=== PATIENT | female | born 1960 | race African-American/Black ===

== ENCOUNTER → 2016-06-09 | Outpatient (CLI) | payer OTHER ==
[~2016-06-09] MED LIST: ALBINS/ INH; ATOR-22 PO; ATR25 PO; CARV3.122 PO; DIGO0.122 PO; DIPH25TA24 PO; DSY/150 PO; FRS/40 PO; IBUP-1459 PO; LOSA1TAB PO; POTA20TA16 PO; RIVA1TAB4 PO
[2016-06-09 12:12] LABS: BASO % 0.1 %; BASO ABS # 0.02 K/uL (0-0.2); COMPLETE YES; EOS % 0.4 %; IG% 0.3 %; LYMPH % 12.1 %; LYMPH ABS # 2.43 K/uL (1.2-3.4); MEAN CELL VOLUME 87.2 fL (80-100); MEAN CORPUSCULAR HGB CONC 34.4 g/dl (32-36); MEAN PLATELET VOLUME 9.9 fL (7.4-10.4); MONO % 8.6 %; NEUT % 78.5 %; PLATELET COUNT 278 K/uL (130-400); WHITE BLOOD COUNT 20.11 K/uL (4.8-10.8)
[2016-06-09 12:20] LABS: INR 2.4 (0.9-1.1); PROTHROMBIN TIME (PATIENT) 27.1 SECONDS (9.0-12.0)
[2016-06-09 12:36] LABS: ALT/SGPT 16 U/L (12-78); AST/SGOT 8 U/L (15-37); BLOOD UREA NITROGEN 15 mg/dl (7-18); BUN/CREATININE RATIO 11.9 (10-20); CALCIUM 9.6 mg/dl (8.5-10.1); CARBON DIOXIDE 27 mmol/L (21-32); CHLORIDE 100 mmol/L (98-107); GLUCOSE 91 mg/dl (70-99); POTASSIUM 4.2 mmol/L (3.5-5.1); SODIUM 138 mmol/L (136-145)
[2016-06-09 12:39] LABS: ALB/GLOB RATIO 0.7 (0.9-2); ALKALINE PHOSPHATASE 95 U/L (45-117)
== END | disposition home or self-care (01) ==
LOC: C.LAB1850 11:13
PROVIDERS: ATTEND Internal Medicine
DX: M79.1 Myalgia (principal); I48.91 Unspecified atrial fibrillation; I50.22 Chronic systolic (congestive) heart failure; G47.00 Insomnia, unspecified; I25.5 Ischemic cardiomyopathy; I42.0 Dilated cardiomyopathy; M79.604 Pain in right leg

== ENCOUNTER → 2016-07-06 | Outpatient (CLI) | payer OTHER ==
--- NOTE | 2016-07-06 11:04 | DIAGNOSTIC IMAGING REPORT ---
CERVICAL SPINE 7 VIEWS HISTORY: Peripheral neuropathy R20.0 Left arm numbness COMPARISON: None. FINDINGS: The cervical spine is visualized from C1 through the superior endplate of T1. There is no fracture. No subluxation. Disc spaces are preserved. Prevertebral soft tissues and the atlantodens interval are intact. IMPRESSION: No fracture or subluxation within the cervical spine. Electronically signed by: Osmar Kapoor M.D. 07/06/2016 11:03 AM Dictated Date/Time: 07/06/2016 11:02 AM
== END | disposition home or self-care (01) ==
LOC: C.LAB1850 10:29
PROVIDERS: ATTEND Internal Medicine
DX: R20.0 Anesthesia of skin (principal)

== ENCOUNTER → 2016-08-16 | Outpatient (CLI) | payer OTHER ==
[2016-08-16 10:46] LABS: BASO % 0.3 %; BASO ABS # 0.03 K/uL (0-0.2); COMPLETE YES; EOS % 1.7 %; HEMATOCRIT 40.4 % (37-47); IG% 0.2 %; LYMPH % 25.5 %; LYMPH ABS # 2.49 K/uL (1.2-3.4); MEAN CELL VOLUME 84.5 fL (80-100); MEAN CORPUSCULAR HEMOGLOBIN 28.9 pg (25-34); MEAN CORPUSCULAR HGB CONC 34.2 g/dl (32-36); MEAN PLATELET VOLUME 9.8 fL (7.4-10.4); MONO % 8.7 %; NEUT % 63.6 %; PLATELET COUNT 270 K/uL (130-400); RED BLOOD COUNT 4.78 M/uL (4.2-5.4); WHITE BLOOD COUNT 9.76 K/uL (4.8-10.8)
[2016-08-16 11:13] LABS: ESTIMATED AVERAGE GLUCOSE 120 mg/dl; HA1C FLAG Normal (Normal)
[2016-08-16 11:41] LABS: ALKALINE PHOSPHATASE 76 U/L (45-117); ALT/SGPT 16 U/L (12-78); AST/SGOT 8 U/L (15-37); BLOOD UREA NITROGEN 14 mg/dl (7-18); BUN/CREATININE RATIO 16.6 (10-20); CALCIUM 8.9 mg/dl (8.5-10.1); CARBON DIOXIDE 34 mmol/L (21-32); CHLORIDE 101 mmol/L (98-107); CHOLESTEROL 212 mg/dl (0-200); CHOLESTEROL/HDL RATIO 3.4; CREATININE 0.87 mg/dl (0.60-1.20); GLUCOSE 90 mg/dl (70-99); HDL CHOLESTEROL 63 mg/dl; POTASSIUM 3.7 mmol/L (3.5-5.1); SODIUM 140 mmol/L (136-145)
[2016-08-16 11:47] LABS: ALB/GLOB RATIO 0.7 (0.9-2); LDL CHOLESTEROL CALCULATED 109 mg/dl; TRIGLYCERIDES 198 mg/dl (0-150); VERY LOW DENSITY LIPOPROT CALC 40 mg/dl
== END | disposition home or self-care (01) ==
LOC: C.LAB1850 09:42
PROVIDERS: ATTEND Urology
DX: Z51.81 Encounter for therapeutic drug level monitoring (principal); Z79.899 Other long term (current) drug therapy

== ENCOUNTER → 2016-10-08 | Outpatient (CLI) | payer OTHER ==
[2016-10-08 12:18] LABS: INR 1.6 (0.9-1.1); PROTHROMBIN TIME (PATIENT) 17.2 SECONDS (9.0-12.0)
== END | disposition home or self-care (01) ==
LOC: C.LAB1850 11:15
PROVIDERS: ATTEND Internal Medicine Cardiovascular Disease
DX: I48.91 Unspecified atrial fibrillation (principal)

== ENCOUNTER → 2017-02-16 | Outpatient (CLI) | payer OTHER ==
--- NOTE | 2017-02-16 11:50 | DIAGNOSTIC IMAGING REPORT ---
RIGHT HIP UNILATERAL 2 VIEWS CLINICAL HISTORY: Right hip pain COMPARISON: None. DISCUSSION: No acute fractures or dislocations are visualized. Mild periosteal irregularity just inferior to the lesser trochanter, likely relates to an insertion site. IMPRESSION: 1. No acute fractures or subluxations 2. Normal joint space for age Electronically signed by: Amrit Benitez M.D. 02/16/2017 11:49 AM Dictated Date/Time: 02/16/2017 11:48 AM
== END | disposition home or self-care (01) ==
LOC: C.RAD1850 11:36
PROVIDERS: ATTEND Physician Assistant
DX: M25.551 Pain in right hip (principal)

== ENCOUNTER → 2017-07-04 | Day surgery (SDC) | payer OTHER ==
[2017-06-21 10:48] VITALS: Ht 172.7 cm; Wt 117.3 kg
[~2017-07-04] VITALS: Ht 172.7 cm; Wt 117.3 kg
[~2017-07-04] MED LIST changes: -ALBINS/ INH; -ATOR-22 PO; +ATOR10TA82 PO; -ATR25 PO; +CLEANSE PO; -DIGO0.122 PO; +DIPH1TAB87 PO; -DIPH25TA24 PO; +DOCU-94 PO; -DSY/150 PO; +ETOMIDATE 2 MG/ML 20 ML VIAL IV ONE; +GABA1CAP5 PO; +GLC/500 PO; +HYDR50CA2 PO; -IBUP-1459 PO; +LIDOCAINE HCL 2% 2 ML VIAL (20MG/ML) ONE; +LNX125 PO; -LOSA1TAB PO; +MIDAZOLAM HCL 1 MG/ML 2ML VIAL ONE; +ONDANSETRON INJ 2 MG/ML 2 ML VIAL ONE; -POTA20TA16 PO; +PRLSR20 PO; +PROPOFOL IV EMULSION 10 MG/ML 20 ML VIAL IV ONE; +QUET1TAB32 PO; +QUET1TAB37 PO; +SPIR25TA PO; +TRAZ-122 PO; +[UNRECOGNIZED DRUG - OTHER] PO
--- NOTE | 2017-07-04 08:41 | Endo History and Physical ---
History & Physical Date of Service: Jul 04, 2017. Chief Complaint: Screening Referring Physician: Dr. Gayle History of Present Illness 56 yo female who presents for screening colonoscopy. Past Surgical History Hx Cardiac Surgery: Yes (DEFIB) Hx Internal Defibrillator: Yes ([employer] 2006) Hx Pacemaker: No Hx Abdominal Surgery: Yes (FALLOPIAN TUBE REMOVAL, HERNIA REPAIR X2) Hx of Implantable Prosthesis: No Hx Post-Op Nausea and Vomiting: No Hx Cancer Surgery: No Hx Thoracic Surgery: No Hx Orthopedic: Yes (LT ANKLE SURGERY) Hx Urinary Tract Surgery: No Family History None Social History Smoking Status: Former Smoker Hx Substance Use: No Hx Alcohol Use: Yes (OCCASIONAL) Allergies Coded Allergies: Fentanyl (Verified Allergy, Mild, RASH, 06/21/17) Current Medications Reported Home Medications Medications Dose Route/Sig Max Daily Dose Days Date Category Prilosec (Omeprazole) 20 Mg Capcr 20 Mg PO QAM 06/21/17 Reported [Cleanse] 2 Tab PO HS 06/21/17 Reported [Forskolin Extract] 2 Tab PO QAM 06/21/17 Reported Benadryl Allergy (Diphenhydramine Hcl) 25 Mg Tab 1 Tab PO QAM 06/21/17 Reported Aldactone (Spironolactone) 25 Mg Tab 0.5 Tab PO QAM 06/21/17 Reported Digoxin 0.125 Mg Tab 1 Tab PO QAM 06/21/17 Reported Vistaril (Hydroxyzine Pamoate) 50 Mg Cap 50 Mg PO HS 06/21/17 Reported Seroquel (Quetiapine Fumarate) 300 Mg Tab 300 Mg PO HS 06/21/17 Reported Seroquel (Quetiapine Fumarate) 50 Mg Tab 50 Mg PO QAM 06/21/17 Reported Colace (Docusate Sodium) 100 Mg Cap 1 Cap PO BID 06/21/17 Reported Glucophage (Metformin Hcl) 500 Mg Tab 500 Mg PO BID 06/21/17 Reported Neurontin (Gabapentin) 400 Mg Cap 400 Mg PO BID 06/21/17 Reported Lipitor (Atorvastatin Calcium) 10 Mg Tab 10 Mg PO QAM 06/21/17 Reported Desyrel (Trazodone Hcl) 100 Mg Tab 100 Mg PO HS 06/21/17 Reported Xarelto (Rivaroxaban) 20 Mg Tab 20 Mg PO QAM 01/12/16 Reported Coreg (Carvedilol) 3.125 Mg Tab 3.125 Mg PO QAM 08/12/09 Reported Lasix (Furosemide) 40 Mg Tab 40 Mg PO BID 08/06/09 Reported Vital Signs Weight (Kilograms): 117.27 Height (Feet): 5 Height (Inches): 8 Physical Exam General Appearance: WD/WN, no apparent distress Respiratory/Chest: Auscultation: breath sounds normal Cardiovascular: Heart Auscultation: RRR Abdomen: Bowel Sounds: normal Inspection & Palpation: soft, non-distended, no tenderness, guarding & rebound Assessment and Plan Assessment: 56 yo female who presents for screening colonoscopy. Plan: Proceed with colonoscopy.
--- NOTE | 2017-07-04 10:06 | Discharge Instructions ---
Endoscopy Patient Instructions Date / Procedure(s) Performed Jul 04, 2017. Colonoscopy Allergy Information Coded Allergies: Fentanyl (Verified Allergy, Mild, RASH, 06/21/17) Discharge Date / Findings Jul 04, 2017. Diverticulosis Fair bowel prep Medication Instructions Stopped Medication(s): Jeyralmoriah last 07/02 OK to resume all medications today as prescribed Reported Home Medications Medications Dose Route/Sig Max Daily Dose Days Date Category Prilosec (Omeprazole) 20 Mg Capcr 20 Mg PO QAM 06/21/17 Reported [Cleanse] 2 Tab PO HS 06/21/17 Reported [Forskolin Extract] 2 Tab PO QAM 06/21/17 Reported Benadryl Allergy (Diphenhydramine Hcl) 25 Mg Tab 1 Tab PO QAM 06/21/17 Reported Aldactone (Spironolactone) 25 Mg Tab 0.5 Tab PO QAM 06/21/17 Reported Digoxin 0.125 Mg Tab 1 Tab PO QAM 06/21/17 Reported Vistaril (Hydroxyzine Pamoate) 50 Mg Cap 50 Mg PO HS 06/21/17 Reported Seroquel (Quetiapine Fumarate) 300 Mg Tab 300 Mg PO HS 06/21/17 Reported Seroquel (Quetiapine Fumarate) 50 Mg Tab 50 Mg PO QAM 06/21/17 Reported Colace (Docusate Sodium) 100 Mg Cap 1 Cap PO BID 06/21/17 Reported Glucophage (Metformin Hcl) 500 Mg Tab 500 Mg PO BID 06/21/17 Reported Neurontin (Gabapentin) 400 Mg Cap 400 Mg PO BID 06/21/17 Reported Lipitor (Atorvastatin Calcium) 10 Mg Tab 10 Mg PO QAM 06/21/17 Reported Desyrel (Trazodone Hcl) 100 Mg Tab 100 Mg PO HS 06/21/17 Reported Xarelto (Rivaroxaban) 20 Mg Tab 20 Mg PO QAM 01/12/16 Reported Coreg (Carvedilol) 3.125 Mg Tab 3.125 Mg PO QAM 08/12/09 Reported Lasix (Furosemide) 40 Mg Tab 40 Mg PO BID 08/06/09 Reported Provider Instructions Activity Restrictions - No exercising or heavy lifting for 24 hours. - Do not drink alcohol the day of the procedure. - Do not drive a car or operate machinery until the day after the procedure. - Do not make any important decisions or sign important papers in 24 hours after the procedure. Following Day: - Return to full activity which may include returning to work/school. Diet Start your diet with liquids and light foods (jello, soup, juice, toast). Then eat your usual diet if not nauseated. Treatment For Common After Affects For mild abdominal pain, bloating, or excessive gas: - Rest - Eat lightly - Lie on right side Follow-Up Information Follow-up with Nalini as scheduled Anesthesia Information What You Should Know You have had a procedure that required some medicine to reduce anxiety and discomfort. This treatment is called moderate sedation. After receiving the treatment, you may be sleepy, but you will be able to breathe on your own. The effects of the treatment may last for several hours. Follow these instructions along with Activity/Diet recommendations noted above: * Do NOT do anything where dizziness or clumsiness would be dangerous. * Rest quietly at home today, then you can be up and about tomorrow. * Have a responsible person stay with you the rest of today. * You may have had an I.V. today. If so, you may take the dressing off later today. Recommendations Call your doctor if: * Trouble breathing * Continuous vomiting for more than 24 hours * Temperature above 101 degrees * Severe abdominal pain or bloating * Pain not relieved by pain medicine ordered * There is increased drainage or redness from any incision * A large amount of rectal bleeding greater than 2-3 tablespoons. (If you had a polyp/s removed or have hemorrhoids, a small amount of blood - from the rectum is to be expected.) * You have any unanswered questions or concerns. IN THE EVENT OF A SERIOUS EMERGENCY, GO TO THE NEAREST EMERGENCY ROOM Your discharge instructions were prepared by provider Harmeet Can. Patient Instructions Signature Page Grazyna Carson Patient (or Guardian) Signature/Date: I have read and understand the instructions given to me by my caregivers. Caregiver/RN/Doctor Signature/Date: The above-named patient and/or guardian has received patient instructions on this date. + Original Patient Signature Page (only) stays with chart. Please make copy for patient.
--- NOTE | 2017-07-04 10:16 | GI REPORT ---
Procedure Date: 07/04/2017 9:36 AM Procedure: Colonoscopy Indications: Screening for colorectal malignant neoplasm Medicines: Monitored Anesthesia Care Complications: No immediate complications. Estimated Blood Loss: Estimated blood loss: none. Procedure: Pre-Anesthesia Assessment: - Prior to the procedure, a History and Physical was performed, and patient medications and allergies were reviewed. The patient's tolerance of previous anesthesia was also reviewed. The risks and benefits of the procedure and the sedation options and risks were discussed with the patient. All questions were answered, and informed consent was obtained. Prior Anticoagulants: The patient has taken Xarelto (rivaroxaban), last dose was 2 days prior to procedure. ASA Grade Assessment: IV - A patient with severe systemic disease that is a constant threat to life. After reviewing the risks and benefits, the patient was deemed in satisfactory condition to undergo the procedure. After I obtained informed consent, the scope was passed under direct vision. Throughout the procedure, the patient's blood pressure, pulse, and oxygen saturations were monitored continuously. The scope was introduced through the anus and advanced to the cecum, identified by appendiceal orifice and ileocecal valve. The colonoscopy was performed without difficulty. The patient tolerated the procedure well. The quality of the bowel preparation was fair. The ileocecal valve, appendiceal orifice, and rectum were photographed. Findings: The perianal and digital rectal examinations were normal. A moderate amount of solid stool was found in the cecum, precluding visualization. Lavage of the area was performed using a large amount of normal saline, resulting in incomplete clearance with continued poor visualization. Multiple small-mouthed diverticula were found in the entire colon. Impression: - Preparation of the colon was fair. - Stool in the cecum. - Diverticulosis in the entire examined colon. - No specimens collected. Recommendation: - Resume previous diet. - Continue present medications. - Repeat colonoscopy in 3 years for surveillance. - Return to primary care physician as previously scheduled. Harmeet Can, DO 07/04/2017 10:15:38 AM This report has been signed electronically. Note Initiated On: 07/04/2017 9:36 AM I attest to the content of the Intraoperative Record and orders documented therein, exceptions below
[2017-07-04 10:39] VITALS: BP 106/71; PULSE 96; O2SAT 95
--- NOTE | 2017-07-04 10:50 | Anesthesiology Progress Note ---
Anesthesia Post Op Note Date & Time Jul 04, 2017 at 10:50 Vital Signs Pain Intensity: 0 Vital Signs Past 12 Hours Date Time Temp Pulse Resp B/P (MAP) Pulse Ox O2 Delivery O2 Flow Rate FiO2 07/04/17 10:39 96 20 106/71 (83) 95 Room Air 07/04/17 10:25 92 20 112/75 (87) 95 Room Air 07/04/17 10:09 92 16 108/69 (82) 98 Mask 4 07/04/17 08:39 36.6 101 20 122/94 (103) 94 Room Air Notes Mental Status: alert / awake / arousable, participated in evaluation Pt Amnestic to Procedure: Yes Nausea / Vomiting: adequately controlled Pain: adequately controlled Airway Patency, RR, SpO2: stable & adequate BP & HR: stable & adequate Hydration State: stable & adequate Anesthetic Complications: no major complications apparent
== END | disposition home or self-care (01) ==
LOC: C.GI 08:00
PROVIDERS: ATTEND Internal Medicine
DX: Z12.11 Encounter for screening for malignant neoplasm of colon (principal); K57.30 Diverticulosis of large intestine without perforation or abscess without bleeding; I42.9 Cardiomyopathy, unspecified; Z79.01 Long term (current) use of anticoagulants; Z87.891 Personal history of nicotine dependence

== ENCOUNTER 2017-07-06 12:04 | Emergency (ER) | payer OTHER ==
[~2017-07-06] VITALS: Ht 172.7 cm; Wt 117.6 kg
[~2017-07-06 12:04] MED LIST changes: -ETOMIDATE 2 MG/ML 20 ML VIAL IV ONE; -LIDOCAINE HCL 2% 2 ML VIAL (20MG/ML) ONE; -MIDAZOLAM HCL 1 MG/ML 2ML VIAL ONE; -ONDANSETRON INJ 2 MG/ML 2 ML VIAL ONE; -PROPOFOL IV EMULSION 10 MG/ML 20 ML VIAL IV ONE
[2017-07-06 12:12] VITALS: TEMP 36.4; Ht 172.7 cm; Wt 117.6 kg
[2017-07-06] MEDS ORDERED: LOSA1TAB PO (12:32)
--- NOTE | 2017-07-06 12:47 | EMERGENCY ROOM VISIT NOTE ---
History Report prepared by Pepe: Rober Burnette Under the Supervision of: Dr. Neno Chung M.D. First contact with patient: 12:40 Chief Complaint: ARM PAIN Stated Complaint: BLOOD CLOTS, ARM & TOE NAIL History of Present Illness The patient is a 56 year old female who presents to the Emergency Room with complaints of blood clots in her hands and feet that started 6 hours ago. The patient states she had a colonoscopy 2 days ago. The patient states she is regularly taking Xarelto for congestive heart failure and states she has an enlarged heart. She states she has not missed a dose of her medication. She denies, fevers, chills, cough, and congestion. She states her SOB is unchanged from baseline. Source of History: patient Onset: 6 hours ago Position: hand, foot Timing: constant Associated Symptoms: + SOB (unchanged from baseline), No fevers, No chills, No cough Note: Patient denies congestion. Review of Systems See HPI for pertinent positives and negatives. A total of ten systems were reviewed and were otherwise negative. 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 (12) Schizoaffective Disorder, Unspecified Surgical Problems: (1) Aortocoronary Bypass (2) Cardiac Pacemaker In Situ Social History Smoking Status: Former Smoker Occupation Status: employed Current/Historical Medications Scheduled Atorvastatin (Lipitor), 10 MG PO QAM Carvedilol (Coreg), 3.125 MG PO QAM Digoxin (Digoxin), 1 TAB PO QAM Diphenhydramine Hcl (Benadryl Allergy), 1 TAB PO QAM Docusate Sodium (Colace), 1 CAP PO BID Furosemide (Lasix), 40 MG PO BID Gabapentin (Neurontin), 400 MG PO BID Hydrocortisone Acetate (Rectal (Anusol-Hc), 1 SUPP PA BID Hydroxyzine Pamoate (Vistaril), 50 MG PO HS Losartan Potassium (Cozaar), 25 MG PO DAILY Metformin Hcl (Glucophage), 500 MG PO BID Omeprazole (Prilosec), 20 MG PO QAM Quetiapine Fumarate (Seroquel), 50 MG PO QAM Quetiapine Fumarate (Seroquel), 300 MG PO HS Rivaroxaban (Xarelto), 20 MG PO QAM Spironolactone (Aldactone), 0.5 TAB PO QAM Trazodone Hcl (Desyrel), 100 MG PO HS Allergies Coded Allergies: Fentanyl (Verified Allergy, Mild, RASH, 07/06/17) Physical Exam Vital Signs Date Time Temp Pulse Resp B/P (MAP) Pulse Ox O2 Delivery O2 Flow Rate FiO2 07/06/17 15:44 90 18 126/79 94 07/06/17 13:34 94 18 122/79 94 Room Air 07/06/17 12:12 36.4 95 18 107/64 94 Room Air Physical Exam GENERAL: Awake, alert, well-appearing, in no distress HENT: Normocephalic, atraumatic. Oropharynx unremarkable. EYES: Normal conjunctiva. Sclera non-icteric. NECK: Supple. No nuchal rigidity. FROM. No JVD. RESPIRATORY: Clear to auscultation. CARDIAC: Regular rate, normal rhythm. Extremities warm and well perfused. Pulses equal. ABDOMEN: Soft, non-distended. No tenderness to palpation. No rebound or guarding. No masses. RECTAL: Deferred. MUSCULOSKELETAL: Chest examination reveals no tenderness. The back is symmetrical on inspection without obvious abnormality. There is no CVA tenderness to palpation. No joint edema. 2 cm contusion with area fluctuance on area of lateral aspect of right forearm consistent with hematoma. Distal PNS in tact. No proximal swelling or pain. LOWER EXTREMITIES: Calves are equal size bilaterally and non-tender. No edema. No discoloration. NEURO: Normal sensorium. No sensory or motor deficits noted. SKIN: No rash or jaundice noted. Medical Decision & Procedures ER Provider Diagnostic Interpretation: Radiology results as stated below per my review and radiologist interpretation: ULTRASOUND RIGHT UPPER EXTREMITY VENOUS CLINICAL HISTORY: Right arm pain and swelling. COMPARISON STUDY: No priors. TECHNIQUE: Real-time, grayscale, and color Doppler sonography of the deep veins of the right upper extremity is performed. Compression and augmentation were utilized. FINDINGS: There is no sonographic evidence of deep venous thrombosis identified in the right upper extremity. The right internal jugular, axillary, and brachial veins are patent and normally compressible. Normal venous waveforms and augmentation are seen within the right subclavian vein. The cephalic and basilic veins are clear. The visualized radial and ulnar veins are patent. IMPRESSION: There is no sonographic evidence of deep venous thrombosis identified in the right upper extremity. Electronically signed by: Sunny Williamson M.D. 07/06/2017 2:30 PM Dictated Date/Time: 07/06/2017 2:30 PM ED Course 1240: The patient was evaluated in room B10. A complete history and physical exam was performed. 1441: I reevaluated the patient. Discussed results and discharge instructions: She verbalized understanding and agreement. The patient is ready for discharge. Medical Decision I reviewed the patient's past medical history, medications, and the nursing notes as described above. The patient's presentation and history were concerning for hematoma, contusion, superficial thrombosis, and deep vein thrombosis. The patient is a 56-year-old woman with a past medical history of CHF, A. fib on Xarelto who presents emergency Department with concern for pain and swelling in her right arm after having an IV placed for a colonoscopy 2 days prior to arrival per hpi. On arrival the patient is in no acute distress, afebrile stable vital signs. The patient has a 2 cm area of ecchymosis with underlying fluctuance consistent with a hematoma in her right AC from recent IV attempt. No proximal swelling or pain. Duplex negative for DVT. Plan for warm compress, NIKO bandage, and pcp f/u. As an aside, patient is requesting Rx for hydrocortisone suppository for itching related to her chronic hemorrhoids. Findings and plan for follow-up reviewed with patient. Patient agreeable and d/c 'd per discharge instructions. Medication Reconcilliation Current Medication List: was personally reviewed by me Blood Pressure Screening Patient's blood pressure: Normal blood pressure Blood pressure disposition: Did not require urgent referral Impression Primary Impression: Hematoma of arm Scribe Attestation The scribe's documentation has been prepared under my direction and personally reviewed by me in its entirety. I confirm that the note above accurately reflects all work, treatment, procedures, and medical decision making performed by me. Departure Information Dispostion Home / Self-Care Prescriptions Hydrocortisone Acetate (Rectal (ANUSOL-HC) 25 Mg Sup 1 SUPP PA BID for 14 Days, #28 SUPP Prov: Neno Chung M.D. 07/06/17 Referrals RV. Roper MD (PCP) Patient Instructions ED Hematoma, [facility] Additional Instructions Please follow up with your primary care physician in the next 1-3 days for re- evaluation. You have a small hematoma from your recent blood draw. Otherwise, your exam and ultrasound did not show signs of an emergent condition at this time. Acetaminophen for pain as needed. Warm compresses and niko bandage to help with resolution of hematoma. Return to the emergency department for worsening symptoms as described in the accompanying instructions.
--- NOTE | 2017-07-06 14:32 | DIAGNOSTIC IMAGING REPORT ---
ULTRASOUND RIGHT UPPER EXTREMITY VENOUS CLINICAL HISTORY: Right arm pain and swelling. COMPARISON STUDY: No priors. TECHNIQUE: Real-time, grayscale, and color Doppler sonography of the deep veins of the right upper extremity is performed. Compression and augmentation were utilized. FINDINGS: There is no sonographic evidence of deep venous thrombosis identified in the right upper extremity. The right internal jugular, axillary, and brachial veins are patent and normally compressible. Normal venous waveforms and augmentation are seen within the right subclavian vein. The cephalic and basilic veins are clear. The visualized radial and ulnar veins are patent. IMPRESSION: There is no sonographic evidence of deep venous thrombosis identified in the right upper extremity. Electronically signed by: Sunny Williamson M.D. 07/06/2017 2:30 PM Dictated Date/Time: 07/06/2017 2:30 PM
[2017-07-06] MEDS ORDERED: HYDR25SU20 PR (15:07)
[2017-07-06 15:44] VITALS: BP 126/79; PULSE 90; O2SAT 94
== END 2017-07-06 15:45 | disposition home or self-care (01) ==
LOC: C.EDB 12:07
DX: T14.8XXA Other injury of unspecified body region, initial encounter (principal); X58.XXXA Exposure to other specified factors, initial encounter; F41.9 Anxiety disorder, unspecified; J45.909 Unspecified asthma, uncomplicated; F31.9 Bipolar disorder, unspecified; I50.9 Heart failure, unspecified; I10 Essential (primary) hypertension; F43.10 Post-traumatic stress disorder, unspecified; E78.00 Pure hypercholesterolemia, unspecified; F32.9 Major depressive disorder, single episode, unspecified; F25.9 Schizoaffective disorder, unspecified; Z87.891 Personal history of nicotine dependence

== ENCOUNTER → 2017-09-16 | Day surgery (SDC) | payer OTHER ==
[2017-08-19 10:53] VITALS: BMI 39.0
--- NOTE | 2017-08-19 11:23 | PAT Medication Instructions ---
Service Date Aug 19, 2017. Current Home Medication List Atorvastatin (Lipitor), 10 MG PO QAM Carvedilol (Coreg), 3.125 MG PO BID Digoxin (Digoxin), 1 TAB PO QAM Diphenhydramine Hcl (Benadryl Allergy), 1 TAB PO QAM Docusate Sodium (Colace), 1 CAP PO BID Furosemide (Lasix), 40 MG PO BID Gabapentin (Neurontin), 400 MG PO BID Hydroxyzine Pamoate (Vistaril), 50 MG PO HS Losartan Potassium (Cozaar), 25 MG PO QAM Metformin Hcl (Glucophage), 500 MG PO BID Omeprazole (Prilosec), 20 MG PO QAM Quetiapine Fumarate (Seroquel), 50 MG PO QAM Quetiapine Fumarate (Seroquel), 300 MG PO HS Rivaroxaban (Xarelto), 20 MG PO QAM Spironolactone (Aldactone), 0.5 TAB PO QAM Trazodone Hcl (Desyrel), 200 MG PO HS Medication Instructions For Your Scheduled Surgery - Check with surgeon and prescribing physician for instructions: Rivaroxaban (Xarelto), 20 MG PO QAM - Hold the following medications the morning of surgery: Diphenhydramine Hcl (Benadryl Allergy), 1 TAB PO QAM Docusate Sodium (Colace), 1 CAP PO BID Furosemide (Lasix), 40 MG PO BID Losartan Potassium (Cozaar), 25 MG PO QAM Metformin Hcl (Glucophage), 500 MG PO BID Spironolactone (Aldactone), 0.5 TAB PO QAM - Take the following medications the morning of surgery with a sip of water: Quetiapine Fumarate (Seroquel), 50 MG PO QAM Omeprazole (Prilosec), 20 MG PO QAM Gabapentin (Neurontin), 400 MG PO BID Digoxin (Digoxin), 1 TAB PO QAM Carvedilol (Coreg), 3.125 MG PO BID Atorvastatin (Lipitor), 10 MG PO QAM - Take the following medications as scheduled the night before surgery: Trazodone Hcl (Desyrel), 200 MG PO HS Quetiapine Fumarate (Seroquel), 300 MG PO HS Hydroxyzine Pamoate (Vistaril), 50 MG PO HS Gabapentin (Neurontin), 400 MG PO BID Docusate Sodium (Colace), 1 CAP PO BID Carvedilol (Coreg), 3.125 MG PO BID If you have any questions please call us at [phone] or [phone] or [phone]
[2017-08-19 12:08] LABS: BASO % 0.2 %; BASO ABS # 0.02 K/uL (0-0.2); EOS % 2.6 %; EOS ABS # 0.23 K/uL (0-0.5); HEMATOCRIT 39.1 % (37-47); IG# 0.02 K/uL (0.00-0.02); MEAN CELL VOLUME 85.4 fL (80-100); MEAN CORPUSCULAR HEMOGLOBIN 28.4 pg (25-34); MEAN CORPUSCULAR HGB CONC 33.2 g/dl (32-36); MEAN PLATELET VOLUME 9.2 fL (7.4-10.4); MONO % 4.2 %; MONO ABS # 0.37 K/uL (0.11-0.59); NEUT % 66.8 %; NEUT ABS # 5.92 K/uL (1.4-6.5); PLATELET COUNT 320 K/uL (130-400); RED CELL DISTRIBUTION WIDTH CV 15.1 % (11.5-14.5); RED CELL DISTRIBUTION WIDTH SD 47.1 fL (36.4-46.3); WHITE BLOOD COUNT 8.86 K/uL (4.8-10.8)
[2017-08-19 12:19] LABS: INR 1.2 (0.9-1.1)
[2017-08-19 12:27] LABS: HEMOGLOBIN A1C 6.1 % (4.5-5.6)
[2017-08-19 13:07] LABS: CALCIUM 9.4 mg/dl (8.5-10.1); CREATININE 0.84 mg/dl (0.60-1.20); POTASSIUM 3.9 mmol/L (3.5-5.1)
--- NOTE | 2017-09-15 10:01 | HISTORY & PHYSICAL EXAMINATION ---
DATE OF ADMISSION: 09/16/2017 CHIEF COMPLAINT AND PREOPERATIVE DIAGNOSIS: Cubital tunnel syndrome of the left elbow. HISTORY OF PRESENT ILLNESS: Grazyna is a 56-year-old female who has been having numbness in the ulnar nerve distribution of her hand for about a year. Over the past 2 months, it has gotten to the point where it is constantly numb. It wakes her up on a nightly basis. EMG showed bilateral cubital tunnel syndrome. After failing conservative treatment, she elected to proceed with open cubital tunnel release in situ. PAST MEDICAL HISTORY: Significant for heart disease, rheumatoid arthritis, mental disorders, and blood clots. PAST SURGICAL HISTORY: Significant for surgery to her ankle and defibrillator placement. ALLERGIES: FENTANYL. MEDICATIONS: Include gabapentin, metformin, Colace, trazodone, Seroquel, Vistaril, Coreg, digoxin, atorvastatin, Lasix, spironolactone, Xarelto, Benadryl, losartan, omeprazole. FAMILY HISTORY: Significant for heart disease and blood clots. SOCIAL HISTORY: She is , rarely drinks. Does little activity and is currently disabled. REVIEW OF SYSTEMS: She complains mostly of numbness in her left hand. All other pertinent review of systems are negative. PHYSICAL EXAMINATION: CONSTITUTIONAL: Well-developed, well-nourished female, in no apparent distress. HEENT: Pupils equal, round, reactive to light. Extraocular movements intact. Oral mucosa is pink and moist. HEART: Regular rate per radial pulse. LUNGS: Carmen symmetrically bilaterally with no audible breath sounds. ABDOMEN: Soft, nontender, nondistended. MUSCULOSKELETAL: On physical examination of her elbow, she has full range of motion. She does have a positive Tinel sign at the cubital tunnel. She has numbness that extends up the ulnar nerve distribution into the left hand. Spurling and Lhermitte sign is negative. EMG study of the left upper extremity does show compressive neuropathy of the ulnar nerve at the cubital tunnel of the left elbow. IMPRESSION: Cubital tunnel syndrome of the left elbow. PLAN: Will proceed with an open cubital tunnel release in situ. Postoperatively, she will be placed in a soft dressing and discharged to home on oral pain medications.
[~2017-09-16] VITALS: Ht 172.7 cm; Wt 115.8 kg
[~2017-09-16] MED LIST changes: +ACETAMINOPHEN 500 MG TAB PO SCH; +ATROPINE SULFATE 0.1 MG/ML 5ML SYR IV PRN; +BUPIVACAINE 0.25% 30 ML VIAL ONE; +CEFAZOLIN 2000MG IV PUSH 15 ML IV SCH; -CLEANSE PO; +EpHEDrine SULFATE INJ 50 MG/ML AMP IV PRN; +EpINEphrine HCL INJ 1 MG/ML 1ML SYRINGE ONE; +EpINEphrine INJ 1MG/ML AMP 1 MG/ML AMP ONE; +FAMOTIDINE 20 MG TAB PO SCH; +FLUMAZENIL 0.1 MG/1 ML 10 ML VIAL IV PRN; +GABA-1220 PO; -GABA1CAP5 PO; +GABAPENTIN 600 MG PO SCH; +HYDROmorphone INJ 2 MG/ML SYR/VIAL IV PRN; +KETOROLAC TROMETHAMINE 30 MG/ML VIAL IV. PRN; +LABETALOL HCL IV 5 MG/ML 20ML IV PRN; +LACTATED RINGER'S 1000ML 1,000 ML IV SCH; +LACTATED RINGER'S 1000ML IV SCH; +LIDOCAINE HCL 2% 2 ML VIAL (20MG/ML) ONE; +LOSA1TAB PO; +MIDAZOLAM HCL 1 MG/ML 2ML VIAL ONE; +NALOXONE HCL 0.4 MG/1 ML VIAL/CARP IV PRN; +ONDANSETRON INJ 2 MG/ML 2 ML VIAL IV PRN; +OXYC-57 PO; +OXYCODONE/ACETAMINOPHEN 5-325 TAB PO PRN; +PROMETHAZINE HCL INJ 12.5 MG in SODIUM CHLORIDE 0.9% 50ML 50 ML IV PRN; +PROPOFOL IV EMULSION 10 MG/ML 20 ML VIAL IV ONE; +SODIUM CHLORIDE 0.9% 1000ML 1,000 ML IV SCH; -[UNRECOGNIZED DRUG - OTHER] PO; +[UNRECOGNIZED DRUG - REMARK] OPB
[2017-09-16 09:00] VITALS: BP 111/72; PULSE 91; TEMP 36.8; O2SAT 93; Ht 172.7 cm; Wt 115.8 kg
--- NOTE | 2017-09-16 11:03 | History & Physical Bridge Note ---
H&P Re-Evaluation Bridge Note: I have examined the patient, reviewed the History & Physical and in the interval since the performance of the History & Physical I have noted the following changes of clinical significance: No changes noted
--- NOTE | 2017-09-16 11:55 | [facility] Post Operative Brief Note ---
Immediate Operative Summary Operative Date Sep 16, 2017. Pre-Operative Diagnosis Left Cubital Tunnel Syndrome Post-Operative Diagnosis same as preop Procedure(s) Performed Left Cubital Tunnel Release Surgeon Dr Walls Reed Fixer Surgeon(s) Jose Luis Dwoling Pa-C Estimated Blood Loss 5 ml Findings Consistent with Post-Op Diagnosis Specimens None per surgeon Drains None Anesthesia Type General Complication(s) none Disposition Disposition: Recovery Room / PACU
--- NOTE | 2017-09-16 12:06 | Discharge Instructions ---
Discharge Instructions Date of Service Sep 16, 2017. Admission Reason for Admission: Left Wrist Cubital Tunnel Syndrome Discharge Discharge Diagnosis / Problem: SAME ABOVE Discharge Goals Goal(s): Decrease discomfort, Improve function Activity Recommendations Activity Limitations: as noted below Lifting Limitations: until after follow-up appointment Exercise/Sports Limitations: until after follow-up appointment Shower/Bathe: may shower/bathe in 3 days . Instructions / Follow-Up Instructions / Follow-Up MEDICATIONS: * Resume previous medications unless instructed otherwise by your surgeon. * Always take pain medication on a full stomach or with food to avoid upset stomach. * Do not drink alcohol or drive while taking narcotics. * Ibuprofen or Tylenol may be taken if narcotic not needed. SPECIAL CARE INSTRUCTIONS: __ None _X_ Keep extremity elevated and iced x 48 hours; apply ice 20-30 minutes 8-10 times/day. May remove at night. _X_ Sling (WEAR NEEDED FOR COMFORT) __24 hrs/day __ Remove at night __ Shoulder Immobilizer __ 24 hrs/day __ Remove at night _X_ Dressing __ Maintain until seen in office, may shower with plastic over site _X_ Remove dressings in 72 hours and then may shower _X_ Cover incisions with band-aids after showering __ Do not remove steri-strips Call physician if chills or temperature rises above 102 degrees or pain unrelieved by prescribed pain medications at . . Current Hospital Diet Patient's current hospital diet: Discharge Diet Recommended Diet: AHA Diet (Heart Healthy) Procedures Procedures Performed: Left Cubital Tunnel Release Pending Studies Studies pending at discharge: no Laboratory Results Hemoglobin A1c Test 08/19/17 11:31 Range/Units Estimated Average Glucose 128 mg/dl Hemoglobin A1c 6.1 H 4.5-5.6 % Work Instructions Return To Work: after follow-up Lifting Limitations: no more than 10 pounds Medical Emergencies . Who to Call and When: Medical Emergencies: If at any time you feel your situation is an emergency, please call 911 immediately. . Non-Emergent Contact Non-Emergency issues call your: Primary Care Provider Call Non-Emergent contact if: you have a fever, temperature is above 101.5 . "Provider Documentation" section prepared by Jose Luis Dowling. .
[2017-09-16 12:43] VITALS: BP 122/85; PULSE 96; TEMP 36.5; O2SAT 92
--- NOTE | 2017-09-16 13:00 | Anesthesiology Progress Note ---
Anesthesia Post Op Note Date & Time Sep 16, 2017 at 12:59 Vital Signs Pain Intensity: 7.0 Vital Signs Past 12 Hours Date Time Temp Pulse Resp B/P (MAP) Pulse Ox O2 Delivery O2 Flow Rate FiO2 09/16/17 12:43 36.5 96 18 122/85 92 Room Air 09/16/17 12:30 93 16 119/83 95 Room Air 09/16/17 12:20 93 16 121/82 99 Oxymask 7 09/16/17 12:10 95 16 120/87 95 Oxymask 7 09/16/17 12:00 36.7 98 16 121/89 97 Oxymask 7 09/16/17 09:00 36.8 91 20 111/72 (85) 93 Room Air Notes Mental Status: alert / awake / arousable, participated in evaluation Pt Amnestic to Procedure: Yes Nausea / Vomiting: adequately controlled Pain: adequately controlled Airway Patency, RR, SpO2: stable & adequate BP & HR: stable & adequate Hydration State: stable & adequate Anesthetic Complications: no major complications apparent
[2017-09-16 13:13] VITALS: BP 103/80; PULSE 90; TEMP 36.5; O2SAT 92
--- NOTE | 2017-09-16 13:14 | OPERATIVE REPORT ---
DATE OF OPERATION: 09/16/2017 PREOPERATIVE DIAGNOSIS: Cubital tunnel syndrome of the left elbow. POSTOPERATIVE DIAGNOSIS: Same. PROCEDURE: Open cubital tunnel release in situ. SURGEON: Giuseppe Walls DO SOFTWARE MANAGER: Brandan Dowling PA-C, whose assistance was necessary for positioning are palpable with retraction and closure. ANESTHESIA: General. COMPLICATIONS: None. CONDITION: Stable to PACU. INDICATIONS: Grazyna is a pleasant 56-year-old female who presented to my office with complaints of numbness and paresthesias in the ulnar nerve distribution of her left arm. EMG study showed cubital tunnel syndrome of the left elbow. After failing extensive conservative treatment, she elected to undergo an open cubital tunnel release. On 09/16/2017, she arrived at [facility] for the above procedure. She was seen in preoperative holding and the operative extremity was identified and signed. She was given a preoperative antibiotic, taken back to the operating room, laid on the table in supine position and put under general anesthesia. The left elbow was prepped and draped in sterile fashion. Time-out was done. The patient's operative extremity was properly identified. A curvilinear incision was made directly over the cubital tunnel of the left elbow. Dissection was taken down through the fat layer until the fascia was exposed. Hardy's fascia was then released with a knife and tenotomy scissors. Care was taken not to damage the ulnar nerve. Fascia was released both proximally and distally through the flexor pronator mass. Complete release was ensured both proximally and distally. After the ulnar nerve was completely freed up, I flexed the elbow to 140 degrees and there was no subluxation of the ulnar nerve. Once again, I checked both proximally and distally and the nerve was completely freed up. The wound was then irrigated. Surrounding soft tissues were injected with 30 mL of 0.25% Marcaine with epinephrine. The tourniquet was deflated. Hemostasis was controlled. Skin was closed with 3-0 Vicryl and a 4-0 nylon suture in a mattress fashion. She was placed in a soft compressive dressing, extubated, transferred to a [facility] and taken to the postanesthesia care unit in stable condition. She tolerated the procedure well. I attest to the content of the Intraoperative Record and any orders documented therein. Any exception s are noted below.
== END | disposition home or self-care (01) ==
LOC: C.ACU 08:32
PROVIDERS: ATTEND Orthopaedic Surgery
DX: G56.22 Lesion of ulnar nerve, left upper limb (principal); I10 Essential (primary) hypertension; M06.9 Rheumatoid arthritis, unspecified; Z79.01 Long term (current) use of anticoagulants; Z86.711 Personal history of pulmonary embolism; F41.9 Anxiety disorder, unspecified; K21.9 Gastro-esophageal reflux disease without esophagitis; Z98.51 Tubal ligation status; Z88.5 Allergy status to narcotic agent; I50.9 Heart failure, unspecified; I48.91 Unspecified atrial fibrillation; E78.5 Hyperlipidemia, unspecified; F31.9 Bipolar disorder, unspecified; Z87.891 Personal history of nicotine dependence

== ENCOUNTER → 2017-10-14 | Outpatient (CLI) | payer OTHER ==
[~2017-10-14] MED LIST changes: -ACETAMINOPHEN 500 MG TAB PO SCH; -ATROPINE SULFATE 0.1 MG/ML 5ML SYR IV PRN; -BUPIVACAINE 0.25% 30 ML VIAL ONE; -CEFAZOLIN 2000MG IV PUSH 15 ML IV SCH; -EpHEDrine SULFATE INJ 50 MG/ML AMP IV PRN; -EpINEphrine HCL INJ 1 MG/ML 1ML SYRINGE ONE; -EpINEphrine INJ 1MG/ML AMP 1 MG/ML AMP ONE; -FAMOTIDINE 20 MG TAB PO SCH; -FLUMAZENIL 0.1 MG/1 ML 10 ML VIAL IV PRN; +FORSKOLIN PO; -GABAPENTIN 600 MG PO SCH; -HYDROmorphone INJ 2 MG/ML SYR/VIAL IV PRN; -KETOROLAC TROMETHAMINE 30 MG/ML VIAL IV. PRN; -LABETALOL HCL IV 5 MG/ML 20ML IV PRN; -LACTATED RINGER'S 1000ML 1,000 ML IV SCH; -LACTATED RINGER'S 1000ML IV SCH; -LIDOCAINE HCL 2% 2 ML VIAL (20MG/ML) ONE; -MIDAZOLAM HCL 1 MG/ML 2ML VIAL ONE; -NALOXONE HCL 0.4 MG/1 ML VIAL/CARP IV PRN; -ONDANSETRON INJ 2 MG/ML 2 ML VIAL IV PRN; -OXYCODONE/ACETAMINOPHEN 5-325 TAB PO PRN; -PROMETHAZINE HCL INJ 12.5 MG in SODIUM CHLORIDE 0.9% 50ML 50 ML IV PRN; -PROPOFOL IV EMULSION 10 MG/ML 20 ML VIAL IV ONE; -SODIUM CHLORIDE 0.9% 1000ML 1,000 ML IV SCH
[2017-10-14 12:31] LABS: BASO % 0.2 %; BASO ABS # 0.02 K/uL (0-0.2); EOS % 1.4 %; EOS ABS # 0.12 K/uL (0-0.5); HEMATOCRIT 39.2 % (37-47); IG# 0.01 K/uL (0.00-0.02); LYMPH ABS # 2.37 K/uL (1.2-3.4); MEAN CORPUSCULAR HEMOGLOBIN 28.2 pg (25-34); MEAN CORPUSCULAR HGB CONC 33.2 g/dl (32-36); MEAN PLATELET VOLUME 9.6 fL (7.4-10.4); MONO ABS # 0.59 K/uL (0.11-0.59); NEUT % 63.3 %; NEUT ABS # 5.36 K/uL (1.4-6.5); PLATELET COUNT 281 K/uL (130-400); RED CELL DISTRIBUTION WIDTH CV 15.9 % (11.5-14.5); RED CELL DISTRIBUTION WIDTH SD 49.2 fL (36.4-46.3); WHITE BLOOD COUNT 8.47 K/uL (4.8-10.8)
[2017-10-14 13:33] LABS: ALBUMIN 3.3 gm/dl (3.4-5.0); ALT/SGPT 25 U/L (12-78); AST/SGOT 17 U/L (15-37); BLOOD UREA NITROGEN 10 mg/dl (7-18); CALCIUM 9.1 mg/dl (8.5-10.1); CARBON DIOXIDE 34 mmol/L (21-32); CHOLESTEROL 160 mg/dl (0-200); CREATININE 0.79 mg/dl (0.60-1.20); GLUCOSE 96 mg/dl (70-99); POTASSIUM 2.7 mmol/L (3.5-5.1); SODIUM 141 mmol/L (136-145)
[2017-10-14 13:45] LABS: ALKALINE PHOSPHATASE 85 U/L (45-117); LDL CHOLESTEROL CALCULATED 76 mg/dl; TOTAL PROTEIN 7.9 gm/dl (6.4-8.2)
== END | disposition home or self-care (01) ==
LOC: C.LAB1850 11:12
PROVIDERS: ATTEND Internal Medicine
DX: I25.5 Ischemic cardiomyopathy (principal)

== ENCOUNTER → 2017-10-20 | Outpatient (CLI) | payer OTHER ==
[2017-10-20 17:03] LABS: BLOOD UREA NITROGEN 8 mg/dl (7-18); CALCIUM 9.2 mg/dl (8.5-10.1); CARBON DIOXIDE 30 mmol/L (21-32); CREATININE 0.82 mg/dl (0.60-1.20); GLUCOSE 92 mg/dl (70-99); POTASSIUM 3.8 mmol/L (3.5-5.1); SODIUM 138 mmol/L (136-145)
== END | disposition home or self-care (01) ==
LOC: C.LAB1850 15:44
PROVIDERS: ATTEND Internal Medicine
DX: E87.6 Hypokalemia (principal)

== ENCOUNTER → 2017-10-28 | Day surgery (SDC) | payer OTHER ==
[2017-10-06 13:53] VITALS: BMI 39.0
--- NOTE | 2017-10-27 07:09 | HISTORY & PHYSICAL EXAMINATION ---
DATE OF ADMISSION: 10/28/2017 CHIEF COMPLAINT: Cubital tunnel syndrome of the right elbow. HISTORY OF PRESENT ILLNESS: Grazyna is a pleasant 56-year-old female who has been having numbness over the ulnar nerve distribution of her right elbow for about a year. I did a left cubital tunnel release about 6 weeks ago. She has done very well with that. EMG showed a right cubital tunnel syndrome. After failing conservative treatment, she elected to proceed with an open cubital tunnel release in situ. PAST MEDICAL HISTORY: Significant for heart disease, rheumatoid arthritis, mental disorders and blood clots. PAST SURGICAL HISTORY: Significant for a surgery to her ankle and defibrillator placement. ALLERGIES: TO FENTANYL. MEDICATIONS: Include gabapentin, metformin, Colace, trazodone, Seroquel, Vistaril, Coreg, digoxin, atorvastatin, Lasix, spironolactone, Xarelto, Benadryl, losartan and omeprazole. FAMILY HISTORY: Significant for heart disease and blood clots. SOCIAL HISTORY: She is , rarely drinks. Does little activity and is currently disabled. REVIEW OF SYSTEMS: She complains mostly of numbness in her right hand. All the pertinent review of systems are negative. PHYSICAL EXAMINATION: GENERAL: Well-developed, well-nourished female in no apparent distress. HEENT: Pupils are equal, round and reactive to light. Extraocular motion intact. Oral mucosa is pink and moist. HEART: Regular rate per radial pulse. LUNGS: Carmen symmetrically bilaterally with no audible breath sounds. ABDOMEN: Soft, nontender, nondistended. MUSCULOSKELETAL: On physical examination of her elbow, she has full range of motion. She does have positive Tinel sign at the cubital tunnel. She has numbness that extends in the ulnar nerve distribution of her right hand. Spurling and Lhermitte sign is negative. 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 IMPRESSION: Cubital tunnel syndrome of the right elbow. PLAN: Will proceed with an open cubital tunnel release in situ. Postoperatively, she will be placed in a soft dressing and discharged to home on oral pain medications.
[~2017-10-28] VITALS: Ht 172.7 cm; Wt 115.8 kg
[~2017-10-28] MED LIST changes: +ACETAMINOPHEN 500 MG TAB PO SCH; +ATROPINE SULFATE 0.1 MG/ML 5ML SYR IV PRN; +BUPIVACAINE 0.25% 30 ML VIAL ONE; +CEFAZOLIN 2000MG IV PUSH 15 ML IV SCH; +DEXAMETHASONE SOD INJ 4 MG/ML VIAL ONE; +EpHEDrine SULFATE INJ 50 MG/ML AMP IV PRN; +EpINEphrine HCL INJ 1 MG/ML 1ML SYRINGE ONE; +FAMOTIDINE 20 MG TAB PO SCH; +FLUMAZENIL 0.1 MG/1 ML 10 ML VIAL IV PRN; +GABAPENTIN 600 MG PO SCH; +HYDROmorphone INJ 0.5 MG/0.5 ML SYR IV PRN; +HYDROmorphone INJ 2 MG/ML SYR/VIAL ONE; +LABETALOL HCL IV 5 MG/ML 20ML IV PRN; +LACTATED RINGER'S 1000ML IV SCH; +LIDOCAINE HCL 2% 2 ML VIAL (20MG/ML) ONE; +MEPERIDINE HCL 25 MG/ML CARP IV PRN; +MIDAZOLAM HCL 1 MG/ML 2ML VIAL ONE; +NALOXONE HCL 0.4 MG/1 ML VIAL/CARP IV PRN; +ONDANSETRON INJ 2 MG/ML 2 ML VIAL IV PRN; +ONDANSETRON INJ 2 MG/ML 2 ML VIAL ONE; +OXYCODONE/ACETAMINOPHEN 5-325 TAB PO PRN; +PHENYLEPHRINE 100MCG/ML 5ML SYR IV PRN; +PHENYLEPHRINE HCL INJ 10 MG/ML VIAL ONE; +PROPOFOL IV EMULSION 10 MG/ML 20 ML VIAL ONE; +SODIUM CHLORIDE 0.9% 1000ML 1,000 ML IV SCH; +benadryl PO
[2017-10-28 12:28] VITALS: BP 117/83; PULSE 90; TEMP 36.4; O2SAT 95; Ht 172.7 cm; Wt 115.8 kg
--- NOTE | 2017-10-28 15:58 | Discharge Instructions ---
Discharge Instructions Date of Service October 28, 2017. Admission Reason for Admission: Right Cubital Tunnel Syndrome Discharge Discharge Diagnosis / Problem: SAME ABOVE Discharge Goals Goal(s): Decrease discomfort, Improve function Activity Recommendations Activity Limitations: as noted below Lifting Limitations: gradually increase as tolerated Exercise/Sports Limitations: gradually increase as tolerated . Instructions / Follow-Up Instructions / Follow-Up MEDICATIONS: * Resume previous medications unless instructed otherwise by your surgeon. * Always take pain medication on a full stomach or with food to avoid upset stomach. * Do not drink alcohol or drive while taking narcotics. * Ibuprofen or Tylenol may be taken if narcotic not needed. SPECIAL CARE INSTRUCTIONS: __ None _X_ Keep extremity elevated and iced x 48 hours; apply ice 20-30 minutes 8-10 times/day. May remove at night. _X_ Sling (WEAR FOR COMFORT ONLY) __24 hrs/day __ Remove at night __ Shoulder Immobilizer __ 24 hrs/day __ Remove at night _X_ Dressing __ Maintain until seen in office, may shower with plastic over site _X_ Remove dressings in 24-48 hours and then may shower _X_ Cover incisions with band-aids after showering __ Do not remove steri-strips Call physician if chills or temperature rises above 102 degrees or pain unrelieved by prescribed pain medications at . . Current Hospital Diet Patient's current hospital diet: Discharge Diet Recommended Diet: Regular Diet Fluid Restriction: None Pending Studies Studies pending at discharge: no Laboratory Results Hemoglobin A1c Test 08/19/17 11:31 Range/Units Estimated Average Glucose 128 mg/dl Hemoglobin A1c 6.1 H 4.5-5.6 % Lipid Panel Test 10/14/17 11:24 Range/Units Triglycerides Level 147 0-150 mg/dl Cholesterol Level 160 0-200 mg/dl HDL Cholesterol 55 mg/dl Cholesterol/HDL Ratio 2.9 LDL Cholesterol, Calculated 76 mg/dl Work Instructions Return To Work: 5 days (OR WHEN PAIN ALLOWS ) Medical Emergencies . Who to Call and When: Medical Emergencies: If at any time you feel your situation is an emergency, please call 911 immediately. . Non-Emergent Contact Non-Emergency issues call your: Primary Care Provider Call Non-Emergent contact if: you have a fever, temperature is above 101.5 . "Provider Documentation" section prepared by Jose Luis Dowling. .
--- NOTE | 2017-10-28 16:53 | [facility] Post Operative Brief Note ---
Immediate Operative Summary Operative Date October 28, 2017. Pre-Operative Diagnosis Cubital tunnel syndrome Post-Operative Diagnosis same Procedure(s) Performed Right cubital tunnel release Surgeon Dr Walls Meat Cutting Teacher Surgeon(s) rufino Dowling PA-C Estimated Blood Loss 5ml Findings Consistent with Post-Op Diagnosis Specimens none Anesthesia Type General Complication(s) none Disposition Disposition: Recovery Room / PACU
--- NOTE | 2017-10-28 17:23 | Anesthesiology Progress Note ---
Anesthesia Post Op Note Date & Time October 28, 2017 at 17:23 Vital Signs Pain Intensity: 0 Vital Signs Past 12 Hours Date Time Temp Pulse Resp B/P (MAP) Pulse Ox O2 Delivery O2 Flow Rate FiO2 10/28/17 17:15 84 16 122/79 96 Oxymask 10 10/28/17 17:06 36.4 88 16 118/78 93 Oxymask 10 10/28/17 12:28 36.4 90 20 117/83 (94) 95 Room Air Notes Mental Status: alert / awake / arousable, participated in evaluation Pt Amnestic to Procedure: Yes Nausea / Vomiting: adequately controlled Pain: adequately controlled Airway Patency, RR, SpO2: stable & adequate BP & HR: stable & adequate Hydration State: stable & adequate Anesthetic Complications: no major complications apparent
--- NOTE | 2017-10-28 17:30 | OPERATIVE REPORT ---
DATE OF OPERATION: 10/28/2017 PREOPERATIVE DIAGNOSIS: Cubital tunnel syndrome of the right elbow. POSTOPERATIVE DIAGNOSIS: Same. PROCEDURE: Open right cubital tunnel release in situ. SURGEON: Giuseppe Walls DO. CROSSCUTTER ROLLED GLASS: Jose Luis Dowling PA-C, whose assistance was necessary for positioning of the elbow, retraction, and closure. ANESTHESIA: General. COMPLICATIONS: None. CONDITION: Stable to PACU. INDICATIONS: Grazyna is a pleasant 56-year-old female who presented to my office with bilateral cubital tunnel syndrome. I did a left cubital tunnel release on her about 6 weeks ago, she did very well with that. She elected to proceed with the right cubital tunnel release. On 10/28/2017, she arrived at [facility] for the above procedure. She was seen in the preoperative holding area, and the operative extremity was identified and signed. She was taken back to the operating room, laid on the table in supine position, and put under general anesthesia. She was given 2 g of Ancef. The right elbow was prepped and draped in sterile fashion. Timeout was done, and the patient's operative extremity was properly identified. A curvilinear incision was made directly over the cubital tunnel. Dissection was taken down through the fascia, and Hardy's ligament was exposed. The ligament was released exposing the ulnar nerve. The ulnar nerve was released both proximally and distally. The biggest compression seemed to be through the flexor pronator mass distally. Care was taken to ensure complete release. I was able to flex her elbow without the nerve subluxating. Once I was happy with an adequate release, the wound was then irrigated, surrounding soft tissues were injected with Marcaine, and the skin was closed with 3-0 Vicryl and 4-0 nylon sutures. She was placed in a soft dressing, extubated, and taken to the postanesthesia care unit in stable condition. She tolerated the procedure well. I attest to the content of the Intraoperative Record and any orders documented therein. Any exception s are noted below.
[2017-10-28 17:50] VITALS: BP 111/67; PULSE 69; TEMP 36.6; O2SAT 94
[2017-10-28 18:20] VITALS: BP 102/69; PULSE 72; TEMP 36.6; O2SAT 94
== END | disposition home or self-care (01) ==
LOC: C.ACU 11:27
PROVIDERS: ATTEND Orthopaedic Surgery
DX: G56.21 Lesion of ulnar nerve, right upper limb (principal); I51.9 Heart disease, unspecified; I42.9 Cardiomyopathy, unspecified; E11.9 Type 2 diabetes mellitus without complications; K21.9 Gastro-esophageal reflux disease without esophagitis; E66.9 Obesity, unspecified; M06.9 Rheumatoid arthritis, unspecified; Z95.810 Presence of automatic (implantable) cardiac defibrillator; Z82.49 Family history of ischemic heart disease and other diseases of the circulatory system; Z83.2 Family history of diseases of the blood and blood-forming organs and certain disorders involving the immune mechanism; Z79.84 Long term (current) use of oral hypoglycemic drugs; Z79.01 Long term (current) use of anticoagulants; Z79.899 Other long term (current) drug therapy

== ENCOUNTER 2018-05-31 08:50 | Inpatient (IN) ==
[2018-05-31] MEDS ORDERED: ALBUT/IPRATROP 3MG/0.5MG NEB 3 ML VIAL NEB STA (09:38)
[2018-05-31 10:05] LABS: Basophils # (auto) 0.02 K/uL (0-0.2); Basophils % (auto) 0.1 %; Eosinophils # (auto) 0.03 K/uL (0-0.5); Eosinophils % (auto) 0.1 %; Hematocrit (blood only) 37.9 % (37-47); Hemoglobin 13.2 g/dL (12.0-16.0); Immature Granulocytes # (auto) 0.14 K/uL (0.00-0.02); Immature Granulocytes % (auto) 0.7 %; Lymphocytes # (auto) 1.41 K/uL (1.2-3.4); Lymphocytes % (auto) 6.7 %; Mean Corpuscular Hgb Conc 34.8 g/dL (32-36); Mean Corpuscular Volume 85.6 fL (80-100); Mean Platelet Volume 9.5 fL (7.4-10.4); Monocytes # (auto) 1.66 K/uL (0.11-0.59); Monocytes % (auto) 7.9 %; Neutrophils # (auto) 17.81 K/uL (1.4-6.5); Neutrophils % (auto) 84.5 %; Platelet Count 216 K/uL (130-400); RDW Coefficient of Variation 14.4 % (11.5-14.5); RDW Standard Deviation 45.3 fL (36.4-46.3); Red Blood Count 4.43 M/uL (4.2-5.4); White Blood Count 21.07 K/uL (4.8-10.8)
--- NOTE | 2018-05-31 10:13 | XRay Report ---
XR chest 1V portable CLINICAL HISTORY: cough, fever COMPARISON STUDY: 08/14/2010 FINDINGS: The heart is enlarged. There is a left subclavian pacer/defibrillator present. There are in creased markings at the left lung base. It is difficult to determine whether this represents true air space consolidation or artifact given the patient's body habitus. There are no significant pleural ef fusions.[ IMPRESSION: 1. Cardiomegaly. No evidence of failure 2. Left basilar airspace opacities versus artifact. A PA and lateral study might be of benefit in fol low-up Electronically signed by: Amrit Benitez M.D. 05/31/2018 10:11 AM
[2018-05-31 10:26] LABS: Appearance Urine Clear (Clear); Bacteria Urine Automated 1+ (Negative); Bilirubin Urine Negative (Negative); Cast Urine Automated 0 /lpf (0-5); Color Urine Yellow; Epithelial Cell Urine Auto >30 /lpf (0-5); Glucose Urine UA Negative (Negative); Ketones Urine Negative (Negative); Leukocyte Esterase Urine Negative (Negative); Nitrite Urine Negative (Negative); Protein Urine Trace (Negative); Specific Gravity Urine 1.012 (1.000-1.030); Urobilinogen Urine Negative (Negative); pH Urine 5.5 (4.5-7.5)
[2018-05-31 10:28] LABS: Alanine Aminotransferase 62 U/L (12-78); Albumin Level 2.9 gm/dl (3.4-5.0); Aspartate Aminotransferase 102 U/L (15-37); BUN Creatinine Ratio 10.3 (10-20); Blood Urea Nitrogen 10 mg/dl (7-18); Calcium 8.6 mg/dl (8.5-10.1); Carbon Dioxide 33 mmol/L (21-32); Chloride 98 mmol/L (98-107); Creatinine Clr Calc Pharmacy 87.3 ml/min; Est GFR (African American) 77.6; Glucose 114 mg/dl (70-99); Magnesium 1.7 mg/dl (1.8-2.4); Potassium 2.4 mmol/L (3.5-5.1); Sodium 138 mmol/L (136-145)
[2018-05-31] MEDS ORDERED: MAGNESIUM SULFATE / D5W 1 GM/100 ML BAG IV ONE (10:29)
[2018-05-31] MEDS ORDERED: POTASSIUM CHLORIDE 20 MEQ TABCR PO STA (10:29)
[2018-05-31 10:32] LABS: Albumin Globulin Ratio 0.5 (0.9-2); Alkaline Phosphatase 204 U/L (45-117); Bilirubin,Total 0.7 mg/dl (0.1-1); Globulin 5.4 gm/dl (2.5-4.0); NT Pro B Type Natriuretic Pept 1154 pg/ml (0-900); Total Protein 8.3 gm/dl (6.4-8.2); Troponin I < 0.015 ng/ml (0-0.045)
[2018-05-31] MEDS ORDERED: LEVOFLOXACIN/D5W 750 MG/150 ML BAG IV STA (11:22)
[2018-05-31] MEDS ORDERED: SODIUM CHLORIDE 0.9% 500 ML IV SCH (12:00)
[2018-05-31] MEDS ORDERED: PIPERACILL/TAZOBAC CONSULT ACTIVE PRN (14:49)
[2018-05-31] MEDS ORDERED: ONDANSETRON INJ 2 MG/ML 2 ML VIAL IV PRN (14:49)
[2018-05-31] MEDS ORDERED: POLYETHYLENE (MIRALAX) 17 GM PACK PO PRN (14:49)
[2018-05-31] MEDS ORDERED: ACETAMINOPHEN 325 MG TAB PO PRN ×2 (14:49→23:53)
[2018-05-31] MEDS ORDERED: PIPERACILLIN/TAZOBACTAM 3.375 GM in DEXTROSE 5% 100 ML IV SCH (14:49)
--- NOTE | 2018-05-31 15:15 | History & Physical Report ---
Date of Service May 31, 2018 Assessment & Plan (1) Pneumonia: given Levaquin in the ED, will give Zosyn IV on admission due to multiple meds that can cause QT prolongation WBC elevated at 21k, infiltrate in LLL seen on CXR no respiratory distress or hypoxia patient with tachycardia will give NS at 125cc/hr but should stop after 2 bags given her h/o heart failure (2) URI (upper respiratory infection): acute onset yesterday, said it hit her like "a brick wall" fevers, rigors, chills she has sore throat and earaches bilaterally should respond to Zosyn if there is any bacterial component (3) History of pulmonary embolism: continue Xarelto used to take Coumadin but too many issues [facility] (4) PTSD (post-traumatic stress disorder): treated with Gabapentin, Seroquel, Trazodone multiple medications needed for sleep she says it is stable (5) Cardiomyopathy: unsure if this is ischemic or non-ischemic will need to review records in more detail has a history of defibrillator placed in [place] (6) Chronic systolic heart failure: euvolemic to even a little dry on exam hold Lasix, Losartan, Spironolactone on admission likely resume tomorrow after hydration today History of Present Illness Chief Complaint: I feel so cold Primary Care Provider: Antonio Roper MD 57 yo female with history of chronic systolic heart failure, ICD implantation, PTSD with anxiety, difficulty sleeping, presents to the ED today c/o flu like symptoms. She said she felt fine on Tuesday 05/29, had a normal day, ate well, good energy. Yesterday she said that she developed a fever, chills, sweats, weakness, malaise and severe throat and ear pain. No known sick contacts. She was having a non-productive cough. She said her fever responded to Motrin but she felt so poorly this morning that she came to the ED. She admits to some mild dyspnea. She denies chest pain or palpitations. She has not had abdominal pain, diarrhea or UTI symptoms. In the ED she had a fever, was tachycardic, hypertensive. No hypoxia. WBC markedly elevated at 21k with left shift. Normal renal function and electrolytes. CXR showed possible left lower lobe infiltrate. PA and lateral film showed left pleural effusion with possible pneumonia as well. She was given Levaquin in the ED. Allergies Allergy/AdvReac Type Severity Reaction Status Date / Time fentanyl Allergy Mild RASH,ITCHIN Verified 05/31/18 09:30 G Home Medications Home Medications Medication Instructions Recorded Confirmed Type atorvastatin 10 mg PO DAILY 05/31/18 05/31/18 History carvedilol 3.125 mg PO BID 05/31/18 05/31/18 History digoxin 0.125 mg PO DAILY 05/31/18 05/31/18 History diphenhydramine HCl [Benadryl] 25 mg PO QAM 05/31/18 05/31/18 History docusate sodium [Colace] 100 mg PO BID 05/31/18 05/31/18 History furosemide [Lasix] 40 mg PO BID 05/31/18 05/31/18 History gabapentin 600 mg PO BID 05/31/18 05/31/18 History hydroxyzine pamoate [Vistaril] 50 mg PO QPM 05/31/18 05/31/18 History losartan 25 mg PO DAILY 05/31/18 05/31/18 History metformin 500 mg PO BID 05/31/18 05/31/18 History omeprazole 20 mg PO DAILY 05/31/18 05/31/18 History quetiapine [Seroquel] 50 mg PO DAILY 05/31/18 05/31/18 History quetiapine [Seroquel] 300 mg PO HS 05/31/18 05/31/18 History rivaroxaban [Xarelto] 20 mg PO DAILY 05/31/18 05/31/18 History spironolactone 12.5 mg PO DAILY 05/31/18 05/31/18 History trazodone 600 mg PO HS 05/31/18 05/31/18 History Past Med/Surg History Medical History Asthma (Chronic) CHF (congestive heart failure) (Chronic) HTN (hypertension) (Chronic) PTSD (post-traumatic stress disorder) (Chronic) Diabetes type 2, controlled patient denies having diabetes, does not want further testing even though she is prescribed Metformin Pulmonary embolism Surgical History Pacemaker (Chronic) Family History Other Hypertension No significant family history Social History Current Living Situation: Alone Other Information That Helps Us Care for You: No Feels Safe at Home: Yes Safety Concerns: Feels Safe At This Time Smoking Status: Former smoker Do You Dip or Chew Tobacco: No Smoking End Date: February 2016 Second Hand Exposure: No Tobacco Cessation Education Requested by Patient: No Hx Alcohol Use: Yes Alcohol Intake Frequency: other Hx Substance Use: No Beliefs That Will Affect Care: None Preferred Language: Ma[place] Communication Ability: Effective Clinic Physician Required: No Review of Systems All systems reviewed & are unremarkable except as noted in HPI & below Constitutional: + fever, + chills, + sweats, + body aches and + fatigue Ear, Nose, Mouth, Throat: + ear pain, + post nasal drip and + sore throat Respiratory: + cough; no dyspnea, no pain with cough and no sputum production Cardiovascular: no chest pain and no syncope Gastrointestinal: no abdominal pain, no nausea, no vomiting, no constipation and no diarrhea/loose stools Physical Exam 2 Vital Signs (Past 24 Hours): Last Vital Signs Temp 37.5 C 05/31/18 12:51 Pulse 115 H 05/31/18 12:00 Resp 37 H 05/31/18 12:00 BP 116/62 05/31/18 09:04 Pulse Ox 99 05/31/18 10:12 Constitutional: WD/WN, vitals as above + ill appearing (rigors, sweats, covered in blankets) and + obese Eyes: PERRL, conjunctivae normal, anicteric sclerae ENMT: external ear and nose normal, oropharynx normal Ears: no external ear abnormality and no TM abnormality (normal light reflex, no erythema, no fluid) Mouth: no oropharynx abnormality (difficult to see posterior throat due to large tongue) Neck: trachea midline, no thyromegaly Respiratory: normal respiratory effort, lungs clear to auscultation Cardiovascular: Rate/Rhythm: regular rhythm and + tachycardic Heart Sounds : normal S1 and normal S2; no murmur Gastrointestinal (Abdomen): normal bowel sounds, soft, nontender, no hepatosplenomegaly Musculoskeletal: no cyanosis or clubbing, extremities motor strength 5/5 Skin: no rashes, warm and dry Neurologic: patellar DTR's 2+ bilat, sensation intact and PERRL, EOMI, accommodation nl, no face palsy, no dysarthria Psychiatric: A+Ox3, euthymic affect Lymphatic: no cervical or axillary lymphadenopathy Results & Data Laboratory Results Laboratory Results - last 24 hr 05/31/18 05/31/18 05/31/18 09:50 09:50 09:50 WBC 21.07 H RBC 4.43 Hgb 13.2 Hct 37.9 MCV 85.6 MCH 29.8 MCHC 34.8 RDW Std Deviation 45.3 RDW Coeff of [place] 14.4 Plt Count 216 MPV 9.5 Immature Gran % (Auto) 0.7 Neut % (Auto) 84.5 Lymph % (Auto) 6.7 [place] % (Auto) 7.9 Eos % (Auto) 0.1 Baso % (Auto) 0.1 Immature Gran # (Auto) 0.14 H Neut # (Auto) 17.81 H Lymph # (Auto) 1.41 [place] # (Auto) 1.66 H Eos # (Auto) 0.03 Baso # (Auto) 0.02 Sodium 138 Potassium 2.4 L* Chloride 98 Carbon Dioxide 33 H Anion Gap 7.0 BUN 10 Creatinine 0.95 Est Cr Clr Drug Dosing 87.3 Est GFR ( Amer) 77.6 Est GFR (Non-Af Amer) 67.0 BUN/Creatinine Ratio 10.3 Glucose 114 H POC Lactic Acid Andrew Lactate Calcium 8.6 Magnesium 1.7 L Total Bilirubin 0.7 AST 102 H ALT 62 Alkaline Phosphatase 204 H Troponin I < 0.015 NT-Pro-B Natriuret Pep 1154 H Total Protein 8.3 H Albumin 2.9 L Globulin 5.4 H Albumin/Globulin Ratio 0.5 L Urine Color Urine Appearance Urine pH Ur Specific [place] Urine Protein Urine Glucose (UA) Urine Ketones Urine Blood Urine Nitrite Urine Bilirubin Urine Urobilinogen Ur Leukocyte Esterase Urine WBC (Auto) Urine RBC (Auto) U Hyaline Cast (Auto) U Epithel Cells (Auto) Urine Bacteria (Auto) Influenza Type A Ag Neg for Influ A Influenza Type B Ag Neg for Influ B 05/31/18 05/31/18 05/31/18 10:12 12:59 15:07 WBC RBC Hgb Hct MCV MCH MCHC RDW Std Deviation RDW Coeff of [place] Plt Count MPV Immature Gran % (Auto) Neut % (Auto) Lymph % (Auto) [place] % (Auto) Eos % (Auto) Baso % (Auto) Immature Gran # (Auto) Neut # (Auto) Lymph # (Auto) [place] # (Auto) Eos # (Auto) Baso # (Auto) Sodium Potassium Chloride Carbon Dioxide Anion Gap BUN Creatinine Est Cr Clr Drug Dosing Est GFR ( Amer) Est GFR (Non-Af Amer) BUN/Creatinine Ratio Glucose POC Lactic Acid Andrew 1.11 Lactate 1.1 Calcium Magnesium Total Bilirubin AST ALT Alkaline Phosphatase Troponin I NT-Pro-B Natriuret Pep Total Protein Albumin Globulin Albumin/Globulin Ratio Urine Color Yellow Urine Appearance Clear Urine pH 5.5 Ur Specific [place] 1.012 Urine Protein Trace H Urine Glucose (UA) Negative Urine Ketones Negative Urine Blood Trace H Urine Nitrite Negative Urine Bilirubin Negative Urine Urobilinogen Negative Ur Leukocyte Esterase Negative Urine WBC (Auto) 1-5 Urine RBC (Auto) 0-4 U Hyaline Cast (Auto) 0 U Epithel Cells (Auto) >30 H Urine Bacteria (Auto) 1+ H Influenza Type A Ag Influenza Type B Ag Diagnostic Findings CXR IMPRESSION: 1. Cardiomegaly. No evidence of failure 2. Left basilar airspace opacities versus artifact. A PA and lateral study might be of benefit in follow-up PA and lateral CXR IMPRESSION: 1. Cardiomegaly with pulmonary vascular congestion. 2. Blunting of the left costophrenic angle suggests trace pleural effusion. 3. Left greater than right bibasilar opacities redemonstrated favoring atelectasis with underlying pneumonitis also in the differential. Medications Administered Current Inpatient Medications Atorvastatin Calcium (Lipitor) 10 mg PO DAILY [facility] Stop: 07/01/18 08:59 Digoxin (Lanoxin) 0.125 mg PO DAILY [facility] Stop: 07/01/18 08:59 Gabapentin (Neurontin) 600 mg PO BID [facility] Stop: 06/30/18 20:59 Hydroxyzine HCl (Vistaril) 50 mg PO QPM [facility] Stop: 06/30/18 20:59 Potassium Chloride 40 meq/ (Sodium Chloride) 1,020 mls @ 125 mls/hr IV .Q8H10M [facility] Stop: 06/01/18 08:04 Piperacillin Sod/Tazobactam (Sod 4.5 gm/ Dextrose) 120 mls @ 200 mls/hr IV NOW ONE; Protocol Stop: 05/31/18 16:20 Piperacillin Sod/Tazobactam (Sod 4.5 gm/ Dextrose) 120 mls @ 30 mls/hr IV Q8H [facility]; Protocol Stop: 06/07/18 15:59 Ibuprofen (Motrin) 800 mg PO TID PRN PRN Reason: Fever or headache Stop: 06/30/18 15:10 Miscellaneous Information (Consult) 1 ea N/A UD PRN PRN Reason: Consult Stop: 06/30/18 14:48 Ondansetron HCl (Zofran) 4 mg IV Q6H PRN PRN Reason: Nausea Stop: 06/30/18 14:48 Pantoprazole Sodium (Protonix) 40 mg PO DAILY [facility] Stop: 07/01/18 08:59 Polyethylene Glycol (Miralax Powder Packet) 17 gm PO DAILY PRN PRN Reason: Constipation Stop: 06/30/18 14:48 Quetiapine Fumarate (Seroquel) 50 mg PO DAILY [facility] Stop: 07/01/18 08:59 Quetiapine Fumarate (Seroquel) 300 mg PO HS [facility] Stop: 06/30/18 20:59 Rivaroxaban (Xarelto) 20 mg PO DAILY [facility] Stop: 07/01/18 08:59 Trazodone HCl (Desyrel) 600 mg PO HS [facility] Stop: 06/30/18 20:59 Code Status & VTE Plan Code Status full code VTE Prophylaxis Plan VTE Prophylaxis will be ordered: Yes
[2018-05-31] MEDS ORDERED: PIPERACILLIN/TAZOBACTAM 4.5 GM in DEXTROSE 5% 100 ML IV ONE (15:45)
--- NOTE | 2018-05-31 15:47 | XRay Report ---
XR chest 2V routine HISTORY: 57 years-old Female abn portable, rad rec acute shortness of breath with atypical chest yoshi n COMPARISON: Chest radiograph 05/31/2018 TECHNIQUE: PA and lateral views of the chest FINDINGS: Cardiac silhouette is enlarged, unchanged. Left subclavian pacer/AICD appears unchanged. Pulmonary va scular congestion without overt pulmonary edema. No pneumothorax or large pleural effusion. Suspected trace left pleural effusion with bibasilar opacities. Degenerative changes of the shoulders and spin e. IMPRESSION: 1. Cardiomegaly with pulmonary vascular congestion. 2. Blunting of the left costophrenic angle suggests trace pleural effusion. 3. Left greater than right bibasilar opacities redemonstrated favoring atelectasis with underlying pn eumonitis also in the differential. The above report was generated using voice recognition software. It may contain grammatical, syntax o r spelling errors. Electronically signed by: Bryan Ortega M.D. 05/31/2018 3:46 PM
[2018-05-31 15:50] LABS: BUN Creatinine Ratio 9.2 (10-20); Creatinine Clr Calc Pharmacy 97.6 ml/min; Est GFR (African American) 88.8; Est GFR (Non-African American) 76.6; Potassium 2.8 mmol/L (3.5-5.1)
[2018-05-31] MEDS: POTASSIUM CHLORIDE 40 MEQ in SODIUM CHLORIDE 0.9% 1000ML 1,000 ML IV SCH (16:14)
[2018-05-31] MEDS: IBUPROFEN 800 MG TAB PO PRN (17:06)
[2018-05-31] MEDS ORDERED: QUETIAPINE FUMARATE 300 MG TABLET PO SCH (21:00)
[2018-05-31] MEDS ORDERED: TRAZODONE HCL 100 MG TAB PO SCH (21:00)
[2018-05-31] MEDS: GABAPENTIN 600 MG TAB PO SCH (21:18)
[2018-05-31] MEDS: PIPERACILLIN/TAZOBACTAM 4.5 GM in DEXTROSE 5% 100 ML IV SCH (23:37)
[2018-06-01] MEDS: IBUPROFEN 800 MG TAB PO PRN ×2 (01:09→10:01)
[2018-06-01] MEDS: FLUTICASONE PROPIONATE NA SPR 16 GM BTL SCH ×2 (01:09→09:58)
[2018-06-01] MEDS ORDERED: COUGH DROP (SUGAR FREE) LOZ 24 LOZ/1 BOX BUCCAL ONE (01:15)
[2018-06-01] MEDS: POTASSIUM CHLORIDE 40 MEQ in SODIUM CHLORIDE 0.9% 1000ML 1,000 ML IV SCH (01:27)
[2018-06-01] MEDS: PIPERACILLIN/TAZOBACTAM 4.5 GM in DEXTROSE 5% 100 ML IV SCH (06:17)
[2018-06-01 06:47] LABS: Basophils # (auto) 0.02 K/uL (0-0.2); Basophils % (auto) 0.1 %; Eosinophils # (auto) 0.07 K/uL (0-0.5); Eosinophils % (auto) 0.4 %; Hematocrit (blood only) 33.3 % (37-47); Hemoglobin 11.4 g/dL (12.0-16.0); Immature Granulocytes # (auto) 0.06 K/uL (0.00-0.02); Immature Granulocytes % (auto) 0.3 %; Lymphocytes # (auto) 1.93 K/uL (1.2-3.4); Lymphocytes % (auto) 10.6 %; Mean Corpuscular Hgb Conc 34.2 g/dL (32-36); Mean Corpuscular Volume 86.3 fL (80-100); Mean Platelet Volume 9.1 fL (7.4-10.4); Monocytes # (auto) 1.84 K/uL (0.11-0.59); Monocytes % (auto) 10.1 %; Neutrophils # (auto) 14.27 K/uL (1.4-6.5); Neutrophils % (auto) 78.5 %; Platelet Count 193 K/uL (130-400); RDW Coefficient of Variation 14.7 % (11.5-14.5); RDW Standard Deviation 45.7 fL (36.4-46.3); Red Blood Count 3.86 M/uL (4.2-5.4); White Blood Count 18.19 K/uL (4.8-10.8)
[2018-06-01 07:18] LABS: Albumin Level 2.4 gm/dl (3.4-5.0); BUN Creatinine Ratio 7.3 (10-20); Calcium 8.3 mg/dl (8.5-10.1); Creatinine Clr Calc Pharmacy 106.2 ml/min; Est GFR (African American) 98.5; Potassium 2.7 mmol/L (3.5-5.1)
[2018-06-01 07:20] LABS: Albumin Globulin Ratio 0.5 (0.9-2); Bilirubin,Total 0.5 mg/dl (0.1-1); Globulin 4.7 gm/dl (2.5-4.0); Total Protein 7.1 gm/dl (6.4-8.2)
[2018-06-01 08:06] VITALS: BP 126/82; TEMP 97.3; O2SAT 95
[2018-06-01] MEDS ORDERED: PANTOprazole 40 MG TAB PO SCH (09:00)
[2018-06-01] MEDS ORDERED: QUETIAPINE FUMARATE 25 MG TABLET PO SCH (09:00)
[2018-06-01] MEDS ORDERED: RIVAROXABAN 20 MG TAB PO SCH (09:00)
[2018-06-01] MEDS ORDERED: ATORVASTATIN 10 MG TAB PO SCH (09:00)
[2018-06-01] MEDS ORDERED: DIGOXIN 0.125 MG TAB PO SCH (09:00)
[2018-06-01] MEDS ORDERED: POTASSIUM CHLORIDE 20 MEQ TABCR PO SCH (09:00)
[2018-06-01] MEDS: GABAPENTIN 600 MG TAB PO SCH (10:00)
[2018-06-01 11:00] VITALS: PULSE 93
--- NOTE | 2018-06-03 12:17 | Emergency Department Note ---
Entered by Dagoberto Little acting as a scribe for Breonna Box DO History of Present Illness General Chief complaint: Illness Stated complaint: SORE THROAT,BODY ACHES,ABD PAIN Time Seen by Provider: 05/31/18 09:27 Source: patient History of Present Illness Onset (ago): day(s) 2 Location: abdomen (illness) Pain Consistency: + intermittent Maximum Pain Intensity: 10 Relieved By: + none Associated symptoms: + shortness of breath and + other (dirrhea, abdominal cramps) The patient is a 57 year old F who presents to the Emergency Room with complaints of constant illness starting 2 days ago. She states that she was preparing her [place] dinner when she felt achy, fever, soreness, sore throat , and pressure in her ears. She adds that her fever started at 103 but has gradually decreased. She notes that she took cold medicine for her symptoms. She adds that her doctor prescribed her Gabapentin 600 mg and Ibuprofen 800 mg. She states that she took her medication every 4-6 hours. She adds that she got her flu shot this year. She notes that she lives by herself but her friend visited her from [place] recently, however they didn't seem overtly ill. She adds that she is having shortness of breath, diarrhea, and abdominal cramps. She states that she has a history of CHF and a defibrillator. She denies a history of heart attacks and being a current smoker. 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 Home Medications Home Medications Medication Instructions Recorded Confirmed Type atorvastatin 10 mg PO DAILY 05/31/18 05/31/18 History carvedilol 3.125 mg PO BID 05/31/18 05/31/18 History digoxin 0.125 mg PO DAILY 05/31/18 05/31/18 History diphenhydramine HCl [Benadryl] 25 mg PO QAM 05/31/18 05/31/18 History docusate sodium [Colace] 100 mg PO BID 05/31/18 05/31/18 History furosemide [Lasix] 40 mg PO BID 05/31/18 05/31/18 History gabapentin 600 mg PO BID 05/31/18 05/31/18 History hydroxyzine pamoate [Vistaril] 50 mg PO QPM 05/31/18 05/31/18 History losartan 25 mg PO DAILY 05/31/18 05/31/18 History metformin 500 mg PO BID 05/31/18 05/31/18 History omeprazole 20 mg PO DAILY 05/31/18 05/31/18 History quetiapine [Seroquel] 50 mg PO DAILY 05/31/18 05/31/18 History quetiapine [Seroquel] 300 mg PO HS 05/31/18 05/31/18 History rivaroxaban [Xarelto] 20 mg PO DAILY 05/31/18 05/31/18 History spironolactone 12.5 mg PO DAILY 05/31/18 05/31/18 History trazodone 600 mg PO HS 05/31/18 05/31/18 History amoxicillin-pot clavulanate 1 tab PO BID #10 tab 06/01/18 Rx [Augmentin] fluticasone 1 sprays NA BID 7 Days #9.9 gm 06/01/18 Rx potassium chloride [Klor-Con M20] 20 meq PO BID 3 Days #6 tab 06/01/18 Rx Allergies Allergy/AdvReac Type Severity Reaction Status Date / Time fentanyl Allergy Mild RASH,ITCHIN Verified 05/31/18 09:30 G Past Med/Surg History Medical History Asthma (Chronic) CHF (congestive heart failure) (Chronic) HTN (hypertension) (Chronic) PTSD (post-traumatic stress disorder) (Chronic) Diabetes type 2, controlled patient denies having diabetes, does not want further testing even though she is prescribed Metformin Pulmonary embolism Surgical History Pacemaker (Chronic) Social History Current Living Situation: Alone Other Information That Helps Us Care for You: No Feels Safe at Home: Yes Safety Concerns: Feels Safe At This Time Smoking Status: Former smoker Do You Dip or Chew Tobacco: No Smoking End Date: February 2016 Second Hand Exposure: No Tobacco Cessation Education Requested by Patient: No Hx Alcohol Use: Yes Alcohol Intake Frequency: other Hx Substance Use: No Beliefs That Will Affect Care: None Preferred Language: B[place]udian Review of Systems See HPI for pertinent positives & negatives. and A total of 10 systems reviewed and were otherwise negative Physical Exam Vital Signs Vital Signs - 24 hr 05/31/18 09:04 05/31/18 10:12 05/31/18 11:00 Temperature 99.5 F Temperature Source Oral Sepsis Recent Fever Within 48 Hours No Sepsis New/Unexplained Change in Mental Status No Sepsis Action Taken by Nursing No Action Required Pulse Rate 105 H 105 H 112 H Pulse Rate [Left Brachial] Pulse Rhythm [Left Brachial] Pulse Strength [Left Brachial] Respiratory Rate 18 26 H 35 H Respiratory Effort / Characteristics Non-Labored Spontaneous Respiratory Depth Normal Respiratory Pattern Regular Blood Pressure 116/62 Blood Pressure [Left Arm] Blood Pressure Mean 80 Blood Pressure Mean [Left Arm] Blood Pressure Position [Left Arm] Pulse Oximetry 94 99 Oxygen Delivery Method Room Air 05/31/18 12:00 05/31/18 12:50 05/31/18 12:51 Temperature 99.5 F Temperature Source Oral Sepsis Recent Fever Within 48 Hours Sepsis New/Unexplained Change in Mental Status Sepsis Action Taken by Nursing Pulse Rate 115 H Pulse Rate [Left Brachial] Pulse Rhythm [Left Brachial] Pulse Strength [Left Brachial] Respiratory Rate 37 H Respiratory Effort / Characteristics Spontaneous Respiratory Depth Normal Respiratory Pattern Regular Blood Pressure Blood Pressure [Left Arm] Blood Pressure Mean Blood Pressure Mean [Left Arm] Blood Pressure Position [Left Arm] Pulse Oximetry Oxygen Delivery Method Room Air 05/31/18 14:23 05/31/18 15:17 Temperature 100.6 F H Temperature Source Oral Sepsis Recent Fever Within 48 Hours Sepsis New/Unexplained Change in Mental Status Sepsis Action Taken by Nursing Pulse Rate Pulse Rate [Left Brachial] 119 H Pulse Rhythm [Left Brachial] Regular Pulse Strength [Left Brachial] Normal Respiratory Rate 14 Respiratory Effort / Characteristics Non-Labored Spontaneous Respiratory Depth Normal Respiratory Pattern Regular Blood Pressure Blood Pressure [Left Arm] 122/83 Blood Pressure Mean Blood Pressure Mean [Left Arm] 96 Blood Pressure Position [Left Arm] Sitting Pulse Oximetry 93 Oxygen Delivery Method Room Air Room Air GENERAL: alert, well appearing, well nourished, no distress, non-toxic, obese EYE EXAM: normal conjunctiva, PERRL and EOM's grossly intact OROPHARYNX: no exudate, no erythema, lips, buccal mucosa, and tongue normal and mucous membranes are moist NECK: supple, no nuchal rigidity, no adenopathy, non-tender LUNGS: Diminished breath sounds. No W/R/R. Clear to auscultation. Normal chest wall mechanics HEART: no murmurs, S1 normal and S2 normal ABDOMEN: abdomen soft, non-tender, normo-active bowel sounds, no masses, no rebound or guarding. BACK: Back is symmetrical on inspection and there is no deformity, no midline tenderness, no CVA tenderness. SKIN: no rashes and no bruising UPPER EXTREMITIES: upper extremities are grossly normal. FROM, nml pulses b/l. LOWER EXTREMITIES: No pitting edema. FROM, nml pulses b/l. NEURO EXAM: Normal sensorium, cranial nerves II-XII grossly intact, normal speech, no gross weakness of arms, no gross weakness of legs. Course 09: Past medical records reviewed. The patient was evaluated in room C9, and a complete history and physical examination were performed. 1140: I re-evaluated the patient and discussed her initial evaluation. 1147: Discussed her use of blood thinner. Pt agreeable with plan for admission. Discussed antibiotics with pharmacist given hypokalemia and pt risks. 1153: I reviewed the patient's case with Dr. Monserrat Hein. She will evaluate the patient for further management. Consultations Consultation #1: I reviewed the patient's case with Dr. Monserrat Hein. She will evaluate the patient for further management. Time: 11:53 Administered Medications Discontinued Medications Albuterol (Duoneb) 3 ml NEB NOW STA Stop: 05/31/18 09:39 Last Admin: 05/31/18 10:17 Dose: 3 ml Atorvastatin Calcium (Lipitor) 10 mg PO DAILY VICTOR M Stop: 07/01/18 08:59 Last Admin: 06/01/18 09:59 Dose: 10 mg Digoxin (Lanoxin) 0.125 mg PO DAILY VICTOR M Stop: 07/01/18 08:59 Last Admin: 06/01/18 09:59 Dose: 0.125 mg Fluticasone Propionate (Flonase) 2 sprays NA BID VICTOR M Stop: 06/30/18 23:44 Last Admin: 06/01/18 09:58 Dose: 2 sprays Admin: 06/01/18 01:09 Dose: 2 sprays Gabapentin (Neurontin) 600 mg PO BID VICTOR M Stop: 06/30/18 20:59 Last Admin: 06/01/18 10:00 Dose: 600 mg Admin: 05/31/18 21:18 Dose: 600 mg Hydroxyzine HCl (Vistaril) 50 mg PO QPM VICTOR M Stop: 06/30/18 20:59 Last Admin: 05/31/18 21:18 Dose: 50 mg Magnesium Sulfate/Dextrose (Magnesium Sulfate / D5w) 1 gm in 100 mls @ 100 mls/ hr IV ONE ONE Stop: 05/31/18 11:28 Last Infusion: 05/31/18 11:45 Dose: 0 mls/hr Admin: 05/31/18 10:51 Dose: 100 mls/hr Levofloxacin/Dextrose (Levaquin/D5w) 750 mg in 150 mls @ 100 mls/hr IV NOW STA Stop: 05/31/18 12:51 Last Infusion: 05/31/18 15:22 Dose: Admin: 05/31/18 12:53 Dose: 100 mls/hr Sodium Chloride (Nss) 500 mls @ 125 mls/hr IV .Q4H VICTOR M Stop: 06/30/18 11:59 Last Infusion: 05/31/18 16:24 Dose: Admin: 05/31/18 12:53 Dose: 125 mls/hr Potassium Chloride 40 meq/ (Sodium Chloride) 1,020 mls @ 125 mls/hr IV .Q8H10M [facility] Stop: 06/01/18 08:04 Last Infusion: 06/01/18 10:48 Dose: Admin: 06/01/18 01:27 Dose: 125 mls/hr Infusion: 06/01/18 00:24 Dose: 125 mls/hr Admin: 05/31/18 16:14 Dose: 125 mls/hr Piperacillin Sod/Tazobactam (Sod 4.5 gm/ Dextrose) 120 mls @ 200 mls/hr IV NOW ONE; Protocol Stop: 05/31/18 16:20 Last Infusion: 05/31/18 17:14 Dose: Admin: 05/31/18 16:13 Dose: 200 mls/hr Piperacillin Sod/Tazobactam (Sod 4.5 gm/ Dextrose) 120 mls @ 30 mls/hr IV Q8H [facility]; Protocol Stop: 06/07/18 15:59 Last Infusion: 06/01/18 10:48 Dose: Admin: 06/01/18 06:17 Dose: 30 mls/hr Infusion: 06/01/18 03:40 Dose: Admin: 05/31/18 23:37 Dose: 30 mls/hr Ibuprofen (Motrin) 800 mg PO TID PRN PRN Reason: Fever or headache Stop: 06/30/18 15:10 Last Admin: 06/01/18 10:01 Dose: 800 mg Admin: 06/01/18 01:09 Dose: 800 mg Admin: 05/31/18 17:06 Dose: 800 mg Menthol (Nice) Confirm Administered Dose 24 davy BUCCAL .STK-MED ONE Stop: 06/01/18 01:16 Last Admin: 06/01/18 01:17 Dose: 24 davy Pantoprazole Sodium (Protonix) 40 mg PO DAILY VICTOR M Stop: 07/01/18 08:59 Last Admin: 06/01/18 09:59 Dose: 40 mg Potassium Chloride (Klor-Con M20) 40 meq PO NOW STA Stop: 05/31/18 10:30 Last Admin: 05/31/18 10:51 Dose: 40 meq Potassium Chloride (Klor-Con M20) 20 meq PO TID VICTOR M Stop: 07/01/18 08:59 Last Admin: 06/01/18 11:05 Dose: 20 meq Quetiapine Fumarate (Seroquel) 50 mg PO DAILY VICTOR M Stop: 07/01/18 08:59 Last Admin: 06/01/18 09:59 Dose: 50 mg Quetiapine Fumarate (Seroquel) 300 mg PO HS VICTOR M Stop: 06/30/18 20:59 Last Admin: 05/31/18 21:18 Dose: 300 mg Rivaroxaban (Xarelto) 20 mg PO DAILY VICTOR M Stop: 07/01/18 08:59 Last Admin: 06/01/18 10:00 Dose: 20 mg Trazodone HCl (Desyrel) 600 mg PO HS VICTOR M Stop: 06/30/18 20:59 Last Admin: 05/31/18 21:18 Dose: 600 mg Medical Decision Making Differential Diagnosis Differential diagnosis: Etiologies such as viral syndrome, otitis, pharyngitis, pneumonia, influenza, meningitis, urinary tract infection, sepsis, bacteremia, as well as others were entertained. Medical Records Attestation: I reviewed the patient's medical records. Home Medications Current Medication List: was personally reviewed by me Laboratory Data Attestation: I reviewed the patient's lab results. Result diagrams: 06/01/18 06:36 06/01/18 06:36 Lab Results 05/31/18 05/31/18 05/31/18 Range/Units 09:50 09:50 09:50 WBC 21.07 H (4.8-10.8) K/uL RBC 4.43 (4.2-5.4) M/uL Hgb 13.2 (12.0-16.0) g/dL Hct 37.9 (37-47) % MCV 85.6 (80-100) fL MCH 29.8 (25-34) pg MCHC 34.8 (32-36) g/dL RDW Std Deviation 45.3 (36.4-46.3) fL RDW Coeff of Logan 14.4 (11.5-14.5) % Plt Count 216 (130-400) K/uL MPV 9.5 (7.4-10.4) fL Immature Gran % (Auto) 0.7 % Neut % (Auto) 84.5 % Lymph % (Auto) 6.7 % [place] % (Auto) 7.9 % Eos % (Auto) 0.1 % Baso % (Auto) 0.1 % Immature Gran # (Auto) 0.14 H (0.00-0.02) K/uL Neut # (Auto) 17.81 H (1.4-6.5) K/uL Lymph # (Auto) 1.41 (1.2-3.4) K/uL [place] # (Auto) 1.66 H (0.11-0.59) K/uL Eos # (Auto) 0.03 (0-0.5) K/uL Baso # (Auto) 0.02 (0-0.2) K/uL Sodium 138 (136-145) mmol/L Potassium 2.4 L* (3.5-5.1) mmol/L Chloride 98 (98-107) mmol/L Carbon Dioxide 33 H (21-32) mmol/L Anion Gap 7.0 (3-11) BUN 10 (7-18) mg/dl Creatinine 0.95 (0.6-1.2) mg/dl Est Cr Clr Drug Dosing 87.3 ml/min Est GFR ( Amer) 77.6 Est GFR (Non-Af Amer) 67.0 BUN/Creatinine Ratio 10.3 (10-20) Glucose 114 H (70-99) mg/dl POC Lactic Acid Andrew (0.90-1.70) mmol/L Lactate (0.4-2.0) mmol/L Calcium 8.6 (8.5-10.1) mg/dl Magnesium 1.7 L (1.8-2.4) mg/dl Total Bilirubin 0.7 (0.1-1) mg/dl AST 102 H (15-37) U/L ALT 62 (12-78) U/L Alkaline Phosphatase 204 H (45-117) U/L Troponin I < 0.015 (0-0.045) ng/ml NT-Pro-B Natriuret Pep 1154 H (0-900) pg/ml Total Protein 8.3 H (6.4-8.2) gm/dl Albumin 2.9 L (3.4-5.0) gm/dl Globulin 5.4 H (2.5-4.0) gm/dl Albumin/Globulin Ratio 0.5 L (0.9-2) Urine Color Urine Appearance (Clear) Urine pH (4.5-7.5) Ur Specific Johnson (1.000-1.030) Urine Protein (Negative) Urine Glucose (UA) (Negative) Urine Ketones (Negative) Urine Blood (Negative) Urine Nitrite (Negative) Urine Bilirubin (Negative) Urine Urobilinogen (Negative) Ur Leukocyte Esterase (Negative) Urine WBC (Auto) (0-5) /hpf Urine RBC (Auto) (0-4) /hpf U Hyaline Cast (Auto) (0-5) /lpf U Epithel Cells (Auto) (0-5) /lpf Urine Bacteria (Auto) (Negative) Influenza Type A Ag Neg for Influ A (Neg) Influenza Type B Ag Neg for Influ B (Neg) 05/31/18 05/31/18 05/31/18 Range/Units 10:12 12:59 15:07 WBC (4.8-10.8) K/uL RBC (4.2-5.4) M/uL Hgb (12.0-16.0) g/dL Hct (37-47) % MCV (80-100) fL MCH (25-34) pg MCHC (32-36) g/dL RDW Std Deviation (36.4-46.3) fL RDW Coeff of Logan (11.5-14.5) % Plt Count (130-400) K/uL MPV (7.4-10.4) fL Immature Gran % (Auto) % Neut % (Auto) % Lymph % (Auto) % [place] % (Auto) % Eos % (Auto) % Baso % (Auto) % Immature Gran # (Auto) (0.00-0.02) K/uL Neut # (Auto) (1.4-6.5) K/uL Lymph # (Auto) (1.2-3.4) K/uL [place] # (Auto) (0.11-0.59) K/uL Eos # (Auto) (0-0.5) K/uL Baso # (Auto) (0-0.2) K/uL Sodium 140 (136-145) mmol/L Potassium 2.8 L D (3.5-5.1) mmol/L Chloride 99 (98-107) mmol/L Carbon Dioxide 31 (21-32) mmol/L Anion Gap 9.0 (3-11) BUN 8 (7-18) mg/dl Creatinine 0.85 (0.6-1.2) mg/dl Est Cr Clr Drug Dosing 97.6 ml/min Est GFR ( Amer) 88.8 Est GFR (Non-Af Amer) 76.6 BUN/Creatinine Ratio 9.2 L (10-20) Glucose 110 H (70-99) mg/dl POC Lactic Acid Andrew 1.11 (0.90-1.70) mmol/L Lactate (0.4-2.0) mmol/L Calcium 9.0 (8.5-10.1) mg/dl Magnesium (1.8-2.4) mg/dl Total Bilirubin (0.1-1) mg/dl AST (15-37) U/L ALT (12-78) U/L Alkaline Phosphatase (45-117) U/L Troponin I (0-0.045) ng/ml NT-Pro-B Natriuret Pep (0-900) pg/ml Total Protein (6.4-8.2) gm/dl Albumin (3.4-5.0) gm/dl Globulin (2.5-4.0) gm/dl Albumin/Globulin Ratio (0.9-2) Urine Color Yellow Urine Appearance Clear (Clear) Urine pH 5.5 (4.5-7.5) Ur Specific Johnson 1.012 (1.000-1.030) Urine Protein Trace H (Negative) Urine Glucose (UA) Negative (Negative) Urine Ketones Negative (Negative) Urine Blood Trace H (Negative) Urine Nitrite Negative (Negative) Urine Bilirubin Negative (Negative) Urine Urobilinogen Negative (Negative) Ur Leukocyte Esterase Negative (Negative) Urine WBC (Auto) 1-5 (0-5) /hpf Urine RBC (Auto) 0-4 (0-4) /hpf U Hyaline Cast (Auto) 0 (0-5) /lpf U Epithel Cells (Auto) >30 H (0-5) /lpf Urine Bacteria (Auto) 1+ H (Negative) Influenza Type A Ag (Neg) Influenza Type B Ag (Neg) 05/31/18 06/01/18 06/01/18 Range/Units 15:07 06:36 06:36 WBC 18.19 H (4.8-10.8) K/uL RBC 3.86 L (4.2-5.4) M/uL Hgb 11.4 L (12.0-16.0) g/dL Hct 33.3 L (37-47) % MCV 86.3 (80-100) fL MCH 29.5 (25-34) pg MCHC 34.2 (32-36) g/dL RDW Std Deviation 45.7 (36.4-46.3) fL RDW Coeff of Logan 14.7 H (11.5-14.5) % Plt Count 193 (130-400) K/uL MPV 9.1 (7.4-10.4) fL Immature Gran % (Auto) 0.3 % Neut % (Auto) 78.5 % Lymph % (Auto) 10.6 % [place] % (Auto) 10.1 % Eos % (Auto) 0.4 % Baso % (Auto) 0.1 % Immature Gran # (Auto) 0.06 H (0.00-0.02) K/uL Neut # (Auto) 14.27 H (1.4-6.5) K/uL Lymph # (Auto) 1.93 (1.2-3.4) K/uL [place] # (Auto) 1.84 H (0.11-0.59) K/uL Eos # (Auto) 0.07 (0-0.5) K/uL Baso # (Auto) 0.02 (0-0.2) K/uL Sodium 139 (136-145) mmol/L Potassium 2.7 L (3.5-5.1) mmol/L Chloride 102 (98-107) mmol/L Carbon Dioxide 32 (21-32) mmol/L Anion Gap 5.0 (3-11) BUN 6 L (7-18) mg/dl Creatinine 0.78 (0.6-1.2) mg/dl Est Cr Clr Drug Dosing 106.2 ml/min Est GFR ( Amer) 98.5 Est GFR (Non-Af Amer) 85.0 BUN/Creatinine Ratio 7.3 L (10-20) Glucose 141 H (70-99) mg/dl POC Lactic Acid Andrew (0.90-1.70) mmol/L Lactate 1.1 (0.4-2.0) mmol/L Calcium 8.3 L (8.5-10.1) mg/dl Magnesium (1.8-2.4) mg/dl Total Bilirubin 0.5 (0.1-1) mg/dl AST 39 H (15-37) U/L ALT 37 (12-78) U/L Alkaline Phosphatase 176 H (45-117) U/L Troponin I (0-0.045) ng/ml NT-Pro-B Natriuret Pep (0-900) pg/ml Total Protein 7.1 (6.4-8.2) gm/dl Albumin 2.4 L (3.4-5.0) gm/dl Globulin 4.7 H (2.5-4.0) gm/dl Albumin/Globulin Ratio 0.5 L (0.9-2) Urine Color Urine Appearance (Clear) Urine pH (4.5-7.5) Ur Specific Johnson (1.000-1.030) Urine Protein (Negative) Urine Glucose (UA) (Negative) Urine Ketones (Negative) Urine Blood (Negative) Urine Nitrite (Negative) Urine Bilirubin (Negative) Urine Urobilinogen (Negative) Ur Leukocyte Esterase (Negative) Urine WBC (Auto) (0-5) /hpf Urine RBC (Auto) (0-4) /hpf U Hyaline Cast (Auto) (0-5) /lpf U Epithel Cells (Auto) (0-5) /lpf Urine Bacteria (Auto) (Negative) Influenza Type A Ag (Neg) Influenza Type B Ag (Neg) Imaging Data Radiologist's Impression: Radiology results as stated below per my review and the radiologist's interpretation: XR chest 1V portable CLINICAL HISTORY: cough, fever COMPARISON STUDY: 08/14/2010 FINDINGS: The heart is enlarged. There is a left subclavian pacer/defibrillator present. There are increased markings at the left lung base. It is difficult to determine whether this represents true airspace consolidation or artifact given the patient's body habitus. There are no significant pleural effusions.[ IMPRESSION: 1. Cardiomegaly. No evidence of failure 2. Left basilar airspace opacities versus artifact. A PA and lateral study might be of benefit in follow-up Electronically signed by: Amrit Benitez M.D. 05/31/2018 10:11 AM ECG Data Attestation: I personally reviewed and interpreted this ECG as follows: Indication: SOB/dyspnea Rate (beats per minute): 106 Rhythm: sinus tachycardia Findings: + other (normal axis, normal interval) and + ST depression (slight ST depression in V5 and V6) Comparison ECG Date: from (08/19/17) Change: no significant change Blood Pressure Blood Pressure Findings: Normal blood pressure Blood Pressure Disposition: did not require urgent referral MDM Narrative Pt ill appearing here with risk factors for pulmonary infection and suspected pneumonia on cxr. Significant leukocytosis, cough, fevers, and negative flu here. Blood cultures obtained and antibiotics started after consultation with pharmacist due to hypokalemia. No recent admission. I suspect this is CAP. Pt states she has been compliant with her anticoagulation, I am less suspicious of PE. Pt with prior hx of CHF, mildly elevated BNP here, but likely due to infection. No overt s/sx of CHF. VS stable here and HR improved with neb tx and IVF. IVF given cautious due to hx of CHF and no hypotension Impression & Plan Pneumonia, Hypokalemia, COPD (chronic obstructive pulmonary disease) Discharge Plan Visit Data *Final* Discharge Date/Time: 05/31/18 15:17 Chief Complaint: Illness Stated Complaint: SORE THROAT,BODY ACHES,ABD PAIN ED Provider: Breonna Box Discharge Problem: Pneumonia, Hypokalemia, COPD (chronic obstructive pulmonary disease) Patient Disposition: Admitted As Inpatient Condition: Good Discharge Instructions Interventions: ED Discharge Assessment Last Done: 05/31/18 15:17 The scribe's documentation has been prepared under my direction and personally reviewed by me in its entirety. I confirm that the note above accurately reflects all work, treatment, procedures, and medical decision making performed by me.
--- NOTE | 2018-06-08 22:23 | Discharge Summary ---
Date of Service June 08, 2018 Admission HPI Per Admitting Provider 57 yo female with history of chronic systolic heart failure, ICD implantation, PTSD with anxiety, difficulty sleeping, presents to the ED today c/o flu like symptoms. She said she felt fine on Tuesday 05/29, had a normal day, ate well, good energy. Yesterday she said that she developed a fever, chills, sweats, weakness, malaise and severe throat and ear pain. No known sick contacts. She was having a non-productive cough. She said her fever responded to Motrin but she felt so poorly this morning that she came to the ED. She admits to some mild dyspnea. She denies chest pain or palpitations. She has not had abdominal pain, diarrhea or UTI symptoms. In the ED she had a fever, was tachycardic, hypertensive. No hypoxia. WBC markedly elevated at 21k with left shift. Normal renal function and electrolytes. CXR showed possible left lower lobe infiltrate. PA and lateral film showed left pleural effusion with possible pneumonia as well. She was given Levaquin in the ED. Admission Exam Per Admitting Provider Constitutional: WD/WN, vitals as above + ill appearing (rigors, sweats, covered in blankets) and + obese Eyes: PERRL, conjunctivae normal, anicteric sclerae ENMT: external ear and nose normal, oropharynx normal Ears: no external ear abnormality and no TM abnormality (normal light reflex, no erythema, no fluid) Mouth: no oropharynx abnormality (difficult to see posterior throat due to large tongue) Neck: trachea midline, no thyromegaly Respiratory: normal respiratory effort, lungs clear to auscultation Cardiovascular: Rate/Rhythm: regular rhythm and + tachycardic Heart Sounds : normal S1 and normal S2; no murmur Gastrointestinal (Abdomen): normal bowel sounds, soft, nontender, no hepatosplenomegaly Musculoskeletal: no cyanosis or clubbing, extremities motor strength 5/5 Skin: no rashes, warm and dry Neurologic: patellar DTR's 2+ bilat, sensation intact and PERRL, EOMI, accommodation nl, no face palsy, no dysarthria Psychiatric: A+Ox3, euthymic affect Lymphatic: no cervical or axillary lymphadenopathy Principal Diagnosis Pneumonia, community acquired Discharge Exam Constitutional WD/WN, vitals as above + obese; not ill appearing (appeared much more comfortable at time of discharge) Eyes PERRL, conjunctivae normal, anicteric sclerae ENMT external ear and nose normal, oropharynx normal Ears: no external ear abnormality and no TM abnormality (normal light reflex, no erythema, no fluid) Mouth: no oropharynx abnormality (difficult to see posterior throat due to large tongue) Neck trachea midline, no thyromegaly Respiratory normal respiratory effort, lungs clear to auscultation Cardiovascular Rate/Rhythm: regular rate (90's) and regular rhythm Heart Sounds: normal S1 and normal S2; no murmur Gastrointestinal (Abdomen) normal bowel sounds, soft, nontender, no hepatosplenomegaly Musculoskeletal no cyanosis or clubbing, extremities motor strength 5/5 Skin no rashes, warm and dry Neurologic patellar DTR's 2+ bilat, sensation intact and PERRL, EOMI, accommodation nl, no face palsy, no dysarthria Psychiatric A+Ox3, euthymic affect Lymphatic no cervical or axillary lymphadenopathy Discharge Data Allergies Allergy/AdvReac Type Severity Reaction Status Date / Time fentanyl Allergy Mild RASH,ITCHIN Verified 06/06/18 10:26 G Consultations 05/31/18 11:53 ED Decision to Admit Stat Hospital Course (1) Pneumonia: given Levaquin in the ED, treated with Zosyn IV on admission due to multiple meds that can cause QT prolongation WBC elevated at 21k, infiltrate in LLL seen on CXR WBC only down to 18k on 06/01 but patient feeling much better, requesting to go home no respiratory distress or hypoxia vitals were stable, tachycardia had resolved discharged to home on Augmentin to complete a 7 day course instructions given to get rest and stay well hydrated follow up with PCP (2) URI (upper respiratory infection): acute onset on 05/30, said it hit her like "a brick wall" fevers, rigors, chills she had sore throat and earaches bilaterally presentation fit more with acute onset of viral URI except for the findings on CXR suggesting pneumonia treated with Augmentin to cover bacterial etiology patient felt much, much better after 24 hours of fluids and rest, requesting to go home instructed to get rest at home (3) History of pulmonary embolism: continue Xarelto used to take Coumadin but too many issues [facility] ([facility]) PTSD (post-traumatic stress disorder): treated with Gabapentin, Seroquel, Trazodone multiple medications needed for sleep she says it is stable (5) Cardiomyopathy: unsure if this is ischemic or non-ischemic has a history of defibrillator placed in [place] (6) Chronic systolic heart failure: euvolemic to even a little dry on exam at time of admission euvolemic on discharge resume Lasix, Losartan, Spironolactone on discharge (7) Hypokalemia: 2.7 on the day of discharge provided with potassium supplementation follow up labs within one week Total Time Total Time Spent Total Time Spent (In Minutes): 35 minutes Total Time Includes: Examination of the Patient, Discharge Planning and Medication Reconciliation Discharge Plan Discharge Items Patient Disposition: Home - Self-Care Reason For Visit: PNEUMONIA, SEPSIS Discharge Diagnosis: Pneumonia, left lower lobe URI, likely viral infection Hypokalemia Condition: Good Discharge Goals: Decrease discomfort and Improve function Activity: Per 'Additional Instructions' section Activity Comment: get rest for several days Lifting: None Bathing: No limitations Exercise/Sports: None Driving/Machine Use: No limitations Non-emergency contact: Primary Care Provider Call non-emergency contact if: you have any medication questions, your symptoms worsen, your pain is concerning for you and you have a fever Diet: Heart Healthy Addtl Provider Instructions: Medications: - AUGMENTIN: take twice a day for 10 more doses to treat left lower lobe pneumonia - FLONASE: one spray to each nostril twice a day for the next week to treat nasal congestion - POTASSIUM: take one pill twice a day for 3 days to raise potassium levels Left lower lobe pneumonia, viral vs bacterial etiology Acute upper respiratory infection treated with IV fluids, rest, Motrin continue to use Motrin for pain and fevers at home finish course of Augmentin to cover bacterial sources use Flonase as prescribed for nasal congestion symptoms will likely take a few days to resolve, get rest and stay well nourished, well hydrated FOLLOW UP - call for appointment with Dr. Gyale in the next week, hospital follow up Prescriptions: New fluticasone 50 mcg/actuation [place],Suspension 1 sprays NA BID 7 Days Qty: 9.9 RF: 1 Continue furosemide [Lasix] 40 mg Tablet 40 mg PO BID RF: 0 metformin 500 mg Tablet 500 mg PO BID RF: 0 gabapentin 600 mg Tablet 600 mg PO BID RF: 0 quetiapine [Seroquel] 300 mg Tablet 300 mg PO HS RF: 0 atorvastatin 10 mg Tablet 10 mg PO DAILY RF: 0 hydroxyzine pamoate [Vistaril] 50 mg Capsule 50 mg PO QPM RF: 0 spironolactone 25 mg Tablet 12.5 mg PO DAILY RF: 0 carvedilol 3.125 mg Tablet 3.125 mg PO BID RF: 0 diphenhydramine HCl [Benadryl] 25 mg Capsule 25 mg PO QAM RF: 0 losartan 25 mg Tablet 25 mg PO DAILY RF: 0 trazodone 300 mg Tablet 600 mg PO HS RF: 0 docusate sodium [Colace] 100 mg Capsule 100 mg PO BID RF: 0 omeprazole 20 mg Capsule,Delayed Release(Dr/Ec) 20 mg PO DAILY RF: 0 digoxin 125 mcg Tablet 0.125 mg PO DAILY RF: 0 quetiapine [Seroquel] 50 mg Tablet 50 mg PO DAILY RF: 0 rivaroxaban [Xarelto] 20 mg Tablet 20 mg PO DAILY RF: 0 Visit Report Forms: My [facility] [employer] Portal Stand-Alone Forms: My [facility] [employer]/Other Patient Handouts: Fluticasone Propionate Nasal spray suspension, Potassium Oral tablet extended-release, Amoxicillin Trihydrate Clavulanate Potassium Oral tablet Discharge Orders: Discharge Order (Routine); Ordered 06/01/18 Ordered By: Jack Hayward Admission Data Admit Date/Time: 05/31/18 12:33 Attending Provider: Jack Hayward Admit Provider: Jack Hayward Primary Care Provider: Antonio Oliver V Service: Telemetry Other Interventions: Discharge Summary Assessment (RN) Last Done: 06/01/18 10:57 DC Date/Time DO NOT enter until pt leaves facility: 06/01/18 11:28
== END 2018-06-01 11:28 | disposition home or self-care (01) | DRG 194 ==
LOC: ED 08:50 → 2S 12:33
DX: F41.9 Anxiety disorder, unspecified; Z88.5 Allergy status to narcotic agent; Z79.899 Other long term (current) drug therapy; Z79.01 Long term (current) use of anticoagulants; J06.9 Acute upper respiratory infection, unspecified; Z79.84 Long term (current) use of oral hypoglycemic drugs; Z86.711 Personal history of pulmonary embolism; I50.22 Chronic systolic (congestive) heart failure; J18.9 Pneumonia, unspecified organism; Z87.891 Personal history of nicotine dependence; J44.0 Chronic obstructive pulmonary disease with (acute) lower respiratory infection; E87.6 Hypokalemia; F43.10 Post-traumatic stress disorder, unspecified; I42.9 Cardiomyopathy, unspecified; Z95.810 Presence of automatic (implantable) cardiac defibrillator

== ENCOUNTER 2018-06-28 11:21 | Inpatient (IN) ==
[2018-06-28] MEDS ORDERED: METOPROLOL TARTRATE 1 MG/ML VIAL IV, STA (11:39)
[2018-06-28] MEDS ORDERED: ASPIRIN CHEW 324 MG PO STA (11:39)
[2018-06-28 12:18] LABS: Basophils # (auto) 0.02 K/uL (0-0.2); Basophils % (auto) 0.2 %; Eosinophils # (auto) 0.26 K/uL (0-0.5); Eosinophils % (auto) 2.2 %; Hematocrit (blood only) 34.4 % (37-47); Hemoglobin 11.2 g/dL (12.0-16.0); Immature Granulocytes # (auto) 0.02 K/uL (0.00-0.02); Immature Granulocytes % (auto) 0.2 %; Lymphocytes # (auto) 2.81 K/uL (1.2-3.4); Lymphocytes % (auto) 23.8 %; Mean Corpuscular Hgb Conc 32.6 g/dL (32-36); Mean Corpuscular Volume 88.4 fL (80-100); Mean Platelet Volume 9.5 fL (7.4-10.4); Monocytes # (auto) 0.79 K/uL (0.11-0.59); Monocytes % (auto) 6.7 %; Neutrophils # (auto) 7.91 K/uL (1.4-6.5); Neutrophils % (auto) 66.9 %; Nucleated RBC # (auto) 0.03 K/uL (0-0); Nucleated RBC % (auto) 0.3 %; Platelet Count 249 K/uL (130-400); RDW Coefficient of Variation 15.7 % (11.5-14.5); RDW Standard Deviation 49.9 fL (36.4-46.3); Red Blood Count 3.89 M/uL (4.2-5.4); White Blood Count 11.81 K/uL (4.8-10.8)
[2018-06-28 12:29] LABS: Alanine Aminotransferase 21 U/L (12-78); Albumin Level 3.1 gm/dl (3.4-5.0); Aspartate Aminotransferase 8 U/L (15-37); BUN Creatinine Ratio 9.5 (10-20); Blood Urea Nitrogen 9 mg/dl (7-18); Carbon Dioxide 28 mmol/L (21-32); Chloride 100 mmol/L (98-107); Est GFR (African American) 82.8; Est GFR (Non-African American) 71.5; Glucose 128 mg/dl (70-99); Magnesium 2.1 mg/dl (1.8-2.4); Potassium 3.3 mmol/L (3.5-5.1); Sodium 138 mmol/L (136-145)
[2018-06-28 12:38] LABS: Albumin Globulin Ratio 0.7 (0.9-2); Alkaline Phosphatase 98 U/L (45-117); Bilirubin,Total 0.5 mg/dl (0.2-1); Globulin 4.5 gm/dl (2.5-4.0); Total Protein 7.6 gm/dl (6.4-8.2); Troponin I < 0.015 ng/ml (0-0.045)
--- NOTE | 2018-06-28 12:40 | XRay Report ---
XR chest 1V portable HISTORY: 57 years-old Female r/o chf, sepsis acute shortness of breath with sepsis and CHF COMPARISON: Chest radiographs 06/09/2018 TECHNIQUE: Portable AP view of the chest FINDINGS: Cardiac silhouette is enlarged, unchanged. Left subclavian pacer/AICD is noted. Pulmonary vascular co ngestion with interstitial coarsening has not significantly changed. Small bilateral pleural effusion s with bibasilar opacities. Degenerative changes of the shoulders and spine. IMPRESSION: 1. Cardiomegaly with persistent pulmonary edema. 2. Small bilateral pleural effusions with bibasilar consolidative opacities favoring atelectasis with underlying pneumonitis not excluded. The above report was generated using voice recognition software. It may contain grammatical, syntax o r spelling errors. Electronically signed by: Bryan Ortega M.D. 06/28/2018 12:39 PM
[2018-06-28] MEDS ORDERED: dilTIAZem HCl 5 MG/ML 5 ML VIAL IV STA (14:24)
[2018-06-28] MEDS ORDERED: POTASSIUM CHLORIDE 10 MEQ TABCR PO STA (15:13)
--- NOTE | 2018-06-28 15:14 | History & Physical Report ---
Date of Service June 28, 2018 Assessment & Plan (1) Acute on chronic systolic heart failure: Patient was diuresed during her prior hospital stay. She felt well for a few days post-discharge, then began to have CHF symptoms again with worsening dyspnea/orthopnea/etc. She reports 10 pounds of weight gain but the weights in the computer don't substantiate that. Never the less she was on a prednisone taper after hospital d/c and this could have caused fluid retention. Her chest x-ray certainly looks like pulm edema as well. Will give 40mg of IV lasix now, followed by 40mg IV BID thereafter. Follow UOP, weights, and BMP. She was cardioverted during the prior stay for uncontrolled a. fib and now is back in a. fib. Uncontrolled a. fib could easily be driving the decompensated CHF again as well. Cardiology consultation requested for assistance with a. fib control. Cont BB, aldactone, and ARB as previous. Titrate BB later this stay if possible. Needs sleep study to r/o TOMI as this could be contributing to her issues too. Present on Admission?: Yes (2) Atrial fibrillation with RVR: Was successfully cardioverted during her prior stay. Unfortunately she has returned to a. fib and had RVR upon presentation today. Her rates responded nicely to cardizem IV and lopressor IV. Cardizem long-term is contraindicated due to her depressed LV function. Resume her coreg NOW. Continue digoxin. Titrate the coreg if possible. Will ask cardiology for additional recommendations re: the a. fib. Antiarrhythmic? Other? Continue xarelto for anticoagulation. Replace low K. Mag normal. Present on Admission?: Yes (3) Presence of single chamber implantable cardioverter-defibrillator (ICD): Does she need ICD/pacer upgrade to help with LV function? defer management to cardiology. Could consider interrogation to see when she went back into a. fib. (4) COPD (chronic obstructive pulmonary disease): Does not appear to be in exacerbation at this time. Abx and steroids deferred at this time. (5) Schizoaffective disorder: On numerous psychotropic medications. Continue these. Certainly some of these can contribute to fluid retention. [id number] they all need to be continued. No bonnie and no suicidal ideation at this time. (6) GERD (gastroesophageal reflux disease): PPI (7) Hypokalemia: replace, repeat level in am. mag level wnl. (8) History of pulmonary embolism: continue xarelto. (9) Chronic respiratory failure with hypoxia: placed on continuous NC O2 after last week's admission (2 L rest, 4 L ambulation). due to COPD/pulmonary HTN? obesity-hypoventilation? combination of factors? continue NC O2. needs outpatient sleep study. (10) Chest pain: this was in the setting of having palpitations, likely from the a. fib. her troponin is negative. 2006 cath showed completely normal coronaries. doubt PE - she takes xarelto chronically. pain was likely rate-related/CHF-related. follow. (11) Morbid obesity: BMI 38, but has significant comorbidities including CHF, HTN, etc. (12) Pericardial effusion: mild-moderate on echo 06/06/18. suspect due to CHF. no signs on exam of tamponade. (13) DVT prophylaxis: xarelto admission time 70-75 minutes History of Present Illness Chief Complaint: shortness of breath Primary Care Provider: Antonio Roper MD 57yo female with history of severe chronic systolic CHF w/ EF of 20%, chronic hypoxic respiratory failure, a. fib s/p cardioversion during a previous admission earlier this month, and hyperlipidemia who presents with worsening dyspnea starting this past Tuesday. This has been associated with worsening LE edema, orthopnea, PND, and weight gain of about 10 pounds. She now has severe MONSALVE with walking less than 10 feet. It got to the point today that she could not perform activities of daily living and therefore came to the hospital for evaluation. On Tuesday pm/Tuesday she had chest pain associated with palpitations and heart racing. She had left arm pain as well. She took 2 aspirin and the chest pain/arm pain went away. She has had no other episodes like this over the last 1-2 weeks. Interestingly, despite her report of a 10-pound weight gain, her weight today is actually lower than her documented weight from the last admission. Lastly, records from previous stay suggest she failed her 2-step O2 test and 2 L NC was recommended at rest and 4 L with activity. She has been compliant with O2 at home. Allergies Allergy/AdvReac Type Severity Reaction Status Date / Time fentanyl Allergy Mild RASH,ITCHIN Verified 06/06/18 10:26 G Home Medications Home Medications Medication Instructions Recorded Confirmed Type atorvastatin 10 mg PO DAILY 05/31/18 06/28/18 History carvedilol 3.125 mg PO BID 05/31/18 06/28/18 History digoxin 0.125 mg PO DAILY 05/31/18 06/28/18 History diphenhydramine HCl [Benadryl] 25 mg PO QAM 05/31/18 06/28/18 History docusate sodium [Colace] 100 mg PO BID 05/31/18 06/28/18 History furosemide [Lasix] 40 mg PO BID 05/31/18 06/28/18 History gabapentin 600 mg PO BID 05/31/18 06/28/18 History hydroxyzine pamoate [Vistaril] 50 mg PO QPM 05/31/18 06/28/18 History losartan 25 mg PO DAILY 05/31/18 06/28/18 History metformin 500 mg PO BID 05/31/18 06/28/18 History omeprazole 20 mg PO DAILY 05/31/18 06/28/18 History quetiapine [Seroquel] 50 mg PO DAILY 05/31/18 06/28/18 History quetiapine [Seroquel] 300 mg PO HS 05/31/18 06/28/18 History rivaroxaban [Xarelto] 20 mg PO DAILY 05/31/18 06/28/18 History spironolactone 12.5 mg PO DAILY 05/31/18 06/28/18 History trazodone 600 mg PO HS 05/31/18 06/28/18 History albuterol sulfate 2 inha INH QID PRN #6.7 gm 06/12/18 06/28/18 Rx prednisone 10 mg PO DIRECTED #20 tab 06/12/18 06/28/18 Rx potassium chloride [Klor-Con M20] 20 meq PO DAILY 06/28/18 06/28/18 History Past Med/Surg History Medical History Morbid obesity Asthma (Chronic) CHF (congestive heart failure) (Chronic) 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% per echo 06/06/18; non-obstructive CAD per cath 2006 HTN (hypertension) (Chronic) PTSD (post-traumatic stress disorder) (Chronic) Atrial fibrillation Diabetes type 2, controlled patient denies having diabetes, does not want further testing even though she is prescribed Metformin GERD (gastroesophageal reflux disease) Pulmonary embolism 2013 while living in [place] Schizoaffective disorder Ventricular arrhythmia Surgical History Pacemaker (Chronic) AICD (automatic cardioverter/defibrillator) present S/P ORIF (open reduction internal fixation) fracture ankle, left S/P tubal ligation Social History marital status: marital status details: 5 kids Current Living Situation: Alone and Family Current Living Situation Comment: [place] [facility] Res[facility] 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: previously worked as [employer] Other Information That Helps Us Care for You: No other: lives in [place] Feels Safe at Home: Yes Safety Concerns: Feels Safe At This Time Smoking Status: Former smoker Years Smoked: 30 Cigarettes per Day: <1 ppd Smoking End Date: 2015 Hx Alcohol Use: No Hx Substance Use: No Beliefs That Will Affect Care: None Preferred Language: Khmer Communication Ability: Effective Service Or Work Dispatcher Required: No Review of Systems Constitutional: + weight gain; no fever and no anorexia Eyes: + worsening vision (floaters - chronic) Ear, Nose, Mouth, Throat: + post nasal drip; no sore throat and no dysphagia Respiratory: + cough, + dyspnea and + dyspnea on exertion; no wheezing Cardiovascular: + chest pain at rest, + dyspnea at rest, + dyspnea on exertion, + orthopnea, + paroxysmal nocturnal dyspnea, + palpitations and + edema; no dyspnea Gastrointestinal: + bloating ("years") and + diarrhea/loose stools (started after her last hospitalization); no abdominal pain, no nausea and no vomiting Genitourinary (Female): no dysuria Musculoskeletal: + joint pain (right shoulder x 1 week) Integumentary: + rash (dry skin - hands) Neurologic: + numbness (legs (from knees down)) Psychiatric: + depression; no abnormal sleep pattern and no suicidal ideation no diabetes Hematologic / Lymphatic: no easy bruising Physical Exam 2 Vital Signs (Past 24 Hours): Last Vital Signs Temp 36.5 C 06/28/18 11:26 Pulse 92 H 06/28/18 14:52 Resp 17 06/28/18 14:52 BP 102/75 06/28/18 14:52 Pulse Ox 99 06/28/18 14:52 Constitutional: well developed, well nourished and + obese; no acute distress Eyes: + anicteric sclerae and PERRL ENMT: external ear and nose normal, oropharynx normal Neck: trachea midline, no thyromegaly Respiratory: Auscultation: + diminished lung sounds (bases); no crackles, no rhonchi and no wheezes Cardiovascular: Rate/Rhythm: regular rate; + abnormal rhythm (irregular) Heart Sounds: normal S1 and normal S2; no gallop and no murmur Vessels: posterior tibial pulses present and dorsalis pedis pulses present; no JVD (but neck size is large and difficult to assess ) Extremities: + pedal edema ( minimal ) Gastrointestinal (Abdomen): normal bowel sounds, soft, nontender, no hepatosplenomegaly Musculoskeletal: no cyanosis or clubbing, extremities motor strength 5/5 Skin: no rashes, warm and dry Neurologic: deep tendon reflexes 2+ bilaterally and moves all extremities Psychiatric: A+Ox3, euthymic affect Mood: no depressed mood Lymphatic: no cervical lymphadenopathy Results & Data Laboratory Results Laboratory Results - last 24 hr 06/28/18 06/28/18 11:55 11:55 WBC 11.81 H RBC 3.89 L Hgb 11.2 L Hct 34.4 L MCV 88.4 MCH 28.8 MCHC 32.6 RDW Std Deviation 49.9 H RDW Coeff of [place] 15.7 H Plt Count 249 MPV 9.5 Immature Gran % (Auto) 0.2 Neut % (Auto) 66.9 Lymph % (Auto) 23.8 [place] % (Auto) 6.7 Eos % (Auto) 2.2 Baso % (Auto) 0.2 Immature Gran # (Auto) 0.02 Neut # (Auto) 7.91 H Lymph # (Auto) 2.81 [place] # (Auto) 0.79 H Eos # (Auto) 0.26 Baso # (Auto) 0.02 Absolute Nucleated RBC 0.03 H Nucleated RBC % (auto) 0.3 Sodium 138 Potassium 3.3 L Chloride 100 Carbon Dioxide 28 Anion Gap 10.0 BUN 9 Creatinine 0.90 Est Cr Clr Drug Dosing Not Reportable Est GFR ( Amer) 82.8 Est GFR (Non-Af Amer) 71.5 BUN/Creatinine Ratio 9.5 L Glucose 128 H Calcium 10.0 Magnesium 2.1 Total Bilirubin 0.5 AST 8 L ALT 21 Alkaline Phosphatase 98 Troponin I < 0.015 Total Protein 7.6 Albumin 3.1 L Globulin 4.5 H Albumin/Globulin Ratio 0.7 L TSH 0.743 Diagnostic Findings chest x-ray - IMPRESSION: 1. Cardiomegaly with persistent pulmonary edema. 2. Small bilateral pleural effusions with bibasilar consolidative opacities favoring atelectasis with underlying pneumonitis not excluded. EKG - my reading - a. fib with RVR; scant ST segment changes anterolateral leads Code Status & VTE Plan Code Status level 1 full code VTE Prophylaxis Plan VTE Prophylaxis will be ordered: Yes _ (1) COPD (chronic obstructive pulmonary disease) COPD type: unspecified COPD Chronic bronchitis type: Emphysema type: Qualified Code(s): J44.9 - Chronic obstructive pulmonary disease, unspecified (2) Schizoaffective disorder Schizoaffective disorder type: other Qualified Code(s): F25.8 - Other schizoaffective disorders (3) GERD (gastroesophageal reflux disease) Esophagitis presence: esophagitis presence not specified Qualified Code(s): K21.9 - Gastro-esophageal reflux disease without esophagitis (4) Chest pain Chest pain type: unspecified Qualified Code(s): R07.9 - Chest pain, unspecified
[2018-06-28] MEDS ORDERED: CARVEDILOL 3.125 MG TAB PO ONE (15:37)
[2018-06-28] MEDS ORDERED: FUROSEMIDE 40 MG/4 ML VIAL IV STA (15:37)
--- NOTE | 2018-06-28 15:47 | Emergency Department Note ---
Entered by Karlee Francisco acting as a scribe for Alyssa Shipman MD History of Present Illness General Chief complaint: Shortness of Breath/Dyspnea Stated complaint: SOB,WEIGHT GAIN Time Seen by Provider: 06/28/18 11:39 Source: patient Mode of arrival: ambulatory History of Present Illness Provider complaint: shortness of breath Onset (ago): day(s) 4 Location: chest Pain Consistency: + other (persistent) Maximum Pain Intensity: 3 Quality: + other (shortness of breath) Associated symptoms: + other (Denies: chest pain) The patient is a 57 year old female who presents to the Emergency Room with complaints of persistent shortness of breath beginning 4 days ago. She notes it feels hard to get air, but not necessarily SOB. The patient denies chest pain. She reports she was diagnosed with pneumonia last month and had shortness of breath at that time. Pt denies nausea. The patient notes she has been taking her Xaralto daily and has a significant cardiac history including heart failure , atrial fibrillation and an AICD. Home Medications Home Medications Medication Instructions Recorded Confirmed Type atorvastatin 10 mg PO DAILY 05/31/18 06/28/18 History carvedilol 3.125 mg PO BID 05/31/18 06/28/18 History digoxin 0.125 mg PO DAILY 05/31/18 06/28/18 History diphenhydramine HCl [Benadryl] 25 mg PO QAM 05/31/18 06/28/18 History docusate sodium [Colace] 100 mg PO BID 05/31/18 06/28/18 History furosemide [Lasix] 40 mg PO BID 05/31/18 06/28/18 History gabapentin 600 mg PO BID 05/31/18 06/28/18 History hydroxyzine pamoate [Vistaril] 50 mg PO QPM 05/31/18 06/28/18 History losartan 25 mg PO DAILY 05/31/18 06/28/18 History metformin 500 mg PO BID 05/31/18 06/28/18 History omeprazole 20 mg PO DAILY 05/31/18 06/28/18 History quetiapine [Seroquel] 50 mg PO DAILY 05/31/18 06/28/18 History quetiapine [Seroquel] 300 mg PO HS 05/31/18 06/28/18 History rivaroxaban [Xarelto] 20 mg PO DAILY 05/31/18 06/28/18 History spironolactone 12.5 mg PO DAILY 05/31/18 06/28/18 History trazodone 600 mg PO HS 05/31/18 06/28/18 History albuterol sulfate 2 inha INH QID PRN #6.7 gm 06/12/18 06/28/18 Rx prednisone 10 mg PO DIRECTED #20 tab 06/12/18 06/28/18 Rx potassium chloride [Klor-Con M20] 20 meq PO DAILY 06/28/18 06/28/18 History Allergies Allergy/AdvReac Type Severity Reaction Status Date / Time fentanyl Allergy Mild RASH,ITCHIN Verified 06/06/18 10:26 G Past Med/Surg History Medical History Morbid obesity Asthma (Chronic) CHF (congestive heart failure) (Chronic) 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% per echo 06/06/18; non-obstructive CAD per cath 2006 HTN (hypertension) (Chronic) PTSD (post-traumatic stress disorder) (Chronic) Atrial fibrillation Diabetes type 2, controlled patient denies having diabetes, does not want further testing even though she is prescribed Metformin GERD (gastroesophageal reflux disease) Pulmonary embolism 2013 while living in [place] Schizoaffective disorder Ventricular arrhythmia Surgical History Pacemaker (Chronic) AICD (automatic cardioverter/defibrillator) present S/P ORIF (open reduction internal fixation) fracture ankle, left S/P tubal ligation Family History Mother , in her 70s Lung cancer Breast cancer Congestive heart failure (CHF) Father No problems noted. Other Hypertension Social History marital status: marital status details: 5 kids Current Living Situation: Alone and Family Current Living Situation Comment: [facility] [place] Resident 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: previously worked as [employer] Other Information That Helps Us Care for You: No other: lives in [place] Feels Safe at Home: Yes Safety Concerns: Feels Safe At This Time Smoking Status: Former smoker Years Smoked: 30 Cigarettes per Day: <1 ppd Smoking End Date: 2015 Hx Alcohol Use: No Hx Substance Use: No Beliefs That Will Affect Care: None Communication Ability: Effective Review of Systems See HPI for pertinent positives & negatives. and A total of 10 systems reviewed and were otherwise negative Physical Exam Vital Signs Vital Signs - 24 hr 06/30/18 23:14 07/01/18 03:29 07/01/18 06:52 Temperature 36.5 C 36.5 C 36.6 C Temperature Source Oral Oral Oral Pulse Rate Pulse Rate [Left Apical] Pulse Rate [Left Finger] Pulse Rate [Right] 90 100 H 100 H Pulse Rhythm [Left Finger] Pulse Strength [Left Finger] Respiratory Rate 17 16 16 Respiratory Effort / Characteristics Respiratory Depth Respiratory Pattern Blood Pressure [Left Arm] 93/60 L Blood Pressure [Right Arm] 88/72 L 93/80 L Blood Pressure Mean [Left Arm] 71 Blood Pressure Mean [Right Arm] 77 84 Blood Pressure Position [Left Arm] Lying Blood Pressure Position [Right Arm] Sitting Lying Pulse Oximetry 97 98 99 Oxygen Delivery Method Nasal Cannula Nasal Cannula Nasal Cannula Oxygen Flow Rate 3 3 3 07/01/18 09:46 07/01/18 10:52 07/01/18 15:33 Temperature 36.5 C 36.6 C Temperature Source Oral Oral Pulse Rate Pulse Rate [Left Apical] 112 H 95 H Pulse Rate [Left Finger] Pulse Rate [Right] Pulse Rhythm [Left Finger] Pulse Strength [Left Finger] Respiratory Rate 16 16 Respiratory Effort / Characteristics Non-Labored Spontaneous Respiratory Depth Normal Respiratory Pattern Regular Blood Pressure [Left Arm] Blood Pressure [Right Arm] 109/71 96/63 L Blood Pressure Mean [Left Arm] Blood Pressure Mean [Right Arm] 83 74 Blood Pressure Position [Left Arm] Blood Pressure Position [Right Arm] Lying Sitting Pulse Oximetry 97 99 Oxygen Delivery Method Nasal Cannula Nasal Cannula Nasal Cannula Oxygen Flow Rate 3 3.0 3.0 07/01/18 16:08 07/01/18 19:29 Temperature 36.4 C L Temperature Source Oral Pulse Rate 98 H Pulse Rate [Left Apical] Pulse Rate [Left Finger] 115 H Pulse Rate [Right] Pulse Rhythm [Left Finger] Regular Pulse Strength [Left Finger] Normal Respiratory Rate 18 Respiratory Effort / Characteristics Non-Labored Respiratory Depth Normal Respiratory Pattern Blood Pressure [Left Arm] Blood Pressure [Right Arm] 112/68 Blood Pressure Mean [Left Arm] Blood Pressure Mean [Right Arm] 82 Blood Pressure Position [Left Arm] Blood Pressure Position [Right Arm] Sitting Pulse Oximetry 99 Oxygen Delivery Method Nasal Cannula Oxygen Flow Rate 3 Vital signs reviewed. General: Well-appearing obese middle-aged woman, in no significant distress. Ambulatory in the room. HEENT: No scleral icterus, PERRLA, neck supple. Atraumatic. Cardiovascular: Tachycardic rate and irregular rhythm, no extra sounds. Pulmonary: Clear to auscultation bilaterally, normal work of breathing. Abdomen: Soft, nontender, nondistended, positive bowel sounds. Musculoskeletal: Atraumatic, no peripheral edema. Neurologic: Patient awake alert and oriented x 3 Skin: Warm, dry, no rash. Course 1138: Past medical records reviewed. The patient was evaluated in room B10, and a complete history and physical examination were performed. 1426: Upon reevaluation, the patient is resting. I discussed test results. They verbalized agreement with the treatment plan. 1443: I reviewed the patient's case with Dr. Carballo, [facility] hospitalist. He will evaluate the patient for further management. Consultations Consultation #1: I reviewed the patient's case with Dr. Hardwick, [facility] hospitalist. He will evaluate the patient for further management. Time: 14:43 Administered Medications Acetaminophen (Tylenol) 650 mg PO Q4H PRN PRN Reason: Pain or Fever Stop: 07/28/18 17:26 Last Admin: 06/29/18 21:14 Dose: 650 mg Atorvastatin Calcium (Lipitor) 10 mg PO DAILY VICTOR M Stop: 07/29/18 08:59 Last Admin: 07/01/18 08:37 Dose: 10 mg Admin: 06/30/18 08:57 Dose: 10 mg Admin: 06/29/18 09:54 Dose: 10 mg Benzonatate (Tessalon Perle) 100 mg PO TID PRN PRN Reason: Cough Stop: 07/29/18 20:59 Last Admin: 07/01/18 08:37 Dose: 100 mg Admin: 06/30/18 19:51 Dose: 100 mg Admin: 06/30/18 14:51 Dose: 100 mg Admin: 06/30/18 04:38 Dose: 100 mg Admin: 06/29/18 17:40 Dose: 100 mg Digoxin (Lanoxin) 0.125 mg PO DAILY@1600 [facility] Stop: 07/28/18 17:26 Last Admin: 07/01/18 16:08 Dose: 0.125 mg Admin: 06/30/18 15:01 Dose: 0.125 mg Admin: 06/29/18 16:55 Dose: 0.125 mg Admin: 06/28/18 19:07 Dose: 0.125 mg Diphenhydramine HCl (Benadryl) 25 mg PO QAM [facility] Stop: 07/29/18 08:59 Last Admin: 07/01/18 08:37 Dose: 25 mg Admin: 06/30/18 09:05 Dose: 25 mg Admin: 06/29/18 09:56 Dose: 25 mg Docusate Sodium (Colace) 100 mg PO BID [facility] Stop: 07/28/18 20:59 Last Admin: 07/01/18 08:37 Dose: 100 mg Admin: 06/30/18 21:17 Dose: 100 mg Admin: 06/30/18 08:55 Dose: 100 mg Admin: 06/29/18 21:04 Dose: 100 mg Admin: 06/29/18 09:51 Dose: 100 mg Admin: 06/28/18 20:08 Dose: 100 mg Gabapentin (Neurontin) 600 mg PO BID [facility] Stop: 07/28/18 20:59 Last Admin: 07/01/18 08:37 Dose: 600 mg Admin: 06/30/18 21:17 Dose: 600 mg Admin: 06/30/18 08:54 Dose: 600 mg Admin: 06/29/18 21:11 Dose: 600 mg Admin: 06/29/18 09:52 Dose: 600 mg Admin: 06/28/18 20:09 Dose: 600 mg Guaifenesin/Codeine Phosphate (Robitussin-Ac Sugar Free) 5 ml PO Q6H PRN PRN Reason: Cough Stop: 07/29/18 16:57 Last Admin: 07/01/18 08:37 Dose: 5 ml Admin: 06/30/18 17:46 Dose: 5 ml Admin: 06/30/18 08:53 Dose: 5 ml Admin: 06/29/18 17:40 Dose: 5 ml Hydroxyzine HCl (Vistaril) 50 mg PO QPM [facility] Stop: 07/28/18 20:59 Last Admin: 06/30/18 21:17 Dose: 50 mg Admin: 06/29/18 21:12 Dose: 50 mg Admin: 06/28/18 20:11 Dose: 50 mg Furosemide 40 mg/ Syringe 4 mls @ 4 mls/min IV [id number] VICTOR M Stop: 07/29/18 08:59 Last Admin: 07/01/18 16:09 Dose: 4 mls/min Admin: 07/01/18 08:38 Dose: 4 mls/min Admin: 06/30/18 17:19 Dose: 4 mls/min Admin: 06/30/18 08:57 Dose: 4 mls/min Admin: 06/29/18 16:56 Dose: 4 mls/min Admin: 06/29/18 09:56 Dose: 4 mls/min Losartan Potassium (Cozaar) 25 mg PO DAILY VICTOR M Stop: 07/29/18 08:59 Last Admin: 06/30/18 08:56 Dose: 25 mg Admin: 06/29/18 09:55 Dose: 25 mg Metoprolol Tartrate (Lopressor) 25 mg PO TID VICTOR M Stop: 07/31/18 13:59 Last Admin: 07/01/18 13:23 Dose: 25 mg Morphine Sulfate (Morphine Sulfate) 2 mg IV Q30M PRN PRN Reason: Chest Pain Stop: 07/12/18 17:26 Last Admin: 07/01/18 14:35 Dose: 2 mg Admin: 06/30/18 21:13 Dose: 2 mg Pantoprazole Sodium (Protonix) 40 mg PO DAILY VICTOR M Stop: 07/29/18 08:59 Last Admin: 07/01/18 08:37 Dose: 40 mg Admin: 06/30/18 08:56 Dose: 40 mg Admin: 06/29/18 09:55 Dose: 40 mg Potassium Chloride (Klor-Con M20) 20 meq PO BID VICTOR M Stop: 07/28/18 20:59 Last Admin: 07/01/18 08:37 Dose: 20 meq Admin: 06/30/18 21:15 Dose: 20 meq Admin: 06/30/18 08:54 Dose: 20 meq Admin: 06/29/18 21:08 Dose: 20 meq Admin: 06/29/18 09:51 Dose: 20 meq Admin: 06/28/18 20:09 Dose: 20 meq Quetiapine Fumarate (Seroquel) 50 mg PO DAILY [facility] Stop: 07/29/18 08:59 Last Admin: 07/01/18 08:36 Dose: 50 mg Admin: 06/30/18 08:55 Dose: 50 mg Admin: 06/29/18 09:54 Dose: 50 mg Quetiapine Fumarate (Seroquel) 300 mg PO [facility] Stop: 07/28/18 20:59 Last Admin: 06/30/18 21:21 Dose: 300 mg Admin: 06/29/18 21:11 Dose: 300 mg Admin: 06/28/18 20:10 Dose: 300 mg Rivaroxaban (Xarelto) 20 mg PO DAILY@1800 VICTOR M Stop: 07/28/18 18:59 Last Admin: 07/01/18 16:09 Dose: 20 mg Admin: 06/30/18 17:19 Dose: 20 mg Admin: 06/29/18 17:40 Dose: 20 mg Admin: 06/28/18 19:07 Dose: 20 mg Spironolactone (Aldactone) 12.5 mg PO DAILY VICTOR M Stop: 07/29/18 08:59 Last Admin: 07/01/18 08:37 Dose: 12.5 mg Admin: 06/30/18 09:00 Dose: 12.5 mg Admin: 06/29/18 09:52 Dose: 12.5 mg Trazodone HCl (Desyrel) 600 mg PO [facility] Stop: 07/28/18 20:59 Last Admin: 06/30/18 21:16 Dose: 600 mg Admin: 06/29/18 21:07 Dose: 600 mg Admin: 06/28/18 20:09 Dose: 600 mg Discontinued Medications Aspirin (Aspirin) 324 mg PO NOW STA Stop: 06/28/18 11:40 Last Admin: 06/28/18 11:45 Dose: 324 mg Carvedilol (Coreg) 3.125 mg PO NOW ONE Stop: 06/28/18 15:38 Last Admin: 06/28/18 15:53 Dose: 3.125 mg Carvedilol (Coreg) 3.125 mg PO BID VICTOR M Stop: 07/28/18 20:59 Last Admin: 06/29/18 09:55 Dose: 3.125 mg Admin: 06/28/18 20:39 Dose: Not Given Diltiazem HCl (Cardizem) 20 mg IV NOW STA Stop: 06/28/18 14:25 Last Admin: 06/28/18 14:46 Dose: 20 mg Furosemide (Lasix) 40 mg IV NOW STA Stop: 06/28/18 15:38 Last Admin: 06/28/18 15:54 Dose: 40 mg Albumin Human (Albumin 25%) 50 mls @ 50 mls/hr IV ONE ONE Stop: 06/28/18 23:01 Last Infusion: 06/29/18 00:00 Dose: 0 mls/hr Admin: 06/28/18 22:24 Dose: 50 mls/hr Digoxin 250 mcg/ Syringe 10 mls @ 2 mls/min IV TODAY@2215 [facility] Stop: 06/28/18 22:19 Last Admin: 06/28/18 22:10 Dose: 2 mls/min Albumin Human (Albumin 25%) 50 mls @ 50 mls/hr IV ONE ONE Stop: 06/30/18 00:49 Last Infusion: 06/30/18 00:58 Dose: 0 mls/hr Admin: 06/29/18 23:57 Dose: 50 mls/hr Lorazepam (Ativan) Confirm Administered Dose 2 mg .ROUTE .STK-MED ONE Stop: 06/28/18 22:44 Last Admin: 06/28/18 22:30 Dose: 0.5 mg Menthol (Nice) Confirm Administered Dose 24 davy BUCCAL .STK-MED ONE Stop: 06/29/18 02:13 Last Admin: 06/29/18 03:10 Dose: 24 davy Metoprolol Tartrate (Lopressor) 5 mg IV, Q4 STA Stop: 06/28/18 11:40 Last Admin: 06/28/18 11:45 Dose: 5 mg Metoprolol Tartrate (Lopressor) 5 mg IV NOW STA Stop: 06/29/18 00:17 Last Admin: 06/29/18 00:39 Dose: 2.5 mg Metoprolol Tartrate (Lopressor) 12.5 mg PO TID [facility] Stop: 07/29/18 14:19 Last Admin: 07/01/18 08:37 Dose: 12.5 mg Admin: 06/30/18 21:08 Dose: Not Given Admin: 06/30/18 15:01 Dose: 12.5 mg Admin: 06/30/18 08:59 Dose: 12.5 mg Admin: 06/29/18 21:09 Dose: 12.5 mg Admin: 06/29/18 16:52 Dose: 12.5 mg Morphine Sulfate (Morphine Sulfate) Confirm Administered Dose 4 mg .ROUTE .STK- MED ONE Stop: 06/30/18 21:12 Last Admin: 06/30/18 21:58 Dose: Not Given Potassium Chloride (Klor-Con M10) 40 meq PO NOW STA Stop: 06/28/18 15:14 Last Admin: 06/28/18 15:53 Dose: 40 meq Medical Decision Making Differential Diagnosis Etiologies such as premature contractions, electrolyte abnormality, cardiac dysrhythmia, thyroid dysfunction, pulmonary embolism, infection, gastrointestinal, as well as others were entertained. Medical Records Attestation: I reviewed the patient's medical records. Home Medications Current Medication List: was personally reviewed by me Laboratory Data Attestation: I reviewed the patient's lab results. Result diagrams: 07/01/18 07:01 07/01/18 07:01 Lab Results 06/28/18 06/28/18 06/28/18 Range/Units 11:55 11:55 22:17 WBC 11.81 H (4.8-10.8) K/uL RBC 3.89 L (4.2-5.4) M/uL Hgb 11.2 L (12.0-16.0) g/dL Hct 34.4 L (37-47) % MCV 88.4 (80-100) fL MCH 28.8 (25-34) pg MCHC 32.6 (32-36) g/dL RDW Std Deviation 49.9 H (36.4-46.3) fL RDW Coeff of Logan 15.7 H (11.5-14.5) % Plt Count 249 (130-400) K/uL MPV 9.5 (7.4-10.4) fL Immature Gran % (Auto) 0.2 % Neut % (Auto) 66.9 % Lymph % (Auto) 23.8 % [place] % (Auto) 6.7 % Eos % (Auto) 2.2 % Baso % (Auto) 0.2 % Immature Gran # (Auto) 0.02 (0.00-0.02) K/uL Neut # (Auto) 7.91 H (1.4-6.5) K/uL Lymph # (Auto) 2.81 (1.2-3.4) K/uL [place] # (Auto) 0.79 H (0.11-0.59) K/uL Eos # (Auto) 0.26 (0-0.5) K/uL Baso # (Auto) 0.02 (0-0.2) K/uL Absolute Nucleated RBC 0.03 H (0-0) K/uL Nucleated RBC % (auto) 0.3 % Sodium 138 (136-145) mmol/L Potassium 3.3 L (3.5-5.1) mmol/L Chloride 100 (98-107) mmol/L Carbon Dioxide 28 (21-32) mmol/L Anion Gap 10.0 (3-11) BUN 9 (7-18) mg/dl Creatinine 0.90 (0.6-1.2) mg/dl Est Cr Clr Drug Dosing Not Reportable Est GFR ( Amer) 82.8 Est GFR (Non-Af Amer) 71.5 BUN/Creatinine Ratio 9.5 L (10-20) Glucose 128 H (70-99) mg/dl Calcium 10.0 (8.5-10.1) mg/dl Magnesium 2.1 (1.8-2.4) mg/dl Total Bilirubin 0.5 (0.2-1) mg/dl AST 8 L (15-37) U/L ALT 21 (12-78) U/L Alkaline Phosphatase 98 (45-117) U/L Troponin I < 0.015 (0-0.045) ng/ml Total Protein 7.6 (6.4-8.2) gm/dl Albumin 3.1 L (3.4-5.0) gm/dl Globulin 4.5 H (2.5-4.0) gm/dl Albumin/Globulin Ratio 0.7 L (0.9-2) TSH 0.743 (0.300-4.500) uIu/ml Digoxin 9.9 H* (0.8-2.0) ng/ml 06/29/18 06/29/18 06/30/18 Range/Units 06:38 15:19 08:20 WBC 9.49 (4.8-10.8) K/uL RBC 3.52 L (4.2-5.4) M/uL Hgb 10.1 L (12.0-16.0) g/dL Hct 31.3 L (37-47) % MCV 88.9 (80-100) fL MCH 28.7 (25-34) pg MCHC 32.3 (32-36) g/dL RDW Std Deviation 49.1 H (36.4-46.3) fL RDW Coeff of Logan 15.4 H (11.5-14.5) % Plt Count 215 (130-400) K/uL MPV 9.3 (7.4-10.4) fL Immature Gran % (Auto) % Neut % (Auto) % Lymph % (Auto) % [place] % (Auto) % Eos % (Auto) % Baso % (Auto) % Immature Gran # (Auto) (0.00-0.02) K/uL Neut # (Auto) (1.4-6.5) K/uL Lymph # (Auto) (1.2-3.4) K/uL [place] # (Auto) (0.11-0.59) K/uL Eos # (Auto) (0-0.5) K/uL Baso # (Auto) (0-0.2) K/uL Absolute Nucleated RBC (0-0) K/uL Nucleated RBC % (auto) % Sodium 138 (136-145) mmol/L Potassium 4.0 D (3.5-5.1) mmol/L Chloride 100 (98-107) mmol/L Carbon Dioxide 30 (21-32) mmol/L Anion Gap 8.0 (3-11) BUN 12 (7-18) mg/dl Creatinine 0.90 (0.6-1.2) mg/dl Est Cr Clr Drug Dosing 92.0 Est GFR ( Amer) 82.8 Est GFR (Non-Af Amer) 71.5 BUN/Creatinine Ratio 13.1 (10-20) Glucose 98 (70-99) mg/dl Calcium 9.1 (8.5-10.1) mg/dl Magnesium 2.3 (1.8-2.4) mg/dl Total Bilirubin (0.2-1) mg/dl AST (15-37) U/L ALT (12-78) U/L Alkaline Phosphatase (45-117) U/L Troponin I (0-0.045) ng/ml Total Protein (6.4-8.2) gm/dl Albumin (3.4-5.0) gm/dl Globulin (2.5-4.0) gm/dl Albumin/Globulin Ratio (0.9-2) TSH (0.300-4.500) uIu/ml Digoxin 1.1 (0.8-2.0) ng/ml 06/30/18 07/01/18 07/01/18 Range/Units 08:20 07:01 07:01 WBC 9.79 (4.8-10.8) K/uL RBC 3.57 L (4.2-5.4) M/uL Hgb 10.3 L (12.0-16.0) g/dL Hct 32.1 L (37-47) % MCV 89.9 (80-100) fL MCH 28.9 (25-34) pg MCHC 32.1 (32-36) g/dL RDW Std Deviation 49.5 H (36.4-46.3) fL RDW Coeff of Logan 15.2 H (11.5-14.5) % Plt Count 224 (130-400) K/uL MPV 9.2 (7.4-10.4) fL Immature Gran % (Auto) % Neut % (Auto) % Lymph % (Auto) % [place] % (Auto) % Eos % (Auto) % Baso % (Auto) % Immature Gran # (Auto) (0.00-0.02) K/uL Neut # (Auto) (1.4-6.5) K/uL Lymph # (Auto) (1.2-3.4) K/uL [place] # (Auto) (0.11-0.59) K/uL Eos # (Auto) (0-0.5) K/uL Baso # (Auto) (0-0.2) K/uL Absolute Nucleated RBC (0-0) K/uL Nucleated RBC % (auto) % Sodium 138 137 (136-145) mmol/L Potassium 4.0 4.0 (3.5-5.1) mmol/L Chloride 101 100 (98-107) mmol/L Carbon Dioxide 30 29 (21-32) mmol/L Anion Gap 7.0 8.0 (3-11) BUN 14 16 (7-18) mg/dl Creatinine 1.00 1.03 (0.6-1.2) mg/dl Est Cr Clr Drug Dosing 82.8 80.8 Est GFR ( Amer) 72.9 70.4 Est GFR (Non-Af Amer) 62.9 60.7 BUN/Creatinine Ratio 14.0 15.1 (10-20) Glucose 96 98 (70-99) mg/dl Calcium 8.7 8.6 (8.5-10.1) mg/dl Magnesium (1.8-2.4) mg/dl Total Bilirubin (0.2-1) mg/dl AST (15-37) U/L ALT (12-78) U/L Alkaline Phosphatase (45-117) U/L Troponin I (0-0.045) ng/ml Total Protein (6.4-8.2) gm/dl Albumin (3.4-5.0) gm/dl Globulin (2.5-4.0) gm/dl Albumin/Globulin Ratio (0.9-2) TSH (0.300-4.500) uIu/ml Digoxin (0.8-2.0) ng/ml Imaging Data Radiologist's Impression: Radiology results as stated below per my review and the radiologist's interpretation: XR chest 1V portable HISTORY: 57 years-old Female r/o chf, sepsis acute shortness of breath with sepsis and CHF COMPARISON: Chest radiographs 06/09/2018 TECHNIQUE: Portable AP view of the chest FINDINGS: Cardiac silhouette is enlarged, unchanged. Left subclavian pacer/AICD is noted. Pulmonary vascular congestion with interstitial coarsening has not significantly changed. Small bilateral pleural effusions with bibasilar opacities. Degenerative changes of the shoulders and spine. IMPRESSION: 1. Cardiomegaly with persistent pulmonary edema. 2. Small bilateral pleural effusions with bibasilar consolidative opacities favoring atelectasis with underlying pneumonitis not excluded. The above report was generated using voice recognition software. It may contain grammatical, syntax or spelling errors. Electronically signed by: Bryan Ortega M.D. 06/28/2018 12:39 PM ECG Data Attestation: I personally reviewed and interpreted this ECG as follows: Indication: tachycardia Rate (beats per minute): 129 Rhythm: atrial fibrillation (with RVR) Findings: + other (nonspecific ST and T-wave abnormalities. QTC 580.); no PAC and no PVC Blood Pressure Blood Pressure Findings: Normal blood pressure Blood Pressure Disposition: did not require urgent referral MDM Narrative THis pt was evaluated and appeared to be in no distress. IV access was obtained and lab work was drawn. PT was placed on the clinical research monitor. SHe was found to be in rapid atrial fibrillation on tele and confirmed by EKG. Pt was given IV metoprolol 5 mg x 3 doses without benefit. Lab work was fairly reassuring, mild anemia noted. IV cardizem was ordered. CXR is read as cardiomegaly with persistent pulmonary edema, small bilateral pleural effusions with bibasilar consolidative opacities favoring atelectasis with underlying pneumonitis not excluded. PNA is not suspected currently. Pt was ordered IV cardizem bolus and d/w the hospitalist service, Dr Hardwick. He will evaluate the pt for further management. Impression & Plan Atrial fibrillation with RVR Critical Care Time I have personally spent greater than 30 minutes of critical care time in the direct management of this patient. This includes bedside care, interpretation of diagnostic studies, and testing, discussion with consultants, patient, and family members, and other required patient management activities. This 30 minutes is in excess of all separately billable procedures. Critical Care Time: Yes Total Critical Care Time: 30 Discharge Plan Visit Data *Final* Discharge Date/Time: 06/28/18 17:06 Chief Complaint: Shortness of Breath/Dyspnea Stated Complaint: SOB,WEIGHT GAIN ED Provider: Alyssa Shipman Discharge Problem: Atrial fibrillation with RVR Patient Disposition: Admitted As Inpatient Discharge Instructions Interventions: ED Discharge Assessment Last Done: 06/28/18 17:06 The scribe's documentation has been prepared under my direction and personally reviewed by me in its entirety. I confirm that the note above accurately reflects all work, treatment, procedures, and medical decision making performed by me.
[2018-06-28] MEDS ORDERED: NITROGLYCERIN SL 0.4 MG/TAB TAB SL PRN (17:27)
[2018-06-28] MEDS ORDERED: ALBUTEROL HFA 8 GM INHALER INH PRN (17:27)
[2018-06-28] MEDS ORDERED: ACETAMINOPHEN 325 MG TAB PO PRN (17:27)
[2018-06-28] MEDS ORDERED: ONDANSETRON INJ 2 MG/ML 2 ML VIAL IV PRN (17:27)
[2018-06-28] MEDS: DIGOXIN 0.125 MG TAB PO SCH (19:07)
[2018-06-28] MEDS: RIVAROXABAN 20 MG TAB PO SCH (19:07)
[2018-06-28] MEDS: DOCUSATE SODIUM 100 MG CAP PO SCH (20:08)
[2018-06-28] MEDS: TRAZODONE HCL 100 MG TAB PO SCH (20:09)
[2018-06-28] MEDS: GABAPENTIN 600 MG TAB PO SCH (20:09)
[2018-06-28] MEDS: POTASSIUM CHLORIDE 20 MEQ TABCR PO SCH (20:09)
[2018-06-28] MEDS: QUETIAPINE FUMARATE 300 MG TABLET PO SCH (20:10)
[2018-06-28] MEDS: CARVEDILOL 3.125 MG TAB PO SCH (20:39)
[2018-06-28] MEDS ORDERED: ALBUMIN 25% 50 ML IV ONE (22:02)
[2018-06-28] MEDS ORDERED: DIGOXIN 250 MCG in SYRINGE 9 ML IV SCH (22:15)
[2018-06-28] MEDS: LORazepam 2 MG/4 ML VIAL ONE ×2 (22:30→22:46)
[2018-06-28] MEDS ORDERED: LORazepam 0.5 MG/1 ML VIAL IV STA (22:40)
[2018-06-29] MEDS ORDERED: METOPROLOL TARTRATE 1 MG/ML VIAL IV STA (00:16)
[2018-06-29] MEDS ORDERED: COUGH DROP (SUGAR FREE) LOZ 24 LOZ/1 BOX BUCCAL ONE (02:12)
[2018-06-29 07:44] LABS: BUN Creatinine Ratio 13.1 (10-20); Calcium 9.1 mg/dl (8.5-10.1); Est GFR (African American) 82.8; Est GFR (Non-African American) 71.5; Magnesium 2.3 mg/dl (1.8-2.4)
[2018-06-29] MEDS: DOCUSATE SODIUM 100 MG CAP PO SCH ×2 (09:51→21:04)
[2018-06-29] MEDS: POTASSIUM CHLORIDE 20 MEQ TABCR PO SCH ×2 (09:51→21:08)
[2018-06-29] MEDS: GABAPENTIN 600 MG TAB PO SCH ×2 (09:52→21:11)
[2018-06-29] MEDS: SPIRONOLACTONE 25 MG TAB PO SCH (09:52)
[2018-06-29] MEDS: ATORVASTATIN 10 MG TAB PO SCH (09:54)
[2018-06-29] MEDS: QUETIAPINE FUMARATE 25 MG TABLET PO SCH (09:54)
[2018-06-29] MEDS: CARVEDILOL 3.125 MG TAB PO SCH (09:55)
[2018-06-29] MEDS: PANTOprazole 40 MG TAB PO SCH (09:55)
[2018-06-29] MEDS: LOSARTAN POTASSIUM 25 MG TAB PO SCH (09:55)
[2018-06-29] MEDS: FUROSEMIDE 40 MG in SYRINGE 0 ML IV SCH ×2 (09:56→16:56)
[2018-06-29] MEDS ORDERED: METOPROLOL TARTRATE 1 MG/ML VIAL IV PRN (11:39)
--- NOTE | 2018-06-29 14:18 | Cardiology Consultation ---
Date of Consultation June 29, 2018 Assessment & Plan (1) Atrial fibrillation with RVR: Unfortunately, the patient appears to have returned to atrial fibrillation. Whether this is related to an underlying pulmonary process or an otherwise undefined etiology is unclear. In the past she was not felt to have frequent episodes of atrial fibrillation. This had been based on the absence of higher heart rates on device monitoring. During the last admission she continued to have high ventricular rates until she underwent cardioversion. Transition to a rhythm control strategy seems attractive, but the patient's current therapy with quiet the pain precludes use of the available antiarrhythmic agents. As such, I think it would be reasonable to try a more aggressive rate control strategy at this point. I think we can change her carvedilol to metoprolol and see if this can be titrated without promoting lower blood pressures. She will continue on her Xarelto indefinitely. In the absence of adequate rate control or frustration of other efforts to control the arrhythmia, a reasonable option would be AV node ablation and upgrade of her current device to a biventricular ICD. Present on Admission?: Yes (2) Shortness of breath: She has had some shortness of breath now for a couple of months. There is been some suspicion of an infectious process. However, she likely has an element of pulmonary edema. This is related to her chronic LV failure as well as her atrial fibrillation and associated high ventricular rates. I would agree with continued efforts at diuresis. Currently on Lasix twice daily. Present on Admission?: Yes (3) Pericardial effusion: Noted to be mild to moderate in size during her last admission. I think would be reasonable to perform a limited echocardiogram in order to evaluate any change. (4) Presence of single chamber implantable cardioverter-defibrillator (ICD): She has a [employer] device. I will perform an interrogation during her hospitalization. This may give us some insight into when she returned to atrial fibrillation. (5) Cardiomyopathy: [place] to be nonischemic based on coronary angiography performed in 2006. Patient's outpatient medical regimen consists of a beta-julee, ARB and Spironolactone. She would be a good candidate for Entresto. However, this may be difficult to initiate given her relative hypotension. History of Present Illness Reason for Consultation: Atrial fibrillation, congestive heart failure Requesting Physician: Ronen Attending Physician: Jack Hayward DO History of Present Illness The patient is a 57-year-old woman with a history of a nonischemic cardiomyopathy and recent admission for pneumonia and atrial fibrillation. Patient was discharged recently after cardioversion. She was placed on therapy for suspected pneumonia. She reported some improvement of her symptoms immediately after discharge, but eventually began to experience more significant shortness of breath. Her breathing difficulties progressed to the point where she needed to sit in a recliner to sleep. She did report some mild dizziness and lightheadedness generally associated with changes in position. She did not have symptoms of chest discomfort or chest pain. She was not aware of significant palpitations or tachycardia. She felt that her abdomen was somewhat distended. She also noticed some mild lower extremity edema. She continued to have a nonproductive cough. She was not aware of any subjective fevers or chills. Based on the nature of the symptoms she presented to [facility] emergency room where she was discovered to have evidence of pulmonary vascular congestion and atrial fibrillation with a rapid ventricular response. Patient was administered diuretic and bolus doses of both diltiazem and metoprolol. At the time of my interview the patient states that she is feeling slightly better. She continues to have an element of dyspnea with ambulation around her hospital room. She did not report any dizziness or lightheadedness. Is not currently aware of any palpitations. Primarily she is somewhat fatigued and tired. Allergies Allergy/AdvReac Type Severity Reaction Status Date / Time fentanyl Allergy Mild RASH,ITCHIN Verified 06/06/18 10:26 G Home Medications Home Medications Medication Instructions Recorded Confirmed Type atorvastatin 10 mg PO DAILY 05/31/18 06/28/18 History digoxin 0.125 mg PO DAILY 05/31/18 06/28/18 History diphenhydramine HCl [Benadryl] 25 mg PO QAM 05/31/18 06/28/18 History docusate sodium [Colace] 100 mg PO BID 05/31/18 06/28/18 History gabapentin 600 mg PO BID 05/31/18 06/28/18 History hydroxyzine pamoate [Vistaril] 50 mg PO QPM 05/31/18 06/28/18 History metformin 500 mg PO BID 05/31/18 06/28/18 History omeprazole 20 mg PO DAILY 05/31/18 06/28/18 History quetiapine [Seroquel] 50 mg PO DAILY 05/31/18 06/28/18 History quetiapine [Seroquel] 300 mg PO HS 05/31/18 06/28/18 History rivaroxaban [Xarelto] 20 mg PO DAILY 05/31/18 06/28/18 History trazodone 600 mg PO HS 05/31/18 06/28/18 History albuterol sulfate 2 inha INH QID PRN #6.7 gm 06/12/18 06/28/18 Rx potassium chloride 20 meq PO DAILY 06/28/18 06/28/18 History bumetanide 1 mg PO QAM #30 tab 07/06/18 Rx colchicine [Colcrys] 0.6 mg PO BID #60 tab 07/06/18 Rx metoprolol succinate [Toprol XL] 50 mg PO DAILY #30 tab 07/06/18 Rx Patient History Medical History Morbid obesity Asthma (Chronic) CHF (congestive heart failure) (Chronic) 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% per echo 06/06/18; non-obstructive CAD per cath 2006 HTN (hypertension) (Chronic) PTSD (post-traumatic stress disorder) (Chronic) Atrial fibrillation Diabetes type 2, controlled patient denies having diabetes, does not want further testing even though she is prescribed Metformin GERD (gastroesophageal reflux disease) Pulmonary embolism 2013 while living in [place] Schizoaffective disorder Ventricular arrhythmia Surgical History Pacemaker (Chronic) AICD (automatic cardioverter/defibrillator) present S/P ORIF (open reduction internal fixation) fracture ankle, left S/P tubal ligation Family History Mother , in her 70s Lung cancer Breast cancer Congestive heart failure (CHF) Father No problems noted. Other Hypertension Social History marital status: marital status details: 5 kids Current Living Situation: Alone and Family Current Living Situation Comment: [facility] Resident 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: previously worked as [id number] Other Information That Helps Us Care for You: No other: lives in [place] Feels Safe at Home: Yes Safety Concerns: Feels Safe At This Time Smoking Status: Former smoker Years Smoked: 30 Cigarettes per Day: <1 ppd Smoking End Date: 2015 Hx Alcohol Use: No Hx Substance Use: No Beliefs That Will Affect Care: None Preferred Language: Arabic Review of Systems Complete. Pertinent positives noted in the history of present illness. Physical Exam 2 Vital Signs (Past 24 Hours): Last Vital Signs Temp 36.6 C 06/29/18 11:41 Pulse 135 H 06/29/18 11:41 Resp 28 H 06/29/18 11:41 BP 106/70 06/29/18 11:41 Pulse Ox 92 06/29/18 11:41 Physical Exam: She is alert and oriented x3. Mood affect appear normal. She answered all questions appropriately. HEENT: Sclerae are anicteric. Pupils are equal and reactive to light and accommodation. Extraocular movements were intact. Neuro: Cranial nerves intact Neck: Examination of the submandibular region did not reveal any significant lymphadenopathy. Carotids are palpable bilaterally and free of bruits on auscultation. There was no evidence of jugular venous distention but her neck tissue was somewhat redundant. The thyroid was not enlarged. Lungs: Lungs are clear to auscultation bilaterally. There are no rales wheezes or rhonchi. She has normal respiratory effort without use of accessory muscles. There is normal pulmonary excursion. Cardiac: The rhythm was irregular. S1 and S2 were normal. There are no murmurs on examination. The PMI was not markedly displaced on palpation. Abdomen: The abdomen was soft and nontender. Extremities: Patient has bilateral radial pulses that are equal in intensity. There is no evidence cyanosis or clubbing. There was no evidence of significant peripheral edema bilaterally. Skin: There are no rashes noted on examination today. Results & Data Laboratory Results Abnormal Lab Results 06/28/18 06/29/18 22:17 06:38 Sodium 138 Potassium 4.0 D Chloride 100 Carbon Dioxide 30 Anion Gap 8.0 BUN 12 Creatinine 0.90 Est Cr Clr Drug Dosing 92.0 Est GFR ( Amer) 82.8 Est GFR (Non-Af Amer) 71.5 BUN/Creatinine Ratio 13.1 Glucose 98 Calcium 9.1 Magnesium 2.3 Digoxin 9.9 H* Diagnostic Findings Chest x-ray obtained at the time of admission suggested pulmonary edema Echocardiogram obtained during her last admission revealed an ejection fraction of 20-25%. There was severe left atrial dilation. There was evidence of a mild to moderate pericardial effusion. ECG Additional Comments: EKG reveals atrial fibrillation and a rapid ventricular response. Right bundle branch block. _ (1) Cardiomyopathy Cardiomyopathy type: dilated Qualified Code(s): I42.0 - Dilated cardiomyopathy
--- NOTE | 2018-06-29 16:17 | Hospitalist Progress Note ---
Date of Service June 29, 2018 Assessment & Plan (1) Acute on chronic systolic heart failure: - Currently about a negatie 500 mL diuresis so far and reports slightly improved SOB - Recently treated for suspected PNA/COPD exacerbation and with her A Fib RVR maybe contributing to exacerbation; likely a component of TOMI/OHS and was recommended to have formal sleep study as this could be contributing - Lasix 40 mg IV BID and monitor renal function; daily weights and I&Os - Spironolactone 12.5 mg daily; Losartan 25 mg daily (2) Atrial fibrillation with RVR: - Was successfully cardioverted on prior admission but now converted back - cardiology plans to interrogate ICD to assess when conversion occurred - Continues to have some uncontrolled heart rates - Planning to change Coreg to Metoprolol 12.5 mg TID to try to obtain a more aggressive rate control strategy - however may need consideration for AV node ablation and biventricular ICD per cardiology - Digoxin 0.125 mg daily - Xarelto 20 mg daily - Cardiology following - appreciate assistance (3) Presence of single chamber implantable cardioverter-defibrillator (ICD): - Consideration for biventricular ICD pending ability to get better rate control - Planning on interrogation (4) COPD (chronic obstructive pulmonary disease): - Some wheezing on examination today but may be pulmonary edema related - Defer on further Abx or steroids at this time; Albuterol inhaler PRN (5) Pericardial effusion: - mild to moderate on echo from 06/06/18 - No signs of tamponade at this time; repeat echocardiogram ordered Present on Admission?: Yes (6) Chronic respiratory failure with hypoxia: - Last 2-step she qualified for 2 L at rest and 4 L with ambulation - Likely multifactorial between COPD/pulmonary HTN/CHF/obesity hypoventilation - Needs outpatient sleep study Present on Admission?: Yes (7) Schizoaffective disorder: - Seroquel 50 mg AM and 300 mg HS; Trazodone 600 mg HS Present on Admission?: Yes (8) Morbid obesity: BMI 38, but has significant comorbidities including CHF, HTN, etc. Present on Admission?: Yes (9) DVT prophylaxis: - Xarelto Disposition: Await clinical improvement and better rate control; D/C uncertain at this time Subjective Reports feeling a little better since admission. Mostly c/o SOB and a nonproductive cough with wheezing. She reports frequently urinating with the diuretics. HR have remained relatively uncontrolled and attempts at better rate control are in process She is eating and drinking without issue States here legs feel swollen and he is about 10 lbs over her normal weight Constitutional: + weight gain (approx. 10 lbs); no fever, no chills and no anorexia Ear, Nose, Mouth, Throat: + post nasal drip; no sore throat Respiratory: + cough, + dyspnea, + dyspnea on exertion and + wheezing; no sputum production Cardiovascular: + dyspnea at rest, + dyspnea on exertion, + orthopnea, + palpitations and + edema; no chest pain and no calf pain Gastrointestinal: + bloating; no abdominal pain, no nausea and no vomiting Genitourinary (Female): no dysuria Integumentary: + dry skin Physical Exam 2 Vital Signs (Past 24 Hours): Last Vital Signs Temp 36.7 C 06/29/18 15:25 Pulse 110 H 06/29/18 15:25 Resp 20 06/29/18 15:25 BP 134/88 06/29/18 15:25 Pulse Ox 98 06/29/18 15:25 Constitutional: well developed and well nourished; no acute distress and not ill appearing Eyes: + anicteric sclerae Neck: trachea midline Respiratory: normal respiratory effort Auscultation: + diminished lung sounds and + wheezes (b/l mid-lung) Cardiovascular: Rate/Rhythm: + tachycardic; + abnormal rhythm Heart Sounds : no murmur Extremities: no edema Gastrointestinal (Abdomen): Inspection/Auscultation: + abdomen distended and normal bowel sounds Percussion/Palpation: abdomen soft; abdomen nontender Musculoskeletal: Head/Neck/Chest: normocephalic, head atraumatic and neck supple Skin: no rashes, warm and dry Neurologic: moves all extremities Psychiatric: A+Ox3, euthymic affect _ (1) COPD (chronic obstructive pulmonary disease) COPD type: unspecified COPD Chronic bronchitis type: Emphysema type: Qualified Code(s): J44.9 - Chronic obstructive pulmonary disease, unspecified (2) Schizoaffective disorder Schizoaffective disorder type: other Qualified Code(s): F25.8 - Other schizoaffective disorders
[2018-06-29] MEDS: METOPROLOL TARTRATE 25 MG TAB PO SCH ×2 (16:52→21:09)
[2018-06-29] MEDS: DIGOXIN 0.125 MG TAB PO SCH (16:55)
[2018-06-29] MEDS: BENZONATATE 100 MG CAPSULE PO PRN (17:40)
[2018-06-29] MEDS: RIVAROXABAN 20 MG TAB PO SCH (17:40)
[2018-06-29] MEDS: GUAIFENESIN/CODEINE 100MG/10MG 5ML UDC PO PRN (17:40)
[2018-06-29] MEDS: TRAZODONE HCL 100 MG TAB PO SCH (21:07)
[2018-06-29] MEDS: QUETIAPINE FUMARATE 300 MG TABLET PO SCH (21:11)
[2018-06-29] MEDS ORDERED: ALBUMIN 25% 50 ML IV ONE (23:50)
[2018-06-30] MEDS: BENZONATATE 100 MG CAPSULE PO PRN ×3 (04:38→19:51)
[2018-06-30 08:34] LABS: Hematocrit (blood only) 31.3 % (37-47); Hemoglobin 10.1 g/dL (12.0-16.0); Mean Corpuscular Hgb Conc 32.3 g/dL (32-36); Mean Corpuscular Volume 88.9 fL (80-100); Mean Platelet Volume 9.3 fL (7.4-10.4); Platelet Count 215 K/uL (130-400); RDW Coefficient of Variation 15.4 % (11.5-14.5); RDW Standard Deviation 49.1 fL (36.4-46.3); Red Blood Count 3.52 M/uL (4.2-5.4); White Blood Count 9.49 K/uL (4.8-10.8)
[2018-06-30] MEDS: GUAIFENESIN/CODEINE 100MG/10MG 5ML UDC PO PRN ×2 (08:53→17:46)
[2018-06-30] MEDS: POTASSIUM CHLORIDE 20 MEQ TABCR PO SCH ×2 (08:54→21:15)
[2018-06-30] MEDS: GABAPENTIN 600 MG TAB PO SCH ×2 (08:54→21:17)
[2018-06-30] MEDS: DOCUSATE SODIUM 100 MG CAP PO SCH ×2 (08:55→21:17)
[2018-06-30] MEDS: QUETIAPINE FUMARATE 25 MG TABLET PO SCH (08:55)
[2018-06-30] MEDS: PANTOprazole 40 MG TAB PO SCH (08:56)
[2018-06-30] MEDS: LOSARTAN POTASSIUM 25 MG TAB PO SCH (08:56)
[2018-06-30] MEDS: FUROSEMIDE 40 MG in SYRINGE 0 ML IV SCH ×2 (08:57→17:19)
[2018-06-30] MEDS: ATORVASTATIN 10 MG TAB PO SCH (08:57)
[2018-06-30] MEDS: METOPROLOL TARTRATE 25 MG TAB PO SCH ×3 (08:59→21:08)
[2018-06-30] MEDS: SPIRONOLACTONE 25 MG TAB PO SCH (09:00)
[2018-06-30 09:02] LABS: Calcium 8.7 mg/dl (8.5-10.1); Creatinine Clr Calc Pharmacy 82.8 ml/min; Est GFR (African American) 72.9; Est GFR (Non-African American) 62.9
--- NOTE | 2018-06-30 11:47 | Cardiology Progress Note ---
Date of Service June 30, 2018 Assessment & Plan (1) Atrial fibrillation with RVR: She continues in atrial fibrillation. Overall I think her ventricular rates are slightly improved. I will monitor her blood pressure throughout the course of the day and if adequate increase her dose of metoprolol this evening. She will continue on anticoagulation. (2) Shortness of breath: Subjectively improved. Her lung examination is relatively benign. She did affect a mild diuresis yesterday will continue on oral Lasix here in the hospital. (3) Pericardial effusion: Echocardiogram pending. (4) Presence of single chamber implantable cardioverter-defibrillator (ICD): She has a [employer] device. I will perform an interrogation during her hospitalization. This may give us some insight into when she returned to atrial fibrillation. (5) Cardiomyopathy: [place] to be nonischemic based on coronary angiography performed in 2006. Patient's outpatient medical regimen consists of a beta-julee, ARB and Spironolactone. She would be a good candidate for Entresto. However, this may be difficult to initiate given her relative hypotension. Subjective This morning the patient claims to be feeling better. She continues to have an element of dyspnea primarily while talking on the phone. She stated that when ambulating to the bathroom and back her breathing was much improved. She slept somewhat upright in the bed and had some discomfort while lying on her right side. She has not report dizziness or lightheadedness. She has not been aware of any palpitations. Physical Exam 2 Vital Signs (Past 24 Hours): Last Vital Signs Temp 36.6 C 06/30/18 07:57 Pulse 93 H 06/30/18 07:57 Resp 18 06/30/18 07:57 BP 152/72 H 06/30/18 07:57 Pulse Ox 96 06/30/18 07:57 Physical Exam: She is alert and oriented x3. Mood affect appear normal. She answered all questions appropriately. HEENT: Sclerae are anicteric. Pupils are equal and reactive to light and accommodation. Extraocular movements were intact. Neuro: Cranial nerves intact Neck: Examination of the submandibular region did not reveal any significant lymphadenopathy. Carotids are palpable bilaterally and free of bruits on auscultation. There was no evidence of jugular venous distention. The thyroid was not enlarged. Lungs: Lungs are clear to auscultation bilaterally. There are no rales wheezes or rhonchi. She has normal respiratory effort without use of accessory muscles. There is normal pulmonary excursion. Cardiac: The rhythm was irregular. S1 and S2 were normal. There are no murmurs on examination. The PMI was not markedly displaced on palpation. Abdomen: The abdomen was soft and nontender. Extremities: Patient has bilateral radial pulses that are equal in intensity. There is no evidence cyanosis or clubbing. There was no evidence of significant peripheral edema bilaterally. Skin: There are no rashes noted on examination today. Results & Data Laboratory Results Abnormal Lab Results 06/29/18 06/30/18 06/30/18 15:19 08:20 08:20 WBC 9.49 RBC 3.52 L Hgb 10.1 L Hct 31.3 L MCV 88.9 MCH 28.7 MCHC 32.3 RDW Std Deviation 49.1 H RDW Coeff of [place] 15.4 H Plt Count 215 MPV 9.3 Sodium 138 Potassium 4.0 Chloride 101 Carbon Dioxide 30 Anion Gap 7.0 BUN 14 Creatinine 1.00 Est Cr Clr Drug Dosing 82.8 Est GFR ( Amer) 72.9 Est GFR (Non-Af Amer) 62.9 BUN/Creatinine Ratio 14.0 Glucose 96 Calcium 8.7 Digoxin 1.1 ECG Additional Comments: Telemetry demonstrates atrial fibrillation with rapid ventricular response _ (1) Cardiomyopathy Cardiomyopathy type: dilated Qualified Code(s): I42.0 - Dilated cardiomyopathy
[2018-06-30] MEDS: DIGOXIN 0.125 MG TAB PO SCH (15:01)
--- NOTE | 2018-06-30 16:05 | Hospitalist Progress Note ---
Date of Service June 30, 2018 Assessment & Plan (1) Acute on chronic systolic heart failure: - diuresed slightly, breathing improved though - Recently treated for suspected PNA/COPD exacerbation and with her A Fib RVR maybe contributing to exacerbation; likely a component of TOMI/OHS and was recommended to have formal sleep study as this could be contributing - continue Lasix 40 mg IV BID and monitor renal function, Cr stable at 1.0, has not gone up - Spironolactone 12.5 mg daily; hold Losartan 25 mg daily due to low BP (2) Atrial fibrillation with RVR: - Was successfully cardioverted on prior admission but now converted back - cardiology plans to interrogate ICD to assess when conversion occurred - Continues to have some uncontrolled heart rates, 100-115 at rest - Planning to change Coreg to Metoprolol 12.5 mg TID to try to obtain a more aggressive rate control strategy - however may need consideration for AV node ablation and biventricular ICD per cardiology - Digoxin 0.125 mg daily - Xarelto 20 mg daily - Cardiology following - appreciate assistance will hold Losartan to try for more room to titrate up on Metoprolol (3) Presence of single chamber implantable cardioverter-defibrillator (ICD): - Consideration for biventricular ICD pending ability to get better rate control (4) COPD (chronic obstructive pulmonary disease): - Some wheezing on examination today but may be pulmonary edema related - Defer on further Abx or steroids at this time; Albuterol inhaler PRN (5) Pericardial effusion: - mild to moderate on echo from 06/06/18 - No signs of tamponade at this time (6) Chronic respiratory failure with hypoxia: - Last 2-step she qualified for 2 L at rest and 4 L with ambulation - Likely multifactorial between COPD/pulmonary HTN/CHF/obesity hypoventilation - Needs outpatient sleep study (7) Schizoaffective disorder: - Seroquel 50 mg AM and 300 mg HS; Trazodone 600 mg HS (8) Morbid obesity: BMI 38, but has significant comorbidities including CHF, HTN, etc. (9) DVT prophylaxis: - Xarelto Disposition: Await clinical improvement and better rate control; D/C uncertain at this time Subjective patient laying in bed, says her breathing is okay no palpitations, no chest pain or pressure reviewed tele, HR in the 100-115 range fail discussed with Dr. Pelayo, limited room to increase metoprolol due to low normal blood pressurs reviewed labs, stable Review of Systems All systems reviewed & are unremarkable except as noted in HPI & below Cardiovascular: + dyspnea on exertion and + orthopnea; no chest pain Physical Exam 2 Vital Signs (Past 24 Hours): Last Vital Signs Temp 36.8 C 06/30/18 15:26 Pulse 102 H 06/30/18 15:26 Resp 18 06/30/18 15:26 BP 102/65 06/30/18 15:26 Pulse Ox 99 06/30/18 15:26 Constitutional: WD/WN, vitals as above + obese Eyes: PERRL, conjunctivae normal, anicteric sclerae ENMT: external ear and nose normal, oropharynx normal Neck: trachea midline, no thyromegaly Respiratory: normal respiratory effort, lungs clear to auscultation Gastrointestinal (Abdomen): normal bowel sounds, soft, nontender, no hepatosplenomegaly Musculoskeletal: no cyanosis or clubbing, extremities motor strength 5/5 Skin: no rashes, warm and dry Neurologic: patellar DTR's 2+ bilat, sensation intact and PERRL, EOMI, accommodation nl, no face palsy, no dysarthria Psychiatric: A+Ox3, euthymic affect Results & Data Laboratory Results Laboratory Results - last 24 hr 06/29/18 06/30/18 06/30/18 15:19 08:20 08:20 WBC 9.49 RBC 3.52 L Hgb 10.1 L Hct 31.3 L MCV 88.9 MCH 28.7 MCHC 32.3 RDW Std Deviation 49.1 H RDW Coeff of [place] 15.4 H Plt Count 215 MPV 9.3 Sodium 138 Potassium 4.0 Chloride 101 Carbon Dioxide 30 Anion Gap 7.0 BUN 14 Creatinine 1.00 Est Cr Clr Drug Dosing 82.8 Est GFR ( Amer) 72.9 Est GFR (Non-Af Amer) 62.9 BUN/Creatinine Ratio 14.0 Glucose 96 Calcium 8.7 Digoxin 1.1 Medications Administered Current Inpatient Medications Acetaminophen (Tylenol) 650 mg PO Q4H PRN PRN Reason: Pain or Fever Stop: 07/28/18 17:26 Last Admin: 06/29/18 21:14 Dose: 650 mg Albuterol (Ventolin Hfa) 2 puffs INH QID PRN PRN Reason: shortness of breath or wheezin Stop: 07/28/18 17:26 Atorvastatin Calcium (Lipitor) 10 mg PO DAILY [facility] Stop: 07/29/18 08:59 Last Admin: 06/30/18 08:57 Dose: 10 mg Benzonatate (Tessalon Perle) 100 mg PO TID PRN PRN Reason: Cough Stop: 07/29/18 20:59 Last Admin: 06/30/18 14:51 Dose: 100 mg Digoxin (Lanoxin) 0.125 mg PO DAILY@1600 [facility] Stop: 07/28/18 17:26 Last Admin: 06/30/18 15:01 Dose: 0.125 mg Diphenhydramine HCl (Benadryl) 25 mg PO QAM [facility] Stop: 07/29/18 08:59 Last Admin: 06/30/18 09:05 Dose: 25 mg Docusate Sodium (Colace) 100 mg PO BID [facility] Stop: 07/28/18 20:59 Last Admin: 06/30/18 08:55 Dose: 100 mg Gabapentin (Neurontin) 600 mg PO BID [facility] Stop: 07/28/18 20:59 Last Admin: 06/30/18 08:54 Dose: 600 mg Guaifenesin/Codeine Phosphate (Robitussin-Ac Sugar Free) 5 ml PO Q6H PRN PRN Reason: Cough Stop: 07/29/18 16:57 Last Admin: 06/30/18 08:53 Dose: 5 ml Hydroxyzine HCl (Vistaril) 50 mg PO QPM [facility] Stop: 07/28/18 20:59 Last Admin: 06/29/18 21:12 Dose: 50 mg Furosemide 40 mg/ Syringe 4 mls @ 4 mls/min IV [id number] [facility] M Stop: 07/29/18 08:59 Last Admin: 06/30/18 08:57 Dose: 4 mls/min Losartan Potassium (Cozaar) 25 mg PO DAILY [facility] Stop: 07/29/18 08:59 Last Admin: 06/30/18 08:56 Dose: 25 mg Metoprolol Tartrate (Lopressor) 5 mg IV Q4H PRN PRN Reason: HR greater than 120 bpm Stop: 07/29/18 11:38 Metoprolol Tartrate (Lopressor) 12.5 mg PO TID [facility] Stop: 07/29/18 14:19 Last Admin: 06/30/18 15:01 Dose: 12.5 mg Morphine Sulfate (Morphine Sulfate) 2 mg IV Q30M PRN PRN Reason: Chest Pain Stop: 07/12/18 17:26 Nitroglycerin (Nitrostat) 0.4 mg SL UD PRN PRN Reason: Chest Pain Stop: 07/28/18 17:26 Ondansetron HCl (Zofran) 4 mg IV Q6H PRN PRN Reason: Nausea Stop: 07/28/18 17:26 Pantoprazole Sodium (Protonix) 40 mg PO DAILY [facility] Stop: 07/29/18 08:59 Last Admin: 06/30/18 08:56 Dose: 40 mg Potassium Chloride (Klor-Con M20) 20 meq PO BID [facility] Stop: 07/28/18 20:59 Last Admin: 06/30/18 08:54 Dose: 20 meq Quetiapine Fumarate (Seroquel) 50 mg PO DAILY [facility] Stop: 07/29/18 08:59 Last Admin: 06/30/18 08:55 Dose: 50 mg Quetiapine Fumarate (Seroquel) 300 mg PO [facility] Stop: 07/28/18 20:59 Last Admin: 06/29/18 21:11 Dose: 300 mg Rivaroxaban (Xarelto) 20 mg PO DAILY@1800 [facility] Stop: 07/28/18 18:59 Last Admin: 06/29/18 17:40 Dose: 20 mg Spironolactone (Aldactone) 12.5 mg PO DAILY [facility] Stop: 07/29/18 08:59 Last Admin: 06/30/18 09:00 Dose: 12.5 mg Trazodone HCl (Desyrel) 600 mg PO [facility] Stop: 07/28/18 20:59 Last Admin: 06/29/18 21:07 Dose: 600 mg _ (1) Schizoaffective disorder Schizoaffective disorder type: other Qualified Code(s): F25.8 - Other schizoaffective disorders (2) COPD (chronic obstructive pulmonary disease) COPD type: unspecified COPD Chronic bronchitis type: Emphysema type: Qualified Code(s): J44.9 - Chronic obstructive pulmonary disease, unspecified
[2018-06-30] MEDS: RIVAROXABAN 20 MG TAB PO SCH (17:19)
[2018-06-30] MEDS ORDERED: MoRPHine SULFATE 4 MG/ML 1 ML CARP\\VIAL ONE (21:11)
[2018-06-30] MEDS: MoRPHine SULFATE 2 MG/ML CARP IV PRN (21:13)
[2018-06-30] MEDS: TRAZODONE HCL 100 MG TAB PO SCH (21:16)
[2018-06-30] MEDS: QUETIAPINE FUMARATE 300 MG TABLET PO SCH (21:21)
[2018-07-01 07:25] LABS: Hematocrit (blood only) 32.1 % (37-47); Hemoglobin 10.3 g/dL (12.0-16.0); Mean Corpuscular Hgb Conc 32.1 g/dL (32-36); Mean Corpuscular Volume 89.9 fL (80-100); Mean Platelet Volume 9.2 fL (7.4-10.4); Platelet Count 224 K/uL (130-400); RDW Coefficient of Variation 15.2 % (11.5-14.5); RDW Standard Deviation 49.5 fL (36.4-46.3); Red Blood Count 3.57 M/uL (4.2-5.4); White Blood Count 9.79 K/uL (4.8-10.8)
[2018-07-01 07:58] LABS: BUN Creatinine Ratio 15.1 (10-20); Calcium 8.6 mg/dl (8.5-10.1); Creatinine Clr Calc Pharmacy 80.8 ml/min; Est GFR (African American) 70.4; Est GFR (Non-African American) 60.7
[2018-07-01] MEDS: QUETIAPINE FUMARATE 25 MG TABLET PO SCH (08:36)
[2018-07-01] MEDS: ATORVASTATIN 10 MG TAB PO SCH (08:37)
[2018-07-01] MEDS: DOCUSATE SODIUM 100 MG CAP PO SCH ×2 (08:37→20:56)
[2018-07-01] MEDS: PANTOprazole 40 MG TAB PO SCH (08:37)
[2018-07-01] MEDS: GUAIFENESIN/CODEINE 100MG/10MG 5ML UDC PO PRN (08:37)
[2018-07-01] MEDS: BENZONATATE 100 MG CAPSULE PO PRN (08:37)
[2018-07-01] MEDS: SPIRONOLACTONE 25 MG TAB PO SCH (08:37)
[2018-07-01] MEDS: GABAPENTIN 600 MG TAB PO SCH ×2 (08:37→20:56)
[2018-07-01] MEDS: POTASSIUM CHLORIDE 20 MEQ TABCR PO SCH ×2 (08:37→20:57)
[2018-07-01] MEDS: METOPROLOL TARTRATE 25 MG TAB PO SCH ×3 (08:37→20:59)
[2018-07-01] MEDS: FUROSEMIDE 40 MG in SYRINGE 0 ML IV SCH ×2 (08:38→16:09)
--- NOTE | 2018-07-01 12:40 | Hospitalist Progress Note ---
Date of Service July 01, 2018 Assessment & Plan (1) Acute on chronic systolic heart failure: - diuresing steadily but still requring oxygen - continue Lasix 40 mg IV BID, Cr stable, will give Zaroxolyn 5mg tomorrow AM to enhance diuresis - Spironolactone 12.5 mg daily; hold Losartan 25 mg daily due to low BP (2) Atrial fibrillation with RVR: - Was successfully cardioverted on prior admission but now converted back - cardiology plans to interrogate ICD to assess when conversion occurred - Continues to have some uncontrolled heart rates, 100-115 at rest - increase Metoprolol to 25mg TID as long as blood pressure allows - Digoxin 0.125 mg daily - Xarelto 20 mg daily - Cardiology following - appreciate assistance (3) Presence of single chamber implantable cardioverter-defibrillator (ICD): - Consideration for biventricular ICD pending ability to get better rate control may need ablation and pacer (4) COPD (chronic obstructive pulmonary disease): - no wheezing on exam - Defer on further Abx or steroids at this time; Albuterol inhaler PRN (5) Pericardial effusion: - getting a little larger on most recent follow up echo fluid is posterior, difficult to access to drain did have a viral illness in May no signs of tamponade (6) Chronic respiratory failure with hypoxia: - Last 2-step she qualified for 2 L at rest and 4 L with ambulation - Likely multifactorial between COPD/pulmonary HTN/CHF/obesity hypoventilation - Needs outpatient sleep study (7) Schizoaffective disorder: - Seroquel 50 mg AM and 300 mg HS; Trazodone 600 mg HS (8) Morbid obesity: BMI 38, but has significant comorbidities including CHF, HTN, etc. (9) DVT prophylaxis: - Xarelto Disposition: unsure of discharge, needs better HR control and resolution of acute heart failure Subjective patient feeling well, less shortness of breath asking to go home, discussed that HR too high she is still making adequate amount of urine discussed with Dr. Pelayo, agrees with holding ARB for now Cr is stable c/o a cough, white frothy sputum, no fever, no chills eating well Review of Systems All systems reviewed & are unremarkable except as noted in HPI & below Respiratory: + cough, + dyspnea on exertion and + sputum production (white frothy) Physical Exam 2 Vital Signs (Past 24 Hours): Last Vital Signs Temp 36.5 C 07/01/18 10:52 Pulse 112 H 07/01/18 10:52 Resp 16 07/01/18 10:52 BP 109/71 07/01/18 10:52 Pulse Ox 97 07/01/18 10:52 Constitutional: WD/WN, vitals as above + obese Eyes: PERRL, conjunctivae normal, anicteric sclerae ENMT: external ear and nose normal, oropharynx normal Neck: trachea midline, no thyromegaly Respiratory: normal respiratory effort, lungs clear to auscultation Cardiovascular: Rate/Rhythm: + tachycardic (100-120s); + abnormal rhythm ( irregular) Heart Sounds: normal S1 and normal S2; no murmur Vessels: no JVD Extremities: normal capillary refill Gastrointestinal (Abdomen): normal bowel sounds, soft, nontender, no hepatosplenomegaly Musculoskeletal: no cyanosis or clubbing, extremities motor strength 5/5 Skin: no rashes, warm and dry Neurologic: patellar DTR's 2+ bilat, sensation intact and PERRL, EOMI, accommodation nl, no face palsy, no dysarthria Psychiatric: A+Ox3, euthymic affect Lymphatic: no cervical or axillary lymphadenopathy Results & Data Laboratory Results Laboratory Results - last 24 hr 07/01/18 07/01/18 07:01 07:01 WBC 9.79 RBC 3.57 L Hgb 10.3 L Hct 32.1 L MCV 89.9 MCH 28.9 MCHC 32.1 RDW Std Deviation 49.5 H RDW Coeff of [place] 15.2 H Plt Count 224 MPV 9.2 Sodium 137 Potassium 4.0 Chloride 100 Carbon Dioxide 29 Anion Gap 8.0 BUN 16 Creatinine 1.03 Est Cr Clr Drug Dosing 80.8 Est GFR ( Amer) 70.4 Est GFR (Non-Af Amer) 60.7 BUN/Creatinine Ratio 15.1 Glucose 98 Calcium 8.6 Medications Administered Current Inpatient Medications Acetaminophen (Tylenol) 650 mg PO Q4H PRN PRN Reason: Pain or Fever Stop: 07/28/18 17:26 Last Admin: 06/29/18 21:14 Dose: 650 mg Albuterol (Ventolin Hfa) 2 puffs INH QID PRN PRN Reason: shortness of breath or wheezin Stop: 07/28/18 17:26 Atorvastatin Calcium (Lipitor) 10 mg PO DAILY [facility] Stop: 07/29/18 08:59 Last Admin: 07/01/18 08:37 Dose: 10 mg Benzonatate (Tessalon Perle) 100 mg PO TID PRN PRN Reason: Cough Stop: 07/29/18 20:59 Last Admin: 07/01/18 08:37 Dose: 100 mg Digoxin (Lanoxin) 0.125 mg PO DAILY@1600 [facility] Stop: 07/28/18 17:26 Last Admin: 06/30/18 15:01 Dose: 0.125 mg Diphenhydramine HCl (Benadryl) 25 mg PO QAM [facility] Stop: 07/29/18 08:59 Last Admin: 07/01/18 08:37 Dose: 25 mg Docusate Sodium (Colace) 100 mg PO BID [facility] Stop: 07/28/18 20:59 Last Admin: 07/01/18 08:37 Dose: 100 mg Gabapentin (Neurontin) 600 mg PO BID [facility] Stop: 07/28/18 20:59 Last Admin: 07/01/18 08:37 Dose: 600 mg Guaifenesin/Codeine Phosphate (Robitussin-Ac Sugar Free) 5 ml PO Q6H PRN PRN Reason: Cough Stop: 07/29/18 16:57 Last Admin: 07/01/18 08:37 Dose: 5 ml Hydroxyzine HCl (Vistaril) 50 mg PO QPM [facility] Stop: 07/28/18 20:59 Last Admin: 06/30/18 21:17 Dose: 50 mg Furosemide 40 mg/ Syringe 4 mls @ 4 mls/min IV [id number] [facility] Stop: 07/29/18 08:59 Last Admin: 07/01/18 08:38 Dose: 4 mls/min Losartan Potassium (Cozaar) 25 mg PO DAILY [facility] Stop: 07/29/18 08:59 Last Admin: 06/30/18 08:56 Dose: 25 mg Metolazone (Zaroxolyn) 5 mg PO DAILY@0830 [facility] Stop: 08/01/18 08:29 Metoprolol Tartrate (Lopressor) 5 mg IV Q4H PRN PRN Reason: HR greater than 120 bpm Stop: 07/29/18 11:38 Metoprolol Tartrate (Lopressor) 25 mg PO TID [facility] Stop: 07/31/18 13:59 Morphine Sulfate (Morphine Sulfate) 2 mg IV Q30M PRN PRN Reason: Chest Pain Stop: 07/12/18 17:26 Last Admin: 06/30/18 21:13 Dose: 2 mg Nitroglycerin (Nitrostat) 0.4 mg SL UD PRN PRN Reason: Chest Pain Stop: 07/28/18 17:26 Ondansetron HCl (Zofran) 4 mg IV Q6H PRN PRN Reason: Nausea Stop: 07/28/18 17:26 Pantoprazole Sodium (Protonix) 40 mg PO DAILY [facility] Stop: 07/29/18 08:59 Last Admin: 07/01/18 08:37 Dose: 40 mg Potassium Chloride (Klor-Con M20) 20 meq PO BID [facility] Stop: 07/28/18 20:59 Last Admin: 07/01/18 08:37 Dose: 20 meq Quetiapine Fumarate (Seroquel) 50 mg PO DAILY [facility] Stop: 07/29/18 08:59 Last Admin: 07/01/18 08:36 Dose: 50 mg Quetiapine Fumarate (Seroquel) 300 mg PO HS [facility] Stop: 07/28/18 20:59 Last Admin: 06/30/18 21:21 Dose: 300 mg Rivaroxaban (Xarelto) 20 mg PO DAILY@1800 [facility] Stop: 07/28/18 18:59 Last Admin: 06/30/18 17:19 Dose: 20 mg Spironolactone (Aldactone) 12.5 mg PO DAILY [facility] Stop: 07/29/18 08:59 Last Admin: 07/01/18 08:37 Dose: 12.5 mg Trazodone HCl (Desyrel) 600 mg PO HS [facility] Stop: 07/28/18 20:59 Last Admin: 06/30/18 21:16 Dose: 600 mg _ (1) COPD (chronic obstructive pulmonary disease) COPD type: unspecified COPD Chronic bronchitis type: Emphysema type: Qualified Code(s): J44.9 - Chronic obstructive pulmonary disease, unspecified (2) Schizoaffective disorder Schizoaffective disorder type: other Qualified Code(s): F25.8 - Other schizoaffective disorders
[2018-07-01] MEDS: MoRPHine SULFATE 2 MG/ML CARP IV PRN ×2 (14:35→21:06)
--- NOTE | 2018-07-01 14:39 | Cardiology Progress Note ---
Date of Service July 01, 2018 Assessment & Plan (1) Atrial fibrillation with RVR: She continues in atrial fibrillation. It seems as if her rates that improved yesterday to some degree. We are still troubled by relative hypotension. Her losartan was stopped today and her metoprolol dose was increased. Hopefully this will have the desired effect of slowing her ventricular rates. One additional option would be AV node ablation and upgrade of her current ICD to a biventricular device. Use of calcium channel blockers would be less desirable given her cardiomyopathy. Will continue Xarelto for the time being. (2) Shortness of breath: Subjectively improved. Her lung examination is relatively benign. She did affect a mild diuresis yesterday will continue on IV Lasix and metolazone (3) Pericardial effusion: She continues to have a pericardial effusion. This is possibly larger than it was 3 weeks ago. This is of unclear etiology. I would suspect that if this was related to an inflammatory process we would have seen some improvement given her use of prednisone recently. She is not describing chest pains. She is not appear to have any hemodynamic compromise and she had good collapse of the IVC on ECHO which suggest there are not elevated right atrial pressures. The location of the effusion is entirely posterior which makes percutaneous drainage more difficult. I will monitor her clinical progress and consider drainage for either diagnostic purposes with the absence of improvement in her clinical condition. (4) Presence of single chamber implantable cardioverter-defibrillator (ICD): She has a [employer] device. I will perform an interrogation during her hospitalization. This may give us some insight into when she returned to atrial fibrillation. (5) Cardiomyopathy: [place] to be nonischemic based on coronary angiography performed in 2006. Patient's outpatient medical regimen consists of a beta-julee, ARB and Spironolactone. She would be a good candidate for Entresto. However, this may be difficult to initiate given her relative hypotension. ARB stopped at least temporarily to facilitate better rate control with higher doses of metoprolol. Subjective In general the patient is feeling better. She is anxious to go home. She still reports some discomfort on her right side when she lays on that side. This is not present at other times. She is more ambulatory but still has an element of dyspnea with ambulation. This is improved overall. No dizziness or lightheadedness. Physical Exam 2 Vital Signs (Past 24 Hours): Last Vital Signs Temp 36.5 C 07/01/18 10:52 Pulse 112 H 07/01/18 10:52 Resp 16 07/01/18 10:52 BP 109/71 07/01/18 10:52 Pulse Ox 97 07/01/18 10:52 Physical Exam: The patient is alert and oriented. Mood and affect appeared normal. He answered all questions appropriately. HEENT: Pupils are equal and reactive to light and accommodation. Extraocular movements are intact. The sclerae are anicteric. Neuro: Cranial nerves intact Lungs: Clear to auscultation bilaterally. He has good air movement without use of accessory muscles. No rales wheezes or rhonchi. Cardiac: Heart demonstrates an irregular rate and rhythm. Normal S1 and S2. Holosystolic murmur of variable intensity. Pulses: The patient has palpable radial pulses bilaterally that are equal in intensity Extremities: There was no evidence of hypoperfusion. There is no cyanosis or clubbing. There is no edema. Skin: I did not appreciate any rashes on examination today. Results & Data Laboratory Results Abnormal Lab Results 07/01/18 07/01/18 07:01 07:01 WBC 9.79 RBC 3.57 L Hgb 10.3 L Hct 32.1 L MCV 89.9 MCH 28.9 MCHC 32.1 RDW Std Deviation 49.5 H RDW Coeff of [place] 15.2 H Plt Count 224 MPV 9.2 Sodium 137 Potassium 4.0 Chloride 100 Carbon Dioxide 29 Anion Gap 8.0 BUN 16 Creatinine 1.03 Est Cr Clr Drug Dosing 80.8 Est GFR ( Amer) 70.4 Est GFR (Non-Af Amer) 60.7 BUN/Creatinine Ratio 15.1 Glucose 98 Calcium 8.6 Diagnostic Findings Echocardiogram performed yesterday reveals severely reduced LV systolic function , severe mitral regurgitation and a moderate size pericardial effusion. ECG Additional Comments: Telemetry demonstrates persistent atrial fibrillation with high ventricular rates _ (1) Cardiomyopathy Cardiomyopathy type: dilated Qualified Code(s): I42.0 - Dilated cardiomyopathy
[2018-07-01] MEDS: DIGOXIN 0.125 MG TAB PO SCH (16:08)
[2018-07-01] MEDS: RIVAROXABAN 20 MG TAB PO SCH (16:09)
[2018-07-01] MEDS: TRAZODONE HCL 100 MG TAB PO SCH (20:57)
[2018-07-01] MEDS: QUETIAPINE FUMARATE 300 MG TABLET PO SCH (21:00)
[2018-07-01] MEDS ORDERED: MoRPHine SULFATE 4 MG/ML 1 ML CARP\\VIAL ONE (21:04)
[2018-07-02] MEDS: POTASSIUM CHLORIDE 20 MEQ TABCR PO SCH ×2 (08:02→20:26)
[2018-07-02] MEDS: FUROSEMIDE 40 MG in SYRINGE 0 ML IV SCH (08:02)
[2018-07-02] MEDS: DOCUSATE SODIUM 100 MG CAP PO SCH ×2 (08:03→20:26)
[2018-07-02] MEDS: PANTOprazole 40 MG TAB PO SCH (08:03)
[2018-07-02] MEDS: GABAPENTIN 600 MG TAB PO SCH ×2 (08:03→20:27)
[2018-07-02] MEDS: ATORVASTATIN 10 MG TAB PO SCH (08:03)
[2018-07-02] MEDS: SPIRONOLACTONE 25 MG TAB PO SCH (08:04)
[2018-07-02] MEDS: METOPROLOL TARTRATE 25 MG TAB PO SCH ×4 (08:06→20:25)
[2018-07-02] MEDS: QUETIAPINE FUMARATE 25 MG TABLET PO SCH (08:07)
[2018-07-02 08:08] LABS: BUN Creatinine Ratio 16.1 (10-20); Calcium 8.5 mg/dl (8.5-10.1); Est GFR (African American) 74.7; Est GFR (Non-African American) 64.5; Potassium 4.4 mmol/L (3.5-5.1)
[2018-07-02] MEDS ORDERED: metOLazone 5 MG TABLET PO SCH (08:30)
[2018-07-02] MEDS: GUAIFENESIN/CODEINE 100MG/10MG 5ML UDC PO PRN (09:00)
--- NOTE | 2018-07-02 13:15 | Hospitalist Progress Note ---
Date of Service July 02, 2018 Assessment & Plan (1) Acute on chronic systolic heart failure: - diuresed about 2000mL since admission - stop Lasix 40 mg IV BID, Cr stable, - start Bumex 1mg PO BID, would continue this on discharge - Spironolactone 12.5 mg daily; hold Losartan 25 mg daily due to low BP, likely continue to hold on discharge acute component resolved, lungs are clear, no edema in legs, breathing much better (2) Atrial fibrillation with RVR: - Was successfully cardioverted on prior admission but now converted back - - Continues to have some uncontrolled heart rates, 90s at rest but up to 110's when awake/walking - increase Metoprolol to 25mg QID as long as blood pressure allows - Digoxin 0.125 mg daily - Xarelto 20 mg daily - Cardiology following - appreciate assistance likely a good candidate for ablation and biventricular pacing Dr. Pelayo unsure if this is necessary this admission, would like to continue to titrate upward on metoprolol (3) Presence of single chamber implantable cardioverter-defibrillator (ICD): - Consideration for biventricular ICD pending ability to get better rate control may need ablation and pacer (4) COPD (chronic obstructive pulmonary disease): - no wheezing on exam - Defer on further Abx or steroids at this time; Albuterol inhaler PRN (5) Pericardial effusion: - getting a little larger on most recent follow up echo fluid is posterior, difficult to access to drain did have a viral illness in May no signs of tamponade (6) Chronic respiratory failure with hypoxia: - Last 2-step she qualified for 2 L at rest and 4 L with ambulation - Likely multifactorial between COPD/pulmonary HTN/CHF/obesity hypoventilation - Needs outpatient sleep study (7) Schizoaffective disorder: - Seroquel 50 mg AM and 300 mg HS; Trazodone 600 mg HS (8) Morbid obesity: BMI 38, but has significant comorbidities including CHF, HTN, etc. (9) DVT prophylaxis: - Xarelto Disposition: check labs in the AM Bumex 1mg BID now (new medication) follow HR on increased dose of metoprolol 25mg QID follow I/O and weight discuss with cardiology tomorrow about plans for ablation? Subjective patient breathing well, said she walked around the RN station last night, breathing better no edema in legs still has a dry cough reviewed labs, Cr and K stable HR still in 90-110's despite increasing Metoprolol to 25mg TID discussed with Dr. Pelayo, recommends stopping Lasix IV and increasing metoprolol to QID will start Bumex 1mg PO BID discussed ablation and biventricular pacer Dr. Pelayo feels like it would be reasonable, not sure she needs it this admission Review of Systems All systems reviewed & are unremarkable except as noted in HPI & below Respiratory: + cough and + dyspnea on exertion Physical Exam 2 Vital Signs (Past 24 Hours): Last Vital Signs Temp 36.6 C 07/02/18 11:30 Pulse 90 07/02/18 11:30 Resp 18 07/02/18 11:30 BP 99/64 L 07/02/18 11:30 Pulse Ox 98 07/02/18 11:30 Constitutional: WD/WN, vitals as above + obese Eyes: PERRL, conjunctivae normal, anicteric sclerae ENMT: external ear and nose normal, oropharynx normal Neck: trachea midline, no thyromegaly Respiratory: normal respiratory effort, lungs clear to auscultation Cardiovascular: Rate/Rhythm: + tachycardic (100's); + abnormal rhythm ( irregular) Heart Sounds: normal S1 and normal S2; no murmur Vessels: no JVD Extremities: normal capillary refill Gastrointestinal (Abdomen): normal bowel sounds, soft, nontender, no hepatosplenomegaly Musculoskeletal: no cyanosis or clubbing, extremities motor strength 5/5 Skin: no rashes, warm and dry Neurologic: patellar DTR's 2+ bilat, sensation intact and PERRL, EOMI, accommodation nl, no face palsy, no dysarthria Psychiatric: A+Ox3, euthymic affect Lymphatic: no cervical or axillary lymphadenopathy Results & Data Laboratory Results Laboratory Results - last 24 hr 07/02/18 07:11 Sodium 136 Potassium 4.4 Chloride 102 Carbon Dioxide 28 Anion Gap 6.0 BUN 16 Creatinine 0.98 Est Cr Clr Drug Dosing 85.0 Est GFR ( Amer) 74.7 Est GFR (Non-Af Amer) 64.5 BUN/Creatinine Ratio 16.1 Glucose 97 Calcium 8.5 Medications Administered Current Inpatient Medications Acetaminophen (Tylenol) 650 mg PO Q4H PRN PRN Reason: Pain or Fever Stop: 07/28/18 17:26 Last Admin: 06/29/18 21:14 Dose: 650 mg Albuterol (Ventolin Hfa) 2 puffs INH QID PRN PRN Reason: shortness of breath or wheezin Stop: 07/28/18 17:26 Atorvastatin Calcium (Lipitor) 10 mg PO DAILY [facility] Stop: 07/29/18 08:59 Last Admin: 07/02/18 08:03 Dose: 10 mg Benzonatate (Tessalon Perle) 100 mg PO TID PRN PRN Reason: Cough Stop: 07/29/18 20:59 Last Admin: 07/01/18 08:37 Dose: 100 mg Bumetanide (Bumex) 1 mg PO BID [facility] Stop: 08/01/18 20:59 Digoxin (Lanoxin) 0.125 mg PO DAILY@1600 [facility] Stop: 07/28/18 17:26 Last Admin: 07/01/18 16:08 Dose: 0.125 mg Diphenhydramine HCl (Benadryl) 25 mg PO QAM [facility] Stop: 07/29/18 08:59 Last Admin: 07/02/18 09:00 Dose: 25 mg Docusate Sodium (Colace) 100 mg PO BID [facility] Stop: 07/28/18 20:59 Last Admin: 07/02/18 08:03 Dose: 100 mg Gabapentin (Neurontin) 600 mg PO BID [facility] Stop: 07/28/18 20:59 Last Admin: 07/02/18 08:03 Dose: 600 mg Guaifenesin/Codeine Phosphate (Robitussin-Ac Sugar Free) 5 ml PO Q6H PRN PRN Reason: Cough Stop: 07/29/18 16:57 Last Admin: 07/01/18 08:37 Dose: 5 ml Hydroxyzine HCl (Vistaril) 50 mg PO QPM [facility] Stop: 07/28/18 20:59 Last Admin: 07/01/18 20:56 Dose: 50 mg Losartan Potassium (Cozaar) 25 mg PO DAILY [facility] Stop: 07/29/18 08:59 Last Admin: 06/30/18 08:56 Dose: 25 mg Metoprolol Tartrate (Lopressor) 5 mg IV Q4H PRN PRN Reason: HR greater than 120 bpm Stop: 07/29/18 11:38 Metoprolol Tartrate (Lopressor) 25 mg PO QID [facility] Stop: 08/01/18 16:59 Morphine Sulfate (Morphine Sulfate) 2 mg IV Q30M PRN PRN Reason: Chest Pain Stop: 07/12/18 17:26 Last Admin: 07/01/18 21:06 Dose: 2 mg Nitroglycerin (Nitrostat) 0.4 mg SL UD PRN PRN Reason: Chest Pain Stop: 07/28/18 17:26 Ondansetron HCl (Zofran) 4 mg IV Q6H PRN PRN Reason: Nausea Stop: 07/28/18 17:26 Pantoprazole Sodium (Protonix) 40 mg PO DAILY [facility] Stop: 07/29/18 08:59 Last Admin: 07/02/18 08:03 Dose: 40 mg Potassium Chloride (Klor-Con M20) 20 meq PO BID [facility] Stop: 07/28/18 20:59 Last Admin: 07/02/18 08:02 Dose: 20 meq Quetiapine Fumarate (Seroquel) 50 mg PO DAILY [facility] Stop: 07/29/18 08:59 Last Admin: 07/02/18 08:07 Dose: 50 mg Quetiapine Fumarate (Seroquel) 300 mg PO [facility] Stop: 07/28/18 20:59 Last Admin: 07/01/18 21:00 Dose: 300 mg Rivaroxaban (Xarelto) 20 mg PO DAILY@1800 [facility] Stop: 07/28/18 18:59 Last Admin: 07/01/18 16:09 Dose: 20 mg Spironolactone (Aldactone) 12.5 mg PO DAILY [facility] Stop: 07/29/18 08:59 Last Admin: 07/02/18 08:04 Dose: 12.5 mg Trazodone HCl (Desyrel) 600 mg PO HS [facility] Stop: 07/28/18 20:59 Last Admin: 07/01/18 20:57 Dose: 600 mg _ (1) COPD (chronic obstructive pulmonary disease) COPD type: unspecified COPD Chronic bronchitis type: Emphysema type: Qualified Code(s): J44.9 - Chronic obstructive pulmonary disease, unspecified (2) Schizoaffective disorder Schizoaffective disorder type: other Qualified Code(s): F25.8 - Other schizoaffective disorders
[2018-07-02] MEDS: DIGOXIN 0.125 MG TAB PO SCH (15:40)
[2018-07-02] MEDS ORDERED: MoRPHine SULFATE 4 MG/ML 1 ML CARP\\VIAL ONE (16:11)
[2018-07-02] MEDS: MoRPHine SULFATE 2 MG/ML CARP IV PRN (16:16)
[2018-07-02] MEDS ORDERED: MoRPHine SULFATE 4 MG/ML 1 ML CARP\\VIAL IV PRN (16:41)
[2018-07-02] MEDS: BUMETANIDE 1 MG TAB PO SCH (17:13)
[2018-07-02] MEDS: RIVAROXABAN 20 MG TAB PO SCH (17:14)
--- NOTE | 2018-07-02 17:48 | Cardiology Progress Note ---
Date of Service July 02, 2018 Assessment & Plan (1) Atrial fibrillation with RVR: She continues in atrial fibrillation. Overall rates are suboptimal but not quite as high as previous. We are intensifying her beta-julee therapy. She seems to be tolerating this well. Clinically she is much better. He certainly could explore the option of AV node ablation and upgrade of her device to a biventricular ICD. I think we continue to have difficulty with rate control despite escalating doses of metoprolol, this will be a good option. (2) Shortness of breath: Subjectively improved. Her lung examination is relatively benign. Switch to oral Bumex today. Will monitor her response. Continue monitoring electrolytes and renal function. (3) Pericardial effusion: Unclear etiology. Despite a trial of anti-inflammatory treatment with prednisone the effusion has not changed size or possibly even enlarged. She does not have hypo thyroidism. She is not uremic. She does not manifest symptoms consistent with a bacterial infection. Essentially, the etiology of the effusion is unclear. It is moderate in size but does not appear to cause hemodynamic compromise despite aggressive diuresis and use of beta-blockade. There was no evidence of plethora of the IVC on echocardiography. CT scan could be obtained in order to better characterize the fluid. Certainly in the setting of what appears to be hemorrhagic effusion we may need to obtain some fluid for analysis. (4) Presence of single chamber implantable cardioverter-defibrillator (ICD): She has a [employer] device. (5) Cardiomyopathy: [place] to be nonischemic based on coronary angiography performed in 2006. She continues on beta-blockade. ARB was discontinued in order to facilitate higher doses of beta blockade. May be a reinstitute her ARB at some point. Continue spironolactone. Subjective This morning the patient claims to be feeling much better. She reports being ambulatory yesterday around the [place]. She states she ambulated more yesterday than she typically would at her home. She has an element of mild dyspnea but this is much improved since admission. She has a nonproductive cough which is improving. She denies any sense of palpitation. She is not reporting dizziness or lightheadedness. She appears to be anxious to to go home. Physical Exam 2 Vital Signs (Past 24 Hours): Last Vital Signs Temp 37.0 C 07/02/18 15:04 Pulse 102 H 07/02/18 15:40 Resp 21 07/02/18 15:04 BP 107/69 07/02/18 15:04 Pulse Ox 99 07/02/18 15:04 Physical Exam: She is alert and oriented x3. Mood affect appear normal. She answered all questions appropriately. HEENT: Sclerae are anicteric. Pupils are equal and reactive to light and accommodation. Extraocular movements were intact. Neuro: Cranial nerves intact Lungs: Lungs are clear to auscultation bilaterally. There are no rales wheezes or rhonchi. She has normal respiratory effort without use of accessory muscles. There is normal pulmonary excursion. Cardiac: The rhythm was irregular. S1 and S2 were normal. There are no murmurs on examination. The PMI was not markedly displaced on palpation. Abdomen: The abdomen was soft and nontender. Extremities: Patient has bilateral radial pulses that are equal in intensity. There is no evidence cyanosis or clubbing. There was no evidence of significant peripheral edema bilaterally. Skin: There are no rashes noted on examination today. Results & Data Laboratory Results Abnormal Lab Results 07/02/18 07:11 Sodium 136 Potassium 4.4 Chloride 102 Carbon Dioxide 28 Anion Gap 6.0 BUN 16 Creatinine 0.98 Est Cr Clr Drug Dosing 85.0 Est GFR ( Amer) 74.7 Est GFR (Non-Af Amer) 64.5 BUN/Creatinine Ratio 16.1 Glucose 97 Calcium 8.5 ECG Additional Comments: Telemetry reveals continued atrial fibrillation with rapid ventricular rates _ (1) Cardiomyopathy Cardiomyopathy type: dilated Qualified Code(s): I42.0 - Dilated cardiomyopathy
[2018-07-02] MEDS: QUETIAPINE FUMARATE 300 MG TABLET PO SCH (20:26)
[2018-07-02] MEDS: TRAZODONE HCL 100 MG TAB PO SCH (20:27)
[2018-07-03 07:06] LABS: Calcium 9.4 mg/dl (8.5-10.1); Est GFR (African American) 72.1; Est GFR (Non-African American) 62.2; Potassium 3.7 mmol/L (3.5-5.1)
[2018-07-03] MEDS: ATORVASTATIN 10 MG TAB PO SCH (07:45)
[2018-07-03] MEDS: DOCUSATE SODIUM 100 MG CAP PO SCH ×2 (07:45→20:09)
[2018-07-03] MEDS: QUETIAPINE FUMARATE 25 MG TABLET PO SCH (07:45)
[2018-07-03] MEDS: PANTOprazole 40 MG TAB PO SCH (07:45)
[2018-07-03] MEDS: BUMETANIDE 1 MG TAB PO SCH ×2 (07:46→16:03)
[2018-07-03] MEDS: SPIRONOLACTONE 25 MG TAB PO SCH (07:46)
[2018-07-03] MEDS: METOPROLOL TARTRATE 25 MG TAB PO SCH ×4 (07:46→20:10)
[2018-07-03] MEDS: GABAPENTIN 600 MG TAB PO SCH ×2 (07:46→20:10)
[2018-07-03] MEDS: POTASSIUM CHLORIDE 20 MEQ TABCR PO SCH ×2 (07:47→20:09)
[2018-07-03] MEDS: GUAIFENESIN/CODEINE 100MG/10MG 5ML UDC PO PRN (12:04)
--- NOTE | 2018-07-03 14:29 | Hospitalist Progress Note ---
Date of Service July 03, 2018 Assessment & Plan (1) Acute on chronic systolic heart failure: ECHO this admission with LVEF 20-25%, enlarging pericardial effusion - diuresed about 4.6 L since admission, improved overall Initially given IV lasix bid -now on Bumex 1mg PO BID, would continue this on discharge - continue Spironolactone 12.5 mg daily; holding Losartan 25 mg daily due to low BP, likely continue to hold on discharge but hopeful to add back on at some point given severely reduced LVEF -I/Os, fluid restrict, daily weights, low Na+ diet (2) Atrial fibrillation with RVR: - Was successfully cardioverted on prior admission but now converted back - - Continues to have some uncontrolled heart rates, 90s at rest but up to 120's when awake/walking - continue increased dose of Metoprolol 25mg QID as long as blood pressure allows - continue Digoxin 0.125 mg daily -continue Xarelto 20 mg daily - Cardiology following - appreciate assistance likely a good candidate for ablation and biventricular pacing Dr. Pelayo unsure if this is necessary this admission, would like to continue to titrate upward on metoprolol (3) Presence of single chamber implantable cardioverter-defibrillator (ICD): - Consideration for biventricular ICD pending ability to get better rate control may need ablation and pacer (4) COPD (chronic obstructive pulmonary disease): - no wheezing on exam - Defer on further Abx or steroids at this time; Albuterol inhaler PRN (5) Pericardial effusion: - getting a little larger on most recent follow up echo this admission since last one on 06/06/2018 fluid is posterior, difficult to access to drain did have a viral illness in May no signs of tamponade ESR>90 here -discussed with Cardio and Rheum--> plan to check JOHNSON, RF, and start colchicine 0.6mg po bid -follow ECHO -will need outpt f/u with Rheum Dr. Mayers and Cardiology after discharge (6) Chronic respiratory failure with hypoxia: - Last admission, she qualified for 2 L at rest and 4 L with ambulation - Likely multifactorial between COPD/pulmonary HTN/CHF/obesity hypoventilation - Needs outpatient sleep study (7) Schizoaffective disorder: stable -continue Seroquel 50 mg AM and 300 mg HS; Trazodone 600 mg HS (8) Morbid obesity: BMI 38, but has significant comorbidities including CHF, HTN, etc. (9) Chest pain: now with right sided CP, ECGs without ischemia, pain constant for several days, troponi negative, not ACD -on Xarelto, not PE and is tender to the touch, worse with certain movements (10) PTSD (post-traumatic stress disorder): noted (11) History of pulmonary embolism: continue xarelto. (12) Shoulder pain, right: With tenderness over anterior shoulder -acetaminophen prn -advised to not use NSAIDs anymore (she thought NSAIDs were ok and had to avoid Tylenol while on Xarelto) xray neg for fracture and with calcific tendonitis. Xray notes possible dislocation but this is not confirmed on exam (13) GERD (gastroesophageal reflux disease): PPI (14) DVT prophylaxis: - Xarelto Disposition: continued stay Subjective Pt reports having right shoulder pain and right sided rib pain that are constant since she has been in the hospital. Says they are both worse with movement, improved with turning on left side. Pain in right ribs is worse with taking deep breaths. ECG performed and shows no ischemia, repeat troponin negative Tele with Afib, rates 90-120s, 4 beats VT Discussed case with Cardiology and Rheum today Review of Systems All systems reviewed & are unremarkable except as noted in HPI & below (denies other joint pains anywhere, no rashes, no h/o inflammation) Physical Exam 2 Vital Signs (Past 24 Hours): Last Vital Signs Temp 36.8 C 07/03/18 11:41 Pulse 95 H 07/03/18 12:08 Resp 16 07/03/18 11:41 BP 143/84 H 07/03/18 12:08 Pulse Ox 94 07/03/18 11:41 Constitutional: WD/WN, vitals as above + obese Eyes: PERRL, conjunctivae normal, anicteric sclerae ENMT: external ear and nose normal, oropharynx normal Neck: trachea midline, no thyromegaly Respiratory: normal respiratory effort Auscultation: + crackles (at bases) ; no rhonchi and no wheezes Cardiovascular: Rate/Rhythm: + tachycardic; + abnormal rhythm Heart Sounds : no murmur Extremities: no edema Gastrointestinal (Abdomen): normal bowel sounds, soft, nontender, no hepatosplenomegaly Musculoskeletal: Extremities: extremities normal to inspection (no joint effusions or tenderness except +TTP over right long head biceps tendon, +Hawkin' s on right); no cyanosis and no clubbing Skin: no rashes, warm and dry Neurologic: moves all extremities and awake; no focal motor deficits Psychiatric: A+Ox3, euthymic affect Results & Data Laboratory Results 07/03/18 07/03/18 07/03/18 Range/Units 16:31 14:35 05:53 ESR > 90 H (0-21) mm/hr Sodium (136-145) mmol/L Potassium (3.5-5.1) mmol/L Chloride (98-107) mmol/L Carbon Dioxide (21-32) mmol/L Anion Gap (3-11) BUN (7-18) mg/dl Creatinine (0.6-1.2) mg/dl Est Cr Clr Drug Dosing ml/min Est GFR ( Amer) Est GFR (Non-Af Amer) BUN/Creatinine Ratio (10-20) Glucose (70-99) mg/dl Calcium (8.5-10.1) mg/dl Troponin I < 0.015 (0-0.045) ng/ml Rheumatoid Factor Pending JOHNSON Screen Pending SS-A/Ro Antibody Pending SS-B/La Antibody Pending Sm (Walker) Antibody Pending PRESSER [place] Antibody Pending Scl-70 Scleroderma Ab Pending Anti-ds DNA (Crithidia) Pending Anti-Centromere Ab Pending Complement C3 Pending Complement C4 Pending Misc Test Perform Site Pending 07/03/18 Range/Units 05:53 ESR (0-21) mm/hr Sodium 135 L (136-145) mmol/L Potassium 3.7 D (3.5-5.1) mmol/L Chloride 95 L (98-107) mmol/L Carbon Dioxide 34 H (21-32) mmol/L Anion Gap 6.0 (3-11) BUN 14 (7-18) mg/dl Creatinine 1.01 (0.6-1.2) mg/dl Est Cr Clr Drug Dosing 82.0 ml/min Est GFR ( Amer) 72.1 Est GFR (Non-Af Amer) 62.2 BUN/Creatinine Ratio 14.0 (10-20) Glucose 99 (70-99) mg/dl Calcium 9.4 (8.5-10.1) mg/dl Troponin I (0-0.045) ng/ml Rheumatoid Factor JOHNSON Screen SS-A/Ro Antibody SS-B/La Antibody Sm (Walker) Antibody PRESSER [place] Antibody Scl-70 Scleroderma Ab Anti-ds DNA (Crithidia) Anti-Centromere Ab Complement C3 Complement C4 Misc Test Perform Site _ (1) Schizoaffective disorder Schizoaffective disorder type: other Qualified Code(s): F25.8 - Other schizoaffective disorders (2) COPD (chronic obstructive pulmonary disease) COPD type: unspecified COPD Chronic bronchitis type: Emphysema type: Qualified Code(s): J44.9 - Chronic obstructive pulmonary disease, unspecified (3) GERD (gastroesophageal reflux disease) Esophagitis presence: esophagitis presence not specified Qualified Code(s): K21.9 - Gastro-esophageal reflux disease without esophagitis (4) Chest pain Chest pain type: unspecified Ischemic chest pain type: Qualified Code(s): R07.9 - Chest pain, unspecified
--- NOTE | 2018-07-03 15:56 | XRay Report ---
XR chest 2V routine CLINICAL HISTORY: Right-sided chest pain. COMPARISON STUDY: Chest radiograph June 28, 2018. FINDINGS: There is no pneumothorax. A single lead left subclavian pacer/AICD is in place. There are s uspected small left and trace right pleural effusions. Apparent hazy left basilar opacity is unchange d. There is no evidence for overt pulmonary edema. Cardiomegaly is unchanged. There is pulmonary vasc ular congestion IMPRESSION: 1. Pulmonary vascular congestion without overt edema. Stable cardiomegaly. 2. Small left and trace right pleural effusions. 3. No change in hazy left basilar opacity which favors atelectasis although consolidation could appea r similar. Electronically signed by: Gurmeet Zamora M.D. 07/03/2018 3:55 PM
--- NOTE | 2018-07-03 15:59 | XRay Report ---
XR shoulder RT min 2V routine CLINICAL HISTORY: Right shoulder pain. COMPARISON: None FINDINGS: Alignment of the right shoulder is anatomic. Apparent inferior subluxation of the right hu meral head is likely technical. There is no acute fracture. There is no suspicious osseous lesion. A 4 mm calcific density along the superolateral aspect of the right humeral head suggests calcific tend initis. There is mild osteoarthritis of the right shoulder. IMPRESSION: 1. No acute fracture. 2. Apparent slight inferior subluxation of the right humeral head with respect to the glenoid which i s likely technical. No definite dislocation. 2. Findings suggestive of calcific tendinitis of the right rotator cuff. 3. Mild osteoarthritis of the right shoulder. Electronically signed by: Gurmeet Zamora M.D. 07/03/2018 3:57 PM
[2018-07-03] MEDS: DIGOXIN 0.125 MG TAB PO SCH (16:03)
[2018-07-03] MEDS: RIVAROXABAN 20 MG TAB PO SCH (17:04)
--- NOTE | 2018-07-03 18:31 | Cardiology Progress Note ---
Date of Service July 03, 2018 Assessment & Plan (1) Atrial fibrillation with RVR: She continues in atrial fibrillation. I think her rates are slowly improving. She has been hemodynamically stable I think we can intensify her beta-blockade further. She will continue on anticoagulation. (2) Shortness of breath: Subjectively improved. Lung examination is benign. She continues to diurese. Will need to monitor her renal function as she may be becoming slightly intravascularly depleted. (3) Pericardial effusion: Unclear etiology. She did have a high sedimentation rate suggesting the presence of an inflammatory process. Think this would be the most likely etiology for her effusion given the absence of other symptoms. She was on a brief course of steroids and 1 would think that this would address this problem , but she continues to have a high sedimentation rate. It is possible that she has another serositis given her pleuritic chest pain. We will are awaiting a rheumatologic evaluation. I think a CT scan may also be helpful in order to better characterize the nature of the pericardial effusion. (4) Presence of single chamber implantable cardioverter-defibrillator (ICD): She has a [id number] device. (5) Cardiomyopathy: [place] to be nonischemic based on coronary angiography performed in 2006. She continues on beta-blockade. ARB was discontinued in order to facilitate higher doses of beta blockade. May be a reinstitute her ARB at some point. Continue spironolactone. Subjective This afternoon she did have some recurrent right sided pain. This is plagued her on and off throughout her admission. She states that it is worse with lying on her right side or taking deep breaths. Sitting up in a chair makes her feel better. Overall her breathing has been stable. She did not report significant breathing difficulty today. No dizziness or lightheadedness. No sense of palpitation. Physical Exam 2 Vital Signs (Past 24 Hours): Last Vital Signs Temp 36.8 C 07/03/18 14:51 Pulse 101 H 07/03/18 16:03 Resp 18 07/03/18 14:51 BP 101/69 07/03/18 14:51 Pulse Ox 99 07/03/18 14:51 Physical Exam: She is alert and oriented x3. Mood affect appear normal. She answered all questions appropriately. HEENT: Sclerae are anicteric. Pupils are equal and reactive to light and accommodation. Extraocular movements were intact. Neuro: Cranial nerves intact Lungs: Lungs are clear to auscultation bilaterally. There are no rales wheezes or rhonchi. She has normal respiratory effort without use of accessory muscles. There is normal pulmonary excursion. Cardiac: The rhythm was irregular. S1 and S2 were normal. There are no murmurs on examination. The PMI was not markedly displaced on palpation. Abdomen: The abdomen was soft and nontender. Extremities: Patient has bilateral radial pulses that are equal in intensity. There is no evidence cyanosis or clubbing. There was no evidence of significant peripheral edema bilaterally. Skin: There are no rashes noted on examination today. Results & Data Laboratory Results Abnormal Lab Results 07/03/18 07/03/18 07/03/18 05:53 05:53 14:35 ESR > 90 H Sodium 135 L Potassium 3.7 D Chloride 95 L Carbon Dioxide 34 H Anion Gap 6.0 BUN 14 Creatinine 1.01 Est Cr Clr Drug Dosing 82.0 Est GFR ( Amer) 72.1 Est GFR (Non-Af Amer) 62.2 BUN/Creatinine Ratio 14.0 Glucose 99 Calcium 9.4 Troponin I < 0.015 _ (1) Cardiomyopathy Cardiomyopathy type: dilated Qualified Code(s): I42.0 - Dilated cardiomyopathy
[2018-07-03] MEDS: ACETAMINOPHEN 325 MG TAB PO PRN (18:35)
[2018-07-03] MEDS: COLCHICINE 0.6 MG TAB PO SCH (20:08)
[2018-07-03] MEDS: QUETIAPINE FUMARATE 300 MG TABLET PO SCH (20:09)
[2018-07-03] MEDS: TRAZODONE HCL 100 MG TAB PO SCH (20:10)
[2018-07-04] MEDS: PANTOprazole 40 MG TAB PO SCH (07:44)
[2018-07-04] MEDS: QUETIAPINE FUMARATE 25 MG TABLET PO SCH (07:44)
[2018-07-04] MEDS: BUMETANIDE 1 MG TAB PO SCH ×2 (07:44→16:02)
[2018-07-04] MEDS: DOCUSATE SODIUM 100 MG CAP PO SCH ×2 (07:45→19:47)
[2018-07-04] MEDS: POTASSIUM CHLORIDE 20 MEQ TABCR PO SCH ×2 (07:45→19:48)
[2018-07-04] MEDS: ATORVASTATIN 10 MG TAB PO SCH (07:45)
[2018-07-04] MEDS: GABAPENTIN 600 MG TAB PO SCH ×2 (07:45→19:49)
[2018-07-04] MEDS: SPIRONOLACTONE 25 MG TAB PO SCH (07:45)
[2018-07-04] MEDS: COLCHICINE 0.6 MG TAB PO SCH ×2 (07:45→19:46)
[2018-07-04] MEDS: GUAIFENESIN/CODEINE 100MG/10MG 5ML UDC PO PRN (07:49)
[2018-07-04] MEDS: METOPROLOL TARTRATE 25 MG TAB PO SCH ×4 (08:33→19:49)
[2018-07-04 09:09] LABS: Calcium 8.9 mg/dl (8.5-10.1); Creatinine Clr Calc Pharmacy 63.9 ml/min; Est GFR (African American) 53.6; Est GFR (Non-African American) 46.3; Magnesium 2.3 mg/dl (1.8-2.4)
[2018-07-04] MEDS ORDERED: POTASSIUM CHLORIDE 20 MEQ TABCR PO STA (10:20)
[2018-07-04] MEDS ORDERED: KETOROLAC 30 MG/ML VIAL IV STA ×2 (12:17→13:25)
[2018-07-04] MEDS ORDERED: Nursing to Pharmacy Communication ONE (13:01)
[2018-07-04] MEDS: DIGOXIN 0.125 MG TAB PO SCH (16:02)
--- NOTE | 2018-07-04 18:15 | Cardiology Progress Note ---
Date of Service July 04, 2018 Assessment & Plan (1) Atrial fibrillation with RVR: She continues in atrial fibrillation. I think her rates are much improved since admission. She appears to be tolerating the metoprolol well. She has relative hypotension but this is actually fairly normal for her. As we approach discharge we can convert her metoprolol tartrate to succinate. Continue on anticoagulation. (2) Shortness of breath: Subjectively improved. Lung examination is benign. She continues to diurese. Will need to monitor her renal function as she may be becoming slightly intravascularly depleted. (3) Pericardial effusion: Unclear etiology. Possibly inflammatory. WIll continue colchicine and NSAID. PLan CT of the chest for evaluation of effusion and chest pain. (4) Presence of single chamber implantable cardioverter-defibrillator (ICD): She has a [email or web address] device. (5) Cardiomyopathy: [place] to be nonischemic based on coronary angiography performed in 2006. She continues on beta-blockade. ARB was discontinued in order to facilitate higher doses of beta blockade. May be a reinstitute her ARB at some point. Continue spironolactone. Subjective This afternoon the patient claims to be feeling better. The severe right-sided discomfort she had yesterday is much improved. She was laying on her right side and appeared relatively comfortable. She did ambulate around her room with some mild dyspnea. She is not reporting any sense of palpitations. no dizziness. Physical Exam 2 Vital Signs (Past 24 Hours): Last Vital Signs Temp 36.8 C 07/04/18 15:40 Pulse 83 07/04/18 15:40 Resp 18 07/04/18 15:40 BP 93/64 L 07/04/18 15:40 Pulse Ox 98 07/04/18 15:47 Physical Exam: She is alert and oriented x3. Mood affect appear normal. She answered all questions appropriately. HEENT: Sclerae are anicteric. Pupils are equal and reactive to light and accommodation. Extraocular movements were intact. Neuro: Cranial nerves intact Neck: Examination of the submandibular region did not reveal any significant lymphadenopathy. Carotids are palpable bilaterally and free of bruits on auscultation. There was no evidence of jugular venous distention. The thyroid was not enlarged. Lungs: Lungs are clear to auscultation bilaterally. There are no rales wheezes or rhonchi. She has normal respiratory effort without use of accessory muscles. There is normal pulmonary excursion. Cardiac: The rhythm was regular. S1 and S2 were normal. There are no murmurs on examination. The PMI was not markedly displaced on palpation. Abdomen: The abdomen was soft and nontender. Extremities: Patient has bilateral radial pulses that are equal in intensity. There is no evidence cyanosis or clubbing. There was no evidence of significant peripheral edema bilaterally. Skin: There are no rashes noted on examination today. Results & Data Laboratory Results Abnormal Lab Results 07/04/18 08:11 Sodium 133 L Potassium 3.0 L D Chloride 90 L Carbon Dioxide 32 Anion Gap 11.0 BUN 16 Creatinine 1.29 H Est Cr Clr Drug Dosing 63.9 Est GFR ( Amer) 53.6 Est GFR (Non-Af Amer) 46.3 BUN/Creatinine Ratio 12.0 Glucose 183 H Calcium 8.9 Magnesium 2.3 _ (1) Cardiomyopathy Cardiomyopathy type: dilated Qualified Code(s): I42.0 - Dilated cardiomyopathy
[2018-07-04] MEDS: RIVAROXABAN 20 MG TAB PO SCH (18:44)
[2018-07-04] MEDS: TRAZODONE HCL 100 MG TAB PO SCH (19:47)
[2018-07-04] MEDS: QUETIAPINE FUMARATE 300 MG TABLET PO SCH (19:50)
[2018-07-04] MEDS: ACETAMINOPHEN 325 MG TAB PO PRN (19:52)
[2018-07-04] MEDS ORDERED: IOVERSOL 100ml IV PRN (20:30)
--- NOTE | 2018-07-04 20:32 | Hospitalist Progress Note ---
Date of Service July 04, 2018 Assessment & Plan (1) Acute on chronic systolic heart failure: Exam appears relatively compensated. Appreciate cardiology consultation. Cont BB, ARB, bumex, aldactone. Decompensation likely from recently uncontrolled a. fib. Prednisone during prior hospital stay may have caused fluid retention as well. Cont daily weights, etc. (2) Chronic respiratory failure with hypoxia: Patient placed on [place] O2 after last hospital admission. Reassess need for ambulatory oxygen at conclusion of this stay. (3) Chest pain: pleuritic, likely due to pericardial effusion - see below. (4) Pericardial effusion: moderate in size, and getting larger in comparision to prior echo. Sed rate >90. Concerning for inflammatory process/autoimmune process - RA, SLE, sarcoid etc. Awaiting autoimmune panel. Dr. Hein had spoken with rheum who advised colchicine 0.6 BID. She cont with mild pain - thus, add low-dose motrin 400mg BID. Care d/w Dr. Pelayo from cardiology today. Repeat sed rate in a few days. (5) Shoulder pain, right: tendonitis - motrin should help. could always consider subacromial steroid injection. (6) Morbid obesity: BMI 37.5 with various comorbidities (7) Atrial fibrillation with RVR: improved. cont digoxin and beta julee. cont xarelto for anticoagulation. (8) Schizoaffective disorder: stable on home meds. (9) Hypokalemia: replace with additional K today; repeat BMP am. (10) COPD (chronic obstructive pulmonary disease): stable, controlled, no exacerbation. (11) DVT prophylaxis: xarelto Subjective Patient continues to have intermittent chest discomfort, pleuritic in nature, with radiation into the back. The pain is over the right chest near the sternum. Denies any significant dyspnea. Tele stable with rate-controlled a. fib. Patient with numerous questions about the pericardial effusion. She states that years ago she saw a integration architect and there was some discussion about whether she has rheumatoid arthritis. There is a family history of SLE. Denies recent hair loss, joint swelling, weight loss. Constitutional: no fever Respiratory: no cough Cardiovascular: as per Subjective / HPI, + chest pain and + chest pain at rest; no orthopnea and no paroxysmal nocturnal dyspnea Gastrointestinal: no abdominal pain, no nausea and no vomiting Physical Exam 2 Vital Signs (Past 24 Hours): Last Vital Signs Temp 36.9 C 01/29/19 19:36 Pulse 88 07/04/18 19:36 Resp 18 07/04/18 19:36 BP 106/73 07/04/18 19:36 Pulse Ox 97 07/04/18 19:36 Constitutional: well developed, well nourished and + obese; no acute distress and not ill appearing ENMT: external ear and nose normal, oropharynx normal Respiratory: normal respiratory effort, lungs clear to auscultation Cardiovascular: Rate/Rhythm: regular rate; + abnormal rhythm (irregular) Heart Sounds: normal S1 and normal S2; no gallop, no murmur and no cardiac rub Vessels: posterior tibial pulses present and dorsalis pedis pulses present; no JVD Extremities: no edema Gastrointestinal (Abdomen): normal bowel sounds, soft, nontender, no hepatosplenomegaly Musculoskeletal: Extremities: no joint enlargement (no joint synovitis ) Skin: no rashes, warm and dry Psychiatric: A+Ox3, euthymic affect Results & Data Laboratory Results Laboratory Results - last 24 hr 07/04/18 08:11 Sodium 133 L Potassium 3.0 L D Chloride 90 L Carbon Dioxide 32 Anion Gap 11.0 BUN 16 Creatinine 1.29 H Est Cr Clr Drug Dosing 63.9 Est GFR ( Amer) 53.6 Est GFR (Non-Af Amer) 46.3 BUN/Creatinine Ratio 12.0 Glucose 183 H Calcium 8.9 Magnesium 2.3 _ (1) Chest pain Chest pain type: unspecified Ischemic chest pain type: Qualified Code(s): R07.9 - Chest pain, unspecified (2) Shoulder pain, right Chronicity: unspecified Qualified Code(s): M25.511 - Pain in right shoulder (3) Schizoaffective disorder Schizoaffective disorder type: other Qualified Code(s): F25.8 - Other schizoaffective disorders (4) COPD (chronic obstructive pulmonary disease) COPD type: unspecified COPD Chronic bronchitis type: Emphysema type: Qualified Code(s): J44.9 - Chronic obstructive pulmonary disease, unspecified
[2018-07-04] MEDS ORDERED: IBUPROFEN 200 MG TAB PO SCH (21:00)
--- NOTE | 2018-07-04 21:00 | CT Scan Report ---
CHEST CT WITH CONTRAST CT DOSE: 800.65 mGy.cm HISTORY: Acute right-sided chest pain with pericardial effusion evaluate pericardial effusion , righ t chest pain TECHNIQUE: Multiaxial CT images of the chest were performed following the intravenous administration of contrast. A dose lowering technique was utilized adhering to the principles of ALARA. COMPARISON: Chest radiographs 07/03/2018, chest CT 12/11/2006. FINDINGS: Marked multichamber cardiac enlargement. Single lead left subclavian pacer/AICD is noted with lead ov erlying the right ventricle. Moderate sized pericardial effusion measures up to 2.2 cm posteriorly. P ericardial fluid appears simple. No associated pericardial enhancement. Thoracic aorta is normal in c ourse and caliber without aneurysm or dissection. Bovine aortic arch. Patency of the imaged great ves sels. The opacified pulmonary arterial tree is unremarkable and demonstrates no focal filling defects to suggest pulmonary thromboembolic disease. Trace left pleural effusion. No pneumothorax. Bibasilar subsegmental linear consolidative and groundg lass opacities are suggestive of atelectasis. No overt pulmonary edema. Subpleural reticulation about the anterior segment right upper lobe suggest scarring. Soft tissue nodule adjacent stranding measur ing 8 x 3 mm abuts a segmental pulmonary artery about the right upper lobe suggestive of a lymph node on image 101 series 4. Mild bilateral bronchial wall thickening. Ill-defined groundglass opacities o f the perihilar right upper lobe. 2 mm solid nodule of the right upper lobe also noted. Liver appears enlarged with suggested hepatic steatosis. No acute process of the imaged upper abdomen . Soft tissues appear unremarkable. Bones appear to be intact. IMPRESSION: 1. Marked multichamber cardiac enlargement with moderate sized simple pericardial effusion. 2. Trace left pleural effusion with linear consolidative bibasilar opacities suggestive of atelectasi s. 3. Subsegmental ill-defined groundglass opacities of the perihilar right upper lobe suggests scarring /atelectasis versus mild pneumonitis. 4. Indeterminate 8 x 3 mm nodular density of the right upper lobe suggests a lymph node or pulmonary nodule. 6 month follow-up chest CT recommended to further evaluate. Please refer to below summary of Fleischner criteria recommendations for follow-up of incidental CT n brittanie Dooley, Guidelines for management of small pulmonary nodules detected on CT scans: A sta tement from the Fleischner Society, Radiology 237: [phone].) SOLID NODULES Multiple nodules size: <6 mm * Low risk patients: no routine follow-up * high risk patients: optional CT at 12 months Multiple nodules size: 6-8 mm * Low risk patients: follow-up at 3-6 months, then consider further follow-up at 18-24 months * high risk patients: follow-up at 3-6 months, then at 18-24 months if no change Multiple nodules size: >8 mm * Low risk patients: follow-up at 3-6 months, then consider further follow-up at 18-24 months * high risk patients: follow-up at 3-6 months, then at 18-24 months if no change Note: newly detected indeterminate nodule in persons 35 years of age or older. * Low risk patients: minimal or absent history of smoking and/or other known risk factors * high risk patients: history of smoking or of other known risk factors (e.g. first degree relative with lung cancer, or exposure to asbestos, radon, uranium) * if a nodule up to 8 mm is partly solid or is ground glass further follow-up is required after 24 m onths to exclude possible slow growing adenocarcinoma (ANGEL) The above report was generated using voice recognition software. It may contain grammatical, syntax o r spelling errors. Electronically signed by: Bryan Ortega M.D. 07/04/2018 8:58 PM
[2018-07-05 07:14] LABS: Calcium 9.2 mg/dl (8.5-10.1); Creatinine Clr Calc Pharmacy 58.4 ml/min; Est GFR (African American) 48.1; Est GFR (Non-African American) 41.5; Potassium 3.7 mmol/L (3.5-5.1)
[2018-07-05] MEDS: PANTOprazole 40 MG TAB PO SCH (08:24)
[2018-07-05] MEDS: QUETIAPINE FUMARATE 25 MG TABLET PO SCH (08:24)
[2018-07-05] MEDS: DOCUSATE SODIUM 100 MG CAP PO SCH ×2 (08:25→20:45)
[2018-07-05] MEDS: ATORVASTATIN 10 MG TAB PO SCH (08:25)
[2018-07-05] MEDS: POTASSIUM CHLORIDE 20 MEQ TABCR PO SCH ×2 (08:25→20:44)
[2018-07-05] MEDS: SPIRONOLACTONE 25 MG TAB PO SCH (08:25)
[2018-07-05] MEDS: GABAPENTIN 600 MG TAB PO SCH ×2 (08:25→20:45)
[2018-07-05] MEDS: COLCHICINE 0.6 MG TAB PO SCH ×2 (08:26→20:45)
[2018-07-05] MEDS ORDERED: BUMETANIDE 1 MG TAB PO SCH (09:00)
[2018-07-05] MEDS: DIGOXIN 0.125 MG TAB PO SCH (17:12)
[2018-07-05] MEDS: RIVAROXABAN 20 MG TAB PO SCH (17:12)
--- NOTE | 2018-07-05 17:31 | Cardiology Progress Note ---
Date of Service July 05, 2018 Assessment & Plan (1) Atrial fibrillation with RVR: She continues in atrial fibrillation. Her rates seem to be well controlled when she gets all of her doses of metoprolol. Unfortunately, she does have some hypotension primarily in the morning. She often has her metoprolol held at that time and rates seem to be slightly higher throughout the remainder of the day. I think when it is time for discharge we can convert her total dose to metoprolol succinate which she would likely tolerate better on an outpatient basis. Continue on Xarelto. (2) Shortness of breath: Subjectively improved. Lung examination is benign. She was diuresed very aggressively over the past few days. Currently she seems slightly hypovolemic in her renal function is compromised. We will need to adjust her diuretic regimen at the time of discharge. Perhaps a half a milligram of Bumex daily will be adequate. (3) Pericardial effusion: Unclear etiology. Possibly inflammatory. Her symptoms are much improved with institution of colchicine. Nonsteroidal should be avoided given her renal dysfunction and anticoagulant use. Looking at her CT scan the fusion is very well localized to the posterior aspect of the pericardium. It is not circumferential. Do not think it is readily amenable to percutaneous drainage. I do not think is causing any hemodynamic compromise. Hopefully with treatment of suspected pericarditis will see this resolved. (4) Presence of single chamber implantable cardioverter-defibrillator (ICD): She has a [employer] device. (5) Cardiomyopathy: [place] to be nonischemic based on coronary angiography performed in 2006. She continues on beta-blockade. ARB was discontinued in order to facilitate higher doses of beta blockade. May be a reinstitute her ARB at some point. Continue spironolactone. Subjective This afternoon the patient claims to be feeling well. She is ambulatory around her room with minimal dyspnea. She did not report any dizziness. Her chest and thoracic pain appears to have resolved. She is able lie on her right side without discomfort. No sense of palpitation. Physical Exam 2 Vital Signs (Past 24 Hours): Last Vital Signs Temp 37.1 C 07/05/18 15:48 Pulse 85 07/05/18 17:12 Resp 20 07/05/18 15:48 BP 94/65 L 07/05/18 15:48 Pulse Ox 90 07/05/18 15:48 Physical Exam: She is alert and oriented x3. Mood affect appear normal. She answered all questions appropriately. HEENT: Sclerae are anicteric. Pupils are equal and reactive to light and accommodation. Extraocular movements were intact. Neuro: Cranial nerves intact Lungs: Clear. Good air movement. No expiratory wheezing. Cardiac: The rhythm was irregular. S1 and S2 were normal. There are no murmurs on examination. The PMI was not markedly displaced on palpation. Abdomen: The abdomen was soft and nontender. Extremities: Patient has bilateral radial pulses that are equal in intensity. There is no evidence cyanosis or clubbing. There was no evidence of significant peripheral edema bilaterally. Skin: There are no rashes noted on examination today. Results & Data Laboratory Results Abnormal Lab Results 07/05/18 06:19 Sodium 134 L Potassium 3.7 D Chloride 92 L Carbon Dioxide 36 H Anion Gap 7.0 BUN 23 H Creatinine 1.41 H Est Cr Clr Drug Dosing 58.4 Est GFR ( Amer) 48.1 Est GFR (Non-Af Amer) 41.5 BUN/Creatinine Ratio 16.0 Glucose [address] 9[address] scan revealed evidence of a moderate-size pericardial effusion. Some pulmonary nodules but no other significant findings. _ (1) Cardiomyopathy Cardiomyopathy type: dilated Qualified Code(s): I42.0 - Dilated cardiomyopathy
--- NOTE | 2018-07-05 20:25 | Hospitalist Progress Note ---
Date of Service July 05, 2018 Assessment & Plan (1) Acute on chronic systolic heart failure: Compensated or even slightly dry. HOLD diuretics today. Appreciate cardiology consultation. Holding other cardiac meds due to low BP. Decompensation was likely from recently uncontrolled a. fib. Prednisone during prior hospital stay may have caused fluid retention as well. Cont daily weights, etc. BMP in am. Change coreg to toprol xl - give later tonight. (2) Acute kidney injury: Likely due to over-diuresis. holding all BP meds due to hypotension. repeat BMP in am. No further diuretics until creatinine improving. (3) Chronic respiratory failure with hypoxia: Patient placed on [place] O2 after last hospital admission. Reassess need for ambulatory oxygen at conclusion of this stay. At least as of today she does not need the O2 at rest; check o2 sats w/ walking tomorrow. (4) Chest pain: pleuritic, likely due to pericardial effusion - see below. resolved. (5) Pericardial effusion: moderate in size, and getting larger in comparision to prior echo. Sed rate >90. Concerning for inflammatory process/autoimmune process - RA, SLE, sarcoid etc. Awaiting autoimmune panel. Dr. Hein had spoken with rheum who advised colchicine 0.6 BID. Pain finally resolved. recheck sed rate tomorrow. cont colchcine BID (6) Shoulder pain, right: tendonitis no complaints of such today (7) Morbid obesity: BMI 37.5 with various comorbidities (8) Atrial fibrillation with RVR: cont digoxin and beta jluee. change the coreg, however, to toprol xl. cont xarelto for anticoagulation. (9) Schizoaffective disorder: stable on home meds. (10) Hypokalemia: resolved bmp in am (11) COPD (chronic obstructive pulmonary disease): stable, controlled, no exacerbation. (12) DVT prophylaxis: xarelto hopefully home tomorrow Subjective patient reports feeling better pleuritic chest pain is resolved back pain is resolved ambulating tele with uncontrolled a. fib rates at times she denies [place] o2 sats at rest are 90s in room air Constitutional: no fever and no chills Respiratory: no cough Cardiovascular: no chest pain, no orthopnea and no paroxysmal nocturnal dyspnea Gastrointestinal: no abdominal pain Physical Exam 2 Vital Signs (Past 24 Hours): Last Vital Signs Temp 37.1 C 07/05/18 19:22 Pulse 109 H 07/05/18 19:22 Resp 22 07/05/18 19:22 BP 112/88 07/05/18 19:22 Pulse Ox 98 07/05/18 19:22 Constitutional: well developed, well nourished and + obese; no acute distress and not ill appearing Eyes: PERRL ENMT: external ear and nose normal, oropharynx normal Respiratory: normal respiratory effort, lungs clear to auscultation Auscultation: no crackles, no rhonchi and no wheezes Cardiovascular: Rate/Rhythm: regular rate; + abnormal rhythm (irregular) Heart Sounds: normal S1 and normal S2; no gallop, no murmur and no cardiac rub Vessels: posterior tibial pulses present and dorsalis pedis pulses present; no JVD Extremities: no edema Gastrointestinal (Abdomen): normal bowel sounds, soft, nontender, no hepatosplenomegaly Musculoskeletal: no cyanosis or clubbing, extremities motor strength 5/5 Extremities: no joint enlargement (no joint synovitis ) Skin: no rashes, warm and dry Neurologic: moves all extremities Psychiatric: A+Ox3, euthymic affect Mood: no depressed mood Results & Data Laboratory Results Laboratory Results - last 24 hr 07/05/18 06:19 Sodium 134 L Potassium 3.7 D Chloride 92 L Carbon Dioxide 36 H Anion Gap 7.0 BUN 23 H Creatinine 1.41 H Est Cr Clr Drug Dosing 58.4 Est GFR ( Amer) 48.1 Est GFR (Non-Af Amer) 41.5 BUN/Creatinine Ratio 16.0 Glucose 97 Calcium 9.2 _ (1) Schizoaffective disorder Schizoaffective disorder type: other Qualified Code(s): F25.8 - Other schizoaffective disorders (2) Shoulder pain, right Chronicity: unspecified Qualified Code(s): M25.511 - Pain in right shoulder (3) COPD (chronic obstructive pulmonary disease) COPD type: unspecified COPD Chronic bronchitis type: Emphysema type: Qualified Code(s): J44.9 - Chronic obstructive pulmonary disease, unspecified (4) Chest pain Chest pain type: unspecified Ischemic chest pain type: Qualified Code(s): R07.9 - Chest pain, unspecified
[2018-07-05] MEDS: TRAZODONE HCL 100 MG TAB PO SCH (20:44)
[2018-07-05] MEDS: QUETIAPINE FUMARATE 300 MG TABLET PO SCH (20:45)
[2018-07-05] MEDS ORDERED: METOPROLOL SUCC 25MG EXT REL TAB PO SCH (21:00)
[2018-07-06 06:00] LABS: Hematocrit (blood only) 37.6 % (37-47); Hemoglobin 12.2 g/dL (12.0-16.0); Mean Corpuscular Hgb Conc 32.4 g/dL (32-36); Mean Corpuscular Volume 88.1 fL (80-100); Mean Platelet Volume 9.5 fL (7.4-10.4); Platelet Count 309 K/uL (130-400); RDW Coefficient of Variation 14.9 % (11.5-14.5); RDW Standard Deviation 47.4 fL (36.4-46.3); Red Blood Count 4.27 M/uL (4.2-5.4); White Blood Count 8.29 K/uL (4.8-10.8)
[2018-07-06 06:10] LABS: BUN Creatinine Ratio 16.4 (10-20); C Reactive Protein 1.26 mg/dl (0-0.29); Calcium 9.8 mg/dl (8.5-10.1); Creatinine Clr Calc Pharmacy 78.4 ml/min; Est GFR (African American) 68.8; Est GFR (Non-African American) 59.3; Potassium 4.2 mmol/L (3.5-5.1)
[2018-07-06] MEDS: ATORVASTATIN 10 MG TAB PO SCH (08:32)
[2018-07-06] MEDS: QUETIAPINE FUMARATE 25 MG TABLET PO SCH (08:32)
[2018-07-06] MEDS: COLCHICINE 0.6 MG TAB PO SCH (08:32)
[2018-07-06] MEDS: DOCUSATE SODIUM 100 MG CAP PO SCH (08:32)
[2018-07-06] MEDS: PANTOprazole 40 MG TAB PO SCH (08:32)
[2018-07-06] MEDS: GABAPENTIN 600 MG TAB PO SCH (08:32)
[2018-07-06] MEDS: POTASSIUM CHLORIDE 20 MEQ TABCR PO SCH (08:33)
--- NOTE | 2018-07-06 11:13 | Discharge Summary ---
Date of Service date of admission - June 28, 2018 date of discharge - July 06, 2018 Admission HPI Per Admitting Provider 57yo female with history of severe chronic systolic CHF w/ EF of 20%, chronic hypoxic respiratory failure, a. fib s/p cardioversion during a previous admission earlier this month, and hyperlipidemia who presents with worsening dyspnea starting this past Tuesday. This has been associated with worsening LE edema, orthopnea, PND, and weight gain of about 10 pounds. She now has severe MONSALVE with walking less than 10 feet. It got to the point today that she could not perform activities of daily living and therefore came to the hospital for evaluation. On Tuesday pm/Tuesday am she had chest pain associated with palpitations and heart racing. She had left arm pain as well. She took 2 aspirin and the chest pain/arm pain went away. She has had no other episodes like this over the last 1-2 weeks. Interestingly, despite her report of a 10-pound weight gain, her weight today is actually lower than her documented weight from the last admission. Lastly, records from previous stay suggest she failed her 2-step O2 test and 2 L NC was recommended at rest and 4 L with activity. She has been compliant with O2 at home. Principal Diagnosis pericardial effusion with likely pericarditis, possibly autoimmune in nature Discharge Exam Constitutional well developed, well nourished and + obese; no acute distress and not ill appearing Eyes + anicteric sclerae ENMT external ear and nose normal, oropharynx normal Neck trachea midline, no thyromegaly Respiratory normal respiratory effort, lungs clear to auscultation Auscultation: no crackles, no rhonchi and no wheezes Cardiovascular Rate/Rhythm: regular rate; + abnormal rhythm (irregular) Heart Sounds: normal S1 and normal S2; no gallop, no murmur and no cardiac rub Vessels: posterior tibial pulses present and dorsalis pedis pulses present; no JVD Extremities: no edema Gastrointestinal (Abdomen) normal bowel sounds, soft, nontender, no hepatosplenomegaly Musculoskeletal no cyanosis or clubbing, extremities motor strength 5/5 Extremities: no joint enlargement (no joint synovitis ) Skin no rashes, warm and dry Neurologic moves all extremities Psychiatric A+Ox3, euthymic affect Discharge Data Allergies Allergy/AdvReac Type Severity Reaction Status Date / Time fentanyl Allergy Mild RASH,ITCHIN Verified 06/06/18 10:26 G Consultations cardiology - Guilherme Pelayo MD Ordered Studies 1. CT chest - IMPRESSION: 1. Marked multichamber cardiac enlargement with moderate sized simple pericardial effusion. 2. Trace left pleural effusion with linear consolidative bibasilar opacities suggestive of atelectasis. 3. Subsegmental ill-defined groundglass opacities of the perihilar right upper lobe suggests scarring/atelectasis versus mild pneumonitis. 4. Indeterminate 8 x 3 mm nodular density of the right upper lobe suggests a lymph node or pulmonary nodule. 6 month follow-up chest CT recommended to further evaluate. 2. limited 2d echo - * EF 25-30% * severe MR * moderate sized pericardial effusion, mostly posterior in location, slightly larger than previous echo earlier this month Hospital Course (1) Pericardial effusion: The patient's pericardial effusion was seen during her prior admission and at that time it was moderate in size. A repeat limited echo this admission showed it was slightly larger. The effusion was primarily posterior in location. It was believed that the patient's chest pain was likely due to pericarditis from this effusion. Sed rate was >90. Overall her clinical picture was most suggestive of an inflammatory process/ autoimmune process such RA, SLE, sarcoid, etc. Autoimmune panel was dispatched and was pending at time of discharge. A phone consult was obtained with rheumatology who adivsed colchicine 0.6 BID. Within 36 hours her pericardial/chest pain finally resolved. Repeat sed Pain finally resolved. Repeat sed rate was 79. The patient was discharged to home with colchicine twice daily and she will need close cardiology AND rheumatology follow-up. (2) Pericarditis: Likely the cause of the patient's presenting chest pain. See discussion above in "pericardial effusion." (3) Chest pain: Pain was pleuritic and worse with laying supine consistent with pericarditis. Troponins were negative. Pain resolved before discharge. (4) Acute on chronic systolic heart failure: The patient had mild acute/chronic CHF at time of presentation. She was diuresed during her stay and at time of admission appeared euvolemic. Decompensation was likely from recently uncontrolled a. fib. Prednisone during her prior hospital stay may have caused fluid retention as well. Coreg was changed to toprol xl for a. fib rate control and her CHF. Discharge weight was 110.4kg. She will remain on bumex 1mg daily for her diuretic. CHF instructions were given at discharge. Due to low BP she is not an NIKO or ARB candidate at this time but perhaps could be added later on if BP allows. (5) Acute kidney injury: Likely due to over-diuresis. Peak Cr was 1.4, improving to 1 prior to discharge. (6) Chronic respiratory failure with hypoxia: Patient placed on NC O2 after last hospital admission. The need for ambulatory O2 was reassessed during this stay and it was found that she ONLY needed NC O2 for sleep (NC O2 would not be needed for ambulation, at times of rest, etc). Formal sleep study to rule out TOMI was advised. (7) Shoulder pain, right: Likely tendonitis. This improved while hospitalized. (8) Morbid obesity: BMI 37 with various comorbidities (9) Atrial fibrillation with RVR: She will remain on digoxin and beta julee. Coreg, however, was changed to toprol xl. She will also continue xarelto for anticoagulation. (10) Schizoaffective disorder: This condition was stable on her home meds. (11) Hypokalemia: Resolved with supplementation. (12) COPD (chronic obstructive pulmonary disease): Stable, controlled, no exacerbation. Total Time Total Time Spent Total Time Spent (In Minutes): 40 Total Time Includes: Examination of the Patient, Discharge Planning, Medication Reconciliation and Communication With Other Providers Discharge Plan Discharge Items Patient Disposition: Home - Home Health Services Reason For Visit: congestive heart failure, rapid a. fib, chest pain Discharge Diagnosis: congestive heart failure exacerbation - improved. Rapid a. fib - improved. Chest pain due to pericardial effusion - pain improved. Discharge Goals: Decrease discomfort, Diagnostic testing, Improve disease control, Learn about illness and Therapeutic intervention Activity: Resume your previous activity Activity Comment: as tolerated Non-emergency contact: Primary Care Provider and Patrol Inspector Call non-emergency contact if: you have any medication questions, your symptoms worsen, your pain is not controlled, your pain is worsening and your temperature is above 100.5 Follow-up/Referrals: Antonio Oliver MD [Primary Care Provider] - 07/13/18 11:40 am (Please, follow up with Dr. Roper on July 13 at 11 :40 am. *If you need to change this appointment, call the office at [phone].) Catalina Almanza PA-C [Physician] - 07/10/18 9:30 am (Please, follow up at [facility]iology Office ([facility]F Clinic) with Re Almanza PA-C on TuesdayJuly 10 at 9:30 am. *This office is located in [address] of [facility] - big building next to this hospital. If you need to change this appointment, call the office at [phone].) Giuseppe Bell MD [Physician] - 10/19/18 8:20 am (Please, follow up at [facility] Office with Dr. Giuseppe Mayers on october 19 at 8:20 am. *This office is located at [address], [address], in [place]. If you need to change this appointment, call the office at [phone]. THEY ARE GOING TO CONTACT YOU, IF AN EARLIER APPOINTMENT BECOMES AVAILABLE) Diet: Heart Healthy Fluids: 1800ml (7 cups) Addtl Provider Instructions: From Torin Hardwick - Hospitalist - You were treated for multiple issues including congestive heart failure, atrial fibrillation, and chest pain. The chest pain was thought to be due to inflammation in the sac of your heart ( the sac is known as the pericardium). The sac has fluid in it which was causing your chest pain. The exact cause of the fluid in the pericardium is uncertain but there is concern it is being caused by a rheumatological condition. There are various types of rheumatological conditions including rheumatoid arthritis, lupus, sarcoid, etc. We do not know yet if you have one of these conditions. At this time we recommend - 1. colchicine 0.6mg twice daily every day. This is to treat the pain, inflammation, and fluid in the sac of the heart. 2. STOP your lasix (furosemide). 3. STOP your carvedilol (coreg). 4. STOP your losartan. 5. STOP your spironolactone. 6. START bumetanide 1mg daily. This is your fluid/diuretic pill. Start this tomorrow morning, 07/07/2018. New prescription provided. 7. START metoprolol succinate (toprol xl) 50mg once daily. Start this TODAY upon return home. 8. Continue your oxygen when sleeping (night-time and with day-time naps). You do not need to use it outside of your home. You do not need to use it while resting at home, watching TV, etc. Follow-up - * see Dr. Giuseppe Mayers - rheumatology with adriano at [facility] - as scheduled * see [facility]iology wtihin 1 week Congestive heart failure instructions - Call 911 and go to the Emergency Room if: * You have tightness or pain in your chest that does not go away with rest or Nitroglycerin * You are very short of breath even with rest Call your doctor if any of the following symptoms or problems start or get worse: * Shortness of breath or difficulty breathing * Wake up at night short of breath * Chest pain * Cough * Swelling of your hands, fee, or legs * More fatigued or tired with your normal activity * Palpitations - sudden fast heart beats WEIGHT * Weigh yourself every morning after using the bathroom. * Use the same scale. * Wear the same amount of clothing. * Write your weight down on your chart. * Call your doctor if you gain more than 2-3 pounds in 1-2 days. This is usually a sign of fluid retention from your heart failure. Do not wait to call - please call right away. MEDICATIONS * Use this discharge instruction sheet for instructions. * Take your medications at the time your doctor ordered. * Do not skip a dose of your medicines. * If you miss a dose of medicine, take as soon as possible, but DO NOT DOUBLE A DOSE. * Read your medicine information when you get home. * Know all of the side effects of your medicine. * Call your doctor's office if you have any side effects. * Be sure all of your doctors know what medicine and herbs you take (including cold, flu, and herbal medicine). * Pain Medicine: If you do not get relief from your pain, please call your doctor for help. Take the following with you to your follow-up doctor appointments: * Weight Chart * Medication List * List of questions Do not drink excessive alcohol, beer or wine. Return to [facility] if - * you have fevers over 100.5 degrees * you have worsening chest pain or shortness of breath * you have excessive weight gain * any other concerns Prescriptions: New bumetanide 1 mg Tablet 1 mg PO QAM Qty: 30 RF: 2 colchicine [Colcrys] 0.6 mg Tablet 0.6 mg PO BID Qty: 60 RF: 2 metoprolol succinate [Toprol XL] 50 mg tablet extended release 24 hr 50 mg PO DAILY Qty: 30 RF: 2 Continue potassium chloride 20 mEq tablet,ER particles/crystals 20 meq PO DAILY RF: 0 metformin 500 mg Tablet 500 mg PO BID RF: 0 gabapentin 600 mg Tablet 600 mg PO BID RF: 0 quetiapine [Seroquel] 300 mg Tablet 300 mg PO HS RF: 0 atorvastatin 10 mg Tablet 10 mg PO DAILY RF: 0 hydroxyzine pamoate [Vistaril] 50 mg Capsule 50 mg PO QPM RF: 0 diphenhydramine HCl [Benadryl] 25 mg Capsule 25 mg PO QAM RF: 0 trazodone 300 mg Tablet 600 mg PO HS RF: 0 docusate sodium [Colace] 100 mg Capsule 100 mg PO BID RF: 0 omeprazole 20 mg Capsule,Delayed Release(Dr/Ec) 20 mg PO DAILY RF: 0 digoxin 125 mcg Tablet 0.125 mg PO DAILY RF: 0 quetiapine [Seroquel] 50 mg Tablet 50 mg PO DAILY RF: 0 rivaroxaban [Xarelto] 20 mg Tablet 20 mg PO DAILY RF: 0 albuterol sulfate 90 mcg/actuation HFA aerosol inhaler 2 inha INH QID PRN (Reason: shortness of breath or wheezing) Qty: 6.7 RF: 1 Discontinued furosemide [Lasix] 40 mg Tablet 40 mg PO BID RF: 0 spironolactone 25 mg Tablet 12.5 mg PO DAILY RF: 0 carvedilol 3.125 mg Tablet 3.125 mg PO BID RF: 0 losartan 25 mg Tablet 25 mg PO DAILY RF: 0 prednisone 10 mg tablet 10 mg PO DIRECTED Qty: 20 RF: 0 Stand-Alone Forms: [facility] Discharge Orders: Discharge Order (Routine); Ordered 07/06/18 Ordered By: Torin Hardwick Admission Data Admit Date/Time: 07/03/18 09:46 Attending Provider: Torin Hardwick Admit Provider: Torin Hardwick Primary Care Provider: Antonio Oliver V. Other Providers: Naeem Pelayo Service: Telemetry Other Interventions: Discharge Summary Assessment (RN) Last Done: 07/06/18 11:12 Pending Studies at Discharge: Yes Studies:: blood work to rule out conditions like rheumatoid arthritis, lupus, etc. DC Date/Time DO NOT enter until pt leaves facility: 07/06/18 13:00
[2018-07-07 02:23] LABS: Anti Nuclear Antibody Screen POSITIVE (NEGATIVE); Anti-Centromere Ab <1.0 NEG AI (<1.0 NEG); Anti-SS-A <1.0 NEG AI (<1.0 NEG); Anti-SS-B <1.0 NEG AI (<1.0 NEG); Complement C3 211 MG/DL (83-193); DNA ds Crithidia NEGATIVE (NEGATIVE); Rheumatoid Factor < 14 IU/ML (<14); Sm Antibody <1.0 NEG AI (<1.0 NEG)
[2018-07-07 14:43] LABS: ANA Pattern NUCLEOLAR
== END 2018-07-06 13:00 | disposition home health service (06) | DRG 545 ==
LOC: 2S 11:21 → ED 11:21 → SUATTDRO 15:45 → 2S 17:06 → SUATTDRO 07-03 09:46
DX: T50.2X5A Adverse effect of carbonic-anhydrase inhibitors, benzothiadiazides and other diuretics, initial encounter; E87.6 Hypokalemia; M75.31 Calcific tendinitis of right shoulder; Z79.84 Long term (current) use of oral hypoglycemic drugs; Z87.01 Personal history of pneumonia (recurrent); I50.23 Acute on chronic systolic (congestive) heart failure; E11.9 Type 2 diabetes mellitus without complications; Z79.899 Other long term (current) drug therapy; I25.10 Atherosclerotic heart disease of native coronary artery without angina pectoris; Z79.01 Long term (current) use of anticoagulants; Z82.49 Family history of ischemic heart disease and other diseases of the circulatory system; I48.91 Unspecified atrial fibrillation; N17.9 Acute kidney failure, unspecified; I27.20 Pulmonary hypertension, unspecified; J96.11 Chronic respiratory failure with hypoxia; Z86.711 Personal history of pulmonary embolism; E78.5 Hyperlipidemia, unspecified; M05.30 Rheumatoid heart disease with rheumatoid arthritis of unspecified site; I42.9 Cardiomyopathy, unspecified; Z80.3 Family history of malignant neoplasm of breast; J44.9 Chronic obstructive pulmonary disease, unspecified; K21.9 Gastro-esophageal reflux disease without esophagitis; Z68.38 Body mass index [BMI] 38.0-38.9, adult; I31.8 Other specified diseases of pericardium; Z51.81 Encounter for therapeutic drug level monitoring; I11.0 Hypertensive heart disease with heart failure; E66.2 Morbid (severe) obesity with alveolar hypoventilation; Z88.4 Allergy status to anesthetic agent; Z80.1 Family history of malignant neoplasm of trachea, bronchus and lung; Z95.810 Presence of automatic (implantable) cardiac defibrillator; F25.9 Schizoaffective disorder, unspecified; F43.12 Post-traumatic stress disorder, chronic; I95.9 Hypotension, unspecified; M32.12 Pericarditis in systemic lupus erythematosus; D86.89 Sarcoidosis of other sites; Z87.891 Personal history of nicotine dependence; T38.0X5A Adverse effect of glucocorticoids and synthetic analogues, initial encounter

== ENCOUNTER 2018-07-31 08:31 | Inpatient (IN) ==
[2018-07-31 09:10] LABS: Basophils # (auto) 0.05 K/uL (0-0.2); Basophils % (auto) 0.5 %; Eosinophils % (auto) 0.9 %; Hematocrit (blood only) 39.4 % (37-47); Immature Granulocytes # (auto) 0.03 K/uL (0.00-0.02); Immature Granulocytes % (auto) 0.3 %; Lymphocytes # (auto) 2.65 K/uL (1.2-3.4); Lymphocytes % (auto) 24.2 %; Mean Corpuscular Volume 85.3 fL (80-100); Mean Platelet Volume 9.8 fL (7.4-10.4); Monocytes # (auto) 0.77 K/uL (0.11-0.59); Neutrophils # (auto) 7.36 K/uL (1.4-6.5); Neutrophils % (auto) 67.1 %; Platelet Count 299 K/uL (130-400); RDW Coefficient of Variation 15.5 % (11.5-14.5); RDW Standard Deviation 47.9 fL (36.4-46.3); Red Blood Count 4.62 M/uL (4.2-5.4); White Blood Count 10.96 K/uL (4.8-10.8)
[2018-07-31 09:23] LABS: INR 1.3 (0.9-1.1); Partial Thromboplastin Ratio 0.9; Partial Thromboplastin Time 25.3 Seconds (21.0-31.0); Prothrombin Time 13.3 Seconds (9.0-12.0)
[2018-07-31 09:36] LABS: Alanine Aminotransferase 15 U/L (12-78); Albumin Level 3.7 gm/dl (3.4-5.0); Aspartate Aminotransferase 15 U/L (15-37); BUN Creatinine Ratio 16.5 (10-20); Blood Urea Nitrogen 16 mg/dl (7-18); Carbon Dioxide 28 mmol/L (21-32); Chloride 99 mmol/L (98-107); Est GFR (African American) 72.9; Est GFR (Non-African American) 62.9; Glucose 121 mg/dl (70-99); Potassium 3.5 mmol/L (3.5-5.1); Sodium 139 mmol/L (136-145)
[2018-07-31] MEDS ORDERED: METOPROLOL TARTRATE 1 MG/ML VIAL IV STA ×2 (09:40→10:22)
[2018-07-31 09:41] LABS: Albumin Globulin Ratio 0.8 (0.9-2); Alkaline Phosphatase 98 U/L (45-117); Bilirubin,Total 1.4 mg/dl (0.2-1); Globulin 4.4 gm/dl (2.5-4.0); NT Pro B Type Natriuretic Pept 3020 pg/ml (0-900); Total Protein 8.1 gm/dl (6.4-8.2)
--- NOTE | 2018-07-31 10:15 | XRay Report ---
XR chest 1V portable CLINICAL HISTORY: Chest Pain dyspnea COMPARISON STUDY: 07/03/2018 FINDINGS: Moderate stable cardiomegaly. Stable small left effusion. Mild prominence of pulmonary vasc ulature. Unipolar cardiac pacemaker/fibrillator. IMPRESSION: Cardiomegaly. Pulmonary vascular congestion. The above report was generated using voice recognition software. It may contain grammatical, syntax or spelling errors. Electronically signed by: Osmar Kapoor M.D. 07/31/2018 10:13 AM
--- NOTE | 2018-07-31 11:26 | History & Physical Report ---
Date of Service July 31, 2018 Assessment & Plan (1) Atrial fibrillation with RVR: Patient with history of the same. She was cardioverted in June. Presents today in AF with RVR. Most likely contributing to her SOB, possibly some CHF in setting of poor rate control. She reports compliance with her medications. HR improved slightly with Metoprolol given in ER. Digoxin level= 0.4 -Admit to PCU for cardiac monitoring -Will give increased dose of digoxin 0.25mg today then resume home dose of 0.125 mg daily tomorrow -Continue Toprol XL 50mg po qAM and 25mg po qPM -Continue Rivaroxaban for anticoagulation -Will trend troponin q 8 hours x 3 sets -Check 2D echocardiogram to assess EF and possible progression of effusion -Cardiology consultation - appreciate assistance with this case Present on Admission?: Yes (2) Shortness of breath: Patient with adequate oxygenation on NC. No respiratory distress noted. Progressive SOB over the last month. BNP is elevated but near prior levels. CXR with possible PVC. -Rate control as above -Continue Lasix 40mg po BID (she was changed to Bumex 1mg po daily on discharge 07/06/18 but changed back to Lasix by [facility] on 17 Jul 2018) -May need additional diuretic -Supplemental O2 as needed (3) Acute on chronic systolic heart failure: Patient with history of NICM with poor EF. Possibly in mild failure now - SOB, PVC on CXR -Supplemental O2 as needed -Continue Metoprolol XL 50mg po daily, 25mg po PM -Continue Lasix 40mg po BID -Electrolyte repletion based on labs - Will add additional diuretic pending blood pressure -Echo as above (4) Pericardial effusion: History of the same. Suspected pericarditis during last hospital stay. Does not appear to have tamponade at this time - no JVD, heart sounds pronounced , BP maintained. Autoimmune workup during last hospital stay with Positive JOHNSON , 1:80 in nucleolar pattern (most commonly associated with scleroderma, CREST, systemic sclerosis and Sjogren's). -Repeat echo to assess effusion -Check ESR -Continue Colchicine 0.6mg po BID -Patient is to followup with Rheumatology in October 2018 as scheduled (5) Diabetes: Blood sugar well controlled at present. Patient is on Metformin at home. A1C=6 in 04/2018 -Hold Metformin -Lantus 8u BID -ISS based on weight -Continue to monitor (6) Chronic respiratory failure with hypoxia: No respiratory distress at present. Subjective SOB. Adequate oxygenation -Supplemental O2 as needed (7) Morbid obesity: Noted. Encourage lifestyle modification, diet and exercise (8) Schizoaffective disorder: Stable. -Continue Seroquel -Continue Trazodone (9) GERD (gastroesophageal reflux disease): Stable. -Continue Omeprazole (10) Hypokalemia: Daily labs -Replete K as needed (11) COPD (chronic obstructive pulmonary disease): Stable. No wheeze. Adequate oxygenation on NC -Albuterol PRN F/E/N - Heplock. Diuresis as above. Monitor daily labs and replete electrolytes as needed. CC/Heart healthy diet as tolerated Ppx - Anticoagulated with Rivaroxaban, continue home omeprazole Code - Full per discussion with patient Dispo -Admit to PCU History of Present Illness Chief Complaint: SOB, palpitations Primary Care Provider: Antonio Oliver MD Patient is a 57yo AA female with multiple medical problems to include atrial fibrillation, Type II DM, HTN, CHF with EF of 25-30% per echo 06/30/18, ventricular arrhythmia s/p AICD placement, and known pericardial effusion. She was recently admitted to [facility] from 06/28/18 to 07/06/18 for severe dyspnea/CHF and chest pain. During that hospital stay her pericardial effusion was found to be slightly larger. She was also thought to have pericarditis from the effusion causing her chest pain. An autoimmune workup was pursued and she was started on Colchicine 0.6mg po BID with resolution of her chest discomfort. Patient states that she has not felt right since her recent discharge. She has had persistent and progressive SOB as well as more frequent palpitations and racing heart. Decreased exercise tolerance and inability to perform ADLs due to SOB. She has been coughing for the last 24 hours - productive for white frothy sputum. She states that she has chest discomfort only when she coughs as well as orthopnea. She denies weight gain, edema, fevers, chills, abdominal pain or distention, nausea/vomiting/diarrhea or constipation. She states that she sweats frequently and feels overheated - no changes in these complaints. Patient has AICD in place, no discharges since 2013. ER Course: Metoprolol tartrate 3mg IV, 5mg IV Allergies Allergy/AdvReac Type Severity Reaction Status Date / Time fentanyl Allergy Mild RASH,ITCHIN Verified 07/31/18 09:49 G Home Medications Home Medications Medication Instructions Recorded Confirmed Type atorvastatin 10 mg PO DAILY 05/31/18 07/31/18 History digoxin 0.125 mg PO DAILY 05/31/18 07/31/18 History diphenhydramine HCl [Benadryl] 25 mg PO QAM 05/31/18 07/31/18 History docusate sodium [Colace] 100 mg PO BID 05/31/18 07/31/18 History gabapentin 600 mg PO BID 05/31/18 07/31/18 History hydroxyzine pamoate [Vistaril] 50 mg PO QPM 05/31/18 07/31/18 History metformin 500 mg PO BID 05/31/18 07/31/18 History omeprazole 20 mg PO DAILY 05/31/18 07/31/18 History quetiapine [Seroquel] 50 mg PO DAILY 05/31/18 07/31/18 History quetiapine [Seroquel] 300 mg PO HS 05/31/18 07/31/18 History rivaroxaban [Xarelto] 20 mg PO DAILY 05/31/18 07/31/18 History trazodone 600 mg PO HS 05/31/18 07/31/18 History albuterol sulfate 2 inha INH QID PRN #6.7 gm 06/12/18 07/31/18 Rx potassium chloride 20 meq PO DAILY 06/28/18 07/31/18 History colchicine [Colcrys] 0.6 mg PO BID #60 tab 07/06/18 07/31/18 Rx metoprolol succinate [Toprol XL] 50 mg PO DAILY #30 tab 07/06/18 07/31/18 Rx Lasix 40 mg PO BID 07/31/18 07/31/18 History metoprolol succinate 25 mg PO DAILY 07/31/18 07/31/18 History Past Med/Surg History Social History marital status: marital status details: 5 kids Current Living Situation: Alone and Family Current Living Situation Comment: [facility] Resident 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 other: lives in [employer] Feels Safe at Home: Yes Smoking Status: Former smoker Cigarettes per Day: <1 ppd Hx Alcohol Use: No Hx Substance Use: No Beliefs That Will Affect Care: None Preferred Language: Czech Visual Impairment: No Limitations Review of Systems All systems reviewed & are unremarkable except as noted in HPI & below Physical Exam 2 Vital Signs (Past 24 Hours): Last Vital Signs Temp 36.6 C 07/31/18 08:34 Pulse 135 H 07/31/18 10:52 Resp 18 07/31/18 10:47 BP 110/81 07/31/18 10:52 Pulse Ox 99 07/31/18 10:47 Physical Exam: General: patient appears uncomfortable, mildly anxious, NAD, non-toxic in appearance, AA&O x 4 Skin: warm, diaphoretic, no rashes/lesions HEENT: NC/AT, PERRL, EOMI, anicteric sclera, conjunctiva without injection, external ear normal to inspection and nontender, nares patent, moist mucus membranes, dentition intact, no oropharyngeal lesions, neck supple, trachea midline, no LAD, no thyromegaly, no JVD Heart: +S1/S2, irregularly irregular, tachycardic, no m/r/g Lungs: equal air entry bilaterally, diminished in bilateral baes, no rales/ rhonchi/wheezes Abd: obese, +BS, soft, NT/ND, no masses/organomegaly/ascites Ext: cool, good capillary refill, 2+ pulses in UE/LE bilaterally, no clubbing/ cyanosis or edema Neuro: nonfocal, patient AA&O x 4, speech intact, no facial droop, moving all extremities on command with equal strength 5/5 Results & Data Laboratory Results Lab Results 07/31/18 07/31/18 07/31/18 Range/Units 08:46 08:46 08:46 WBC 10.96 H (4.8-10.8) K/uL RBC 4.62 (4.2-5.4) M/uL Hgb 13.0 (12.0-16.0) g/dL Hct 39.4 (37-47) % MCV 85.3 (80-100) fL MCH 28.1 (25-34) pg MCHC 33.0 (32-36) g/dL RDW Std Deviation 47.9 H (36.4-46.3) fL RDW Coeff of Logan 15.5 H (11.5-14.5) % Plt Count 299 (130-400) K/uL MPV 9.8 (7.4-10.4) fL Immature Gran % (Auto) 0.3 % Neut % (Auto) 67.1 % Lymph % (Auto) 24.2 % [place] % (Auto) 7.0 % Eos % (Auto) 0.9 % Baso % (Auto) 0.5 % Immature Gran # (Auto) 0.03 H (0.00-0.02) K/uL Neut # (Auto) 7.36 H (1.4-6.5) K/uL Lymph # (Auto) 2.65 (1.2-3.4) K/uL [place] # (Auto) 0.77 H (0.11-0.59) K/uL Eos # (Auto) 0.10 (0-0.5) K/uL Baso # (Auto) 0.05 (0-0.2) K/uL PT 13.3 H (9.0-12.0) Seconds INR 1.3 H (0.9-1.1) APTT 25.3 (21.0-31.0) Seconds PTT Ratio 0.9 Sodium 139 (136-145) mmol/L Potassium 3.5 (3.5-5.1) mmol/L Chloride 99 (98-107) mmol/L Carbon Dioxide 28 (21-32) mmol/L Anion Gap 12.0 H (3-11) BUN 16 (7-18) mg/dl Creatinine 1.00 (0.6-1.2) mg/dl Est Cr Clr Drug Dosing Not Reportable Est GFR ( Amer) 72.9 Est GFR (Non-Af Amer) 62.9 BUN/Creatinine Ratio 16.5 (10-20) Glucose 121 H (70-99) mg/dl Calcium 9.0 (8.5-10.1) mg/dl Total Bilirubin 1.4 H (0.2-1) mg/dl AST 15 (15-37) U/L ALT 15 (12-78) U/L Alkaline Phosphatase 98 (45-117) U/L POC Troponin I (0-0.045) ng/ml NT-Pro-B Natriuret Pep 3020 H (0-900) pg/ml Total Protein 8.1 (6.4-8.2) gm/dl Albumin 3.7 (3.4-5.0) gm/dl Globulin 4.4 H (2.5-4.0) gm/dl Albumin/Globulin Ratio 0.8 L (0.9-2) Lipase 49 L (73-393) U/L Digoxin (0.8-2.0) ng/ml 07/31/18 07/31/18 Range/Units 08:46 09:09 WBC (4.8-10.8) K/uL RBC (4.2-5.4) M/uL Hgb (12.0-16.0) g/dL Hct (37-47) % MCV (80-100) fL MCH (25-34) pg MCHC (32-36) g/dL RDW Std Deviation (36.4-46.3) fL RDW Coeff of Logan (11.5-14.5) % Plt Count (130-400) K/uL MPV (7.4-10.4) fL Immature Gran % (Auto) % Neut % (Auto) % Lymph % (Auto) % [place] % (Auto) % Eos % (Auto) % Baso % (Auto) % Immature Gran # (Auto) (0.00-0.02) K/uL Neut # (Auto) (1.4-6.5) K/uL Lymph # (Auto) (1.2-3.4) K/uL [place] # (Auto) (0.11-0.59) K/uL Eos # (Auto) (0-0.5) K/uL Baso # (Auto) (0-0.2) K/uL PT (9.0-12.0) Seconds INR (0.9-1.1) APTT (21.0-31.0) Seconds PTT Ratio Sodium (136-145) mmol/L Potassium (3.5-5.1) mmol/L Chloride (98-107) mmol/L Carbon Dioxide (21-32) mmol/L Anion Gap (3-11) BUN (7-18) mg/dl Creatinine (0.6-1.2) mg/dl Est Cr Clr Drug Dosing Est GFR ( Amer) Est GFR (Non-Af Amer) BUN/Creatinine Ratio (10-20) Glucose (70-99) mg/dl Calcium (8.5-10.1) mg/dl Total Bilirubin (0.2-1) mg/dl AST (15-37) U/L ALT (12-78) U/L Alkaline Phosphatase (45-117) U/L POC Troponin I < 0.03 (0-0.045) ng/ml NT-Pro-B Natriuret Pep (0-900) pg/ml Total Protein (6.4-8.2) gm/dl Albumin (3.4-5.0) gm/dl Globulin (2.5-4.0) gm/dl Albumin/Globulin Ratio (0.9-2) Lipase (73-393) U/L Digoxin 0.4 L (0.8-2.0) ng/ml Diagnostic Findings XR chest 1V portable CLINICAL HISTORY: Chest Pain dyspnea COMPARISON STUDY: 07/03/2018 FINDINGS: Moderate stable cardiomegaly. Stable small left effusion. Mild prominence of pulmonary vasculature. Unipolar cardiac pacemaker/fibrillator. IMPRESSION: Cardiomegaly. Pulmonary vascular congestion. The above report was generated using voice recognition software. It may contain grammatical, syntax or spelling errors. Electronically signed by: Osmar Kapoor M.D. 07/31/2018 10:13 AM Dictated: 07/31/18 1012 Transcribed: 07/31/18 1012 ECG Additional Comments: The study shows atrial fibrillation with RVR, rate of 165, right axis deviation, QRS=92, MFe=091, mild ST-T flattening Code Status & VTE Plan Code Status FULL CODE Critical Care Time Critical Care Time: No _ (1) Schizoaffective disorder Schizoaffective disorder type: other Qualified Code(s): F25.8 - Other schizoaffective disorders (2) GERD (gastroesophageal reflux disease) Esophagitis presence: esophagitis presence not specified Qualified Code(s): K21.9 - Gastro-esophageal reflux disease without esophagitis (3) COPD (chronic obstructive pulmonary disease) COPD type: unspecified COPD Chronic bronchitis type: Emphysema type: Qualified Code(s): J44.9 - Chronic obstructive pulmonary disease, unspecified (4) Diabetes Diabetes mellitus type: type 2 Diabetes mellitus 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
[2018-07-31] MEDS ORDERED: CARBOHYDRATES FOR HYPOGLYCEMIA PO PRN (11:40)
[2018-07-31] MEDS ORDERED: DEXTROSE 50% 50 ML SYRINGE IV PRN (11:40)
[2018-07-31] MEDS ORDERED: ONDANSETRON INJ 2 MG/ML 2 ML VIAL IV PRN (11:40)
[2018-07-31] MEDS ORDERED: GLUCOSE 40% GEL 15 GM TUBE PO PRN (11:40)
[2018-07-31] MEDS ORDERED: DIGOXIN 0.25 MG TAB PO ONE (11:40)
[2018-07-31] MEDS ORDERED: GLUCOSE 10 TABS/TUBE PO PRN (11:40)
[2018-07-31] MEDS ORDERED: GLUCAGON FOR INJ 1 MG VIAL SQ PRN (11:40)
[2018-07-31] MEDS ORDERED: METOPROLOL SUCC 25MG EXT REL TAB PO SCH (12:00)
[2018-07-31 12:37] LABS: Magnesium 2.2 mg/dl (1.8-2.4); Phosphorus 5.2 mg/dl (2.5-4.9); Troponin I 0.026 ng/ml (0-0.045)
[2018-07-31] MEDS: METOPROLOL SUCC 50MG EXT REL TAB PO SCH (12:51)
[2018-07-31] MEDS: INSULIN ASPART 100 UNITS/ML 3 ML PEN SC SCH ×3 (12:52→19:39)
[2018-07-31] MEDS: INSULIN GLARGINE SOLOSTAR 100 UNITS/ML 3 ML PEN SC SCH ×2 (12:52→19:38)
[2018-07-31] MEDS: DIGOXIN 0.125 MG TAB PO SCH (15:50)
[2018-07-31] MEDS ORDERED: FUROSEMIDE 40 MG in SYRINGE 0 ML IV ONE (16:00)
[2018-07-31] MEDS ORDERED: RIVAROXABAN 20 MG TAB PO SCH (16:30)
--- NOTE | 2018-07-31 16:33 | Cardiology Consultation ---
Date of Consultation July 31, 2018 Assessment & Plan (1) Atrial fibrillation: She continues to have elevated ventricular rates. We have struggled in the past with controlling her heart rate. The time of her discharge she was felt to have reasonable control. An outpatient setting she had borderline control. I am not confident that she has had good control over the past few weeks. Efforts to achieve more rate control have been frustrated by hypotension. It is very possible that her higher rates are contributing both to decompensation is possibly worsening of her ventricular function. At this point I think we need to be more aggressive. In the past I hesitated to suggest an AV jennifer ablation given her relatively young age. However, in the setting with severe cardiomyopathy in poorly controlled rates I think an AV node ablation with an upgrade to a biventricular ICD may be the best option. I did discuss this option with the patient today and I think we will plan on proceeding during this admission. This would guarantee good rate control and likely improve overall LV function. May even improve some for mitral regurgitation. Present on Admission?: Yes (2) Pericardial effusion: She has had a persistent pericardial effusion for a few months. The echocardiogram today is suggestive of a mild reduction in the pericardial effusion. Certainly no worse. Do not believe she has hemodynamic compromise. In the past she was treated with colchicine without any significant resolution. There has been some suspicion that she harbors an occult connective tissue disorder and she is scheduled to be evaluated on an outpatient basis. Unfortunately, the location of the effusion is posterior and would be difficult to access via percutaneous approach. I do not believe he requires drainage at this time. Present on Admission?: Yes (3) Chest pain: This is not related to an acute coronary syndrome. Possibly related to an element of pericarditis or even musculoskeletal. Present on Admission?: Yes (4) Congestive heart failure with cardiomyopathy: I believe the etiology of her breathing difficulties decompensated heart failure. While she does not have significant peripheral edema and claims to have lost weight, I am sure her severely reduced LV function plays a role in her symptoms. Her lung exam is relatively benign, the BNP is elevated. I think we will attempt diuresis monitoring her symptoms and hemodynamics closely. Present on Admission?: Yes (5) Nonischemic cardiomyopathy: She underwent coronary angiography in 2006. The etiology of her LV dysfunction is unknown. She has been maintained on a beta-julee and currently on digoxin. Her diuretic regimen has been adjusted in the past and may no longer be efficacious. She had been on losartan previously but this was discontinued in order to facilitate more aggressive rate control. Ideally she would be back on an ARB or preferably Entresto. Perhaps with AV node ablation we will see an improvement in her hemodynamics and be able to add medical therapy. [facility] for more advanced heart failure therapy may be of value. Present on Admission?: Yes (6) Severe mitral regurgitation: I believe this is most likely functional given her dilated cardiomyopathy. However, there did not appear to be good options for addressing this issue at this time. He likely does play a role in her overall poor condition. Present on Admission?: Yes History of Present Illness Reason for Consultation: Atrial fibrillation, congestive heart failure Requesting Physician: Daniel Attending Physician: Luisa Sanchez, DO History of Present Illness The patient is a 57-year-old woman well known to our service with a history of a severe nonischemic cardiomyopathy, mitral regurgitation and persistent atrial fibrillation who was discharged at the end of June after an admission for heart failure and atrial fibrillation. The patient returned home but never felt very well. She had persistent fatigue and an element of dyspnea with activity. This appears to have been progressive over a couple of weeks. She reported dyspnea not only with activity but at nighttime as well. In fact, she stated that she needed to sleep in an upright position often times leaning forward on a pillow in order to breathe properly at night. She does use supplemental oxygen all of the time. She did not notice significant edema. While she is not generally aware of palpitations she feels that her heart rate has been elevated over that period of time. She did not feel that she was urinating very much and did switch from Bumex vector old prescription for furosemide recently. She has been following a fluid restriction of 7 cups of water daily. She does weigh herself at home and feels that she has actually lost weight over the past few weeks. She has some mild dizziness at times but no presyncope or syncope. No therapies from her device. Allergies Allergy/AdvReac Type Severity Reaction Status Date / Time fentanyl Allergy Mild RASH,ITCHIN Verified 07/31/18 09:49 G Home Medications Home Medications Medication Instructions Recorded Confirmed Type atorvastatin 10 mg PO DAILY 05/31/18 07/31/18 History digoxin 0.125 mg PO DAILY 05/31/18 07/31/18 History diphenhydramine HCl [Benadryl] 25 mg PO QAM 05/31/18 07/31/18 History docusate sodium [Colace] 100 mg PO BID 05/31/18 07/31/18 History gabapentin 600 mg PO BID 05/31/18 07/31/18 History hydroxyzine pamoate [Vistaril] 50 mg PO QPM 05/31/18 07/31/18 History metformin 500 mg PO BID 05/31/18 07/31/18 History omeprazole 20 mg PO DAILY 05/31/18 07/31/18 History quetiapine [Seroquel] 50 mg PO DAILY 05/31/18 07/31/18 History quetiapine [Seroquel] 300 mg PO HS 05/31/18 07/31/18 History rivaroxaban [Xarelto] 20 mg PO DAILY 05/31/18 07/31/18 History albuterol sulfate 2 inha INH QID PRN #6.7 gm 06/12/18 07/31/18 Rx potassium chloride 20 meq PO DAILY 06/28/18 07/31/18 History colchicine [Colcrys] 0.6 mg PO BID #60 tab 07/06/18 07/31/18 Rx metoprolol succinate [Toprol XL] 50 mg PO DAILY #30 tab 07/06/18 07/31/18 Rx Lasix 40 mg PO BID 07/31/18 07/31/18 History metoprolol succinate 25 mg PO DAILY 07/31/18 07/31/18 History trazodone 200 mg PO HS 07/31/18 07/31/18 History Patient History Medical History Asthma (Chronic) CHF (congestive heart failure) (Chronic) 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% per echo 06/06/18; non-obstructive CAD per cath 2006 HTN (hypertension) (Chronic) PTSD (post-traumatic stress disorder) (Chronic) Atrial fibrillation Diabetes type 2, controlled patient denies having diabetes, does not want further testing even though she is prescribed Metformin GERD (gastroesophageal reflux disease) Morbid obesity Pulmonary embolism 2013 while living in [place] Schizoaffective disorder Ventricular arrhythmia Surgical History Pacemaker (Chronic) AICD (automatic cardioverter/defibrillator) present S/P ORIF (open reduction internal fixation) fracture ankle, left S/P tubal ligation Family History Mother , in her 70s Lung cancer Breast cancer Congestive heart failure (CHF) Father No problems noted. Other Hypertension Social History marital status: marital status details: 5 kids Current Living Situation: Alone Current Living Situation Comment: [place] Res[employer] 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: previously worked as [employer] Other Information That Helps Us Care for You: No other: lives [place] Feels Safe at Home: No Is there a partner from a previous relationship who is making you feel unsafe now?: No Any Concerns about Your Family Situation: Yes Would You Like to Speak to Someone About Your Situation: Yes (pt feel unable to care for self) Safety Concerns: Afraid for Self Smoking Status: Former smoker Cigarettes per Day: <1 ppd Hx Alcohol Use: No Hx Substance Use: No Beliefs That Will Affect Care: None Preferred Language: Serbian Communication Ability: Effective Associate Media Planner Required: No Review of Systems Complete. Pertinent positives known history present illness. In addition to the aforementioned symptoms patient has a persistent cough that has not improved. She has some discomfort in the right lateral chest area. This occurs with lying on the right side but is not there with deep inspiration. No consti tutional symptoms such as fevers or chills. Physical Exam Vital Signs (Past 24 Hours): Last Vital Signs Temp 36.5 C 07/31/18 16:00 Pulse 120 H 07/31/18 16:00 Resp 18 07/31/18 16:00 BP 101/72 07/31/18 16:00 Pulse Ox 100 07/31/18 16:00 Physical Exam: She is alert and oriented x3. Mood affect appear normal. She answered all questions appropriately. Obese. HEENT: Sclerae are anicteric. Pupils are equal and reactive to light and accommodation. Extraocular movements were intact. Neuro: Cranial nerves intact Neck: Examination of the submandibular region did not reveal any significant lymphadenopathy. Carotids are palpable bilaterally and free of bruits on auscultation. The thyroid was not enlarged. Lungs: Lungs are clear to auscultation bilaterally. There are no rales wheezes or rhonchi. She has normal respiratory effort without use of accessory muscles. There is normal pulmonary excursion. Cardiac: The rhythm was irregular. S1 and S2 were normal. Holosystolic murmur variable intensity. The PMI was not markedly displaced on palpation. Abdomen: The abdomen was soft and nontender. Extremities: Patient has bilateral radial pulses that are equal in intensity. There is no evidence cyanosis or clubbing. There was no evidence of significant peripheral edema bilaterally. Skin: There are no rashes noted on examination today. Results & Data Laboratory Results Abnormal Lab Results 07/31/18 07/31/18 07/31/18 08:46 08:46 08:46 WBC 10.96 H RBC 4.62 Hgb 13.0 Hct 39.4 MCV 85.3 MCH 28.1 MCHC 33.0 RDW Std Deviation 47.9 H RDW Coeff of [place] 15.5 H Plt Count 299 MPV 9.8 Immature Gran % (Auto) 0.3 Neut % (Auto) 67.1 Lymph % (Auto) 24.2 [place] % (Auto) 7.0 Eos % (Auto) 0.9 Baso % (Auto) 0.5 Immature Gran # (Auto) 0.03 H Neut # (Auto) 7.36 H Lymph # (Auto) 2.65 [place] # (Auto) 0.77 H Eos # (Auto) 0.10 Baso # (Auto) 0.05 ESR PT 13.3 H INR 1.3 H APTT 25.3 PTT Ratio 0.9 Sodium 139 Potassium 3.5 Chloride 99 Carbon Dioxide 28 Anion Gap 12.0 H BUN 16 Creatinine 1.00 Est Cr Clr Drug Dosing Not Reportable Est GFR ( Amer) 72.9 Est GFR (Non-Af Amer) 62.9 BUN/Creatinine Ratio 16.5 Glucose 121 H Calcium 9.0 Phosphorus Magnesium Total Bilirubin 1.4 H AST 15 ALT 15 Alkaline Phosphatase 98 POC Troponin I Troponin I NT-Pro-B Natriuret Pep 3020 H Total Protein 8.1 Albumin 3.7 Globulin 4.4 H Albumin/Globulin Ratio 0.8 L Lipase 49 L Digoxin 07/31/18 07/31/18 07/31/18 08:46 08:46 09:09 WBC RBC Hgb Hct MCV MCH MCHC RDW Std Deviation RDW Coeff of [place] Plt Count MPV Immature Gran % (Auto) Neut % (Auto) Lymph % (Auto) [place] % (Auto) Eos % (Auto) Baso % (Auto) Immature Gran # (Auto) Neut # (Auto) Lymph # (Auto) [place] # (Auto) Eos # (Auto) Baso # (Auto) ESR 75 H PT INR APTT PTT Ratio Sodium Potassium Chloride Carbon Dioxide Anion Gap BUN Creatinine Est Cr Clr Drug Dosing Est GFR ( Amer) Est GFR (Non-Af Amer) BUN/Creatinine Ratio Glucose Calcium Phosphorus Magnesium Total Bilirubin AST ALT Alkaline Phosphatase POC Troponin I < 0.03 Troponin I NT-Pro-B Natriuret Pep Total Protein Albumin Globulin Albumin/Globulin Ratio Lipase Digoxin 0.4 L 07/31/18 11:52 WBC RBC Hgb Hct MCV MCH MCHC RDW Std Deviation RDW Coeff of [place] Plt Count MPV Immature Gran % (Auto) Neut % (Auto) Lymph % (Auto) [place] % (Auto) Eos % (Auto) Baso % (Auto) Immature Gran # (Auto) Neut # (Auto) Lymph # (Auto) [place] # (Auto) Eos # (Auto) Baso # (Auto) ESR PT INR APTT PTT Ratio Sodium Potassium Chloride Carbon Dioxide Anion Gap BUN Creatinine Est Cr Clr Drug Dosing Est GFR ( Amer) Est GFR (Non-Af Amer) BUN/Creatinine Ratio Glucose Calcium Phosphorus 5.2 H Magnesium 2.2 Total Bilirubin AST ALT Alkaline Phosphatase POC Troponin I Troponin I 0.026 NT-Pro-B Natriuret Pep Total Protein Albumin Globulin Albumin/Globulin Ratio Lipase Digoxin Diagnostic Findings Chest x-ray present admission revealed evidence of pulmonary vascular congestion and cardiomegaly. Echocardiogram performed today reveals severely reduced LV systolic function. Severe mitral regurgitation. Small to moderate pericardial effusion. ECG Additional Comments: Atrial fibrillation with rapid ventricular response. (1) Atrial fibrillation Atrial fibrillation type: unspecified Qualified Code(s): I48.91 - Unspecified atrial fibrillation (2) Chest pain Chest pain type: unspecified Ischemic chest pain type: Qualified Code(s): R07.9 - Chest pain, unspecified
[2018-07-31] MEDS: ALBUTEROL HFA 8 GM INHALER INH PRN (16:38)
[2018-07-31] MEDS ORDERED: FUROSEMIDE 40 MG TAB PO SCH (17:00)
[2018-07-31] MEDS ORDERED: COUGH DROP (SUGAR FREE) LOZ 24 LOZ/1 BOX BUCCAL STA (18:26)
[2018-07-31] MEDS: ACETAMINOPHEN 325 MG TAB PO PRN (19:42)
[2018-07-31] MEDS ORDERED: LASIX 40 MG PO SCH (21:00)
[2018-07-31] MEDS ORDERED: FUROSEMIDE 60 MG in SYRINGE 0 ML IV ONE (21:30)
[2018-07-31] MEDS: GABAPENTIN 600 MG TAB PO SCH (22:21)
[2018-07-31] MEDS: TRAZODONE HCL 100 MG TAB PO SCH (22:21)
[2018-07-31] MEDS: DOCUSATE SODIUM 100 MG CAP PO SCH (22:21)
[2018-07-31] MEDS: QUETIAPINE FUMARATE 300 MG TABLET PO SCH (22:22)
[2018-07-31] MEDS: COLCHICINE 0.6 MG TAB PO SCH (22:22)
[2018-07-31] MEDS: ENOXAPARIN INJ 120 MG/0.8 ML SYR SC SCH (22:23)
[2018-08-01 03:46] LABS: Basophils # (auto) 0.04 K/uL (0-0.2); Basophils % (auto) 0.4 %; Eosinophils # (auto) 0.14 K/uL (0-0.5); Eosinophils % (auto) 1.4 %; Hematocrit (blood only) 35.5 % (37-47); Hemoglobin 11.7 g/dL (12.0-16.0); Immature Granulocytes # (auto) 0.01 K/uL (0.00-0.02); Immature Granulocytes % (auto) 0.1 %; Lymphocytes # (auto) 3.44 K/uL (1.2-3.4); Lymphocytes % (auto) 33.8 %; Mean Corpuscular Volume 84.9 fL (80-100); Mean Platelet Volume 9.5 fL (7.4-10.4); Monocytes # (auto) 0.64 K/uL (0.11-0.59); Monocytes % (auto) 6.3 %; Nucleated RBC # (auto) 0.05 K/uL (0-0); Nucleated RBC % (auto) 0.5 %; Platelet Count 253 K/uL (130-400); RDW Coefficient of Variation 15.5 % (11.5-14.5); RDW Standard Deviation 47.5 fL (36.4-46.3); Red Blood Count 4.18 M/uL (4.2-5.4); White Blood Count 10.17 K/uL (4.8-10.8)
[2018-08-01 04:05] LABS: BUN Creatinine Ratio 17.8 (10-20); Calcium 8.6 mg/dl (8.5-10.1); Creatinine Clr Calc Pharmacy 69.6 ml/min; Est GFR (Non-African American) 52.6; Potassium 2.9 mmol/L (3.5-5.1)
[2018-08-01 04:23] LABS: Troponin I 0.031 ng/ml (0-0.045)
[2018-08-01] MEDS ORDERED: POTASSIUM CHLORIDE 20 MEQ TABCR PO ONE ×3 (04:37→18:00)
[2018-08-01] MEDS: INSULIN ASPART 100 UNITS/ML 3 ML PEN SC SCH ×4 (07:48→20:11)
[2018-08-01] MEDS: INSULIN GLARGINE SOLOSTAR 100 UNITS/ML 3 ML PEN SC SCH ×2 (07:48→20:11)
[2018-08-01] MEDS: GABAPENTIN 600 MG TAB PO SCH ×2 (08:11→20:25)
[2018-08-01] MEDS: ENOXAPARIN INJ 120 MG/0.8 ML SYR SC SCH ×2 (08:11→20:25)
[2018-08-01] MEDS: QUETIAPINE FUMARATE 25 MG TABLET PO SCH (08:11)
[2018-08-01] MEDS: ATORVASTATIN 10 MG TAB PO SCH (08:11)
[2018-08-01] MEDS: DOCUSATE SODIUM 100 MG CAP PO SCH ×2 (08:11→20:18)
[2018-08-01] MEDS: COLCHICINE 0.6 MG TAB PO SCH ×2 (08:12→20:25)
[2018-08-01] MEDS: PANTOprazole 40 MG TAB PO SCH (08:12)
[2018-08-01] MEDS: METOPROLOL SUCC 50MG EXT REL TAB PO SCH ×2 (08:12→11:41)
[2018-08-01] MEDS ORDERED: METOPROLOL SUCC 25MG EXT REL TAB PO SCH (09:00)
[2018-08-01 09:33] LABS: BUN Creatinine Ratio 20.3 (10-20); Calcium 9.1 mg/dl (8.5-10.1); Creatinine Clr Calc Pharmacy 70.3 ml/min; Est GFR (African American) 61.6; Est GFR (Non-African American) 53.1
[2018-08-01] MEDS: ALBUTEROL HFA 8 GM INHALER INH PRN (09:59)
[2018-08-01] MEDS ORDERED: POTASSIUM CHLORIDE 20 MEQ TABCR PO STA (10:59)
--- NOTE | 2018-08-01 12:57 | Cardiology Progress Note ---
Date of Service August 01, 2018 Assessment & Plan (1) Atrial fibrillation: I increased her metoprolol dose today. I think the ultimate solution will be an AV node ablation and upgrade of her current device to a biventricular system. I would like to perform this when she is better compensated. Hopefully we can make some progress with respect to presumed pulmonary edema today and possibly perform the procedure on . I stopped her oral anticoagulants yesterday in anticipation of the procedure. She will be continued on the therapeutic dose of Lovenox until that time. (2) Pericardial effusion: This looks slightly smaller on her echocardiogram performed yesterday. I do not believe this is causing any hemodynamic compromise. The etiology is unclear but there is a suspicion for connective tissue disorder. (3) Chest pain: This is not related to an acute coronary syndrome. Possibly related to an element of pericarditis or even musculoskeletal. (4) Congestive heart failure with cardiomyopathy: Clinically she is not much improved. There is a lot of difficulty determining her response to diuretic therapy. She was administered 2 doses of diuretic yesterday but no urine output was recorded. She is markedly hypokalemic and I ordered her replacement today. I asked him to place a Uribe catheter so that we can better web developer her response to diuresis and provide more effective therapy. She does not appear to have peripheral edema. Her lung examination is remarkably normal. I think the possibility of an alternate etiology does exist. Perhaps she has some form of atypical pneumonia. I think if we can effect adequate diuresis and she continues to have symptoms a primary pulmonary etiology may need to be explored. (5) Nonischemic cardiomyopathy: Will continue on beta-blockade. Once her hemodynamics appear to be stable we will consider addition of ARB or possibly Entresto (6) Severe mitral regurgitation: I believe this is most likely functional given her dilated cardiomyopathy. However, there did not appear to be good options for addressing this issue at this time. He likely does play a role in her overall poor condition. Subjective This morning the patient continues to endorse significant dyspnea. She was able sleep poorly due to breathing difficulty. She does not have chest pain currently lying on her left side. She has not been aware of palpitations. Minimal ambulation. She does complain of continued cough as well. Physical Exam 2 Vital Signs (Past 24 Hours): Last Vital Signs Temp 36.4 C L 08/01/18 11:46 Pulse 130 H 08/01/18 11:46 Resp 18 08/01/18 11:46 BP 102/65 08/01/18 11:46 Pulse Ox 98 08/01/18 11:46 Physical Exam: She is alert and oriented x3. Mood affect appear normal. She answered all questions appropriately. She was tachypneic. HEENT: Sclerae are anicteric. Pupils are equal and reactive to light and accommodation. Extraocular movements were intact. Neuro: Cranial nerves intact Neck: Examination of the submandibular region did not reveal any significant lymphadenopathy. Carotids are palpable bilaterally and free of bruits on auscultation. There was no evidence of jugular venous distention. The thyroid was not enlarged. Lungs: Lungs are clear to auscultation bilaterally. There are no rales wheezes or rhonchi. She has normal respiratory effort without use of accessory muscles. There is normal pulmonary excursion. Cardiac: The rhythm was irregular. S1 and S2 were normal. There are no murmurs on examination. The PMI was not markedly displaced on palpation. Abdomen: The abdomen was soft and nontender. Extremities: Patient has bilateral radial pulses that are equal in intensity. There is no evidence cyanosis or clubbing. There was no evidence of significant peripheral edema bilaterally. Skin: There are no rashes noted on examination today. Results & Data Laboratory Results Abnormal Lab Results 07/31/18 08/01/18 08/01/18 19:40 03:30 03:30 WBC 10.17 RBC 4.18 L Hgb 11.7 L Hct 35.5 L MCV 84.9 MCH 28.0 MCHC 33.0 RDW Std Deviation 47.5 H RDW Coeff of [place] 15.5 H Plt Count 253 MPV 9.5 Immature Gran % (Auto) 0.1 Neut % (Auto) 58.0 Lymph % (Auto) 33.8 [place] % (Auto) 6.3 Eos % (Auto) 1.4 Baso % (Auto) 0.4 Immature Gran # (Auto) 0.01 Neut # (Auto) 5.90 Lymph # (Auto) 3.44 H [place] # (Auto) 0.64 H Eos # (Auto) 0.14 Baso # (Auto) 0.04 Absolute Nucleated RBC 0.05 H Nucleated RBC % (auto) 0.5 Sodium 139 Potassium 2.9 L D Chloride 99 Carbon Dioxide 31 Anion Gap 9.0 BUN 21 H Creatinine 1.16 Est Cr Clr Drug Dosing 69.6 Est GFR ( Amer) 61.0 Est GFR (Non-Af Amer) 52.6 BUN/Creatinine Ratio 17.8 Glucose 106 H Calcium 8.6 Troponin I 0.030 0.031 08/01/18 08:57 WBC RBC Hgb Hct MCV MCH MCHC RDW Std Deviation RDW Coeff of [place] Plt Count MPV Immature Gran % (Auto) Neut % (Auto) Lymph % (Auto) [place] % (Auto) Eos % (Auto) Baso % (Auto) Immature Gran # (Auto) Neut # (Auto) Lymph # (Auto) [place] # (Auto) Eos # (Auto) Baso # (Auto) Absolute Nucleated RBC Nucleated RBC % (auto) Sodium 136 Potassium 3.0 L Chloride 99 Carbon Dioxide 30 Anion Gap 7.0 BUN 23 H Creatinine 1.15 Est Cr Clr Drug Dosing 70.3 Est GFR ( Amer) 61.6 Est GFR (Non-Af Amer) 53.1 BUN/Creatinine Ratio 20.3 H Glucose 146 H Calcium 9.1 Troponin I ECG Additional Comments: Telemetry demonstrated persistent atrial fibrillation and high ventricular rates _ (1) Atrial fibrillation Atrial fibrillation type: unspecified Qualified Code(s): I48.91 - Unspecified atrial fibrillation (2) Chest pain Chest pain type: unspecified Ischemic chest pain type: Qualified Code(s): R07.9 - Chest pain, unspecified
[2018-08-01] MEDS: DIGOXIN 0.125 MG TAB PO SCH (15:49)
[2018-08-01 16:02] LABS: HCO3 ABG 20 mmol/L (19-24); Oxygen Saturation ABG 98.3 % (90-95); PCO2 ABG 29 mmHg (35-46); PO2 ABG 109 mm/Hg (80-95); pH ABG 7.45 (7.35-7.45)
[2018-08-01 16:03] LABS: Allen Test Pos (Pos)
--- NOTE | 2018-08-01 16:06 | Hospitalist Progress Note ---
Date of Service August 01, 2018 Assessment & Plan (1) Shortness of breath: Patient is listed as having acute on chronic respiratory failure * ABG with pH of 7.45. There is no hypercapnia. PaO2 is 109 on 3 L of supplemental O2. * Lungs are completely clear to auscultation * No bronchospasm so would hold on nebulizer treatment secondary to atrial fibrillation with RVR * Supplemental O2 with SaO2 less than 88% * No evidence of infiltrate; no cough or sputum production; afebrile Suspect etiology is primarily cardiac Continue to monitor on telemetry (2) Atrial fibrillation with RVR: Anticoagulated on Rivaaroxaban Cardiology following -appreciate Dr. Pelayo's input No chest pain or tightness No neurological changes Previous cardioversion in June 2018 Digoxin level 0.4 Continues on metoprolol succinate Dual-chamber pacemaker as well as jennifer ablation being considered Further management per cardiology Continue on telemetry (3) Acute on chronic systolic heart failure: Diuretics held by cardiology today And ICM with left ventricular ejection fraction of 25-30% ABG shows adequate oxygenation Further management per cardiology (4) Pericardial effusion: Previous treated with colchicine No chest pain or tightness No evidence of tamponade on echocardiogram Persistent (5) Diabetes: Hemoglobin A1c 04/2018 was 6 Metformin held while inpatient Continue with Lantus twice daily Continue with NovoLog sliding scale insulin (6) Schizoaffective disorder: Patient on Seroquel and trazodone Patient appears stable No paranoia or other affective changes. (7) Electrolyte imbalance: Magnesium is now repleted at 2.0 Continues to struggle with hypokalemia Continue to follow daily labs and replete as needed (8) DVT prophylaxis: Patient anticoagulated with Xarelto Ambulate as tolerated No asymmetrical edema Continue to monitor Please refer to Dr. Mccall's addendum for further recommendations to the plan. Subjective Attending: Dr. Mccall This is a 57-year-old female who was admitted yesterday with shortness of breath and found to have pericardial effusion and very small left pleural effusion. Cardiology was consulted and she is following with Dr. Pelayo. It is anticipated that the patient will get a dual-chamber pacemaker with jennifer ablation. Patient's chief complaint is shortness of breath. She is actually well in the mid 90s on 3 L of supplemental oxygen via nasal cannula. She denies any chest pain or tightness. She does feel warm but has a temperature of 36 �C. She is in atrial fibrillation with RVR. Diuretics have been held by cardiology. She continues on her other home cardiac medications. Echocardiogram on 06/30/2018 revealed an ejection fraction of 25-30% with ventricular arrhythmia status post AICD placement. She has a chronic pericardial effusion. She has no discomfort from this. Physical Exam Vital Signs (Past 24 Hours): Last Vital Signs Temp 36.4 C L 08/01/18 15:29 Pulse 128 H 08/01/18 15:49 Resp 22 08/01/18 15:29 BP 103/47 L 08/01/18 15:29 Pulse Ox 100 08/01/18 15:29 Physical Exam: GENERAL : Moderate distress. EYES: No icterus, gaze conjugate NOSE: No evidence of epistaxis MOUTH: No lesions or candidiasis. No facial droop. Tongue is midline NECK: Supple. No carotid bruits LUNGS: CTA B/L, no wheezes, rales or rhonchi. No adventitious breath sounds at all. HEART: Irregular, irregular, tachycardic ABDOMEN: Soft, NT, ND, BS Present EXTREMITIES: No LE edema, pedal pulses intact. All extremities are cool to touch NEURO: A&OX3 Results & Data Laboratory Results Abnormal lab results 08/01/18 08/01/18 08/01/18 Range/Units 03:30 03:30 08:57 RBC 4.18 L (4.2-5.4) M/uL Hgb 11.7 L (12.0-16.0) g/dL Hct 35.5 L (37-47) % RDW Std Deviation 47.5 H (36.4-46.3) fL RDW Coeff of Logan 15.5 H (11.5-14.5) % Lymph # (Auto) 3.44 H (1.2-3.4) K/uL [place] # (Auto) 0.64 H (0.11-0.59) K/uL Absolute Nucleated RBC 0.05 H (0-0) K/uL ABG pCO2 (35-46) mmHg ABG pO2 (80-95) mm/Hg ABG O2 Saturation (90-95) % Potassium 2.9 L D 3.0 L (3.5-5.1) mmol/L BUN 21 H 23 H (7-18) mg/dl BUN/Creatinine Ratio 20.3 H (10-20) Glucose 106 H 146 H (70-99) mg/dl 08/01/18 Range/Units 15:46 RBC (4.2-5.4) M/uL Hgb (12.0-16.0) g/dL Hct (37-47) % RDW Std Deviation (36.4-46.3) fL RDW Coeff of Logan (11.5-14.5) % Lymph # (Auto) (1.2-3.4) K/uL [place] # (Auto) (0.11-0.59) K/uL Absolute Nucleated RBC (0-0) K/uL ABG pCO2 29 L (35-46) mmHg ABG pO2 109 H (80-95) mm/Hg ABG O2 Saturation 98.3 H (90-95) % Potassium (3.5-5.1) mmol/L BUN (7-18) mg/dl BUN/Creatinine Ratio (10-20) Glucose (70-99) mg/dl Diagnostic Findings CHEST CT WITH CONTRAST CT DOSE: 800.65 mGy.cm HISTORY: Acute right-sided chest pain with pericardial effusion evaluate pericardial effusion , right chest pain TECHNIQUE: Multiaxial CT images of the chest were performed following the intravenous administration of contrast. A dose lowering technique was utilized adhering to the principles of ALARA. COMPARISON: Chest radiographs 07/03/2018, chest CT 12/11/2006. FINDINGS: Marked multichamber cardiac enlargement. Single lead left subclavian pacer/AICD is noted with lead overlying the right ventricle. Moderate sized pericardial effusion measures up to 2.2 cm posteriorly. Pericardial fluid appears simple. No associated pericardial enhancement. Thoracic aorta is normal in course and caliber without aneurysm or dissection. Bovine aortic arch. Patency of the imaged great vessels. The opacified pulmonary arterial tree is unremarkable and demonstrates no focal filling defects to suggest pulmonary thromboembolic disease. Trace left pleural effusion. No pneumothorax. Bibasilar subsegmental linear consolidative and groundglass opacities are suggestive of atelectasis. No overt pulmonary edema. Subpleural reticulation about the anterior segment right upper lobe suggest scarring. Soft tissue nodule adjacent stranding measuring 8 x 3 mm abuts a segmental pulmonary artery about the right upper lobe suggestive of a lymph node on image 101 series 4. Mild bilateral bronchial wall thickening. Ill- defined groundglass opacities of the perihilar right upper lobe. 2 mm solid nodule of the right upper lobe also noted. Liver appears enlarged with suggested hepatic steatosis. No acute process of the imaged upper abdomen. Soft tissues appear unremarkable. Bones appear to be intact. IMPRESSION: 1. Marked multichamber cardiac enlargement with moderate sized simple perica rdial effusion. 2. Trace left pleural effusion with linear consolidative bibasilar opacities suggestive of atelectasis. 3. Subsegmental ill-defined groundglass opacities of the perihilar right upper l obe suggests scarring/atelectasis versus mild pneumonitis. 4. Indeterminate 8 x 3 mm nodular density of the right upper lobe suggests a lymph node or pulmonary nodule. 6 month follow-up chest CT recommended to further evaluate. Please refer to below summary of Fleischner criteria recommendations for follow- up of incidental CT nodules (Neil Dooley, Guidelines for management of small pulmonary nodules detected on CT scans: A statement from the Fleischner Society, Radiology 237: [id number].) SOLID NODULES Multiple nodules size: <6 mm * Low risk patients: no routine follow-up * high risk patients: optional CT at 12 months Multiple nodules size: 6-8 mm * Low risk patients: follow-up at 3-6 months, then consider further follow-up at 18-24 months * high risk patients: follow-up at 3-6 months, then at 18-24 months if no change Multiple nodules size: >8 mm * Low risk patients: follow-up at 3-6 months, then consider further follow-up at 18-24 months * high risk patients: follow-up at 3-6 months, then at 18-24 months if no change Note: newly detected indeterminate nodule in persons 35 years of age or older. * Low risk patients: minimal or absent history of smoking and/or other known risk factors * high risk patients: history of smoking or of other known risk factors (e.g. first degree relative with lung cancer, or exposure to asbestos, radon, uranium) * if a nodule up to 8 mm is partly solid or is ground glass further follow-up is required after 24 months to exclude possible slow growing adenocarcinoma (ANGLE) The above report was generated using voice recognition software. It may contain grammatical, syntax or spelling errors. Electronically signed by: Bryan Ortega M.D. 07/04/2018 8:58 PM XR chest 1V portable CLINICAL HISTORY: Chest Pain dyspnea COMPARISON STUDY: 07/03/2018 FINDINGS: Moderate stable cardiomegaly. Stable small left effusion. Mild prominence of pulmonary vasculature. Unipolar cardiac pacemaker/fibrillator. IMPRESSION: Cardiomegaly. Pulmonary vascular congestion. Electronically signed by: Osmar Kapoor M.D. 07/31/2018 10:13 AM (1) Diabetes Diabetes mellitus complication status: without complication Diabetes mellitus medical terminologist insulin use: without medical terminologist use Diabetes mellitus type: type 2 Qualified Code(s): E11.9 - Type 2 diabetes mellitus without complications (2) Schizoaffective disorder Schizoaffective disorder type: other Qualified Code(s): F25.8 - Other schizoaffective disorders
[2018-08-01] MEDS: ACETAMINOPHEN 325 MG TAB PO PRN (16:13)
[2018-08-01] MEDS ORDERED: FUROSEMIDE 80 MG in SYRINGE 0 ML IV ONE (16:30)
[2018-08-01] MEDS: TRAZODONE HCL 100 MG TAB PO SCH (20:25)
[2018-08-01] MEDS: QUETIAPINE FUMARATE 300 MG TABLET PO SCH (20:25)
[2018-08-02 06:50] LABS: Albumin Globulin Ratio 0.8 (0.9-2); Albumin Level 3.5 gm/dl (3.4-5.0); BUN Creatinine Ratio 14.1 (10-20); Bilirubin,Total 3.3 mg/dl (0.2-1); C Reactive Protein 4.25 mg/dl (0-0.29); Calcium 9.1 mg/dl (8.5-10.1); Creatinine Clr Calc Pharmacy 29.4 ml/min; Est GFR (African American) 21.5; Est GFR (Non-African American) 18.5; Globulin 4.6 gm/dl (2.5-4.0); Potassium 6.1 mmol/L (3.5-5.1); Total Protein 8.1 gm/dl (6.4-8.2)
[2018-08-02] MEDS: ATORVASTATIN 10 MG TAB PO SCH (08:58)
[2018-08-02] MEDS: DOCUSATE SODIUM 100 MG CAP PO SCH ×2 (08:58→20:29)
[2018-08-02] MEDS: PANTOprazole 40 MG TAB PO SCH (08:58)
[2018-08-02] MEDS: COLCHICINE 0.6 MG TAB PO SCH (08:58)
[2018-08-02] MEDS: GABAPENTIN 600 MG TAB PO SCH (08:58)
[2018-08-02] MEDS: ENOXAPARIN INJ 120 MG/0.8 ML SYR SC SCH (08:59)
[2018-08-02] MEDS: INSULIN GLARGINE SOLOSTAR 100 UNITS/ML 3 ML PEN SC SCH (09:06)
[2018-08-02] MEDS: INSULIN ASPART 100 UNITS/ML 3 ML PEN SC SCH ×4 (09:06→20:27)
[2018-08-02] MEDS ORDERED: CALCIUM GLUCONATE 10% 1,000 MG in SODIUM CHLORIDE 0.9% 50 ML IV STA (09:21)
[2018-08-02] MEDS ORDERED: NovoLIN-R INSULIN PER UNIT CHARGE ONE (09:40)
[2018-08-02] MEDS ORDERED: INSULIN HUMAN REGULAR PER UNIT 10 UNITS in SYRINGE 9.9 ML IV STA (09:41)
[2018-08-02] MEDS ORDERED: ALBUTEROL 0.083% NEBU SOLN 3 ML VIAL NEB STA (09:45)
[2018-08-02] MEDS ORDERED: DEXTROSE 50% 50 ML SYRINGE IV STA ×2 (09:52→10:17)
[2018-08-02] MEDS ORDERED: LACTULOSE SYRUP 30 GM/45 ML UDP PO STA (09:54)
[2018-08-02] MEDS ORDERED: SODIUM POLYSTYRENE SULFONATE 15G/60ML SUSP PO STA (09:59)
[2018-08-02] MEDS ORDERED: BUMETANIDE 4 MG in SYRINGE 0 ML IV ONE (10:00)
[2018-08-02] MEDS: QUETIAPINE FUMARATE 25 MG TABLET PO SCH (10:09)
[2018-08-02] MEDS: METOPROLOL SUCC 50MG EXT REL TAB PO SCH ×2 (10:10→12:49)
[2018-08-02 10:15] LABS: BUN Creatinine Ratio 16.9 (10-20); Calcium 9.3 mg/dl (8.5-10.1); Creatinine Clr Calc Pharmacy 32.5 ml/min; Est GFR (African American) 24.2; Est GFR (Non-African American) 20.9
--- NOTE | 2018-08-02 10:50 | Critical Care Consultation ---
Date of Consultation August 02, 2018 Assessment & Plan (1) Shortness of breath: (2) Atrial fibrillation with RVR: (3) Acute on chronic systolic heart failure: Diuretics held by cardiology today And ICM with left ventricular ejection fraction of 25-30% (4) Pericardial effusion: Previous treated with colchicine No chest pain or tightness No evidence of tamponade on echocardiogram Persistent (5) Diabetes: Hemoglobin A1c 04/2018 was 6 Metformin held while inpatient Continue with Lantus twice daily Continue with NovoLog sliding scale insulin (6) Schizoaffective disorder: Patient on Seroquel and trazodone Patient appears stable Holding meds secondary to prolonged QTC (7) Electrolyte imbalance: Hyperkalemia (8) DVT prophylaxis: Heparin 5000 3 times daily Supervising Physician Co-Signing Physician Notes I had an extensive discussion with the patient regarding consent for hemodialysis catheter placement, central venous access, arterial line placement, elective endotracheal intubation mechanical ventilation, bronchoscopy, blood transfusion and pulmonary artery catheter placement. Patient desires to be full code and agrees to the following procedures if it means improving her health and saving her life. Reason Critically Ill: 57-year-old female with nonischemic cardiomyopathy with new onset acute renal failure and hyperkalemia PLAN: Neuro: Schizoaffective disorder -Seroquel, Benadryl, Vistaril -This is a difficult situation as the patient has a prolonged QTC acute renal failure and was somnolent this morning -Currently holding her medications Resp: Dyspnea -Likely secondary to volume overload related to acute renal failure CV: Nonischemic cardiomyopathy -Possible PA catheter placement later today to better elucidate true hemodynamic status Atrial fibrillation -Previously anticoagulated with Xarelto -On digoxin -Checking level, holding any additional doses Fluids/Renal: Hyperkalemia Acute renal failure -Patient received calcium gluconate, IV insulin, albuterol, dextrose, Kayexalate -Repeat K pending -Patient received 4 mg of Bumex -Producing 100 mL's of urine per hour ID: Monitor for infectious sources -UA unremarkable for infection GI/Nutrition: N.p.o. pending possible procedure Heme: Anemia -Patient consented for blood products should she need them DVT prophylaxis: Heparin 5000 3 times daily -Off Xarelto at this time Endocrine: ICU hyperglycemia protocol -Currently hyperglycemic secondary to treatment of hyperkalemia Vascular access: Peripheral IVs -Patient is consented for PA catheter, temporary hemodialysis catheter, arterial line, central venous access Code Status: Full -Patient desires her sister to be healthcare surrogate and not her adult children I have personally spent 85 minutes of critical care time in the direct management of this patient. This is a life/limb threatening event. This includes time spent evaluating patient, direct bedside care, chart review, placing orders, interpretation of diagnostic studies, discussion with consultants, patient, and/or family members regarding treatment decisions, as well as other required patient management activities. This time is exclusive of all separately billable procedures, and teaching time and separate from and in addition to any other critical care service time. History of Present Illness Attending Physician: Dashawn Mccall Patient is a 57-year-old female with a history of nonischemic cardiomyopathy who was admitted yesterday for worsening exertional dyspnea was felt to be in volume overload who had a Uribe catheter placed approximately 2 PM who has not produced urine and was found to be in severe acute renal failure with hyperkalemia. Allergies Allergy/AdvReac Type Severity Reaction Status Date / Time fentanyl Allergy Mild RASH,ITCHIN Verified 07/31/18 09:49 G Home Medications Home Medications Medication Instructions Recorded Confirmed Type atorvastatin 10 mg PO DAILY 05/31/18 07/31/18 History digoxin 0.125 mg PO DAILY 05/31/18 07/31/18 History diphenhydramine HCl [Benadryl] 25 mg PO QAM 05/31/18 07/31/18 History docusate sodium [Colace] 100 mg PO BID 05/31/18 07/31/18 History gabapentin 600 mg PO BID 05/31/18 07/31/18 History hydroxyzine pamoate [Vistaril] 50 mg PO QPM 05/31/18 07/31/18 History metformin 500 mg PO BID 05/31/18 07/31/18 History omeprazole 20 mg PO DAILY 05/31/18 07/31/18 History quetiapine [Seroquel] 50 mg PO DAILY 05/31/18 07/31/18 History quetiapine [Seroquel] 300 mg PO HS 05/31/18 07/31/18 History rivaroxaban [Xarelto] 20 mg PO DAILY 05/31/18 07/31/18 History albuterol sulfate 2 inha INH QID PRN #6.7 gm 06/12/18 07/31/18 Rx potassium chloride 20 meq PO DAILY 06/28/18 07/31/18 History colchicine [Colcrys] 0.6 mg PO BID #60 tab 07/06/18 07/31/18 Rx metoprolol succinate [Toprol XL] 50 mg PO DAILY #30 tab 07/06/18 07/31/18 Rx Lasix 40 mg PO BID 07/31/18 07/31/18 History metoprolol succinate 25 mg PO DAILY 07/31/18 07/31/18 History trazodone 200 mg PO HS 07/31/18 07/31/18 History Patient History Medical History Asthma (Chronic) CHF (congestive heart failure) (Chronic) 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% per echo 06/06/18; non-obstructive CAD per cath 2006 HTN (hypertension) (Chronic) PTSD (post-traumatic stress disorder) (Chronic) Atrial fibrillation Diabetes type 2, controlled patient denies having diabetes, does not want further testing even though she is prescribed Metformin GERD (gastroesophageal reflux disease) Morbid obesity Pulmonary embolism 2013 while living in [place] Schizoaffective disorder Ventricular arrhythmia Surgical History Pacemaker (Chronic) AICD (automatic cardioverter/defibrillator) present S/P ORIF (open reduction internal fixation) fracture ankle, left S/P tubal ligation Family History Mother , in her 70s Lung cancer Breast cancer Congestive heart failure (CHF) Father No problems noted. Other Hypertension Social History Communication Ability: Effective Beliefs That Will Affect Care: None marital status: marital status details: 5 kids Current Living Situation: Alone Current Living Situation Comment: [facility] Res[facility] 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: previously worked as [employer] Other Information That Helps Us Care for You: No other: lives in [place] Feels Safe at Home: No Safety Concerns: Afraid for Self Smoking Status: Former smoker Hx Alcohol Use: No Hx Substance Use: No Physical Exam Vital Signs (Past 24 Hours): Last Vital Signs Temp 37.0 C 08/02/18 07:53 Pulse 66 08/02/18 08:48 Resp 18 08/02/18 07:53 BP 72/50 L 08/02/18 08:48 Pulse Ox 96 08/02/18 07:53 General: Alert. nontoxic. 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
--- NOTE | 2018-08-02 10:54 | Nephrology Consultation ---
Date of Consultation August 02, 2018 Assessment & Plan (1) Acute kidney injury: 57-year-old female with severe cardiomyopathy, admitted to the hospital with shortness of breath. No known history of chronic kidney disease, overnight renal function rapidly worsened, developed acute kidney injury and hyperkalemia. She is mostly anuric over last 12 hours. Her blood pressure has been low since yesterday. Acute kidney injury most likely secondary to hemodynamically mediated ATN with severe hypertension in the setting cardiomyopathy and low ejection fraction. Can't exclude possibility for postrenal obstruction. Clinically she does not look to be volume overloaded. Unclear etiology for persistent shortness of breath, although she has low EF however wonder whether she has any pulmonary etiology including pneumonitis, chronic pulmonary embolism ( seems unlikely as she has been on anticoagulation), interstitial lung disease or others, --urinalysis stat, renal ultrasound --Kayexalate 15 grams p.o. x1 dose now, insulin and dextrose 50 --Bumex 4 milligram IV x1 dose --monitor urine output closely, repeat renal function and electrolyte in 2 hours after Bumex and Kayexalate --if no improvement in urine output and hyperkalemia worsen, may need emergency dialysis --agree with right heart catheterization for better assessment of volume status, if there is no sign of volume overload as also suggested from physical exam, will consider starting her on IV fluid with close monitoring and strongly recommend pulmonary consultation for further evaluation Will follow Thank you for allowing me to participate in your patient's care. It was a pleasure to see Grazyna (2) Hyperkalemia: (3) Severe mitral regurgitation: (4) Morbid obesity: (5) Diabetes: (6) Acute on chronic systolic heart failure: (7) Atrial fibrillation with RVR: History of Present Illness Reason for Consultation: Acute kidney injury, hyperkalemia. Attending Physician: Dashawn Mccall History of Present Illness Grazyna Carson is a 57-year-old female with past medical history significant for severe cardiomyopathy, hypertension, AFib admitted to the hospital with progressive SOB and AFib with RVR. Nephrology consult was requested as patient developed acute kidney injury and hyperkalemia. Electronic medical records including labs and imaging are reviewed in detail during patient's visit. Grazyna is a 57-year-old female with history of severe cardiomyopathy, EF 20-25 percent, atrial fibrillation, presented to the hospital with exertional shortness of breath. On admission she was found to be in AFib with RVR. At home she was on Lasix 40 milligram twice a day. She was short of breath diuretics was changed to IV. Diuretics dose was increased yesterday and she received Lasix 80 last night as she continued to have progressive shortness of breath. Chest x-ray showed some pulmonary vascular congestion. Denies recent NSAID use. Has not been on any antibiotic. Her blood pressure has been significantly low since this morning, currently her blood pressure 72/50. She has no known history of chronic kidney disease, baseline creatinine has been around 1.0. On admission renal function was normal, creatinine was 1.1 on 08/01/2018. She was found to have acute kidney injury and hyperkalemia on labs this morning creatinine rapidly increased to 2.6, potassium 6.1. She has been anuric over last 12 hours, despite getting Lasix 80 IV last night. No recent urinalysis or renal ultrasound available at this time. She has history of pulmonary embolism in 2013. Remote history of smoking. No known history any pulmonary issue before. She had CT chest on 07/04/18 showing marked multichamber cardiac enlargement with moderate sized simple pericardial effusion. Also had Trace left pleural effusion and atelectasis. There was subsegmental ill-defined groundglass opacities of the perihilar right upper lobe suggests scarring/atelectasis versus mild pneumonitis. Also found to have Indeterminate 8 x 3 mm nodular density of the right upper lobe suggests a lymph node or pulmonary nodule. She continues to have shortness of breath, denies any chest pain.c Allergies Allergy/AdvReac Type Severity Reaction Status Date / Time fentanyl Allergy Mild RASH,ITCHIN Verified 07/31/18 09:49 G Home Medications Home Medications Medication Instructions Recorded Confirmed Type atorvastatin 10 mg PO DAILY 05/31/18 07/31/18 History digoxin 0.125 mg PO DAILY 05/31/18 07/31/18 History diphenhydramine HCl [Benadryl] 25 mg PO QAM 05/31/18 07/31/18 History docusate sodium [Colace] 100 mg PO BID 05/31/18 07/31/18 History gabapentin 600 mg PO BID 05/31/18 07/31/18 History hydroxyzine pamoate [Vistaril] 50 mg PO QPM 05/31/18 07/31/18 History metformin 500 mg PO BID 05/31/18 07/31/18 History omeprazole 20 mg PO DAILY 05/31/18 07/31/18 History quetiapine [Seroquel] 50 mg PO DAILY 05/31/18 07/31/18 History quetiapine [Seroquel] 300 mg PO HS 05/31/18 07/31/18 History rivaroxaban [Xarelto] 20 mg PO DAILY 05/31/18 07/31/18 History albuterol sulfate 2 inha INH QID PRN #6.7 gm 06/12/18 07/31/18 Rx potassium chloride 20 meq PO DAILY 06/28/18 07/31/18 History colchicine [Colcrys] 0.6 mg PO BID #60 tab 07/06/18 07/31/18 Rx metoprolol succinate [Toprol XL] 50 mg PO DAILY #30 tab 07/06/18 07/31/18 Rx Lasix 40 mg PO BID 07/31/18 07/31/18 History metoprolol succinate 25 mg PO DAILY 07/31/18 07/31/18 History trazodone 200 mg PO HS 07/31/18 07/31/18 History Patient History Medical History Asthma (Chronic) CHF (congestive heart failure) (Chronic) 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% per echo 06/06/18; non-obstructive CAD per cath 2006 HTN (hypertension) (Chronic) PTSD (post-traumatic stress disorder) (Chronic) Atrial fibrillation Diabetes type 2, controlled patient denies having diabetes, does not want further testing even though she is prescribed Metformin GERD (gastroesophageal reflux disease) Morbid obesity Pulmonary embolism 2013 while living in [place] Schizoaffective disorder Ventricular arrhythmia Surgical History Pacemaker (Chronic) AICD (automatic cardioverter/defibrillator) present S/P ORIF (open reduction internal fixation) fracture ankle, left S/P tubal ligation Family History Mother , in her 70s Lung cancer Breast cancer Congestive heart failure (CHF) Father No problems noted. 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 Physical Exam Vital Signs (Past 24 Hours): Last Vital Signs Temp 37.0 C 08/02/18 07:53 Pulse 66 08/02/18 08:48 Resp 18 08/02/18 07:53 BP 72/50 L 08/02/18 08:48 Pulse Ox 96 08/02/18 07:53 Physical Exam: GENERAL: Middle-aged female, AAA x 3, pleasant, healthy-appearing, not in any distress. HEENT: Atraumatic, normocephalic. NECK: Supple, no JVD, no carotid bruit appreciated. ENT: No sinus tenderness MOUTH and THROAT: Moist oral mucosa, RESPIRATORY: Rales bilaterally bases. CARDIOVASCULAR: S1, S2 normal, rate currently control, rhythm irregular. ABDOMEN: Soft, nontender, positive bowel sound. MUSCULOSKELETAL: No CVA tenderness. No joint swelling, erythema or tenderness. Normal range of motion. SKIN: No skin rash EXTREMITY: No lower extremity edema NEURO: No gross focal neurological deficit, speech fluent. PSYCHIATRY: Normal mood and judgment (1) Diabetes Diabetes mellitus complication status: without complication Diabetes mellitus long term care administrator insulin use: without long term care administrator use Diabetes mellitus type: type 2 Qualified Code(s): E11.9 - Type 2 diabetes mellitus without complications
[2018-08-02 11:06] LABS: Appearance Urine Turbid (Clear); Bilirubin Urine Negative (Negative); Blood Urine 3+ (Negative); Color Urine Yellow; Epithelial Cell Urine Auto >30 /lpf (0-5); Glucose Urine UA 2+ (Negative); Ketones Urine Negative (Negative); Leukocyte Esterase Urine 3+ (Negative); Nitrite Urine Negative (Negative); Protein Urine Negative (Negative); Specific Gravity Urine 1.013 (1.000-1.030); Urobilinogen Urine Negative (Negative)
--- NOTE | 2018-08-02 11:38 | Emergency Department Note ---
Entered by Flor Mas acting as a scribe for Giuseppe De Leon MD History of Present Illness General Chief complaint: Cardiac Assessment Stated complaint: RACING HEART, TROUBLE BREATHING Time Seen by Provider: 07/31/18 08:51 Source: patient Limitations: no limitations History of Present Illness Provider complaint: difficulty breathing Onset (ago): week(s) 1 Location: chest Maximum Pain Intensity: 0 Associated symptoms: + denies other symptoms (flu-like symptoms, black stool, swelling/pain in legs, black stools) and + shortness of breath; no chest pain and no fever/chills The patient is a 57 year old female who presents to the Emergency Room with complaints of difficulties breathing that worsened 1 week prior to arrival. The patient states that she has shortness of breath but denies any flu-like symptoms, cough, fevers, chest pain, swelling or pain in legs, or black stools. The patient states that she has felt more stressed lately. The patient states that she has a history of heart failure and states that it is controlled with medication that she takes regurarly. Home Medications Home Medications Medication Instructions Recorded Confirmed Type atorvastatin 10 mg PO DAILY 05/31/18 07/31/18 History digoxin 0.125 mg PO DAILY 05/31/18 07/31/18 History diphenhydramine HCl [Benadryl] 25 mg PO QAM 05/31/18 07/31/18 History docusate sodium [Colace] 100 mg PO BID 05/31/18 07/31/18 History gabapentin 600 mg PO BID 05/31/18 07/31/18 History hydroxyzine pamoate [Vistaril] 50 mg PO QPM 05/31/18 07/31/18 History metformin 500 mg PO BID 05/31/18 07/31/18 History omeprazole 20 mg PO DAILY 05/31/18 07/31/18 History quetiapine [Seroquel] 50 mg PO DAILY 05/31/18 07/31/18 History quetiapine [Seroquel] 300 mg PO HS 05/31/18 07/31/18 History rivaroxaban [Xarelto] 20 mg PO DAILY 05/31/18 07/31/18 History albuterol sulfate 2 inha INH QID PRN #6.7 gm 06/12/18 07/31/18 Rx potassium chloride 20 meq PO DAILY 06/28/18 07/31/18 History colchicine [Colcrys] 0.6 mg PO BID #60 tab 07/06/18 07/31/18 Rx metoprolol succinate [Toprol XL] 50 mg PO DAILY #30 tab 07/06/18 07/31/18 Rx Lasix 40 mg PO BID 07/31/18 07/31/18 History metoprolol succinate 25 mg PO DAILY 07/31/18 07/31/18 History trazodone 200 mg PO HS 07/31/18 07/31/18 History Allergies Allergy/AdvReac Type Severity Reaction Status Date / Time fentanyl Allergy Mild RASH,ITCHIN Verified 07/31/18 09:49 G Past Med/Surg History Medical History Asthma (Chronic) CHF (congestive heart failure) (Chronic) 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% per echo 06/06/18; non-obstructive CAD per cath 2006 HTN (hypertension) (Chronic) PTSD (post-traumatic stress disorder) (Chronic) Atrial fibrillation Diabetes type 2, controlled patient denies having diabetes, does not want further testing even though she is prescribed Metformin GERD (gastroesophageal reflux disease) Morbid obesity Pulmonary embolism 2013 while living in [place] Schizoaffective disorder Ventricular arrhythmia Surgical History Pacemaker (Chronic) AICD (automatic cardioverter/defibrillator) present S/P ORIF (open reduction internal fixation) fracture ankle, left S/P tubal ligation Family History Mother , in her 70s Lung cancer Breast cancer Congestive heart failure (CHF) Father No problems noted. Other Hypertension Social History Communication Ability: Effective Beliefs That Will Affect Care: None marital status: marital status details: 5 kids Current Living Situation: Alone Current Living Situation Comment: [facility] [place] Resident 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: previously worked as [employer] Other Information That Helps Us Care for You: No other: lives in [place] Feels Safe at Home: No Safety Concerns: Afraid for Self Smoking Status: Former smoker Hx Alcohol Use: No Hx Substance Use: No Review of Systems See HPI for pertinent positives & negatives. and A total of 10 systems reviewed and were otherwise negative Physical Exam Vital Signs Vital Signs - 24 hr 08/01/18 11:46 08/01/18 15:29 08/01/18 15:49 Temperature 36.4 C L 36.4 C L Temperature Source Oral Oral Pulse Rate 128 H Pulse Rate [Left Finger] 130 H 128 H Pulse Rate from SpO2 Sensor Pulse Rhythm [Left Finger] Regular Regular Pulse Strength [Left Finger] Normal Normal Respiratory Rate 18 22 Respiratory Effort / Characteristics Non-Labored Spontaneous Non-Labored Spontaneous Respiratory Depth Normal Normal Respiratory Pattern Blood Pressure Blood Pressure [Left Arm] 103/47 L Blood Pressure [Right Arm] 102/65 Blood Pressure Mean Blood Pressure Mean [Left Arm] 65 Blood Pressure Mean [Right Arm] 77 Blood Pressure Position [Left Arm] Lying Blood Pressure Position [Right Arm] Lying Pulse Oximetry 98 100 Oxygen Delivery Method Nasal Cannula Nasal Cannula Oxygen Flow Rate 3 3 08/01/18 19:16 08/01/18 20:00 08/01/18 23:10 Temperature 36.3 C L 37.1 C Temperature Source Oral Oral Pulse Rate Pulse Rate [Left Finger] 95 H 117 H Pulse Rate from SpO2 Sensor Pulse Rhythm [Left Finger] Pulse Strength [Left Finger] Respiratory Rate 22 20 Respiratory Effort / Characteristics Non-Labored Spontaneous SOB on Exertion Respiratory Depth Normal Normal Respiratory Pattern Regular Blood Pressure Blood Pressure [Left Arm] Blood Pressure [Right Arm] 101/69 100/60 Blood Pressure Mean Blood Pressure Mean [Left Arm] Blood Pressure Mean [Right Arm] 79 73 Blood Pressure Position [Left Arm] Blood Pressure Position [Right Arm] Sitting Lying Pulse Oximetry 96 94 Oxygen Delivery Method Room Air Room Air Nasal Cannula Oxygen Flow Rate 3.0 08/02/18 04:00 08/02/18 07:53 08/02/18 08:00 Temperature 37.1 C 37.0 C Temperature Source Oral Oral Pulse Rate Pulse Rate [Left Finger] 127 H 100 H Pulse Rate from SpO2 Sensor Pulse Rhythm [Left Finger] Pulse Strength [Left Finger] Respiratory Rate 22 18 Respiratory Effort / Characteristics Non-Labored Spontaneous Respiratory Depth Normal Normal Normal Respiratory Pattern Regular Blood Pressure Blood Pressure [Left Arm] 96/55 L Blood Pressure [Right Arm] Blood Pressure Mean Blood Pressure Mean [Left Arm] 68 Blood Pressure Mean [Right Arm] Blood Pressure Position [Left Arm] Sitting Blood Pressure Position [Right Arm] Pulse Oximetry 94 96 Oxygen Delivery Method Room Air Room Air Room Air Oxygen Flow Rate 08/02/18 08:48 08/02/18 09:45 08/02/18 10:00 Temperature Temperature Source Pulse Rate 109 H Pulse Rate [Left Finger] 66 114 H Pulse Rate from SpO2 Sensor 106 H Pulse Rhythm [Left Finger] Pulse Strength [Left Finger] Respiratory Rate 20 18 Respiratory Effort / Characteristics Non-Labored Spontaneous Respiratory Depth Respiratory Pattern Blood Pressure Blood Pressure [Left Arm] Blood Pressure [Right Arm] 72/50 L Blood Pressure Mean Blood Pressure Mean [Left Arm] Blood Pressure Mean [Right Arm] 57 Blood Pressure Position [Left Arm] Blood Pressure Position [Right Arm] Sitting Pulse Oximetry 93 95 Oxygen Delivery Method Room Air Oxygen Flow Rate 08/02/18 10:09 08/02/18 10:32 08/02/18 11:01 Temperature Temperature Source Pulse Rate 115 H 111 H 120 H Pulse Rate [Left Finger] Pulse Rate from SpO2 Sensor 107 H 88 Pulse Rhythm [Left Finger] Pulse Strength [Left Finger] Respiratory Rate 22 22 23 Respiratory Effort / Characteristics Respiratory Depth Respiratory Pattern Blood Pressure 91/58 L 128/78 116/106 H Blood Pressure [Left Arm] Blood Pressure [Right Arm] Blood Pressure Mean 69 94 109 Blood Pressure Mean [Left Arm] Blood Pressure Mean [Right Arm] Blood Pressure Position [Left Arm] Blood Pressure Position [Right Arm] Pulse Oximetry 99 99 99 Oxygen Delivery Method Oxygen Flow Rate General: Non-ill appearing middle-aged female in no acute distress. The patient is wearing supplemental oxygen. HEENT: Normal cephalic atraumatic. Pupils are equal round and reactive to light. Extraocular movements are intact. Oropharynx is pink with moist mucous membranes. No swelling of the mouth lips or tongue. Neck: Supple with a midline trachea. No meningeal signs or stiffness, no JVD or bruits. No Stridor. Chest: Clear to auscultation bilaterally. No wheezes or rhonchi. No increased work of breathing. Heart: Tachycardic rate andrhythm. Abdomen: Soft nontender, nondistended without rebound guarding or rigidity. Extremities: No cyanosis clubbing or edema. No calf tenderness or assymetry Spine/Back. Non tender to palpation. No CVA tenderness Skin: Good turgor without rashes. Neurologic exam: Cranial nerves two through 12 are intact. Motor and sensation are intact and symmetrical throughout. Course 0852: Past medical records reviewed. The patient was evaluated in room B7, and a complete history and physical examination were performed. 0943: I discussed the patient's case with Dr. [facility] who states that he will come and evaluate the patient. 1050: [facility] will [facility] the patient for further hospitalization. Consultations Consultation #1: Dr. Gong [facility] Time: 09:43 [facility]ation #2[facility] Time: 10:50 Administered Medications Acetaminophen (Tylenol) 650 mg PO Q4H PRN PRN Reason: Pain or Fever Stop: 08/30/18 11:39 Last Admin: 08/01/18 16:13 Dose: 650 mg Documented by: [id number] Admin: 07/31/18 19:42 Dose: 650 mg Documented by: [id number] Albuterol (Ventolin Hfa) 1 - 2 puffs INH QID PRN PRN Reason: shortness of breath or wheezing Stop: 08/30/18 11:39 Last Admin: 08/01/18 09:59 Dose: 2 puffs Documented by: [id number] Admin: 07/31/18 16:38 Dose: 2 puffs Documented by: [id number] Atorvastatin Calcium (Lipitor) 10 mg PO DAILY [facility] Stop: 08/31/18 08:59 Last Admin: 08/02/18 08:58 Dose: 10 mg Documented by: [id number] Admin: 08/01/18 08:11 Dose: 10 mg Documented by: [id number] Dextrose (Dextrose 50%) 25 - 50 ml IV UD PRN; Protocol PRN Reason: Hypoglycemia Protocol Stop: 08/30/18 11:39 Last Admin: 08/02/18 07:23 Dose: 50 ml Documented by: [id number] Docusate Sodium (Colace) 100 mg PO BID VICTOR M Stop: 08/30/18 20:59 Last Admin: 08/02/18 08:58 Dose: 100 mg Documented by: [id number] Admin: 08/01/18 20:18 Dose: Not Given Documented by: [id number] Admin: 08/01/18 08:11 Dose: 100 mg Documented by: [id number] Admin: 07/31/18 22:21 Dose: 100 mg Documented by: [id number] Enoxaparin Sodium (Lovenox) 111 mg 1 mg/kg (110 mg) SC Q12H VICTOR M Stop: 08/30/18 21:29 Last Admin: 08/02/18 08:59 Dose: 111 mg Documented by: [id number] Admin: 08/01/18 20:25 Dose: 111 mg Documented by: [id number] Admin: 08/01/18 08:11 Dose: 111 mg Documented by: [id number] Admin: 07/31/18 22:23 Dose: Not Given Documented by: [id number] Gabapentin (Neurontin) 600 mg PO BID VICTOR M Stop: 08/30/18 20:59 Last Admin: 08/02/18 08:58 Dose: 600 mg Documented by: [id number] Admin: 08/01/18 20:25 Dose: 600 mg Documented by: [id number] Admin: 08/01/18 08:11 Dose: 600 mg Documented by: [id number] Admin: 07/31/18 22:21 Dose: 600 mg Documented by: [id number] Hydroxyzine HCl (Vistaril) 50 mg PO QPM VICTOR M Stop: 08/30/18 20:59 Last Admin: 08/01/18 20:25 Dose: 50 mg Documented by: [id number] Admin: 07/31/18 22:22 Dose: 50 mg Documented by: [id number] Insulin Aspart (Novolog Flexpen) 0 units SC ACHS VICTOR M Stop: 08/30/18 11:39 Last Admin: 08/02/18 09:06 Dose: Not Given Documented by: [id number] Cosigned by: [id number] Admin: 08/01/18 20:11 Dose: Not Given Documented by: [id number] Admin: 08/01/18 16:00 Dose: Not Given Documented by: [id number] Admin: 08/01/18 10:49 Dose: Not Given Documented by: [id number] Admin: 08/01/18 07:48 Dose: Not Given Documented by: [id number] Admin: 07/31/18 19:39 Dose: Not Given Documented by: [id number] Admin: 07/31/18 16:16 Dose: Not Given Documented by: [id number] Admin: 07/31/18 12:52 Dose: Not Given Documented by: [id number] Insulin Glargine (Lantus Solostar Pen) 8 units SC Q12 VICTOR M Stop: 08/30/18 11:39 Last Admin: 08/02/18 09:06 Dose: Not Given Documented by: [id number] Cosigned by: [id number] Admin: 08/01/18 20:11 Dose: Not Given Documented by: [id number] Admin: 08/01/18 07:48 Dose: Not Given Documented by: [id number] Admin: 07/31/18 19:38 Dose: Not Given Documented by: [id number] Admin: 07/31/18 12:52 Dose: Not Given Documented by: [id number] Metoprolol Succinate (Toprol Xl) 50 mg PO DAILY [facility] Stop: 08/30/18 11:39 Last Admin: 08/02/18 10:10 Dose: Not Given Documented by: [id number] Admin: 08/01/18 08:12 Dose: 50 mg Documented by: [id number] Admin: 07/31/18 12:51 Dose: 50 mg Documented by: [id number] Metoprolol Succinate (Toprol Xl) 50 mg PO DAILY@1200 VICTOR M; Protocol Stop: 08/31/18 11:59 Last Admin: 08/01/18 11:41 Dose: 50 mg Documented by: [id number] Pantoprazole Sodium (Protonix) 40 mg PO DAILY [facility] Stop: 08/31/18 08:59 Last Admin: 08/02/18 08:58 Dose: 40 mg Documented by: [id number] Admin: 08/01/18 08:12 Dose: 40 mg Documented by: [id number] Quetiapine Fumarate (Seroquel) 50 mg PO DAILY [facility] Stop: 08/31/18 08:59 Last Admin: 08/02/18 10:09 Dose: Not Given Documented by: [id number] Admin: 08/01/18 08:11 Dose: 50 mg Documented by: [id number] Quetiapine Fumarate (Seroquel) 300 mg PO [facility] Stop: 08/30/18 20:59 Last Admin: 08/01/18 20:25 Dose: 300 mg Documented by: [id number] Admin: 07/31/18 22:22 Dose: 300 mg Documented by: [id number] Trazodone HCl (Desyrel) 200 mg PO [facility] Stop: 08/30/18 20:59 Last Admin: 08/01/18 20:25 Dose: 200 mg Documented by: [id number] Admin: 07/31/18 22:21 Dose: 200 mg Documented by: [id number] Discontinued Medications Albuterol (Ventolin 0.083% 2.5mg/3ml) 20 mg NEB NOW STA Stop: 08/02/18 09:46 Last Admin: 08/02/18 11:25 Dose: 20 mg Documented by: [id number] Colchicine (Colcrys) 0.6 mg PO BID [facility] Stop: 08/30/18 20:59 Last Admin: 08/02/18 08:58 Dose: 0.6 mg Documented by: [id number] Admin: 08/01/18 20:25 Dose: 0.6 mg Documented by: [id number] Admin: 08/01/18 08:12 Dose: 0.6 mg Documented by: [id number] Admin: 07/31/18 22:22 Dose: 0.6 mg Documented by: [id number] Dextrose (Dextrose 50%) 50 ml IV NOW [facility] [place] Stop: 08/02/18 09:53 Last Admin: 08/02/18 10:11 Dose: 50 ml Documented by: [id number] Dextrose (Dextrose 50%) 50 ml IV NOW [facility] Stop: 08/02/18 10:18 Last Admin: 08/02/18 10:21 Dose: 50 ml Documented by: [id number] Digoxin (Lanoxin) 0.25 mg PO NOW ONE Stop: 07/31/18 11:41 Last Admin: 07/31/18 12:51 Dose: 0.25 mg Documented by: [id number] Digoxin (Lanoxin) 0.125 mg PO DAILY@1600 [facility] Stop: 08/30/18 15:59 Last Admin: 08/01/18 15:49 Dose: 0.125 mg Documented by: [id number] Admin: 07/31/18 15:50 Dose: Not Given Documented by: [id number] Diphenhydramine HCl (Benadryl Capsule) 25 mg PO QAM [facility] Stop: 08/31/18 08:59 Last Admin: 08/02/18 11:06 Dose: Not Given Documented by: [id number] Admin: 08/01/18 08:12 Dose: 25 mg Documented by: [id number] Furosemide 40 mg/ Syringe 4 mls @ 4 mls/min IV ONE ONE Stop: 07/31/18 16:01 Last Admin: 07/31/18 16:16 Dose: 4 mls/min Documented by: [id number] Furosemide 60 mg/ Syringe 6 mls @ 4 mls/min IV ONE ONE Stop: 07/31/18 21:31 Last Admin: 07/31/18 22:20 Dose: 4 mls/min Documented by: [id number] Furosemide 80 mg/ Syringe 8 mls @ 4 mls/min IV ONE ONE Stop: 08/01/18 16:31 Last Admin: 08/01/18 16:54 Dose: 4 mls/min Documented by: [id number] Calcium Gluconate 1,000 mg/ (Sodium Chloride) 60 mls @ 240 mls/hr IV NOW STA Stop: 08/02/18 09:35 Last Infusion: 08/02/18 11:07 Dose: 0 mls/hr Documented by: [id number] Admin: 08/02/18 10:06 Dose: 240 mls/hr Documented by: [id number] Insulin Human Regular 10 units (/ Syringe) 10 mls @ 30 mls/min IV NOW STA Stop: 08/02/18 09:42 Last Admin: 08/02/18 10:14 Dose: 30 mls/min Documented by: [id number] Cosigned by: [id number] Bumetanide 4 mg/ Syringe 16 mls @ 4 mls/min IV NOW ONE Stop: 08/02/18 10:03 Last Admin: 08/02/18 10:17 Dose: 4 mls/min Documented by: [id number] Lactulose (Chronulac) 30 gm PO NOW STA Stop: 08/02/18 09:55 Last Admin: 08/02/18 11:06 Dose: Not Given Documented by: [id number] Menthol (Nice) 1 davy BUCCAL NOW STA Stop: 07/31/18 18:27 Last Admin: 07/31/18 18:37 Dose: 1 davy Documented by: [id number] Metoprolol Succinate (Toprol Xl) 25 mg PO DAILY@1200 VICTOR [facility] Stop: 08/30/18 11:59 Last Admin: 07/31/18 12:51 Dose: 25 mg Documented by: [id number] Metoprolol Tartrate (Lopressor) 3 mg IV NOW STA Stop: 07/31/18 09:41 Last Admin: 07/31/18 09:50 Dose: 3 mg Documented by: [id number] Metoprolol Tartrate (Lopressor) 5 mg IV NOW STA Stop: 07/31/18 10:23 Last Admin: 07/31/18 10:52 Dose: 5 mg Documented by: [id number] Ondansetron HCl (Zofran) 4 mg IV Q6H PRN PRN Reason: Nausea Stop: 03/27/19 11:39 Last Admin: 08/01/18 20:36 Dose: 4 mg Documented by: [id number] Potassium Chloride (Klor-Con M20) 40 meq PO NOW ONE Stop: 08/01/18 04:38 Last Admin: 08/01/18 05:02 Dose: 40 meq Documented by: [id number] Potassium Chloride (Klor-Con M20) 40 meq PO NOW STA Stop: 08/01/18 11:00 Last Admin: 08/01/18 11:26 Dose: 40 meq Documented by: [id number] Potassium Chloride (Klor-Con M20) 40 meq PO ONE ONE Stop: 08/01/18 13:01 Last Admin: 08/01/18 13:10 Dose: 40 meq Documented by: [id number] Potassium Chloride (Klor-Con M20) 40 meq PO ONE ONE Stop: 08/01/18 18:01 Last Admin: 08/01/18 17:58 Dose: 40 meq Documented by: [id number] Sodium Polystyrene Sulfonate (Kayexalate) 15 gm PO NOW STA Stop: 08/02/18 10:00 Last Admin: 08/02/18 10:17 Dose: 15 gm Documented by: [id number] Medical Decision Making Differential Diagnosis The patient is a 57 year old female who presents to the ED with respiratory difficulties. Differential diagnosis includes rapid atrial fibrillation, infection, CHF, electrolyte or metabolism abnormality. Medical Records Attestation: I reviewed the patient's medical records. Home Medications Current Medication List: was personally reviewed by me Laboratory Data Attestation: I reviewed the patient's lab results. Result diagrams: 08/01/18 03:30 08/02/18 09:50 Lab Results 07/31/18 07/31/18 07/31/18 Range/Units 08:46 08:46 08:46 WBC 10.96 H (4.8-10.8) K/uL RBC 4.62 (4.2-5.4) M/uL Hgb 13.0 (12.0-16.0) g/dL Hct 39.4 (37-47) % MCV 85.3 (80-100) fL MCH 28.1 (25-34) pg MCHC 33.0 (32-36) g/dL RDW Std Deviation 47.9 H (36.4-46.3) fL RDW Coeff of Logan 15.5 H (11.5-14.5) % Plt Count 299 (130-400) K/uL MPV 9.8 (7.4-10.4) fL Immature Gran % (Auto) 0.3 % Neut % (Auto) 67.1 % Lymph % (Auto) 24.2 % [place] % (Auto) 7.0 % Eos % (Auto) 0.9 % Baso % (Auto) 0.5 % Immature Gran # (Auto) 0.03 H (0.00-0.02) K/uL Neut # (Auto) 7.36 H (1.4-6.5) K/uL Lymph # (Auto) 2.65 (1.2-3.4) K/uL [place] # (Auto) 0.77 H (0.11-0.59) K/uL Eos # (Auto) 0.10 (0-0.5) K/uL Baso # (Auto) 0.05 (0-0.2) K/uL Absolute Nucleated RBC (0-0) K/uL Nucleated RBC % (auto) % ESR (0-21) mm/hr PT 13.3 H (9.0-12.0) Seconds INR 1.3 H (0.9-1.1) APTT 25.3 (21.0-31.0) Seconds PTT Ratio 0.9 ABG pH (7.35-7.45) ABG pCO2 (35-46) mmHg ABG pO2 (80-95) mm/Hg ABG HCO3 (19-24) mmol/L ABG O2 Saturation (90-95) % ABG Base Excess (-9-1.8) mEq/L John Test (Pos) Barometric Pressure mm/Hg Oxygen Given Sodium 139 (136-145) mmol/L Potassium 3.5 (3.5-5.1) mmol/L Chloride 99 (98-107) mmol/L Carbon Dioxide 28 (21-32) mmol/L Anion Gap 12.0 H (3-11) BUN 16 (7-18) mg/dl Creatinine 1.00 (0.6-1.2) mg/dl Est Cr Clr Drug Dosing Not Reportable Est GFR ( Amer) 72.9 Est GFR (Non-Af Amer) 62.9 BUN/Creatinine Ratio 16.5 (10-20) Glucose 121 H (70-99) mg/dl POC Glucose (70-99) Calcium 9.0 (8.5-10.1) mg/dl Phosphorus (2.5-4.9) mg/dl Magnesium (1.8-2.4) mg/dl Total Bilirubin 1.4 H (0.2-1) mg/dl Direct Bilirubin (0-0.2) mg/dl AST 15 (15-37) U/L ALT 15 (12-78) U/L Alkaline Phosphatase 98 (45-117) U/L POC Troponin I (0-0.045) ng/ml Troponin I (0-0.045) ng/ml C-Reactive Protein (0-0.29) mg/dl NT-Pro-B Natriuret Pep 3020 H (0-900) pg/ml Total Protein 8.1 (6.4-8.2) gm/dl Albumin 3.7 (3.4-5.0) gm/dl Globulin 4.4 H (2.5-4.0) gm/dl Albumin/Globulin Ratio 0.8 L (0.9-2) Lipase 49 L (73-393) U/L Urine Color Urine Appearance (Clear) Urine pH (4.5-7.5) Ur Specific [place] (1.000-1.030) Urine Protein (Negative) Urine Glucose (UA) (Negative) Urine Ketones (Negative) Urine Blood (Negative) Urine Nitrite (Negative) Urine Bilirubin (Negative) Urine Urobilinogen (Negative) Ur Leukocyte Esterase (Negative) Urine WBC (Auto) (0-5) /hpf U Epithel Cells (Auto) (0-5) /lpf Urine Bacteria (Auto) (Negative) Digoxin (0.8-2.0) ng/ml 07/31/18 07/31/18 07/31/18 Range/Units 08:46 08:46 09:09 WBC (4.8-10.8) K/uL RBC (4.2-5.4) M/uL Hgb (12.0-16.0) g/dL Hct (37-47) % MCV (80-100) fL MCH (25-34) pg MCHC (32-36) g/dL RDW Std Deviation (36.4-46.3) fL RDW Coeff of Logan (11.5-14.5) % Plt Count (130-400) K/uL MPV (7.4-10.4) fL Immature Gran % (Auto) % Neut % (Auto) % Lymph % (Auto) % [place] % (Auto) % Eos % (Auto) % Baso % (Auto) % Immature Gran # (Auto) (0.00-0.02) K/uL Neut # (Auto) (1.4-6.5) K/uL Lymph # (Auto) (1.2-3.4) K/uL [place] # (Auto) (0.11-0.59) K/uL Eos # (Auto) (0-0.5) K/uL Baso # (Auto) (0-0.2) K/uL Absolute Nucleated RBC (0-0) K/uL Nucleated RBC % (auto) % ESR 75 H (0-21) mm/hr PT (9.0-12.0) Seconds INR (0.9-1.1) APTT (21.0-31.0) Seconds PTT Ratio ABG pH (7.35-7.45) ABG pCO2 (35-46) mmHg ABG pO2 (80-95) mm/Hg ABG HCO3 (19-24) mmol/L ABG O2 Saturation (90-95) % ABG Base Excess (-9-1.8) mEq/L John Test (Pos) Barometric Pressure mm/Hg Oxygen Given Sodium (136-145) mmol/L Potassium (3.5-5.1) mmol/L Chloride (98-107) mmol/L Carbon Dioxide (21-32) mmol/L Anion Gap (3-11) BUN (7-18) mg/dl Creatinine (0.6-1.2) mg/dl Est Cr Clr Drug Dosing Est GFR ( Amer) Est GFR (Non-Af Amer) BUN/Creatinine Ratio (10-20) Glucose (70-99) mg/dl POC Glucose (70-99) Calcium (8.5-10.1) mg/dl Phosphorus (2.5-4.9) mg/dl Magnesium (1.8-2.4) mg/dl Total Bilirubin (0.2-1) mg/dl Direct Bilirubin (0-0.2) mg/dl AST (15-37) U/L ALT (12-78) U/L Alkaline Phosphatase (45-117) U/L POC Troponin I < 0.03 (0-0.045) ng/ml Troponin I (0-0.045) ng/ml C-Reactive Protein (0-0.29) mg/dl NT-Pro-B Natriuret Pep (0-900) pg/ml Total Protein (6.4-8.2) gm/dl Albumin (3.4-5.0) gm/dl Globulin (2.5-4.0) gm/dl Albumin/Globulin Ratio (0.9-2) Lipase (73-393) U/L Urine Color Urine Appearance (Clear) Urine pH (4.5-7.5) Ur Specific [place] (1.000-1.030) Urine Protein (Negative) Urine Glucose (UA) (Negative) Urine Ketones (Negative) Urine Blood (Negative) Urine Nitrite (Negative) Urine Bilirubin (Negative) Urine Urobilinogen (Negative) Ur Leukocyte Esterase (Negative) Urine WBC (Auto) (0-5) /hpf U Epithel Cells (Auto) (0-5) /lpf Urine Bacteria (Auto) (Negative) Digoxin 0.4 L (0.8-2.0) ng/ml 07/31/18 07/31/18 08/01/18 Range/Units 11:52 19:40 03:30 WBC (4.8-10.8) K/uL RBC (4.2-5.4) M/uL Hgb (12.0-16.0) g/dL Hct (37-47) % MCV (80-100) fL MCH (25-34) pg MCHC (32-36) g/dL RDW Std Deviation (36.4-46.3) fL RDW Coeff of Logan (11.5-14.5) % Plt Count (130-400) K/uL MPV (7.4-10.4) fL Immature Gran % (Auto) % Neut % (Auto) % Lymph % (Auto) % [place] % (Auto) % Eos % (Auto) % Baso % (Auto) % Immature Gran # (Auto) (0.00-0.02) K/uL Neut # (Auto) (1.4-6.5) K/uL Lymph # (Auto) (1.2-3.4) K/uL [place] # (Auto) (0.11-0.59) K/uL Eos # (Auto) (0-0.5) K/uL Baso # (Auto) (0-0.2) K/uL Absolute Nucleated RBC (0-0) K/uL Nucleated RBC % (auto) % ESR (0-21) mm/hr PT (9.0-12.0) Seconds INR (0.9-1.1) APTT (21.0-31.0) Seconds PTT Ratio ABG pH (7.35-7.45) ABG pCO2 (35-46) mmHg ABG pO2 (80-95) mm/Hg ABG HCO3 (19-24) mmol/L ABG O2 Saturation (90-95) % ABG Base Excess (-9-1.8) mEq/L John Test (Pos) Barometric Pressure mm/Hg Oxygen Given Sodium 139 (136-145) mmol/L Potassium 2.9 L D (3.5-5.1) mmol/L Chloride 99 (98-107) mmol/L Carbon Dioxide 31 (21-32) mmol/L Anion Gap 9.0 (3-11) BUN 21 H (7-18) mg/dl Creatinine 1.16 (0.6-1.2) mg/dl Est Cr Clr Drug Dosing 69.6 Est GFR ( Amer) 61.0 Est GFR (Non-Af Amer) 52.6 BUN/Creatinine Ratio 17.8 (10-20) Glucose 106 H (70-99) mg/dl POC Glucose (70-99) Calcium 8.6 (8.5-10.1) mg/dl Phosphorus 5.2 H (2.5-4.9) mg/dl Magnesium 2.2 (1.8-2.4) mg/dl Total Bilirubin (0.2-1) mg/dl Direct Bilirubin (0-0.2) mg/dl AST (15-37) U/L ALT (12-78) U/L Alkaline Phosphatase (45-117) U/L POC Troponin I (0-0.045) ng/ml Troponin I 0.026 0.030 0.031 (0-0.045) ng/ml C-Reactive Protein (0-0.29) mg/dl NT-Pro-B Natriuret Pep (0-900) pg/ml Total Protein (6.4-8.2) gm/dl Albumin (3.4-5.0) gm/dl Globulin (2.5-4.0) gm/dl Albumin/Globulin Ratio (0.9-2) Lipase (73-393) U/L Urine Color Urine Appearance (Clear) Urine pH (4.5-7.5) Ur Specific [place] (1.000-1.030) Urine Protein (Negative) Urine Glucose (UA) (Negative) Urine Ketones (Negative) Urine Blood (Negative) Urine Nitrite (Negative) Urine Bilirubin (Negative) Urine Urobilinogen (Negative) Ur Leukocyte Esterase (Negative) Urine WBC (Auto) (0-5) /hpf U Epithel Cells (Auto) (0-5) /lpf Urine Bacteria (Auto) (Negative) Digoxin (0.8-2.0) ng/ml 08/01/18 08/01/18 08/01/18 Range/Units 03:30 08:57 15:46 WBC 10.17 (4.8-10.8) K/uL RBC 4.18 L (4.2-5.4) M/uL Hgb 11.7 L (12.0-16.0) g/dL Hct 35.5 L (37-47) % MCV 84.9 (80-100) fL MCH 28.0 (25-34) pg MCHC 33.0 (32-36) g/dL RDW Std Deviation 47.5 H (36.4-46.3) fL RDW Coeff of Logan 15.5 H (11.5-14.5) % Plt Count 253 (130-400) K/uL MPV 9.5 (7.4-10.4) fL Immature Gran % (Auto) 0.1 % Neut % (Auto) 58.0 % Lymph % (Auto) 33.8 % [place] % (Auto) 6.3 % Eos % (Auto) 1.4 % Baso % (Auto) 0.4 % Immature Gran # (Auto) 0.01 (0.00-0.02) K/uL Neut # (Auto) 5.90 (1.4-6.5) K/uL Lymph # (Auto) 3.44 H (1.2-3.4) K/uL [place] # (Auto) 0.64 H (0.11-0.59) K/uL Eos # (Auto) 0.14 (0-0.5) K/uL Baso # (Auto) 0.04 (0-0.2) K/uL Absolute Nucleated RBC 0.05 H (0-0) K/uL Nucleated RBC % (auto) 0.5 % ESR (0-21) mm/hr PT (9.0-12.0) Seconds INR (0.9-1.1) APTT (21.0-31.0) Seconds PTT Ratio ABG pH 7.45 (7.35-7.45) ABG pCO2 29 L (35-46) mmHg ABG pO2 109 H (80-95) mm/Hg ABG HCO3 20 (19-24) mmol/L ABG O2 Saturation 98.3 H (90-95) % ABG Base Excess -3.2 (-9-1.8) mEq/L John Test Pos (Pos) Barometric Pressure 739.7 mm/Hg Oxygen Given 3 L Sodium 136 (136-145) mmol/L Potassium 3.0 L (3.5-5.1) mmol/L Chloride 99 (98-107) mmol/L Carbon Dioxide 30 (21-32) mmol/L Anion Gap 7.0 (3-11) BUN 23 H (7-18) mg/dl Creatinine 1.15 (0.6-1.2) mg/dl Est Cr Clr Drug Dosing 70.3 Est GFR ( Amer) 61.6 Est GFR (Non-Af Amer) 53.1 BUN/Creatinine Ratio 20.3 H (10-20) Glucose 146 H (70-99) mg/dl POC Glucose (70-99) Calcium 9.1 (8.5-10.1) mg/dl Phosphorus (2.5-4.9) mg/dl Magnesium (1.8-2.4) mg/dl Total Bilirubin (0.2-1) mg/dl Direct Bilirubin (0-0.2) mg/dl AST (15-37) U/L ALT (12-78) U/L Alkaline Phosphatase (45-117) U/L POC Troponin I (0-0.045) ng/ml Troponin I (0-0.045) ng/ml C-Reactive Protein (0-0.29) mg/dl NT-Pro-B Natriuret Pep (0-900) pg/ml Total Protein (6.4-8.2) gm/dl Albumin (3.4-5.0) gm/dl Globulin (2.5-4.0) gm/dl Albumin/Globulin Ratio (0.9-2) Lipase (73-393) U/L Urine Color Urine Appearance (Clear) Urine pH (4.5-7.5) Ur Specific [place] (1.000-1.030) Urine Protein (Negative) Urine Glucose (UA) (Negative) Urine Ketones (Negative) Urine Blood (Negative) Urine Nitrite (Negative) Urine Bilirubin (Negative) Urine Urobilinogen (Negative) Ur Leukocyte Esterase (Negative) Urine WBC (Auto) (0-5) /hpf U Epithel Cells (Auto) (0-5) /lpf Urine Bacteria (Auto) (Negative) Digoxin (0.8-2.0) ng/ml 08/02/18 08/02/18 08/02/18 Range/Units 05:33 06:53 07:12 WBC (4.8-10.8) K/uL RBC (4.2-5.4) M/uL Hgb (12.0-16.0) g/dL Hct (37-47) % MCV (80-100) fL MCH (25-34) pg MCHC (32-36) g/dL RDW Std Deviation (36.4-46.3) fL RDW Coeff of Logan (11.5-14.5) % Plt Count (130-400) K/uL MPV (7.4-10.4) fL Immature Gran % (Auto) % Neut % (Auto) % Lymph % (Auto) % [place] % (Auto) % Eos % (Auto) % Baso % (Auto) % Immature Gran # (Auto) (0.00-0.02) K/uL Neut # (Auto) (1.4-6.5) K/uL Lymph # (Auto) (1.2-3.4) K/uL [place] # (Auto) (0.11-0.59) K/uL Eos # (Auto) (0-0.5) K/uL Baso # (Auto) (0-0.2) K/uL Absolute Nucleated RBC (0-0) K/uL Nucleated RBC % (auto) % ESR (0-21) mm/hr PT (9.0-12.0) Seconds INR (0.9-1.1) APTT (21.0-31.0) Seconds PTT Ratio ABG pH (7.35-7.45) ABG pCO2 (35-46) mmHg ABG pO2 (80-95) mm/Hg ABG HCO3 (19-24) mmol/L ABG O2 Saturation (90-95) % ABG Base Excess (-9-1.8) mEq/L John Test (Pos) Barometric Pressure mm/Hg Oxygen Given Sodium 135 L (136-145) mmol/L Potassium 6.1 H* D (3.5-5.1) mmol/L Chloride 99 (98-107) mmol/L Carbon Dioxide 18 L (21-32) mmol/L Anion Gap 19.0 H (3-11) BUN 39 H D (7-18) mg/dl Creatinine 2.75 H D (0.6-1.2) mg/dl Est Cr Clr Drug Dosing 29.4 Est GFR ( Amer) 21.5 Est GFR (Non-Af Amer) 18.5 BUN/Creatinine Ratio 14.1 (10-20) Glucose 50 L* (70-99) mg/dl POC Glucose 50 L* 48 L* (70-99) Calcium 9.1 (8.5-10.1) mg/dl Phosphorus (2.5-4.9) mg/dl Magnesium (1.8-2.4) mg/dl Total Bilirubin 3.3 H D (0.2-1) mg/dl Direct Bilirubin 2.0 H (0-0.2) mg/dl AST 296 H (15-37) U/L ALT 109 H (12-78) U/L Alkaline Phosphatase 157 H (45-117) U/L POC Troponin I (0-0.045) ng/ml Troponin I (0-0.045) ng/ml C-Reactive Protein 4.25 H (0-0.29) mg/dl NT-Pro-B Natriuret Pep (0-900) pg/ml Total Protein 8.1 (6.4-8.2) gm/dl Albumin 3.5 (3.4-5.0) gm/dl Globulin 4.6 H (2.5-4.0) gm/dl Albumin/Globulin Ratio 0.8 L (0.9-2) Lipase (73-393) U/L Urine Color Urine Appearance (Clear) Urine pH (4.5-7.5) Ur Specific [place] (1.000-1.030) Urine Protein (Negative) Urine Glucose (UA) (Negative) Urine Ketones (Negative) Urine Blood (Negative) Urine Nitrite (Negative) Urine Bilirubin (Negative) Urine Urobilinogen (Negative) Ur Leukocyte Esterase (Negative) Urine WBC (Auto) (0-5) /hpf U Epithel Cells (Auto) (0-5) /lpf Urine Bacteria (Auto) (Negative) Digoxin (0.8-2.0) ng/ml 08/02/18 08/02/18 08/02/18 Range/Units 07:14 07:41 09:50 WBC (4.8-10.8) K/uL RBC (4.2-5.4) M/uL Hgb (12.0-16.0) g/dL Hct (37-47) % MCV (80-100) fL MCH (25-34) pg MCHC (32-36) g/dL RDW Std Deviation (36.4-46.3) fL RDW Coeff of Logan (11.5-14.5) % Plt Count (130-400) K/uL MPV (7.4-10.4) fL Immature Gran % (Auto) % Neut % (Auto) % Lymph % (Auto) % [place] % (Auto) % Eos % (Auto) % Baso % (Auto) % Immature Gran # (Auto) (0.00-0.02) K/uL Neut # (Auto) (1.4-6.5) K/uL Lymph # (Auto) (1.2-3.4) K/uL [place] # (Auto) (0.11-0.59) K/uL Eos # (Auto) (0-0.5) K/uL Baso # (Auto) (0-0.2) K/uL Absolute Nucleated RBC (0-0) K/uL Nucleated RBC % (auto) % ESR (0-21) mm/hr PT (9.0-12.0) Seconds INR (0.9-1.1) APTT (21.0-31.0) Seconds PTT Ratio ABG pH (7.35-7.45) ABG pCO2 (35-46) mmHg ABG pO2 (80-95) mm/Hg ABG HCO3 (19-24) mmol/L ABG O2 Saturation (90-95) % ABG Base Excess (-9-1.8) mEq/L John Test (Pos) Barometric Pressure mm/Hg Oxygen Given Sodium 134 L (136-145) mmol/L Potassium 6.0 H (3.5-5.1) mmol/L Chloride 99 (98-107) mmol/L Carbon Dioxide 20 L (21-32) mmol/L Anion Gap 16.0 H (3-11) BUN 42 H (7-18) mg/dl Creatinine 2.49 H (0.6-1.2) mg/dl Est Cr Clr Drug Dosing 32.5 Est GFR ( Amer) 24.2 Est GFR (Non-Af Amer) 20.9 BUN/Creatinine Ratio 16.9 (10-20) Glucose 139 H (70-99) mg/dl POC Glucose 49 L* 119 H (70-99) Calcium 9.3 (8.5-10.1) mg/dl Phosphorus (2.5-4.9) mg/dl Magnesium (1.8-2.4) mg/dl Total Bilirubin (0.2-1) mg/dl Direct Bilirubin (0-0.2) mg/dl AST (15-37) U/L ALT (12-78) U/L Alkaline Phosphatase (45-117) U/L POC Troponin I (0-0.045) ng/ml Troponin I (0-0.045) ng/ml C-Reactive Protein (0-0.29) mg/dl NT-Pro-B Natriuret Pep (0-900) pg/ml Total Protein (6.4-8.2) gm/dl Albumin (3.4-5.0) gm/dl Globulin (2.5-4.0) gm/dl Albumin/Globulin Ratio (0.9-2) Lipase (73-393) U/L Urine Color Urine Appearance (Clear) Urine pH (4.5-7.5) Ur Specific [place] (1.000-1.030) Urine Protein (Negative) Urine Glucose (UA) (Negative) Urine Ketones (Negative) Urine Blood (Negative) Urine Nitrite (Negative) Urine Bilirubin (Negative) Urine Urobilinogen (Negative) Ur Leukocyte Esterase (Negative) Urine WBC (Auto) (0-5) /hpf U Epithel Cells (Auto) (0-5) /lpf Urine Bacteria (Auto) (Negative) Digoxin (0.8-2.0) ng/ml 08/02/18 08/02/18 Range/Units 10:30 11:22 WBC (4.8-10.8) K/uL RBC (4.2-5.4) M/uL Hgb (12.0-16.0) g/dL Hct (37-47) % MCV (80-100) fL MCH (25-34) pg MCHC (32-36) g/dL RDW Std Deviation (36.4-46.3) fL RDW Coeff of [place] (11.5-14.5) % Plt Count (130-400) K/uL MPV (7.4-10.4) fL Immature Gran % (Auto) % Neut % (Auto) % Lymph % (Auto) % [place] % (Auto) % Eos % (Auto) % Baso % (Auto) % Immature Gran # (Auto) (0.00-0.02) K/uL Neut # (Auto) (1.4-6.5) K/uL Lymph # (Auto) (1.2-3.4) K/uL [place] # (Auto) (0.11-0.59) K/uL Eos # (Auto) (0-0.5) K/uL Baso # (Auto) (0-0.2) K/uL Absolute Nucleated RBC (0-0) K/uL Nucleated RBC % (auto) % ESR (0-21) mm/hr PT (9.0-12.0) Seconds INR (0.9-1.1) APTT (21.0-31.0) Seconds PTT Ratio ABG pH (7.35-7.45) ABG pCO2 (35-46) mmHg ABG pO2 (80-95) mm/Hg ABG HCO3 (19-24) mmol/L ABG O2 Saturation (90-95) % ABG Base Excess (-9-1.8) mEq/L John Test (Pos) Barometric Pressure mm/Hg Oxygen Given Sodium (136-145) mmol/L Potassium (3.5-5.1) mmol/L Chloride (98-107) mmol/L Carbon Dioxide (21-32) mmol/L Anion Gap (3-11) BUN (7-18) mg/dl Creatinine (0.6-1.2) mg/dl Est Cr Clr Drug Dosing Est GFR ( Amer) Est GFR (Non-Af Amer) BUN/Creatinine Ratio (10-20) Glucose (70-99) mg/dl POC Glucose 263 H (70-99) Calcium (8.5-10.1) mg/dl Phosphorus (2.5-4.9) mg/dl Magnesium (1.8-2.4) mg/dl Total Bilirubin (0.2-1) mg/dl Direct Bilirubin (0-0.2) mg/dl AST (15-37) U/L ALT (12-78) U/L Alkaline Phosphatase (45-117) U/L POC Troponin I (0-0.045) ng/ml Troponin I (0-0.045) ng/ml C-Reactive Protein (0-0.29) mg/dl NT-Pro-B Natriuret Pep (0-900) pg/ml Total Protein (6.4-8.2) gm/dl Albumin (3.4-5.0) gm/dl Globulin (2.5-4.0) gm/dl Albumin/Globulin Ratio (0.9-2) Lipase (73-393) U/L Urine Color Yellow Urine Appearance Turbid H (Clear) Urine pH 5.0 (4.5-7.5) Ur Specific [place] 1.013 (1.000-1.030) Urine Protein Negative (Negative) Urine Glucose (UA) 2+ H (Negative) Urine Ketones Negative (Negative) Urine Blood 3+ H (Negative) Urine Nitrite Negative (Negative) Urine Bilirubin Negative (Negative) Urine Urobilinogen Negative (Negative) Ur Leukocyte Esterase 3+ H (Negative) Urine WBC (Auto) 5-10 H (0-5) /hpf U Epithel Cells (Auto) >30 H (0-5) /lpf Urine Bacteria (Auto) Negative (Negative) Digoxin (0.8-2.0) ng/ml Imaging Data Radiologist's Impression: Radiology results as stated below per my review and the radiologist's interpretation: XR chest 1V portable CLINICAL HISTORY: Chest Pain dyspnea COMPARISON STUDY: 07/03/2018 FINDINGS: Moderate stable cardiomegaly. Stable small left effusion. Mild prominence of pulmonary vasculature. Unipolar cardiac pacemaker/fibrillator. IMPRESSION: Cardiomegaly. Pulmonary vascular congestion. The above report was generated using voice recognition software. It may contain grammatical, syntax or spelling errors. Electronically signed by: Osmar Kapoor M.D. 07/31/2018 10:13 AM ECG Data Attestation: I personally reviewed and interpreted this ECG as follows: Indication: SOB/dyspnea Rate (beats per minute): 165 Rhythm: atrial fibrillation (rapid) Findings: + nonspecific-ST abn Comparison ECG Date: from (07/03/17) Change: the following changes noted (the rate has increased) Blood Pressure Blood Pressure Findings: Elevated blood pressure Blood Pressure Disposition: Referred to patients primary care provider MDM Narrative This patient comes in as described above. She has had chest pain rapid heart rate and shortness of breath. She is frustrated that she has been having continued problems with A. fib. On exam she is complaining of feeling sweaty and is mildly diaphoretic however is afebrile and normotensive. She is tachycardic initially in the 150s. IV access established and blood work was obtained. Chest x-ray shows cardiomegaly but no overt CHF. EKG shows a rapid A. fib without any definite ischemic changes. She was given Lopressor 3 mg IV. This brought her heart rate down into the 120s. I gave her an additional Lopressor 5 mg IV. Her initial cardiac biomarkers are not elevated. she has nothing to suggest infection. I reviewed her chart and she does have a pericardial effusion and does have some cardiomegaly on chest x-ray. At this point clinically I do not feel she is in tamponade but I am concerned that this could be increasing and causing some of her symptoms potentially. I did call and talk to Dr. Pelayo, the on-call rate inserter on the phone, and he is going to see her in consultation. I often so have consulted Dr. Sanchez, the [facility] hospitalist and she is also going to admit the patient for further treatment rate control and cardiac evaluation. Impression & Plan Atrial fibrillation with RVR, Shortness of breath, Pericardial effusion, Diaphoresis Critical Care Time I have personally spent greater than 30 minutes of critical care time in the direct management of this patient. This includes bedside care, interpretation of diagnostic studies, and testing, discussion with consultants, patient, and family members, and other required patient management activities. This 30 minutes is in excess of all separately billable procedures. Critical Care Time: Yes Total Critical Care Time: 30 Discharge Plan Visit Data *Final* Discharge Date/Time: 07/31/18 11:15 Chief Complaint: Cardiac Assessment Stated Complaint: RACING HEART, TROUBLE BREATHING ED Provider: Giuseppe De Leon Discharge Problem: Atrial fibrillation with RVR, Shortness of breath, Pericardial effusion, Diaphoresis Patient Disposition: Admitted As Inpatient Discharge Instructions Interventions: ED Discharge Assessment Last Done: 07/31/18 11:15 The scribe's documentation has been prepared under my direction and personally reviewed by me in its entirety. I confirm that the note above accurately reflects all work, treatment, procedures, and medical decision making performed by me.
--- NOTE | 2018-08-02 11:57 | Ultrasound Report ---
US renal/blad retro comp HISTORY: Renal insufficiency ARF COMPARISON: None. FINDINGS: Right kidney: Maximum linear dimension 11.6 cm. No evidence for hydronephrosis. Normal corticomedulla ry differentiation and cortical thickness. Left kidney: Maximum linear dimension 11.3 cm. No hydronephrosis. Normal corticomedullary differenti ation and cortical thickness. Bladder: Uribe catheter is in position. The bladder is collapsed. IMPRESSION: Normal renal ultrasound. The above report was generated using voice recognition software. It may contain grammatical, syntax or spelling errors. Electronically signed by: Osmar Kapoor M.D. 08/02/2018 11:56 AM
[2018-08-02 12:07] LABS: Calcium Oxalate Crystals Urine Present (None Prsent)
[2018-08-02 12:08] LABS: Cast Urine Automated 0 /lpf (0-5); RBC Urine Automated >30 /hpf (0-4)
[2018-08-02 12:10] LABS: Bacteria Urine Automated 1+ (Negative)
[2018-08-02 12:16] LABS: Hematocrit (blood only) 36.3 % (37-47); Hemoglobin 12.1 g/dL (12.0-16.0); Immature Granulocytes # (auto) 0.07 K/uL (0.00-0.02); Immature Granulocytes % (auto) 0.5 %; Lymphocytes # (auto) 2.01 K/uL (1.2-3.4); Lymphocytes % (auto) 15.1 %; Mean Corpuscular Hgb Conc 33.3 g/dL (32-36); Mean Corpuscular Volume 87.5 fL (80-100); Monocytes # (auto) 0.67 K/uL (0.11-0.59); Neutrophils # (auto) 10.56 K/uL (1.4-6.5); Neutrophils % (auto) 79.4 %; Nucleated RBC # (auto) 0.17 K/uL (0-0); Nucleated RBC % (auto) 1.3 %; Platelet Count 242 K/uL (130-400); RDW Coefficient of Variation 15.6 % (11.5-14.5); RDW Standard Deviation 49.4 fL (36.4-46.3); Red Blood Count 4.15 M/uL (4.2-5.4); White Blood Count 13.31 K/uL (4.8-10.8)
[2018-08-02 12:17] LABS: Base Excess VBG -4.5 mEq/L; HCO3 VBG 23 mmol/L; Oxygen Saturation VBG < 60.0 %; PCO2 VBG 50 mmHg (38-50); PO2 VBG 32 mmHg; pH VBG 7.28 (7.36-7.41)
[2018-08-02 12:49] LABS: Alanine Aminotransferase 251 U/L (12-78); Albumin Level 3.3 gm/dl (3.4-5.0); Alkaline Phosphatase 155 U/L (45-117); Aspartate Aminotransferase 730 U/L (15-37); BUN Creatinine Ratio 17.4 (10-20); Bilirubin Direct 1.5 mg/dl (0-0.2); Bilirubin,Total 2.4 mg/dl (0.2-1); Blood Urea Nitrogen 43 mg/dl (7-18); Carbon Dioxide 21 mmol/L (21-32); Chloride 99 mmol/L (98-107); Creatinine Clr Calc Pharmacy 32.6 ml/min; Est GFR (African American) 24.3; Glucose 269 mg/dl (70-99); Sodium 134 mmol/L (136-145); Troponin I < 0.015 ng/ml (0-0.045)
--- NOTE | 2018-08-02 13:27 | Pre Anesthesia Assessment ---
Date of Service August 02, 2018 Pre Sedation Assessment Vital Signs Temp Pulse Pulse Resp BP BP BP 08/02/18 12:18 122 H 45 H 111/91 08/02/18 11:30 112 H 33 H 126/86 08/02/18 11:01 120 H 23 116/106 H 08/02/18 10:32 111 H 22 128/78 08/02/18 10:09 115 H 22 91/58 L 08/02/18 10:00 109 H 18 08/02/18 09:45 114 H 20 08/02/18 08:48 66 72/50 L 08/02/18 07:53 37.0 C 100 H 18 08/02/18 04:00 37.1 C 127 H 22 96/55 L 08/01/18 23:10 37.1 C 117 H 20 100/60 08/01/18 19:16 36.3 C L 95 H 22 101/69 08/01/18 15:49 128 H 08/01/18 15:29 36.4 C L 128 H 22 103/47 L Pulse Ox 08/02/18 12:18 91 08/02/18 11:30 97 08/02/18 11:01 99 08/02/18 10:32 99 08/02/18 10:09 99 08/02/18 10:00 95 08/02/18 09:45 93 08/02/18 08:48 08/02/18 07:53 96 08/02/18 04:00 94 08/01/18 23:10 94 08/01/18 19:16 96 08/01/18 15:49 08/01/18 15:29 100 Cardiovascular + tachycardic Respiratory + respiratory effort normal Pre-Sedation Airway Assessment Smoking Status: Former smoker Hx Sleep Apnea: No Hx Difficult Intubation: No Short, Thick Neck: Yes Thyromental Distance: > or= 3.5 Finger Breadths Mallampati Class: III ASA: ASA3 Procedure Planning Contraindications for Sedation: none Current Medications Reviewed: Yes Notes The planned sedation has been discussed with the patient. Informed Consent was obtained. I have identified the patient, determined the appropriateness of sedation and have assessed the patient immediately prior to the procedure. All medicine(s) and interventions are by my order.
[2018-08-02] MEDS ORDERED: MIDAZOLAM HCL 1 MG/ML 2ML VIAL ONE (13:34)
--- NOTE | 2018-08-02 14:18 | Cardiac Catheterization ---
Cardiac Cath Procedure: Brief Procedure Date August 02, 2018 Pre-Procedure Diagnosis Pre-Procedure Diagnosis: CHF AUC Score AUC Score: 7 Post-Procedure Diagnosis Post-Procedure Diagnosis: Decreased LV Systolic Function Procedure(s) Performed Procedure(s) Performed: Right Heart Cath Carpet Mechanic Guilherme Pelayo MD Business Management Associate(s) none Estimated Blood Loss Estimated Blood Loss: 10cc Medication(s) Medication(s): Lidocaine 1% and Versed Preliminary Findings Severe pulmonary hypertension, mildly elevated PCWP 6F sheath exchanged for dialysis catheter Recommendations Recommendations: None Specimens Specimens: None Disposition ICU
[2018-08-02] MEDS ORDERED: HEPARIN SOD (PORCINE) 5,000 UNITS/ML VIAL ONE (14:30)
[2018-08-02] MEDS: HEPARIN SOD 5,000 UNIT/0.5 ML VIAL SQ SCH ×2 (14:52→20:29)
--- NOTE | 2018-08-02 17:04 | Cardiology Progress Note ---
Date of Service August 02, 2018 Assessment & Plan (1) Atrial fibrillation: She continues to have elevated ventricular rates although not markedly so. I think our ability to control her ventricular rates would be compromised by her acute illness and decompensation. Continue on metoprolol. Digoxin discontinued due to her renal dysfunction and hyperkalemia. Her oral anticoagulation has been held in anticipation of possible procedures. She can continue on heparin although this will likely need to be switched to unfractionated given her renal dysfunction. (2) Pericardial effusion: This looks slightly smaller on her echocardiogram performed on admission. I do not believe this is causing any hemodynamic compromise. The etiology is unclear but there is a suspicion for connective tissue disorder. Right heart catheterization today did not reveal evidence tamponade. (3) Chest pain: This is not related to an acute coronary syndrome. Possibly related to an element of pericarditis or even musculoskeletal. (4) Congestive heart failure with cardiomyopathy: Her pulmonary capillary wedge pressure is mildly elevated. This would suggest an element of continued heart failure. We could not affect a good diuresis even with escalating doses. She did seem to respond earlier today to a very high dose of bumetanide. I think we can continue attempts at diuresis monitoring her renal function closely. (5) Nonischemic cardiomyopathy: Will continue on beta-blockade. Once her hemodynamics appear to be stable we will consider addition of ARB or possibly Entresto (6) Severe mitral regurgitation: I believe this is most likely functional given her dilated cardiomyopathy. However, there did not appear to be good options for addressing this issue at this time. He likely does play a role in her overall poor condition. (7) Acute kidney injury: Appreciate the purchasing expeditor's input. Possibly due to ATN. No obstruction on renal ultrasound. Hopefully with improved hemodynamics we will see some return of renal function. There is not appear to be eating acute indication for dialysis. (8) Pulmonary hypertension: Some this is certainly related to left heart failure. However, her degree of dyspnea and elevation in her pulmonary pressures seem somewhat unusual for simple left-sided failure. Especially given the filling pressures noted on right heart catheterization today. If we do not see significant improvement in short order, may due to explore other causes for her dyspnea. Subjective This morning the patient was feeling more lethargic. She stated that she �no something is wrong inside�. She continues to have some discomfort in the left lateral chest wall. This is present primarily with lying on that side. She has not been very ambulatory. She has little appetite. Physical Exam Vital Signs (Past 24 Hours): Last Vital Signs Temp 36.7 C 08/02/18 16:00 Pulse 110 H 08/02/18 16:00 Resp 22 08/02/18 16:00 BP 102/76 08/02/18 16:00 Pulse Ox 99 08/02/18 16:00 Physical Exam: She is alert and oriented x3. Mood affect appear normal. She answered all questions appropriately. HEENT: Sclerae are anicteric. Pupils are equal and reactive to light and accommodation. Extraocular movements were intact. Neuro: Cranial nerves intact Lungs: Lungs are clear to auscultation bilaterally. There are no rales wheezes or rhonchi. She has normal respiratory effort without use of accessory muscles. There is normal pulmonary excursion. Cardiac: The rhythm was irregular. S1 and S2 were normal. Holosystolic murmur of variable intensity. The PMI was not markedly displaced on palpation. Abdomen: The abdomen was soft and nontender. Extremities: Patient has bilateral radial pulses that are equal in intensity. There is no evidence cyanosis or clubbing. There was no evidence of significant peripheral edema bilaterally. Skin: There are no rashes noted on examination today. Results & Data Laboratory Results Abnormal Lab Results 08/02/18 08/02/18 08/02/18 05:33 06:53 07:12 WBC RBC Hgb Hct MCV MCH MCHC RDW Std Deviation RDW Coeff of [place] Plt Count MPV Immature Gran % (Auto) Neut % (Auto) Lymph % (Auto) [place] % (Auto) Eos % (Auto) Baso % (Auto) Immature Gran # (Auto) Neut # (Auto) Lymph # (Auto) [place] # (Auto) Eos # (Auto) Baso # (Auto) Absolute Nucleated RBC Nucleated RBC % (auto) VBG pH VBG pCO2 VBG pO2 VBG HCO3 VBG O2 Saturation VBG Base Excess Barometric Pressure Sodium 135 L Potassium 6.1 H* D Chloride 99 Carbon Dioxide 18 L Anion Gap 19.0 H BUN 39 H D Creatinine 2.75 H D Est Cr Clr Drug Dosing 29.4 Est GFR ( Amer) 21.5 Est GFR (Non-Af Amer) 18.5 BUN/Creatinine Ratio 14.1 Glucose 50 L* POC Glucose 50 L* 48 L* Lactate Calcium 9.1 Total Bilirubin 3.3 H D Direct Bilirubin 2.0 H AST 296 H ALT 109 H Alkaline Phosphatase 157 H Troponin I C-Reactive Protein 4.25 H Total Protein 8.1 Albumin 3.5 Globulin 4.6 H Albumin/Globulin Ratio 0.8 L Urine Color Urine Appearance Urine pH Ur Specific [place] Urine Protein Urine Glucose (UA) Urine Ketones Urine Blood Urine Nitrite Urine Bilirubin Urine Urobilinogen Ur Leukocyte Esterase Urine WBC (Auto) Urine RBC (Auto) U Hyaline Cast (Auto) U Epithel Cells (Auto) Urine Bacteria (Auto) Calcium Oxalate Crystal Granular Casts Digoxin 08/02/18 08/02/18 08/02/18 07:14 07:41 09:50 WBC RBC Hgb Hct MCV MCH MCHC RDW Std Deviation RDW Coeff of [place] Plt Count MPV Immature Gran % (Auto) Neut % (Auto) Lymph % (Auto) [place] % (Auto) Eos % (Auto) Baso % (Auto) Immature Gran # (Auto) Neut # (Auto) Lymph # (Auto) [place] # (Auto) Eos # (Auto) Baso # (Auto) Absolute Nucleated RBC Nucleated RBC % (auto) VBG pH VBG pCO2 VBG pO2 VBG HCO3 VBG O2 Saturation VBG Base Excess Barometric Pressure Sodium 134 L Potassium 6.0 H Chloride 99 Carbon Dioxide 20 L Anion Gap 16.0 H BUN 42 H Creatinine 2.49 H Est Cr Clr Drug Dosing 32.5 Est GFR ( Amer) 24.2 Est GFR (Non-Af Amer) 20.9 BUN/Creatinine Ratio 16.9 Glucose 139 H POC Glucose 49 L* 119 H Lactate Calcium 9.3 Total Bilirubin Direct Bilirubin AST ALT Alkaline Phosphatase Troponin I C-Reactive Protein Total Protein Albumin Globulin Albumin/Globulin Ratio Urine Color Urine Appearance Urine pH Ur Specific [place] Urine Protein Urine Glucose (UA) Urine Ketones Urine Blood Urine Nitrite Urine Bilirubin Urine Urobilinogen Ur Leukocyte Esterase Urine WBC (Auto) Urine RBC (Auto) U Hyaline Cast (Auto) U Epithel Cells (Auto) Urine Bacteria (Auto) Calcium Oxalate Crystal Granular Casts Digoxin 08/02/18 08/02/18 08/02/18 10:30 11:22 12:05 WBC 13.31 H RBC 4.15 L Hgb 12.1 Hct 36.3 L MCV 87.5 MCH 29.2 MCHC 33.3 RDW Std Deviation 49.4 H RDW Coeff of [place] 15.6 H Plt Count 242 MPV 10.0 Immature Gran % (Auto) 0.5 Neut % (Auto) 79.4 Lymph % (Auto) 15.1 [place] % (Auto) 5.0 Eos % (Auto) 0.0 Baso % (Auto) 0.0 Immature Gran # (Auto) 0.07 H Neut # (Auto) 10.56 H Lymph # (Auto) 2.01 [place] # (Auto) 0.67 H Eos # (Auto) 0.00 Baso # (Auto) 0.00 Absolute Nucleated RBC 0.17 H Nucleated RBC % (auto) 1.3 VBG pH VBG pCO2 VBG pO2 VBG HCO3 VBG O2 Saturation VBG Base Excess Barometric Pressure Sodium Potassium Chloride Carbon Dioxide Anion Gap BUN Creatinine Est Cr Clr Drug Dosing Est GFR ( Amer) Est GFR (Non-Af Amer) BUN/Creatinine Ratio Glucose POC Glucose 263 H Lactate Calcium Total Bilirubin Direct Bilirubin AST ALT Alkaline Phosphatase Troponin I C-Reactive Protein Total Protein Albumin Globulin Albumin/Globulin Ratio Urine Color Yellow Urine Appearance Turbid H Urine pH 5.0 Ur Specific [place] 1.013 Urine Protein Negative Urine Glucose (UA) 2+ H Urine Ketones Negative Urine Blood 3+ H Urine Nitrite Negative Urine Bilirubin Negative Urine Urobilinogen Negative Ur Leukocyte Esterase 3+ H Urine WBC (Auto) 5-10 H Urine RBC (Auto) >30 H U Hyaline Cast (Auto) 0 U Epithel Cells (Auto) >30 H Urine Bacteria (Auto) 1+ H Calcium Oxalate Crystal Present H Granular Casts 1-5 H Digoxin 08/02/18 08/02/18 08/02/18 12:05 12:05 12:05 WBC RBC Hgb Hct MCV MCH MCHC RDW Std Deviation RDW Coeff of [place] Plt Count MPV Immature Gran % (Auto) Neut % (Auto) Lymph % (Auto) [place] % (Auto) Eos % (Auto) Baso % (Auto) Immature Gran # (Auto) Neut # (Auto) Lymph # (Auto) [place] # (Auto) Eos # (Auto) Baso # (Auto) Absolute Nucleated RBC Nucleated RBC % (auto) VBG pH 7.28 L VBG pCO2 50 VBG pO2 32 VBG HCO3 23 VBG O2 Saturation < 60.0 VBG Base Excess -4.5 Barometric Pressure 735.0 Sodium 134 L Potassium 4.0 D Chloride 99 Carbon Dioxide 21 Anion Gap 14.0 H BUN 43 H Creatinine 2.48 H Est Cr Clr Drug Dosing 32.6 Est GFR ( Amer) 24.3 Est GFR (Non-Af Amer) 21.0 BUN/Creatinine Ratio 17.4 Glucose 269 H POC Glucose Lactate 6.8 H* Calcium 9.0 Total Bilirubin 2.4 H Direct Bilirubin 1.5 H AST 730 H ALT 251 H Alkaline Phosphatase 155 H Troponin I < 0.015 C-Reactive Protein Total Protein 8.0 Albumin 3.3 L Globulin Albumin/Globulin Ratio Urine Color Urine Appearance Urine pH Ur Specific [place] Urine Protein Urine Glucose (UA) Urine Ketones Urine Blood Urine Nitrite Urine Bilirubin Urine Urobilinogen Ur Leukocyte Esterase Urine WBC (Auto) Urine RBC (Auto) U Hyaline Cast (Auto) U Epithel Cells (Auto) Urine Bacteria (Auto) Calcium Oxalate Crystal Granular Casts Digoxin 08/02/18 08/02/18 12:05 16:48 WBC RBC Hgb Hct MCV MCH MCHC RDW Std Deviation RDW Coeff of [place] Plt Count MPV Immature Gran % (Auto) Neut % (Auto) Lymph % (Auto) [place] % (Auto) Eos % (Auto) Baso % (Auto) Immature Gran # (Auto) Neut # (Auto) Lymph # (Auto) [place] # (Auto) Eos # (Auto) Baso # (Auto) Absolute Nucleated RBC Nucleated RBC % (auto) VBG pH VBG pCO2 VBG pO2 VBG HCO3 VBG O2 Saturation VBG Base Excess Barometric Pressure Sodium Potassium Chloride Carbon Dioxide Anion Gap BUN Creatinine Est Cr Clr Drug Dosing Est GFR ( Amer) Est GFR (Non-Af Amer) BUN/Creatinine Ratio Glucose POC Glucose 77 Lactate Calcium Total Bilirubin Direct Bilirubin AST ALT Alkaline Phosphatase Troponin I C-Reactive Protein Total Protein Albumin Globulin Albumin/Globulin Ratio Urine Color Urine Appearance Urine pH Ur Specific [place] Urine Protein Urine Glucose (UA) Urine Ketones Urine Blood Urine Nitrite Urine Bilirubin Urine Urobilinogen Ur Leukocyte Esterase Urine WBC (Auto) Urine RBC (Auto) U Hyaline Cast (Auto) U Epithel Cells (Auto) Urine Bacteria (Auto) Calcium Oxalate Crystal Granular Casts Digoxin 1.0 Diagnostic Findings Right heart catheterization revealed mildly elevated cardiac filling pressures with markedly elevated pulmonary pressures. ECG Additional Comments: Telemetry reveals continued atrial fibrillation with rapid ventricular rates. (1) Atrial fibrillation Atrial fibrillation type: unspecified Qualified Code(s): I48.91 - Unspecified atrial fibrillation (2) Chest pain Chest pain type: unspecified Qualified Code(s): R07.9 - Chest pain, unspecified
--- NOTE | 2018-08-02 17:09 | Procedure Note ---
Procedure Note Date of Service August 02, 2018 Note Procedure performed: Right heart catheterization, placement of right internal jugular dialysis catheter. Ultrasound-guided vascular access. Staff polygraph examiner: Guilherme Pelayo MD Indication: Patient is a 57-year-old woman with a history of nonischemic cardiomyopathy who continues to have significant dyspnea on exertion. This morning she developed acute renal failure and has had little urine output. There has been some question regarding her overall volume status. Additionally, she may require urgent dialysis for acute kidney injury and history of hyperkalemia. Procedure in detail: Patient was informed of the risks benefits and alternatives to the intended procedure. She understood and wished to proceed. She was taken to the cardiac catheterization suite in a fasting state. Patient was monitored electrocard iographically throughout today's procedure and sedation was administered per protocol. The right internal jugular area was prepped and draped in usual sterile fashion. This area was anesthetized using subcutaneous administration of lidocaine solution. Right internal jugular vein was subsequently access using modified Selinger technique under ultrasound guidance and a 6 Malagasy venous sheath was placed at the site over guidewire. This sheath was used to facilitate passage of a balloon tip catheter for pressure measurements. Cardiac outputs were also obtained. Upon completion of these measurements the catheter was removed. The sheath was subsequently exchanged for a 12 Malagasy dialysis catheter. This catheter was subsequently sutured into place and sterile dressing was applied. Patient tolerated the procedure well. There were no immediate complications. Findings: Right atrial pressure average 20 millimeters of mercury Right ventricular pressure was 50/7 millimeters of mercury Pulmonary artery pressure was 60/40 millimeters of mercury Pulmonary capillary wedge pressure averaged 16 millimeters of mercury Cardiac output was 3.9 liters/minute with a cardiac index of 1.8 Impression: Mildly decompensated left ventricular failure Severe pulmonary hypertension
[2018-08-02] MEDS: ACETAMINOPHEN 325 MG TAB PO PRN (20:28)
[2018-08-02 20:43] LABS: BUN Creatinine Ratio 20.7 (10-20); Calcium 8.6 mg/dl (8.5-10.1); Creatinine Clr Calc Pharmacy 41.3 ml/min; Est GFR (African American) 32.3; Est GFR (Non-African American) 27.9; Potassium 3.8 mmol/L (3.5-5.1)
[2018-08-02 20:56] LABS: Troponin I 0.198 ng/ml (0-0.045)
--- NOTE | 2018-08-02 22:42 | Hospitalist Progress Note ---
Date of Service August 02, 2018 Assessment & Plan (1) Acute kidney injury: Patient has an elevated creatinine with an elevated potassium Ordered calcium. Patient will likely require emergent dialysis. There is a question that this may be a complication of her non ischemic cardiomyopathy, vs iatrogenic KIRSTIN from diuretics. Patient will be transferred to the ICU. (2) Hyperkalemia: Patient may need emergent dialysis. (3) Atrial fibrillation with RVR: Patient with history of the same. She was cardioverted in June. Presents today in AF with RVR. Most likely contributing to her SOB, possibly some CHF in setting of poor rate control. She reports compliance with her medications. HR improved slightly with Metoprolol given in ER. Digoxin level=0.4 -Admit to PCU for cardiac monitoring -May need to stop dig due to her kidney disease and hiperkalemia will continue betablocker. -Continue Rivaroxaban for anticoagulation Appreciate cardiac input. (4) Shortness of breath: Patient with adequate oxygenation on NC. No respiratory distress noted. Progressive SOB over the last month. BNP is elevated but near prior levels. CXR with possible PVC. -Rate control as above Diuretics will be held as patient is not responding. (5) Acute on chronic systolic heart failure: Patient with history of NICM with poor EF. Possibly in mild failure now - SOB, PVC on CXR -Supplemental O2 as needed -Echo as above (6) Pericardial effusion: History of the same. Suspected pericarditis during last hospital stay. Does not appear to have tamponade at this time - no JVD, heart sounds pronounced, BP maintained. Autoimmune workup during last hospital stay with Positive JOHNSON, 1:80 in nucleolar pattern (most commonly associated with scleroderma, CREST, systemic sclerosis and Sjogren's). -Repeat echo to assess effusion -Continue Colchicine 0.6mg po BID -Patient is to followup with Rheumatology in October 2018 as scheduled (7) Diabetes: Blood sugar well controlled at present. Patient is on Metformin at home. A1C=6 in 04/2018 -Hold Metformin -Lantus 8u BID -ISS based on weight -Continue to monitor (8) Chronic respiratory failure with hypoxia: No respiratory distress at present. Subjective SOB. Adequate oxygenation -Supplemental O2 as needed (9) Morbid obesity: Noted. Encourage lifestyle modification, diet and exercise (10) Schizoaffective disorder: Stable. -Continue Seroquel -Continue Trazodone (11) GERD (gastroesophageal reflux disease): Stable. -Continue Omeprazole (12) Hypokalemia: Now hyperkalemic (13) COPD (chronic obstructive pulmonary disease): Stable. No wheeze. Adequate oxygenation on NC -Albuterol PRN F/E/N - Heplock. Diuresis as above. Monitor daily labs and replete electrolytes as needed. CC/Heart healthy diet as tolerated Ppx - Anticoagulated with Rivaroxaban, continue home omeprazole Code - Full per discussion with patient Dispo -Admit to PCU (14) Electrolyte imbalance: As noted above. (15) DVT prophylaxis: Patient anticoagulated with Xarelto Ambulate as tolerated No asymmetrical edema Continue to monitor Spent 35 minutes in the management of patient. Subjective Patient appears to be dyspneic. I was called by nurse as her electrolytes have continues to worsened and she has not made urine despite diuretics. D/W cardiology. Will transfer patient to ICU. Patient was informed of this decision. Currently she is denying any chest pain at this time. Review of Systems All systems reviewed & are unremarkable except as noted in HPI & below Physical Exam Vital Signs (Past 24 Hours): Last Vital Signs Temp 36.7 C 08/02/18 16:00 Pulse 102 H 08/02/18 18:13 Resp 17 08/02/18 18:13 BP 118/61 08/02/18 18:13 Pulse Ox 97 08/02/18 18:13 Physical Exam: GENERAL : Moderate distress. EYES: No icterus, gaze conjugate NOSE: No evidence of epistaxis MOUTH: No lesions or candidiasis. No facial droop. Tongue is midline NECK: Supple. No carotid bruits LUNGS: CTA B/L, no wheezes, rales or rhonchi. using accesory muscles to breath. HEART: Irregular, irregular, tachycardic ABDOMEN: Soft, NT, ND, BS Present EXTREMITIES: No LE edema, pedal pulses intact. All extremities are cool to touch NEURO: A&OX3 (1) Diabetes Diabetes mellitus complication status: without complication Diabetes mellitus correction insulin use: without correction use Diabetes mellitus type: type 2 Qualified Code(s): E11.9 - Type 2 diabetes mellitus without complications (2) Schizoaffective disorder Schizoaffective disorder type: other Qualified Code(s): F25.8 - Other schizoaffective disorders (3) COPD (chronic obstructive pulmonary disease) COPD type: unspecified COPD Qualified Code(s): J44.9 - Chronic obstructive pulmonary disease, unspecified (4) GERD (gastroesophageal reflux disease) Esophagitis presence: esophagitis presence not specified Qualified Code(s): K21.9 - Gastro-esophageal reflux disease without esophagitis
[2018-08-03] MEDS: INSULIN GLARGINE SOLOSTAR 100 UNITS/ML 3 ML PEN SC SCH ×2 (00:27→08:27)
[2018-08-03] MEDS: ACETAMINOPHEN 325 MG TAB PO PRN ×3 (02:14→20:19)
[2018-08-03 04:58] LABS: Basophils # (auto) 0.04 K/uL (0-0.2); Basophils % (auto) 0.3 %; Eosinophils # (auto) 0.07 K/uL (0-0.5); Eosinophils % (auto) 0.5 %; Hematocrit (blood only) 36.6 % (37-47); Hemoglobin 11.9 g/dL (12.0-16.0); Immature Granulocytes # (auto) 0.05 K/uL (0.00-0.02); Immature Granulocytes % (auto) 0.4 %; Lymphocytes # (auto) 3.38 K/uL (1.2-3.4); Lymphocytes % (auto) 24.4 %; Mean Corpuscular Hgb Conc 32.5 g/dL (32-36); Mean Corpuscular Volume 86.9 fL (80-100); Mean Platelet Volume 9.5 fL (7.4-10.4); Monocytes % (auto) 7.9 %; Neutrophils % (auto) 66.5 %; Nucleated RBC # (auto) 0.15 K/uL (0-0); Nucleated RBC % (auto) 1.1 %; Platelet Count 254 K/uL (130-400); RDW Coefficient of Variation 15.7 % (11.5-14.5); RDW Standard Deviation 49.1 fL (36.4-46.3); Red Blood Count 4.21 M/uL (4.2-5.4); White Blood Count 13.84 K/uL (4.8-10.8)
[2018-08-03 05:40] LABS: BUN Creatinine Ratio 22.7 (10-20); Bilirubin Direct 0.8 mg/dl (0-0.2); Bilirubin,Total 1.4 mg/dl (0.2-1); Calcium 7.9 mg/dl (8.5-10.1); Creatinine Clr Calc Pharmacy 45.2 ml/min; Est GFR (African American) 36.1; Est GFR (Non-African American) 31.1; Magnesium 2.1 mg/dl (1.8-2.4); Phosphorus 4.4 mg/dl (2.5-4.9); Potassium 4.3 mmol/L (3.5-5.1); Troponin I 0.126 ng/ml (0-0.045)
--- NOTE | 2018-08-03 07:08 | Critical Care Progress Note ---
Date of Service August 03, 2018 Assessment & Plan (1) Shortness of breath: (2) Atrial fibrillation with RVR: (3) Acute on chronic systolic heart failure: (4) Pericardial effusion: (5) Diabetes: (6) Schizoaffective disorder: (7) Electrolyte imbalance: Hyperkalemia (8) DVT prophylaxis: Supervising Physician Co-Signing Physician Notes PLAN: Neuro: Schizoaffective disorder -Seroquel, Benadryl, Vistaril -This is a difficult situation as the patient has a prolonged QTC acute renal failure and was somnolent this morning -Currently holding her medications -Check EKG to eval today Resp: Dyspnea: Improved CV: Nonischemic cardiomyopathy -Mildly decreased EF Atrial fibrillation -Previously anticoagulated with Xarelto -Restarting Xarelto -On digoxin: Level 1 yesterday - holding any additional doses Fluids/Renal: Hyperkalemia resolved Acute renal failure: Improved -Discontinue temporary HD catheter today ID: Monitor for infectious sources -Mild leukocytosis no culture proven infections GI/Nutrition: Regular AHA renal diet Heme: Anemia -Patient consented for blood products should she need them DVT prophylaxis: -Restarting Xarelto as the patient needs systemic anticoagulation and Lovenox contraindicated at this time Endocrine: ICU hyperglycemia protocol -Patient refusing Lantus however blood sugars within acceptable range Vascular access: Peripheral IVs -Discontinue temporary HD catheter today Code Status: Full -Patient desires her sister to be healthcare surrogate and not her adult children Patient was discussed in multidisciplinary rounds I discussed the patient with Dr. Mccall with the hospitalist services Dr. Pelayo of the cardiology service Patient stable for downgrade to telemetry status Subjective Patient feels significantly improved. Tolerated breakfast this morning Physical Exam Vital Signs (Past 24 Hours): Last Vital Signs Temp 36.5 C 08/03/18 04:01 Pulse 120 H 08/03/18 06:06 Resp 20 08/03/18 06:06 BP 105/79 08/03/18 06:06 Pulse Ox 99 08/03/18 06:06 General: Alert. nontoxic. Skin: Warm, dry, Head: Atraumatic Ears, nose, mouth and throat: airway patent: Temporary HD catheter present in right side of neck Cardiovascular: Normal peripheral perfusion, irregularly irregular Respiratory: no respiratory distress Gastrointestinal: Non distended Musculoskeletal: No deformity Results & Data Laboratory Results 08/03/18 08/03/18 08/03/18 Range/Units 10:06 07:28 04:43 WBC (4.8-10.8) K/uL RBC (4.2-5.4) M/uL Hgb (12.0-16.0) g/dL Hct (37-47) % MCV (80-100) fL MCH (25-34) pg MCHC (32-36) g/dL RDW Std Deviation (36.4-46.3) fL RDW Coeff of Logan (11.5-14.5) % Plt Count (130-400) K/uL MPV (7.4-10.4) fL Immature Gran % (Auto) % Neut % (Auto) % Lymph % (Auto) % [place] % (Auto) % Eos % (Auto) % Baso % (Auto) % Immature Gran # (Auto) (0.00-0.02) K/uL Neut # (Auto) (1.4-6.5) K/uL Lymph # (Auto) (1.2-3.4) K/uL [place] # (Auto) (0.11-0.59) K/uL Eos # (Auto) (0-0.5) K/uL Baso # (Auto) (0-0.2) K/uL Absolute Nucleated RBC (0-0) K/uL Nucleated RBC % (auto) % ESR (0-21) mm/hr VBG pH (7.36-7.41) VBG pCO2 (38-50) mmHg VBG pO2 mmHg VBG HCO3 mmol/L VBG O2 Saturation % VBG Base Excess mEq/L Barometric Pressure mm/Hg Sodium (136-145) mmol/L Potassium (3.5-5.1) mmol/L Chloride (98-107) mmol/L Carbon Dioxide (21-32) mmol/L Anion Gap (3-11) BUN (7-18) mg/dl Creatinine (0.6-1.2) mg/dl Est Cr Clr Drug Dosing ml/min Est GFR ( Amer) Est GFR (Non-Af Amer) BUN/Creatinine Ratio (10-20) Glucose (70-99) mg/dl POC Glucose 108 H 95 (70-99) Lactate 2.4 H* (0.4-2.0) mmol/L Calcium (8.5-10.1) mg/dl Phosphorus (2.5-4.9) mg/dl Magnesium (1.8-2.4) mg/dl Total Bilirubin (0.2-1) mg/dl Direct Bilirubin (0-0.2) mg/dl AST (15-37) U/L ALT (12-78) U/L Alkaline Phosphatase (45-117) U/L Troponin I (0-0.045) ng/ml Total Protein (6.4-8.2) gm/dl Albumin (3.4-5.0) gm/dl Urine Color Urine Appearance (Clear) Urine pH (4.5-7.5) Ur Specific [place] (1.000-1.030) Urine Protein (Negative) Urine Glucose (UA) (Negative) Urine Ketones (Negative) Urine Blood (Negative) Urine Nitrite (Negative) Urine Bilirubin (Negative) Urine Urobilinogen (Negative) Ur Leukocyte Esterase (Negative) Urine WBC (Auto) (0-5) /hpf Urine RBC (Auto) (0-4) /hpf U Hyaline Cast (Auto) (0-5) /lpf U Epithel Cells (Auto) (0-5) /lpf Urine Bacteria (Auto) (Negative) Calcium Oxalate Crystal (None Prsent) Granular Casts (0) /lpf Digoxin (0.8-2.0) ng/ml 08/03/18 08/03/18 08/03/18 Range/Units 04:43 04:43 04:43 WBC 13.84 H (4.8-10.8) K/uL RBC 4.21 (4.2-5.4) M/uL Hgb 11.9 L (12.0-16.0) g/dL Hct 36.6 L (37-47) % MCV 86.9 (80-100) fL MCH 28.3 (25-34) pg MCHC 32.5 (32-36) g/dL RDW Std Deviation 49.1 H (36.4-46.3) fL RDW Coeff of Logan 15.7 H (11.5-14.5) % Plt Count 254 (130-400) K/uL MPV 9.5 (7.4-10.4) fL Immature Gran % (Auto) 0.4 % Neut % (Auto) 66.5 % Lymph % (Auto) 24.4 % [place] % (Auto) 7.9 % Eos % (Auto) 0.5 % Baso % (Auto) 0.3 % Immature Gran # (Auto) 0.05 H (0.00-0.02) K/uL Neut # (Auto) 9.20 H (1.4-6.5) K/uL Lymph # (Auto) 3.38 (1.2-3.4) K/uL [place] # (Auto) 1.10 H (0.11-0.59) K/uL Eos # (Auto) 0.07 (0-0.5) K/uL Baso # (Auto) 0.04 (0-0.2) K/uL Absolute Nucleated RBC 0.15 H (0-0) K/uL Nucleated RBC % (auto) 1.1 % ESR 40 H (0-21) mm/hr VBG pH (7.36-7.41) VBG pCO2 (38-50) mmHg VBG pO2 mmHg VBG HCO3 mmol/L VBG O2 Saturation % VBG Base Excess mEq/L Barometric Pressure mm/Hg Sodium 134 L (136-145) mmol/L Potassium 4.3 (3.5-5.1) mmol/L Chloride 98 (98-107) mmol/L Carbon Dioxide 27 (21-32) mmol/L Anion Gap 9.0 (3-11) BUN 41 H (7-18) mg/dl Creatinine 1.79 H (0.6-1.2) mg/dl Est Cr Clr Drug Dosing 45.2 ml/min Est GFR ( Amer) 36.1 Est GFR (Non-Af Amer) 31.1 BUN/Creatinine Ratio 22.7 H (10-20) Glucose 84 (70-99) mg/dl POC Glucose (70-99) Lactate (0.4-2.0) mmol/L Calcium 7.9 L (8.5-10.1) mg/dl Phosphorus 4.4 (2.5-4.9) mg/dl Magnesium 2.1 (1.8-2.4) mg/dl Total Bilirubin 1.4 H (0.2-1) mg/dl Direct Bilirubin 0.8 H (0-0.2) mg/dl AST 1234 H (15-37) U/L ALT 503 H (12-78) U/L Alkaline Phosphatase 132 H (45-117) U/L Troponin I 0.126 H* (0-0.045) ng/ml Total Protein 7.0 (6.4-8.2) gm/dl Albumin 3.0 L (3.4-5.0) gm/dl Urine Color Urine Appearance (Clear) Urine pH (4.5-7.5) Ur Specific [place] (1.000-1.030) Urine Protein (Negative) Urine Glucose (UA) (Negative) Urine Ketones (Negative) Urine Blood (Negative) Urine Nitrite (Negative) Urine Bilirubin (Negative) Urine Urobilinogen (Negative) Ur Leukocyte Esterase (Negative) Urine WBC (Auto) (0-5) /hpf Urine RBC (Auto) (0-4) /hpf U Hyaline Cast (Auto) (0-5) /lpf U Epithel Cells (Auto) (0-5) /lpf Urine Bacteria (Auto) (Negative) Calcium Oxalate Crystal (None Prsent) Granular Casts (0) /lpf Digoxin (0.8-2.0) ng/ml 08/02/18 08/02/18 08/02/18 Range/Units 23:42 20:26 20:18 WBC (4.8-10.8) K/uL RBC (4.2-5.4) M/uL Hgb (12.0-16.0) g/dL Hct (37-47) % MCV (80-100) fL MCH (25-34) pg MCHC (32-36) g/dL RDW Std Deviation (36.4-46.3) fL RDW Coeff of Logan (11.5-14.5) % Plt Count (130-400) K/uL MPV (7.4-10.4) fL Immature Gran % (Auto) % Neut % (Auto) % Lymph % (Auto) % [place] % (Auto) % Eos % (Auto) % Baso % (Auto) % Immature Gran # (Auto) (0.00-0.02) K/uL Neut # (Auto) (1.4-6.5) K/uL Lymph # (Auto) (1.2-3.4) K/uL [place] # (Auto) (0.11-0.59) K/uL Eos # (Auto) (0-0.5) K/uL Baso # (Auto) (0-0.2) K/uL Absolute Nucleated RBC (0-0) K/uL Nucleated RBC % (auto) % ESR (0-21) mm/hr VBG pH (7.36-7.41) VBG pCO2 (38-50) mmHg VBG pO2 mmHg VBG HCO3 mmol/L VBG O2 Saturation % VBG Base Excess mEq/L Barometric Pressure mm/Hg Sodium 136 (136-145) mmol/L Potassium 3.8 (3.5-5.1) mmol/L Chloride 99 (98-107) mmol/L Carbon Dioxide 27 (21-32) mmol/L Anion Gap 10.0 (3-11) BUN 41 H (7-18) mg/dl Creatinine 1.96 H D (0.6-1.2) mg/dl Est Cr Clr Drug Dosing 41.3 ml/min Est GFR ( Amer) 32.3 Est GFR (Non-Af Amer) 27.9 BUN/Creatinine Ratio 20.7 H (10-20) Glucose 103 H (70-99) mg/dl POC Glucose 91 95 (70-99) Lactate (0.4-2.0) mmol/L Calcium 8.6 (8.5-10.1) mg/dl Phosphorus (2.5-4.9) mg/dl Magnesium (1.8-2.4) mg/dl Total Bilirubin (0.2-1) mg/dl Direct Bilirubin (0-0.2) mg/dl AST (15-37) U/L ALT (12-78) U/L Alkaline Phosphatase (45-117) U/L Troponin I 0.198 H* (0-0.045) ng/ml Total Protein (6.4-8.2) gm/dl Albumin (3.4-5.0) gm/dl Urine Color Urine Appearance (Clear) Urine pH (4.5-7.5) Ur Specific [place] (1.000-1.030) Urine Protein (Negative) Urine Glucose (UA) (Negative) Urine Ketones (Negative) Urine Blood (Negative) Urine Nitrite (Negative) Urine Bilirubin (Negative) Urine Urobilinogen (Negative) Ur Leukocyte Esterase (Negative) Urine WBC (Auto) (0-5) /hpf Urine RBC (Auto) (0-4) /hpf U Hyaline Cast (Auto) (0-5) /lpf U Epithel Cells (Auto) (0-5) /lpf Urine Bacteria (Auto) (Negative) Calcium Oxalate Crystal (None Prsent) Granular Casts (0) /lpf Digoxin (0.8-2.0) ng/ml 08/02/18 08/02/18 08/02/18 Range/Units 18:24 16:48 12:05 WBC (4.8-10.8) K/uL RBC (4.2-5.4) M/uL Hgb (12.0-16.0) g/dL Hct (37-47) % MCV (80-100) fL MCH (25-34) pg MCHC (32-36) g/dL RDW Std Deviation (36.4-46.3) fL RDW Coeff of Logan (11.5-14.5) % Plt Count (130-400) K/uL MPV (7.4-10.4) fL Immature Gran % (Auto) % Neut % (Auto) % Lymph % (Auto) % [place] % (Auto) % Eos % (Auto) % Baso % (Auto) % Immature Gran # (Auto) (0.00-0.02) K/uL Neut # (Auto) (1.4-6.5) K/uL Lymph # (Auto) (1.2-3.4) K/uL [place] # (Auto) (0.11-0.59) K/uL Eos # (Auto) (0-0.5) K/uL Baso # (Auto) (0-0.2) K/uL Absolute Nucleated RBC (0-0) K/uL Nucleated RBC % (auto) % ESR (0-21) mm/hr VBG pH (7.36-7.41) VBG pCO2 (38-50) mmHg VBG pO2 mmHg VBG HCO3 mmol/L VBG O2 Saturation % VBG Base Excess mEq/L Barometric Pressure mm/Hg Sodium (136-145) mmol/L Potassium (3.5-5.1) mmol/L Chloride (98-107) mmol/L Carbon Dioxide (21-32) mmol/L Anion Gap (3-11) BUN (7-18) mg/dl Creatinine (0.6-1.2) mg/dl Est Cr Clr Drug Dosing ml/min Est GFR ( Amer) Est GFR (Non-Af Amer) BUN/Creatinine Ratio (10-20) Glucose (70-99) mg/dl POC Glucose 77 (70-99) Lactate 3.9 H* (0.4-2.0) mmol/L Calcium (8.5-10.1) mg/dl Phosphorus (2.5-4.9) mg/dl Magnesium (1.8-2.4) mg/dl Total Bilirubin (0.2-1) mg/dl Direct Bilirubin (0-0.2) mg/dl AST (15-37) U/L ALT (12-78) U/L Alkaline Phosphatase (45-117) U/L Troponin I (0-0.045) ng/ml Total Protein (6.4-8.2) gm/dl Albumin (3.4-5.0) gm/dl Urine Color Urine Appearance (Clear) Urine pH (4.5-7.5) Ur Specific [place] (1.000-1.030) Urine Protein (Negative) Urine Glucose (UA) (Negative) Urine Ketones (Negative) Urine Blood (Negative) Urine Nitrite (Negative) Urine Bilirubin (Negative) Urine Urobilinogen (Negative) Ur Leukocyte Esterase (Negative) Urine WBC (Auto) (0-5) /hpf Urine RBC (Auto) (0-4) /hpf U Hyaline Cast (Auto) (0-5) /lpf U Epithel Cells (Auto) (0-5) /lpf Urine Bacteria (Auto) (Negative) Calcium Oxalate Crystal (None Prsent) Granular Casts (0) /lpf Digoxin 1.0 (0.8-2.0) ng/ml 08/02/18 08/02/18 08/02/18 Range/Units 12:05 12:05 12:05 WBC (4.8-10.8) K/uL RBC (4.2-5.4) M/uL Hgb (12.0-16.0) g/dL Hct (37-47) % MCV (80-100) fL MCH (25-34) pg MCHC (32-36) g/dL RDW Std Deviation (36.4-46.3) fL RDW Coeff of Logan (11.5-14.5) % Plt Count (130-400) K/uL MPV (7.4-10.4) fL Immature Gran % (Auto) % Neut % (Auto) % Lymph % (Auto) % [place] % (Auto) % Eos % (Auto) % Baso % (Auto) % Immature Gran # (Auto) (0.00-0.02) K/uL Neut # (Auto) (1.4-6.5) K/uL Lymph # (Auto) (1.2-3.4) K/uL [place] # (Auto) (0.11-0.59) K/uL Eos # (Auto) (0-0.5) K/uL Baso # (Auto) (0-0.2) K/uL Absolute Nucleated RBC (0-0) K/uL Nucleated RBC % (auto) % ESR (0-21) mm/hr VBG pH 7.28 L (7.36-7.41) VBG pCO2 50 (38-50) mmHg VBG pO2 32 mmHg VBG HCO3 23 mmol/L VBG O2 Saturation < 60.0 % VBG Base Excess -4.5 mEq/L Barometric Pressure 735.0 mm/Hg Sodium 134 L (136-145) mmol/L Potassium 4.0 D (3.5-5.1) mmol/L Chloride 99 (98-107) mmol/L Carbon Dioxide 21 (21-32) mmol/L Anion Gap 14.0 H (3-11) BUN 43 H (7-18) mg/dl Creatinine 2.48 H (0.6-1.2) mg/dl Est Cr Clr Drug Dosing 32.6 ml/min Est GFR ( Amer) 24.3 Est GFR (Non-Af Amer) 21.0 BUN/Creatinine Ratio 17.4 (10-20) Glucose 269 H (70-99) mg/dl POC Glucose (70-99) Lactate 6.8 H* (0.4-2.0) mmol/L Calcium 9.0 (8.5-10.1) mg/dl Phosphorus (2.5-4.9) mg/dl Magnesium (1.8-2.4) mg/dl Total Bilirubin 2.4 H (0.2-1) mg/dl Direct Bilirubin 1.5 H (0-0.2) mg/dl AST 730 H (15-37) U/L ALT 251 H (12-78) U/L Alkaline Phosphatase 155 H (45-117) U/L Troponin I < 0.015 (0-0.045) ng/ml Total Protein 8.0 (6.4-8.2) gm/dl Albumin 3.3 L (3.4-5.0) gm/dl Urine Color Urine Appearance (Clear) Urine pH (4.5-7.5) Ur Specific [place] (1.000-1.030) Urine Protein (Negative) Urine Glucose (UA) (Negative) Urine Ketones (Negative) Urine Blood (Negative) Urine Nitrite (Negative) Urine Bilirubin (Negative) Urine Urobilinogen (Negative) Ur Leukocyte Esterase (Negative) Urine WBC (Auto) (0-5) /hpf Urine RBC (Auto) (0-4) /hpf U Hyaline Cast (Auto) (0-5) /lpf U Epithel Cells (Auto) (0-5) /lpf Urine Bacteria (Auto) (Negative) Calcium Oxalate Crystal (None Prsent) Granular Casts (0) /lpf Digoxin (0.8-2.0) ng/ml 08/02/18 08/02/18 08/02/18 Range/Units 12:05 11:22 10:30 WBC 13.31 H (4.8-10.8) K/uL RBC 4.15 L (4.2-5.4) M/uL Hgb 12.1 (12.0-16.0) g/dL Hct 36.3 L (37-47) % MCV 87.5 (80-100) fL MCH 29.2 (25-34) pg MCHC 33.3 (32-36) g/dL RDW Std Deviation 49.4 H (36.4-46.3) fL RDW Coeff of [place] 15.6 H (11.5-14.5) % Plt Count 242 (130-400) K/uL MPV 10.0 (7.4-10.4) fL Immature Gran % (Auto) 0.5 % Neut % (Auto) 79.4 % Lymph % (Auto) 15.1 % [place] % (Auto) 5.0 % Eos % (Auto) 0.0 % Baso % (Auto) 0.0 % Immature Gran # (Auto) 0.07 H (0.00-0.02) K/uL Neut # (Auto) 10.56 H (1.4-6.5) K/uL Lymph # (Auto) 2.01 (1.2-3.4) K/uL [place] # (Auto) 0.67 H (0.11-0.59) K/uL Eos # (Auto) 0.00 (0-0.5) K/uL Baso # (Auto) 0.00 (0-0.2) K/uL Absolute Nucleated RBC 0.17 H (0-0) K/uL Nucleated RBC % (auto) 1.3 % ESR (0-21) mm/hr VBG pH (7.36-7.41) VBG pCO2 (38-50) mmHg VBG pO2 mmHg VBG HCO3 mmol/L VBG O2 Saturation % VBG Base Excess mEq/L Barometric Pressure mm/Hg Sodium (136-145) mmol/L Potassium (3.5-5.1) mmol/L Chloride (98-107) mmol/L Carbon Dioxide (21-32) mmol/L Anion Gap (3-11) BUN (7-18) mg/dl Creatinine (0.6-1.2) mg/dl Est Cr Clr Drug Dosing ml/min Est GFR ( Amer) Est GFR (Non-Af Amer) BUN/Creatinine Ratio (10-20) Glucose (70-99) mg/dl POC Glucose 263 H (70-99) Lactate (0.4-2.0) mmol/L Calcium (8.5-10.1) mg/dl Phosphorus (2.5-4.9) mg/dl Magnesium (1.8-2.4) mg/dl Total Bilirubin (0.2-1) mg/dl Direct Bilirubin (0-0.2) mg/dl AST (15-37) U/L ALT (12-78) U/L Alkaline Phosphatase (45-117) U/L Troponin I (0-0.045) ng/ml Total Protein (6.4-8.2) gm/dl Albumin (3.4-5.0) gm/dl Urine Color Yellow Urine Appearance Turbid H (Clear) Urine pH 5.0 (4.5-7.5) Ur Specific [place] 1.013 (1.000-1.030) Urine Protein Negative (Negative) Urine Glucose (UA) 2+ H (Negative) Urine Ketones Negative (Negative) Urine Blood 3+ H (Negative) Urine Nitrite Negative (Negative) Urine Bilirubin Negative (Negative) Urine Urobilinogen Negative (Negative) Ur Leukocyte Esterase 3+ H (Negative) Urine WBC (Auto) 5-10 H (0-5) /hpf Urine RBC (Auto) >30 H (0-4) /hpf U Hyaline Cast (Auto) 0 (0-5) /lpf U Epithel Cells (Auto) >30 H (0-5) /lpf Urine Bacteria (Auto) 1+ H (Negative) Calcium Oxalate Crystal Present H (None Prsent) Granular Casts 1-5 H (0) /lpf Digoxin (0.8-2.0) ng/ml Diagnostic Findings I reviewed the echo report (1) Diabetes Diabetes mellitus type: type 2 Diabetes mellitus 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
[2018-08-03] MEDS: INSULIN ASPART 100 UNITS/ML 3 ML PEN SC SCH ×4 (07:42→20:20)
[2018-08-03] MEDS: DOCUSATE SODIUM 100 MG CAP PO SCH ×2 (08:26→20:24)
[2018-08-03] MEDS: HEPARIN SOD 5,000 UNIT/0.5 ML VIAL SQ SCH (08:27)
[2018-08-03] MEDS: PANTOprazole 40 MG TAB PO SCH (08:27)
[2018-08-03] MEDS: ATORVASTATIN 10 MG TAB PO SCH (08:28)
[2018-08-03] MEDS: METOPROLOL SUCC 25MG EXT REL TAB PO SCH (08:30)
--- NOTE | 2018-08-03 09:47 | Nephrology Progress Note ---
Date of Service August 03, 2018 Assessment & Plan (1) Acute kidney injury: 57-year-old female with severe cardiomyopathy, admitted to the hospital with shortness of breath. No known history of chronic kidney disease, overnight renal function rapidly worsened, developed acute kidney injury and hyperkalemia. Was anuric over last 12 hours. Her blood pressure has been low since yesterday. Acute kidney injury most likely secondary to hemodynamically mediated ATN with severe hypertension in the setting cardiomyopathy and low ejection fraction. Can't exclude possibility for postrenal obstruction. Clinically she does not look to be volume overloaded. Unclear etiology for persistent shortness of breath, although she has low EF however wonder whether she has any pulmonary etiology including pneumonitis, chronic pulmonary embolism ( seems unlikely as she has been on anticoagulation), interstitial lung disease or others, Renal ultrasound and urinalysis unremarkable. Renal function improve significantly, creatinine down to 1.7, hyperkalemia resolved. Has been having decent urine output after 1 dose of Bumex 4 milligram yesterday morning. Right heart catheterization showed severe pulmonary hypertension and left renal failure. --remove right IJ dialysis catheter, no indication for dialysis at this time. --the continue to hold diuretics for now as she is having decent urine output, no clear sign of volume overload however eventually diuretics can be resumed at her home dose. Will follow Thank you for allowing me to participate in your patient's care. It was a pleasure to see Grazyna (2) Hyperkalemia: (3) Severe mitral regurgitation: (4) Morbid obesity: (5) Diabetes: (6) Acute on chronic systolic heart failure: (7) Atrial fibrillation with RVR: Subjective Grazyna was seen and examined in ICU this am. Overall feeling better but she has been discomfort at right neck area catheter site. Shortness of Breath improve significantly, denies chest pain. Blood pressure stable. Renal function improving. Has decent urine output. Hyperkalemia resolved. 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
--- NOTE | 2018-08-03 11:28 | Cardiology Progress Note ---
Date of Service August 03, 2018 Assessment & Plan (1) Atrial fibrillation: She continues to have elevated rates. Despite escalating doses of beta- blockade if had difficulty controlling her heart rate. Not a good candidate for diltiazem as she has a significant cardiomyopathy. Additionally, a digoxin was discontinued in the setting of renal dysfunction. Think the best solution for her would be AV node ablation with upgrade of her current device to a biventricular ICD. I did discuss the risks benefits and alternatives with the patient. Appear clinical condition is improving and we may have an opportunity to get this accomplished tomorrow. Subsequently we can transition her off of heparin in back to oral anticoagulation. (2) Pericardial effusion: This looks slightly smaller on her echocardiogram performed on admission. I do not believe this is causing any hemodynamic compromise. The etiology is unclear but there is a suspicion for connective tissue disorder. Right heart catheterization this admission did not reveal evidence tamponade. (3) Chest pain: This is not related to an acute coronary syndrome. Possibly related to an element of pericarditis or even musculoskeletal. Improved. She has not had much of this discomfort over the past couple of days. (4) Congestive heart failure with cardiomyopathy: Her pulmonary capillary wedge pressure is mildly elevated. She did affect some diuresis yesterday on high doses of bumetanide. Think we will watch her urine output over the course of today and administer another dose this afternoon if required. We may have an opportunity measure her wedge pressure again tomorrow during her procedure. (5) Nonischemic cardiomyopathy: Will continue on beta-blockade. Once her hemodynamics appear to be stable we will consider addition of ARB or possibly Entresto (6) Severe mitral regurgitation: I believe this is most likely functional given her dilated cardiomyopathy. However, there did not appear to be good options for addressing this issue at this time. He likely does play a role in her overall poor condition. (7) Acute kidney injury: Improved. Electrolytes improved. It does not appear like she will require dialysis. Consider removing her IJ dialysis catheter. (8) Pulmonary hypertension: Some this is certainly related to left heart failure. However, her degree of dyspnea and elevation in her pulmonary pressures seem somewhat unusual for simple left-sided failure. Especially given the filling pressures noted on right heart catheterization today. If we do not see significant improvement in short order, may due to explore other causes for her dyspnea. Subjective This morning the patient claims to be feeling better. She seems to imply that her breathing is somewhat better. She is able lie more flat. She has some discomfort at the catheter site in her neck, but has not had her left sided chest pain and a few days. Physical Exam Vital Signs (Past 24 Hours): Last Vital Signs Temp 36.7 C 08/03/18 08:00 Pulse 126 H 08/03/18 09:00 Resp 20 08/03/18 09:00 BP 117/48 L 08/03/18 09:00 Pulse Ox 100 08/03/18 09:00 Physical Exam: She is alert and oriented x3. Mood affect appear normal. She answered all questions appropriately. HEENT: Sclerae are anicteric. Pupils are equal and reactive to light and accommodation. Extraocular movements were intact. Neuro: Cranial nerves intact Neck: Right IJ dialysis catheter in place Lungs: Lungs are clear to auscultation bilaterally. There are no rales wheezes or rhonchi. She has normal respiratory effort without use of accessory muscles. There is normal pulmonary excursion. Cardiac: The rhythm was irregular. S1 and S2 were normal. Holosystolic murmur variable intensity. The PMI was not markedly displaced on palpation. Extremities: Patient has bilateral radial pulses that are equal in intensity. There is no evidence cyanosis or clubbing. There was no evidence of significant peripheral edema bilaterally. Skin: There are no rashes noted on examination today. Results & Data Laboratory Results Abnormal Lab Results 08/02/18 08/02/18 08/02/18 10:30 11:22 12:05 WBC 13.31 H RBC 4.15 L Hgb 12.1 Hct 36.3 L MCV 87.5 MCH 29.2 MCHC 33.3 RDW Std Deviation 49.4 H RDW Coeff of Logan 15.6 H Plt Count 242 MPV 10.0 Immature Gran % (Auto) 0.5 Neut % (Auto) 79.4 Lymph % (Auto) 15.1 Grainger % (Auto) 5.0 Eos % (Auto) 0.0 Baso % (Auto) 0.0 Immature Gran # (Auto) 0.07 H Neut # (Auto) 10.56 H Lymph # (Auto) 2.01 Grainger # (Auto) 0.67 H Eos # (Auto) 0.00 Baso # (Auto) 0.00 Absolute Nucleated RBC 0.17 H Nucleated RBC % (auto) 1.3 ESR VBG pH VBG pCO2 VBG pO2 VBG HCO3 VBG O2 Saturation VBG Base Excess Barometric Pressure Sodium Potassium Chloride Carbon Dioxide Anion Gap BUN Creatinine Est Cr Clr Drug Dosing Est GFR ( Amer) Est GFR (Non-Af Amer) BUN/Creatinine Ratio Glucose POC Glucose 263 H Lactate Calcium Phosphorus Magnesium Total Bilirubin Direct Bilirubin AST ALT Alkaline Phosphatase Troponin I Total Protein Albumin Urine Color Yellow Urine Appearance Turbid H Urine pH 5.0 Ur Specific [place] 1.013 Urine Protein Negative Urine Glucose (UA) 2+ H Urine Ketones Negative Urine Blood 3+ H Urine Nitrite Negative Urine Bilirubin Negative Urine Urobilinogen Negative Ur Leukocyte Esterase 3+ H Urine WBC (Auto) 5-10 H Urine RBC (Auto) >30 H U Hyaline Cast (Auto) 0 U Epithel Cells (Auto) >30 H Urine Bacteria (Auto) 1+ H Calcium Oxalate Crystal Present H Granular Casts 1-5 H Digoxin 08/02/18 08/02/18 08/02/18 12:05 12:05 12:05 WBC RBC Hgb Hct MCV MCH MCHC RDW Std Deviation RDW Coeff of Logan Plt Count MPV Immature Gran % (Auto) Neut % (Auto) Lymph % (Auto) Grainger % (Auto) Eos % (Auto) Baso % (Auto) Immature Gran # (Auto) Neut # (Auto) Lymph # (Auto) Grainger # (Auto) Eos # (Auto) Baso # (Auto) Absolute Nucleated RBC Nucleated RBC % (auto) ESR VBG pH 7.28 L VBG pCO2 50 VBG pO2 32 VBG HCO3 23 VBG O2 Saturation < 60.0 VBG Base Excess -4.5 Barometric Pressure 735.0 Sodium 134 L Potassium 4.0 D Chloride 99 Carbon Dioxide 21 Anion Gap 14.0 H BUN 43 H Creatinine 2.48 H Est Cr Clr Drug Dosing 32.6 Est GFR ( Amer) 24.3 Est GFR (Non-Af Amer) 21.0 BUN/Creatinine Ratio 17.4 Glucose 269 H POC Glucose Lactate 6.8 H* Calcium 9.0 Phosphorus Magnesium Total Bilirubin 2.4 H Direct Bilirubin 1.5 H AST 730 H ALT 251 H Alkaline Phosphatase 155 H Troponin I < 0.015 Total Protein 8.0 Albumin 3.3 L Urine Color Urine Appearance Urine pH Ur Specific [place] Urine Protein Urine Glucose (UA) Urine Ketones Urine Blood Urine Nitrite Urine Bilirubin Urine Urobilinogen Ur Leukocyte Esterase Urine WBC (Auto) Urine RBC (Auto) U Hyaline Cast (Auto) U Epithel Cells (Auto) Urine Bacteria (Auto) Calcium Oxalate Crystal Granular Casts Digoxin 08/02/18 08/02/18 08/02/18 12:05 16:48 18:24 WBC RBC Hgb Hct MCV MCH MCHC RDW Std Deviation RDW Coeff of Logan Plt Count MPV Immature Gran % (Auto) Neut % (Auto) Lymph % (Auto) Grainger % (Auto) Eos % (Auto) Baso % (Auto) Immature Gran # (Auto) Neut # (Auto) Lymph # (Auto) Grainger # (Auto) Eos # (Auto) Baso # (Auto) Absolute Nucleated RBC Nucleated RBC % (auto) ESR VBG pH VBG pCO2 VBG pO2 VBG HCO3 VBG O2 Saturation VBG Base Excess Barometric Pressure Sodium Potassium Chloride Carbon Dioxide Anion Gap BUN Creatinine Est Cr Clr Drug Dosing Est GFR ( Amer) Est GFR (Non-Af Amer) BUN/Creatinine Ratio Glucose POC Glucose 77 Lactate 3.9 H* Calcium Phosphorus Magnesium Total Bilirubin Direct Bilirubin AST ALT Alkaline Phosphatase Troponin I Total Protein Albumin Urine Color Urine Appearance Urine pH Ur Specific [place] Urine Protein Urine Glucose (UA) Urine Ketones Urine Blood Urine Nitrite Urine Bilirubin Urine Urobilinogen Ur Leukocyte Esterase Urine WBC (Auto) Urine RBC (Auto) U Hyaline Cast (Auto) U Epithel Cells (Auto) Urine Bacteria (Auto) Calcium Oxalate Crystal Granular Casts Digoxin 1.0 08/02/18 08/02/18 08/02/18 20:18 20:26 23:42 WBC RBC Hgb Hct MCV MCH MCHC RDW Std Deviation RDW Coeff of Logan Plt Count MPV Immature Gran % (Auto) Neut % (Auto) Lymph % (Auto) Grainger % (Auto) Eos % (Auto) Baso % (Auto) Immature Gran # (Auto) Neut # (Auto) Lymph # (Auto) Grainger # (Auto) Eos # (Auto) Baso # (Auto) Absolute Nucleated RBC Nucleated RBC % (auto) ESR VBG pH VBG pCO2 VBG pO2 VBG HCO3 VBG O2 Saturation VBG Base Excess Barometric Pressure Sodium 136 Potassium 3.8 Chloride 99 Carbon Dioxide 27 Anion Gap 10.0 BUN 41 H Creatinine 1.96 H D Est Cr Clr Drug Dosing 41.3 Est GFR ( Amer) 32.3 Est GFR (Non-Af Amer) 27.9 BUN/Creatinine Ratio 20.7 H Glucose 103 H POC Glucose 95 91 Lactate Calcium 8.6 Phosphorus Magnesium Total Bilirubin Direct Bilirubin AST ALT Alkaline Phosphatase Troponin I 0.198 H* Total Protein Albumin Urine Color Urine Appearance Urine pH Ur Specific [place] Urine Protein Urine Glucose (UA) Urine Ketones Urine Blood Urine Nitrite Urine Bilirubin Urine Urobilinogen Ur Leukocyte Esterase Urine WBC (Auto) Urine RBC (Auto) U Hyaline Cast (Auto) U Epithel Cells (Auto) Urine Bacteria (Auto) Calcium Oxalate Crystal Granular Casts Digoxin 08/03/18 08/03/18 08/03/18 04:43 04:43 04:43 WBC 13.84 H RBC 4.21 Hgb 11.9 L Hct 36.6 L MCV 86.9 MCH 28.3 MCHC 32.5 RDW Std Deviation 49.1 H RDW Coeff of Logan 15.7 H Plt Count 254 MPV 9.5 Immature Gran % (Auto) 0.4 Neut % (Auto) 66.5 Lymph % (Auto) 24.4 Grainger % (Auto) 7.9 Eos % (Auto) 0.5 Baso % (Auto) 0.3 Immature Gran # (Auto) 0.05 H Neut # (Auto) 9.20 H Lymph # (Auto) 3.38 Grainger # (Auto) 1.10 H Eos # (Auto) 0.07 Baso # (Auto) 0.04 Absolute Nucleated RBC 0.15 H Nucleated RBC % (auto) 1.1 ESR 40 H VBG pH VBG pCO2 VBG pO2 VBG HCO3 VBG O2 Saturation VBG Base Excess Barometric Pressure Sodium 134 L Potassium 4.3 Chloride 98 Carbon Dioxide 27 Anion Gap 9.0 BUN 41 H Creatinine 1.79 H Est Cr Clr Drug Dosing 45.2 Est GFR ( Amer) 36.1 Est GFR (Non-Af Amer) 31.1 BUN/Creatinine Ratio 22.7 H Glucose 84 POC Glucose Lactate Calcium 7.9 L Phosphorus 4.4 Magnesium 2.1 Total Bilirubin 1.4 H Direct Bilirubin 0.8 H AST 1234 H ALT 503 H Alkaline Phosphatase 132 H Troponin I 0.126 H* Total Protein 7.0 Albumin 3.0 L Urine Color Urine Appearance Urine pH Ur Specific [place] Urine Protein Urine Glucose (UA) Urine Ketones Urine Blood Urine Nitrite Urine Bilirubin Urine Urobilinogen Ur Leukocyte Esterase Urine WBC (Auto) Urine RBC (Auto) U Hyaline Cast (Auto) U Epithel Cells (Auto) Urine Bacteria (Auto) Calcium Oxalate Crystal Granular Casts Digoxin 08/03/18 08/03/18 08/03/18 04:43 07:28 10:06 WBC RBC Hgb Hct MCV MCH MCHC RDW Std Deviation RDW Coeff of Logan Plt Count MPV Immature Gran % (Auto) Neut % (Auto) Lymph % (Auto) Grainger % (Auto) Eos % (Auto) Baso % (Auto) Immature Gran # (Auto) Neut # (Auto) Lymph # (Auto) Grainger # (Auto) Eos # (Auto) Baso # (Auto) Absolute Nucleated RBC Nucleated RBC % (auto) ESR VBG pH VBG pCO2 VBG pO2 VBG HCO3 VBG O2 Saturation VBG Base Excess Barometric Pressure Sodium Potassium Chloride Carbon Dioxide Anion Gap BUN Creatinine Est Cr Clr Drug Dosing Est GFR ( Amer) Est GFR (Non-Af Amer) BUN/Creatinine Ratio Glucose POC Glucose 95 108 H Lactate 2.4 H* Calcium Phosphorus Magnesium Total Bilirubin Direct Bilirubin AST ALT Alkaline Phosphatase Troponin I Total Protein Albumin Urine Color Urine Appearance Urine pH Ur Specific [place] Urine Protein Urine Glucose (UA) Urine Ketones Urine Blood Urine Nitrite Urine Bilirubin Urine Urobilinogen Ur Leukocyte Esterase Urine WBC (Auto) Urine RBC (Auto) U Hyaline Cast (Auto) U Epithel Cells (Auto) Urine Bacteria (Auto) Calcium Oxalate Crystal Granular Casts Digoxin ECG Additional Comments: Telemetry demonstrates atrial fibrillation with persistently high rates (1) Atrial fibrillation Atrial fibrillation type: unspecified Qualified Code(s): I48.91 - Unspecified atrial fibrillation (2) Chest pain Chest pain type: unspecified Qualified Code(s): R07.9 - Chest pain, uns pecified
[2018-08-03] MEDS ORDERED: RIVAROXABAN 15 MG TAB PO SCH (16:30)
[2018-08-03] MEDS ORDERED: SODIUM CHLORIDE 0.65% NA SOLN 45 ML (OCEAN) PRN (18:48)
[2018-08-03] MEDS: QUETIAPINE FUMARATE 300 MG TABLET PO SCH (20:19)
--- NOTE | 2018-08-03 22:17 | Hospitalist Progress Note ---
Date of Service August 03, 2018 Assessment & Plan (1) Acute kidney injury: Patient required emergent dialysis yesterday. Since then she has been making urine. It appears patient was likely having cardiorenal failure. Doubt that this was iatrogenic. Riky transfer patient out of the ICU. Patient will likely be ablated tomorrow. Will continue to monitor Is and Os. (2) Hyperkalemia: Requried dialysis on 08/02 (3) Atrial fibrillation with RVR: Patient with history of the same. She was cardioverted in June. Presents today in AF with RVR. Most likely contributing to her SOB, possibly some CHF in setting of poor rate control. She reports compliance with her medications. HR improved slightly with Metoprolol given in ER. Digoxin level=0.4 will continue betablocker. -Continue Rivaroxaban for anticoagulation Appreciate cardiac input. will need ablation in AM. (4) Shortness of breath: Patient appears to be improving due to dialysis and improved urine output. Will continue to monitor. (5) Acute on chronic systolic heart failure: Patient with history of NICM with poor EF. Possibly in mild failure now - SOB, PVC on CXR -Supplemental O2 as needed -Echo as above (6) Pericardial effusion: History of the same. Suspected pericarditis during last hospital stay. Does not appear to have tamponade at this time - no JVD, heart sounds pronounced, BP maintained. Autoimmune workup during last hospital stay with Positive JOHNSON, 1:80 in nucleolar pattern (most commonly associated with scleroderma, CREST, systemic sclerosis and Sjogren's). -Repeat echo to assess effusion -Continue Colchicine 0.6mg po BID -Patient is to followup with Rheumatology in October 2018 as scheduled (7) Diabetes: Blood sugar well controlled at present. Patient is on Metformin at home. A1C=6 in 04/2018 -Hold Metformin -Lantus 8u BID -ISS based on weight -Continue to monitor (8) Chronic respiratory failure with hypoxia: No respiratory distress at present. Subjective SOB. Adequate oxygenation -Supplemental O2 as needed (9) Morbid obesity: Noted. Encourage lifestyle modification, diet and exercise (10) Schizoaffective disorder: Stable. -Continue Seroquel -Continue Trazodone (11) GERD (gastroesophageal reflux disease): Stable. -Continue Omeprazole (12) Hypokalemia: Now hyperkalemic (13) COPD (chronic obstructive pulmonary disease): Stable. No wheeze. Adequate oxygenation on NC -Albuterol PRN F/E/N - Heplock. Diuresis as above. Monitor daily labs and replete electrolytes as needed. CC/Heart healthy diet as tolerated Ppx - Anticoagulated with Rivaroxaban, continue home omeprazole Code - Full per discussion with patient Dispo -Admit to PCU (14) Electrolyte imbalance: As noted above. (15) DVT prophylaxis: Patient anticoagulated with Xarelto Ambulate as tolerated No asymmetrical edema Continue to monitor Spent 35 minutes in the management of patient. Subjective Patient reports feeling better today. Patient reports breathing better. She states she improved after dialysis. She reports being able to make urine. Patient is ok to be transferred out of the ICU. Physical Exam Vital Signs (Past 24 Hours): Last Vital Signs Temp 35.9 C L 08/03/18 19:58 Pulse 114 H 08/03/18 19:58 Resp 20 08/03/18 19:58 BP 121/86 08/03/18 19:58 Pulse Ox 100 08/03/18 19:58 Physical Exam: GENERAL : No distress. EYES: No icterus, gaze conjugate NOSE: No evidence of epistaxis MOUTH: No lesions or candidiasis. No facial droop. Tongue is midline NECK: Supple. No carotid bruits LUNGS: CTA B/L, no wheezes, rales or rhonchi. using accesory muscles to breath. HEART: Irregular, irregular, tachycardic ABDOMEN: Soft, NT, ND, BS Present EXTREMITIES: No LE edema, pedal pulses intact. All extremities are cool to touch NEURO: A&OX3 (1) Diabetes Diabetes mellitus complication status: without complication Diabetes mellitus baseball glove shaper insulin use: without baseball glove shaper use Diabetes mellitus type: type 2 Qualified Code(s): E11.9 - Type 2 diabetes mellitus without complications (2) Schizoaffective disorder Schizoaffective disorder type: other Qualified Code(s): F25.8 - Other schizoaffective disorders (3) COPD (chronic obstructive pulmonary disease) COPD type: unspecified COPD Qualified Code(s): J44.9 - Chronic obstructive pulmonary disease, unspecified (4) GERD (gastroesophageal reflux disease) Esophagitis presence: esophagitis presence not specified Qualified Code(s): K21.9 - Gastro-esophageal reflux disease without esophagitis
[2018-08-04] MEDS: INSULIN ASPART 100 UNITS/ML 3 ML PEN SC SCH ×4 (06:05→21:21)
[2018-08-04 07:04] LABS: BUN Creatinine Ratio 34.6 (10-20); Calcium 8.3 mg/dl (8.5-10.1); Creatinine Clr Calc Pharmacy 72.9 ml/min; Est GFR (African American) 63.6; Est GFR (Non-African American) 54.9; Potassium 3.8 mmol/L (3.5-5.1)
[2018-08-04 07:13] LABS: Phosphorus 2.9 mg/dl (2.5-4.9)
--- NOTE | 2018-08-04 08:36 | Nephrology Progress Note ---
Date of Service August 04, 2018 Assessment & Plan (1) Acute kidney injury: 57-year-old female with severe cardiomyopathy, admitted to the hospital with shortness of breath. No known history of chronic kidney disease, overnight renal function rapidly worsened, developed acute kidney injury and hyperkalemia. Was anuric over last 12 hours. Her blood pressure has been low since yesterday. Acute kidney injury most likely secondary to hemodynamically mediated ATN with severe hypertension in the setting cardiomyopathy and low ejection fraction. Can't exclude possibility for postrenal obstruction. Clinically she does not look to be volume overloaded. Unclear etiology for persistent shortness of breath, although she has low EF however wonder whether she has any pulmonary etiology including pneumonitis, chronic pulmonary embolism ( seems unlikely as she has been on anticoagulation), interstitial lung disease or others, Renal ultrasound and urinalysis unremarkable. Renal function improve significantly, creatinine down to 1.7, hyperkalemia resolved. Has been having decent urine output after 1 dose of Bumex 4 milligram yesterday morning. Right heart catheterization showed severe pulmonary hypertension and left renal failure. KIRSTIN and hyperkalemia resolved. Volume status and BP acceptable. --remove right IJ dialysis catheter, no indication for dialysis at this time. --the continue to hold diuretics for now as she is having decent urine output, no clear sign of volume overload however eventually diuretics can be resumed at her home dose. Will sign off. (2) Hyperkalemia: (3) Severe mitral regurgitation: (4) Morbid obesity: (5) Diabetes: (6) Acute on chronic systolic heart failure: (7) Atrial fibrillation with RVR: Subjective Grazyna was seen and examined in ICU this am. Overall feeling better. Shortness of Breath improve significantly, denies chest pain. Blood pressure stable. Renal function improved, KIRSTIN resolved. Has decent urine output. Hyperkalemia resolved. Physical Exam Vital Signs (Past 24 Hours): Last Vital Signs Temp 36.5 C 08/04/18 07:18 Pulse 77 08/04/18 07:18 Resp 17 08/04/18 07:18 BP 102/71 08/04/18 07:18 Pulse Ox 96 08/04/18 07:18 Constitutional: WD/WN, vitals as above Respiratory: normal respiratory effort, lungs clear to auscultation Cardiovascular: RRR, no murmur, no edema Gastrointestinal (Abdomen): normal bowel sounds, soft, nontender, no hepatosplenomegaly Neurologic: moves all extremities and awake Psychiatric: A+Ox3, euthymic affect (1) Diabetes Diabetes mellitus type: type 2 Diabetes mellitus custodial insulin use: without intermediate project manager use Diabetes mellitus complication status: without complication Qualified Code(s): E11.9 - Type 2 diabetes mellitus without complications
[2018-08-04] MEDS ORDERED: LIDOCAINE HCL 1% 20 ML VIAL ONE (10:43)
[2018-08-04] MEDS ORDERED: BUPIVACAINE 0.25% 30 ML VIAL ONE (10:43)
[2018-08-04] MEDS ORDERED: BACITRACIN INJ 50,000 UNIT VIAL ONE (10:44)
--- NOTE | 2018-08-04 10:53 | Anesthesiology Consultation ---
Date of Service August 04, 2018 Assessment & Plan Chart Review Chart Review: Acceptable Risk for Surgery Consults Requested none History Surgery Operation Date: 08/02/18 11:05 Proposed Procedures p Right Heart Cath Only - Naeem Pelayo MD Operation Date: 08/04/18 09:50 Proposed Procedures p AV Node Ablation, and Upgrade ICD to BiVentricular ICD with Anesthesia - Naeem Pelayo MD Height/Weight Height: 5 ft 8 in Weight: 110 kg Allergies Allergy/AdvReac Type Severity Reaction Status Date / Time fentanyl Allergy Mild RASH,ITCHIN Verified 07/31/18 09:49 G Medications Home Medications Medication Instructions Recorded Confirmed Last Taken atorvastatin 10 mg PO DAILY 05/31/18 07/31/18 06/27/18 digoxin 0.125 mg PO DAILY 05/31/18 07/31/18 06/27/18 diphenhydramine HCl [Benadryl] 25 mg PO QAM 05/31/18 07/31/18 06/27/18 docusate sodium [Colace] 100 mg PO BID 05/31/18 07/31/18 06/27/18 gabapentin 600 mg PO BID 05/31/18 07/31/18 06/27/18 hydroxyzine pamoate [Vistaril] 50 mg PO QPM 05/31/18 07/31/18 06/27/18 metformin 500 mg PO BID 05/31/18 07/31/18 06/27/18 omeprazole 20 mg PO DAILY 05/31/18 07/31/18 06/27/18 quetiapine [Seroquel] 50 mg PO DAILY 05/31/18 07/31/18 06/27/18 quetiapine [Seroquel] 300 mg PO HS 05/31/18 07/31/18 06/27/18 rivaroxaban [Xarelto] 20 mg PO DAILY 05/31/18 07/31/18 06/27/18 albuterol sulfate 2 inha INH QID PRN #6.7 gm 06/12/18 07/31/18 06/27/18 potassium chloride 20 meq PO DAILY 06/28/18 07/31/18 06/27/18 colchicine [Colcrys] 0.6 mg PO BID #60 tab 07/06/18 07/31/18 Unknown metoprolol succinate [Toprol XL] 50 mg PO DAILY #30 tab 07/06/18 07/31/18 Unknown Lasix 40 mg PO BID 07/31/18 07/31/18 Unknown metoprolol succinate 25 mg PO DAILY 07/31/18 07/31/18 Unknown trazodone 200 mg PO HS 07/31/18 07/31/18 Unknown Active Medications Generic Name Dose Route Start Last Admin Trade Name Freq PRN Reason Stop Dose Admin Acetaminophen 650 mg 07/31/18 11:40 08/03/18 20:19 Tylenol PO 08/30/18 11:39 650 mg Q4H PRN Administration Pain or Fever Albuterol 1 - 2 puffs 07/31/18 11:40 08/01/18 09:59 Ventolin Hfa INH 08/30/18 11:39 2 puffs QID PRN Administration shortness of breath or wheezing Atorvastatin Calcium 10 mg 08/01/18 09:00 08/03/18 08:28 Lipitor PO 08/31/18 08:59 10 mg DAILY VICTOR M Administration Dextrose 25 - 50 ml 07/31/18 11:40 08/02/18 07:23 Dextrose 50% IV 08/30/18 11:39 50 ml UD PRN Administration Hypoglycemia Protocol Protocol Docusate Sodium 100 mg 07/31/18 21:00 08/03/18 20:24 Colace PO 08/30/18 20:59 100 mg BID VICTOR M Administration Gabapentin 600 mg 07/31/18 21:00 08/02/18 08:58 Neurontin PO 08/30/18 20:59 600 mg BID VICTOR M Administration Hydroxyzine HCl 50 mg 07/31/18 21:00 08/01/18 20:25 Vistaril PO 08/30/18 20:59 50 mg QPM VICTOR M Administration Insulin Aspart 0 units 07/31/18 11:40 08/04/18 06:05 Novolog Flexpen SC 08/30/18 11:39 Not Given ACHS VICTOR M Metoprolol Succinate 75 mg 08/03/18 09:00 08/03/18 08:30 Toprol Xl PO 09/02/18 08:59 75 mg DAILY VICTOR M Administration Pantoprazole Sodium 40 mg 08/01/18 09:00 08/03/18 08:27 Protonix PO 08/31/18 08:59 40 mg DAILY VICTOR M Administration Quetiapine Fumarate 50 mg 08/01/18 09:00 08/02/18 10:09 Seroquel PO 08/31/18 08:59 Not Given DAILY VICTOR M Quetiapine Fumarate 300 mg 07/31/18 21:00 08/03/18 20:19 Seroquel PO 08/30/18 20:59 300 mg HS VICTOR M Administration Trazodone HCl 200 mg 07/31/18 21:00 08/01/18 20:25 Desyrel PO 08/30/18 20:59 200 mg HS VICTOR M Administration Past Medical History Medical History Asthma (Chronic) CHF (congestive heart failure) (Chronic) 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 Other Hypertension Past Surgical History Surgical History Pacemaker (Chronic) AICD (automatic cardioverter/defibrillator) present S/P ORIF (open reduction internal fixation) fracture ankle, left S/P tubal ligation Social History Smoking Status: Former smoker Smoking cigarettes per day: <1 ppd Hx Alcohol Use: No Alcohol type: hard liquor alcohol intake frequency: a few times a month Hx Substance Use: No Physical Exam Vital Signs Last Vital Signs Temp 36.6 C 08/04/18 10:45 Pulse 109 H 08/04/18 10:45 Resp 18 08/04/18 10:45 BP 114/81 08/04/18 10:45 Pulse Ox 99 08/04/18 10:45 Testing Laboratory Results 08/03/18 04:43 08/04/18 05:52 PT 13.3 Seconds (9.0-12.0) H 07/31/18 08:46 INR 1.3 (0.9-1.1) H 07/31/18 08:46 APTT 25.3 Seconds (21.0-31.0) 07/31/18 08:46 Urine Color Yellow 08/02/18 10:30 Urine Appearance Turbid (Clear) H 08/02/18 10:30 Urine pH 5.0 (4.5-7.5) 08/02/18 10:30 Ur Specific [place] 1.013 (1.000-1.030) 08/02/18 10:30 Urine Protein Negative (Negative) 08/02/18 10:30 Urine Glucose (UA) 2+ (Negative) H 08/02/18 10:30 Urine Ketones Negative (Negative) 08/02/18 10:30 Urine Nitrite Negative (Negative) 08/02/18 10:30 Ur Leukocyte Esterase 3+ (Negative) H 08/02/18 10:30 Urine WBC (Auto) 5-10 /hpf (0-5) H 08/02/18 10:30 Urine RBC (Auto) >30 /hpf (0-4) H 08/02/18 10:30 U Hyaline Cast (Auto) 0 /lpf (0-5) 08/02/18 10:30 U Epithel Cells (Auto) >30 /lpf (0-5) H 08/02/18 10:30 Urine Bacteria (Auto) 1+ (Negative) H 08/02/18 10:30 08/02/18 10:30 Urine Culture - Preliminary Urine,Straight Cath No growth - Less than 1,000 colonies/mL, Final report to follow. 08/04/18 08/03/18 07:45 23:41 POC Glucose 81 120 H
[2018-08-04] MEDS ORDERED: MIDAZOLAM HCL 1 MG/ML 2ML VIAL ONE (11:05)
[2018-08-04] MEDS ORDERED: CEFAZOLIN 250 MG/ML 1 GM VIAL ONE (11:13)
[2018-08-04] MEDS ORDERED: HEPARIN SOD (PORCINE) 1000 UNIT/ML 10 ML VIAL ONE (11:43)
[2018-08-04] MEDS ORDERED: LIDOCAINE HCL 2% 2 ML VIAL/AMP(20MG/ML) INFIL ONE (12:02)
[2018-08-04] MEDS ORDERED: PROPOFOL IV EMULSION 10 MG/ML 20 ML VIAL IV ONE ×2 (12:02→14:20)
[2018-08-04] MEDS ORDERED: BUMETANIDE SOLN 1 MG/4 ML VIAL IV ONE (14:33)
[2018-08-04] MEDS ORDERED: ACETAMINOPHEN 325 MG TAB PO PRN (15:26)
--- NOTE | 2018-08-04 15:26 | Post Operative Brief Note ---
Cardiology Brief Post Op Date of Surgery August 04, 2018 Pre & Post Diagnosis Operation Date: 08/02/18 11:05 <No data on this case meets the specified criteria> Operation Date: 08/04/18 09:50 <No data on this case meets the specified criteria> Procedure Attempted but unsuccessful ablation of AV node via right femoral vein access. Upgrade to biventricular ICD from single-chamber ICD. Infection Control Manager Guilherme Pelayo MD Environmental Health And Safety Intern None Estimated Blood Loss 30 Findings Consistent with Post-Op Diagnosis Continued AV jennifer conduction despite extensive ablation of the AV jennifer area. Successfu upgrade of single-chamber ICD to biventricular ICD. Disposition Accompanied Patient To Recovery: No Disposition: PCU Overlapping Procedure I was immediately available: during the entire case.
--- NOTE | 2018-08-04 16:22 | Anesthesiology Progress Note ---
Date of Service August 04, 2018 Anesthesia Post Procedure Vital Signs Vital Signs: Temp Pulse Pulse Pulse Resp BP BP 08/04/18 10:45 36.6 C 109 H 18 114/81 08/04/18 07:18 36.5 C 77 17 08/04/18 03:20 36.4 C L 08/04/18 02:30 111 H 18 98/56 L 08/03/18 23:45 36.2 C L 102 H 16 08/03/18 19:58 35.9 C L 114 H 20 08/03/18 18:36 117 H 25 H 96/67 L 08/03/18 17:01 118 H 20 83/65 L BP Pulse Ox 08/04/18 10:45 99 08/04/18 07:18 102/71 96 08/04/18 03:20 08/04/18 02:30 98 08/03/18 23:45 109/78 97 08/03/18 19:58 121/86 100 08/03/18 18:36 97 08/03/18 17:01 Notes Mental Status: alert / awake / arousable and participated in evaluation Patient Amnestic to Procedure: Yes Nausea / Vomiting: adequately controlled Pain: adequately controlled Airway Patency, RR, SpO2: stable & adequate BP & HR: stable & adequate Hydration State: stable & adequate Anesthetic Complications: no major complications apparent
[2018-08-04] MEDS: DOCUSATE SODIUM 100 MG CAP PO SCH ×2 (16:44→21:17)
[2018-08-04] MEDS: ATORVASTATIN 10 MG TAB PO SCH (16:44)
[2018-08-04] MEDS: DOCUSATE SODIUM/SENNA 50/8.6MG TAB PO SCH (16:45)
[2018-08-04] MEDS: PANTOprazole 40 MG TAB PO SCH (16:45)
[2018-08-04] MEDS: QUETIAPINE FUMARATE 25 MG TABLET PO SCH (16:47)
[2018-08-04] MEDS: METOPROLOL SUCC 25MG EXT REL TAB PO SCH (16:48)
[2018-08-04] MEDS ORDERED: LACTULOSE SYRUP 30 GM/45 ML UDP PO STA (18:39)
--- NOTE | 2018-08-04 19:08 | Procedure Note ---
Procedure Note Date of Service August 04, 2018 Note Procedure performed: Attempted ablation of AV node, upgrade of single-chamber ICD to biventricular ICD Staff matrix plater: Guilherme Pelayo MD Indication: Patient is a 57-year-old woman with a history of a nonischemic cardiomyopathy. She has been admitted on multiple occasions with decompensated heart failure and atrial fibrillation and rapid ventricular rates. Despite attempts at optimal rate control, she continues to be symptomatic with high rates. She was felt to be a good candidate for AV node ablation and upgrade to a biventricular device. Procedure detail: Patient was informed of the risks benefits and alternatives to the intended procedure. She understood and wished to proceed. She was taken to the electrophysiology suite in a fasting state. Sedation was administered by the anesthesiology service. The patient was monitored electrocardiographically throughout today's procedure. The right femoral area was prepped and draped in usual sterile fashion. This area was anesthetized using subcutaneous admin istration of lidocaine solution. The right femoral vein was subsequently access using modified Seldinger technique and a venous sheath was placed over guidewire at this site. The sheath was used to facilitate passage of an ablation catheter to the area of the AV node under fluoroscopic guidance. Radiofrequency lesions were then placed in both a temperature and power limited mode. Initial attempts were made with an 8 mm catheter, but adequate temperatures could not be achieved despite maximum power output. This catheter was subsequently exchanged for an irrigated radiofrequency ablation catheter. Radiofrequency lesions were then placed in a power limited mode but elimination of the AV jennifer conduction could not be achieved. At this point the catheter and sheath were removed and hemos tasis was achieved at the access site using manual pressure. The left upper pectoral area was subsequently prepped and draped in the usual sterile fashion an area over the previously implanted pulse generator was subsequently anesthetized using subcutaneous administration of lidocaine solution. An incision was made the same carried out of the previously implanted pulse generator using sharp dissection. Electrocardiograms also played for dissection as well as for hemostasis. The previously implanted pulse generator and lead were then freed from the surrounding scar tissue. A partial capsul otomy was performed. Limited left axillary venography was performed in order to identify patency in the target vessel. Once confirmed the left axillary vein was accessed using modified center technique. Sheath was placed over guidewire at this site. She believes facilitate passage of the guiding catheter for engagement of the coronary sinus. Once engaged, balloon tip catheter was used for limited coronary sinus venography. This was employed in order to identify suitable target vessel. Once identified standard guidewire techniques were employed to deliver the lead to the target vessel. Adequate sensing and threshold parameters were obtained in the absence of diaphragmatic stimulation confirmed prior to removal of the guiding sheath. The proximal portion of lead was then sutured to the prepectoralis fascia using nonabsorbable suture. Device pocket was irrigated with antibiotic solution. The leads were detached from the previous device and attached to a new device. This device was placed in an antibiotic pouch and back into the previously fashioned sub cutaneous pocket. This pocket was subsequently closed in 3 layers of absorbable suture. Steri- Strips and sterile dressing were applied. The device was tested not have a sleep prior to conclusion the procedure. Patient tolerated well. There were no immediate complications. Equipment used: New pulse generator. Product Safety Head [employer]. Model number [id number] serial number [id number] H Explanted pulse generator: Product Safety Head [employer]. Model number D 141 serial number [id number] Retained right ventricular lead: Product Safety Head Guidant model #0185 serial 1. [id number] New left ventricular lead: Product Safety Head [employer]. Model 4298 serial number [id number] Measure data: Right ventricular lead: R-waves measure 6.6 mV. Pacing threshold was 0.75 volts at 0.4 milliseconds with a pacing impedance of 361 Ohms Left ventricular lead: R-waves measured 3.4 mV. Pacing threshold was 2 volts at 0.4 milliseconds with a pacing impedance of 589 Ohms Impression: Unsuccessful ablation of the AV node Successful upgrade of single-chamber ICD to biventricular ICD
[2018-08-04] MEDS: ACETAMINOPHEN 325 MG TAB PO PRN (21:16)
[2018-08-04] MEDS: QUETIAPINE FUMARATE 300 MG TABLET PO SCH (21:16)
[2018-08-04] MEDS: CEFAZOLIN 2000MG 2,000 MG/15 ML SYR IV SCH (23:04)
[2018-08-05] MEDS: CEFAZOLIN 2000MG 2,000 MG/15 ML SYR IV SCH ×2 (06:02→14:18)
[2018-08-05 07:02] LABS: Albumin Level 2.8 gm/dl (3.4-5.0); BUN Creatinine Ratio 27.2 (10-20); Calcium 8.1 mg/dl (8.5-10.1); Creatinine Clr Calc Pharmacy 67.2 ml/min; Est GFR (African American) 58.5; Est GFR (Non-African American) 50.5; Potassium 3.8 mmol/L (3.5-5.1)
[2018-08-05 07:03] LABS: Phosphorus 2.5 mg/dl (2.5-4.9)
--- NOTE | 2018-08-05 07:05 | XRay Report ---
XR chest 2V routine CLINICAL HISTORY: EXACT TIME ORDERED Evaluate for pneumothorax and l COMPARISON STUDY: 07/31/2018 FINDINGS: Stable cardiomegaly. Placement of a cardiac pacemaker/defibrillator. Leads in good position . No evidence pneumothorax. IMPRESSION: Cardiac pacemaker placement with leads in good position. No evidence for pneumothorax. The above report was generated using voice recognition software. It may contain grammatical, syntax or spelling errors. Electronically signed by: Osmar Kapoor M.D. 08/05/2018 7:03 AM
[2018-08-05] MEDS: INSULIN ASPART 100 UNITS/ML 3 ML PEN SC SCH ×4 (08:25→21:07)
[2018-08-05] MEDS: DOCUSATE SODIUM 100 MG CAP PO SCH ×2 (08:27→21:20)
[2018-08-05] MEDS: PANTOprazole 40 MG TAB PO SCH (08:27)
[2018-08-05] MEDS: ATORVASTATIN 10 MG TAB PO SCH (08:27)
[2018-08-05] MEDS: QUETIAPINE FUMARATE 25 MG TABLET PO SCH (08:28)
[2018-08-05] MEDS: METOPROLOL SUCC 25MG EXT REL TAB PO SCH (08:28)
[2018-08-05] MEDS: DOCUSATE SODIUM/SENNA 50/8.6MG TAB PO SCH (08:28)
[2018-08-05] MEDS: ACETAMINOPHEN 325 MG TAB PO PRN ×2 (08:34→21:19)
--- NOTE | 2018-08-05 09:16 | Cardiology Progress Note ---
Date of Service August 05, 2018 Assessment & Plan (1) Atrial fibrillation: Yesterday she underwent attempted ablation of AV node which was not successful. She did undergo successful upgrade of her ICD to a biventricular device. Rate control is much better this morning likely due to better volume status. I think we can increase her metoprolol again tomorrow. I think the ultimate plan is still for an AV node ablation. I did discuss timing of a repeat procedure with the patient today. She is more interested in staying in the hospital in getting this done as she is quite concerned about returning home. I think we will monitor her heart rates and determine if repeat procedures required during this hospitalization or the can be performed as an outpatient. Will restart her anticoagulation this evening. (2) Pericardial effusion: This looks slightly smaller on her echocardiogram performed on admission. I do not believe this is causing any hemodynamic compromise. The etiology is unclear but there is a suspicion for connective tissue disorder. Right heart catheterization this admission did not reveal evidence tamponade. (3) Chest pain: No recurrent symptoms of chest pain. (4) Congestive heart failure with cardiomyopathy: She did receive some fluid yesterday during her procedure but diuresed quite aggressively afterwards. This improved her heart rates dramatically. Her lung exam is always been fairly benign. I think she should be maintained on a daily dose of oral diuretic. Renal function appears stable. (5) Nonischemic cardiomyopathy: Will continue on beta-blockade. Once her hemodynamics appear to be stable we will consider addition of ARB or possibly Entresto (6) Severe mitral regurgitation: I believe this is most likely functional given her dilated cardiomyopathy. However, there did not appear to be good options for addressing this issue at this time. He likely does play a role in her overall poor condition. (7) Acute kidney injury: Resolved. (8) Pulmonary hypertension: Some this is certainly related to left heart failure. However, her degree of dyspnea and elevation in her pulmonary pressures seem somewhat unusual for simple left-sided failure. Especially given the filling pressures noted on right heart catheterization today. If we do not see significant improvement in short order, may due to explore other causes for her dyspnea. Subjective This morning the patient was somewhat disappointed by yesterday's events. She is scared regarding her health condition. She has some mild discomfort at her device implant site. She has not been ambulatory since yesterday. She is hungry for breakfast. No symptoms of chest pain. Breathing difficulty improved from admission. Physical Exam Vital Signs (Past 24 Hours): Last Vital Signs Temp 36.4 C L 08/05/18 04:00 Pulse 84 08/05/18 04:00 Resp 18 08/05/18 04:00 BP 90/62 L 08/05/18 04:00 Pulse Ox 95 08/05/18 04:00 Physical Exam: She is alert and oriented x3. Mood affect appear normal although she was tearful at times. She answered all questions appropriately. HEENT: Sclerae are anicteric. Pupils are equal and reactive to light and accommodation. Extraocular movements were intact. Neuro: Cranial nerves intact Neck: Examination of the submandibular region did not reveal any significant lymphadenopathy. Carotids are palpable bilaterally and free of bruits on auscultation. There was no evidence of jugular venous distention. The thyroid was not enlarged. Lungs: Lungs are clear to auscultation bilaterally. There are no rales wheezes or rhonchi. She has normal respiratory effort without use of accessory muscles. There is normal pulmonary excursion. Cardiac: The rhythm was irregular. S1 and S2 were normal. There are no murmurs on examination. The PMI was not markedly displaced on palpation. Chest: Device implant site without bleeding, erythema or hematoma. Mild ecchymosis. Abdomen: The abdomen was soft and nontender. Extremities: Patient has bilateral radial pulses that are equal in intensity. There is no evidence cyanosis or clubbing. There was no evidence of significant peripheral edema bilaterally. Evaluation of the right groin access site did not reveal any evidence of hematoma or bleeding Skin: There are no rashes noted on examination today. Results & Data Laboratory Results Abnormal Lab Results 08/04/18 08/04/18 08/04/18 06:03 12:54 12:56 Sodium Potassium Chloride Carbon Dioxide Anion Gap BUN Creatinine Est Cr Clr Drug Dosing Est GFR ( Amer) Est GFR (Non-Af Amer) BUN/Creatinine Ratio Glucose POC Glucose 85 98 97 Calcium Phosphorus Albumin 08/04/18 08/04/18 08/04/18 15:18 16:42 20:33 Sodium Potassium Chloride Carbon Dioxide Anion Gap BUN Creatinine Est Cr Clr Drug Dosing Est GFR ( Amer) Est GFR (Non-Af Amer) BUN/Creatinine Ratio Glucose POC Glucose 81 83 103 H Calcium Phosphorus Albumin 08/04/18 08/05/18 08/05/18 21:20 06:11 07:06 Sodium 136 Potassium 3.8 Chloride 99 Carbon Dioxide 27 Anion Gap 10.0 BUN 33 H Creatinine 1.20 Est Cr Clr Drug Dosing 67.2 Est GFR ( Amer) 58.5 Est GFR (Non-Af Amer) 50.5 BUN/Creatinine Ratio 27.2 H Glucose 113 H POC Glucose 92 125 H Calcium 8.1 L Phosphorus 2.5 Albumin 2.8 L Diagnostic Findings Chest x-ray obtained this morning reveals good lead position. No pneumothorax. Only mild vascular congestion. Device interrogation performed today revealed adequate sensing on both leads. Good threshold on the RV lead with slightly elevated thresholds on certain configurations on the LV lead. (1) Atrial fibrillation Atrial fibrillation type: unspecified Qualified Code(s): I48.91 - Unspecified atrial fibrillation (2) Chest pain Chest pain type: unspecified Qualified Code(s): R07.9 - Chest pain, unspecified
[2018-08-05] MEDS: BUMETANIDE 1 MG TAB PO SCH (10:26)
[2018-08-05] MEDS: RIVAROXABAN 20 MG TAB PO SCH (21:06)
[2018-08-05] MEDS: QUETIAPINE FUMARATE 300 MG TABLET PO SCH (21:06)
[2018-08-05] MEDS: TRAZODONE HCL 100 MG TAB PO SCH (21:18)
--- NOTE | 2018-08-05 22:59 | Hospitalist Progress Note ---
Date of Service August 04, 2018 Assessment & Plan (1) Acute kidney injury: Patient required emergent dialysis earlier in the hospital stay Since then she has been making urine. It appears patient was likely having cardiorenal failure. Doubt that this was iatrogenic. Patient is doing well in tele. Patient failed ablation but had ICD upgraded. Will continue to monitor Is and Os. (2) Hyperkalemia: Requried dialysis on 08/02 Resolved (3) Atrial fibrillation with RVR: Patient with history of the same. She was cardioverted in June. Presents today in AF with RVR. Most likely contributing to her SOB, possibly some CHF in setting of poor rate control. She reports compliance with her medications. HR improved slightly with Metoprolol given in ER. Digoxin level=0.4 will continue betablocker. -Continue Rivaroxaban for anticoagulation Held for procedure. will resume in AM. Appreciate cardiac input. (4) Shortness of breath: Patient appears to be improving due to dialysis and improved urine output. Will continue to monitor. (5) Acute on chronic systolic heart failure: Patient with history of NICM with poor EF. Possibly in mild failure now - SOB, PVC on CXR -Supplemental O2 as needed -Echo as above (6) Pericardial effusion: History of the same. Suspected pericarditis during last hospital stay. Does not appear to have tamponade at this time - no JVD, heart sounds pronounced, BP maintained. Autoimmune workup during last hospital stay with Positive JOHNSON, 1:80 in nucleolar pattern (most commonly associated with scleroderma, CREST, systemic sclerosis and Sjogren's). -Repeat echo to assess effusion -Continue Colchicine 0.6mg po BID -Patient is to followup with Rheumatology in October 2018 as scheduled (7) Diabetes: Blood sugar well controlled at present. Patient is on Metformin at home. A1C=6 in 04/2018 -Hold Metformin -Lantus 8u BID -ISS based on weight -Continue to monitor (8) Chronic respiratory failure with hypoxia: No respiratory distress at present. Subjective SOB. Adequate oxygenation -Supplemental O2 as needed (9) Morbid obesity: Noted. Encourage lifestyle modification, diet and exercise (10) Schizoaffective disorder: Stable. -Continue Seroquel -Continue Trazodone (11) GERD (gastroesophageal reflux disease): Stable. -Continue Omeprazole (12) Hypokalemia: resolved. (13) COPD (chronic obstructive pulmonary disease): Stable. No wheeze. Adequate oxygenation on NC -Albuterol PRN F/E/N - Heplock. Diuresis as above. Monitor daily labs and replete electrolytes as needed. CC/Heart healthy diet as tolerated Ppx - Anticoagulated with Rivaroxaban, continue home omeprazole Code - Full per discussion with patient Dispo -Admit to PCU (14) Electrolyte imbalance: As noted above. (15) DVT prophylaxis: Patient anticoagulated with Xarelto (Held 08/04) Ambulate as tolerated No asymmetrical edema Continue to monitor Spent 25 minutes in the management of patient. Subjective Patient reports denies SOB at rest, nausea, vomiting, diarrhea. Patient denies chest pain. Patient is ok to be transferred out of the ICU. Physical Exam Vital Signs (Past 24 Hours): Last Vital Signs Temp 36.8 C L 08/04/18 19:00 Pulse 100 H 08/04/18 19:00 Resp 22 08/04/18 19:00 BP 97/73 08/04/18 19:00 Pulse Ox 91 08/04/18 19:00 Physical Exam: GENERAL : No distress. EYES: No icterus, gaze conjugate NOSE: No evidence of epistaxis MOUTH: No lesions or candidiasis. No facial droop. Tongue is midline NECK: Supple. No carotid bruits LUNGS: CTA B/L, no wheezes, rales or rhonchi. not accesory muscles to breath. HEART: Irregular, irregular, tachycardic ABDOMEN: Soft, NT, ND, BS Present EXTREMITIES: No LE edema, pedal pulses intact. All extremities are cool to touch NEURO: A&OX3 (1) Diabetes Diabetes mellitus complication status: without complication Diabetes mellitus termite helper insulin use: without fpc use Diabetes mellitus type: type 2 Qualified Code(s): E11.9 - Type 2 diabetes mellitus without complications (2) Schizoaffective disorder Schizoaffective disorder type: other Qualified Code(s): F25.8 - Other schizoaffective disorders (3) COPD (chronic obstructive pulmonary disease) COPD type: unspecified COPD Qualified Code(s): J44.9 - Chronic obstructive pulmonary disease, unspecified (4) GERD (gastroesophageal reflux disease) Esophagitis presence: esophagitis presence not specified Qualified Code(s): K21.9 - Gastro-esophageal reflux disease without esophagitis
--- NOTE | 2018-08-05 23:00 | Hospitalist Progress Note ---
Date of Service August 05, 2018 Assessment & Plan (1) Acute kidney injury: Patient required emergent dialysis earlier in the hospital stay Since then she has been making urine. It appears patient was likely having cardiorenal failure. Doubt that this was iatrogenic. Patient is doing well in tele. Patient failed ablation but had ICD upgraded. Will continue to monitor Is and Os. Plan is for repeat ablation on tuesday (2) Hyperkalemia: Requried dialysis on 08/02 Resolved (3) Atrial fibrillation with RVR: Patient with history of the same. She was cardioverted in June. Presents today in AF with RVR. Most likely contributing to her SOB, possibly some CHF in setting of poor rate control. She reports compliance with her medications. HR improved slightly with Metoprolol given in ER. Digoxin level=0.4 will continue betablocker. -Continue Rivaroxaban for anticoagulation. Appreciate cardiac input. (4) Shortness of breath: Patient appears to be improving due to dialysis and improved urine output. Will continue to monitor. (5) Acute on chronic systolic heart failure: Patient with history of NICM with poor EF. Possibly in mild failure now - SOB, PVC on CXR -Supplemental O2 as needed -Echo as above No longer in exacerbation. (6) Pericardial effusion: History of the same. Suspected pericarditis during last hospital stay. Does not appear to have tamponade at this time - no JVD, heart sounds pronounced, BP maintained. Autoimmune workup during last hospital stay with Positive JOHNSON, 1:80 in nucleolar pattern (most commonly associated with scleroderma, CREST, systemic sclerosis and Sjogren's). -Repeat echo to assess effusion -Continue Colchicine 0.6mg po BID -Patient is to followup with Rheumatology in October 2018 as scheduled (7) Diabetes: Blood sugar well controlled at present. Patient is on Metformin at home. A1C=6 in 04/2018 -Hold Metformin -Lantus 8u BID -ISS based on weight -Continue to monitor (8) Chronic respiratory failure with hypoxia: No respiratory distress at present. Subjective SOB. Adequate oxygenation -Supplemental O2 as needed (9) Morbid obesity: Noted. Encourage lifestyle modification, diet and exercise (10) Schizoaffective disorder: Stable. -Continue Seroquel -Continue Trazodone (11) GERD (gastroesophageal reflux disease): Stable. -Continue Omeprazole (12) Hypokalemia: resolved. (13) COPD (chronic obstructive pulmonary disease): Stable. No wheeze. Adequate oxygenation on NC -Albuterol PRN (14) Electrolyte imbalance: As noted above. (15) DVT prophylaxis: Patient anticoagulated with Xarelto resumed in the evening of 3/2 Ambulate as tolerated No asymmetrical edema Continue to monitor Spent 25 minutes in the management of patient. Subjective Patient reports her main complaint is that she is not hungry. She is also having a strong cough. The cough is non productive. Patient denies fever, chills. Physical Exam Vital Signs (Past 24 Hours): Last Vital Signs Temp 36.3 C L 08/05/18 19:25 Pulse 105 H 08/05/18 19:25 Resp 18 08/05/18 19:25 BP 107/71 08/05/18 19:25 Pulse Ox 95 08/05/18 19:25 Physical Exam: GENERAL : No distress. EYES: No icterus, gaze conjugate NOSE: No evidence of epistaxis MOUTH: No lesions or candidiasis. No facial droop. Tongue is midline NECK: Supple. No carotid bruits LUNGS: CTA B/L, no wheezes, rales or rhonchi. using accesory muscles to breath. HEART: Irregular, irregular, tachycardic ABDOMEN: Soft, NT, ND, BS Present EXTREMITIES: No LE edema, pedal pulses intact. All extremities are cool to touch NEURO: A&OX3 (1) Diabetes Diabetes mellitus type: type 2 Diabetes mellitus diagram clerk insulin use: without penitentiary use Diabetes mellitus complication status: without complication Qualified Code(s): E11.9 - Type 2 diabetes mellitus without complications (2) Schizoaffective disorder Schizoaffective disorder type: other Qualified Code(s): F25.8 - Other schizoaffective disorders (3) GERD (gastroesophageal reflux disease) Esophagitis presence: esophagitis presence not specified Qualified Code(s): K21.9 - Gastro-esophageal reflux disease without esophagitis (4) COPD (chronic obstructive pulmonary disease) COPD type: unspecified COPD Qualified Code(s): J44.9 - Chronic obstructive pulmonary disease, unspecified
[2018-08-06] MEDS: BENZONATATE 100 MG CAPSULE PO PRN ×4 (02:52→21:11)
[2018-08-06] MEDS: OXYCODONE HCL IR 5 MG TAB (IMMEDIATE RELEASE) PO PRN ×3 (02:54→15:56)
[2018-08-06 07:32] LABS: Albumin Level 2.9 gm/dl (3.4-5.0); BUN Creatinine Ratio 35.3 (10-20); Calcium 8.3 mg/dl (8.5-10.1); Creatinine Clr Calc Pharmacy 86.6 ml/min; Est GFR (African American) 79.6; Est GFR (Non-African American) 68.7; Phosphorus 2.6 mg/dl (2.5-4.9); Potassium 3.1 mmol/L (3.5-5.1)
[2018-08-06] MEDS: DOCUSATE SODIUM/SENNA 50/8.6MG TAB PO SCH (07:41)
[2018-08-06] MEDS: BUMETANIDE 1 MG TAB PO SCH (07:41)
[2018-08-06] MEDS: ATORVASTATIN 10 MG TAB PO SCH (07:41)
[2018-08-06] MEDS: QUETIAPINE FUMARATE 25 MG TABLET PO SCH (07:42)
[2018-08-06] MEDS: PANTOprazole 40 MG TAB PO SCH (07:42)
[2018-08-06] MEDS: DOCUSATE SODIUM 100 MG CAP PO SCH ×2 (09:03→21:11)
[2018-08-06] MEDS: METOPROLOL SUCC 50MG EXT REL TAB PO SCH (09:03)
[2018-08-06] MEDS: INSULIN ASPART 100 UNITS/ML 3 ML PEN SC SCH ×4 (09:05→21:19)
--- NOTE | 2018-08-06 17:28 | XRay Report ---
XR chest 2V routine HISTORY: 57 years-old Female cough acute cough COMPARISON: Chest radiographs 08/05/2018 TECHNIQUE: AP and lateral views of the chest FINDINGS: Cardiac silhouette is enlarged, unchanged. Stable left subclavian pacer/AICD. Mild pulmonary vascular congestion without pneumothorax, large pleural effusion or lobar airspace consolidation. Subsegmenta l bibasilar opacities are suggestive of atelectasis. Mild interstitial coarsening. Degenerative braun es of the shoulders and spine. IMPRESSION: Cardiomegaly with pulmonary vascular congestion and mild interstitial coarsening suggesti ve of mild pulmonary edema. The above report was generated using voice recognition software. It may contain grammatical, syntax o r spelling errors. Electronically signed by: Bryan Ortega M.D. 08/06/2018 5:27 PM
[2018-08-06] MEDS: guaiFENesin 600 MG TABCR PO SCH (21:11)
[2018-08-06] MEDS: RIVAROXABAN 20 MG TAB PO SCH (21:11)
[2018-08-06] MEDS: QUETIAPINE FUMARATE 300 MG TABLET PO SCH (21:11)
[2018-08-06] MEDS: TRAZODONE HCL 100 MG TAB PO SCH (21:11)
[2018-08-06] MEDS: ACETAMINOPHEN 325 MG TAB PO PRN (21:17)
--- NOTE | 2018-08-06 22:20 | Hospitalist Progress Note ---
Date of Service August 06, 2018 Assessment & Plan (1) Acute kidney injury: Patient required emergent dialysis earlier in the hospital stay Since then she has been making urine. It appears patient was likely having cardiorenal failure. Doubt that this was iatrogenic. Patient is doing well in tele. Patient failed ablation but had ICD upgraded. Will continue to monitor Is and Os. Plan is for repeat ablation tomorrow. (2) Hyperkalemia: Requried dialysis on 08/02 Resolved (3) Atrial fibrillation with RVR: Patient with history of the same. She was cardioverted in June. Presents today in AF with RVR. Most likely contributing to her SOB, possibly some CHF in setting of poor rate control. She reports compliance with her medications. HR improved slightly with Metoprolol given in ER. Digoxin level=0.4 will continue betablocker. -Continue Rivaroxaban for anticoagulation. Appreciate cardiac input. (4) Shortness of breath: Patient appears to be improving due to dialysis and improved urine output. Will continue to monitor. (5) Acute on chronic systolic heart failure: Patient with history of NICM with poor EF. Possibly in mild failure now - SOB, PVC on CXR -Supplemental O2 as needed -Echo as above No longer in exacerbation. (6) Pericardial effusion: History of the same. Suspected pericarditis during last hospital stay. Does not appear to have tamponade at this time - no JVD, heart sounds pronounced, BP maintained. Autoimmune workup during last hospital stay with Positive JOHNSON, 1:80 in nucleolar pattern (most commonly associated with scleroderma, CREST, systemic sclerosis and Sjogren's). -Repeat echo to assess effusion -Continue Colchicine 0.6mg po BID -Patient is to followup with Rheumatology in October 2018 as scheduled (7) Diabetes: Blood sugar well controlled at present. Patient is on Metformin at home. A1C=6 in 04/2018 -Hold Metformin -Lantus 8u BID -ISS based on weight -Continue to monitor (8) Chronic respiratory failure with hypoxia: No respiratory distress at present. Subjective SOB. Adequate oxygenation -Supplemental O2 as needed (9) Morbid obesity: Noted. Encourage lifestyle modification, diet and exercise (10) Schizoaffective disorder: Stable. -Continue Seroquel -Continue Trazodone Possible symptoms of depression: will consult psych. This may be reason why patient is not eating well. (11) GERD (gastroesophageal reflux disease): Stable. -Continue Omeprazole (12) Hypokalemia: resolved. (13) COPD (chronic obstructive pulmonary disease): Stable. No wheeze. Adequate oxygenation on NC -Albuterol PRN (14) Electrolyte imbalance: As noted above. (15) DVT prophylaxis: Patient anticoagulated with Xarelto resumed in the evening of 3/2 Ambulate as tolerated No asymmetrical edema Continue to monitor Spent 25 minutes in the management of patient. Subjective Patient reports that she has not had a good meal even prior to the hospital stay. She reports that she may be depressed. Physical Exam Vital Signs (Past 24 Hours): Last Vital Signs Temp 36.5 C 08/06/18 19:19 Pulse 119 H 08/06/18 19:19 Resp 20 08/06/18 19:19 BP 100/74 08/06/18 19:19 Pulse Ox 93 08/06/18 19:19 Physical Exam: GENERAL : No distress. EYES: No icterus, gaze conjugate NOSE: No evidence of epistaxis MOUTH: No lesions or candidiasis. No facial droop. Tongue is midline NECK: Supple. No carotid bruits LUNGS: CTA B/L, no wheezes, rales or rhonchi. using accesory muscles to breath. HEART: Irregular, irregular, tachycardic ABDOMEN: Soft, NT, ND, BS Present EXTREMITIES: No LE edema, pedal pulses intact. All extremities are cool to touch NEURO: A&OX3 (1) Diabetes Diabetes mellitus type: type 2 Diabetes mellitus retirement insulin use: without retirement use Diabetes mellitus complication status: without complication Qualified Code(s): E11.9 - Type 2 diabetes mellitus without complications (2) Schizoaffective disorder Schizoaffective disorder type: other Qualified Code(s): F25.8 - Other schizoaffective disorders (3) GERD (gastroesophageal reflux disease) Esophagitis presence: esophagitis presence not specified Qualified Code(s): K21.9 - Gastro-esophageal reflux disease without esophagitis (4) COPD (chronic obstructive pulmonary disease) COPD type: unspecified COPD Qualified Code(s): J44.9 - Chronic obstructive pulmonary disease, unspecified
[2018-08-07] MEDS: BENZONATATE 100 MG CAPSULE PO PRN (02:33)
[2018-08-07] MEDS: OXYCODONE HCL IR 5 MG TAB (IMMEDIATE RELEASE) PO PRN ×3 (02:33→19:54)
--- NOTE | 2018-08-07 07:42 | Anesthesiology Progress Note ---
Date of Service August 07, 2018 Anesthesia Post Procedure Vital Signs Vital Signs: Temp Pulse Pulse Pulse Resp BP BP 08/07/18 07:03 36.7 C 100 H 20 102/84 08/07/18 05:00 35 C L 98 H 16 93/70 L 08/07/18 00:00 109 H 08/06/18 23:16 36.9 C 111 H 18 96/66 L 08/06/18 19:19 36.5 C 119 H 20 100/74 08/06/18 15:19 36.6 C 106 H 22 106/50 L 08/06/18 11:59 36.7 C 110 H 20 105/77 Pulse Ox 08/07/18 07:03 100 08/07/18 05:00 08/07/18 00:00 08/06/18 23:16 99 08/06/18 19:19 93 08/06/18 15:19 94 08/06/18 11:59 96 Pain Intensity Right Neck: Pain Intensity: 8 Medial Chest: Pain Intensity: 5 Notes Mental Status: alert / awake / arousable Patient Amnestic to Procedure: Yes Nausea / Vomiting: adequately controlled Pain: adequately controlled Airway Patency, RR, SpO2: stable & adequate BP & HR: stable & adequate Hydration State: stable & adequate Anesthetic Complications: no major complications apparent
[2018-08-07 08:14] LABS: Potassium 4.6 mmol/L (3.5-5.1)
[2018-08-07 08:15] LABS: Albumin Level 2.9 gm/dl (3.4-5.0); BUN Creatinine Ratio 31.6 (10-20); Calcium 8.5 mg/dl (8.5-10.1); Creatinine Clr Calc Pharmacy 87.8 ml/min; Est GFR (African American) 80.7; Est GFR (Non-African American) 69.6; Phosphorus 3.5 mg/dl (2.5-4.9)
[2018-08-07] MEDS: METOPROLOL SUCC 50MG EXT REL TAB PO SCH (08:49)
[2018-08-07] MEDS: PANTOprazole 40 MG TAB PO SCH (08:50)
[2018-08-07] MEDS: guaiFENesin 600 MG TABCR PO SCH ×2 (08:50→21:52)
[2018-08-07] MEDS: DOCUSATE SODIUM 100 MG CAP PO SCH ×2 (08:50→21:52)
[2018-08-07] MEDS: ATORVASTATIN 10 MG TAB PO SCH (08:50)
[2018-08-07] MEDS: INSULIN ASPART 100 UNITS/ML 3 ML PEN SC SCH ×4 (08:50→21:53)
[2018-08-07] MEDS: BUMETANIDE 1 MG TAB PO SCH (08:50)
[2018-08-07] MEDS: QUETIAPINE FUMARATE 25 MG TABLET PO SCH (08:50)
[2018-08-07] MEDS: DOCUSATE SODIUM/SENNA 50/8.6MG TAB PO SCH (08:51)
--- NOTE | 2018-08-07 13:05 | Psychiatric Consultation ---
Date of Consultation August 07, 2018 Impression / Recommendations Impression Consult requested by the patient to discuss depression but she is unable to participate fully in conversation at this time. She indicates her biggest concern is she is not sleeping however cannot stay awake during the interview. In review of her medications I see that she is on Seroquel 50 mg a.m. and 300 mg at bedtime I suggest that in the name of good sleep hygiene we discontinue the a.m. Seroquel so that she is less sleepy during the day in hopes that we can promote good nighttime sleep. Beyond this the only things I can tell you are that she is not suicidal and therefore does not be criteria for inpatient mental health treatment. I have told her that I would review her medications and that if she wanted me to return at a later time in order to more fully explore her mood that she could ask for us to return. A discharge summary should be sent to her outpatient provider Danyelle GARRISON for continuity of care given that I am going to discontinue her morning Seroquel. (1) Depression: 08/07 - Will have the liaison nurse obtain an RENETTA for [place] to retrieve OP records to confirm diagnosis and meds - Recommend DC AM seroquel to reduce daytime sedation and promote better sleep hygiene - Nursing should encourage her to be OOB and walking as able Risk Factors Assessment Male: No : No Health Problems: Yes Mental Health Diagnoses: Yes Protective Factors Assessment Employed: No CPT Code 89498 Psych History Identifying Data 57 yo woman admitted with multiple medical problems including acute on chronic heart failure, A-fib, COPD with chronic failure. This consult is requested by the patient to discuss depression. Information is gather from the patient and not considered to be completely reliable and she repeatedly falls asleep during the interview. Chief Complaint "I can't sleep.". History of Present Illness Per H&P: Patient is a 57yo AA female with multiple medical problems to include atrial fibrillation, Type II DM, HTN, CHF with EF of 25-30% per echo 06/30/18, ventricular arrhythmia s/p AICD placement, and known pericardial effusion. She was recently admitted to [facility] from 06/28/18 to 07/06/18 for severe dyspnea/CHF and chest pain. During that hospital stay her pericardial effusion was found to be slightly larger. She was also thought to have pericarditis from the effusion causing her chest pain. An autoimmune workup was pursued and she was started on Colchicine 0.6mg po BID with resolution of her chest discomfort. Patient states that she has not felt right since her recent discharge. She has had persistent and progressive SOB as well as more frequent palpitations and racing heart. Decreased exercise tolerance and inability to perform ADLs due to SOB. She has been coughing for the last 24 hours - productive for white frothy sputum. She states that she has chest discomfort only when she coughs as well as orthopnea. She denies weight gain, edema, fevers, chills, abdominal pain or distention, nausea/vomiting/diarrhea or constipation. She states that she sweats frequently and feels overheated - no changes in these complaints. Patient has AICD in place, no discharges since 2013. At the time I see the patient she is sitting upright in her bed attempting to eat her lunch. She appears tired but easily arouses to voice. It is difficult to get consistent information as about every minute and a half she falls asleep and must be awakened. She loses track of the question which then has to be repeated and I do not always get an appropriate answer. She indicates that she is seen by Danyelle GARRISON at [place] for what she believes to be bipolar disorder. She is unclear about the dosages of her medications going back and forth. She is unable to characterize her mood for me just repeating that she cannot sleep. When asked if she is sleeping at night she says that she is but "I go in and out of consciousness". She denies that she is suicidal. She reports poor appetite and indeed is struggling to eat her lunch today having spit out the only bite of hamburger that she took. She reports poor concentration and focus and reported decreased interest in previously satisfying activities. She denies anxiety. She is unable to answer questions about hallucinations. Given that she says she is treated for bipolar disorder I asked her if she has ever had a manic episode and she denies. Past Psychiatric History Current Psychiatric Diagnosis: ?Bipolar disorder per patient Outpatient Services: Danyelle GARRISON at [place] Allergies Allergy/AdvReac Type Severity Reaction Status Date / Time fentanyl Allergy Mild RASH,ITCHIN Verified 07/31/18 09:49 G Home Medications Home Medications Medication Instructions Recorded Confirmed Type atorvastatin 10 mg PO DAILY 05/31/18 07/31/18 History digoxin 0.125 mg PO DAILY 05/31/18 07/31/18 History diphenhydramine HCl [Benadryl] 25 mg PO QAM 05/31/18 07/31/18 History docusate sodium [Colace] 100 mg PO BID 05/31/18 07/31/18 History gabapentin 600 mg PO BID 05/31/18 07/31/18 History hydroxyzine pamoate [Vistaril] 50 mg PO QPM 05/31/18 07/31/18 History metformin 500 mg PO BID 05/31/18 07/31/18 History omeprazole 20 mg PO DAILY 05/31/18 07/31/18 History quetiapine [Seroquel] 50 mg PO DAILY 05/31/18 07/31/18 History quetiapine [Seroquel] 300 mg PO HS 05/31/18 07/31/18 History rivaroxaban [Xarelto] 20 mg PO DAILY 05/31/18 07/31/18 History albuterol sulfate 2 inha INH QID PRN #6.7 gm 06/12/18 07/31/18 Rx potassium chloride 20 meq PO DAILY 06/28/18 07/31/18 History colchicine [Colcrys] 0.6 mg PO BID #60 tab 07/06/18 07/31/18 Rx metoprolol succinate [Toprol XL] 50 mg PO DAILY #30 tab 07/06/18 07/31/18 Rx Lasix 40 mg PO BID 07/31/18 07/31/18 History metoprolol succinate 25 mg PO DAILY 07/31/18 07/31/18 History trazodone 200 mg PO HS 07/31/18 07/31/18 History Personal History Employment Status: Unemployed Beliefs That Will Affect Care: None Patient History Medical History Asthma (Chronic) CHF (congestive heart failure) (Chronic) 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% per echo 06/06/18; non-obstructive CAD per cath 2006 HTN (hypertension) (Chronic) PTSD (post-traumatic stress disorder) (Chronic) Atrial fibrillation Diabetes type 2, controlled patient denies having diabetes, does not want further testing even though she is prescribed Metformin GERD (gastroesophageal reflux disease) Morbid obesity Pulmonary embolism 2013 while living in [place] Schizoaffective disorder Ventricular arrhythmia Surgical History Pacemaker (Chronic) AICD (automatic cardioverter/defibrillator) present S/P ORIF (open reduction internal fixation) fracture ankle, left S/P tubal ligation Family History Mother , in her 70s Lung cancer Breast cancer Congestive heart failure (CHF) Father No problems noted. Other Hypertension Social History Communication Ability: Effective Beliefs That Will Affect Care: None marital status: marital status details: 5 kids Current Living Situation: Alone Current Living Situation Comment: [facility] Res[employer] 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: previously worked as [employer] Other Information That Helps Us Care for You: No other: lives in [place] Feels Safe at Home: No Safety Concerns: Afraid for Self Smoking Status: Former smoker Hx Alcohol Use: No Hx Substance Use: No Physical Exam Psychiatric Orientation: + not alert Apperance: appropriately dressed Eye Contact: + poor eye contact (eyes closed through much of the interview the) falling asleep while sitting up tired Unable to characterize Thought Process: + thought process not clear or coherent Thought Content: + preoccupation (with not being able to sleep) Suicidal Thoughts: denies suicidal thoughts Homicidal Thoughts: denies homicidal thoughts Hallucinations: no auditory hallucinations and no visual hallucinations Cognition: language grossly intact; + recent memory not intact, + remote memory not intact and + attention not intact Insight: + limited insight Judgement: + limited judgement Vital Signs (Past 24 Hours) Last Vital Signs Temp 36.7 C 08/07/18 10:51 Pulse 118 H 08/07/18 10:51 Resp 20 08/07/18 10:51 BP 91/55 L 08/07/18 10:51 Pulse Ox 99 08/07/18 10:51 Results & Data Medications Administered Acetaminophen (Tylenol) 650 mg PO Q4H PRN PRN Reason: Pain or Fever Stop: 08/30/18 11:39 Last Admin: 08/06/18 21:17 Dose: 650 mg Documented by: [id number] Admin: 08/05/18 21:19 Dose: 650 mg Documented by: [id number] Admin: 08/05/18 08:34 Dose: 650 mg Documented by: [id number] Admin: 08/04/18 21:16 Dose: 650 mg Documented by: [id number] Admin: 08/03/18 20:19 Dose: 650 mg Documented by: [id number] Admin: 08/03/18 08:31 Dose: 650 mg Documented by: [id number] Admin: 08/03/18 02:14 Dose: 650 mg Documented by: [id number] Admin: 08/02/18 20:28 Dose: 650 mg Documented by: [id number] Admin: 08/01/18 16:13 Dose: 650 mg Documented by: [id number] Admin: 07/31/18 19:42 Dose: 650 mg Documented by: [id number] Albuterol (Ventolin Hfa) 1 - 2 puffs INH QID PRN PRN Reason: shortness of breath or wheezing Stop: 08/30/18 11:39 Last Admin: 08/01/18 09:59 Dose: 2 puffs Documented by: [id number] Admin: 07/31/18 16:38 Dose: 2 puffs Documented by: [id number] Atorvastatin Calcium (Lipitor) 10 mg PO DAILY VICTOR M Stop: 08/31/18 08:59 Last Admin: 08/07/18 08:50 Dose: 10 mg Documented by: [id number] Admin: 08/06/18 07:41 Dose: 10 mg Documented by: [id number] Admin: 08/05/18 08:27 Dose: 10 mg Documented by: [id number] Admin: 08/04/18 16:44 Dose: Not Given Documented by: [id number] Admin: 08/03/18 08:28 Dose: 10 mg Documented by: [id number] Admin: 08/02/18 08:58 Dose: 10 mg Documented by: [id number] Admin: 08/01/18 08:11 Dose: 10 mg Documented by: [id number] Benzonatate (Tessalon Perle) 100 mg PO TID PRN PRN Reason: Cough Stop: 09/05/18 02:29 Last Admin: 08/07/18 02:33 Dose: 100 mg Documented by: [id number] Admin: 08/06/18 21:11 Dose: 100 mg Documented by: [id number] Admin: 08/06/18 15:57 Dose: 100 mg Documented by: [id number] Admin: 08/06/18 09:38 Dose: 100 mg Documented by: [id number] Admin: 08/06/18 02:52 Dose: 100 mg Documented by: [id number] Bumetanide (Bumex) 2 mg PO QAM VICTOR M Stop: 09/04/18 09:29 Last Admin: 08/07/18 08:50 Dose: 2 mg Documented by: [id number] Admin: 08/06/18 07:41 Dose: 2 mg Documented by: [id number] Admin: 08/05/18 10:26 Dose: 2 mg Documented by: [id number] Dextrose (Dextrose 50%) 25 - 50 ml IV UD PRN; Protocol PRN Reason: Hypoglycemia Protocol Stop: 08/30/18 11:39 Last Admin: 08/02/18 07:23 Dose: 50 ml Documented by: [id number] Docusate Sodium (Colace) 100 mg PO BID VICTOR M Stop: 08/30/18 20:59 Last Admin: 08/07/18 08:50 Dose: 100 mg Documented by: [id number] Admin: 08/06/18 21:11 Dose: 100 mg Documented by: [id number] Admin: 08/06/18 09:03 Dose: 100 mg Documented by: [id number] Admin: 08/05/18 21:20 Dose: 100 mg Documented by: [id number] Admin: 08/05/18 08:27 Dose: 100 mg Documented by: [id number] Admin: 08/04/18 21:17 Dose: 100 mg Documented by: [id number] Admin: 08/04/18 16:44 Dose: Not Given Documented by: [id number] Admin: 08/03/18 20:24 Dose: 100 mg Documented by: [id number] Admin: 08/03/18 08:26 Dose: 100 mg Documented by: [id number] Admin: 08/02/18 20:29 Dose: 100 mg Documented by: [id number] Admin: 08/02/18 08:58 Dose: 100 mg Documented by: [id number] Admin: 08/01/18 20:18 Dose: Not Given Documented by: [id number] Admin: 08/01/18 08:11 Dose: 100 mg Documented by: [id number] Admin: 07/31/18 22:21 Dose: 100 mg Documented by: [id number] Gabapentin (Neurontin) 600 mg PO BID VICTOR M Stop: 08/30/18 20:59 Last Admin: 08/02/18 08:58 Dose: 600 mg Documented by: [id number] Admin: 08/01/18 20:25 Dose: 600 mg Documented by: [id number] Admin: 08/01/18 08:11 Dose: 600 mg Documented by: [id number] Admin: 07/31/18 22:21 Dose: 600 mg Documented by: [id number] Guaifenesin (Mucinex) 1,200 mg PO Q12 VICTOR M Stop: 09/05/18 20:59 Last Admin: 08/07/18 08:50 Dose: 1,200 mg Documented by: [id number] Admin: 08/06/18 21:11 Dose: 1,200 mg Documented by: [id number] Hydroxyzine HCl (Vistaril) 50 mg PO QPM VICTOR M Stop: 08/30/18 20:59 Last Admin: 08/01/18 20:25 Dose: 50 mg Documented by: [id number] Admin: 07/31/18 22:22 Dose: 50 mg Documented by: [id number] Insulin Aspart (Novolog Flexpen) 0 units SC ACHS VICTOR M Stop: 08/30/18 11:39 Last Admin: 08/07/18 12:40 Dose: 3 units Documented by: [id number] Cosigned by: [id number] Admin: 08/07/18 08:50 Dose: 5 units Documented by: [id number] Cosigned by: [id number] Admin: 08/06/18 21:19 Dose: Not Given Documented by: [id number] Cosigned by: [id number] Admin: 08/06/18 17:54 Dose: Not Given Documented by: [id number] Cosigned by: [id number] Admin: 08/06/18 13:25 Dose: 1 units Documented by: [id number] Cosigned by: [id number] Admin: 08/06/18 09:05 Dose: 1 units Documented by: [id number] Cosigned by: [id number] Admin: 08/05/18 21:07 Dose: Not Given Documented by: [id number] Admin: 08/05/18 17:27 Dose: 3 units Documented by: [id number] Cosigned by: [id number] Admin: 08/05/18 12:55 Dose: Not Given Documented by: [id number] Cosigned by: [id number] Admin: 08/05/18 08:25 Dose: 2 units Documented by: [id number] Cosigned by: [id number] Admin: 08/04/18 21:21 Dose: Not Given Documented by: [id number] Admin: 08/04/18 17:08 Dose: 4 units Documented by: [id number] Cosigned by: [id number] Admin: 08/04/18 11:55 Dose: Not Given Documented by: [id number] Cosigned by: [id number] Admin: 08/04/18 06:05 Dose: Not Given Documented by: [id number] Cosigned by: [id number] Admin: 08/03/18 20:20 Dose: Not Given Documented by: [id number] Cosigned by: [id number] Admin: 08/03/18 16:43 Dose: Not Given Documented by: [id number] Cosigned by: [id number] Admin: 08/03/18 11:49 Dose: Not Given Documented by: [id number] Cosigned by: [id number] Admin: 08/03/18 07:42 Dose: Not Given Documented by: [id number] Cosigned by: [id number] Admin: 08/02/18 20:27 Dose: Not Given Documented by: [id number] Cosigned by: [id number] Admin: 08/02/18 17:02 Dose: Not Given Documented by: [id number] Cosigned by: [id number] Admin: 08/02/18 12:21 Dose: 4 units Documented by: [id number] Cosigned by: [id number] Admin: 08/02/18 09:06 Dose: Not Given Documented by: [id number] Cosigned by: [id number] Admin: 08/01/18 20:11 Dose: Not Given Documented by: [id number] Admin: 08/01/18 16:00 Dose: Not Given Documented by: [id number] Admin: 08/01/18 10:49 Dose: Not Given Documented by: [id number] Admin: 08/01/18 07:48 Dose: Not Given Documented by: [id number] Admin: 07/31/18 19:39 Dose: Not Given Documented by: [id number] Admin: 07/31/18 16:16 Dose: Not Given Documented by: [id number] Admin: 07/31/18 12:52 Dose: Not Given Documented by: [id number] Metoprolol Succinate (Toprol Xl) 100 mg PO DAILY VICTOR M Stop: 09/05/18 08:59 Last Admin: 08/07/18 08:49 Dose: 100 mg Documented by: [id number] Admin: 08/06/18 09:03 Dose: 100 mg Documented by: [id number] Oxycodone HCl (Roxicodone Immediate Rel) 5 mg PO Q4 PRN PRN Reason: Pain Stop: 08/19/18 09:17 Last Admin: 08/07/18 08:49 Dose: 5 mg Documented by: [id number] Admin: 08/07/18 02:33 Dose: 5 mg Documented by: [id number] Admin: 08/06/18 15:56 Dose: 5 mg Documented by: [id number] Admin: 08/06/18 09:40 Dose: 5 mg Documented by: [id number] Admin: 08/06/18 02:54 Dose: 5 mg Documented by: [id number] Pantoprazole Sodium (Protonix) 40 mg PO DAILY VICTOR M Stop: 08/31/18 08:59 Last Admin: 08/07/18 08:50 Dose: 40 mg Documented by: [id number] Admin: 08/06/18 07:42 Dose: 40 mg Documented by: [id number] Admin: 08/05/18 08:27 Dose: 40 mg Documented by: [id number] Admin: 08/04/18 16:45 Dose: Not Given Documented by: [id number] Admin: 08/03/18 08:27 Dose: 40 mg Documented by: [id number] Admin: 08/02/18 08:58 Dose: 40 mg Documented by: [id number] Admin: 08/01/18 08:12 Dose: 40 mg Documented by: [id number] Quetiapine Fumarate (Seroquel) 50 mg PO DAILY VICTOR M Stop: 08/31/18 08:59 Last Admin: 08/07/18 08:50 Dose: 50 mg Documented by: [id number] Admin: 08/06/18 07:42 Dose: 50 mg Documented by: [id number] Admin: 08/05/18 08:28 Dose: 50 mg Documented by: [id number] Admin: 08/04/18 16:47 Dose: 50 mg Documented by: [id number] Admin: 08/02/18 10:09 Dose: Not Given Documented by: [id number] Admin: 08/01/18 08:11 Dose: 50 mg Documented by: [id number] Quetiapine Fumarate (Seroquel) 300 mg PO HS VICTOR M Stop: 08/30/18 20:59 Last Admin: 08/06/18 21:11 Dose: 300 mg Documented by: [id number] Admin: 08/05/18 21:06 Dose: 300 mg Documented by: [id number] Admin: 08/04/18 21:16 Dose: 300 mg Documented by: [id number] Admin: 08/03/18 20:19 Dose: 300 mg Documented by: [id number] Admin: 08/01/18 20:25 Dose: 300 mg Documented by: [id number] Admin: 07/31/18 22:22 Dose: 300 mg Documented by: [id number] Rivaroxaban (Xarelto) 20 mg PO PM VICTOR M Stop: 09/04/18 20:59 Last Admin: 08/06/18 21:11 Dose: 20 mg Documented by: [id number] Admin: 08/05/18 21:06 Dose: 20 mg Documented by: [id number] Senna/Docusate Sodium (Senokot S) 1 tab PO QAM VICTOR M Stop: 09/03/18 08:59 Last Admin: 08/07/18 08:51 Dose: 1 tab Documented by: [id number] Admin: 08/06/18 07:41 Dose: 1 tab Documented by: [id number] Admin: 08/05/18 08:28 Dose: 1 tab Documented by: [id number] Admin: 08/04/18 16:45 Dose: Not Given Documented by: [id number] Trazodone HCl (Desyrel) 200 mg PO HS [facility] Stop: 08/30/18 20:59 Last Admin: 08/06/18 21:11 Dose: 200 mg Documented by: [id number] Admin: 08/05/18 21:18 Dose: 200 mg Documented by: [id number] Admin: 08/01/18 20:25 Dose: 200 mg Documented by: [id number] Admin: 07/31/18 22:21 Dose: 200 mg Documented by: [id number]
--- NOTE | 2018-08-07 17:54 | Cardiology Progress Note ---
Date of Service August 07, 2018 Assessment & Plan (1) Atrial fibrillation: She remains in atrial fibrillation with a heart rate averaging around 100 bpm, this is not changed much this admission. She is not on a lot of rate control medications, not tolerating them in the past I believe. Blood pressure is a little bit low. I am going to try digoxin to see if that can help with rate control. Ultimately our plan is to perform AV jennifer block by catheter ablation, but I am not been able to schedule that as yet. (2) Nonischemic cardiomyopathy: She is on reasonable doses of carvedilol, here for blood pressure will stand it. I am going to try digoxin first and if that does not work for rate control we will try to increase the carvedilol, over the long run for cardiomyopathy we should try to increase the carvedilol and add an NIKO/ARB. Subjective I saw her earlier this morning and then again today. She was somewhat tearful this afternoon, her heart rate is still rapid and she still does not feel well. I offered her the option of going home and coming back when we can schedule her ablation, but she preferred to stay. I am not sure I can do it tomorrow although it is possible but not likely. She would still prefer to stay. Physical Exam Vital Signs (Past 24 Hours): Last Vital Signs Temp 36.5 C 08/07/18 15:01 Pulse 120 H 08/07/18 15:01 Resp 19 08/07/18 15:01 BP 93/73 L 08/07/18 15:01 Pulse Ox 98 08/07/18 15:01 Physical Exam: Constitutional: Alert, cooperative and in no distress. Pulmonary: Clear to auscultation bilaterally. Cardiac: Irregular rhythm with no murmur, gallop or rub. Abdomen: Soft, nontender with normal bowel sounds. Extremities: No edema. Skin: No rash, ecchymoses or petechiae. Results & Data Diagnostic Findings Telemetry: Atrial fibrillation with an overall rapid heart rate, averaging around 100 bpm (1) Atrial fibrillation Atrial fibrillation type: unspecified Qualified Code(s): I48.91 - Unspecified atrial fibrillation
[2018-08-07] MEDS: DIGOXIN 0.25 MG TAB PO SCH ×2 (21:49→22:53)
[2018-08-07] MEDS: TRAZODONE HCL 100 MG TAB PO SCH (21:51)
[2018-08-07] MEDS: RIVAROXABAN 20 MG TAB PO SCH (21:52)
[2018-08-07] MEDS: QUETIAPINE FUMARATE 300 MG TABLET PO SCH (21:53)
--- NOTE | 2018-08-07 22:59 | Hospitalist Progress Note ---
Date of Service August 07, 2018 Assessment & Plan (1) Acute kidney injury: Patient required emergent dialysis earlier in the hospital stay Since then she has been making urine. And creatinine is improving. It appears patient was likely having cardiorenal failure. Doubt that this was iatrogenic from diuretics. Patient is doing well in tele. Patient failed ablation but had ICD upgraded last week.. Will continue to monitor Is and Os. Plan was for repeat ablation on tuesday but was posponed due to scheduling issues. May have it on 08/09 (2) Hyperkalemia: Requried dialysis on 08/02 Resolved (3) Atrial fibrillation with RVR: Patient with history of the same. She was cardioverted in June. Presents today in AF with RVR. Most likely contributing to her SOB, possibly some CHF in setting of poor rate control. She reports compliance with her medications. HR improved slightly with Metoprolol given in ER. Digoxin level=0.4 will continue betablocker. -Continue Rivaroxaban for anticoagulation. Appreciate cardiac input. (4) Shortness of breath: Patient appears to be improving due to dialysis and improved urine output. Will continue to monitor. (5) Acute on chronic systolic heart failure: Patient with history of NICM with poor EF. Possibly in mild failure now - SOB, PVC on CXR -Supplemental O2 as needed -Echo as above No longer in exacerbation. (6) Pericardial effusion: History of the same. Suspected pericarditis during last hospital stay. Does not appear to have tamponade at this time - no JVD, heart sounds pronounced, BP maintained. Autoimmune workup during last hospital stay with Positive JOHNSON, 1:80 in nucleolar pattern (most commonly associated with scleroderma, CREST, systemic sclerosis and Sjogren's). -Repeat echo to assess effusion -Continue Colchicine 0.6mg po BID -Patient is to followup with Rheumatology in October 2018 as scheduled (7) Diabetes: Blood sugar well controlled at present. Patient is on Metformin at home. A1C=6 in 04/2018 -Hold Metformin -Lantus 8u BID -ISS based on weight -Continue to monitor (8) Chronic respiratory failure with hypoxia: No respiratory distress at present. Subjective SOB. Adequate oxygenation -Supplemental O2 as needed (9) Morbid obesity: Noted. Encourage lifestyle modification, diet and exercise (10) Schizoaffective disorder: Stable. -Continue Seroquel but on PM dose to decrease daytime sleepiness. -Continue Trazodone (11) GERD (gastroesophageal reflux disease): Stable. -Continue Omeprazole (12) Hypokalemia: resolved. (13) COPD (chronic obstructive pulmonary disease): Stable. No wheeze. Adequate oxygenation on NC -Albuterol PRN (14) Electrolyte imbalance: As noted above. (15) DVT prophylaxis: Patient anticoagulated with Xarelto resumed in the evening of 3/2 Ambulate as tolerated No asymmetrical edema Continue to monitor Spent 25 minutes in the management of patient. Subjective Patient reports no new symptoms today. Patient denies fever, chills. Physical Exam Vital Signs (Past 24 Hours): Last Vital Signs Temp 36.3 C L 08/07/18 19:14 Pulse 101 H 08/07/18 22:53 Resp 20 08/07/18 19:14 BP 96/73 L 08/07/18 19:14 Pulse Ox 95 08/07/18 19:14 Physical Exam: GENERAL : No distress. EYES: No icterus, gaze conjugate NOSE: No evidence of epistaxis MOUTH: No lesions or candidiasis. No facial droop. Tongue is midline NECK: Supple. No carotid bruits LUNGS: CTA B/L, no wheezes, rales or rhonchi. using accesory muscles to breath. HEART: Irregular, irregular, tachycardic ABDOMEN: Soft, NT, ND, BS Present EXTREMITIES: No LE edema, pedal pulses intact. 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
[2018-08-08] MEDS: DIGOXIN 0.25 MG TAB PO SCH ×2 (02:16→06:21)
[2018-08-08] MEDS: BENZONATATE 100 MG CAPSULE PO PRN ×3 (03:53→20:29)
[2018-08-08] MEDS: OXYCODONE HCL IR 5 MG TAB (IMMEDIATE RELEASE) PO PRN ×3 (03:53→14:40)
[2018-08-08] MEDS: ATORVASTATIN 10 MG TAB PO SCH (07:54)
[2018-08-08] MEDS: BUMETANIDE 1 MG TAB PO SCH (07:54)
[2018-08-08] MEDS: METOPROLOL SUCC 50MG EXT REL TAB PO SCH (07:55)
[2018-08-08] MEDS: DOCUSATE SODIUM/SENNA 50/8.6MG TAB PO SCH (07:55)
[2018-08-08] MEDS: guaiFENesin 600 MG TABCR PO SCH ×2 (07:55→20:07)
[2018-08-08] MEDS: PANTOprazole 40 MG TAB PO SCH (07:55)
[2018-08-08] MEDS: DOCUSATE SODIUM 100 MG CAP PO SCH ×2 (07:56→20:07)
[2018-08-08] MEDS: INSULIN ASPART 100 UNITS/ML 3 ML PEN SC SCH ×4 (07:57→21:20)
[2018-08-08] MEDS ORDERED: METOPROLOL SUCC 50MG EXT REL TAB PO ONE (12:30)
--- NOTE | 2018-08-08 15:28 | Cardiology Progress Note ---
Date of Service August 08, 2018 Assessment & Plan (1) Atrial fibrillation: She remains in atrial fibrillation with a heart rate which is much better controlled now and is consistently less than 100, this is on a loading dose of digoxin and her metoprolol 100 mg daily which I increased to 150 mg this morning. Blood pressure is adequate. Her digoxin level is elevated, however it was drawn around the time of the dose so I do not think it means much. I am not going to give her digoxin today and repeat the level tomorrow. (2) Nonischemic cardiomyopathy: She is on reasonable doses of metoprolol, I am going to gradually try to increase that to see if her blood pressure holds. Over the long run for cardiomyopathy we should try to convert to carvedilol and add an NIKO/ARB if we can maintain heart rate control. Subjective She seems better today, she is no longer tearful, she has no cardiovascular complaints although she seems confused. Physical Exam Vital Signs (Past 24 Hours): Last Vital Signs Temp 36.6 C 08/08/18 10:51 Pulse 114 H 08/08/18 12:00 Resp 19 08/08/18 10:51 BP 112/74 08/08/18 10:51 Pulse Ox 95 08/08/18 10:51 Physical Exam: Constitutional: Alert, cooperative and in no distress. Pulmonary: Clear to auscultation bilaterally. Cardiac: Irregular rhythm with no murmur, gallop or rub. Abdomen: Soft, nontender with normal bowel sounds. Extremities: No edema. Skin: No rash, ecchymoses or petechiae. Results & Data Diagnostic Findings Telemetry: Heart rate is much better controlled today than it was yesterday afternoon or evening. Remains in atrial fibrillation. (1) Atrial fibrillation Atrial fibrillation type: unspecified Qualified Code(s): I48.91 - Unspecified atrial fibrillation
[2018-08-08] MEDS: TRAZODONE HCL 100 MG TAB PO SCH (20:07)
[2018-08-08] MEDS: RIVAROXABAN 20 MG TAB PO SCH (20:08)
[2018-08-08] MEDS: QUETIAPINE FUMARATE 300 MG TABLET PO SCH (20:08)
--- NOTE | 2018-08-08 23:52 | Hospitalist Progress Note ---
Date of Service August 08, 2018 Assessment & Plan (1) Acute kidney injury: Patient required emergent dialysis earlier in the hospital stay Since then she has been making urine. It appears patient was likely having cardiorenal failure. Doubt that this was iatrogenic from diuretics. Patient is doing well in tele. Creatinine is back to baseline. (2) Hyperkalemia: Requried dialysis on 08/02 Resolved (3) Atrial fibrillation with RVR: Patient with history of the same. She was cardioverted in June. Presents today in AF with RVR. Most likely contributing to her SOB, possibly some CHF in setting of poor rate control. She reports compliance with her medications. HR improved slightly with Metoprolol given in ER. Digoxin level=0.4 will continue betablocker. and dig. Betablocker increased to 150 mg bid. will recheck dig level in AM -Continue Rivaroxaban for anticoagulation. Appreciate cardiac input. May hod off repeat ablation if HR improves (4) Shortness of breath: Patient appears to be improving due to dialysis and improved urine output. Will continue to monitor. (5) Acute on chronic systolic heart failure: Patient with history of NICM with poor EF. Possibly in mild failure now - SOB, PVC on CXR -Supplemental O2 as needed -Echo as above No longer in exacerbation. (6) Pericardial effusion: History of the same. Suspected pericarditis during last hospital stay. Does not appear to have tamponade at this time - no JVD, heart sounds pronounced, BP maintained. Autoimmune workup during last hospital stay with Positive JOHNSON, 1:80 in nucleolar pattern (most commonly associated with scleroderma, CREST, systemic sclerosis and Sjogren's). -Repeat echo to assess effusion -Continue Colchicine 0.6mg po BID -Patient is to followup with Rheumatology in October 2018 as scheduled (7) Diabetes: Blood sugar well controlled at present. Patient is on Metformin at home. A1C=6 in 04/2018 -Hold Metformin -Lantus 8u BID -ISS based on weight -Continue to monitor (8) Chronic respiratory failure with hypoxia: No respiratory distress at present. Subjective SOB. Adequate oxygenation -Supplemental O2 as needed (9) Morbid obesity: Noted. Encourage lifestyle modification, diet and exercise (10) Schizoaffective disorder: Stable. -Continue Seroquel but at evening dose. To decrease daytime sleepiness. -Continue Trazodone (11) GERD (gastroesophageal reflux disease): Stable. -Continue Omeprazole (12) Hypokalemia: resolved. (13) COPD (chronic obstructive pulmonary disease): Stable. No wheeze. Adequate oxygenation on NC -Albuterol PRN (14) Electrolyte imbalance: As noted above. (15) DVT prophylaxis: Patient anticoagulated with Xarelto resumed in the evening of 3/2 Ambulate as tolerated No asymmetrical edema Continue to monitor Spent 25 minutes in the management of patient. Subjective Patient reports doing well. She reports feeling better today. She denies any new symptoms Physical Exam Vital Signs (Past 24 Hours): Last Vital Signs Temp 36.4 C L 08/08/18 23:11 Pulse 75 08/08/18 23:23 Resp 19 08/08/18 23:11 BP 106/62 08/08/18 23:11 Pulse Ox 97 08/08/18 23:11 Physical Exam: GENERAL : No distress. EYES: No icterus, gaze conjugate NOSE: No evidence of epistaxis MOUTH: No lesions or candidiasis. No facial droop. Tongue is midline NECK: Supple. No carotid bruits LUNGS: CTA B/L, no wheezes, rales or rhonchi. using accesory muscles to breath. HEART: Irregular, irregular, tachycardic ABDOMEN: Soft, NT, ND, BS Present EXTREMITIES: No LE edema, pedal pulses intact. All extremities are cool to touch NEURO: A&OX3 (1) Diabetes Diabetes mellitus complication status: without complication Diabetes mellitus terminal superintendent insulin use: without fdc use Diabetes mellitus type: type 2 Qualified Code(s): E11.9 - Type 2 diabetes mellitus without complications (2) Schizoaffective disorder Schizoaffective disorder type: other Qualified Code(s): F25.8 - Other schizoaffective disorders (3) COPD (chronic obstructive pulmonary disease) COPD type: unspecified COPD Qualified Code(s): J44.9 - Chronic obstructive pulmonary disease, unspecified (4) GERD (gastroesophageal reflux disease) Esophagitis presence: esophagitis presence not specified Qualified Code(s): K 21.9 - Gastro-esophageal reflux disease without esophagitis
[2018-08-09] MEDS: BENZONATATE 100 MG CAPSULE PO PRN ×2 (03:19→20:39)
[2018-08-09] MEDS: OXYCODONE HCL IR 5 MG TAB (IMMEDIATE RELEASE) PO PRN ×4 (03:20→17:17)
[2018-08-09] MEDS: INSULIN ASPART 100 UNITS/ML 3 ML PEN SC SCH ×4 (08:03→20:42)
[2018-08-09] MEDS: DOCUSATE SODIUM/SENNA 50/8.6MG TAB PO SCH (08:04)
[2018-08-09] MEDS: BUMETANIDE 1 MG TAB PO SCH (08:04)
[2018-08-09] MEDS: PANTOprazole 40 MG TAB PO SCH (08:05)
[2018-08-09] MEDS: guaiFENesin 600 MG TABCR PO SCH ×2 (08:05→20:42)
[2018-08-09] MEDS: ATORVASTATIN 10 MG TAB PO SCH (08:05)
[2018-08-09] MEDS: DOCUSATE SODIUM 100 MG CAP PO SCH ×2 (08:05→20:42)
--- NOTE | 2018-08-09 08:21 | Hospitalist Progress Note ---
Date of Service August 09, 2018 Assessment & Plan (1) Atrial fibrillation with RVR: Patient with history of the same. She was cardioverted in June. Presents in AF with RVR. Most likely contributing to her SOB, possibly some acute diaslolic HF in setting of poor rate control. HR improved slightly with Metoprolol given in ER. Digoxin continues continue betablocker. Betablocker increased to 200 mg daily of extended release following dig level -Continue Rivaroxaban for anticoagulation. Cardiology changed to BiV pacer discussion of ablation to be performed as an outpatient (2) Acute kidney injury: Patient required emergent dialysis earlier in the hospital stay Since then she has been making urine. It appears patient was likely having cardiorenal failure.. Creatinine is back to baseline. (3) Hyperkalemia: Requried dialysis on 08/02 Resolved (4) Shortness of breath: Patient appears to be improving after dialysis and improved urine output. (5) Acute on chronic systolic heart failure: Patient with history of NICM with poor EF. now resolved with volume management and rate control (6) Pericardial effusion: History of the same. Suspected pericarditis during last hospital stay. Does not appear to have tamponade at this time Autoimmune workup during last hospital stay with Positive JOHNSON, 1:80 in nucleolar pattern (most commonly associated with scleroderma, CREST, systemic sclerosis and Sjogren's). -Continue Colchicine 0.6mg po BID -Patient is to followup with Rheumatology in October 2018 as scheduled (7) Diabetes: Blood sugar well controlled at present. Patient is on Metformin at home. A1C=6 in 04/2018 Resume metformin and cover with sliding scale only for glucoses are elevated continue sulfonylurea and have sheet metal technician (8) Chronic respiratory failure with hypoxia: No respiratory distress at present. Subjective SOB. Adequate oxygenation -Supplemental O2 as needed (9) Morbid obesity: Noted. counselled regarding lifestyle modification, diet and exercise (10) Schizoaffective disorder: Stable on Seroquel evening dose. -Continue Trazodone (11) GERD (gastroesophageal reflux disease): Stable.Omeprazole (12) Hypokalemia: resolved. (13) COPD (chronic obstructive pulmonary disease): Stable. No wheeze. Adequate oxygenation on NC -Albuterol PRN (14) DVT prophylaxis: Patient anticoagulated with Xarelto resumed in the evening of 3/2 Ambulate as tolerated No asymmetrical edema Continue to monitor Subjective Patient has no complaints or problems but is marked concern about her diabetes. This is also slightly worsened by the fact we held her metformin. Her glucoses have not been drilled not been elevated but we have been carb covering her. Patient had a successful biV pacer adjustment on 08 August. We will take the opportunity to restart her metformin at diabetic education and consider sulfonylurea before discharging her home likely on the , will have outpatient follow-up with Dr. solano considering outpatient ablation Review of Systems ROS: well nourished well developed. No double vision blurry vision No problems with speech or swallowing No palpitations, chest pain or pressure No Wheezing or breathing issues No abdominal pain nausea vomiting diarrhea changes in appetite or weight No burning urine urine frequency or changes in color No focal joint pain or muscle pain No skin rashes or oral lesions No unusual bruising or bleeding No focused back pain or numbness or loss of strength No changes in memory or confusion Physical Exam Vital Signs (Past 24 Hours): Last Vital Signs Temp 36.7 C 08/09/18 07:15 Pulse 83 08/09/18 07:15 Resp 18 08/09/18 07:15 BP 108/70 08/09/18 07:15 Pulse Ox 92 08/09/18 07:15 The patient appeared well nourished and normally developed. Vital signs as documented. Head exam is unremarkable. normocephalic, atraumatic Neck is without jugular venous distension, thyromegaly, or lymphademopathy Lungs are clear to auscultation and percussion. Cardiac exam reveals Rhythm is regular. First and second heart sounds normal. Abdominal exam reveals normal bowel sounds, no masses, no organomegaly Extremities are nonedematous and both pedal pulses are present Neurologic exam is A&Ox3, no focal deficits, strength is equal bilateral Psychologically seems neither anxious or depressed Skin is warm Dry without bruises or lesions (1) Diabetes Diabetes mellitus complication status: without complication Diabetes mellitus intermediate teacher insulin use: without intermediate teacher use Diabetes mellitus type: type 2 Qualified Code(s): E11.9 - Type 2 diabetes mellitus without complications (2) Schizoaffective disorder Schizoaffective disorder type: other Qualified Code(s): F25.8 - Other schizoaffective disorders (3) COPD (chronic obstructive pulmonary disease) COPD type: unspecified COPD Qualified Code(s): J44.9 - Chronic obstructive pulmonary disease, unspecified (4) GERD (gastroesophageal reflux disease) Esophagitis presence: esophagitis presence not specified Qualified Code(s): K21.9 - Gastro-esophageal reflux disease without esophagitis
[2018-08-09] MEDS ORDERED: METOPROLOL SUCC 50MG EXT REL TAB PO SCH (09:00)
[2018-08-09 09:04] LABS: BUN Creatinine Ratio 25.9 (10-20); Calcium 8.8 mg/dl (8.5-10.1); Est GFR (African American) 88.8; Est GFR (Non-African American) 76.6
[2018-08-09 10:01] LABS: Potassium 3.6 mmol/L (3.5-5.1)
[2018-08-09] MEDS ORDERED: METOPROLOL SUCC 50MG EXT REL TAB PO ONE (10:15)
[2018-08-09] MEDS: DIGOXIN 0.125 MG TAB PO SCH (17:14)
[2018-08-09] MEDS: METFORMIN HCL 500 MG TAB PO SCH (17:15)
[2018-08-09] MEDS: TRAZODONE HCL 100 MG TAB PO SCH (20:42)
[2018-08-09] MEDS: RIVAROXABAN 20 MG TAB PO SCH (20:42)
[2018-08-09] MEDS: QUETIAPINE FUMARATE 300 MG TABLET PO SCH (20:42)
[2018-08-10] MEDS: OXYCODONE HCL IR 5 MG TAB (IMMEDIATE RELEASE) PO PRN (05:08)
[2018-08-10 07:36] LABS: Estimated Average Glucose 126 mg/dl
[2018-08-10] MEDS: BENZONATATE 100 MG CAPSULE PO PRN (07:40)
[2018-08-10] MEDS: DOCUSATE SODIUM/SENNA 50/8.6MG TAB PO SCH (07:40)
[2018-08-10] MEDS: BUMETANIDE 1 MG TAB PO SCH (07:40)
[2018-08-10] MEDS: guaiFENesin 600 MG TABCR PO SCH (07:41)
[2018-08-10] MEDS: PANTOprazole 40 MG TAB PO SCH (07:41)
[2018-08-10] MEDS: METFORMIN HCL 500 MG TAB PO SCH (07:41)
[2018-08-10] MEDS: DOCUSATE SODIUM 100 MG CAP PO SCH (07:41)
[2018-08-10] MEDS: ATORVASTATIN 10 MG TAB PO SCH (07:41)
[2018-08-10] MEDS: ACETAMINOPHEN 325 MG TAB PO PRN (07:49)
[2018-08-10] MEDS: INSULIN ASPART 100 UNITS/ML 3 ML PEN SC SCH ×2 (07:52→12:30)
[2018-08-10] MEDS ORDERED: METOPROLOL SUCC 50MG EXT REL TAB PO SCH (09:00)
[2018-08-10] MEDS: DIGOXIN 0.125 MG TAB PO SCH (15:55)
--- NOTE | 2018-08-10 18:31 | Discharge Summary ---
Date of Service August 10, 2018 Admission HPI Per Admitting Provider Per H&P: Patient is a 57yo AA female with multiple medical problems to include atrial fibrillation, Type II DM, HTN, CHF with EF of 25-30% per echo 06/30/18, ventricular arrhythmia s/p AICD placement, and known pericardial effusion. She was recently admitted to [facility] from 06/28/18 to 07/06/18 for severe dyspnea/CHF and chest pain. During that hospital stay her pericardial effusion was found to be slightly larger. She was also thought to have pericarditis from the effusion causing her chest pain. An autoimmune workup was pursued and she was started on Colchicine 0.6mg po BID with resolution of her chest discomfort. Patient states that she has not felt right since her recent discharge. She has had persistent and progressive SOB as well as more frequent palpitations and racing heart. Decreased exercise tolerance and inability to perform ADLs due to SOB. She has been coughing for the last 24 hours - productive for white frothy sputum. She states that she has chest discomfort only when she coughs as well as orthopnea. She denies weight gain, edema, fevers, chills, abdominal pain or distention, nausea/vomiting/diarrhea or constipation. She states that she sweats frequently and feels overheated - no changes in these complaints. Patient has AICD in place, no discharges since 2013. At the time I see the patient she is sitting upright in her bed attempting to eat her lunch. She appears tired but easily arouses to voice. It is difficult to get consistent information as about every minute and a half she falls asleep and must be awakened. She loses track of the question which then has to be repeated and I do not always get an appropriate answer. She indicates that she is seen by Danyelle GARRISON at [facility] for what she believes to be bipolar disorder. She is unclear about the dosages of her medications going back and forth. She is unable to characterize her mood for me just repeating that she cannot sleep. When asked if she is sleeping at night she says that she is but "I go in and out of consciousness". She denies that she is suicidal. She reports poor appetite and indeed is struggling to eat her lunch today having spit out the only bite of hamburger that she took. She reports poor concentration and focus and reported decreased interest in previously satisfying activities. She denies anxiety. She is unable to answer questions about hallucinations. Given that she says she is treated for bipolar disorder I asked her if she has ever had a manic episode and she denies. Principal Diagnosis Atrial fibrillation ventricular rate adjustment of pacemaker and medications Discharge Exam Vitals are stable with increased medications Constitutional well developed and average body habitus Eyes no conjunctival abnormality and no scleral abnormality Neck normal visual inspection and trachea midline Respiratory normal respiratory effort; no respiratory distress Auscultation: lungs clear to auscultation bilaterally Cardiovascular Rate/Rhythm: + abnormal rhythm and not tachycardic Gastrointestinal (Abdomen) normal bowel sounds, soft, nontender, no hepatosplenomegaly Musculoskeletal no cyanosis or clubbing, extremities motor strength 5 Discharge Data Allergies Allergy/AdvReac Type Severity Reaction Status Date / Time fentanyl Allergy Mild RASH,ITCHIN Verified 07/31/18 09:49 G Consultations 07/31/18 11:40 Consult Cardiology Routine 07/31/18 13:01 Consult Case Management - Discharge Planning Routine 08/02/18 09:51 Consult Nephrology Stat Consult Patient Services Stat 08/06/18 15:30 Consult Psychiatry Routine Procedures Performed Operation Date: 08/02/18 11:05 Actual Procedures p Right Heart Cath Only - Naeem Pelayo MD s Ultrasound Vascular Access - Naeem Pelayo MD Operation Date: 08/04/18 09:50 Actual Procedures s AV Node Ablation - Naeem Pelayo MD p Upgrade of any system to BIV(Not Applicable) - Naeem Pelayo MD s Venogram, Unilateral(Not Applicable) - Naeem Pelayo MD Operation Date: 08/08/18 15:00 <No data on this case meets the specified criteria> Ordered Studies 08/02/18 09:54 US renal/blad retro comp Urgent 08/02/18 09:57 US point of care ultrasound Routine 08/04/18 10:15 EP Lab Images for PACS ONCE Hospital Course (1) Atrial fibrillation with RVR: Patient with history of the same. She was cardioverted in June. Presents in AF with RVR. Most likely contributing to her SOB, possibly some acute diaslolic HF in setting of poor rate control. HR improved slightly with Metoprolol given in ER. Digoxin continues continue betablocker. Betablocker increased to 200 mg daily of extended release following dig level -Continue Rivaroxaban for anticoagulation. Cardiology changed to BiV pacer discussion of ablation to be performed as an outpatient (2) Acute kidney injury: Patient required emergent dialysis earlier in the hospital stay Since then she has been making urine. It appears patient was likely having cardiorenal failure.. Creatinine is back to baseline. (3) Hyperkalemia: Requried dialysis on 08/02 Resolved (4) Shortness of breath: Patient appears to be improving after dialysis and improved urine output. (5) Acute on chronic systolic heart failure: Patient with history of NICM with poor EF. now resolved with volume management and rate control (6) Pericardial effusion: History of the same. Suspected pericarditis during last hospital stay. Does not appear to have tamponade at this time Autoimmune workup during last hospital stay with Positive JOHNSON, 1:80 in nucleolar pattern (most commonly associated with scleroderma, CREST, systemic sclerosis and Sjogren's). -Continue Colchicine 0.6mg po BID -Patient is to followup with Rheumatology in October 2018 as scheduled (7) Diabetes: Blood sugar well controlled at present. Patient is on Metformin at home. A1C=6 in 04/2018 repeat was also 6 his hospital stay Resume metformin and if glucoses are elevated continue sulfonylurea and have paraeducator (8) Chronic respiratory failure with hypoxia: No respiratory distress at present. Subjective SOB. Adequate oxygenation -Supplemental O2 as needed (9) Morbid obesity: Noted. counselled regarding lifestyle modification, diet and exercise (10) Schizoaffective disorder: Stable on Seroquel evening dose. -Continue Trazodone (11) GERD (gastroesophageal reflux disease): Stable.Omeprazole (12) Hypokalemia: resolved. (13) COPD (chronic obstructive pulmonary disease): Stable. No wheeze. Adequate oxygenation on NC -Albuterol PRN (14) DVT prophylaxis: Patient anticoagulated with Xarelto resumed in the evening of 3/2 Ambulate as tolerated No asymmetrical edema Continue to monitor Total Time Total Time Spent Total Time Spent (In Minutes): greater than 30 minutes were required to prepare discharge Discharge Plan Discharge Items Patient Disposition: Home - Home Health Services Reason For Visit: AF WITH RVR Discharge Diagnosis: rapid heart rate, pacemaker adjustment Discharge Goals: Decrease discomfort, Diagnostic testing and Improve disease control Activity: Resume your previous activity Lifting: Wait until after follow-up appointment Bathing: Keep incision dry Non-emergency contact: Primary Care Provider and Intellectual Property Counsel Call non-emergency contact if: you have any medication questions Follow-up/Referrals: Ron Christensen MD [Physician] - 08/23/18 11:00 am (Please, follow up at [facility] Cardiology Office with Dr. Christensen's loan assistant, Floyd Gan PA-C, on TuesdayAugust 23 at 11:00 am. *If you need to change this appointment, call their office at [phone].) Antonio Oliver MD [Primary Care Provider] - 08/22/18 11:40 am (Please, follow up with Dr. Roper on TuesdayAugust 22 at 11:40 am. *If you need to change this appointment, call the office at [phone].) Catalina Almanza PA-C [Family Provider] - 08/14/18 10:00 am (Please, follow up at [facility] Cardiology Office with Catalina Almanza PA-C on TuesdayAugust 14 at 10:00 am. *If you need to change this appointment, call the office at [phone].) Diet: Regular Addtl Provider Instructions: Dr Christensen has changed some medicatioins, metoprolol is 200mg twice a day and changed furosemide to budesonide Call your Primary Care doctor if any of the following symptoms or problems start or get worse: * Shortness of breath or difficulty breathing * Wake up at night short of breath * Chest pain * Cough * Swelling of your hands, feet, or legs * More fatigued or tired with your normal activity * Palpitations - sudden fast heart beats WEIGHT * Weigh yourself every morning after using the bathroom. * Use the same scale. * Wear the same amount of clothing. * Write your weight down on a chart. * Call your Primary Care doctor if you gain more than 2-3 pounds in 1-2 days. MEDICATIONS * Use this discharge instruction sheet for medication instructions. * Take your medications at the time your doctor ordered. * Do not skip a dose of your medicines. * If you miss a dose of medicine, take it as soon as possible, but DO NOT DOUBLE A DOSE. * Read your medicine information when you get home. * Know all of the side effects of your medicine. If in doubt, ask your pharmacist * Call your Primary Care doctor's office if you have any side effects. * Be sure all of your doctors know what medicine and herbs you take (including cold, flu, and herbal medicine). Take the following with you to your follow-up doctor appointments: * Weight Chart * Medication List * List of questions Do not drink excessive alcohol, beer or wine. Prescriptions: New metoprolol succinate 50 mg Tablet Extended Release 24 Hr 100 mg PO QAM Qty: 60 RF: 6 bumetanide 1 mg Tablet 2 mg PO QAM Qty: 30 RF: 3 Continued potassium chloride 20 mEq tablet,ER particles/crystals 20 meq PO DAILY RF: 0 colchicine [Colcrys] 0.6 mg Tablet 0.6 mg PO BID Qty: 60 RF: 2 trazodone 100 mg Tablet 200 mg PO HS RF: 0 metformin 500 mg Tablet 500 mg PO BID RF: 0 gabapentin 600 mg Tablet 600 mg PO BID RF: 0 quetiapine [Seroquel] 300 mg Tablet 300 mg PO HS RF: 0 atorvastatin 10 mg Tablet 10 mg PO DAILY RF: 0 hydroxyzine pamoate [Vistaril] 50 mg Capsule 50 mg PO QPM RF: 0 diphenhydramine HCl [Benadryl] 25 mg Capsule 25 mg PO QAM RF: 0 docusate sodium [Colace] 100 mg Capsule 100 mg PO BID RF: 0 omeprazole 20 mg Capsule,Delayed Release(Dr/Ec) 20 mg PO DAILY RF: 0 digoxin 125 mcg Tablet 0.125 mg PO DAILY RF: 0 quetiapine [Seroquel] 50 mg Tablet 50 mg PO DAILY RF: 0 rivaroxaban [Xarelto] 20 mg Tablet 20 mg PO DAILY RF: 0 albuterol sulfate 90 mcg/actuation HFA aerosol inhaler 2 inha INH QID PRN (Reason: shortness of breath or wheezing) Qty: 6.7 RF: 1 Discontinued metoprolol succinate [Toprol XL] 50 mg tablet extended release 24 hr 50 mg PO DAILY Qty: 30 RF: 2 metoprolol succinate 25 mg Tablet Extended Release 24 Hr 25 mg PO DAILY RF: 0 Lasix 40 mg PO BID RF: 0 Stand-Alone Forms: Pending Sale To [facility] Discharge Orders: Discharge Order (Routine); Ordered 08/10/18 Ordered By: Mainor Cramer Admission Data Admit Date/Time: 07/31/18 10:56 Attending Provider: Mainor Cramer Admit Provider: Luisa Sanchez Primary Care Provider: Antonio Oliver V. Other Providers: Floyd Gan ; Samm Mejia ; Nolan Douglas ; Ron Christensen ; Jn Grewal Jr ; Noah Starks ; Kaylah Landrum ; Roberta Garcia ; Naeem Ross ; Naeem Pelayo ; Catarino Pandya ; Bennie Hicks ; Aron Schwarz ; Catalina Almanza ; Ilene Gamble ; Chikis Archibald ; Jo Strong ; Dashawn Mccall Service: Telemetry Other Interventions: Discharge Summary Assessment (RN) Last Done: 08/10/18 10:12 DC Date/Time DO NOT enter until pt leaves facility: 08/10/18 17:11
== END 2018-08-10 17:11 | disposition home health service (06) ==
LOC: ED 08:31 → SUATTDRO 10:56 → 2S 10:56 → 1E 08-02 09:54 → 2S 08-03 19:46
PROC: CLB.CRH (2018-08-02 11:05)

== ENCOUNTER 2018-08-18 10:15 | Inpatient (IN) ==
[2018-08-18 10:54] LABS: Basophils # (auto) 0.06 K/uL (0-0.2); Basophils % (auto) 0.6 %; Eosinophils # (auto) 0.08 K/uL (0-0.5); Eosinophils % (auto) 0.9 %; Hematocrit (blood only) 38.4 % (37-47); Hemoglobin 12.1 g/dL (12.0-16.0); Immature Granulocytes # (auto) 0.02 K/uL (0.00-0.02); Immature Granulocytes % (auto) 0.2 %; Lymphocytes % (auto) 21.5 %; Mean Corpuscular Hgb Conc 31.5 g/dL (32-36); Mean Corpuscular Volume 86.1 fL (80-100); Mean Platelet Volume 9.1 fL (7.4-10.4); Monocytes # (auto) 0.63 K/uL (0.11-0.59); Monocytes % (auto) 6.8 %; Neutrophils # (auto) 6.53 K/uL (1.4-6.5); Platelet Count 293 K/uL (130-400); RDW Coefficient of Variation 16.2 % (11.5-14.5); Red Blood Count 4.46 M/uL (4.2-5.4); White Blood Count 9.32 K/uL (4.8-10.8)
[2018-08-18 11:04] LABS: INR 1.2 (0.9-1.1); Partial Thromboplastin Time 27.8 Seconds (21.0-31.0); Prothrombin Time 12.2 Seconds (9.0-12.0)
[2018-08-18 11:11] LABS: Alanine Aminotransferase 30 U/L (12-78); Albumin Level 3.1 gm/dl (3.4-5.0); Aspartate Aminotransferase 14 U/L (15-37); BUN Creatinine Ratio 16.4 (10-20); Blood Urea Nitrogen 16 mg/dl (7-18); Calcium 9.5 mg/dl (8.5-10.1); Carbon Dioxide 32 mmol/L (21-32); Chloride 102 mmol/L (98-107); Est GFR (African American) 77.6; Glucose 92 mg/dl (70-99); Potassium 3.7 mmol/L (3.5-5.1); Sodium 139 mmol/L (136-145)
[2018-08-18 11:16] LABS: Albumin Globulin Ratio 0.7 (0.9-2); Alkaline Phosphatase 146 U/L (45-117); Globulin 4.6 gm/dl (2.5-4.0); Total Protein 7.7 gm/dl (6.4-8.2); Troponin I 0.016 ng/ml (0-0.045)
--- NOTE | 2018-08-18 11:23 | Emergency Department Note ---
History of Present Illness General Chief complaint: Shortness of Breath/Dyspnea Stated complaint: SHORTNESS OF BREATH Time Seen by Provider: 08/18/18 11:03 History of Present Illness Maximum Pain Intensity: 0 This is a 57-year-old female presenting to the emergency department for evaluati on of shortness of breath worsening over the past 1 day. The patient has a well-established history of heart failure, atrial fibrillation, cardioverter defibrillator in situ, and pulmonary hypertension. The patient was admitted to this facility roughly 2 weeks ago for similar symptoms after being in A. fib with RVR. The patient states that she has been sick off and on for the past 3 months, and had been doing well after her discharge earlier in the month. The patient reports that she does have a dog at home, that has been staying with friends as the patient has been ill for some time. The dog returned home to the patient 2 days ago, and now the patient is concerned that she may be allergic to the dog. The patient has shortness of breath at rest and with activity. She does describe some chest discomfort with coughing, but not distinct chest pain. She has had some upset stomach symptoms today as well. She does not report lightheadedness or dizziness. No new changes in medication from the time of discharge. No report of fever or chills. She does not believe that she has gained a significant amount of weight since discharge and has not noticed increased swelling of her legs or pain in her calves. She rates her overall discomfort a 5/10. Home Medications Home Medications Medication Instructions Recorded Confirmed Type Xarelto 20 mg PO DAILY 05/31/18 08/18/18 History atorvastatin 10 mg PO DAILY 05/31/18 08/18/18 History digoxin 0.125 mg PO DAILY 05/31/18 08/18/18 History diphenhydramine HCl [Benadryl] 25 mg PO QAM 05/31/18 08/18/18 History docusate sodium [Colace] 100 mg PO BID 05/31/18 08/18/18 History gabapentin 600 mg PO BID 05/31/18 08/18/18 History hydroxyzine pamoate [Vistaril] 50 mg PO QPM 05/31/18 08/18/18 History metformin 500 mg PO BID 05/31/18 08/18/18 History omeprazole 20 mg PO DAILY 05/31/18 08/18/18 History quetiapine [Seroquel] 50 mg PO DAILY 05/31/18 08/18/18 History quetiapine [Seroquel] 300 mg PO HS 05/31/18 08/18/18 History albuterol sulfate 2 inha INH QID PRN #6.7 gm 06/12/18 08/18/18 Rx colchicine [Colcrys] 0.6 mg PO BID #60 tab 07/06/18 08/18/18 Rx trazodone 0 mg PO HS 07/31/18 08/18/18 History bumetanide 2 mg PO QAM #30 tab 08/09/18 08/18/18 Rx metoprolol succinate 100 mg PO QAM #60 tab 08/09/18 08/18/18 Rx carvedilol 6.25 mg PO BID 08/18/18 08/18/18 History furosemide 40 mg PO BID 08/18/18 08/18/18 History spironolactone 12.5 mg PO DAILY 08/18/18 08/18/18 History Allergies Allergy/AdvReac Type Severity Reaction Status Date / Time fentanyl Allergy Mild RASH,ITCHIN Verified 07/31/18 09:49 G Past Med/Surg History Medical History Glaucoma Asthma (Chronic) CHF (congestive heart failure) (Chronic) 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% per echo 06/06/18; non-obstructive CAD per cath 2006 HTN (hypertension) (Chronic) PTSD (post-traumatic stress disorder) (Chronic) Atrial fibrillation Diabetes type 2, controlled patient denies having diabetes, does not want further testing even though she is prescribed Metformin GERD (gastroesophageal reflux disease) Morbid obesity Pulmonary embolism 2013 while living in [place] Schizoaffective disorder Ventricular arrhythmia Surgical History Pacemaker (Chronic) AICD (automatic cardioverter/defibrillator) present S/P ORIF (open reduction internal fixation) fracture ankle, left S/P tubal ligation Social History Preferred Language: Cameroonian Communication Ability: Effective Beliefs That Will Affect Care: None marital status: marital status details: 5 kids Current Living Situation: Alone Current Living Situation Comment: [facility] Resident 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: 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; 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; 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 other: lives in [place] Feels Safe at Home: No Safety Concerns: Afraid for Self Smoking Status: Former smoker Hx Alcohol Use: No Hx Substance Use: No Review of Systems A total of 10 systems reviewed and were otherwise negative Physical Exam Vital Signs Vital Signs - 24 hr 08/18/18 10:27 08/18/18 11:41 08/18/18 12:24 Temperature 36.8 C Temperature Source Oral Sepsis Recent Fever Within 48 Hours No Sepsis Action Taken by Nursing No Action Required Pulse Rate 78 76 Pulse Rate [Finger] 82 76 Pulse Rhythm [Finger] Pulse Strength [Finger] Respiratory Rate 20 18 16 Respiratory Effort / Characteristics Respiratory Depth Normal Respiratory Pattern Blood Pressure 105/74 Blood Pressure [Left Arm] 108/68 111/69 Blood Pressure Mean 84 Blood Pressure Mean [Left Arm] 81 83 Blood Pressure Position [Left Arm] Pulse Oximetry 100 99 100 Pulse Oximetry [Left Index Finger] Oxygen Delivery Method Nasal Cannula Room Air Nasal Cannula Oxygen Delivery Method [Left Index Finger] Oxygen Flow Rate 3 3 Oxygen Flow Rate [Left Index Finger] 08/18/18 13:29 08/18/18 14:05 08/18/18 15:55 Temperature Temperature Source Sepsis Recent Fever Within 48 Hours Sepsis Action Taken by Nursing Pulse Rate Pulse Rate [Finger] 73 78 Pulse Rhythm [Finger] Pulse Strength [Finger] Respiratory Rate 18 20 Respiratory Effort / Characteristics Respiratory Depth Respiratory Pattern Blood Pressure Blood Pressure [Left Arm] 108/82 90/67 L Blood Pressure Mean Blood Pressure Mean [Left Arm] 90 74 Blood Pressure Position [Left Arm] Pulse Oximetry 100 98 100 Pulse Oximetry [Left Index Finger] Oxygen Delivery Method Nasal Cannula Nasal Cannula Nasal Cannula Oxygen Delivery Method [Left Index Finger] Oxygen Flow Rate 3 3 Oxygen Flow Rate [Left Index Finger] 08/18/18 16:04 08/18/18 16:38 08/18/18 17:11 Temperature 36.7 C Temperature Source Oral Sepsis Recent Fever Within 48 Hours Sepsis Action Taken by Nursing Pulse Rate 78 80 Pulse Rate [Finger] 89 Pulse Rhythm [Finger] Regular Pulse Strength [Finger] Respiratory Rate 20 20 Respiratory Effort / Characteristics Non-Labored Spontaneous Respiratory Depth Normal Respiratory Pattern Regular Blood Pressure 90/67 L Blood Pressure [Left Arm] 113/73 Blood Pressure Mean Blood Pressure Mean [Left Arm] 86 Blood Pressure Position [Left Arm] Pulse Oximetry 3 L 100 Pulse Oximetry [Left Index Finger] Oxygen Delivery Method Nasal Cannula Nasal Cannula Oxygen Delivery Method [Left Index Finger] Oxygen Flow Rate 3 Oxygen Flow Rate [Left Index Finger] 08/18/18 17:22 08/18/18 17:37 08/18/18 19:22 Temperature Temperature Source Sepsis Recent Fever Within 48 Hours Sepsis Action Taken by Nursing Pulse Rate 92 H Pulse Rate [Finger] Pulse Rhythm [Finger] Pulse Strength [Finger] Respiratory Rate 18 Respiratory Effort / Characteristics Non-Labored Spontaneous Non-Labored Spontaneous Respiratory Depth Normal Normal Respiratory Pattern Regular Blood Pressure Blood Pressure [Left Arm] 113/77 Blood Pressure Mean Blood Pressure Mean [Left Arm] 89 Blood Pressure Position [Left Arm] Semi-fowlers Pulse Oximetry 99 Pulse Oximetry [Left Index Finger] 99 Oxygen Delivery Method Nasal Cannula Nasal Cannula Oxygen Delivery Method [Left Index Finger] Nasal Cannula Oxygen Flow Rate 3 3 Oxygen Flow Rate [Left Index Finger] 3 08/18/18 19:39 Temperature 36.4 C L Temperature Source Oral Sepsis Recent Fever Within 48 Hours Sepsis Action Taken by Nursing Pulse Rate Pulse Rate [Finger] 93 H Pulse Rhythm [Finger] Regular Pulse Strength [Finger] Normal Respiratory Rate 19 Respiratory Effort / Characteristics Non-Labored Respiratory Depth Normal Respiratory Pattern Blood Pressure Blood Pressure [Left Arm] 115/80 Blood Pressure Mean Blood Pressure Mean [Left Arm] 91 Blood Pressure Position [Left Arm] Lying Pulse Oximetry 99 Pulse Oximetry [Left Index Finger] Oxygen Delivery Method Nasal Cannula Oxygen Delivery Method [Left Index Finger] Oxygen Flow Rate 3 Oxygen Flow Rate [Left Index Finger] VITALS: Vitals are noted on the nurse's note and reviewed by myself. Vital signs stable. GENERAL: Well-developed, well-nourished, black female, who is fairly comfortable and nontoxic. She is able to speak in short sentences. She is on supplemental oxygen. HEAD: Normocephalic atraumatic. EYES: Pupils equal round and reactive to light and accommodation. Conjunctivae without injection, sclerae without icterus. Extraocular movements intact. . MOUTH: Mucous membranes moist. Tonsils are not enlarged. Pharynx without eryt tigist, blood, or exudate. Uvula midline. Airway patent. NECK: Supple without nuchal rigidity. No lymphadenopathy. No thyromegaly. Cervical spine is nontender. HEART: Irregularly irregular. LUNGS: High-pitched wheezing heard in all lung hammond but overall fairly clear. Minimal bibasilar crackles noted. ABDOMEN: Positive normal bowel sounds x 4. Soft, nontender, without masses or organomegaly. MUSCULOSKELETAL: No muscle atrophy, erythema, or edema noted. Full range of motion in all extremities. No significant pretibial edema. No posterior calf tenderness. NEURO: Patient was alert and oriented to person place and time. CN II through XII grossly intact. SKIN: The skin was without rashes, erythema, edema, or bruising. Capillary refill less than 2 seconds. Course Administered Medications Colchicine (Colcrys) 0.6 mg PO BID VICTOR M Stop: 09/17/18 20:59 Last Admin: 08/18/18 21:40 Dose: 0.6 mg Documented by: [id number] Digoxin (Lanoxin) 0.125 mg PO DAILY@1600 VICTOR M Stop: 09/17/18 15:59 Last Admin: 08/18/18 19:22 Dose: 0.125 mg Documented by: [id number] Docusate Sodium (Colace) 100 mg PO BID VICTOR M Stop: 09/17/18 20:59 Last Admin: 08/18/18 21:41 Dose: 100 mg Documented by: [id number] Gabapentin (Neurontin) 600 mg PO BID VICTOR M Stop: 09/17/18 20:59 Last Admin: 08/18/18 21:40 Dose: 600 mg Documented by: [id number] Hydroxyzine HCl (Vistaril) 50 mg PO QPM VICTOR M Stop: 09/17/18 20:59 Last Admin: 08/18/18 21:41 Dose: 50 mg Documented by: [id number] Furosemide 40 mg/ Syringe 4 mls @ 4 mls/min IV ONE VICTOR M Stop: 09/17/18 18:59 Last Admin: 08/18/18 18:08 Dose: 4 mls/min Documented by: [id number] Quetiapine Fumarate (Seroquel) 300 mg PO HS VICTOR M Stop: 09/17/18 20:59 Last Admin: 08/18/18 21:41 Dose: 300 mg Documented by: [id number] Trazodone HCl (Desyrel) 100 mg PO HS VICTOR M Stop: 09/17/18 20:59 Last Admin: 08/18/18 21:41 Dose: 100 mg Documented by: [id number] Discontinued Medications Furosemide (Lasix) Confirm Administered Dose 40 mg IV .STK-MED ONE Stop: 08/18/18 13:28 Last Admin: 08/18/18 13:31 Dose: 40 mg Documented by: [id number] Furosemide 40 mg/ Syringe 4 mls @ 4 mls/min IV ONE ONE Stop: 08/18/18 13:22 Last Admin: 08/18/18 13:31 Dose: Not Given Documented by: [id number] Ioversol (Optiray 320 125ml) 92 ml IV ONCE PRN PRN Reason: Interaction Checking Stop: 08/22/18 12:38 Last Admin: 08/18/18 12:40 Dose: 92 ml Documented by: [id number] Medical Decision Making Differential Diagnosis Differential diagnosis includes, but is not limited to: Congestive heart failure, myocardial infarction, dysrhythmia, pericarditis, pneumothorax, aortic aneurysm/dissection, DVT/PE, anxiety, GERD, PUD, electrolyte imbalance, thyroid disorder, pneumonia, bronchitis, pancreatitis, and others Laboratory Data Result diagrams: 08/18/18 10:40 08/18/18 10:40 Lab Results 08/18/18 08/18/18 08/18/18 Range/Units 10:40 10:40 10:40 WBC 9.32 (4.8-10.8) K/uL RBC 4.46 (4.2-5.4) M/uL Hgb 12.1 (12.0-16.0) g/dL Hct 38.4 (37-47) % MCV 86.1 (80-100) fL MCH 27.1 (25-34) pg MCHC 31.5 L (32-36) g/dL RDW Std Deviation 51.0 H (36.4-46.3) fL RDW Coeff of [place] 16.2 H (11.5-14.5) % Plt Count 293 (130-400) K/uL MPV 9.1 (7.4-10.4) fL Immature Gran % (Auto) 0.2 % Neut % (Auto) 70.0 % Lymph % (Auto) 21.5 % [place] % (Auto) 6.8 % Eos % (Auto) 0.9 % Baso % (Auto) 0.6 % Immature Gran # (Auto) 0.02 (0.00-0.02) K/uL Neut # (Auto) 6.53 H (1.4-6.5) K/uL Lymph # (Auto) 2.00 (1.2-3.4) K/uL [place] # (Auto) 0.63 H (0.11-0.59) K/uL Eos # (Auto) 0.08 (0-0.5) K/uL Baso # (Auto) 0.06 (0-0.2) K/uL PT 12.2 H (9.0-12.0) Seconds INR 1.2 H (0.9-1.1) APTT 27.8 (21.0-31.0) Seconds PTT Ratio 1.0 D-Dimer (0-500) ug/L FEU VBG pH (7.36-7.41) VBG pCO2 (38-50) mmHg VBG pO2 mmHg VBG HCO3 mmol/L VBG O2 Saturation % VBG Base Excess mEq/L Barometric Pressure mm/Hg Sodium 139 (136-145) mmol/L Potassium 3.7 (3.5-5.1) mmol/L Chloride 102 (98-107) mmol/L Carbon Dioxide 32 (21-32) mmol/L Anion Gap 6.0 (3-11) BUN 16 (7-18) mg/dl Creatinine 0.95 (0.6-1.2) mg/dl Est Cr Clr Drug Dosing Not Reportable Est GFR ( Amer) 77.6 Est GFR (Non-Af Amer) 67.0 BUN/Creatinine Ratio 16.4 (10-20) Glucose 92 (70-99) mg/dl Calcium 9.5 (8.5-10.1) mg/dl Magnesium (1.8-2.4) mg/dl Total Bilirubin 1.0 (0.2-1) mg/dl AST 14 L (15-37) U/L ALT 30 (12-78) U/L Alkaline Phosphatase 146 H (45-117) U/L Total Creatine Kinase (26-192) U/L CK-MB (CK-2) (0.5-3.6) ng/ml CK/CKMB % Calc Troponin I 0.016 (0-0.045) ng/ml NT-Pro-B Natriuret Pep (0-900) pg/ml Total Protein 7.7 (6.4-8.2) gm/dl Albumin 3.1 L (3.4-5.0) gm/dl Globulin 4.6 H (2.5-4.0) gm/dl Albumin/Globulin Ratio 0.7 L (0.9-2) Lipase (73-393) U/L Angiotensin Convert Enz Urine Color Urine Appearance (Clear) Urine pH (4.5-7.5) Ur Specific [place] (1.000-1.030) Urine Protein (Negative) Urine Glucose (UA) (Negative) Urine Ketones (Negative) Urine Blood (Negative) Urine Nitrite (Negative) Urine Bilirubin (Negative) Urine Urobilinogen (Negative) Ur Leukocyte Esterase (Negative) Urine WBC (Auto) (0-5) /hpf Urine RBC (Auto) (0-4) /hpf U Hyaline Cast (Auto) (0-5) /lpf U Epithel Cells (Auto) (0-5) /lpf Urine Bacteria (Auto) (Negative) 08/18/18 08/18/18 08/18/18 Range/Units 10:40 10:40 11:33 WBC (4.8-10.8) K/uL RBC (4.2-5.4) M/uL Hgb (12.0-16.0) g/dL Hct (37-47) % MCV (80-100) fL MCH (25-34) pg MCHC (32-36) g/dL RDW Std Deviation (36.4-46.3) fL RDW Coeff of Logan (11.5-14.5) % Plt Count (130-400) K/uL MPV (7.4-10.4) fL Immature Gran % (Auto) % Neut % (Auto) % Lymph % (Auto) % [place] % (Auto) % Eos % (Auto) % Baso % (Auto) % Immature Gran # (Auto) (0.00-0.02) K/uL Neut # (Auto) (1.4-6.5) K/uL Lymph # (Auto) (1.2-3.4) K/uL [place] # (Auto) (0.11-0.59) K/uL Eos # (Auto) (0-0.5) K/uL Baso # (Auto) (0-0.2) K/uL PT (9.0-12.0) Seconds INR (0.9-1.1) APTT (21.0-31.0) Seconds PTT Ratio D-Dimer 580 H* (0-500) ug/L FEU VBG pH 7.41 (7.36-7.41) VBG pCO2 51 H (38-50) mmHg VBG pO2 25 mmHg VBG HCO3 32 mmol/L VBG O2 Saturation < 60.0 % VBG Base Excess 5.7 mEq/L Barometric Pressure 726.6 mm/Hg Sodium (136-145) mmol/L Potassium (3.5-5.1) mmol/L Chloride (98-107) mmol/L Carbon Dioxide (21-32) mmol/L Anion Gap (3-11) BUN (7-18) mg/dl Creatinine (0.6-1.2) mg/dl Est Cr Clr Drug Dosing Est GFR ( Amer) Est GFR (Non-Af Amer) BUN/Creatinine Ratio (10-20) Glucose (70-99) mg/dl Calcium (8.5-10.1) mg/dl Magnesium 2.0 (1.8-2.4) mg/dl Total Bilirubin (0.2-1) mg/dl AST (15-37) U/L ALT (12-78) U/L Alkaline Phosphatase (45-117) U/L Total Creatine Kinase 27 (26-192) U/L CK-MB (CK-2) < 1.0 (0.5-3.6) ng/ml CK/CKMB % Calc TNP Troponin I (0-0.045) ng/ml NT-Pro-B Natriuret Pep 5416 H (0-900) pg/ml Total Protein (6.4-8.2) gm/dl Albumin (3.4-5.0) gm/dl Globulin (2.5-4.0) gm/dl Albumin/Globulin Ratio (0.9-2) Lipase 55 L (73-393) U/L Angiotensin Convert Enz Urine Color Urine Appearance (Clear) Urine pH (4.5-7.5) Ur Specific [place] (1.000-1.030) Urine Protein (Negative) Urine Glucose (UA) (Negative) Urine Ketones (Negative) Urine Blood (Negative) Urine Nitrite (Negative) Urine Bilirubin (Negative) Urine Urobilinogen (Negative) Ur Leukocyte Esterase (Negative) Urine WBC (Auto) (0-5) /hpf Urine RBC (Auto) (0-4) /hpf U Hyaline Cast (Auto) (0-5) /lpf U Epithel Cells (Auto) (0-5) /lpf Urine Bacteria (Auto) (Negative) 08/18/18 08/18/18 08/18/18 Range/Units 12:45 18:57 18:57 WBC (4.8-10.8) K/uL RBC (4.2-5.4) M/uL Hgb (12.0-16.0) g/dL Hct (37-47) % MCV (80-100) fL MCH (25-34) pg MCHC (32-36) g/dL RDW Std Deviation (36.4-46.3) fL RDW Coeff of Logan (11.5-14.5) % Plt Count (130-400) K/uL MPV (7.4-10.4) fL Immature Gran % (Auto) % Neut % (Auto) % Lymph % (Auto) % [place] % (Auto) % Eos % (Auto) % Baso % (Auto) % Immature Gran # (Auto) (0.00-0.02) K/uL Neut # (Auto) (1.4-6.5) K/uL Lymph # (Auto) (1.2-3.4) K/uL [place] # (Auto) (0.11-0.59) K/uL Eos # (Auto) (0-0.5) K/uL Baso # (Auto) (0-0.2) K/uL PT (9.0-12.0) Seconds INR (0.9-1.1) APTT (21.0-31.0) Seconds PTT Ratio D-Dimer (0-500) ug/L FEU VBG pH (7.36-7.41) VBG pCO2 (38-50) mmHg VBG pO2 mmHg VBG HCO3 mmol/L VBG O2 Saturation % VBG Base Excess mEq/L Barometric Pressure mm/Hg Sodium (136-145) mmol/L Potassium (3.5-5.1) mmol/L Chloride (98-107) mmol/L Carbon Dioxide (21-32) mmol/L Anion Gap (3-11) BUN (7-18) mg/dl Creatinine (0.6-1.2) mg/dl Est Cr Clr Drug Dosing Est GFR ( Amer) Est GFR (Non-Af Amer) BUN/Creatinine Ratio (10-20) Glucose (70-99) mg/dl Calcium (8.5-10.1) mg/dl Magnesium (1.8-2.4) mg/dl Total Bilirubin (0.2-1) mg/dl AST (15-37) U/L ALT (12-78) U/L Alkaline Phosphatase (45-117) U/L Total Creatine Kinase (26-192) U/L CK-MB (CK-2) (0.5-3.6) ng/ml CK/CKMB % Calc Troponin I < 0.015 (0-0.045) ng/ml NT-Pro-B Natriuret Pep (0-900) pg/ml Total Protein (6.4-8.2) gm/dl Albumin (3.4-5.0) gm/dl Globulin (2.5-4.0) gm/dl Albumin/Globulin Ratio (0.9-2) Lipase (73-393) U/L Angiotensin Convert Enz Cancelled Urine Color [place] Urine Appearance Cloudy H (Clear) Urine pH 5.0 (4.5-7.5) Ur Specific [place] 1.032 H (1.000-1.030) Urine Protein 1+ H (Negative) Urine Glucose (UA) Negative (Negative) Urine Ketones Trace H (Negative) Urine Blood Negative (Negative) Urine Nitrite Positive H (Negative) Urine Bilirubin Negative (Negative) Urine Urobilinogen Negative (Negative) Ur Leukocyte Esterase 1+ H (Negative) Urine WBC (Auto) 10-30 H (0-5) /hpf Urine RBC (Auto) 5-10 H (0-4) /hpf U Hyaline Cast (Auto) 0 (0-5) /lpf U Epithel Cells (Auto) >30 H (0-5) /lpf Urine Bacteria (Auto) Negative (Negative) Imaging Data Radiologist's Impression: XR chest 2V routine HISTORY: Cough. Shortness of breath. COMPARISON: Chest 08/06/2018. FINDINGS: The heart remains enlarged. Left-sided pacemaker/defibrillator is again noted. No pneumothorax. Mild interstitial pulmonary edema, unchanged. Hazy appearance to the left lung base persists. This could be due to overlapping soft tissue. No new focal lung consolidations. IMPRESSION: No change in the cardiomegaly and mild pulmonary edema. CT angio chest PE protocol CLINICAL HISTORY: 57 years-old Female presenting with shortness of breath, elevated d-dimer, clinical concern for pulmonary embolus. TECHNIQUE: Multidetector CT angiography of the chest was performed after administration of intravenous contrast. 3-D volumetric and/or maximum intensity projection (MIP) images were subsequently reconstructed for review. IV contrast: 92 mL of Optiray 320. One or more dose lowering techniques were used consistent with the principles of ALARA (as low as reasonably achievable), including automatic exposure control, mA or kV adjustment to individual patient size, and/or use of iterative reconstruction. COMPARISON: Contrast-enhanced chest CT from 07/04/2018. CT DOSE (mGy.cm): The estimated cumulative dose is 683.76 mGy.cm. FINDINGS: [employer] topogram: Left subclavian implanted cardiac defibrillator with leads to the right atrium and coronary sinus. Cardiomegaly. Pulmonary vasculature: The study is suboptimal for the assessment of the pulmonary vascular tree secondary to timing of the contrast bolus and respiratory motion artifact. No f illing defect within the pulmonary arteries to suggest embolus. Main pulmonary artery is top normal in size. No flattening of the interventricular septum. No intracardiac filling defect. Reflux of contrast into the IVC and hepatic veins. This likely indicates elevated right heart pressure. Remaining chest: Soft tissues: Normal thyroid. Fluid collection associated with the implanted cardiac defibrillator noted along the inferior margin (series 4 image 222). Enlarged superior mediastinal low density nodules, which have increased in size since the prior exam. These were previously more easily characterizable as lymph nodes. Difficulty in measuring there attenuation may part be due to extensive streak artifact in the superior mediastinum. Additionally, significant interval increase in size of pathologically enlarged lymph nodes elsewhere the mediastinum. Enlarged right hilar lymph node. Normal aorta. Marked multichamber enlargement of the heart. Moderate pericardial effusion as on prior exam. No pleural effusion. Upper abdomen normal. Lungs and airways: No pneumothorax. Central airways patent. Pulmonary arteries enlarged relative to adjacent bronchi. Interlobular septal thickening evident at the upper and lower lobes and bandlike opacities along the paramediastinal lower lobes likely atelectasis. The previously noted peribronchovascular nodule in the right apex has resolved. Prior groundglass infiltrates in the right apex are also not as apparent. Limited nodular solid consolidation in the posterior segment of the right upper lobe (series 4 image 184). Musculoskeletal: Degenerative changes of the spine. IMPRESSION: 1. No evidence of pulmonary embolus. 2. Fluid collection associated with the implanted cardiac defibrillator. Sterility cannot be confirmed. 3. Marked cardiomegaly with persistent pericardial effusion. 4. Volume overload and congestive change. No xena pulmonary edema. 5. Limited nodular consolidation in the posterior segment of the right upper lobe new from prior, possibly aspiration or infection. 6. Resolution of prior right apical groundglass opacities and peribronchovascular nodule consistent with an inflammatory or infectious etiology. 7. Significant interval worsening of mediastinal lymphadenopathy. Persistent right hilar lymphadenopathy. Attention on follow-up as underlying lymphoproliferative disease or metastases cannot be excluded though this may be reactive or relate to congestive change. ECG Data Additional Comments: Atrial fibrillation @75bpm Cannot rule out Anterior infarct , age undetermined When compared with ECG of 03-AUG-2018 10:44, Vent. rate has decreased BY 45 BPM MDM Narrative Physical exam and history were performed. Nursing notes, EMR, and Medication List were personally reviewed. Patient appears to have worsening shortness of breath symptoms over the past few days. She does have a recent admission for the same and has multiple cardiac risk factors. EKG was performed and revealed atrial fibrillation at [address] elevation. IV access was established and labs were obtained. The patient was placed on the air sampling and monitoring. X-ray was performed. The patient's blood work is as above and was reviewed. She does not have a significantly elevated white blood cell count, gross anemia, bandemia, or significant electrolyte imbalance. Lipase and transaminases are not diagnostic. INR is 1.2. Troponin x1 is negative, however her d-dimer is positive. Chest x-ray was reviewed by myself and radiology as showing no acute process. Because of her symptoms a CT angiogram was performed. Angiogram does not reveal an acute pulmonary emboli, but does show volume overload and congestive changes. There is also a nodular consolidation in the right upper lobe which could be aspiration or infection related. Additionally the patient has an elevated BNP of greater than 5000, which is much higher than her baseline. The patient was given IV Lasix for this. The case was discussed with my attending physician who remained involved in care and decision-making. We do have concern as the patient has worsening shortness of breath with an extensive cardiopulmonary history. The patient case was discussed with the on-call hospitalist who agreed to evaluate the patient here in the department. Please see their dictation for further patient course, plan, and disposition. The chart was completed utilizing [employer] Speech Voice Recognition Software. Grammatical errors, random word insertions, pronoun errors, and incomplete sentences are an occasional consequence of this system due to software limitations, ambient noise, and hardware issues. Any formal questions or concerns about the content, text, or information contained within the body of this dictation should be directly addressed to the provider for clarification. . Impression & Plan Acute CHF, SOB (shortness of breath) Discharge Plan Visit Data *Final* Discharge Date/Time: 08/18/18 16:04 Chief Complaint: Shortness of Breath/Dyspnea Stated Complaint: SHORTNESS OF BREATH ED Provider: Ivan Bergeron ED Midlevel Provider: Lane Garcia Discharge Problem: Acute CHF, SOB (shortness of breath) Patient Disposition: Admitted As Inpatient Discharge Instructions Interventions: ED Discharge Assessment Last Done: 08/18/18 16:04 Discharge Problem: Acute CHF Qualifiers: Heart failure type: unspecified Qualified Code(s): I50.9 - Heart failure, unspecified
[2018-08-18 11:55] LABS: Base Excess VBG 5.7 mEq/L; HCO3 VBG 32 mmol/L; PCO2 VBG 51 mmHg (38-50); PO2 VBG 25 mmHg; pH VBG 7.41 (7.36-7.41)
[2018-08-18 11:56] LABS: Oxygen Saturation VBG < 60.0 %
[2018-08-18 12:08] LABS: Creatine Kinase 27 U/L (26-192); Creatine Kinase MB < 1.0 ng/ml (0.5-3.6); NT Pro B Type Natriuretic Pept 5416 pg/ml (0-900)
[2018-08-18 12:20] LABS: D Dimer 580 ug/L FEU (0-500)
[2018-08-18] MEDS ORDERED: OPTIRAY 320 125ml IV PRN (12:39)
--- NOTE | 2018-08-18 13:04 | CT Scan Report ---
CT angio chest PE protocol CLINICAL HISTORY: 57 years-old Female presenting with shortness of breath, elevated d-dimer, clinical concern for pulmonary embolus. TECHNIQUE: Multidetector CT angiography of the chest was performed after administration of intravenou s contrast. 3-D volumetric and/or maximum intensity projection (MIP) images were subsequently reconst ructed for review. IV contrast: 92 mL of Optiray 320. One or more dose lowering techniques were used consistent with the principles of ALARA (as low as reasonably achievable), including automatic exposu re control, mA or kV adjustment to individual patient size, and/or use of iterative reconstruction. COMPARISON: Contrast-enhanced chest CT from 07/04/2018. CT DOSE (mGy.cm): The estimated cumulative dose is 683.76 mGy.cm. FINDINGS: Web Weaver topogram: Left subclavian implanted cardiac defibrillator with leads to the right atrium and co ronary sinus. Cardiomegaly. Pulmonary vasculature: The study is suboptimal for the assessment of the pulmonary vascular tree secondary to timing of the contrast bolus and respiratory motion artifact. No filling defect within the pulmonary arteries to march ggest embolus. Main pulmonary artery is top normal in size. No flattening of the interventricular sep [place]. No intracardiac filling defect. Reflux of contrast into the IVC and hepatic veins. This likely i ndicates elevated right heart pressure. Remaining chest: Soft tissues: Normal thyroid. Fluid collection associated with the implanted cardiac defibrillator no matt along the inferior margin (series 4 image 222). Enlarged superior mediastinal low density nodules , which have increased in size since the prior exam. These were previously more easily characterizabl e as lymph nodes. Difficulty in measuring there attenuation may part be due to extensive streak artif act in the superior mediastinum. Additionally, significant interval increase in size of pathologicall y enlarged lymph nodes elsewhere the mediastinum. Enlarged right hilar lymph node. Normal aorta. Osmar ed multichamber enlargement of the heart. Moderate pericardial effusion as on prior exam. No pleural effusion. Upper abdomen normal. Lungs and airways: No pneumothorax. Central airways patent. Pulmonary arteries enlarged relative to a djacent bronchi. Interlobular septal thickening evident at the upper and lower lobes and bandlike opa cities along the paramediastinal lower lobes likely atelectasis. The previously noted peribronchovasc ular nodule in the right apex has resolved. Prior groundglass infiltrates in the right apex are also not as apparent. Limited nodular solid consolidation in the posterior segment of the right upper lobe (series 4 image 184). Musculoskeletal: Degenerative changes of the spine. IMPRESSION: 1. No evidence of pulmonary embolus. 2. Fluid collection associated with the implanted cardiac defibrillator. Sterility cannot be confirm ed. 3. Marked cardiomegaly with persistent pericardial effusion. 4. Volume overload and congestive change. No xena pulmonary edema. 5. Limited nodular consolidation in the posterior segment of the right upper lobe new from prior, po ssibly aspiration or infection. 6. Resolution of prior right apical groundglass opacities and peribronchovascular nodule consistent with an inflammatory or infectious etiology. 7. Significant interval worsening of mediastinal lymphadenopathy. Persistent right hilar lymphadenop athy. Attention on follow-up as underlying lymphoproliferative disease or metastases cannot be exclud ed though this may be reactive or relate to congestive change. Electronically signed by: Kyle Hernandez M.D. 08/18/2018 1:02 PM
[2018-08-18] MEDS ORDERED: FUROSEMIDE 40 MG in SYRINGE 0 ML IV ONE (13:21)
[2018-08-18] MEDS ORDERED: FUROSEMIDE 40 MG/4 ML VIAL IV ONE (13:27)
--- NOTE | 2018-08-18 13:39 | XRay Report ---
XR chest 2V routine HISTORY: Cough. Shortness of breath. COMPARISON: Chest 08/06/2018. FINDINGS: The heart remains enlarged. Left-sided pacemaker/defibrillator is again noted. No pneumotho rax. Mild interstitial pulmonary edema, unchanged. Hazy appearance to the left lung base persists. Th is could be due to overlapping soft tissue. No new focal lung consolidations. IMPRESSION: No change in the cardiomegaly and mild pulmonary edema. Electronically signed by: Tyler Davis M.D. 08/18/2018 1:37 PM
[2018-08-18 13:40] LABS: Appearance Urine Cloudy (Clear); Bacteria Urine Automated Negative (Negative); Blood Urine Negative (Negative); Epithelial Cell Urine Auto >30 /lpf (0-5); Glucose Urine UA Negative (Negative); Ketones Urine Trace (Negative); Leukocyte Esterase Urine 1+ (Negative); Nitrite Urine Positive (Negative); Protein Urine 1+ (Negative); Specific Gravity Urine 1.032 (1.000-1.030); Urobilinogen Urine Negative (Negative)
[2018-08-18 13:42] LABS: Bilirubin Urine Negative (Negative); Color Urine Amber; Ictotest Urine Negative (Negative)
[2018-08-18 14:05] LABS: Cast Urine Automated 0 /lpf (0-5)
--- NOTE | 2018-08-18 14:18 | History & Physical Report ---
Date of Service August 18, 2018 Assessment & Plan (1) SOB (shortness of breath): The patient's symptoms would suggest that her CHF is decompensated however her physical exam findings are not entirely consistent with volume overload. Nevertheless she has had severe orthopnea and PND along with dyspnea on exertion over the last few days. Interestingly her weight is largely the same as it was when she was recently in the hospital a week ago. Her dyspnea may be multifactorial in origin including her CHF, a primary pulmonary process, pulmonary hypertension, deconditioning, uncontrolled A. fib although we have seen no evidence of that, versus some other cause. Prior heart catheterization has not revealed any coronary artery disease. We will attempt to provide some diuresis tonight and reevaluate her tomorrow. The hilar and mediastinal lymphadenopathy is concerning. There has been concern about autoimmune disease given her positive JOHNSON. Consider checking an NIKO level for sarcoid. Consider formal pulmonary consultation. Continue nasal cannula oxygen. (2) Acute on chronic systolic heart failure: Again her symptoms would argue for volume overload however her physical exam does not appear to show significant fluid retention. Nevertheless will provide some diuresis tonight and reevaluate her in the morning. Continue beta- julee. Continue Aldactone. Of note, the patient is taking metoprolol not carvedilol. She is also taking Bumex not Lasix. Formal cardiology consultation was requested with Dr. Christensen. Most recent echo showed severely reduced ejection fraction at 15-20%. This is nonischemic in origin.. (3) Permanent atrial fibrillation: A. fib rates are well controlled in the emergency department. AV jennifer ablation was attempted during the prior stay without success. She has a by Bi-V pacemaker in place. She takes chronic Xarelto for anticoagulation. Continue metoprolol. Could consider a pacer interrogation to ensure that home heart rates are controlled. I will defer that to Dr. Christensen. (4) Pulmonary hypertension: Right heart catheterization within the last month revealed severely high pulmonary pressures. I believe that her pulmonary hypertension is likely contributing heavily to her symptoms. Defer management to cardiology. Continue nasal cannula oxygen. (5) Pericardial effusion: There has been concern that this is autoimmune in nature. She has had an elevated JOHNSON titer as well as sed rate. She takes colchicine twice daily per recommendations from rheumatology. He has yet to have formal rheumatologic evaluation in the clinic. In light of lymphadenopathy I have sent an NIKO level for sarcoid. 2 hospital stays ago she appeared to have pericarditis which resolved with colchicine. (6) Diabetes: This is well controlled. Hold metformin. NovoLog sliding scale for glycemic control. (7) Pericarditis: Resolved. she has had no pleuritic chest pain. Continue colchicine (8) Morbid obesity: BMI 36 (9) Chronic respiratory failure with hypoxia: The patient has gone on [id number] oxygen within the last month. Suspect pulmonary hypertension is playing a large role in this. Compensated CHF could be playing a role as well. (10) Schizoaffective disorder: Continue all home medications. This is relatively stable. (11) COPD (chronic obstructive pulmonary disease): There does not appear to be an acute exacerbation. (12) History of pulmonary embolism: Continue Xarelto for prophylaxis. (13) DVT prophylaxis: Xarelto. Total time spent approximately 70 minutes on admission activities. This inclu olivia discussing care with cardiology. History of Present Illness Chief Complaint: shortness of breath Primary Care Provider: Antonio Oliver MD 57yo AA female with chronic systolic CHF, a.fib, recent biV pacer placement, pulmonary HTN, COPD, pericardial effusion, and schizoaffective disorder who presents with worsening shortness of breath, PND, orthopnea (using 4 pillows to sleep), cough, and chest discomforts when she coughs. She was d/c from [facility] on 08/10/18 and felt "good" until about 3 days ago when the above symptoms started. She admits to eating a hoagie on Tuesday but otherwise is trying to eat healthily. She is following her fluid restriction. All of her pulmonary symptoms worsened yesterday, and then last night she slept very poorly because of severe dyspnea. With walking just a few steps she gets out of breath. She mentions she was previously treated with lasix BID but was changed to bumex daily following her last stay but she feels she did better on the lasix. She doesn't feel that she has gained any significant weight. She is on home O2 - 3 liters NC continously. Allergies Allergy/AdvReac Type Severity Reaction Status Date / Time fentanyl Allergy Mild RASH,ITCHIN Verified 07/31/18 09:49 G Home Medications Home Medications Medication Instructions Recorded Confirmed Type Xarelto 20 mg PO DAILY 05/31/18 08/18/18 History atorvastatin 10 mg PO DAILY 05/31/18 08/18/18 History digoxin 0.125 mg PO DAILY 05/31/18 08/18/18 History diphenhydramine HCl [Benadryl] 25 mg PO QAM 05/31/18 08/18/18 History docusate sodium [Colace] 100 mg PO BID 05/31/18 08/18/18 History gabapentin 600 mg PO BID 05/31/18 08/18/18 History hydroxyzine pamoate [Vistaril] 50 mg PO QPM 05/31/18 08/18/18 History metformin 500 mg PO BID 05/31/18 08/18/18 History omeprazole 20 mg PO DAILY 05/31/18 08/18/18 History quetiapine [Seroquel] 50 mg PO DAILY 05/31/18 08/18/18 History quetiapine [Seroquel] 300 mg PO HS 05/31/18 08/18/18 History albuterol sulfate 2 inha INH QID PRN #6.7 gm 06/12/18 08/18/18 Rx colchicine [Colcrys] 0.6 mg PO BID #60 tab 07/06/18 08/18/18 Rx trazodone 0 mg PO HS 07/31/18 08/18/18 History bumetanide 2 mg PO QAM #30 tab 08/09/18 08/18/18 Rx metoprolol succinate 100 mg PO QAM #60 tab 08/09/18 08/18/18 Rx carvedilol 6.25 mg PO BID 08/18/18 08/18/18 History furosemide 40 mg PO BID 08/18/18 08/18/18 History spironolactone 12.5 mg PO DAILY 08/18/18 08/18/18 History Past Med/Surg History Medical History Glaucoma Asthma (Chronic) CHF (congestive heart failure) (Chronic) 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% per echo 06/06/18; non-obstructive CAD per cath 2006 HTN (hypertension) (Chronic) PTSD (post-traumatic stress disorder) (Chronic) Atrial fibrillation Diabetes type 2, controlled patient denies having diabetes, does not want further testing even though she is prescribed Metformin GERD (gastroesophageal reflux disease) Morbid obesity Pulmonary embolism 2013 while living in [place] Schizoaffective disorder Ventricular arrhythmia Surgical History Pacemaker (Chronic) AICD (automatic cardioverter/defibrillator) present S/P ORIF (open reduction internal fixation) fracture ankle, left S/P tubal ligation Social History Preferred Language: Khmer Communication Ability: Effective Beliefs That Will Affect Care: None marital status: marital status details: 5 kids Current Living Situation: Alone Current Living Situation Comment: [facility] Resident 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: 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; 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; 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 other: lives in [place] Feels Safe at Home: No Safety Concerns: Afraid for Self Smoking Status: Former smoker Hx Alcohol Use: No Hx Substance Use: No Review of Systems Constitutional: no fever, no chills, no anorexia, no weight loss and no weight gain Eyes: no worsening vision Ear, Nose, Mouth, Throat: no nasal congestion, no sore throat and no dysphagia Respiratory: + cough, + dyspnea, + dyspnea on exertion, + hemoptysis (first th ing in am only) and + sputum production Cardiovascular: + dyspnea at rest, + dyspnea on exertion, + orthopnea and + paroxysmal nocturnal dyspnea; no chest pain, no chest pain with activity and no edema Gastrointestinal: + nausea; no abdominal pain, no vomiting, no constipation and no diarrhea/loose stools Genitourinary (Female): no dysuria Musculoskeletal: no back pain and no joint pain Integumentary: + rash (dry skin) Neurologic: no numbness Psychiatric: + depression (has appt with psych this coming Tuesday) doesn't check sugars Physical Exam Vital Signs (Past 24 Hours): Last Vital Signs Temp 36.8 C 08/18/18 10:27 Pulse 73 08/18/18 13:29 Resp 18 08/18/18 13:29 BP 108/82 08/18/18 13:29 Pulse Ox 98 08/18/18 14:05 Constitutional: well developed, well nourished and + obese; no acute distress and not ill appearing Eyes: PERRL ENMT: external ear and nose normal, oropharynx normal Neck: trachea midline, no thyromegaly Respiratory: Auscultation: + diminished lung sounds (bases ); no rales and no wheezes Cardiovascular: Rate/Rhythm: regular rate; + abnormal rhythm (irregular) Heart Sounds: normal S1 and normal S2; no murmur and no cardiac rub Vessels: + JVD, posterior tibial pulses present and dorsalis pedis pulses present Ex tremities: no edema Gastrointestinal (Abdomen): normal bowel sounds, soft, nontender, no hepatosplenomegaly Musculoskeletal: Extremities: strength 5/5 throughout Skin: pacer site - left upper chest - swelling noted, no erythema, steri strips in place Neurologic: deep tendon reflexes 2+ bilaterally and moves all extremities Psychiatric: A+Ox3, euthymic affect Lymphatic: no cervical lymphadenopathy Results & Data Laboratory Results Laboratory Results - last 24 hr 08/18/18 08/18/18 08/18/18 10:40 10:40 10:40 WBC 9.32 RBC 4.46 Hgb 12.1 Hct 38.4 MCV 86.1 MCH 27.1 MCHC 31.5 L RDW Std Deviation 51.0 H RDW Coeff of Logan 16.2 H Plt Count 293 MPV 9.1 Immature Gran % (Auto) 0.2 Neut % (Auto) 70.0 Lymph % (Auto) 21.5 [place] % (Auto) 6.8 Eos % (Auto) 0.9 Baso % (Auto) 0.6 Immature Gran # (Auto) 0.02 Neut # (Auto) 6.53 H Lymph # (Auto) 2.00 [place] # (Auto) 0.63 H Eos # (Auto) 0.08 Baso # (Auto) 0.06 PT 12.2 H INR 1.2 H APTT 27.8 PTT Ratio 1.0 D-Dimer VBG pH VBG pCO2 VBG pO2 VBG HCO3 VBG O2 Saturation VBG Base Excess Barometric Pressure Sodium 139 Potassium 3.7 Chloride 102 Carbon Dioxide 32 Anion Gap 6.0 BUN 16 Creatinine 0.95 Est Cr Clr Drug Dosing Not Reportable Est GFR ( Amer) 77.6 Est GFR (Non-Af Amer) 67.0 BUN/Creatinine Ratio 16.4 Glucose 92 Calcium 9.5 Magnesium Total Bilirubin 1.0 AST 14 L ALT 30 Alkaline Phosphatase 146 H Total Creatine Kinase CK-MB (CK-2) CK/CKMB % Calc Troponin I 0.016 NT-Pro-B Natriuret Pep Total Protein 7.7 Albumin 3.1 L Globulin 4.6 H Albumin/Globulin Ratio 0.7 L Lipase Angiotensin Convert Enz Urine Color Urine Appearance Urine pH Ur Specific [place] Urine Protein Urine Glucose (UA) Urine Ketones Urine Blood Urine Nitrite Urine Bilirubin Urine Urobilinogen Ur Leukocyte Esterase Urine WBC (Auto) Urine RBC (Auto) U Hyaline Cast (Auto) U Epithel Cells (Auto) Urine Bacteria (Auto) 08/18/18 08/18/18 08/18/18 10:40 10:40 11:33 WBC RBC Hgb Hct MCV MCH MCHC RDW Std Deviation RDW Coeff of [place] Plt Count MPV Immature Gran % (Auto) Neut % (Auto) Lymph % (Auto) [place] % (Auto) Eos % (Auto) Baso % (Auto) Immature Gran # (Auto) Neut # (Auto) Lymph # (Auto) [place] # (Auto) Eos # (Auto) Baso # (Auto) PT INR APTT PTT Ratio D-Dimer 580 H* VBG pH 7.41 VBG pCO2 51 H VBG pO2 25 VBG HCO3 32 VBG O2 Saturation < 60.0 VBG Base Excess 5.7 Barometric Pressure 726.6 Sodium Potassium Chloride Carbon Dioxide Anion Gap BUN Creatinine Est Cr Clr Drug Dosing Est GFR ( Amer) Est GFR (Non-Af Amer) BUN/Creatinine Ratio Glucose Calcium Magnesium 2.0 Total Bilirubin AST ALT Alkaline Phosphatase Total Creatine Kinase 27 CK-MB (CK-2) < 1.0 CK/CKMB % Calc TNP Troponin I NT-Pro-B Natriuret Pep 5416 H Total Protein Albumin Globulin Albumin/Globulin Ratio Lipase 55 L Angiotensin Convert Enz Urine Color Urine Appearance Urine pH Ur Specific [place] Urine Protein Urine Glucose (UA) Urine Ketones Urine Blood Urine Nitrite Urine Bilirubin Urine Urobilinogen Ur Leukocyte Esterase Urine WBC (Auto) Urine RBC (Auto) U Hyaline Cast (Auto) U Epithel Cells (Auto) Urine Bacteria (Auto) 08/18/18 08/18/18 08/18/18 12:45 18:57 18:57 WBC RBC Hgb Hct MCV MCH MCHC RDW Std Deviation RDW Coeff of [place] Plt Count MPV Immature Gran % (Auto) Neut % (Auto) Lymph % (Auto) [place] % (Auto) Eos % (Auto) Baso % (Auto) Immature Gran # (Auto) Neut # (Auto) Lymph # (Auto) [place] # (Auto) Eos # (Auto) Baso # (Auto) PT INR APTT PTT Ratio D-Dimer VBG pH VBG pCO2 VBG pO2 VBG HCO3 VBG O2 Saturation VBG Base Excess Barometric Pressure Sodium Potassium Chloride Carbon Dioxide Anion Gap BUN Creatinine Est Cr Clr Drug Dosing Est GFR ( Amer) Est GFR (Non-Af Amer) BUN/Creatinine Ratio Glucose Calcium Magnesium Total Bilirubin AST ALT Alkaline Phosphatase Total Creatine Kinase CK-MB (CK-2) CK/CKMB % Calc Troponin I < 0.015 NT-Pro-B Natriuret Pep Total Protein Albumin Globulin Albumin/Globulin Ratio Lipase Angiotensin Convert Enz Cancelled Urine Color [place] Urine Appearance Cloudy H Urine pH 5.0 Ur Specific [place] 1.032 H Urine Protein 1+ H Urine Glucose (UA) Negative Urine Ketones Trace H Urine Blood Negative Urine Nitrite Positive H Urine Bilirubin Negative Urine Urobilinogen Negative Ur Leukocyte Esterase 1+ H Urine WBC (Auto) 10-30 H Urine RBC (Auto) 5-10 H U Hyaline Cast (Auto) 0 U Epithel Cells (Auto) >30 H Urine Bacteria (Auto) Negative Diagnostic Findings CTA chest - IMPRESSION: 1. No evidence of pulmonary embolus. 2. Fluid collection associated with the implanted cardiac defibrillator. Sterility cannot be confirmed. 3. Marked cardiomegaly with persistent pericardial effusion. 4. Volume overload and congestive change. No xena pulmonary edema. 5. Limited nodular consolidation in the posterior segment of the right upper lobe new from prior, possibly aspiration or infection. 6. Resolution of prior right apical groundglass opacities and peribroncho vascular nodule consistent with an inflammatory or infectious etiology. 7. Significant interval worsening of mediastinal lymphadenopathy. Persistent right hilar lymphadenopathy. Attention on follow-up as underlying lymphoproliferative disease or metastases cannot be excluded though this may be reactive or relate to congestive change. EKG - a.fib, RSR' pattern lead III, no acute ST changes Code Status & VTE Plan Code Status level 1 full code VTE Prophylaxis Plan VTE Prophylaxis will be ordered: Yes (1) Diabetes Diabetes mellitus type: type 2 Diabetes mellitus thiokol operator insulin use: without thiokol operator use Diabetes mellitus complication status: without complication Qualified Code(s): E11.9 - Type 2 diabetes mellitus without complications (2) Pericarditis Pericarditis type: unspecified type Chronicity: acute Qualified Code(s): I30.9 - Acute pericarditis, unspecified (3) Schizoaffective disorder Schizoaffective disorder type: other Qualified Code(s): F25.8 - Other schizoaffective disorders (4) COPD (chronic obstructive pulmonary disease) COPD type: unspecified COPD Qualified Code(s): J44.9 - Chronic obstructive pulmonary disease, unspecified
--- NOTE | 2018-08-18 17:11 | Cardiology Progress Note ---
Date of Service August 18, 2018 Assessment & Plan (1) SOB (shortness of breath): She presents with recurrent shortness of breath. She clearly has cardiac abnormalities which could lead to shortness of breath however she does not appear to be fluid overloaded today to any great extent, her weight is only slightly up compared to her last admission, she is not in pulmonary edema although she may have some pulmonary vascular congestion and she does not have peripheral edema. Although she has chronic congestive heart failure her current exacerbation of shortness of breath may be pulmonary in etiology. She does have prolonged expiration consistent with bronchospasm and a cough, that may explain the presentation and can certainly be exacerbated by her underlying cardiac conditions. It may be worthwhile to diuresis and see if that helps with her shortness of breath, but I agree we should look for a pulmonary cause. (2) Congestive heart failure with cardiomyopathy: She has long-standing congestive heart failure with a severe cardiomyopathy. Although that may well contribute to her difficulty with exertion, she is not in pulmonary edema and her current exacerbation of shortness of breath may not be entirely heart failure. I would however recommend diuresing until her creatinine starts to go up, I see no harm in that and even if it makes her little bit dehydrated that may be beneficial except that it may affect her blood pressure. Often however the blood pressure is low because of systolic cardiac function and it may not dramatically affect blood pressure, I think it is worth the experiment. (3) Pericardial effusion: She has a pericardial effusion, it may be worthwhile to look at it again although it does not seem likely that it is changed much as she has no evidence of tamponade. (4) Permanent atrial fibrillation: She is in atrial fibrillation, her heart rate is now well controlled on her current dose of beta-julee. I would continue the metoprolol at 100 mg daily, this will be beneficial for her left ventricular function as well. She does complain of some lightheadedness when standing up so I do not know that we can go up on the dose, although hopefully over time we can. We do not have to worry about her heart rate getting too slow and I would continue her digoxin. Subjective She presents now with an exacerbation of shortness of breath. She evidently had been doing relatively well (she has chronic shortness of breath and chronic oxygen at home), was seen in our office several days ago and was doing well. Today she developed acute shortness of breath and came into the emergency room. She also has been having some cough. She does describe orthopnea and PND althou gh is not consistent about that. She has not had peripheral edema. She has not had palpitations, she has been taking her medications and her heart rate has been well controlled. She is tolerating Xarelto well. Physical Exam Vital Signs (Past 24 Hours): Last Vital Signs Temp 36.8 C 08/18/18 10:27 Pulse 78 08/18/18 16:04 Resp 20 08/18/18 16:04 BP 90/67 L 08/18/18 16:04 Pulse Ox 3 L 08/18/18 16:04 Physical Exam: Constitutional: Alert, cooperative and in no distress. HEENT: Unremarkable Neck: No jugular venous distention, carotid pulses are irregular but otherwise normal and equal bilaterally without bruits. Pulmonary: She has prolonged expiration and some expiratory wheezing, cough on deep inspiration. No rales. Cardiac: Irregular well-controlled rhythm with no murmur, gallop or rub. Abdomen: Soft, nontender with normal bowel sounds. Extremities: No edema. Distal pulses intact. Neurologic: No focal findings. Gait is steady. Skin: No rash, ecchymoses or petechiae. Results & Data Diagnostic Findings Chest x-ray: Cardiomegaly, mild pulmonary congestion, no clear congestive heart failure. Prominent lymphadenopathy. CT chest: Evidence of pericardial effusion and an effusion around the ICD site in the left prepectoral region. Hilar adenopathy. Electrocardiogram: Atrial fibrillation with a very well controlled heart rate Telemetry: Atrial fibrillation, excellent heart rate control
[2018-08-18] MEDS ORDERED: ACETAMINOPHEN 325 MG TAB PO PRN (17:22)
[2018-08-18] MEDS ORDERED: ONDANSETRON INJ 2 MG/ML 2 ML VIAL IV PRN (17:22)
[2018-08-18] MEDS ORDERED: ALBUTEROL HFA 8 GM INHALER INH PRN (17:22)
[2018-08-18] MEDS: FUROSEMIDE 40 MG in SYRINGE 0 ML IV SCH (18:08)
[2018-08-18] MEDS: DIGOXIN 0.125 MG TAB PO SCH (19:22)
[2018-08-18] MEDS: COLCHICINE 0.6 MG TAB PO SCH (21:40)
[2018-08-18] MEDS: GABAPENTIN 600 MG TAB PO SCH (21:40)
[2018-08-18] MEDS: QUETIAPINE FUMARATE 300 MG TABLET PO SCH (21:41)
[2018-08-18] MEDS: TRAZODONE HCL 100 MG TAB PO SCH (21:41)
[2018-08-18] MEDS: DOCUSATE SODIUM 100 MG CAP PO SCH (21:41)
[2018-08-19 06:02] LABS: BUN Creatinine Ratio 20.6 (10-20); Calcium 8.8 mg/dl (8.5-10.1); Creatinine Clr Calc Pharmacy 90.2 ml/min; Est GFR (African American) 82.8; Est GFR (Non-African American) 71.5; Potassium 3.2 mmol/L (3.5-5.1)
[2018-08-19] MEDS: BENZONATATE 100 MG CAPSULE PO PRN ×2 (07:35→15:42)
[2018-08-19] MEDS: QUETIAPINE FUMARATE 25 MG TABLET PO SCH (07:44)
[2018-08-19] MEDS: DOCUSATE SODIUM 100 MG CAP PO SCH ×2 (07:44→20:19)
[2018-08-19] MEDS: GABAPENTIN 600 MG TAB PO SCH ×2 (07:44→20:19)
[2018-08-19] MEDS: ATORVASTATIN 10 MG TAB PO SCH (07:45)
[2018-08-19] MEDS: COLCHICINE 0.6 MG TAB PO SCH ×2 (07:45→20:20)
[2018-08-19] MEDS: PANTOprazole 40 MG TAB PO SCH (07:45)
[2018-08-19] MEDS: RIVAROXABAN 20 MG TAB PO SCH (07:45)
[2018-08-19] MEDS: SPIRONOLACTONE 25 MG TAB PO SCH (08:57)
[2018-08-19] MEDS ORDERED: METOPROLOL SUCC 50MG EXT REL TAB PO SCH (09:00)
[2018-08-19] MEDS: DIGOXIN 0.125 MG TAB PO SCH (15:42)
[2018-08-19] MEDS ORDERED: METOPROLOL SUCC 50MG EXT REL TAB PO STA (15:45)
[2018-08-19] MEDS: FUROSEMIDE 40 MG in SYRINGE 0 ML IV SCH (19:18)
[2018-08-19] MEDS ORDERED: POTASSIUM CHLORIDE 20 MEQ TABCR PO STA (19:25)
[2018-08-19] MEDS: TRAZODONE HCL 100 MG TAB PO SCH (20:20)
[2018-08-19] MEDS: QUETIAPINE FUMARATE 300 MG TABLET PO SCH (20:22)
--- NOTE | 2018-08-19 21:29 | Consultation Report ---
DATE OF CONSULTATION: 08/19/2018 PULMONARY MEDICINE CONSULTATION REASON FOR CONSULTATION: COPD, hilar adenopathy, shortness of breath. HISTORY OF PRESENT ILLNESS: A 57-year-old black female was readmitted to [facility] earlier today by Dr. Torin Hardwick because of progressive symptoms of dyspnea. Over the past week to week and a half, she has been extremely dyspneic and orthopneic with bouts of PND and dyspnea with even minimal exertion. She states it coincided with the return of her dog by a neighbor to her house. She has had this dog for over a year, but wonders whether "she is allergic to the dog dander." Her dyspnea has been felt to be multifactorial in origin from chronic CHF, primary pulmonary disease and pulmonary hypertension, deconditioning and the presentation of atrial fibrillation with poorly controlled ventricular response. Previous cardiac catheterization has not revealed evidence for coronary disease. She has been diuresed. There is also a concern about the CT scan of the chest that was performed on admission and in comparison to 07/04/2018 during a previous hospitalization. There was no evidence of pulmonary thromboembolic disease. A small fluid collection was associated with the implanted cardiac defibrillator. She has marked cardiomegaly with persistent pericardial effusion and there is a suggestion of volume overload and congestive change without xena pulmonary edema. There is an area previously of a ground-glass infiltrate in the right apex, which is not as apparent and there is an area of nodular solid consolidation in the posterior segment of the right upper lobe. This has also been interval increase in size of the pathologically enlarged lymph nodes elsewhere in the mediastinum and right hilar region with very prominent pulmonary arteries. There is reflux of contrast into the IVC and hepatic veins suggesting elevated right heart pressures. A lymphoproliferative disease versus other etiology has not been ruled out. She has a chronic cough. She does have a smoking history, stating she started smoking in her teens, but it would take a week to smoke a pack of cigarettes, she quit 3 years ago. She has family members in [place] and a daughter in [place]. Blood cultures have been negative from 05/31/2018. She states this is her fifth admission since [facility]. Dr. Christensen saw the patient yesterday. He felt that she has longstanding congestive heart failure with severe cardiomyopathy. There is no evidence for cardiac tamponade clinically and he felt that her atrial fibrillation was well controlled with a ventricular response that was controlled on the current beta julee dosage of 100 mg of metoprolol. She has had no hemoptysis, but she has been producing purulent phlegm on occasion. No pleuritic pain currently. She has also seen a blankmaker, Dr. Archibald, on 08/04/2018. She has chronic renal disease and during that hospitalization, her renal function overnight worsened, it was felt to be secondary to hemodynamically mediated ATN with severe hypertension. Right heart catheterization reportedly has shown severe pulmonary hypertension. She is being considered for AV node ablation. Her pulmonary hypertension was felt to be related to left heart failure. For details of past medical history, medications, family and social history, I refer you to current and past record. PHYSICAL EXAMINATION: GENERAL: Reveals a well-developed, obese black female, appearing mildly dyspneic at rest. CURRENT VITAL SIGNS: Blood pressure 117/82, pulse 79 and reg respiratory rate 22, temperature 36.8, O2 sat 93% on room air. SKIN: Warm and dry. HEENT: Atraumatic, normocephalic, PERRLA, EOMI. Conjunctivae pale. Sclerae nonicteric. Fundi poorly visualized. NECK: Neck veins are not distended at 45 degrees. No obvious adenopathy in the supra or infraclavicular areas. LUNGS: Scattered rhonchi, otherwise distant P and A. CARDIAC: Irregularly irregular rhythm. I do not appreciate a gallop, loud P2. ABDOMEN: Soft, protuberant. EXTREMITIES: Trace pedal edema. No clubbing. Peripheral cyanosis. NEUROLOGIC: Intact. No lateralizing signs. LABORATORY DATA: CTA as noted (see HPI). H and H 12 and 38, normal white count, no significant peripheral eosinophilia. ABGs on 08/01/2018; pH 7.45, pCO2 of 29, pO2 of 109 on 3 liters. JOHNSON is positive 1:80. Influenza titer negative for A and B. Creatinine 0.9, BUN 18. OVERALL ASSESSMENT: A 57-year-old black female with hypertensive cardiomyopathy and severe pulmonary hypertension, chronic diastolic heart failure with progressive mediastinal and right hilar lymphadenopathy. I think at this point in time, the patient should undergo bronchoscopic evaluation with EBUS and have discussed this with Dr. Guillermo and the hospitalist service. The patient's pulmonary hypertension may very well be secondary to left ventricular decompensation and chronic diastolic heart failure with atrial fibrillation, poorly controlled ventricular response, and this would represent WHO class 2, stage III/IV, but I am not convinced that the PHT is totally the result from cardiac reasons, perhaps obstructive sleep apnea or even sarcoidosis may be contributing along w any form of intrinsic lung disease. The asymmetric hilar adenopathy in the chest would speak against sarcoid, but certainly not rule it out. I think we need to concentrate on securing a diagnosis here and given the frequency of her hospitalizations (5 since [facility]), I think it is imperative that we proceed with a diagnostic evaluation. We will discuss further with the hospitalist, patient's Private Duty Aide and Dr. Guillermo. NAVYA
--- NOTE | 2018-08-20 01:27 | Consultation Report ---
DATE OF CONSULTATION: 08/19/2018 REASON FOR CONSULTATION: Evaluate for mediastinal adenopathy. HISTORY OF PRESENT ILLNESS: Grazyna Gonzales is a 57-year-old female who has been nagged for the last 3 months by shortness of breath and a cough. Her dyspnea on exertion is significant. She cannot walk from her bed to the bathroom without getting out of breath. She also has mediastinal adenopathy, which has worsened. She has a very poor heart function and has a cardiomyopathy, which does not appear to be ischemic. She also probably has probable pulmonary hypertension. She had been evaluated by cardiology and Dr. Christensen does not feel she is in congestive heart failure currently. Her lymphadenopathy is concerning and she also has a pericardial effusion, which has been present for at least the last several weeks. She is in atrial fibrillation with a controlled rate. I was asked to evaluate her to possibly biopsy her mediastinal lymph nodes. A couple of weeks ago, she did have her pacemaker catheter exchange. She was discharged after being at home only for about a week and I have been asked to evaluate her for these lymph nodes. PAST MEDICAL HISTORY: 1. Obesity. 2. Diabetes mellitus. 3. Apparent pericarditis. 4. Schizoaffective disorder. 5. Chronic obstructive pulmonary disease. 6. History of pulmonary embolism. 7. Probable pulmonary hypertension. 8. Marked cardiomyopathy with ejection fraction between 15%-20%. 9. Atrial fibrillation. 10. Apparent episodes of congestive heart failure. 11. History of cigarette smoking. 12. Pericardial effusion. 13. Hyperlipidemia 14. Diabetes mellitus. 15. Probable gastroesophageal reflux disease. 16. Glaucoma. 17. Posttraumatic stress disorder. PAST SURGICAL HISTORY: 1. Insertion of a pacemaker with replacement of battery for ICD. 2. Status post open reduction internal fixation, left ankle. 3. 7, para 5, abortus 2. 4. Tubal ligation. MEDICATIONS: (AT HOME): 1. Xarelto. 2. Spironolactone. 3. Atorvastatin. 4. Digoxin. 5. Gabapentin. 6. Colace. 7. Benadryl. 8. Omeprazole. 9. Vistaril. 10. Seroquel. 11. Metformin. 12. Colchicine. 13. Bumex. 14. Trazodone. 15. Coreg. 16. Metoprolol. 17. Lasix. ALLERGIES: FENTANYL CAUSES RASH AND ITCHING. SOCIAL HISTORY: The patient is from [facility]. 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 She currently lives alone. She smokes cigarettes on and off until about 3 years ago when she stopped. FAMILY MEDICAL HISTORY: The patient has 5 living children, are all healthy to her knowledge, although she really keeps contact with only 2 of them. Her younger brother in his 40s from myocardial infarction and stated that he was smoking crack cocaine. Her father is still alive in his 70s. She is unsure of any medical problems and her mother of lung cancer in her early 70s. She has a sister that had cerebral aneurysm, which was operated on and is living. REVIEW OF SYSTEMS: She denies fevers or chills but does have a cough, although she produces a scant amount of sputum, although she does produce some. She also has some hemoptysis on occasion. She has marked dyspnea on exertion which is simply not improved, in fact she thinks it is worse now than it was a month ago. She denies sinus congestion. She has had no problems with swallowing. She denies palpitations, does have marked dyspnea on exertion and even dyspnea at rest and is unable to sleep in a flat surface. She is awakened with paroxysmal nocturnal dyspnea. She has some nausea in the last few weeks, but no vomiting, no diarrhea, no constipation. She denies any urinary symptoms. She has had no neurologic symptoms such as amaurosis fugax and transient ischemic attack. She does have dry skin, but has no open wounds. She wears glasses but denies any visual or auditory symptoms. PHYSICAL EXAMINATION: GENERAL: This is a 5 feet 8 inches, 240 pounds female who is awake, alert and oriented. HEENT: Her extraocular movements are intact. Teeth are in pretty good repair. Tongue is midline. She has no oral candidiasis. NECK: Supple. I detect no supraclavicular or cervical lymphadenopathy or neck vein distention. HEART: She currently has an irregular rhythm of her heart had about 90 beats per minute. She has a pacer site in her left infraclavicular area and has some fluctuance, but has no erythema and very little in the way of tenderness. She has mild expiratory wheezing with decreased breath sounds in both bases. She has no obvious rales. She has an irregular rhythm of her heart, but it is only about 90 beats per minute. She has no significant rub. ABDOMEN: Obese, soft, nontender. She does not have any edema and has no joint effusions and has good pulses. NEUROLOGIC: She is completely intact. DATA: I reviewed her CT scan and she does indeed have 2 cm pericardial effusion, which has not really changed much in the last several weeks. She also has biatrial enlargement. She has lymphadenopathy with a very large right level IV node. I do not see pulmonary nodules per se. She has waxing and waning of ground-glass opacities. Her mediastinal adenopathy has worsened. ASSESSMENT AND PLAN: Worsening mediastinal adenopathy. I had a long talk with the patient today. We discussed thoracoscopy with biopsy, mediastinoscopy or endobronchial ultrasound. It is also important to note this patient states that she has lost 50 pounds in the last 6 months. She denies night sweats but I am concerned about a possible lymphoma. I had a long talk about this and I explained to the differences between the fine needle aspirations we do and endobronchial ultrasound and actually removing a node with a mediastinoscopy. I am going to go ahead and proceed with a mediastinoscopy on 08/21/2018. NAVYA
[2018-08-20] MEDS: BENZONATATE 100 MG CAPSULE PO PRN ×2 (09:10→21:06)
[2018-08-20] MEDS: SPIRONOLACTONE 25 MG TAB PO SCH (09:10)
[2018-08-20] MEDS: ATORVASTATIN 10 MG TAB PO SCH (09:13)
[2018-08-20] MEDS: PANTOprazole 40 MG TAB PO SCH (09:13)
[2018-08-20] MEDS: METOPROLOL SUCC 50MG EXT REL TAB PO SCH (09:13)
[2018-08-20] MEDS: QUETIAPINE FUMARATE 25 MG TABLET PO SCH (09:13)
[2018-08-20] MEDS: COLCHICINE 0.6 MG TAB PO SCH ×2 (09:13→21:06)
[2018-08-20] MEDS: DOCUSATE SODIUM 100 MG CAP PO SCH ×2 (09:13→21:06)
[2018-08-20] MEDS: RIVAROXABAN 20 MG TAB PO SCH (09:16)
[2018-08-20] MEDS: GABAPENTIN 600 MG TAB PO SCH ×2 (09:16→21:06)
--- NOTE | 2018-08-20 09:25 | Hospitalist Progress Note ---
Date of Service August 19, 2018 Assessment & Plan (1) SOB (shortness of breath): I agree with admitting provider as I am not entirely convinced that her symptoms are in line with her being fluid overloaded. There is concern that patient may have a primary lung process as patient has had multiple readmissions in the past few months. She continues to be orthopnic and has dyspnea on exertion over past few days. Interestingly her weight is largely the same as it was when she was recently in the hospital a week ago. Her dyspnea may be multifactorial in origin: CHF, a primary pulmonary process, pulmonary hypertension, deconditioninG. Prior heart catheterization has not revealed any coronary artery disease. Will continue with furosemide for now, may consider transitioning to bumex as this has good oral bioavailablity. The hilar and mediastinal lymphadenopathy is concerning. There has been concern about autoimmune disease given her positive JOHNSON. Will consult pulmonary for further assistance. (2) Acute on chronic systolic heart failure: Continue beta-julee. Continue Aldactone. Of note, the patient is taking metoprolol not carvedilol. She is also taking Bumex not Lasix. Formal cardiology consultation was requested with Dr. Christensen. Increased toprol to 200 mg in AM starting on 08/20. Gave an additonal dose of toprol on 08/19. Most recent echo showed severely reduced ejection fraction at 15-20%. This is nonischemic in origin. (3) Permanent atrial fibrillation: A. fib rates are well controlled in the emergency department. AV jennifer ablation was attempted during the prior stay without success. She has a by Bi-V pacemaker in place. She takes chronic Xarelto for anticoagulation. Continue metoprolol. Could consider a pacer interrogation to ensure that home heart rates are controlled. I will defer that to Dr. Christensen. (4) Pulmonary hypertension: Right heart catheterization within the last month revealed severely high pulmonary pressures. I believe that her pulmonary hypertension is likely contributing heavily to her symptoms. Defer management to cardiology. Continue nasal cannula oxygen. (5) Pericardial effusion: There has been concern that this is autoimmune in nature. She has had an elevated JOHNSON titer as well as sed rate. She takes colchicine twice daily per recommendations from rheumatology. He has yet to have formal rheumatologic evaluation in the clinic. In light of lymphadenopathy I have sent an NIKO level for sarcoid. 2 hospital stays ago she appeared to have pericarditis which resolved with colchicine. (6) Diabetes: This is well controlled. Hold metformin. NovoLog sliding scale for glycemic control. (7) Pericarditis: Resolved. she has had no pleuritic chest pain. Continue colchicine (8) Morbid obesity: BMI 36 (9) Chronic respiratory failure with hypoxia: The patient has gone on [id number] oxygen within the last month. Suspect pulmonary hypertension is playing a large role in this. Compensated CHF could be playing a role as well. (10) Schizoaffective disorder: Continue all home medications. This is relatively stable. (11) COPD (chronic obstructive pulmonary disease): There does not appear to be an acute exacerbation. (12) History of pulmonary embolism: Continue Xarelto for prophylaxis. (13) DVT prophylaxis: Xarelto. total time spent 38 minutes. Subjective Patient reports no signficant change from admission. She continues to feel SOB and is having these coughs. She states though that she did not feel Bumex was working at home as her amount of urine was much decreased as compared to when she was on lasix. (I explained to patient that this may be due to multiple reasons and not only that medicine is not working. For example: she may have been more fluid overloaded when she was on lasix, hence more fluid coming out.) Constitutional: no fever, no sweats and no malaise Eyes: no blind spots and no discharge Ear, Nose, Mouth, Throat: no ear pain Respiratory: + cough, + dyspnea, + dyspnea on exertion, + hemoptysis (first thing in am only) and + sputum production Cardiovascular: + dyspnea at rest, + dyspnea on exertion, + orthopnea and + paroxysmal nocturnal dyspnea; no chest pain, no chest pain with activity and no edema Gastrointestinal: + nausea; no abdominal pain, no vomiting, no constipation and no diarrhea/loose stools Genitourinary (Female): no dysuria and no hematuria Musculoskeletal: no back pain Integumentary: + rash (dry skin) Psychiatric: + depression (has appt with psych this coming Tuesday) Physical Exam Vital Signs (Past 24 Hours): Last Vital Signs Temp 36.4 C 08/19/18 15:59 Pulse 96 08/19/18 15:59 Resp 20 08/19/18 15:59 BP 133/87 08/19/18 15:59 Pulse Ox 97 08/19/18 15:59 Physical Exam: Constitutional: well developed, well nourished and + obese; no acute distress and not ill appearing Eyes: PERRL ENMT: external ear and nose normal, oropharynx normal Neck: trachea midline, no thyromegaly Respiratory: Auscultation: + diminished lung sounds (bases ); no rales and no wheezes Cardiovascular: Rate/Rhythm: regular rate; + abnormal rhythm (irregular) Heart Sounds: normal S1 and normal S2; no murmur and no cardiac rub Vessels: + JVD; Extremities: no edema Gastrointestinal (Abdomen): normal bowel sounds, soft, nontender, no hepatosplenomegaly Musculoskeletal: Extremities: strength 5/5 throughout Skin: pacer site - left upper chest - swelling noted, no erythema, steri strips in place Neurologic: deep tendon reflexes 2+ bilaterally and moves all extremities Psychiatric: A+Ox3, euthymic affect Lymphatic: no cervical lymphadenopathy (1) Diabetes Diabetes mellitus type: type 2 Diabetes mellitus nursing home insulin use: without termite technician use Diabetes mellitus complication status: without complication Qualified Code(s): E11.9 - Type 2 diabetes mellitus without complications (2) Pericarditis Pericarditis type: unspecified type Chronicity: acute Qualified Code(s): I30.9 - Acute pericarditis, unspecified (3) Schizoaffective disorder Schizoaffective disorder type: other Qualified Code(s): F25.8 - Other schi zoaffective disorders (4) COPD (chronic obstructive pulmonary disease) COPD type: unspecified COPD Qualified Code(s): J44.9 - Chronic obstructive pulmonary disease, unspecified
--- NOTE | 2018-08-20 10:12 | Hospitalist Progress Note ---
Date of Service August 20, 2018 Assessment & Plan (1) SOB (shortness of breath): I agree with admitting provider as I am not entirely convinced that her symptoms are in line with her being fluid overloaded. There is concern that patient may have a primary lung process as patient has had multiple readmissions in the past few months. She continues to be orthopnic and has dyspnea on exertion over past few days. Interestingly her weight is largely the same as it was when she was recently in the hospital a week ago. Her dyspnea may be multifactorial in origin: CHF, a primary pulmonary process, pulmonary hypertension, deconditioning. Prior heart catheterization has not revealed any coronary artery disease. Will continue with furosemide for now, may consider transitioning to bumex as this has good oral bioavailablity. The hilar and mediastinal lymphadenopathy is concerning. There has been concern about autoimmune disease given her positive JOHNSON. Consulted Pulmonary, who then consulted Thoracic surgery. Concern that pulmonary hypertension may be playing a role. However given these multiple readmissions, we need to diagnose her possible pulmonary illness. patient will have video mediastinoscopy with biopsy tomorrow ON 08/21. (2) Acute on chronic systolic heart failure: Continue beta-julee. Continue Aldactone. Of note, the patient is taking metoprolol not carvedilol. She is also taking Bumex not Lasix. Formal cardiology consultation was requested with Dr. Christensen. Increased toprol to 200 mg in AM starting on 08/20. Gave an additonal dose of toprol on 08/19. Most recent echo showed severely reduced ejection fraction at 15-20%. This is nonischemic in origin. (3) Permanent atrial fibrillation: A. fib rates are well controlled in the emergency department. AV jennifer ablation was attempted during the prior stay without success. She has a by Bi-V pacemaker in place. She takes chronic Xarelto for anticoagulation. Continue metoprolol. Could consider a pacer interrogation to ensure that home heart rates are controlled. I will defer that to Dr. Christensen. (4) Pulmonary hypertension: Right heart catheterization within the last month revealed severely high pulmonary pressures. I believe that her pulmonary hypertension is likely contributing heavily to her symptoms. Defer management to cardiology. Continue nasal cannula oxygen. (5) Pericardial effusion: There has been concern that this is autoimmune in nature. She has had an elevated JOHNSON titer as well as sed rate. She takes colchicine twice daily per recommendations from rheumatology. He has yet to have formal rheumatologic evaluation in the clinic. In light of lymphadenopathy I have sent an NIOK level for sarcoid. 2 hospital stays ago she appeared to have pericarditis which resolved with colchicine. (6) Diabetes: This is well controlled. Hold metformin. NovoLog sliding scale for glycemic control. (7) Pericarditis: Resolved. she has had no pleuritic chest pain. Continue colchicine (8) Morbid obesity: BMI 36 (9) Chronic respiratory failure with hypoxia: The patient has gone on [id number] oxygen within the last month. Suspect pulmonary hypertension is playing a large role in this. Compensated CHF could be playing a role as well. (10) Schizoaffective disorder: Continue all home medications. This is relatively stable. (11) COPD (chronic obstructive pulmonary disease): There does not appear to be an acute exacerbation. (12) History of pulmonary embolism: Continue Xarelto for prophylaxis. (13) DVT prophylaxis: Xarelto. total time spent 36 minutes. Included time with patient, reviewing chart and discussion with consultants. Subjective Patient reports no significant change from admission. Patient continues have SOB at rest. She states that she feels worse at home. I did discuss with patient regarding her dog and possible allergies. Respiratory: + cough, + dyspnea, + dyspnea on exertion, + hemoptysis (first thing in am only) and + sputum production Cardiovascular: + dyspnea at rest, + dyspnea on exertion, + orthopnea and + paroxysmal nocturnal dyspnea; no chest pain, no chest pain with activity and no edema Gastrointestinal: + nausea; no abdominal pain, no vomiting, no constipation and no diarrhea/loose stools Integumentary: + rash (dry skin) Psychiatric: + depression (has appt with psych this coming Tuesday) Physical Exam Vital Signs (Past 24 Hours): Last Vital Signs Temp 36.7 C 08/20/18 07:48 Pulse 99 H 08/20/18 07:48 Resp 16 08/20/18 07:48 BP 112/84 08/20/18 07:48 Pulse Ox 99 08/20/18 07:48 Physical Exam: Constitutional: well developed, well nourished and + obese; no acute distress and not ill appearing Eyes: PERRL ENMT: external ear and nose normal, oropharynx normal Neck: trachea midline, no thyromegaly Respiratory: Auscultation: + diminished lung sounds (bases); no rales and no wheezes Cardiovascular: Rate/Rhythm: regular rate; + abnormal rhythm (irregular) Heart Sounds: normal S1 and normal S2; no murmur and no cardiac rub Vessels: + JVD; Extremities: no edema Gastrointestinal (Abdomen): normal bowel sounds, soft, nontender, no hepatosplenomegaly Musculoskeletal: Extremities: strength 5/5 throughout Skin: pacer site - left upper chest - swelling noted, no erythema, steri strips in place Neurologic: deep tendon reflexes 2+ bilaterally and moves all extremities Psychiatric: A+Ox3, euthymic affect Lymphatic: no cervical lymphadenopathy (1) Diabetes Diabetes mellitus complication status: without complication 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
[2018-08-20 10:40] LABS: Hematocrit (blood only) 38.1 % (37-47); Hemoglobin 11.7 g/dL (12.0-16.0); Mean Corpuscular Hgb Conc 30.7 g/dL (32-36); Mean Corpuscular Volume 88.8 fL (80-100); Mean Platelet Volume 9.7 fL (7.4-10.4); Platelet Count 230 K/uL (130-400); RDW Coefficient of Variation 16.6 % (11.5-14.5); RDW Standard Deviation 53.4 fL (36.4-46.3); Red Blood Count 4.29 M/uL (4.2-5.4); White Blood Count 8.31 K/uL (4.8-10.8)
[2018-08-20 10:54] LABS: BUN Creatinine Ratio 23.6 (10-20); Calcium 8.8 mg/dl (8.5-10.1); Creatinine Clr Calc Pharmacy 91.2 ml/min; Est GFR (Non-African American) 72.5; Potassium 3.9 mmol/L (3.5-5.1)
--- NOTE | 2018-08-20 10:59 | Progress Note ---
DATE: 08/20/2018 PULMONARY MEDICINE PROGRESS NOTE Chart reviewed, the patient examined. SUBJECTIVE: The patient is very anxious about tomorrow's procedure. I have to taken the liberty of consulting Dr. Joe Guillermo. Due to the increase in lymph node enlargement in the mediastinum and right hilar area, I believe at a minimum, the patient should undergo fiberoptic bronchoscopy with EBUS, and if not diagnostic, I have discussed the potential need for mediastinoscopy. What has precipitated this drive to ascertain a diagnosis has been the multiple admissions since . Now, the patient unfortunately represents a significant high risk for Gen Anesthesia given the reduced LVEF of 15-20%, moderate mitral regurgitation and pulmonary hypertension with a right heart catheterization that is suggestive PA systolic pressures in the high 60 range. Well, it is certainly possible that her heart disease has contributed solely to her pulmonary hypertension, one would have to be concerned about other etiologies or contributing factors. The patient was to be scheduled by Mara Garcia/a nurse practitioner in our office for a nocturnal polysomnogram split study/nocturnal polysomnogram after she was seen in clinic on 08/18 as certainly obstructive sleep apnea especially associated with significant hypoxemia can contribute to pulmonary hypertension. The mediastinal and hilar adenopathy, although was somewhat atypical for sarcoidosis, can also explain pulmonary hypertension if sarcoid is dx and certainly an underlying neoplastic process is also in the differential. Reactive mediastinal and hilar adenopathy from frequent intercurrent lung infections also is operative here. This has been explained to the patient, but given the presence of a reduced ejection fraction and pulmonary hypertension, she remains high risk for general anesthesia and surgical intervention.Pt has required O2 at 2l via nc at rest and 4 liters w exertion as outpt. PLAN: We will discuss further with Dr. Guillermo, certainly the weight loss could be from severe inanition from chronic cardiac disease, but a neoplasm cannot be ruled out and I share his concern for possible lymphoma. It may be that mediastinoscopy will be indicated if endobronchial ultrasound biopsy is nondiagnostic. MICHAELD
--- NOTE | 2018-08-20 11:11 | Progress Note ---
DATE: 08/20/2018 I had a long talk with Ms. Gonzales today. She feels about the same. I also discussed this case with Dr. Justice. We are going to proceed with a video mediastinoscopy with biopsy tomorrow. Particularly interested in her right level 4 node which is large. We again discussed our concerns about possible connective tissue disorder versus a neoplasm. Her weight loss is concerning to me. We again talked about endobronchial ultrasounds. I explained quite frankly and I concerned about this not obtaining a diagnosis with endobronchial ultrasound. The patient is in concurrence. We did discuss bleeding which was a low probability and more importantly recurrent laryngeal nerve injury. Be as it may, I think this is a low risk.
[2018-08-20] MEDS: DIGOXIN 0.125 MG TAB PO SCH (17:13)
[2018-08-20] MEDS: FUROSEMIDE 40 MG in SYRINGE 0 ML IV SCH (18:26)
[2018-08-20] MEDS: TRAZODONE HCL 100 MG TAB PO SCH (21:06)
[2018-08-20] MEDS: QUETIAPINE FUMARATE 300 MG TABLET PO SCH (21:06)
--- NOTE | 2018-08-21 08:49 | History & Physical Bridge Note ---
Date of Service August 21, 2018 History & Physical Bridge Note I have examined the patient, reviewed the History & Physical and in the interval since the performance of the History & Physical I have noted the following changes of clinical significance: no changes noted
[2018-08-21] MEDS: RIVAROXABAN 20 MG TAB PO SCH (08:51)
[2018-08-21] MEDS: ATORVASTATIN 10 MG TAB PO SCH (08:53)
[2018-08-21] MEDS: GABAPENTIN 600 MG TAB PO SCH ×2 (08:53→19:46)
[2018-08-21] MEDS: BENZONATATE 100 MG CAPSULE PO PRN ×2 (08:53→13:57)
[2018-08-21] MEDS: COLCHICINE 0.6 MG TAB PO SCH ×2 (08:53→19:47)
[2018-08-21] MEDS: SPIRONOLACTONE 25 MG TAB PO SCH (08:54)
[2018-08-21] MEDS: DOCUSATE SODIUM 100 MG CAP PO SCH (08:54)
[2018-08-21] MEDS: METOPROLOL SUCC 50MG EXT REL TAB PO SCH (08:54)
[2018-08-21] MEDS: PANTOprazole 40 MG TAB PO SCH (08:54)
[2018-08-21] MEDS: QUETIAPINE FUMARATE 25 MG TABLET PO SCH (08:54)
[2018-08-21 10:05] LABS: Hematocrit (blood only) 36.5 % (37-47); Hemoglobin 11.6 g/dL (12.0-16.0); Mean Corpuscular Hgb Conc 31.8 g/dL (32-36); Mean Corpuscular Volume 85.3 fL (80-100); Mean Platelet Volume 10.2 fL (7.4-10.4); Platelet Count 248 K/uL (130-400); RDW Coefficient of Variation 16.4 % (11.5-14.5); RDW Standard Deviation 50.1 fL (36.4-46.3); Red Blood Count 4.28 M/uL (4.2-5.4)
[2018-08-21 10:09] LABS: BUN Creatinine Ratio 24.4 (10-20); Calcium 8.7 mg/dl (8.5-10.1); Creatinine Clr Calc Pharmacy 90.7 ml/min; Est GFR (African American) 82.8; Est GFR (Non-African American) 71.5; Potassium 3.8 mmol/L (3.5-5.1)
[2018-08-21] MEDS: DIGOXIN 0.125 MG TAB PO SCH (15:07)
--- NOTE | 2018-08-21 16:48 | Hospitalist Progress Note ---
Date of Service August 21, 2018 Assessment & Plan (1) SOB (shortness of breath): Her dyspnea may be multifactorial in origin: CHF, a primary pulmonary process, pulmonary hypertension, deconditioning. Prior heart catheterization has not revealed any coronary artery disease. Will continue with furosemide for now, may consider transitioning to bumex as this has good oral bioavailablity. The hilar and mediastinal lymphadenopathy is concerning. There has been concern about autoimmune disease given her positive JOHNSON. Consulted Pulmonary, who then consulted Thoracic surgery. Concern that pulmonary hypertension may be playing a role. However given these multiple readmissions, we need to diagnose her possible pulmonary illness. patient will have video mediastinoscopy with biopsy on 08/22, placed on hold today due to Xarelto on 08/20 (2) Acute on chronic systolic heart failure: Continue beta-julee. Continue Aldactone. Of note, the patient is taking metoprolol not carvedilol. She is also taking Bumex not Lasix. Formal cardiology consultation was requested with Dr. Christensen. Increased toprol to 200 mg in AM starting on 08/20. Gave an additonal dose of toprol on 08/19. Most recent echo showed severely reduced ejection fraction at 15-20%. This is nonischemic in origin. had dual chamber pacemaker two weeks ago with hopes to improve function examines euvolemic, she has been staying on top of her weights, compliant with medications suggests that this could be non-cardiac issue (3) Permanent atrial fibrillation: A. fib rates are well controlled AV jennifer ablation was attempted during the prior stay without success. She has a by Bi-V pacemaker in place. She takes chronic Xarelto for anticoagulation, on hold for biopsy Continue metoprolol (4) Pulmonary hypertension: Right heart catheterization within the last month revealed severely high pulmonary pressures. likely that pulmonary hypertension is contributing to symptoms Continue nasal cannula oxygen. (5) Pericardial effusion: There has been concern that this is autoimmune in nature. She has had an elevated JOHNSON titer as well as sed rate. She takes colchicine twice daily per recommendations from rheumatology. He has yet to have formal rheumatologic evaluation in the clinic. In light of lymphadenopathy I have sent an NIKO level for sarcoid. 2 hospital stays ago she appeared to have pericarditis which resolved with colchicine. (6) Diabetes: This is well controlled. Hold metformin. NovoLog sliding scale for glycemic control. patient says she does not have DM, uses Metformin for weight control (7) Pericarditis: Resolved. she has had no pleuritic chest pain. Continue colchicine (8) Morbid obesity: BMI 36 (9) Chronic respiratory failure with hypoxia: The patient has gone on [id number] oxygen within the last month. Suspect pulmonary hypertension is playing a large role in this. Compensated CHF could be playing a role as well. on 3 L currently, no distress (10) Schizoaffective disorder: Continue all home medications. This is relatively stable. (11) COPD (chronic obstructive pulmonary disease): There does not appear to be an acute exacerbation. (12) History of pulmonary embolism: Continue Xarelto for prophylaxis. (13) DVT prophylaxis: hold Xarelto Subjective patient upset about not having surgery today, explained we need one more day for Xarelto to wash out her breathing continues to be labored, especially on exertion she had an episode of urinary incontinence today, recommended treating UTI she also had stool incontinence, discussed holding Colace which she agreed with Review of Systems All systems reviewed & are unremarkable except as noted in HPI & below Physical Exam Vital Signs (Past 24 Hours): Last Vital Signs Temp 36.6 C 08/21/18 14:56 Pulse 84 08/21/18 14:56 Resp 16 08/21/18 14:56 BP 113/81 08/21/18 14:56 Pulse Ox 98 08/21/18 14:56 Constitutional: WD/WN, vitals as above Eyes: PERRL, conjunctivae normal, anicteric sclerae ENMT: external ear and nose normal, oropharynx normal Neck: trachea midline, no thyromegaly Respiratory: normal respiratory effort, lungs clear to auscultation Cardiovascular: Rate/Rhythm: regular rate; + abnormal rhythm (irregular irregular) Heart Sounds: normal S1 and normal S2 Vessels: no JVD Extremities: no edema Gastrointestinal (Abdomen): normal bowel sounds, soft, nontender, no hepatosplenomegaly Musculoskeletal: no cyanosis or clubbing, extremities motor strength 5/5 Skin: no rashes, warm and dry Neurologic: patellar DTR's 2+ bilat, sensation intact and PERRL, EOMI, accommodation nl, no face palsy, no dysarthria Psychiatric: A+Ox3, euthymic affect Lymphatic: no cervical or axillary lymphadenopathy Results & Data Laboratory Results Laboratory Results - last 24 hr 08/21/18 08/21/18 08/21/18 09:17 09:17 11:14 WBC 7.10 RBC 4.28 Hgb 11.6 L Hct 36.5 L MCV 85.3 MCH 27.1 MCHC 31.8 L RDW Std Deviation 50.1 H RDW Coeff of Logan 16.4 H Plt Count 248 MPV 10.2 Sodium 139 Potassium 3.8 Chloride 103 Carbon Dioxide 31 Anion Gap 6.0 BUN 22 H Creatinine 0.90 Est Cr Clr Drug Dosing 90.7 Est GFR ( Amer) 82.8 Est GFR (Non-Af Amer) 71.5 BUN/Creatinine Ratio 24.4 H Glucose 84 POC Glucose 97 Calcium 8.7 Medications Administered Current Inpatient Medications Acetaminophen (Tylenol) 650 mg PO Q4H PRN PRN Reason: Pain or Fever Stop: 09/17/18 17:21 Last Admin: 08/20/18 17:14 Dose: 650 mg Documented by: Albuterol (Ventolin Hfa) 2 puffs INH QID PRN PRN Reason: shortness of breath or wheezin Stop: 09/17/18 17:21 Atorvastatin Calcium (Lipitor) 10 mg PO DAILY [facility] Stop: 09/18/18 08:59 Last Admin: 08/21/18 08:53 Dose: 10 mg Documented by: Benzonatate (Tessalon Perle) 100 mg PO TID PRN PRN Reason: Cough Stop: 09/18/18 08:59 Last Admin: 08/21/18 13:57 Dose: 100 mg Documented by: Colchicine (Colcrys) 0.6 mg PO BID [facility] Stop: 09/17/18 20:59 Last Admin: 08/21/18 08:53 Dose: 0.6 mg Documented by: Digoxin (Lanoxin) 0.125 mg PO DAILY@1600 [facility] Stop: 09/17/18 15:59 Last Admin: 08/21/18 15:07 Dose: 0.125 mg Documented by: Diphenhydramine HCl (Benadryl Capsule) 25 mg PO QAM [facility] Stop: 09/18/18 08:59 Last Admin: 08/21/18 08:54 Dose: 25 mg Documented by: Docusate Sodium (Colace) 100 mg PO BID [facility] Stop: 09/17/18 20:59 Last Admin: 08/21/18 08:54 Dose: 100 mg Documented by: Gabapentin (Neurontin) 600 mg PO BID [facility] Stop: 09/17/18 20:59 Last Admin: 08/21/18 08:53 Dose: 600 mg Documented by: Hydroxyzine HCl (Vistaril) 50 mg PO QPM [facility] Stop: 09/17/18 20:59 Last Admin: 08/20/18 21:06 Dose: 50 mg Documented by: Furosemide 40 mg/ Syringe 4 mls @ 4 mls/min IV ONE [facility] Stop: 09/17/18 18:59 Last Admin: 08/20/18 18:26 Dose: 4 mls/min Documented by: Metoprolol Succinate (Toprol Xl) 200 mg PO QAM [facility] Stop: 09/19/18 08:59 Last Admin: 08/21/18 08:54 Dose: 200 mg Documented by: Nitrofurantoin Macrocrystals (Macrobid) 100 mg PO BID [facility] Stop: 08/24/18 09:01 Ondansetron HCl (Zofran) 4 mg IV Q6H PRN PRN Reason: Nausea Stop: 09/17/18 17:21 Pantoprazole Sodium (Protonix) 40 mg PO DAILY [facility] Stop: 09/18/18 08:59 Last Admin: 08/21/18 08:54 Dose: 40 mg Documented by: Quetiapine Fumarate (Seroquel) 300 mg PO HS [facility] Stop: 09/17/18 20:59 Last Admin: 08/20/18 21:06 Dose: 300 mg Documented by: Quetiapine Fumarate (Seroquel) 50 mg PO DAILY [facility] Stop: 09/18/18 08:59 Last Admin: 08/21/18 08:54 Dose: 50 mg Documented by: Rivaroxaban (Xarelto) 20 mg PO DAILY [facility] Stop: 09/18/18 12:28 Last Admin: 08/21/18 08:51 Dose: Not Given Documented by: Spironolactone (Aldactone) 12.5 mg PO DAILY [facility] Stop: 09/18/18 08:59 Last Admin: 08/21/18 08:54 Dose: 12.5 mg Documented by: Trazodone HCl (Desyrel) 100 mg PO HS [facility] Stop: 09/17/18 20:59 Last Admin: 08/20/18 21:06 Dose: 100 mg Documented by: (1) Diabetes Diabetes mellitus complication status: without complication 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
--- NOTE | 2018-08-21 17:01 | Medical Student Progress Note ---
Date of Service August 21, 2018 Assessment & Plan (1) SOB (shortness of breath): Ms. Gonzales believes her current episode feels different than her previous CHF exacerbations and I'm inclined to agree that other factors may be at play here, especially considering her chest CTA which shows mediastinal LAD and right hilar LAD. She has also had five hospitalizations in the past three months which is concerning. She is JOHNSON positive and there is concern for another process, likely either autoimmune or neoplasm in nature. She may have sarcoidosis given her several risk factors. Video mediastinoscopy with biopsy and possible endobronchial U/S hopefully will elucidate the cause of her SOB. C ontinue to appreciate recommendations from pulmonology and CT surgery. (2) Acute on chronic systolic heart failure: Continue her metoprolol, spironolactone, furosemide as this is likely playing a role in her Sx. Appreciate cardiology recs. Most recent echo shows reduced EF at 15-20%. (3) Permanent atrial fibrillation: Atrial fibrillation continues on telemetry and exam, though rates well controlled. She has biventricular pacemaker and may benefit from pacer interrogation; awaiting cardiology recs to see. She takes rivoroxaban, though it is being held today due to her upcoming procedure. Continue metroprolol for rate control. (4) Pulmonary hypertension: She has been on 2L O2 NC since July and should continue. Right heart cath last month showed severely high pulmonary pressures which may be playing a role in her current respiratory Sx. (5) Pericardial effusion: 2 hospital stays ago she appeared to have pericarditis which resolved with colchicine. Has recent history of pericarditis, continue colchicine. Currently not experiencing any chest discomfort. She has not had rheumatology evaluation but would likely benefit from one, especially given her +JOHNSON and elevated ESR. (6) Diabetes: This is well controlled. Hold metformin. NovoLog sliding scale for glycemic control. Diabetes mellitus type: type 2 Diabetes mellitus [facility] insulin use: without [facility] use Diabetes mellitus complication status: without complication Qualified Code(s): E11.9 - Type 2 diabetes mellitus without complications (7) Pericarditis: Resolved. she has had no pleuritic chest pain. Continue colchicine Pericarditis type: unspecified type Chronicity: acute Qualified Code(s): I30.9 - Acute pericarditis, unspecified (8) Morbid obesity: BMI 36 (9) Chronic respiratory failure with hypoxia: The patient has gone on [id number] oxygen within the last month. Suspect pulmonary hypertension is playing a large role in this. Compensated CHF could be playing a role as well. (10) Schizoaffective disorder: Continue all home medications. This is relatively stable. Schizoaffective disorder type: other Qualified Code(s): F25.8 - Other schizoaffective disorders (11) COPD (chronic obstructive pulmonary disease): There does not appear to be an acute exacerbation. Continue her medications and O2. COPD type: unspecified COPD Qualified Code(s): J44.9 - Chronic obstructive pulmonary disease, unspecified (12) History of pulmonary embolism: Continue Xarelto for prophylaxis, although hold today due to upcoming procedure. (13) DVT prophylaxis: Xarelto, though hold today due to upcoming procedures. Subjective Ms. Gonzales was NPO all morning and has been quite frustrated about not being able to eat. Then when it was discovered she took rivoroxaban yesterday her video mediastinoscopy was cancelled and rescheduled for tomorrow morning, which further frustrated her. Symptomatically, she is feeling a step better today overall, with the MONSALVE, othopnea, and PND still present but somewhat better than before. She has had CHF exacerbations in the past and feels that while these are similar Sx to those episodes, she does not feel quite the same and says she does not "have that fluid overload feeling." She says she tries hard to stay on top of her diet restrictions and activity to stave off CHF exacerbations, and thinks this is at least in part something different. She says that at baseline she does not urinate much, often only once per day, and that has continued her despite being on diuretics. She has had an episode of urinary incontinence, which she says occurred due to sudden urgency this morning. This morning she also had one episode of bowel incontinence due to sudden urgency, which she says happens to her occasionally. Understandably, she finds these Sx quite frustrating. She also wants more tessalon perls, saying she has only gotten once per day here but gets tid at home. Review of Systems All systems reviewed & are unremarkable except as noted in HPI & below Endorses MONSALVE, PND, orthopnea, malaise. Denies urinary frequency and dysuria, syncope, lightheadedness, palpitations, cough, headache, fever, nausea/vomiting, constipation, or diarrhea. Physical Exam Vital Signs (Past 24 Hours): Last Vital Signs Temp 36.6 C 08/21/18 14:56 Pulse 84 08/21/18 14:56 Resp 16 08/21/18 14:56 BP 113/81 08/21/18 14:56 Pulse Ox 98 08/21/18 14:56 Constitutional: well developed, well nourished and + obese; no acute distress and not ill appearing Eyes: PERRL, conjunctivae normal, anicteric sclerae ENMT: external ear and nose normal, oropharynx normal Respiratory: Auscultation: + diminished lung sounds (bases ); no crackles, no rales, no rhonchi and no wheezes Cardiovascular: Rate/Rhythm: regular rate; + abnormal rhythm (irregular) Heart Sounds: normal S1 and normal, physiologic split S2; no murmur and no cardiac rub Extremities: no edema Irregularly irregular rhythm consistent with telemetry Gastrointestinal (Abdomen): normal bowel sounds, soft, nontender, no hepatosplenomegaly Musculoskeletal: Extremities: strength 5/5 throughout No erythema nodosum observed. Neurologic: moves all extremities Psychiatric: A+Ox3, euthymic affect
[2018-08-21] MEDS: FUROSEMIDE 40 MG in SYRINGE 0 ML IV SCH (19:44)
[2018-08-21] MEDS: NITROFURANTOIN MONOHYDRATE 100 MG CAP PO SCH (19:46)
[2018-08-21] MEDS: QUETIAPINE FUMARATE 300 MG TABLET PO SCH (19:48)
[2018-08-21] MEDS: TRAZODONE HCL 100 MG TAB PO SCH (19:49)
[2018-08-22] MEDS ORDERED: ONDANSETRON INJ 2 MG/ML 2 ML VIAL ONE (06:44)
[2018-08-22] MEDS ORDERED: ROCURONIUM BROMIDE 10 MG/ML 5 ML VIAL ONE (06:44)
[2018-08-22] MEDS ORDERED: LIDOCAINE HCL 2% 2 ML VIAL/AMP(20MG/ML) INFIL ONE (06:44)
[2018-08-22] MEDS ORDERED: MIDAZOLAM HCL 1 MG/ML 2ML VIAL ONE (06:44)
[2018-08-22] MEDS ORDERED: PROPOFOL IV EMULSION 10 MG/ML 20 ML VIAL IV ONE (06:44)
[2018-08-22] MEDS: COLCHICINE 0.6 MG TAB PO SCH ×2 (08:12→20:56)
[2018-08-22] MEDS: SPIRONOLACTONE 25 MG TAB PO SCH (08:12)
[2018-08-22] MEDS: ATORVASTATIN 10 MG TAB PO SCH (08:12)
[2018-08-22] MEDS: NITROFURANTOIN MONOHYDRATE 100 MG CAP PO SCH ×2 (08:12→20:56)
[2018-08-22] MEDS: GABAPENTIN 600 MG TAB PO SCH ×2 (08:13→20:57)
[2018-08-22] MEDS: QUETIAPINE FUMARATE 25 MG TABLET PO SCH (08:13)
[2018-08-22] MEDS: METOPROLOL SUCC 50MG EXT REL TAB PO SCH (08:13)
[2018-08-22] MEDS: PANTOprazole 40 MG TAB PO SCH (08:13)
--- NOTE | 2018-08-22 08:23 | History & Physical Bridge Note ---
Date of Service August 22, 2018 History & Physical Bridge Note I have examined the patient, reviewed the History & Physical and in the interval since the performance of the History & Physical I have noted the following changes of clinical significance: no changes noted
[2018-08-22] MEDS ORDERED: BUPIVACAINE 0.5 % 5 MG/1 ML MPF 30ML VIAL ONE (08:45)
[2018-08-22] MEDS ORDERED: MoRPHine SULFATE 2 MG/ML CARP ONE (08:52)
--- NOTE | 2018-08-22 09:20 | Cardiology Progress Note ---
Date of Service August 22, 2018 Assessment & Plan (1) SOB (shortness of breath): Her breathing is slightly improved since admission. She has had several admissions for similar complaints. There has always been some debate about whether all of her symptoms are related to decompensated heart failure. She is currently undergoing an evaluation for primary pulmonary process. (2) Congestive heart failure with cardiomyopathy: She has long-standing congestive heart failure with a severe cardiomyopathy. Several times over the past few months she seems to be euvolemic with relatively low filling pressures measured at right heart catheterization. She continued to have dyspnea during these times suggesting that not all of her symptoms were related to pulmonary vascular congestion. Her lung examination is very benign today. She does not have evidence of peripheral edema. On an outpatient basis she was maintained on bumetanide 2 milligrams daily. I think would be reasonable to give her at least 1 milligram of Bumex orally on a daily basis while she is an inpatient. We will monitor her renal function and outputs closely. She is currently on a beta-julee and spironolactone. Ideally she would be on James inhibition as well. However, her blood pressures have been relatively low and this may not be an opportune time to initiate additional antihypertensive therapy. (3) Pericardial effusion: She is a very small and well localized pericardial effusion. This has been demonstrated repeatedly multiple imaging studies. There is no evidence of hemodynamic compromise. Does not appear to be amenable to percutaneous intervention given its posterior an isolated location. I do not believe she has continued pericarditis. She has been maintained on colchicine presumably at the recommendation of Hematology. No current cardiac indication for continued colchicine use. (4) Permanent atrial fibrillation: Permanent atrial fibrillation. Very large left atrium. In the past her rates have been very difficult to control adequately. In fact, she underwent attempted AV node ablation during her last admission with upgrade of her single- chamber ICD to a biventricular device. In the interim, perhaps with better control of her underlying disease process, her heart rates have improved. On her current dose of metoprolol she seems to be doing well. She will continue on Xarelto indefinitely. Currently being held for procedure today. Subjective This morning she complains of a continued cough and some mild breathing difficulty. Overall her breathing peers to be slightly improved. She has minimal difficulty at rest but with exertion she is dyspneic. Physical Exam Vital Signs (Past 24 Hours): Last Vital Signs Temp 36.4 C L 08/22/18 06:49 Pulse 69 08/22/18 06:49 Resp 18 08/22/18 06:49 BP 96/61 L 08/22/18 06:49 Pulse Ox 100 08/22/18 06:49 Physical Exam: She is alert and oriented x3. Mood affect appear normal. She answered all questions appropriately. HEENT: Sclerae are anicteric. Pupils are equal and reactive to light and accommodation. Extraocular movements were intact. Neuro: Cranial nerves intact Neck: Examination of the submandibular region did not reveal any significant lymphadenopathy. Carotids are palpable bilaterally and free of bruits on auscultation. There was no evidence of jugular venous distention. The thyroid was not enlarged. Lungs: Lungs are clear to auscultation bilaterally with slightly reduced breath sounds in the right base. There are no rales wheezes or rhonchi. She has normal respiratory effort without use of accessory muscles. There is normal pulmonary excursion. Cardiac: The rhythm was irregular. S1 and S2 were normal. There are no murmurs on examination. The PMI was not markedly displaced on palpation. Abdomen: The abdomen was soft and nontender. Extremities: Patient has bilateral radial pulses that are equal in intensity. There is no evidence cyanosis or clubbing. There was no evidence of significant peripheral edema bilaterally. Skin: There are no rashes noted on examination today. Results & Data Laboratory Results Abnormal Lab Results 08/19/18 08/21/18 08/21/18 05:03 09:17 09:17 WBC 7.10 RBC 4.28 Hgb 11.6 L Hct 36.5 L MCV 85.3 MCH 27.1 MCHC 31.8 L RDW Std Deviation 50.1 H RDW Coeff of Logan 16.4 H Plt Count 248 MPV 10.2 Sodium 139 Potassium 3.8 Chloride 103 Carbon Dioxide 31 Anion Gap 6.0 BUN 22 H Creatinine 0.90 Est Cr Clr Drug Dosing 90.7 Est GFR ( Amer) 82.8 Est GFR (Non-Af Amer) 71.5 BUN/Creatinine Ratio 24.4 H Glucose 84 POC Glucose Calcium 8.7 Angiotensin Convert Enz 28 08/21/18 08/22/18 11:14 07:17 WBC RBC Hgb Hct MCV MCH MCHC RDW Std Deviation RDW Coeff of Logan Plt Count MPV Sodium Potassium Chloride Carbon Dioxide Anion Gap BUN Creatinine Est Cr Clr Drug Dosing Est GFR ( Amer) Est GFR (Non-Af Amer) BUN/Creatinine Ratio Glucose POC Glucose 97 82 Calcium Angiotensin Convert Enz ECG Additional Comments: Review of her telemetry reveals atrial fibrillation with normal ventricular response
--- NOTE | 2018-08-22 09:30 | Anesthesiology Consultation ---
Date of Service August 22, 2018 Assessment & Plan Chart Review Chart Review: Acceptable Risk for Surgery Consults Requested none ASA ASA3 Proposed Anesthesia Anesthesia Type: General Risk / Benefits Reviewed With: PT / POA / Parent / Guardian NPO Date Last Intake of Fluids: 08/22/18 Time Last Intake of Fluids: 08:30 Date Last Intake of Solids: 08/21/18 Time Last Intake of Solids: 18:00 History Surgery Operation Date: 08/22/18 09:20 Proposed Procedures p Video Mediastinoscopy - Joe Guillermo MD, FACS Height/Weight Height: 5 ft 8 in Weight: 108.3 kg Allergies Allergy/AdvReac Type Severity Reaction Status Date / Time fentanyl Allergy Mild RASH,ITCHIN Verified 08/22/18 09:15 G Medications Home Medications Medication Instructions Recorded Confirmed Last Taken Xarelto 20 mg PO DAILY 05/31/18 08/18/18 06/27/18 atorvastatin 10 mg PO DAILY 05/31/18 08/18/18 06/27/18 digoxin 0.125 mg PO DAILY 05/31/18 08/18/18 06/27/18 diphenhydramine HCl [Benadryl] 25 mg PO QAM 05/31/18 08/18/18 06/27/18 docusate sodium [Colace] 100 mg PO BID 05/31/18 08/18/18 06/27/18 gabapentin 600 mg PO BID 05/31/18 08/18/18 06/27/18 hydroxyzine pamoate [Vistaril] 50 mg PO QPM 05/31/18 08/18/18 06/27/18 metformin 500 mg PO BID 05/31/18 08/18/18 06/27/18 omeprazole 20 mg PO DAILY 05/31/18 08/18/18 06/27/18 quetiapine [Seroquel] 50 mg PO DAILY 05/31/18 08/18/18 06/27/18 quetiapine [Seroquel] 300 mg PO HS 05/31/18 08/18/18 06/27/18 albuterol sulfate 2 inha INH QID PRN #6.7 gm 06/12/18 08/18/18 06/27/18 colchicine [Colcrys] 0.6 mg PO BID #60 tab 07/06/18 08/18/18 Unknown trazodone 0 mg PO HS 07/31/18 08/18/18 Unknown bumetanide 2 mg PO QAM #30 tab 08/09/18 08/18/18 Unknown metoprolol succinate 100 mg PO QAM #60 tab 08/09/18 08/18/18 Unknown carvedilol 6.25 mg PO BID 08/18/18 08/18/18 Unknown furosemide 40 mg PO BID 08/18/18 08/18/18 Unknown spironolactone 12.5 mg PO DAILY 08/18/18 08/18/18 Unknown Active Medications Generic Name Dose Route Start Last Admin Trade Name Freq PRN Reason Stop Dose Admin Acetaminophen 650 mg 08/18/18 17:22 08/20/18 17:14 Tylenol PO 09/17/18 17:21 650 mg Q4H PRN Administration Pain or Fever Atorvastatin Calcium 10 mg 08/19/18 09:00 08/22/18 08:12 Lipitor PO 09/18/18 08:59 10 mg DAILY VICTOR M Administration Benzonatate 100 mg 08/18/18 21:15 08/21/18 13:57 Tessalon Perle PO 09/18/18 08:59 100 mg TID PRN Administration Cough Colchicine 0.6 mg 08/18/18 21:00 08/22/18 08:12 Colcrys PO 09/17/18 20:59 0.6 mg BID VICTOR M Administration Digoxin 0.125 mg 08/18/18 16:00 08/21/18 15:07 Lanoxin PO 09/17/18 15:59 0.125 mg DAILY@1600 VICTOR M Administration Diphenhydramine HCl 25 mg 08/19/18 09:00 08/22/18 08:12 Benadryl Capsule PO 09/18/18 08:59 25 mg QAM VICTOR M Administration Docusate Sodium 100 mg 08/18/18 21:00 08/21/18 08:54 Colace PO 09/17/18 20:59 100 mg BID VICTOR M Administration Gabapentin 600 mg 08/18/18 21:00 08/22/18 08:13 Neurontin PO 09/17/18 20:59 600 mg BID VICTOR M Administration Hydroxyzine HCl 50 mg 08/18/18 21:00 08/21/18 19:47 Vistaril PO 09/17/18 20:59 50 mg QPM VICTOR M Administration Furosemide 40 mg/ Syringe 4 mls @ 4 mls/min 08/18/18 19:00 08/21/18 19:44 IV 09/17/18 18:59 4 mls/min ONE VICTOR M Administration Metoprolol Succinate 200 mg 08/20/18 09:00 08/22/18 08:13 Toprol Xl PO 09/19/18 08:59 200 mg QAM VICTOR M Administration Nitrofurantoin Macrocrystals 100 mg 08/21/18 21:00 08/22/18 08:12 Macrobid PO 08/24/18 09:01 100 mg BID VICTOR M Administration Pantoprazole Sodium 40 mg 08/19/18 09:00 08/22/18 08:13 Protonix PO 09/18/18 08:59 40 mg DAILY VICTOR M Administration Quetiapine Fumarate 300 mg 08/18/18 21:00 08/21/18 19:48 Seroquel PO 09/17/18 20:59 300 mg HS VICTOR M Administration Quetiapine Fumarate 50 mg 08/19/18 09:00 08/22/18 08:13 Seroquel PO 09/18/18 08:59 50 mg DAILY VICTOR M Administration Rivaroxaban 20 mg 08/19/18 09:00 08/21/18 08:51 Xarelto PO 09/18/18 12:28 Not Given DAILY VICTOR M Spironolactone 12.5 mg 08/19/18 09:00 08/22/18 08:12 Aldactone PO 09/18/18 08:59 12.5 mg DAILY VICTOR M Administration Trazodone HCl 100 mg 08/18/18 21:00 08/21/18 19:49 Desyrel PO 09/17/18 20:59 100 mg HS VICTOR M Administration Past Medical History Medical History Glaucoma Asthma (Chronic) CHF (congestive heart failure) (Chronic) 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% per echo 06/06/18; non-obstructive CAD per cath 2006 HTN (hypertension) (Chronic) PTSD (post-traumatic stress disorder) (Chronic) Atrial fibrillation Diabetes type 2, controlled patient denies having diabetes, does not want further testing even though she is prescribed Metformin GERD (gastroesophageal reflux disease) Morbid obesity Pulmonary embolism 2013 while living in [place] Schizoaffective disorder Ventricular arrhythmia Past Family History Family History Mother , in her 70s Lung cancer from this Congestive heart failure (CHF) Breast cancer Father No problems noted. Other Hypertension Past Surgical History Surgical History Pacemaker (Chronic) AICD (automatic cardioverter/defibrillator) present S/P ORIF (open reduction internal fixation) fracture ankle, left S/P tubal ligation Social History Smoking Status: Former smoker Smoking cigarettes per day: <1 ppd Smoking End Date: quit 02/2016; smoked since teenage years; <1/2 ppd Hx Alcohol Use: No Alcohol type: hard liquor alcohol intake frequency: a few times a month Hx Substance Use: No Physical Exam Vital Signs Last Vital Signs Temp 36.5 C 08/22/18 09:16 Pulse 69 08/22/18 09:16 Resp 18 08/22/18 09:16 BP 118/78 08/22/18 09:16 Pulse Ox 100 08/22/18 09:16 Testing Laboratory Results 08/21/18 09:17 08/21/18 09:17 PT 12.2 Seconds (9.0-12.0) H 08/18/18 10:40 INR 1.2 (0.9-1.1) H 08/18/18 10:40 APTT 27.8 Seconds (21.0-31.0) 08/18/18 10:40 Urine Color [place] 08/18/18 12:45 Urine Appearance Cloudy (Clear) H 08/18/18 12:45 Urine pH 5.0 (4.5-7.5) 08/18/18 12:45 Ur Specific [place] 1.032 (1.000-1.030) H 08/18/18 12:45 Urine Protein 1+ (Negative) H 08/18/18 12:45 Urine Glucose (UA) Negative (Negative) 08/18/18 12:45 Urine Ketones Trace (Negative) H 08/18/18 12:45 Urine Nitrite Positive (Negative) H 08/18/18 12:45 Ur Leukocyte Esterase 1+ (Negative) H 08/18/18 12:45 Urine WBC (Auto) 10-30 /hpf (0-5) H 08/18/18 12:45 Urine RBC (Auto) 5-10 /hpf (0-4) H 08/18/18 12:45 U Hyaline Cast (Auto) 0 /lpf (0-5) 08/18/18 12:45 U Epithel Cells (Auto) >30 /lpf (0-5) H 08/18/18 12:45 Urine Bacteria (Auto) Negative (Negative) 08/18/18 12:45 08/18/18 12:45 Urine Culture - Final Urine,Clean Catch More than three types of organisms present, all moderate counts mixed probable skin ivett. No further identifications or sensitivities to follow. 08/22/18 07:17 POC Glucose 82
[2018-08-22] MEDS ORDERED: ATROPINE SULFATE 0.1 MG/ML 10ML SYR IV PRN (09:34)
[2018-08-22] MEDS ORDERED: ePHEDrine sulfate 50 MG/ML AMP IV PRN (09:34)
[2018-08-22] MEDS ORDERED: HYDROmorphone INJ 2 MG/ML SYR/VIAL IV PRN (09:34)
[2018-08-22] MEDS ORDERED: CEFAZOLIN 250 MG/ML 1 GM VIAL ONE (09:36)
[2018-08-22] MEDS ORDERED: CEFAZOLIN 2000MG 2,000 MG/15 ML SYR IV SCH (10:15)
[2018-08-22] MEDS ORDERED: SURGICEL ABSORB HEMOSTAT 2IN X 14IN TOP ONE (10:31)
--- NOTE | 2018-08-22 10:39 | Post Operative Brief Note ---
Immediate Post Op Note v1 Date of Surgery August 22, 2018 Pre & Post Diagnosis Operation Date: 08/22/18 09:20 Pre-Op Diagnosis: Mediastinal adenopathy Post-Op Diagnosis: Mediastinal adenopathy Procedure Operation Date: 08/22/18 09:20 Actual Procedures p Video Mediastinoscopy - Joe Guillermo MD, FACS Surgeon Joe Guillermo MD, FACS Recycling Coordinator Jojo GARRISON Estimated Blood Loss 10 Findings Consistent with Post-Op Diagnosis
[2018-08-22] MEDS ORDERED: NEOSTIGMINE METHYLSULFATE 5 MG/5 ML SYR ONE (10:40)
[2018-08-22] MEDS ORDERED: GLYCOPYRROLATE 0.2 MG/ML VIAL ONE ×2 (10:40)
--- NOTE | 2018-08-22 11:18 | XRay Report ---
XR chest 1V portable CLINICAL HISTORY: mediastinoscopy postoperative evaluation COMPARISON STUDY: 08/18/2018 FINDINGS: Stable cardia megaly. Progressive components of congestive heart failure. Bipolar cardiac p acemaker/defibrillator in good position. No evidence pneumothorax. IMPRESSION: 1. No evidence for postprocedural pneumothorax. 2. Cardiomegaly with findings of progressive congestive heart failure. The above report was generated using voice recognition software. It may contain grammatical, syntax or spelling errors. Electronically signed by: Osmar Kapoor M.D. 08/22/2018 11:16 AM
--- NOTE | 2018-08-22 11:53 | Anesthesiology Progress Note ---
Date of Service August 22, 2018 Anesthesia Post Procedure Vital Signs Vital Signs: Temp Pulse Pulse Pulse Pulse Resp BP 08/22/18 11:50 79 19 08/22/18 11:40 36.2 C L 91 H 26 H 08/22/18 11:30 93 H 25 H 08/22/18 11:20 96 H 20 08/22/18 11:10 90 24 08/22/18 11:00 36.0 C L 101 H 23 08/22/18 09:16 36.5 C 69 18 118/78 08/22/18 06:49 36.4 C L 69 18 08/22/18 06:21 73 08/22/18 03:50 36.7 C 65 22 08/21/18 23:31 78 22 08/21/18 19:22 36.7 C 88 20 08/21/18 14:56 36.6 C 84 16 08/21/18 14:55 84 BP Pulse Ox 08/22/18 11:50 107/89 99 08/22/18 11:40 117/83 98 08/22/18 11:30 113/88 99 08/22/18 11:20 121/93 97 08/22/18 11:10 122/93 100 08/22/18 11:00 102/78 99 08/22/18 09:16 100 08/22/18 06:49 96/61 L 100 08/22/18 06:21 08/22/18 03:50 101/73 99 08/21/18 23:31 158/63 H 99 08/21/18 19:22 96/80 L 100 08/21/18 14:56 113/81 98 08/21/18 14:55 Pain Intensity Chest: Pain Intensity: 0 Lower Anterior Neck: Pain Intensity: 9 Notes Mental Status: alert / awake / arousable and participated in evaluation Patient Amnestic to Procedure: Yes Nausea / Vomiting: adequately controlled Pain: adequately controlled Airway Patency, RR, SpO2: stable & adequate BP & HR: stable & adequate Hydration State: stable & adequate Anesthetic Complications: no major complications apparent
[2018-08-22] MEDS: ACETAMINOPHEN 1,000 MG/100 ML VIAL IV SCH ×2 (13:01→20:54)
[2018-08-22] MEDS: TRAMADOL HCL 50 MG TABLET PO PRN ×2 (14:27→21:01)
--- NOTE | 2018-08-22 15:31 | Medical Student Progress Note ---
Date of Service August 22, 2018 Assessment & Plan (1) SOB (shortness of breath): Video mediastinoscopy with biopsy today with cultures pending which will hopefully provide evidence regarding the cause of her SOB, though this likely won't come until . Ms. Gonzales believes her current episode feels different than her previous CHF exacerbations and I'm inclined to agree that other factors may be at play here, especially considering her chest CTA which shows mediastinal LAD and right hilar LAD. She has also had five hospitalizations in the past three months which is concerning. She is JOHNSON positive and there is concern for another process, likely either autoimmune or neoplasm in nature. She may have sarcoidosis given her several risk factors. Continue to appreciate recommendations from pulmonology and CT surgery. (2) Acute on chronic systolic heart failure: Continue her metoprolol, spironolactone, furosemide as this is likely playing a role in her Sx. Appreciate cardiology recs. Most recent echo shows reduced EF at 15-20%. She has biventricular pacemaker since early August. (3) Permanent atrial fibrillation: Atrial fibrillation continues on telemetry and exam, though rates well controlled, most recently 66. She has biventricular pacemaker and may benefit from pacer interrogation; awaiting cardiology recs to see. Now that procedure has taken place she can continue on rivoroxaban. Continue metroprolol for rate control. (4) Pulmonary hypertension: She has been on 2L O2 NC since July. Was on 2.5L and 3L at points over the past 24 hours, now back down to 2L NC. She has had good sats during this time, most recently 99%. Use NC to keep above 90%. Right heart cath last month showed severely high pulmonary pressures which may be playing a role in her current respiratory Sx. (5) Pericardial effusion: Two hospital stays ago she appeared to have pericarditis which resolved with colchicine. Continue colchicine. Currently not experiencing any chest discomfort aside from with coughing. She has not had rheumatology evaluation but would likely benefit from one, especially given her +JOHNSON and elevated ESR. Possible sarcoidosis, pending Bx cultures. (6) Diabetes: Pt says she is on metformin from her psychiatrist to prevent metabolic syndrome associated with her quetiapine; she says she does not have DMII. Diabetes mellitus type: type 2 Diabetes mellitus intermediate accountant insulin use: without nursing home use Diabetes mellitus complication status: without complication Qualified Code(s): E11.9 - Type 2 diabetes mellitus without complications (7) Pericarditis: Resolved. She has had no pleuritic chest pain, only pain with dry cough. Continue colchicine due to pericarditis episode a few months ago. Pericarditis type: unspecified type Chronicity: acute Qualified Code(s): I30.9 - Acute pericarditis, unspecified (8) Morbid obesity: BMI 36 (9) Chronic respiratory failure with hypoxia: The patient has gone on [id number]-[id number] oxygen within the last month, mostly 2L NC. Suspect pulmonary hypertension is playing a large role in this. Compensated CHF could be playing a role as well. (10) Schizoaffective disorder: Continue all home medications. This is relatively stable. Schizoaffective disorder type: other Qualified Code(s): F25.8 - Other schizoaffective disorders (11) COPD (chronic obstructive pulmonary disease): There does not appear to be an acute exacerbation. Continue her medications and O2. COPD type: unspecified COPD Qualified Code(s): J44.9 - Chronic obstructive pulmonary disease, unspecified (12) History of pulmonary embolism: Continue rivoroxaban for prophylaxis. (13) DVT prophylaxis: Continue rivoroxaban. Subjective Mrs. Gonzales had her video mediastinoscopy this morning with Dr. Guillermo and is now back in bed post-op. She is feeling very tired and dozed off twice as we talked. She says the surgical site on her anterior neck hurts with pain radiating down to her sternum. She has been using the commode today instead of the toilet in an effort to make it in time re: her urinary urgency, and this strategy has been working as there have been no accidents since yesterday morning. She says she is breathing okay today, but still having pain in her chest with breathing. Review of Systems Endorses pain in her neck and sternum, chest pain present only with cough, and MONSALVE. She denied urinary urgency and dysuria, arthralgia, nausea, vomiting, and diarrhea. Physical Exam Vital Signs (Past 24 Hours): Last Vital Signs Temp 36.6 C 08/22/18 15:07 Pulse 66 08/22/18 15:07 Resp 16 08/22/18 15:07 BP 106/70 08/22/18 15:07 Pulse Ox 99 08/22/18 15:07 Constitutional: WD/WN, vitals as above + obese; no acute distress Eyes: PERRL, conjunctivae normal, anicteric sclerae ENMT: external ear and nose normal, oropharynx normal Respiratory: Auscultation: + diminished lung sounds (bases ); no crackles, no rales, no rhonchi and no wheezes Cardiovascular: Rate/Rhythm: regular rate; + abnormal rhythm (irregular) Heart Sounds: normal S1 and normal, physiologic split S2; no murmur and no cardiac rub Extremities: no edema Gastrointestinal (Abdomen): normal bowel sounds, soft, nontender, no hepatosplenomegaly Skin: no rashes, warm and dry Neurologic: moves all extremities Psychiatric: A+Ox3, euthymic affect
--- NOTE | 2018-08-22 15:37 | Hospitalist Progress Note ---
Date of Service August 22, 2018 Assessment & Plan (1) SOB (shortness of breath): Her dyspnea may be multifactorial in origin: CHF, a primary pulmonary process, pulmonary hypertension, deconditioning. Prior heart catheterization has not revealed any coronary artery disease. Will continue with furosemide for now, may consider transitioning to bumex as this has good oral bioavailablity. The hilar and mediastinal lymphadenopathy is concerning. There has been concern about autoimmune disease given her positive JOHNSON. Consulted Pulmonary, who then consulted Thoracic surgery. Concern that pulmonary hypertension may be playing a role. mediastinoscopy on 08/22, biopsies of lymph nodes, results will be pending, hoping it will give a diagnosis (2) Acute on chronic systolic heart failure: Continue beta-julee. Continue Aldactone. Of note, the patient is taking metoprolol not carvedilol. She is also taking Bumex not Lasix. Formal cardiology consultation was requested with Dr. Christensen. Increased toprol to 200 mg in AM starting on 08/20. Gave an additonal dose of toprol on 08/19. Most recent echo showed severely reduced ejection fraction at 15-20%. This is nonischemic in origin. had dual chamber pacemaker two weeks ago with hopes to improve function examines euvolemic, she has been staying on top of her weights, compliant with medications suggests that this could be non-cardiac issue continues to be euvolemic today, breathing well, no rales on exam, no edema cardiology following (3) Permanent atrial fibrillation: A. fib rates are well controlled AV jennifer ablation was attempted during the prior stay without success. She has a by Bi-V pacemaker in place. She takes chronic Xarelto for anticoagulation, on hold for biopsy Continue metoprolol can resume Xarelto tomorrow per thoracic (4) Pulmonary hypertension: Right heart catheterization within the last month revealed severely high pulmonary pressures. likely that pulmonary hypertension is contributing to symptoms Continue nasal cannula oxygen. (5) Pericardial effusion: There has been concern that this is autoimmune in nature. She has had an elevated JOHNSON titer as well as sed rate. She takes colchicine twice daily per recommendations from rheumatology. He has yet to have formal rheumatologic evaluation in the clinic. In light of lymphadenopathy I have sent an NIKO level for sarcoid. 2 hospital stays ago she appeared to have pericarditis which resolved with colchicine. (6) Diabetes: This is well controlled. Hold metformin. NovoLog sliding scale for glycemic control. patient says she does not have DM, uses Metformin for weight control (7) Pericarditis: Resolved. she has had no pleuritic chest pain. Continue colchicine (8) Morbid obesity: BMI 36 (9) Chronic respiratory failure with hypoxia: The patient has gone on tqvjrl-nco-wincu oxygen within the last month. Suspect pulmonary hypertension is playing a large role in this. Compensated CHF could be playing a role as well. on 3 L currently, no distress (10) Schizoaffective disorder: Continue all home medications. This is relatively stable. (11) COPD (chronic obstructive pulmonary disease): There does not appear to be an acute exacerbation. (12) History of pulmonary embolism: Continue Xarelto for prophylaxis. (13) DVT prophylaxis: hold Xarelto Subjective patient seen after her endoscopic bronchial US and biopsy having some pain with inspiration and coughing but otherwise doing well still having some increased urinary frequency and urgency but no incontinence today she feels weak overall reviewed labs, stable discussed with Dr. Guillermo discussed with Dr. Pelayo Review of Systems All systems reviewed & are unremarkable except as noted in HPI & below Respiratory: + cough and + pain with cough Cardiovascular: + chest pain (from the procedure) Physical Exam Vital Signs (Past 24 Hours): Last Vital Signs Temp 36.6 C 08/22/18 15:07 Pulse 66 08/22/18 15:07 Resp 16 08/22/18 15:07 BP 106/70 08/22/18 15:07 Pulse Ox 99 08/22/18 15:07 Constitutional: WD/WN, vitals as above Eyes: PERRL, conjunctivae normal, anicteric sclerae ENMT: external ear and nose normal, oropharynx normal Neck: trachea midline, no thyromegaly Respiratory: normal respiratory effort, lungs clear to auscultation Cardiovascular: Rate/Rhythm: regular rate; + abnormal rhythm (irregular irregular) Heart Sounds: normal S1 and normal S2 Vessels: no JVD Extremities: no edema Gastrointestinal (Abdomen): normal bowel sounds, soft, nontender, no hepatosplenomegaly Musculoskeletal: no cyanosis or clubbing, extremities motor strength 5/5 Skin: no rashes, warm and dry Neurologic: patellar DTR's 2+ bilat, sensation intact and PERRL, EOMI, accommodation nl, no face palsy, no dysarthria Psychiatric: A+Ox3, euthymic affect Lymphatic: no cervical or axillary lymphadenopathy Results & Data Laboratory Results Laboratory Results - last 24 hr 08/19/18 08/22/18 08/22/18 05:03 07:17 09:29 POC Glucose 82 94 Angiotensin Convert Enz 28 08/22/18 12:09 POC Glucose 94 Angiotensin Convert Enz Medications Administered Current Inpatient Medications Albuterol (Ventolin Hfa) 2 puffs INH QID PRN PRN Reason: shortness of breath or wheezin Stop: 09/17/18 17:21 Atorvastatin Calcium (Lipitor) 10 mg PO DAILY VICTOR M Stop: 09/18/18 08:59 Last Admin: 08/22/18 08:12 Dose: 10 mg Documented by: Benzonatate (Tessalon Perle) 100 mg PO TID PRN PRN Reason: Cough Stop: 09/18/18 08:59 Last Admin: 08/21/18 13:57 Dose: 100 mg Documented by: Colchicine (Colcrys) 0.6 mg PO BID VICTOR M Stop: 09/17/18 20:59 Last Admin: 08/22/18 08:12 Dose: 0.6 mg Documented by: Digoxin (Lanoxin) 0.125 mg PO DAILY@1600 VICTOR M Stop: 09/17/18 15:59 Last Admin: 08/21/18 15:07 Dose: 0.125 mg Documented by: Diphenhydramine HCl (Benadryl Capsule) 25 mg PO QAM VICTOR M Stop: 09/18/18 08:59 Last Admin: 08/22/18 08:12 Dose: 25 mg Documented by: Docusate Sodium (Colace) 100 mg PO BID VICTOR M Stop: 09/17/18 20:59 Last Admin: 08/21/18 08:54 Dose: 100 mg Documented by: Gabapentin (Neurontin) 600 mg PO BID VICTOR M Stop: 09/17/18 20:59 Last Admin: 08/22/18 08:13 Dose: 600 mg Documented by: Hydroxyzine HCl (Vistaril) 50 mg PO QPM VICTOR M Stop: 09/17/18 20:59 Last Admin: 08/21/18 19:47 Dose: 50 mg Documented by: Furosemide 40 mg/ Syringe 4 mls @ 4 mls/min IV ONE VICTOR M Stop: 09/17/18 18:59 Last Admin: 08/21/18 19:44 Dose: 4 mls/min Documented by: Acetaminophen (Ofirmev) 1,000 mg in 100 mls @ 400 mls/hr IV Q8H VICTOR M Stop: 09/21/18 12:02 Last Infusion: 08/22/18 13:20 Dose: Infused Documented by: Metoprolol Succinate (Toprol Xl) 200 mg PO QAM VICTOR M Stop: 09/19/18 08:59 Last Admin: 08/22/18 08:13 Dose: 200 mg Documented by: Morphine Sulfate (Morphine Sulfate) 2 mg IV Q4H PRN PRN Reason: Pain Stop: 09/05/18 14:58 Morphine Sulfate (Morphine Sulfate) 4 mg IV Q4H PRN PRN Reason: Severe Pain Stop: 09/05/18 14:58 Nitrofurantoin Macrocrystals (Macrobid) 100 mg PO BID [facility] Stop: 08/24/18 09:01 Last Admin: 08/22/18 08:12 Dose: 100 mg Documented by: Ondansetron HCl (Zofran) 4 mg IV Q6H PRN PRN Reason: Nausea Stop: 09/17/18 17:21 Pantoprazole Sodium (Protonix) 40 mg PO DAILY VICTOR M Stop: 09/18/18 08:59 Last Admin: 08/22/18 08:13 Dose: 40 mg Documented by: Quetiapine Fumarate (Seroquel) 300 mg PO HS [facility] Stop: 09/17/18 20:59 Last Admin: 08/21/18 19:48 Dose: 300 mg Documented by: Quetiapine Fumarate (Seroquel) 50 mg PO DAILY VICTOR M Stop: 09/18/18 08:59 Last Admin: 08/22/18 08:13 Dose: 50 mg Documented by: Rivaroxaban (Xarelto) 20 mg PO DAILY [facility] Stop: 09/18/18 12:28 Last Admin: 08/21/18 08:51 Dose: Not Given Documented by: Spironolactone (Aldactone) 12.5 mg PO DAILY [facility] Stop: 09/18/18 08:59 Last Admin: 08/22/18 08:12 Dose: 12.5 mg Documented by: Tramadol HCl (Ultram) 50 mg PO Q4H PRN PRN Reason: Pain Stop: 09/21/18 12:02 Last Admin: 08/22/18 14:27 Dose: 50 mg Documented by: Trazodone HCl (Desyrel) 100 mg PO HS VICTOR M Stop: 09/17/18 20:59 Last Admin: 08/21/18 19:49 Dose: 100 mg Documented by: (1) Diabetes Diabetes mellitus complication status: without complication Diabetes mellitus last cleaner insulin use: without usp use Diabetes mellitus type: type 2 Qualified Code(s): E11.9 - Type 2 diabetes mellitus without complications (2) Pericarditis Chronicity: acute Pericarditis type: unspecified type Qualified Code(s): I30.9 - Acute pericarditis, unspecified (3) Schizoaffective disorder Schizoaffective disorder type: other Qualified Code(s): F25.8 - Other schizoaffective disorders (4) COPD (chronic obstructive pulmonary disease) COPD type: unspecified COPD Qualified Code(s): J44.9 - Chronic obstructive pulmonary disease, unspecified
[2018-08-22] MEDS: DIGOXIN 0.125 MG TAB PO SCH (16:19)
[2018-08-22] MEDS: MoRPHine SULFATE 4 MG/ML 1 ML CARP\\VIAL IV PRN (18:46)
[2018-08-22] MEDS: FUROSEMIDE 40 MG in SYRINGE 0 ML IV SCH (18:49)
[2018-08-22] MEDS: QUETIAPINE FUMARATE 300 MG TABLET PO SCH (20:55)
[2018-08-22] MEDS: TRAZODONE HCL 100 MG TAB PO SCH (20:56)
[2018-08-22] MEDS: DOCUSATE SODIUM 100 MG CAP PO SCH (20:56)
--- NOTE | 2018-08-22 22:02 | Operative Report ---
DATE OF OPERATION: 08/22/2018 PREOPERATIVE DIAGNOSES: 1. Mediastinal adenopathy. 2. Cardiomyopathy. POSTOPERATIVE DIAGNOSES: 1. Mediastinal adenopathy. 2. Cardiomyopathy. PROCEDURE: Video mediastinoscopy. SURGEON: Joe Guillermo MD MAINTENANCE TEAM MEMBER: BLADIMIR Huggins (Mr. Haile was present for the entire case and was instrumental in assisting in this case and closed the incisions at the end). ANESTHESIA: General anesthesia, endotracheal intubation. INDICATION FOR PROCEDURE: Grazyna Gonzales is a 57-year-old female who has chronic atrial fibrillation with pulmonary hypertension, who has a progressive mediastinal adenopathy. I was asked to evaluate her for a biopsy. We discussed endobronchial ultrasound, but I did not think this would give us any answer. She has lost weight and I am concerned she may have a lymphoma. She had her level IV node, in particular was rather large. On 08/21/2018, the patient underwent uncomplicated video mediastinoscopy. I biopsied right level II, right level IV and level VII lymph node. These did not appear to be grossly abnormal and the frozen section showed reactive nodes. We have to wait for the final results to call this. DESCRIPTION OF PROCEDURE: The patient WAS brought to operating room, laid in supine position. General anesthesia induced. Endotracheal intubation was performed without difficulty. After appropriate timeout had been called, the patient was prepped and draped in usual sterile fashion. Prophylactic antibiotics given. Incision made one fingerbreadth above the sternal notch. The patient has longstanding left-sided ICD and has significant collateral veins. These were rather enlarged around, but we really did not get into this. Going down his we carefully dissected the midline down to the pretracheal plane, which was developed bluntly. A video mediastinoscope was placed without difficulty. We were right on top of the trachea. We then dissected this out bluntly and a larger level IV node was noted. We removed this almost in its entirety. It was a soft acanthotic node. I identified the azygos vein. Level VII node was harder and a bit more wide and we biopsied this multiple times also. We really did not get much in the way of bleeding here. Upon pulling out, I biopsied level II node also. I did place a small piece of Surgicel along the subcarinal area. I then slowly withdrew the video mediastinoscope, saw no further bleeding. Frozen section showed reactive node. No evidence of malignancy; however, we sent off a good deal of specimen here from 3 different lymph node stations. A 0 Vicryl was used to close the strap muscles in the direction in the midline and then 4-0 Monocryl was used in running subcuticular fashion to approximate the wound edges. We did use the bupivacaine to inject around the incision at the end. A 4-0 Monocryl was used in running subcuticular fashion to approximate the wound edges. Antimicrobial dressings were placed. She tolerated it well without difficulty in the OR. I attest to the content of the Intraoperative Record and any orders documented therein. Any exception s are noted below.
[2018-08-23 05:43] LABS: Basophils # (auto) 0.04 K/uL (0-0.2); Basophils % (auto) 0.4 %; Eosinophils # (auto) 0.14 K/uL (0-0.5); Eosinophils % (auto) 1.5 %; Hematocrit (blood only) 37.1 % (37-47); Hemoglobin 11.8 g/dL (12.0-16.0); Immature Granulocytes # (auto) 0.02 K/uL (0.00-0.02); Immature Granulocytes % (auto) 0.2 %; Lymphocytes # (auto) 2.57 K/uL (1.2-3.4); Lymphocytes % (auto) 28.4 %; Mean Corpuscular Hgb Conc 31.8 g/dL (32-36); Mean Corpuscular Volume 86.5 fL (80-100); Neutrophils # (auto) 5.29 K/uL (1.4-6.5); Neutrophils % (auto) 58.5 %; Platelet Count 245 K/uL (130-400); RDW Coefficient of Variation 16.3 % (11.5-14.5); RDW Standard Deviation 51.1 fL (36.4-46.3); Red Blood Count 4.29 M/uL (4.2-5.4); White Blood Count 9.06 K/uL (4.8-10.8)
[2018-08-23] MEDS: ACETAMINOPHEN 1,000 MG/100 ML VIAL IV SCH ×3 (06:01→21:05)
[2018-08-23 06:15] LABS: BUN Creatinine Ratio 23.6 (10-20); Calcium 8.7 mg/dl (8.5-10.1); Creatinine Clr Calc Pharmacy 69.8 ml/min; Est GFR (Non-African American) 52.6
[2018-08-23] MEDS: METOPROLOL SUCC 50MG EXT REL TAB PO SCH (08:33)
[2018-08-23] MEDS: GABAPENTIN 600 MG TAB PO SCH ×2 (08:33→21:13)
[2018-08-23] MEDS: DOCUSATE SODIUM 100 MG CAP PO SCH ×2 (08:33→21:07)
[2018-08-23] MEDS: PANTOprazole 40 MG TAB PO SCH (08:33)
[2018-08-23] MEDS: COLCHICINE 0.6 MG TAB PO SCH ×2 (08:33→21:11)
[2018-08-23] MEDS: ATORVASTATIN 10 MG TAB PO SCH (08:34)
[2018-08-23] MEDS: SPIRONOLACTONE 25 MG TAB PO SCH (08:34)
[2018-08-23] MEDS: NITROFURANTOIN MONOHYDRATE 100 MG CAP PO SCH ×2 (08:34→21:13)
[2018-08-23] MEDS: QUETIAPINE FUMARATE 25 MG TABLET PO SCH (08:42)
[2018-08-23] MEDS: TRAMADOL HCL 50 MG TABLET PO PRN (09:57)
[2018-08-23] MEDS: BENZONATATE 100 MG CAPSULE PO PRN (11:20)
--- NOTE | 2018-08-23 16:30 | Hospitalist Progress Note ---
Date of Service August 23, 2018 Assessment & Plan (1) SOB (shortness of breath): Her dyspnea may be multifactorial in origin: CHF, a primary pulmonary process, pulmonary hypertension, deconditioning. Prior heart catheterization has not revealed any coronary artery disease. will start Bumex 1mg PO daily tomorrow The hilar and mediastinal lymphadenopathy is concerning. There has been concern about autoimmune disease given her positive JOHNSON. Consulted Pulmonary, who then consulted Thoracic surgery. Concern that pulmonary hypertension may be playing a role. mediastinoscopy on 08/22, biopsies of lymph nodes no evidence of malignancy shows follicular hyperplasia, anthrocosis will discuss with pulmonology and thoracic surgery tomorrow (2) Acute on chronic systolic heart failure: Continue beta-julee. Continue Aldactone. Of note, the patient is taking metoprolol not carvedilol Formal cardiology consultation was requested with Dr. Christensen. Increased toprol to 200 mg in AM starting on 08/20. Gave an additonal dose of toprol on 08/19. Most recent echo showed severely reduced ejection fraction at 15-20%. This is nonischemic in origin. had dual chamber pacemaker two weeks ago with hopes to improve function examines euvolemic, she has been staying on top of her weights, compliant with medications suggests that this could be non-cardiac issue continues to be euvolemic today, breathing well, no rales on exam, no edema cardiology following Bumex 1mg PO daily, was previously on 2mg daily (3) Permanent atrial fibrillation: A. fib rates are well controlled AV jennifer ablation was attempted during the prior stay without success. She has a by Bi-V pacemaker in place. She takes chronic Xarelto for anticoagulation, on hold for biopsy Continue metoprolol resume Xarelto (4) Pulmonary hypertension: Right heart catheterization within the last month revealed severely high pulmonary pressures. likely that pulmonary hypertension is contributing to symptoms Continue nasal cannula oxygen. (5) Pericardial effusion: There has been concern that this is autoimmune in nature. She has had an elevated JOHNSON titer as well as sed rate. She takes colchicine twice daily per recommendations from rheumatology. He has yet to have formal rheumatologic evaluation in the clinic. In light of lymphadenopathy I have sent an NIKO level for sarcoid. 2 hospital stays ago she appeared to have pericarditis which resolved with colchicine. (6) Diabetes: This is well controlled. Hold metformin. NovoLog sliding scale for glycemic control. patient says she does not have DM, uses Metformin for weight control (7) Pericarditis: Resolved. she has had no pleuritic chest pain. Continue colchicine (8) Morbid obesity: BMI 36 (9) Chronic respiratory failure with hypoxia: The patient has gone on [id number] oxygen within the last month. Suspect pulmonary hypertension is playing a large role in this. Compensated CHF could be playing a role as well. on 3 L currently, no distress (10) Schizoaffective disorder: Continue all home medications. This is relatively stable. (11) COPD (chronic obstructive pulmonary disease): There does not appear to be an acute exacerbation. (12) History of pulmonary embolism: Continue Xarelto for prophylaxis. (13) DVT prophylaxis: Xarelto Subjective patient feeling fine today, minimal pain in her chest breathing is stable reviewed labs, stable will resume Xarelto on monitor she is in afib, rates stable no fungae or AFB seen on initial smear pathology shows anthrocosis, follicular hyperplasia no tumor seen in all three biopsies Review of Systems All systems reviewed & are unremarkable except as noted in HPI & below Physical Exam Vital Signs (Past 24 Hours): Last Vital Signs Temp 36.6 C 08/23/18 15:04 Pulse 92 H 08/23/18 15:04 Resp 18 08/23/18 15:04 BP 118/88 08/23/18 15:04 Pulse Ox 96 08/23/18 15:04 Constitutional: WD/WN, vitals as above Eyes: PERRL, conjunctivae normal, anicteric sclerae ENMT: external ear and nose normal, oropharynx normal Neck: trachea midline, no thyromegaly Respiratory: normal respiratory effort, lungs clear to auscultation Cardiovascular: Rate/Rhythm: regular rate; + abnormal rhythm (irregular irregular) Heart Sounds: normal S1 and normal S2 Vessels: no JVD Extremities: no edema Gastrointestinal (Abdomen): normal bowel sounds, soft, nontender, no hepatosplenomegaly Musculoskeletal: no cyanosis or clubbing, extremities motor strength 5/5 Skin: no rashes, warm and dry Neurologic: patellar DTR's 2+ bilat, sensation intact and PERRL, EOMI, accommodation nl, no face palsy, no dysarthria Psychiatric: A+Ox3, euthymic affect Lymphatic: no cervical or axillary lymphadenopathy Results & Data Laboratory Results Laboratory Results - last 24 hr Microbiology 08/22/18 10:37 Mediastinal Gram Stain - Final 08/22/18 10:37 Mediastinal Aerobic and Anaerobic Culture - Preliminary No growth to date. 08/22/18 10:37 Mediastinal Acid Fast Bacilli Smear - Final 08/22/18 10:37 Mediastinal Fungal Smear - Final 08/18/18 12:45 Urine,Clean Catch Urine Culture - Final More than three types of organisms present, all moderate counts mixed probable skin ivett. No further identifications or sensitivities to follow. 08/22/18 08/22/18 08/23/18 16:42 20:16 05:12 WBC 9.06 RBC 4.29 Hgb 11.8 L Hct 37.1 MCV 86.5 MCH 27.5 MCHC 31.8 L RDW Std Deviation 51.1 H RDW Coeff of Logan 16.3 H Plt Count 245 MPV 10.0 Immature Gran % (Auto) 0.2 Neut % (Auto) 58.5 Lymph % (Auto) 28.4 [place] % (Auto) 11.0 Eos % (Auto) 1.5 Baso % (Auto) 0.4 Immature Gran # (Auto) 0.02 Neut # (Auto) 5.29 Lymph # (Auto) 2.57 [place] # (Auto) 1.00 H Eos # (Auto) 0.14 Baso # (Auto) 0.04 Sodium Potassium Chloride Carbon Dioxide Anion Gap BUN Creatinine Est Cr Clr Drug Dosing Est GFR ( Amer) Est GFR (Non-Af Amer) BUN/Creatinine Ratio Glucose POC Glucose 108 H 108 H Calcium 08/23/18 05:12 WBC RBC Hgb Hct MCV MCH MCHC RDW Std Deviation RDW Coeff of [place] Plt Count MPV Immature Gran % (Auto) Neut % (Auto) Lymph % (Auto) [place] % (Auto) Eos % (Auto) Baso % (Auto) Immature Gran # (Auto) Neut # (Auto) Lymph # (Auto) [place] # (Auto) Eos # (Auto) Baso # (Auto) Sodium 138 Potassium 4.0 Chloride 100 Carbon Dioxide 32 Anion Gap 6.0 BUN 27 H Creatinine 1.16 Est Cr Clr Drug Dosing 69.8 Est GFR ( Amer) 61.0 Est GFR (Non-Af Amer) 52.6 BUN/Creatinine Ratio 23.6 H Glucose 85 POC Glucose Calcium 8.7 Medications Administered Current Inpatient Medications Albuterol (Ventolin Hfa) 2 puffs INH QID PRN PRN Reason: shortness of breath or wheezin Stop: 09/17/18 17:21 Atorvastatin Calcium (Lipitor) 10 mg PO DAILY VICTOR M Stop: 09/18/18 08:59 Last Admin: 08/23/18 08:34 Dose: 10 mg Documented by: Benzonatate (Tessalon Perle) 100 mg PO TID PRN PRN Reason: Cough Stop: 09/18/18 08:59 Last Admin: 08/23/18 11:20 Dose: 100 mg Documented by: Colchicine (Colcrys) 0.6 mg PO BID VICTOR M Stop: 09/17/18 20:59 Last Admin: 08/23/18 08:33 Dose: 0.6 mg Documented by: Digoxin (Lanoxin) 0.125 mg PO DAILY@1600 [facility] Stop: 09/17/18 15:59 Last Admin: 08/22/18 16:19 Dose: 0.125 mg Documented by: Diphenhydramine HCl (Benadryl Capsule) 25 mg PO QAM [facility] M Stop: 09/18/18 08:59 Last Admin: 08/23/18 08:34 Dose: Not Given Documented by: Docusate Sodium (Colace) 100 mg PO BID [facility] M Stop: 09/17/18 20:59 Last Admin: 08/23/18 08:33 Dose: 100 mg Documented by: Gabapentin (Neurontin) 600 mg PO BID [facility] M Stop: 09/17/18 20:59 Last Admin: 08/23/18 08:33 Dose: 600 mg Documented by: Hydroxyzine HCl (Vistaril) 50 mg PO QPM [facility] M Stop: 09/17/18 20:59 Last Admin: 08/22/18 20:56 Dose: 50 mg Documented by: Furosemide 40 mg/ Syringe 4 mls @ 4 mls/min IV ONE [facility]CTOR M Stop: 09/17/18 18:59 Last Admin: 08/22/18 18:49 Dose: 4 mls/min Documented by: Acetaminophen (Ofirmev) 1,000 mg in 100 mls @ 400 mls/hr IV Q8H [facility] M Stop: 09/21/18 12:02 Last Infusion: 08/23/18 12:36 Dose: Infused Documented by: Metoprolol Succinate (Toprol Xl) 200 mg PO QAM VICTOR M Stop: 09/19/18 08:59 Last Admin: 08/23/18 08:33 Dose: 200 mg Documented by: Morphine Sulfate (Morphine Sulfate) 2 mg IV Q4H PRN PRN Reason: Pain Stop: 09/05/18 14:58 Morphine Sulfate (Morphine Sulfate) 4 mg IV Q4H PRN PRN Reason: Severe Pain Stop: 09/05/18 14:58 Last Admin: 08/22/18 18:46 Dose: 4 mg Documented by: Nitrofurantoin Macrocrystals (Macrobid) 100 mg PO BID [facility] Stop: 08/24/18 09:01 Last Admin: 08/23/18 08:34 Dose: 100 mg Documented by: Ondansetron HCl (Zofran) 4 mg IV Q6H PRN PRN Reason: Nausea Stop: 09/17/18 17:21 Pantoprazole Sodium (Protonix) 40 mg PO DAILY [facility] Stop: 09/18/18 08:59 Last Admin: 08/23/18 08:33 Dose: 40 mg Documented by: Quetiapine Fumarate (Seroquel) 300 mg PO [facility] Stop: 09/17/18 20:59 Last Admin: 08/22/18 20:55 Dose: 300 mg Documented by: Quetiapine Fumarate (Seroquel) 50 mg PO DAILY [facility] Stop: 09/18/18 08:59 Last Admin: 08/23/18 08:42 Dose: Not Given Documented by: Rivaroxaban (Xarelto) 20 mg PO DAILY [facility] Stop: 09/18/18 12:28 Last Admin: 08/21/18 08:51 Dose: Not Given Documented by: Spironolactone (Aldactone) 12.5 mg PO DAILY [facility] Stop: 09/18/18 08:59 Last Admin: 08/23/18 08:34 Dose: 12.5 mg Documented by: Tramadol HCl (Ultram) 50 mg PO Q4H PRN PRN Reason: Pain Stop: 09/21/18 12:02 Last Admin: 08/23/18 09:57 Dose: 50 mg Documented by: Trazodone HCl (Desyrel) 100 mg PO HS [facility] Stop: 09/17/18 20:59 Last Admin: 08/22/18 20:56 Dose: 100 mg Documented by: (1) Diabetes Diabetes mellitus complication status: without complication Diabetes mellitus penitentiary insulin use: without penitentiary use Diabetes mellitus type: type 2 Qualified Code(s): E11.9 - Type 2 diabetes mellitus without complications (2) Pericarditis Chronicity: acute Pericarditis type: unspecified type Qualified Code(s): I30.9 - Acute pericarditis, unspecified (3) Schizoaffective disorder Schizoaffective disorder type: other Qualified Code(s): F25.8 - Other schizoaffective disorders (4) COPD (chronic obstructive pulmonary disease) COPD type: unspecified COPD Qualified Code(s): J44.9 - Chronic obstructive pulmonary disease, unspecified
--- NOTE | 2018-08-23 16:37 | Progress Note ---
DATE: 08/23/2018 Ms. Gonzales was tolerated her mediastinoscopy quite well yesterday. The frozen section showed no evidence of malignancy. All of her smears and cultures are negative to date. She has no hoarseness. Her incision is clean. I am curious to see what our final pathology is.
[2018-08-23] MEDS: DIGOXIN 0.125 MG TAB PO SCH (17:09)
[2018-08-23] MEDS: MoRPHine SULFATE 2 MG/ML CARP IV PRN (17:11)
--- NOTE | 2018-08-23 17:53 | Cardiology Progress Note ---
Date of Service August 23, 2018 Assessment & Plan (1) SOB (shortness of breath): Her breathing is slightly improved since admission. She has had several admissions for similar complaints. There has always been some debate about whether all of her symptoms are related to decompensated heart failure. She is currently undergoing an evaluation for primary pulmonary process. No abnormal results from her mediastinoscopy so far. (2) Congestive heart failure with cardiomyopathy: She has long-standing congestive heart failure with a severe cardiomyopathy. Several times over the past few months she seems to be euvolemic with relatively low filling pressures measured at right heart catheterization. She continued to have dyspnea during these times suggesting that not all of her symptoms were related to pulmonary vascular congestion. Her lung examination is very benign today. She does not have evidence of peripheral edema. On an outpatient basis she was maintained on bumetanide 2 milligrams daily. I think would be reasonable to give her at least 1 milligram of Bumex orally on a daily basis while she is an inpatient. We will monitor her renal function and outputs closely. She is currently on a beta-julee and spironolactone. Ideally she would be on James inhibition as well. However, her blood pressures have been relatively low and this may not be an opportune time to initiate additional antihypertensive therapy. (3) Pericardial effusion: She is a very small and well localized pericardial effusion. This has been demonstrated repeatedly multiple imaging studies. There is no evidence of hemodynamic compromise. Does not appear to be amenable to percutaneous intervention given its posterior an isolated location. I do not believe she has continued pericarditis. She has been maintained on colchicine presumably at the recommendation of Hematology. No current cardiac indication for continued colchicine use. (4) Permanent atrial fibrillation: Permanent atrial fibrillation. Very large left atrium. In the past her rates have been very difficult to control adequately. In fact, she underwent attempted AV node ablation during her last admission with upgrade of her single- chamber ICD to a biventricular device. In the interim, perhaps with better control of her underlying disease process, her heart rates have improved. On her current dose of metoprolol she seems to be doing well. Xarelto has been restarted Subjective This morning she c/o of some pain with coughing. Some pain with deep inspiration. No breathing difficulty at rest. Physical Exam Vital Signs (Past 24 Hours): Last Vital Signs Temp 36.6 C 08/23/18 15:04 Pulse 85 03/20/19 17:09 Resp 18 08/23/18 15:04 BP 118/88 08/23/18 15:04 Pulse Ox 96 08/23/18 15:04 Physical Exam: Alert. Oriented. Lungs: Clear. Normal respiratory effort. Normal excursion Cardiac: regular rhythm without murmur Ext: No edema Results & Data Laboratory Results Abnormal Lab Results 08/22/18 08/23/18 08/23/18 20:16 05:12 05:12 WBC 9.06 RBC 4.29 Hgb 11.8 L Hct 37.1 MCV 86.5 MCH 27.5 MCHC 31.8 L RDW Std Deviation 51.1 H RDW Coeff of [place] 16.3 H Plt Count 245 MPV 10.0 Immature Gran % (Auto) 0.2 Neut % (Auto) 58.5 Lymph % (Auto) 28.4 [place] % (Auto) 11.0 Eos % (Auto) 1.5 Baso % (Auto) 0.4 Immature Gran # (Auto) 0.02 Neut # (Auto) 5.29 Lymph # (Auto) 2.57 [place] # (Auto) 1.00 H Eos # (Auto) 0.14 Baso # (Auto) 0.04 Sodium 138 Potassium 4.0 Chloride 100 Carbon Dioxide 32 Anion Gap 6.0 BUN 27 H Creatinine 1.16 Est Cr Clr Drug Dosing 69.8 Est GFR ( Amer) 61.0 Est GFR (Non-Af Amer) 52.6 BUN/Creatinine Ratio 23.6 H Glucose 85 POC Glucose 108 H Calcium 8.7
[2018-08-23] MEDS: TRAZODONE HCL 100 MG TAB PO SCH (21:12)
[2018-08-23] MEDS: QUETIAPINE FUMARATE 300 MG TABLET PO SCH (21:13)
[2018-08-24] MEDS: ACETAMINOPHEN 1,000 MG/100 ML VIAL IV SCH ×3 (05:34→20:49)
[2018-08-24] MEDS: NITROFURANTOIN MONOHYDRATE 100 MG CAP PO SCH (09:11)
[2018-08-24] MEDS: BUMETANIDE 1 MG TAB PO SCH (09:11)
[2018-08-24] MEDS: SPIRONOLACTONE 25 MG TAB PO SCH (09:12)
[2018-08-24] MEDS: ATORVASTATIN 10 MG TAB PO SCH (09:12)
[2018-08-24] MEDS: COLCHICINE 0.6 MG TAB PO SCH ×2 (09:13→20:52)
[2018-08-24] MEDS: GABAPENTIN 600 MG TAB PO SCH ×2 (09:14→20:50)
[2018-08-24] MEDS: PANTOprazole 40 MG TAB PO SCH (09:14)
[2018-08-24] MEDS: RIVAROXABAN 20 MG TAB PO SCH (09:14)
[2018-08-24] MEDS: METOPROLOL SUCC 50MG EXT REL TAB PO SCH (09:14)
[2018-08-24] MEDS: DOCUSATE SODIUM 100 MG CAP PO SCH ×2 (09:14→20:50)
[2018-08-24] MEDS: QUETIAPINE FUMARATE 25 MG TABLET PO SCH (09:15)
--- NOTE | 2018-08-24 11:08 | Progress Note ---
DATE: 08/24/2018 The patient was seen today. I removed her dressing and her incision is clean. I reviewed the pathology and it appears that her mediastinal lymph nodes are simply reactive nodes. There was no evidence of malignancy or active infection. At this point, I will sign off. Please call if there are questions. One issue with this patient that should be mentioned, however, is her pericardial effusion. We did discuss this before. Her heart function is terrible; however, if we are concerned that this is compromising her in anyway, we could offer her a pericardial window, although I do not think we are at that point now. I would defer that decision to Dr. Pelayo. NAVYA
--- NOTE | 2018-08-24 15:41 | Hospitalist Progress Note ---
Date of Service August 24, 2018 Assessment & Plan (1) SOB (shortness of breath): Her dyspnea may be multifactorial in origin: CHF, a primary pulmonary process, pulmonary hypertension, deconditioning. Prior heart catheterization has not revealed any coronary artery disease. continue on Bumex 1mg PO daily for heart failure The hilar and mediastinal lymphadenopathy is concerning. There has been concern about autoimmune disease given her positive JOHNSON. Consulted Pulmonary, who then consulted Thoracic surgery. Concern that pulmonary hypertension may be playing a role. 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 Continue Aldactone. Of note, the patient is taking metoprolol not carvedilol Formal cardiology consultation was requested with Dr. Christensen. Increased toprol to 200 mg in AM starting on 08/20. Gave an additonal dose of toprol on 08/19. Most recent echo showed severely reduced ejection fraction at 15-20%. This is nonischemic in origin. had dual chamber pacemaker two weeks ago with hopes to improve function examines euvolemic, she has been staying on top of her weights, compliant with medications suggests that this could be non-cardiac issue continues to be euvolemic today, breathing well, no rales on exam, no edema cardiology following Bumex 1mg PO daily, was previously on 2mg daily (3) Permanent atrial fibrillation: A. fib rates are well controlled AV jennifer ablation was attempted during the prior stay without success. She has a by Bi-V pacemaker in place. She takes chronic Xarelto for anticoagulation, on hold for biopsy Continue metoprolol resume Xarelto (4) Pulmonary hypertension: Right heart catheterization within the last month revealed severely high pulmonary pressures. likely that pulmonary hypertension is contributing to symptoms Continue nasal cannula oxygen. (5) Pericardial effusion: There has been concern that this is autoimmune in nature. She has had an elevated JOHNSON titer as well as sed rate. She takes colchicine twice daily per recommendations from rheumatology. He has yet to have formal rheumatologic evaluation in the clinic. In light of lymphadenopathy I have sent an NIKO level for sarcoid. 2 hospital stays ago she appeared to have pericarditis which resolved with colchicine. (6) Diabetes: This is well controlled. Hold metformin. NovoLog sliding scale for glycemic control. patient says she does not have DM, uses Metformin for weight control (7) Pericarditis: Resolved. she has had no pleuritic chest pain. Continue colchicine (8) Morbid obesity: BMI 36 (9) Chronic respiratory failure with hypoxia: The patient has gone on rscrrc-nka-[id number] oxygen within the last month. Suspect pulmonary hypertension is playing a large role in this. Compensated CHF could be playing a role as well. on 3 L currently, no distress likely short of breath due to pulm HTN since HF is compensated at this time (10) Schizoaffective disorder: Continue all home medications. This is relatively stable. (11) COPD (chronic obstructive pulmonary disease): There does not appear to be an acute exacerbation. (12) History of pulmonary embolism: Continue Xarelto for prophylaxis. (13) DVT prophylaxis: Xarelto Plan: will transfer to medical floor, PT/OT, plan for rehab Subjective patient feeling well, c/o some constipation but otherwise doing well less pain in her chest today, breathing easier she is on 3L NC which is her baseline discussed pathology with Dr. Guillermo, no malignancy, just reactive changes in lymph nodes discussed going to rehab, she agrees, could be ready as early as tomorrow Review of Systems All systems reviewed & are unremarkable except as noted in HPI & below Physical Exam Vital Signs (Past 24 Hours): Last Vital Signs Temp 36.5 C 08/24/18 15:11 Pulse 81 08/24/18 15:11 Resp 20 08/24/18 15:11 BP 108/79 08/24/18 15:11 Pulse Ox 98 08/24/18 15:11 Constitutional: WD/WN, vitals as above Eyes: PERRL, conjunctivae normal, anicteric sclerae ENMT: external ear and nose normal, oropharynx normal Neck: trachea midline, no thyromegaly Respiratory: normal respiratory effort, lungs clear to auscultation Cardiovascular: Rate/Rhythm: regular rate; + abnormal rhythm (irregular irregular) Heart Sounds: normal S1 and normal S2 Vessels: no JVD Extremities: no edema Gastrointestinal (Abdomen): normal bowel sounds, soft, nontender, no hepatosplenomegaly Musculoskeletal: no cyanosis or clubbing, extremities motor strength 5/5 Skin: no rashes, warm and dry Neurologic: patellar DTR's 2+ bilat, sensation intact and PERRL, EOMI, accommodation nl, no face palsy, no dysarthria Psychiatric: A+Ox3, euthymic affect Lymphatic: no cervical or axillary lymphadenopathy Results & Data Medications Administered Current Inpatient Medications Albuterol (Ventolin Hfa) 2 puffs INH QID PRN PRN Reason: shortness of breath or wheezin Stop: 09/17/18 17:21 Atorvastatin Calcium (Lipitor) 10 mg PO DAILY [facility] M Stop: 09/18/18 08:59 Last Admin: 08/24/18 09:12 Dose: 10 mg Documented by: Benzonatate (Tessalon Perle) 100 mg PO TID PRN PRN Reason: Cough Stop: 09/18/18 08:59 Last Admin: 08/23/18 11:20 Dose: 100 mg Documented by: Bumetanide (Bumex) 1 mg PO QAM VICTOR M Stop: 09/23/18 08:59 Last Admin: 08/24/18 09:11 Dose: 1 mg Documented by: Colchicine (Colcrys) 0.6 mg PO BID VICTOR M Stop: 09/17/18 20:59 Last Admin: 08/24/18 09:13 Dose: 0.6 mg Documented by: Digoxin (Lanoxin) 0.125 mg PO DAILY@1600 [facility] Stop: 09/17/18 15:59 Last Admin: 08/23/18 17:09 Dose: 0.125 mg Documented by: Diphenhydramine HCl (Benadryl Capsule) 25 mg PO QAM VICTOR M Stop: 09/18/18 08:59 Last Admin: 08/24/18 09:12 Dose: Not Given Documented by: Docusate Sodium (Colace) 100 mg PO BID VICTOR M Stop: 09/17/18 20:59 Last Admin: 08/24/18 09:14 Dose: 100 mg Documented by: Gabapentin (Neurontin) 600 mg PO BID [facility]CTOR M Stop: 09/17/18 20:59 Last Admin: 08/24/18 09:14 Dose: 600 mg Documented by: Hydroxyzine HCl (Vistaril) 50 mg PO QPM VICTOR M Stop: 09/17/18 20:59 Last Admin: 08/23/18 21:14 Dose: 50 mg Documented by: Acetaminophen (Ofirmev) 1,000 mg in 100 mls @ 400 mls/hr IV Q8H VICTOR M Stop: 09/21/18 12:02 Last Infusion: 08/24/18 14:25 Dose: Infused Documented by: Metoprolol Succinate (Toprol Xl) 200 mg PO QAM VICTOR M Stop: 09/19/18 08:59 Last Admin: 08/24/18 09:14 Dose: 200 mg Documented by: Morphine Sulfate (Morphine Sulfate) 2 mg IV Q4H PRN PRN Reason: Pain Stop: 09/05/18 14:58 Last Admin: 08/23/18 17:11 Dose: 2 mg Documented by: Morphine Sulfate (Morphine Sulfate) 4 mg IV Q4H PRN PRN Reason: Severe Pain Stop: 09/05/18 14:58 Last Admin: 08/22/18 18:46 Dose: 4 mg Documented by: Ondansetron HCl (Zofran) 4 mg IV Q6H PRN PRN Reason: Nausea Stop: 09/17/18 17:21 Pantoprazole Sodium (Protonix) 40 mg PO DAILY [facility]CTOR M Stop: 09/18/18 08:59 Last Admin: 08/24/18 09:14 Dose: 40 mg Documented by: Quetiapine Fumarate (Seroquel) 300 mg PO HS [facility] Stop: 09/17/18 20:59 Last Admin: 08/23/18 21:13 Dose: 300 mg Documented by: Quetiapine Fumarate (Seroquel) 50 mg PO DAILY [facility] Stop: 09/18/18 08:59 Last Admin: 08/24/18 09:15 Dose: Not Given Documented by: Rivaroxaban (Xarelto) 20 mg PO DAILY [facility] Stop: 09/18/18 12:28 Last Admin: 08/24/18 09:14 Dose: 20 mg Documented by: Spironolactone (Aldactone) 12.5 mg PO DAILY [facility] Stop: 09/18/18 08:59 Last Admin: 08/24/18 09:12 Dose: 12.5 mg Documented by: Tramadol HCl (Ultram) 50 mg PO Q4H PRN PRN Reason: Pain Stop: 09/21/18 12:02 Last Admin: 08/23/18 09:57 Dose: 50 mg Documented by: Trazodone HCl (Desyrel) 100 mg PO HS [facility] Stop: 09/17/18 20:59 Last Admin: 03/20/19 21:12 Dose: 100 mg Documented by: (1) Diabetes Diabetes mellitus complication status: without complication Diabetes mellitus roasterman insulin use: without retirement use Diabetes mellitus type: type 2 Qualified Code(s): E11.9 - Type 2 diabetes mellitus without complications (2) Pericarditis Chronicity: acute Pericarditis type: unspecified type Qualified Code(s): I 30.9 - Acute pericarditis, unspecified (3) Schizoaffective disorder Schizoaffective disorder type: other Qualified Code(s): F25.8 - Other schizoaffective disorders (4) COPD (chronic obstructive pulmonary disease) COPD type: unspecified COPD Qualified Code(s): J44.9 - Chronic obstructive pulmonary disease, unspecified
[2018-08-24] MEDS: TRAMADOL HCL 50 MG TABLET PO PRN (16:56)
[2018-08-24] MEDS: DIGOXIN 0.125 MG TAB PO SCH (16:57)
[2018-08-24] MEDS: BENZONATATE 100 MG CAPSULE PO PRN (16:58)
[2018-08-24] MEDS: MoRPHine SULFATE 2 MG/ML CARP IV PRN (20:49)
[2018-08-24] MEDS: TRAZODONE HCL 100 MG TAB PO SCH (20:52)
[2018-08-24] MEDS: QUETIAPINE FUMARATE 300 MG TABLET PO SCH (20:52)
[2018-08-24] MEDS ORDERED: POLYETHYLENE (MIRALAX) 17 GM PACK PO PRN (21:13)
[2018-08-25] MEDS: ACETAMINOPHEN 1,000 MG/100 ML VIAL IV SCH ×3 (04:13→20:40)
[2018-08-25] MEDS: MoRPHine SULFATE 4 MG/ML 1 ML CARP\\VIAL IV PRN ×2 (04:51→20:41)
[2018-08-25 07:00] LABS: Hematocrit (blood only) 33.9 % (37-47); Hemoglobin 10.7 g/dL (12.0-16.0); Mean Corpuscular Hgb Conc 31.6 g/dL (32-36); Mean Corpuscular Volume 85.6 fL (80-100); Mean Platelet Volume 9.9 fL (7.4-10.4); Platelet Count 214 K/uL (130-400); RDW Standard Deviation 49.1 fL (36.4-46.3); Red Blood Count 3.96 M/uL (4.2-5.4); White Blood Count 8.35 K/uL (4.8-10.8)
[2018-08-25 07:38] LABS: BUN Creatinine Ratio 31.3 (10-20); Calcium 8.9 mg/dl (8.5-10.1); Creatinine Clr Calc Pharmacy 93.4 ml/min; Est GFR (African American) 86.3; Est GFR (Non-African American) 74.5; Potassium 3.7 mmol/L (3.5-5.1)
[2018-08-25] MEDS: METOPROLOL SUCC 50MG EXT REL TAB PO SCH (09:54)
[2018-08-25] MEDS: RIVAROXABAN 20 MG TAB PO SCH (09:55)
[2018-08-25] MEDS: PANTOprazole 40 MG TAB PO SCH (09:55)
[2018-08-25] MEDS: COLCHICINE 0.6 MG TAB PO SCH ×2 (09:55→20:49)
[2018-08-25] MEDS: QUETIAPINE FUMARATE 25 MG TABLET PO SCH (09:55)
[2018-08-25] MEDS: GABAPENTIN 600 MG TAB PO SCH ×2 (09:55→20:49)
[2018-08-25] MEDS: ATORVASTATIN 10 MG TAB PO SCH (09:55)
[2018-08-25] MEDS: SPIRONOLACTONE 25 MG TAB PO SCH (09:55)
[2018-08-25] MEDS: BUMETANIDE 1 MG TAB PO SCH (09:57)
[2018-08-25] MEDS: DOCUSATE SODIUM 100 MG CAP PO SCH ×2 (09:57→20:48)
--- NOTE | 2018-08-25 14:43 | Hospitalist Progress Note ---
Date of Service August 25, 2018 Assessment & Plan (1) SOB (shortness of breath): Her dyspnea is multifactorial in origin: chronic systolic HF, pulmonary hypertension, deconditioning. Prior heart catheterization has not revealed any coronary artery disease. continue on Bumex 1mg PO daily for heart failure The hilar and mediastinal lymphadenopathy is concerning. There has been concern about autoimmune disease given her positive JOHNSON. Consulted Pulmonary, who then consulted Thoracic surgery. Concern that pulmonary hypertension may be playing a role. mediastinoscopy on 08/22, biopsies of lymph nodes no evidence of malignancy shows follicular hyperplasia, anthrocosis no further treatment for lungs indicated at this point would continue to treat heart failure and pulmonary HTN continue to supply supplemental oxygen (2) Acute on chronic systolic heart failure: acute component resolved, she is euvolemic, no rales, no edema, maintained on Bumex 1mg PO daily continue Toprol at 200mg daily, continue Aldactone Most recent echo showed severely reduced ejection fraction at 15-20%. This is nonischemic in origin. had dual chamber pacemaker two weeks ago with hopes to improve function awaiting repeat echo that will be done as outpatient (3) Permanent atrial fibrillation: A. fib rates are well controlled AV jennifer ablation was attempted during the prior stay without success. She has a by Bi-V pacemaker in place continue Toprol 200mg daily for rate control continue Xarelto (4) Pulmonary hypertension: Right heart catheterization within the last month revealed severely high pulmonary pressures. likely that pulmonary hypertension is contributing to symptoms of dyspnea Continue nasal cannula oxygen. (5) Pericardial effusion: There has been concern that this is autoimmune in nature. She has had an elevated JOHNSON titer as well as sed rate. She takes colchicine twice daily per recommendations from rheumatology. He has yet to have formal rheumatologic evaluation in the clinic effusion does not appear to cause any cardiac compromise, will continue to be watched (6) Diabetes: This is well controlled. Hold metformin. NovoLog sliding scale for glycemic control. patient says she does not have DM, uses Metformin for weight control (7) Pericarditis: Resolved. she has had no pleuritic chest pain. Continue colchicine (8) Morbid obesity: BMI 36 (9) Chronic respiratory failure with hypoxia: The patient has gone on [id number] oxygen within the last month. Suspect pulmonary hypertension is playing a large role in this. Compensated CHF could be playing a role as well. titrated down to 2L, no distress likely short of breath due to pulm HTN since HF is compensated at this time (10) Schizoaffective disorder: Continue all home medications. This is relatively stable. (11) COPD (chronic obstructive pulmonary disease): There does not appear to be an acute exacerbation. (12) History of pulmonary embolism: Continue Xarelto for prophylaxis. (13) DVT prophylaxis: Xarelto Plan: will transfer to medical floor, PT/OT, plan to go home with therapy Subjective patient feeling fine, just really tired and fatigued we discussed that therapy determined she was strong enough to go home with home therapy she has some concerns, says she feels a little "wobbly" on her feet breathing is at baseline RN removed oxygen for saturations in the high 90's on 3L on room air she was desaturating to the low 80's, placed back on 2L reviewed labs, CBC and BMP stable continues to be euvolemic on 1mg Bumex Review of Systems All systems reviewed & are unremarkable except as noted in HPI & below Constitutional: + fatigue and + weakness Respiratory: + cough and + pain with cough Cardiovascular: + chest pain (from the procedure) Neurologic: + gait abnormality and + unsteadiness Physical Exam Vital Signs (Past 24 Hours): Last Vital Signs Temp 36.2 C L 08/25/18 07:53 Pulse 57 L 08/25/18 07:53 Resp 20 08/25/18 07:53 BP 106/77 08/25/18 07:53 Pulse Ox 100 08/25/18 12:26 Constitutional: WD/WN, vitals as above Eyes: PERRL, conjunctivae normal, anicteric sclerae ENMT: external ear and nose normal, oropharynx normal Neck: trachea midline, no thyromegaly Respiratory: normal respiratory effort, lungs clear to auscultation Cardiovascular: Rate/Rhythm: regular rate; + abnormal rhythm (irregular irregular) Heart Sounds: normal S1 and normal S2 Vessels: no JVD Extremities: no edema Gastrointestinal (Abdomen): normal bowel sounds, soft, nontender, no hepatosplenomegaly Musculoskeletal: no cyanosis or clubbing, extremities motor strength 5/5 Skin: no rashes, warm and dry Neurologic: patellar DTR's 2+ bilat, sensation intact and PERRL, EOMI, accommodation nl, no face palsy, no dysarthria Psychiatric: A+Ox3, euthymic affect Lymphatic: no cervical or axillary lymphadenopathy Results & Data Laboratory Results Laboratory Results - last 24 hr 08/25/18 08/25/18 06:35 06:35 WBC 8.35 RBC 3.96 L Hgb 10.7 L Hct 33.9 L MCV 85.6 MCH 27.0 MCHC 31.6 L RDW Std Deviation 49.1 H RDW Coeff of Logan 16.0 H Plt Count 214 MPV 9.9 Sodium 135 L Potassium 3.7 Chloride 98 Carbon Dioxide 30 Anion Gap 7.0 BUN 27 H Creatinine 0.87 Est Cr Clr Drug Dosing 93.4 Est GFR ( Amer) 86.3 Est GFR (Non-Af Amer) 74.5 BUN/Creatinine Ratio 31.3 H Glucose 74 Calcium 8.9 Medications Administered Current Inpatient Medications Albuterol (Ventolin Hfa) 2 puffs INH QID PRN PRN Reason: shortness of breath or wheezin Stop: 09/17/18 17:21 Atorvastatin Calcium (Lipitor) 10 mg PO DAILY [facility] Stop: 09/18/18 08:59 Last Admin: 08/25/18 09:55 Dose: 10 mg Documented by: Benzonatate (Tessalon Perle) 100 mg PO TID PRN PRN Reason: Cough Stop: 09/18/18 08:59 Last Admin: 08/24/18 16:58 Dose: 100 mg Documented by: Bumetanide (Bumex) 1 mg PO QAM [facility] Stop: 09/23/18 08:59 Last Admin: 08/25/18 09:57 Dose: 1 mg Documented by: Colchicine (Colcrys) 0.6 mg PO BID [facility] Stop: 09/17/18 20:59 Last Admin: 08/25/18 09:55 Dose: 0.6 mg Documented by: Digoxin (Lanoxin) 0.125 mg PO DAILY@1600 [facility] Stop: 09/17/18 15:59 Last Admin: 08/24/18 16:57 Dose: 0.125 mg Documented by: Diphenhydramine HCl (Benadryl Capsule) 25 mg PO QAM [facility] Stop: 09/18/18 08:59 Last Admin: 08/25/18 09:57 Dose: 25 mg Documented by: Docusate Sodium (Colace) 100 mg PO BID [facility] Stop: 09/17/18 20:59 Last Admin: 08/25/18 09:57 Dose: 100 mg Documented by: Gabapentin (Neurontin) 600 mg PO BID [facility] Stop: 09/17/18 20:59 Last Admin: 08/25/18 09:55 Dose: 600 mg Documented by: Hydroxyzine HCl (Vistaril) 50 mg PO QPM [facility] Stop: 09/17/18 20:59 Last Admin: 08/24/18 20:51 Dose: 50 mg Documented by: Acetaminophen (Ofirmev) 1,000 mg in 100 mls @ 400 mls/hr IV Q8H [facility] Stop: 09/21/18 12:02 Last Infusion: 08/25/18 14:00 Dose: Infused Documented by: Metoprolol Succinate (Toprol Xl) 200 mg PO QAM [facility] Stop: 09/19/18 08:59 Last Admin: 08/25/18 09:54 Dose: 200 mg Documented by: Morphine Sulfate (Morphine Sulfate) 2 mg IV Q4H PRN PRN Reason: Pain Stop: 09/05/18 14:58 Last Admin: 08/24/18 20:49 Dose: 2 mg Documented by: Morphine Sulfate (Morphine Sulfate) 4 mg IV Q4H PRN PRN Reason: Severe Pain Stop: 09/05/18 14:58 Last Admin: 08/25/18 04:51 Dose: 4 mg Documented by: Ondansetron HCl (Zofran) 4 mg IV Q6H PRN PRN Reason: Nausea Stop: 09/17/18 17:21 Pantoprazole Sodium (Protonix) 40 mg PO DAILY [facility] Stop: 09/18/18 08:59 Last Admin: 08/25/18 09:55 Dose: 40 mg Documented by: Polyethylene Glycol (Miralax Powder Packet) 17 gm PO DAILY PRN PRN Reason: Constipation Stop: 09/23/18 21:12 Quetiapine Fumarate (Seroquel) 300 mg PO HS [facility] Stop: 09/17/18 20:59 Last Admin: 08/24/18 20:52 Dose: 300 mg Documented by: Quetiapine Fumarate (Seroquel) 50 mg PO DAILY [facility] Stop: 09/18/18 08:59 Last Admin: 08/25/18 09:55 Dose: 50 mg Documented by: Rivaroxaban (Xarelto) 20 mg PO DAILY [facility] Stop: 09/18/18 12:28 Last Admin: 08/25/18 09:55 Dose: 20 mg Documented by: Spironolactone (Aldactone) 12.5 mg PO DAILY [facility] Stop: 09/18/18 08:59 Last Admin: 08/25/18 09:55 Dose: 12.5 mg Documented by: Tramadol HCl (Ultram) 50 mg PO Q4H PRN PRN Reason: Pain Stop: 09/21/18 12:02 Last Admin: 08/24/18 16:56 Dose: 50 mg Documented by: Trazodone HCl (Desyrel) 100 mg PO HS [facility] Stop: 09/17/18 20:59 Last Admin: 08/24/18 20:52 Dose: 100 mg Documented by: (1) Diabetes Diabetes mellitus complication status: without complication Diabetes mellitus penitentiary insulin use: without intermediate frame tender use Diabetes mellitus type: type 2 Qualified Code(s): E11.9 - Type 2 diabetes mellitus without complications (2) Pericarditis Chronicity: acute Pericarditis type: unspecified type Qualified Code(s): I30.9 - Acute pericarditis, unspecified (3) Schizoaffective disorder Schizoaffective disorder type: other Qualified Code(s): F25.8 - Other schizoaffective disorders (4) COPD (chronic obstructive pulmonary disease) COPD type: unspecified COPD Qualified Code(s): J44.9 - Chronic obstructive pulmonary disease, unspecified
[2018-08-25] MEDS: DIGOXIN 0.125 MG TAB PO SCH (15:51)
[2018-08-25] MEDS: TRAZODONE HCL 100 MG TAB PO SCH (20:49)
[2018-08-25] MEDS: QUETIAPINE FUMARATE 300 MG TABLET PO SCH (20:50)
[2018-08-26] MEDS: ACETAMINOPHEN 1,000 MG/100 ML VIAL IV SCH ×3 (03:47→20:13)
[2018-08-26] MEDS: METOPROLOL SUCC 50MG EXT REL TAB PO SCH (08:40)
[2018-08-26] MEDS: SPIRONOLACTONE 25 MG TAB PO SCH (08:40)
[2018-08-26] MEDS: RIVAROXABAN 20 MG TAB PO SCH (08:40)
[2018-08-26] MEDS: BUMETANIDE 1 MG TAB PO SCH (08:40)
[2018-08-26] MEDS: ATORVASTATIN 10 MG TAB PO SCH (08:40)
[2018-08-26] MEDS: QUETIAPINE FUMARATE 25 MG TABLET PO SCH (08:41)
[2018-08-26] MEDS: PANTOprazole 40 MG TAB PO SCH (08:41)
[2018-08-26] MEDS: COLCHICINE 0.6 MG TAB PO SCH ×2 (08:41→20:21)
[2018-08-26] MEDS: GABAPENTIN 600 MG TAB PO SCH ×2 (08:41→20:22)
[2018-08-26] MEDS: DOCUSATE SODIUM 100 MG CAP PO SCH ×2 (08:43→20:23)
[2018-08-26] MEDS: MoRPHine SULFATE 2 MG/ML CARP IV PRN ×2 (08:44→23:37)
--- NOTE | 2018-08-26 12:37 | Hospitalist Progress Note ---
Date of Service August 26, 2018 Assessment & Plan (1) SOB (shortness of breath): Her dyspnea is multifactorial in origin: chronic systolic HF, pulmonary hypertension, deconditioning. Prior heart catheterization has not revealed any coronary artery disease. continue on Bumex 1mg PO daily for heart failure The hilar and mediastinal lymphadenopathy is concerning. There has been concern about autoimmune disease given her positive JOHNSON. Consulted Pulmonary, who then consulted Thoracic surgery. Concern that pulmonary hypertension may be playing a role. mediastinoscopy on 08/22, biopsies of lymph nodes no evidence of malignancy shows follicular hyperplasia, anthrocosis no further treatment for lungs indicated at this point would continue to treat heart failure and pulmonary HTN will check nocturnal desaturation this evening, check morning ABG see if she qualifies for BIPAP if not, then could get sleep study as outpatient (2) Acute on chronic systolic heart failure: acute component resolved, she is euvolemic, no rales, no edema, maintained on Bumex 1mg PO daily continue Toprol at 200mg daily, continue Aldactone Most recent echo showed severely reduced ejection fraction at 15-20%. This is nonischemic in origin. had dual chamber pacemaker two weeks ago with hopes to improve function awaiting repeat echo that will be done as outpatient (3) Permanent atrial fibrillation: A. fib rates are well controlled AV jennifer ablation was attempted during the prior stay without success. She has a by Bi-V pacemaker in place continue Toprol 200mg daily for rate control continue Xarelto (4) Pulmonary hypertension: Right heart catheterization within the last month revealed severely high pulmonary pressures. likely that pulmonary hypertension is contributing to symptoms of dyspnea Continue nasal cannula oxygen. again, check for sleep apnea as another component to treat (5) Pericardial effusion: There has been concern that this is autoimmune in nature. She has had an elevated JOHNSON titer as well as sed rate. She takes colchicine twice daily per recommendations from rheumatology. He has yet to have formal rheumatologic evaluation in the clinic effusion does not appear to cause any cardiac compromise, will continue to be watched (6) Diabetes: This is well controlled. Hold metformin. NovoLog sliding scale for glycemic control. patient says she does not have DM, uses Metformin for weight control (7) Pericarditis: Resolved. she has had no pleuritic chest pain. Continue colchicine (8) Morbid obesity: BMI 36 (9) Chronic respiratory failure with hypoxia: The patient has gone on [id number] oxygen within the last month. Suspect pulmonary hypertension is playing a large role in this. Compensated CHF could be playing a role as well. titrated down to 2L, no distress likely short of breath due to pulm HTN since HF is compensated at this time (10) Schizoaffective disorder: Continue all home medications. This is relatively stable. (11) COPD (chronic obstructive pulmonary disease): There does not appear to be an acute exacerbation. (12) History of pulmonary embolism: Continue Xarelto for prophylaxis. (13) DVT prophylaxis: Xarelto Plan: eventually to home with home nursing, will check for sleep apnea tonight Subjective patient very fatigued and very upset, laying in bed visibly concerned about going home, getting tearful concerned she is not strong enough, she is worried about her breathing asked about BIPAP at night, says she has difficulty sleeping and has had snoring for a long time discussed that we could check nocturnal desaturation and morning ABG, try to get BIPAP approved no labs today patient says she is eating she is very tired, sleeps most of the day Review of Systems All systems reviewed & are unremarkable except as noted in HPI & below Physical Exam Vital Signs (Past 24 Hours): Last Vital Signs Temp 36.5 C 08/26/18 07:43 Pulse 115 H 08/26/18 07:43 Resp 20 08/26/18 07:43 BP 115/77 08/26/18 07:43 Pulse Ox 97 08/26/18 07:43 Constitutional: WD/WN, vitals as above Eyes: PERRL, conjunctivae normal, anicteric sclerae ENMT: external ear and nose normal, oropharynx normal Neck: trachea midline, no thyromegaly Respiratory: normal respiratory effort, lungs clear to auscultation Cardiovascular: Rate/Rhythm: regular rate; + abnormal rhythm (irregular irregular) Heart Sounds: normal S1 and normal S2 Vessels: no JVD Extremities: no edema Gastrointestinal (Abdomen): normal bowel sounds, soft, nontender, no hepatosplenomegaly Musculoskeletal: no cyanosis or clubbing, extremities motor strength 5/5 Skin: no rashes, warm and dry Neurologic: patellar DTR's 2+ bilat, sensation intact and PERRL, EOMI, accommodation nl, no face palsy, no dysarthria Psychiatric: Orientation: alert and oriented x 3 Affect: + depressed affect Mood: + depressed mood Lymphatic: no cervical or axillary lymphadenopathy Results & Data Medications Administered Current Inpatient Medications Albuterol (Ventolin Hfa) 2 puffs INH QID PRN PRN Reason: shortness of breath or wheezin Stop: 09/17/18 17:21 Atorvastatin Calcium (Lipitor) 10 mg PO DAILY [facility] Stop: 09/18/18 08:59 Last Admin: 08/26/18 08:40 Dose: 10 mg Documented by: Benzonatate (Tessalon Perle) 100 mg PO TID PRN PRN Reason: Cough Stop: 09/18/18 08:59 Last Admin: 08/24/18 16:58 Dose: 100 mg Documented by: Bumetanide (Bumex) 1 mg PO QAM [facility] Stop: 09/23/18 08:59 Last Admin: 08/26/18 08:40 Dose: 1 mg Documented by: Colchicine (Colcrys) 0.6 mg PO BID [facility] Stop: 09/17/18 20:59 Last Admin: 08/26/18 08:41 Dose: 0.6 mg Documented by: Digoxin (Lanoxin) 0.125 mg PO DAILY@1600 [facility] Stop: 09/17/18 15:59 Last Admin: 08/25/18 15:51 Dose: 0.125 mg Documented by: Diphenhydramine HCl (Benadryl Capsule) 25 mg PO QAM [facility] Stop: 09/18/18 08:59 Last Admin: 08/26/18 08:40 Dose: 25 mg Documented by: Docusate Sodium (Colace) 100 mg PO BID [facility] Stop: 09/17/18 20:59 Last Admin: 08/26/18 08:43 Dose: 100 mg Documented by: Gabapentin (Neurontin) 600 mg PO BID [facility] Stop: 09/17/18 20:59 Last Admin: 08/26/18 08:41 Dose: 600 mg Documented by: Hydroxyzine HCl (Vistaril) 50 mg PO QPM [facility] Stop: 09/17/18 20:59 Last Admin: 08/25/18 20:51 Dose: 50 mg Documented by: Acetaminophen (Ofirmev) 1,000 mg in 100 mls @ 400 mls/hr IV Q8H [facility] Stop: 09/21/18 12:02 Last Infusion: 08/26/18 12:25 Dose: Infused Documented by: Metoprolol Succinate (Toprol Xl) 200 mg PO QAM [facility] Stop: 09/19/18 08:59 Last Admin: 08/26/18 08:40 Dose: 200 mg Documented by: Morphine Sulfate (Morphine Sulfate) 2 mg IV Q4H PRN PRN Reason: Pain Stop: 09/05/18 14:58 Last Admin: 08/26/18 08:44 Dose: 2 mg Documented by: Morphine Sulfate (Morphine Sulfate) 4 mg IV Q4H PRN PRN Reason: Severe Pain Stop: 09/05/18 14:58 Last Admin: 08/25/18 20:41 Dose: 4 mg Documented by: Ondansetron HCl (Zofran) 4 mg IV Q6H PRN PRN Reason: Nausea Stop: 09/17/18 17:21 Pantoprazole Sodium (Protonix) 40 mg PO DAILY [facility] Stop: 09/18/18 08:59 Last Admin: 08/26/18 08:41 Dose: 40 mg Documented by: Polyethylene Glycol (Miralax Powder Packet) 17 gm PO DAILY PRN PRN Reason: Constipation Stop: 09/23/18 21:12 Quetiapine Fumarate (Seroquel) 300 mg PO HS [facility] Stop: 09/17/18 20:59 Last Admin: 08/25/18 20:50 Dose: 300 mg Documented by: Quetiapine Fumarate (Seroquel) 50 mg PO DAILY [facility] Stop: 09/18/18 08:59 Last Admin: 08/26/18 08:41 Dose: 50 mg Documented by: Rivaroxaban (Xarelto) 20 mg PO DAILY [facility] Stop: 09/18/18 12:28 Last Admin: 08/26/18 08:40 Dose: 20 mg Documented by: Spironolactone (Aldactone) 12.5 mg PO DAILY [facility] Stop: 09/18/18 08:59 Last Admin: 08/26/18 08:40 Dose: 12.5 mg Documented by: Tramadol HCl (Ultram) 50 mg PO Q4H PRN PRN Reason: Pain Stop: 09/21/18 12:02 Last Admin: 08/24/18 16:56 Dose: 50 mg Documented by: Trazodone HCl (Desyrel) 100 mg PO HS [facility] Stop: 09/17/18 20:59 Last Admin: 08/25/18 20:49 Dose: 100 mg Documented by: (1) Diabetes Diabetes mellitus type: type 2 Diabetes mellitus c developer insulin use: without fdc use Diabetes mellitus complication status: without complication Qualified Code(s): E11.9 - Type 2 diabetes mellitus without complications (2) Pericarditis Pericarditis type: unspecified type Chronicity: acute Qualified Code(s): I30.9 - Acute pericarditis, unspecified (3) Schizoaffective disorder Schizoaffective disorder type: other Qualified Code(s): F25.8 - Other schizoaffective disorders (4) COPD (chronic obstructive pulmonary disease) COPD type: unspecified COPD Qualified Code(s): J44.9 - Chronic obstructive pulmonary disease, unspecified
[2018-08-26] MEDS: DIGOXIN 0.125 MG TAB PO SCH (15:57)
[2018-08-26] MEDS: MoRPHine SULFATE 4 MG/ML 1 ML CARP\\VIAL IV PRN (20:13)
[2018-08-26] MEDS: QUETIAPINE FUMARATE 300 MG TABLET PO SCH (20:21)
[2018-08-26] MEDS: TRAZODONE HCL 100 MG TAB PO SCH (20:23)
[2018-08-27] MEDS: ACETAMINOPHEN 1,000 MG/100 ML VIAL IV SCH ×3 (03:20→21:17)
[2018-08-27 08:15] LABS: HCO3 ABG 32 mmol/L (19-24); Oxygen Saturation ABG 97.6 % (90-95); PCO2 ABG 48 mmHg (35-46); PO2 ABG 99 mm/Hg (80-95); pH ABG 7.44 (7.35-7.45)
[2018-08-27 08:18] LABS: Basophils # (auto) 0.03 K/uL (0-0.2); Basophils % (auto) 0.4 %; Eosinophils # (auto) 0.22 K/uL (0-0.5); Eosinophils % (auto) 2.9 %; Hematocrit (blood only) 34.4 % (37-47); Lymphocytes # (auto) 2.49 K/uL (1.2-3.4); Lymphocytes % (auto) 33.3 %; Mean Corpuscular Volume 85.6 fL (80-100); Mean Platelet Volume 9.9 fL (7.4-10.4); Monocytes # (auto) 0.85 K/uL (0.11-0.59); Monocytes % (auto) 11.4 %; Neutrophils # (auto) 3.88 K/uL (1.4-6.5); Platelet Count 281 K/uL (130-400); RDW Standard Deviation 50.1 fL (36.4-46.3); Red Blood Count 4.02 M/uL (4.2-5.4); White Blood Count 7.47 K/uL (4.8-10.8)
[2018-08-27 08:19] LABS: Allen Test Pos (Pos)
[2018-08-27] MEDS: RIVAROXABAN 20 MG TAB PO SCH (08:26)
[2018-08-27] MEDS: SPIRONOLACTONE 25 MG TAB PO SCH (08:26)
[2018-08-27] MEDS: QUETIAPINE FUMARATE 25 MG TABLET PO SCH (08:26)
[2018-08-27] MEDS: GABAPENTIN 600 MG TAB PO SCH ×2 (08:26→21:20)
[2018-08-27] MEDS: BUMETANIDE 1 MG TAB PO SCH (08:27)
[2018-08-27] MEDS: PANTOprazole 40 MG TAB PO SCH (08:27)
[2018-08-27] MEDS: METOPROLOL SUCC 50MG EXT REL TAB PO SCH (08:27)
[2018-08-27] MEDS: ATORVASTATIN 10 MG TAB PO SCH (08:27)
[2018-08-27 08:49] LABS: BUN Creatinine Ratio 25.8 (10-20); Creatinine Clr Calc Pharmacy 98.8 ml/min; Est GFR (African American) 92.7; Potassium 3.8 mmol/L (3.5-5.1)
[2018-08-27] MEDS: COLCHICINE 0.6 MG TAB PO SCH ×2 (08:56→21:21)
[2018-08-27] MEDS: DOCUSATE SODIUM 100 MG CAP PO SCH ×2 (08:56→21:21)
[2018-08-27] MEDS: BENZONATATE 100 MG CAPSULE PO PRN (13:14)
--- NOTE | 2018-08-27 15:09 | Hospitalist Progress Note ---
Date of Service August 27, 2018 Assessment & Plan (1) SOB (shortness of breath): Her dyspnea is multifactorial in origin: chronic systolic HF, pulmonary hypertension, deconditioning. Prior heart catheterization has not revealed any coronary artery disease. continue on Bumex 1mg PO daily for heart failure, has maintained euvolemia The hilar and mediastinal lymphadenopathy is concerning. There has been concern about autoimmune disease given her positive JOHNSON. Consulted Pulmonary, who then consulted Thoracic surgery. Concern that pulmonary hypertension may be playing a role. mediastinoscopy on 08/22, biopsies of lymph nodes no evidence of malignancy shows follicular hyperplasia, anthrocosis no further treatment for lungs indicated at this point would continue to treat heart failure and pulmonary HTN would recommend outpatient referral to pulmonology if not done, would need PFT nocturnal desaturation on 08/26, on 2L her saturations were 90-95% the majority of time CO2 only 48, would not qualify for BIPAP would recommend sleep study (2) Acute on chronic systolic heart failure: acute component resolved, she is euvolemic, no rales, no edema, maintained on Bumex 1mg PO daily continue Toprol at 200mg daily, continue Aldactone Most recent echo showed severely reduced ejection fraction at 15-20%. This is nonischemic in origin. had dual chamber pacemaker two weeks ago with hopes to improve function awaiting repeat echo that will be done as outpatient (3) Permanent atrial fibrillation: A. fib rates are well controlled AV jennifer ablation was attempted during the prior stay without success. She has a by Bi-V pacemaker in place continue Toprol 200mg daily for rate control continue Xarelto (4) Pulmonary hypertension: Right heart catheterization within the last month revealed severely high pulmonary pressures. likely that pulmonary hypertension is contributing to symptoms of dyspnea Continue nasal cannula oxygen. again, check for sleep apnea as another component to treat (5) Pericardial effusion: There has been concern that this is autoimmune in nature. She has had an elevated JOHNSON titer as well as sed rate. She takes colchicine twice daily per recommendations from rheumatology. He has yet to have formal rheumatologic evaluation in the clinic effusion does not appear to cause any cardiac compromise, will continue to be watched (6) Diabetes: This is well controlled. Hold metformin. NovoLog sliding scale for glycemic control. patient says she does not have DM, uses Metformin for weight control (7) Pericarditis: Resolved. she has had no pleuritic chest pain. Continue colchicine (8) Morbid obesity: BMI 36 (9) Chronic respiratory failure with hypoxia: The patient has gone on [id number] oxygen within the last month. Suspect pulmonary hypertension is playing a large role in this. Compensated CHF could be playing a role as well. titrated down to 2L, no distress likely short of breath due to pulm HTN since HF is compensated at this time (10) Schizoaffective disorder: Continue all home medications. This is relatively stable. (11) COPD (chronic obstructive pulmonary disease): There does not appear to be an acute exacerbation. (12) History of pulmonary embolism: Continue Xarelto for prophylaxis. (13) DVT prophylaxis: Xarelto Plan: likely home tomorrow with home services, home PT/OT would recommend pulmonology follow up, PFT, sleep study if not done prior would ask PT/OT to re-evaluate tomorrow prior to going home she would like portable canisters for oxygen to make it easier for her to walk Subjective patient still with dyspnea at rest and dyspnea on exertion reviewed the nocturnal desaturation study, no need for BIPAP ABG this morning showed a CO2 of only 48 and pH was actually alkalotic patient could get dedicated sleep study as outpatient patient nervous about going home, wants to make sure she can get small portable canisters for oxygen wants home services discussed that she is too strong for rehab, she remains nervous about going home, feels too weak labs normal today Review of Systems All systems reviewed & are unremarkable except as noted in HPI & below Constitutional: + fatigue and + weakness Respiratory: + cough, + dyspnea, + dyspnea on exertion and + pain with cough Physical Exam Vital Signs (Past 24 Hours): Last Vital Signs Temp 36.3 C L 08/27/18 11:47 Pulse 78 08/27/18 11:47 Resp 20 08/27/18 11:47 BP 117/82 08/27/18 11:47 Pulse Ox 99 08/27/18 11:47 Constitutional: WD/WN, vitals as above Eyes: PERRL, conjunctivae normal, anicteric sclerae ENMT: external ear and nose normal, oropharynx normal Neck: trachea midline, no thyromegaly Respiratory: normal respiratory effort, lungs clear to auscultation Cardiovascular: Rate/Rhythm: regular rate; + abnormal rhythm (irregular irregular) Heart Sounds: normal S1 and normal S2 Vessels: no JVD Extremities: no edema Gastrointestinal (Abdomen): normal bowel sounds, soft, nontender, no hepatosplenomegaly Musculoskeletal: no cyanosis or clubbing, extremities motor strength 5/5 Skin: no rashes, warm and dry Neurologic: patellar DTR's 2+ bilat, sensation intact and PERRL, EOMI, accommodation nl, no face palsy, no dysarthria Psychiatric: A+Ox3, euthymic affect Orientation: alert and oriented x 3 Affect: + depressed affect Mood: + depressed mood Lymphatic: no cervical or axillary lymphadenopathy Results & Data Laboratory Results Laboratory Results - last 24 hr 08/27/18 08/27/18 08/27/18 07:59 08:04 08:05 WBC 7.47 RBC 4.02 L Hgb 11.0 L Hct 34.4 L MCV 85.6 MCH 27.4 MCHC 32.0 RDW Std Deviation 50.1 H RDW Coeff of Logan 16.0 H Plt Count 281 MPV 9.9 Immature Gran % (Auto) 0.0 Neut % (Auto) 52.0 Lymph % (Auto) 33.3 Culberson % (Auto) 11.4 Eos % (Auto) 2.9 Baso % (Auto) 0.4 Immature Gran # (Auto) 0.00 Neut # (Auto) 3.88 Lymph # (Auto) 2.49 [place]on # (Auto) 0.85 H Eos # (Auto) 0.22 Baso # (Auto) 0.03 ABG pH 7.44 ABG pCO2 48 H ABG pO2 99 H ABG HCO3 32 H ABG O2 Saturation 97.6 H ABG Base Excess 6.4 H John Test Pos Barometric Pressure 737.0 Oxygen Given FLOW RATE 2 Sodium 138 Potassium 3.8 Chloride 101 Carbon Dioxide 34 H Anion Gap 4.0 BUN 21 H Creatinine 0.82 Est Cr Clr Drug Dosing 98.8 Est GFR ( Amer) 92.7 Est GFR (Non-Af Amer) 80.0 BUN/Creatinine Ratio 25.8 H Glucose 83 Calcium 9.0 Medications Administered Current Inpatient Medications Albuterol (Ventolin Hfa) 2 puffs INH QID PRN PRN Reason: shortness of breath or wheezin Stop: 09/17/18 17:21 Atorvastatin Calcium (Lipitor) 10 mg PO DAILY [facility] Stop: 09/18/18 08:59 Last Admin: 08/27/18 08:27 Dose: 10 mg Documented by: Benzonatate (Tessalon Perle) 100 mg PO TID PRN PRN Reason: Cough Stop: 09/18/18 08:59 Last Admin: 08/27/18 13:14 Dose: 100 mg Documented by: Bumetanide (Bumex) 1 mg PO QAM [facility] Stop: 09/23/18 08:59 Last Admin: 08/27/18 08:27 Dose: 1 mg Documented by: Colchicine (Colcrys) 0.6 mg PO BID [facility] Stop: 09/17/18 20:59 Last Admin: 08/27/18 21:21 Dose: 0.6 mg Documented by: Digoxin (Lanoxin) 0.125 mg PO DAILY@1600 [facility] Stop: 09/17/18 15:59 Last Admin: 08/27/18 15:30 Dose: 0.125 mg Documented by: Diphenhydramine HCl (Benadryl Capsule) 25 mg PO [facility] Stop: 09/18/18 08:59 Last Admin: 08/27/18 08:56 Dose: 25 mg Documented by: Docusate Sodium (Colace) 100 mg PO BID [facility] Stop: 09/17/18 20:59 Last Admin: 08/27/18 21:21 Dose: 100 mg Documented by: Gabapentin (Neurontin) 600 mg PO BID [facility] Stop: 09/17/18 20:59 Last Admin: 08/27/18 21:20 Dose: 600 mg Documented by: Hydroxyzine HCl (Vistaril) 50 mg PO QPM [facility] Stop: 09/17/18 20:59 Last Admin: 08/27/18 21:19 Dose: 50 mg Documented by: Acetaminophen (Ofirmev) 1,000 mg in 100 mls @ 400 mls/hr IV Q8H [facility] Stop: 09/21/18 12:02 Last Admin: 08/27/18 21:17 Dose: 400 mls/hr Documented by: Metoprolol Succinate (Toprol Xl) 200 mg PO QAM [facility] Stop: 09/19/18 08:59 Last Admin: 08/27/18 08:27 Dose: 200 mg Documented by: Morphine Sulfate (Morphine Sulfate) 2 mg IV Q4H PRN PRN Reason: Pain Stop: 09/05/18 14:58 Last Admin: 08/26/18 23:37 Dose: 2 mg Documented by: Morphine Sulfate (Morphine Sulfate) 4 mg IV Q4H PRN PRN Reason: Severe Pain Stop: 09/05/18 14:58 Last Admin: 08/26/18 20:13 Dose: 4 mg Documented by: Ondansetron HCl (Zofran) 4 mg IV Q6H PRN PRN Reason: Nausea Stop: 09/17/18 17:21 Last Admin: 08/27/18 17:00 Dose: 4 mg Documented by: Pantoprazole Sodium (Protonix) 40 mg PO DAILY [facility] Stop: 09/18/18 08:59 Last Admin: 08/27/18 08:27 Dose: 40 mg Documented by: Polyethylene Glycol (Miralax Powder Packet) 17 gm PO DAILY PRN PRN Reason: Constipation Stop: 09/23/18 21:12 Quetiapine Fumarate (Seroquel) 300 mg PO [facility] Stop: 09/17/18 20:59 Last Admin: 08/27/18 21:21 Dose: 300 mg Documented by: Quetiapine Fumarate (Seroquel) 50 mg PO DAILY [facility] Stop: 09/18/18 08:59 Last Admin: 08/27/18 08:26 Dose: 50 mg Documented by: Rivaroxaban (Xarelto) 20 mg PO DAILY [facility] Stop: 09/18/18 12:28 Last Admin: 08/27/18 08:26 Dose: 20 mg Documented by: Spironolactone (Aldactone) 12.5 mg PO DAILY [facility] Stop: 09/18/18 08:59 Last Admin: 08/27/18 08:26 Dose: 12.5 mg Documented by: Tramadol HCl (Ultram) 50 mg PO Q4H PRN PRN Reason: Pain Stop: 09/21/18 12:02 Last Admin: 08/27/18 15:28 Dose: 50 mg Documented by: Trazodone HCl (Desyrel) 100 mg PO HS [facility] Stop: 09/17/18 20:59 Last Admin: 08/27/18 21:20 Dose: 100 mg Documented by: (1) Diabetes Diabetes mellitus complication status: without complication Diabetes mellitus prison insulin use: without continuous churn buttermaker use Diabetes mellitus type: type 2 Qualified Code(s): E11.9 - Type 2 diabetes mellitus without complications (2) Pericarditis Chronicity: acute Pericarditis type: unspecified type Qualified Code(s): I30.9 - Acute pericarditis, unspecified (3) Schizoaffective disorder Schizoaffective disorder type: other Qualified Code(s): F25.8 - Other schizoaffective disorders (4) COPD (chronic obstructive pulmonary disease) COPD type: unspecified COPD Qualified Code(s): J44.9 - Chronic obstructive pulmonary disease, unspecified
[2018-08-27] MEDS: TRAMADOL HCL 50 MG TABLET PO PRN (15:28)
[2018-08-27] MEDS: DIGOXIN 0.125 MG TAB PO SCH (15:30)
[2018-08-27] MEDS: TRAZODONE HCL 100 MG TAB PO SCH (21:20)
[2018-08-27] MEDS: QUETIAPINE FUMARATE 300 MG TABLET PO SCH (21:21)
[2018-08-28] MEDS: ACETAMINOPHEN 1,000 MG/100 ML VIAL IV SCH ×2 (03:37→13:02)
[2018-08-28] MEDS: PANTOprazole 40 MG TAB PO SCH (08:42)
[2018-08-28] MEDS: METOPROLOL SUCC 50MG EXT REL TAB PO SCH (08:42)
[2018-08-28] MEDS: ATORVASTATIN 10 MG TAB PO SCH (08:42)
[2018-08-28] MEDS: BUMETANIDE 1 MG TAB PO SCH (08:42)
[2018-08-28] MEDS: GABAPENTIN 600 MG TAB PO SCH (08:42)
[2018-08-28] MEDS: QUETIAPINE FUMARATE 25 MG TABLET PO SCH (08:42)
[2018-08-28] MEDS: SPIRONOLACTONE 25 MG TAB PO SCH (08:43)
[2018-08-28] MEDS: RIVAROXABAN 20 MG TAB PO SCH (08:43)
[2018-08-28] MEDS: COLCHICINE 0.6 MG TAB PO SCH (08:44)
[2018-08-28] MEDS: TRAMADOL HCL 50 MG TABLET PO PRN ×2 (08:50→16:09)
[2018-08-28] MEDS: DOCUSATE SODIUM 100 MG CAP PO SCH (08:50)
[2018-08-28] MEDS ORDERED: BENZONATATE 100 MG CAPSULE PO PRN (09:46)
[2018-08-28] MEDS: BENZONATATE 100 MG CAPSULE PO PRN (10:36)
[2018-08-28] MEDS: DIGOXIN 0.125 MG TAB PO SCH (16:07)
--- NOTE | 2018-08-28 17:03 | Discharge Summary ---
Date of Service August 28, 2018 Admission HPI Per Admitting Provider 57yo AA female with chronic systolic CHF, a.fib, recent biV pacer placement, pulmonary HTN, COPD, pericardial effusion, and schizoaffective disorder who presents with worsening shortness of breath, PND, orthopnea (using 4 pillows to sleep), cough, and chest discomforts when she coughs. She was d/c from [facility] on 08/10/18 and felt "good" until about 3 days ago when the above symptoms started. She admits to eating a hoagie on Tuesday but otherwise is trying to eat healthily. She is following her fluid restriction. All of her pulmonary symptoms worsened yesterday, and then last night she slept very poorly because of severe dyspnea. With walking just a few steps she gets out of breath. She mentions she was previously treated with lasix BID but was changed to bumex daily following her last stay but she feels she did better on the lasix. She doesn't feel that she has gained any significant weight. She is on home O2 - 3 liters NC continously. Principal Diagnosis Acute on chronic systolic CHF, Dyspnea Discharge Exam Constitutional WD/WN, vitals as above well developed, well nourished and + obese; no acute distress and not ill appearing ENMT external ear and nose normal, oropharynx normal Neck trachea midline, no thyromegaly Respiratory normal respiratory effort, lungs clear to auscultation Cardiovascular Rate/Rhythm: regular rate; + abnormal rhythm (irregular irregular) Heart Sounds: normal S1 and normal S2; no murmur and no cardiac rub Extremities: no edema Gastrointestinal (Abdomen) normal bowel sounds, soft, nontender, no hepatosplenomegaly Musculoskeletal no cyanosis or clubbing, extremities motor strength 5/5 Extremities: strength 5/5 throughout Skin no rashes, warm and dry Neurologic moves all extremities Psychiatric Orientation: alert and oriented x 3 Affect: + depressed affect Mood: + depressed mood Discharge Data Allergies Allergy/AdvReac Type Severity Reaction Status Date / Time fentanyl Allergy Mild RASH,ITCHIN Verified 08/22/18 09:15 G Consultations 08/18/18 13:58 ED Decision to Admit Stat 08/18/18 17:22 Consult Cardiology Routine 08/19/18 07:34 Consult Pulmonology Routine 08/19/18 12:26 Consult Thoracic Surgery Routine Procedures Performed Operation Date: 08/22/18 09:20 Actual Procedures p Video Mediastinoscopy - Joe Guillermo MD, FACS Ordered Studies 08/18/18 12:21 CT angio chest PE protocol Stat CXR Hospital Course (1) SOB (shortness of breath): Her dyspnea is multifactorial in origin: chronic systolic HF, pulmonary hypertension, deconditioning. Prior heart catheterization has not revealed any coronary artery disease. continue on Bumex 1mg PO daily for heart failure, has maintained euvolemia The hilar and mediastinal lymphadenopathy is concerning. There has been concern about autoimmune disease given her positive JOHNSON. Consulted Pulmonary, who then consulted Thoracic surgery. Concern that pulmonary hypertension may be playing a role. mediastinoscopy on 08/22, biopsies of lymph nodes no evidence of malignancy shows follicular hyperplasia, anthrocosis no further treatment for lungs indicated at this point would continue to treat heart failure and pulmonary HTN would recommend outpatient referral to pulmonology-would need PFT-appointment arranged for her prior to discharge nocturnal desaturation on 08/26, on 2L her saturations were 90-95% the majority of time CO2 only 48, would not qualify for BIPAP would recommend sleep study as outpat when sees Pulm (2) Acute on chronic systolic heart failure: acute component resolved, she is euvolemic, no rales, no edema, maintained on Bumex 1mg PO daily continue Toprol at 200mg daily, continue Aldactone Most recent echo showed severely reduced ejection fraction at 15-20%. This is nonischemic in origin. had dual chamber pacemaker two weeks ago with hopes to improve function awaiting repeat echo that will be done as outpatient -has f/u scheduled with Cardiology (3) Permanent atrial fibrillation: A. fib rates are well controlled AV jennifer ablation was attempted during the prior stay without success. She has a by Bi-V pacemaker in place continue Toprol 200mg daily for rate control continue Xarelto (4) Pulmonary hypertension: Right heart catheterization within the last month revealed severely high pulmonary pressures. likely that pulmonary hypertension is contributing to symptoms of dyspnea Continue nasal cannula oxygen. again, check for sleep apnea as another component to treat (5) Pericardial effusion: There has been concern that this is autoimmune in nature. She has had an elevated JOHNSON titer as well as sed rate. She takes colchicine twice daily per recommendations from rheumatology. He has yet to have formal rheumatologic evaluation in the clinic effusion does not appear to cause any cardiac compromise, will continue to be watched (6) Diabetes: This is well controlled. Hold metformin while inpatient, can restart on dc. patient says she does not have DM, uses Metformin for weight control (7) Pericarditis: Resolved. she has had no pleuritic chest pain. Continue colchicine (8) Morbid obesity: BMI 36 (9) Chronic respiratory failure with hypoxia: The patient has gone on [id number] oxygen within the last month. Suspect pulmonary hypertension is playing a large role in this. Compensated CHF could be playing a role as well. titrated down to 2L, no distress likely short of breath due to pulm HTN since HF is compensated at this time (10) Schizoaffective disorder: Continue all home medications. This is relatively stable. (11) COPD (chronic obstructive pulmonary disease): There does not appear to be an acute exacerbation. (12) History of pulmonary embolism: Continue Xarelto for prophylaxis. (13) DVT prophylaxis: Xarelto Plan: dc to home today with home services, home PT/OT would recommend pulmonology follow up, PFT, sleep study if not done prior PT/OT re-evaluated her and she does not qualify for rehab Total Time Total Time Spent Total Time Spent (In Minutes): >30 min Total Time Includes: Examination of the Patient, Discharge Planning and Medication Reconciliation Discharge Plan Discharge Items Patient Disposition: Home - Home Health Services Reason For Visit: ACUTE/CHRONIC CHF Discharge Diagnosis: Acute on chronic diastolic CHF, Pulmonary hypertension Condition: Fair Discharge Goals: Diagnostic testing, Improve disease control and Learn about i llness Activity: As commented below Bathing: No limitations Exercise/Sports: As tolerated Non-emergency contact: Primary Care Provider and Personal Care Service Provider Call non-emergency contact if: you have any medication questions and your symptoms worsen Follow-up/Referrals: Floyd Gan PA-C [Physician Optical Engineering Manager] - 09/14/18 2:00 pm (Please, follow up at [facility] Cardiology Office with Floyd Gan PA-C on September 14 at 2:00 pm. *The office is located in [address] of [facility] [employer] [facility]. This is the big building [facility] to [facility]. If you need to change this appointment, call the office [phone].) BalAntonio Braxton MD [Primary Care Provider] - 09/06/18 11:40 am (Please, follow up with Dr. Roper on TuesdaySeptember 06 at 11:40 am. *If you need to change this appointment, call the office at [phone].) Joe Sullivan DO [Physician] - 09/14/18 1:00 pm (Please, follow up at [facility] Pulmonology Office with Dr. Sullivan regarding a sleep study on September 14 at 1:00 pm. *The office is located in [address] of The [facility]. This is the big building [facility] to [facility]. If you need to change this appointment, call the office at [phone].) Diet: Low Sodium (2gm) Addtl Provider Instructions: You were treated for shortness of breath. Your Bumex dose was lowered to 1mg daily. Please keep all follow up appointments with the Personal Care Service Provider, the Platemaker (you will need to have a sleep study ordered), and your PCP. Prescriptions: New metoprolol succinate 100 mg capsule,sprinkle,ER 24hr 200 mg PO DAILY Qty: 60 RF: 0 benzonatate [Tessalon Perles] 100 mg Capsule 100 mg PO TID PRN (Reason: cough) Qty: 30 RF: 0 Continued colchicine [Colcrys] 0.6 mg Tablet 0.6 mg PO BID Qty: 60 RF: 2 trazodone 100 mg Tablet PO HS RF: 0 spironolactone 25 mg Tablet 12.5 mg PO DAILY RF: 0 metformin 500 mg Tablet 500 mg PO BID RF: 0 gabapentin 600 mg Tablet 600 mg PO BID RF: 0 quetiapine [Seroquel] 300 mg Tablet 300 mg PO HS RF: 0 atorvastatin 10 mg Tablet 10 mg PO DAILY RF: 0 hydroxyzine pamoate [Vistaril] 50 mg Capsule 50 mg PO QPM RF: 0 diphenhydramine HCl [Benadryl] 25 mg Capsule 25 mg PO QAM RF: 0 docusate sodium [Colace] 100 mg Capsule 100 mg PO BID RF: 0 omeprazole 20 mg Capsule,Delayed Release(Dr/Ec) 20 mg PO DAILY RF: 0 digoxin 125 mcg Tablet 0.125 mg PO DAILY RF: 0 quetiapine [Seroquel] 50 mg Tablet 50 mg PO DAILY RF: 0 Xarelto 20 mg Tablet 20 mg PO DAILY RF: 0 albuterol sulfate 90 mcg/actuation HFA aerosol inhaler 2 inha INH QID PRN (Reason: shortness of breath or wheezing) Qty: 6.7 RF: 1 Changed bumetanide 1 mg Tablet 1 mg PO QAM Qty: 30 RF: 0 Discontinued metoprolol succinate 50 mg Tablet Extended Release 24 Hr 100 mg PO QAM Qty: 60 RF: 6 furosemide 40 mg Tablet 40 mg PO BID RF: 0 carvedilol 6.25 mg Tablet 6.25 mg PO BID RF: 0 Stand-Alone Forms: [facility] Discharge Orders: Discharge Order (Routine); Ordered 08/28/18 Ordered By: Monserrat Hein Admission Data Admit Date/Time: 08/18/18 15:06 Attending Provider: Monserrat Hein Admit Provider: Torin Hardwick Primary Care Provider: Antonio Oliver V. Other Providers: Home,Nursing Agency ; Torin Hardwick ; Ron Christensen ; Nolan Justice ; Joe Guillermo Service: Medical Other Pending Studies at Discharge: No
[2018-08-28 17:08] VITALS: BP 137/78; PULSE 69; TEMP 97.5; O2SAT 97
== END 2018-08-28 19:15 | disposition home health service (06) | DRG 264 ==
LOC: ED 10:15 → 2S 15:06 → SUATTDRO 15:06 → 2S 16:04 → 4E 08-24 13:18

== ENCOUNTER 2018-09-04 10:00 | Observation (INO) ==
[2018-09-04 10:37] LABS: Basophils # (auto) 0.03 K/uL (0-0.2); Basophils % (auto) 0.3 %; Eosinophils # (auto) 0.17 K/uL (0-0.5); Eosinophils % (auto) 1.6 %; Hematocrit (blood only) 40.1 % (37-47); Hemoglobin 12.7 g/dL (12.0-16.0); Immature Granulocytes # (auto) 0.02 K/uL (0.00-0.02); Immature Granulocytes % (auto) 0.2 %; Lymphocytes # (auto) 2.17 K/uL (1.2-3.4); Lymphocytes % (auto) 20.1 %; Mean Corpuscular Hgb Conc 31.7 g/dL (32-36); Mean Corpuscular Volume 82.5 fL (80-100); Mean Platelet Volume 9.5 fL (7.4-10.4); Monocytes # (auto) 0.82 K/uL (0.11-0.59); Monocytes % (auto) 7.6 %; Neutrophils # (auto) 7.59 K/uL (1.4-6.5); Neutrophils % (auto) 70.2 %; Platelet Count 351 K/uL (130-400); RDW Coefficient of Variation 16.6 % (11.5-14.5); RDW Standard Deviation 49.8 fL (36.4-46.3); Red Blood Count 4.86 M/uL (4.2-5.4)
[2018-09-04 10:47] LABS: INR 1.3 (0.9-1.1); Partial Thromboplastin Ratio 1.1; Partial Thromboplastin Time 28.5 Seconds (21.0-31.0); Prothrombin Time 13.4 Seconds (9.0-12.0)
[2018-09-04 10:55] LABS: Albumin Level 3.3 gm/dl (3.4-5.0); BUN Creatinine Ratio 17.3 (10-20); Calcium 9.8 mg/dl (8.5-10.1); Creatinine Clr Calc Pharmacy 89.7 ml/min; Est GFR (African American) 81.7; Est GFR (Non-African American) 70.5; Potassium 3.7 mmol/L (3.5-5.1)
[2018-09-04 11:00] LABS: Albumin Globulin Ratio 0.7 (0.9-2); Bilirubin,Total 0.8 mg/dl (0.2-1); Globulin 4.8 gm/dl (2.5-4.0); Total Protein 8.1 gm/dl (6.4-8.2); Troponin I 0.024 ng/ml (0-0.045)
--- NOTE | 2018-09-04 11:08 | XRay Report ---
XR chest 1V portable HISTORY: 57 years-old Female Dyspnea acute shortness of breath COMPARISON: Chest radiograph 08/22/2018, CTA chest 08/18/2018 TECHNIQUE: Portable AP view of the chest. FINDINGS: Cardiac silhouette is enlarged, unchanged. Stable positioning of left subclavian pacer/AICD. Mild pul monary edema without pneumothorax. Trace left and small right pleural effusions with right greater th an left bibasilar opacities. Degenerative changes of the shoulders and spine. IMPRESSION: 1. Cardiomegaly with pulmonary edema. 2. Trace left and small right pleural effusions. 3. Right greater than left bibasilar opacities are suggestive of atelectasis. Superimposed pneumoniti s considered less likely. The above report was generated using voice recognition software. It may contain grammatical, syntax o r spelling errors. Electronically signed by: Bryan Ortega M.D. 09/04/2018 11:06 AM
--- NOTE | 2018-09-04 11:15 | Emergency Department Note ---
Entered by Jennifer Landrum acting as a scribe for History of Present Illness General Chief complaint: Shortness of Breath/Dyspnea Stated complaint: short of breath Time Seen by Provider: 09/04/18 10:16 Source: patient History of Present Illness Onset (ago): day(s) (yesterday) Location: chest Pain Consistency: + other (worsening) Quality: + other (shortness of breath) Relieved By: + other (sitting up) Exacerbated By: + other (lying flat) Associated symptoms: + denies other symptoms (leg swelling) and + cough; no fever/chills and no nausea/vomiting The patient is a 57 year old female who presents to the Emergency Room with complaints of worsening shortness of breath starting yesterday. The patient states that she has intermittently been in and out of the hospital since May for similar symptoms. She states that her shortness of breath is better sitting up and worse lying flat. She states that she ended up not making it the bathroom because of it. She notes that she was supposed to see Cardiology today, but because it got worse she came to the ED. The patient complains of a cough. The patient denies fever, chills, nausea, vomiting, and leg swelling. Home Medications Home Medications Medication Instructions Recorded Confirmed Type atorvastatin 10 mg PO DAILY 05/31/18 09/04/18 History digoxin 0.125 mg PO DAILY 05/31/18 09/04/18 History docusate sodium [Colace] 100 mg PO BID 05/31/18 09/04/18 History omeprazole 20 mg PO DAILY 05/31/18 09/04/18 History albuterol sulfate 2 inha INH QID PRN #6.7 gm 06/12/18 09/04/18 Rx colchicine [Colcrys] 0.6 mg PO BID #60 tab 07/06/18 09/04/18 Rx spironolactone 12.5 mg PO DAILY 08/18/18 09/04/18 History benzonatate [Tessalon Perles] 100 mg PO TID PRN #30 cap 08/28/18 09/04/18 Rx bumetanide 1 mg PO QAM #30 tab 08/28/18 09/04/18 Rx carvedilol 6.25 mg PO BID 09/04/18 09/04/18 History furosemide 40 mg PO BID 09/04/18 09/04/18 History metoprolol succinate 100 mg PO BID 09/04/18 09/04/18 History Allergies Allergy/AdvReac Type Severity Reaction Status Date / Time fentanyl Allergy Mild RASH,ITCHIN Verified 09/04/18 10:57 G Past Med/Surg History Medical History Permanent atrial fibrillation SOB (shortness of breath) (Acute) Depression Pulmonary hypertension Pericardial effusion (Acute) Severe mitral regurgitation Nonischemic cardiomyopathy Congestive heart failure with cardiomyopathy Diabetes Morbid obesity (Chronic) Chronic respiratory failure with hypoxia (Chronic) Schizoaffective disorder (Chronic) GERD (gastroesophageal reflux disease) COPD (chronic obstructive pulmonary disease) (Acute) Chronic systolic heart failure PTSD (post-traumatic stress disorder) History of pulmonary embolism Asthma (Chronic) CHF (congestive heart failure) (Chronic) 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% per echo 06/06/18; non-obstructive CAD per cath 2006 HTN (hypertension) (Chronic) PTSD (post-traumatic stress disorder) (Chronic) Atrial fibrillation Diabetes type 2, controlled patient denies having diabetes, does not want further testing even though she is prescribed Metformin GERD (gastroesophageal reflux disease) Glaucoma Morbid obesity Pulmonary embolism 2013 while living in [place] Schizoaffective disorder Ventricular arrhythmia Surgical History Presence of single chamber implantable cardioverter-defibrillator (ICD) Pacemaker (Chronic) AICD (automatic cardioverter/defibrillator) present S/P ORIF (open reduction internal fixation) fracture ankle, left S/P tubal ligation Family History Mother , in her 70s Lung cancer from this Congestive heart failure (CHF) Breast cancer Father No problems noted. 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 and A total of 10 systems reviewed and were otherwise negative Physical Exam Vital Signs Vital Signs - 24 hr 09/04/18 10:03 09/04/18 10:17 09/04/18 10:29 Temperature 36.4 C L Temperature Source Oral Sepsis Recent Fever Within 48 Hours No Sepsis Action Taken by Nursing No Action Required Pulse Rate 94 H 86 Pulse Rate from SpO2 Sensor 92 H Pulse Rhythm Regular Pulse Strength Normal Respiratory Rate 24 23 Respiratory Effort / Characteristics Short of Breath Respiratory Depth Normal Blood Pressure 111/83 115/86 Blood Pressure Mean 92 95 Blood Pressure Position Sitting Pulse Oximetry 100 99 100 Oxygen Delivery Method Nasal Cannula Nasal Cannula Nasal Cannula Oxygen Flow Rate 4 4 09/04/18 10:31 09/04/18 10:32 09/04/18 10:40 Temperature Temperature Source Sepsis Recent Fever Within 48 Hours Sepsis Action Taken by Nursing Pulse Rate 95 H 105 H Pulse Rate from SpO2 Sensor 102 H 95 H Pulse Rhythm Pulse Strength Respiratory Rate 24 Respiratory Effort / Characteristics Respiratory Depth Blood Pressure 95/80 L Blood Pressure Mean 85 Blood Pressure Position Pulse Oximetry 100 99 100 Oxygen Delivery Method Nasal Cannula Oxygen Flow Rate 4 09/04/18 10:50 09/04/18 11:00 09/04/18 11:02 Temperature Temperature Source Sepsis Recent Fever Within 48 Hours Sepsis Action Taken by Nursing Pulse Rate Pulse Rate from SpO2 Sensor 91 H 92 H 90 Pulse Rhythm Pulse Strength Respiratory Rate Respiratory Effort / Characteristics Respiratory Depth Blood Pressure 114/90 Blood Pressure Mean 98 Blood Pressure Position Pulse Oximetry 97 99 98 Oxygen Delivery Method Oxygen Flow Rate 09/04/18 11:10 09/04/18 11:20 09/04/18 11:30 Temperature Temperature Source Sepsis Recent Fever Within 48 Hours Sepsis Action Taken by Nursing Pulse Rate 87 85 93 H Pulse Rate from SpO2 Sensor 97 H 87 95 H Pulse Rhythm Pulse Strength Respiratory Rate 28 H 19 39 H Respiratory Effort / Characteristics Respiratory Depth Blood Pressure Blood Pressure Mean Blood Pressure Position Pulse Oximetry 99 100 100 Oxygen Delivery Method Oxygen Flow Rate 09/04/18 11:40 09/04/18 11:50 09/04/18 12:00 Temperature Temperature Source Sepsis Recent Fever Within 48 Hours Sepsis Action Taken by Nursing Pulse Rate 90 90 85 Pulse Rate from SpO2 Sensor 89 96 H 88 Pulse Rhythm Pulse Strength Respiratory Rate 35 H 25 H 40 H Respiratory Effort / Characteristics Respiratory Depth Blood Pressure Blood Pressure Mean Blood Pressure Position Pulse Oximetry 100 98 98 Oxygen Delivery Method Oxygen Flow Rate 09/04/18 12:10 09/04/18 12:20 09/04/18 12:30 Temperature Temperature Source Sepsis Recent Fever Within 48 Hours Sepsis Action Taken by Nursing Pulse Rate 84 84 84 Pulse Rate from SpO2 Sensor 90 89 88 Pulse Rhythm Pulse Strength Respiratory Rate 36 H 36 H 29 H Respiratory Effort / Characteristics Respiratory Depth Blood Pressure Blood Pressure Mean Blood Pressure Position Pulse Oximetry 99 99 99 Oxygen Delivery Method Oxygen Flow Rate 09/04/18 12:40 09/04/18 12:50 09/04/18 13:00 Temperature Temperature Source Sepsis Recent Fever Within 48 Hours Sepsis Action Taken by Nursing Pulse Rate 89 100 H 90 Pulse Rate from SpO2 Sensor 94 H 94 H 90 Pulse Rhythm Pulse Strength Respiratory Rate 21 36 H Respiratory Effort / Characteristics Respiratory Depth Blood Pressure Blood Pressure Mean Blood Pressure Position Pulse Oximetry 99 99 Oxygen Delivery Method Oxygen Flow Rate 09/04/18 13:10 09/04/18 13:20 09/04/18 13:30 Temperature Temperature Source Sepsis Recent Fever Within 48 Hours Sepsis Action Taken by Nursing Pulse Rate 87 93 H Pulse Rate from SpO2 Sensor 88 97 H 92 H Pulse Rhythm Pulse Strength Respiratory Rate 17 17 Respiratory Effort / Characteristics Respiratory Depth Blood Pressure Blood Pressure Mean Blood Pressure Position Pulse Oximetry 100 99 100 Oxygen Delivery Method Oxygen Flow Rate 09/04/18 13:40 09/04/18 13:50 09/04/18 14:00 Temperature Temperature Source Sepsis Recent Fever Within 48 Hours Sepsis Action Taken by Nursing Pulse Rate 89 85 Pulse Rate from SpO2 Sensor 95 H 90 87 Pulse Rhythm Pulse Strength Respiratory Rate 25 H 34 H Respiratory Effort / Characteristics Respiratory Depth Blood Pressure Blood Pressure Mean Blood Pressure Position Pulse Oximetry 98 98 98 Oxygen Delivery Method Oxygen Flow Rate 09/04/18 14:10 09/04/18 14:20 09/04/18 14:23 Temperature Temperature Source Sepsis Recent Fever Within 48 Hours Sepsis Action Taken by Nursing Pulse Rate 97 H Pulse Rate from SpO2 Sensor 92 H 88 89 Pulse Rhythm Pulse Strength Respiratory Rate Respiratory Effort / Characteristics Respiratory Depth Blood Pressure 128/88 Blood Pressure Mean 101 Blood Pressure Position Pulse Oximetry 96 98 100 Oxygen Delivery Method Oxygen Flow Rate 09/04/18 14:30 09/04/18 14:40 Temperature Temperature Source Sepsis Recent Fever Within 48 Hours Sepsis Action Taken by Nursing Pulse Rate Pulse Rate from SpO2 Sensor 92 H 91 H Pulse Rhythm Pulse Strength Respiratory Rate Respiratory Effort / Characteristics Respiratory Depth Blood Pressure 121/95 Blood Pressure Mean 103 Blood Pressure Position Pulse Oximetry 100 99 Oxygen Delivery Method Oxygen Flow Rate GENERAL: Patient is awake, alert, and in no acute distress. Patient is resting comfortably and showing no signs of anxiety. EYES: The conjunctivae are clear. The pupils are round and reactive. EARS, NOSE, MOUTH AND THROAT: The nose is without any evidence of deformity. Mucous membranes are moist. Tongue is midline. NECK: The neck is nontender and supple. RESPIRATORY: Normal respiratory effort is noted. Diminished at both bases. There was no tachypnea or conversational dyspnea appreciated. CARDIOVASCULAR: Regular rate and rhythm noted. There are no murmurs rubs or gallops. Normal S1, normal S2. GASTROINTESTINAL: The abdomen is soft. Bowel sounds are present in all quadr ants. Abdomen is nontender. MUSCULOSKELETAL/EXTREMITIES: There is no evidence of gross deformity. Full range of motion is noted in the hips and shoulders. SKIN: There is no obvious evidence of any rash. No edema was noted. There is no petechiae, pallor or cyanosis noted. NEUROLOGIC: Patient is awake alert and oriented x3. Course 1023: The patient was evaluated in room A9A, and a complete history and physical examination were performed. 1232: I reevaluated the patient and she is still short of breath. I updated her on her test results and the treatment plan. She verbally agrees and understands. 1308: I reviewed the patient's case with Dr. Matias MATA Hospitalist. He will evaluate the patient for further management. Consultations Consultation #1: I reviewed the patient's case with Dr. Matias MATA Hospitalist. He will evaluate the patient for further management. Time: 13:08 Administered Medications Discontinued Medications Furosemide (Lasix) 40 mg IV NOW STA Stop: 09/04/18 11:17 Last Admin: 09/04/18 11:20 Dose: 40 mg Documented by: [id number] Medical Decision Making Differential Diagnosis Etiologies such as pneumonia, COPD, reactive airway disease, CHF, cardiac ischemia, pulmonary embolism, pneumothorax, musculoskeletal, infections, gastrointestinal, as well as others were entertained. Medical Records Attestation: I reviewed the patient's medical records. Home Medications Current Medication List: was personally reviewed by me Laboratory Data Attestation: I reviewed the patient's lab results. Result diagrams: 09/04/18 10:25 09/04/18 10:25 Lab Results 09/04/18 09/04/18 09/04/18 Range/Units 10:25 10:25 10:25 WBC 10.80 (4.8-10.8) K/uL RBC 4.86 (4.2-5.4) M/uL Hgb 12.7 (12.0-16.0) g/dL Hct 40.1 (37-47) % MCV 82.5 (80-100) fL MCH 26.1 (25-34) pg MCHC 31.7 L (32-36) g/dL RDW Std Deviation 49.8 H (36.4-46.3) fL RDW Coeff of [place] 16.6 H (11.5-14.5) % Plt Count 351 (130-400) K/uL MPV 9.5 (7.4-10.4) fL Immature Gran % (Auto) 0.2 % Neut % (Auto) 70.2 % Lymph % (Auto) 20.1 % [place] % (Auto) 7.6 % Eos % (Auto) 1.6 % Baso % (Auto) 0.3 % Immature Gran # (Auto) 0.02 (0.00-0.02) K/uL Neut # (Auto) 7.59 H (1.4-6.5) K/uL Lymph # (Auto) 2.17 (1.2-3.4) K/uL [place] # (Auto) 0.82 H (0.11-0.59) K/uL Eos # (Auto) 0.17 (0-0.5) K/uL Baso # (Auto) 0.03 (0-0.2) K/uL PT 13.4 H (9.0-12.0) Seconds INR 1.3 H (0.9-1.1) APTT 28.5 (21.0-31.0) Seconds PTT Ratio 1.1 Sodium 141 (136-145) mmol/L Potassium 3.7 (3.5-5.1) mmol/L Chloride 102 (98-107) mmol/L Carbon Dioxide 32 (21-32) mmol/L Anion Gap 7.0 (3-11) BUN 16 (7-18) mg/dl Creatinine 0.91 (0.6-1.2) mg/dl Est Cr Clr Drug Dosing 89.7 ml/min Est GFR ( Amer) 81.7 Est GFR (Non-Af Amer) 70.5 BUN/Creatinine Ratio 17.3 (10-20) Glucose 98 (70-99) mg/dl Calcium 9.8 (8.5-10.1) mg/dl Magnesium 2.0 (1.8-2.4) mg/dl Total Bilirubin 0.8 (0.2-1) mg/dl AST 18 (15-37) U/L ALT 19 (12-78) U/L Alkaline Phosphatase 112 (45-117) U/L Troponin I 0.024 (0-0.045) ng/ml Total Protein 8.1 (6.4-8.2) gm/dl Albumin 3.3 L (3.4-5.0) gm/dl Globulin 4.8 H (2.5-4.0) gm/dl Albumin/Globulin Ratio 0.7 L (0.9-2) Digoxin (0.8-2.0) ng/ml 09/04/18 Range/Units 10:25 WBC (4.8-10.8) K/uL RBC (4.2-5.4) M/uL Hgb (12.0-16.0) g/dL Hct (37-47) % MCV (80-100) fL MCH (25-34) pg MCHC (32-36) g/dL RDW Std Deviation (36.4-46.3) fL RDW Coeff of [place] (11.5-14.5) % Plt Count (130-400) K/uL MPV (7.4-10.4) fL Immature Gran % (Auto) % Neut % (Auto) % Lymph % (Auto) % [place] % (Auto) % Eos % (Auto) % Baso % (Auto) % Immature Gran # (Auto) (0.00-0.02) K/uL Neut # (Auto) (1.4-6.5) K/uL Lymph # (Auto) (1.2-3.4) K/uL [place] # (Auto) (0.11-0.59) K/uL Eos # (Auto) (0-0.5) K/uL Baso # (Auto) (0-0.2) K/uL PT (9.0-12.0) Seconds INR (0.9-1.1) APTT (21.0-31.0) Seconds PTT Ratio Sodium (136-145) mmol/L Potassium (3.5-5.1) mmol/L Chloride (98-107) mmol/L Carbon Dioxide (21-32) mmol/L Anion Gap (3-11) BUN (7-18) mg/dl Creatinine (0.6-1.2) mg/dl Est Cr Clr Drug Dosing ml/min Est GFR ( Amer) Est GFR (Non-Af Amer) BUN/Creatinine Ratio (10-20) Glucose (70-99) mg/dl Calcium (8.5-10.1) mg/dl Magnesium (1.8-2.4) mg/dl Total Bilirubin (0.2-1) mg/dl AST (15-37) U/L ALT (12-78) U/L Alkaline Phosphatase (45-117) U/L Troponin I (0-0.045) ng/ml Total Protein (6.4-8.2) gm/dl Albumin (3.4-5.0) gm/dl Globulin (2.5-4.0) gm/dl Albumin/Globulin Ratio (0.9-2) Digoxin 0.6 L (0.8-2.0) ng/ml Imaging Data Radiologist's Impression: Radiology results as stated below per my review and the radiologist's interpretation: XR chest 1V portable HISTORY: 57 years-old Female Dyspnea acute shortness of breath COMPARISON: Chest radiograph 08/22/2018, CTA chest 08/18/2018 TECHNIQUE: Portable AP view of the chest. FINDINGS: Cardiac silhouette is enlarged, unchanged. Stable positioning of left subclavian pacer/AICD. Mild pulmonary edema without pneumothorax. Trace left and small right pleural effusions with right greater than left bibasilar opacities. Degenerative changes of the shoulders and spine. IMPRESSION: 1. Cardiomegaly with pulmonary edema. 2. Trace left and small right pleural effusions. 3. Right greater than left bibasilar opacities are suggestive of atelectasis. Superimposed pneumonitis considered less likely. The above report was generated using voice recognition software. It may contain grammatical, syntax or spelling errors. Electronically signed by: Bryan Ortega M.D. 09/04/2018 11:06 AM ECG Data Attestation: I personally reviewed and interpreted this ECG as follows: Indication: SOB/dyspnea Rate (beats per minute): 87 Rhythm: atrial fibrillation Findings: + other (low voltage noted throughout) and + ST depression (diffuse); no PAC, no PVC and no ectopy Comparison ECG Date: from (08/18/2018) Change: no significant change Blood Pressure Blood Pressure Findings: Normal blood pressure Blood Pressure Disposition: did not require urgent referral MDM Narrative The patient is a 57-year-old female who presented to the emergency department for evaluation of shortness of breath. The patient had very significant shortness of breath and has a history of pulmonary edema. She was recently discharged from our facility for similar complaints. The patient is a history of CHF. The patient was treated with Lasix in the emergency department. She continued to have significant tachypnea. I discussed the patient's laboratory and radiographic studies with her. I also discussed her case with the on-call [facility] hospitalist. They have agreed to evaluate the patient in the emergency department for further management and disposition. Impression & Plan CHF (congestive heart failure), Respiratory distress Discharge Plan Visit Data Chief Complaint: Shortness of Breath/Dyspnea Stated Complaint: short of breath ED Provider: Nolan Guillamue Discharge Problem: CHF (congestive heart failure), Respiratory distress Patient Disposition: Being Evaluated by Hospitalist Discharge Instructions Interventions: ED Discharge Assessment Last Done: 09/04/18 14:44 Forms Stand Alone Forms: My [facility] Prescriptions Prescriptions: No Action colchicine [Colcrys] 0.6 mg Tablet 0.6 mg PO BID Qty: 60 RF: 2 spironolactone 25 mg Tablet 12.5 mg PO DAILY RF: 0 benzonatate [Tessalon Perles] 100 mg Capsule 100 mg PO TID PRN (Reason: cough) Qty: 30 RF: 0 bumetanide 1 mg Tablet 1 mg PO QAM Qty: 30 RF: 0 furosemide 40 mg tablet 40 mg PO BID RF: 0 carvedilol 6.25 mg tablet 6.25 mg PO BID RF: 0 metoprolol succinate 100 mg capsule,sprinkle,ER 24hr 100 mg PO BID RF: 0 atorvastatin 10 mg Tablet 10 mg PO DAILY RF: 0 docusate sodium [Colace] 100 mg Capsule 100 mg PO BID RF: 0 omeprazole 20 mg Capsule,Delayed Release(Dr/Ec) 20 mg PO DAILY RF: 0 digoxin 125 mcg Tablet 0.125 mg PO DAILY RF: 0 albuterol sulfate 90 mcg/actuation HFA aerosol inhaler 2 inha INH QID PRN (Reason: shortness of breath or wheezing) Qty: 6.7 RF: 1 Referrals Referrals: Antonio Oliver MD [Primary Care Provider] - Discharge Problem: CHF (congestive heart failure) Qualifiers: Heart failure type: unspecified Heart failure chronicity: unspecified Qualified Code(s): I50.9 - Heart failure, unspecified The scribe's documentation has been prepared under my direction and personally reviewed by me in its entirety. I confirm that the note above accurately reflects all work, treatment, procedures, and medical decision making performed by me.
[2018-09-04] MEDS ORDERED: FUROSEMIDE 40 MG/4 ML VIAL IV STA (11:16)
--- NOTE | 2018-09-04 14:26 | History & Physical Report ---
Date of Service September 04, 2018 Assessment & Plan (1) SOB (shortness of breath): Ms. Gonzales is a 57 year old female with a past medical history of chronic systolic CHF, a.fib, recent biV pacer placement, pulmonary HTN, COPD, pericardial effusion, and schizoaffective disorder who presents to the emergency department due to shortness of breath ED Course: Received 40mg of IV Lasix. -admit to med/surg with telemetry monitoring -her symptoms are likely multifactorial, with an element of CHF, pulmonary hypertension, and possibly COPD as well, although she has never been well long enough to have outpatient PFTs -PFTs ordered inpatient -continue oxygen as needed to maintain O2 saturations >94%. Patient chronically on 3L of oxygen at home -patient had nocturnal oximetry done at last hospital admission - did not meet criteria for BiPAP - meant to f/u w/pulm for outpatient sleep study CHF -ECHO w/EF of 15-20% -switched home bumex to 40mg PO Lasix BID as patient reports better results with this regimen -addition of Entresto to home regimen given severity of CHF -continue spironolactone -daily weights, monitor I/Os Atrial Fibrillation -continue digoxin, metoprolol and xarelto Depression/Schizoaffective Disorder -continue seroquel and trazodone Diabetes Mellitus -HbA1c 6% in 08/2018 -hold home metformin and place on ISS GERD -change home omeprazole to pantoprazole Hypercholesterolemia -continue daily atorvastatin Pericardial effusion -stable, thought to be autoimmune in nature -continue colchicine Peripheral Neuropathy -continue gabapentin Code status: FULL DVT Prophylaxis: on xarelto Disposition: admit to med/surg with telemetry monitoring (2) Permanent atrial fibrillation: (3) Depression: (4) Pulmonary hypertension: (5) Nonischemic cardiomyopathy: (6) Diabetes: (7) Chronic respiratory failure with hypoxia: (8) Presence of single chamber implantable cardioverter-defibrillator (ICD): (9) Schizoaffective disorder: (10) GERD (gastroesophageal reflux disease): (11) COPD (chronic obstructive pulmonary disease): History of Present Illness Primary Care Provider: Antonio Oliver MD Ms. Gonzales is a 57 year old female with a past medical history of chronic systolic CHF, a.fib, recent biV pacer placement, pulmonary HTN, COPD, pericardial effusion, and schizoaffective disorder who presents to the emergency department due to shortness of breath. She was recently discharged from [facility] on 08/28, and states that she felt well until yesterday. She notes that her dog came home yesterday, and states that whenever she sees her dog, her breathing troubles worsen. She states that yesterday, she began to "lose wind" and felt very fatigued. She notes shortness of breath, worst at night, when she lies down. She states that this causes her to become very anxious. She notes that she was taking her medications as prescribed, and watching her fluid intake, however she developed worsening shortness of breath. She denies any weight gain or leg swelling. She is chronically on 2L of oxygen at home, around the clock. She states she has been on Lasix in the past, and that this works better for her than the Bumex she was discharged home on. She also notes a cough, which she states has been present over the last few months. She states that she has chest discomfort with the cough, however denies chest pain otherwise. She also reports feeling like she is wheezing, since her dog came back home. She does endorse occasional palpitations. She states that she has inhalers at home, which she carries with her in case she needs to use them. She has not used them more frequently recently. She denies changes in bowel habits, difficulty with urinating, fever, chills. She does state that she has had poor appetite recently, and has mainly been having Boosts instead of meals. Of note, she is a prior smoker. She quit 3 years ago, had smoked off and on since her teenage years. She states that she would smoke anywhere from 1 pack/day to 1 pack/week. She states that she has not had any alcohol for the last month and denies use of recreational drugs. Allergies Allergy/AdvReac Type Severity Reaction Status Date / Time fentanyl Allergy Mild RASH,ITCHIN Verified 09/04/18 10:57 G Home Medications Home Medications Medication Instructions Recorded Confirmed Type atorvastatin 10 mg PO DAILY 05/31/18 09/04/18 History digoxin 0.125 mg PO DAILY 05/31/18 09/04/18 History docusate sodium [Colace] 100 mg PO BID 05/31/18 09/04/18 History omeprazole 20 mg PO DAILY 05/31/18 09/04/18 History albuterol sulfate 2 inha INH QID PRN #6.7 gm 06/12/18 09/04/18 Rx colchicine [Colcrys] 0.6 mg PO BID #60 tab 07/06/18 09/04/18 Rx spironolactone 12.5 mg PO DAILY 08/18/18 09/04/18 History benzonatate [Tessalon Perles] 100 mg PO TID PRN #30 cap 08/28/18 09/04/18 Rx bumetanide 1 mg PO QAM #30 tab 08/28/18 09/04/18 Rx carvedilol 6.25 mg PO BID 09/04/18 09/04/18 History furosemide 40 mg PO BID 09/04/18 09/04/18 History metoprolol succinate 100 mg PO BID 09/04/18 09/04/18 History Past Med/Surg History Medical History Permanent atrial fibrillation SOB (shortness of breath) (Acute) Depression Pulmonary hypertension Pericardial effusion (Acute) Severe mitral regurgitation Nonischemic cardiomyopathy Congestive heart failure with cardiomyopathy Diabetes Morbid obesity (Chronic) Chronic respiratory failure with hypoxia (Chronic) Schizoaffective disorder (Chronic) GERD (gastroesophageal reflux disease) COPD (chronic obstructive pulmonary disease) (Acute) Chronic systolic heart failure PTSD (post-traumatic stress disorder) History of pulmonary embolism Asthma (Chronic) CHF (congestive heart failure) (Chronic) 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% per echo 06/06/18; non-obstructive CAD per cath 2006 HTN (hypertension) (Chronic) PTSD (post-traumatic stress disorder) (Chronic) Atrial fibrillation Diabetes type 2, controlled patient denies having diabetes, does not want further testing even though she is prescribed Metformin GERD (gastroesophageal reflux disease) Glaucoma Morbid obesity Pulmonary embolism 2013 while living in [place] Schizoaffective disorder Ventricular arrhythmia Surgical History Presence of single chamber implantable cardioverter-defibrillator (ICD) Pacemaker (Chronic) AICD (automatic cardioverter/defibrillator) present S/P ORIF (open reduction internal fixation) fracture ankle, left S/P tubal ligation Family History Mother , in her 70s Lung cancer from this Congestive heart failure (CHF) Breast cancer Father No problems noted. 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; was in [employer] x 7 yr Other Information That Helps Us Care for You: No other: lives in [place] Feels Safe at Home: Yes Smoking Status: Former smoker Hx Alcohol Use: No Hx Substance Use: No Review of Systems Constitutional: + fatigue; no fever and no chills Respiratory: + cough, + dyspnea and + wheezing; no hemoptysis Cardiovascular: + chest pain; no edema and no calf pain Gastrointestinal: no abdominal pain, no nausea, no vomiting and no change in bowel habits Genitourinary (Female): no dysuria and no urinary frequency Integumentary: no rash and no new lesions Physical Exam Vital Signs (Past 24 Hours): Last Vital Signs Temp 36.4 C L 09/04/18 10:03 Pulse 97 H 09/04/18 14:10 Resp 34 H 09/04/18 13:50 BP 114/90 09/04/18 11:02 Pulse Ox 98 09/04/18 14:20 Constitutional: well developed, well nourished, + well hydrated, + obese, cooperative and comfortable; no acute distress ENMT: external ear and nose normal, oropharynx normal Respiratory: able to speak in complete sentences; no respiratory distress Auscultation: + diminished lung sounds (at b/l lung bases) Cardiovascular: Rate/Rhythm: regular rate; + abnormal rhythm Vessels: radial pulses present Extremities: no calf tenderness and no pedal edema site over ICD insertion healing well Gastrointestinal (Abdomen): Percussion/Palpation: abdomen soft; abdomen nontender, no guarding and abdomen not rigid Skin: no rashes, warm and dry Psychiatric: Orientation: alert and oriented x 3 Affect: + tearful affect Results & Data Laboratory Results Laboratory Results - last 24 hr 09/04/18 09/04/18 09/04/18 10:25 10:25 10:25 WBC 10.80 RBC 4.86 Hgb 12.7 Hct 40.1 MCV 82.5 MCH 26.1 MCHC 31.7 L RDW Std Deviation 49.8 H RDW Coeff of [place] 16.6 H Plt Count 351 MPV 9.5 Immature Gran % (Auto) 0.2 Neut % (Auto) 70.2 Lymph % (Auto) 20.1 [place] % (Auto) 7.6 Eos % (Auto) 1.6 Baso % (Auto) 0.3 Immature Gran # (Auto) 0.02 Neut # (Auto) 7.59 H Lymph # (Auto) 2.17 [place] # (Auto) 0.82 H Eos # (Auto) 0.17 Baso # (Auto) 0.03 PT 13.4 H INR 1.3 H APTT 28.5 PTT Ratio 1.1 Sodium 141 Potassium 3.7 Chloride 102 Carbon Dioxide 32 Anion Gap 7.0 BUN 16 Creatinine 0.91 Est Cr Clr Drug Dosing 89.7 Est GFR ( Amer) 81.7 Est GFR (Non-Af Amer) 70.5 BUN/Creatinine Ratio 17.3 Glucose 98 Calcium 9.8 Magnesium 2.0 Total Bilirubin 0.8 AST 18 ALT 19 Alkaline Phosphatase 112 Troponin I 0.024 Total Protein 8.1 Albumin 3.3 L Globulin 4.8 H Albumin/Globulin Ratio 0.7 L Digoxin 09/04/18 10:25 WBC RBC Hgb Hct MCV MCH MCHC RDW Std Deviation RDW Coeff of [place] Plt Count MPV Immature Gran % (Auto) Neut % (Auto) Lymph % (Auto) [place] % (Auto) Eos % (Auto) Baso % (Auto) Immature Gran # (Auto) Neut # (Auto) Lymph # (Auto) [place] # (Auto) Eos # (Auto) Baso # (Auto) PT INR APTT PTT Ratio Sodium Potassium Chloride Carbon Dioxide Anion Gap BUN Creatinine Est Cr Clr Drug Dosing Est GFR ( Amer) Est GFR (Non-Af Amer) BUN/Creatinine Ratio Glucose Calcium Magnesium Total Bilirubin AST ALT Alkaline Phosphatase Troponin I Total Protein Albumin Globulin Albumin/Globulin Ratio Digoxin 0.6 L Supervising Physician Co-Signing Physician Notes I personally examined the patient and verified all eugene points of history and exam, discussed case, and agree with decision making with Dr Garcia. short of breath starting around yesterday. no noted weight gain. she thinks that change from lasix to bumex has made a negative impact. Otherwise as above Vitals noted, in general she is fatigued appearing although not overtly in respiratory distress. Breathing shows diminished air entry bibasilar but surprisingly no rales rhonchi or wheezes with good effort. Dyspneadifferential being related to her CHF, versus COPD (possibly), versus pulmonary hypertension. --Chronic systolic CHFher chest x-ray actually looks better than before and her lungs sound surprisingly clear, but she does have a very significant cardiomyopathy. Initiate better afterload reduction and disease management with Entresto (even though she does not seem to have significant pulmonary edema right now, hopefully better forward flow will help her dyspnea) --Possible COPDit is been attempted to get PFTs for quite a while, but she has not been well enough to stay out of the hospital long enough to get them done. Given that she is not wheezing right now, it is reasonable to proceed with basic spirometry to see if she would benefit from inhalers. --Pulmonary hypertensionprobably relates to both of above as well as TOMI (manage both of above). Overnight pulse ox/a.m. blood gas were checked recently with not enough striking findings to qualify for BiPAP out of the hospital, therefore sleep study will need to be done. Continue oxygen and supportive care, review the literature on if any of the other modalities for pulmonary hypertension have started to show true change in outcomes. Resident Activity Tracking Resident Involvement: Resident Care Provided Care Provided: Adult Hospital Medicine (1) Diabetes Diabetes mellitus complication status: without complication Diabetes mellitus jail insulin use: without jail use Diabetes mellitus type: type 2 Qualified Code(s): E11.9 - Type 2 diabetes mellitus without complications (2) Schizoaffective disorder Schizoaffective disorder type: other Qualified Code(s): F25.8 - Other schizoaffective disorders (3) COPD (chronic obstructive pulmonary disease) COPD type: unspecified COPD Qualified Code(s): J44.9 - Chronic obstructive pulmonary disease, unspecified (4) GERD (gastroesophageal reflux disease) Esophagitis presence: esophagitis presence not specified Qualified Code(s): K21.9 - Gastro-esophageal reflux disease without esophagitis
[2018-09-04] MEDS ORDERED: ALBUTEROL HFA 8 GM INHALER INH PRN (15:35)
[2018-09-04] MEDS ORDERED: GLUCOSE 10 TABS/TUBE PO PRN (17:52)
[2018-09-04] MEDS ORDERED: GLUCAGON FOR INJ 1 MG VIAL SQ PRN (17:52)
[2018-09-04] MEDS ORDERED: GLUCOSE 40% GEL 15 GM TUBE PO PRN (17:52)
[2018-09-04] MEDS ORDERED: DEXTROSE 50% 50 ML SYRINGE IV PRN (17:52)
[2018-09-04] MEDS ORDERED: CARBOHYDRATES FOR HYPOGLYCEMIA PO PRN (17:52)
[2018-09-04] MEDS: FUROSEMIDE 40 MG TAB PO SCH (18:04)
[2018-09-04] MEDS: ACETAMINOPHEN 325 MG TAB PO PRN (18:06)
[2018-09-04] MEDS: BENZONATATE 100 MG CAPSULE PO PRN (18:06)
[2018-09-04 18:37] LABS: Appearance Urine Clear (Clear); Bacteria Urine Automated Negative (Negative); Bilirubin Urine Negative (Negative); Blood Urine Negative (Negative); Color Urine Yellow; Epithelial Cell Urine Auto >30 /lpf (0-5); Glucose Urine UA Negative (Negative); Ketones Urine Negative (Negative); Leukocyte Esterase Urine Trace (Negative); Nitrite Urine Negative (Negative); Protein Urine Negative (Negative); RBC Urine Automated 0-4 /hpf (0-4); Specific Gravity Urine 1.014 (1.000-1.030); Urobilinogen Urine Negative (Negative); pH Urine 5.5 (4.5-7.5)
[2018-09-04] MEDS: DOCUSATE SODIUM 100 MG CAP PO SCH (20:56)
[2018-09-04] MEDS: METOPROLOL SUCC 50MG EXT REL TAB PO SCH (20:57)
[2018-09-04] MEDS: QUETIAPINE FUMARATE 300 MG TABLET PO SCH (20:57)
[2018-09-04] MEDS: COLCHICINE 0.6 MG TAB PO SCH (20:57)
[2018-09-04] MEDS: TRAZODONE HCL 100 MG TAB PO SCH (20:58)
[2018-09-04] MEDS: GABAPENTIN 600 MG TAB PO SCH (20:58)
[2018-09-04] MEDS ORDERED: INSULIN ASPART 100 UNITS/ML 3 ML PEN SC SCH (21:00)
[2018-09-04] MEDS: SACUBITRIL-VALSARTAN 24-26 MG TAB PO SCH (21:13)
[2018-09-05 07:02] LABS: BUN Creatinine Ratio 19.5 (10-20); Calcium 9.2 mg/dl (8.5-10.1); Creatinine Clr Calc Pharmacy 103.6 ml/min; Est GFR (African American) 101.6; Est GFR (Non-African American) 87.7; Potassium 3.2 mmol/L (3.5-5.1)
[2018-09-05] MEDS ORDERED: POTASSIUM CHLORIDE 20 MEQ TABCR PO STA (07:15)
[2018-09-05] MEDS: FUROSEMIDE 40 MG TAB PO SCH ×2 (08:18→17:06)
[2018-09-05] MEDS: METOPROLOL SUCC 50MG EXT REL TAB PO SCH ×2 (08:18→21:10)
[2018-09-05] MEDS: BENZONATATE 100 MG CAPSULE PO PRN ×3 (08:18→21:11)
[2018-09-05] MEDS: GABAPENTIN 600 MG TAB PO SCH ×2 (08:19→21:10)
[2018-09-05] MEDS: PANTOprazole 40 MG TAB PO SCH (08:19)
[2018-09-05] MEDS: RIVAROXABAN 20 MG TAB PO SCH (08:19)
[2018-09-05] MEDS: COLCHICINE 0.6 MG TAB PO SCH ×2 (08:19→21:10)
[2018-09-05] MEDS: ATORVASTATIN 10 MG TAB PO SCH (08:19)
[2018-09-05] MEDS: DOCUSATE SODIUM 100 MG CAP PO SCH ×3 (08:19→21:16)
[2018-09-05] MEDS: SACUBITRIL-VALSARTAN 24-26 MG TAB PO SCH ×2 (08:19→21:10)
[2018-09-05] MEDS: SPIRONOLACTONE 25 MG TAB PO SCH (08:20)
[2018-09-05] MEDS: TIOTROPIUM BROMIDE 5 PUFF/90 MCG INH INH SCH (14:12)
[2018-09-05] MEDS: DIGOXIN 0.125 MG TAB PO SCH (15:26)
[2018-09-05] MEDS: ACETAMINOPHEN 325 MG TAB PO PRN (15:30)
[2018-09-05] MEDS ORDERED: ACETAMINOPHEN 500 MG TAB PO PRN (16:40)
--- NOTE | 2018-09-05 18:14 | Family Medicine Progress Note ---
Date of Service September 05, 2018 Assessment & Plan (1) SOB (shortness of breath): Ms. Carson is a 57 year old female with a past medical history of chronic systolic CHF, a.fib, recent biV pacer placement, pulmonary HTN, COPD, pericardial effusion, and schizoaffective disorder who presents to the emergency department due to shortness of breath -her symptoms are likely multifactorial, with an element of CHF, pulmonary hypertension, and possibly COPD as well, although she has never been well long enough to have outpatient PFTs -PFTs completed today -Patient chronically on 3L of oxygen at home, no increased requirements here -patient had nocturnal oximetry done at last hospital admission - did not meet criteria for BiPAP - meant to f/u w/pulm for outpatient sleep study CHF -ECHO w/EF of 15-20% -switched home bumex to 40mg PO Lasix BID as patient reports better results with this regimen. Can decrease to 40mg Lasix daily if BP continues to drop. -continue new addition of Entresto -continue spironolactone -daily weights, monitor I/Os Atrial Fibrillation -continue digoxin, metoprolol and xarelto Depression/Schizoaffective Disorder -continue seroquel and trazodone Diabetes Mellitus -HbA1c 6% in 08/2018 -hold home metformin - pt states she is not diabetic and refuses BSG checks and insulin SS GERD -change home omeprazole to pantoprazole Hypercholesterolemia -continue daily atorvastatin Pericardial effusion -stable, thought to be autoimmune in nature -continue colchicine Peripheral Neuropathy -continue gabapentin Code status: FULL DVT Prophylaxis: on xarelto Disposition: remains on med/surg. Anticipate d/c tomorrow (2) Permanent atrial fibrillation: (3) Depression: (4) Pulmonary hypertension: (5) Nonischemic cardiomyopathy: (6) Diabetes: (7) Chronic respiratory failure with hypoxia: (8) Presence of single chamber implantable cardioverter-defibrillator (ICD): (9) Schizoaffective disorder: (10) GERD (gastroesophageal reflux disease): (11) COPD (chronic obstructive pulmonary disease): Supervising Physician Co-Signing Physician Notes I personally examined the patient and verified all eugene points of history and exam, discussed case, and agree with decision making with Dr Garcia. breathing feels a little better. no weak/lightheaded w BP. PFTs "really opened me up" vitals noted nad breathing unlabored no pallor or icterus dyspnea -appearing multifactorial -- cardiac (chronic systolic CHF) and pulmonary (pulm HTN, lung disease - PFTs seem to be restrcitve probably w obstructive component as well - weight/smoking seem most likely) -continue entresto - probably downtitrate lasix with blood pressure - follow -start inhalers for COPD - especially since overall airflow low otherwise as above Subjective Ms. Carson reports she slept well last night, and is feeling well today. She states that her breathing is shallow, however, but is unsure if it is better than yesterday. She does report increased urinary output with the lasix and is pleased with the results. Constitutional: + fatigue; no fever and no chills Respiratory: no cough Cardiovascular: no chest pain Gastrointestinal: no abdominal pain, no nausea and no vomiting Physical Exam Vital Signs (Past 24 Hours): Last Vital Signs Temp 36.6 C 09/05/18 15:33 Pulse 74 09/05/18 15:33 Resp 22 09/05/18 15:33 BP 121/79 09/05/18 15:33 Pulse Ox 97 09/05/18 15:33 Constitutional: WD/WN, vitals as above Respiratory: normal respiratory effort and able to speak in complete sentences Auscultation: lungs clear to auscultation bilaterally diminished at b/l lung bases Cardiovascular: RRR, no murmur, no edema Gastrointestinal (Abdomen): Inspection/Auscultation: abdomen normal to inspection Percussion/Palpation: abdomen soft; abdomen nontender, no guarding and abdomen not rigid Results & Data Laboratory Results Laboratory Results - last 24 hr 09/04/18 09/05/18 09/05/18 18:20 05:59 07:27 Sodium 141 Potassium 3.2 L Chloride 103 Carbon Dioxide 33 H Anion Gap 5.0 BUN 15 Creatinine 0.76 Est Cr Clr Drug Dosing 103.6 Est GFR ( Amer) 101.6 Est GFR (Non-Af Amer) 87.7 BUN/Creatinine Ratio 19.5 Glucose 84 POC Glucose 87 Calcium 9.2 Urine Color Yellow Urine Appearance Clear Urine pH 5.5 Ur Specific [place] 1.014 Urine Protein Negative Urine Glucose (UA) Negative Urine Ketones Negative Urine Blood Negative Urine Nitrite Negative Urine Bilirubin Negative Urine Urobilinogen Negative Ur Leukocyte Esterase Trace H Urine WBC (Auto) 5-10 H Urine RBC (Auto) 0-4 U Hyaline Cast (Auto) 1-5 U Epithel Cells (Auto) >30 H Urine Bacteria (Auto) Negative Medications Administered Current Inpatient Medications Acetaminophen (Tylenol) 650 mg PO Q4H PRN PRN Reason: pain/fever Stop: 10/04/18 15:34 Last Admin: 09/05/18 15:30 Dose: 650 mg Documented by: Acetaminophen (Tylenol) 500 mg PO Q6H PRN PRN Reason: Pain Stop: 10/05/18 16:39 Albuterol (Ventolin Hfa) 2 puffs INH QID PRN PRN Reason: shortness of breath or wheezin Stop: 10/04/18 15:34 Atorvastatin Calcium (Lipitor) 10 mg PO DAILY [facility] Stop: 10/05/18 08:59 Last Admin: 09/05/18 08:19 Dose: 10 mg Documented by: Benzonatate (Tessalon Perle) 100 mg PO TID PRN PRN Reason: cough Stop: 10/04/18 15:34 Last Admin: 09/05/18 15:44 Dose: 100 mg Documented by: Budesonide/Formoterol Fumarate (Symbicort 160mcg/4.5mcg) 2 puffs INH BID [facility] Stop: 10/05/18 20:59 Colchicine (Colcrys) 0.6 mg PO BID [facility] Stop: 10/04/18 20:59 Last Admin: 09/05/18 08:19 Dose: 0.6 mg Documented by: Digoxin (Lanoxin) 0.125 mg PO Q24H [facility] Stop: 10/05/18 15:59 Last Admin: 09/05/18 15:26 Dose: 0.125 mg Documented by: Docusate Sodium (Colace) 100 mg PO BID [facility] Stop: 10/04/18 20:59 Last Admin: 09/05/18 08:19 Dose: 100 mg Documented by: Furosemide (Lasix) 40 mg PO BID17 [facility] Stop: 10/04/18 17:04 Last Admin: 09/05/18 17:06 Dose: 40 mg Documented by: Gabapentin (Neurontin) 600 mg PO BID [facility] Stop: 10/04/18 20:59 Last Admin: 09/05/18 08:19 Dose: 600 mg Documented by: Hydroxyzine HCl (Vistaril) 50 mg PO HS [facility] Stop: 10/04/18 20:59 Last Admin: 09/04/18 20:57 Dose: 50 mg Documented by: Metoprolol Succinate (Toprol Xl) 100 mg PO BID [facility] Stop: 10/04/18 20:59 Last Admin: 09/05/18 08:18 Dose: Not Given Documented by: Pantoprazole Sodium (Protonix) 40 mg PO QAM [facility] Stop: 10/05/18 08:59 Last Admin: 09/05/18 08:19 Dose: 40 mg Documented by: Quetiapine Fumarate (Seroquel) 300 mg PO [facility] Stop: 10/04/18 20:59 Last Admin: 09/04/18 20:57 Dose: 300 mg Documented by: Rivaroxaban (Xarelto) 20 mg PO QDB [facility] Stop: 10/05/18 07:29 Last Admin: 09/05/18 08:19 Dose: 20 mg Documented by: Sacubitril/Valsartan (Entresto 24/26mg) 1 tab PO BID [facility] Stop: 10/04/18 20:59 Last Admin: 09/05/18 08:19 Dose: 1 tab Documented by: Spironolactone (Aldactone) 12.5 mg PO DAILY [facility] Stop: 10/05/18 08:59 Last Admin: 09/05/18 08:20 Dose: Not Given Documented by: Tiotropium [place] (Spiriva) 1 puffs INH QAM [facility] Stop: 10/05/18 13:14 Last Admin: 09/05/18 14:12 Dose: 1 puffs Documented by: Trazodone HCl (Desyrel) 100 mg PO [facility] Stop: 10/04/18 20:59 Last Admin: 09/04/18 20:58 Dose: 100 mg Documented by: Resident Activity Tracking Resident Involvement: Resident Care Provided Care Provided: Adult Hospital Medicine (1) Diabetes Diabetes mellitus complication status: without complication Diabetes mellitus electricity trader insulin use: without prison use Diabetes mellitus type: type 2 Qualified Code(s): E11.9 - Type 2 diabetes mellitus without complications (2) Schizoaffective disorder Schizoaffective disorder type: other Qualified Code(s): F25.8 - Other schizoaffective disorders (3) COPD (chronic obstructive pulmonary disease) COPD type: unspecified COPD Qualified Code(s): J44.9 - Chronic obstructive pulmonary disease, unspecified (4) GERD (gastroesophageal reflux disease) Esophagitis presence: esophagitis presence not specified Qualified Code(s): K21.9 - Gastro-esophageal reflux disease without esophagitis
[2018-09-05] MEDS: BUDESONIDE/FORMOTEROL FUMARATE 160/4.5 60 PUFFS/INHALER INH SCH (21:10)
[2018-09-05] MEDS: TRAZODONE HCL 100 MG TAB PO SCH (21:10)
[2018-09-05] MEDS: QUETIAPINE FUMARATE 300 MG TABLET PO SCH (21:10)
[2018-09-06] MEDS: BENZONATATE 100 MG CAPSULE PO PRN (03:32)
[2018-09-06 06:18] LABS: BUN Creatinine Ratio 18.8 (10-20); Calcium 8.6 mg/dl (8.5-10.1); Creatinine Clr Calc Pharmacy 89.5 ml/min; Est GFR (African American) 85.1; Est GFR (Non-African American) 73.4; Potassium 3.3 mmol/L (3.5-5.1)
[2018-09-06] MEDS ORDERED: POTASSIUM CHLORIDE 20 MEQ TABCR PO STA (07:04)
[2018-09-06] MEDS: SPIRONOLACTONE 25 MG TAB PO SCH (08:54)
[2018-09-06] MEDS: TIOTROPIUM BROMIDE 5 PUFF/90 MCG INH INH SCH (08:56)
[2018-09-06] MEDS: BUDESONIDE/FORMOTEROL FUMARATE 160/4.5 60 PUFFS/INHALER INH SCH (08:56)
[2018-09-06] MEDS ORDERED: FUROSEMIDE 40 MG TAB PO SCH ×2 (09:00→12:00)
[2018-09-06] MEDS: RIVAROXABAN 20 MG TAB PO SCH (09:00)
[2018-09-06] MEDS: COLCHICINE 0.6 MG TAB PO SCH (09:00)
[2018-09-06] MEDS: DOCUSATE SODIUM 100 MG CAP PO SCH (09:00)
[2018-09-06] MEDS: METOPROLOL SUCC 50MG EXT REL TAB PO SCH (09:01)
[2018-09-06] MEDS: SACUBITRIL-VALSARTAN 24-26 MG TAB PO SCH (09:01)
[2018-09-06] MEDS: ATORVASTATIN 10 MG TAB PO SCH (09:01)
[2018-09-06] MEDS: PANTOprazole 40 MG TAB PO SCH (09:01)
[2018-09-06] MEDS: GABAPENTIN 600 MG TAB PO SCH (09:01)
--- NOTE | 2018-09-06 10:31 | Discharge Summary ---
Date of Service September 06, 2018 Admission HPI Per Admitting Provider Ms. Gonzales is a 57 year old female with a past medical history of chronic systolic CHF, a.fib, recent biV pacer placement, pulmonary HTN, COPD, pericardial effusion, and schizoaffective disorder who presents to the emergency department due to shortness of breath. She was recently discharged from [facility] on 08/28, and states that she felt well until yesterday. She notes that her dog came home yesterday, and states that whenever she sees her dog, her breathing troubles worsen. She states that yesterday, she began to "lose wind" and felt very fatigued. She notes shortness of breath, worst at night, when she lies down. She states that this causes her to become very anxious. She notes that she was taking her medications as prescribed, and watching her fluid intake, however she developed worsening shortness of breath. She denies any weight gain or leg swelling. She is chronically on 2L of oxygen at home, around the clock. She states she has been on Lasix in the past, and that this works better for her than the Bumex she was discharged home on. She also notes a cough, which she states has been present over the last few months. She states that she has chest discomfort with the cough, however denies chest pain otherwise. She also reports feeling like she is wheezing, since her dog came back home. She does endorse occasional palpitations. She states that she has inhalers at home, which she carries with her in case she needs to use them. She has not used them more frequently recently. She denies changes in bowel habits, difficulty with urinating, fever, chills. She does state that she has had poor appetite recently, and has mainly been having Boosts instead of meals. Of note, she is a prior smoker. She quit 3 years ago, had smoked off and on since her teenage years. She states that she would smoke anywhere from 1 pack/day to 1 pack/week. She states that she has not had any alcohol for the last month and denies use of recreational drugs. Admission Exam Per Admitting Provider Constitutional: well developed, well nourished, + well hydrated, + obese, cooperative and comfortable; no acute distress ENMT: external ear and nose normal, oropharynx normal Respiratory: able to speak in complete sentences; no respiratory distress Auscultation: + diminished lung sounds (at b/l lung bases) Cardiovascular: Rate/Rhythm: regular rate; + abnormal rhythm Vessels: radial pulses present Extremities: no calf tenderness and no pedal edema site over ICD insertion healing well Gastrointestinal (Abdomen): Percussion/Palpation: abdomen soft; abdomen nontender, no guarding and abdomen not rigid Skin: no rashes, warm and dry Psychiatric: Orientation: alert and oriented x 3 Affect: + tearful affect Principal Diagnosis Shortness of breath Discharge Exam Constitutional cooperative and comfortable; no acute distress Respiratory no respiratory distress Auscultation: lungs clear to auscultation bilaterally and + diminished lung sounds (at b/l lung bases) Cardiovascular Rate/Rhythm: regular rate; + abnormal rhythm Extremities: no calf tenderness and no pedal edema Gastrointestinal (Abdomen) Percussion/Palpation: abdomen soft; abdomen nontender and abdomen not rigid Psychiatric Orientation: alert and oriented x 3 Discharge Data Allergies Allergy/AdvReac Type Severity Reaction Status Date / Time fentanyl Allergy Mild RASH,ITCHIN Verified 09/04/18 10:57 G Consultations 09/04/18 13:06 ED Decision to Admit Stat Hospital Course (1) SOB (shortness of breath): Ms. Gonzales is a 57 year old female with a past medical history of chronic systolic CHF, a.fib, recent biV pacer placement, pulmonary HTN, COPD, pericardial effusion, and schizoaffective disorder who presents to the emergency department due to shortness of breath -her symptoms are likely multifactorial, with an element of CHF, pulmonary hypertension, and COPD as well. She has had several ED visits and admissions for similar symptoms in the past. -PFTs done inpatient - FEV1/FVC of 74% -> potentially a mixed restrictive/obstructive picture. pt has f/u arranged w/pulm -pt started on spiriva and symbicort -Patient chronically on 3L of oxygen at home, no increased requirements here -patient had nocturnal oximetry done at last hospital admission - did not meet criteria for BiPAP - outpatient sleep study arranged CHF -ECHO w/EF of 15-20% -did not appear volume overloaded on admission, CXR actually looked improved from prior admission. Weight was also decreased from prior admission. -switched home 1mg bumex daily to 40mg PO Lasix BID while patient was admitted. Pt reports improvement in symptoms and urinary output. Will d/c on 40mg Lasix daily and BID prn for weight gain/SOB -continue new addition of Entresto -continue home spironolactone -f/u with cardiology Atrial Fibrillation -continue digoxin, metoprolol and xarelto Depression/Schizoaffective Disorder -continue seroquel and trazodone Diabetes Mellitus -HbA1c 6% in 08/2018 -pt on metformin at home - pt states she is not diabetic and refuses BSG checks and insulin SS GERD -continue omeprazole Hypercholesterolemia -continue daily atorvastatin Pericardial effusion -stable, thought to be autoimmune in nature -continue colchicine Peripheral Neuropathy -continue gabapentin (2) Permanent atrial fibrillation: (3) Depression: (4) Pulmonary hypertension: (5) Nonischemic cardiomyopathy: (6) Diabetes: (7) Chronic respiratory failure with hypoxia: (8) Presence of single chamber implantable cardioverter-defibrillator (ICD): (9) Schizoaffective disorder: (10) GERD (gastroesophageal reflux disease): (11) COPD (chronic obstructive pulmonary disease): Total Time Total Time Spent Total Time Spent (In Minutes): <30 Discharge Plan Discharge Items Patient Disposition: Home - Self-Care Reason For Visit: CHF EXACERBATION Discharge Diagnosis: Shortness of Breath Discharge Goals: Decrease discomfort, Improve disease control and Improve function Activity: Resume your previous activity Non-emergency contact: Primary Care Provider Call non-emergency contact if: you have any medication questions, your symptoms worsen and you have a fever Follow-up/Referrals: [facility] [Other] - 09/13/18 9:00 pm (Please, follow up at [facility] on TuesdaySeptember 13 at 9:00 pm. *This clinic is located at [address] [place] [address] in [place]. If you have any questions, call the clinic at [phone].) Antonio Oliver MD [Primary Care Provider] - 09/12/18 11:40 am (Please, follow up with Dr. Roper on TuesdaySeptember 12 at 11:40 am. *If you need to change this appointment, call the office at [phone].) Catalina Almanza PA-C [Physician Grips] - 09/08/18 9:30 am (Please, follow up at [facility] with Re Almanza PA-C on TuesdaySeptember 08 at 9:30 am. *If you need to change this appointment, call the office at [phone].) Diet: Low Sodium (2gm) Addtl Provider Instructions: Grazyna, you were admitted to [facility] due to difficulty with breathing. 1) Congestive Heart Failure - we changed your bumex to lasix, since you have better effect with this. Please take 40mg (one tablet) of Lasix on a daily basis. If you find that your breathing is worsening, or you feel like you are putting on weight, you can take another dose of Lasix as needed in the af ternoon, equalling two doses for a day. We have also added a medication called Entresto, which has been shown to improve symptoms in patients with severe heart failure. The heart failure clinic will be following up with you as well (appointment above). We recommend you ask your doctors about the possibility of a transplant. 2) COPD - you had lung function tests which indicate that you may benefit from inhalers, which we have added to your medication list. These inhalers include spiriva and symbicort. It is important to use these on a daily basis, instead of as needed, in order to help with your breathing. Please remember to rinse out your mouth/use mouthwash after using the symbicort as it contains an inhaled steroid, which can cause thrush. Please follow up with your family doctor. If you have any chest pain, difficulty breathing, feel dizzy or lightheaded, please call your doctor. Prescriptions: New Spiriva with HandiHaler 18 mcg Capsule, W/Inhalation Device 1 puff inhalation QAM 30 Days Qty: 30 RF: 3 Entresto 24-26 mg Tablet 1 tab PO BID 30 Days Qty: 60 RF: 3 Symbicort 160-4.5 mcg/actuation Hfa Aerosol Inhaler 2 puff inhalation BID 30 Days Qty: 1 RF: 3 Continued colchicine [Colcrys] 0.6 mg Tablet 0.6 mg PO BID Qty: 60 RF: 2 spironolactone 25 mg Tablet 12.5 mg PO DAILY RF: 0 benzonatate [Tessalon Perles] 100 mg Capsule 100 mg PO TID PRN (Reason: cough) Qty: 30 RF: 0 carvedilol 6.25 mg tablet 6.25 mg PO BID RF: 0 metoprolol succinate 100 mg capsule,sprinkle,ER 24hr 100 mg PO BID RF: 0 atorvastatin 10 mg Tablet 10 mg PO DAILY RF: 0 docusate sodium [Colace] 100 mg Capsule 100 mg PO BID RF: 0 omeprazole 20 mg Capsule,Delayed Release(Dr/Ec) 20 mg PO DAILY RF: 0 digoxin 125 mcg Tablet 0.125 mg PO DAILY RF: 0 albuterol sulfate 90 mcg/actuation HFA aerosol inhaler 2 inha INH QID PRN (Reason: shortness of breath or wheezing) Qty: 6.7 RF: 1 Changed furosemide 40 mg tablet 40 mg PO DAILY Qty: 0 RF: 0 Discontinued bumetanide 1 mg Tablet 1 mg PO QAM Qty: 30 RF: 0 Stand-Alone Forms: [employer]/Other Patient Handouts: CHF Discharge Orders: Discharge Order (Routine); Ordered 09/06/18 Ordered By: Sera Garcia Admission Data Admit Date/Time: 09/04/18 14:25 Attending Provider: Chito Chamberlain Admit Provider: Chito Chamberlain Primary Care Provider: Antonio Oliver V. Other Providers: Eamon Rose ; Home,Nursing Agency Service: Telemetry Other Interventions: Discharge Summary Assessment (RN) Last Done: 09/06/18 15:47 DC Date/Time DO NOT enter until pt leaves facility: 09/06/18 16:29 Supervising Physician Co-Signing Physician Notes I personally examined the patient and verified all eguene points of history and exam, discussed case, and agree with decision making with Dr Garcia. breathing feels better, feels OK to go home vitals noted nad breathing unlabored no pallor or icterus dyspnea -appearing multifactorial -- cardiac (chronic systolic CHF) and pulmonary (pulm HTN, lung disease - PFTs seem to be restrcitve but probably w obstructive component as well - weight/smoking seem most likely) -continue entresto - lasix daily w second dose prn weight gain - follow up at CHF clinic -start inhalers for COPD - especially since overall airflow low, but will ask for close pulmonary follow up -given severity of both heart and lung disease, not sure if she would meet transplant criteria but d/w pt and asked for her to be referred at least for evaluation and considerations otherwise as above Resident Activity Tracking Resident Involvement: Resident Care Provided Care Provided: Adult Hospital Medicine
--- NOTE | 2018-09-06 15:03 | Heart Failure Progress Note ---
Date of Service September 06, 2018 Assessment & Plan (1) Nonischemic cardiomyopathy: Her most recent echocardiogram was in July with EF of 15-20%. She should continue her guideline based medications upon discharge. Continue to titrate as BP allows as an outpatient. Her doses have been lowered historically due to hypotension. She may need to consider referral to tertiary center for more aggressive treatment options. - Metoprolol 100mg BID - Entresto 24/26 mg BID (BMP in 1-2 weeks) - Spironolactone 12.5 mg daily (2) Acute on chronic systolic and diastolic heart failure, NYHA class 4: Patient does not appear volume overloaded currently. Her fluid balance is essentially equal during this admission, however, her weight is down 6 kg. She seems to have had a significant clinical response to the inhalers. At this point, the etiology of her symptoms seems more pulmonary. I would recommend discharging her on Lasix 40 mg daily with an additional 40 mg PRN in the afternoon for worsening symptoms (weight gain, edema). She should continue daily weights, low sodium diet, and fluid restriction at home. Close follow up with HF program is recommended. She is scheduled for discharge today. HF follow up- 09/08/18 9:30am. Subjective Ms. Carson has been previously enrolled in the heart failure program. She is currently in for observation due to progressive shortness of breath. PFT's performed during this admission show significant restrictive and obstructive pulmonary disease. She notes significant improvement in her breathing today with the addition of the inhalers. She also reports she feels better with the fan blowing in her face. Physical Exam Vital Signs (Past 24 Hours): Last Vital Signs Temp 36.5 C 09/06/18 11:37 Pulse 76 09/06/18 11:37 Resp 20 09/06/18 11:37 BP 95/65 L 09/06/18 11:37 Pulse Ox 98 09/06/18 11:37
[2018-09-06] MEDS: DIGOXIN 0.125 MG TAB PO SCH (15:40)
--- NOTE | 2018-09-11 09:47 | Pulmonary Function Test ---
Pre-bronchodilator spirometry reveals a significant reduction in forced vital capacity and a concomitant mild obstructive ventilatory defect even more pronounced at low lung volumes. There was a significant response to bronchodilators suggesting a reversible airways component. Suggested measurement of lung volumes and diffusion capacity. Clinical correlation is needed.
== END 2018-09-06 16:29 | disposition home or self-care (01) ==
LOC: 2N 10:00 → ED 10:00 → 2N 14:44

== ENCOUNTER 2018-10-06 20:01 | Inpatient (IN) ==
[2018-10-06 21:51] LABS: Appearance Urine Clear (Clear); Bacteria Urine Automated Negative (Negative); Bilirubin Urine Negative (Negative); Blood Urine Trace (Negative); Color Urine Yellow; Epithelial Cell Urine Auto >30 /lpf (0-5); Glucose Urine UA Negative (Negative); Ketones Urine Negative (Negative); Leukocyte Esterase Urine Negative (Negative); Nitrite Urine Negative (Negative); Protein Urine 2+ (Negative); RBC Urine Automated 0-4 /hpf (0-4); Specific Gravity Urine 1.028 (1.000-1.030); Urobilinogen Urine Negative (Negative)
--- NOTE | 2018-10-06 22:16 | XRay Report ---
SINGLE VIEW CHEST CLINICAL HISTORY: Dyspnea. FINDINGS: An AP, portable, upright chest radiograph is compared to study dated 09/04/2018. The examinat ion is degraded by portable technique and patient rotation. A 2-lead cardiac AICD is unchanged in pos ition. The heart is enlarged and there is atherosclerotic calcification of the thoracic aorta. There is pulmonary vascular congestion and interstitial edema. There are layering pleural effusions with bi basilar consolidation. No pneumothorax is seen. The skeletal structures are osteopenic. The bony thor ax is grossly intact. IMPRESSION: 1. Cardiomegaly and AICD with evidence of congestive failure and interstitial edema. 2. There are small layering pleural effusions with bibasilar consolidation. Electronically signed by: Sunny Williamson M.D. 10/06/2018 10:15 PM
[2018-10-06 22:54] LABS: Alanine Aminotransferase 24 U/L (12-78); Albumin Level 3.4 gm/dl (3.4-5.0); Aspartate Aminotransferase 26 U/L (15-37); BUN Creatinine Ratio 25.9 (10-20); Blood Urea Nitrogen 21 mg/dl (7-18); Calcium 9.5 mg/dl (8.5-10.1); Carbon Dioxide 26 mmol/L (21-32); Chloride 106 mmol/L (98-107); Creatinine Clr Calc Pharmacy 99.5 ml/min; Est GFR (African American) 95.5; Est GFR (Non-African American) 82.4; Glucose 99 mg/dl (70-99); Potassium 4.4 mmol/L (3.5-5.1); Sodium 143 mmol/L (136-145)
[2018-10-06 22:57] LABS: Albumin Globulin Ratio 0.8 (0.9-2); Alkaline Phosphatase 137 U/L (45-117); Bilirubin,Total 0.3 mg/dl (0.2-1); Globulin 4.1 gm/dl (2.5-4.0); Total Protein 7.5 gm/dl (6.4-8.2); Troponin I < 0.015 ng/ml (0-0.045)
[2018-10-06 22:58] LABS: Basophils # (auto) 0.04 K/uL (0-0.2); Basophils % (auto) 0.3 %; Eosinophils # (auto) 0.06 K/uL (0-0.5); Eosinophils % (auto) 0.5 %; Hematocrit (blood only) 43.8 % (37-47); Hemoglobin 14.1 g/dL (12.0-16.0); Hypochromasia Present; Immature Granulocytes # (auto) 0.05 K/uL (0.00-0.02); Immature Granulocytes % (auto) 0.4 %; Lymphocytes # (auto) 3.21 K/uL (1.2-3.4); Lymphocytes % (auto) 26.2 %; Mean Corpuscular Hgb Conc 32.2 g/dL (32-36); Mean Corpuscular Volume 79.9 fL (80-100); Mean Platelet Volume 9.9 fL (7.4-10.4); Monocytes % (auto) 8.2 %; Neutrophils # (auto) 7.87 K/uL (1.4-6.5); Neutrophils % (auto) 64.4 %; Platelet Count 202 K/uL (130-400); Platelet Estimate Normal (Normal); RDW Coefficient of Variation 18.8 % (11.5-14.5); RDW Standard Deviation 54.7 fL (36.4-46.3); Red Blood Count 5.48 M/uL (4.2-5.4); White Blood Count 12.23 K/uL (4.8-10.8)
[2018-10-06] MEDS ORDERED: METOPROLOL TARTRATE 1 MG/ML VIAL IV STA (23:26)
[2018-10-06] MEDS ORDERED: PIPERACILLIN/TAZOBACTAM 4.5 GM/120 ML BAG IV ONE (23:31)
[2018-10-06] MEDS ORDERED: LEVOFLOXACIN/D5W 500 MG/100 ML BAG IV STA (23:31)
[2018-10-06] MEDS ORDERED: PIPERACILL/TAZOBAC CONSULT ACTIVE PRN (23:31)
--- NOTE | 2018-10-06 23:58 | Emergency Department Note ---
Entered by Sunny De Guzman acting as a scribe for Regino Ortiz DO History of Present Illness General Chief complaint: Shortness of Breath/Dyspnea Stated complaint: SOB Time Seen by Provider: 10/06/18 21:03 Source: patient History of Present Illness Provider complaint: SOB Onset (ago): hour(s) Location: chest Quality: + constant Exacerbated By: + other (physical exertion) Associated symptoms: + diaphoresis and + other (swollen legs) The patient is a 57 year old female with a history of CHF who presents to the Emergency Room with complaints of shortness of breath that began a few hours ago. The patient states that she feels like she "is not getting enough air" and notes that the SOB worsens with physical exertion. She also notes that she has been sweating while at home describing it as "hot flashes". She adds that she also has swollen legs. The patient states that she normally uses 3 liters of oxygen while at home. The patient also adds that she had a couple shots of vodka prior to arrival because she had company over. Home Medications Home Medications Medication Instructions Recorded Confirmed Type atorvastatin 10 mg PO DAILY 05/31/18 09/04/18 History digoxin 0.125 mg PO DAILY 05/31/18 09/04/18 History docusate sodium [Colace] 100 mg PO BID 05/31/18 09/04/18 History omeprazole 20 mg PO DAILY 05/31/18 09/04/18 History albuterol sulfate 2 inha INH QID PRN #6.7 gm 06/12/18 09/04/18 Rx colchicine [Colcrys] 0.6 mg PO BID #60 tab 07/06/18 09/04/18 Rx spironolactone 12.5 mg PO DAILY 08/18/18 09/04/18 History benzonatate [Tessalon Perles] 100 mg PO TID PRN #30 cap 08/28/18 09/04/18 Rx carvedilol 6.25 mg PO BID 09/04/18 09/04/18 History metoprolol succinate 100 mg PO BID 09/04/18 09/04/18 History budesonide-formoterol [Symbicort] 2 puff INHALATION BID 30 Days #1 09/06/18 Rx inhaler furosemide 40 mg PO DAILY #0 tab 09/06/18 09/04/18 Rx sacubitril-valsartan [Entresto] 1 tab PO BID 30 Days #60 tab 09/06/18 Rx tiotropium bromide [Spiriva with 1 puff INHALATION QAM 30 Days #30 09/06/18 Rx HandiHaler] inha Allergies Allergy/AdvReac Type Severity Reaction Status Date / Time fentanyl Allergy Mild RASH,ITCHIN Verified 09/04/18 10:57 G Past Med/Surg History Medical History Permanent atrial fibrillation SOB (shortness of breath) (Acute) Depression Pulmonary hypertension Pericardial effusion (Acute) Severe mitral regurgitation Nonischemic cardiomyopathy Congestive heart failure with cardiomyopathy Diabetes Morbid obesity (Chronic) Chronic respiratory failure with hypoxia (Chronic) Schizoaffective disorder (Chronic) GERD (gastroesophageal reflux disease) COPD (chronic obstructive pulmonary disease) (Acute) Chronic systolic heart failure PTSD (post-traumatic stress disorder) History of pulmonary embolism Asthma (Chronic) CHF (congestive heart failure) (Chronic) 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% per echo 06/06/18; non-obstructive CAD per cath 2006 HTN (hypertension) (Chronic) PTSD (post-traumatic stress disorder) (Chronic) Atrial fibrillation Diabetes type 2, controlled patient denies having diabetes, does not want further testing even though she is prescribed Metformin GERD (gastroesophageal reflux disease) Glaucoma Morbid obesity Pulmonary embolism 2013 while living in [place] Schizoaffective disorder Ventricular arrhythmia Surgical History Presence of single chamber implantable cardioverter-defibrillator (ICD) Pacemaker (Chronic) AICD (automatic cardioverter/defibrillator) present S/P ORIF (open reduction internal fixation) fracture ankle, left S/P tubal ligation Family History Mother , in her 70s Lung cancer from this Congestive heart failure (CHF) Breast cancer Father No problems noted. 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 and A total of 10 systems reviewed and were otherwise negative Physical Exam Vital Signs Vital Signs - 24 hr 10/06/18 20:07 10/06/18 20:09 10/06/18 20:20 Temperature 36.5 C Temperature Source Oral Sepsis Recent Fever Within 48 Hours No Sepsis Action Taken by Nursing No Action Required Pulse Rate 128 H 125 H Pulse Rate from SpO2 Sensor 122 H Respiratory Rate 50 H 48 H Respiratory Effort / Characteristics Accessory Muscle Use Labored Nasal Flaring Pursed Lip Short of Breath Respiratory Depth Shallow Respiratory Pattern Tachypnea Blood Pressure 144/97 H 144/97 H Blood Pressure Mean 112 112 Pulse Oximetry 99 98 98 Oxygen Delivery Method Nasal Cannula Nasal Cannula Oxygen Flow Rate 3 3 10/06/18 20:55 10/06/18 21:00 10/06/18 21:10 Temperature Temperature Source Sepsis Recent Fever Within 48 Hours Sepsis Action Taken by Nursing Pulse Rate 119 H 119 H 122 H Pulse Rate from SpO2 Sensor 124 H 115 H 116 H Respiratory Rate 43 H Respiratory Effort / Characteristics Respiratory Depth Respiratory Pattern Blood Pressure Blood Pressure Mean Pulse Oximetry 99 98 98 Oxygen Delivery Method Oxygen Flow Rate 10/06/18 21:20 10/06/18 21:30 10/06/18 21:40 Temperature Temperature Source Sepsis Recent Fever Within 48 Hours Sepsis Action Taken by Nursing Pulse Rate 112 H 108 H 113 H Pulse Rate from SpO2 Sensor 119 H 114 H 123 H Respiratory Rate 31 H 32 H 30 H Respiratory Effort / Characteristics Respiratory Depth Respiratory Pattern Blood Pressure Blood Pressure Mean Pulse Oximetry 98 99 98 Oxygen Delivery Method Oxygen Flow Rate 10/06/18 21:50 10/06/18 22:00 10/06/18 22:10 Temperature Temperature Source Sepsis Recent Fever Within 48 Hours Sepsis Action Taken by Nursing Pulse Rate 118 H 115 H 121 H Pulse Rate from SpO2 Sensor 118 H 120 H 122 H Respiratory Rate 51 H 37 H 58 H Respiratory Effort / Characteristics Respiratory Depth Respiratory Pattern Blood Pressure Blood Pressure Mean Pulse Oximetry 98 98 96 Oxygen Delivery Method Oxygen Flow Rate 10/06/18 22:20 10/06/18 22:30 10/06/18 22:37 Temperature Temperature Source Sepsis Recent Fever Within 48 Hours Sepsis Action Taken by Nursing Pulse Rate 114 H 129 H 72 Pulse Rate from SpO2 Sensor 120 H 133 H 142 H Respiratory Rate 29 H 38 H Respiratory Effort / Characteristics Respiratory Depth Respiratory Pattern Blood Pressure 140/100 Blood Pressure Mean 113 Pulse Oximetry 94 97 100 Oxygen Delivery Method Oxygen Flow Rate 10/06/18 22:38 10/06/18 23:36 Temperature Temperature Source Sepsis Recent Fever Within 48 Hours Sepsis Action Taken by Nursing Pulse Rate 131 H 133 H Pulse Rate from SpO2 Sensor 121 H Respiratory Rate Respiratory Effort / Characteristics Respiratory Depth Respiratory Pattern Blood Pressure 132/112 H 119/98 Blood Pressure Mean 118 Pulse Oximetry Oxygen Delivery Method Oxygen Flow Rate CONSTITUTIONAL/VITAL SIGNS: Reviewed / noted above. GENERAL: Non-toxic in appearance. Slightly diaphoretic. INTEGUMENTARY: Warm, dry, and [place]. HEAD: Normocephalic. EYES: without scleral icterus or trauma. ENT/OROPHARYNX: clear and moist. LYMPHADENOPATHY/NECK: Is supple without lymphadenopathy or meningismus. RESPIRATORY: Lungs clear and equal. CARDIOVASCULAR: Slightly irregular and tachycardic heart rate. GI/ABDOMEN: Soft and nontender. No organomegaly or pulsatile mass. No rebound or guarding. Normal bowel sounds. EXTREMITIES: Warm and well perfused. BACK: No CVA tenderness. NEUROLOGICAL: Intact without focal deficits. PSYCHIATRIC: normal affect. MUSCULOSKELETAL: Normally developed with good muscle tone. Course 2105: The patient was evaluated in room C02B. A complete history and physical exam was performed. 2299: I reviewed the case with Dr. Kenny-Hospitalist. He will evaluate the patient. Administered Medications Piperacillin Sod/Tazobactam Sod (Zosyn) 4.5 gm in 120 mls @ 240 mls/hr IV NOW ONE Stop: 10/07/18 00:00 Last Admin: 10/06/18 23:52 Dose: 240 mls/hr Documented by: [id number] Discontinued Medications Metoprolol Tartrate (Lopressor) 5 mg IV NOW STA Stop: 10/06/18 23:27 Last Admin: 10/06/18 23:36 Dose: 5 mg Documented by: [id number] Medical Decision Making Differential Diagnosis Differential diagnosis: Etiologies such as infections, reactive airway disease, COPD, pneumonia, pleural effusion, pulmonary edema, ARDS, pneumothorax, CHF, cardiac ischemia, cardiac tamponade, dysrhythmia, anemia, pulmonary embolism, musculoskeletal, gastrointestinal process, as well as others were entertained. Medical Records Attestation: I reviewed the patient's medical records. Home Medications Current Medication List: was personally reviewed by me Laboratory Data Attestation: I reviewed the patient's lab results. Result diagrams: 10/06/18 22:07 10/06/18 22:07 Lab Results 10/06/18 10/06/18 10/06/18 Range/Units 21:29 22:07 22:07 WBC 12.23 H (4.8-10.8) K/uL RBC 5.48 H (4.2-5.4) M/uL Hgb 14.1 (12.0-16.0) g/dL Hct 43.8 (37-47) % MCV 79.9 L (80-100) fL MCH 25.7 (25-34) pg MCHC 32.2 (32-36) g/dL RDW Std Deviation 54.7 H (36.4-46.3) fL RDW Coeff of Logan 18.8 H (11.5-14.5) % Plt Count 202 (130-400) K/uL MPV 9.9 (7.4-10.4) fL Immature Gran % (Auto) 0.4 % Neut % (Auto) 64.4 % Lymph % (Auto) 26.2 % Marin % (Auto) 8.2 % Eos % (Auto) 0.5 % Baso % (Auto) 0.3 % Immature Gran # (Auto) 0.05 H (0.00-0.02) K/uL Neut # (Auto) 7.87 H (1.4-6.5) K/uL Lymph # (Auto) 3.21 (1.2-3.4) K/uL Marin # (Auto) 1.00 H (0.11-0.59) K/uL Eos # (Auto) 0.06 (0-0.5) K/uL Baso # (Auto) 0.04 (0-0.2) K/uL Platelet Estimate Normal (Normal) Hypochromasia Present Sodium 143 (136-145) mmol/L Potassium 4.4 (3.5-5.1) mmol/L Chloride 106 (98-107) mmol/L Carbon Dioxide 26 (21-32) mmol/L Anion Gap 11.0 (3-11) BUN 21 H (7-18) mg/dl Creatinine 0.80 (0.6-1.2) mg/dl Est Cr Clr Drug Dosing 99.5 ml/min Est GFR ( Amer) 95.5 Est GFR (Non-Af Amer) 82.4 BUN/Creatinine Ratio 25.9 H (10-20) Glucose 99 (70-99) mg/dl Calcium 9.5 (8.5-10.1) mg/dl Total Bilirubin 0.3 (0.2-1) mg/dl AST 26 (15-37) U/L ALT 24 (12-78) U/L Alkaline Phosphatase 137 H (45-117) U/L Troponin I < 0.015 (0-0.045) ng/ml Total Protein 7.5 (6.4-8.2) gm/dl Albumin 3.4 (3.4-5.0) gm/dl Globulin 4.1 H (2.5-4.0) gm/dl Albumin/Globulin Ratio 0.8 L (0.9-2) Urine Color Yellow Urine Appearance Clear (Clear) Urine pH 5.0 (4.5-7.5) Ur Specific Murray 1.028 (1.000-1.030) Urine Protein 2+ H (Negative) Urine Glucose (UA) Negative (Negative) Urine Ketones Negative (Negative) Urine Blood Trace H (Negative) Urine Nitrite Negative (Negative) Urine Bilirubin Negative (Negative) Urine Urobilinogen Negative (Negative) Ur Leukocyte Esterase Negative (Negative) Urine WBC (Auto) 1-5 (0-5) /hpf Urine RBC (Auto) 0-4 (0-4) /hpf U Hyaline Cast (Auto) 1-5 (0-5) /lpf U Epithel Cells (Auto) >30 H (0-5) /lpf Urine Bacteria (Auto) Negative (Negative) Digoxin (0.8-2.0) ng/ml 10/06/18 Range/Units 22:07 WBC (4.8-10.8) K/uL RBC (4.2-5.4) M/uL Hgb (12.0-16.0) g/dL Hct (37-47) % MCV (80-100) fL MCH (25-34) pg MCHC (32-36) g/dL RDW Std Deviation (36.4-46.3) fL RDW Coeff of Logan (11.5-14.5) % Plt Count (130-400) K/uL MPV (7.4-10.4) fL Immature Gran % (Auto) % Neut % (Auto) % Lymph % (Auto) % Marin % (Auto) % Eos % (Auto) % Baso % (Auto) % Immature Gran # (Auto) (0.00-0.02) K/uL Neut # (Auto) (1.4-6.5) K/uL Lymph # (Auto) (1.2-3.4) K/uL Marin # (Auto) (0.11-0.59) K/uL Eos # (Auto) (0-0.5) K/uL Baso # (Auto) (0-0.2) K/uL Platelet Estimate (Normal) Hypochromasia Sodium (136-145) mmol/L Potassium (3.5-5.1) mmol/L Chloride (98-107) mmol/L Carbon Dioxide (21-32) mmol/L Anion Gap (3-11) BUN (7-18) mg/dl Creatinine (0.6-1.2) mg/dl Est Cr Clr Drug Dosing ml/min Est GFR ( Amer) Est GFR (Non-Af Amer) BUN/Creatinine Ratio (10-20) Glucose (70-99) mg/dl Calcium (8.5-10.1) mg/dl Total Bilirubin (0.2-1) mg/dl AST (15-37) U/L ALT (12-78) U/L Alkaline Phosphatase (45-117) U/L Troponin I (0-0.045) ng/ml Total Protein (6.4-8.2) gm/dl Albumin (3.4-5.0) gm/dl Globulin (2.5-4.0) gm/dl Albumin/Globulin Ratio (0.9-2) Urine Color Urine Appearance (Clear) Urine pH (4.5-7.5) Ur Specific Murray (1.000-1.030) Urine Protein (Negative) Urine Glucose (UA) (Negative) Urine Ketones (Negative) Urine Blood (Negative) Urine Nitrite (Negative) Urine Bilirubin (Negative) Urine Urobilinogen (Negative) Ur Leukocyte Esterase (Negative) Urine WBC (Auto) (0-5) /hpf Urine RBC (Auto) (0-4) /hpf U Hyaline Cast (Auto) (0-5) /lpf U Epithel Cells (Auto) (0-5) /lpf Urine Bacteria (Auto) (Negative) Digoxin 0.6 L (0.8-2.0) ng/ml Imaging Data Radiologist's Impression: Radiology results as stated below per my review and the radiologist's interpretation: SINGLE VIEW CHEST CLINICAL HISTORY: Dyspnea. FINDINGS: An AP, portable, upright chest radiograph is compared to study dated 09/04/2018. The examination is degraded by portable technique and patient rotation. A 2-lead cardiac AICD is unchanged in position. The heart is enlarged and there is atherosclerotic calcification of the thoracic aorta. There is pulmonary vascular congestion and interstitial edema. There are layering pleural effusions with bibasilar consolidation. No pneumothorax is seen. The skeletal structures are osteopenic. The bony thorax is grossly intact. IMPRESSION: 1. Cardiomegaly and AICD with evidence of congestive failure and interstitial edema. 2. There are small layering pleural effusions with bibasilar consolidation. Electronically signed by: Sunny Williamson M.D. 10/06/2018 10:15 PM ECG Data Attestation: I personally reviewed and interpreted this ECG as follows: Indication: SOB/dyspnea Rate (beats per minute): 120 Rhythm: atrial fibrillation Findings: no ST elevation and no ectopy Blood Pressure Blood Pressure Findings: Elevated blood pressure Blood Pressure Disposition: Referred to patients primary care provider MDM Narrative This is a 57-year-old female who presents to the ED with a chief complaint of shortness of breath. Her symptoms started today. She typically uses 3 L of oxygen at home. She has a history of congestive heart failure. She states that she is easily fatigued and she has been sweating. The patient is tachycardic with a heart rate of 125. Her respiratory rate was originally documented at 48. An EKG shows A. fib at a heart rate of 120. Chest x-ray reveals some bilateral small basilar consolidations. Urine did not show infection. White blood cell count was 12.2. Troponin was negative. The patient was told the results. Blood cultures were unobtainable because the patient was a poor IV stick and blood draw. They had to use pediatric tubes for some of the blood work. The patient did not require supplemental oxygen but remained tachycardic with A. fib in the 120s. Because of her history of congestive heart failure she was not loaded with the 30 cc/kg of saline given IV fluid boluses here. The patient was given IV Levaquin and IV Zosyn. She was also given 5 mg of IV Lopressor for her rapid A. fib. Because of the patient's fever, tachycardia and tachypnea as well as her overall symptomatology, she will be seen by the hospitalist for further inpatient evaluation and care. Impression & Plan Pneumonia, Shortness of breath, Atrial fibrillation with RVR Discharge Plan Visit Data Chief Complaint: Shortness of Breath/Dyspnea Stated Complaint: SOB ED Provider: Regino Ortiz Discharge Problem: Pneumonia, Shortness of breath, Atrial fibrillation with RVR Patient Disposition: Being Evaluated by Hospitalist Forms Stand Alone Forms: [facility] Prescriptions Prescriptions: No Action colchicine [Colcrys] 0.6 mg Tablet 0.6 mg PO BID Qty: 60 RF: 2 spironolactone 25 mg Tablet 12.5 mg PO DAILY RF: 0 benzonatate [Tessalon Perles] 100 mg Capsule 100 mg PO TID PRN (Reason: cough) Qty: 30 RF: 0 carvedilol 6.25 mg tablet 6.25 mg PO BID RF: 0 metoprolol succinate 100 mg capsule,sprinkle,ER 24hr 100 mg PO BID RF: 0 Spiriva with HandiHaler 18 mcg Capsule, W/Inhalation Device 1 puff inhalation QAM 30 Days Qty: 30 RF: 3 Entresto 24-26 mg Tablet 1 tab PO BID 30 Days Qty: 60 RF: 3 furosemide 40 mg tablet 40 mg PO DAILY Qty: 0 RF: 0 Symbicort 160-4.5 mcg/actuation Hfa Aerosol Inhaler 2 puff inhalation BID 30 Days Qty: 1 RF: 3 atorvastatin 10 mg Tablet 10 mg PO DAILY RF: 0 docusate sodium [Colace] 100 mg Capsule 100 mg PO BID RF: 0 omeprazole 20 mg Capsule,Delayed Release(Dr/Ec) 20 mg PO DAILY RF: 0 digoxin 125 mcg Tablet 0.125 mg PO DAILY RF: 0 albuterol sulfate 90 mcg/actuation HFA aerosol inhaler 2 inha INH QID PRN (Reason: shortness of breath or wheezing) Qty: 6.7 RF: 1 Referrals Referrals: Antonio Oliver MD [Primary Care Provider] - Discharge Problem: Pneumonia Qualifiers: Pneumonia type: due to unspecified organism Laterality: bilateral Lung locati on: lower lobe of lung Qualified Code(s): J18.1 - Lobar pneumonia, unspecified organism The scribe's documentation has been prepared under my direction and personally reviewed by me in its entirety. I confirm that the note above accurately reflects all work, treatment, procedures, and medical decision making performed by me.
--- NOTE | 2018-10-07 01:14 | History & Physical Report ---
Date of Service October 07, 2018 Assessment & Plan (1) Pneumonia: 57 year old female with a past medical history of chronic systolic CHF, a.fib, biV pacer placement, pulmonary HTN, COPD, pericardial effusion, and schizoaffective disorder who presents to the emergency department due to worsening shortness of breath today Concern for RML PNA -Afebrile WBC 12.2 -Chest x-ray with right middle lobe infiltrate -Given Levaquin in the emergency room -On Levaquin, DuoNeb every 6 hours scheduled, guaifenesin -O2 requirement at baseline 3 L Sob likely 2/2 PNA vs CHF, pulmonary hypertension, and COPD -PFTs done inpatient - FEV1/FVC of 74% -Continue Spiriva and symbicort -Patient chronically on 3L of oxygen at home, no increased requirements here CHF/nonischemic cardiomyopathy/AICD/pulmonary hypertension -ECHO w/EF of 15 to 20% -Troponin negative -Chest x-ray cardiomegaly AICD evidence of congestive failure and interstitial edema small pleural effusion -Continue home Lasix 40 mg twice daily p.o. Given Lasix 20 mg IV x1 -continue metoprolol, Entresto, spironolactone Atrial Fibrillation -continue digoxin, metoprolol and xarelto Depression/Schizoaffective Disorder -continue seroquel and trazodone Diabetes Mellitus -HbA1c 6% in 08/2018 -pt on metformin at home - BSG checks and insulin SS GERD -continue omeprazole Hypercholesterolemia -continue daily atorvastatin Peripheral Neuropathy -continue gabapentin Diet DM2 Code full Disposition MedSurg telemetry DVT prophylaxis SCD Xarelto (2) Atrial fibrillation with RVR: (3) Acute on chronic systolic and diastolic heart failure, NYHA class 4: (4) Pulmonary hypertension: (5) Nonischemic cardiomyopathy: (6) Diabetes: (7) Morbid obesity: (8) Chronic respiratory failure with hypoxia: (9) Presence of single chamber implantable cardioverter-defibrillator (ICD): (10) Schizoaffective disorder: (11) GERD (gastroesophageal reflux disease): (12) COPD (chronic obstructive pulmonary disease): History of Present Illness Chief Complaint: Shortness of breath Primary Care Provider: Antonio Oliver MD 57 year old female with a past medical history of chronic systolic CHF, a.fib, biV pacer placement, pulmonary HTN, COPD, pericardial effusion, and schizoaffective disorder who presents to the emergency department due to worsening shortness of breath today Reports worsening shortness of breath today at home. Difficult to minimally exert herself such as going to the bathroom. Cannot catch her breath or more anxious. Reports feeling well for about a month and then today feeling worse again. Associated with sweating Denies any fever chills headache lightheadedness chest pain nausea vomiting abdominal pain troubles with bowel movements or urinary symptoms Allergies Allergy/AdvReac Type Severity Reaction Status Date / Time fentanyl Allergy Mild RASH,ITCHIN Verified 10/07/18 00:43 G Home Medications Home Medications Medication Instructions Recorded Confirmed Type atorvastatin 10 mg PO DAILY 05/31/18 10/07/18 History digoxin 0.125 mg PO DAILY 05/31/18 10/07/18 History docusate sodium [Colace] 100 mg PO BID PRN 05/31/18 10/07/18 History omeprazole 20 mg PO QAM 05/31/18 10/07/18 History benzonatate [Tessalon Perles] 100 mg PO TID PRN #30 cap 08/28/18 10/07/18 Rx budesonide-formoterol [Symbicort] 2 puff INHALATION BID 30 Days #1 09/06/18 10/07/18 Rx inhaler sacubitril-valsartan [Entresto] 1 tab PO BID 30 Days #60 tab 09/06/18 10/07/18 Rx albuterol sulfate 2 inha INH Q4 PRN 10/07/18 10/07/18 History diphenhydramine HCl [Benadryl 25 mg PO DAILY 10/07/18 10/07/18 History Allergy] furosemide 40 mg PO BID 10/07/18 10/07/18 History gabapentin 600 mg PO BID 10/07/18 10/07/18 History hydroxyzine pamoate 50 mg PO HS 10/07/18 10/07/18 History metformin 500 mg PO BID 10/07/18 10/07/18 History metoprolol succinate 100 mg PO BID 10/07/18 10/07/18 History quetiapine 50 mg PO DAILY 10/07/18 10/07/18 History quetiapine 300 mg PO HS 10/07/18 10/07/18 History rivaroxaban [Xarelto] 20 mg PO DAILY 10/07/18 10/07/18 History trazodone 200 mg PO HS 10/07/18 10/07/18 History Past Med/Surg History Medical History Permanent atrial fibrillation SOB (shortness of breath) (Acute) Depression Pulmonary hypertension Pericardial effusion (Acute) Severe mitral regurgitation Nonischemic cardiomyopathy Congestive heart failure with cardiomyopathy Diabetes Morbid obesity (Chronic) Chronic respiratory failure with hypoxia (Chronic) Schizoaffective disorder (Chronic) GERD (gastroesophageal reflux disease) COPD (chronic obstructive pulmonary disease) (Acute) Chronic systolic heart failure PTSD (post-traumatic stress disorder) History of pulmonary embolism Asthma (Chronic) CHF (congestive heart failure) (Chronic) 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% per echo 06/06/18; non-obstructive CAD per cath 2006 HTN (hypertension) (Chronic) PTSD (post-traumatic stress disorder) (Chronic) Atrial fibrillation Diabetes type 2, controlled patient denies having diabetes, does not want further testing even though she is prescribed Metformin GERD (gastroesophageal reflux disease) Glaucoma Morbid obesity Pulmonary embolism 2013 while living in [place] Schizoaffective disorder Ventricular arrhythmia Surgical History Presence of single chamber implantable cardioverter-defibrillator (ICD) Pacemaker (Chronic) AICD (automatic cardioverter/defibrillator) present S/P ORIF (open reduction internal fixation) fracture ankle, left S/P tubal ligation Family History Mother , in her 70s Lung cancer from this Congestive heart failure (CHF) Breast cancer Father No problems noted. 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; was in [employer] x 7 yr Other Information That Helps Us Care for You: No other: lives in [place] Feels Safe at Home: Yes Safety Concerns: Feels Safe At This Time Smoking Status: Former smoker Cigarettes Per Day: <1 ppd Do You Dip or Chew Tobacco: No Second Hand Exposure: No Tobacco Cessation Education Requested by Patient: No Hx Alcohol Use: Yes Alcohol type: hard liquor Alcohol Intake Frequency Comment: weekends only Hx Substance Use: No Review of Systems Review of Systems: As per HPI Physical Exam Physical Exam: General: Appears in mild distress and tachypneic CV: Tachycardic with regular rhythm, no m/r/g PULM: Tachypneic with mild respiratory distress, CTAB with diminished breath sounds equal breath sounds bilaterally ABDOMEN: +BS, non-distended, non-tender to palpation in all quadrants LE: no calf TTP, no LE edema Results & Data Vital Signs (Past 12 Hours) Vital Signs Temp Pulse Resp BP Pulse Ox 10/06/18 23:36 133 H 119/98 10/06/18 22:38 131 H 132/112 H 10/06/18 22:37 72 140/100 100 10/06/18 22:30 129 H 38 H 97 10/06/18 22:20 114 H 29 H 94 10/06/18 22:10 121 H 58 H 96 10/06/18 22:00 115 H 37 H 98 10/06/18 21:50 118 H 51 H 98 10/06/18 21:40 113 H 30 H 98 10/06/18 21:30 108 H 32 H 99 10/06/18 21:20 112 H 31 H 98 10/06/18 21:10 122 H 98 10/06/18 21:00 119 H 98 10/06/18 20:55 119 H 43 H 99 10/06/18 20:20 98 10/06/18 20:09 36.5 C 125 H 48 H 144/97 H 98 10/06/18 20:07 128 H 50 H 144/97 H 99 Laboratory Results Abnormal lab results 10/06/18 10/06/18 10/06/18 Range/Units 21:29 22:07 22:07 WBC 12.23 H (4.8-10.8) K/uL RBC 5.48 H (4.2-5.4) M/uL MCV 79.9 L (80-100) fL RDW Std Deviation 54.7 H (36.4-46.3) fL RDW Coeff of Logan 18.8 H (11.5-14.5) % Immature Gran # (Auto) 0.05 H (0.00-0.02) K/uL Neut # (Auto) 7.87 H (1.4-6.5) K/uL Nye # (Auto) 1.00 H (0.11-0.59) K/uL BUN 21 H (7-18) mg/dl BUN/Creatinine Ratio 25.9 H (10-20) Alkaline Phosphatase 137 H (45-117) U/L Globulin 4.1 H (2.5-4.0) gm/dl Albumin/Globulin Ratio 0.8 L (0.9-2) Urine Protein 2+ H (Negative) Urine Blood Trace H (Negative) U Epithel Cells (Auto) >30 H (0-5) /lpf Digoxin (0.8-2.0) ng/ml 10/06/18 Range/Units 22:07 WBC (4.8-10.8) K/uL RBC (4.2-5.4) M/uL MCV (80-100) fL RDW Std Deviation (36.4-46.3) fL RDW Coeff of Logan (11.5-14.5) % Immature Gran # (Auto) (0.00-0.02) K/uL Neut # (Auto) (1.4-6.5) K/uL Nye # (Auto) (0.11-0.59) K/uL BUN (7-18) mg/dl BUN/Creatinine Ratio (10-20) Alkaline Phosphatase (45-117) U/L Globulin (2.5-4.0) gm/dl Albumin/Globulin Ratio (0.9-2) Urine Protein (Negative) Urine Blood (Negative) U Epithel Cells (Auto) (0-5) /lpf Digoxin 0.6 L (0.8-2.0) ng/ml Diagnostic Findings SINGLE VIEW CHEST CLINICAL HISTORY: Dyspnea. FINDINGS: An AP, portable, upright chest radiograph is compared to study dated 09/04/2018. The examination is degraded by portable technique and patient rotation. A 2-lead cardiac AICD is unchanged in position. The heart is enlarged and there is atherosclerotic calcification of the thoracic aorta. There is pulmonary vascular congestion and interstitial edema. There are layering pleural effusions with bibasilar consolidation. No pneumothorax is seen. The skeletal structures are osteopenic. The bony thorax is grossly intact. IMPRESSION: 1. Cardiomegaly and AICD with evidence of congestive failure and interstitial edema. 2. There are small layering pleural effusions with bibasilar consolidation. Code Status & VTE Plan Code Status Full VTE Prophylaxis Plan VTE Prophylaxis will be ordered: Yes Supervising Physician Co-Signing Physician Notes Attending addendum: I have physically seen this patient, have supervised the medical residents activities, and agree with the H&P unless as otherwise noted. Assessment and Plan: Pneumonia- Duonebs every 4 hours while awake and every 2 hours when necessary. Levofloxacin 500 mg IV daily. Baseline oxygen 3 L O2 at home, titrate to keep pulse ox 90 to 94%. Serial CBC with differential. Continue Spiriva and Symbicort as at home. CAD/CHF/nonischemic cardiomyopathy/AICD/pulmonary hypertension- Continue metoprolol, Entresto, spironolactone and Lasix. Follow serial troponins Remainder of orders notations as noted. Resident Activity Tracking Resident Involvement: Resident Care Provided Care Provided: Adult Hospital Medicine (1) Diabetes Diabetes mellitus complication status: without complication Diabetes mellitus buttermaker insulin use: without buttermaker use Diabetes mellitus type: type 2 Qualified Code(s): E11.9 - Type 2 diabetes mellitus without complications (2) Schizoaffective disorder Schizoaffective disorder type: other Qualified Code(s): F25.8 - Other schizoaffective disorders (3) COPD (chronic obstructive pulmonary disease) COPD type: unspecified COPD Qualified Code(s): J44.9 - Chronic obstructive pulmonary disease, unspecified (4) GERD (gastroesophageal reflux disease) Esophagitis presence: esophagitis presence not specified Qualified Code(s): K21.9 - Gastro-esophageal reflux disease without esophagitis (5) Pneumonia Laterality: bilateral Lung location: lower lobe of lung Pneumonia type: due to unspecified organism Qualified Code(s): J18.1 - Lobar pneumonia, unspecified organism
[2018-10-07] MEDS ORDERED: ALBUTEROL HFA 8 GM INHALER INH PRN (02:53)
[2018-10-07] MEDS ORDERED: DOCUSATE SODIUM 100 MG CAP PO PRN (02:53)
[2018-10-07] MEDS ORDERED: XOPENEX/ATROVENT 0.63mg/0.5MG NEB COMBO NEB SCH (02:53)
[2018-10-07] MEDS ORDERED: POLYETHYLENE (MIRALAX) 17 GM PACK PO PRN (02:53)
[2018-10-07] MEDS ORDERED: FUROSEMIDE 20 MG in SYRINGE 0 ML IV ONE (03:00)
[2018-10-07] MEDS: LEVALBUTEROL HCL 0.63 MG/3 ML NEB NEB SCH ×4 (04:30→19:41)
[2018-10-07] MEDS: IPRATROPIUM BROMIDE NEB SOLN 0.02% 2.5 ML VIAL INH SCH ×4 (04:30→19:41)
[2018-10-07] MEDS: SIMETHICONE 80 MG CHEW PO SCH ×4 (05:07→23:13)
[2018-10-07 05:51] LABS: Base Excess VBG 4.8 mEq/L; HCO3 VBG 31 mmol/L; PCO2 VBG 49 mmHg (38-50); PO2 VBG 20 mmHg; pH VBG 7.41 (7.36-7.41)
[2018-10-07 05:52] LABS: Oxygen Saturation VBG < 60.0 %
[2018-10-07 06:35] LABS: Basophils # (auto) 0.03 K/uL (0-0.2); Basophils % (auto) 0.2 %; Hematocrit (blood only) 41.3 % (37-47); Hemoglobin 13.5 g/dL (12.0-16.0); Immature Granulocytes # (auto) 0.04 K/uL (0.00-0.02); Immature Granulocytes % (auto) 0.3 %; Lymphocytes % (auto) 16.9 %; Mean Corpuscular Hgb Conc 32.7 g/dL (32-36); Mean Corpuscular Volume 80.5 fL (80-100); Mean Platelet Volume 10.2 fL (7.4-10.4); Monocytes # (auto) 0.85 K/uL (0.11-0.59); Monocytes % (auto) 6.8 %; Neutrophils # (auto) 9.39 K/uL (1.4-6.5); Neutrophils % (auto) 75.8 %; Platelet Count 226 K/uL (130-400); RDW Standard Deviation 55.3 fL (36.4-46.3); Red Blood Count 5.13 M/uL (4.2-5.4); White Blood Count 12.41 K/uL (4.8-10.8)
[2018-10-07 06:50] LABS: INR 1.1 (0.9-1.1); Partial Thromboplastin Time 26.5 Seconds (21.0-31.0); Prothrombin Time 11.4 Seconds (9.0-12.0)
[2018-10-07 07:14] LABS: BUN Creatinine Ratio 22.8 (10-20); Calcium 9.7 mg/dl (8.5-10.1); Creatinine Clr Calc Pharmacy 82.1 ml/min; Est GFR (African American) 75.7; Est GFR (Non-African American) 65.3; Potassium 3.8 mmol/L (3.5-5.1)
[2018-10-07] MEDS: INSULIN ASPART 100 UNITS/ML 3 ML PEN SC SCH ×4 (08:40→21:28)
[2018-10-07] MEDS: RIVAROXABAN 20 MG TAB PO SCH (08:41)
[2018-10-07] MEDS: PANTOprazole 40 MG TAB PO SCH (08:41)
[2018-10-07] MEDS: FUROSEMIDE 40 MG TAB PO SCH ×2 (08:42→17:44)
[2018-10-07] MEDS: guaiFENesin 600 MG TABCR PO SCH ×2 (08:42→20:42)
[2018-10-07] MEDS: ATORVASTATIN 10 MG TAB PO SCH (08:43)
[2018-10-07] MEDS: SACUBITRIL-VALSARTAN 24-26 MG TAB PO SCH ×2 (08:43→20:43)
[2018-10-07] MEDS: QUETIAPINE FUMARATE 25 MG TABLET PO SCH (08:43)
[2018-10-07] MEDS: GABAPENTIN 600 MG TAB PO SCH ×2 (08:43→20:40)
[2018-10-07] MEDS: BUDESONIDE/FORMOTEROL FUMARATE 160/4.5 60 PUFFS/INHALER INH SCH ×2 (08:44→20:43)
[2018-10-07] MEDS: TIOTROPIUM BROMIDE 5 PUFF/90 MCG INH INH SCH (08:44)
[2018-10-07] MEDS: ACETAMINOPHEN 325 MG TAB PO PRN ×2 (08:51→20:38)
[2018-10-07] MEDS ORDERED: METOPROLOL SUCC 50MG EXT REL TAB PO SCH (09:00)
[2018-10-07] MEDS ORDERED: BACLOFEN 10 MG TAB PO STA (13:40)
--- NOTE | 2018-10-07 15:34 | History & Physical Bridge Note ---
Date of Service October 07, 2018 History & Physical Bridge Note I have examined the patient, reviewed the History & Physical and in the interval since the performance of the History & Physical I have noted the following changes of clinical significance: Patient feeling better, breathing easier since admission, responding well to nebulizers Lungs are clear to auscultation She says she really didn't diurese since admission She says that she was doing well since discharge one month ago, until one of her home care nurses was coughing around her Discussed that there has been a viral bronchitis going around, for someone like her any slight URI will send her over the edge I personally reviewed the CXR, no clear infiltrate, low suspicion for pneumonia No fever, WBC only 12k and no left shift c/o some back pain, will give a dose of Baclofen as lumbar paraspinal muscle really tight continue Levaquin for now, would only give 5 day course plan for repeat 2 view CXR tomorrow AM to help determine if there is infiltrate
[2018-10-07] MEDS: DIGOXIN 0.125 MG TAB PO SCH (15:54)
[2018-10-07] MEDS ORDERED: METOPROLOL TARTRATE 1 MG/ML VIAL IV STA (17:44)
[2018-10-07] MEDS ORDERED: METOPROLOL SUCC 50MG EXT REL TAB PO STA (17:44)
[2018-10-07] MEDS: BENZONATATE 100 MG CAPSULE PO PRN (17:44)
[2018-10-07] MEDS: TRAZODONE HCL 100 MG TAB PO SCH (20:42)
[2018-10-07] MEDS: QUETIAPINE FUMARATE 300 MG TABLET PO SCH (20:42)
[2018-10-07] MEDS: LEVOFLOXACIN/D5W 500 MG/100 ML BAG IV SCH (23:13)
[2018-10-08] MEDS: LEVALBUTEROL HCL 0.63 MG/3 ML NEB NEB SCH ×4 (02:14→19:06)
[2018-10-08] MEDS: IPRATROPIUM BROMIDE NEB SOLN 0.02% 2.5 ML VIAL INH SCH ×4 (02:14→19:06)
[2018-10-08] MEDS: ACETAMINOPHEN 325 MG TAB PO PRN (02:22)
[2018-10-08] MEDS: SIMETHICONE 80 MG CHEW PO SCH ×3 (06:21→17:45)
[2018-10-08] MEDS: INSULIN ASPART 100 UNITS/ML 3 ML PEN SC SCH ×4 (07:52→20:46)
[2018-10-08] MEDS: PANTOprazole 40 MG TAB PO SCH (07:53)
[2018-10-08] MEDS: BENZONATATE 100 MG CAPSULE PO PRN ×2 (07:54→20:36)
[2018-10-08] MEDS: GABAPENTIN 600 MG TAB PO SCH ×2 (07:54→20:36)
[2018-10-08] MEDS: ATORVASTATIN 10 MG TAB PO SCH (07:54)
[2018-10-08] MEDS: QUETIAPINE FUMARATE 25 MG TABLET PO SCH (07:54)
[2018-10-08] MEDS: TIOTROPIUM BROMIDE 5 PUFF/90 MCG INH INH SCH (07:55)
[2018-10-08] MEDS: FUROSEMIDE 40 MG TAB PO SCH ×2 (07:55→17:05)
[2018-10-08] MEDS: BUDESONIDE/FORMOTEROL FUMARATE 160/4.5 60 PUFFS/INHALER INH SCH ×2 (07:55→20:41)
[2018-10-08] MEDS: RIVAROXABAN 20 MG TAB PO SCH (07:55)
[2018-10-08] MEDS: SACUBITRIL-VALSARTAN 24-26 MG TAB PO SCH ×2 (07:56→20:39)
[2018-10-08] MEDS: guaiFENesin 600 MG TABCR PO SCH ×2 (07:56→20:36)
[2018-10-08] MEDS: METOPROLOL SUCC 50MG EXT REL TAB PO SCH ×2 (07:56→20:38)
--- NOTE | 2018-10-08 10:26 | XRay Report ---
TWO VIEW CHEST CLINICAL HISTORY: Hypoxia. FINDINGS: PA and lateral chest radiographs are compared to study dated 10/06/2018 and correlated with c hest CT dated 08/18/2018. The A 2-lead cardiac AICD is unchanged in position and partially obscures th e left upper chest. The heart is enlarged and there is atherosclerotic calcification of the thoracic aorta. There is pulmonary vascular congestion and mild interstitial edema. There are layering pleural effusions with bibasilar consolidation. No pneumothorax is seen. The skeletal structures are osteope corie. The bony thorax is grossly intact. IMPRESSION: 1. Cardiomegaly and AICD with evidence of congestive failure and mild interstitial edema. 2. There are small layering pleural effusions with bibasilar consolidation. Electronically signed by: Sunny Williamson M.D. 10/08/2018 10:24 AM
--- NOTE | 2018-10-08 14:16 | Hospitalist Progress Note ---
Date of Service October 08, 2018 Assessment & Plan (1) Pneumonia: 57 year old female with a past medical history of chronic systolic CHF, a.fib, biV pacer placement, pulmonary HTN, COPD, pericardial effusion, and schizoaffective disorder who presents to the emergency department due to worsening shortness of breath today Concern for RML PNA -Afebrile WBC 12.2 on admission and improving -Chest x-ray with right middle lobe infiltrate -Given Levaquin in the emergency room -On Levaquin, DuoNeb every 6 hours scheduled, guaifenesin -O2 requirement at baseline 3 L Sob likely 2/2 PNA vs CHF, pulmonary hypertension, and COPD -PFTs done inpatient - FEV1/FVC of 74% -Continue Spiriva and symbicort -Patient chronically on 3L of oxygen at home, currently at baseline CHF/nonischemic cardiomyopathy/AICD/pulmonary hypertension -ECHO w/EF of 15 to 20% -Troponin negative -Chest x-ray cardiomegaly AICD evidence of congestive failure and interstitial edema small pleural effusion -Continue home Lasix 40 mg twice daily p.o. Given Lasix 20 mg IV x1 -continue metoprolol, Entresto, spironolactone Atrial Fibrillation -continue digoxin, metoprolol and xarelto Depression/Schizoaffective Disorder -continue seroquel and trazodone Diabetes Mellitus -HbA1c 6% in 08/2018 -pt on metformin at home - BSG checks and insulin SS GERD -continue omeprazole Hypercholesterolemia -continue daily atorvastatin Peripheral Neuropathy -continue gabapentin Diet DM2 Code full DVT prophylaxis SCD Xarelto (2) Atrial fibrillation with RVR: (3) Acute on chronic systolic and diastolic heart failure, NYHA class 4: (4) Pulmonary hypertension: (5) Nonischemic cardiomyopathy: (6) Diabetes: (7) Morbid obesity: (8) Chronic respiratory failure with hypoxia: (9) Presence of single chamber implantable cardioverter-defibrillator (ICD): (10) Schizoaffective disorder: (11) GERD (gastroesophageal reflux disease): (12) COPD (chronic obstructive pulmonary disease): Subjective Pt states she is feeling better today. She was able to get OOB and wash up today, which she was not able to do yesterday. She did get SOB with this, but states that this is her usual. She did not finish washing up due to feeling tired and weak, which is not her usual. She wears 3L O2 continuous at baseline. She did have some diarrhea today, which was new for her. She also noted some b/l knee swelling. No issues with PO. Pt denies fever, SOB, chest pain, abd pain, n/v, LE pain. Review of Systems Review of Systems: Pertinent positives and negatives reviewed in HPI--all others negative Physical Exam Constitutional: WD/WN, vitals as above Eyes: normal visual hammond by confrontation and + anicteric sclerae Neck: normal visual inspection and trachea midline Respiratory: normal respiratory effort, lungs clear to auscultation Cardiovascular: Rate/Rhythm: regular rate and regular rhythm Gastrointestinal (Abdomen): Inspection/Auscultation: abdomen not distended Percussion/Palpation: abdomen soft; abdomen nontender Musculoskeletal: Head/Neck/Chest: normocephalic and head atraumatic b/l trace edema around knees, no pedal edema, peripheral pulses intact Skin: no rashes, warm and dry Neurologic: awake; not confused Speech / Cognition: normal speech Psychiatric: A+Ox3, euthymic affect Results & Data Vital Signs (Past 12 Hours) Vital Signs Temp Pulse Pulse Resp BP BP Pulse Ox 10/08/18 13:44 95 H 16 95 10/08/18 11:54 36.7 C 92 H 18 102/70 97 10/08/18 07:22 82 16 96 10/08/18 07:00 36.5 C 89 18 90/63 L 98 10/08/18 04:18 37.3 C 73 20 89/66 L 98 10/08/18 02:14 85 18 95 (1) Pneumonia Laterality: bilateral Lung location: lower lobe of lung Pneumonia type: due to unspecified organism Qualified Code(s): J18.1 - Lobar pneumonia, unspecified organism (2) Diabetes Diabetes mellitus type: type 2 Diabetes mellitus terminal operator insulin use: without terminal operator use Diabetes mellitus complication status: without complication Qualified Code(s): E11.9 - Type 2 diabetes mellitus without complications (3) Schizoaffective disorder Schizoaffective disorder type: other Qualified Code(s): F25.8 - Other schizoaffective disorders (4) GERD (gastroesophageal reflux disease) Esophagitis presence: esophagitis presence not specified Qualified Code(s): K21.9 - Gastro-esophageal reflux disease without esophagitis (5) COPD (chronic obstructive pulmonary disease) COPD type: unspecified COPD Qualified Code(s): J44.9 - Chronic obstructive pulmonary disease, unspecified
[2018-10-08] MEDS: DIGOXIN 0.125 MG TAB PO SCH (15:43)
[2018-10-08] MEDS: TRAZODONE HCL 100 MG TAB PO SCH (20:37)
[2018-10-08] MEDS: QUETIAPINE FUMARATE 300 MG TABLET PO SCH (21:25)
[2018-10-09] MEDS: LEVOFLOXACIN/D5W 500 MG/100 ML BAG IV SCH (00:07)
[2018-10-09] MEDS: SIMETHICONE 80 MG CHEW PO SCH ×2 (00:07→06:33)
[2018-10-09] MEDS: IPRATROPIUM BROMIDE NEB SOLN 0.02% 2.5 ML VIAL INH SCH ×2 (01:41→07:38)
[2018-10-09] MEDS: LEVALBUTEROL HCL 0.63 MG/3 ML NEB NEB SCH ×2 (01:41→07:38)
[2018-10-09] MEDS: FUROSEMIDE 40 MG TAB PO SCH (08:24)
[2018-10-09] MEDS: guaiFENesin 600 MG TABCR PO SCH (08:25)
[2018-10-09] MEDS: BUDESONIDE/FORMOTEROL FUMARATE 160/4.5 60 PUFFS/INHALER INH SCH (08:26)
[2018-10-09] MEDS: RIVAROXABAN 20 MG TAB PO SCH (08:26)
[2018-10-09] MEDS: TIOTROPIUM BROMIDE 5 PUFF/90 MCG INH INH SCH (08:26)
[2018-10-09] MEDS: PANTOprazole 40 MG TAB PO SCH (08:26)
[2018-10-09] MEDS: SACUBITRIL-VALSARTAN 24-26 MG TAB PO SCH (08:26)
[2018-10-09] MEDS: ATORVASTATIN 10 MG TAB PO SCH (08:26)
[2018-10-09] MEDS: QUETIAPINE FUMARATE 25 MG TABLET PO SCH (08:26)
[2018-10-09] MEDS: METOPROLOL SUCC 50MG EXT REL TAB PO SCH (08:26)
[2018-10-09] MEDS: GABAPENTIN 600 MG TAB PO SCH (08:26)
[2018-10-09] MEDS: INSULIN ASPART 100 UNITS/ML 3 ML PEN SC SCH (08:37)
--- NOTE | 2018-10-09 10:35 | Discharge Summary ---
Date of Service October 09, 2018 Admission HPI Per Admitting Provider 57 year old female with a past medical history of chronic systolic CHF, a.fib, biV pacer placement, pulmonary HTN, COPD, pericardial effusion, and schizoaffective disorder who presents to the emergency department due to wo rsening shortness of breath today Reports worsening shortness of breath today at home. Difficult to minimally exert herself such as going to the bathroom. Cannot catch her breath or more anxious. Reports feeling well for about a month and then today feeling worse again. Associated with sweating Denies any fever chills headache lightheadedness chest pain nausea vomiting abdominal pain troubles with bowel movements or urinary symptoms Principal Diagnosis Pt is feeling much improved today. She is still a bit SOB with exertion, but this is her usual. Pt noted b/l side pain "by the bottom of my lungs" yesterday that was improved with a warm blanket and resolved with heating pad application. She states this pain was similar to when she had PNA in the past. No further diarrhea. She is tolerating PO without issue. Knee swelling is resolved. Pt denies fever, chest pain, abd pain, n/v/c, LE pain. She feels she would like to go home. She has a dog that she is anxious to see. Discharge Exam Constitutional WD/WN, vitals as above Eyes normal visual hammond by confrontation and + anicteric sclerae Neck normal visual inspection and trachea midline Respiratory normal respiratory effort, lungs clear to auscultation Cardiovascular Rate/Rhythm: regular rate and regular rhythm Gastrointestinal (Abdomen) Inspection/Auscultation: abdomen not distended Percussion/Palpation: abdomen soft; abdomen nontender Musculoskeletal Head/Neck/Chest: normocephalic and head atraumatic b/l knee swelling is resolved Skin no rashes, warm and dry Neurologic awake; not confused Speech / Cognition: normal speech Psychiatric A+Ox3, euthymic affect Discharge Data Allergies Allergy/AdvReac Type Severity Reaction Status Date / Time fentanyl Allergy Mild RASH,ITCHIN Verified 10/07/18 00:43 G Consultations 10/06/18 23:49 ED Decision to Admit Stat 10/08/18 14:18 Consult Case Management - Discharge Planning Routine Hospital Course (1) Pneumonia: 57 year old female with a past medical history of chronic systolic CHF, a.fib, biV pacer placement, pulmonary HTN, COPD, pericardial effusion, and schizoaffective disorder who presents to the emergency department due to worsening shortness of breath today Concern for RML PNA -Afebrile WBC 12.2 on admission and improving -Chest x-ray with right middle lobe infiltrate -Given Levaquin in the emergency room, will finish course as outpt -On Levaquin, DuoNeb every 6 hours scheduled, guaifenesin -O2 requirement at baseline 3 L Sob likely 2/2 PNA vs CHF, pulmonary hypertension, and COPD -PFTs done inpatient - FEV1/FVC of 74% -Continue Spiriva and symbicort -Patient chronically on 3L of oxygen at home, currently at baseline CHF/nonischemic cardiomyopathy/AICD/pulmonary hypertension -ECHO w/EF of 15 to 20% -Troponin negative -Chest x-ray cardiomegaly AICD evidence of congestive failure and interstitial edema small pleural effusion -Continue home Lasix 40 mg twice daily p.o. Given Lasix 20 mg IV x1 -continue metoprolol, Entresto, spironolactone Atrial Fibrillation -continue digoxin, metoprolol and xarelto Depression/Schizoaffective Disorder -continue seroquel and trazodone Pt was on monitor during admission and no tele changes noted using these medications + levaquin Diabetes Mellitus -HbA1c 6% in 08/2018 -pt on metformin at home - BSG checks and insulin SS GERD -continue omeprazole Hypercholesterolemia -continue daily atorvastatin Peripheral Neuropathy -continue gabapentin Diet DM2 Code full DVT prophylaxis SCD Xarelto (2) Atrial fibrillation with RVR: (3) Acute on chronic systolic and diastolic heart failure, NYHA class 4: (4) Pulmonary hypertension: (5) Nonischemic cardiomyopathy: (6) Diabetes: (7) Morbid obesity: (8) Chronic respiratory failure with hypoxia: (9) Presence of single chamber implantable cardioverter-defibrillator (ICD): (10) Schizoaffective disorder: (11) GERD (gastroesophageal reflux disease): (12) COPD (chronic obstructive pulmonary disease): Total Time Total Time Spent Total Time Spent (In Minutes): >30 minutes Discharge Plan Discharge Items Patient Disposition: Home - Self-Care Reason For Visit: SOB Discharge Diagnosis: Pneumonia Discharge Goals: Decrease discomfort, Improve function and Increase independence Activity: Resume your previous activity Non-emergency contact: Primary Care Provider Call non-emergency contact if: you have any medication questions and your symptoms worsen Follow-up/Referrals: Antonio Oliver MD [Primary Care Provider] - 10/17/18 11:40 am (Please, follow up with Dr. Roper on TuesdayOctober 17 at 11:40 am. *If you need to change this appointment, call the office at [phone].) Catalina Almanza PA-C [Physician Department Of Sociology Chair] - 10/13/18 10:00 am (Please, follow up at [facility] Office with Re Almanza PA-C on TuesdayOctober 13 at 10:00 am. *If you need to change this appointment, call the office at [phone].) Diet: Heart Healthy Addtl Provider Instructions: You should be seen by your PCP in the next 1-2 weeks Our residential case manager is changing the appt that you missed today due to being in the hospital. They will let you know your new appt time. Prescriptions: New levofloxacin 750 mg tablet 750 mg PO DAILY 10 Days Qty: 10 RF: 0 Continued benzonatate [Tessalon Perles] 100 mg Capsule 100 mg PO TID PRN (Reason: cough) Qty: 30 RF: 0 Entresto 24-26 mg Tablet 1 tab PO BID 30 Days Qty: 60 RF: 3 Symbicort 160-4.5 mcg/actuation Hfa Aerosol Inhaler 2 puff inhalation BID 30 Days Qty: 1 RF: 3 metoprolol succinate 100 mg tablet extended release 24 hr 100 mg PO BID RF: 0 furosemide 40 mg tablet 40 mg PO BID RF: 0 metformin 500 mg tablet 500 mg PO BID RF: 0 gabapentin 600 mg tablet 600 mg PO BID RF: 0 albuterol sulfate 90 mcg/actuation HFA aerosol inhaler 2 inha INH Q4 PRN (Reason: trouble breathing) RF: 0 trazodone 100 mg tablet 200 mg PO HS RF: 0 diphenhydramine HCl [Benadryl Allergy] 25 mg Tablet 25 mg PO DAILY RF: 0 quetiapine 300 mg Tablet 300 mg PO HS RF: 0 hydroxyzine pamoate 50 mg Capsule 50 mg PO HS RF: 0 quetiapine 50 mg tablet 50 mg PO DAILY RF: 0 Xarelto 20 mg Tablet 20 mg PO DAILY RF: 0 atorvastatin 10 mg Tablet 10 mg PO DAILY RF: 0 docusate sodium [Colace] 100 mg Capsule 100 mg PO BID PRN (Reason: Constipation) RF: 0 omeprazole 20 mg Capsule,Delayed Release(Dr/Ec) 20 mg PO QAM RF: 0 digoxin 125 mcg Tablet 0.125 mg PO DAILY RF: 0 Stand-Alone Forms: [facility] Discharge Orders: Discharge Order (Routine); Ordered 10/09/18 Ordered By: Oma Giraldo Admission Data Admit Date/Time: 10/07/18 01:08 Attending Provider: Oma Giraldo Admit Provider: Micheal Kenny Primary Care Provider: Antonio Oliver V. Other Providers: Jack Hayward ; Micheal Kenny Service: Medical Other Interventions: Discharge Summary Assessment (RN) Last Done: 10/09/18 10:32 Pending Studies at Discharge: No DC Date/Time DO NOT enter until pt leaves facility: 10/09/18 12:05
== END 2018-10-09 12:05 | disposition home or self-care (01) | DRG 194 ==
LOC: ED 20:01 → 2N 10-07 01:08 → SUATTDRO 10-07 01:08 → 2N 10-07 02:11 → 4W 10-08 21:58

== ENCOUNTER 2019-01-02 20:01 | Inpatient (IN) ==
[2019-01-02] MEDS ORDERED: NITROGLYCERIN 2% OINTMENT 30GM TUBE EXT STA (20:47)
[2019-01-02] MEDS ORDERED: FUROSEMIDE 60 MG in SYRINGE 0 ML IV STA (20:47)
--- NOTE | 2019-01-02 21:09 | XRay Report ---
XR chest 1V portable CLINICAL HISTORY: sob dyspnea COMPARISON STUDY: 01/03/20001913 9:29 AM FINDINGS: Stable cardiomegaly. Unchanged findings of pulmonary edema. Probable left pleural effusion. IMPRESSION: Pulmonary edema. No change from the prior exam. The above report was generated using voice recognition software. It may contain grammatical, syntax or spelling errors. Electronically signed by: Osmar Kapoor M.D. 01/02/2019 9:07 PM
[2019-01-02 21:27] LABS: Basophils # (auto) 0.03 K/uL (0-0.2); Basophils % (auto) 0.3 %; Eosinophils # (auto) 0.11 K/uL (0-0.5); Eosinophils % (auto) 0.9 %; Hematocrit (blood only) 36.9 % (37-47); Immature Granulocytes # (auto) 0.02 K/uL (0.00-0.02); Immature Granulocytes % (auto) 0.2 %; Lymphocytes # (auto) 2.75 K/uL (1.2-3.4); Lymphocytes % (auto) 23.3 %; Mean Corpuscular Hgb Conc 32.5 g/dL (32-36); Mean Corpuscular Volume 88.1 fL (80-100); Mean Platelet Volume 9.8 fL (7.4-10.4); Monocytes # (auto) 0.66 K/uL (0.11-0.59); Monocytes % (auto) 5.6 %; Neutrophils # (auto) 8.25 K/uL (1.4-6.5); Neutrophils % (auto) 69.7 %; Platelet Count 267 K/uL (130-400); RDW Coefficient of Variation 17.3 % (11.5-14.5); RDW Standard Deviation 55.4 fL (36.4-46.3); Red Blood Count 4.19 M/uL (4.2-5.4); White Blood Count 11.82 K/uL (4.8-10.8)
[2019-01-02] MEDS ORDERED: FUROSEMIDE 40 MG/4 ML VIAL IV STA (21:27)
[2019-01-02 21:37] LABS: INR 1.3 (0.9-1.1); Partial Thromboplastin Time 27.1 Seconds (21.0-31.0); Prothrombin Time 13.1 Seconds (9.0-12.0)
[2019-01-02 21:44] LABS: Alanine Aminotransferase 13 U/L (12-78); Albumin Level 3.8 gm/dl (3.4-5.0); Aspartate Aminotransferase 11 U/L (15-37); BUN Creatinine Ratio 19.1 (10-20); Blood Urea Nitrogen 16 mg/dl (7-18); Carbon Dioxide 34 mmol/L (21-32); Chloride 100 mmol/L (98-107); Creatinine Clr Calc Pharmacy 92.4 ml/min; Est GFR (African American) 88.2; Est GFR (Non-African American) 76.1; Glucose 108 mg/dl (70-99); Magnesium 2.2 mg/dl (1.8-2.4); Potassium 3.3 mmol/L (3.5-5.1); Sodium 142 mmol/L (136-145)
[2019-01-02 21:45] LABS: Base Excess VBG 8.7 mEq/L; HCO3 VBG 35 mmol/L; PCO2 VBG 55 mmHg (38-50); PO2 VBG 23 mmHg; pH VBG 7.42 (7.36-7.41)
[2019-01-02 21:46] LABS: Oxygen Saturation VBG < 60.0 %
[2019-01-02 21:48] LABS: Albumin Globulin Ratio 0.8 (0.9-2); Alkaline Phosphatase 130 U/L (45-117); Bilirubin,Total 1.2 mg/dl (0.2-1); Globulin 4.6 gm/dl (2.5-4.0); NT Pro B Type Natriuretic Pept 4873 pg/ml (0-900); Total Protein 8.4 gm/dl (6.4-8.2); Troponin I < 0.015 ng/ml (0-0.045)
--- NOTE | 2019-01-02 22:09 | History & Physical Report ---
Date of Service January 02, 2019 Assessment & Plan (1) MONSALVE (dyspnea on exertion): Ms. Carson is a 58 year old female with PMH chronic systolic CHF (EF 15-20% Jul 2018) , a.fib, biV pacer placement, pulmonary HTN, COPD, chronic pericardial effusion, anxiety and schizoaffective disorder who presents to the emergency department earlier this morning and again this evening due to worsening shortness of breath. Denies cough, fevers or chills, chest pain or abdominal pain, no change in urinary or bowel habits. Increasing MONSALVE with her regular activities at home. Has been admitted to [facility] several times since May 2018, due to worsening shortness of breath. Is on 2-3L O2, and is at her basel ine oxygen need here. She is visibly short of breath and cannot catch her breath going from the bed to the bathroom. Does mention that she is noncompliant with inhalers because she believes they cause her blood sugar to be elevated, and also insurance does not cover them for her. Given 120mg IV lasix in ED with adequate output. MONSALVE -EXTENSIVE work up done in previous visits -- appears to be multifactorial CHF/pulm HTN/COPD/pericardial effusion/mixed with anxiety features -interestingly, pt is at her baseline O2 requirement at rest, however does become increasingly dyspnic while walking -pt's weight is not significantly elevated from her discharge weight, she appears to be at her dry weight -her afib is rate controlled -she is afebrile, and with only mild leukocytosis -BNP is elevated but not from what her baseline appears to be -thankfully no dynamic EKG changes, and her trop remains normal -is seen by both cardiology and pulmonology in the outpatient setting, was due to go to CHF clinic tomorrow Plan -initial CXR is mostly unchanged from previous - repeat in AM -diurese (received 120mg IV lasix in ED). Replete K+ -duonebs QID and q2h PRN -monitor outputs/weights -continuous O2 FEN/GI: heart healthy/T2DM/low sodium. Caution against fluids. DVT ppx: on xarelto for AF CODE STATUS: FULL DISPO: Med/tele. (2) Prediabetes: A1C 6.0 in August. -continue metformin. -T2DM diet. (3) CHF (congestive heart failure): EF 15% on last echo, as above -here for diuresis -plan as above (4) Permanent atrial fibrillation: -rate controlled, continue Digoxin, metoprolol (5) Pulmonary hypertension: (6) Pericardial effusion: (7) Schizoaffective disorder: continue home meds: trazodone, quetiapine, hydroxizine (8) COPD (chronic obstructive pulmonary disease): Duonebs as above (9) Oxygen dependent: 2-3 liters is baseline History of Present Illness Primary Care Provider: Antonio Oliver MD Ms. Carson is a 58 year old female with PMH chronic systolic CHF (EF 15-20% Jul 2018) , a.fib, biV pacer placement, pulmonary HTN, COPD, chronic pericardial effusion, anxiety and schizoaffective disorder who presents to the emergency department earlier this morning and again this evening due to worsening shortness of breath. Denies cough, fevers or chills, chest pain or abdominal pain, no change in urinary or bowel habits. Increasing MONSALVE with her regular activities at home. Has been admitted to [facility] several times since May 2018, due to worsening shortness of breath. Is on 2-3L O2, and is at her baseline oxygen need here. She is visibly short of breath and cannot catch her breath going from the bed to the bathroom. Allergies Allergy/AdvReac Type Severity Reaction Status Date / Time fentanyl Allergy Mild RASH,ITCHIN Verified 01/02/19 20:37 G Home Medications Home Medications Medication Instructions Recorded Confirmed Type atorvastatin 10 mg PO DAILY 05/31/18 01/02/19 History digoxin 0.125 mg PO DAILY 05/31/18 01/02/19 History omeprazole 20 mg PO QAM 05/31/18 01/02/19 History furosemide 40 mg PO BID 10/07/18 01/02/19 History gabapentin 600 mg PO BID 10/07/18 01/02/19 History hydroxyzine pamoate 50 mg PO HS 10/07/18 01/02/19 History metoprolol succinate 200 mg PO QAM 10/07/18 01/02/19 History quetiapine 300 mg PO HS 10/07/18 01/02/19 History trazodone 200 mg PO HS 10/07/18 01/02/19 History Entresto 1 tab PO DAILY 10/21/18 01/02/19 History docusate sodium 100 mg capsule 100 mg PO BID PRN #30 cap 12/15/18 01/02/19 Rx metformin 500 mg tablet 500 mg PO BID #60 tab 12/15/18 01/02/19 Rx rivaroxaban 20 mg tablet 20 mg PO DAILY #90 tab 12/15/18 01/02/19 Rx albuterol sulfate 2.5 mg/3 mL 2.5 mg INHALATION ONCE PRN #1 ml 01/01/19 01/02/19 History (0.083 %) solution for nebulization hydrocortisone 2.5 % topical cream 1 applic ID .INSERT 1 APPLICATORF 01/01/19 01/02/19 History with perineal applicator #1 gm diphenhydramine HCl [Benadryl 25 mg PO QAM 01/02/19 01/02/19 History Allergy] quetiapine [Seroquel] 100 mg PO QAM 01/02/19 01/02/19 History Past Med/Surg History Medical History Permanent atrial fibrillation SOB (shortness of breath) (Acute) Depression Pulmonary hypertension Pericardial effusion (Acute) Severe mitral regurgitation Nonischemic cardiomyopathy Congestive heart failure with cardiomyopathy Diabetes Morbid obesity (Chronic) Chronic respiratory failure with hypoxia (Chronic) Schizoaffective disorder (Chronic) GERD (gastroesophageal reflux disease) COPD (chronic obstructive pulmonary disease) (Acute) Chronic systolic heart failure PTSD (post-traumatic stress disorder) History of pulmonary embolism Asthma (Chronic) CHF (congestive heart failure) (Chronic) 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% per echo 06/06/18; non-obstructive CAD per cath 2006 HTN (hypertension) (Chronic) PTSD (post-traumatic stress disorder) (Chronic) Atrial fibrillation Diabetes type 2, controlled patient denies having diabetes, does not want further testing even though she is prescribed Metformin GERD (gastroesophageal reflux disease) Glaucoma Morbid obesity Pulmonary embolism 2013 while living in [place] Schizoaffective disorder Ventricular arrhythmia Surgical History Presence of single chamber implantable cardioverter-defibrillator (ICD) Pacemaker (Chronic) AICD (automatic cardioverter/defibrillator) present S/P ORIF (open reduction internal fixation) fracture ankle, left S/P tubal ligation Family History Mother , in her 70s Lung cancer from this Congestive heart failure (CHF) Breast cancer Father No problems noted. 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; worked for [employer]; was in [place] x 7 yr Other Information That Helps Us Care for You: No other: lives in [place] Feels Safe at Home: Yes Safety Concerns: Feels Safe At This Time Smoking Status: Former smoker Tobacco Type: cigarettes Cigarettes Per Day: <1 ppd Do You Dip or Chew Tobacco: No Second Hand Exposure: No Tobacco Cessation Education Requested by Patient: No Hx Alcohol Use: Yes Alcohol type: hard liquor Alcohol Intake Frequency Comment: weekends only Hx Substance Use: No Review of Systems Review of Systems: All systems reviewed & are unremarkable except as noted in HPI & below Physical Exam Physical Exam: Vitals noted and within normal limits with the exception of hypoxia GENERAL: Awake, alert to person, place, and time, nontoxic-appearing, in no distress. HENT: Normocephalic, atraumatic. Nasal cannula in place. Mucus membranes appear moist. EYES: Normal conjunctiva. Sclera non-icteric. EOMI. NECK: Supple. Full range of motion. No JVD. RESPIRATORY: Diminished bilaterally, no wheezing or rhonchi. Increased work of breathing, does not speak in complete sentences. CARDIAC: Irreg/irreg, rate <100 on monitor. Extremities warm and well perfused, ABDOMEN: Soft, non-distended. LOWER EXTREMITIES: Inspection of calves reveal equal size bilaterally. They are non-tender. No edema. No discoloration. NEURO: No gross focal motor deficits noted. Sensation in tact. CN II-XII grossly in tact. . SKIN: Rash not present. No jaundice noted. Significant lesions not present. PSYCH: Appropriate mood and affect. Cooperative. Exam as done by Shelley Haque MD, Sheet Finisher. Results & Data Vital Signs (Past 12 Hours) Vital Signs Temp Pulse Resp BP Pulse Ox 01/02/19 20:46 93 H 28 H 99 01/02/19 20:09 36.6 C 95 H 22 126/59 L 99 Laboratory Results 01/02/19 01/02/19 01/02/19 Range/Units 21:17 21:17 21:17 WBC 11.82 H (4.8-10.8) K/uL RBC 4.19 L (4.2-5.4) M/uL Hgb 12.0 (12.0-16.0) g/dL Hct 36.9 L (37-47) % MCV 88.1 (80-100) fL MCH 28.6 (25-34) pg MCHC 32.5 (32-36) g/dL RDW Std Deviation 55.4 H (36.4-46.3) fL RDW Coeff of Logan 17.3 H (11.5-14.5) % Plt Count 267 (130-400) K/uL MPV 9.8 (7.4-10.4) fL Immature Gran % (Auto) 0.2 % Neut % (Auto) 69.7 % Lymph % (Auto) 23.3 % Laurens % (Auto) 5.6 % Eos % (Auto) 0.9 % Baso % (Auto) 0.3 % Immature Gran # (Auto) 0.02 (0.00-0.02) K/uL Neut # (Auto) 8.25 H (1.4-6.5) K/uL Lymph # (Auto) 2.75 (1.2-3.4) K/uL Laurens # (Auto) 0.66 H (0.11-0.59) K/uL Eos # (Auto) 0.11 (0-0.5) K/uL Baso # (Auto) 0.03 (0-0.2) K/uL PT 13.1 H (9.0-12.0) Seconds INR 1.3 H (0.9-1.1) APTT 27.1 (21.0-31.0) Seconds PTT Ratio 1.0 VBG pH (7.36-7.41) VBG pCO2 (38-50) mmHg VBG pO2 mmHg VBG HCO3 mmol/L VBG O2 Saturation % VBG Base Excess mEq/L Barometric Pressure mm/Hg Sodium (136-145) mmol/L Potassium (3.5-5.1) mmol/L Chloride (98-107) mmol/L Carbon Dioxide (21-32) mmol/L Anion Gap (3-11) BUN (7-18) mg/dl Creatinine (0.6-1.2) mg/dl Est Cr Clr Drug Dosing ml/min Est GFR ( Amer) Est GFR (Non-Af Amer) BUN/Creatinine Ratio (10-20) Glucose (70-99) mg/dl Calcium (8.5-10.1) mg/dl Magnesium (1.8-2.4) mg/dl Total Bilirubin (0.2-1) mg/dl AST (15-37) U/L ALT (12-78) U/L Alkaline Phosphatase (45-117) U/L Troponin I (0-0.045) ng/ml NT-Pro-B Natriuret Pep (0-900) pg/ml Total Protein (6.4-8.2) gm/dl Albumin (3.4-5.0) gm/dl Globulin (2.5-4.0) gm/dl Albumin/Globulin Ratio (0.9-2) Digoxin Pending 01/02/19 01/02/19 Range/Units 21:17 21:12 WBC (4.8-10.8) K/uL RBC (4.2-5.4) M/uL Hgb (12.0-16.0) g/dL Hct (37-47) % MCV (80-100) fL MCH (25-34) pg MCHC (32-36) g/dL RDW Std Deviation (36.4-46.3) fL RDW Coeff of Logan (11.5-14.5) % Plt Count (130-400) K/uL MPV (7.4-10.4) fL Immature Gran % (Auto) % Neut % (Auto) % Lymph % (Auto) % Laurens % (Auto) % Eos % (Auto) % Baso % (Auto) % Immature Gran # (Auto) (0.00-0.02) K/uL Neut # (Auto) (1.4-6.5) K/uL Lymph # (Auto) (1.2-3.4) K/uL Laurens # (Auto) (0.11-0.59) K/uL Eos # (Auto) (0-0.5) K/uL Baso # (Auto) (0-0.2) K/uL PT (9.0-12.0) Seconds INR (0.9-1.1) APTT (21.0-31.0) Seconds PTT Ratio VBG pH 7.42 H (7.36-7.41) VBG pCO2 55 H (38-50) mmHg VBG pO2 23 mmHg VBG HCO3 35 mmol/L VBG O2 Saturation < 60.0 % VBG Base Excess 8.7 mEq/L Barometric Pressure 732.6 mm/Hg Sodium 142 (136-145) mmol/L Potassium 3.3 L (3.5-5.1) mmol/L Chloride 100 (98-107) mmol/L Carbon Dioxide 34 H (21-32) mmol/L Anion Gap 7.0 (3-11) BUN 16 (7-18) mg/dl Creatinine 0.85 (0.6-1.2) mg/dl Est Cr Clr Drug Dosing 92.4 ml/min Est GFR ( Amer) 88.2 Est GFR (Non-Af Amer) 76.1 BUN/Creatinine Ratio 19.1 (10-20) Glucose 108 H (70-99) mg/dl Calcium 10.0 (8.5-10.1) mg/dl Magnesium 2.2 (1.8-2.4) mg/dl Total Bilirubin 1.2 H (0.2-1) mg/dl AST 11 L (15-37) U/L ALT 13 (12-78) U/L Alkaline Phosphatase 130 H (45-117) U/L Troponin I < 0.015 (0-0.045) ng/ml NT-Pro-B Natriuret Pep 4873 H (0-900) pg/ml Total Protein 8.4 H (6.4-8.2) gm/dl Albumin 3.8 (3.4-5.0) gm/dl Globulin 4.6 H (2.5-4.0) gm/dl Albumin/Globulin Ratio 0.8 L (0.9-2) Digoxin Supervising Physician Co-Signing Physician Notes Pt seen/examined in conjunction with resident MD Katherin Haque. Orders and plan for admission formulated with resident. 58 y/o F Hx CHF (EF 20%), BV pacer, AF, HTN, COPD, chronic pericardial effusion, anxiety, schizoaffective. Presents with progressive SOB, pronounced with exertion. She was seen earlier in the day for the same complaints, received Lasix and was DCd. Imaging and exam are consistent with volume overload. OE AAO x 3 S1,2 faint No air entry at bases - very poor air movement - poor effort NT, ND No CCE P: Assigned to telemetry for the purpose of diuresis. Unlikely to be a COPD exacerbation as 02 requirements have not increased The pt is anticoagulated with Xarelto and her HR is controlled with Metoprolol PG Care Time/CCT Total # of Minutes Spent Total Time Spent with Patient: Total time spent is greater than 50% in coordination of care (as documented) at patient's floor/unit and/or counseling patient: Resident Activity Tracking Resident Involvement: Resident Care Provided Care Provided: Adult Hospital Medicine (1) CHF (congestive heart failure) Heart failure chronicity: unspecified Heart failure type: unspecified Qualified Code(s): I50.9 - Heart failure, unspecified (2) Schizoaffective disorder Schizoaffective disorder type: other Qualified Code(s): F25.8 - Other schizoaffective disorders (3) COPD (chronic obstructive pulmonary disease) COPD type: unspecified COPD Qualified Code(s): J44.9 - Chronic obstructive pulmonary disease, unspecified
[2019-01-02] MEDS ORDERED: ALUMINUM/MAGNESIUM SUSP 30 ML UDC PO PRN (23:07)
[2019-01-02] MEDS ORDERED: ONDANSETRON INJ 2 MG/ML 2 ML VIAL IV PRN (23:07)
[2019-01-02] MEDS ORDERED: MAGNESIUM HYDROXIDE SUSP 30 ML UDC PO PRN (23:07)
[2019-01-02] MEDS ORDERED: POLYETHYLENE (MIRALAX) 17 GM PACK PO PRN (23:07)
--- NOTE | 2019-01-03 00:03 | Emergency Department Note ---
Entered by Roma Barbosa acting as a scribe for History of Present Illness General Chief complaint: Shortness of Breath/Dyspnea Stated complaint: SOB Time Seen by Provider: 01/02/19 20:40 Source: patient Mode of arrival: ambulatory History of Present Illness Onset (ago): hour(s) 5 Location: chest Pain Consistency: + other (worsening ) Relieved By: + medication (diuretics); not by other (3L of oxygen ) Associated symptoms: + shortness of breath The patient is a 58 year old female who presents to the ED via EMS with complaints of worsening shortness of breath since 5 hours ago. The shortness of breath is basically with any type of exertion. She states she cannot function like this at home. The patient states that she feels like she cant catch her breath. The patient states that she normally wears 3 Liters of oxygen to try and relieve her respiratory symptoms. The patient states that she was in the ED earlier today for shortness of breath due to her heart failure. The patient states that she has been taking her diuretics twice a day as scheduled. The patient states that after she was discharged her shortness of breath became much worse than it was earlier. The patient states that she has a history of heart f ailure and fluid buildup. The patient states that her bdr is from the [facility]. The patient states that she has no changes in her diet. The patient notes that she lives by herself. Home Medications Home Medications Medication Instructions Recorded Confirmed Type atorvastatin 10 mg PO DAILY 05/31/18 01/02/19 History digoxin 0.125 mg PO DAILY 05/31/18 01/02/19 History omeprazole 20 mg PO QAM 05/31/18 01/02/19 History furosemide 40 mg PO BID 10/07/18 01/02/19 History gabapentin 600 mg PO BID 10/07/18 01/02/19 History hydroxyzine pamoate 50 mg PO HS 10/07/18 01/02/19 History metoprolol succinate 200 mg PO QAM 10/07/18 01/02/19 History quetiapine 300 mg PO HS 10/07/18 01/02/19 History trazodone 200 mg PO HS 10/07/18 01/02/19 History Entresto 1 tab PO DAILY 10/21/18 01/02/19 History docusate sodium 100 mg capsule 100 mg PO BID PRN #30 cap 12/15/18 01/02/19 Rx metformin 500 mg tablet 500 mg PO BID #60 tab 12/15/18 01/02/19 Rx rivaroxaban 20 mg tablet 20 mg PO DAILY #90 tab 12/15/18 01/02/19 Rx albuterol sulfate 2.5 mg/3 mL 2.5 mg INHALATION ONCE PRN #1 ml 01/01/19 01/02/19 History (0.083 %) solution for nebulization hydrocortisone 2.5 % topical cream 1 applic ME .INSERT 1 APPLICATORF 01/01/19 01/02/19 History with perineal applicator #1 gm diphenhydramine HCl [Benadryl 25 mg PO QAM 01/02/19 01/02/19 History Allergy] quetiapine [Seroquel] 100 mg PO QAM 01/02/19 01/02/19 History Allergies Allergy/AdvReac Type Severity Reaction Status Date / Time fentanyl Allergy Mild RASH,ITCHIN Verified 01/02/19 20:37 G Past Med/Surg History Medical History Permanent atrial fibrillation SOB (shortness of breath) (Acute) Depression Pulmonary hypertension Pericardial effusion (Acute) Severe mitral regurgitation Nonischemic cardiomyopathy Congestive heart failure with cardiomyopathy Diabetes Morbid obesity (Chronic) Chronic respiratory failure with hypoxia (Chronic) Schizoaffective disorder (Chronic) GERD (gastroesophageal reflux disease) COPD (chronic obstructive pulmonary disease) (Acute) Chronic systolic heart failure PTSD (post-traumatic stress disorder) History of pulmonary embolism Asthma (Chronic) CHF (congestive heart failure) (Chronic) 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% per echo 06/06/18; non-obstructive CAD per cath 2006 HTN (hypertension) (Chronic) PTSD (post-traumatic stress disorder) (Chronic) Atrial fibrillation Diabetes type 2, controlled patient denies having diabetes, does not want further testing even though she is prescribed Metformin GERD (gastroesophageal reflux disease) Glaucoma Morbid obesity Pulmonary embolism 2013 while living in [place] Schizoaffective disorder Ventricular arrhythmia Surgical History Presence of single chamber implantable cardioverter-defibrillator (ICD) Pacemaker (Chronic) AICD (automatic cardioverter/defibrillator) present S/P ORIF (open reduction internal fixation) fracture ankle, left S/P tubal ligation Family History Mother , in her 70s Lung cancer from this Congestive heart failure (CHF) Breast cancer Father No problems noted. 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 and A total of 10 systems reviewed and were otherwise negative Physical Exam Vital Signs Vital Signs - 24 hr 01/02/19 20:07 01/02/19 20:09 01/02/19 20:45 Temperature 36.6 C Temperature Source Oral Sepsis Recent Fever Within 48 Hours No Sepsis Action Taken by Nursing No Action Required Pulse Rate 93 H 95 H 101 H Pulse Rate from SpO2 Sensor 96 H 100 H Pulse Rhythm Respiratory Rate 34 H 22 22 Respiratory Effort / Characteristics Non-Labored Respiratory Depth Normal Blood Pressure 126/59 L 126/59 L Blood Pressure Mean 81 81 Pulse Oximetry 98 99 98 Oxygen Delivery Method Nasal Cannula Oxygen Flow Rate 3 01/02/19 20:46 01/02/19 21:00 01/02/19 21:17 Temperature Temperature Source Sepsis Recent Fever Within 48 Hours Sepsis Action Taken by Nursing Pulse Rate 93 H 108 H 94 H Pulse Rate from SpO2 Sensor 100 H 93 H Pulse Rhythm Regular Respiratory Rate 28 H 15 37 H Respiratory Effort / Characteristics Respiratory Depth Blood Pressure 133/84 Blood Pressure Mean 100 Pulse Oximetry 99 99 99 Oxygen Delivery Method Nasal Cannula Oxygen Flow Rate 2 01/02/19 22:00 Temperature Temperature Source Sepsis Recent Fever Within 48 Hours Sepsis Action Taken by Nursing Pulse Rate 103 H Pulse Rate from SpO2 Sensor Pulse Rhythm Respiratory Rate 34 H Respiratory Effort / Characteristics Respiratory Depth Blood Pressure 134/60 Blood Pressure Mean 84 Pulse Oximetry Oxygen Delivery Method Oxygen Flow Rate GENERAL: Patient is in no acute distress. HEENT: No acute trauma, normocephalic atraumatic, mucous membranes moist, no nasal congestion, no scleral icterus. NECK: No stridor, no adenopathy, no meningismus, trachea is midline. LUNGS: Increased respiratory rate, no wheezing, no crackles. Slightly decreased breath sounds on the right. HEART: Without murmurs gallops or rubs, regular rate, irregular rhythm. ABDOMEN: Soft, nontender, bowel sounds positive, no hernias, no peritonitis. EXTREMITIES: No cyanosis or edema, full range of motion of all the joints without pain or difficulty, no signs for acute trauma. NEUROLOGIC: Oriented x 3, no acute motor or sensory deficits, no focal weakness. SKIN: No rash, no jaundice, no diaphoresis. Course 2041: Past medical records reviewed. The patient was evaluated in room B4. A complete history and physical exam was performed. 2104: I discussed the patients case with Dr. Hagen, [facility] Hospitalist. He agreed to admit the patient for further management. Consultations Consultation #1: I discussed the patients case with Dr. Hagen, [facility] Hospitalist. He agreed to admit the patient for further management. Time: 21:05 Administered Medications Albuterol (Duoneb) 3 ml NEB QIDR [facility] Stop: 02/02/19 07:59 Last Admin: 01/03/19 11:09 Dose: 3 ml Documented by: [id number] Admin: 01/03/19 07:01 Dose: 3 ml Documented by: [id number] Atorvastatin Calcium (Lipitor) 10 mg PO DAILY [facility] Stop: 02/02/19 08:59 Last Admin: 01/03/19 08:06 Dose: 10 mg Documented by: [id number] Diphenhydramine HCl (Benadryl Capsule) 25 mg PO QAM [facility] Stop: 02/02/19 08:59 Last Admin: 01/03/19 08:05 Dose: 25 mg Documented by: [id number] Gabapentin (Neurontin) 600 mg PO BID [facility] Stop: 02/01/19 23:06 Last Admin: 01/03/19 08:06 Dose: 600 mg Documented by: [id number] Admin: 01/03/19 00:10 Dose: 600 mg Documented by: [id number] Metformin HCl (Glucophage) 500 mg PO BIDM [facility] Stop: 02/02/19 07:59 Last Admin: 01/03/19 08:05 Dose: 500 mg Documented by: [id number] [facility] ([facility]l) [facility] [place]: 02/02/19 08:59 Last Admin: 01/03/19 08:06 Dose: 200 mg Documented by: [id number] Pantoprazole Sodium (Protonix) [facility] [place] Stop: 02/02/19 08:59 Last Admin: 01/03/19 08:06 Dose: 40 mg Documented by: [id number] Quetiapine Fumarate (Seroquel) [facility] [place]: 02/02/19 08:59 Last Admin: 01/03/19 08:34 Dose: 100 mg Documented by: [id number] Quetiapine Fumarate (Seroquel) 300 mg PO HS [facility] Stop: 02/01/19 23:29 Last Admin: 01/03/19 00:10 Dose: 300 mg Documented by: [id number] Rivaroxaban (Xarelto) 20 mg PO DAILY [facility] Stop: 02/02/19 08:59 Last Admin: 01/03/19 08:06 Dose: 20 mg Documented by: [id number] Sacubitril/Valsartan (Entresto 24/26mg) 1 tab PO DAILY [facility] Stop: 02/02/19 08:59 Last Admin: 01/03/19 08:34 Dose: 1 tab Documented by: [id number] Discontinued Medications Furosemide (Lasix) 60 mg IV ONE STA Stop: 01/02/19 21:28 Last Admin: 01/02/19 21:30 Dose: 60 mg Documented by: [id number] Furosemide (Lasix) 40 mg PO BID17 VICTOR M Stop: 02/02/19 08:59 Last Admin: 01/03/19 08:05 Dose: 40 mg Documented by: [id number] Nitroglycerin (Nitro-Bid 2%) 1 inch EXT NOW STA Stop: 01/02/19 20:48 Last Admin: 01/02/19 21:30 Dose: 1 inch Documented by: [id number] Potassium Chloride (Klor-Con M20) 40 meq PO ONE ONE Stop: 01/03/19 06:31 Last Admin: 01/03/19 06:42 Dose: 40 meq Documented by: [id number] Medical Decision Making Differential Diagnosis Differential diagnoses include CHF, AL, pneumonia, pneumothorax, anemia, electrolyte imbalance, fluid overload. Medical Records Attestation: I reviewed the patient's medical records. Home Medications Current Medication List: was personally reviewed by me Laboratory Data Attestation: I reviewed the patient's lab results. Result diagrams: 01/02/19 21:17 01/03/19 07:05 Lab Results 01/02/19 01/02/19 01/02/19 Range/Units 21:12 21:17 21:17 WBC 11.82 H (4.8-10.8) K/uL RBC 4.19 L (4.2-5.4) M/uL Hgb 12.0 (12.0-16.0) g/dL Hct 36.9 L (37-47) % MCV 88.1 (80-100) fL MCH 28.6 (25-34) pg MCHC 32.5 (32-36) g/dL RDW Std Deviation 55.4 H (36.4-46.3) fL RDW Coeff of Logan 17.3 H (11.5-14.5) % Plt Count 267 (130-400) K/uL MPV 9.8 (7.4-10.4) fL Immature Gran % (Auto) 0.2 % Neut % (Auto) 69.7 % Lymph % (Auto) 23.3 % Sebastian % (Auto) 5.6 % Eos % (Auto) 0.9 % Baso % (Auto) 0.3 % Immature Gran # (Auto) 0.02 (0.00-0.02) K/uL Neut # (Auto) 8.25 H (1.4-6.5) K/uL Lymph # (Auto) 2.75 (1.2-3.4) K/uL Sebastian # (Auto) 0.66 H (0.11-0.59) K/uL Eos # (Auto) 0.11 (0-0.5) K/uL Baso # (Auto) 0.03 (0-0.2) K/uL PT (9.0-12.0) Seconds INR (0.9-1.1) APTT (21.0-31.0) Seconds PTT Ratio VBG pH 7.42 H (7.36-7.41) VBG pCO2 55 H (38-50) mmHg VBG pO2 23 mmHg VBG HCO3 35 mmol/L VBG O2 Saturation < 60.0 % VBG Base Excess 8.7 mEq/L Barometric Pressure 732.6 mm/Hg Sodium 142 (136-145) mmol/L Potassium 3.3 L (3.5-5.1) mmol/L Chloride 100 (98-107) mmol/L Carbon Dioxide 34 H (21-32) mmol/L Anion Gap 7.0 (3-11) BUN 16 (7-18) mg/dl Creatinine 0.85 (0.6-1.2) mg/dl Est Cr Clr Drug Dosing 92.4 ml/min Est GFR ( Amer) 88.2 Est GFR (Non-Af Amer) 76.1 BUN/Creatinine Ratio 19.1 (10-20) Glucose 108 H (70-99) mg/dl Calcium 10.0 (8.5-10.1) mg/dl Magnesium 2.2 (1.8-2.4) mg/dl Total Bilirubin 1.2 H (0.2-1) mg/dl AST 11 L (15-37) U/L ALT 13 (12-78) U/L Alkaline Phosphatase 130 H (45-117) U/L Troponin I < 0.015 (0-0.045) ng/ml NT-Pro-B Natriuret Pep 4873 H (0-900) pg/ml Total Protein 8.4 H (6.4-8.2) gm/dl Albumin 3.8 (3.4-5.0) gm/dl Globulin 4.6 H (2.5-4.0) gm/dl Albumin/Globulin Ratio 0.8 L (0.9-2) Digoxin (0.8-2.0) ng/ml 01/02/19 01/02/19 Range/Units 21:17 21:17 WBC (4.8-10.8) K/uL RBC (4.2-5.4) M/uL Hgb (12.0-16.0) g/dL Hct (37-47) % MCV (80-100) fL MCH (25-34) pg MCHC (32-36) g/dL RDW Std Deviation (36.4-46.3) fL RDW Coeff of Logan (11.5-14.5) % Plt Count (130-400) K/uL MPV (7.4-10.4) fL Immature Gran % (Auto) % Neut % (Auto) % Lymph % (Auto) % Sebastian % (Auto) % Eos % (Auto) % Baso % (Auto) % Immature Gran # (Auto) (0.00-0.02) K/uL Neut # (Auto) (1.4-6.5) K/uL Lymph # (Auto) (1.2-3.4) K/uL Sebastian # (Auto) (0.11-0.59) K/uL Eos # (Auto) (0-0.5) K/uL Baso # (Auto) (0-0.2) K/uL PT 13.1 H (9.0-12.0) Seconds INR 1.3 H (0.9-1.1) APTT 27.1 (21.0-31.0) Seconds PTT Ratio 1.0 VBG pH (7.36-7.41) VBG pCO2 (38-50) mmHg VBG pO2 mmHg VBG HCO3 mmol/L VBG O2 Saturation % VBG Base Excess mEq/L Barometric Pressure mm/Hg Sodium (136-145) mmol/L Potassium (3.5-5.1) mmol/L Chloride (98-107) mmol/L Carbon Dioxide (21-32) mmol/L Anion Gap (3-11) BUN (7-18) mg/dl Creatinine (0.6-1.2) mg/dl Est Cr Clr Drug Dosing ml/min Est GFR ( Amer) Est GFR (Non-Af Amer) BUN/Creatinine Ratio (10-20) Glucose (70-99) mg/dl Calcium (8.5-10.1) mg/dl Magnesium (1.8-2.4) mg/dl Total Bilirubin (0.2-1) mg/dl AST (15-37) U/L ALT (12-78) U/L Alkaline Phosphatase (45-117) U/L Troponin I (0-0.045) ng/ml NT-Pro-B Natriuret Pep (0-900) pg/ml Total Protein (6.4-8.2) gm/dl Albumin (3.4-5.0) gm/dl Globulin (2.5-4.0) gm/dl Albumin/Globulin Ratio (0.9-2) Digoxin 0.9 (0.8-2.0) ng/ml Imaging Data Attestation: I personally reviewed and interpreted this imaging study as follows : Radiologist's Impression: Radiology results as stated below per my review and the radiologist's interpretation: XR chest 1V portable CLINICAL HISTORY: sob dyspnea COMPARISON STUDY: 01/03/20001913 9:29 AM FINDINGS: Stable cardiomegaly. Unchanged findings of pulmonary edema. Probable left pleural effusion. IMPRESSION: Pulmonary edema. No change from the prior exam. The above report was generated using voice recognition software. It may contain grammatical, syntax or spelling errors. Electronically signed by: Osmar Kapoor M.D. 01/02/2019 9:07 PM ECG Data Attestation: I personally reviewed and interpreted this ECG as follows: Indication: SOB/dyspnea Rate (beats per minute): 96 Rhythm: atrial fibrillation Findings: + other (nonspecific ST change ); no PVC and no ST elevation Blood Pressure Blood Pressure Findings: Normal blood pressure Blood Pressure Disposition: did not require urgent referral MDM Narrative There is a mild leukocytosis at 11.8, no worrisome anemia. The elevated white blood cell count could be from infection or just the stress of her presentation. INR was slightly high at 1.3. VBG does not show any significant CO2 retention. Renal panel testing did not show any significant electrolyte abnormality or kidney failure. No worrisome liver enzyme elevation. Chest film does show cardiomegaly and CHF. The film looks similar to today's earlier film. BNP was elevated at over 4000, this is consistent with fluid overload. Digoxin level was not toxic. EKG shows A. fib, no acute ischemia. Cardiac enzyme testing x1 is not consistent with acute cardiac injury. The patient presents with increasing shortness of breath with any exertion. This is despite being diuresed earlier today with IV Lasix and despite her typical O2 use at home. She presents by ambulance because she is too winded to function in her house. The patient is fluid overloaded and in heart failure. She has failed outpatient management. I do think a hospital stay is in order. Patient was given IV Lasix, she received nitroglycerin paste. She is diuresing. I spoke to the patient, I talked with case management. The on-call hospitalist was consulted. Impression & Plan SOB (shortness of breath), CHF (congestive heart failure), Failure of outpatient treatment Discharge Plan Visit Data *Final* Discharge Date/Time: 01/02/19 23:01 Chief Complaint: Shortness of Breath/Dyspnea Stated Complaint: SOB ED Provider: Sunny Moreno Discharge Problem: SOB (shortness of breath), CHF (congestive heart failure), Failure of outpatient treatment Patient Disposition: Admitted As Inpatient Discharge Instructions Interventions: ED Discharge Assessment Last Done: 01/02/19 23:01 Discharge Problem: CHF (congestive heart failure) Qualifiers: Heart failure type: unspecified Heart failure chronicity: unspecified Qualified Code(s): I50.9 - Heart failure, unspecified The scribe's documentation has been prepared under my direction and personally reviewed by me in its entirety. I confirm that the note above accurately reflects all work, treatment, procedures, and medical decision making performed by me.
[2019-01-03] MEDS: QUETIAPINE FUMARATE 300 MG TABLET PO SCH ×2 (00:10→20:06)
[2019-01-03] MEDS: GABAPENTIN 600 MG TAB PO SCH ×3 (00:10→20:06)
[2019-01-03] MEDS ORDERED: POTASSIUM CHLORIDE 20 MEQ TABCR PO ONE ×2 (06:30→14:00)
[2019-01-03] MEDS: ALBUT/IPRATROP 3MG/0.5MG NEB 3 ML VIAL NEB SCH ×4 (07:01→19:35)
--- NOTE | 2019-01-03 07:23 | XRay Report ---
XR chest 1V portable HISTORY: 58 years-old Female sob acute shortness of breath COMPARISON: Chest radiograph 01/02/2019 TECHNIQUE: Portable AP view of the chest FINDINGS: Cardiac silhouette is enlarged, unchanged. Stable positioning of left subclavian pacer/AICD. Pulmonar y vascular congestion with persistent interstitial coarsening. Probable trace pleural effusions with bibasilar opacities suggestive of atelectasis. No pneumothorax. Degenerative changes of the shoulders and spine. IMPRESSION: 1. Cardiomegaly with unchanged pulmonary edema. 2. Trace pleural effusions. The above report was generated using voice recognition software. It may contain grammatical, syntax o r spelling errors. Electronically signed by: Bryan Ortega M.D. 01/03/2019 7:22 AM
[2019-01-03 08:01] LABS: BUN Creatinine Ratio 19.6 (10-20); Calcium 9.6 mg/dl (8.5-10.1); Creatinine Clr Calc Pharmacy 107.9 ml/min; Est GFR (Non-African American) 91.4; Potassium 3.4 mmol/L (3.5-5.1)
[2019-01-03] MEDS: METFORMIN HCL 500 MG TAB PO SCH ×2 (08:05→16:29)
[2019-01-03] MEDS: METOPROLOL SUCC 50MG EXT REL TAB PO SCH (08:06)
[2019-01-03] MEDS: RIVAROXABAN 20 MG TAB PO SCH (08:06)
[2019-01-03] MEDS: ATORVASTATIN 10 MG TAB PO SCH (08:06)
[2019-01-03] MEDS: PANTOprazole 40 MG TAB PO SCH (08:06)
[2019-01-03] MEDS: SACUBITRIL-VALSARTAN 24-26 MG TAB PO SCH (08:34)
[2019-01-03] MEDS: QUETIAPINE FUMARATE 100 MG TABLET PO SCH (08:34)
[2019-01-03] MEDS ORDERED: FUROSEMIDE 40 MG TAB PO SCH (09:00)
--- NOTE | 2019-01-03 11:21 | Cardiology Consultation ---
Date of Consultation January 03, 2019 Assessment & Plan (1) SOB (shortness of breath): She likely has an element of pulmonary vascular congestion. However, she has done quite well for an extended period on her usual medical regimen. There is not appear to be any precipitating factor which caused her decompensation. She is not appear to have any dietary indiscretion and her overall heart rates appear well controlled. It is unclear what her medical compliance has been, but she claims to be taking her medications. Curiously, she did miss a few appointments in our clinic which could possibly have avoided progression of her symptoms. At this point would seem reasonable to attempt some form of more aggressive diuresis. I think changing her oral Lasix to intravenous would be 1 reasonable intervention. Her lung examination is relatively benign in even though her N terminal proBNP is elevated, she has been in this range before without significant dyspnea. In the past, lot of her dyspnea appear to be related to primary lung disease. She has been admitted several times over the past year with what appeared to be decompensated heart failure. Her symptoms finally resolved with initiation of beta agonists and treatment of underlying lung disease. (2) CHF (congestive heart failure): She is known to have severely reduced LV systolic function. As noted above, be reasonable to attempt some form of diuresis while she is here in the hospital. She is not appear to have significant peripheral edema. I think we can monitor electrolytes and renal function closely and try to decide when she has been adequately diuresed. (3) Cardiac defibrillator in place: She is a biventricular ICD. Initially we were planning on an AV node ablation due to sustained high ventricular rates and permanent atrial fibrillation. However, her rate controlled much better since she had her pulmonary disease treated. Outpatient report suggested she did have 2 therapies from her device over the past 2 months. We will perform an interrogation today to evaluate these episodes. (4) A-fib: Permanent. She appears to have adequate rate control. Interrogation of her device will also let us know how good a job where doing with rate control. She will continue on rivaroxaban indefinitely. (5) Pericardial effusion: Her last echocardiogram was a few months ago. She is noted to have a chronic pericardial effusion. I think would be worth repeating an echocardiogram in order to ensure this is not grown significantly or is causing any decompensation. (6) Severe mitral regurgitation: (7) Nonischemic cardiomyopathy: Patient underwent cardiac catheterization in 2006 without evidence of significant obstructive coronary disease. Current outpatient regimen includes beta-blockade and Entresto. She actually did very well for several months with close follow-up. However, she has been noncompliant with her follow-up recently and this may have contributed to her decompensation. History of Present Illness Reason for Consultation: Dyspnea Requesting Physician: Garland Attending Physician: Dashawn Mccall History of Present Illness The patient is a 58-year-old woman with extensive past medical history to include a presumed nonischemic cardiomyopathy, permanent atrial fibrillation, congestive heart failure and pulmonary hypertension who presented to the hospital with worsening dyspnea. Patient states that over the past several weeks she has had progressively worsening shortness of breath. She is currently frustrated that she has significant breathing trouble even completing mild activities at home. He states that he feels difficult to take a deep breath. Even light activity causes her significant fatigue and dyspnea. To need to sit and rest after most activity and catch her breath. She also reports symptoms of orthopnea recently. She has been sleeping more upright in bed in order to feel comfortable. She claims to be compliant with her oxygen therapy. She has not use meter dose inhalers but has been compliant with daily use of a nebulizer. She has not report any specific dietary indiscretion. She appears to be monitoring her sodium intake closely. She has not report symptoms of chest discomfort. She has not been aware of any racing heartbeats. She did report occasional episodes of dizziness. The seem to be more positional in nature and not paroxysmal. She has not report any symptoms of syncope. When we discussed the possibility that she received therapy from her defibrillator, she did recall 1 episode where she had significant pain in her left lower back. She describes this as a shooting and stabbing pain that was fairly severe at the time. She cannot recall the exact date. Allergies Allergy/AdvReac Type Severity Reaction Status Date / Time fentanyl Allergy Mild RASH,ITCHIN Verified 01/02/19 20:37 G Home Medications Home Medications Medication Instructions Recorded Confirmed Type atorvastatin 10 mg PO DAILY 05/31/18 01/02/19 History digoxin 0.125 mg PO DAILY 05/31/18 01/02/19 History omeprazole 20 mg PO QAM 05/31/18 01/02/19 History furosemide 40 mg PO BID 10/07/18 01/02/19 History gabapentin 600 mg PO BID 10/07/18 01/02/19 History hydroxyzine pamoate 50 mg PO HS 10/07/18 01/02/19 History metoprolol succinate 200 mg PO QAM 10/07/18 01/02/19 History quetiapine 300 mg PO HS 10/07/18 01/02/19 History trazodone 200 mg PO HS 10/07/18 01/02/19 History Entresto 1 tab PO DAILY 10/21/18 01/02/19 History docusate sodium 100 mg capsule 100 mg PO BID PRN #30 cap 12/15/18 01/02/19 Rx metformin 500 mg tablet 500 mg PO BID #60 tab 12/15/18 01/02/19 Rx rivaroxaban 20 mg tablet 20 mg PO DAILY #90 tab 12/15/18 01/02/19 Rx albuterol sulfate 2.5 mg/3 mL 2.5 mg INHALATION ONCE PRN #1 ml 01/01/19 01/02/19 History (0.083 %) solution for nebulization hydrocortisone 2.5 % topical cream 1 applic KS .INSERT 1 APPLICATORF 01/01/19 01/02/19 History with perineal applicator #1 gm diphenhydramine HCl [Benadryl 25 mg PO QAM 01/02/19 01/02/19 History Allergy] quetiapine [Seroquel] 100 mg PO QAM 01/02/19 01/02/19 History Patient History Medical History Permanent atrial fibrillation SOB (shortness of breath) (Acute) Depression Pulmonary hypertension Pericardial effusion (Acute) Severe mitral regurgitation Nonischemic cardiomyopathy Congestive heart failure with cardiomyopathy Diabetes Morbid obesity (Chronic) Chronic respiratory failure with hypoxia (Chronic) Schizoaffective disorder (Chronic) GERD (gastroesophageal reflux disease) COPD (chronic obstructive pulmonary disease) (Acute) Chronic systolic heart failure PTSD (post-traumatic stress disorder) History of pulmonary embolism Asthma (Chronic) CHF (congestive heart failure) (Chronic) 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% per echo 06/06/18; non-obstructive CAD per cath 2006 HTN (hypertension) (Chronic) PTSD (post-traumatic stress disorder) (Chronic) Atrial fibrillation Diabetes type 2, controlled patient denies having diabetes, does not want further testing even though she is prescribed Metformin GERD (gastroesophageal reflux disease) Glaucoma Morbid obesity Pulmonary embolism 2013 while living in [place] Schizoaffective disorder Ventricular arrhythmia Surgical History Presence of single chamber implantable cardioverter-defibrillator (ICD) Pacemaker (Chronic) AICD (automatic cardioverter/defibrillator) present S/P ORIF (open reduction internal fixation) fracture ankle, left S/P tubal ligation Family History Mother , in her 70s Lung cancer from this Congestive heart failure (CHF) Breast cancer Father No problems noted. 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; worked for [employer]; was in [employer] x 7 yr Other Information That Helps Us Care for You: No other: lives in [place] Feels Safe at Home: Yes Safety Concerns: Feels Safe At This Time Smoking Status: Former smoker Tobacco Type: cigarettes Cigarettes Per Day: <1 ppd Do You Dip or Chew Tobacco: No Second Hand Exposure: No Tobacco Cessation Education Requested by Patient: No Hx Alcohol Use: Yes Alcohol type: hard liquor Alcohol Intake Frequency Comment: weekends only Hx Substance Use: No Review of Systems Review of Systems: All systems reviewed & are unremarkable except as noted in HPI & below She has not report any recent fevers or chills. She does have a chronic cough which is nonproductive. She did not report any swelling in her lower extremities. Physical Exam Physical Exam: She is alert and oriented x3. Mood affect appear normal. She answered all questions appropriately. HEENT: Sclerae are anicteric. Pupils are equal and reactive to light and accommodation. Extraocular movements were intact. Neuro: Cranial nerves intact Neck: Examination of the submandibular region did not reveal any significant lymphadenopathy. Carotids are palpable bilaterally and free of bruits on auscultation. There was no evidence of jugular venous distention. The thyroid was not enlarged. Lungs: Lungs are clear to auscultation bilaterally. There are no rales wheezes or rhonchi. She has normal respiratory effort without use of accessory muscles. There is normal pulmonary excursion. Cardiac: The rhythm was irregular. S1 and S2 were normal. There are no murmurs on examination. The PMI was not markedly displaced on palpation. Abdomen: The abdomen was soft and nontender. Obese Extremities: Patient has bilateral radial pulses that are equal in intensity. There is no evidence cyanosis or clubbing. There was no evidence of significant peripheral edema bilaterally. Skin: There are no rashes noted on examination today. Results & Data Vital Signs (Past 12 Hours) Vital Signs Temp Pulse Pulse Resp BP Pulse Ox 01/03/19 11:10 96 H 20 80 L 01/03/19 08:27 36.9 C 68 16 134/90 96 01/03/19 07:36 92 H 01/03/19 07:03 83 22 96 01/03/19 04:25 94 H 01/03/19 04:06 36.8 C 90 20 108/77 97 Laboratory Results Abnormal Lab Results 01/02/19 01/02/19 01/02/19 21:12 21:17 21:17 WBC 11.82 H RBC 4.19 L Hgb 12.0 Hct 36.9 L MCV 88.1 MCH 28.6 MCHC 32.5 RDW Std Deviation 55.4 H RDW Coeff of Logan 17.3 H Plt Count 267 MPV 9.8 Immature Gran % (Auto) 0.2 Neut % (Auto) 69.7 Lymph % (Auto) 23.3 [place] % (Auto) 5.6 Eos % (Auto) 0.9 Baso % (Auto) 0.3 Immature Gran # (Auto) 0.02 Neut # (Auto) 8.25 H Lymph # (Auto) 2.75 [place] # (Auto) 0.66 H Eos # (Auto) 0.11 Baso # (Auto) 0.03 PT INR APTT PTT Ratio VBG pH 7.42 H VBG pCO2 55 H VBG pO2 23 VBG HCO3 35 VBG O2 Saturation < 60.0 VBG Base Excess 8.7 Barometric Pressure 732.6 Sodium 142 Potassium 3.3 L Chloride 100 Carbon Dioxide 34 H Anion Gap 7.0 BUN 16 Creatinine 0.85 Est Cr Clr Drug Dosing 92.4 Est GFR ( Amer) 88.2 Est GFR (Non-Af Amer) 76.1 BUN/Creatinine Ratio 19.1 Glucose 108 H Calcium 10.0 Magnesium 2.2 Total Bilirubin 1.2 H AST 11 L ALT 13 Alkaline Phosphatase 130 H Troponin I < 0.015 NT-Pro-B Natriuret Pep 4873 H Total Protein 8.4 H Albumin 3.8 Globulin 4.6 H Albumin/Globulin Ratio 0.8 L Digoxin 01/02/19 01/02/19 01/03/19 21:17 21:17 07:05 WBC RBC Hgb Hct MCV MCH MCHC RDW Std Deviation RDW Coeff of Logan Plt Count MPV Immature Gran % (Auto) Neut % (Auto) Lymph % (Auto) [place] % (Auto) Eos % (Auto) Baso % (Auto) Immature Gran # (Auto) Neut # (Auto) Lymph # (Auto) [place] # (Auto) Eos # (Auto) Baso # (Auto) PT 13.1 H INR 1.3 H APTT 27.1 PTT Ratio 1.0 VBG pH VBG pCO2 VBG pO2 VBG HCO3 VBG O2 Saturation VBG Base Excess Barometric Pressure Sodium 141 Potassium 3.4 L Chloride 100 Carbon Dioxide 34 H Anion Gap 7.0 BUN 14 Creatinine 0.73 Est Cr Clr Drug Dosing 107.9 Est GFR ( Amer) 106.0 Est GFR (Non-Af Amer) 91.4 BUN/Creatinine Ratio 19.6 Glucose 90 Calcium 9.6 Magnesium Total Bilirubin AST ALT Alkaline Phosphatase Troponin I NT-Pro-B Natriuret Pep Total Protein Albumin Globulin Albumin/Globulin Ratio Digoxin 0.9 Diagnostic Findings Chest x-ray obtained at the time of admission has revealed cardiomegaly, evidence of pulmonary congestion and small pulmonary effusions. ECG Additional Comments: Atrial fibrillation with controlled ventricular rate (1) CHF (congestive heart failure) Heart failure chronicity: unspecified Heart failure type: unspecified Qual ified Code(s): I50.9 - Heart failure, unspecified
[2019-01-03] MEDS: BENZONATATE 100 MG CAPSULE PO PRN (12:55)
[2019-01-03] MEDS: FUROSEMIDE 40 MG in SYRINGE 0 ML IV SCH (16:29)
[2019-01-03] MEDS: DIGOXIN 0.125 MG TAB PO SCH (16:29)
[2019-01-03] MEDS: TRAZODONE HCL 100 MG TAB PO SCH (20:05)
[2019-01-03] MEDS: POTASSIUM CHLORIDE 20 MEQ TABCR PO SCH (20:05)
[2019-01-03] MEDS: guaiFENesin SUGAR FREE 100 MG/5 ML UDC PO PRN (20:11)
--- NOTE | 2019-01-03 23:59 | Hospitalist Progress Note ---
Date of Service January 03, 2019 Assessment & Plan (1) MONSALVE (dyspnea on exertion): Ms. Carson is a 58 year old female with PMH chronic systolic CHF (EF 15-20% Jul 2018) , a.fib, biV pacer placement, pulmonary HTN, COPD, chronic pericardial effusion, anxiety and schizoaffective disorder who presents to the emergency department earlier this morning and again this evening due to worsening shortness of breath. Denies cough, fevers or chills, chest pain or abdominal pain, no change in urinary or bowel habits. Increasing MONSALVE with her regular activities at home. Has been admitted to [facility] several times since May 2018, due to worsening shortness of breath. Is on 2-3L O2, and is at her basel ine oxygen need here. She is visibly short of breath and cannot catch her breath going from the bed to the bathroom. Does mention that she is noncompliant with inhalers because she believes they cause her blood sugar to be elevated, and also insurance does not cover them for her. Given 120mg IV lasix in ED with adequate output. MONSALVE -EXTENSIVE work up done in previous visits -- appears to be multifactorial CHF/pulm HTN/COPD/pericardial effusion/mixed with anxiety features -interestingly, pt is at her baseline O2 requirement at rest, however does become increasingly dyspnic while walking -pt's weight is not significantly elevated from her discharge weight, she appears to be at her dry weight -her afib is rate controlled -she is afebrile, and with only mild leukocytosis -BNP is elevated but not from what her baseline appears to be -thankfully no dynamic EKG changes, and her trop remains normal -is seen by both cardiology and pulmonology in the outpatient setting, was due to go to CHF clinic today. -will cosult cardio and consult pulmonary. Plan will continue to diurese for the moment. Agree that this is multifactorial. Patient may benefit from antibiotics. Will cont. tesalon pearles and guasifensin will be ordered. FEN/GI: heart healthy/T2DM/low sodium. Caution against fluids. DVT ppx: on xarelto for AF CODE STATUS: FULL DISPO: Med/tele. (2) Prediabetes: A1C 6.0 in August. -continue metformin. -T2DM diet. (3) CHF (congestive heart failure): EF 15% on last echo, as above -here for diuresis -plan as above (4) Permanent atrial fibrillation: -rate controlled, continue Digoxin, metoprolol (5) Pulmonary hypertension: (6) Pericardial effusion: (7) Schizoaffective disorder: continue home meds: trazodone, quetiapine, hydroxizine (8) COPD (chronic obstructive pulmonary disease): Duonebs as above (9) Oxygen dependent: 2-3 liters is baseline Spent 35 minutes in management of patient. (2) Prediabetes: (3) CHF (congestive heart failure): (4) Permanent atrial fibrillation: (5) Pulmonary hypertension: (6) Pericardial effusion: (7) Schizoaffective disorder: (8) COPD (chronic obstructive pulmonary disease): (9) Oxygen dependent: Subjective Patient reports that she continues to have shortness of breath, and non productive cough. Patient denies any new symptoms. Review of Systems Review of Systems: All systems reviewed & are unremarkable except as noted in HPI & below Physical Exam Physical Exam: Vitals noted and within normal limits. GENERAL: Awake, alert to person, place, and time, nontoxic-appearing, in no distress. HENT: Normocephalic, atraumatic. Nasal cannula in place. Mucus membranes appear moist. EYES: Normal conjunctiva. Sclera non-icteric. EOMI. NECK: Supple. Full range of motion. No JVD. RESPIRATORY: Diminished bilaterally, no wheezing or rhonchi. Increased work of breathing. CARDIAC: Irreg/irreg, rate <100 on monitor. Extremities warm and well perfused, ABDOMEN: Soft, non-distended. LOWER EXTREMITIES: Inspection of calves reveal equal size bilaterally. They are non-tender. No edema. No discoloration. NEURO: No gross focal motor deficits noted. Sensation in tact. CN II-XII grossly in tact. . SKIN: Rash not present. No jaundice noted. Significant lesions not present. PSYCH: Appropriate mood and affect. Cooperative. Results & Data Vital Signs (Past 12 Hours) Vital Signs Temp Pulse Pulse Resp BP BP Pulse Ox 01/03/19 22:58 36.7 C 67 22 136/103 H 96 01/03/19 19:38 75 26 H 96 01/03/19 19:00 36.9 C 90 20 116/82 96 01/03/19 16:29 78 01/03/19 15:49 36.4 C L 65 20 95/80 L 97 01/03/19 15:47 84 22 95 01/03/19 12:16 36.6 C 66 20 105/67 98 PG Care Time/CCT Total # of Minutes Spent Total Time Spent with Patient: Total time spent is greater than 50% in coordination of care (as documented) at patient's floor/unit and/or counseling patient: (1) CHF (congestive heart failure) Heart failure chronicity: unspecified Heart failure type: unspecified Qualified Code(s): I50.9 - Heart failure, unspecified (2) Schizoaffective disorder Schizoaffective disorder type: other Qualified Code(s): F25.8 - Other schizoaffective disorders (3) COPD (chronic obstructive pulmonary disease) COPD type: unspecified COPD Qualified Code(s): J44.9 - Chronic obstructive pulmonary disease, unspecified
[2019-01-04] MEDS: guaiFENesin SUGAR FREE 100 MG/5 ML UDC PO PRN ×2 (03:24→20:21)
[2019-01-04] MEDS: ALBUT/IPRATROP 3MG/0.5MG NEB 3 ML VIAL NEB SCH ×4 (06:59→20:01)
[2019-01-04] MEDS: QUETIAPINE FUMARATE 100 MG TABLET PO SCH (08:28)
[2019-01-04] MEDS: SACUBITRIL-VALSARTAN 24-26 MG TAB PO SCH (08:29)
[2019-01-04] MEDS: METOPROLOL SUCC 50MG EXT REL TAB PO SCH (08:29)
[2019-01-04] MEDS: PANTOprazole 40 MG TAB PO SCH (08:29)
[2019-01-04] MEDS: RIVAROXABAN 20 MG TAB PO SCH (08:29)
[2019-01-04] MEDS: METFORMIN HCL 500 MG TAB PO SCH ×2 (08:29→16:28)
[2019-01-04] MEDS: FUROSEMIDE 40 MG in SYRINGE 0 ML IV SCH ×2 (08:30→16:28)
[2019-01-04] MEDS: POTASSIUM CHLORIDE 20 MEQ TABCR PO SCH ×2 (08:30→19:42)
[2019-01-04] MEDS: ATORVASTATIN 10 MG TAB PO SCH (08:30)
[2019-01-04] MEDS: BENZONATATE 100 MG CAPSULE PO PRN (09:10)
[2019-01-04] MEDS: GABAPENTIN 600 MG TAB PO SCH ×2 (09:10→19:40)
[2019-01-04] MEDS: DIGOXIN 0.125 MG TAB PO SCH (16:28)
[2019-01-04] MEDS ORDERED: AZITHROMYCIN 500 MG in DEXTROSE 5% 250 ML IV ONE (18:00)
[2019-01-04] MEDS: cefTRIAXone SODIUM 2,000 MG in DEXTROSE 5% 50 ML IV SCH (18:10)
[2019-01-04] MEDS: TRAZODONE HCL 100 MG TAB PO SCH (19:41)
[2019-01-04] MEDS: QUETIAPINE FUMARATE 300 MG TABLET PO SCH (19:43)
--- NOTE | 2019-01-04 23:11 | Hospitalist Progress Note ---
Date of Service January 04, 2019 Assessment & Plan (1) MONSALVE (dyspnea on exertion): Ms. Carson is a 58 year old female with PMH chronic systolic CHF (EF 15-20% Jul 2018) , a.fib, biV pacer placement, pulmonary HTN, COPD, chronic pericardial effusion, anxiety and schizoaffective disorder who presents to the emergency department earlier this morning and again this evening due to worsening shortness of breath. Denies cough, fevers or chills, chest pain or abdominal pain, no change in urinary or bowel habits. Increasing MONSALVE with her regular activities at home. Has been admitted to [facility] several times since May 2018, due to worsening shortness of breath. Is on 2-3L O2, and is at her base line oxygen need here. She is visibly short of breath and cannot catch her breath going from the bed to the bathroom. Does mention that she is noncompliant with inhalers because she believes they cause her blood sugar to be elevated, and also insurance does not cover them for her. Given 120mg IV lasix in ED with adequate output. MONSALVE -EXTENSIVE work up done in previous visits -- appears to be multifactorial CHF/pulm HTN/COPD/pericardial effusion/mixed with anxiety features -interestingly, pt is at her baseline O2 requirement at rest, however does become increasingly dyspnic while walking -pt's weight is not significantly elevated from her discharge weight, she appears to be at her dry weight -her afib is rate controlled -she is afebrile, and with only mild leukocytosis -BNP is elevated but not from what her baseline appears to be -thankfully no dynamic EKG changes, and her trop remains normal -is seen by both cardiology and pulmonology in the outpatient setting, was due to go to CHF clinic today. -will cosult cardio and consult pulmonary. Plan Agree that this is multifactorial. At this point, she has not improved with diuretics, may have underlying copd exacerbation. Will place patient on antibitoics and will monitor. Will cont. tesalon pearles and guasifensin FEN/GI: heart healthy/T2DM/low sodium. Caution against fluids. DVT ppx: on xarelto for AF CODE STATUS: FULL DISPO: Med/tele. (2) Prediabetes: A1C 6.0 in August. -continue metformin. -T2DM diet. (3) CHF (congestive heart failure): EF 15% on last echo, as above -here for diuresis -plan as above (4) Permanent atrial fibrillation: -rate controlled, continue Digoxin, metoprolol (5) Pulmonary hypertension: (6) Pericardial effusion: (7) Schizoaffective disorder: continue home meds: trazodone, quetiapine, hydroxizine (8) COPD (chronic obstructive pulmonary disease) exacerbation: Duonebs as above; antibiotics ordered (9) Oxygen dependent: 2-3 liters is baseline Spent 35 minutes in management of patient. (2) Prediabetes: (3) CHF (congestive heart failure): (4) Permanent atrial fibrillation: (5) Pulmonary hypertension: (6) Pericardial effusion: (7) Schizoaffective disorder: (8) COPD (chronic obstructive pulmonary disease): (9) Oxygen dependent: Subjective Patient reports no signifcant improvement since yesterday. She is still coughing and SOB. Review of Systems Review of Systems: All systems reviewed & are unremarkable except as noted in HPI & below Physical Exam Physical Exam: Vitals noted and within normal limits. GENERAL: Awake, alert to person, place, and time, nontoxic-appearing, in no distress. HENT: Normocephalic, atraumatic. Nasal cannula in place. Mucus membranes appear moist. EYES: Normal conjunctiva. Sclera non-icteric. EOMI. NECK: Supple. Full range of motion. No JVD. RESPIRATORY: Diminished bilaterally, no wheezing or rhonchi. Increased work of breathing. CARDIAC: Irreg/irreg, rate <100 on monitor. Extremities warm and well perfused, ABDOMEN: Soft, non-distended. LOWER EXTREMITIES: Inspection of calves reveal equal size bilaterally. They are non-tender. No edema. No discoloration. NEURO: No gross focal motor deficits noted. Sensation in tact. CN II-XII grossly in tact. . SKIN: Rash not present. No jaundice noted. Significant lesions not present. PSYCH: Appropriate mood and affect. Cooperative. Results & Data Vital Signs (Past 12 Hours) Vital Signs Temp Pulse Resp BP Pulse Ox 01/04/19 23:01 36.7 C 82 18 85/65 L 95 01/04/19 20:03 83 16 97 01/04/19 19:33 36.5 C 73 17 105/76 96 01/04/19 15:23 84 22 99 01/04/19 15:21 36.4 C L 86 17 103/72 95 01/04/19 11:48 76 16 87/65 L 100 01/04/19 11:24 81 20 97 PG Care Time/CCT Total # of Minutes Spent Total Time Spent with Patient: Total time spent is greater than 50% in coordination of care (as documented) at patient's floor/unit and/or counseling patient: (1) CHF (congestive heart failure) Heart failure chronicity: unspecified Heart failure type: unspecified Q ualified Code(s): I50.9 - Heart failure, unspecified (2) Schizoaffective disorder Schizoaffective disorder type: other Qualified Code(s): F25.8 - Other schizoaffective disorders (3) COPD (chronic obstructive pulmonary disease) COPD type: unspecified COPD Qualified Code(s): J44.9 - Chronic obstructive pulmonary disease, unspecified
[2019-01-05] MEDS: BENZONATATE 100 MG CAPSULE PO PRN ×3 (00:36→21:48)
[2019-01-05] MEDS: guaiFENesin SUGAR FREE 100 MG/5 ML UDC PO PRN ×2 (03:26→08:04)
[2019-01-05 05:58] LABS: Basophils # (auto) 0.02 K/uL (0-0.2); Basophils % (auto) 0.2 %; Hemoglobin 10.8 g/dL (12.0-16.0); Immature Granulocytes # (auto) 0.01 K/uL (0.00-0.02); Immature Granulocytes % (auto) 0.1 %; Lymphocytes # (auto) 2.56 K/uL (1.2-3.4); Mean Corpuscular Hgb Conc 31.8 g/dL (32-36); Mean Corpuscular Volume 86.5 fL (80-100); Mean Platelet Volume 9.8 fL (7.4-10.4); Monocytes # (auto) 0.51 K/uL (0.11-0.59); Monocytes % (auto) 5.2 %; Neutrophils # (auto) 6.55 K/uL (1.4-6.5); Neutrophils % (auto) 66.5 %; Platelet Count 234 K/uL (130-400); RDW Coefficient of Variation 17.1 % (11.5-14.5); RDW Standard Deviation 53.6 fL (36.4-46.3); Red Blood Count 3.93 M/uL (4.2-5.4); White Blood Count 9.85 K/uL (4.8-10.8)
[2019-01-05 06:37] LABS: BUN Creatinine Ratio 20.6 (10-20); Calcium 8.9 mg/dl (8.5-10.1); Creatinine Clr Calc Pharmacy 97.1 ml/min; Est GFR (African American) 92.1; Est GFR (Non-African American) 79.4; Potassium 3.6 mmol/L (3.5-5.1)
[2019-01-05] MEDS: ALBUT/IPRATROP 3MG/0.5MG NEB 3 ML VIAL NEB SCH ×4 (07:31→19:15)
[2019-01-05] MEDS: SACUBITRIL-VALSARTAN 24-26 MG TAB PO SCH (08:05)
[2019-01-05] MEDS: RIVAROXABAN 20 MG TAB PO SCH (08:05)
[2019-01-05] MEDS: ATORVASTATIN 10 MG TAB PO SCH (08:05)
[2019-01-05] MEDS: METFORMIN HCL 500 MG TAB PO SCH ×2 (08:05→16:06)
[2019-01-05] MEDS: GABAPENTIN 600 MG TAB PO SCH ×2 (08:05→20:42)
[2019-01-05] MEDS: POTASSIUM CHLORIDE 20 MEQ TABCR PO SCH ×2 (08:06→20:42)
[2019-01-05] MEDS: PANTOprazole 40 MG TAB PO SCH (08:06)
[2019-01-05] MEDS: METOPROLOL SUCC 50MG EXT REL TAB PO SCH (08:06)
[2019-01-05] MEDS: QUETIAPINE FUMARATE 100 MG TABLET PO SCH (08:22)
--- NOTE | 2019-01-05 11:02 | Cardiology Progress Note ---
Date of Service January 05, 2019 Assessment & Plan (1) SOB (shortness of breath): Multifactorial. Possibly amount of pulmonary vascular congestion. Her BNP was elevated at the time of admission. She is not appear to have significant peripheral edema. However, she is also not affected a significant diuresis since she has been admitted. I think increasing her diuretic and monitoring her symptoms would be worthwhile. Will need to follow her electrolytes and renal function closely. In the past, we have been very aggressive with her diuresis only to discover that a lot of her symptoms seem to be more pulmonary related. (2) CHF (congestive heart failure): Will continue on her current medical regimen with an increased dose of Lasix. (3) Cardiac defibrillator in place: She did have 2 episodes of ventricular fibrillation over the past 2 months. Curiously, she is not appear to have symptoms with either and was not aware of the therapy provided by her device. It is possible that the events noted were related to long short episodes in the setting of her atrial fibrillation. I activated ventricular rate smoothing in the hopes of preventing more episodes. I do not believe we have the option of increasing her beta- julee given her relative hypotension. Do not believe we need amiodarone or antiarrhythmic currently as the events themselves were fairly remote. (4) A-fib: Permanent. She appears to have adequate rate control. She will continue on rivaroxaban indefinitely. (5) Pericardial effusion: Her echocardiogram revealed similar findings to her last echocardiogram. She continues to have a well-defined and posterior pericardial effusion. Do not believe this compromises her LV function. I do not believe this is changed significantly. (6) Severe mitral regurgitation: (7) Nonischemic cardiomyopathy: Patient underwent cardiac catheterization in 2006 without evidence of significant obstructive coronary disease. Current outpatient regimen includes beta-blockade and Entresto. LV function similar to old evaluation on her current echocardiogram. Subjective This point patient claims to be feeling about the same. She continues to have an element of dyspnea with activity. She has been ambulatory back and forth to the bathroom with continued dyspnea. She has not ambulated much more than that. She also has a nonproductive cough. Review of Systems Review of Systems: Per HPI Physical Exam Physical Exam: She is alert and oriented x3. Mood affect appear normal. She answered all questions appropriately. HEENT: Sclerae are anicteric. Pupils are equal and reactive to light and accommodation. Extraocular movements were intact. Neuro: Cranial nerves intact Neck: Examination of the submandibular region did not reveal any significant lymphadenopathy. Carotids are palpable bilaterally and free of bruits on auscultation. There was no evidence of jugular venous distention. The thyroid was not enlarged. Lungs: No rales, but some expiratory wheezing. Normal respiratory effort. Cardiac: The rhythm was irregular. S1 and S2 were normal. There are no murmurs on examination. The PMI was not markedly displaced on palpation. Abdomen: The abdomen was soft and nontender. Extremities: Patient has bilateral radial pulses that are equal in intensity. There is no evidence cyanosis or clubbing. There was no evidence of significant peripheral edema bilaterally. Skin: There are no rashes noted on examination today. Results & Data Vital Signs (Past 12 Hours) Vital Signs Temp Pulse Pulse Resp BP BP Pulse Ox 01/05/19 07:38 36.6 C 80 18 87/57 L 94 01/05/19 07:33 81 20 97 01/05/19 04:00 36.3 C L 79 23 108/78 94 01/05/19 00:22 93 H 01/04/19 23:34 83 01/04/19 23:01 36.7 C 82 18 85/65 L 95 (1) CHF (congestive heart failure) Heart failure chronicity: unspecified Heart failure type: unspecified Qualified Code(s): I50.9 - Heart failure, unspecified
[2019-01-05] MEDS: ACETAMINOPHEN 325 MG TAB PO PRN (16:06)
[2019-01-05] MEDS: DIGOXIN 0.125 MG TAB PO SCH (16:06)
[2019-01-05] MEDS ORDERED: FUROSEMIDE 80 MG in SYRINGE 0 ML IV SCH (17:00)
[2019-01-05] MEDS: cefTRIAXone SODIUM 2,000 MG in DEXTROSE 5% 50 ML IV SCH (18:05)
[2019-01-05] MEDS: TRAZODONE HCL 100 MG TAB PO SCH (20:42)
[2019-01-05] MEDS: QUETIAPINE FUMARATE 300 MG TABLET PO SCH (20:43)
--- NOTE | 2019-01-05 20:52 | Hospitalist Progress Note ---
Date of Service January 05, 2019 Assessment & Plan (1) MONSALVE (dyspnea on exertion): Ms. Carson is a 58 year old female with PMH chronic systolic CHF (EF 15-20% Jul 2018) , a.fib, biV pacer placement, pulmonary HTN, COPD, chronic pericardial effusion, anxiety and schizoaffective disorder who presents to the emergency department earlier this morning and again this evening due to worsening shortness of breath. Denies cough, fevers or chills, chest pain or abdominal pain, no change in urinary or bowel habits. Increasing MONSALVE with her regular activities at home. Has been admitted to [facility] several times since May 2018, due to worsening shortness of breath. Is on 2-3L O2, and is at her base line oxygen need here. She is visibly short of breath and cannot catch her breath going from the bed to the bathroom. Does mention that she is noncompliant with inhalers because she believes they cause her blood sugar to be elevated, and also insurance does not cover them for her. Given 120mg IV lasix in ED with adequate output. MONSALVE -EXTENSIVE work up done in previous visits -- appears to be multifactorial CHF/pulm HTN/COPD/pericardial effusion/mixed with anxiety features -interestingly, pt is at her baseline O2 requirement at rest, however does become increasingly dyspnic while walking -pt's weight is not significantly elevated from her discharge weight, she appears to be at her dry weight -her afib is rate controlled -she is afebrile, and with only mild leukocytosis -BNP is elevated but not from what her baseline appears to be -thankfully no dynamic EKG changes, and her trop remains normal -is seen by both cardiology and pulmonology in the outpatient setting, was due to go to CHF clinic today. -will consult cardio and consult pulmonary. Plan No signifcant improvement after instituting antibitoics Agree that this is multifactorial. At this point, she has not improved with diuretics, may have underlying copd exacerbation. patient on antibiotics since 01/04 and will monitor. Will cont. tessalon pearles and guasifensin may consider consulting pulmonary in AM. Also may benefit from steroids. FEN/GI: heart healthy/T2DM/low sodium. Caution against fluids. DVT ppx: on xarelto for AF CODE STATUS: FULL DISPO: Med/tele. (2) Prediabetes: A1C 6.0 in August. -continue metformin. -T2DM diet. (3) CHF (congestive heart failure): EF 15% on last echo, as above -here for diuresis -plan as above (4) Permanent atrial fibrillation: -rate controlled, continue Digoxin, metoprolol (5) Pulmonary hypertension: (6) Pericardial effusion: (7) Schizoaffective disorder: continue home meds: trazodone, quetiapine, hydroxizine (8) COPD (chronic obstructive pulmonary disease) exacerbation: Duonebs as above; antibiotics ordered (9) Oxygen dependent: 2-3 liters is baseline Spent 35 minutes in management of patient. (2) Prediabetes: (3) CHF (congestive heart failure): (4) Permanent atrial fibrillation: (5) Pulmonary hypertension: (6) Pericardial effusion: (7) Schizoaffective disorder: (8) COPD (chronic obstructive pulmonary disease): (9) Oxygen dependent: Subjective Patient reports she has continued SOB on exertion, even at short distances such as walking towards the bathroom. She reports this is not her norm and that at home she has been able to ambulate without feeling so short of breath. Patient reports that she is started to feel depressed from her condition. Review of Systems Review of Systems: All systems reviewed & are unremarkable except as noted in HPI & below Physical Exam Physical Exam: Vitals noted and within normal limits. GENERAL: Awake, alert to person, place, and time, nontoxic-appearing, in no distress. HENT: Normocephalic, atraumatic. Nasal cannula in place. Mucus membranes appear moist. EYES: Normal conjunctiva. Sclera non-icteric. EOMI. NECK: Supple. Full range of motion. No JVD. RESPIRATORY: Diminished bilaterally, no wheezing or rhonchi. CARDIAC: Irreg/irreg, rate <100 on monitor. Extremities warm and well perfused, ABDOMEN: Soft, non-distended. LOWER EXTREMITIES: Inspection of calves reveal equal size bilaterally. They are non-tender. No edema. No discoloration. NEURO: No gross focal motor deficits noted. Sensation in tact. CN II-XII grossly in tact. . SKIN: Rash not present. No jaundice noted. Significant lesions not present. PSYCH: Appropriate mood and affect. Cooperative. Results & Data Vital Signs (Past 12 Hours) Vital Signs Temp Pulse Pulse Resp BP BP Pulse Ox 01/05/19 20:39 90 126/86 01/05/19 19:37 102/64 01/05/19 19:24 36.3 C L 91 H 18 100 01/05/19 19:17 106 H 18 96 01/05/19 16:06 98 H 01/05/19 15:08 87 18 96 01/05/19 15:05 36.4 C L 87 24 118/80 100 01/05/19 11:56 36.6 C 80 18 106/73 98 01/05/19 11:15 97 H 18 98 PG Care Time/CCT Total # of Minutes Spent Total Time Spent with Patient: Total time spent is greater than 50% in coordination of care (as documented) at patient's floor/unit and/or counseling patient: (1) CHF (congestive heart failure) Heart failure chronicity: unspecified Heart failure type: unspecified Qualif ied Code(s): I50.9 - Heart failure, unspecified (2) Schizoaffective disorder Schizoaffective disorder type: other Qualified Code(s): F25.8 - Other schizoaffective disorders (3) COPD (chronic obstructive pulmonary disease) COPD type: unspecified COPD Qualified Code(s): J44.9 - Chronic obstructive pulmonary disease, unspecified
[2019-01-06] MEDS: guaiFENesin SUGAR FREE 100 MG/5 ML UDC PO PRN ×3 (03:12→19:33)
[2019-01-06] MEDS: ALBUT/IPRATROP 3MG/0.5MG NEB 3 ML VIAL NEB SCH ×4 (07:18→19:13)
[2019-01-06] MEDS: QUETIAPINE FUMARATE 100 MG TABLET PO SCH (08:19)
[2019-01-06] MEDS: ATORVASTATIN 10 MG TAB PO SCH (08:19)
[2019-01-06] MEDS: SACUBITRIL-VALSARTAN 24-26 MG TAB PO SCH (08:20)
[2019-01-06] MEDS: GABAPENTIN 600 MG TAB PO SCH ×2 (08:20→19:51)
[2019-01-06] MEDS: PANTOprazole 40 MG TAB PO SCH (08:20)
[2019-01-06] MEDS: POTASSIUM CHLORIDE 20 MEQ TABCR PO SCH ×2 (08:20→19:51)
[2019-01-06] MEDS: METFORMIN HCL 500 MG TAB PO SCH ×2 (08:20→16:14)
[2019-01-06] MEDS: METOPROLOL SUCC 50MG EXT REL TAB PO SCH (08:20)
[2019-01-06] MEDS: RIVAROXABAN 20 MG TAB PO SCH (08:20)
[2019-01-06] MEDS ORDERED: predniSONE 20 MG TAB PO ONE (12:00)
[2019-01-06] MEDS: DIGOXIN 0.125 MG TAB PO SCH (15:27)
[2019-01-06] MEDS: FUROSEMIDE 40 MG TAB PO SCH (15:27)
--- NOTE | 2019-01-06 15:40 | Hospitalist Progress Note ---
Date of Service January 06, 2019 Assessment & Plan (1) MONSALVE (dyspnea on exertion): Ms. Carson is a 58 year old female with PMH chronic systolic CHF (EF 15-20% Jul 2018) , a.fib, biV pacer placement, pulmonary HTN, COPD, chronic pericardial effusion, anxiety and schizoaffective disorder who presents to the emergency department earlier this morning and again this evening due to worsening shortness of breath. Denies cough, fevers or chills, chest pain or abdominal pain, no change in urinary or bowel habits. Increasing MONSALVE with her regular activities at home. Has been admitted to [facility] several times since May 2018, due to worsening shortness of breath. Is on 2-3L O2, and is at her base line oxygen need here. She is visibly short of breath and cannot catch her breath going from the bed to the bathroom. Does mention that she is noncompliant with inhalers because she believes they cause her blood sugar to be elevated, and also insurance does not cover them for her. again, multifactorial with chronic systolic heart failure, atrial fibrillation, COPD symptoms improving slowly no evidence that this is acute heart failure, her weight is stable and euvolemic she was wheezing more on admission, opened up with nebulizers will start on Prednisone 40mg daily and look for improvement in symptoms stop antibiotics as there is no clear infection (2) Prediabetes: A1C 6.0 in August. -continue metformin. -T2DM diet. Novolog SS, pay close attention with starting Prednisone (3) CHF (congestive heart failure): chronic systolic heart failure, EF is 15% examines euvolemic maintain normal home dosing for Lasix at 40mg PO BID continue Entresto (4) Permanent atrial fibrillation: -rate controlled, continue Digoxin, metoprolol continue Xarelto for anticoagulation (5) Pulmonary hypertension: could be contributing to dyspnea already on oxygen (6) Pericardial effusion: (7) Schizoaffective disorder: continue home meds: trazodone, quetiapine, hydroxizine (8) COPD (chronic obstructive pulmonary disease): (9) Oxygen dependent: on 2-3L at baseline, currently on the same level Subjective patient reports that her dyspnea is not improved very much she did not really respond to the increased dose of Lasix the respiratory therapist reports that her lungs sound much better, less tight than time of admission she was not really using inhalers appropriately from the way she describes appreciate cardiology notes, does not appear that heart failure is the issue causing the dyspnea no labs done today patient is eating well, moving bowels no chest pain or pressure, no fever minimal cough, has some yellow phlegm in the morning but clears up quickly Review of Systems Review of Systems: All systems reviewed & are unremarkable except as noted in HPI & below Respiratory: + cough, + dyspnea, + dyspnea on exertion and + sputum production (mostly white, frothy); no wheezing Cardiovascular: no chest pain and no edema Gastrointestinal: no abdominal pain, no nausea, no vomiting, no constipation and no diarrhea/loose stools Physical Exam Constitutional: WD/WN, vitals as above + overweight Eyes: PERRL, conjunctivae normal, anicteric sclerae ENMT: external ear and nose normal, oropharynx normal Neck: trachea midline, no thyromegaly Respiratory: normal respiratory effort, lungs clear to auscultation Cardiovascular: Rate/Rhythm: regular rate and + irregularly irregular Heart Sounds: normal S1 and normal S2; no murmur Extremities: normal capillary refill; no edema Gastrointestinal (Abdomen): normal bowel sounds, soft, nontender, no hepatosplenomegaly Musculoskeletal: no cyanosis or clubbing, extremities motor strength 5/5 Skin: no rashes, warm and dry Neurologic: patellar DTR's 2+ bilat, sensation intact and PERRL, EOMI, accommodation nl, no face palsy, no dysarthria Psychiatric: A+Ox3, euthymic affect Lymphatic: no cervical or axillary lymphadenopathy Results & Data Vital Signs (Past 12 Hours) Vital Signs Temp Pulse Pulse Resp BP BP Pulse Ox 01/06/19 15:27 105 H 01/06/19 15:03 86 18 91 01/06/19 14:54 94 H 18 112/95 98 01/06/19 11:19 36.5 C 85 18 86/67 L 95 01/06/19 11:17 73 18 96 01/06/19 07:46 36.8 C 78 18 107/73 98 01/06/19 07:20 84 18 98 Medications Administered Current Inpatient Medications Acetaminophen (Tylenol) 650 mg PO Q4H PRN PRN Reason: Pain or Fever Stop: 02/01/19 23:06 Last Admin: 01/05/19 16:06 Dose: 650 mg Documented by: Al Hydrox/Mg Hydrox/Simethicone (Maalox) 15 ml PO Q4H PRN PRN Reason: Dyspepsia Stop: 02/01/19 23:06 Albuterol (Duoneb) 3 ml NEB QIDR [facility] Stop: 02/02/19 07:59 Last Admin: 01/06/19 15:02 Dose: 3 ml Documented by: Atorvastatin Calcium (Lipitor) 10 mg PO DAILY [facility] Stop: 02/02/19 08:59 Last Admin: 01/06/19 08:19 Dose: 10 mg Documented by: Benzonatate (Tessalon Perle) 100 mg PO TID PRN PRN Reason: Cough Stop: 02/02/19 01:07 Last Admin: 01/05/19 21:48 Dose: 100 mg Documented by: Digoxin (Lanoxin) 0.125 mg PO DAILY@1600 [facility] Stop: 02/02/19 15:59 Last Admin: 01/06/19 15:27 Dose: 0.125 mg Documented by: Diphenhydramine HCl (Benadryl Capsule) 25 mg PO QAM [facility] Stop: 02/02/19 08:59 Last Admin: 01/06/19 08:24 Dose: 25 mg Documented by: Docusate Sodium (Colace) 100 mg PO BID PRN PRN Reason: Constipation Stop: 02/01/19 23:06 Furosemide (Lasix) 40 mg PO BID17 [facility] Stop: 02/05/19 16:59 Last Admin: 01/06/19 15:27 Dose: 40 mg Documented by: Gabapentin (Neurontin) 600 mg PO BID [facility] Stop: 02/01/19 23:06 Last Admin: 01/06/19 08:20 Dose: 600 mg Documented by: Guaifenesin (Robitussin Sugar Free Syrup) 100 mg PO Q6H PRN PRN Reason: Cough Stop: 02/02/19 18:14 Last Admin: 01/06/19 08:40 Dose: 100 mg Documented by: Hydroxyzine HCl (Vistaril) 50 mg PO HS [facility] Stop: 02/02/19 20:59 Last Admin: 01/05/19 20:43 Dose: 50 mg Documented by: Ceftriaxone Sodium 2,000 mg/ (Dextrose) 70 mls @ 100 mls/hr IV Q24H [facility]; Protocol Stop: 01/11/19 17:59 Last Infusion: 01/05/19 18:53 Dose: Infused Documented by: Magnesium Hydroxide (Milk Of Magnesia) 30 ml PO Q12H PRN PRN Reason: Constipation Stop: 02/01/19 23:06 Metformin HCl (Glucophage) 500 mg PO BIDM [facility] Stop: 02/02/19 07:59 Last Admin: 01/06/19 08:20 Dose: 500 mg Documented by: Metoprolol Succinate ([facility] Xl) [facility] Stop: 02/02/19 08:59 Last Admin: 01/06/19 08:20 Dose: 200 mg Documented by: Ondansetron HCl (Zofran) 4 mg IV Q6H PRN PRN Reason: Nausea Stop: 02/01/19 23:06 Pantoprazole Sodium (Protonix) [facility] Stop: 02/02/19 08:59 Last Admin: 01/06/19 08:20 Dose: 40 mg Documented by: Polyethylene Glycol (Miralax Powder Packet) 17 gm PO DAILY PRN PRN Reason: Constipation Stop: 02/01/19 23:06 Last Admin: 01/03/19 15:18 Dose: 17 gm Documented by: Potassium Chloride (Klor-Con M20) 20 meq PO BID [facility] Stop: 02/02/19 20:59 Last Admin: 01/06/19 08:20 Dose: 20 meq Documented by: Quetiapine Fumarate (Seroquel) 100 [facility] Stop: 02/02/19 08:59 Last Admin: 01/06/19 08:19 Dose: 100 mg Documented by: Quetiapine Fumarate (Seroquel) 300 mg PO [facility] Stop: 02/01/19 23:29 Last Admin: 01/05/19 20:43 Dose: 300 mg Documented by: Rivaroxaban (Xarelto) 20 mg PO DAILY [facility] Stop: 02/02/19 08:59 Last Admin: 01/06/19 08:20 Dose: 20 mg Documented by: Sacubitril/Valsartan (Entresto 24/26mg) 1 tab PO DAILY [facility] Stop: 02/02/19 08:59 Last Admin: 01/06/19 08:20 Dose: 1 tab Documented by: Trazodone HCl (Desyrel) 200 mg PO [facility] Stop: 02/02/19 20:59 Last Admin: 01/05/19 20:42 Dose: 200 mg Documented by: PG Care Time/CCT Total # of Minutes Spent Total Time Spent with Patient: Total time spent is greater than 50% in coordination of care (as documented) at patient's floor/unit and/or counseling patient: (1) CHF (congestive heart failure) Heart failure chronicity: unspecified Heart failure type: unspecified Qualified Code(s): I50.9 - Heart failure, unspecified (2) Schizoaffective disorder Schizoaffective disorder type: other Qualified Code(s): F25.8 - Other schizoaffective disorders (3) COPD (chronic obstructive pulmonary disease) COPD type: unspecified COPD Qualified Code(s): J44.9 - Chronic obstructive pulmonary disease, unspecified
[2019-01-06] MEDS: cefTRIAXone SODIUM 2,000 MG in DEXTROSE 5% 50 ML IV SCH (18:22)
[2019-01-06] MEDS: ACETAMINOPHEN 325 MG TAB PO PRN (19:09)
[2019-01-06] MEDS: BENZONATATE 100 MG CAPSULE PO PRN (19:51)
[2019-01-06] MEDS: QUETIAPINE FUMARATE 300 MG TABLET PO SCH (19:51)
[2019-01-06] MEDS: TRAZODONE HCL 100 MG TAB PO SCH (19:52)
[2019-01-07] MEDS: ALBUT/IPRATROP 3MG/0.5MG NEB 3 ML VIAL NEB SCH ×4 (07:00→19:19)
[2019-01-07] MEDS: POTASSIUM CHLORIDE 20 MEQ TABCR PO SCH ×2 (08:10→20:42)
[2019-01-07] MEDS: QUETIAPINE FUMARATE 100 MG TABLET PO SCH (08:10)
[2019-01-07] MEDS: PANTOprazole 40 MG TAB PO SCH (08:10)
[2019-01-07] MEDS: FUROSEMIDE 40 MG TAB PO SCH ×2 (08:10→16:54)
[2019-01-07] MEDS: GABAPENTIN 600 MG TAB PO SCH ×2 (08:10→20:42)
[2019-01-07] MEDS: ATORVASTATIN 10 MG TAB PO SCH (08:10)
[2019-01-07] MEDS: METOPROLOL SUCC 50MG EXT REL TAB PO SCH (08:10)
[2019-01-07] MEDS: SACUBITRIL-VALSARTAN 24-26 MG TAB PO SCH (08:10)
[2019-01-07] MEDS: RIVAROXABAN 20 MG TAB PO SCH (08:10)
[2019-01-07] MEDS: METFORMIN HCL 500 MG TAB PO SCH ×2 (08:11→16:54)
[2019-01-07] MEDS: BENZONATATE 100 MG CAPSULE PO PRN ×2 (08:11→16:52)
[2019-01-07 11:26] LABS: BUN Creatinine Ratio 16.8 (10-20); Calcium 9.5 mg/dl (8.5-10.1); Creatinine Clr Calc Pharmacy 97.9 ml/min; Est GFR (African American) 93.4; Est GFR (Non-African American) 80.6; Potassium 4.1 mmol/L (3.5-5.1)
--- NOTE | 2019-01-07 14:06 | Hospitalist Progress Note ---
Date of Service January 07, 2019 Assessment & Plan (1) MONSALVE (dyspnea on exertion): Ms. Carson is a 58 year old female with PMH chronic systolic CHF (EF 15-20% Jul 2018) , a.fib, biV pacer placement, pulmonary HTN, COPD, chronic pericardial effusion, anxiety and schizoaffective disorder who presents to the emergency department earlier this morning and again this evening due to worsening shortness of breath. Denies cough, fevers or chills, chest pain or abdominal pain, no change in urinary or bowel habits. Increasing MONSALVE with her regular activities at home. Has been admitted to [facility] several times since May 2018, due to worsening shortness of breath. Is on 2-3L O2, and is at her base line oxygen need here. She is visibly short of breath and cannot catch her breath going from the bed to the bathroom. Does mention that she is noncompliant with inhalers because she believes they cause her blood sugar to be elevated, and also insurance does not cover them for her. again, multifactorial with chronic systolic heart failure, atrial fibrillation, pulmonary HTN, some evidence of restrictive and obstructive lung disease symptoms improving slowly, more improvement since starting Prednisone no evidence that this is acute heart failure, her weight is stable and euvolemic she was wheezing more on admission, opened up with nebulizers stop antibiotics as there is no clear infection will continue with nebulizers and Prednisone (2) Prediabetes: A1C 6.0 in August. -continue metformin. -T2DM diet. Novolog SS, pay close attention with starting Prednisone monitor for hypoglycemia (3) CHF (congestive heart failure): chronic systolic heart failure, EF is 15% continues to examines euvolemic maintain normal home dosing for Lasix at 40mg PO BID continue Entresto (4) Permanent atrial fibrillation: -rate controlled, continue Digoxin, metoprolol continue Xarelto for anticoagulation (5) Pulmonary hypertension: could be contributing to dyspnea already on oxygen at 2-3L continuous no evidence of desaturations (6) Pericardial effusion: h/o such, no current issues (7) Schizoaffective disorder: continue home meds: trazodone, quetiapine, hydroxizine (8) COPD (chronic obstructive pulmonary disease): PFT in September 2018 with some evidence of restrictive pattern but also mild obstructive pattern had a favorable response to bronchodilators patient ran out of Spiriva and Symbicort, reports that she has issues with insurance coverage for these medications follows with pulmonology as outpatient will ask otr flatbed driver to check on cost, copay (9) Oxygen dependent: on 2-3L at baseline, currently on the same level Subjective patient still experiencing profound dyspnea on exertion, just with minimal exertion walking to bathroom she had been removing her oxygen tubing because it was not long enough advised her to keep the oxygen in place, RN got longer tubing discussed outpatient work up for dyspnea and reviewed the outpatient records she had PFT in September 2018 that showed an overall decreased ventilatory capacity and she also had a slight obstructive flow pattern that was reversible with bronchodilators thus she had mild reactive airway disease she says that she was given samples of both Symbicort and Spiriva, but her insurance will not cover them, thus she was not using them she also had a sleep study that did not show any evidence of sleep apnea, this was with Dr. Faria she does admit to feeling a little better since starting the Prednisone yesterday Review of Systems Review of Systems: All systems reviewed & are unremarkable except as noted in HPI & below Constitutional: + fatigue and + weakness; no fever Respiratory: + cough, + dyspnea and + dyspnea on exertion; no pain with cough, no sputum production and no wheezing Cardiovascular: no chest pain and no edema Gastrointestinal: no abdominal pain, no nausea, no vomiting, no constipation and no diarrhea/loose stools Physical Exam Constitutional: WD/WN, vitals as above + overweight Eyes: PERRL, conjunctivae normal, anicteric sclerae ENMT: external ear and nose normal, oropharynx normal Neck: trachea midline, no thyromegaly Respiratory: normal respiratory effort, lungs clear to auscultation Cardiovascular: Rate/Rhythm: regular rate and + irregularly irregular Heart Sounds: normal S1 and normal S2; no murmur Extremities: normal capillary refill; no edema Gastrointestinal (Abdomen): normal bowel sounds, soft, nontender, no hepatosplenomegaly Musculoskeletal: no cyanosis or clubbing, extremities motor strength 5/5 Skin: no rashes, warm and dry Neurologic: patellar DTR's 2+ bilat, sensation intact and PERRL, EOMI, accommodation nl, no face palsy, no dysarthria Psychiatric: A+Ox3, euthymic affect Lymphatic: no cervical or axillary lymphadenopathy Results & Data Vital Signs (Past 12 Hours) Vital Signs Temp Pulse Resp BP BP Pulse Ox 01/07/19 11:42 82 20 94/56 L 99 01/07/19 11:20 83 16 98 01/07/19 08:00 36.4 C L 84 20 98/79 L 98 01/07/19 07:01 78 16 99 01/07/19 03:57 36.5 C 88 20 110/82 97 Laboratory Results Laboratory Results - last 24 hr 01/07/19 10:34 Sodium 141 Potassium 4.1 Chloride 103 Carbon Dioxide 33 H Anion Gap 5.0 BUN 14 Creatinine 0.81 Est Cr Clr Drug Dosing 97.9 Est GFR ( Amer) 93.4 Est GFR (Non-Af Amer) 80.6 BUN/Creatinine Ratio 16.8 Glucose 88 Calcium 9.5 Medications Administered Current Inpatient Medications Acetaminophen (Tylenol) 650 mg PO Q4H PRN PRN Reason: Pain or Fever Stop: 02/01/19 23:06 Last Admin: 01/06/19 19:09 Dose: 650 mg Documented by: Al Hydrox/Mg Hydrox/Simethicone (Maalox) 15 ml PO Q4H PRN PRN Reason: Dyspepsia Stop: 02/01/19 23:06 Albuterol (Duoneb) 3 ml NEB QIDR [facility] Stop: 02/02/19 07:59 Last Admin: 01/07/19 11:19 Dose: 3 ml Documented by: Atorvastatin Calcium (Lipitor) 10 mg PO DAILY [facility] Stop: 02/02/19 08:59 Last Admin: 01/07/19 08:10 Dose: 10 mg Documented by: Benzonatate (Tessalon Perle) 100 mg PO TID PRN PRN Reason: Cough Stop: 02/02/19 01:07 Last Admin: 01/07/19 08:11 Dose: 100 mg Documented by: Digoxin (Lanoxin) 0.125 mg PO DAILY@1600 [facility] Stop: 02/02/19 15:59 Last Admin: 01/06/19 15:27 Dose: 0.125 mg Documented by: Diphenhydramine HCl (Benadryl Capsule) 25 mg PO QAM [facility] Stop: 02/02/19 08:59 Last Admin: 01/07/19 08:15 Dose: 25 mg Documented by: Docusate Sodium (Colace) 100 mg PO BID PRN PRN Reason: Constipation Stop: 02/01/19 23:06 Furosemide (Lasix) 40 mg PO BID17 [facility] Stop: 02/05/19 16:59 Last Admin: 01/07/19 08:10 Dose: 40 mg Documented by: Gabapentin (Neurontin) 600 mg PO BID [facility] Stop: 02/01/19 23:06 Last Admin: 01/07/19 08:10 Dose: 600 mg Documented by: Guaifenesin (Robitussin Sugar Free Syrup) 100 mg PO Q6H PRN PRN Reason: Cough Stop: 02/02/19 18:14 Last Admin: 01/06/19 19:33 Dose: 100 mg Documented by: Hydroxyzine HCl (Vistaril) 50 mg PO HS [facility] Stop: 02/02/19 20:59 Last Admin: 01/06/19 19:51 Dose: 50 mg Documented by: Magnesium Hydroxide (Milk Of Magnesia) 30 ml PO Q12H PRN PRN Reason: Constipation Stop: 02/01/19 23:06 Metformin HCl (Glucophage) 500 mg PO BIDM [facility] Stop: 02/02/19 07:59 Last Admin: 01/07/19 08:11 Dose: 500 mg Documented by: Metoprolol Su[facility]inate ([facility]l) [facility] Stop: 02/02/19 08:59 Last Admin: 01/07/19 08:10 Dose: Not Given Documented by: Ondansetron HCl (Zofran) 4 mg IV Q6H PRN PRN Reason: Nausea Stop: 02/01/19 23:06 Pantoprazole Sodium (Protonix) [facility] Stop: 02/02/19 08:59 Last Admin: 01/07/19 08:10 Dose: 40 mg Documented by: Polyethylene Glycol (Miralax Powder Packet) 17 gm PO DAILY PRN PRN Reason: Constipation Stop: 02/01/19 23:06 Last Admin: 01/03/19 15:18 Dose: 17 gm Documented by: Potassium Chloride (Klor-Con M20) 20 meq PO BID [facility] Stop: 02/02/19 20:59 Last Admin: 01/07/19 08:10 Dose: 20 meq Documented by: Quetiapine Fumarate (Seroquel) [facility] Stop: 02/02/19 08:59 Last Admin: 01/07/19 08:10 Dose: 100 mg Documented by: Quetiapine Fumarate (Seroquel) 300 mg PO HS [facility] Stop: 02/01/19 23:29 Last Admin: 01/06/19 19:51 Dose: 300 mg Documented by: Rivaroxaban (Xarelto) 20 mg PO DAILY [facility] Stop: 02/02/19 08:59 Last Admin: 01/07/19 08:10 Dose: 20 mg Documented by: Sacubitril/Valsartan (Entresto 24/26mg) 1 tab PO DAILY [facility] Stop: 02/02/19 08:59 Last Admin: 01/07/19 08:10 Dose: 1 tab Documented by: Trazodone HCl (Desyrel) 200 mg PO HS [facility] Stop: 02/02/19 20:59 Last Admin: 01/06/19 19:52 Dose: 200 mg Documented by: PG Care Time/CCT Total # of Minutes Spent Total Time Spent with Patient: Total time spent is greater than 50% in coordination of care (as documented) at patient's floor/unit and/or counseling patient: (1) CHF (congestive heart failure) Heart failure chronicity: unspecified Heart failure type: unspecified Qualified Code(s): I50.9 - Heart failure, unspecified (2) Schizoaffective disorder Schizoaffective disorder type: other Qualified Code(s): F25.8 - Other schizoaffective disorders (3) COPD (chronic obstructive pulmonary disease) COPD type: unspecified COPD Qualified Code(s): J44.9 - Chronic obstructive pulmonary disease, unspecified
[2019-01-07] MEDS: DOCUSATE SODIUM 100 MG CAP PO PRN (16:52)
[2019-01-07] MEDS: DIGOXIN 0.125 MG TAB PO SCH (16:53)
[2019-01-07] MEDS: guaiFENesin SUGAR FREE 100 MG/5 ML UDC PO PRN (20:41)
[2019-01-07] MEDS: QUETIAPINE FUMARATE 300 MG TABLET PO SCH (20:42)
[2019-01-07] MEDS: TRAZODONE HCL 100 MG TAB PO SCH (20:42)
[2019-01-07] MEDS ORDERED: COUGH DROP (SUGAR FREE) LOZ 24 LOZ/1 BOX BUCCAL PRN (22:29)
[2019-01-07] MEDS ORDERED: COUGH DROP (SUGAR FREE) LOZ 24 LOZ/1 BOX BUCCAL ONE (22:32)
[2019-01-08] MEDS: guaiFENesin SUGAR FREE 100 MG/5 ML UDC PO PRN (05:29)
[2019-01-08 06:17] LABS: Basophils # (auto) 0.03 K/uL (0-0.2); Basophils % (auto) 0.3 %; Eosinophils # (auto) 0.14 K/uL (0-0.5); Eosinophils % (auto) 1.4 %; Hematocrit (blood only) 33.5 % (37-47); Hemoglobin 10.7 g/dL (12.0-16.0); Immature Granulocytes # (auto) 0.02 K/uL (0.00-0.02); Immature Granulocytes % (auto) 0.2 %; Lymphocytes # (auto) 2.91 K/uL (1.2-3.4); Lymphocytes % (auto) 28.6 %; Mean Corpuscular Hgb Conc 31.9 g/dL (32-36); Mean Corpuscular Volume 86.6 fL (80-100); Mean Platelet Volume 9.3 fL (7.4-10.4); Monocytes # (auto) 0.57 K/uL (0.11-0.59); Monocytes % (auto) 5.6 %; Neutrophils # (auto) 6.52 K/uL (1.4-6.5); Neutrophils % (auto) 63.9 %; Platelet Count 253 K/uL (130-400); RDW Coefficient of Variation 16.9 % (11.5-14.5); RDW Standard Deviation 53.3 fL (36.4-46.3); Red Blood Count 3.87 M/uL (4.2-5.4); White Blood Count 10.19 K/uL (4.8-10.8)
[2019-01-08 06:49] LABS: BUN Creatinine Ratio 14.1 (10-20); Calcium 9.6 mg/dl (8.5-10.1); Est GFR (African American) 80.1; Est GFR (Non-African American) 69.1; Potassium 3.9 mmol/L (3.5-5.1)
[2019-01-08] MEDS: ALBUT/IPRATROP 3MG/0.5MG NEB 3 ML VIAL NEB SCH ×4 (07:03→19:22)
[2019-01-08] MEDS: GABAPENTIN 600 MG TAB PO SCH ×2 (08:14→20:05)
[2019-01-08] MEDS: POTASSIUM CHLORIDE 20 MEQ TABCR PO SCH ×2 (08:15→20:06)
[2019-01-08] MEDS: ATORVASTATIN 10 MG TAB PO SCH (08:15)
[2019-01-08] MEDS: SACUBITRIL-VALSARTAN 24-26 MG TAB PO SCH (08:15)
[2019-01-08] MEDS: PANTOprazole 40 MG TAB PO SCH (08:15)
[2019-01-08] MEDS: METOPROLOL SUCC 50MG EXT REL TAB PO SCH (08:16)
[2019-01-08] MEDS: QUETIAPINE FUMARATE 100 MG TABLET PO SCH (08:16)
[2019-01-08] MEDS: METFORMIN HCL 500 MG TAB PO SCH ×2 (08:17→16:58)
[2019-01-08] MEDS: FUROSEMIDE 40 MG TAB PO SCH ×2 (08:17→16:55)
[2019-01-08] MEDS: RIVAROXABAN 20 MG TAB PO SCH (08:17)
[2019-01-08] MEDS: DOCUSATE SODIUM 100 MG CAP PO PRN ×2 (08:30→20:10)
[2019-01-08] MEDS: BENZONATATE 100 MG CAPSULE PO PRN ×2 (13:08→20:12)
--- NOTE | 2019-01-08 15:15 | Hospitalist Progress Note ---
Date of Service January 08, 2019 Assessment & Plan (1) MONSALVE (dyspnea on exertion): Ms. Carson is a 58 year old female with PMH chronic systolic CHF (EF 15-20% Jul 2018) , a.fib, biV pacer placement, pulmonary HTN, COPD, chronic pericardial effusion, anxiety and schizoaffective disorder who presents to the emergency department earlier this morning and again this evening due to worsening shortness of breath. Denies cough, fevers or chills, chest pain or abdominal pain, no change in urinary or bowel habits. Increasing MONSALVE with her regular activities at home. Has been admitted to [facility] several times since May 2018, due to worsening shortness of breath. Is on 2-3L O2, and is at her base line oxygen need here. She is visibly short of breath and cannot catch her breath going from the bed to the bathroom. Does mention that she is noncompliant with inhalers because she believes they cause her blood sugar to be elevated, and also insurance does not cover them for her. again, multifactorial with chronic systolic heart failure, atrial fibrillation, pulmonary HTN, some evidence of restrictive and obstructive lung disease symptoms improving slowly, more improvement since starting Prednisone now with more productive cough CXR without infiltrate will start Doxycycline to cover atypical bacterial infection (cannot use Levaquin due to QT prolongation possibility) no evidence that this is acute heart failure, her weight is stable and euvolemic she was wheezing more on admission, opened up with nebulizers will continue with nebulizers and Prednisone (2) Prediabetes: A1C 6.0 in August. -continue metformin. -T2DM diet. Novolog SS, pay close attention with starting Prednisone monitor for hypoglycemia (3) CHF (congestive heart failure): chronic systolic heart failure, EF is 15% continues to examines euvolemic maintain normal home dosing for Lasix at 40mg PO BID continue Entresto (4) Permanent atrial fibrillation: -rate controlled, continue Digoxin, metoprolol continue Xarelto for anticoagulation (5) Pulmonary hypertension: could be contributing to dyspnea already on oxygen at 2-3L continuous no evidence of desaturations (6) Pericardial effusion: h/o such, no current issues (7) Schizoaffective disorder: continue home meds: trazodone, quetiapine, hydroxizine (8) COPD (chronic obstructive pulmonary disease): PFT in September 2018 with some evidence of restrictive pattern but also mild obstructive pattern had a favorable response to bronchodilators patient ran out of Spiriva and Symbicort, reports that she has issues with insurance coverage for these medications follows with pulmonology as outpatient looked into formulary, she can afford Breo Ellipta, prescript sent no anti-cholinergics would be affordable (9) Oxygen dependent: on 2-3L at baseline, currently on the same level Subjective patient still feeling short of breath says that she is coughing more, cough more productive, white sputum no fever or chills she has not moved her bowels in a few days, feels bloated whenever she eats no nausea or vomiting normally moves her bowels every day with stool softeners checked CXR, no infiltrate seen, some edema and effusions Abd x-ray with no evidence of obstruction, showed well formed stool in colon reviewed labs, Cr and electrolytes stable, CBC stable Review of Systems Review of Systems: All systems reviewed & are unremarkable except as noted in HPI & below Constitutional: no fever, no fatigue and no weakness Respiratory: + cough, + dyspnea, + dyspnea on exertion and + sputum production; no hemoptysis Cardiovascular: no chest pain, no syncope, no edema and no claudication Gastrointestinal: + bloating, + early satiety and + constipation; no abdominal pain, no nausea, no vomiting and no diarrhea/loose stools Physical Exam Constitutional: WD/WN, vitals as above + overweight Eyes: PERRL, conjunctivae normal, anicteric sclerae ENMT: external ear and nose normal, oropharynx normal Neck: trachea midline, no thyromegaly Respiratory: normal respiratory effort, lungs clear to auscultation Cardiovascular: Rate/Rhythm: regular rate and + irregularly irregular Heart Sounds: normal S1 and normal S2; no murmur Extremities: normal capillary refill; no edema Gastrointestinal (Abdomen): normal bowel sounds, soft, nontender, no hepatosplenomegaly Musculoskeletal: no cyanosis or clubbing, extremities motor strength 5/5 Skin: no rashes, warm and dry Neurologic: patellar DTR's 2+ bilat, sensation intact and PERRL, EOMI, accommodation nl, no face palsy, no dysarthria Psychiatric: A+Ox3, euthymic affect Lymphatic: no cervical or axillary lymphadenopathy Results & Data Vital Signs (Past 12 Hours) Vital Signs Temp Pulse Pulse Resp BP BP Pulse Ox 01/08/19 15:05 71 18 99 01/08/19 11:35 36.6 C 100 H 16 92/80 L 99 01/08/19 11:31 86 18 100 01/08/19 08:18 102 H 103/64 01/08/19 06:31 36.8 C 92 H 20 127/83 97 01/08/19 04:17 36.7 C 102 H 20 104/81 97 Laboratory Results Laboratory Results - last 24 hr 01/08/19 01/08/19 06:01 06:01 WBC 10.19 RBC 3.87 L Hgb 10.7 L Hct 33.5 L MCV 86.6 MCH 27.6 MCHC 31.9 L RDW Std Deviation 53.3 H RDW Coeff of Logan 16.9 H Plt Count 253 MPV 9.3 Immature Gran % (Auto) 0.2 Neut % (Auto) 63.9 Lymph % (Auto) 28.6 Todd % (Auto) 5.6 Eos % (Auto) 1.4 Baso % (Auto) 0.3 Immature Gran # (Auto) 0.02 Neut # (Auto) 6.52 H Lymph # (Auto) 2.91 Todd # (Auto) 0.57 Eos # (Auto) 0.14 Baso # (Auto) 0.03 Sodium 142 Potassium 3.9 Chloride 103 Carbon Dioxide 31 Anion Gap 8.0 BUN 13 Creatinine 0.92 Est Cr Clr Drug Dosing 86.0 Est GFR ( Amer) 80.1 Est GFR (Non-Af Amer) 69.1 BUN/Creatinine Ratio 14.1 Glucose 91 Calcium 9.6 Diagnostic Findings XR chest 2V routine FINDINGS: Cardiac silhouette is enlarged, unchanged. Pulmonary vascular congestion with mild interstitial coarsening. Stable positioning of a left subclavian pacer/AICD. Blunting of the costophrenic angles no pneumothorax or lobar airspace consolidation. Subsegmental bibasilar opacities suggest atelectasis. De generative changes of the shoulders and spine. IMPRESSION: 1. Cardiomegaly with pulmonary vascular congestion and interstitial coarsening suggestive of pulmonary edema. 2. Trace pleural effusions. ABDOMEN 2 VIEWS FINDINGS: Small round calcifications in the pelvis likely represent phleboliths. No renal calculi. No dilated loops of bowel to suggest an obstruction. Small to moderate amount of well-formed stool seen scattered throughout the colon. The heart is enlarged. Pacemaker wires are noted. No pneumoperitoneum. No pneumatosis. IMPRESSION: 1. No evidence for bowel obstruction. 2. Small to moderate amount of well-formed stool within the colon. 3. Cardiomegaly. Medications Administered Current Inpatient Medications Acetaminophen (Tylenol) 650 mg PO Q4H PRN PRN Reason: Pain or Fever Stop: 02/01/19 23:06 Last Admin: 01/08/19 16:58 Dose: 650 mg Documented by: Al Hydrox/Mg Hydrox/Simethicone (Maalox) 15 ml PO Q4H PRN PRN Reason: Dyspepsia Stop: 02/01/19 23:06 Albuterol (Duoneb) 3 ml NEB QIDR [facility] Stop: 02/02/19 07:59 Last Admin: 01/08/19 19:22 Dose: 3 ml Documented by: Atorvastatin Calcium (Lipitor) 10 mg PO DAILY [facility] Stop: 02/02/19 08:59 Last Admin: 01/08/19 08:15 Dose: 10 mg Documented by: Benzonatate (Tessalon Perle) 100 mg PO TID PRN PRN Reason: Cough Stop: 02/02/19 01:07 Last Admin: 01/08/19 20:12 Dose: 100 mg Documented by: Digoxin (Lanoxin) 0.125 mg PO DAILY@1600 [facility] Stop: 02/02/19 15:59 Last Admin: 01/08/19 15:53 Dose: 0.125 mg Documented by: Diphenhydramine HCl (Benadryl Capsule) 25 mg PO QAM [facility] Stop: 02/02/19 08:59 Last Admin: 01/08/19 08:30 Dose: 25 mg Documented by: Docusate Sodium (Colace) 100 mg PO BID PRN PRN Reason: Constipation Stop: 02/01/19 23:06 Last Admin: 01/08/19 20:10 Dose: 100 mg Documented by: Doxycycline Hyclate (Vibramycin) 100 mg PO BID [facility] Stop: 01/15/19 15:59 Last Admin: 01/08/19 20:07 Dose: 100 mg Documented by: Furosemide (Lasix) 60 mg PO BID17 [facility] Stop: 02/07/19 16:59 Last Admin: 01/08/19 16:55 Dose: 60 mg Documented by: Gabapentin (Neurontin) 600 mg PO BID [facility] Stop: 02/01/19 23:06 Last Admin: 01/08/19 20:05 Dose: 600 mg Documented by: Guaifenesin (Robitussin Sugar Free Syrup) 100 mg PO Q6H PRN PRN Reason: Cough Stop: 02/02/19 18:14 Last Admin: 01/08/19 05:29 Dose: 100 mg Documented by: Hydroxyzine HCl (Vistaril) 50 mg PO HS [facility] Stop: 02/02/19 20:59 Last Admin: 01/08/19 20:08 Dose: 50 mg Documented by: Magnesium Hydroxide (Milk Of Magnesia) 30 ml PO Q12H PRN PRN Reason: Constipation Stop: 02/01/19 23:06 Menthol (Nice) 1 davy BUCCAL PRN PRN PRN Reason: Sore Throat Stop: 02/06/19 22:28 Metformin HCl (Glucophage) 500 mg PO BIDM [facility] Stop: 02/02/19 07:59 Last Admin: 01/08/19 16:58 Dose: 500 mg Documented by: Metoprolol Succinate (Toprol Xl) 200 mg PO QAM [facility] Stop: 02/02/19 08:59 Last Admin: 01/08/19 08:16 Dose: 200 mg Documented by: Ondansetron HCl (Zofran) 4 mg IV Q6H PRN PRN Reason: Nausea Stop: 02/01/19 23:06 Pantoprazole [facility]odium ([facility]ix) [facility] Stop: 02/02/19 08:59 Last Admin: 01/08/19 08:15 Dose: 40 mg Documented by: Polyethylene Glycol (Miralax Powder Packet) 17 gm PO DAILY PRN PRN Reason: Constipation Stop: 02/01/19 23:06 Last Admin: 01/03/19 15:18 Dose: 17 gm Documented by: Polyethylene Glycol (Miralax Powder Packet) 17 gm PO DAILY [facility] Stop: 02/07/19 15:59 Last Admin: 01/08/19 16:56 Dose: 17 gm Documented by: Potassium Chloride (Klor-Con M20) 20 meq PO BID [facility] Stop: 02/02/19 20:59 Last Admin: 01/08/19 20:06 Dose: 20 meq Documented by: Quetiapine Fumarate (Seroquel) 100 mg PO QAM [facility] Stop: 02/02/19 08:59 Last Admin: 01/08/19 08:16 Dose: 100 mg Documented by: Quetiapine Fumarate (Seroquel) 300 mg PO [facility] Stop: 02/01/19 23:29 Last Admin: 01/08/19 20:07 Dose: 300 mg Documented by: Rivaroxaban (Xarelto) 20 mg PO DAILY [facility] Stop: 02/02/19 08:59 Last Admin: 01/08/19 08:17 Dose: 20 mg Documented by: Sacubitril/Valsartan (Entresto 24/26mg) 1 tab PO DAILY [facility] Stop: 02/02/19 08:59 Last Admin: 01/08/19 08:15 Dose: 1 tab Documented by: Trazodone HCl (Desyrel) 200 mg PO [facility] Stop: 02/02/19 20:59 Last Admin: 01/08/19 20:06 Dose: 200 mg Documented by: PG Care Time/CCT Total # of Minutes Spent Total Time Spent with Patient: Total time spent is greater than 50% in coordination of care (as documented) at patient's floor/unit and/or counseling patient: (1) CHF (congestive heart failure) Heart failure chronicity: unspecified Heart failure type: unspecified Qualified Code(s): I50.9 - Heart failure, unspecified (2) Schizoaffective disorder Schizoaffective disorder type: other Qualified Code(s): F25.8 - Other schizoaffective disorders (3) COPD (chronic obstructive pulmonary disease) COPD type: unspecified COPD Qualified Code(s): J44.9 - Chronic obstructive pulmonary disease, unspecified
[2019-01-08] MEDS: DOXYCYCLINE HYCLATE 100 MG CAP PO SCH ×2 (15:51→20:07)
[2019-01-08] MEDS: DIGOXIN 0.125 MG TAB PO SCH (15:53)
--- NOTE | 2019-01-08 16:02 | Cardiology Progress Note ---
Date of Service January 08, 2019 Assessment & Plan (1) SOB (shortness of breath): Subjectively she has not improved much. Her lung examination is fairly benign. She is not appear to be markedly volume overloaded. (2) CHF (congestive heart failure): According to her nursing records she is slowly gaining volume. I think would be reasonable to try an increased dose of oral Lasix in order to maintain good volume status and help prevent any pulmonary edema. Will monitor her electrolytes and renal function closely. (3) Cardiac defibrillator in place: She did have 2 episodes of ventricular fibrillation over the past 2 months. No symptoms. No arrhythmias on the monitor. (4) A-fib: Permanent. She appears to have adequate rate control. She will continue on rivaroxaban indefinitely. (5) Pericardial effusion: Her echocardiogram revealed similar findings to her last echocardiogram. She continues to have a well-defined and posterior pericardial effusion. Do not believe this compromises her LV function. I do not believe this is changed significantly. (6) Severe mitral regurgitation: (7) Nonischemic cardiomyopathy: Patient underwent cardiac catheterization in 2006 without evidence of significant obstructive coronary disease. Current outpatient regimen includes beta-blockade and Entresto. LV function similar to old evaluation on her current echocardiogram. Subjective Patient continues to complain of breathing difficulty especially with activity. At rest she seems to be fairly comfortable. She also states that her nonproductive cough appears to be worsening. It is present when she has the fan blowing on her left shoulder or she drinks something cold. Review of Systems Review of Systems: Per HPI Physical Exam Physical Exam: She is alert and oriented x3. Mood affect appear normal. She answered all questions appropriately. HEENT: Sclerae are anicteric. Pupils are equal and reactive to light and accommodation. Extraocular movements were intact. Neuro: Cranial nerves intact Lungs: Lungs are clear to auscultation bilaterally. There are no rales wheezes or rhonchi. She has normal respiratory effort without use of accessory muscles. There is normal pulmonary excursion. Cardiac: The rhythm was irregular. S1 and S2 were normal. There are no murmurs on examination. The PMI was not markedly displaced on palpation. Extremities: Patient has bilateral radial pulses that are equal in intensity. There is no evidence cyanosis or clubbing. There was no evidence of significant peripheral edema bilaterally. Skin: There are no rashes noted on examination today. Results & Data Vital Signs (Past 12 Hours) Vital Signs Temp Pulse Pulse Pulse Resp BP BP 01/08/19 15:53 100 H 01/08/19 15:27 36.5 C 95 H 18 104/78 01/08/19 15:05 71 18 01/08/19 11:35 36.6 C 100 H 16 92/80 L 01/08/19 11:31 86 18 01/08/19 08:18 102 H 103/64 01/08/19 06:31 36.8 C 92 H 20 127/83 01/08/19 04:17 36.7 C 102 H 20 104/81 Pulse Ox 01/08/19 15:53 01/08/19 15:27 94 01/08/19 15:05 99 01/08/19 11:35 99 01/08/19 11:31 100 01/08/19 08:18 01/08/19 06:31 97 01/08/19 04:17 97 Laboratory Results Abnormal Lab Results 01/08/19 01/08/19 06:01 06:01 WBC 10.19 RBC 3.87 L Hgb 10.7 L Hct 33.5 L MCV 86.6 MCH 27.6 MCHC 31.9 L RDW Std Deviation 53.3 H RDW Coeff of Logan 16.9 H Plt Count 253 MPV 9.3 Immature Gran % (Auto) 0.2 Neut % (Auto) 63.9 Lymph % (Auto) 28.6 [place] % (Auto) 5.6 Eos % (Auto) 1.4 Baso % (Auto) 0.3 Immature Gran # (Auto) 0.02 Neut # (Auto) 6.52 H Lymph # (Auto) 2.91 [place] # (Auto) 0.57 Eos # (Auto) 0.14 Baso # (Auto) 0.03 Sodium 142 Potassium 3.9 Chloride 103 Carbon Dioxide 31 Anion Gap 8.0 BUN 13 Creatinine 0.92 Est Cr Clr Drug Dosing 86.0 Est GFR ( Amer) 80.1 Est GFR (Non-Af Amer) 69.1 BUN/Creatinine Ratio 14.1 Glucose 91 Calcium 9.6 PG Care Time/CCT Total # of Minutes Spent Total Time Spent with Patient: Total time spent is greater than 50% in coordination of care (as documented) at patient's floor/unit and/or counseling patient: (1) CHF (congestive heart failure) Heart failure chronicity: unspecified Heart failure type: unspecified Qualified Code(s): I50.9 - Heart failure, unspecified
--- NOTE | 2019-01-08 16:36 | XRay Report ---
XR chest 2V routine HISTORY: 58 years-old Female dyspnea, cough acute cough with shortness of breath COMPARISON: Chest radiograph 01/03/2019 TECHNIQUE: Portable AP view of the chest FINDINGS: Cardiac silhouette is enlarged, unchanged. Pulmonary vascular congestion with mild interstitial coars ening. Stable positioning of a left subclavian pacer/AICD. Blunting of the costophrenic angles no pne umothorax or lobar airspace consolidation. Subsegmental bibasilar opacities suggest atelectasis. Dege nerative changes of the shoulders and spine. IMPRESSION: 1. Cardiomegaly with pulmonary vascular congestion and interstitial coarsening suggestive of pulmonar y edema. 2. Trace pleural effusions. The above report was generated using voice recognition software. It may contain grammatical, syntax o r spelling errors. Electronically signed by: Bryan Ortega M.D. 01/08/2019 4:35 PM
--- NOTE | 2019-01-08 16:45 | XRay Report ---
ABDOMEN 2 VIEWS HISTORY: constipation COMPARISON: None. FINDINGS: Small round calcifications in the pelvis likely represent phleboliths. No renal calculi. No dilated loops of bowel to suggest an obstruction. Small to moderate amount of well-formed stool seen scattered throughout the colon. The heart is enlarged. Pacemaker wires are noted. No pneumoperitoneu m. No pneumatosis. IMPRESSION: 1. No evidence for bowel obstruction. 2. Small to moderate amount of well-formed stool within the colon. 3. Cardiomegaly. Electronically signed by: Tyler Davis M.D. 01/08/2019 4:43 PM
[2019-01-08] MEDS: POLYETHYLENE (MIRALAX) 17 GM PACK PO SCH (16:56)
[2019-01-08] MEDS: ACETAMINOPHEN 325 MG TAB PO PRN (16:58)
[2019-01-08] MEDS ORDERED: TRAMADOL HCL 50 MG TABLET PO STA (19:36)
[2019-01-08] MEDS: TRAZODONE HCL 100 MG TAB PO SCH (20:06)
[2019-01-08] MEDS: QUETIAPINE FUMARATE 300 MG TABLET PO SCH (20:07)
[2019-01-09] MEDS: ALBUT/IPRATROP 3MG/0.5MG NEB 3 ML VIAL NEB SCH ×2 (07:09→11:20)
[2019-01-09] MEDS: RIVAROXABAN 20 MG TAB PO SCH (08:22)
[2019-01-09] MEDS: SACUBITRIL-VALSARTAN 24-26 MG TAB PO SCH (08:22)
[2019-01-09] MEDS: DOXYCYCLINE HYCLATE 100 MG CAP PO SCH ×2 (08:22→20:35)
[2019-01-09] MEDS: PANTOprazole 40 MG TAB PO SCH (08:23)
[2019-01-09] MEDS: FUROSEMIDE 40 MG TAB PO SCH ×2 (08:23→16:43)
[2019-01-09] MEDS: METFORMIN HCL 500 MG TAB PO SCH ×2 (08:23→16:42)
[2019-01-09] MEDS: METOPROLOL SUCC 50MG EXT REL TAB PO SCH (08:23)
[2019-01-09] MEDS: QUETIAPINE FUMARATE 100 MG TABLET PO SCH (08:23)
[2019-01-09] MEDS: GABAPENTIN 600 MG TAB PO SCH ×2 (08:23→20:35)
[2019-01-09] MEDS: ATORVASTATIN 10 MG TAB PO SCH (08:23)
[2019-01-09] MEDS: POTASSIUM CHLORIDE 20 MEQ TABCR PO SCH ×2 (08:24→20:34)
[2019-01-09] MEDS: POLYETHYLENE (MIRALAX) 17 GM PACK PO SCH (08:24)
[2019-01-09] MEDS: DOCUSATE SODIUM 100 MG CAP PO PRN ×2 (08:27→20:38)
[2019-01-09] MEDS ORDERED: ALBUT/IPRATROP 3MG/0.5MG NEB 3 ML VIAL NEB PRN (11:47)
--- NOTE | 2019-01-09 13:50 | Hospitalist Progress Note ---
Date of Service January 09, 2019 Assessment & Plan (1) MONSALVE (dyspnea on exertion): Ms. Carson is a 58 year old female with PMH chronic systolic CHF (EF 15-20% Jul 2018) , a.fib, biV pacer placement, pulmonary HTN, COPD, chronic pericardial effusion, anxiety and schizoaffective disorder who presents to the emergency department earlier this morning and again this evening due to worsening shortness of breath. Denies cough, fevers or chills, chest pain or abdominal pain, no change in urinary or bowel habits. Increasing MONSALVE with her regular activities at home. Has been admitted to [facility] several times since May 2018, due to worsening shortness of breath. Is on 2-3L O2, and is at her base line oxygen need here. She is visibly short of breath and cannot catch her breath going from the bed to the bathroom. Does mention that she is noncompliant with inhalers because she believes they cause her blood sugar to be elevated, and also insurance does not cover them for her. again, multifactorial with chronic systolic heart failure, atrial fibrillation, pulmonary HTN, some evidence of restrictive and obstructive lung disease more improvement today compared to prior days, patient actually stating she feels better started Doxycycline yesterday will make Duoneb PRN per patient's request continue on Prednisone with taper on discharge no evidence that this is acute heart failure, her weight is stable and euvolemic she was wheezing more on admission, opened up with nebulizers (2) Prediabetes: A1C 6.0 in August. -continue metformin. -T2DM diet. Novolog SS, pay close attention with starting Prednisone monitor for hypoglycemia (3) CHF (congestive heart failure): chronic systolic heart failure, EF is 15% continues to examines euvolemic maintain normal home dosing for Lasix at 40mg PO BID continue Entresto heart failure clinic following patient while here (4) Permanent atrial fibrillation: -rate controlled, continue Digoxin, metoprolol continue Xarelto for anticoagulation (5) Pulmonary hypertension: could be contributing to dyspnea already on oxygen at 2-3L continuous no evidence of desaturations (6) Pericardial effusion: h/o such, no current issues (7) Schizoaffective disorder: continue home meds: trazodone, quetiapine, hydroxizine (8) COPD (chronic obstructive pulmonary disease): PFT in September 2018 with some evidence of restrictive pattern but also mild obstructive pattern had a favorable response to bronchodilators patient ran out of Spiriva and Symbicort, reports that she has issues with insurance coverage for these medications follows with pulmonology as outpatient looked into formulary, she can afford Breo Ellipta, prescript sent no anti-cholinergics would be affordable (9) Oxygen dependent: on 2-3L at baseline, currently on the same level (10) Constipation: small BM today, expects more continue Miralax KUB on 01/08 showed stool in colon, no obstruction Subjective patient reports that she is feeling better today, first time she has reported this she is less dyspneic walking to the bathroom she has less coughing, less sputum production updated her on results of CXR and KUB yesterday she said that she had a small BM today, feels like she could have another BM today no labs today Review of Systems Review of Systems: All systems reviewed & are unremarkable except as noted in HPI & below Constitutional: no fever Respiratory: + cough, + dyspnea on exertion and + sputum production; no dyspnea and no hemoptysis Cardiovascular: no chest pain and no edema Gastrointestinal: no abdominal pain, no nausea, no vomiting, no constipation and no diarrhea/loose stools Physical Exam Constitutional: WD/WN, vitals as above + overweight Eyes: PERRL, conjunctivae normal, anicteric sclerae ENMT: external ear and nose normal, oropharynx normal Neck: trachea midline, no thyromegaly Respiratory: normal respiratory effort, lungs clear to auscultation Cardiovascular: Rate/Rhythm: regular rate and + irregularly irregular Heart Sounds: normal S1 and normal S2; no murmur Extremities: normal capillary refill; no edema Gastrointestinal (Abdomen): normal bowel sounds, soft, nontender, no hepatosplenomegaly Musculoskeletal: no cyanosis or clubbing, extremities motor strength 5/5 Skin: no rashes, warm and dry Neurologic: patellar DTR's 2+ bilat, sensation intact and PERRL, EOMI, accommodation nl, no face palsy, no dysarthria Psychiatric: A+Ox3, euthymic affect Lymphatic: no cervical or axillary lymphadenopathy Results & Data Vital Signs (Past 12 Hours) Vital Signs Temp Pulse Resp BP BP Pulse Ox 01/09/19 11:26 89 16 98 01/09/19 11:24 36.3 C L 88 20 98/72 L 99 01/09/19 07:33 36.5 C 87 18 103/76 92 01/09/19 04:02 36.4 C L 81 20 115/81 93 Medications Administered Current Inpatient Medications Acetaminophen (Tylenol) 650 mg PO Q4H PRN PRN Reason: Pain or Fever Stop: 02/01/19 23:06 Last Admin: 01/08/19 16:58 Dose: 650 mg Documented by: Al Hydrox/Mg Hydrox/Simethicone (Maalox) 15 ml PO Q4H PRN PRN Reason: Dyspepsia Stop: 02/01/19 23:06 Albuterol (Duoneb) 3 ml NEB QIDR PRN PRN Reason: Shortness Of Breath Or Wheezing Stop: 02/02/19 07:59 Atorvastatin Calcium (Lipitor) 10 mg PO DAILY [facility] Stop: 02/02/19 08:59 Last Admin: 01/09/19 08:23 Dose: 10 mg Documented by: Benzonatate (Tessalon Perle) 100 mg PO TID PRN PRN Reason: Cough Stop: 02/02/19 01:07 Last Admin: 01/08/19 20:12 Dose: 100 mg Documented by: Digoxin (Lanoxin) 0.125 mg PO DAILY@1600 [facility] Stop: 02/02/19 15:59 Last Admin: 01/08/19 15:53 Dose: 0.125 mg Documented by: Diphenhydramine HCl (Benadryl Capsule) 25 mg PO QAM [facility] Stop: 02/02/19 08:59 Last Admin: 01/09/19 08:22 Dose: 25 mg Documented by: Docusate Sodium (Colace) 100 mg PO BID PRN PRN Reason: Constipation Stop: 02/01/19 23:06 Last Admin: 01/09/19 08:27 Dose: 100 mg Documented by: Doxycycline Hyclate (Vibramycin) 100 mg PO BID [facility] Stop: 01/15/19 15:59 Last Admin: 01/09/19 08:22 Dose: 100 mg Documented by: Furosemide (Lasix) 60 mg PO BID17 [facility] Stop: 02/07/19 16:59 Last Admin: 01/09/19 08:23 Dose: 60 mg Documented by: Gabapentin (Neurontin) 600 mg PO BID [facility] Stop: 02/01/19 23:06 Last Admin: 01/09/19 08:23 Dose: 600 mg Documented by: Guaifenesin (Robitussin Sugar Free Syrup) 100 mg PO Q6H PRN PRN Reason: Cough Stop: 02/02/19 18:14 Last Admin: 01/08/19 05:29 Dose: 100 mg Documented by: Hydroxyzine HCl (Vistaril) 50 mg PO HS [facility] Stop: 02/02/19 20:59 Last Admin: 01/08/19 20:08 Dose: 50 mg Documented by: Magnesium Hydroxide (Milk Of Magnesia) 30 ml PO Q12H PRN PRN Reason: Constipation Stop: 02/01/19 23:06 Menthol (Nice) 1 davy BUCCAL PRN PRN PRN Reason: Sore Throat Stop: 02/06/19 22:28 Metformin HCl (Glucophage) 500 mg PO BIDM [facility] Stop: 02/02/19 07:59 Last Admin: 01/09/19 08:23 Dose: 500 mg Documented by: Metoprolol Succinate ([facility]l) [facility] [place]: 02/02/19 08:59 Last Admin: 01/09/19 08:23 Dose: 200 mg Documented by: Ondansetron HCl (Zofran) 4 mg IV Q6H PRN PRN Reason: Nausea Stop: 02/01/19 23:06 Pantoprazole Sodium (Protonix) [facility] [place]: 02/02/19 08:59 Last Admin: 01/09/19 08:23 Dose: 40 mg Documented by: Polyethylene Glycol (Miralax Powder Packet) 17 gm PO DAILY PRN PRN Reason: Constipation Stop: 02/01/19 23:06 Last Admin: 01/03/19 15:18 Dose: 17 gm Documented by: Polyethylene Glycol (Miralax Powder Packet) 17 gm PO DAILY [facility] Stop: 02/07/19 15:59 Last Admin: 01/09/19 08:24 Dose: 17 gm Documented by: Potassium Chloride (Klor-Con M20) 20 meq PO BID [facility] Stop: 02/02/19 20:59 Last Admin: 01/09/19 08:24 Dose: 20 meq Documented by: Quetiapine Fumarate (Seroquel) [facility] [place]: 02/02/19 08:59 Last Admin: 01/09/19 08:23 Dose: 100 mg Documented by: Quetiapine Fumarate (Seroquel) 300 mg PO HS [facility] Stop: 02/01/19 23:29 Last Admin: 01/08/19 20:07 Dose: 300 mg Documented by: Rivaroxaban (Xarelto) 20 mg PO DAILY [facility] Stop: 02/02/19 08:59 Last Admin: 01/09/19 08:22 Dose: 20 mg Documented by: Sacubitril/Valsartan (Entresto 24/26mg) 1 tab PO DAILY [facility] Stop: 02/02/19 08:59 Last Admin: 01/09/19 08:22 Dose: 1 tab Documented by: Trazodone HCl (Desyrel) 200 mg PO HS [facility] Stop: 02/02/19 20:59 Last Admin: 01/08/19 20:06 Dose: 200 mg Documented by: PG Care Time/CCT Total # of Minutes Spent Total Time Spent with Patient: Total time spent is greater than 50% in coordination of care (as documented) at patient's floor/unit and/or counseling patient: (1) CHF (congestive heart failure) Heart failure chronicity: unspecified Heart failure type: unspecified Qualified Code(s): I50.9 - Heart failure, unspecified (2) Schizoaffective disorder Schizoaffective disorder type: other Qualified Code(s): F25.8 - Other michelle izoaffective disorders (3) COPD (chronic obstructive pulmonary disease) COPD type: unspecified COPD Qualified Code(s): J44.9 - Chronic obstructive pulmonary disease, unspecified
[2019-01-09] MEDS: DIGOXIN 0.125 MG TAB PO SCH (16:42)
[2019-01-09] MEDS: TRAZODONE HCL 100 MG TAB PO SCH (20:34)
[2019-01-09] MEDS: QUETIAPINE FUMARATE 300 MG TABLET PO SCH (20:36)
[2019-01-09] MEDS: guaiFENesin SUGAR FREE 100 MG/5 ML UDC PO PRN (20:37)
[2019-01-10] MEDS: METFORMIN HCL 500 MG TAB PO SCH ×2 (07:56→16:46)
[2019-01-10] MEDS: PANTOprazole 40 MG TAB PO SCH (07:57)
[2019-01-10] MEDS: DOXYCYCLINE HYCLATE 100 MG CAP PO SCH ×2 (07:58→20:49)
[2019-01-10] MEDS: POTASSIUM CHLORIDE 20 MEQ TABCR PO SCH ×2 (07:58→20:49)
[2019-01-10] MEDS: SACUBITRIL-VALSARTAN 24-26 MG TAB PO SCH (07:58)
[2019-01-10] MEDS: QUETIAPINE FUMARATE 100 MG TABLET PO SCH (07:58)
[2019-01-10] MEDS: ATORVASTATIN 10 MG TAB PO SCH (07:59)
[2019-01-10] MEDS: POLYETHYLENE (MIRALAX) 17 GM PACK PO SCH (07:59)
[2019-01-10] MEDS: RIVAROXABAN 20 MG TAB PO SCH (07:59)
[2019-01-10] MEDS: GABAPENTIN 600 MG TAB PO SCH ×2 (07:59→20:50)
[2019-01-10] MEDS: FUROSEMIDE 40 MG TAB PO SCH ×2 (08:03→16:13)
[2019-01-10] MEDS: DOCUSATE SODIUM 100 MG CAP PO PRN (08:04)
[2019-01-10] MEDS: METOPROLOL SUCC 50MG EXT REL TAB PO SCH (08:04)
[2019-01-10] MEDS: ACETAMINOPHEN 325 MG TAB PO PRN (10:05)
--- NOTE | 2019-01-10 13:12 | Cardiology Progress Note ---
Date of Service January 10, 2019 Assessment & Plan (1) SOB (shortness of breath): Subjectively better. ON steroids. WIll ambulate later today. Lung exam is pretty benign. (2) CHF (congestive heart failure): Hard to know if she had a good diuresis yesterday. However, she did diurese well the day before. I think she can return to her outpatient dose of lasix on discharge. We will get her f/u in the heart failure clinic after discharge. (3) Cardiac defibrillator in place: She did have 2 episodes of ventricular fibrillation over the past 2 months. No symptoms. No arrhythmias on the monitor. (4) A-fib: Permanent. She appears to have adequate rate control. She will continue on rivaroxaban indefinitely. (5) Pericardial effusion: Her echocardiogram revealed similar findings to her last echocardiogram. She continues to have a well-defined and posterior pericardial effusion. Do not believe this compromises her LV function. I do not believe this is changed significantly. (6) Severe mitral regurgitation: (7) Nonischemic cardiomyopathy: Patient underwent cardiac catheterization in 2006 without evidence of significant obstructive coronary disease. Current outpatient regimen includes beta-blockade and Entresto. LV function similar to old evaluation on her cur rent echocardiogram. Subjective She continues to have some element of dyspnea but somewhat better. She plans on ambulating more today. Her cough is better. Review of Systems Review of Systems: per HPI Physical Exam Physical Exam: She is alert and oriented x3. Mood affect appear normal. She answered all questions appropriately. HEENT: Sclerae are anicteric. Pupils are equal and reactive to light and accommodation. Extraocular movements were intact. Neuro: Cranial nerves intact Lungs: Lungs are clear to auscultation bilaterally. There are no rales wheezes or rhonchi. She has normal respiratory effort without use of accessory muscles. There is normal pulmonary excursion. Cardiac: The rhythm was irregular. S1 and S2 were normal. There are no murm urs on examination. The PMI was not markedly displaced on palpation. Abdomen: The abdomen was soft and nontender. Extremities: Patient has bilateral radial pulses that are equal in intensity. There is no evidence cyanosis or clubbing. There was no evidence of significant peripheral edema bilaterally. Skin: There are no rashes noted on examination today. Results & Data Vital Signs (Past 12 Hours) Vital Signs Temp Pulse Pulse Resp BP BP Pulse Ox 01/10/19 12:23 36.5 C 76 18 91/68 L 99 01/10/19 08:06 102 H 103/71 01/10/19 07:09 66 01/10/19 06:57 36.6 C 84 20 85/56 L 93 01/10/19 03:51 36.6 C 83 20 109/79 97 ECG Additional Comments: Atrial fibrillation PG Care Time/CCT Total # of Minutes Spent Total Time Spent with Patient: Total time spent is greater than 50% in coordination of care (as documented) at patient's floor/unit and/or counseling patient: (1) CHF (congestive heart failure) Heart failure chronicity: unspecified Heart failure type: unspecified Qualified Code(s): I50.9 - Heart failure, unspecified
--- NOTE | 2019-01-10 14:14 | Hospitalist Progress Note ---
Date of Service January 10, 2019 Assessment & Plan (1) MONSALVE (dyspnea on exertion): Ms. Carson is a 58 year old female with PMH chronic systolic CHF (EF 15-20% Jul 2018) , a.fib, biV pacer placement, pulmonary HTN, COPD, chronic pericardial effusion, anxiety and schizoaffective disorder who presents to the emergency department earlier this morning and again this evening due to worsening shortness of breath. Denies cough, fevers or chills, chest pain or abdominal pain, no change in urinary or bowel habits. Increasing MONSALVE with her regular activities at home. Has been admitted to [facility] several times since May 2018, due to worsening shortness of breath. Is on 2-3L O2, and is at her base line oxygen need here. She is visibly short of breath and cannot catch her breath going from the bed to the bathroom. Does mention that she is noncompliant with inhalers because she believes they cause her blood sugar to be elevated, and also insurance does not cover them for her. again, multifactorial with chronic systolic heart failure, atrial fibrillation, pulmonary HTN, some evidence of restrictive and obstructive lung disease continues to improve daily, walking further without dyspnea today started Doxycycline on 01/09, will complete a 7 day course, last day would be 01/16 will make Duoneb PRN per patient's request continue on Prednisone with taper on discharge no evidence that this is acute heart failure, her weight is stable and euvolemic she was wheezing more on admission, opened up with nebulizers (2) Prediabetes: A1C 6.0 in August. -continue metformin. -T2DM diet. Novolog SS, pay close attention with starting Prednisone monitor for hypoglycemia (3) CHF (congestive heart failure): chronic systolic heart failure, EF is 15% continues to examines euvolemic maintain normal home dosing for Lasix at 40mg PO BID continue Entresto heart failure clinic following patient while here (4) Permanent atrial fibrillation: -rate controlled, continue Digoxin, metoprolol continue Xarelto for anticoagulation (5) Pulmonary hypertension: could be contributing to dyspnea already on oxygen at 2-3L continuous no evidence of desaturations (6) Pericardial effusion: h/o such, no current issues (7) Schizoaffective disorder: continue home meds: trazodone, quetiapine, hydroxizine (8) COPD (chronic obstructive pulmonary disease): PFT in September 2018 with some evidence of restrictive pattern but also mild obstructive pattern had a favorable response to bronchodilators patient ran out of Spiriva and Symbicort, reports that she has issues with insurance coverage for these medications follows with pulmonology as outpatient looked into formulary, she can afford Breo Ellipta, prescript sent no anti-cholinergics would be affordable on discharge will be on Breo Ellipta, will add Combivent so that she can get anticholinergic Prednisone taper Doxycycline until 01/16 try to get close follow up with Pulmonary (9) Oxygen dependent: on 2-3L at baseline, currently on the same level (10) Constipation: large BM today continue Miralax KUB on 01/08 showed stool in colon, no obstruction Subjective patient continues to feel better each day, ambulated more yesterday planning on ambulating further today discussed discharge today vs tomorrow, she feels more comfortable going tomorrow eating well weight stable, making adequate amounts of urine no labs today discussed with CM, plan for d/c tomorrow she did move bowels even more today continue Miralax and resume outpatient stool softener on discharge Review of Systems Review of Systems: All systems reviewed & are unremarkable except as noted in HPI & below Physical Exam Constitutional: WD/WN, vitals as above + overweight Eyes: PERRL, conjunctivae normal, anicteric sclerae ENMT: external ear and nose normal, oropharynx normal Neck: trachea midline, no thyromegaly Respiratory: normal respiratory effort, lungs clear to auscultation Cardiovascular: Rate/Rhythm: regular rate and + irregularly irregular Heart Sounds: normal S1 and normal S2; no murmur Extremities: normal capillary refill; no edema Gastrointestinal (Abdomen): normal bowel sounds, soft, nontender, no hepatosplenomegaly Musculoskeletal: no cyanosis or clubbing, extremities motor strength 5/5 Skin: no rashes, warm and dry Neurologic: patellar DTR's 2+ bilat, sensation intact and PERRL, EOMI, accommodation nl, no face palsy, no dysarthria Psychiatric: A+Ox3, euthymic affect Lymphatic: no cervical or axillary lymphadenopathy Results & Data Vital Signs (Past 12 Hours) Vital Signs Temp Pulse Pulse Resp BP BP Pulse Ox 01/10/19 12:23 36.5 C 76 18 91/68 L 99 01/10/19 08:06 102 H 103/71 01/10/19 07:09 66 01/10/19 06:57 36.6 C 84 20 85/56 L 93 01/10/19 03:51 36.6 C 83 20 109/79 97 Medications Administered Current Inpatient Medications Acetaminophen (Tylenol) 650 mg PO Q4H PRN PRN Reason: Pain or Fever Stop: 02/01/19 23:06 Last Admin: 01/10/19 10:05 Dose: 650 mg Documented by: Al Hydrox/Mg Hydrox/Simethicone (Maalox) 15 ml PO Q4H PRN PRN Reason: Dyspepsia Stop: 02/01/19 23:06 Albuterol (Duoneb) 3 ml NEB QIDR PRN PRN Reason: Shortness Of Breath Or Wheezing Stop: 02/02/19 07:59 Atorvastatin Calcium (Lipitor) 10 mg PO DAILY [facility] Stop: 02/02/19 08:59 Last Admin: 01/10/19 07:59 Dose: 10 mg Documented by: Benzonatate (Tessalon Perle) 100 mg PO TID PRN PRN Reason: Cough Stop: 02/02/19 01:07 Last Admin: 01/08/19 20:12 Dose: 100 mg Documented by: Digoxin (Lanoxin) 0.125 mg PO DAILY@1600 [facility] Stop: 02/02/19 15:59 Last Admin: 01/09/19 16:42 Dose: 0.125 mg Documented by: Diphenhydramine HCl (Benadryl Capsule) 25 mg PO QAM [facility] Stop: 02/02/19 08:59 Last Admin: 01/10/19 08:01 Dose: 25 mg Documented by: Docusate Sodium (Colace) 100 mg PO BID PRN PRN Reason: Constipation Stop: 02/01/19 23:06 Last Admin: 01/10/19 08:04 Dose: 100 mg Documented by: Doxycycline Hyclate (Vibramycin) 100 mg PO BID [facility] Stop: 01/15/19 15:59 Last Admin: 01/10/19 07:58 Dose: 100 mg Documented by: Furosemide (Lasix) 60 mg PO BID17 [facility] Stop: 02/07/19 16:59 Last Admin: 01/10/19 08:03 Dose: 60 mg Documented by: Gabapentin (Neurontin) 600 mg PO BID [facility] Stop: 02/01/19 23:06 Last Admin: 01/10/19 07:59 Dose: 600 mg Documented by: Guaifenesin (Robitussin Sugar Free Syrup) 100 mg PO Q6H PRN PRN Reason: Cough Stop: 02/02/19 18:14 Last Admin: 01/09/19 20:37 Dose: 100 mg Documented by: Hydroxyzine HCl (Vistaril) 50 mg PO HS [facility] Stop: 02/02/19 20:59 Last Admin: 01/09/19 20:34 Dose: 50 mg Documented by: Magnesium Hydroxide (Milk Of Magnesia) 30 ml PO Q12H PRN PRN Reason: Constipation Stop: 02/01/19 23:06 Menthol (Nice) 1 davy BUCCAL PRN PRN PRN Reason: Sore Throat Stop: 02/06/19 22:28 Metformin HCl (Glucophage) 500 mg PO BIDM [facility] Stop: 02/02/19 07:59 Last Admin: 01/10/19 07:56 Dose: 500 mg Documented by: Metoprolol Succinate (Toprol Xl) 200 mg PO QAM [facility] Stop: 02/02/19 08:59 Last Admin: 01/10/19 08:04 Dose: 200 mg Documented by: Ondansetron HCl (Zofran) 4 mg IV Q6H PRN PRN Reason: Nausea Stop: 02/01/19 23:06 Pantoprazole Sodium (Protonix) [facility] [place] [place] Stop: 02/02/19 08:59 Last Admin: 01/10/19 07:57 Dose: 40 mg Documented by: Polyethylene Glycol (Miralax Powder Packet) 17 gm PO DAILY PRN PRN Reason: Constipation Stop: 02/01/19 23:06 Last Admin: 01/03/19 15:18 Dose: 17 gm Documented by: Polyethylene Glycol (Miralax Powder Packet) 17 gm PO DAILY [facility] Stop: 02/07/19 15:59 Last Admin: 01/10/19 07:59 Dose: 17 gm Documented by: Potassium Chloride (Klor-Con M20) 20 meq PO BID [facility] Stop: 02/02/19 20:59 Last Admin: 01/10/19 07:58 Dose: 20 meq Documented by: Quetiapine Fumarate (Seroquel) 100 mg PO QAM [facility] Stop: 02/02/19 08:59 Last Admin: 01/10/19 07:58 Dose: 100 mg Documented by: Quetiapine Fumarate (Seroquel) 300 mg PO HS [facility] Stop: 02/01/19 23:29 Last Admin: 01/09/19 20:36 Dose: 300 mg Documented by: Rivaroxaban (Xarelto) 20 mg PO DAILY [facility] Stop: 02/02/19 08:59 Last Admin: 01/10/19 07:59 Dose: 20 mg Documented by: Sacubitril/Valsartan (Entresto 24/26mg) 1 tab PO DAILY [facility] Stop: 02/02/19 08:59 Last Admin: 01/10/19 07:58 Dose: 1 tab Documented by: Trazodone HCl (Desyrel) 200 mg PO HS [facility] Stop: 02/02/19 20:59 Last Admin: 01/09/19 20:34 Dose: 200 mg Documented by: PG Care Time/CCT Total # of Minutes Spent Total Time Spent with Patient: Total time spent is greater than 50% in coordination of care (as documented) at patient's floor/unit and/or counseling patient: (1) CHF (congestive heart failure) Heart failure chronicity: unspecified Heart failure type: unspecified Qualified Code(s): I50.9 - Heart failure, unspecified (2) Schizoaffective disorder Schizoaffective disorder type: other Qualified Code(s): F25.8 - Other schizoaffective disorders (3) COPD (chronic obstructive pulmonary disease) COPD type: unspecified COPD Qualified Code(s): J44.9 - Chronic obstructive pulmonary disease, unspecified
[2019-01-10] MEDS: DIGOXIN 0.125 MG TAB PO SCH (16:13)
[2019-01-10] MEDS: QUETIAPINE FUMARATE 300 MG TABLET PO SCH (20:50)
[2019-01-10] MEDS: TRAZODONE HCL 100 MG TAB PO SCH (20:51)
[2019-01-10] MEDS: BENZONATATE 100 MG CAPSULE PO PRN (21:41)
[2019-01-11 06:19] LABS: BUN Creatinine Ratio 19.7 (10-20); Calcium 9.7 mg/dl (8.5-10.1); Creatinine Clr Calc Pharmacy 80.9 ml/min; Est GFR (African American) 75.1; Est GFR (Non-African American) 64.8; Potassium 4.2 mmol/L (3.5-5.1)
[2019-01-11] MEDS: ATORVASTATIN 10 MG TAB PO SCH (08:04)
[2019-01-11] MEDS: METFORMIN HCL 500 MG TAB PO SCH (08:04)
[2019-01-11] MEDS: QUETIAPINE FUMARATE 100 MG TABLET PO SCH (08:05)
[2019-01-11] MEDS: METOPROLOL SUCC 50MG EXT REL TAB PO SCH (08:05)
[2019-01-11] MEDS: PANTOprazole 40 MG TAB PO SCH (08:05)
[2019-01-11] MEDS: RIVAROXABAN 20 MG TAB PO SCH (08:06)
[2019-01-11] MEDS: GABAPENTIN 600 MG TAB PO SCH (08:06)
[2019-01-11] MEDS: SACUBITRIL-VALSARTAN 24-26 MG TAB PO SCH (08:06)
[2019-01-11] MEDS: DOXYCYCLINE HYCLATE 100 MG CAP PO SCH (08:06)
[2019-01-11] MEDS: POTASSIUM CHLORIDE 20 MEQ TABCR PO SCH (08:06)
[2019-01-11] MEDS: FUROSEMIDE 40 MG TAB PO SCH (08:07)
[2019-01-11] MEDS: POLYETHYLENE (MIRALAX) 17 GM PACK PO SCH (08:09)
[2019-01-11] MEDS: BENZONATATE 100 MG CAPSULE PO PRN (08:26)
--- NOTE | 2019-01-11 12:25 | Discharge Summary ---
Date of Service January 11, 2019 Admission HPI Per Admitting Provider Ms. Carson is a 58 year old female with PMH chronic systolic CHF (EF 15-20% Jul 2018) , a.fib, biV pacer placement, pulmonary HTN, COPD, chronic pericardial effusion, anxiety and schizoaffective disorder who presents to the emergency department earlier this morning and again this evening due to worsening shortness of breath. Denies cough, fevers or chills, chest pain or abdominal pain, no change in urinary or bowel habits. Increasing MONSALVE with her regular activities at home. Has been admitted to [facility] several times since May 2018, due to worsening shortness of breath. Is on 2-3L O2, and is at her baseline oxygen need here. She is visibly short of breath and cannot catch her breath going from the bed to the bathroom. Principal Diagnosis COPD exacerbation Discharge Exam Constitutional WD/WN, vitals as above + overweight Eyes PERRL, conjunctivae normal, anicteric sclerae ENMT external ear and nose normal, oropharynx normal Neck trachea midline, no thyromegaly Respiratory normal respiratory effort, lungs clear to auscultation Cardiovascular Rate/Rhythm: regular rate and + irregularly irregular Heart Sounds: normal S1 and normal S2; no murmur Extremities: normal capillary refill; no edema Gastrointestinal (Abdomen) normal bowel sounds, soft, nontender, no hepatosplenomegaly Musculoskeletal no cyanosis or clubbing, extremities motor strength 5/5 Skin no rashes, warm and dry Neurologic patellar DTR's 2+ bilat, sensation intact and PERRL, EOMI, accommodation nl, no face palsy, no dysarthria Psychiatric A+Ox3, euthymic affect Lymphatic no cervical or axillary lymphadenopathy Discharge Data Allergies Allergy/AdvReac Type Severity Reaction Status Date / Time fentanyl Allergy Mild RASH,ITCHIN Verified 01/02/19 20:37 G Consultations 01/02/19 20:58 ED Decision to Admit Stat 01/02/19 23:07 Consult Case Management - Discharge Planning Routine 01/03/19 09:35 Consult Cardiology Routine Hospital Course (1) COPD (chronic obstructive pulmonary disease): presents with mild exacerbation, suspect it is due to not taking Symbicort and Spiriva, cannot afford, ran out of samples PFT in September 2018 with some evidence of restrictive pattern but also mild obstructive pattern had a favorable response to bronchodilators looked into formulary, she can afford Breo Ellipta, prescript sent will prescribe Combivent Respimat as this appears to be on formulary as well, would at least offer some anticholinergic effects on discharge will be on Breo Ellipta, combivent q6 PRN Prednisone 20mg x 3 more days and stop (less than 7 days given) Doxycycline until 01/16 try to get close follow up with Pulmonary (2) MONSALVE (dyspnea on exertion): multifactorial with chronic systolic heart failure, atrial fibrillation, pulmonary HTN, some evidence of restrictive and obstructive lung disease continues to improve daily, walking further without dyspnea today started Doxycycline on 01/09, will complete a 7 day course, last day would be 01/16 will make Duoneb PRN per patient's request continue on Prednisone with taper on discharge no evidence that this is acute heart failure, her weight is stable and euvolemic she was wheezing more on admission, opened up with nebulizers (3) Prediabetes: A1C 6.0 in August. -continue metformin. -T2DM diet. Novolog SS, pay close attention with starting Prednisone monitor for hypoglycemia (4) CHF (congestive heart failure): chronic systolic heart failure, EF is 15% continues to examines euvolemic maintain normal home dosing for Lasix at 40mg PO BID continue [facility] heart failure clinic following patient while here (5) Permanent atrial fibrillation: -rate controlled, continue Digoxin, metoprolol continue Xarelto for anticoagulation (6) Pulmonary hypertension: could be contributing to dyspnea already on oxygen at 2-3L continuous no evidence of desaturations (7) Pericardial effusion: h/o such, no current issues most recent imaging shows that it is posterior, stable, not affecting filling of heart (8) Schizoaffective disorder: continue home meds: trazodone, quetiapine, hydroxizine (9) Oxygen dependent: on 2-3L at baseline, currently on the same level (10) Constipation: large BM yesterday continue Miralax PRN at home KUB on 01/08 showed stool in colon, no obstruction Total Time Total Time Spent Total Time Spent (In Minutes): 35 minutes Total Time Includes: Examination of the Patient, Discharge Planning and Medication Reconciliation Discharge Plan Discharge Items Patient Disposition: Home - Home Health Services Reason For Visit: SOB Discharge Diagnosis: Dyspnea on exertion Chronic systolic heart failure Chronic hypoxia COPD exacerbation Condition: Good Discharge Goals: Improve disease control and Improve function Activity: Resume your previous activity Non-emergency contact: Primary Care Provider, Project Engineering Director and Garage Supervisor Call non-emergency contact if: you have any medication questions, your symptoms worsen and you have a fever Follow-up/Referrals: Antonio Oliver MD [Primary Care Provider] - 01/15/19 10:00 am (Please, follow up at Dr. Roper's office with her medical assistant per diem, Beena Segura PA-C, on TuesdayJanuary 15 at 10:00 am. *If you need to change this appointment, call their office at [phone].) Mara Garcia CRNP [Nurse Practitioner] - 01/31/19 8:15 am (Please, follow up at [facility] Pulmonology Office with Mara BATISTA on TuesdayJanuary 31 at 8:15 am. *The office is located in [address] of [facility]. This is the big building located next to this [facility]. If you need to change this appointment, call the office at [phone].) Diet: Heart Healthy Fluids: 1800ml (7 cups) Addtl Provider Instructions: Medications: - DOXYCYCLINE: 100mg twice a day for 10 more doses, next dose due this evening - PREDNISONE: 20mg daily for three more days then stop - COMBIVENT: use as needed every 6 hours for dyspnea, try using this instead of just albuterol as it is similar to the Duoneb that you get in the hospital - BREO ELLIPTA: this is a maintenance inhaler, use EVERY DAY to help maintain lung function, it is NOT a rescue inhaler Dyspnea (shortness of breath) on exertion you have multiple reasons for shortness of breath you have chronic heart failure, obstructive lung disease, restrictive lung disease, pulmonary hypertension you will always have a degree of shortness of breath, especially with the restrictive lung disease, difficult to take a deep breath your heart failure is well controlled, you are not volume overloaded, continue on Lasix and Entresto continue to follow with heart failure clinic COPD exacerbation, mild you will finish three days of Prednisone, complete 5 days of Doxycycline start on Breo Ellipta since this is a maintenance inhaler that you can afford, use EVERY DAY will try Combivent Respimat, use every 6 hours as needed for shortness of breath Chronic Hypoxia: continue to use 2-3 liters at all times FOLLOW UP - Dr. Gayle on 01/15 - Pulmonology, my nurse navigator working on getting you appt Prescriptions: New doxycycline hyclate 100 mg Capsule 100 mg PO BID 5 Days Qty: 10 RF: 0 Breo Ellipta 100-25 mcg/dose blister with device 1 puffs INH DAILY Qty: 28 RF: 3 Combivent Respimat 20-100 mcg/actuation mist 1 puffs INH Q6H PRN (Reason: dyspnea) Qty: 4 RF: 1 prednisone 20 mg tablet 20 mg PO DAILY 3 Days Qty: 3 RF: 0 Continued docusate sodium [Colace] 100 mg capsule 100 mg PO BID PRN (Reason: Constipation) Qty: 30 RF: 5 metformin 500 mg tablet 500 mg PO BID Qty: 60 RF: 5 Xarelto 20 mg tablet 20 mg PO DAILY Qty: 90 RF: 3 albuterol sulfate 2.5 mg /3 mL (0.083 %) solution for nebulization 2.5 mg inhalation Q4H PRN (Reason: shortness of breath or wheezing) Qty: 1 RF: 0 hydrocortisone 2.5 % cream with perineal applicator 1 applic ME HS Qty: 1 RF: 0 metoprolol succinate 100 mg tablet extended release 24 hr 200 mg PO QAM RF: 0 furosemide 40 mg tablet 40 mg PO BID RF: 0 gabapentin 600 mg tablet 600 mg PO BID RF: 0 trazodone 100 mg tablet 200 mg PO HS RF: 0 quetiapine 300 mg Tablet 300 mg PO HS RF: 0 hydroxyzine pamoate 50 mg Capsule 50 mg PO HS RF: 0 quetiapine [Seroquel] 100 mg Tablet 100 mg PO QAM RF: 0 diphenhydramine HCl [Benadryl Allergy] 25 mg tablet 25 mg PO QAM RF: 0 atorvastatin 10 mg Tablet 10 mg PO DAILY RF: 0 omeprazole 20 mg Capsule,Delayed Release(Dr/Ec) 20 mg PO QAM RF: 0 digoxin 125 mcg Tablet 0.125 mg PO DAILY RF: 0 Entresto 24-26 mg tablet 1 tab PO DAILY RF: 0 Stand-Alone Forms: My [facility] Discharge Orders: Discharge Order (Routine); Ordered 01/11/19 Ordered By: Jack Hayward Admission Data Admit Date/Time: 01/04/19 08:47 Attending Provider: Jack Hayward Admit Provider: Shelley Haque Primary Care Provider: Antonio Oliver V. Other Providers: Benjy Hagen ; Ron Christensen ; Home,Nursing Agency Service: Telemetry Medical Other Interventions: Discharge Summary Assessment (RN) Last Done: 01/11/19 09:44 DC Date/Time DO NOT enter until pt leaves facility: 01/11/19 11:17
== END 2019-01-11 11:17 | disposition home health service (06) | DRG 191 ==
LOC: ED 20:01 → 2N 20:01 → SUATTDRO 22:13 → 2N 23:01 → SUATTDRO 01-04 08:47 → 2N 01-05 00:34

== ENCOUNTER 2020-09-28 17:56 | Inpatient (IN) ==
[2020-09-28] MEDS ORDERED: LORazepam 1 MG/2 ML VIAL IV STA (18:25)
[2020-09-28 18:30] LABS: Basophils # (auto) 0.03 K/uL (0-0.2); Basophils % (auto) 0.1 %; Eosinophils # (auto) 0.09 K/uL (0-0.5); Eosinophils % (auto) 0.4 %; Hematocrit (blood only) 30.8 % (37-47); Hemoglobin 10.5 g/dL (12.0-16.0); Immature Granulocytes # (auto) 0.14 K/uL (0.00-0.02); Immature Granulocytes % (auto) 0.6 %; Lymphocytes # (auto) 1.97 K/uL (1.2-3.4); Lymphocytes % (auto) 8.3 %; Mean Corpuscular Hemoglobin 28.9 pg (25-34); Mean Corpuscular Hgb Conc 34.1 g/dL (32-36); Mean Corpuscular Volume 84.8 fL (80-100); Monocytes # (auto) 1.84 K/uL (0.11-0.59); Monocytes % (auto) 7.8 %; Neutrophils # (auto) 19.62 K/uL (1.4-6.5); Neutrophils % (auto) 82.8 %; Nucleated RBC # (auto) 0.06 K/uL (0-0); Nucleated RBC % (auto) 0.3 %; Platelet Count 432 K/uL (130-400); RDW Coefficient of Variation 15.3 % (11.5-14.5); RDW Standard Deviation 48.2 fL (36.4-46.3); Red Blood Count 3.63 M/uL (4.2-5.4); White Blood Count 23.69 K/uL (4.8-10.8)
--- NOTE | 2020-09-28 18:35 | Emergency Department Note ---
History of Present Illness General Chief complaint: Ankle Pain Stated complaint: ANKLE PAIN Time Seen by Provider: 09/28/20 18:13 Source: patient Mode of arrival: EMS Limitations: no limitations History of Present Illness Maximum Pain Intensity: 4 This patient is a 59-year-old female has multiple medical problems, comes in by ambulance this patient is a 59-year-old female this patient is a 59-year-old female with multiple medical problems, comes in by ambulance. Apparently she broke her ankle and was concerned she could not take care of her self. According the nurse that she was fine upon arrival but then got very panicky and said she was having a panic attack because she needed a fan. When I go in the room she keeps saying she needs some air on her. I asked if she has chest pain she denies any she denies shortness of breath or abdominal pain. She is tachycardic on the monitor and a little diaphoretic but her blood pressure is normal and her oxygen is normal with the oxygen on her. She says she does have a history of panic attacks and feels like this is panic attack. She has a history of CHF, arrhythmia PE and other pulmonary problems and says she is been taking all her medications as directed. Home Medications Medication Instructions Recorded Confirmed Type hydroxyzine pamoate 50 mg PO HS 10/07/18 08/28/20 History trazodone 200 mg PO HS 10/07/18 08/28/20 History metformin 500 mg tablet 500 mg PO BID #60 tab 12/15/18 08/28/20 Rx quetiapine [Seroquel] 100 mg PO QAM 01/02/19 08/28/20 History Oxygen Home #1 ea 05/09/19 08/28/20 Rx docusate sodium 100 mg capsule 100 mg PO BID #180 cap 06/28/19 08/28/20 Rx quetiapine 400 mg tablet 400 mg PO HS tab 07/05/19 08/28/20 History miscellaneous medical supply #1 ea 07/12/19 08/28/20 Rx magnesium oxide 400 mg (241.3 mg 400 mg PO DAILY #30 tab 12/26/19 08/28/20 Rx magnesium) tablet potassium chloride 20 mEq 40 meq PO DAILY #180 tab 03/19/20 08/28/20 Rx tablet,extended release atorvastatin 10 mg tablet 10 mg PO QAM #90 tab 04/09/20 08/28/20 Rx digoxin 125 mcg (0.125 mg) tablet 125 mcg PO QAM #90 tab 04/17/20 08/28/20 Rx rivaroxaban 20 mg tablet 20 mg PO QAM #90 tab 04/17/20 08/28/20 Rx omeprazole 20 mg capsule,delayed 20 mg PO DAILYBB #90 cap 06/09/20 08/28/20 Rx release pregabalin 100 mg capsule 100 mg PO BID 30 Days #60 cap 06/23/20 08/28/20 Rx Portable Oxygen #1 ea 07/29/20 08/28/20 Rx furosemide 40 mg tablet 80 mg PO BID #120 tab 08/08/20 08/28/20 Rx acetaminophen 325 mg capsule 650 mg PO Q4H PRN cap 08/27/20 08/28/20 History sacubitril 24 mg-valsartan 26 mg 1 tab PO BID #60 tab 08/27/20 08/28/20 Rx tablet oxycodone 5 mg tablet 5 mg PO Q6H PRN #20 tab 09/01/20 Rx metoprolol succinate 100 mg 150 mg PO QAM #45 tab 09/02/20 09/02/20 Rx tablet,extended release 24 hr mecobalamin (vitamin B12) 1,000 500 mcg PO DAILY #15 tab 09/03/20 Rx mcg chewable tablet thiamine HCl (vitamin B1) 100 mg 200 mg PO DAILY #60 tab 09/03/20 Rx tablet umeclidinium 62.5 mcg-vilanterol 1 inh INH Q24H #60 ea 09/11/20 Rx 25 mcg/actuation powdr for inhalation tramadol 50 mg tablet 50 mg PO Q6 PRN #40 tab 09/23/20 Rx Allergies Allergy/AdvReac Type Severity Reaction Status Date / Time fentanyl Allergy Mild RASH,ITCHIN Verified 08/12/20 01:45 G oxycodone AdvReac Intermediate Verified 09/26/20 16:04 Past Med/Surg History Medical History Adrenal adenoma Rt sided imaging 01/2020 Adrenal incidentaloma Asthma Atrial fibrillation Carpal tunnel syndrome CHF (congestive heart failure) 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% per echo 06/06/18; non-obstructive CAD per cath 2006 Chronic respiratory failure with hypoxia COPD (chronic obstructive pulmonary disease) Depression Diabetes type 2, controlled patient denies having diabetes, does not want further testing even though she is prescribed Metformin GERD (gastroesophageal reflux disease) GERD (gastroesophageal reflux disease) Glaucoma History of alcohol use History of pulmonary embolism History of tobacco abuse HTN (hypertension) Lightheadedness Memory impairment Morbid obesity Pericardial effusion Permanent atrial fibrillation PTSD (post-traumatic stress disorder) Pulmonary embolism 2013 while living in [place] Pulmonary hypertension Restrictive lung disease Schizoaffective disorder Schizoaffective disorder Severe mitral regurgitation Tibia/fibula fracture Ventricular arrhythmia Surgical History AICD (automatic cardioverter/defibrillator) present Pacemaker S/P ORIF (open reduction internal fixation) fracture ankle, left S/P tubal ligation Family History Mother , in her 70s Lung cancer from this Congestive heart failure (CHF) Breast cancer Father No problems noted. Other Hypertension Ulcerative colitis Denies family history of Colon cancer Ovarian cancer Prostate cancer Myocardial infarction Social History Smoking Status: Former smoker Tobacco Type: Cigarettes Years Smoked: 30; Cigarettes Per Day: <1; Second Hand Exposure: No; Hx Alcohol Use: No Hx Substance Use: No Preferred Language: Bengali Communication Ability: Effective Visual Impairment: No Limitations Hearing Ability: Normal Case Assistant Required: No Beliefs That Will Affect Care: None marital status: marital status details: 5 kids Current Living Situation: Alone and Other Current Living Situation Comment: personal caregivers 4 days a week for 2 hours a day. 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 Other Information That Helps Us Care for You: No other: lives in [place] Feels Safe at Home: Yes Safety Concerns: Feels Safe At This Time Childhood Exposure to Second-Hand Smoke: Yes Dental Care, Regularly: No Physical Activity Frequency: Does not Exercise Assistive Devices: Oxygen - Continuous Review of Systems A total of 10 systems reviewed and were otherwise negative Physical Exam Vital Signs Vital Signs - 24 hr 09/28/20 18:06 09/28/20 18:32 09/28/20 18:49 Temperature 36.7 C Temperature Source Oral Pulse Rate 160 H 156 H 169 H Pulse Rate from SpO2 Sensor 159 H 167 H Pulse Rhythm Regular Pulse Strength Normal Respiratory Rate 24 24 24 Respiratory Effort / Characteristics Non-Labored Respiratory Depth Shallow Respiratory Pattern Tachypnea Blood Pressure 131/96 110/84 Blood Pressure [Right Arm] Blood Pressure Mean 107 92 Blood Pressure Mean [Right Arm] Blood Pressure Position [Right Arm] Pulse Oximetry 100 95 93 Oxygen Delivery Method Nasal Cannula Nasal Cannula Nasal Cannula Oxygen Flow Rate 3 3 3 Sepsis Recent Fever Within 48 Hours No Sepsis New/Unexplained Change in Mental Status N/A Sepsis Action Taken by Nursing No Action Required 09/28/20 19:00 09/28/20 19:01 09/28/20 20:00 Temperature Temperature Source Pulse Rate 158 H 169 H 155 H Pulse Rate from SpO2 Sensor 165 H 159 H 136 H Pulse Rhythm Pulse Strength Respiratory Rate 24 24 35 H Respiratory Effort / Characteristics Respiratory Depth Respiratory Pattern Blood Pressure 93/74 L 123/86 Blood Pressure [Right Arm] Blood Pressure Mean 80 98 Blood Pressure Mean [Right Arm] Blood Pressure Position [Right Arm] Pulse Oximetry 96 96 97 Oxygen Delivery Method Nasal Cannula Oxygen Flow Rate 3 Sepsis Recent Fever Within 48 Hours Sepsis New/Unexplained Change in Mental Status Sepsis Action Taken by Nursing 09/28/20 20:01 09/28/20 20:08 09/28/20 20:32 Temperature Temperature Source Pulse Rate 140 H 146 H Pulse Rate from SpO2 Sensor 141 H Pulse Rhythm Pulse Strength Respiratory Rate 44 H 24 Respiratory Effort / Characteristics Respiratory Depth Respiratory Pattern Blood Pressure 107/69 Blood Pressure [Right Arm] 123/86 Blood Pressure Mean 81 Blood Pressure Mean [Right Arm] 98 Blood Pressure Position [Right Arm] Lying Pulse Oximetry 98 Oxygen Delivery Method Oxygen Flow Rate Sepsis Recent Fever Within 48 Hours Sepsis New/Unexplained Change in Mental Status Sepsis Action Taken by Nursing 09/28/20 20:40 Temperature Temperature Source Pulse Rate Pulse Rate from SpO2 Sensor Pulse Rhythm Pulse Strength Respiratory Rate 22 Respiratory Effort / Characteristics Non-Labored Spontaneous Respiratory Depth Normal Respiratory Pattern Blood Pressure Blood Pressure [Right Arm] Blood Pressure Mean Blood Pressure Mean [Right Arm] Blood Pressure Position [Right Arm] Pulse Oximetry 97 Oxygen Delivery Method Nasal Cannula Oxygen Flow Rate 3 Sepsis Recent Fever Within 48 Hours Sepsis New/Unexplained Change in Mental Status Sepsis Action Taken by Nursing General: Well developed well nourished anxious middle age femal in no acute distress, breathing comfortably on room air. Normal speech HEENT: Normal cephalic atraumatic. Pupils are equal round and reactive to light. Extraocular movements are intact. Oropharynx is pink with moist mucous membranes. No swelling of the mouth lips or tongue. Neck: Supple with a midline trachea. No meningeal signs or stiffness, no JVD or bruits. No Stridor. Chest: Clear to auscultation bilaterally. No wheezes or rhonchi. No increased work of breathing. Heart: Regular rate and rhythm without murmurs or gallops. Tachycardic Abdomen: Soft nontender, nondistended without rebound guarding or rigidity. Extremities: No cyanosis clubbing or edema. No calf tenderness or assymetry Spine/Back. Non tender to palpation. No CVA tenderness Skin: Good turgor without rashes. Neurologic exam: Cranial nerves two through 12 are intact. Motor and sensation are intact and symmetrical throughout. Course Administered Medications Lactated Ringer's (Lr) 1,000 mls @ 125 mls/hr IV .Q8H [facility] Stop: 09/29/20 14:42 Last Admin: 09/28/20 23:58 Dose: 125 mls/hr Documented by: [id number] Vancomycin HCl 2,500 mg/ (Sodium Chloride) 550 mls @ 200 mls/hr IV NOW STA Stop: 09/29/20 01:50 Last Admin: 09/28/20 23:58 Dose: 200 mls/hr Documented by: [id number] Cefepime HCl 1,000 mg/ Syringe 11.3 mls @ 5.5 mls/min IV Q8H [facility]; Protocol Stop: 10/01/20 00:00 Last Admin: 09/28/20 23:58 Dose: 5.5 mls/min Documented by: [id number] Insulin Aspart (Insulin Aspart 100 Units/Ml 3 Ml Pen) 0 units SC ACHS [facility] Stop: 10/28/20 23:14 Last Admin: 09/28/20 23:59 Dose: Not Given Documented by: [id number] Insulin Glargine (Insulin Glargine Solostar 100 Units/Ml 3 Ml Pen) 5 units SC BID [facility] Stop: 10/28/20 23:14 Last Admin: 09/28/20 23:58 Dose: 5 units Documented by: [id number] Cosigned by: [id number] Discontinued Medications Lorazepam (Ativan) 1 mg in 2 mls @ 2 mls/min IV NOW STA Stop: 09/28/20 18:26 Last Admin: 09/28/20 18:32 Dose: 2 mls/min Documented by: [id number] Piperacillin Sod/Tazobactam Sod (Zosyn) 4.5 gm in 120 mls @ 240 mls/hr IV NOW ONE Stop: 09/28/20 19:30 Last Infusion: 09/28/20 21:06 Dose: 0 mls/hr Documented by: [id number] Admin: 09/28/20 20:03 Dose: 240 mls/hr Documented by: [id number] Sodium Chloride (Nss) 250 mls @ 999 mls/hr IV .Q16M ONE Stop: 09/28/20 20:06 Last Infusion: 09/28/20 21:06 Dose: 0 mls/hr Documented by: [id number] Admin: 09/28/20 20:04 Dose: 999 mls/hr Documented by: [id number] Ioversol (Optiray 350 500ml) 119 ml IV ONCE ONE Stop: 09/28/20 19:27 Last Admin: 09/28/20 19:27 Dose: 119 ml Documented by: [id number] Critical Care Time Critical Care Time: Yes Total Critical Care Time: 45 Due to the patient's tachycardia, complicated medical history with multiple medications, evaluation and consultation and testing required, I have personally spent greater than 45 minutes of critical care time in the direct management of this patient. This includes bedside care, interpretation of diagnostic studies, and testing, discussion with consultants, patient, and family members, and other required patient management activities. This 45 minutes is in excess of all separately billable procedures. Medical Decision Making Differential Diagnosis CHF, pneumonia, arrhythmia, A. fib, electrolyte or metabolic abnormality, PE, Covid, anxiety, anemia, medication side effect, toxicologic Medical Records Attestation: I reviewed the patient's medical records. Home Medications Current Medication List: was personally reviewed by me Laboratory Data Attestation: I reviewed the patient's lab results. Result diagrams: 09/28/20 18:22 09/28/20 18:22 Lab Results 09/28/20 09/28/20 09/28/20 Range/Units 18:22 18:22 18:22 WBC 23.69 H (4.8-10.8) K/uL RBC 3.63 L (4.2-5.4) M/uL Hgb 10.5 L (12.0-16.0) g/dL Hct 30.8 L (37-47) % MCV 84.8 (80-100) fL MCH 28.9 (25-34) pg MCHC 34.1 (32-36) g/dL RDW Std Deviation 48.2 H (36.4-46.3) fL RDW Coeff of [place] 15.3 H (11.5-14.5) % Plt Count 432 H (130-400) K/uL MPV 9.0 (7.4-10.4) fL Immature Gran % (Auto) 0.6 % Neut % (Auto) 82.8 % Lymph % (Auto) 8.3 % [place] % (Auto) 7.8 % Eos % (Auto) 0.4 % Baso % (Auto) 0.1 % Neut # (Auto) 19.62 H (1.4-6.5) K/uL Lymph # (Auto) 1.97 (1.2-3.4) K/uL [place] # (Auto) 1.84 H (0.11-0.59) K/uL Eos # (Auto) 0.09 (0-0.5) K/uL Baso # (Auto) 0.03 (0-0.2) K/uL Immature Gran # (Auto) 0.14 H (0.00-0.02) K/uL Absolute Nucleated RBC 0.06 H (0-0) K/uL Nucleated RBC % (auto) 0.3 % PT 11.9 (9.0-12.0) Seconds INR 1.2 H (0.9-1.1) APTT 28.3 (21.0-31.0) Seconds PTT Ratio 1.1 D-Dimer 2180 H* (0-500) ug/L FEU Sodium 136 (136-145) mmol/L Potassium 3.3 L (3.5-5.1) mmol/L Chloride 96 L (98-107) mmol/L Carbon Dioxide 29 (21-32) mmol/L Anion Gap 11.0 (3-11) BUN 7 (7-18) mg/dl Creatinine 1.03 (0.6-1.2) mg/dl Est Cr Clr Drug Dosing 77.5 ml/min Est GFR ( Amer) 69.4 Est GFR (Non-Af Amer) 59.9 BUN/Creatinine Ratio 6.8 L (10-20) Glucose 188 H (70-99) mg/dl Lactate (0.4-2.0) mmol/L Calcium 9.8 (8.5-10.1) mg/dl Phosphorus 3.8 (2.5-4.9) mg/dl Magnesium 2.2 (1.8-2.4) mg/dl Total Bilirubin 1.9 H (0.2-1) mg/dl AST 47 H (15-37) U/L ALT 28 (12-78) U/L Alkaline Phosphatase 293 H (45-117) U/L Total Creatine Kinase 106 (26-192) U/L Troponin I < 0.015 (0-0.045) ng/ml NT-Pro-B Natriuret Pep 4232 H (0-900) pg/ml Total Protein 8.4 H (6.4-8.2) gm/dl Albumin 2.4 L (3.4-5.0) gm/dl Globulin 6.0 H (2.5-4.0) gm/dl Albumin/Globulin Ratio 0.4 L (0.9-2) Lipase 45 L (73-393) U/L Procalcitonin (0-0.5) ng/ml Digoxin (0.8-2.0) ng/ml COVID-19 Eval Order SARS-CoV-2 (PCR) (Negative) Influenza Type A (PCR) (Neg) Influenza Type B (PCR) (Neg) RSV (RT-PCR) (Neg) 09/28/20 09/28/20 09/28/20 Range/Units 18:22 18:22 19:53 WBC (4.8-10.8) K/uL RBC (4.2-5.4) M/uL Hgb (12.0-16.0) g/dL Hct (37-47) % MCV (80-100) fL MCH (25-34) pg MCHC (32-36) g/dL RDW Std Deviation (36.4-46.3) fL RDW Coeff of Logan (11.5-14.5) % Plt Count (130-400) K/uL MPV (7.4-10.4) fL Immature Gran % (Auto) % Neut % (Auto) % Lymph % (Auto) % [place] % (Auto) % Eos % (Auto) % Baso % (Auto) % Neut # (Auto) (1.4-6.5) K/uL Lymph # (Auto) (1.2-3.4) K/uL [place] # (Auto) (0.11-0.59) K/uL Eos # (Auto) (0-0.5) K/uL Baso # (Auto) (0-0.2) K/uL Immature Gran # (Auto) (0.00-0.02) K/uL Absolute Nucleated RBC (0-0) K/uL Nucleated RBC % (auto) % PT (9.0-12.0) Seconds INR (0.9-1.1) APTT (21.0-31.0) Seconds PTT Ratio D-Dimer (0-500) ug/L FEU Sodium (136-145) mmol/L Potassium (3.5-5.1) mmol/L Chloride (98-107) mmol/L Carbon Dioxide (21-32) mmol/L Anion Gap (3-11) BUN (7-18) mg/dl Creatinine (0.6-1.2) mg/dl Est Cr Clr Drug Dosing ml/min Est GFR ( Amer) Est GFR (Non-Af Amer) BUN/Creatinine Ratio (10-20) Glucose (70-99) mg/dl Lactate 3.2 H* (0.4-2.0) mmol/L Calcium (8.5-10.1) mg/dl Phosphorus (2.5-4.9) mg/dl Magnesium (1.8-2.4) mg/dl Total Bilirubin (0.2-1) mg/dl AST (15-37) U/L ALT (12-78) U/L Alkaline Phosphatase (45-117) U/L Total Creatine Kinase (26-192) U/L Troponin I (0-0.045) ng/ml NT-Pro-B Natriuret Pep (0-900) pg/ml Total Protein (6.4-8.2) gm/dl Albumin (3.4-5.0) gm/dl Globulin (2.5-4.0) gm/dl Albumin/Globulin Ratio (0.9-2) Lipase (73-393) U/L Procalcitonin 0.96 H (0-0.5) ng/ml Digoxin 0.5 L (0.8-2.0) ng/ml COVID-19 Eval Order SARS-CoV-2 (PCR) (Negative) Influenza Type A (PCR) (Neg) Influenza Type B (PCR) (Neg) RSV (RT-PCR) (Neg) 09/28/20 09/28/20 Range/Units 20:00 20:00 WBC (4.8-10.8) K/uL RBC (4.2-5.4) M/uL Hgb (12.0-16.0) g/dL Hct (37-47) % MCV (80-100) fL MCH (25-34) pg MCHC (32-36) g/dL RDW Std Deviation (36.4-46.3) fL RDW Coeff of [place] (11.5-14.5) % Plt Count (130-400) K/uL MPV (7.4-10.4) fL Immature Gran % (Auto) % Neut % (Auto) % Lymph % (Auto) % [place] % (Auto) % Eos % (Auto) % Baso % (Auto) % Neut # (Auto) (1.4-6.5) K/uL Lymph # (Auto) (1.2-3.4) K/uL [place] # (Auto) (0.11-0.59) K/uL Eos # (Auto) (0-0.5) K/uL Baso # (Auto) (0-0.2) K/uL Immature Gran # (Auto) (0.00-0.02) K/uL Absolute Nucleated RBC (0-0) K/uL Nucleated RBC % (auto) % PT (9.0-12.0) Seconds INR (0.9-1.1) APTT (21.0-31.0) Seconds PTT Ratio D-Dimer (0-500) ug/L FEU Sodium (136-145) mmol/L Potassium (3.5-5.1) mmol/L Chloride (98-107) mmol/L Carbon Dioxide (21-32) mmol/L Anion Gap (3-11) BUN (7-18) mg/dl Creatinine (0.6-1.2) mg/dl Est Cr Clr Drug Dosing ml/min Est GFR ( Amer) Est GFR (Non-Af Amer) BUN/Creatinine Ratio (10-20) Glucose (70-99) mg/dl Lactate (0.4-2.0) mmol/L Calcium (8.5-10.1) mg/dl Phosphorus (2.5-4.9) mg/dl Magnesium (1.8-2.4) mg/dl Total Bilirubin (0.2-1) mg/dl AST (15-37) U/L ALT (12-78) U/L Alkaline Phosphatase (45-117) U/L Total Creatine Kinase (26-192) U/L Troponin I (0-0.045) ng/ml NT-Pro-B Natriuret Pep (0-900) pg/ml Total Protein (6.4-8.2) gm/dl Albumin (3.4-5.0) gm/dl Globulin (2.5-4.0) gm/dl Albumin/Globulin Ratio (0.9-2) Lipase (73-393) U/L Procalcitonin (0-0.5) ng/ml Digoxin (0.8-2.0) ng/ml COVID-19 Eval Order [facility]Rsv at [facility] SARS-CoV-2 (PCR) NEGATIVE (Negative) Influenza Type A (PCR) Negative (Neg) Influenza Type B (PCR) Negative (Neg) RSV (RT-PCR) Negative (Neg) Imaging Data Attestation: I personally reviewed and interpreted this imaging study as follows: My Impression: Chest xray-audio megaly but no acute infiltrate, failure, pneumo thorax seen Radiologist's Impression: Chest X-Ray 09/28/20 18:21 XR chest 1V portable CLINICAL HISTORY: Chest Pain COMPARISON STUDY: No previous studies for comparison. FINDINGS: A left biventricular pacer/AICD is in place. Marked cardiomegaly is unchanged. No pneumothorax is present. A possible small left pleural effusion is probably artifactual. There is pulmonary vascular congestion without evidence for pulmonary edema. No lobar consolidation is present. IMPRESSION: Cardiomegaly with pulmonary vascular congestion. No overt pulmonary edema. ACT 112: Negative or not required by law. Electronically signed by: Gurmeet Zamora M.D. 09/28/2020 7:17 PM Chest CTA 09/28/20 18:58 CT ANGIOGRAPHY OF THE CHEST, PULMONARY EMBOLUS PROTOCOL CLINICAL HISTORY: Shortness of breath. Evaluate for pulmonary embolus. COMPARISON STUDY: Chest CT June 29, 2019. Chest radiograph performed earlier today. TECHNIQUE: Following IV administration of 119 mL of Optiray, helical axial images of the chest were obtained utilizing the pulmonary embolus protocol. Maximal intensity projections and sagittal and coronal reformats were viewed on an independent 3D workstation. IV contrast was administered without complication. Automated exposure control was utilized for the study. A dose lowering technique was utilized adhering to the principles of ALARA. CT DOSE: 845.66 mGy.cm FINDINGS: A left subclavian biventricular pacer/AICD is in place. No pulmonary emboli are identified although the segmental and subsegmental pulmonary arteries are suboptimally assessed due to respiratory motion. Marked cardiomegaly is noted. Trace pericardial effusion is noted. This is decreased in size when compared to CT of June 29, 2019. No enlarged axillary, mediastinal or hilar lymph nodes are present. There is no pneumomediastinum. Lungs are suboptimally assessed due to respiratory motion. There is no consolidation to suggest pneumonia. Mild subpleural groundglass opacities favor atelectasis. Lingular and right middle lobe opacity reflects atelectasis. No acute fracture or suspicious lesion is identified within visualized portions of the bony thorax. IMPRESSION: 1. No pulmonary emboli identified although segmental and subsegmental pulmonary arteries suboptimally assessed due to respiratory motion. 2. Marked cardiomegaly. 3. No consolidation to suggest pneumonia. ACT 112: Negative or not required by law. Electronically signed by: Gurmeet Zamora M.D. 09/28/2020 7:38 PM ECG Data Attestation: I personally reviewed and interpreted this ECG as follows: Indication: + SOB/dyspnea Rate (beats per minute): 164 Rhythm: + atrial fibrillation ECG Intervals/blocks: + Normal QRS and + Normal QT ECG ST segments: + Nonspecific ST abnormalities ECG Findings: no PACs and no PVCs Comparison ECG Date: from (08/13/19) Change: the following changes noted (Rate has increased, A. fib has replaced placed a flutter) MDM Narrative This patient comes in as described above. She was placed on a ribbon lap machine tender room B5. She was noted to be tachycardic however she is very anxious. She is asking for a fan. We tried to try to get her one. I did offer to give her some Ativan as she says she feels like she is having a panic attack. Her lungs are clear and she is not hypoxemic. I did give her Ativan 1 mg IV. She does not appear to be in any significant respiratory distress but just feels very anxious. She has a significant past medical history which includes cardiac pulmonary and blood clots as well as mental health. The Ativan I felt would help her relax so we could further work her up and also help with any toxicologic potential issues. She denies that she had any overdose. We also did give her a fan as per her request. These 2 measures helped her greatly and she felt and looked a lot better. Heart rate came down but still remained tachycardic in the 140s. She denies chest pain or shortness of breath. Her D- dimer was elevated I did a CTA there is no evidence of PE or other acute abnormalities. Her white count was elevated at over 20,000, I do not have a definite source of infection she has no fever but concern for sepsis so I did give her IV Zosyn. Given her elevated white count I did add a lactic acid as well as blood cultures and we established a second IV. Her lactic acid was mildly elevated in the 3 range further supporting possible sepsis. her dig level is not elevated I do not think she is likely dig toxic. She has no significant electrolyte or metabolic abnormalities. She does not appear to be in failure. I did give her a small fluid bolus concerned in for sepsis of just 250 cc given the fact that she has significant CHF. She tolerated this well. In terms of her rate I think it is compensatory for probable sepsis and it is starting to come down with fluids and treatment. I do think she needs to be admitted for further treatment and evaluation of discussed this case with Dr. Sanchez who saw her in the ER for these measures. Impression & Plan Sepsis, Schizoaffective disorder, Anxiety, Atrial fibrillation with RVR, Lab test negative for COVID-19 virus Discharge Plan Visit Data Chief Complaint: Ankle Pain Stated Complaint: ANKLE PAIN ED Provider: Giuseppe De Leon Discharge Problem: Sepsis, Schizoaffective disorder, Anxiety, Atrial fibrillation with RVR, Lab test negative for COVID-19 virus Patient Disposition: Admitted As Inpatient Discharge Instructions Interventions: ED Discharge Assessment Last Done: 09/28/20 22:27 Discharge Problem: Sepsis Qualifiers: Sepsis type: sepsis due to unspecified organism Sepsis acute organ dysfunction status: without acute organ dysfunction Qualified Code(s): A41.9 - Sepsis, unspe cified organism Schizoaffective disorder Qualifiers: Schizoaffective disorder type: unspecified Qualified Code(s): F25.9 - Schizoaffective disorder, unspecified
[2020-09-28 18:41] LABS: INR 1.2 (0.9-1.1); Partial Thromboplastin Ratio 1.1; Partial Thromboplastin Time 28.3 Seconds (21.0-31.0); Prothrombin Time 11.9 Seconds (9.0-12.0)
[2020-09-28 18:47] LABS: Alanine Aminotransferase 28 U/L (12-78); Albumin Level 2.4 gm/dl (3.4-5.0); Aspartate Aminotransferase 47 U/L (15-37); BUN Creatinine Ratio 6.8 (10-20); Blood Urea Nitrogen 7 mg/dl (7-18); Calcium 9.8 mg/dl (8.5-10.1); Carbon Dioxide 29 mmol/L (21-32); Chloride 96 mmol/L (98-107); Creatinine Clr Calc Pharmacy 77.5 ml/min; Est GFR (African American) 69.4; Est GFR (Non-African American) 59.9; Glucose 188 mg/dl (70-99); Lipase 45 U/L (73-393); Potassium 3.3 mmol/L (3.5-5.1); Sodium 136 mmol/L (136-145)
[2020-09-28 18:52] LABS: Albumin Globulin Ratio 0.4 (0.9-2); Alkaline Phosphatase 293 U/L (45-117); Bilirubin,Total 1.9 mg/dl (0.2-1); NT Pro B Type Natriuretic Pept 4232 pg/ml (0-900); Total Protein 8.4 gm/dl (6.4-8.2); Troponin I < 0.015 ng/ml (0-0.045)
[2020-09-28 18:54] LABS: D Dimer 2180 ug/L FEU (0-500)
[2020-09-28] MEDS ORDERED: PIPERACILL/TAZOBAC CONSULT ACTIVE PRN (19:01)
[2020-09-28] MEDS ORDERED: PIPERACILLIN/TAZOBACTAM 4.5 GM/120 ML BAG IV ONE (19:01)
--- NOTE | 2020-09-28 19:19 | XRay Report ---
XR chest 1V portable CLINICAL HISTORY: Chest Pain COMPARISON STUDY: No previous studies for comparison. FINDINGS: A left biventricular pacer/AICD is in place. Marked cardiomegaly is unchanged. No pneumotho rax is present. A possible small left pleural effusion is probably artifactual. There is pulmonary va scular congestion without evidence for pulmonary edema. No lobar consolidation is present. IMPRESSION: Cardiomegaly with pulmonary vascular congestion. No overt pulmonary edema. ACT 112: Negative or not required by law. Electronically signed by: Gurmeet Zamora M.D. 09/28/2020 7:17 PM
[2020-09-28] MEDS ORDERED: OPTIRAY 350 500ml IV ONE (19:26)
--- NOTE | 2020-09-28 19:40 | CT Scan Report ---
CT ANGIOGRAPHY OF THE CHEST, PULMONARY EMBOLUS PROTOCOL CLINICAL HISTORY: Shortness of breath. Evaluate for pulmonary embolus. COMPARISON STUDY: Chest CT June 29, 2019. Chest radiograph performed earlier today. TECHNIQUE: Following IV administration of 119 mL of Optiray, helical axial images of the chest were o btained utilizing the pulmonary embolus protocol. Maximal intensity projections and sagittal and cor onal reformats were viewed on an independent 3D workstation. IV contrast was administered without co mplication. Automated exposure control was utilized for the study. A dose lowering technique was ut ilized adhering to the principles of ALARA. CT DOSE: 845.66 mGy.cm FINDINGS: A left subclavian biventricular pacer/AICD is in place. No pulmonary emboli are identified although the segmental and subsegmental pulmonary arteries are suboptimally assessed due to respirat ory motion. Marked cardiomegaly is noted. Trace pericardial effusion is noted. This is decreased in s ize when compared to CT of June 29, 2019. No enlarged axillary, mediastinal or hilar lymph nodes a re present. There is no pneumomediastinum. Lungs are suboptimally assessed due to respiratory motion. There is no consolidation to suggest pneumonia. Mild subpleural groundglass opacities favor atelecta sis. Lingular and right middle lobe opacity reflects atelectasis. No acute fracture or suspicious les ion is identified within visualized portions of the bony thorax. IMPRESSION: 1. No pulmonary emboli identified although segmental and subsegmental pulmonary arteries suboptimally assessed due to respiratory motion. 2. Marked cardiomegaly. 3. No consolidation to suggest pneumonia. ACT 112: Negative or not required by law. Electronically signed by: Gurmeet Zmaora M.D. 09/28/2020 7:38 PM
[2020-09-28] MEDS ORDERED: SODIUM CHLORIDE 0.9% 250 ML IV ONE (19:51)
[2020-09-28 20:49] LABS: Influenza A virus by PCR Negative (Neg); Influenza B virus by PCR Negative (Neg); RSV by PCR Negative (Neg); SARS CoV2 RNA(COVID-19) InHosp NEGATIVE (Negative)
--- NOTE | 2020-09-28 20:54 | History & Physical Report ---
Date of Service September 28, 2020 Assessment & Plan (1) Sepsis: Possible sepsis - patient tachycardic, tachypneic, leukocytosis with WBC=23.69 with neutrophil predominance and bands, thrombocytosis with [id number]=196, suspect acute phase reaction in setting of infection. Elevated lactate of 3.2 which improved slighlty to 2.5 - patient with chronically elevated lactate. Unclear source of infection. CT chest with no PNA. UA and blood cultures pending. She does have slight increase in LFTs with T-bili of 1.9, AP of 293 suggesting possible GI source, however, no abdominal pain on deep palpation. No RUQ pain. Negative Clarke's sign. Additional source of infection could be left ankle - she is 1 month out from her ORIF, hardware in place. -Admit to PCU -Follow cultures -Check RUQUS -Check X-ray left ankle -Check Procalcitonin -Empiric Vancomycin and Cefepime -LR at 125mL/hr x 2 liters -Tylenol PRN fever Present on Admission?: Yes (2) Atrial fibrillation with RVR: Patient with AF with RVR. HR 140-170 here. Minimally responsive to IVF. Digoxin subtherapeutic at 0.5 -Telemetry monitoring -Continue Metoprolol succinate 150mg po daily -Continue Digoxin 0.125mg po daily -Continue Xarelto 20mg po daily -HR now 172, unresponsive to IVF. Will try Metoprolol 5mg IV x 1, if response will repeat. -May also consider IV digoxin load Present on Admission?: Yes (3) Diabetes type 2, controlled: Controlled. Last Hgb A1C = 6.5 on 08/12/20 -Hold Metformin while hospitalized -Lantus 5u BID -ISS -Goal blood sugar 100 - 140 -Continue Lyrica 100mg po BID for neuropathy Present on Admission?: Yes (4) Fracture of tibia and fibula: Patient with cast in place. She follows with Ortho -Tramadol 50mg po q6 hours PRN Present on Admission?: Yes (5) Anxiety: Chronic. Patient follows at [facility] -Continue Hydroxyzine 50mg po qHS Present on Admission?: Yes (6) COPD (chronic obstructive pulmonary disease): Patient with no cough or wheeze. Seems to be compensated -Continue Umeclidinium/Vilanterol -Xopenex neb PRN Present on Admission?: Yes (7) Chronic systolic heart failure: Patient appears to be well compensated, not overtly volume overloaded -Continue metoprolol -Continue Entresto BID -Cautious use of fluids in presumed sepsis with close monitoring of volume status -Holding Lasix PO for now Present on Admission?: Yes (8) Schizoaffective disorder: Patient reports that her moods have been stable and that she is thinking clearly -Continue Seroquel 400mg po qHS and 100mg po qAM -Trazodone 200mg po qHS Present on Admission?: Yes (9) GERD (gastroesophageal reflux disease): Chronic -Continue Protonix 40mg po daily Present on Admission?: Yes (10) HTN (hypertension): Blood pressure stable -Continue Metoprolol -Continue Entresto -Monitor F/E/N - LR at 125mL/hr x 2 liters, K repletion, Mg and PO4 within normal limits, CC/AHA diet as tolerated Ppx - Anticoagulation with Rivaroxaban Code - Full Dispo - Admit to PCU Present on Admission?: Yes History of Present Illness Chief Complaint: ankle pain, unable to care for self at home Primary Care Provider: Antonio Oliver MD Patient is a poor historian and has some difficulty recounting events prior to arrival. Grazyna Gonzales is a 59yo female with multiple medical comorbidities presenting with left ankle pain, diffuse weakness, anxiety, SOB and difficulty performing ADLs at home. Patient reports that she has not been able to get around lately. She states she has been declining over the last several months. Patient lives alone and has a [employer] 5 days/week. She reports she has been taking her medications She denies fevers but has had some chills and sweats. She denies headache, visual changes, neck pain or stiffness, denies chest pain, palpitations, cough, SOB, sputum production, abdominal pain, nausea, vomiting, diarrhea or constipation. She denies dysuria/hematuria, focal numbness or weakness. She denies rash or painful joints. Patient had a fall at home on 08/12/20 resulting in a left displaced and slightly comminuted tibia/fibula fracture. She had an open reduction/internal fixation performed on 08/13/[address] Sanchez. She has a slow healing wound - no evidence of infection as examined on 09/18/20. She is in a cast presently. Upon arrival to the ER patient was in significant distress. She was tachyc ardic, tachypneic, diaphoretic and stating that she was unable to breathe. She was requesting a box fan. ER Course: Zosyn, Ativan, NSS x 250 Allergies Allergy/AdvReac Type Severity Reaction Status Date / Time fentanyl Allergy Mild RASH,ITCHIN Verified 08/12/20 01:45 G oxycodone AdvReac Intermediate Verified 09/26/20 16:04 Home Medications Medication Instructions Recorded Confirmed Type hydroxyzine pamoate 50 mg PO HS 10/07/18 09/29/20 History trazodone 200 mg PO HS 10/07/18 09/29/20 History metformin 500 mg tablet 500 mg PO BID #60 tab 12/15/18 09/29/20 Rx quetiapine [Seroquel] 100 mg PO QAM 01/02/19 09/29/20 History Oxygen Home #1 ea 05/09/19 08/28/20 Rx docusate sodium 100 mg capsule 100 mg PO BID #180 cap 06/28/19 09/29/20 Rx quetiapine 400 mg tablet 400 mg PO HS tab 07/05/19 09/29/20 History miscellaneous medical supply #1 ea 07/12/19 08/28/20 Rx magnesium oxide 400 mg (241.3 mg 400 mg PO DAILY #30 tab 12/26/19 09/29/20 Rx magnesium) tablet potassium chloride 20 mEq 40 meq PO DAILY #180 tab 03/19/20 09/29/20 Rx tablet,extended release atorvastatin 10 mg tablet 10 mg PO QAM #90 tab 04/09/20 09/29/20 Rx digoxin 125 mcg (0.125 mg) tablet 125 mcg PO QAM #90 tab 04/17/20 09/29/20 Rx rivaroxaban 20 mg tablet 20 mg PO QAM #90 tab 04/17/20 09/29/20 Rx omeprazole 20 mg capsule,delayed 20 mg PO DAILYBB #90 cap 06/09/20 09/29/20 Rx release pregabalin 100 mg capsule 100 mg PO BID 30 Days #60 cap 06/23/20 09/29/20 Rx Portable Oxygen #1 ea 07/29/20 08/28/20 Rx furosemide 40 mg tablet 80 mg PO BID #120 tab 08/08/20 09/29/20 Rx acetaminophen 325 mg capsule 650 mg PO Q4H PRN cap 08/27/20 09/29/20 History sacubitril 24 mg-valsartan 26 mg 1 tab PO BID #60 tab 08/27/20 09/29/20 Rx tablet oxycodone 5 mg tablet 5 mg PO Q6H PRN #20 tab 09/01/20 09/29/20 Rx metoprolol succinate 100 mg 150 mg PO QAM #45 tab 09/02/20 09/29/20 Rx tablet,extended release 24 hr mecobalamin (vitamin B12) 1,000 500 mcg PO DAILY #15 tab 09/03/20 09/29/20 Rx mcg chewable tablet thiamine HCl (vitamin B1) 100 mg 200 mg PO DAILY #60 tab 09/03/20 09/29/20 Rx tablet umeclidinium 62.5 mcg-vilanterol 1 inh INH Q24H #60 ea 09/11/20 09/29/20 Rx 25 mcg/actuation powdr for inhalation tramadol 50 mg tablet 50 mg PO Q6 PRN #40 tab 09/23/20 09/29/20 Rx Past Med/Surg History Medical History Adrenal adenoma Rt sided imaging 01/2020 Adrenal incidentaloma Asthma Atrial fibrillation Carpal tunnel syndrome CHF (congestive heart failure) 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% per echo 06/06/18; non-obstructive CAD per cath 2006 Chronic respiratory failure with hypoxia COPD (chronic obstructive pulmonary disease) Depression Diabetes type 2, controlled patient denies having diabetes, does not want further testing even though she is prescribed Metformin GERD (gastroesophageal reflux disease) GERD (gastroesophageal reflux disease) Glaucoma History of alcohol use History of pulmonary embolism History of tobacco abuse HTN (hypertension) Lightheadedness Memory impairment Morbid obesity Pericardial effusion Permanent atrial fibrillation PTSD (post-traumatic stress disorder) Pulmonary embolism 2013 while living in [place] Pulmonary hypertension Restrictive lung disease Schizoaffective disorder Schizoaffective disorder Severe mitral regurgitation Tibia/fibula fracture Ventricular arrhythmia Surgical History AICD (automatic cardioverter/defibrillator) present Pacemaker S/P ORIF (open reduction internal fixation) fracture ankle, left S/P tubal ligation Family History Mother , in her 70s Lung cancer from this Congestive heart failure (CHF) Breast cancer Father No problems noted. Other Hypertension Ulcerative colitis Denies family history of Colon cancer Ovarian cancer Prostate cancer Myocardial infarction Social History Smoking Status: Former smoker Tobacco Type: Cigarettes Years Smoked: 30; Cigarettes Per Day: <1; Second Hand Exposure: No; Hx Alcohol Use: No Hx Substance Use: No Preferred Language: Kiswahili Communication Ability: Effective Visual Impairment: No Limitations Hearing Ability: Normal Night Clerk Auditor Required: No Beliefs That Will Affect Care: None marital status: marital status details: 5 kids Current Living Situation: Alone and Other Current Living Situation Comment: personal caregivers 4 days a week for 2 hours a day. 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 [employer]; was in [employer] x 7 yr Other Information That Helps Us Care for You: No other: lives in [place] Feels Safe at Home: Yes Safety Concerns: Feels Safe At This Time Childhood Exposure to Second-Hand Smoke: Yes Dental Care, Regularly: No Physical Activity Frequency: Does not Exercise Assistive Devices: Oxygen - Continuous Review of Systems Review of Systems: All systems reviewed & are unremarkable except as noted in HPI & below Physical Exam Physical Exam: General: patient resting comfortably, NAD, non-toxic in appearance, AA&O x 3 Skin: warm, dry, intact, scattered areas of excoriation from itching HEENT: NC/AT, PERRL, EOMI, anicteric sclera, conjunctiva without injection, external ear normal to inspection and nontender, nares patent, moist mucus membranes, dentition intact, no oropharyngeal lesions, neck supple, trachea midline, no LAD, no thyromegaly, no JVD Heart: +S1/S2, irregular irregular, tachycardic, no m/r/g Lungs: equal air entry bilaterally, no rales/rhonchi/wheezes Abd: +BS, soft, NT/ND, no masses/organomegaly/ascites Ext: warm, 2+ pulses in UE/LE bilaterally, no clubbing/cyanosis or edema Neuro: nonfocal, patient AA&O x 3, speech intact, no facial droop, moving all extremities on command with equal strength 5/5 Results & Data Results & Data ([facility]) Vital Signs (Past 12 Hours) Vital Signs Temp Pulse Resp BP BP Pulse Ox 09/28/20 20:40 22 97 09/28/20 20:08 123/86 09/28/20 20:01 140 H 44 H 98 09/28/20 20:00 155 H 35 H 123/86 97 09/28/20 19:01 169 H 24 93/74 L 96 09/28/20 19:00 158 H 24 96 09/28/20 18:49 169 H 24 93 09/28/20 18:32 156 H 24 110/84 95 09/28/20 18:06 36.7 C 160 H 24 131/96 100 Laboratory Results Lab Results 09/28/20 09/28/20 09/28/20 Range/Units 18:22 18:22 18:22 WBC 23.69 H (4.8-10.8) K/uL RBC 3.63 L (4.2-5.4) M/uL Hgb 10.5 L (12.0-16.0) g/dL Hct 30.8 L (37-47) % MCV 84.8 (80-100) fL MCH 28.9 (25-34) pg MCHC 34.1 (32-36) g/dL RDW Std Deviation 48.2 H (36.4-46.3) fL RDW Coeff of Logan 15.3 H (11.5-14.5) % Plt Count 432 H (130-400) K/uL MPV 9.0 (7.4-10.4) fL Immature Gran % (Auto) 0.6 % Neut % (Auto) 82.8 % Lymph % (Auto) 8.3 % Mcnairy % (Auto) 7.8 % Eos % (Auto) 0.4 % Baso % (Auto) 0.1 % Neut # (Auto) 19.62 H (1.4-6.5) K/uL Lymph # (Auto) 1.97 (1.2-3.4) K/uL Mcnairy # (Auto) 1.84 H (0.11-0.59) K/uL Eos # (Auto) 0.09 (0-0.5) K/uL Baso # (Auto) 0.03 (0-0.2) K/uL Immature Gran # (Auto) 0.14 H (0.00-0.02) K/uL Absolute Nucleated RBC 0.06 H (0-0) K/uL Nucleated RBC % (auto) 0.3 % PT 11.9 (9.0-12.0) Seconds INR 1.2 H (0.9-1.1) APTT 28.3 (21.0-31.0) Seconds PTT Ratio 1.1 D-Dimer 2180 H* (0-500) ug/L FEU Sodium 136 (136-145) mmol/L Potassium 3.3 L (3.5-5.1) mmol/L Chloride 96 L (98-107) mmol/L Carbon Dioxide 29 (21-32) mmol/L Anion Gap 11.0 (3-11) BUN 7 (7-18) mg/dl Creatinine 1.03 (0.6-1.2) mg/dl Est Cr Clr Drug Dosing 77.5 ml/min Est GFR ( Amer) 69.4 Est GFR (Non-Af Amer) 59.9 BUN/Creatinine Ratio 6.8 L (10-20) Glucose 188 H (70-99) mg/dl POC Glucose (70-99) mg/dl Lactate (0.4-2.0) mmol/L Calcium 9.8 (8.5-10.1) mg/dl Phosphorus 3.8 (2.5-4.9) mg/dl Magnesium 2.2 (1.8-2.4) mg/dl Total Bilirubin 1.9 H (0.2-1) mg/dl AST 47 H (15-37) U/L ALT 28 (12-78) U/L Alkaline Phosphatase 293 H (45-117) U/L Total Creatine Kinase 106 (26-192) U/L Troponin I < 0.015 (0-0.045) ng/ml NT-Pro-B Natriuret Pep 4232 H (0-900) pg/ml Total Protein 8.4 H (6.4-8.2) gm/dl Albumin 2.4 L (3.4-5.0) gm/dl Globulin 6.0 H (2.5-4.0) gm/dl Albumin/Globulin Ratio 0.4 L (0.9-2) Lipase 45 L (73-393) U/L Procalcitonin (0-0.5) ng/ml Digoxin (0.8-2.0) ng/ml COVID-19 Eval Order SARS-CoV-2 (PCR) (Negative) Influenza Type A (PCR) (Neg) Influenza Type B (PCR) (Neg) RSV (RT-PCR) (Neg) 09/28/20 09/28/20 09/28/20 Range/Units 18:22 18:22 19:53 WBC (4.8-10.8) K/uL RBC (4.2-5.4) M/uL Hgb (12.0-16.0) g/dL Hct (37-47) % MCV (80-100) fL MCH (25-34) pg MCHC (32-36) g/dL RDW Std Deviation (36.4-46.3) fL RDW Coeff of Logan (11.5-14.5) % Plt Count (130-400) K/uL MPV (7.4-10.4) fL Immature Gran % (Auto) % Neut % (Auto) % Lymph % (Auto) % Mcnairy % (Auto) % Eos % (Auto) % Baso % (Auto) % Neut # (Auto) (1.4-6.5) K/uL Lymph # (Auto) (1.2-3.4) K/uL Mcnairy # (Auto) (0.11-0.59) K/uL Eos # (Auto) (0-0.5) K/uL Baso # (Auto) (0-0.2) K/uL Immature Gran # (Auto) (0.00-0.02) K/uL Absolute Nucleated RBC (0-0) K/uL Nucleated RBC % (auto) % PT (9.0-12.0) Seconds INR (0.9-1.1) APTT (21.0-31.0) Seconds PTT Ratio D-Dimer (0-500) ug/L FEU Sodium (136-145) mmol/L Potassium (3.5-5.1) mmol/L Chloride (98-107) mmol/L Carbon Dioxide (21-32) mmol/L Anion Gap (3-11) BUN (7-18) mg/dl Creatinine (0.6-1.2) mg/dl Est Cr Clr Drug Dosing ml/min Est GFR ( Amer) Est GFR (Non-Af Amer) BUN/Creatinine Ratio (10-20) Glucose (70-99) mg/dl POC Glucose (70-99) mg/dl Lactate 3.2 H* (0.4-2.0) mmol/L Calcium (8.5-10.1) mg/dl Phosphorus (2.5-4.9) mg/dl Magnesium (1.8-2.4) mg/dl Total Bilirubin (0.2-1) mg/dl AST (15-37) U/L ALT (12-78) U/L Alkaline Phosphatase (45-117) U/L Total Creatine Kinase (26-192) U/L Troponin I (0-0.045) ng/ml NT-Pro-B Natriuret Pep (0-900) pg/ml Total Protein (6.4-8.2) gm/dl Albumin (3.4-5.0) gm/dl Globulin (2.5-4.0) gm/dl Albumin/Globulin Ratio (0.9-2) Lipase (73-393) U/L Procalcitonin 0.96 H (0-0.5) ng/ml Digoxin 0.5 L (0.8-2.0) ng/ml COVID-19 Eval Order SARS-CoV-2 (PCR) (Negative) Influenza Type A (PCR) (Neg) Influenza Type B (PCR) (Neg) RSV (RT-PCR) (Neg) 09/28/20 09/28/20 09/28/20 Range/Units 20:00 20:00 21:55 WBC (4.8-10.8) K/uL RBC (4.2-5.4) M/uL Hgb (12.0-16.0) g/dL Hct (37-47) % MCV (80-100) fL MCH (25-34) pg MCHC (32-36) g/dL RDW Std Deviation (36.4-46.3) fL RDW Coeff of Logan (11.5-14.5) % Plt Count (130-400) K/uL MPV (7.4-10.4) fL Immature Gran % (Auto) % Neut % (Auto) % Lymph % (Auto) % Mcnairy % (Auto) % Eos % (Auto) % Baso % (Auto) % Neut # (Auto) (1.4-6.5) K/uL Lymph # (Auto) (1.2-3.4) K/uL Mcnairy # (Auto) (0.11-0.59) K/uL Eos # (Auto) (0-0.5) K/uL Baso # (Auto) (0-0.2) K/uL Immature Gran # (Auto) (0.00-0.02) K/uL Absolute Nucleated RBC (0-0) K/uL Nucleated RBC % (auto) % PT (9.0-12.0) Seconds INR (0.9-1.1) APTT (21.0-31.0) Seconds PTT Ratio D-Dimer (0-500) ug/L FEU Sodium (136-145) mmol/L Potassium (3.5-5.1) mmol/L Chloride (98-107) mmol/L Carbon Dioxide (21-32) mmol/L Anion Gap (3-11) BUN (7-18) mg/dl Creatinine (0.6-1.2) mg/dl Est Cr Clr Drug Dosing ml/min Est GFR ( Amer) Est GFR (Non-Af Amer) BUN/Creatinine Ratio (10-20) Glucose (70-99) mg/dl POC Glucose (70-99) mg/dl Lactate 2.5 H* (0.4-2.0) mmol/L Calcium (8.5-10.1) mg/dl Phosphorus (2.5-4.9) mg/dl Magnesium (1.8-2.4) mg/dl Total Bilirubin (0.2-1) mg/dl AST (15-37) U/L ALT (12-78) U/L Alkaline Phosphatase (45-117) U/L Total Creatine Kinase (26-192) U/L Troponin I (0-0.045) ng/ml NT-Pro-B Natriuret Pep (0-900) pg/ml Total Protein (6.4-8.2) gm/dl Albumin (3.4-5.0) gm/dl Globulin (2.5-4.0) gm/dl Albumin/Globulin Ratio (0.9-2) Lipase (73-393) U/L Procalcitonin (0-0.5) ng/ml Digoxin (0.8-2.0) ng/ml COVID-19 Eval Order CovFluRsv at [facility] SARS-CoV-2 (PCR) NEGATIVE (Negative) Influenza Type A (PCR) Negative (Neg) Influenza Type B (PCR) Negative (Neg) RSV (RT-PCR) Negative (Neg) 09/28/20 Range/Units 22:59 WBC (4.8-10.8) K/uL RBC (4.2-5.4) M/uL Hgb (12.0-16.0) g/dL Hct (37-47) % MCV (80-100) fL MCH (25-34) pg MCHC (32-36) g/dL RDW Std Deviation (36.4-46.3) fL RDW Coeff of Logan (11.5-14.5) % Plt Count (130-400) K/uL MPV (7.4-10.4) fL Immature Gran % (Auto) % Neut % (Auto) % Lymph % (Auto) % Mcnairy % (Auto) % Eos % (Auto) % Baso % (Auto) % Neut # (Auto) (1.4-6.5) K/uL Lymph # (Auto) (1.2-3.4) K/uL Mcnairy # (Auto) (0.11-0.59) K/uL Eos # (Auto) (0-0.5) K/uL Baso # (Auto) (0-0.2) K/uL Immature Gran # (Auto) (0.00-0.02) K/uL Absolute Nucleated RBC (0-0) K/uL Nucleated RBC % (auto) % PT (9.0-12.0) Seconds INR (0.9-1.1) APTT (21.0-31.0) Seconds PTT Ratio D-Dimer (0-500) ug/L FEU Sodium (136-145) mmol/L Potassium (3.5-5.1) mmol/L Chloride (98-107) mmol/L Carbon Dioxide (21-32) mmol/L Anion Gap (3-11) BUN (7-18) mg/dl Creatinine (0.6-1.2) mg/dl Est Cr Clr Drug Dosing ml/min Est GFR ( Amer) Est GFR (Non-Af Amer) BUN/Creatinine Ratio (10-20) Glucose (70-99) mg/dl POC Glucose 136 H (70-99) mg/dl Lactate (0.4-2.0) mmol/L Calcium (8.5-10.1) mg/dl Phosphorus (2.5-4.9) mg/dl Magnesium (1.8-2.4) mg/dl Total Bilirubin (0.2-1) mg/dl AST (15-37) U/L ALT (12-78) U/L Alkaline Phosphatase (45-117) U/L Total Creatine Kinase (26-192) U/L Troponin I (0-0.045) ng/ml NT-Pro-B Natriuret Pep (0-900) pg/ml Total Protein (6.4-8.2) gm/dl Albumin (3.4-5.0) gm/dl Globulin (2.5-4.0) gm/dl Albumin/Globulin Ratio (0.9-2) Lipase (73-393) U/L Procalcitonin (0-0.5) ng/ml Digoxin (0.8-2.0) ng/ml COVID-19 Eval Order SARS-CoV-2 (PCR) (Negative) Influenza Type A (PCR) (Neg) Influenza Type B (PCR) (Neg) RSV (RT-PCR) (Neg) Diagnostic Findings CT ANGIOGRAPHY OF THE CHEST, PULMONARY EMBOLUS PROTOCOL CLINICAL HISTORY: Shortness of breath. Evaluate for pulmonary embolus. COMPARISON STUDY: Chest CT June 29, 2019. Chest radiograph performed earlier today. TECHNIQUE: Following IV administration of 119 mL of Optiray, helical axial images of the chest were obtained utilizing the pulmonary embolus protocol. Maximal intensity projections and sagittal and coronal reformats were viewed on an independent 3D workstation. IV contrast was administered without complication. Automated exposure control was utilized for the study. A dose lowering technique was utilized adhering to the principles of ALARA. CT DOSE: 845.66 mGy.cm FINDINGS: A left subclavian biventricular pacer/AICD is in place. No pulmonary emboli are identified although the segmental and subsegmental pulmonary arteries are suboptimally assessed due to respiratory motion. Marked cardiomegaly is noted. Trace pericardial effusion is noted. This is decreased in size when compared to CT of June 29, 2019. No enlarged axillary, mediastinal or hilar lymph nodes are present. There is no pneumomediastinum. Lungs are suboptimally assessed due to respiratory motion. There is no consolidation to suggest pneumonia. Mild subpleural groundglass opacities favor atelectasis. Lingular and right middle lobe opacity reflects atelectasis. No acute fracture or suspicious lesion is identified within visualized portions of the bony thorax. IMPRESSION: 1. No pulmonary emboli identified although segmental and subsegmental pulmonary arteries suboptimally assessed due to respiratory motion. 2. Marked cardiomegaly. 3. No consolidation to suggest pneumonia. ACT 112: Negative or not required by law. Electronically signed by: Gurmeet Zamora M.D. 09/28/2020 7:38 PM Dictated: 09/28/201932Transcribed: 09/28/201932 XR chest 1V portable CLINICAL HISTORY: Chest Pain COMPARISON STUDY: No previous studies for comparison. FINDINGS: A left biventricular pacer/AICD is in place. Marked cardiomegaly is unchanged. No pneumothorax is present. A possible small left pleural effusion is probably artifactual. There is pulmonary vascular congestion without evidence for pulmonary edema. No lobar consolidation is present. IMPRESSION: Cardiomegaly with pulmonary vascular congestion. No overt pulmonary edema. ACT 112: Negative or not required by law. Electronically signed by: Gurmeet Zamora M.D. 09/28/2020 7:17 PM Dictated: 09/28/201914Transcribed: 09/28/201914 Code Status & VTE Plan VTE Prophylaxis Plan VTE Prophylaxis will be ordered: Yes PG Care Time/CCT Total # of Minutes Spent Total Time Spent with Patient: Total time spent is greater than 50% in coordination of care (as documented) at patient's floor/unit and/or counseling patient: Coding Level of Care Code 10855 Initial Inpt Care Lvl 3 Diagnoses Sepsis A41.9 Sepsis acute organ dysfunction status: without acute organ dysfunction Sepsis type: sepsis due to unspecified organism Atrial fibrillation with RVR I48.91 Diabetes type 2, controlled E11.8 Diabetes mellitus terminal computer operator insulin use: without terminal computer operator use Diabetes mellitus complication status: with unspecified complications Fracture of tibia and fibula S82.202A; S82.402A Encounter type: initial encounter Fracture type: closed Laterality: left Anxiety F41.9 COPD (chronic obstructive pulmonary disease) J44.9 Chronic systolic heart failure I50.22 Schizoaffective disorder F25.0 Schizoaffective disorder type: bipolar GERD (gastroesophageal reflux disease) K21.9 Esophagitis presence: esophagitis presence not specified HTN (hypertension) I10 Hypertension type: essential hypertension (1) Sepsis Sepsis acute organ dysfunction status: without acute organ dysfunction Sepsis type: sepsis due to unspecified organism Qualified Code(s): A41.9 - Sepsis, unspecified organism (2) Fracture of tibia and fibula Encounter type: initial encounter Fracture type: closed Laterality: left Qualified Code(s): S82.202A - Unspecified fracture of shaft of left tibia, initial encounter for closed fracture; S82.402A - Unspecified fracture of shaft of left fibula, initial encounter for closed fracture (3) Schizoaffective disorder Schizoaffective disorder type: bipolar Qualified Code(s): F25.0 - Schizoaffective disorder, bipolar type (4) GERD (gastroesophageal reflux disease) Esophagitis presence: esophagitis presence not specified Qualified Code(s): K21.9 - Gastro-esophageal reflux disease without esophagitis (5) HTN (hypertension) Hypertension type: essential hypertension Qualified Code(s): I10 - Essential (primary) hypertension (6) Diabetes type 2, controlled Diabetes mellitus fpc insulin use: without terminal computer operator use Diabetes mellitus complication status: with unspecified complications Qualified Code(s): E11.8 - Type 2 diabetes mellitus with unspecified complications
[2020-09-28] MEDS ORDERED: DEXTROSE 50% 50 ML SYRINGE IV PRN (22:43)
[2020-09-28] MEDS ORDERED: VANCOMYCIN CONSULT ACTIVE PRN (22:43)
[2020-09-28] MEDS ORDERED: CARBOHYDRATES FOR HYPOGLYCEMIA PO PRN (22:43)
[2020-09-28] MEDS ORDERED: ONDANSETRON INJ 2 MG/ML 2 ML VIAL IV PRN (22:43)
[2020-09-28] MEDS ORDERED: GLUCAGON FOR INJ 1 MG VIAL SQ PRN (22:43)
[2020-09-28] MEDS ORDERED: GLUCOSE 10 TABS/TUBE PO PRN (22:43)
[2020-09-28] MEDS ORDERED: GLUCOSE 40% GEL 15 GM TUBE PO PRN (22:43)
[2020-09-28] MEDS ORDERED: VANCOMYCIN HCL 2,500 MG in SODIUM CHLORIDE 0.9% 500 ML IV STA (23:06)
[2020-09-28 23:09] LABS: Creatine Kinase 106 U/L (26-192); Magnesium 2.2 mg/dl (1.8-2.4); Phosphorus 3.8 mg/dl (2.5-4.9)
[2020-09-28] MEDS ORDERED: PNEUMOCOCCAL ADMINISTRATION CHARGE ONE (23:09)
[2020-09-28] MEDS ORDERED: PNEUMOCOCCAL POLYSACCHARIDES 25 MCG/0.5 ML VIAL/SYR IM ONE (23:09)
[2020-09-28] MEDS: CEFEPIME 1,000 MG in SYRINGE 0 ML IV SCH (23:58)
[2020-09-28] MEDS: INSULIN GLARGINE SOLOSTAR 100 UNITS/ML 3 ML PEN SC SCH (23:58)
[2020-09-28] MEDS: LACTATED RINGER'S 1,000 ML IV SCH (23:58)
[2020-09-28] MEDS: INSULIN ASPART 100 UNITS/ML 3 ML PEN SC SCH (23:59)
[2020-09-29] MEDS ORDERED: METOPROLOL TARTRATE 1 MG/ML VIAL IV STA ×2 (02:52→04:39)
[2020-09-29] MEDS ORDERED: hydrOXYzine HCl 25 MG TAB PO STA (03:20)
[2020-09-29] MEDS ORDERED: POTASSIUM CHLORIDE CRTAB 20 MEQ TABCR PO STA (03:30)
[2020-09-29] MEDS ORDERED: LEVALBUTEROL HCL 1.25 MG/3 ML NEB NEB PRN (03:30)
[2020-09-29 04:01] LABS: Appearance Urine Cloudy (Clear); Bacteria Urine Automated Negative (Negative); Blood Urine Negative (Negative); Color Urine Dark Yellow; Epithelial Cell Urine Auto >30 /lpf (0-5); Glucose Urine UA Negative (Negative); Ketones Urine Trace (Negative); Leukocyte Esterase Urine Trace (Negative); Nitrite Urine Negative (Negative); Protein Urine 1+ (Negative); Specific Gravity Urine > 1.045 (1.000-1.030); Urobilinogen Urine Negative (Negative); pH Urine 5.5 (4.5-7.5)
[2020-09-29 04:10] LABS: Bilirubin Urine 1+ (Negative)
[2020-09-29 05:06] LABS: Cast Urine Automated 0 /lpf (0-5); RBC Urine Automated 0-4 /hpf (0-4)
[2020-09-29] MEDS ORDERED: DIGOXIN 250 MCG in SYRINGE 9 ML IV STA (05:31)
[2020-09-29] MEDS: PANTOprazole 40 MG TAB PO SCH (05:41)
[2020-09-29 06:09] LABS: Basophils # (auto) 0.04 K/uL (0-0.2); Basophils % (auto) 0.2 %; Eosinophils # (auto) 0.13 K/uL (0-0.5); Eosinophils % (auto) 0.6 %; Hematocrit (blood only) 31.2 % (37-47); Hemoglobin 10.5 g/dL (12.0-16.0); Immature Granulocytes # (auto) 0.11 K/uL (0.00-0.02); Immature Granulocytes % (auto) 0.5 %; Lymphocytes # (auto) 2.17 K/uL (1.2-3.4); Mean Corpuscular Hemoglobin 28.8 pg (25-34); Mean Corpuscular Hgb Conc 33.7 g/dL (32-36); Mean Corpuscular Volume 85.5 fL (80-100); Mean Platelet Volume 9.4 fL (7.4-10.4); Monocytes # (auto) 1.91 K/uL (0.11-0.59); Monocytes % (auto) 8.8 %; Neutrophils # (auto) 17.41 K/uL (1.4-6.5); Neutrophils % (auto) 79.9 %; Nucleated RBC # (auto) 0.19 K/uL (0-0); Nucleated RBC % (auto) 0.9 %; Platelet Count 476 K/uL (130-400); RDW Coefficient of Variation 15.4 % (11.5-14.5); RDW Standard Deviation 48.2 fL (36.4-46.3); Red Blood Count 3.65 M/uL (4.2-5.4); White Blood Count 21.77 K/uL (4.8-10.8)
[2020-09-29 06:49] LABS: Albumin Level 2.3 gm/dl (3.4-5.0); BUN Creatinine Ratio 9.3 (10-20); Bilirubin Direct 1.1 mg/dl (0-0.2); Calcium 9.5 mg/dl (8.5-10.1); Creatinine Clr Calc Pharmacy 85.6 ml/min; Est GFR (African American) 82.8; Est GFR (Non-African American) 71.4; Potassium 3.5 mmol/L (3.5-5.1)
[2020-09-29 06:59] LABS: Bilirubin,Total 1.8 mg/dl (0.2-1); Thyroid Stimulating Hormone 1.69 uIu/ml (0.300-4.500); Total Protein 8.4 gm/dl (6.4-8.2)
--- NOTE | 2020-09-29 07:48 | Hospitalist Progress Note ---
Date of Service September 29, 2020 Assessment & Plan (1) Sepsis: #Sepsis On admission meeting SIRS criteria, patient tachycardic, tachypneic, leukocytosis with WBC=23.69 with neutrophil predominance and bands, thrombocytosis with bxspuupof=106, suspect acute phase reaction in setting of infection. Elevated lactate of 3.2 which improved slighlty to 2.5 - patient with chronically elevated lactate. Unclear source of infection. CT chest with no PNA. UA and blood cultures pending. She does have slight increase in LFTs with T-bili of 1.9, AP of 293 suggesting possible GI source, however, no abdominal pain on deep palpation. No RUQ pain. Negative Clarke's sign. Additional source of infection could be left ankle - she is 1 month out from her ORIF, hardware in place. No signs or symptoms of skin infection in her left lower extremity, right upper quadrant ultrasound demonstrating hepatic steatosis. Patient endorsing diffuse abdominal tenderness today on exam, obtain CT abdomen pelvis with contrast, negative study with the exception of extensive stool burden. X-ray of her left ankle showing no obvious signs of infection, repeat lactate demonstrated downtrending. -Reviewed patient's chart she has a similar admission in 2018 where she presented with respiratory symptoms elevated white count with subsequently diagnosed with an acute viral pneumonia -Follow cultures -Continue empiric therapy with vancomycin and Cefepime, narrow pending culture resolution and sensitivities -Trend CBC -wbc:23.69->21.77 -Tylenol PRN fever #A. fib with RVR Patient with AF with RVR. HR 140-170 here. Minimally responsive to IVF. Digoxin subtherapeutic at 0.5. Long history of A. fib, difficult to control. -improving continue to monitor on Telemetry monitoring -500 cc bolus LR -Continue Metoprolol succinate 150mg po daily -Continue Digoxin 0.125mg po daily -Repeat digoxin level tomorrow -Continue Xarelto 20mg po daily #Fracture of tibia and fibula Patient with cast in place. She follows with Ortho -Tramadol 50mg po q6 hours PRN -Consulted orthopedics, appreciate recs #Anxiety Chronic. Patient follows at [facility] -Continue Hydroxyzine 50mg po qHS #COPD Patient with no cough or wheeze. Seems to be compensated -Continue Umeclidinium/Vilanterol -Xopenex neb PRN #CHF Patient appears to be well compensated, not overtly volume overloaded -Continue metoprolol -Continue Entresto BID -Cautious use of fluids in presumed sepsis with close monitoring of volume status -Holding Lasix PO for now #Gerd Chronic -Continue Protonix 40mg po daily #Diabetes type 2 Controlled. Last Hgb A1C = 6.5 on 08/12/20 -Hold Metformin while hospitalized -Lantus 5u BID -ISS -Goal blood sugar 100 - 140 -Continue Lyrica 100mg po BID for neuropathy #Hypertension Blood pressure stable -Continue Metoprolol -Continue Entresto -Monitor FENa:LR at 125mL/hr x 2 liters, K repletion, Mg and PO4 within normal limits, CC/AHA diet as tolerated Code Status: Full DVT PPX: Rivaroxaban 20 mg p.o. daily PT/OT: When medically stable Dispo: PCU Fabiano Sanchez MD PGY 2, FCM This chart was completed utilizing [employer] voice recognition software. Grammatical errors, random word insertions, pronoun errors, and in complete sentences are an occasional consequence of the system. Any questions or concerns about the content, text, or information contained within the body of this dictation should be addressed directly to the physician for clarification. (2) Atrial fibrillation with RVR: (3) Diabetes type 2, controlled: (4) Fracture of tibia and fibula: (5) Anxiety: (6) COPD (chronic obstructive pulmonary disease): (7) Chronic systolic heart failure: (8) Schizoaffective disorder: (9) GERD (gastroesophageal reflux disease): (10) HTN (hypertension): Admission and Anticipated Discharge Date Admission Date: September 28, 2020 Supervising Physician Co-Signing Physician Notes I personally examined the patient and verified all eugene points of history and exam, discussed case, and agree with decision making with Dr Sanchez. Sleeping soundly whenever we entered the room, wakes up, takes a few minutes to really regain awareness. Notes that her left ankle hurts, otherwise no focal symptoms. No chest pain/shortness of breath no abdominal pain. No dysuria or other urinary symptoms. No skin changes. Asks that we discussed with her sisterupdated sister at the bedside over phone. Vitals noted, in general she is awake and alert pleasant no distress. HEENT normocephalic atraumatic mucous membranes moist. Lungs are clear to auscultation bilaterally no rales rhonchi or wheezes good effort. Cardio is tachycardic. Abdomen is soft nondistended nontender no masses organomegaly. Extremities show no cyanosis clubbing or edema, left ankle is in a cast. There is no tracking erythema, no adenopathy noted. Sepsisunclear source, seems to be improvingcontinue empiric antibiotics, serial exams. While I doubt her ankle is the culprit, given no other source and I am unable to visualize the ankle due to the cast, will ask orthopedics opinion on whether or not a septic joint could be possible, although again this seems unlikely. A. fib/RVRrate control improving Chronic hypoxic respiratory failurearound her baseline oxygen requirement Reyes velasquezisac notes a sleep study a year ago and recalls she did not need CPAP then, may be worth repeating given how slow she was to wake at the bedside. Continue to follow. Subjective Patient sitting up in bed this afternoon in no acute distress. Patient is a poor historian, while visiting the patient in the afternoon was able to obtain some collateral information from her sister. Overall patient is in no acute distress, tolerating her diet, has not had a bowel movement in 2 days, voiding on her own. Acute concerns related to elevation of white count and concern for infection, all questions were answered Physical Exam Physical Exam: General: No acute distress HEENT: Normocephalic atraumatic Neck: Normal to visual inspection Cardiac: Regular rate and rhythm I did not appreciate significant murmurs rubs or gallops, normal S1, normal S2, 1+ pedal edema Respiratory: Clear to auscultation bilaterally with symmetrical chest expansion I did not appreciate any significant wheezes, rales, rhonchi GI: Tender to palpation in all 4 quadrants, hyperactive bowel sounds, distended MSK: Moves all extremities, left lower extremity and calf Skin: No overt signs of infection Neuro: Alert and oriented x4 Psych: Tearful at times, very anxious Results & Data Results & Data ([facility]) Vital Signs (Past 12 Hours) Vital Signs Temp Pulse Pulse Resp BP BP Pulse Ox 09/29/20 05:41 142 H 09/29/20 04:53 163 H 09/29/20 03:37 37.0 C 149 H 18 147/83 H 96 09/29/20 03:30 158 H 123/78 09/29/20 03:08 172 H 09/29/20 00:01 150 H 09/28/20 22:35 37 C 143 H 24 117/74 97 09/28/20 22:00 141 H 32 H 123/84 97 09/28/20 21:30 138 H 24 121/74 95 09/28/20 21:00 155 H 24 110/88 09/28/20 20:40 22 97 09/28/20 20:32 146 H 24 107/69 09/28/20 20:08 123/86 09/28/20 20:01 140 H 44 H 98 09/28/20 20:00 155 H 35 H 123/86 97 Laboratory Results 09/29/20 09/29/20 09/29/20 Range/Units 11:24 11:24 10:40 WBC (4.8-10.8) K/uL RBC (4.2-5.4) M/uL Hgb (12.0-16.0) g/dL Hct (37-47) % MCV (80-100) fL MCH (25-34) pg MCHC (32-36) g/dL RDW Std Deviation (36.4-46.3) fL RDW Coeff of Logan (11.5-14.5) % Plt Count (130-400) K/uL MPV (7.4-10.4) fL Immature Gran % (Auto) % Neut % (Auto) % Lymph % (Auto) % [place] % (Auto) % Eos % (Auto) % Baso % (Auto) % Neut # (Auto) (1.4-6.5) K/uL Lymph # (Auto) (1.2-3.4) K/uL [place] # (Auto) (0.11-0.59) K/uL Eos # (Auto) (0-0.5) K/uL Baso # (Auto) (0-0.2) K/uL Immature Gran # (Auto) (0.00-0.02) K/uL Absolute Nucleated RBC (0-0) K/uL Nucleated RBC % (auto) % PT (9.0-12.0) Seconds INR (0.9-1.1) APTT (21.0-31.0) Seconds PTT Ratio D-Dimer (0-500) ug/L FEU Sodium (136-145) mmol/L Potassium (3.5-5.1) mmol/L Chloride (98-107) mmol/L Carbon Dioxide (21-32) mmol/L Anion Gap (3-11) BUN (7-18) mg/dl Creatinine (0.6-1.2) mg/dl Est Cr Clr Drug Dosing ml/min Est GFR ( Amer) Est GFR (Non-Af Amer) BUN/Creatinine Ratio (10-20) Glucose (70-99) mg/dl POC Glucose 134 H (70-99) mg/dl Lactate 1.8 (0.4-2.0) mmol/L Calcium (8.5-10.1) mg/dl Phosphorus (2.5-4.9) mg/dl Magnesium (1.8-2.4) mg/dl Total Bilirubin (0.2-1) mg/dl Direct Bilirubin (0-0.2) mg/dl AST (15-37) U/L ALT (12-78) U/L Alkaline Phosphatase (45-117) U/L Ammonia 40.0 H (11-32) umol/L Total Creatine Kinase (26-192) U/L Troponin I (0-0.045) ng/ml NT-Pro-B Natriuret Pep (0-900) pg/ml Total Protein (6.4-8.2) gm/dl Albumin (3.4-5.0) gm/dl Globulin (2.5-4.0) gm/dl Albumin/Globulin Ratio (0.9-2) Lipase (73-393) U/L Procalcitonin (0-0.5) ng/ml TSH (0.300-4.500) uIu/ml Urine Color Urine Appearance (Clear) Urine pH (4.5-7.5) Ur Specific [place] (1.000-1.030) Urine Protein (Negative) Urine Glucose (UA) (Negative) Urine Ketones (Negative) Urine Blood (Negative) Urine Nitrite (Negative) Urine Bilirubin (Negative) Urine Urobilinogen (Negative) Ur Leukocyte Esterase (Negative) Urine WBC (Auto) (0-5) /hpf Urine RBC (Auto) (0-4) /hpf U Hyaline Cast (Auto) (0-5) /lpf U Epithel Cells (Auto) (0-5) /lpf Urine Bacteria (Auto) (Negative) Urine Yeast Nasal Screen MRSA (PCR) (Negative) Digoxin (0.8-2.0) ng/ml COVID-19 Eval Order SARS-CoV-2 (PCR) (Negative) Influenza Type A (PCR) (Neg) Influenza Type B (PCR) (Neg) RSV (RT-PCR) (Neg) 09/29/20 09/29/20 09/29/20 Range/Units 07:12 05:27 05:27 WBC 21.77 H (4.8-10.8) K/uL RBC 3.65 L (4.2-5.4) M/uL Hgb 10.5 L (12.0-16.0) g/dL Hct 31.2 L (37-47) % MCV 85.5 (80-100) fL MCH 28.8 (25-34) pg MCHC 33.7 (32-36) g/dL RDW Std Deviation 48.2 H (36.4-46.3) fL RDW Coeff of Logan 15.4 H (11.5-14.5) % Plt Count 476 H (130-400) K/uL MPV 9.4 (7.4-10.4) fL Immature Gran % (Auto) 0.5 % Neut % (Auto) 79.9 % Lymph % (Auto) 10.0 % [place] % (Auto) 8.8 % Eos % (Auto) 0.6 % Baso % (Auto) 0.2 % Neut # (Auto) 17.41 H (1.4-6.5) K/uL Lymph # (Auto) 2.17 (1.2-3.4) K/uL [place] # (Auto) 1.91 H (0.11-0.59) K/uL Eos # (Auto) 0.13 (0-0.5) K/uL Baso # (Auto) 0.04 (0-0.2) K/uL Immature Gran # (Auto) 0.11 H (0.00-0.02) K/uL Absolute Nucleated RBC 0.19 H (0-0) K/uL Nucleated RBC % (auto) 0.9 % PT (9.0-12.0) Seconds INR (0.9-1.1) APTT (21.0-31.0) Seconds PTT Ratio D-Dimer (0-500) ug/L FEU Sodium 136 (136-145) mmol/L Potassium 3.5 (3.5-5.1) mmol/L Chloride 99 (98-107) mmol/L Carbon Dioxide 31 (21-32) mmol/L Anion Gap 6.0 (3-11) BUN 8 (7-18) mg/dl Creatinine 0.89 (0.6-1.2) mg/dl Est Cr Clr Drug Dosing 85.6 ml/min Est GFR ( Amer) 82.8 Est GFR (Non-Af Amer) 71.4 BUN/Creatinine Ratio 9.3 L (10-20) Glucose 140 H (70-99) mg/dl POC Glucose 130 H (70-99) mg/dl Lactate (0.4-2.0) mmol/L Calcium 9.5 (8.5-10.1) mg/dl Phosphorus (2.5-4.9) mg/dl Magnesium (1.8-2.4) mg/dl Total Bilirubin 1.8 H (0.2-1) mg/dl Direct Bilirubin 1.1 H (0-0.2) mg/dl AST 39 H (15-37) U/L ALT 31 (12-78) U/L Alkaline Phosphatase 292 H (45-117) U/L Ammonia (11-32) umol/L Total Creatine Kinase (26-192) U/L Troponin I (0-0.045) ng/ml NT-Pro-B Natriuret Pep (0-900) pg/ml Total Protein 8.4 H (6.4-8.2) gm/dl Albumin 2.3 L (3.4-5.0) gm/dl Globulin (2.5-4.0) gm/dl Albumin/Globulin Ratio (0.9-2) Lipase (73-393) U/L Procalcitonin (0-0.5) ng/ml TSH 1.690 (0.300-4.500) uIu/ml Urine Color Urine Appearance (Clear) Urine pH (4.5-7.5) Ur Specific [place] (1.000-1.030) Urine Protein (Negative) Urine Glucose (UA) (Negative) Urine Ketones (Negative) Urine Blood (Negative) Urine Nitrite (Negative) Urine Bilirubin (Negative) Urine Urobilinogen (Negative) Ur Leukocyte Esterase (Negative) Urine WBC (Auto) (0-5) /hpf Urine RBC (Auto) (0-4) /hpf U Hyaline Cast (Auto) (0-5) /lpf U Epithel Cells (Auto) (0-5) /lpf Urine Bacteria (Auto) (Negative) Urine Yeast Nasal Screen MRSA (PCR) (Negative) Digoxin (0.8-2.0) ng/ml COVID-19 Eval Order SARS-CoV-2 (PCR) (Negative) Influenza Type A (PCR) (Neg) Influenza Type B (PCR) (Neg) RSV (RT-PCR) (Neg) 09/29/20 09/29/20 09/28/20 Range/Units 03:25 03:25 22:59 WBC (4.8-10.8) K/uL RBC (4.2-5.4) M/uL Hgb (12.0-16.0) g/dL Hct (37-47) % MCV (80-100) fL MCH (25-34) pg MCHC (32-36) g/dL RDW Std Deviation (36.4-46.3) fL RDW Coeff of Logan (11.5-14.5) % Plt Count (130-400) K/uL MPV (7.4-10.4) fL Immature Gran % (Auto) % Neut % (Auto) % Lymph % (Auto) % [place] % (Auto) % Eos % (Auto) % Baso % (Auto) % Neut # (Auto) (1.4-6.5) K/uL Lymph # (Auto) (1.2-3.4) K/uL [place] # (Auto) (0.11-0.59) K/uL Eos # (Auto) (0-0.5) K/uL Baso # (Auto) (0-0.2) K/uL Immature Gran # (Auto) (0.00-0.02) K/uL Absolute Nucleated RBC (0-0) K/uL Nucleated RBC % (auto) % PT (9.0-12.0) Seconds INR (0.9-1.1) APTT (21.0-31.0) Seconds PTT Ratio D-Dimer (0-500) ug/L FEU Sodium (136-145) mmol/L Potassium (3.5-5.1) mmol/L Chloride (98-107) mmol/L Carbon Dioxide (21-32) mmol/L Anion Gap (3-11) BUN (7-18) mg/dl Creatinine (0.6-1.2) mg/dl Est Cr Clr Drug Dosing ml/min Est GFR ( Amer) Est GFR (Non-Af Amer) BUN/Creatinine Ratio (10-20) Glucose (70-99) mg/dl POC Glucose 136 H (70-99) mg/dl Lactate (0.4-2.0) mmol/L Calcium (8.5-10.1) mg/dl Phosphorus (2.5-4.9) mg/dl Magnesium (1.8-2.4) mg/dl Total Bilirubin (0.2-1) mg/dl Direct Bilirubin (0-0.2) mg/dl AST (15-37) U/L ALT (12-78) U/L Alkaline Phosphatase (45-117) U/L Ammonia (11-32) umol/L Total Creatine Kinase (26-192) U/L Troponin I (0-0.045) ng/ml NT-Pro-B Natriuret Pep (0-900) pg/ml Total Protein (6.4-8.2) gm/dl Albumin (3.4-5.0) gm/dl Globulin (2.5-4.0) gm/dl Albumin/Globulin Ratio (0.9-2) Lipase (73-393) U/L Procalcitonin (0-0.5) ng/ml TSH (0.300-4.500) uIu/ml Urine Color Dark Yellow Urine Appearance Cloudy A (Clear) Urine pH 5.5 (4.5-7.5) Ur Specific [place] > 1.045 H (1.000-1.030) Urine Protein 1+ H (Negative) Urine Glucose (UA) Negative (Negative) Urine Ketones Trace H (Negative) Urine Blood Negative (Negative) Urine Nitrite Negative (Negative) Urine Bilirubin 1+ H (Negative) Urine Urobilinogen Negative (Negative) Ur Leukocyte Esterase Trace H (Negative) Urine WBC (Auto) 1-5 (0-5) /hpf Urine RBC (Auto) 0-4 (0-4) /hpf U Hyaline Cast (Auto) 0 (0-5) /lpf U Epithel Cells (Auto) >30 H (0-5) /lpf Urine Bacteria (Auto) Negative (Negative) Urine Yeast Not Reportable Nasal Screen MRSA (PCR) Negative (Negative) Digoxin (0.8-2.0) ng/ml COVID-19 Eval Order SARS-CoV-2 (PCR) (Negative) Influenza Type A (PCR) (Neg) Influenza Type B (PCR) (Neg) RSV (RT-PCR) (Neg) 09/28/20 09/28/20 09/28/20 Range/Units 21:55 20:00 20:00 WBC (4.8-10.8) K/uL RBC (4.2-5.4) M/uL Hgb (12.0-16.0) g/dL Hct (37-47) % MCV (80-100) fL MCH (25-34) pg MCHC (32-36) g/dL RDW Std Deviation (36.4-46.3) fL RDW Coeff of Logan (11.5-14.5) % Plt Count (130-400) K/uL MPV (7.4-10.4) fL Immature Gran % (Auto) % Neut % (Auto) % Lymph % (Auto) % [place] % (Auto) % Eos % (Auto) % Baso % (Auto) % Neut # (Auto) (1.4-6.5) K/uL Lymph # (Auto) (1.2-3.4) K/uL [place] # (Auto) (0.11-0.59) K/uL Eos # (Auto) (0-0.5) K/uL Baso # (Auto) (0-0.2) K/uL Immature Gran # (Auto) (0.00-0.02) K/uL Absolute Nucleated RBC (0-0) K/uL Nucleated RBC % (auto) % PT (9.0-12.0) Seconds INR (0.9-1.1) APTT (21.0-31.0) Seconds PTT Ratio D-Dimer (0-500) ug/L FEU Sodium (136-145) mmol/L Potassium (3.5-5.1) mmol/L Chloride (98-107) mmol/L Carbon Dioxide (21-32) mmol/L Anion Gap (3-11) BUN (7-18) mg/dl Creatinine (0.6-1.2) mg/dl Est Cr Clr Drug Dosing ml/min Est GFR ( Amer) Est GFR (Non-Af Amer) BUN/Creatinine Ratio (10-20) Glucose (70-99) mg/dl POC Glucose (70-99) mg/dl Lactate 2.5 H* (0.4-2.0) mmol/L Calcium (8.5-10.1) mg/dl Phosphorus (2.5-4.9) mg/dl Magnesium (1.8-2.4) mg/dl Total Bilirubin (0.2-1) mg/dl Direct Bilirubin (0-0.2) mg/dl AST (15-37) U/L ALT (12-78) U/L Alkaline Phosphatase (45-117) U/L Ammonia (11-32) umol/L Total Creatine Kinase (26-192) U/L Troponin I (0-0.045) ng/ml NT-Pro-B Natriuret Pep (0-900) pg/ml Total Protein (6.4-8.2) gm/dl Albumin (3.4-5.0) gm/dl Globulin (2.5-4.0) gm/dl Albumin/Globulin Ratio (0.9-2) Lipase (73-393) U/L Procalcitonin (0-0.5) ng/ml TSH (0.300-4.500) uIu/ml Urine Color Urine Appearance (Clear) Urine pH (4.5-7.5) Ur Specific [place] (1.000-1.030) Urine Protein (Negative) Urine Glucose (UA) (Negative) Urine Ketones (Negative) Urine Blood (Negative) Urine Nitrite (Negative) Urine Bilirubin (Negative) Urine Urobilinogen (Negative) Ur Leukocyte Esterase (Negative) Urine WBC (Auto) (0-5) /hpf Urine RBC (Auto) (0-4) /hpf U Hyaline Cast (Auto) (0-5) /lpf U Epithel Cells (Auto) (0-5) /lpf Urine Bacteria (Auto) (Negative) Urine Yeast Nasal Screen MRSA (PCR) (Negative) Digoxin (0.8-2.0) ng/ml COVID-19 Eval Order CovFluRsv at [facility] SARS-CoV-2 (PCR) NEGATIVE (Negative) Influenza Type A (PCR) Negative (Neg) Influenza Type B (PCR) Negative (Neg) RSV (RT-PCR) Negative (Neg) 09/28/20 09/28/20 09/28/20 Range/Units 19:53 18:22 18:22 WBC (4.8-10.8) K/uL RBC (4.2-5.4) M/uL Hgb (12.0-16.0) g/dL Hct (37-47) % MCV (80-100) fL MCH (25-34) pg MCHC (32-36) g/dL RDW Std Deviation (36.4-46.3) fL RDW Coeff of Logan (11.5-14.5) % Plt Count (130-400) K/uL MPV (7.4-10.4) fL Immature Gran % (Auto) % Neut % (Auto) % Lymph % (Auto) % [place] % (Auto) % Eos % (Auto) % Baso % (Auto) % Neut # (Auto) (1.4-6.5) K/uL Lymph # (Auto) (1.2-3.4) K/uL [place] # (Auto) (0.11-0.59) K/uL Eos # (Auto) (0-0.5) K/uL Baso # (Auto) (0-0.2) K/uL Immature Gran # (Auto) (0.00-0.02) K/uL Absolute Nucleated RBC (0-0) K/uL Nucleated RBC % (auto) % PT (9.0-12.0) Seconds INR (0.9-1.1) APTT (21.0-31.0) Seconds PTT Ratio D-Dimer (0-500) ug/L FEU Sodium (136-145) mmol/L Potassium (3.5-5.1) mmol/L Chloride (98-107) mmol/L Carbon Dioxide (21-32) mmol/L Anion Gap (3-11) BUN (7-18) mg/dl Creatinine (0.6-1.2) mg/dl Est Cr Clr Drug Dosing ml/min Est GFR ( Amer) Est GFR (Non-Af Amer) BUN/Creatinine Ratio (10-20) Glucose (70-99) mg/dl POC Glucose (70-99) mg/dl Lactate 3.2 H* (0.4-2.0) mmol/L Calcium (8.5-10.1) mg/dl Phosphorus (2.5-4.9) mg/dl Magnesium (1.8-2.4) mg/dl Total Bilirubin (0.2-1) mg/dl Direct Bilirubin (0-0.2) mg/dl AST (15-37) U/L ALT (12-78) U/L Alkaline Phosphatase (45-117) U/L Ammonia (11-32) umol/L Total Creatine Kinase (26-192) U/L Troponin I (0-0.045) ng/ml NT-Pro-B Natriuret Pep (0-900) pg/ml Total Protein (6.4-8.2) gm/dl Albumin (3.4-5.0) gm/dl Globulin (2.5-4.0) gm/dl Albumin/Globulin Ratio (0.9-2) Lipase (73-393) U/L Procalcitonin 0.96 H (0-0.5) ng/ml TSH (0.300-4.500) uIu/ml Urine Color Urine Appearance (Clear) Urine pH (4.5-7.5) Ur Specific [place] (1.000-1.030) Urine Protein (Negative) Urine Glucose (UA) (Negative) Urine Ketones (Negative) Urine Blood (Negative) Urine Nitrite (Negative) Urine Bilirubin (Negative) Urine Urobilinogen (Negative) Ur Leukocyte Esterase (Negative) Urine WBC (Auto) (0-5) /hpf Urine RBC (Auto) (0-4) /hpf U Hyaline Cast (Auto) (0-5) /lpf U Epithel Cells (Auto) (0-5) /lpf Urine Bacteria (Auto) (Negative) Urine Yeast Nasal Screen MRSA (PCR) (Negative) Digoxin 0.5 L (0.8-2.0) ng/ml COVID-19 Eval Order SARS-CoV-2 (PCR) (Negative) Influenza Type A (PCR) (Neg) Influenza Type B (PCR) (Neg) RSV (RT-PCR) (Neg) 09/28/20 09/28/20 09/28/20 Range/Units 18:22 18:22 18:22 WBC 23.69 H (4.8-10.8) K/uL RBC 3.63 L (4.2-5.4) M/uL Hgb 10.5 L (12.0-16.0) g/dL Hct 30.8 L (37-47) % MCV 84.8 (80-100) fL MCH 28.9 (25-34) pg MCHC 34.1 (32-36) g/dL RDW Std Deviation 48.2 H (36.4-46.3) fL RDW Coeff of [place] 15.3 H (11.5-14.5) % Plt Count 432 H (130-400) K/uL MPV 9.0 (7.4-10.4) fL Immature Gran % (Auto) 0.6 % Neut % (Auto) 82.8 % Lymph % (Auto) 8.3 % [place] % (Auto) 7.8 % Eos % (Auto) 0.4 % Baso % (Auto) 0.1 % Neut # (Auto) 19.62 H (1.4-6.5) K/uL Lymph # (Auto) 1.97 (1.2-3.4) K/uL [place] # (Auto) 1.84 H (0.11-0.59) K/uL Eos # (Auto) 0.09 (0-0.5) K/uL Baso # (Auto) 0.03 (0-0.2) K/uL Immature Gran # (Auto) 0.14 H (0.00-0.02) K/uL Absolute Nucleated RBC 0.06 H (0-0) K/uL Nucleated RBC % (auto) 0.3 % PT 11.9 (9.0-12.0) Seconds INR 1.2 H (0.9-1.1) APTT 28.3 (21.0-31.0) Seconds PTT Ratio 1.1 D-Dimer 2180 H* (0-500) ug/L FEU Sodium 136 (136-145) mmol/L Potassium 3.3 L (3.5-5.1) mmol/L Chloride 96 L (98-107) mmol/L Carbon Dioxide 29 (21-32) mmol/L Anion Gap 11.0 (3-11) BUN 7 (7-18) mg/dl Creatinine 1.03 (0.6-1.2) mg/dl Est Cr Clr Drug Dosing 77.5 ml/min Est GFR ( Amer) 69.4 Est GFR (Non-Af Amer) 59.9 BUN/Creatinine Ratio 6.8 L (10-20) Glucose 188 H (70-99) mg/dl POC Glucose (70-99) mg/dl Lactate (0.4-2.0) mmol/L Calcium 9.8 (8.5-10.1) mg/dl Phosphorus 3.8 (2.5-4.9) mg/dl Magnesium 2.2 (1.8-2.4) mg/dl Total Bilirubin 1.9 H (0.2-1) mg/dl Direct Bilirubin (0-0.2) mg/dl AST 47 H (15-37) U/L ALT 28 (12-78) U/L Alkaline Phosphatase 293 H (45-117) U/L Ammonia (11-32) umol/L Total Creatine Kinase 106 (26-192) U/L Troponin I < 0.015 (0-0.045) ng/ml NT-Pro-B Natriuret Pep 4232 H (0-900) pg/ml Total Protein 8.4 H (6.4-8.2) gm/dl Albumin 2.4 L (3.4-5.0) gm/dl Globulin 6.0 H (2.5-4.0) gm/dl Albumin/Globulin Ratio 0.4 L (0.9-2) Lipase 45 L (73-393) U/L Procalcitonin (0-0.5) ng/ml TSH (0.300-4.500) uIu/ml Urine Color Urine Appearance (Clear) Urine pH (4.5-7.5) Ur Specific [place] (1.000-1.030) Urine Protein (Negative) Urine Glucose (UA) (Negative) Urine Ketones (Negative) Urine Blood (Negative) Urine Nitrite (Negative) Urine Bilirubin (Negative) Urine Urobilinogen (Negative) Ur Leukocyte Esterase (Negative) Urine WBC (Auto) (0-5) /hpf Urine RBC (Auto) (0-4) /hpf U Hyaline Cast (Auto) (0-5) /lpf U Epithel Cells (Auto) (0-5) /lpf Urine Bacteria (Auto) (Negative) Urine Yeast Nasal Screen MRSA (PCR) (Negative) Digoxin (0.8-2.0) ng/ml COVID-19 Eval Order SARS-CoV-2 (PCR) (Negative) Influenza Type A (PCR) (Neg) Influenza Type B (PCR) (Neg) RSV (RT-PCR) (Neg) Medications Administered Current Inpatient Medications Acetaminophen (Acetaminophen 325 Mg Tab) 650 mg PO Q4H PRN PRN Reason: Pain or Fever Stop: 10/28/20 22:42 Last Admin: 09/29/20 11:10 Dose: 650 mg Documented by: Atorvastatin Calcium (Atorvastatin 10 Mg Tab) 10 mg PO QAM [facility] Stop: 10/29/20 08:59 Last Admin: 09/29/20 08:06 Dose: 10 mg Documented by: Dextrose (Dextrose 50% 50 Ml Syringe) 25 - 50 ml IV UD PRN; Protocol PRN Reason: Hypoglycemia Protocol Stop: 10/28/20 22:42 Digoxin (Digoxin 0.125 Mg Tab) 0.125 mg PO DAILY@1600 [facility] Stop: 10/29/20 15:59 Docusate Sodium (Docusate Sodium 100 Mg Cap) 100 mg PO BID [facility] Stop: 10/29/20 08:59 Last Admin: 09/29/20 08:07 Dose: 100 mg Documented by: Glucagon (Glucagon For Inj 1 Mg Vial) 1 mg SQ UD PRN; Protocol PRN Reason: Hypoglycemia Protocol Stop: 10/28/20 22:42 Glucose (Glucose 10 Tabs/Tube) 4 - 8 tabs PO UD PRN; Protocol PRN Reason: Hypoglycemia Protocol Stop: 10/28/20 22:42 Glucose (Glucose 40% Gel 15 Gm Tube) 15 - 30 gm PO UD PRN; Protocol PRN Reason: Hypoglycemia Protocol Stop: 10/28/20 22:42 Hydroxyzine HCl (Hydroxyzine Hcl 25 Mg Tab) 50 mg PO HS [facility] Stop: 10/29/20 20:59 Cefepime HCl 1,000 mg/ Syringe 11.3 mls @ 5.5 mls/min IV Q8H VICTOR M; Protocol Stop: 10/01/20 00:00 Last Admin: 09/29/20 08:14 Dose: 5.5 mls/min Documented by: Vancomycin HCl 1,500 mg/ (Sodium Chloride) 530 mls @ 200 mls/hr IV Q12H [facility] Stop: 10/01/20 09:59 Last Infusion: 09/29/20 13:05 Dose: Infused Documented by: Insulin Aspart (Insulin Aspart 100 Units/Ml 3 Ml Pen) 0 units SC ACHS [facility] Stop: 10/28/20 23:14 Last Admin: 09/29/20 12:07 Dose: Not Given Documented by: Insulin Glargine (Insulin Glargine Solostar 100 Units/Ml 3 Ml Pen) 5 units SC BID [facility] Stop: 10/28/20 23:14 Last Admin: 09/29/20 08:16 Dose: 5 units Documented by: Levalbuterol HCl (Levalbuterol Hcl 1.25 Mg/3 Ml Neb) 1.25 mg NEB Q4H PRN PRN Reason: Shortness Of Breath Stop: 10/29/20 03:29 Metoprolol Succinate (Metoprolol Succ 50mg Ext Rel Tab) 150 mg PO QAM [facility] Stop: 10/29/20 08:59 Last Admin: 09/29/20 08:06 Dose: Not Given Documented by: Miscellaneous (Carbohydrates For Hypoglycemia ) 15 - 30 gm PO UD PRN PRN Reason: Hypoglycemia Protocol Stop: 10/28/20 22:42 Miscellaneous Information (Vancomycin Consult Active) 1 ea N/A UD PRN PRN Reason: Consult Stop: 10/28/20 22:42 Ondansetron HCl (Ondansetron Inj 2 Mg/Ml 2 Ml Vial) 4 mg IV Q6H PRN PRN Reason: Nausea Stop: 10/28/20 22:42 Pantoprazole Sodium (Pantoprazole 40 Mg Tab) 40 mg PO DAILYBB [facility] Stop: 10/29/20 06:29 Last Admin: 09/29/20 05:41 Dose: 40 mg Documented by: Polyethylene Glycol (Polyethylene (Miralax) 17 Gm Pack) 17 gm PO BID [facility] Stop: 10/29/20 20:59 Pregabalin (Pregabalin 100 Mg Cap) 100 mg PO BID [facility] Stop: 10/29/20 08:59 Last Admin: 09/29/20 08:14 Dose: 100 mg Documented by: Quetiapine Fumarate (Quetiapine Fumarate 200 Mg Tab) 400 mg PO HS [facility] Stop: 10/29/20 20:59 Quetiapine Fumarate (Quetiapine Fumarate 100 Mg Tablet) 100 mg PO QAM [facility] Stop: 10/29/20 08:59 Last Admin: 09/29/20 08:11 Dose: 100 mg Documented by: Rivaroxaban (Rivaroxaban 20 Mg Tab) 20 mg PO QDD [facility] Stop: 10/29/20 16:29 Sacubitril/Valsartan (Sacubitril-Valsartan 24-26 Mg Tab) 1 tab PO BID [facility] Stop: 10/29/20 08:59 Last Admin: 09/29/20 08:07 Dose: 1 tab Documented by: Thiamine HCl (Thiamine Hcl 100 Mg Tab) 200 mg PO DAILY [facility] Stop: 10/29/20 08:59 Last Admin: 09/29/20 08:05 Dose: 200 mg Documented by: Tramadol HCl (Tramadol Hcl 50 Mg Tablet) 50 mg PO Q6 PRN PRN Reason: pain Stop: 10/29/20 02:49 Trazodone HCl (Trazodone Hcl 100 Mg Tab) 200 mg PO HS [facility] Stop: 10/29/20 20:59 Umeclidinium/Vilanterol (Umeclidinium/Vilanterol 62.5/25mcg 7 Puffs/Inhaler) 1 puffs INH DAILY [facility] Stop: 10/29/20 08:59 Last Admin: 09/29/20 08:04 Dose: 1 puffs Documented by: Resident Activity Tracking Resident Involvement: Resident Care Provided Care Provided: Adult Hospital Medicine (1) Fracture of tibia and fibula Encounter type: initial encounter Fracture type: closed Laterality: left Qualified Code(s): S82.202A - Unspecified fracture of shaft of left tibia, initial encounter for closed fracture; S82.402A - Unspecified fracture of shaft of left fibula, initial encounter for closed fracture (2) Schizoaffective disorder Schizoaffective disorder type: bipolar Qualified Code(s): F25.0 - Schizoaffective disorder, bipolar type (3) Diabetes type 2, controlled Diabetes mellitus complication status: with unspecified complications Diabetes mellitus snf insulin use: without long wall shear operator use Qualified Code(s): E11.8 - Type 2 diabetes mellitus with unspecified complications (4) Sepsis Sepsis acute organ dysfunction status: without acute organ dysfunction Sepsis type: sepsis due to unspecified organism Qualified Code(s): A41.9 - Sepsis, unspecified organism (5) GERD (gastroesophageal reflux disease) Esophagitis presence: esophagitis presence not specified Qualified Code(s): K21.9 - Gastro-esophageal reflux disease without esophagitis (6) HTN (hypertension) Hypertension type: essential hypertension Qualified Code(s): I10 - Essential (primary) hypertension
--- NOTE | 2020-09-29 07:59 | Ultrasound Report ---
US liver CLINICAL HISTORY: Abnormal LFTs, sepsis COMPARISON STUDY: CT of the abdomen and pelvis January 11, 2020. FINDINGS: The liver is echogenic. There is slight coarsening of hepatic echotexture. No hepatic lesio ns are identified. There is no biliary ductal dilatation. The common bile duct measures 3 mm in calib er. The pancreatic body is normal. Head and tail are obscured. There is no right hydronephrosis. The gallbladder is contracted. No gallstones are identified. Mild gallbladder wall thickening is likely d ue to gallbladder contraction. IMPRESSION: 1. No gallstones or biliary ductal dilatation. Contracted gallbladder. 2. Hepatic steatosis. Mild hepatomegaly. ACT 112: Negative or not required by law. Electronically signed by: Gurmeet Zamora M.D. 09/29/2020 7:57 AM
[2020-09-29] MEDS: UMECLIDINIUM/VILANTEROL 62.5/25MCG 7 PUFFS/INHALER INH SCH (08:04)
--- NOTE | 2020-09-29 08:04 | XRay Report ---
XR ankle LT min 3V routine CLINICAL HISTORY: pain, recent surgical repair. Left lower leg pain. COMPARISON STUDY: Left tibia/fibula 08/12/2020. FINDINGS: There are lateral cortical plate and screws within the mid to distal tibia and distal fibul a. The hardware appears intact. Alignment is anatomic. There is calcification formation surrounding t he healing distal tibial and fibular fractures. There is also callus formation surrounding the healin g proximal fibular fracture. Overlying splint material obscures fine bony detail. IMPRESSION: 1. Healing mid to distal tibial and distal fibular fractures status post internal fixation. The hardw are appears intact. 2. Healing proximal fibular fracture. 3. No acute fractures identified within the left ankle. ACT 112: Negative or not required by law. Electronically signed by: Tyler Davis M.D. 09/29/2020 8:03 AM
[2020-09-29] MEDS: THIAMINE HCL 100 MG TAB PO SCH (08:05)
[2020-09-29] MEDS: METOPROLOL SUCC 50MG EXT REL TAB PO SCH (08:06)
[2020-09-29] MEDS: ATORVASTATIN 10 MG TAB PO SCH (08:06)
[2020-09-29] MEDS: SACUBITRIL-VALSARTAN 24-26 MG TAB PO SCH ×2 (08:07→21:14)
[2020-09-29] MEDS: DOCUSATE SODIUM 100 MG CAP PO SCH ×2 (08:07→21:12)
[2020-09-29] MEDS: QUEtiapine FUMARATE 100 MG TABLET PO SCH (08:11)
[2020-09-29] MEDS: CEFEPIME 1,000 MG in SYRINGE 0 ML IV SCH ×2 (08:14→16:19)
[2020-09-29] MEDS: PREGABALIN 100 MG CAP PO SCH ×2 (08:14→21:13)
[2020-09-29] MEDS: INSULIN GLARGINE SOLOSTAR 100 UNITS/ML 3 ML PEN SC SCH ×2 (08:16→21:13)
[2020-09-29] MEDS: INSULIN ASPART 100 UNITS/ML 3 ML PEN SC SCH ×4 (08:16→21:12)
[2020-09-29] MEDS: POTASSIUM CHLORIDE CRTAB 20 MEQ TABCR PO SCH ×2 (08:25→10:06)
--- NOTE | 2020-09-29 08:59 | Pharmacy Report ---
Pharmacy Abx Dose Short Note - Date of Service September 29, 2020 - Assessment & Plan Assessment 59 year old F admitted last evening secondary to left ankle pain and inability to care for herself at home * Admitted at [facility] from 08/12-08/16/20 after a fall at home resulted in a left displaced and slightly comminuted tibia/fibula fracture which required ORIF on 08/13/20. Slow healing wound that showed no evidence of infection on follow-up on 09/18/20. * Upon arrival to ER, patient was tachycardic, tachypneic, diaphoretic and SOB. Reports chills and sweats at home but no fever. * Leukocytosis improved slightly today (23.7 --> 21.8). Renal fxn improved as well. Lactate was elevated in ER but improved slightly after hydration. Unclear source of infection. * Cultures pending. Started on vancomycin and cefepime empirically (48 hour stop date) Plan Vancomycin * Loading Dose: 2500 mg (23 mg/kg) x 1 in ER * Maintenance Dose: 1500 mg (14 mg/kg) IV every 12 hours * Targeting an AUC/SALLY goal of 400 - 600 * AUC/SALLY is the preferred PK/PD target in patient's on Vancomycin * Will check a trough tomorrow prior to steady state given patient's elevated BMI to ensure she is not accumulating Cefepime (pharmacy not consulted) * 1000 mg IV every 8 hours - appropriate Pharmacy will continue to follow and will adjust dose/frequency as necessary. Thank you.
[2020-09-29] MEDS: VANCOMYCIN HCL 1,500 MG in SODIUM CHLORIDE 0.9% 500 ML IV SCH ×2 (10:04→21:20)
[2020-09-29] MEDS ORDERED: POLYETHYLENE (MIRALAX) 17 GM PACK PO ONE ×2 (11:03→14:31)
[2020-09-29] MEDS: ACETAMINOPHEN 325 MG TAB PO PRN (11:10)
--- NOTE | 2020-09-29 11:15 | XRay Report ---
XR KUB/Abdomen 1 view CLINICAL HISTORY: Abdominal discomfort COMPARISON STUDY: No previous studies for comparison. FINDINGS: There is contrast within the bladder secondary to a prior CT scan. There is nonspecific bow el gas pattern with minimally dilated right mid abdominal small bowel loops measuring up to 4 cm. The re are no calcifications suspicious for renal calculi IMPRESSION: Nonspecific bowel gas pattern with mildly dilated right mid abdominal small bowel loops measuring up to 4 cm in diameter ACT 112: Negative or not required by law. Electronically signed by: Amrit Benitez M.D. 09/29/2020 11:14 AM
[2020-09-29] MEDS ORDERED: OPTIRAY 300 100mL IV ONE (13:51)
--- NOTE | 2020-09-29 14:15 | CT Scan Report ---
CT abd pelvis oral and IV con CLINICAL HISTORY: sepsis/abd pain COMPARISON STUDY: January 2020 TECHNIQUE: The patient was scanned following administration of dilute oral contrast, and in a dynamic helical fashion during intravenous administration of 89 cc of Optiray 320 A dose lowering technique was utilized adhering to the principles of ALARA. CT DOSE: 1546.44 mGy.cm FINDINGS: Lower chest: The heart is enlarged. Cardiac electrodes are visualized. There are right basilar atelec tatic changes. Liver: There is a 2 cm hypervascular focus within the posterior aspect of the right lobe the liver ve rsus artifact.. The hepatic and portal veins appear patent. There is equivocal slight nodularity of t he serosal surface the liver. There is mild focal fat adjacent the falciform ligament. Gallbladder: Contracted Spleen: Normal in size and attenuation. Pancreas: Unremarkable. Adrenal glands: There is a 13 mm left suprarenal nodule, likely adrenal in origin. This remain stable Kidneys: No solid renal masses are visualized. There is no hydronephrosis. Bowel: There are no transition zones indicate bowel obstruction. There is no evidence of acute divert iculitis. There is no evidence of acute appendicitis. Peritoneum: There is no intraperitoneal free air or abdominal ascites. Vasculature: The abdominal aorta is normal in course and caliber. Adenopathy: There are mildly enlarged left iliac chain lymph nodes. There are borderline enlarged par a-aortic lymph nodes. Pelvic viscera: The bladder, and pelvic viscera are unremarkable. Skeletal structures: No destructive osseous lesions are seen. IMPRESSION: 1. No evidence of bowel obstruction. No evidence of free air 2. No evidence of acute diverticulitis. No evidence of acute appendicitis. 3. Mild unexplained left iliac chain lymphadenopathy. This represents a new finding when compared the prior January 2020 examination. 4. 2 cm hypervascular right hepatic lobe focus. Artifact favored over true nodule. ACT 112: Negative or not required by law. Electronically signed by: Amrit Benitez M.D. 09/29/2020 2:13 PM
--- NOTE | 2020-09-29 14:25 | Electrocardiogram Report ---
Test Reason : Blood Pressure : / mmHG Vent. Rate : 164 BPM Atrial Rate : 136 BPM P-R Int : 000 ms QRS Dur : 092 ms QT Int : 330 ms P-R-T Axes : 000 081 201 degrees QTc Int : 545 ms Poor data quality, interpretation may be adversely affected Atrial fibrillation with rapid ventricular response Low voltage QRS Abnormal ECG When compared with ECG of 12-AUG-2020 00:42, Electronic ventricular pacemaker no longer present Vent. rate has increased BY 89 BPM Confirmed by Nolan Douglas ([id number]) on 09/29/2020 2:24:42 PM Referred By: REFERRED SELF Confirmed By:Nolan Douglas
[2020-09-29] MEDS ORDERED: LACTATED RINGER'S 500 ML IV ONE (16:18)
[2020-09-29] MEDS: DIGOXIN 0.125 MG TAB PO SCH (16:21)
[2020-09-29] MEDS ORDERED: RIVAROXABAN 20 MG TAB PO SCH (16:30)
[2020-09-29] MEDS: LACTATED RINGER'S 1,000 ML IV SCH (16:45)
--- NOTE | 2020-09-29 17:45 | Billing Data ---
Date of Service September 29, 2020 Coding Level of Care Code 75911 Subseq Hosp Care Lvl 3
[2020-09-29] MEDS: traMADol HCL 50 MG TABLET PO PRN (18:17)
--- NOTE | 2020-09-29 18:45 | Orthopedic Consultation ---
Date of Service September 29, 2020 Assessment & Plan (1) 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: I cleaned her left leg up today with some hydrogen peroxide. A sterile dressing was applied. This is patients can need to go to the operating room for formal irrigation debridement. The risks and benefits of this procedure explained to the patient include possible even need for amputation in the future. She understands and desires to proceed. Informed consent was obtained. Should continue on the antibiotics as per the medicine service. The status of her left leg is guarded based on her multiple medical coronary morbidities and underlying infection. We will need to hold her Xarelto for now. History of Present Illness Reason for Consultation: . Follow-up of open reduction and internal fixation of left distal tibia fracture now 6 weeks out. Requesting Physician: . Attending Physician: Chito Chamberlain DO . Patient is a 59-year-old female with multiple medical comorbidities who sustained a fall about 6 weeks ago. She underwent open reduction internal fix ation of left distal tibia fracture. She had slow wound healing but made progress. She was seen in the office 2 weeks ago when placed in a short leg cast. She was admitted to the hospital yesterday with concerns of sepsis. She had an extensive infectious work-up which has been negative. She does have a cast on her left leg. She reports a moderate amount of pain but nothing unusual. There is been no obvious drainage around the cast. Allergies Allergy/AdvReac Type Severity Reaction Status Date / Time fentanyl Allergy Mild RASH,ITCHIN Verified 08/12/20 01:45 G oxycodone AdvReac Intermediate Verified 09/26/20 16:04 Home Medications Medication Instructions Recorded Confirmed Type hydroxyzine pamoate 50 mg PO HS 10/07/18 09/29/20 History trazodone 200 mg PO HS 10/07/18 09/29/20 History metformin 500 mg tablet 500 mg PO BID #60 tab 12/15/18 09/29/20 Rx quetiapine [Seroquel] 100 mg PO QAM 01/02/19 09/29/20 History Oxygen Home #1 ea 05/09/19 08/28/20 Rx docusate sodium 100 mg capsule 100 mg PO BID #180 cap 06/28/19 09/29/20 Rx quetiapine 400 mg tablet 400 mg PO HS tab 07/05/19 09/29/20 History miscellaneous medical supply #1 ea 07/12/19 08/28/20 Rx magnesium oxide 400 mg (241.3 mg 400 mg PO DAILY #30 tab 12/26/19 09/29/20 Rx magnesium) tablet potassium chloride 20 mEq 40 meq PO DAILY #180 tab 03/19/20 09/29/20 Rx tablet,extended release atorvastatin 10 mg tablet 10 mg PO QAM #90 tab 04/09/20 09/29/20 Rx digoxin 125 mcg (0.125 mg) tablet 125 mcg PO QAM #90 tab 04/17/20 09/29/20 Rx rivaroxaban 20 mg tablet 20 mg PO QAM #90 tab 04/17/20 09/29/20 Rx omeprazole 20 mg capsule,delayed 20 mg PO DAILYBB #90 cap 06/09/20 09/29/20 Rx release pregabalin 100 mg capsule 100 mg PO BID 30 Days #60 cap 06/23/20 09/29/20 Rx Portable Oxygen #1 ea 07/29/20 08/28/20 Rx furosemide 40 mg tablet 80 mg PO BID #120 tab 08/08/20 09/29/20 Rx acetaminophen 325 mg capsule 650 mg PO Q4H PRN cap 08/27/20 09/29/20 History sacubitril 24 mg-valsartan 26 mg 1 tab PO BID #60 tab 08/27/20 09/29/20 Rx tablet oxycodone 5 mg tablet 5 mg PO Q6H PRN #20 tab 09/01/20 09/29/20 Rx metoprolol succinate 100 mg 150 mg PO QAM #45 tab 09/02/20 09/29/20 Rx tablet,extended release 24 hr mecobalamin (vitamin B12) 1,000 500 mcg PO DAILY #15 tab 09/03/20 09/29/20 Rx mcg chewable tablet thiamine HCl (vitamin B1) 100 mg 200 mg PO DAILY #60 tab 09/03/20 09/29/20 Rx tablet umeclidinium 62.5 mcg-vilanterol 1 inh INH Q24H #60 ea 09/11/20 09/29/20 Rx 25 mcg/actuation powdr for inhalation tramadol 50 mg tablet 50 mg PO Q6 PRN #40 tab 09/23/20 09/29/20 Rx Past Med/Surg History Medical History Adrenal adenoma Rt sided imaging 01/2020 Adrenal incidentaloma Asthma Atrial fibrillation Carpal tunnel syndrome CHF (congestive heart failure) 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% per echo 06/06/18; non-obstructive CAD per cath 2006 Chronic respiratory failure with hypoxia COPD (chronic obstructive pulmonary disease) Depression Diabetes type 2, controlled patient denies having diabetes, does not want further testing even though she is prescribed Metformin GERD (gastroesophageal reflux disease) GERD (gastroesophageal reflux disease) Glaucoma History of alcohol use History of pulmonary embolism History of tobacco abuse HTN (hypertension) Lightheadedness Memory impairment Morbid obesity Pericardial effusion Permanent atrial fibrillation PTSD (post-traumatic stress disorder) Pulmonary embolism 2013 while living in [place] Pulmonary hypertension Restrictive lung disease Schizoaffective disorder Schizoaffective disorder Severe mitral regurgitation Tibia/fibula fracture Ventricular arrhythmia Surgical History AICD (automatic cardioverter/defibrillator) present Pacemaker S/P ORIF (open reduction internal fixation) fracture ankle, left S/P tubal ligation Family History Mother , in her 70s Lung cancer from this Congestive heart failure (CHF) Breast cancer Father No problems noted. Other Hypertension Ulcerative colitis Denies family history of Colon cancer Ovarian cancer Prostate cancer Myocardial infarction Social History Smoking Status: Former smoker Tobacco Type: Cigarettes Years Smoked: 30; Cigarettes Per Day: <1; Second Hand Exposure: No; Hx Alcohol Use: No Hx Substance Use: No Preferred Language: Kiswahili Communication Ability: Effective Visual Impairment: No Limitations Hearing Ability: Normal Director Orange Required: No Beliefs That Will Affect Care: None marital status: marital status details: 5 kids Current Living Situation: Alone and Other Current Living Situation Comment: personal caregivers 4 days a week for 2 hours a day. 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 Physical Exam . Orthopedic physical examination of the left leg reveals the cast to be in place. No signs of problems. Some mild toe swelling patient flex extend her toes appropriately. The cast was removed. She had obvious pus coming out of the incision site both superiorly and inferiorly. Not a lot of swelling. No real redness or warmth. Just a gross purulence. She is neurologically intact. Results & Data Results & Data Laboratory Results . Diagnostic Findings . X-rays of the left tib-fib reveal a healing tib-fib fracture fixed with open reduction internal fixation. She has evidence of the previous ankle fracture ORIF as well. PG Care Time/CCT Total # of Minutes Spent Total Time Spent with Patient: Total time spent is greater than 50% in coordination of care (as documented) at patient's floor/unit and/or counseling patient: Coding Level of Care Code 53880 Inpt Consult Level 4 Diagnoses 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 T84.623A
[2020-09-29] MEDS: POLYETHYLENE (MIRALAX) 17 GM PACK PO SCH (21:12)
[2020-09-29] MEDS: hydrOXYzine HCl 25 MG TAB PO SCH (21:14)
[2020-09-29] MEDS: traZODone HCL 100 MG TAB PO SCH (21:15)
[2020-09-29] MEDS: QUEtiapine FUMARATE 200 MG TAB PO SCH (21:15)
[2020-09-30] MEDS: CEFEPIME 1,000 MG in SYRINGE 0 ML IV SCH ×4 (00:36→23:19)
[2020-09-30] MEDS: PANTOprazole 40 MG TAB PO SCH (06:10)
[2020-09-30] MEDS ORDERED: LEVALBUTEROL HCL 0.63 MG/3 ML NEB NEB STA (06:36)
[2020-09-30] MEDS ORDERED: FUROSEMIDE 40 MG in SYRINGE 0 ML IV ONE (07:00)
[2020-09-30] MEDS ORDERED: DAKIN'S SOLN 0.5% FULL STRENGTH 473ML BTL EXT ONE (07:10)
--- NOTE | 2020-09-30 07:17 | Hospitalist Progress Note ---
Date of Service September 30, 2020 Assessment & Plan (1) Sepsis: #Sepsis On admission meeting SIRS criteria, patient tachycardic, tachypneic, leukocytosis with WBC=23.69 with neutrophil predominance and bands, thrombocytosis with [id number], suspect acute phase reaction in setting of infection. Elevated lactate of 3.2 which improved slighlty to 2.5 - patient with chronically elevated lactate. Unclear source of infection. CT chest with no PNA. UA and blood cultures pending. She does have slight increase in LFTs with T-bili of 1.9, AP of 293 suggesting possible GI source, however, no abdominal pain on deep palpation. No RUQ pain. Negative Clarke's sign. Additional source of infection could be left ankle - she is 1 month out from her ORIF, hardware in place. No signs or symptoms of skin infection in her left lower extremity, right upper quadrant ultrasound demonstrating hepatic steatosis. Patient endorsing diffuse abdominal tenderness today on exam, obtain CT abdomen pelvis with contrast, negative study with the exception of extensive stool burden. X-ray of her left ankle showing no obvious signs of infection, repeat lactate demonstrated downtrending. Source identified left lower extremity, evaluated by orthopedics 09/29, to the OR 09/30. Cultures continue to demonstrate any growth today continue empiric therapy pending instrumentation and sensitivities -Source identified, left lower extremities -Orthopedics consulted -OR for irrigation and debridement -Gram stain from the OR demonstrating GPC's -Continue empiric therapy with vancomycin and Cefepime, narrow pending culture resolution and sensitivities -Trend CBC -wbc:23.69->21.77->17.36 -Tylenol PRN fever #A. fib with RVR Patient with AF with RVR. HR 140-170 here. Minimally responsive to IVF. Digoxin subtherapeutic at 0.5. Long history of A. fib, difficult to control. Suspect secondary to underlying sepsis and will improve with source control and improvement infection. -continue to monitor on Telemetry monitoring -judiciously providing 250 mL boluses of LR as tolerated -if patient worsens to consider amio vs dilt if bp allows -Continue Metoprolol succinate 150mg po daily -Continue Digoxin 0.125mg po daily -Continue Xarelto 20mg po daily #Fracture of tibia and fibula Patient with cast in place. She follows with Ortho -Tramadol 50mg po q6 hours PRN -Consulted orthopedics, appreciate recs -See above #Anxiety Chronic. Patient follows at [facility] -Continue Hydroxyzine 50mg po qHS #COPD Patient with no cough or wheeze. Seems to be compensated -Continue Umeclidinium/Vilanterol -Xopenex neb PRN #CHF Patient appears to be well compensated, not overtly volume overloaded -Continue metoprolol -Continue Entresto BID -Cautious use of fluids in presumed sepsis with close monitoring of volume status -Holding Lasix PO for now #Gerd Chronic -Continue Protonix 40mg po daily #Diabetes type 2 Controlled. Last Hgb A1C = 6.5 on 08/12/20 -Hold Metformin while hospitalized -Lantus 5u BID -ISS -Goal blood sugar 100 - 140 -Continue Lyrica 100mg po BID for neuropathy #Hypertension Blood pressure stable -Continue Metoprolol -Continue Entresto -Monitor FENa: Advance diet as tolerated status post surgery Code Status: Full DVT PPX: Rivaroxaban 20 mg p.o. daily PT/OT: When medically stable Dispo: PCU Fabiano Sanchez MD PGY 2, [facility] This chart was completed utilizing [employer] voice recognition software. Grammatical errors, random word insertions, pronoun errors, and in complete sentences are an occasional consequence of the system. Any questions or concerns about the content, text, or information contained within the body of this dictation should be addressed directly to the physician for clarification. (2) Atrial fibrillation with RVR: (3) Diabetes type 2, controlled: (4) Fracture of tibia and fibula: (5) Anxiety: (6) COPD (chronic obstructive pulmonary disease): (7) Chronic systolic heart failure: (8) Schizoaffective disorder: (9) GERD (gastroesophageal reflux disease): (10) HTN (hypertension): Admission and Anticipated Discharge Date Admission Date: September 28, 2020 Supervising Physician Co-Signing Physician Notes I personally examined the patient and verified all eugene points of history and exam, discussed case, and agree with decision making with Dr Sanchez. Postop, feeling okay. No shortness of breath. Ankle hurts some but tolerable. No other new complaints. Vitals noted, in general she is awake and alert pleasant no distress. HEENT normocephalic atraumatic mucous membranes moist. Lungs are overall clear, faint scattered rhonchi mid to lower right lung field otherwise clear no rales rhonchi or wheezes good effort. Left ankle is dressed, no tracking erythema noted. Sepsisafter further review, was in fact septic ankle/incisional infectionthis has been cleared out operatively, continue antibiotics awaiting cultures. A. fib/RVRrate control somewhat difficult againsome of her tachycardia is probably compensatory to sepsisand fluids would be an appropriate remedy for this, but we need to go with caution due to her very low EF. At the same time if her rates do not improve with a small amount (somewhere in the neighborhood of 500 mL) of isotonic fluids, would want to escalate her control either with diltiazem drip if her blood pressure allows, or amiodarone if it does not. Chronic hypoxic respiratory failurearound her baseline oxygen requirement, follow serial lung exams with fluid boluses Deep sleepshe notes a sleep study a year ago and recalls she did not need CPAP then, may be worth repeating given how slow she was to wake at the bedside. Continue to follow. Subjective Patient lying in bed this afternoon in no acute distress. Patient reports feeling significantly better than yesterday. Incidentally patient appears to be more coherent and her thought process more logical. She is no longer tearful or fearful. She endorses pain in her left lower extremity, reports her breathing is well, no acute distress. Results & Data Results & Data ([facility]) Vital Signs (Past 12 Hours) Vital Signs Temp Pulse Pulse Resp BP Pulse Ox 09/30/20 04:00 36.8 C 127 H 20 109/73 96 09/30/20 00:01 129 H 09/29/20 23:00 36.6 C 143 H 18 102/65 96 09/29/20 19:33 36.3 C L 123 H 27 H 131/64 90 Resident Activity Tracking Resident Involvement: Resident Care Provided Care Provided: Adult Hospital Medicine (1) Fracture of tibia and fibula Encounter type: initial encounter Fracture type: closed Laterality: left Qualified Code(s): S82.202A - Unspecified fracture of shaft of left tibia, initial encounter for closed fracture; S82.402A - Unspecified fracture of shaft of left fibula, initial encounter for closed fracture (2) Schizoaffective disorder Schizoaffective disorder type: bipolar Qualified Code(s): F25.0 - Schizoaffective disorder, bipolar type (3) Diabetes type 2, controlled Diabetes mellitus complication status: with unspecified complications 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
[2020-09-30] MEDS ORDERED: VANCOMYCIN HCL 1000MG/20ML VIAL ONE ×2 (07:43→08:51)
[2020-09-30] MEDS ORDERED: ONDANSETRON INJ 2 MG/ML 2 ML VIAL ONE (07:44)
[2020-09-30] MEDS ORDERED: LIDOCAINE HCL 2% 2 ML VIAL/AMP(20MG/ML) INFIL ONE (07:44)
[2020-09-30] MEDS ORDERED: fentaNYL citrate 100 MCG/2 ML VIAL ONE (07:44)
[2020-09-30] MEDS ORDERED: PROPOFOL IV EMULSION 10 MG/ML 20 ML VIAL IV ONE (07:44)
--- NOTE | 2020-09-30 07:47 | History & Physical Bridge Note ---
Date of Service September 30, 2020 History & Physical Bridge Note I have examined the patient, reviewed the History & Physical and in the interval since the performance of the History & Physical I have noted the following changes of clinical significance: Some respiratory issues overnight, but seems back to baseline to me. Will proceed with I & D if OK with medical and anesthesia.
[2020-09-30] MEDS ORDERED: HYDROmorphone INJ 2 MG/ML SYR/VIAL ONE (07:53)
--- NOTE | 2020-09-30 08:49 | Anesthesiology Consultation ---
Date of Service September 30, 2020 Assessment & Plan (1) Encounter for pre-operative examination: Chart Review Chart Review: Acceptable Risk for Surgery (high risk) and Patient NOT seen in Pre Admission Testing Consults Requested none ASA ASA4 History Surgery Operation Date: 09/30/20 07:30 Proposed Procedures p Left Leg Incision and Drainage - Lane Sanchez MD Height/Weight Height: 5 ft 6 in Weight: 110.7 kg Allergies Allergy/AdvReac Type Severity Reaction Status Date / Time fentanyl Allergy Mild RASH,ITCHIN Verified 08/12/20 01:45 G oxycodone AdvReac Intermediate Verified 09/26/20 16:04 Medications Home Medications Medication Instructions Recorded Confirmed Last Taken hydroxyzine pamoate 50 mg PO HS 10/07/18 09/29/20 04/24/19 trazodone 200 mg PO HS 10/07/18 09/29/20 04/24/19 metformin 500 mg tablet 500 mg PO BID #60 tab 12/15/18 09/29/20 04/24/19 quetiapine [Seroquel] 100 mg PO QAM 01/02/19 09/29/20 04/24/19 Oxygen Home #1 ea 05/09/19 08/28/20 Unknown docusate sodium 100 mg capsule 100 mg PO BID #180 cap 06/28/19 09/29/20 Unknown quetiapine 400 mg tablet 400 mg PO HS tab 07/05/19 09/29/20 Unknown miscellaneous medical supply #1 ea 07/12/19 08/28/20 Unknown magnesium oxide 400 mg (241.3 mg 400 mg PO DAILY #30 tab 12/26/19 09/29/20 Unknown magnesium) tablet potassium chloride 20 mEq 40 meq PO DAILY #180 tab 03/19/20 09/29/20 Unknown tablet,extended release atorvastatin 10 mg tablet 10 mg PO QAM #90 tab 04/09/20 09/29/20 Unknown digoxin 125 mcg (0.125 mg) tablet 125 mcg PO QAM #90 tab 04/17/20 09/29/20 Unknown rivaroxaban 20 mg tablet 20 mg PO QAM #90 tab 04/17/20 09/29/20 Unknown omeprazole 20 mg capsule,delayed 20 mg PO DAILYBB #90 cap 06/09/20 09/29/20 Unknown release pregabalin 100 mg capsule 100 mg PO BID 30 Days #60 cap 06/23/20 09/29/20 Unknown Portable Oxygen #1 ea 07/29/20 08/28/20 Unknown furosemide 40 mg tablet 80 mg PO BID #120 tab 08/08/20 09/29/20 Unknown acetaminophen 325 mg capsule 650 mg PO Q4H PRN cap 08/27/20 09/29/20 Unknown sacubitril 24 mg-valsartan 26 mg 1 tab PO BID #60 tab 08/27/20 09/29/20 Unknown tablet oxycodone 5 mg tablet 5 mg PO Q6H PRN #20 tab 09/01/20 09/29/20 Unknown metoprolol succinate 100 mg 150 mg PO QAM #45 tab 09/02/20 09/29/20 Unknown tablet,extended release 24 hr mecobalamin (vitamin B12) 1,000 500 mcg PO DAILY #15 tab 09/03/20 09/29/20 Unknown mcg chewable tablet thiamine HCl (vitamin B1) 100 mg 200 mg PO DAILY #60 tab 09/03/20 09/29/20 Unknown tablet umeclidinium 62.5 mcg-vilanterol 1 inh INH Q24H #60 ea 09/11/20 09/29/20 Unknown 25 mcg/actuation powdr for inhalation tramadol 50 mg tablet 50 mg PO Q6 PRN #40 tab 09/23/20 09/29/20 Unknown Active Medications Generic Name Dose Route Start Last Admin Trade Name Freq PRN Reason Stop Dose Admin Acetaminophen 650 mg 09/28/20 22:43 09/29/20 11:10 Acetaminophen 325 Mg Tab PO 10/28/20 22:42 650 mg Q4H PRN Administration Pain or Fever Atorvastatin Calcium 10 mg 09/29/20 09:00 09/29/20 08:06 Atorvastatin 10 Mg Tab PO 10/29/20 08:59 10 mg QAM VICTOR M Administration Digoxin 0.125 mg 09/29/20 16:00 09/29/20 16:21 Digoxin 0.125 Mg Tab PO 10/29/20 15:59 0.125 mg DAILY@1600 VICTOR M Administration Docusate Sodium 100 mg 09/29/20 09:00 09/29/20 21:12 Docusate Sodium 100 Mg Cap PO 10/29/20 08:59 Not Given BID VICTOR M Hydroxyzine HCl 50 mg 09/29/20 21:00 09/29/20 21:14 Hydroxyzine Hcl 25 Mg Tab PO 10/29/20 20:59 50 mg HS VICTOR M Administration Cefepime HCl 1,000 mg/ Syringe 11.3 mls @ 5.5 mls/min 09/29/20 00:00 09/30/20 00:36 IV 10/01/20 00:00 5.5 mls/min Q8H VICTOR M Administration Protocol Vancomycin HCl 1,500 mg/ 530 mls @ 200 mls/hr 09/29/20 10:00 09/30/20 00:33 Sodium Chloride IV 10/01/20 09:59 Infused Q12H VICTOR M Infusion Insulin Aspart 0 units 09/28/20 23:15 09/29/20 21:12 Insulin Aspart 100 Units/Ml 3 Ml Pen SC 10/28/20 23:14 Not Given ACHS VICTOR M Insulin Glargine 5 units 09/28/20 23:15 09/29/20 21:13 Insulin Glargine Solostar 100 Units/Ml 3 Ml Pen SC 10/28/20 23:14 Not Given BID VICTOR M Metoprolol Succinate 150 mg 09/29/20 09:00 09/29/20 08:06 Metoprolol Succ 50mg Ext Rel Tab PO 10/29/20 08:59 Not Given QAM VICTOR M Pantoprazole Sodium 40 mg 09/29/20 06:30 09/30/20 06:10 Pantoprazole 40 Mg Tab PO 10/29/20 06:29 40 mg DAILYBB VICTOR M Administration Polyethylene Glycol 17 gm 09/29/20 21:00 09/29/20 21:12 Polyethylene (Miralax) 17 Gm Pack PO 10/29/20 20:59 Not Given BID VICTOR M Pregabalin 100 mg 09/29/20 09:00 09/29/20 21:13 Pregabalin 100 Mg Cap PO 10/29/20 08:59 100 mg BID VICTOR M Administration Quetiapine Fumarate 400 mg 09/29/20 21:00 09/29/20 21:15 Quetiapine Fumarate 200 Mg Tab PO 10/29/20 20:59 400 mg HS VICTOR M Administration Quetiapine Fumarate 100 mg 09/29/20 09:00 09/29/20 08:11 Quetiapine Fumarate 100 Mg Tablet PO 10/29/20 08:59 100 mg QAM VICTOR M Administration Sacubitril/Valsartan 1 tab 09/29/20 09:00 09/29/20 21:14 Sacubitril-Valsartan 24-26 Mg Tab PO 10/29/20 08:59 1 tab BID VICTORM Administration Thiamine HCl 200 mg 09/29/20 09:00 09/29/20 08:05 Thiamine Hcl 100 Mg Tab PO 10/29/20 08:59 200 mg DAILY VICTOR M Administration Tramadol HCl 50 mg 09/29/20 02:50 09/29/20 18:17 Tramadol Hcl 50 Mg Tablet PO 10/29/20 02:49 50 mg Q6 PRN Administration pain Trazodone HCl 200 mg 09/29/20 21:00 09/29/20 21:15 Trazodone Hcl 100 Mg Tab PO 10/29/20 20:59 200 mg HS VICTOR M Administration Umeclidinium/Vilanterol 1 puffs 09/29/20 09:00 09/29/20 08:04 Umeclidinium/Vilanterol 62.5/25mcg 7 Puffs/Inhaler INH 10/29/20 08:59 1 puffs DAILY VICTOR M Administration NPO Date Last Intake of Fluids: 09/29/20 Time Last Intake of Fluids: 23:55 Date Last Intake of Solids: 09/29/20 Time Last Intake of Solids: 23:55 Past Medical History Medical History Adrenal adenoma Rt sided imaging 01/2020 Adrenal incidentaloma Asthma Atrial fibrillation Carpal tunnel syndrome CHF (congestive heart failure) 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% per echo 06/06/18; non-obstructive CAD per cath 2006 Chronic respiratory failure with hypoxia COPD (chronic obstructive pulmonary disease) Depression Diabetes type 2, controlled patient denies having diabetes, does not want further testing even though she is prescribed Metformin GERD (gastroesophageal reflux disease) GERD (gastroesophageal reflux disease) Glaucoma History of alcohol use History of pulmonary embolism History of tobacco abuse HTN (hypertension) 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 Lightheadedness Memory impairment Morbid obesity Pericardial effusion Permanent atrial fibrillation PTSD (post-traumatic stress disorder) Pulmonary embolism 2013 while living in [place] Pulmonary hypertension Restrictive lung disease Schizoaffective disorder Schizoaffective disorder Severe mitral regurgitation Tibia/fibula fracture Ventricular arrhythmia Past Family History Family History Mother , in her 70s Lung cancer from this Congestive heart failure (CHF) Breast cancer Father No problems noted. Other Hypertension Ulcerative colitis Denies family history of Colon cancer Ovarian cancer Prostate cancer Myocardial infarction Past Surgical History Surgical History AICD (automatic cardioverter/defibrillator) present Pacemaker S/P ORIF (open reduction internal fixation) fracture ankle, left S/P tubal ligation Social History Smoking Status: Former smoker tobacco type: cigarettes Smoking cigarettes per day: <1 Hx Alcohol Use: No Alcohol type: hard liquor alcohol intake frequency: holidays/special occasions only Hx Substance Use: No substance use type: does not use Physical Exam Vital Signs Last Vital Signs Temp 36.6 C 09/30/20 08:33 Pulse 130 H 09/30/20 08:33 Resp 28 H 09/30/20 08:33 BP 99/68 L 09/30/20 08:33 Pulse Ox 97 09/30/20 08:33 Constitutional + obese Neck + thick neck Respiratory Auscultation: + diminished lung sounds Cardiovascular Rate/Rhythm: + tachycardic and + irregularly irregular Extremities: + pedal edema (1+) Lab Results Anesthesia Preop Results Results Anesthesia Widget: WBC 21.77 K/uL (4.8-10.8) H 09/29/20 Hgb 10.5 g/dL (12.0-16.0) L 09/29/20 Hct 31.2 % (37-47) L 09/29/20 Plt 476 K/uL (130-400) H 09/29/20 Na 136 mmol/L (136-145) 09/29/20 K 3.5 mmol/L (3.5-5.1) 09/29/20 Cl 99 mmol/L (98-107) 09/29/20 CO2 31 mmol/L (21-32) 09/29/20 BUN 8 mg/dl (7-18) 09/29/20 Creat 0.89 mg/dl (0.6-1.2) 09/29/20 Glucose Level 140 mg/dl (70-99) H 09/29/20 PT 11.9 Seconds (9.0-12.0) 09/28/20 PTT 28.3 Seconds (21.0-31.0) 09/28/20 INR 1.2 (0.9-1.1) H 09/28/20 TSH 1.690 uIu/ml (0.300-4.500) 09/29/20 HA1c 6.5 % (4.5-5.6) H 08/12/20 Urine Color Dark Yellow 09/29/20 Urine Appearance Cloudy (Clear) A 09/29/20 Urine pH 5.5 (4.5-7.5) 09/29/20 Urine Specific Hobson > 1.045 (1.000-1.030) H 09/29/20 Urine Protein 1+ (Negative) H 09/29/20 Urine Glucose (UA) Negative (Negative) 09/29/20 Urine Ketones Trace (Negative) H 09/29/20 Urine Blood Negative (Negative) 09/29/20 Urine Nitrite Negative (Negative) 09/29/20 Urine Bilirubin 1+ (Negative) H 09/29/20 Urine Urobilinogen Negative (Negative) 09/29/20 Urine Leukocyte Esterase Trace (Negative) H 09/29/20 Urine WBC (Auto) 1-5 /hpf (0-5) 09/29/20 Urine RBC (Auto) 0-4 /hpf (0-4) 09/29/20 Urine Hyaline Casts (Auto) 0 /lpf (0-5) 09/29/20 Urine Epithelial Cells (Auto) >30 /lpf (0-5) H 09/29/20 Urine Bacteria (Auto) Negative (Negative) 09/29/20 Urine Yeast Not Reportable 09/29/20 COVID-19 PCR NEGATIVE (Negative) 09/28/20 Blood Type O Positive 09/29/20 Antibody Screen NEGATIVE 09/29/20 Testing Laboratory Results 09/29/20 05:27 09/29/20 05:27 PT 11.9 Seconds (9.0-12.0) 09/28/20 18: INR 1.2 (0.9-1.1) H 09/28/20 18:22 APTT 28.3 Seconds (21.0-31.0) 09/28/20 18:22 Urine Color Dark Yellow 09/29/20 03: Urine Appearance Cloudy (Clear) A 09/29/20 03: Urine pH 5.5 (4.5-7.5) 09/29/20 03:25 Ur Specific Hobson > 1.045 (1.000-1.030) H 09/29/20 03:25 Urine Protein 1+ (Negative) H 09/29/20 03:25 Urine Glucose (UA) Negative (Negative) 09/29/20 03:25 Urine Ketones Trace (Negative) H 09/29/20 03:25 Urine Nitrite Negative (Negative) 09/29/20 03:25 Ur Leukocyte Esterase Trace (Negative) H 09/29/20 03:25 Urine WBC (Auto) 1-5 /hpf (0-5) 09/29/20 03:25 Urine RBC (Auto) 0-4 /hpf (0-4) 09/29/20 03:25 U Hyaline Cast (Auto) 0 /lpf (0-5) 09/29/20 03:25 U Epithel Cells (Auto) >30 /lpf (0-5) H 09/29/20 03:25 Urine Bacteria (Auto) Negative (Negative) 09/29/20 03:25 Blood Type O Positive 09/29/20 19:22 Antibody Screen NEGATIVE 09/29/20 19:22 09/28/20 19:53 Aerobic Blood Culture - Preliminary Blood No growth in Aerobic bottle after 24 hours. Anaerobic Blood Culture - Preliminary No growth in Anaerobic bottle after 24 hours. 09/28/20 20:00 Aerobic Blood Culture - Preliminary Blood No growth in Aerobic bottle after 24 hours. Anaerobic Blood Culture - Preliminary No growth in Anaerobic bottle after 24 hours. 09/30/20 09/30/20 08:14 07:32 POC Glucose 114 H 111 H Echocardiogram Date: 08/12/20 EF: 20-25 Other Findings: + pertinent finding (pulmonary htn) Pulmonary Function Test Date: 04/12/20 Findings: + FEV1 pre (56) moderate obstructive disease
[2020-09-30] MEDS ORDERED: DexMEDEtomidine HCL IV 100 MCG/ML VIAL ONE (09:02)
--- NOTE | 2020-09-30 09:02 | Progress Notes ---
DATE: 09/30/2020 SUBJECTIVE: A 59-year-old female 6 weeks out from ORIF of a left tib-fib fracture, readmitted with potential sepsis. Infectious workup was negative except she has got obvious infection of the left leg. Plan was to do an I and D today. She had a little bit of respiratory suppression overnight, but seems to be doing better this morning. She was given some Lasix. She feels like she is back to baseline. No new complaints. OBJECTIVE: VITAL SIGNS: Temperature 36.8. Slightly tachycardic at 106 where she has been even higher than that. EXTREMITIES: Examination of the left leg reveals a dressing to be in place. There is some drainage on the dressing. She can dorsiflex and plantarflex her toes appropriately. ASSESSMENT: A 59-year-old white female 6 weeks out from ORIF of left tib-fib fracture with obvious infection. She has got gross pus in her leg. She did have some respiratory issues overnight, but seems back to baseline. She was given some Lasix and a nebulizer and clinically looks to be at baseline. PLAN: Anesthesia is going to evaluate this patient. We will continue to proceed with I and D if medically stable. She certainly needs this done. Continue medical management. As far as her left leg, her situation is still fairly guarded as far as adequately treating this infection, which is pretty severe. This is all related probably to some degree to her multiple medical comorbidities including obesity, diabetes, among other things. We will need to continue to hold her anticoagulation for now.
[2020-09-30] MEDS ORDERED: SUGAMMADEX SODIUM 200 MG/2 ML VIAL IV ONE (09:15)
[2020-09-30] MEDS ORDERED: METOPROLOL TARTRATE 1 MG/ML VIAL IV ONE (09:27)
[2020-09-30] MEDS ORDERED: PHENYLEPHRINE HCL 10 MG/ML VIAL ONE (09:27)
[2020-09-30] MEDS ORDERED: PHENYLEPHRINE 100MCG/ML 5ML SYR ONE (09:27)
[2020-09-30] MEDS ORDERED: VANCOMYCIN TROUGH ONE (09:30)
[2020-09-30] MEDS ORDERED: ALBUT/IPRATROP 3MG/0.5MG NEB 3 ML VIAL NEB STA (10:13)
--- NOTE | 2020-09-30 10:19 | Operative Report ---
Post Operative Report Pre & Post Diagnosis Operation Date: 09/30/20 07:30 Pre-Op Diagnosis: Infection Associated with Internal Fixation Device of Left Tibia Post-Op Diagnosis: Infection Associated with Internal Fixation Device of Left Tibia I identified the patient and participated in the time-out.: Yes Procedure Operation Date: 09/30/20 07:30 Actual Procedures p Left Leg irrigation, incision and Debridement of Infection(Left) - Lane Sanchez MD Surgeon Lane Sanchez MD Elevator Installer Apprentice TARAH Valentino Estimated Blood Loss 100 Findings Consistent with Post-Op Diagnosis Operative findings revealed an extensive infection of and by involving the entire left leg wound. There is pretty extensive fat necrosis. The bone appeared to be healing and hardware seem to be well fixed. No signs of loosen ing of the screws or the hardware. Fluids 300 cc Specimens Left leg joint fluid sent for culture x2. Tissue from left leg sent for tissue culture x1 Drains None. Anesthesia Type General Complications none Disposition Accompanied Patient To Recovery: No Disposition: Recovery Room Indications Patient is a 59-year-old female with multiple medical comorbidities who sustained a fall about 6 weeks ago. She had at that tib-fib fracture and underwent open reduction and internal fixation. Her surgery was uneventful and normal and she had a pretty normal postoperative. At that she had fairly slow wound healing. She was placed in a short leg nonwalking/nonweightbearing cast. She was just recently admitted to the hospital with concerns of sepsis. She had an infectious work-up which was extensive which was negative. We removed her cast and she had an obvious infected left leg wound. Patient indicated for irrigation debridement. She is fully aware that with her multiple medical comorbidities this the leg infections pretty extensive with a questionable prognosis and likely need for a possible amputation in the future. She went to proceed with attempting to preserve this limb which is an entirely appropriate at this point. Description of Procedure The patient was taken to the operating, identified, placed on the operating table supine position but all contractors were properly padded. Patient's been receiving scheduled antibiotics. A general anesthetic was implemented. A left thigh turn was then placed for the left lower extremity dressing was then removed. The left lower extremities then scrubbed with Hibiclens and prepped with ChloraPrep and draped in usual sterile fashion. The left leg was elevated but not exsanguinated. The tourniquet was placed at 300 mmHg. The previous incision was opened up to its entirety. There was gross pus within the wound but mostly under the anterior medial flap over the tibia. The hardware was in prior anterior medial and anterior lateral tibia was exposed. I debrided this extensively with use of a curette as well as a rongeur. We spent quite a bit of time debriding this. We also did not want to devascularize the tissues too much. Once the debridement was completed I irrigated the wound extensively with pulsatile lavage solution. I then irrigated the wound with full-strength Dakin solution and left to sit in the wound for about 4 to 5 minutes. I then irrigated this out with pulsatile lavage. I then irrigated the leg with a dilute Betadine solution. We left this in the leg for about 3 minutes. Once this was complete we irrigated the wound again. The tourniquet was then let down for tourniquet time of 23 minutes. Hemostasis assured use electrocautery. I did sprinkle a total of 2 g of vancomycin and the wound around the hardware as well around the anterior medial flap. The skin was then closed with combination 1 PDS suture and 3-0 nylon suture in a simple fashion. Leg was then cleaned dried and a sterile dressing both Xeroform, 4 x 4's, sterile ABD pad, Kerlix wrap, James bandage were applied. Patient then brought out of general anesthesia and transferred to the recovery room in stable condition. Patient tolerated the procedure well there are no particular complications. The status of this left lower extremity is still quite questionable considering the extensive nature of this infection this diabetic patient with multiple medical comorbidities. Yahir Valentino, my physician creative assistant, was present for the entire procedure. His assistance was essential and required for proper patient positioning, prepping and draping, retraction, surgical exposure, debridement of the wound, closure of the wound, and placement of the sterile bandage. I attest to the content of the Intraoperative Record and any orders documented therein. Any exceptions are noted below.
[2020-09-30] MEDS ORDERED: ATROPINE SULFATE 0.1 MG/ML 10ML SYR IV PRN (10:32)
[2020-09-30] MEDS ORDERED: ONDANSETRON INJ 2 MG/ML 2 ML VIAL IV PRN ×2 (10:32→12:53)
[2020-09-30] MEDS ORDERED: ePHEDrine sulfate 50 MG/ML AMP IV PRN (10:32)
[2020-09-30] MEDS ORDERED: HYDROmorphone INJ 1 MG/ML SYRINGE IV PRN (10:32)
[2020-09-30 10:56] LABS: Basophils # (auto) 0.04 K/uL (0-0.2); Basophils % (auto) 0.2 %; Eosinophils # (auto) 0.49 K/uL (0-0.5); Eosinophils % (auto) 2.8 %; Hematocrit (blood only) 26.6 % (37-47); Hemoglobin 8.6 g/dL (12.0-16.0); Immature Granulocytes # (auto) 0.19 K/uL (0.00-0.02); Immature Granulocytes % (auto) 1.1 %; Lymphocytes # (auto) 1.63 K/uL (1.2-3.4); Lymphocytes % (auto) 9.4 %; Mean Corpuscular Hemoglobin 28.2 pg (25-34); Mean Corpuscular Hgb Conc 32.3 g/dL (32-36); Mean Corpuscular Volume 87.2 fL (80-100); Monocytes # (auto) 1.76 K/uL (0.11-0.59); Monocytes % (auto) 10.1 %; Neutrophils # (auto) 13.25 K/uL (1.4-6.5); Neutrophils % (auto) 76.4 %; Nucleated RBC # (auto) 0.17 K/uL (0-0); Platelet Count 374 K/uL (130-400); RDW Coefficient of Variation 15.8 % (11.5-14.5); RDW Standard Deviation 50.3 fL (36.4-46.3); Red Blood Count 3.05 M/uL (4.2-5.4); White Blood Count 17.36 K/uL (4.8-10.8)
[2020-09-30] MEDS: PHENYLEPHRINE 100MCG/ML 5ML SYR IV PRN ×3 (11:14→12:01)
[2020-09-30 11:38] LABS: Albumin Level 1.8 gm/dl (3.4-5.0); BUN Creatinine Ratio 9.5 (10-20); Calcium 8.5 mg/dl (8.5-10.1); Creatinine Clr Calc Pharmacy 53.3 ml/min; Est GFR (African American) 45.9; Est GFR (Non-African American) 39.6; Potassium 3.9 mmol/L (3.5-5.1)
[2020-09-30] MEDS: INSULIN ASPART 100 UNITS/ML 3 ML PEN SC SCH ×4 (11:58→20:32)
[2020-09-30] MEDS: DOCUSATE SODIUM 100 MG CAP PO SCH ×2 (11:59→21:12)
[2020-09-30] MEDS: INSULIN GLARGINE SOLOSTAR 100 UNITS/ML 3 ML PEN SC SCH (11:59)
[2020-09-30] MEDS: POLYETHYLENE (MIRALAX) 17 GM PACK PO SCH ×2 (12:00→21:12)
[2020-09-30 12:04] LABS: Albumin Globulin Ratio 0.4 (0.9-2); Globulin 5.1 gm/dl (2.5-4.0); Total Protein 6.9 gm/dl (6.4-8.2)
--- NOTE | 2020-09-30 12:23 | Anesthesiology Progress Note ---
Date of Service September 30, 2020 Anesthesia Post Procedure Vital Signs Vital Signs: Temp Pulse Pulse Pulse Resp BP BP 09/30/20 12:15 122 H 26 H 84/56 L 09/30/20 12:05 134 H 22 79/51 L 09/30/20 11:55 125 H 24 68/47 L 09/30/20 11:45 127 H 24 72/61 L 09/30/20 11:35 126 H 28 H 86/60 L 09/30/20 11:25 137 H 24 88/42 L 09/30/20 11:15 134 H 23 70/49 L 09/30/20 11:05 137 H 25 H 97/57 L 09/30/20 10:55 127 H 24 75/60 L 09/30/20 10:45 132 H 27 H 87/51 L 09/30/20 10:35 127 H 22 92/55 L 09/30/20 10:30 138 H 20 87/59 L 09/30/20 10:26 120 H 26 H 09/30/20 10:25 130 H 26 H 124/50 L 09/30/20 10:20 119 H 25 H 72/59 L 09/30/20 10:17 36.7 C 131 H 20 71/47 L 09/30/20 08:33 36.6 C 130 H 28 H 99/68 L 09/30/20 07:06 106 H 34 H 09/30/20 04:00 36.8 C 127 H 20 109/73 09/30/20 00:01 129 H 09/29/20 23:00 36.6 C 143 H 18 102/65 09/29/20 19:33 36.3 C L 123 H 27 H 131/64 09/29/20 16:21 98 H 09/29/20 16:12 36.9 C 99 H 20 112/62 Pulse Ox 09/30/20 12:15 98 09/30/20 12:05 96 09/30/20 11:55 96 09/30/20 11:45 96 09/30/20 11:35 95 09/30/20 11:25 95 09/30/20 11:15 96 09/30/20 11:05 95 09/30/20 10:55 95 09/30/20 10:45 95 09/30/20 10:35 97 09/30/20 10:30 97 09/30/20 10:26 98 09/30/20 10:25 97 09/30/20 10:20 95 09/30/20 10:17 96 09/30/20 08:33 97 09/30/20 07:06 95 09/30/20 04:00 96 09/30/20 00:01 09/29/20 23:00 96 09/29/20 19:33 90 09/29/20 16:21 09/29/20 16:12 95 Pain Intensity Left Lower Leg: Pain Intensity: 4 Transfer of Care Handoff Completed per policy Notes Mental Status: alert / awake / arousable Patient Amnestic to Procedure: Yes Nausea / Vomiting: adequately controlled Pain: adequately controlled Airway Patency, RR, SpO2: stable & adequate BP & HR: stable & adequate Hydration State: stable & adequate Anesthetic Complications: no major complications apparent
[2020-09-30] MEDS ORDERED: bisacodyL 10 MG SUPP PR PRN (12:53)
[2020-09-30] MEDS ORDERED: SODIUM CHLORIDE 0.9% 1000ML 1,000 ML IV SCH (12:53)
[2020-09-30] MEDS ORDERED: NALOXONE HCL 0.4 MG/1 ML VIAL/CARP IV PRN (12:53)
[2020-09-30] MEDS ORDERED: METOCLOPRAMIDE HCL INJ 5 MG/ML 2 ML VIAL IV PRN (12:53)
[2020-09-30] MEDS ORDERED: MAGNESIUM HYDROXIDE SUSP 30 ML UDC PO PRN (12:53)
[2020-09-30] MEDS ORDERED: ALUMINUM/MAGNESIUM SUSP 30 ML UDC PO PRN (12:53)
[2020-09-30] MEDS: traMADol HCL 50 MG TABLET PO PRN (12:58)
[2020-09-30] MEDS: traZODone HCL 100 MG TAB PO SCH (13:00)
[2020-09-30] MEDS: QUEtiapine FUMARATE 100 MG TABLET PO SCH (13:00)
[2020-09-30] MEDS: METOPROLOL SUCC 50MG EXT REL TAB PO SCH (13:00)
[2020-09-30] MEDS: ATORVASTATIN 10 MG TAB PO SCH (13:00)
[2020-09-30] MEDS: THIAMINE HCL 100 MG TAB PO SCH (13:00)
[2020-09-30] MEDS: SACUBITRIL-VALSARTAN 24-26 MG TAB PO SCH ×2 (13:00→21:11)
[2020-09-30] MEDS: UMECLIDINIUM/VILANTEROL 62.5/25MCG 7 PUFFS/INHALER INH SCH (13:01)
[2020-09-30] MEDS: PREGABALIN 100 MG CAP PO SCH ×2 (13:03→21:11)
[2020-09-30] MEDS ORDERED: PHARMACY GLYCEMIC MGMT CONSULT PRN (13:16)
[2020-09-30] MEDS: VANCOMYCIN HCL 1,500 MG in SODIUM CHLORIDE 0.9% 500 ML IV SCH (13:16)
[2020-09-30] MEDS: HYDROmorphone INJ 0.5 MG/0.5 ML SYR IV PRN (13:21)
--- NOTE | 2020-09-30 13:28 | Pharmacy Report ---
Glycemic Ortho Sign Off Note - Date of Service September 30, 2020 - Scope Glycemic Pharmacist consulted for glycemic control and to write orders per [facility] inpatient glycemic control protocol. - Objective Accuchecks BSG (last 24hrs):: 09/29/20 09/29/20 09/30/20 16:26 20:17 07:32 Glucose POC Glucose 110 H 133 H 111 H 09/30/20 09/30/20 09/30/20 08:14 10:18 10:41 Glucose 113 H POC Glucose 114 H 125 H 09/30/20 13:01 Glucose POC Glucose 90 - Assessment * Pt is maintained on oral antidiabeticagent[s]as anoutpatient with excellent control per recent A1c * Oral agents are not recommended for inpatient use d/t drug interactions, changing PO intake, and difficulty titrating for acute hyper/hypoglycemia. * Recommended regimen for inpatient use is SQ insulin * Low stress weight based insulin dosing appropriate since patient has minimal risk factors for insulin resistance (i.e. no steroids). * Appropriate to DC insulin and resume outpatient antidiabetic regimen at discharge * Goal is to maintain BSGs <200 mg/dl (ideally <150 mg/dl) to prevent post op complications - Plan For Inpatient Glycemic Control * Basal insulin * Not needed based on A1c, pre-op BSGs, and minimal risk factors for insulin resistance * Bolus insulin * Utilize low stress weight based NovoLog parameters per scale ACHS * Pharmacy has entered glycemic orders and is signing off of the glycemic consult. We will no longer be making adjustments to inpatient regimen. Please feel free to re-consult if needed. Thank you.
--- NOTE | 2020-09-30 14:00 | Pharmacy Report ---
Pharmacy Abx Dose Short Note - Date of Service September 30, 2020 - Assessment & Plan Assessment 59 year old F receiving vanco/cefepime for treatment of SSTI Day # 3 of antimicrobial therapy. Plan Vancomycin * Trough level came back supratherapeutic today at 27 mcg/ml (goal 5-20 mcg/ml) * Placed 1000 vancomycin dose on hold - will adjust dosing * Estimated kinetics based upon level - t1/2~16 hr, ke~0.04 - plan to resume vancomycin when estimated level closer to ~15 mcg/ml * Plan to start vancomycin 1000 mg iv q 18 hr - will need to monitor closely as patient likely accumulating vancomycin d/t BMI >35 kg/m2 * I&D today - cultures pending Pharmacy will continue to follow and will adjust dose/frequency as necessary. Thank you.
[2020-09-30] MEDS ORDERED: LACTATED RINGER'S 250 ML IV ONE ×3 (14:49→18:08)
--- NOTE | 2020-09-30 15:50 | Billing Data ---
Date of Service September 30, 2020 Coding Level of Care Code 43832 Subseq Hosp Care Lvl 3
[2020-09-30] MEDS: DIGOXIN 0.125 MG TAB PO SCH (16:22)
[2020-09-30] MEDS: FERROUS GLUCONATE 324 MG TAB PO SCH (16:23)
[2020-09-30] MEDS: ASCORBIC ACID 500 MG TAB PO SCH (16:23)
[2020-09-30] MEDS ORDERED: 0.2 MICRON FILTER SET 1 EA IV ONE ×2 (16:38)
[2020-09-30] MEDS ORDERED: STAT IV Infusion **Titration per Protocol STA (16:38)
[2020-09-30] MEDS ORDERED: AMIODARONE / D5W 150 MG/100 ML BAG IV STA ×2 (16:38→16:54)
[2020-09-30] MEDS ORDERED: AMIODARONE IV BOLUS & DRIP IV STA (16:38)
[2020-09-30] MEDS ORDERED: AMIODARONE 360MG / 200ML D5W IV ONE (16:54)
[2020-09-30] MEDS ORDERED: AMIODARONE 150MG / 100ML D5W IV ONE (16:54)
[2020-09-30] MEDS ORDERED: AMIODARONE / D5W 360 MG/200 ML BAG IV ONE (17:15)
[2020-09-30] MEDS ORDERED: SODIUM CHLORIDE 0.9% 1000ML 250 ML IV ONE (19:46)
[2020-09-30] MEDS: ACETAMINOPHEN 325 MG TAB PO PRN (19:48)
[2020-09-30] MEDS ORDERED: DOCUSATE SODIUM 100 MG CAP PO SCH (21:00)
[2020-09-30] MEDS: hydrOXYzine HCl 25 MG TAB PO SCH (21:12)
[2020-09-30] MEDS: QUEtiapine FUMARATE 200 MG TAB PO SCH (21:12)
[2020-09-30] MEDS: SENNA 8.6 MG TAB PO SCH (21:13)
[2020-09-30 21:53] LABS: Hematocrit (blood only) 24.6 % (37-47); Hemoglobin 8.1 g/dL (12.0-16.0)
[2020-09-30] MEDS ORDERED: SODIUM CHLORIDE 0.9% 250 ML IV PRN (22:31)
[2020-09-30] MEDS: AMIODARONE / D5W 360 MG/200 ML BAG IV SCH (23:19)
[2020-10-01] MEDS ORDERED: SODIUM CHLORIDE 0.9% 1000ML 500 ML IV ONE (00:56)
--- NOTE | 2020-10-01 01:25 | Communication Note ---
Date of Service: October 01, 2020 Called to patient's bedside this shift by nursing for hypotension 80s/50s with tachycardia. Hgb 8.6 this admission and procedure earlier today, so Hgb rec hecked and was 8.1. Given hemodynamic instability (tachycardia, hypotension) did give 1u PRBCs. Patient has had soft BPs since admission (suspected to be sepsis secondary to infected ORIF from tib/fib fracture repair one month ago). Patient has a history of CHF with EF 20-25%. Despite several small fluid boluses (250cc x4 today, and 1L on admission) she has had soft BPs, lowest most recently of 70 s/40s. Asymptomatic and sleeping, able to arouse and is alert in bed. No complaints of chest pain, SOB, palpitations, dizziness. Decision was made to transfer patient to ICU for pressure support. Warren Metcalf made aware and coming to see patient. Patient is aware of the need for transfer. Case was discussed with Dr. Kenny. Resident Activity Tracking Resident Involvement: Resident Care Provided Care Provided: Adult Hospital Medicine
[2020-10-01] MEDS ORDERED: VANCOMYCIN HCL 1,000 MG in SODIUM CHLORIDE 0.9% 250 ML IV SCH (02:00)
[2020-10-01] MEDS ORDERED: LEVALBUTEROL HCL 0.63 MG/3 ML NEB INH PRN (02:16)
[2020-10-01] MEDS ORDERED: ICU PROTOCOL FOR HYPERGLYCEMIA PRN (02:16)
[2020-10-01 02:17] LABS: INR 1.1 (0.9-1.1); Partial Thromboplastin Ratio 1.1; Partial Thromboplastin Time 29.2 Seconds (21.0-31.0); Prothrombin Time 11.4 Seconds (9.0-12.0)
[2020-10-01 02:21] LABS: Albumin Level 1.7 gm/dl (3.4-5.0); Creatinine Clr Calc Pharmacy 52.6 ml/min; Est GFR (African American) 45.1; Est GFR (Non-African American) 38.9; Potassium 3.9 mmol/L (3.5-5.1)
--- NOTE | 2020-10-01 02:23 | Critical Care Consultation ---
Date of Consultation October 01, 2020 Assessment & Plan (1) Sepsis: Reason Critically Ill: 59-year-old female presents to the ICU with hypotension secondary to sepsis requiring vasopressor support Neuro - Schizoaffective disorder: We will need to hold Seroquel for this morning as patient has prolonged QTC 540 Cardiac - Hypotensionlikely secondary to sepsis as patient admitted with hardware infection from tib-fib -Patient also has systolic heart failure with EF 25% -Cortisol pending -Hemoglobin with mild downtrend from 10-8.1 which is likely dilutional,no signs of bleeding. did receive 1 unit RBC on PCU but was hypotensive prior to this -Careful with IV fluid resuscitation due to heart failure -Hold antihypertensives and Lasix for now -Starting on norepinephrine for MAP greater than 65 A. fib with RVRcurrently rate controlled on monitor -Holding Xarelto following surgical intervention and anemia -holding metoprolol for hypotension, continue digoxin -Continue amnio drip at 0.5 for now, mindful of prolonged QTC but currently limited on rate control medications Prolonged QTCholding Seroquel -Repeat EKG this a.m. -We will maximize electrolytes and continuous monitoring on telemetry Respiratory - Chronic hypoxic respiratory failure/COPDcurrently maintaining oxygen saturation on 4 L nasal cannula -Lung sounds clear to auscultation -Hold on diuresis for now as patient currently hypotensive -Nebs as needed -Continuous monitoring pulse ox GI - Hepatic steatosis seen on abdominal imaging, no elevation of LFTs GERDPPI RENAL/LYTES - AKIelevated creatinine of 1.45. Likely ATN given hypotension -We will maintain maps greater than 65, started on norepinephrine -Careful with IV fluid resuscitation given heart failure -Avoid nephrotoxins and renally adjust medication - Strict I's and O's ENDO - DM type IIlast A1c 6.5 -Holding Metformin for sliding scale -ICU hyperglycemic protocol TSH within normal limits HEME - Anemiahemoglobin slightly down trended to 8.1 from 10 on admission. Patient received 1 unit RBC given hypotension -We will continue to monitor H&H closely, will transfuse if indicated -No obvious signs of bleeding, coags within normal limits, suspect some dilution from fluids versus anemia of chronic illness ID - Sepsissource likely infected hardware -GPC's in Gram stain x2 -Initial pro Kaushik elevated, will repeat pro-Kaushik and lactate -Continue cefepime and vancomycin -Follow-up cultures LINES/IV ACCESS - Peripheral IV, ultrasound-guided IV. Tentative plan for central line insertion pending labs DVT PROPHYLAXIS - SCDs, hold anticoagulation following surgical intervention for now Orthostatus post ORIF 6 weeks out for left tib-fib fracture -Underwent I&D for hardware infection earlier today -Ortho following, will follow rec -Tramadol as needed I have personally spent 40 minutes of critical care time in the direct management of this patient. This is a life/limb threatening event. This includes time spent evaluating patient, direct bedside care, chart review, placing orders, interpretation of diagnostic studies, discussion with consultants, patient, and family members, as well as other required patient management activities. This time is exclusive of all separately billable procedures, and teaching time and separate from and in addition to any other critical care service time. Thank you for allowing us to participate in the care of this patient. Please refer to my attending physician's documentation for any further recommendations. (2) 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: (3) Diabetes type 2, controlled: (4) Anxiety: (5) Atrial fibrillation with RVR: (6) COPD (chronic obstructive pulmonary disease): (7) Morbid obesity: (8) Memory impairment: (9) Gait difficulty: (10) Hepatic steatosis: (11) Chronic systolic heart failure: (12) Schizoaffective disorder: (13) GERD (gastroesophageal reflux disease): (14) ICD (implantable cardioverter-defibrillator) in place: (15) Pulmonary hypertension: (16) Chronic respiratory failure with hypoxia: (17) KIRSTIN (acute kidney injury): (18) Hypotension: History of Present Illness Attending Physician: Chito Chamberlain DO History of Present Illness Patient is a 59-year-old female with extensive past medical history including systolic heart failure, A. fib, COPD, DM type II, schizoaffective disorder, and recent admission on 08/12 where she had a tibia/fibula fracture following a fall and had an open reduction/internal fixation. She presented to the ED on 09/28 with complaints of fevers and chills and recent weakness. She was found to have hardware infection of the left tibial/fibula and underwent I&D yesterday. Overnight, patient was noted to become increasingly hypotensive. Patient was unable to receive fluid bolus due to systolic heart failure. She was noted to have a hemoglobin of 8.1 and was given 1 unit RBCs. Unfortunately, patient remains hypotensive with systolic in the 70s since being transferred to the ICU to be started on norepinephrine drip. Repeat labs pending. Currently patient is alert and oriented and feels comfortable at rest. She appears asymptomatic of hypotension on exam and denies any syncope or dizziness. She denies sore throat or cough, shortness of breath, chest pain, palpitations, abdominal pain, nausea or vomiting or diarrhea. She denies any peripheral edema or recent weight gain. She does report tenderness at the surgical site in her left lower extremity. This is an James wrap and she has good blood return to the left lower extremity and denies any numbness or tingling. Patient transferring to ICU for further management at this time. Allergies Allergy/AdvReac Type Severity Reaction Status Date / Time fentanyl Allergy Mild RASH,ITCHIN Verified 08/12/20 01:45 G oxycodone AdvReac Intermediate Verified 09/26/20 16:04 Home Medications Medication Instructions Recorded Confirmed Type hydroxyzine pamoate 50 mg PO HS 10/07/18 09/29/20 History trazodone 200 mg PO HS 10/07/18 09/29/20 History metformin 500 mg tablet 500 mg PO BID #60 tab 12/15/18 09/29/20 Rx quetiapine [Seroquel] 100 mg PO QAM 01/02/19 09/29/20 History Oxygen Home #1 ea 05/09/19 08/28/20 Rx docusate sodium 100 mg capsule 100 mg PO BID #180 cap 06/28/19 09/29/20 Rx quetiapine 400 mg tablet 400 mg PO HS tab 07/05/19 09/29/20 History miscellaneous medical supply #1 ea 07/12/19 08/28/20 Rx magnesium oxide 400 mg (241.3 mg 400 mg PO DAILY #30 tab 12/26/19 09/29/20 Rx magnesium) tablet potassium chloride 20 mEq 40 meq PO DAILY #180 tab 03/19/20 09/29/20 Rx tablet,extended release atorvastatin 10 mg tablet 10 mg PO QAM #90 tab 04/09/20 09/29/20 Rx digoxin 125 mcg (0.125 mg) tablet 125 mcg PO QAM #90 tab 04/17/20 09/29/20 Rx rivaroxaban 20 mg tablet 20 mg PO QAM #90 tab 04/17/20 09/29/20 Rx omeprazole 20 mg capsule,delayed 20 mg PO DAILYBB #90 cap 06/09/20 09/29/20 Rx release pregabalin 100 mg capsule 100 mg PO BID 30 Days #60 cap 06/23/20 09/29/20 Rx Portable Oxygen #1 ea 07/29/20 08/28/20 Rx furosemide 40 mg tablet 80 mg PO BID #120 tab 08/08/20 09/29/20 Rx acetaminophen 325 mg capsule 650 mg PO Q4H PRN cap 08/27/20 09/29/20 History sacubitril 24 mg-valsartan 26 mg 1 tab PO BID #60 tab 08/27/20 09/29/20 Rx tablet oxycodone 5 mg tablet 5 mg PO Q6H PRN #20 tab 09/01/20 09/29/20 Rx metoprolol succinate 100 mg 150 mg PO QAM #45 tab 09/02/20 09/29/20 Rx tablet,extended release 24 hr mecobalamin (vitamin B12) 1,000 500 mcg PO DAILY #15 tab 09/03/20 09/29/20 Rx mcg chewable tablet thiamine HCl (vitamin B1) 100 mg 200 mg PO DAILY #60 tab 09/03/20 09/29/20 Rx tablet umeclidinium 62.5 mcg-vilanterol 1 inh INH Q24H #60 ea 09/11/20 09/29/20 Rx 25 mcg/actuation powdr for inhalation tramadol 50 mg tablet 50 mg PO Q6 PRN #40 tab 09/23/20 09/29/20 Rx Patient History Medical History Adrenal adenoma Rt sided imaging 01/2020 Adrenal incidentaloma Asthma Atrial fibrillation Carpal tunnel syndrome CHF (congestive heart failure) 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% per echo 06/06/18; non-obstructive CAD per cath 2006 Chronic respiratory failure with hypoxia COPD (chronic obstructive pulmonary disease) Depression Diabetes type 2, controlled patient denies having diabetes, does not want further testing even though she is prescribed Metformin GERD (gastroesophageal reflux disease) GERD (gastroesophageal reflux disease) Glaucoma History of alcohol use History of pulmonary embolism History of tobacco abuse HTN (hypertension) 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 Lightheadedness Memory impairment Morbid obesity Pericardial effusion Permanent atrial fibrillation PTSD (post-traumatic stress disorder) Pulmonary embolism 2013 while living in [place] Pulmonary hypertension Restrictive lung disease Schizoaffective disorder Schizoaffective disorder Severe mitral regurgitation Tibia/fibula fracture Ventricular arrhythmia Surgical History AICD (automatic cardioverter/defibrillator) present Pacemaker S/P ORIF (open reduction internal fixation) fracture ankle, left S/P tubal ligation Family History Mother , in her 70s Lung cancer from this Congestive heart failure (CHF) Breast cancer Father No problems noted. Other Hypertension Ulcerative colitis Denies family history of Colon cancer Ovarian cancer Prostate cancer Myocardial infarction Social History Smoking Status: Former smoker Tobacco Type: Cigarettes Years Smoked: 30; Cigarettes Per Day: <1; Second Hand Exposure: No; Hx Alcohol Use: No Hx Substance Use: No Preferred Language: Occitan Communication Ability: Effective Visual Impairment: No Limitations Hearing Ability: Normal Payroll Specialist Required: No Beliefs That Will Affect Care: None marital status: marital status details: 5 kids Current Living Situation: Alone and Other Current Living Situation Comment: personal caregivers 4 days a week for 2 hours a day. 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 Other Information That Helps Us Care for You: No other: lives in [place] Feels Safe at Home: Yes Safety Concerns: Feels Safe At This Time Childhood Exposure to Second-Hand Smoke: Yes Dental Care, Regularly: No Physical Activity Frequency: Does not Exercise Assistive Devices: Oxygen - Continuous Review of Systems Review of Systems: All systems reviewed & are unremarkable except as noted in HPI & below Physical Exam Constitutional: + obese, cooperative and comfortable Eyes: PERRL, conjunctivae normal, anicteric sclerae ENMT: external ear and nose normal, oropharynx normal Neck: trachea midline, no thyromegaly Respiratory: normal respiratory effort, lungs clear to auscultation Cardiovascular: Rate/Rhythm: + tachycardic and + irregularly irregular Vessels: no JVD Extremities: normal capillary refill; no edema Gastrointestinal (Abdomen): normal bowel sounds, soft, nontender, no hepatosplenomegaly Musculoskeletal: no cyanosis or clubbing, extremities motor strength 5/5 Skin: no rashes, warm and dry Neurologic: PERRL, EOMI, accommodation nl, no face palsy, no dysarthria Psychiatric: A+Ox3, euthymic affect Genitourinary: Indwelling Uribe catheter Results & Data Results & Data ([facility]) Vital Signs (Past 12 Hours) Vital Signs Temp Pulse Pulse Resp BP BP Pulse Ox 10/01/20 01:51 36.5 C 107 H 20 88/65 L 93 10/01/20 00:51 36.8 C 97 H 24 72/43 L 97 10/01/20 00:21 37.0 C 116 H 26 H 82/59 L 97 10/01/20 00:06 37.0 C 114 H 20 100/71 96 09/30/20 23:46 36.6 C 120 H 20 94/62 L 97 09/30/20 23:29 110 H 09/30/20 23:26 36.4 C L 109 H 32 H 95/66 L 98 09/30/20 21:34 82/58 L 09/30/20 19:16 36.9 C 116 H 30 H 75/59 L 95 09/30/20 18:11 118 H 104/83 09/30/20 17:20 122 H 14 116/69 95 09/30/20 16:22 127 H 09/30/20 15:23 36.3 C L 126 H 18 99/64 L 97 09/30/20 14:23 125 H 14 108/82 95 Coding Level of Care Code Critical Care 1st 30-74 mins Diagnoses Sepsis A41.9 Sepsis acute organ dysfunction status: without acute organ dysfunction Sepsis type: sepsis due to unspecified organism 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 T84.623A Diabetes type 2, controlled E11.8 Diabetes mellitus alf insulin use: without alf use Diabetes mellitus complication status: with unspecified complications Anxiety F41.9 Atrial fibrillation with RVR I48.91 COPD (chronic obstructive pulmonary disease) J44.9 Morbid obesity E66.01 Memory impairment R41.3 Gait difficulty R26.9 Hepatic steatosis K76.0 Chronic systolic heart failure I50.22 Schizoaffective disorder F25.0 Schizoaffective disorder type: bipolar GERD (gastroesophageal reflux disease) K21.9 Esophagitis presence: esophagitis presence not specified ICD (implantable cardioverter-defibrillator) in place Z95.810 Pulmonary hypertension I27.20 Chronic respiratory failure with hypoxia J96.11 KIRSTIN (acute kidney injury) N17.9 Hypotension I95.9 (1) Diabetes type 2, controlled Diabetes mellitus manager intermediate insulin use: without manager intermediate use Diabetes mellitus complication status: with unspecified complications Qualified Code(s): E11.8 - Type 2 diabetes mellitus with unspecified complications (2) Sepsis Sepsis acute organ dysfunction status: without acute organ dysfunction Sepsis type: sepsis due to unspecified organism Qualified Code(s): A41.9 - Sepsis, unspecified organism (3) Schizoaffective disorder Schizoaffective disorder type: bipolar Qualified Code(s): F25.0 - Schizoaffective disorder, bipolar type (4) GERD (gastroesophageal reflux disease) Esophagitis presence: esophagitis presence not specified Qualified Code(s): K21.9 - Gastro-esophageal reflux disease without esophagitis
[2020-10-01 02:24] LABS: Albumin Globulin Ratio 0.3 (0.9-2); Bilirubin,Total 0.6 mg/dl (0.2-1); Total Protein 6.7 gm/dl (6.4-8.2)
[2020-10-01] MEDS ORDERED: STAT IV Infusion **Titration per Protocol STA (02:57)
[2020-10-01] MEDS ORDERED: NOREPINEPHRINE/D5W 8 MG/508 ML BAG IV SCH (03:00)
[2020-10-01] MEDS: ALBUMIN 25% 12.5 GM/50 ML VIAL IV SCH ×4 (03:09→05:54)
[2020-10-01] MEDS ORDERED: HYDROCORTISONE SOD 100 MG in SYRINGE 0 ML IV SCH (04:00)
[2020-10-01 05:38] LABS: Basophils # (auto) 0.02 K/uL (0-0.2); Basophils % (auto) 0.2 %; Eosinophils # (auto) 0.67 K/uL (0-0.5); Eosinophils % (auto) 5.2 %; Hematocrit (blood only) 24.9 % (37-47); Hemoglobin 8.1 g/dL (12.0-16.0); Immature Granulocytes # (auto) 0.14 K/uL (0.00-0.02); Immature Granulocytes % (auto) 1.1 %; Lymphocytes # (auto) 1.41 K/uL (1.2-3.4); Mean Corpuscular Hemoglobin 28.5 pg (25-34); Mean Corpuscular Hgb Conc 32.5 g/dL (32-36); Mean Corpuscular Volume 87.7 fL (80-100); Mean Platelet Volume 8.9 fL (7.4-10.4); Monocytes # (auto) 0.91 K/uL (0.11-0.59); Monocytes % (auto) 7.1 %; Neutrophils # (auto) 9.66 K/uL (1.4-6.5); Neutrophils % (auto) 75.4 %; Nucleated RBC # (auto) 0.15 K/uL (0-0); Nucleated RBC % (auto) 1.2 %; Platelet Count 341 K/uL (130-400); RDW Coefficient of Variation 15.8 % (11.5-14.5); RDW Standard Deviation 50.8 fL (36.4-46.3); Red Blood Count 2.84 M/uL (4.2-5.4); White Blood Count 12.81 K/uL (4.8-10.8)
[2020-10-01 06:06] LABS: BUN Creatinine Ratio 11.7 (10-20); Calcium 7.8 mg/dl (8.5-10.1); Creatinine Clr Calc Pharmacy 60.9 ml/min; Est GFR (African American) 49.2; Est GFR (Non-African American) 42.4; Magnesium 2.2 mg/dl (1.8-2.4); Potassium 3.7 mmol/L (3.5-5.1)
[2020-10-01 06:07] LABS: Phosphorus 4.9 mg/dl (2.5-4.9)
[2020-10-01] MEDS: PANTOprazole 40 MG TAB PO SCH (06:16)
[2020-10-01 07:18] LABS: Fibrinogen 653 mg/dl (184-400)
--- NOTE | 2020-10-01 07:34 | Hospitalist Progress Note ---
Date of Service October 01, 2020 Assessment & Plan (1) Sepsis: #Sepsis secondary to left lower extremity infection On admission meeting SIRS criteria, patient tachycardic, tachypneic, leukocytosis with WBC=23.69 with neutrophil predominance and bands, thrombocytosis with lgwgfboax=423, suspect acute phase reaction in setting of infection. Elevated lactate of 3.2 which improved slighlty to 2.5 - patient with chronically elevated lactate. Unclear source of infection. CT chest with no PNA. UA and blood cultures pending. She does have slight increase in LFTs with T-bili of 1.9, AP of 293 suggesting possible GI source, however, no abdominal pain on deep palpation. No RUQ pain. Negative Clarke's sign. Additional source of infection could be left ankle - she is 1 month out from her ORIF, hardware in place. No signs or symptoms of skin infection in her left lower extremity, right upper quadrant ultrasound demonstrating hepatic steatosis. Patient endorsing diffuse abdominal tenderness today on exam, obtain CT abdomen pelvis with contrast, negative study with the exception of extensive stool burden. X-ray of her left ankle showing no obvious signs of infection, repeat lactate demonstrated downtrending. Source identified left lower extremity, evaluated by orthopedics 09/29, to the OR 09/30. Cultures continue to demonstrate any growth today continue empiric therapy pending instrumentation and sensitivities -Source identified, left lower extremities -Orthopedics consulted -OR for irrigation and debridement -pod# s/p I&D LLE -> Gram stain from the OR demonstrating GPC's -Continue empiric therapy with vancomycin and Cefepime, narrow pending culture resolution and sensitivities -Cultures pending -Trend CBC -wbc:23.69->21.77->17.36->12.8 -Tylenol PRN fever #A. fib with RVR Patient with AF with RVR. HR 140-170 here. Minimally responsive to IVF. Digoxin subtherapeutic at 0.5. Long history of A. fib, difficult to control. Suspect secondary to underlying sepsis and will improve with source control and improvement infection. 09/30 patient having difficult to control blood pressures and heart rate postoperatively. Attempted multiple boluses of 250 mL without success, started amiodarone drip at approximately 1700. Evening resident obtain repeat H&H and attempted to provide a unit of blood when the patient had an acute episode of hypotension necessitating transfer to the ICU. Overnight in the ICU as her maps have maintained 65, there is been no need for pressor therapy thus far. -Continue amiodarone -rate controlled -Holding Metoprolol succinate 150mg po daily -Continue Digoxin 0.125mg po daily -Holding Xarelto 20mg po daily #Hypotension thought to be secondary to relative adrenal insufficiency -Responded to hydrocortisone 100 mg, continue IV every 8 hours -Will attempt to wean when she becomes more stable. #Fracture of tibia and fibula Patient with cast in place. She follows with Ortho -Tramadol 50mg po q6 hours PRN -Consulted orthopedics, appreciate recs -See above #Anxiety/mood disorder/schizoaffective disorder Chronic. Patient follows at [facility] -Continue Hydroxyzine 50mg po qHS -Holding Seroquel secondary to prolonged QTC #COPD Patient with no cough or wheeze. Seems to be compensated -Continue Umeclidinium/Vilanterol -Xopenex neb PRN #CHF Patient appears to be well compensated, not overtly volume overloaded -Holding metoprolol -Holding Entresto BID -Cautious use of fluids in presumed sepsis with close monitoring of volume status -Holding Lasix PO for now #Gerd Chronic -Continue Protonix 40mg po daily #Diabetes type 2 Controlled. Last Hgb A1C = 6.5 on 08/12/20 -Hold Metformin while hospitalized -Lantus 5u BID -ISS -Goal blood sugar 100 - 140 -Continue Lyrica 100mg po BID for neuropathy #Hypertension Blood pressure stable -Holding Metoprolol -Holding Entresto -Monitor FENa: Advance diet as tolerated status post surgery Code Status: Full DVT PPX: Rivaroxaban 20 mg p.o. daily PT/OT: When medically stable Dispo: PCU Fabiano Sanchez MD PGY 2, FCM This chart was completed utilizing [employer] voice recognition software. Grammatical errors, random word insertions, pronoun errors, and in complete sentences are an occasional consequence of the system. Any questions or concerns about the content, text, or information contained within the body of this dictation should be addressed directly to the physician for clarification. (2) Atrial fibrillation with RVR: (3) Diabetes type 2, controlled: (4) Fracture of tibia and fibula: (5) Anxiety: (6) COPD (chronic obstructive pulmonary disease): (7) Chronic systolic heart failure: (8) Schizoaffective disorder: (9) GERD (gastroesophageal reflux disease): (10) HTN (hypertension): Admission and Anticipated Discharge Date Admission Date: September 28, 2020 Supervising Physician Co-Signing Physician Notes I personally examined the patient and verified all eugene points of history and exam, discussed case, and agree with decision making with Dr Sanchez. No new issues identified today, after overnight with blood pressure being low, has improved nicely with addition of hydrocortisone. Patient sleeping comfortably, no distress Vitals noted, resting comfortably no distress. HEENT normocephalic atraumatic mucous membranes moist. Breathing unlabored no accessory muscle use good effort. Skin shows no rashes no pallor or icterus. Neuro shows no focal deficits at rest. Sepsisafter further review, was in fact septic ankle/incisional infectionthis has been cleared out operatively, continue current antibiotics awaiting cultures, probably will be able to DC cefepime, once identification and sensitivities are available, can start to work towards longer-term antibiotic regimen. Hypotensionafter review appears to have been due to relative adrenal insufficiency. Improved nicely on hydrocortisone IV. Continue this for now. Look into what root causes may be driving her adrenal insufficiency, and question whether or not she may need some degree of chronic treatment and or endocrine follow-up as an outpatient. A. fib/RVRrate now controlled, appreciate orthopedics inputMay resume [place] tomorrow Chronic hypoxic respiratory failurearound her baseline oxygen requirement, breathing has been stable Deep sleepshe notes a sleep study a year ago and recalls she did not need CPAP then, may be worth repeating given how slow she was to wake at the bedside. Continue to follow. Subjective Patient lying in bed this morning in no acute distress. Patient reports feeling anxious last night during the commotion while being transferred to the ICU. Patient endorses sleeping well after that. Patient reports at night she wakes up and feels sweaty at times, she is tolerating her diet, voiding and stooling. Today her mental status seems significantly. All questions answered acute concerns related to downgrade from the ICU. Physical Exam Physical Exam: General: Lying in bed in no acute distress HEENT: Normocephalic atraumatic Neck: Normal to visual inspection Cardiac: Irregularly irregular rhythm tachycardic, 1+ pedal edema, negative calf tenderness Respiratory: Clear to auscultation bilaterally with symmetrical chest expansion I did not appreciate any significant wheezes, rales, rhonchi, GI: Soft nontender nondistended Neuro: Alert and oriented x4, mental status significantly improved from prior Psych: Calm and cooperative with interview Results & Data Results & Data ([facility]) Vital Signs (Past 12 Hours) Vital Signs Temp Pulse Pulse Resp BP BP Pulse Ox 10/01/20 06:30 94 H 22 101/77 93 10/01/20 06:00 95 H 19 89/60 L 94 10/01/20 05:30 102 H 22 96/77 L 93 10/01/20 05:00 106 H 21 102/84 93 10/01/20 04:30 105 H 20 107/51 L 94 10/01/20 04:00 94 H 21 94/68 L 94 10/01/20 03:47 36.7 C 96 H 22 95/58 L 95 10/01/20 03:30 92 H 19 86/48 L 97 10/01/20 03:00 102 H 20 77/54 L 95 10/01/20 02:51 104 H 22 78/65 L 95 10/01/20 02:16 10/01/20 02:00 105 H 18 79/59 L 96 10/01/20 01:51 36.5 C 107 H 20 88/65 L 93 10/01/20 00:51 36.8 C 97 H 24 72/43 L 97 10/01/20 00:21 37.0 C 116 H 26 H 82/59 L 97 10/01/20 00:06 37.0 C 114 H 20 100/71 96 09/30/20 23:46 36.6 C 120 H 20 94/62 L 97 09/30/20 23:29 110 H 09/30/20 23:26 36.4 C L 109 H 32 H 95/66 L 98 09/30/20 21:34 82/58 L Pulse Ox 10/01/20 06:30 10/01/20 06:00 10/01/20 05:30 10/01/20 05:00 10/01/20 04:30 10/01/20 04:00 10/01/20 03:47 10/01/20 03:30 10/01/20 03:00 10/01/20 02:51 10/01/20 02:16 96 10/01/20 02:00 10/01/20 01:51 10/01/20 00:51 10/01/20 00:21 10/01/20 00:06 09/30/20 23:46 09/30/20 23:29 09/30/20 23:26 09/30/20 21:34 Laboratory Results 10/01/20 10/01/20 10/01/20 Range/Units 07:29 06:29 06:19 WBC (4.8-10.8) K/uL RBC (4.2-5.4) M/uL Hgb (12.0-16.0) g/dL Hct (37-47) % MCV (80-100) fL MCH (25-34) pg MCHC (32-36) g/dL RDW Std Deviation (36.4-46.3) fL RDW Coeff of Logan (11.5-14.5) % Plt Count (130-400) K/uL MPV (7.4-10.4) fL Immature Gran % (Auto) % Neut % (Auto) % Lymph % (Auto) % Linn % (Auto) % Eos % (Auto) % Baso % (Auto) % Neut # (Auto) (1.4-6.5) K/uL Lymph # (Auto) (1.2-3.4) K/uL Linn # (Auto) (0.11-0.59) K/uL Eos # (Auto) (0-0.5) K/uL Baso # (Auto) (0-0.2) K/uL Immature Gran # (Auto) (0.00-0.02) K/uL Absolute Nucleated RBC (0-0) K/uL Nucleated RBC % (auto) % ESR (0-30) mm/hr PT (9.0-12.0) Seconds INR (0.9-1.1) APTT (21.0-31.0) Seconds PTT Ratio Fibrinogen 653 H (184-400) mg/dl Sodium (136-145) mmol/L Potassium (3.5-5.1) mmol/L Chloride (98-107) mmol/L Carbon Dioxide (21-32) mmol/L Anion Gap (3-11) BUN (7-18) mg/dl Creatinine (0.6-1.2) mg/dl Est Cr Clr Drug Dosing ml/min Est GFR ( Amer) Est GFR (Non-Af Amer) BUN/Creatinine Ratio (10-20) Glucose (70-99) mg/dl POC Glucose 122 H 131 H (70-99) mg/dl Lactate (0.4-2.0) mmol/L Calcium (8.5-10.1) mg/dl Phosphorus (2.5-4.9) mg/dl Magnesium (1.8-2.4) mg/dl Total Bilirubin (0.2-1) mg/dl AST (15-37) U/L ALT (12-78) U/L Alkaline Phosphatase (45-117) U/L Total Protein (6.4-8.2) gm/dl Albumin (3.4-5.0) gm/dl Globulin (2.5-4.0) gm/dl Albumin/Globulin Ratio (0.9-2) Procalcitonin (0-0.5) ng/ml Random Cortisol mcg/dl Nasal Screen MRSA (PCR) Vancomycin Trough (See Comment) mcg/ml Random Vancomycin mcg/ml Digoxin (0.8-2.0) ng/ml Blood Type Rho(D) Type Antibody Screen Crossmatch 10/01/20 10/01/20 10/01/20 Range/Units 06:19 05:22 05:22 WBC 12.81 H (4.8-10.8) K/uL RBC 2.84 L (4.2-5.4) M/uL Hgb 8.1 L (12.0-16.0) g/dL Hct 24.9 L (37-47) % MCV 87.7 (80-100) fL MCH 28.5 (25-34) pg MCHC 32.5 (32-36) g/dL RDW Std Deviation 50.8 H (36.4-46.3) fL RDW Coeff of Logan 15.8 H (11.5-14.5) % Plt Count 341 (130-400) K/uL MPV 8.9 (7.4-10.4) fL Immature Gran % (Auto) 1.1 % Neut % (Auto) 75.4 % Lymph % (Auto) 11.0 % Linn % (Auto) 7.1 % Eos % (Auto) 5.2 % Baso % (Auto) 0.2 % Neut # (Auto) 9.66 H (1.4-6.5) K/uL Lymph # (Auto) 1.41 (1.2-3.4) K/uL Linn # (Auto) 0.91 H (0.11-0.59) K/uL Eos # (Auto) 0.67 H (0-0.5) K/uL Baso # (Auto) 0.02 (0-0.2) K/uL Immature Gran # (Auto) 0.14 H (0.00-0.02) K/uL Absolute Nucleated RBC 0.15 H (0-0) K/uL Nucleated RBC % (auto) 1.2 % ESR 115 H (0-30) mm/hr PT (9.0-12.0) Seconds INR (0.9-1.1) APTT (21.0-31.0) Seconds PTT Ratio Fibrinogen (184-400) mg/dl Sodium 140 (136-145) mmol/L Potassium 3.7 (3.5-5.1) mmol/L Chloride 106 (98-107) mmol/L Carbon Dioxide 28 (21-32) mmol/L Anion Gap 6.0 (3-11) BUN 16 (7-18) mg/dl Creatinine 1.37 H (0.6-1.2) mg/dl Est Cr Clr Drug Dosing 60.9 ml/min Est GFR ( Amer) 49.2 Est GFR (Non-Af Amer) 42.4 BUN/Creatinine Ratio 11.7 (10-20) Glucose 108 H (70-99) mg/dl POC Glucose (70-99) mg/dl Lactate (0.4-2.0) mmol/L Calcium 7.8 L (8.5-10.1) mg/dl Phosphorus 4.9 (2.5-4.9) mg/dl Magnesium 2.2 (1.8-2.4) mg/dl Total Bilirubin (0.2-1) mg/dl AST (15-37) U/L ALT (12-78) U/L Alkaline Phosphatase (45-117) U/L Total Protein (6.4-8.2) gm/dl Albumin (3.4-5.0) gm/dl Globulin (2.5-4.0) gm/dl Albumin/Globulin Ratio (0.9-2) Procalcitonin (0-0.5) ng/ml Random Cortisol mcg/dl Nasal Screen MRSA (PCR) Vancomycin Trough (See Comment) mcg/ml Random Vancomycin mcg/ml Digoxin (0.8-2.0) ng/ml Blood Type Rho(D) Type Antibody Screen Crossmatch 10/01/20 10/01/20 10/01/20 Range/Units 01:51 01:51 01:51 WBC (4.8-10.8) K/uL RBC (4.2-5.4) M/uL Hgb (12.0-16.0) g/dL Hct (37-47) % MCV (80-100) fL MCH (25-34) pg MCHC (32-36) g/dL RDW Std Deviation (36.4-46.3) fL RDW Coeff of Logan (11.5-14.5) % Plt Count (130-400) K/uL MPV (7.4-10.4) fL Immature Gran % (Auto) % Neut % (Auto) % Lymph % (Auto) % Linn % (Auto) % Eos % (Auto) % Baso % (Auto) % Neut # (Auto) (1.4-6.5) K/uL Lymph # (Auto) (1.2-3.4) K/uL Linn # (Auto) (0.11-0.59) K/uL Eos # (Auto) (0-0.5) K/uL Baso # (Auto) (0-0.2) K/uL Immature Gran # (Auto) (0.00-0.02) K/uL Absolute Nucleated RBC (0-0) K/uL Nucleated RBC % (auto) % ESR (0-30) mm/hr PT (9.0-12.0) Seconds INR (0.9-1.1) APTT (21.0-31.0) Seconds PTT Ratio Fibrinogen (184-400) mg/dl Sodium (136-145) mmol/L Potassium (3.5-5.1) mmol/L Chloride (98-107) mmol/L Carbon Dioxide (21-32) mmol/L Anion Gap (3-11) BUN (7-18) mg/dl Creatinine (0.6-1.2) mg/dl Est Cr Clr Drug Dosing ml/min Est GFR ( Amer) Est GFR (Non-Af Amer) BUN/Creatinine Ratio (10-20) Glucose (70-99) mg/dl POC Glucose (70-99) mg/dl Lactate 1.4 (0.4-2.0) mmol/L Calcium (8.5-10.1) mg/dl Phosphorus (2.5-4.9) mg/dl Magnesium (1.8-2.4) mg/dl Total Bilirubin (0.2-1) mg/dl AST (15-37) U/L ALT (12-78) U/L Alkaline Phosphatase (45-117) U/L Total Protein (6.4-8.2) gm/dl Albumin (3.4-5.0) gm/dl Globulin (2.5-4.0) gm/dl Albumin/Globulin Ratio (0.9-2) Procalcitonin 0.35 (0-0.5) ng/ml Random Cortisol 8.15 mcg/dl Nasal Screen MRSA (PCR) Vancomycin Trough (See Comment) mcg/ml Random Vancomycin mcg/ml Digoxin (0.8-2.0) ng/ml Blood Type Rho(D) Type Antibody Screen Crossmatch 10/01/20 10/01/20 10/01/20 Range/Units 01:51 01:51 01:51 WBC (4.8-10.8) K/uL RBC (4.2-5.4) M/uL Hgb (12.0-16.0) g/dL Hct (37-47) % MCV (80-100) fL MCH (25-34) pg MCHC (32-36) g/dL RDW Std Deviation (36.4-46.3) fL RDW Coeff of Logan (11.5-14.5) % Plt Count (130-400) K/uL MPV (7.4-10.4) fL Immature Gran % (Auto) % Neut % (Auto) % Lymph % (Auto) % Linn % (Auto) % Eos % (Auto) % Baso % (Auto) % Neut # (Auto) (1.4-6.5) K/uL Lymph # (Auto) (1.2-3.4) K/uL Linn # (Auto) (0.11-0.59) K/uL Eos # (Auto) (0-0.5) K/uL Baso # (Auto) (0-0.2) K/uL Immature Gran # (Auto) (0.00-0.02) K/uL Absolute Nucleated RBC (0-0) K/uL Nucleated RBC % (auto) % ESR (0-30) mm/hr PT 11.4 (9.0-12.0) Seconds INR 1.1 (0.9-1.1) APTT 29.2 (21.0-31.0) Seconds PTT Ratio 1.1 Fibrinogen (184-400) mg/dl Sodium 138 (136-145) mmol/L Potassium 3.9 (3.5-5.1) mmol/L Chloride 104 (98-107) mmol/L Carbon Dioxide 29 (21-32) mmol/L Anion Gap 5.0 (3-11) BUN 16 (7-18) mg/dl Creatinine 1.47 H (0.6-1.2) mg/dl Est Cr Clr Drug Dosing 52.6 ml/min Est GFR ( Amer) 45.1 Est GFR (Non-Af Amer) 38.9 BUN/Creatinine Ratio 11.0 (10-20) Glucose 117 H (70-99) mg/dl POC Glucose (70-99) mg/dl Lactate (0.4-2.0) mmol/L Calcium 8.0 L (8.5-10.1) mg/dl Phosphorus (2.5-4.9) mg/dl Magnesium (1.8-2.4) mg/dl Total Bilirubin 0.6 (0.2-1) mg/dl AST 27 (15-37) U/L ALT 25 (12-78) U/L Alkaline Phosphatase 226 H (45-117) U/L Total Protein 6.7 (6.4-8.2) gm/dl Albumin 1.7 L (3.4-5.0) gm/dl Globulin 5.0 H (2.5-4.0) gm/dl Albumin/Globulin Ratio 0.3 L (0.9-2) Procalcitonin (0-0.5) ng/ml Random Cortisol mcg/dl Nasal Screen MRSA (PCR) Vancomycin Trough (See Comment) mcg/ml Random Vancomycin 19.8 mcg/ml Digoxin (0.8-2.0) ng/ml Blood Type Rho(D) Type Antibody Screen Crossmatch 10/01/20 09/30/20 09/30/20 Range/Units 01:45 21:44 20:30 WBC (4.8-10.8) K/uL RBC (4.2-5.4) M/uL Hgb 8.1 L (12.0-16.0) g/dL Hct 24.6 L (37-47) % MCV (80-100) fL MCH (25-34) pg MCHC (32-36) g/dL RDW Std Deviation (36.4-46.3) fL RDW Coeff of Logan (11.5-14.5) % Plt Count (130-400) K/uL MPV (7.4-10.4) fL Immature Gran % (Auto) % Neut % (Auto) % Lymph % (Auto) % Linn % (Auto) % Eos % (Auto) % Baso % (Auto) % Neut # (Auto) (1.4-6.5) K/uL Lymph # (Auto) (1.2-3.4) K/uL Linn # (Auto) (0.11-0.59) K/uL Eos # (Auto) (0-0.5) K/uL Baso # (Auto) (0-0.2) K/uL Immature Gran # (Auto) (0.00-0.02) K/uL Absolute Nucleated RBC (0-0) K/uL Nucleated RBC % (auto) % ESR (0-30) mm/hr PT (9.0-12.0) Seconds INR (0.9-1.1) APTT (21.0-31.0) Seconds PTT Ratio Fibrinogen (184-400) mg/dl Sodium (136-145) mmol/L Potassium (3.5-5.1) mmol/L Chloride (98-107) mmol/L Carbon Dioxide (21-32) mmol/L Anion Gap (3-11) BUN (7-18) mg/dl Creatinine (0.6-1.2) mg/dl Est Cr Clr Drug Dosing ml/min Est GFR ( Amer) Est GFR (Non-Af Amer) BUN/Creatinine Ratio (10-20) Glucose (70-99) mg/dl POC Glucose 110 H (70-99) mg/dl Lactate (0.4-2.0) mmol/L Calcium (8.5-10.1) mg/dl Phosphorus (2.5-4.9) mg/dl Magnesium (1.8-2.4) mg/dl Total Bilirubin (0.2-1) mg/dl AST (15-37) U/L ALT (12-78) U/L Alkaline Phosphatase (45-117) U/L Total Protein (6.4-8.2) gm/dl Albumin (3.4-5.0) gm/dl Globulin (2.5-4.0) gm/dl Albumin/Globulin Ratio (0.9-2) Procalcitonin (0-0.5) ng/ml Random Cortisol mcg/dl Nasal Screen MRSA (PCR) Pending Vancomycin Trough (See Comment) mcg/ml Random Vancomycin mcg/ml Digoxin (0.8-2.0) ng/ml Blood Type Rho(D) Type Antibody Screen Crossmatch 09/30/20 09/30/20 09/30/20 Range/Units 16:24 13:01 10:41 WBC (4.8-10.8) K/uL RBC (4.2-5.4) M/uL Hgb (12.0-16.0) g/dL Hct (37-47) % MCV (80-100) fL MCH (25-34) pg MCHC (32-36) g/dL RDW Std Deviation (36.4-46.3) fL RDW Coeff of Logan (11.5-14.5) % Plt Count (130-400) K/uL MPV (7.4-10.4) fL Immature Gran % (Auto) % Neut % (Auto) % Lymph % (Auto) % Linn % (Auto) % Eos % (Auto) % Baso % (Auto) % Neut # (Auto) (1.4-6.5) K/uL Lymph # (Auto) (1.2-3.4) K/uL Linn # (Auto) (0.11-0.59) K/uL Eos # (Auto) (0-0.5) K/uL Baso # (Auto) (0-0.2) K/uL Immature Gran # (Auto) (0.00-0.02) K/uL Absolute Nucleated RBC (0-0) K/uL Nucleated RBC % (auto) % ESR (0-30) mm/hr PT (9.0-12.0) Seconds INR (0.9-1.1) APTT (21.0-31.0) Seconds PTT Ratio Fibrinogen (184-400) mg/dl Sodium (136-145) mmol/L Potassium (3.5-5.1) mmol/L Chloride (98-107) mmol/L Carbon Dioxide (21-32) mmol/L Anion Gap (3-11) BUN (7-18) mg/dl Creatinine (0.6-1.2) mg/dl Est Cr Clr Drug Dosing ml/min Est GFR ( Amer) Est GFR (Non-Af Amer) BUN/Creatinine Ratio (10-20) Glucose (70-99) mg/dl POC Glucose 96 90 (70-99) mg/dl Lactate (0.4-2.0) mmol/L Calcium (8.5-10.1) mg/dl Phosphorus (2.5-4.9) mg/dl Magnesium (1.8-2.4) mg/dl Total Bilirubin (0.2-1) mg/dl AST (15-37) U/L ALT (12-78) U/L Alkaline Phosphatase (45-117) U/L Total Protein (6.4-8.2) gm/dl Albumin (3.4-5.0) gm/dl Globulin (2.5-4.0) gm/dl Albumin/Globulin Ratio (0.9-2) Procalcitonin (0-0.5) ng/ml Random Cortisol mcg/dl Nasal Screen MRSA (PCR) Vancomycin Trough (See Comment) mcg/ml Random Vancomycin mcg/ml Digoxin 1.2 (0.8-2.0) ng/ml Blood Type Rho(D) Type Antibody Screen Crossmatch 09/30/20 09/30/20 09/30/20 Range/Units 10:41 10:41 10:41 WBC 17.36 H (4.8-10.8) K/uL RBC 3.05 L (4.2-5.4) M/uL Hgb 8.6 L (12.0-16.0) g/dL Hct 26.6 L (37-47) % MCV 87.2 (80-100) fL MCH 28.2 (25-34) pg MCHC 32.3 (32-36) g/dL RDW Std Deviation 50.3 H (36.4-46.3) fL RDW Coeff of Logan 15.8 H (11.5-14.5) % Plt Count 374 (130-400) K/uL MPV 9.0 (7.4-10.4) fL Immature Gran % (Auto) 1.1 % Neut % (Auto) 76.4 % Lymph % (Auto) 9.4 % Linn % (Auto) 10.1 % Eos % (Auto) 2.8 % Baso % (Auto) 0.2 % Neut # (Auto) 13.25 H (1.4-6.5) K/uL Lymph # (Auto) 1.63 (1.2-3.4) K/uL Linn # (Auto) 1.76 H (0.11-0.59) K/uL Eos # (Auto) 0.49 (0-0.5) K/uL Baso # (Auto) 0.04 (0-0.2) K/uL Immature Gran # (Auto) 0.19 H (0.00-0.02) K/uL Absolute Nucleated RBC 0.17 H (0-0) K/uL Nucleated RBC % (auto) 1.0 % ESR (0-30) mm/hr PT (9.0-12.0) Seconds INR (0.9-1.1) APTT (21.0-31.0) Seconds PTT Ratio Fibrinogen (184-400) mg/dl Sodium 142 (136-145) mmol/L Potassium 3.9 (3.5-5.1) mmol/L Chloride 108 H (98-107) mmol/L Carbon Dioxide 28 (21-32) mmol/L Anion Gap 6.0 (3-11) BUN 14 D (7-18) mg/dl Creatinine 1.45 H D (0.6-1.2) mg/dl Est Cr Clr Drug Dosing 53.3 ml/min Est GFR ( Amer) 45.9 Est GFR (Non-Af Amer) 39.6 BUN/Creatinine Ratio 9.5 L (10-20) Glucose 113 H (70-99) mg/dl POC Glucose (70-99) mg/dl Lactate (0.4-2.0) mmol/L Calcium 8.5 (8.5-10.1) mg/dl Phosphorus (2.5-4.9) mg/dl Magnesium (1.8-2.4) mg/dl Total Bilirubin 1.0 D (0.2-1) mg/dl AST 31 (15-37) U/L ALT 25 (12-78) U/L Alkaline Phosphatase 218 H (45-117) U/L Total Protein 6.9 (6.4-8.2) gm/dl Albumin 1.8 L (3.4-5.0) gm/dl Globulin 5.1 H (2.5-4.0) gm/dl Albumin/Globulin Ratio 0.4 L (0.9-2) Procalcitonin (0-0.5) ng/ml Random Cortisol mcg/dl Nasal Screen MRSA (PCR) Vancomycin Trough 27.1 (See Comment) mcg/ml Random Vancomycin mcg/ml Digoxin (0.8-2.0) ng/ml Blood Type Rho(D) Type Antibody Screen Crossmatch 09/30/20 09/30/20 09/29/20 Range/Units 10:18 08:14 19:22 WBC (4.8-10.8) K/uL RBC (4.2-5.4) M/uL Hgb (12.0-16.0) g/dL Hct (37-47) % MCV (80-100) fL MCH (25-34) pg MCHC (32-36) g/dL RDW Std Deviation (36.4-46.3) fL RDW Coeff of Logan (11.5-14.5) % Plt Count (130-400) K/uL MPV (7.4-10.4) fL Immature Gran % (Auto) % Neut % (Auto) % Lymph % (Auto) % Linn % (Auto) % Eos % (Auto) % Baso % (Auto) % Neut # (Auto) (1.4-6.5) K/uL Lymph # (Auto) (1.2-3.4) K/uL Linn # (Auto) (0.11-0.59) K/uL Eos # (Auto) (0-0.5) K/uL Baso # (Auto) (0-0.2) K/uL Immature Gran # (Auto) (0.00-0.02) K/uL Absolute Nucleated RBC (0-0) K/uL Nucleated RBC % (auto) % ESR (0-30) mm/hr PT (9.0-12.0) Seconds INR (0.9-1.1) APTT (21.0-31.0) Seconds PTT Ratio Fibrinogen (184-400) mg/dl Sodium (136-145) mmol/L Potassium (3.5-5.1) mmol/L Chloride (98-107) mmol/L Carbon Dioxide (21-32) mmol/L Anion Gap (3-11) BUN (7-18) mg/dl Creatinine (0.6-1.2) mg/dl Est Cr Clr Drug Dosing ml/min Est GFR ( Amer) Est GFR (Non-Af Amer) BUN/Creatinine Ratio (10-20) Glucose (70-99) mg/dl POC Glucose 125 H 114 H (70-99) mg/dl Lactate (0.4-2.0) mmol/L Calcium (8.5-10.1) mg/dl Phosphorus (2.5-4.9) mg/dl Magnesium (1.8-2.4) mg/dl Total Bilirubin (0.2-1) mg/dl AST (15-37) U/L ALT (12-78) U/L Alkaline Phosphatase (45-117) U/L Total Protein (6.4-8.2) gm/dl Albumin (3.4-5.0) gm/dl Globulin (2.5-4.0) gm/dl Albumin/Globulin Ratio (0.9-2) Procalcitonin (0-0.5) ng/ml Random Cortisol mcg/dl Nasal Screen MRSA (PCR) Vancomycin Trough (See Comment) mcg/ml Random Vancomycin mcg/ml Digoxin (0.8-2.0) ng/ml Blood Type Cancelled Rho(D) Type Cancelled Antibody Screen Cancelled Crossmatch See Detail 09/29/20 Range/Units 19:22 WBC (4.8-10.8) K/uL RBC (4.2-5.4) M/uL Hgb (12.0-16.0) g/dL Hct (37-47) % MCV (80-100) fL MCH (25-34) pg MCHC (32-36) g/dL RDW Std Deviation (36.4-46.3) fL RDW Coeff of Logan (11.5-14.5) % Plt Count (130-400) K/uL MPV (7.4-10.4) fL Immature Gran % (Auto) % Neut % (Auto) % Lymph % (Auto) % Linn % (Auto) % Eos % (Auto) % Baso % (Auto) % Neut # (Auto) (1.4-6.5) K/uL Lymph # (Auto) (1.2-3.4) K/uL Linn # (Auto) (0.11-0.59) K/uL Eos # (Auto) (0-0.5) K/uL Baso # (Auto) (0-0.2) K/uL Immature Gran # (Auto) (0.00-0.02) K/uL Absolute Nucleated RBC (0-0) K/uL Nucleated RBC % (auto) % ESR (0-30) mm/hr PT (9.0-12.0) Seconds INR (0.9-1.1) APTT (21.0-31.0) Seconds PTT Ratio Fibrinogen (184-400) mg/dl Sodium (136-145) mmol/L Potassium (3.5-5.1) mmol/L Chloride (98-107) mmol/L Carbon Dioxide (21-32) mmol/L Anion Gap (3-11) BUN (7-18) mg/dl Creatinine (0.6-1.2) mg/dl Est Cr Clr Drug Dosing ml/min Est GFR ( Amer) Est GFR (Non-Af Amer) BUN/Creatinine Ratio (10-20) Glucose (70-99) mg/dl POC Glucose (70-99) mg/dl Lactate (0.4-2.0) mmol/L Calcium (8.5-10.1) mg/dl Phosphorus (2.5-4.9) mg/dl Magnesium (1.8-2.4) mg/dl Total Bilirubin (0.2-1) mg/dl AST (15-37) U/L ALT (12-78) U/L Alkaline Phosphatase (45-117) U/L Total Protein (6.4-8.2) gm/dl Albumin (3.4-5.0) gm/dl Globulin (2.5-4.0) gm/dl Albumin/Globulin Ratio (0.9-2) Procalcitonin (0-0.5) ng/ml Random Cortisol mcg/dl Nasal Screen MRSA (PCR) Vancomycin Trough (See Comment) mcg/ml Random Vancomycin mcg/ml Digoxin (0.8-2.0) ng/ml Blood Type O Positive Rho(D) Type Antibody Screen NEGATIVE Crossmatch See Detail Medications Administered Current Inpatient Medications Acetaminophen (Acetaminophen 325 Mg Tab) 650 mg PO Q4H PRN PRN Reason: Pain or Fever Stop: 10/28/20 22:42 Last Admin: 09/30/20 19:48 Dose: 650 mg Documented by: Al Hydrox/Mg Hydrox/Simethicone (Aluminum/Magnesium Susp 30 Ml Udc) 15 ml PO Q4H PRN PRN Reason: Heartburn Stop: 10/30/20 12:52 Ascorbic Acid (Ascorbic Acid 500 Mg Tab) 500 mg PO BIDM [facility] Stop: 10/30/20 16:59 Last Admin: 09/30/20 16:23 Dose: 500 mg Documented by: Atorvastatin Calcium (Atorvastatin 10 Mg Tab) 10 mg PO QAM [facility] Stop: 10/29/20 08:59 Last Admin: 09/30/20 13:00 Dose: 10 mg Documented by: Bisacodyl (Bisacodyl 10 Mg Supp) 10 mg [place] DAILY PRN PRN Reason: Constipation Stop: 10/30/20 12:52 Dextrose (Dextrose 50% 50 Ml Syringe) 25 - 50 ml IV UD PRN; Protocol PRN Reason: Hypoglycemia Protocol Stop: 10/28/20 22:42 Digoxin (Digoxin 0.125 Mg Tab) 0.125 mg PO DAILY@1600 [facility] Stop: 10/29/20 15:59 Last Admin: 09/30/20 16:22 Dose: 0.125 mg Documented by: Docusate Sodium (Docusate Sodium 100 Mg Cap) 100 mg PO BID [facility] Stop: 10/29/20 08:59 Last Admin: 09/30/20 21:12 Dose: 100 mg Documented by: Ferrous Gluconate (Ferrous Gluconate 324 Mg Tab) 324 mg PO BIDM [facility]CTOR M Stop: 10/30/20 16:59 Last Admin: 09/30/20 16:23 Dose: 324 mg Documented by: Glucagon (Glucagon For Inj 1 Mg Vial) 1 mg SQ UD PRN; Protocol PRN Reason: Hypoglycemia Protocol Stop: 10/28/20 22:42 Glucose (Glucose 10 Tabs/Tube) 4 - 8 tabs PO UD PRN; Protocol PRN Reason: Hypoglycemia Protocol Stop: 10/28/20 22:42 Glucose (Glucose 40% Gel 15 Gm Tube) 15 - 30 gm PO UD PRN; Protocol PRN Reason: Hypoglycemia Protocol Stop: 10/28/20 22:42 Hydromorphone HCl (Hydromorphone Inj 0.5 Mg/0.5 Ml Syr) 0.5 mg IV Q4H PRN PRN Reason: Pain or Pre PT Stop: 10/14/20 12:52 Last Admin: 09/30/20 13:21 Dose: 0.5 mg Documented by: Hydroxyzine HCl (Hydroxyzine Hcl 25 Mg Tab) 50 mg PO HS VICTOR M Stop: 10/29/20 20:59 Last Admin: 09/30/20 21:12 Dose: Not Given Documented by: Cefepime HCl 1,000 mg/ Syringe 11.3 mls @ 5.5 mls/min IV Q8H [facility]; Protocol Stop: 10/06/20 00:00 Last Admin: 09/30/20 23:19 Dose: 5.5 mls/min Documented by: Vancomycin HCl 1,000 mg/ (Sodium Chloride) 270 mls @ 200 mls/hr IV Q18H [facility] Stop: 10/08/20 01:59 Amiodarone HCl/Dextrose (Nexterone / D5w) 360 mg in 200 mls @ 16.667 mls/hr IV .Q12H [facility]CTOR M Stop: 10/30/20 23:14 Last Infusion: 10/01/20 07:13 Dose: 0.5 mg/min, 16.7 mls/hr Documented by: Sodium Chloride (Nss) 250 mls @ 15 mls/hr IV .[id number] PRN PRN Reason: For Transfusion Stop: 10/01/20 08:32 Norepinephrine Bitartrate (Levophed/D5w) 8 mg in 508 mls @ 0 mls/hr IV .Q0M VICTOR M; Protocol Stop: 10/31/20 02:59 Last Titration: 10/01/20 03:45 Dose: 0 mcg/kg/min, 0 mls/hr Documented by: Hydrocortisone Sodium (Succinate 100 mg/ Syringe) 2 mls @ 4 mls/min IV Q8H [facility] Stop: 10/31/20 03:59 Last Admin: 10/01/20 03:52 Dose: 4 mls/min Documented by: Pantoprazole Sodium 40 mg/ (Syringe) 10 mls @ 5 mls/min IV BID [facility] Stop: 10/31/20 20:59 Insulin Aspart (Insulin Aspart 100 Units/Ml 3 Ml Pen) 0 units SC ACHS [facility] Stop: 10/28/20 23:14 Last Admin: 09/30/20 20:32 Dose: Not Given Documented by: Levalbuterol HCl (Levalbuterol Hcl 1.25 Mg/3 Ml Neb) 1.25 mg NEB Q4H PRN PRN Reason: Shortness Of Breath Stop: 10/29/20 03:29 Levalbuterol HCl (Levalbuterol Hcl 0.63 Mg/3 Ml Neb) 0.63 mg INH Q4H PRN PRN Reason: Dyspnea Stop: 10/31/20 02:15 Magnesium Hydroxide (Magnesium Hydroxide Susp 30 Ml Udc) 30 ml PO Q6H PRN PRN Reason: Constipation Stop: 10/30/20 12:52 Metoclopramide HCl (Metoclopramide Hcl Inj 5 Mg/Ml 2 Ml Vial) 10 mg IV Q6H PRN PRN Reason: Nausea And Vomiting Stop: 10/30/20 12:52 Metoprolol Succinate (Metoprolol Succ 50mg Ext Rel Tab) 150 mg PO QAM [facility] Stop: 10/29/20 08:59 Last Admin: 09/30/20 13:00 Dose: Not Given Documented by: Miscellaneous (Carbohydrates For Hypoglycemia ) 15 - 30 gm PO UD PRN PRN Reason: Hypoglycemia Protocol Stop: 10/28/20 22:42 Miscellaneous (Icu Protocol For Hyperglycemia) 1 ea N/A PRN PRN; Protocol PRN Reason: Hyperglycemia Protocol Stop: 10/03/20 02:15 Miscellaneous Information (Vancomycin Consult Active) 1 ea N/A UD PRN PRN Reason: Consult Stop: 10/28/20 22:42 Multivitamins (Multivitamin Tab) 1 tab PO QAM [facility] Stop: 10/31/20 08:59 Naloxone HCl (Naloxone Hcl 0.4 Mg/1 Ml Vial/Carp) 0.1 mg IV Q5M PRN PRN Reason: Oversedation/Resp Depression Stop: 10/30/20 12:52 Ondansetron HCl (Ondansetron Inj 2 Mg/Ml 2 Ml Vial) 4 mg IV Q6H PRN PRN Reason: Nausea Stop: 10/28/20 22:42 Ondansetron HCl (Ondansetron Inj 2 Mg/Ml 2 Ml Vial) 4 mg IV Q6H PRN PRN Reason: Nausea And Vomiting Stop: 10/30/20 12:52 [facility]oprazole S[facility] ([facility] 40 Mg [facility]) [facility]: 10/29/20 06:29 Last Admin: 10/01/20 06:16 Dose: 40 mg Documented by: Polyethylene Glycol (Polyethylene (Miralax) 17 Gm Pack) 17 gm PO BID [facility] Stop: 10/29/20 20:59 Last Admin: 09/30/20 21:12 Dose: Not Given Documented by: Pregabalin (Pregabalin 100 Mg Cap) 100 mg PO BID [facility] Stop: 10/29/20 08:59 Last Admin: 09/30/20 21:11 Dose: 100 mg Documented by: Quetiapine Fumarate (Quetiapine Fumarate 200 Mg Tab) 400 mg PO [facility] Stop: 10/29/20 20:59 Last Admin: 09/30/20 21:12 Dose: Not Given Documented by: Quetiapine Fumarate (Quetiapine Fumarate 100 Mg Tablet) [facility] Stop: 10/29/20 08:59 Last Admin: 09/30/20 13:00 Dose: 100 mg Documented by: Sacubitril/Valsartan (Sacubitril-Valsartan 24-26 Mg Tab) 1 tab PO BID [facility] Stop: 10/29/20 08:59 Last Admin: 09/30/20 21:11 Dose: 1 tab Documented by: Sennosides (Senna 8.6 Mg Tab) 17.2 mg PO [facility] Stop: 10/30/20 20:59 Last Admin: 09/30/20 21:13 Dose: Not Given Documented by: Thiamine HCl (Thiamine Hcl 100 Mg Tab) 200 mg PO DAILY [facility] Stop: 10/29/20 08:59 Last Admin: 09/30/20 13:00 Dose: 200 mg Documented by: Tramadol HCl (Tramadol Hcl 50 Mg Tablet) 50 mg PO Q6 PRN PRN Reason: pain Stop: 10/29/20 02:49 Last Admin: 09/30/20 12:58 Dose: 50 mg Documented by: Trazodone HCl (Trazodone Hcl 100 Mg Tab) 200 mg PO HS [facility] M Stop: 10/29/20 20:59 Last Admin: 09/30/20 13:00 Dose: 200 mg Documented by: Umeclidinium/Vilanterol (Umeclidinium/Vilanterol 62.5/25mcg 7 Puffs/Inhaler) 1 puffs INH DAILY [facility] Stop: 10/29/20 08:59 Last Admin: 09/30/20 13:01 Dose: 1 puffs Documented by: Resident Activity Tracking Resident Involvement: Resident Care Provided Care Provided: Adult Hospital Medicine (1) Fracture of tibia and fibula Encounter type: initial encounter Fracture type: closed Laterality: left Qualified Code(s): S82.202A - Unspecified fracture of shaft of left tibia, initial encounter for closed fracture; S82.402A - Unspecified fracture of shaft of left fibula, initial encounter for closed fracture (2) Schizoaffective disorder Schizoaffective disorder type: bipolar Qualified Code(s): F25.0 - Schizoaffective disorder, bipolar type (3) Diabetes type 2, controlled Diabetes mellitus complication status: with unspecified complications Diabetes mellitus intermediate project manager insulin use: without usp use Qualified Code(s): E11.8 - Type 2 diabetes mellitus with unspecified complications (4) Sepsis Sepsis acute organ dysfunction status: without acute organ dysfunction Sepsis type: sepsis due to unspecified organism Qualified Code(s): A41.9 - Sepsis, unspecified organism (5) GERD (gastroesophageal reflux disease) Esophagitis presence: esophagitis presence not specified Qualified Code(s): K21.9 - Gastro-esophageal reflux disease without esophagitis (6) HTN (hypertension) Hypertension type: essential hypertension Qualified Code(s): I10 - Essential (primary) hypertension
[2020-10-01] MEDS: INSULIN ASPART 100 UNITS/ML 3 ML PEN SC SCH ×4 (08:26→21:40)
[2020-10-01] MEDS: PREGABALIN 100 MG CAP PO SCH ×2 (08:42→21:31)
[2020-10-01] MEDS: CEFEPIME 1,000 MG in SYRINGE 0 ML IV SCH (08:42)
[2020-10-01] MEDS: FERROUS GLUCONATE 324 MG TAB PO SCH ×2 (08:43→16:40)
[2020-10-01] MEDS: THIAMINE HCL 100 MG TAB PO SCH (08:43)
[2020-10-01] MEDS: DOCUSATE SODIUM 100 MG CAP PO SCH ×2 (08:43→21:31)
[2020-10-01] MEDS: ASCORBIC ACID 500 MG TAB PO SCH ×2 (08:43→16:41)
[2020-10-01] MEDS: ATORVASTATIN 10 MG TAB PO SCH (08:43)
[2020-10-01] MEDS: MULTIVITAMIN TAB PO SCH (08:44)
[2020-10-01] MEDS: UMECLIDINIUM/VILANTEROL 62.5/25MCG 7 PUFFS/INHALER INH SCH (08:44)
[2020-10-01] MEDS: SACUBITRIL-VALSARTAN 24-26 MG TAB PO SCH (08:44)
[2020-10-01] MEDS: POLYETHYLENE (MIRALAX) 17 GM PACK PO SCH ×2 (08:45→21:31)
--- NOTE | 2020-10-01 08:56 | Progress Notes ---
DATE: 10/01/2020 SUBJECTIVE: A 59-year-old white female with multiple medical comorbidities postop day 1 from I and D of the left leg infection after ORIF. She is doing pretty well this morning. She is in the surgical ICU. She seems comfortable. Pain seems to be a bit improved. No other complaints. OBJECTIVE: VITAL SIGNS: Temperature is 36.7. Vital signs stable. GENERAL: Shows a pleasant, middle-aged black female. She is sitting up in bed and eating breakfast. She looks comfortable. EXTREMITIES: Examination of the left leg reveals the dressing to be clean, dry and intact. Leg is well aligned. She can dorsiflex and plantarflex her foot appropriately. She is neurologically intact. LABORATORY DATA: Hemoglobin 8.1. Hematocrit 24.9. White cell count 12.81. CULTURE RESULTS: Gram stain showing gram-positive cocci. Culture results are pending. ASSESSMENT: A 59-year-old white female 6 weeks out from ORIF of a left distal tib-fib fracture with obvious infection now postop day 1 from an I and D. A pretty extensive infection. She seems to be doing okay. PLAN: 1. DVT prophylaxis including thigh-high TEDs, SCDs, and she can go back on her Eliquis starting tomorrow. Recommend we hold that for today. 2. PT/OT. She is touch weightbearing left leg only. 3. Routine wound care left leg. 4. Medical management. She is anemic, but currently without symptoms. We will leave any further blood transfusion up to the medicine service. 5. Antibiotics. She is going to need at least 4 weeks of IV antibiotics. She will probably need a PICC line. 6. Disposition: She will probably be able to be discharged to home with some home health. She is going to be touch weightbearing for the next 2-4 weeks. Any orthopedic questions can be directed to me at [phone].
[2020-10-01] MEDS ORDERED: VANCOMYCIN HCL 1,000 MG in SODIUM CHLORIDE 0.9% 250 ML IV ONE (09:00)
[2020-10-01 10:28] LABS: Hematocrit (blood only) 25.8 % (37-47); Hemoglobin 8.6 g/dL (12.0-16.0)
[2020-10-01] MEDS: traMADol HCL 50 MG TABLET PO PRN ×2 (13:52→22:53)
--- NOTE | 2020-10-01 14:13 | Pharmacy Report ---
Pharmacy Abx Dose Short Note - Date of Service October 01, 2020 - Assessment & Plan Assessment 59 year old F receiving vancomycin + cefepime for treatment of L leg infection in the setting of ORIF 08/2020. Pharmacy has been consulted to dose vanco IV + h/o DM s/p debridement cultures currently growing staph sp +MRSA nasal swab Day # 3 of antimicrobial therapy KIRSTIN appears to be improving (SCr 0.89 -->1.45 -->1.47 --> 1.37) Plan Vancomycin * Trough level of 19.8 mcg/mL is therapeutic - this was drawn ~ 28 hrs after last dose of 1500mg Q 12 hrs * Will reduce dose to 1000mg (9.3mg/kg) Q 18 hrs * Goal AUC:SALLY 400-600 * Per kinetic estimates, new regimen should produce a AUC/SALLY of ~550 and trough ~19 * Trough will be checked w/ 2nd or 3rd dose if therapy to continue - will need to follow SCr and UOP closely Pharmacy will continue to follow and will adjust dose/frequency as necessary. Thank you.
--- NOTE | 2020-10-01 14:52 | XCELERA ---
[id number]\[id number]
--- NOTE | 2020-10-01 16:06 | Billing Data ---
Date of Service October 01, 2020 Coding Level of Care Code 56779 Subseq Hosp Care Lvl 3
--- NOTE | 2020-10-01 16:16 | Electrocardiogram Report ---
Test Reason : Blood Pressure : / mmHG Vent. Rate : 114 BPM Atrial Rate : 115 BPM P-R Int : 000 ms QRS Dur : 098 ms QT Int : 284 ms P-R-T Axes : 000 059 184 degrees QTc Int : 391 ms Atrial fibrillation with rapid ventricular response Low voltage QRS Cannot rule out Anterior infarct , age undetermined Abnormal ECG When compared with ECG of 28-SEP-2020 18:13, No significant change was found Confirmed by Nolan Douglas ([id number]) on 10/01/2020 4:16:44 PM Referred By: REFERRED SELF Confirmed By:Nolan Douglas
[2020-10-01] MEDS: CEFEPIME 2,000 MG in SYRINGE 0 ML IV SCH ×2 (16:37→23:41)
[2020-10-01] MEDS: AMIODARONE / D5W 360 MG/200 ML BAG IV SCH (16:37)
[2020-10-01] MEDS: DIGOXIN 0.125 MG TAB PO SCH (16:40)
[2020-10-01] MEDS ORDERED: PANTOprazole 40 MG in SYRINGE 0 ML IV SCH (21:00)
[2020-10-01] MEDS: SENNA 8.6 MG TAB PO SCH (21:28)
[2020-10-01] MEDS: traZODone HCL 100 MG TAB PO SCH (21:28)
[2020-10-01] MEDS: hydrOXYzine HCl 25 MG TAB PO SCH (21:28)
[2020-10-02] MEDS ORDERED: VANCOMYCIN HCL 1,000 MG in SODIUM CHLORIDE 0.9% 250 ML IV SCH (02:00)
[2020-10-02] MEDS: AMIODARONE / D5W 360 MG/200 ML BAG IV SCH ×2 (04:16→20:11)
[2020-10-02] MEDS: traMADol HCL 50 MG TABLET PO PRN ×3 (05:26→19:08)
[2020-10-02 05:31] LABS: Hematocrit (blood only) 25.5 % (37-47); Hemoglobin 8.4 g/dL (12.0-16.0); Mean Corpuscular Hemoglobin 28.4 pg (25-34); Mean Corpuscular Hgb Conc 32.9 g/dL (32-36); Mean Corpuscular Volume 86.1 fL (80-100); Mean Platelet Volume 9.1 fL (7.4-10.4); Nucleated RBC # (auto) 0.21 K/uL (0-0); Nucleated RBC % (auto) 1.6 %; Platelet Count 390 K/uL (130-400); RDW Coefficient of Variation 15.8 % (11.5-14.5); RDW Standard Deviation 49.7 fL (36.4-46.3); Red Blood Count 2.96 M/uL (4.2-5.4); White Blood Count 13.34 K/uL (4.8-10.8)
[2020-10-02 05:55] LABS: ALC (manual) 2.09 K/uL (1.2-3.4); ANC (manual) 8.82 K/uL (1.4-6.5); Basophils # (manual) 0.23 K/uL (0-0.2); Basophils % (manual) 1.7 %; Eosinophils # (manual) 0.12 K/uL (0-0.5); Eosinophils % (manual) 0.9 %; Lymphocytes # (manual) 2.09 K/uL (1.2-3.4); Lymphocytes % (manual) 15.7 %; Monocytes # (manual) 1.73 K/uL (0.11-0.59); Myelocytes # (manual) 0.35 K/uL (0-0); Myelocytes % (manual) 2.6 %; Neutrophils # (manual) 8.82 K/uL (1.4-6.5); Neutrophils % (manual) 66.1 %; Polychromasia 1+; Toxic Vacuolation 1+
[2020-10-02 06:06] LABS: BUN Creatinine Ratio 12.1 (10-20); Calcium 7.8 mg/dl (8.5-10.1); Creatinine Clr Calc Pharmacy 66.4 ml/min; Est GFR (African American) 54.9; Est GFR (Non-African American) 47.4; Magnesium 2.2 mg/dl (1.8-2.4); Potassium 3.5 mmol/L (3.5-5.1)
[2020-10-02 06:12] LABS: Phosphorus 3.5 mg/dl (2.5-4.9)
[2020-10-02] MEDS: PANTOprazole 40 MG TAB PO SCH (06:45)
--- NOTE | 2020-10-02 07:21 | Hospitalist Progress Note ---
Date of Service October 02, 2020 Assessment & Plan (1) Sepsis: #Sepsis secondary to left lower extremity infection On admission meeting SIRS criteria, patient tachycardic, tachypneic, leukocytosis with WBC=23.69 with neutrophil predominance and bands, thrombocytosis with hgyspsvpo=500, suspect acute phase reaction in setting of infection. Elevated lactate of 3.2 which improved slighlty to 2.5 - patient with chronically elevated lactate. Unclear source of infection. CT chest with no PNA. UA and blood cultures pending. She does have slight increase in LFTs with T-bili of 1.9, AP of 293 suggesting possible GI source, however, no abdominal pain on deep palpation. No RUQ pain. Negative Clarke's sign. Additional source of infection could be left ankle - she is 1 month out from her ORIF, hardware in place. No signs or symptoms of skin infection in her left lower extremity, right upper quadrant ultrasound demonstrating hepatic steatosis. Patient endorsing diffuse abdominal tenderness today on exam, obtain CT abdomen pelvis with contrast, negative study with the exception of extensive stool burden. X-ray of her left ankle showing no obvious signs of infection, repeat lactate demonstrated downtrending. Source identified left lower extremity, evaluated by orthopedics 09/29, to the OR 09/30. Cultures continue to demonstrate any growth today continue empiric therapy pending instrumentation and sensitivities -Source identified, left lower extremities -Orthopedics consulted -OR for irrigation and debridement -pod# s/p I&D LLE -> Gram stain from the OR demonstrating GPC's -Cultures demonstrating pansensitive staph d/c cefipime and Vanco -Start cefazolin will need 4 weeks IV antibiotics as an outpatient -PICC line placement closer to discharge -Trend CBC -wbc:23.69->21.77->17.36->12.8->13.3 -Tylenol PRN fever #A. fib with RVR Patient with AF with RVR. HR 140-170 here. Minimally responsive to IVF. Digoxin subtherapeutic at 0.5. Long history of A. fib, difficult to control. Suspect secondary to underlying sepsis and will improve with source control and improvement infection. 09/30 patient having difficult to control blood pressures and heart rate postoperatively. Attempted multiple boluses of 250 mL without success, started amiodarone drip at approximately 1700. Evening resident obtain repeat H&H and attempted to provide a unit of blood when the patient had an acute episode of hypotension necessitating transfer to the ICU. Overnight in the ICU as her maps have maintained 65, there is been no need for pressor therapy thus far. -Rate controlled -DC'd amiodarone -Resumed home meds -Resumed metoprolol succinate 150mg po daily -Continue Digoxin 0.125mg po daily -Resume Xarelto 20mg po daily #Hypotension thought to be secondary to relative adrenal insufficiency -Responded to hydrocortisone 100 mg, continue IV every 8 hours -Will attempt to wean when she becomes more stable. #Fracture of tibia and fibula Patient with cast in place. She follows with Ortho -Tramadol 50mg po q6 hours PRN -Consulted orthopedics, appreciate recs -Monitor hemoglobin -We will need 4 weeks IV antibiotics on discharge -Left side touch weightbearing only #Anxiety/mood disorder/schizoaffective disorder Chronic. Patient follows at [facility] -Continue Hydroxyzine 50mg po qHS -Holding Seroquel secondary to prolonged QTC #COPD Patient with no cough or wheeze. Seems to be compensated -Continue Umeclidinium/Vilanterol -Xopenex neb PRN #CHF Patient appears to be well compensated, not overtly volume overloaded -Presumed metoprolol -Resumed Entresto BID -Cautious use of fluids in presumed sepsis with close monitoring of volume status -Holding Lasix PO for now #Gerd Chronic -Continue Protonix 40mg po daily #Diabetes type 2 Controlled. Last Hgb A1C = 6.5 on 08/12/20 -Hold Metformin while hospitalized -Lantus 5u BID -ISS -Goal blood sugar 100 - 140 -Continue Lyrica 100mg po BID for neuropathy #Hypertension Blood pressure stable -Holding Metoprolol -Holding Entresto -Monitor FENa: Advance diet as tolerated status post surgery Code Status: Full DVT PPX: Rivaroxaban 20 mg p.o. daily PT/OT: When medically stable Dispo: Karon Sanchez MD PGY 2, [facility] This chart was completed utilizing [employer] voice recognition software. Grammatical errors, random word insertions, pronoun errors, and in complete sentences are an occasional consequence of the system. Any questions or concerns about the content, text, or information contained within the body of this dictation should be addressed directly to the physician for clarification. Admission and Anticipated Discharge Date Admission Date: September 28, 2020 Supervising Physician Co-Signing Physician Notes I personally examined the patient and verified all eugene points of history and exam, discussed case, and agree with decision making with Dr Sanchez. Feeling better overall, no new complaints. breathing OK Vitals noted, resting comfortably no distress. HEENT normocephalic atraumatic mucous membranes moist. Breathing unlabored no accessory muscle use good effort. Skin shows no rashes no pallor or icterus. Neuro shows no focal deficits at rest. Sepsisafter further review, was in fact septic ankle/incisional infectionthis has been cleared out operatively, MSSA. change to cephazolin Hypotensionafter review appears to have been due to relative adrenal insufficiency. Improved nicely on hydrocortisone IV. wean, probablay endocrine eval as outpt - may have all related to acuity of illness but not 100 % clear that thsi was the case A. fib/RVRrate now controlled, switch back to home meds, resume anticoagulation Chronic hypoxic respiratory failurearound her baseline oxygen requirement, breathing has been stable Deep sleepshe notes a sleep study a year ago and recalls she did not need CPAP then, may be worth repeating given how slow she was to wake at the bedside. Continue to follow. stable for transfer to medical [facility] Patient sitting up in bed this morning in no acute distress her mentation continues to improve. She reports tolerating her diet, voiding, stooling. She reports she had sleep well overnight because she spent most the day sleeping. Encouraged her to try to stay awake today and to sleep at nighttime. All questions were answered, acute concerns relate to placement. Physical Exam Physical Exam: General: Lying in bed in no acute distress HEENT: Normocephalic atraumatic Neck: Normal to visual inspection Cardiac: Irregularly irregular rhythm, pedal edema, negative calf tenderness Respiratory: Clear to auscultation bilaterally with symmetrical chest expansion I did not appreciate any significant wheezes, rales, rhonchi, GI: Soft nontender nondistended Neuro: Alert and oriented x4, mental status significantly improved from prior Psych: Calm and cooperative with interview Results & Data Results & Data ([facility]) Vital Signs (Past 12 Hours) Vital Signs Temp Pulse Resp BP Pulse Ox 10/02/20 04:18 36.9 C 91 H 24 108/65 96 10/01/20 23:35 36.7 C 104 H 24 105/75 95 10/01/20 20:00 36.7 C 106 H 24 124/86 98 Resident Activity Tracking Resident Involvement: Resident Care Provided Care Provided: Adult Hospital Medicine (1) Sepsis Sepsis acute organ dysfunction status: without acute organ dysfunction Sepsis type: sepsis due to unspecified organism Qualified Code(s): A41.9 - Sepsis, unspecified organism
[2020-10-02] MEDS: INSULIN ASPART 100 UNITS/ML 3 ML PEN SC SCH ×4 (08:44→21:19)
[2020-10-02] MEDS: FERROUS GLUCONATE 324 MG TAB PO SCH ×2 (08:45→15:51)
[2020-10-02] MEDS: ATORVASTATIN 10 MG TAB PO SCH (08:45)
[2020-10-02] MEDS: ASCORBIC ACID 500 MG TAB PO SCH ×2 (08:45→15:51)
[2020-10-02] MEDS: MULTIVITAMIN TAB PO SCH (08:46)
[2020-10-02] MEDS: THIAMINE HCL 100 MG TAB PO SCH (08:47)
[2020-10-02] MEDS: UMECLIDINIUM/VILANTEROL 62.5/25MCG 7 PUFFS/INHALER INH SCH (08:47)
[2020-10-02] MEDS: PREGABALIN 100 MG CAP PO SCH ×2 (08:50→20:57)
[2020-10-02] MEDS: POLYETHYLENE (MIRALAX) 17 GM PACK PO SCH ×2 (08:50→20:59)
[2020-10-02] MEDS: DOCUSATE SODIUM 100 MG CAP PO SCH ×2 (08:50→20:57)
[2020-10-02] MEDS: HYDROmorphone INJ 0.5 MG/0.5 ML SYR IV PRN ×2 (08:52→21:08)
--- NOTE | 2020-10-02 09:36 | Progress Notes ---
DATE: 10/02/2020 SUBJECTIVE: A 59-year-old white female postop day 2 from I and D left leg infection after ORIF. She is doing better. Pain seems to be a little bit improved. No new complaints. OBJECTIVE: VITAL SIGNS: Temperature 36.9. Vital signs stable. GENERAL: Shows a pleasant, middle-aged female. She is sitting up in bed and looks at baseline. Looks comfortable. EXTREMITIES: Examination of the left leg with the dressing removed reveals very minimal drainage. Leg is well aligned. Wound is well approximated. Calf is soft and supple. She can dorsiflex and plantarflex her foot appropriately. LABORATORY DATA: Hemoglobin 8.4. Hematocrit 25.5. White cell count 13.34. Creatinine improved at 1.25. Culture results are growing staph. Sensitivities are consistent with methicillin-sensitive staph. ASSESSMENT: A 59-year-old female postop day 2 from I and D of a left leg infection after ORIF. She is growing methicillin-sensitive staph. Wound looks good today. PLAN: 1. DVT prophylaxis including thigh-high TEDs, SCDs, and she can go back on any anticoagulation at this point. 2. PT/OT. She is touch weightbearing left leg for the next 2-4 weeks. 3. Routine wound care left leg. We do need to avoid pressure ulcers on her heel. 4. Disposition: She is orthopedically okay for discharge any time medically stable. She is going to need at least 4 weeks of IV antibiotics. She will likely need probably 3 months of p.o. antibiotics. Hopefully, we can clear this wound. I do think her status is still guarded considering her medical comorbidities underlying diabetes.
[2020-10-02] MEDS: ceFAZolin 2000MG 2,000 MG/15 ML SYR IV SCH ×2 (13:51→21:47)
[2020-10-02] MEDS: DIGOXIN 0.125 MG TAB PO SCH (15:50)
--- NOTE | 2020-10-02 16:11 | Billing Data ---
Date of Service October 02, 2020 Coding Level of Care Code 63057 Subseq Hosp Care Lvl 3
[2020-10-02] MEDS: traZODone HCL 100 MG TAB PO SCH (20:57)
[2020-10-02] MEDS: hydrOXYzine HCl 25 MG TAB PO SCH (20:58)
[2020-10-02] MEDS: SACUBITRIL-VALSARTAN 24-26 MG TAB PO SCH (20:58)
[2020-10-02] MEDS: SENNA 8.6 MG TAB PO SCH (20:58)
[2020-10-02] MEDS: QUEtiapine FUMARATE 200 MG TAB PO SCH (21:48)
[2020-10-03] MEDS: HYDROmorphone INJ 0.5 MG/0.5 ML SYR IV PRN ×2 (04:40→10:05)
[2020-10-03] MEDS: ceFAZolin 2000MG 2,000 MG/15 ML SYR IV SCH ×3 (05:58→21:21)
[2020-10-03] MEDS: PANTOprazole 40 MG TAB PO SCH (05:58)
[2020-10-03 06:51] LABS: Basophils # (auto) 0.04 K/uL (0-0.2); Basophils % (auto) 0.3 %; Eosinophils # (auto) 0.58 K/uL (0-0.5); Eosinophils % (auto) 4.4 %; Hematocrit (blood only) 29.8 % (37-47); Hemoglobin 9.5 g/dL (12.0-16.0); Immature Granulocytes # (auto) 0.24 K/uL (0.00-0.02); Immature Granulocytes % (auto) 1.8 %; Lymphocytes # (auto) 1.98 K/uL (1.2-3.4); Lymphocytes % (auto) 15.1 %; Mean Corpuscular Hgb Conc 31.9 g/dL (32-36); Mean Corpuscular Volume 87.9 fL (80-100); Monocytes # (auto) 0.98 K/uL (0.11-0.59); Monocytes % (auto) 7.5 %; Neutrophils # (auto) 9.33 K/uL (1.4-6.5); Neutrophils % (auto) 70.9 %; Nucleated RBC # (auto) 0.18 K/uL (0-0); Nucleated RBC % (auto) 1.4 %; Platelet Count 434 K/uL (130-400); RDW Coefficient of Variation 16.3 % (11.5-14.5); RDW Standard Deviation 51.8 fL (36.4-46.3); Red Blood Count 3.39 M/uL (4.2-5.4); White Blood Count 13.15 K/uL (4.8-10.8)
[2020-10-03] MEDS ORDERED: MICONAZOLE NITRATE POWDER 43 GM EXT PRN (07:11)
[2020-10-03 07:17] LABS: BUN Creatinine Ratio 10.3 (10-20); Calcium 9.2 mg/dl (8.5-10.1); Creatinine Clr Calc Pharmacy 76.1 ml/min; Est GFR (African American) 64.8; Est GFR (Non-African American) 55.9; Potassium 3.8 mmol/L (3.5-5.1)
[2020-10-03] MEDS: traMADol HCL 50 MG TABLET PO PRN ×3 (07:53→19:41)
--- NOTE | 2020-10-03 08:19 | Hospitalist Progress Note ---
Date of Service October 03, 2020 Assessment & Plan (1) Sepsis: #Sepsis secondary to left lower extremity infection On admission meeting SIRS criteria, patient tachycardic, tachypneic, leukocytosis with WBC=23.69 with neutrophil predominance and bands, thrombocytosis with [id number], suspect acute phase reaction in setting of infection. Elevated lactate of 3.2 which improved slighlty to 2.5 - patient with chronically elevated lactate. Unclear source of infection. CT chest with no PNA. UA and blood cultures pending. She does have slight increase in LFTs with T-bili of 1.9, AP of 293 suggesting possible GI source, however, no abdominal pain on deep palpation. No RUQ pain. Negative Clarke's sign. Additional source of infection could be left ankle - she is 1 month out from her ORIF, hardware in place. No signs or symptoms of skin infection in her left lower extremity, right upper quadrant ultrasound demonstrating hepatic steatosis. Patient endorsing diffuse abdominal tenderness today on exam, obtain CT abdomen pelvis with contrast, negative study with the exception of extensive stool burden. X-ray of her left ankle showing no obvious signs of infection, repeat lactate demonstrated downtrending. Source identified left lower extremity, evaluated by orthopedics 09/29, to the OR 09/30. Cultures continue to demonstrate any growth today continue empiric therapy pending instrumentation and sensitivities -Source identified, left lower extremities -Orthopedics consulted -OR for irrigation and debridement -pod# s/p I&D LLE -> Gram stain from the OR demonstrating GPC's -Cultures demonstrating pansensitive staph d/c cefipime and Vanco -Cefazolin will need 4 weeks IV antibiotics as an outpatient -Day iv abx -PICC line placement closer to discharge -Trend CBC -wbc:23.69->21.77->17.36->12.8->13.3->13.1 -Tylenol PRN fever #A. fib with RVR Patient with AF with RVR. HR 140-170 here. Minimally responsive to IVF. Digoxin subtherapeutic at 0.5. Long history of A. fib, difficult to control. Suspect secondary to underlying sepsis and will improve with source control and improvement infection. 09/30 patient having difficult to control blood pressures and heart rate postoperatively. Attempted multiple boluses of 250 mL without success, started amiodarone drip at approximately 1700. Evening resident obtain repeat H&H and attempted to provide a unit of blood when the patient had an acute episode of hypotension necessitating transfer to the ICU. Overnight in the ICU as her maps have maintained 65, there is been no need for pressor therapy thus far. -Rate controlled -DC'd amiodarone -Resumed home meds -Resumed metoprolol succinate 150mg po daily -Continue Digoxin 0.125mg po daily -Resume Xarelto 20mg po daily #Itching thought to be secondary to scabies Patient with a history of itching throughout her body, with associated increased severity in between her thumb and first finger, no associated rash, and history of residing in a longterm all are concerning for scabies. She reports that her symptoms started after discharge from rehab facility, and have been persistent since then despite antibiotic therapy, corticosteroids, medication adjustments, and environmental changes. She describes an itching sensation that is persistent, but she continues to itch until scabs and excoriations develop. -permethrin cream from the neck down. #Hypotension thought to be secondary to relative adrenal insufficiency -dc'd stress roid dose #Fracture of tibia and fibula Patient with cast in place. She follows with Ortho -Tramadol 50mg po q6 hours PRN -Consulted orthopedics, appreciate recs -Monitor hemoglobin -hgb stable -We will need 4 weeks IV antibiotics on discharge -Left side touch weightbearing only #Anxiety/mood disorder/schizoaffective disorder Chronic. Patient follows at [facility] -Continue Hydroxyzine 50mg po qHS -QTC 390 -> resumed seroquel #COPD Patient with no cough or wheeze. Seems to be compensated -Continue Umeclidinium/Vilanterol -Xopenex neb PRN #CHF Patient appears to be well compensated, not overtly volume overloaded -Presumed metoprolol -Resumed Entresto BID -Cautious use of fluids in presumed sepsis with close monitoring of volume status -Holding Lasix PO for now #Gerd Chronic -Continue Protonix 40mg po daily #Diabetes type 2 Controlled. Last Hgb A1C = 6.5 on 08/12/20 -Hold Metformin while hospitalized -Lantus 5u BID -ISS -Goal blood sugar 100 - 140 -Continue Lyrica 100mg po BID for neuropathy #Hypertension Blood pressure stable -Resumed Metoprolol -Resumed Entresto -Monitor FENa: Advance diet as tolerated status post surgery Code Status: Full DVT PPX: Rivaroxaban 20 mg p.o. daily PT/OT: Consulted recommending rehab on discharge Dispo: Karon Sanchez MD PGY 2, FCM This chart was completed utilizing [employer] voice recognition software. Grammatical errors, random word insertions, pronoun errors, and in complete sentences are an occasional consequence of the system. Any questions or concer ns about the content, text, or information contained within the body of this dictation should be addressed directly to the physician for clarification. Admission and Anticipated Discharge Date Admission Date: September 28, 2020 Supervising Physician Co-Signing Physician Notes I personally examined the patient and verified all eugene points of history and exam, discussed case, and agree with decision making with Dr Sanchez. feeling ok overall. no new issues no new problems Vitals noted, resting comfortably no distress. HEENT normocephalic atraumatic mucous membranes moist. Breathing unlabored no accessory muscle use good effort. Skin shows no rashes no pallor or icterus. Neuro shows no focal deficits at rest. Sepsisafter further review, was in fact septic ankle/incisional infectionthis has been cleared out operatively, MSSA. changed to cephazolin, for 4-6wks IV depending on response/progress Hypotensionafter review appears to have been due to relative adrenal insufficiency. Improved nicely on hydrocortisone IV. wean, probably endocrine eval as outpt - may have all related to acuity of illness but not 100 % clear that this was the case A. fib/RVRrate now controlled back on home meds, anticoagulated Chronic hypoxic respiratory failurearound her baseline oxygen requirement, breathing has been stable Deep sleepshe notes a sleep study a year ago and recalls she did not need CPAP then, may be worth repeating given how slow she was to wake at the bedside. Continue to follow. goal for rehab once approved Subjective .Patient lying in bed this morning reporting feeling much better. Patient reports not sleeping very well overnight, he endorses significant itching. Obtaining a further history of her itching, she states it started after discharge from the rehab facility, is worse to moist areas, is bad in between the digits of her thumb and first finger, will occur it randomly, and she will itch to the point of scabbing. Otherwise patient reports tolerating her diet, voiding, has not had a bowel movement in several days, sleeping intermittently. All questions answered, acute concerns relate to itching Physical Exam Physical Exam: General: Lying in bed in no acute distress HEENT: Normocephalic atraumatic Neck: Normal to visual inspection Cardiac: Irregularly irregular rhythm, pedal edema, negative calf tenderness Respiratory: Clear to auscultation bilaterally with symmetrical chest expansion I did not appreciate any significant wheezes, rales, rhonchi, GI: Soft nontender nondistended Skin: Excoriations throughout her body with associated scabs, no overt erythema or edema, warmth, or pus, excoriations and scabs in between her first finger and thumb Neuro: Alert and oriented x4, mental status significantly improved from prior Psych: Calm and cooperative with interview Results & Data Results & Data ([facility]) Vital Signs (Past 12 Hours) Vital Signs Temp Pulse Resp BP Pulse Ox 10/03/20 07:26 36.5 C 101 H 18 117/64 97 10/03/20 00:04 36.5 C 99 H 18 104/71 96 Resident Activity Tracking Resident Involvement: Resident Care Provided Care Provided: Adult Hospital Medicine (1) Sepsis Sepsis acute organ dysfunction status: without acute organ dysfunction Sepsis type: sepsis due to unspecified organism Qualified Code(s): A41.9 - Sepsis, unspecified organism
[2020-10-03] MEDS: INSULIN ASPART 100 UNITS/ML 3 ML PEN SC SCH ×4 (08:30→19:33)
--- NOTE | 2020-10-03 08:45 | Progress Notes ---
DATE: 10/03/2020 SUBJECTIVE: A 59-year-old female postoperative day #3 from I and D of a left leg infection after ORIF. She is doing pretty well. Pain seems to be improving. No new complaints. OBJECTIVE: VITAL SIGNS: Temperature 36.5. Vital signs stable. GENERAL: Reveals a pleasant middle-aged female. She is lying in bed and I had to wake her this morning. She looks completely comfortable. EXTREMITIES: Examination of the left leg reveals the wound to be well approximated. Just a trace bit of a bloody type drainage. She can dorsiflex and plantarflex her foot appropriately. She is neurologically intact. LABORATORY DATA: Hemoglobin 9.5. Hematocrit 29.8. White cell count 13.15. Electrolytes are stable with a creatinine improved at 1.09. CULTURE: Results are growing methicillin-sensitive staph. ASSESSMENT: A 59-year-old white female 3 days out from I and D of a left leg infection after ORIF. Cultures are growing methicillin-sensitive staph. Antibiotics have been changed to Ancef. Wound looks pretty good and looks to be healing. PLAN: 1. DVT prophylaxis including thigh-high TEDs, SCDs, and she can be back on her regular anticoagulation. 2. PT/OT. She is touch weightbearing left leg for the next 2-4 weeks. 3. Routine wound care. 4. Medical management as medicine service. 5. Disposition: She is orthopedically okay for discharge any time. She will need 4 weeks of IV antibiotics and then we will determine additional antibiotics after that. Any orthopedic questions can be directed to me at [phone].
[2020-10-03] MEDS ORDERED: POLYETHYLENE (MIRALAX) 17 GM PACK PO ONE (09:30)
[2020-10-03] MEDS: UMECLIDINIUM/VILANTEROL 62.5/25MCG 7 PUFFS/INHALER INH SCH (09:47)
[2020-10-03] MEDS: THIAMINE HCL 100 MG TAB PO SCH (09:47)
[2020-10-03] MEDS: MULTIVITAMIN TAB PO SCH (09:47)
[2020-10-03] MEDS: METOPROLOL SUCC 50MG EXT REL TAB PO SCH (09:47)
[2020-10-03] MEDS: ATORVASTATIN 10 MG TAB PO SCH (09:48)
[2020-10-03] MEDS: ASCORBIC ACID 500 MG TAB PO SCH ×2 (09:48→17:16)
[2020-10-03] MEDS: FERROUS GLUCONATE 324 MG TAB PO SCH ×2 (09:48→17:16)
[2020-10-03] MEDS ORDERED: PERMETHRIN 5% CR 60 GM TUBE EXT ONE (10:00)
[2020-10-03] MEDS: SACUBITRIL-VALSARTAN 24-26 MG TAB PO SCH ×2 (10:04→21:00)
[2020-10-03] MEDS: POLYETHYLENE (MIRALAX) 17 GM PACK PO SCH ×3 (10:05→19:32)
[2020-10-03] MEDS: PREGABALIN 100 MG CAP PO SCH ×2 (10:05→21:00)
[2020-10-03] MEDS: DOCUSATE SODIUM 100 MG CAP PO SCH ×2 (10:05→19:31)
[2020-10-03] MEDS: QUEtiapine FUMARATE 100 MG TABLET PO SCH (11:46)
--- NOTE | 2020-10-03 13:35 | Electrocardiogram Report ---
Test Reason : Blood Pressure : / mmHG Vent. Rate : 092 BPM Atrial Rate : 375 BPM P-R Int : 000 ms QRS Dur : 102 ms QT Int : 316 ms P-R-T Axes : 000 098 168 degrees QTc Int : 390 ms Atrial fibrillation Rightward axis Possible Anterior infarct (cited on or before 01-OCT-2020) Abnormal ECG When compared with ECG of 01-OCT-2020 04:58, No significant change was found Confirmed by Nolan Douglas ([id number]) on 10/03/2020 1:35:13 PM Referred By: REFERRED SELF Confirmed By:Nolan Douglas
[2020-10-03] MEDS: ACETAMINOPHEN 325 MG TAB PO PRN ×2 (13:45→19:41)
[2020-10-03] MEDS: DIGOXIN 0.125 MG TAB PO SCH (17:16)
--- NOTE | 2020-10-03 17:23 | Billing Data ---
Date of Service October 03, 2020 Coding Level of Care Code 31665 Subseq Hosp Care Lvl 3
[2020-10-03] MEDS: SENNA 8.6 MG TAB PO SCH (19:33)
[2020-10-03] MEDS: QUEtiapine FUMARATE 200 MG TAB PO SCH (21:00)
[2020-10-03] MEDS: hydrOXYzine HCl 25 MG TAB PO SCH (21:00)
[2020-10-03] MEDS: traZODone HCL 100 MG TAB PO SCH (21:00)
[2020-10-04] MEDS: traMADol HCL 50 MG TABLET PO PRN ×3 (03:31→21:52)
[2020-10-04] MEDS: ceFAZolin 2000MG 2,000 MG/15 ML SYR IV SCH ×3 (05:23→21:52)
[2020-10-04] MEDS: PANTOprazole 40 MG TAB PO SCH (05:23)
[2020-10-04] MEDS: INSULIN ASPART 100 UNITS/ML 3 ML PEN SC SCH ×4 (09:00→23:13)
[2020-10-04] MEDS: ASCORBIC ACID 500 MG TAB PO SCH ×2 (09:01→16:24)
[2020-10-04] MEDS: FERROUS GLUCONATE 324 MG TAB PO SCH ×2 (09:01→16:24)
[2020-10-04] MEDS: ATORVASTATIN 10 MG TAB PO SCH (09:02)
[2020-10-04] MEDS: MULTIVITAMIN TAB PO SCH (09:03)
[2020-10-04] MEDS: METOPROLOL SUCC 50MG EXT REL TAB PO SCH (09:03)
[2020-10-04] MEDS: DOCUSATE SODIUM 100 MG CAP PO SCH ×2 (09:03→21:36)
[2020-10-04] MEDS: POLYETHYLENE (MIRALAX) 17 GM PACK PO SCH ×3 (09:04→21:25)
[2020-10-04] MEDS: QUEtiapine FUMARATE 100 MG TABLET PO SCH (09:04)
[2020-10-04] MEDS: THIAMINE HCL 100 MG TAB PO SCH (09:05)
[2020-10-04] MEDS: SACUBITRIL-VALSARTAN 24-26 MG TAB PO SCH ×2 (09:05→21:37)
[2020-10-04] MEDS: UMECLIDINIUM/VILANTEROL 62.5/25MCG 7 PUFFS/INHALER INH SCH (09:07)
[2020-10-04] MEDS: HYDROmorphone INJ 0.5 MG/0.5 ML SYR IV PRN ×2 (09:15→21:52)
[2020-10-04] MEDS: PREGABALIN 100 MG CAP PO SCH ×2 (09:16→21:37)
[2020-10-04] MEDS ORDERED: HYDROCORTISONE 2.5% CR 30 GM TUBE EXT PRN (10:24)
[2020-10-04] MEDS: diphenhydrAMINE Capsule 25 MG CAP PO PRN (11:07)
--- NOTE | 2020-10-04 13:55 | Hospitalist Progress Note ---
Date of Service October 04, 2020 Assessment & Plan (1) Sepsis: Sepsis secondary to left lower extremity infection On admission meeting SIRS criteria, patient tachycardic, tachypneic, leukocytosis with WBC=23.69 with neutrophil predominance and bands, thrombocytosis with zbnlkjput=639, suspect acute phase reaction in setting of infection. Elevated lactate of 3.2 which improved slighlty to 2.5 - patient with chronically elevated lactate. Unclear source of infection. CT chest with no PNA. UA and blood cultures pending. She does have slight increase in LFTs with T-bili of 1.9, AP of 293 suggesting possible GI source, however, no abdominal pain on deep palpation. No RUQ pain. Negative Clarke's sign. Additional source of infection could be left ankle - she is 1 month out from her ORIF, hardware in place. No signs or symptoms of skin infection in her left lower extremity, right upper quadrant ultrasound demonstrating hepatic steatosis. Patient endorsing diffuse abdominal tenderness today on exam, obtain CT abdomen pelvis with contrast, negative study with the exception of extensive stool burden. X-ray of her left ankle showing no obvious signs of infection, repeat lactate demonstrated downtrending. Source identified left lower extremity, evaluated by orthopedics 09/29, to the OR 09/30. Cultures continue to demonstrate any growth today continue empiric therapy pending instrumentation and sensitivities -Source identified, left lower extremities -Orthopedics consulted -OR for irrigation and debridement -pod#4 s/p I&D LLE -> Gram stain from the OR demonstrating GPC's -Cultures demonstrating pansensitive staph d/c cefipime and Vanco -Cefazolin will need 4 weeks IV antibiotics as an outpatient -Day iv abx -PICC line placement closer to discharge -Trend CBC -wbc:23.69->21.77->17.36->12.8->13.3->13.1>13.15 -Tylenol PRN fever A. fib with RVR Patient with AF with RVR. HR 140-170 here. Minimally responsive to IVF. Digoxin subtherapeutic at 0.5. Long history of A. fib, difficult to control. Suspect secondary to underlying sepsis and will improve with source control and improvement infection. 09/30 patient having difficult to control blood pressures and heart rate postoperatively. Attempted multiple boluses of 250 mL without success, started amiodarone drip at approximately 1700. Evening resident obtain repeat H&H and attempted to provide a unit of blood when the patient had an acute episode of hypotension necessitating transfer to the ICU. Overnight in the ICU as her maps have maintained 65, there is been no need for pressor therapy thus far. -Rate controlled -DC'd amiodarone -Resumed home meds -Resumed metoprolol succinate 150mg po daily -Continue Digoxin 0.125mg po daily -Resume Xarelto 20mg po daily Itching thought to be secondary to scabies Patient with a history of itching throughout her body, with associated increased severity in between her thumb and first finger, no associated rash, and history of residing in a usp all are concerning for scabies. She reports that her symptoms started after discharge from rehab facility, and have been persistent since then despite antibiotic therapy, corticosteroids, medication adjustments, and environmental changes. She describes an itching sensation that is persistent, but she continues to itch until scabs and excoriations develop. -permethrin cream from the neck down. Hypotension thought to be secondary to relative adrenal insufficiency -dc'd stress roid dose Fracture of tibia and fibula Patient with cast in place. She follows with Ortho -Tramadol 50mg po q6 hours PRN -Consulted orthopedics, appreciate recs -Monitor hemoglobin -hgb stable -We will need 4 weeks IV antibiotics on discharge -Left side touch weightbearing only Anxiety/mood disorder/schizoaffective disorder Chronic. Patient follows at [facility] -Continue Hydroxyzine 50mg po qHS -QTC 390 -> resumed seroquel COPD Patient with no cough or wheeze. Seems to be compensated -Continue Umeclidinium/Vilanterol -Xopenex neb PRN CHF Patient appears to be well compensated, not overtly volume overloaded -Presumed metoprolol -Resumed Entresto BID -Cautious use of fluids in presumed sepsis with close monitoring of volume status -Holding Lasix PO for now GERD Chronic -Continue Protonix 40mg po daily Diabetes type 2 Controlled. Last Hgb A1C = 6.5 on 08/12/20 -Hold Metformin while hospitalized -Lantus 5u BID -ISS -Goal blood sugar 100 - 140 -Continue Lyrica 100mg po BID for neuropathy Hypertension Blood pressure stable -Resumed Metoprolol -Resumed Entresto -Monitor FENa: Advance diet as tolerated status post surgery Code Status: Full DVT PPX: Rivaroxaban 20 mg p.o. daily PT/OT: Consulted recommending rehab on discharge Dispo: MedSurg. Awaiting bed at [facility] Admission and Anticipated Discharge Date Admission Date: September 28, 2020 Supervising Physician Co-Signing Physician Notes I personally examined the patient and verified all eugene points of history and exam, discussed case, and agree with decision making with Dr Ng. No new problems, pleased that she will be going to [facility]. Discussed with case managementbasically just waiting on bed availability. Vitals noted, resting comfortably no distress. HEENT normocephalic atraumatic mucous membranes moist. Breathing unlabored no accessory muscle use good effort. Skin shows no rashes no pallor or icterus. Neuro shows no focal deficits at rest. Sepsisafter further review, was in fact septic ankle/incisional infectionthis has been cleared out operatively, MSSA. Cefazolin for 4 to 6 weeks, depending on her response and progress Hypotensionafter review appears to have been due to relative adrenal insufficiency. Improved nicely on hydrocortisone IV. wean, probably endocrine eval as outpt - may have all related to acuity of illness but not 100 % clear that this was the case, blood pressures have now been stable for about 48 hours A. fib/RVRanticoagulated, rate controlled Chronic hypoxic respiratory failurearound her baseline oxygen requirement, breathing has been stable Deep sleepshe notes a sleep study a year ago and recalls she did not need CPAP then, may be worth repeating given how slow she was to wake at the bedside. Continue to follow. goal for rehab once bed is available Subjective Seen at bedside this AM, no acute overnight events. Reports still feeling better. Endorses significant itching that is helped with steroid cream and Benadryl. Awaiting bed at [facility]. No other acute concerns or complaints. Review of Systems Review of Systems: All systems reviewed & are unremarkable except as noted in HPI & below Physical Exam Constitutional: WD/WN, vitals as above Eyes: PERRL, conjunctivae normal, anicteric sclerae ENMT: external ear and nose normal, oropharynx normal Respiratory: normal respiratory effort, lungs clear to auscultation Cardiovascular: Rate/Rhythm: regular rate and + irregularly irregular Gastrointestinal (Abdomen): normal bowel sounds, soft, nontender, no hepatosplenomegaly Musculoskeletal: L ankle cast Skin: Excoriations throughout her body with associated scabs, no overt erythema or edema, warmth, or pus, excoriations and scabs in between her first finger and thumb Psychiatric: A+Ox3, euthymic affect Results & Data Results & Data ([facility]) Vital Signs (Past 12 Hours) Vital Signs Temp Pulse Resp BP Pulse Ox 10/04/20 07:30 36.7 C 66 18 110/72 99 10/04/20 03:58 104/73 Laboratory Results Laboratory Results - last 24 hr 10/03/20 10/03/20 10/04/20 19:31 20:48 08:05 POC Glucose 105 H 82 Stool Occult Bld Scrn Negative 10/04/20 12:03 POC Glucose 116 H Stool Occult Bld Scrn Medications Administered Current Inpatient Medications Acetaminophen (Acetaminophen 325 Mg Tab) 650 mg PO Q4H PRN PRN Reason: Pain or Fever Stop: 10/28/20 22:42 Last Admin: 10/03/20 19:41 Dose: 650 mg Documented by: Al Hydrox/Mg Hydrox/Simethicone (Aluminum/Magnesium Susp 30 Ml Udc) 15 ml PO Q4H PRN PRN Reason: Heartburn Stop: 10/30/20 12:52 Ascorbic Acid (Ascorbic Acid 500 Mg Tab) 500 mg PO BIDM [facility] Stop: 10/30/20 16:59 Last Admin: 10/04/20 09:01 Dose: 500 mg Documented by: Atorvastatin Calcium (Atorvastatin 10 Mg Tab) 10 mg PO QAM [facility] Stop: 10/29/20 08:59 Last Admin: 10/04/20 09:02 Dose: 10 mg Documented by: Bisacodyl (Bisacodyl 10 Mg Supp) 10 mg [place] DAILY PRN PRN Reason: Constipation Stop: 10/30/20 12:52 Dextrose (Dextrose 50% 50 Ml Syringe) 25 - 50 ml IV UD PRN; Protocol PRN Reason: Hypoglycemia Protocol Stop: 10/28/20 22:42 Digoxin (Digoxin 0.125 Mg Tab) 0.125 mg PO DAILY@1600 [facility] Stop: 10/29/20 15:59 Last Admin: 10/03/20 17:16 Dose: Not Given Documented by: Diphenhydramine HCl (Diphenhydramine Capsule 25 Mg Cap) 50 mg PO Q12H PRN PRN Reason: itching Stop: 11/03/20 10:23 Last Admin: 10/04/20 11:07 Dose: 50 mg Documented by: Docusate Sodium (Docusate Sodium 100 Mg Cap) 100 mg PO BID [facility] Stop: 10/29/20 08:59 Last Admin: 10/04/20 09:03 Dose: Not Given Documented by: Ferrous Gluconate (Ferrous Gluconate 324 Mg Tab) 324 mg PO BIDM [facility] Stop: 10/30/20 16:59 Last Admin: 10/04/20 09:01 Dose: 324 mg Documented by: Glucagon (Glucagon For Inj 1 Mg Vial) 1 mg SQ UD PRN; Protocol PRN Reason: Hypoglycemia Protocol Stop: 10/28/20 22:42 Glucose (Glucose 10 Tabs/Tube) 4 - 8 tabs PO UD PRN; Protocol PRN Reason: Hypoglycemia Protocol Stop: 10/28/20 22:42 Glucose (Glucose 40% Gel 15 Gm Tube) 15 - 30 gm PO UD PRN; Protocol PRN Reason: Hypoglycemia Protocol Stop: 10/28/20 22:42 Hydrocortisone (Hydrocortisone 2.5% Cr 30 Gm Tube) 1 appln EXT Q6H PRN PRN Reason: itching Stop: 11/03/20 10:23 Last Admin: 10/04/20 11:07 Dose: 1 appln Documented by: Hydromorphone HCl (Hydromorphone Inj 0.5 Mg/0.5 Ml Syr) 0.5 mg IV Q4H PRN PRN Reason: Pain or Pre PT Stop: 10/14/20 12:52 Last Admin: 10/04/20 09:15 Dose: 0.5 mg Documented by: Hydroxyzine HCl (Hydroxyzine Hcl 25 Mg Tab) 50 mg PO HS [facility] Stop: 10/29/20 20:59 Last Admin: 10/03/20 21:00 Dose: Not Given Documented by: Cefazolin Sodium (Ancef 2000mg) 2,000 mg in 15 mls @ 3.75 mls/min IV Q8H [facility] Stop: 11/13/20 13:59 Last Admin: 10/04/20 05:23 Dose: 3.75 mls/min Documented by: Insulin Aspart (Insulin Aspart 100 Units/Ml 3 Ml Pen) 0 units SC ACHS [facility] Stop: 10/28/20 23:14 Last Admin: 10/04/20 12:06 Dose: Not Given Documented by: Levalbuterol HCl (Levalbuterol Hcl 1.25 Mg/3 Ml Neb) 1.25 mg NEB Q4H PRN PRN Reason: Shortness Of Breath Stop: 10/29/20 03:29 Last Admin: 10/01/20 08:17 Dose: 1.25 mg Documented by: Levalbuterol HCl (Levalbuterol Hcl 0.63 Mg/3 Ml Neb) 0.63 mg INH Q4H PRN PRN Reason: Dyspnea Stop: 10/31/20 02:15 Magnesium Hydroxide (Magnesium Hydroxide Susp 30 Ml Udc) 30 ml PO Q6H PRN PRN Reason: Constipation Stop: 10/30/20 12:52 Metoclopramide HCl (Metoclopramide Hcl Inj 5 Mg/Ml 2 Ml Vial) 10 mg IV Q6H PRN PRN Reason: Nausea And Vomiting Stop: 10/30/20 12:52 Metoprolol Succinate (Metoprolol Succ 50mg Ext Rel Tab) 150 mg PO [facility] Stop: 10/29/20 08:59 Last Admin: 10/04/20 09:03 Dose: 150 mg Documented by: Miconazole Nitrate (Miconazole Nitrate Powder 43 Gm) 1 appln EXT PRN PRN PRN Reason: Affected Skin Folds Stop: 11/02/20 07:10 Miscellaneous (Carbohydrates For Hypoglycemia ) 15 - 30 gm PO UD PRN PRN Reason: Hypoglycemia Protocol Stop: 10/28/20 22:42 Multivitamins (Multivitamin Tab) 1 tab PO [facility] Stop: 10/31/20 08:59 Last Admin: 10/04/20 09:03 Dose: 1 tab Documented by: Naloxone HCl (Naloxone Hcl 0.4 Mg/1 Ml Vial/Carp) 0.1 mg IV Q5M PRN PRN Reason: Oversedation/Resp Depression Stop: 10/30/20 12:52 Ondansetron HCl (Ondansetron Inj 2 Mg/Ml 2 Ml Vial) 4 mg IV Q6H PRN PRN Reason: Nausea And Vomiting Stop: 10/30/20 12:52 Pantoprazole Sodium (Pantoprazole 40 Mg Tab) [facility]: 10/29/20 06:29 Last Admin: 10/04/20 05:23 Dose: 40 mg Documented by: Polyethylene Glycol (Polyethylene (Miralax) 17 Gm Pack) 17 gm PO BID [facility] Stop: 11/02/20 20:59 Last Admin: 10/04/20 09:04 Dose: 17 gm Documented by: Pregabalin (Pregabalin 100 Mg Cap) 100 mg PO BID [facility] Stop: 10/29/20 08:59 Last Admin: 10/04/20 09:16 Dose: 100 mg Documented by: Quetiapine Fumarate (Quetiapine Fumarate 200 Mg Tab) 400 mg PO [facility] Stop: 10/29/20 20:59 Last Admin: 10/03/20 21:00 Dose: Not Given Documented by: Quetiapine Fumarate (Quetiapine Fumarate 100 Mg Tablet) 100 mg PO QAM [facility] Stop: 10/29/20 08:59 Last Admin: 10/04/20 09:04 Dose: 100 mg Documented by: Sacubitril/Valsartan (Sacubitril-Valsartan 24-26 Mg Tab) 1 tab PO BID [facility] Stop: 10/29/20 08:59 Last Admin: 10/04/20 09:05 Dose: 1 tab Documented by: Sennosides (Senna 8.6 Mg Tab) 17.2 mg PO [facility] Stop: 10/30/20 20:59 Last Admin: 10/03/20 19:33 Dose: Not Given Documented by: Thiamine HCl (Thiamine Hcl 100 Mg Tab) 200 mg PO DAILY [facility] Stop: 10/29/20 08:59 Last Admin: 10/04/20 09:05 Dose: 200 mg Documented by: Tramadol HCl (Tramadol Hcl 50 Mg Tablet) 50 mg PO Q6 PRN PRN Reason: pain Stop: 10/29/20 02:49 Last Admin: 10/04/20 03:31 Dose: 50 mg Documented by: Trazodone HCl (Trazodone Hcl 100 Mg Tab) 200 mg PO [facility] Stop: 10/29/20 20:59 Last Admin: 10/03/20 21:00 Dose: Not Given Documented by: Umeclidinium/Vilanterol (Umeclidinium/Vilanterol 62.5/25mcg 7 Puffs/Inhaler) 1 puffs INH DAILY [facility] Stop: 10/29/20 08:59 Last Admin: 10/04/20 09:07 Dose: 1 puffs Documented by: Resident Activity Tracking Resident Involvement: Resident Care Provided Care Provided: Adult Hospital Medicine (1) Sepsis Sepsis acute organ dysfunction status: without acute organ dysfunction Sepsis type: sepsis due to unspecified organism Qualified Code(s): A41.9 - Sepsis, unspecified organism
--- NOTE | 2020-10-04 14:44 | Billing Data ---
Date of Service October 04, 2020 Coding Level of Care Code 63269 Subseq Hosp Care Lvl 2
[2020-10-04] MEDS: DIGOXIN 0.125 MG TAB PO SCH (15:07)
[2020-10-04] MEDS ORDERED: COUGH DROP (SUGAR FREE) LOZ 24 LOZ/1 BOX BUCCAL ONE (21:34)
[2020-10-04] MEDS: QUEtiapine FUMARATE 200 MG TAB PO SCH (21:37)
[2020-10-04] MEDS: traZODone HCL 100 MG TAB PO SCH (21:37)
[2020-10-04] MEDS: SENNA 8.6 MG TAB PO SCH (21:38)
[2020-10-04] MEDS: hydrOXYzine HCl 25 MG TAB PO SCH (21:52)
[2020-10-05] MEDS: ceFAZolin 2000MG 2,000 MG/15 ML SYR IV SCH (06:07)
[2020-10-05 07:44] LABS: Basophils # (auto) 0.02 K/uL (0-0.2); Basophils % (auto) 0.2 %; Eosinophils # (auto) 0.46 K/uL (0-0.5); Eosinophils % (auto) 3.7 %; Hematocrit (blood only) 26.4 % (37-47); Hemoglobin 8.6 g/dL (12.0-16.0); Immature Granulocytes # (auto) 0.12 K/uL (0.00-0.02); Lymphocytes # (auto) 2.01 K/uL (1.2-3.4); Mean Corpuscular Hemoglobin 28.7 pg (25-34); Mean Corpuscular Hgb Conc 32.6 g/dL (32-36); Mean Platelet Volume 8.7 fL (7.4-10.4); Monocytes # (auto) 0.72 K/uL (0.11-0.59); Monocytes % (auto) 5.7 %; Neutrophils # (auto) 9.27 K/uL (1.4-6.5); Neutrophils % (auto) 73.4 %; Nucleated RBC % (auto) 0.8 %; Platelet Count 465 K/uL (130-400); RDW Coefficient of Variation 16.6 % (11.5-14.5); RDW Standard Deviation 52.8 fL (36.4-46.3)
[2020-10-05 08:03] LABS: Est GFR (African American) 70.2; Est GFR (Non-African American) 60.6
[2020-10-05] MEDS: INSULIN ASPART 100 UNITS/ML 3 ML PEN SC SCH (08:42)
--- NOTE | 2020-10-05 08:51 | Progress Notes ---
DATE: 10/05/2020 SUBJECTIVE: A 59-year-old female postop day 5 from I and D of the left leg infection after ORIF. She continues to make gradual improvements. No new complaints today. Still having some leg pain. Seems to be improving. OBJECTIVE: VITAL SIGNS: Temperature 36.5. Vital signs stable. GENERAL: Shows a pleasant, middle-aged female. She is lying in bed and I had to wake her this morning. She looks comfortable. EXTREMITIES: Examination of the left leg reveals the wound to be well approximated. No significant drainage. Fairly minimal swelling. She can dorsiflex and plantarflex her foot appropriately. No redness. LABORATORY DATA: Hemoglobin 8.6. Hematocrit 26.4. White cell count 12.60. Electrolytes are stable. Creatinine is normal. ASSESSMENT: A 59-year-old white female now 5 days out from I and D of the left leg infection after ORIF growing out methicillin-sensitive staph. Wound seems to be healing reasonably well. She is tolerating the antibiotics. No need for further surgical intervention at this time. PLAN: We will continue the IV antibiotics were provided a total of 4 weeks. She will likely need some p.o. antibiotics after that. She can do some limited weightbearing on left leg. Routine wound care. It is okay to remove the bandage for wound care as well as bathing and shower and hygiene. She is okay to get in the shower with everything off, but just needs the wound rewrapped. I should see her back in 2-3 weeks from her surgery date. She is okay for orthopedic discharge any time medically stable. Any orthopedic questions can be directed to me at [phone].
[2020-10-05] MEDS: HYDROmorphone INJ 0.5 MG/0.5 ML SYR IV PRN (08:52)
[2020-10-05] MEDS: PREGABALIN 100 MG CAP PO SCH (08:52)
[2020-10-05] MEDS: diphenhydrAMINE Capsule 25 MG CAP PO PRN (08:52)
[2020-10-05] MEDS: PANTOprazole 40 MG TAB PO SCH (08:53)
[2020-10-05] MEDS: THIAMINE HCL 100 MG TAB PO SCH (08:54)
[2020-10-05] MEDS: SACUBITRIL-VALSARTAN 24-26 MG TAB PO SCH (08:54)
[2020-10-05] MEDS: QUEtiapine FUMARATE 100 MG TABLET PO SCH (08:55)
[2020-10-05] MEDS: MULTIVITAMIN TAB PO SCH (08:55)
[2020-10-05] MEDS: ASCORBIC ACID 500 MG TAB PO SCH (08:56)
[2020-10-05] MEDS: FERROUS GLUCONATE 324 MG TAB PO SCH (08:56)
[2020-10-05] MEDS: ATORVASTATIN 10 MG TAB PO SCH (08:57)
[2020-10-05] MEDS: METOPROLOL SUCC 50MG EXT REL TAB PO SCH (08:57)
[2020-10-05] MEDS: DOCUSATE SODIUM 100 MG CAP PO SCH (08:58)
[2020-10-05] MEDS: UMECLIDINIUM/VILANTEROL 62.5/25MCG 7 PUFFS/INHALER INH SCH (08:58)
[2020-10-05] MEDS: POLYETHYLENE (MIRALAX) 17 GM PACK PO SCH (08:59)
--- NOTE | 2020-10-05 11:12 | Discharge Summary ---
Date of Service October 05, 2020 Admission HPI Per Admitting Provider Patient is a poor historian and has some difficulty recounting events prior to arrival. Grazyna Gonzales is a 59yo female with multiple medical comorbidities presenting with left ankle pain, diffuse weakness, anxiety, SOB and difficulty performing ADLs at home. Patient reports that she has not been able to get around lately. She states she has been declining over the last several months. Patient lives alone and has a REGISTERED NURSE MIDWIFE 5 days/week. She reports she has been taking her medications She denies fevers but has had some chills and sweats. She denies headache, visual changes, neck pain or stiffness, denies chest pain, palpitations, cough, SOB, sputum production, abdominal pain, nausea, vomiting, diarrhea or constipation. She denies dysuria/hematuria, focal numbness or weakness. She denies rash or painful joints. Patient had a fall at home on 08/12/20 resulting in a left displaced and slightly comminuted tibia/fibula fracture. She had an open reduction/internal fixation performed on 08/13/[address] Sanchez. She has a slow healing wound - no evidence of infection as examined on 09/18/20. She is in a cast presently. Upon arrival to the ER patient was in significant distress. She was tachycardic, tachypneic, diaphoretic and stating that she was unable to breathe. She was requesting a box fan. ER Course: Jeniffer Montoya, NSS x 250 Principal Diagnosis L LE infection Discharge Exam Constitutional WD/WN, vitals as above Eyes PERRL, conjunctivae normal, anicteric sclerae ENMT external ear and nose normal, oropharynx normal Respiratory normal respiratory effort, lungs clear to auscultation Cardiovascular Rate/Rhythm: regular rate and + irregularly irregular Gastrointestinal (Abdomen) normal bowel sounds, soft, nontender, no hepatosplenomegaly Skin Excoriations throughout her body with associated scabs, no overt erythema or edema, warmth, or pus, excoriations and scabs in between her first finger and thumb Psychiatric A+Ox3, euthymic affect Discharge Data Allergies Allergy/AdvReac Type Severity Reaction Status Date / Time fentanyl Allergy Mild RASH,ITCHIN Verified 08/12/20 01:45 G oxycodone AdvReac Intermediate Verified 09/26/20 16:04 Consultations 09/29/20 16:14 Consult Orthopedic Surgery Routine 10/01/20 02:16 Consult Cell Room Operator Routine Procedures Performed Operation Date: 09/30/20 07:30 Actual Procedures p Left Leg Incision and Debridement of Infection(Left) - Lane Sanchez MD Ordered Studies 09/28/20 18:58 CT angio chest PE protocol Stat 09/28/20 22:43 US liver Urgent 09/29/20 11:22 CT abd pelvis oral and IV con Urgent Hospital Course (1) Sepsis: The following is the medical management during stay here: Sepsis secondary to left lower extremity infection On admission meeting SIRS criteria, patient tachycardic, tachypneic, leukocytosis with WBC=23.69 with neutrophil predominance and bands, t hrombocytosis with [id number], suspected acute phase reaction in setting of infection. Elevated lactate of 3.2 which improved slightly to 2.5 - patient with chronically elevated lactate. CT chest with no PNA. UA neg. She did have slight increase in LFTs with T-bili of 1.9, AP of 293 suggesting possible GI source, however, no abdominal pain on deep palpation. No RUQ pain. Negative Clarke's sign. Additional source of infection could be left ankle - she is 1 month out from her ORIF, hardware in place. No signs or symptoms of skin infection in her left lower extremity, right upper quadrant ultrasound demonstrating hepatic steatosis. Patient endorsed diffuse abdominal tenderness on exam, obtained CT abdomen pelvis with contrast, negative study with the exception of extensive stool burden. X-ray of her left ankle showing no obvious signs of infection, repeat lactate demonstrated downtrending. Source identified left lower extremity, evaluated by orthopedics 09/29, to the OR 09/30. Cultures continue to demonstrate any growth today continue empiric therapy pending instrumentation and sensitivities -Source identified, left lower extremities -Orthopedics consulted: POD#5 s/p I&D LLE -> Gram stain from the OR demonstrating Staph Aureus -Cultures demonstrating pansensitive staph, we discontinued cefipime and Vanco and started on cefazolin and will cont as below -IV Cefazolin 2g q8h will need 4 weeks IV antibiotics as an outpatient . Currently on Day IV abx. PICC line placed -She will likely need some p.o. antibiotics after that depending on clinical course. So, total antibiotics duration 4-6 weeks. -Trending CBC: WBC 23.69 initially ->13.15 on day of discharge -Tylenol PRN fever Fracture of tibia and fibula -Patient with cast in place. She follows with Ortho -Tramadol 50mg po q6 hours PRN -Consulted orthopedics, appreciate recs -Monitor hemoglobin -hgb stable 9.5 on day of discharge -We will need 4 weeks IV antibiotics on discharge as above. She will likely need some p.o. antibiotics after that. -She can do some limited weightbearing on left leg. Routine wound care. It is okay to remove the bandage for wound care as well as bathing and shower and hygiene. She is okay to get in the shower with everything off, but just needs the wound rewrapped -f/u with Ortho Dr. Sanchez in 2-3 weeks from her surgery date A. fib with RVR Patient with AF with RVR. HR 140-170 here. Minimally responsive to IVF. Digoxin subtherapeutic at 0.5. Long history of A. fib, difficult to control. Suspect secondary to underlying sepsis and will improve with source control and improvement infection. 09/30 patient having difficult to control blood pressures and heart rate postoperatively. Attempted multiple boluses of 250 mL without success, started amiodarone drip at approximately 1700. Evening resident obtain repeat H&H and attempted to provide a unit of blood when the patient had an acute episode of hypotension necessitating transfer to the ICU. Overnight in the ICU as her maps have maintained 65, there is been no need for pressor therapy thus far. -Rate controlled -DC'd amiodarone -Resumed home meds: Resumed metoprolol succinate 150mg po daily, Digoxin 0.125mg po daily, Xarelto 20mg po daily Itching thought to be secondary to scabies Patient with a history of itching throughout her body, with associated increased severity in between her thumb and first finger, no associated rash, and history of residing in a retirement all are concerning for scabies. She reports that her symptoms started after discharge from rehab facility, and have been persistent since then despite antibiotic therapy, corticosteroids, medication adjustments, and environmental changes. She describes an itching sensation that is persistent, but she continues to itch until scabs and excoriations develop. -permethrin cream from the neck down (Thoroughly massage into the skin from the neck to the soles of the feet. The cream should be removed by washing (shower or bath) after 8 to 14 hours). Hydrocortisone cream prn for itching. The itching is likely to get worse before it gets better which is normal course for scabies. Avoid Benadryl for itching given pt's psych history Hypotension thought to be secondary to relative adrenal insufficiency -BP stabe now for few days -appears to have been due to relative adrenal insufficiency. Improved nicely on hydrocortisone IV. Weaned off now -consider probable endocrine eval as outpt - may have all related to acuity of illness but not 100 % clear that this was the case Anxiety/mood disorder/schizoaffective disorder -Chronic. Patient follows at [facility] -Continue Hydroxyzine 50mg po qHS -QTC 390 -> resumed seroquel COPD/Chronic Hypoxic Resp Failure -Patient with no cough or wheeze. Seems to be compensated -Continue Umeclidinium/Vilanterol -Xopenex neb PRN -pt currently at baseline O2 needs ~3L NC -Deep sleepshe notes a sleep study a year ago and recalls she did not need CPAP then, may be worth repeating given how slow she was to wake at the bedside CHF -Patient appears to be well compensated, not overtly volume overloaded -Resumed metoprolol, Entresto BID -Cautious use of fluids in presumed sepsis with close monitoring of volume status -Holding Lasix PO for now. Resume on discharge GERD -Chronic -Continue Protonix 40mg po daily Diabetes type 2 -Controlled. Last Hgb A1C = 6.5 on 08/12/20 -Held Metformin while hospitalized, and placed on SSI. Resume home meds on d/c -Continue Lyrica 100mg po BID for neuropathy Hypertension -Blood pressure stable -Resumed Metoprolol and Entresto as above DVT PPX: Rivaroxaban 20 mg p.o. daily. PT/OT was consulted recommending rehab on discharge. At time of d/c, pt with no other acute concerns or complaints. ORTHO CARE: Touch weightbearing left leg Change dressing daily Dry dressing over incision site. May remove dressing for hygiene/shower,,,then replace. Total Time Total Time Spent Total Time Spent (In Minutes): <30 Discharge Plan Discharge Items Patient Disposition: Transfer Inpatient Rehab Fac Reason For Visit: FAILURE TO THRIVE Discharge Diagnosis: Left Leg Infection after ORIF Activity: Per Instructions section Activity Comment: TOuch weightbearing on left leg Weightbearing: Left toe touch Non-emergency contact: Primary Care Provider and Surgeon Call non-emergency contact if: you have any medication questions, your symptoms worsen, your pain is not controlled and your temperature is above 101.5 Follow-up/Referrals: Antonio Oliver MD [Primary Care Provider] - Lane Sanchez MD [Physician] - (Orthopedic follow-up 3 weeks from surgery date.) Diet: Carb Consistent or DM2 Addtl Attending Provider Instructions: The following is the medical management during stay here: Sepsis secondary to left lower extremity infection On admission meeting SIRS criteria, patient tachycardic, tachypneic, leukocytosis with WBC=23.69 with neutrophil predominance and bands, thrombocytosis with [id number], suspected acute phase reaction in setting of infection. Elevated lactate of 3.2 which improved slightly to 2.5 - patient with chronically elevated lactate. CT chest with no PNA. UA neg. She did have slight increase in LFTs with T-bili of 1.9, AP of 293 suggesting possible GI source, however, no abdominal pain on deep palpation. No RUQ pain. Negative Clarke's sign. Additional source of infection could be left ankle - she is 1 month out from her ORIF, hardware in place. No signs or symptoms of skin infec tion in her left lower extremity, right upper quadrant ultrasound demonstrating hepatic steatosis. Patient endorsed diffuse abdominal tenderness on exam, obtained CT abdomen pelvis with contrast, negative study with the exception of extensive stool burden. X-ray of her left ankle showing no obvious signs of infection, repeat lactate demonstrated downtrending. Source identified left lower extremity, evaluated by orthopedics 09/29, to the OR 09/30. Cultures continue to demonstrate any growth today continue empiric therapy pending instrumentation and sensitivities -Source identified, left lower extremities -Orthopedics consulted: POD#5 s/p I&D LLE -> Gram stain from the OR demonstrating Staph Aureus -Cultures demonstrating pansensitive staph, we discontinued cefipime and Vanco and started on cefazolin and will cont as below -IV Cefazolin 2g q8h will need 4 weeks IV antibiotics as an outpatient . Currently on Day IV abx. PICC line placed -She will likely need some p.o. antibiotics after that depending on clinical course. So, total antibiotics duration 4-6 weeks. -Trending CBC: WBC 23.69 initially ->13.15 on day of discharge -Tylenol PRN fever Fracture of tibia and fibula -Patient with cast in place. She follows with Ortho -Tramadol 50mg po q6 hours PRN -Consulted orthopedics, appreciate recs -Monitor hemoglobin -hgb stable 9.5 on day of discharge -We will need 4 weeks IV antibiotics on discharge as above. She will likely need some p.o. antibiotics after that. -She can do some limited weightbearing on left leg. Routine wound care. It is okay to remove the bandage for wound care as well as bathing and shower and hygiene. She is okay to get in the shower with everything off, but just needs the wound rewrapped -f/u with Ortho Dr. Sanchez in 2-3 weeks from her surgery date A. fib with RVR Patient with AF with RVR. HR 140-170 here. Minimally responsive to IVF. Digoxin subtherapeutic at 0.5. Long history of A. fib, difficult to control. Suspect secondary to underlying sepsis and will improve with source control and improvement infection. 09/30 patient having difficult to control blood pressures and heart rate postoperatively. Attempted multiple boluses of 250 mL without success, started amiodarone drip at approximately 1700. Evening resident obtain repeat H&H and attempted to provide a unit of blood when the patient had an acute episode of hypotension necessitating transfer to the ICU. Overnight in the ICU as her maps have maintained 65, there is been no need for pressor therapy thus far. -Rate controlled -DC'd amiodarone -Resumed home meds: Resumed metoprolol succinate 150mg po daily, Digoxin 0.125mg po daily, Xarelto 20mg po daily Itching thought to be secondary to scabies Patient with a history of itching throughout her body, with associated increased severity in between her thumb and first finger, no associated rash, and history of residing in a retirement all are concerning for scabies. She reports that her symptoms started after discharge from rehab facility, and have been persistent since then despite antibiotic therapy, corticosteroids, medication adjustments, and environmental changes. She describes an itching sensation that is persistent, but she continues to itch until scabs and excoriations develop. -permethrin cream from the neck down (Thoroughly massage into the skin from the neck to the soles of the feet. The cream should be removed by washing (shower or bath) after 8 to 14 hours). Hydrocortisone cream prn for itching. The itching is likely to get worse before it gets better which is normal course for scabies. Avoid Benadryl for itching given pt's psych history Hypotension thought to be secondary to relative adrenal insufficiency -BP stabe now for few days -appears to have been due to relative adrenal insufficiency. Improved nicely on hydrocortisone IV. Weaned off now -consider probable endocrine eval as outpt - may have all related to acuity of illness but not 100 % clear that this was the case Anxiety/mood disorder/schizoaffective disorder -Chronic. Patient follows at [facility] -Continue Hydroxyzine 50mg po qHS -QTC 390 -> resumed seroquel COPD/Chronic Hypoxic Resp Failure -Patient with no cough or wheeze. Seems to be compensated -Continue Umeclidinium/Vilanterol -Xopenex neb PRN -pt currently at baseline O2 needs ~3L NC -Deep sleepshe notes a sleep study a year ago and recalls she did not need CPAP then, may be worth repeating given how slow she was to wake at the bedside CHF -Patient appears to be well compensated, not overtly volume overloaded -Resumed metoprolol, Entresto BID -Cautious use of fluids in presumed sepsis with close monitoring of volume status -Holding Lasix PO for now. Resume on discharge GERD -Chronic -Continue Protonix 40mg po daily Diabetes type 2 -Controlled. Last Hgb A1C = 6.5 on 3/9/21 -Held Metformin while hospitalized, and placed on SSI. Resume home meds on d/c -Continue Lyrica 100mg po BID for neuropathy Hypertension -Blood pressure stable -Resumed Metoprolol and Entresto as above DVT PPX: Rivaroxaban 20 mg p.o. daily. PT/OT was consulted recommending rehab on discharge. At time of d/c, pt with no other acute concerns or complaints. ORTHO CARE: Touch weightbearing left leg Change dressing daily Dry dressing over incision site. May remove dressing for hygiene/shower,,,then replace. Pending Studies at Discharge: No Stand-Alone Forms: My [facility] Skilled Items Patient informed of condition?: Yes DNR: No Discharge Level of Care: Acute rehab Communicable Disease: Yes Discharge Prognosis: Stable Lines: PICC Urinary Catheter: No Medications and DC Order Prescriptions: New cefazolin 1 gram recon soln 2 g IV Q8H 21 Days RF: 0 permethrin 5 % cream 1 applic topical BID Qty: 60 RF: 0 Continued metformin 500 mg tablet 500 mg PO BID Qty: 60 RF: 5 quetiapine [Seroquel] 400 mg tablet 400 mg PO HS RF: 0 magnesium oxide 400 mg (241.3 mg magnesium) tablet 400 mg PO DAILY Qty: 30 RF: 3 digoxin 125 mcg (0.125 mg) tablet 125 mcg PO QAM Qty: 90 RF: 3 Xarelto 20 mg tablet 20 mg PO QAM Qty: 90 RF: 2 omeprazole 20 mg capsule,delayed release(DR/EC) 20 mg PO DAILYBB Qty: 90 RF: 3 (DME) Portable Oxygen Misc See Rx Instructions .MEDSUPPLY Qty: 1 RF: 0 furosemide 40 mg tablet 80 mg PO BID Qty: 120 RF: 5 Entresto 24-26 mg tablet 1 tab PO BID Qty: 60 RF: 2 acetaminophen 325 mg capsule 650 mg PO Q4H PRN (Reason: Pain) RF: 0 oxycodone 5 mg tablet 5 mg PO Q6H PRN (Reason: pain) Qty: 20 RF: 0 mecobalamin (vitamin B12) 1,000 mcg tablet,chewable 500 mcg PO DAILY Qty: 15 RF: 0 thiamine HCl (vitamin B1) 100 mg tablet 200 mg PO DAILY Qty: 60 RF: 0 Anoro Ellipta 62.5-25 mcg/actuation blister with device 1 inh INH Q24H Qty: 60 RF: 2 tramadol 50 mg tablet 50 mg PO Q6 PRN (Reason: pain) Qty: 40 RF: 0 (DME) CPAP Supplies Misc See Rx Instructions .ROUTE .MEDSUPPLY Qty: 1 RF: 0 potassium chloride 20 mEq tablet extended release 40 meq PO DAILY Qty: 180 RF: 3 pregabalin 100 mg capsule 100 mg PO BID 30 Days Qty: 60 RF: 3 docusate sodium [Colace] 100 mg capsule 100 mg PO BID Qty: 180 RF: 3 atorvastatin 10 mg tablet 10 mg PO QAM Qty: 90 RF: 3 metoprolol succinate 100 mg tablet extended release 24 hr 150 mg PO QAM Qty: 45 RF: 5 trazodone 100 mg tablet 200 mg PO HS RF: 0 hydroxyzine pamoate 50 mg Capsule 50 mg PO HS RF: 0 quetiapine [Seroquel] 100 mg Tablet 100 mg PO QAM RF: 0 (DME) Oxygen Home Liters Per Minute See Rx Instructions .ROUTE .MEDSUPPLY Qty: 1 RF: 0 Discharge Orders: Discharge Order (Routine); Ordered 10/05/20 Ordered By: Pastor Jakcson/Other Patient Handouts: Preventing Deep Vein Thrombosis, Scabies Admission Data Admit Date/Time: 09/28/20 20:42 Attending Provider: Chito Chamberlain Admit Provider: Luisa Sanchez Primary Care Provider: Antonio Oliver V. Other Providers: Luisa Sanchez ; [facility] ; Lane Sanchez ; Asher Platt Other Interventions: Discharge Summary Assessment (RN) Last Done: 10/05/20 11:11 Supervising Physician Co-Signing Physician Notes I personally examined the patient and verified all eugene points of history and exam, discussed case, and agree with decision making with Dr Ng. Still itchy. No other new complaints. Stable for encompass. Vitals noted, resting comfortably no distress. HEENT normocephalic atraumatic mucous membranes moist. Breathing unlabored no accessory muscle use good effort. Skin shows ongoing scabbed rash with excoriations as beforeI apologize prior documentation of "no rashes" was in error, no pallor or icterus. Neuro shows no focal deficits at rest. Sepsisafter further review, was in fact septic ankle/incisional infectionthis has been cleared out operatively, MSSA. Cefazolin for 4 to 6 weeks, depending on her response and progressstable for rehab Hypotensionafter review appears to have been due to relative adrenal insufficiency. Improved nicely on hydrocortisone IV. weaned, would ask for endocrine eval as outpt - may have all related to acuity of illness but not 100% clear that this was the case, blood pressures have now been stable for days off of IV steroids, so no need for ongoing treatment right now. A. fib/RVRanticoagulated, rate controlled Itchy rashseems consistent with scabies, treated for such. May get itchier over the next week or so before starting to improve. Steroid cream as needed. Chronic hypoxic respiratory failurearound her baseline oxygen requirement, breathing has been stable Deep sleepshe notes a sleep study a year ago and recalls she did not need CPAP then, may be worth repeating given how slow she was to wake at the bedside. Continue to follow. goal for rehab once bed is available Resident Activity Tracking Resident Involvement: Resident Care Provided Care Provided: Adult Hospital Medicine
--- NOTE | 2020-10-05 15:01 | Billing Data ---
Date of Service October 05, 2020 Coding Level of Care Code D/C Day Management <30 mins
--- NOTE | 2020-10-17 08:14 | Coding Query ---
DEBRIDEMENT DOCUMENTATION To promote full compliance with coding requirements relating to patient care, physician participation is requested in all cases of surgical coder uncertainty. Please assist us with the question(s) below: Please place an X in the parenthesis (x). If other, please document the finding: Type of Debridement: ( ) Excisional Debridement- Cutting away necrotic, devitalized tissue or slough to the level of viable tissue using a sharp instrument (i.e. scalpel, scissors, etc.) ( x) Non Excisional Debridement- The removal of necrotic, devitalized tissue or slough by means of scraping, mechanical brushing, flushing, or washing (i.e. irrigation,whirlpool);minor removal of loose fragments. ( ) Other (please specify): Depth of Debridement: ( ) Skin (x ) Skin and Subcutaneous Tissue ( ) Skin, Subcutaneous Tissue and Muscle ( ) Skin, Subcutaneous Tissue, Muscle and Bone ( ) Other (please specify): Thank you Piper MENDOSA
--- NOTE | 2020-10-17 08:43 | Coding Query ---
To promote full compliance with coding requirements relating to patient care, provider participation is requested in all cases of is support analyst uncertainty. Please assist us with the question(s) below: Coding Question(s): The diagnosis below was documented in the 10/01/20 Critical Care Consultation, then subsequently fell off all further documentation. Please indicate if it is still a possible diagnosis or ruled out. Physician's Response(s): ATN - (Critical Care Consultation on 10/01 documents, "AKIelevated creatinine of 1.45. Likely ATN given hypotension"). ( ) Diagnosed and POA ( ) Diagnosed and not POA ( x ) Ruled out ( ) Other (please specify) MTDD
--- NOTE | 2020-10-17 08:58 | Coding Query ---
CODING QUERY To promote full compliance with coding requirements relating to patient care, provider participation is requested in all cases of second baker uncertainty. Please assist us with the question(s) below: Coding Question(s): There is documentation in the record the 09/29 Orthopedic Consultation and on the 09/30 Operative Report of, "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", and on the 10/01 Critical Care Consultation of, "Sepsissource likely infected hardware", and documentation on Discharge Summary of, "Sepsisafter further review, was in fact septic ankle/incisional infectionthis has been cleared out operatively, MSSA". Please specify below, in your clinical opinion, regarding the Infection. ( ) Infection due to internal fixation device of left tibia and/or infected hardware ( ) septic ankle/incisional infection - postoperative complication ( ) Both infection due to internal fixation device fo left tibia and septic ankle/incisional infection ( ) Other: Please Specify I do not mean to sound evasive, but the above clarification is such a technical "splitting of hairs" that i'm not sure i would be able to honestly answer it. if it is something that definitely needs to be clarified, i would have to defer to dr ke lassiter orthopedic surgery. sorry/thanks Physician's Response(s): Thank you Piper Cook Principal Diagnosis: "that condition established after study, to be chiefly responsible for occasioning the admission of the patient to the hospital for care." Co-Existing Principal Diagnosis: "when two or more diagnoses equally meet the criteria for principal diagnosis as determined by the circumstances of admission, diagnostic work up, and/or therapy provided, and the Alphabetic Index, Tabular List, or another coding guideline does not provide sequencing direction, any one of the diagnoses may be sequenced first." "When the physician has documented what appears to be a current diagnosis in the body of the record, but has not included the diagnosis in the final diagnostic statement, the physician should be asked whether the diagnosis should be added." (Source [facility] 2 QTR90. p3-4) NAVYA
--- NOTE | 2020-10-21 08:06 | Coding Query ---
CODING QUERY To promote full compliance with coding requirements relating to patient care, provider participation is requested in all cases of informatics nurse specialist uncertainty. Please assist us with the question(s) below: Coding Question(s): There is documentation in the record the 09/29 Orthopedic Consultation and on the 09/30 Operative Report of, "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", and on the 10/01 Critical Care Consultation of, "Sepsissource likely infected hardware", and documentation on Discharge Summary of, "Sepsisafter further review, was in fact septic ankle/incisional infectionthis has been cleared out operatively, MSSA". Please specify below, in your clinical opinion, regarding the Infection. ( ) Infection due to internal fixation device of left tibia and/or infected hardware ( ) septic ankle/incisional infection - postoperative complication ( x ) Both infection due to internal fixation device fo left tibia and septic ankle/incisional infection ( ) Other: Please Specify Physician's Response(s): Thank you Piper Cook Principal Diagnosis: "that condition established after study, to be chiefly responsible for occasioning the admission of the patient to the hospital for care." Co-Existing Principal Diagnosis: "when two or more diagnoses equally meet the criteria for principal diagnosis as determined by the circumstances of admission, diagnostic work up, and/or therapy provided, and the Alphabetic Index, Tabular List, or another coding guideline does not provide sequencing direction, any one of the diagnoses may be sequenced first." "When the physician has documented what appears to be a current diagnosis in the body of the record, but has not included the diagnosis in the final diagnostic statement, the physician should be asked whether the diagnosis should be added." (Source [facility] 2 QTR90. p3-4) NAVYA
== END 2020-10-05 12:15 | DRG 856 ==
LOC: ED 17:56 → SUATTDRO 20:42 → 2S 20:42 → 1E 10-01 01:29 → 3N 10-02 16:06

== ENCOUNTER 2021-05-11 17:02 | Inpatient (IN) ==
[2021-05-11 17:54] LABS: Basophils # (auto) 0.01 K/uL (0-0.2); Basophils % (auto) 0.1 %; Eosinophils # (auto) 0.07 K/uL (0-0.5); Eosinophils % (auto) 0.7 %; Hematocrit (blood only) 42.2 % (37-47); Hemoglobin 14.3 g/dL (12.0-16.0); Immature Granulocytes # (auto) 0.04 K/uL (0.00-0.02); Immature Granulocytes % (auto) 0.4 %; Lymphocytes # (auto) 0.84 K/uL (1.2-3.4); Lymphocytes % (auto) 8.5 %; Mean Corpuscular Hemoglobin 30.3 pg (25-34); Mean Corpuscular Hgb Conc 33.9 g/dL (32-36); Mean Corpuscular Volume 89.4 fL (80-100); Mean Platelet Volume 9.9 fL (7.4-10.4); Monocytes # (auto) 1.31 K/uL (0.11-0.59); Monocytes % (auto) 13.2 %; Neutrophils # (auto) 7.65 K/uL (1.4-6.5); Neutrophils % (auto) 77.1 %; Platelet Count 322 K/uL (130-400); RDW Coefficient of Variation 15.4 % (11.5-14.5); RDW Standard Deviation 50.6 fL (36.4-46.3); Red Blood Count 4.72 M/uL (4.2-5.4); White Blood Count 9.92 K/uL (4.8-10.8)
--- NOTE | 2021-05-11 18:05 | XRay Report ---
XR chest 1V portable HISTORY: 60 years-old Female Chest Pain acute atypical chest pain COMPARISON: Chest CT and chest radiograph 05/06/2021 TECHNIQUE: Portable AP view of the chest FINDINGS: Marked cardiomegaly. Left subclavian pacer/AICD. Pulmonary vascular congestion with mild interstitial coarsening. Bibasilar densities suggestive of atelectasis with probable trace pleural effusions. No pneumothorax. Degenerative changes of the shoulders and spine. IMPRESSION: Marked cardiomegaly with pulmonary vascular congestion. ACT 112: Negative or not required by law. The above report was generated using voice recognition software. It may contain grammatical, syntax o r spelling errors. Electronically signed by: Jae Ortega M.D. 05/11/2021 6:04 PM
[2021-05-11 18:13] LABS: Alanine Aminotransferase 28 (12-78); Albumin Level 3.4 gm/dl (3.4-5.0); Aspartate Aminotransferase 18 U/L (15-37); Blood Urea Nitrogen 13 mg/dl (7-18); Calcium 11.2 mg/dl (8.5-10.1); Carbon Dioxide 32 mmol/L (21-32); Chloride 91 mmol/L (98-107); Est GFR (African American) 68.1 ml/min; Est GFR (Non-African American) 58.8 ml/min; Glucose 155 mg/dl (70-99); Lipase 68 U/L (73-393); Magnesium 2.4 mg/dl (1.8-2.4); Potassium 3.6 mmol/L (3.5-5.1); Sodium 134 mmol/L (136-145)
[2021-05-11] MEDS ORDERED: ACETAMINOPHEN 1,000 MG/100 ML VIAL IV STA (18:13)
[2021-05-11] MEDS ORDERED: oxyCODONE HCL IR 5 MG TAB (IMMEDIATE RELEASE) PO STA (18:13)
--- NOTE | 2021-05-11 18:13 | Emergency Department Note ---
Impression & Plan Small bowel obstruction, Nausea and vomiting, Oxygen dependent ED Provider Note NAME: AIMEE CERVANTES AGE: 60 SEX: F ARRIVES VIA: Ambulance INFORMANT: Patient ED PROVIDER(S): Neno Chung MD CHIEF COMPLAINT: Weakness, nausea, diarrhea. PLAN: Disposition: Admit MEDICAL DECISION MAKING: The patient is a pleasant 60-year-old woman with a past medical history of CHF, nonischemic cardiomyopathy, atrial fibrillation on Xarelto, hypertension, hy perlipidemia who presents to the emergency department with generalized weakness, nausea and diarrhea that developed over the past 24 hours as well as continued left posterior lateral chest wall pain which has been ongoing after having a fall where she was seen in emergency department and was not found to have any fractures. She denies any cough, congestion, shortness of breath. She denies any increased fluid retention from her baseline. She denies fevers. She denies any recent antibiotics. On arrival the patient is chronically ill-appearing but no acute distress, afebrile with HR 110-120s and otherwise stable vital signs. She appears euvolemic. EKG demonstrates atrial fibrillation without overt acute ischemia. Chest x-ray with question of volume overload however the patient denies any increased weight gain or fluid retention. WBC, H/H and platelets within normal limits. Chemistry without metabolic acidosis. Calcium was 11.2 and electrolytes otherwise without significant abnormality. LFTs without significant abnormality. Troponin negative/undetectable. BNP is 1800 on the lower range for the patient. Lipase is not elevated. COVID-19 PCR was negative. Influenza PCR was negative. Upon reevaluation the patient was having persistent nausea and had vomited. She was given IV Pepcid and Zofran with improvement in her symptoms. However a KUB was suggestive of possible bowel obstruction and therefore CT abd pelvis was performed which demonstrates evidence of high-grade bowel obstruction with position point within the left lower quadrant abdominal wall with suspicion to be from small bowel adhesions. There is mild associated interloop edema with trace ascites. Findings reviewed the patient and she did agree with plan for admission for further management including NG tube and surgery consultation. I did review the case with general surgery on-call Dr. Valentin who agrees with plan for NG tube and admission to medicine service and he will follow. Dr. Kenny, [facility] [place] to evaluate the patient for admission. Patient tolerated NGT placement well, with over 1L initially removed. Reports additional improvement. Triage Nursing notes reviewed and agree them. prior medical records reviewed Vital Signs: reviewed and remarkable for tachycardia. Differential diagnosis: Infection, dehydration, metabolic abnormality, hypo/hyperglycemia, electrolyte disturbance, anemia, hypoxia, cardiac sources, intracerebral event, toxicologic, neurologic, as well as other pathologies. ER treatment provided: See below. Diagnostics interpreted by me: ECG: Atrial fibrillation, RVR with PVCs, 134 bpm, nonspecific ST and T wave abnormality, no overt ST elevation, QTC 486, cures 102. Cardiac Monitoring: An order for continuous cardiac monitoring was placed and demonstrated atrial fibrillation, 134 bpm, PVCs. Laboratory studies: see below Imaging studies: See below Consultation(s): Dr. Valentin, general surgery on-call. Dr. Kenny, [facility] [place]. HPI: The patient is a pleasant 60-year-old woman with a past medical history of CHF, nonischemic cardiomyopathy, atrial fibrillation on Xarelto, hypertension, hyperlipidemia who presents to the emergency department with generalized weakness, nausea and diarrhea that developed over the past 24 hours as well as continued left posterior lateral chest wall pain which has been ongoing after having a fall where she was seen in emergency department and was not found to have any fractures. She denies any cough, congestion, shortness of breath. She denies any increased fluid retention from her baseline. She denies fevers. She denies any recent antibiotics. ROS: See above HPI for pertinent positives & negatives. A total of 10 systems reviewed and were otherwise negative. PAST MEDICAL HISTORY: see Below PAST SURGICAL HISTORY: see Below FAMILY HISTORY:See Below SOCIAL HISTORY: see Below HOME MEDICATIONS: see Below ALLERGIES: see Below VITALS: see Below PHYSICAL EXAMINATION: GENERAL: Awake, alert, chronically-appearing, in no distress, BMI 126.7 HENT: Normocephalic, atraumatic. Oropharynx unremarkable. EYES: Normal conjunctiva. Sclera non-icteric. NECK: Supple. No nuchal rigidity. FROM. No JVD. RESPIRATORY: Clear to auscultation. CARDIAC: Tachycardic rate, irregular rhythm. Extremities warm and well perfused. Pulses equal. ABDOMEN: Mildly distended but soft. No tenderness to palpation. No rebound or guarding. No masses. RECTAL: Deferred. MUSCULOSKELETAL: Chest examination reveals mild left cw ttp. No bony crepitus. No discoloration. The back is symmetrical on inspection without obvious abnormality. There is no CVA tenderness to palpation. No joint edema. LOWER EXTREMITIES: Calves are equal size bilaterally and non-tender. No edema. No discoloration. NEURO: Normal sensorium. No sensory or motor deficits noted. SKIN: No rash or jaundice noted. Neno Chung MD Past Med/Surg History Medical History Adrenal adenoma Rt sided imaging 01/2020 Asthma Atrial fibrillation on xarelto/metoprolol/digoxin--follows with Dr. Pelayo CHF (congestive heart failure) 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% per echo 06/06/18; non-obstructive CAD per cath 2006 Chronic respiratory failure with hypoxia oxygen 3L n/c at all times COPD (chronic obstructive pulmonary disease) Depression Diabetes type 2, controlled patient denies having diabetes, does not want further testing even though she is prescribed Metformin GERD (gastroesophageal reflux disease) Glaucoma ? pt denies History of alcohol use History of tobacco abuse HTN (hypertension) Lightheadedness Memory impairment Morbid obesity On anticoagulant therapy xarelto daily On home oxygen therapy 3 L N/C at all times Pericardial effusion Peripheral neuropathy PTSD (post-traumatic stress disorder) Pulmonary embolism 2013 while living in [place] Pulmonary hypertension Restrictive lung disease Schizoaffective disorder Severe mitral regurgitation Ventricular arrhythmia Vitamin D deficiency Surgical History AICD (automatic cardioverter/defibrillator) present meditronic History of cardiac cath x2?-- History of decompression of both ulnar nerves History of eye surgery left History of hernia surgery x2 History of incision and drainage (~09/30/20) left tibia History of open reduction and internal fixation (ORIF) procedure left tibia--hardware in place History of tooth extraction partial upper S/P ORIF (open reduction internal fixation) fracture ankle, left--hardware in place S/P tubal ligation Family History Mother , in her 70s Congestive heart failure (CHF) Breast cancer Lung cancer from this Father No problems noted. Other Hypertension No family history of adverse response to anesthesia Ulcerative colitis Denies family history of Colon cancer Ovarian cancer Prostate cancer Myocardial infarction Social History Smoking Status: Current every day smoker Tobacco Type: Cigarettes Years Smoked: 30; Second Hand Exposure: No; Hx Alcohol Use: No Hx Substance Use: Yes (medical marijuana (drops in mouth)) Preferred Language: Estonian Communication Ability: Effective Visual Impairment: No Limitations Hearing Ability: Normal Caustic Room Attendant Required: No Beliefs That Will Affect Care: None marital status: marital status details: 5 kids Current Living Situation: Alone and Other Current Living Situation Comment: personal caregivers 4 days a week for 2 hours a day. 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; worked for [employer]; w as in [employer] x 7 yr other: lives in [place] Feels Safe at Home: Yes Childhood Exposure to Second-Hand Smoke: Yes Dental Care, Regularly: No Physical Activity Frequency: Does not Exercise Assistive Devices: Denture - Upper, Glasses, Oxygen - Continuous and Walker Allergies Allergies Allergy/AdvReac Type Severity Reaction Status Date / Time fentanyl Allergy Mild RASH,ITCHIN Verified 05/06/21 19:39 G Home Meds Home Medications Medication Instructions Recorded Confirmed trazodone 100 mg tablet 200 mg PO HS 10/07/18 05/11/21 quetiapine 100 mg tablet (Seroquel) 100 mg PO QAM 01/02/19 05/11/21 quetiapine 400 mg tablet (Seroquel) 400 mg PO HS tab 07/05/19 05/11/21 magnesium oxide 400 mg (241.3 mg 400 mg PO QAM 03/24/21 05/11/21 magnesium) tablet potassium chloride 20 mEq 40 meq PO QAM 03/24/21 05/11/21 tablet,extended release hydroxyzine HCl 50 mg tablet 50 mg PO DAILY PRN 05/06/21 05/11/21 metoprolol succinate 100 mg 150 mg PO QAM 05/06/21 05/11/21 tablet,extended release 24 hr Previous Rx's Medication Instructions Recorded metformin 500 mg tablet 500 mg PO BID #60 tab 12/15/18 Oxygen Home #1 ea 05/09/19 docusate sodium 100 mg capsule 100 mg PO BID #180 cap 06/28/19 (Colace) CPAP Supplies #1 ea 07/12/19 digoxin 125 mcg (0.125 mg) tablet 125 mcg PO QAM #90 tab 04/17/20 rivaroxaban 20 mg tablet (Xarelto) 20 mg PO QAM #90 tab 04/17/20 omeprazole 20 mg capsule,delayed 20 mg PO DAILYBB #90 cap 06/09/20 release Portable Oxygen #1 ea 07/29/20 sacubitril 24 mg-valsartan 26 mg 1 tab PO BID #60 tab 08/27/20 tablet (Entresto) pregabalin 150 mg capsule 150 mg PO BID 30 Days #60 cap 03/04/21 furosemide 40 mg tablet 80 mg PO BID #120 tab 03/24/21 umeclidinium 62.5 mcg-vilanterol 1 inh INH Q24H #60 ea 04/06/21 25 mcg/actuation powdr for inhalation (Anoro Ellipta) atorvastatin 10 mg tablet 10 mg PO QAM #90 tab 04/21/21 Results & Data (ED) Vital Signs Vital Signs - 24 hr 05/11/21 17:09 05/11/21 18:34 05/11/21 21:00 Temperature 37.1 C Temperature Source Oral Pulse Rate 120 H 107 H Pulse Rate from SpO2 Sensor 121 H 105 H Pulse Rhythm Regular Respiratory Rate 20 21 Respiratory Effort / Characteristics Non-Labored Respiratory Depth Normal Respiratory Pattern Regular Blood Pressure 125/79 122/91 145/98 H Blood Pressure Mean 94 101 113 Pulse Oximetry 97 96 97 Oxygen Delivery Method Nasal Cannula Nasal Cannula Nasal Cannula Oxygen Flow Rate 3 3 3 Sepsis Recent Fever Within 48 Hours No Sepsis New/Unexplained Change in Mental Status No Sepsis Action Taken by Nursing No Action Required 05/11/21 22:00 05/11/21 22:20 05/11/21 22:30 Temperature Temperature Source Pulse Rate 97 H 92 H 97 H Pulse Rate from SpO2 Sensor 106 H 91 H 94 H Pulse Rhythm Respiratory Rate 20 22 19 Respiratory Effort / Characteristics Respiratory Depth Respiratory Pattern Blood Pressure 111/95 Blood Pressure Mean 100 Pulse Oximetry 98 97 96 Oxygen Delivery Method Nasal Cannula Nasal Cannula Nasal Cannula Oxygen Flow Rate 3 3 3 Sepsis Recent Fever Within 48 Hours Sepsis New/Unexplained Change in Mental Status Sepsis Action Taken by Nursing 05/11/21 22:40 05/11/21 22:50 05/11/21 23:00 Temperature Temperature Source Pulse Rate 100 H 97 H 95 H Pulse Rate from SpO2 Sensor 99 H 94 H 95 H Pulse Rhythm Respiratory Rate 24 20 23 Respiratory Effort / Characteristics Respiratory Depth Respiratory Pattern Blood Pressure 158/98 H Blood Pressure Mean 118 Pulse Oximetry 97 97 98 Oxygen Delivery Method Nasal Cannula Nasal Cannula Nasal Cannula Oxygen Flow Rate 3 3 3 Sepsis Recent Fever Within 48 Hours Sepsis New/Unexplained Change in Mental Status Sepsis Action Taken by Nursing 05/11/21 23:10 Temperature Temperature Source Pulse Rate 101 H Pulse Rate from SpO2 Sensor 98 H Pulse Rhythm Respiratory Rate 26 H Respiratory Effort / Characteristics Respiratory Depth Respiratory Pattern Blood Pressure Blood Pressure Mean Pulse Oximetry 97 Oxygen Delivery Method Nasal Cannula Oxygen Flow Rate 3 Sepsis Recent Fever Within 48 Hours Sepsis New/Unexplained Change in Mental Status Sepsis Action Taken by Nursing Laboratory Data Attestation: I reviewed the patient's lab results. Result diagrams: 05/11/21 17:45 05/11/21 17:45 Lab Results 05/11/21 05/11/21 05/11/21 Range/Units 17:25 17:45 17:45 WBC 9.92 (4.8-10.8) K/uL RBC 4.72 (4.2-5.4) M/uL Hgb 14.3 (12.0-16.0) g/dL Hct 42.2 (37-47) % MCV 89.4 (80-100) fL MCH 30.3 (25-34) pg MCHC 33.9 (32-36) g/dL RDW Std Deviation 50.6 H (36.4-46.3) fL RDW Coeff of Logan 15.4 H (11.5-14.5) % Plt Count 322 (130-400) K/uL MPV 9.9 (7.4-10.4) fL Immature Gran % (Auto) 0.4 % Neut % (Auto) 77.1 % Lymph % (Auto) 8.5 % Hanson % (Auto) 13.2 % Eos % (Auto) 0.7 % Baso % (Auto) 0.1 % Neut # (Auto) 7.65 H (1.4-6.5) K/uL Lymph # (Auto) 0.84 L (1.2-3.4) K/uL Hanson # (Auto) 1.31 H (0.11-0.59) K/uL Eos # (Auto) 0.07 (0-0.5) K/uL Baso # (Auto) 0.01 (0-0.2) K/uL Immature Gran # (Auto) 0.04 H (0.00-0.02) K/uL Sodium 134 L (136-145) mmol/L Potassium 3.6 (3.5-5.1) mmol/L Chloride 91 L (98-107) mmol/L Carbon Dioxide 32 (21-32) mmol/L Anion Gap 11.0 (3-11) BUN 13 (7-18) mg/dl Creatinine 1.04 (0.6-1.2) mg/dl Est Cr Clr Drug Dosing Not Reportable Est GFR ( Amer) 68.1 ml/min Est GFR (Non-Af Amer) 58.8 ml/min BUN/Creatinine Ratio 12.0 (10-20) Glucose 155 H (70-99) mg/dl Calcium 11.2 H (8.5-10.1) mg/dl Phosphorus 5.4 H (2.5-4.9) mg/dl Magnesium 2.4 (1.8-2.4) mg/dl Total Bilirubin 0.6 (0.2-1) mg/dl AST 18 (15-37) U/L ALT 28 (12-78) Alkaline Phosphatase 132 H (45-117) U/L Troponin I < 0.015 (0-0.045) ng/ml NT-Pro-B Natriuret Pep 1885 H (0-900) pg/ml Total Protein 9.0 H (6.4-8.2) gm/dl Albumin 3.4 (3.4-5.0) gm/dl Globulin 5.6 H (2.5-4.0) gm/dl Albumin/Globulin Ratio 0.6 L (0.9-2) Lipase 68 L (73-393) U/L SARS-CoV-2 (PCR) NEGATIVE (Negative) Influenza Type A (PCR) Negative (Neg) Influenza Type B (PCR) Negative (Neg) RSV (RT-PCR) Negative (Neg) Administered Medications Piperacillin Sod/Tazobactam (Sod 4.5 gm/ Dextrose) 120 mls @ 200 mls/hr IV 0145 ONE; Protocol Stop: 05/12/21 02:20 Last Admin: 05/12/21 02:02 Dose: 200 mls/hr Documented by: [id number] Discontinued Medications Acetaminophen (Ofirmev) 1,000 mg in 100 mls @ 400 mls/hr IV NOW STA Stop: 05/11/21 18:27 Last Infusion: 05/11/21 18:52 Dose: 0 mls/hr Documented by: [id number] Admin: 05/11/21 18:37 Dose: 400 mls/hr Documented by: [id number] Famotidine (Pepcid 20mg Iv Push) 20 mg in 5 mls @ 2.5 mls/min IV NOW STA Stop: 05/11/21 19:11 Last Admin: 05/11/21 19:21 Dose: 2.5 mls/min Documented by: [id number] Sodium Chloride (Nss) 250 mls @ 999 mls/hr IV .Q16M ONE Stop: 05/11/21 19:25 Last Infusion: 05/11/21 19:40 Dose: 0 mls/hr Documented by: [id number] Admin: 05/11/21 19:21 Dose: 999 mls/hr Documented by: [id number] Ioversol (Optiray 320 100ml) 91 ml IV ONCE ONE Stop: 05/11/21 20:50 Last Admin: 05/11/21 20:49 Dose: 91 ml Documented by: [id number] Morphine Sulfate (Morphine Sulfate 2 Mg/Ml Carp) 1 mg IV NOW STA Stop: 05/11/21 21:45 Last Admin: 05/11/21 22:22 Dose: 1 mg Documented by: [id number] Ondansetron HCl (Ondansetron Inj 2 Mg/Ml 2 Ml Vial) 4 mg IV NOW STA Stop: 05/11/21 19:11 Last Admin: 05/11/21 19:21 Dose: 4 mg Documented by: [id number] Oxycodone HCl (Oxycodone Hcl Ir 5 Mg Tab (Immediate Release)) 5 mg PO NOW STA Stop: 05/11/21 18:14 Last Admin: 05/11/21 18:37 Dose: 5 mg Documented by: [id number] Imaging Data Radiologist's Impression: Chest X-Ray 05/11/21 17:17 XR chest 1V portable HISTORY: 60 years-old Female Chest Pain acute atypical chest pain COMPARISON: Chest CT and chest radiograph 05/06/2021 TECHNIQUE: Portable AP view of the chest FINDINGS: Marked cardiomegaly. Left subclavian pacer/AICD. Pulmonary vascular congestion with mild interstitial coarsening. Bibasilar densities suggestive of atelectasis with probable trace pleural effusions. No pneumothorax. Degenerative changes of the shoulders and spine. IMPRESSION: Marked cardiomegaly with pulmonary vascular congestion. ACT 112: Negative or not required by law. The above report was generated using voice recognition software. It may contain grammatical, syntax or spelling errors. Electronically signed by: Jae Ortega M.D. 05/11/2021 6:04 PM KUB X-Ray 05/11/21 19:13 KUB HISTORY: Acute generalized abdominal pain with nausea, vomiting and diarrhea abd pain, n/v/d COMPARISON: KUB 09/29/2020 FINDINGS: There are several dilated air-filled loops of small bowel throughout the abdomen measuring up to 4.4 cm transversely. No renal calculi. No ureteral calculi. No pneumoperitoneum or pneumatosis. No fracture. Cardiomegaly with pacer/AICD. IMPRESSION: Dilated air-filled loops of small bowel within the central abdomen are suspicious for a small bowel obstruction. ACT 112: Negative or not required by law. The above report was generated using voice recognition software. It may contain grammatical, syntax or spelling errors. Electronically signed by: Jae Ortega M.D. 05/11/2021 7:54 PM Abdomen/Pelvis CT 05/11/21 20:[address] WITH IV CONTRAST CT DOSE: 1736.06 mGy.cm HISTORY: Acute generalized abdominal pain with nausea, vomiting and diarrhea n/v/d, ?SBO on KUB TECHNIQUE: Multiaxial CT images of the abdomen and pelvis were performed following the IV administration of 91 cc of Optiray, A dose lowering technique was utilized adhering to the principles of ALARA. COMPARISON STUDY: KUB of same day, CT abdomen and pelvis 09/29/2020 FINDINGS: Marked cardiomegaly with partially imaged pacer leads. Small pericardial effus ion. Trace pleural effusions with mild bibasilar linear consolidation suggestive of probable atelectasis. No pneumatosis or pneumoperitoneum identified. Unremarkable spleen, pancreas and left adrenal gland. Indeterminate 1.5 cm right adrenal gland lesion is unchanged. Contracted gallbladder. Suggested hepatic steatosis. Patent portal vein. Unremarkable kidneys. No hydronephrosis. Mild urinary bladder wall thickening with partial distention. Aorta and IVC are unremarkable. Decreased size of the previously described left iliac chain lymph nodes which are now within normal limits in size measuring up to 7 mm. The esophagus is fluid-filled and distended. Layering hyperdense material within the stomach and proximal duodenum may be medicinal. The stomach is fluid-filled and dilated as are numerous loops of small bowel in the abdomen and upper pelvis. Transition point is noted within the left lower quadrant with decompressed small bowel loops noted distally. No obstructing lesion. Mild interloop edema without bowel wall thickening. Trace abdominal pelvic ascites. Colonic diverticulosis. Normal appendix.Unremarkable soft tissues. Tiny fat filled periumbilical hernia. Degenerative changes of the spine, pelvis and hips. Transitional lumbosacral anatomy. IMPRESSION: 1. High-grade small bowel obstruction with transition point present within the abdominal left lower quadrant, presumably from small bowel adhesions. Mild associated interloop edema with trace ascites. 2. Colonic diverticulosis. 3. Normal appendix. 4. Trace pleural and pericardial effusions. 5. Cardiomegaly. 6. Additional findings as above. ACT 112: Negative or not required by law. The above report was generated using voice recognition software. It may contain grammatical, syntax or spelling errors. Electronically signed by: Jae Ortega M.D. 05/11/2021 9:06 PM Discharge Plan Visit Data Chief Complaint: Illness Stated Complaint: N/V/D ED Provider: Neno Chung Discharge Problem: Small bowel obstruction, Nausea and vomiting, Oxygen dependent Patient Disposition: Admitted As Inpatient Discharge Instructions Interventions: ED Discharge Assessment Last Done: 05/12/21 01:02 Discharge Problem: Nausea and vomiting Qualifiers: Vomiting type: unspecified Qualified Code(s): R11.2 - Nausea with vomiting, unspecified
[2021-05-11 18:18] LABS: Albumin Globulin Ratio 0.6 (0.9-2); Alkaline Phosphatase 132 U/L (45-117); Bilirubin,Total 0.6 mg/dl (0.2-1); Globulin 5.6 gm/dl (2.5-4.0); NT Pro B Type Natriuretic Pept 1885 pg/ml (0-900); Phosphorus 5.4 mg/dl (2.5-4.9); Troponin I < 0.015 ng/ml (0-0.045)
[2021-05-11 18:18] LABS: Influenza A virus by PCR Negative (Neg); Influenza B virus by PCR Negative (Neg); RSV by PCR Negative (Neg)
[2021-05-11 18:36] LABS: SARS CoV2 RNA(COVID-19) InHosp NEGATIVE (Negative)
[2021-05-11] MEDS ORDERED: ONDANSETRON INJ 2 MG/ML 2 ML VIAL IV STA (19:10)
[2021-05-11] MEDS ORDERED: FAMOTIDINE 20MG IV PUSH 20 MG/5 ML SYR IV STA (19:10)
[2021-05-11] MEDS ORDERED: SODIUM CHLORIDE 0.9% 250 ML IV ONE (19:10)
--- NOTE | 2021-05-11 19:55 | XRay Report ---
KUB HISTORY: Acute generalized abdominal pain with nausea, vomiting and diarrhea abd pain, n/v/d COMPARISON: KUB 09/29/2020 FINDINGS: There are several dilated air-filled loops of small bowel throughout the abdomen measuring up to 4.4 cm transversely. No renal calculi. No ureteral calculi. No pneumoperitoneum or pneumatosis . No fracture. Cardiomegaly with pacer/AICD. IMPRESSION: Dilated air-filled loops of small bowel within the central abdomen are suspicious for a small bowel o bstruction. ACT 112: Negative or not required by law. The above report was generated using voice recognition software. It may contain grammatical, syntax o r spelling errors. Electronically signed by: Jae Ortega M.D. 05/11/2021 7:54 PM
[2021-05-11] MEDS ORDERED: OPTIRAY 320 100ml IV ONE (20:49)
--- NOTE | 2021-05-11 21:07 | CT Scan Report ---
ABDOMEN AND PELVIS CT WITH IV CONTRAST CT DOSE: 1736.06 mGy.cm HISTORY: Acute generalized abdominal pain with nausea, vomiting and diarrhea n/v/d, ?SBO on KUB TECHNIQUE: Multiaxial CT images of the abdomen and pelvis were performed following the IV administrat ion of 91 cc of Optiray, A dose lowering technique was utilized adhering to the principles of ALARA. COMPARISON STUDY: KUB of same day, CT abdomen and pelvis 09/29/2020 FINDINGS: Marked cardiomegaly with partially imaged pacer leads. Small pericardial effusion. Trace pleural effu sions with mild bibasilar linear consolidation suggestive of probable atelectasis. No pneumatosis or pneumoperitoneum identified. Unremarkable spleen, pancreas and left adrenal gland. Indeterminate 1.5 cm right adrenal gland lesion is unchanged. Contracted gallbladder. Suggested hepatic steatosis. Peter nt portal vein. Unremarkable kidneys. No hydronephrosis. Mild urinary bladder wall thickening with partial distention . Aorta and IVC are unremarkable. Decreased size of the previously described left iliac chain lymph n odes which are now within normal limits in size measuring up to 7 mm. The esophagus is fluid-filled and distended. Layering hyperdense material within the stomach and prox imal duodenum may be medicinal. The stomach is fluid-filled and dilated as are numerous loops of smal l bowel in the abdomen and upper pelvis. Transition point is noted within the left lower quadrant wit h decompressed small bowel loops noted distally. No obstructing lesion. Mild interloop edema without bowel wall thickening. Trace abdominal pelvic ascites. Colonic diverticulosis. Normal appendix.Unrema rkable soft tissues. Tiny fat filled periumbilical hernia. Degenerative changes of the spine, pelvis and hips. Transitional lumbosacral anatomy. IMPRESSION: 1. High-grade small bowel obstruction with transition point present within the abdominal left lower q uadrant, presumably from small bowel adhesions. Mild associated interloop edema with trace ascites. 2. Colonic diverticulosis. 3. Normal appendix. 4. Trace pleural and pericardial effusions. 5. Cardiomegaly. 6. Additional findings as above. ACT 112: Negative or not required by law. The above report was generated using voice recognition software. It may contain grammatical, syntax o r spelling errors. Electronically signed by: Jae Ortega M.D. 05/11/2021 9:06 PM
[2021-05-11] MEDS ORDERED: MoRPHine SULFATE 2 MG/ML CARP IV STA (21:44)
--- NOTE | 2021-05-11 22:22 | Surgery Consultation ---
Date of Consultation May 11, 2021 Assessment & Plan (1) Small bowel obstruction: pt is a 60 year-old female who presents to ER with abdominal pain, and nausea and vomiting, IMP: SBO, plan, I agree with hospitalist admit pt to hospital for conservative treatment first, NPO, NG tube, IV fluid, control pain, consult magnaflux operator for possible surgery for SBO, repeat labs and KUB in morning, please check PTH level, to R/O parathyroid disease, possible surgery treatment if pt's symptoms worse, but base on pt's comorbidities, pt is high risk for surgery, pt agrees with the plan, I answered all questions, History of Present Illness Reason for Consultation: SBO History of Present Illness CC: abdominal pain HPI: The patient is a pleasant 60-year-old woman with a past medical history of CHF, nonischemic cardiomyopathy, atrial fibrillation on Xarelto, hypertension, hyperlipidemia who presents to the emergency department with generalized weakness, nausea and diarrhea that developed over the past 24 hours as well as continued left posterior lateral chest wall pain which has been ongoing after having a fall where she was seen in emergency department and was not found to have any fractures. She denies any cough, congestion, shortness of breath. She denies any increased fluid retention from her baseline. She denies fevers. She denies any recent antibiotics. ROS: See above HPI for pertinent positives & negatives. A total of 10 systems reviewed and were otherwise negative. PAST MEDICAL HISTORY: see Below PAST SURGICAL HISTORY: see Below FAMILY HISTORY:See Below SOCIAL HISTORY: see Below HOME MEDICATIONS: see Below ALLERGIES: see Below Past Med/Surg History Medical History Adrenal adenoma Rt sided imaging 01/2020Asthma Atrial fibrillation on xarelto/metoprolol/digoxin--follows with Dr. Flores (congestive heart failure) 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% per echo 06/06/18; non-obstructive CAD per cath 2006Chronic respiratory failure with hypoxia oxygen 3L n/c at all timesCOPD (chronic obstructive pulmonary disease) Depression Diabetes type 2, controlled patient denies having diabetes, does not want further testing even though she is prescribed MetforminGERD (gastroesophageal reflux disease) Glaucoma ? pt deniesHistory of alcohol use History of tobacco abuse HTN (hypertension) Lightheadedness Memory impairment Morbid obesity On anticoagulant therapy xarelto dailyOn home oxygen therapy 3 L N/C at all timesPericardial effusion Peripheral neuropathy PTSD (post-traumatic stress disorder) [place] Restrictive lung disease Schizoaffective disorder Severe mitral regurgitation Ventricular arrhythmia Vitamin D deficiency Surgical History AICD (automatic cardioverter/defibrillator) present meditronicHistory of cardiac cath x2?--History of decompression of both ulnar nerves History of eye surgery leftHistory of hernia surgery [id number] of incision and drainage (~09/30/20) left tibiaHistory of open reduction and internal fixation (ORIF) procedure left tibia--hardware in placeHistory of tooth extraction partial upperS/P ORIF (open reduction internal fixation) fracture ankle, left--hardware in placeS/P tubal ligation Family History Mother , in her 70s Congestive heart failure (CHF) Breast cancer Lung cancer from thisFather No problems noted. Other Hypertension No family history of adverse response to anesthesia Ulcerative colitis Denies family history of Colon cancer Ovarian cancer Prostate cancer Myocardial infarction Social History Smoking Status: Current every day smoker Tobacco Type: Cigarettes Years Smoked: 30; Second Hand Exposure: No; Hx Alcohol Use: No Hx Substance Use: Yes (medical marijuana (drops in mouth)) Preferred Language: Frisian Communication Ability: Effective Visual Impairment: No Limitations Hearing Ability: Normal Apns Required: No Beliefs That Will Affect Care: None marital status: marital status details: 5 kids Current Living Situation: Alone and Other Current Living Situation Comment: personal caregivers 4 days a week for 2 hours a day. 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 other: lives in [place] Feels Safe at Home: Yes Childhood Exposure to Second-Hand Smoke: Yes Dental Care, Regularly: No Physical Activity Frequency: Does not Exercise Assistive Devices: Denture - Upper, Glasses, Oxygen - Continuous and Walker Allergies Allergies Allergy/AdvReac Type Severity Reaction Status Date / Time fentanyl Allergy Mild RASH,ITCHIN Verified 05/06/21 19:39 G Home Meds Home Medications MedicationC Instructions Recorded Confirmed trazodone 100 mg tablet 200 mg PO HS 10/07/18 05/11/21 quetiapine 100 mg tablet (Seroquel) 100 mg PO QAM 01/02/1911/24 quetiapine 400 mg tablet (Seroquel) 400 mg PO HS tab 07/05/1911/24 magnesium oxide 400 mg (241.3 mg 400 mg PO QAM 03/24/21 1 magnesium) tablet potassium chloride 20 mEq 40 meq PO QAM 03/24/21 05/11/21 tablet,extended release hydroxyzine HCl 50 mg tablet 50 mg PO DAILY PRN 05/06/21 05/11/21 metoprolol succinate 100 mg 150 mg PO QAM 05/06/21 05/11/21 tablet,extended release 24 hr Previous Rx's Medication Instructions Recorded metformin 500 mg tablet 500 mg PO BID #60 tab 12/15/18 Oxygen Home #1 ea 05/09/19 docusate sodium 100 mg capsule 100 mg PO BID #180 cap 06/28/19 (Colace) CPAP Supplies #1 ea 07/12/19 digoxin 125 mcg (0.125 mg) tablet 125 mcg PO QAM #90 tab 04/17/20 rivaroxaban 20 mg tablet (Xarelto) 20 mg PO QAM #90 tab 04/17/20 omeprazole 20 mg capsule,delayed 20 mg PO DAILYBB #90 cap 06/09/20 release Portable Oxygen #1 ea 07/29/20 sacubitril 24 mg-valsartan 26 mg 1 tab PO BID #60 tab 08/27/20 tablet (Entresto) pregabalin 150 mg capsule 150 mg PO BID 30 Days #60 cap 03/04/21 furosemide 40 mg tablet 80 mg PO BID #120 tab 03/24/21 umeclidinium 62.5 mcg-vilanterol 1 inh INH Q24H #60 ea 04/06/21 25 mcg/actuation powdr for inhalation (Anoro Ellipta) atorvastatin 10 mg tablet 10 mg PO QAM #90 tab 04/21/21 Results & Data (ED) Vital Signs Vital Signs - 24 hr 05/11/21 17:09 05/11/21 18:34 Temperature 37.1 C Temperature Source Oral Pulse Rate 120 H Pulse Rate from SpO2 Sensor 121 H Pulse Rhythm Regular G Respiratory Rate 20 Respiratory Effort / Characteristics Non-Labored Respiratory Depth Normal Respiratory Pattern Regular Blood Pressure 125/79 122/91 Blood Pressure Mean 94 101 Pulse Oximetry 97 96 Oxygen Delivery Method Nasal Cannula Nasal Cannula Oxygen Flow Rate 3 3 Sepsis Recent Fever Within 48 Hours No Sepsis New/Unexplained Change in Mental Status No Sepsis Action Taken by Nursing No Action Required Laboratory Data Attestation: I reviewed the patient's lab results. Result diagrams: 05/11/21 17:45 05/11/21 17:45 Lab Results 05/11/21 05/11/21 05/11/21 Range/Units 17:25 17:45 17:45 WBC 9.92 (4.8-10.8) K/uL RBC 4.72 (4.2-5.4) M/uL Hgb 14.3 (12.0-16.0) g/dL Hct 42.2 (37-47) % MCV 89.4 (80-100) fL MCH 30.3 (25-34) pg MCHC 33.9 (32-36) g/dL RDW Std Deviation 50.6 H (36.4-46.3) fL RDW Coeff of Logan 15.4 H (11.5-14.5) % Plt Count 322 (130-400) K/uL MPV 9.9 (7.4-10.4) fL Immature Gran % (Auto) 0.4 % Neut % (Auto) 77.1 % Lymph % (Auto) 8.5 % Bremer % (Auto) 13.2 % Eos % (Auto) 0.7 % Baso % (Auto) 0.1 % Neut # (Auto) 7.65 H (1.4-6.5) K/uL Lymph # (Auto) 0.84 L (1.2-3.4) K/uL Bremer # (Auto) 1.31 H (0.11-0.59) K/uL Eos # (Auto) 0.07 (0-0.5) K/uL Baso # (Auto) 0.01 (0-0.2) K/uL Immature Gran # (Auto) 0.04 H (0.00-0.02) K/uL Sodium 134 L (136-145) mmol/L Potassium 3.6 (3.5-5.1) mmol/L Chloride 91 L (98-107) mmol/L Carbon Dioxide 32 (21-32) mmol/L Anion Gap 11.0 (3-11) BUN 13 (7-18) mg/dl Creatinine 1.04 (0.6-1.2) mg/dl Est Cr Clr Drug Dosing Not Reportable Est GFR ( Amer) 68.1 ml/min Est GFR (Non-Af Amer) 58.8 ml/min BUN/Creatinine Ratio 12.0 (10-20) Glucose 155 H (70-99) mg/dl Calcium 11.2 H (8.5-10.1) mg/dl Phosphorus 5.4 H (2.5-4.9) mg/dl Magnesium 2.4 (1.8-2.4) mg/dl Total Bilirubin 0.6 (0.2-1) mg/dl D AST 18 (15-37) U/L ALT 28 (12-78) Alkaline Phosphatase 132 H (45-117) U/L Troponin I < 0.015 (0-0.045) ng/ml NT-Pro-B Natriuret Pep 1885 H (0-900) pg/ml Total Protein B 9.0 H (6.4-8.2) gm/dl Albumin 3.4 (3.4-5.0) gm/dl Globulin 5.6 H (2.5-4.0) gm/dl Albumin/Globulin Ratio 0.6 L (0.9-2) Lipase 68 L (73-393) U/L SARS-CoV-2 (PCR) NEGATIVE (Negative) Influenza Type A (PCR) Negative (Neg) Influenza Type B (PCR) Negative (Neg) RSV (RT-PCR) Negative (Neg) Administered Medications Discontinued Medications Acetaminophen (Ofirmev) 1,000 mg in 100 mls @ 400 mls/hr IV NOW STA Stop: 05/11/21 18:27 Last Infusion: 05/11/21 18:52 Dose: 0 mls/hr Documented by: [id number] Admin: 05/11/21 18:37 Dose: 400 mls/hr Documented by: [id number] Famotidine (Pepcid 20mg Iv Push) 20 mg in 5 mls @ 2.5 mls/min IV NOW STA Stop: 05/11/21 19:11 Last Admin: 05/11/21 19:21 Dose: 2.5 mls/min Documented by: [id number] Sodium Chloride (Nss) 250 mls @ 999 mls/hr IV .Q16M ONE Stop: 05/11/21 19:25 Last Infusion: 05/11/21 19:40 Dose: 0 mls/hr Documented by: [id number] Admin: 05/11/21 19:21 Dose: 999 mls/hr Documented by: [id number] Ioversol (Optiray 320 100ml) 91 ml IV ONCE ONE Stop: 05/11/21 20:50 Last Admin: 05/11/21 20:49 Dose: 91 ml Documented by: [id number] Ondansetron HCl (Ondansetron Inj 2 Mg/Ml 2 Ml Vial) 4 mg IV NOW STA Stop: 05/11/21 19:11 Last Admin: 05/11/21 19:21 Dose: 4 mg Documented by: [id number] Oxycodone HCl (Oxycodone Hcl Ir 5 Mg Tab (Immediate Release)) 5 mg PO NOW STA Stop: 05/11/21 18:14 Last Admin: 05/11/21 18:37 Dose: 5 mg Documented by: [id number] Imaging Data Radiologist's Impression: Chest X-Ray 05/11/21 17:17 XR chest 1V portable HISTORY: 60 years-old Female Chest Pain acute atypical chest pain COMPARISON: Chest CT and chest radiograph 05/06/2021 TECHNIQUE: Portable AP view of the chest FINDINGS: Marked cardiomegaly. Left subclavian pacer/AICD. Pulmonary vascular congestion with mild interstitial coarsening. Bibasilar densities suggestive of atelectasis with probable trace pleural effusions. No pneumothorax. Degenerative changes of the shoulders and spine. IMPRESSION: Marked cardiomegaly with pulmonary vascular congestion. ACT 112: Negative or not required by law. The above report was generated using voice recognition software. It may contain grammatical, syntax or spelling errors. Electronically signed by: Jae Ortega M.D. 05/11/2021 6:04 PM KUB X-Ray 05/11/21 19:13 KUB HISTORY: Acute generalized abdominal pain with nausea, vomiting and diarrhea abd pain, n/v/d COMPARISON: KUB 09/29/2020 FINDINGS: There are several dilated air-filled loops of small bowel throughout the abdomen measuring up to 4.4 cm transversely. No renal calculi. No ureteral calculi. No pneumoperitoneum or pneumatosis. No fracture. Cardiomegaly with pacer/AICD. IMPRESSION: Dilated air-filled loops of small bowel within the central abdomen are suspicious for a small bowel obstruction. ACT 112: Negative or not required by law. The above report was generated using voice recognition software. It may contain grammatical, syntax or spelling errors. Electronically signed by: Jae Ortega M.D. 05/11/2021 7:54 PM Abdomen/Pelvis CT 05/11/21 20:[address] WITH IV CONTRAST CT DOSE: 1736.06 mGy.cm HISTORY: Acute generalized abdominal pain with nausea, vomiting and diarrhea n/v/d, ?SBO on KUB TECHNIQUE: Multiaxial CT images of the abdomen and pelvis were performed following the IV administration of 91 cc of Optiray, A dose lowering technique was utilized adhering to the principles of ALARA. COMPARISON STUDY: KUB of same day, CT abdomen and pelvis 09/29/2020 FINDINGS: Marked cardiomegaly with partially imaged pacer leads. Small pericardial effusion. Trace pleural effusions with mild bibasilar linear consolidation suggestive of probable atelectasis. No pneumatosis or pneumoperitoneum identified. Unremarkable spleen, pancreas and left adrenal gland. Indeterminate 1.5 cm right adrenal gland lesion is unchanged. Contracted gallbladder. Suggested hepatic steatosis. Patent portal vein. Unremarkable kidneys. No hydronephrosis. Mild urinary bladder wall thickening with partial distention. Aorta and IVC are unremarkable. Decreased size of the previously described left iliac chain lymph nodes which are now within normal limits in size measuring up to 7 mm. The esophagus is fluid-filled and distended. Layering hyperdense material within the stomach and proximal duodenum may be medicinal. The stomach is fluid-filled and dilated as are numerous loops of small bowel in the abdomen and upper p devika. Transition point is noted within the left lower quadrant with decompressed small bowel loops noted distally. No obstructing lesion. Mild interloop edema without bowel wall thickening. Trace abdominal pelvic ascites. Colonic diverticulosis. Normal appendix.Unremarkable soft tissues. Tiny fat filled periumbilical hernia. Degenerative changes of the spine, pelvis and hips. Transitional lumbosacral anatomy. IMPRESSION: 1. High-grade small bowel obstruction with transition point present within the abdominal left lower quadrant, presumably from small bowel adhesions. Mild associated interloop edema with trace ascites. 2. Colonic diverticulosis. 3. Normal appendix. 4. Trace pleural and pericardial effusions. 5. Cardiomegaly. 6. Additional findings as above. Allergies Allergy/AdvReac Type Severity Reaction Status Date / Time fentanyl Allergy Mild RASH,ITCHIN Verified 05/06/21 19:39 G Home Medications Medication Instructions Recorded Confirmed Type trazodone 100 mg tablet 200 mg PO HS 10/07/18 05/11/21 History metformin 500 mg tablet 500 mg PO BID #60 tab 12/15/18 05/11/21 Rx quetiapine 100 mg tablet (Seroquel) 100 mg PO QAM 01/02/19 05/11/21 History Oxygen Home #1 ea 05/09/19 03/04/21 Rx docusate sodium 100 mg capsule 100 mg PO BID #180 cap 06/28/19 05/11/21 Rx (Colace) quetiapine 400 mg tablet (Seroquel) 400 mg PO HS tab 07/05/19 05/11/21 History CPAP Supplies #1 ea 07/12/19 02/26/21 Rx digoxin 125 mcg (0.125 mg) tablet 125 mcg PO QAM #90 tab 04/17/20 05/11/21 Rx rivaroxaban 20 mg tablet (Xarelto) 20 mg PO QAM #90 tab 04/17/20 05/11/21 Rx omeprazole 20 mg capsule,delayed 20 mg PO DAILYBB #90 cap 06/09/20 05/11/21 Rx release Portable Oxygen #1 ea 07/29/20 03/04/21 Rx sacubitril 24 mg-valsartan 26 mg 1 tab PO BID #60 tab 08/27/20 05/11/21 Rx tablet (Entresto) pregabalin 150 mg capsule 150 mg PO BID 30 Days #60 cap 03/04/21 05/11/21 Rx furosemide 40 mg tablet 80 mg PO BID #120 tab 03/24/21 05/11/21 Rx magnesium oxide 400 mg (241.3 mg 400 mg PO QAM 03/24/21 05/11/21 History magnesium) tablet potassium chloride 20 mEq 40 meq PO QAM 03/24/21 05/11/21 History tablet,extended release umeclidinium 62.5 mcg-vilanterol 1 inh INH Q24H #60 ea 04/06/21 05/11/21 Rx 25 mcg/actuation powdr for inhalation (Anoro Ellipta) atorvastatin 10 mg tablet 10 mg PO QAM #90 tab 04/21/21 05/11/21 Rx hydroxyzine HCl 50 mg tablet 50 mg PO DAILY PRN 05/06/21 05/11/21 History metoprolol succinate 100 mg 150 mg PO QAM 05/06/21 05/11/21 History tablet,extended release 24 hr Patient History Medical History Adrenal adenoma Rt sided imaging 01/2020 Asthma Atrial fibrillation on xarelto/metoprolol/digoxin--follows with Dr. Pelayo CHF (congestive heart failure) 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% per echo 06/06/18; non-obstructive CAD per cath 2006 Chronic respiratory failure with hypoxia oxygen 3L n/c at all times COPD (chronic obstructive pulmonary disease) Depression Diabetes type 2, controlled patient denies having diabetes, does not want further testing even though she is prescribed Metformin GERD (gastroesophageal reflux disease) Glaucoma ? pt denies History of alcohol use History of tobacco abuse HTN (hypertension) Lightheadedness Memory impairment Morbid obesity On anticoagulant therapy xarelto daily On home oxygen therapy 3 L N/C at all times Pericardial effusion Peripheral neuropathy PTSD (post-traumatic stress disorder) Pulmonary embolism 2013 while living in [place] Pulmonary hypertension Restrictive lung disease Schizoaffective disorder Severe mitral regurgitation Ventricular arrhythmia Vitamin D deficiency Surgical History AICD (automatic cardioverter/defibrillator) present meditronic History of cardiac cath x2?-- History of decompression of both ulnar nerves History of eye surgery left History of hernia surgery x2 History of incision and drainage (~09/30/20) left tibia History of open reduction and internal fixation (ORIF) procedure left tibia--hardware in place History of tooth extraction partial upper S/P ORIF (open reduction internal fixation) fracture ankle, left--hardware in place S/P tubal ligation Family History Mother , in her 70s Congestive heart failure (CHF) Breast cancer Lung cancer from this Father No problems noted. Other Hypertension No family history of adverse response to anesthesia Ulcerative colitis Denies family history of Colon cancer Ovarian cancer Prostate cancer Myocardial infarction Social History Smoking Status: Current every day smoker Tobacco Type: Cigarettes Years Smoked: 30; Second Hand Exposure: No; Hx Alcohol Use: No Hx Substance Use: Yes (medical marijuana (drops in mouth)) Preferred Language: Frisian Communication Ability: Effective Visual Impairment: No Limitations Hearing Ability: Normal Apns Required: No Beliefs That Will Affect Care: None marital status: marital status details: 5 kids Current Living Situation: Alone and Other Current Living Situation Comment: personal caregivers 4 days a week for 2 hours a day. 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 other: lives in [place] Feels Safe at Home: Yes Childhood Exposure to Second-Hand Smoke: Yes Dental Care, Regularly: No Physical Activity Frequency: Does not Exercise Assistive Devices: Denture - Upper, Glasses, Oxygen - Continuous and Walker Physical Exam Constitutional: WD/WN, vitals as above Eyes: PERRL, conjunctivae normal, anicteric sclerae Neck: trachea midline, no thyromegaly Respiratory: normal respiratory effort, lungs clear to auscultation tenderness at left chest, Cardiovascular: Heart Sounds: normal S1 and normal S2 Gastrointestinal (Abdomen): soft, mild distend, mild tenderness at upper abdomen, no rebound pain, BS + Musculoskeletal: no cyanosis or clubbing, extremities motor strength 5/5 Neurologic: patellar DTR's 2+ bilat, sensation intact Psychiatric: A+Ox3, euthymic affect Results & Data ([facility]) Vital Signs (Past 12 Hours) Vital Signs Temp Pulse Resp BP Pulse Ox 05/11/21 18:34 122/91 96 05/11/21 17:09 37.1 C 120 H 20 125/79 97 Laboratory Results Abnormal lab results 05/11/21 05/11/21 Range/Units 17:45 17:45 RDW Std Deviation 50.6 H (36.4-46.3) fL RDW Coeff of Logan 15.4 H (11.5-14.5) % Neut # (Auto) 7.65 H (1.4-6.5) K/uL Lymph # (Auto) 0.84 L (1.2-3.4) K/uL Bremer # (Auto) 1.31 H (0.11-0.59) K/uL Immature Gran # (Auto) 0.04 H (0.00-0.02) K/uL Sodium 134 L (136-145) mmol/L Chloride 91 L (98-107) mmol/L Glucose 155 H (70-99) mg/dl Calcium 11.2 H (8.5-10.1) mg/dl Phosphorus 5.4 H (2.5-4.9) mg/dl Alkaline Phosphatase 132 H (45-117) U/L NT-Pro-B Natriuret Pep 1885 H (0-900) pg/ml Total Protein 9.0 H (6.4-8.2) gm/dl Globulin 5.6 H (2.5-4.0) gm/dl Albumin/Globulin Ratio 0.6 L (0.9-2) Lipase 68 L (73-393) U/L Diagnostic Findings ABDOMEN AND PELVIS CT WITH IV CONTRAST CT DOSE: 1736.06 mGy.cm HISTORY: Acute generalized abdominal pain with nausea, vomiting and diarrhea n/v/d, ?SBO on KUB TECHNIQUE: Multiaxial CT images of the abdomen and pelvis were performed following the IV administration of 91 cc of Optiray, A dose lowering technique was utilized adhering to the principles of ALARA. COMPARISON STUDY: KUB of same day, CT abdomen and pelvis 09/29/2020 FINDINGS: Marked cardiomegaly with partially imaged pacer leads. Small pericardial effusion. Trace pleural effusions with mild bibasilar linear consolidation suggestive of probable atelectasis. No pneumatosis or pneumoperitoneum identified. Unremarkable spleen, pancreas and left adrenal gland. Indeterminate 1.5 cm right adrenal gland lesion is unchanged. Contracted gallbladder. Suggested hepatic steatosis. Patent portal vein. Unremarkable kidneys. No hydronephrosis. Mild urinary bladder wall thickening with partial distention. Aorta and IVC are unremarkable. Decreased size of the previously described left iliac chain lymph nodes which are now within normal limits in size measuring up to 7 mm. The esophagus is fluid-filled and distended. Layering hyperdense material within the stomach and proximal duodenum may be medicinal. The stomach is fluid-filled and dilated as are numerous loops of small bowel in the abdomen and upper pelvis. Transition point is noted within the left lower quadrant with decompressed small bowel loops noted distally. No obstructing lesion. Mild interloop edema without bowel wall thickening. Trace abdominal pelvic ascites. Colonic diverticulosis. Normal appendix.Unremarkable soft tissues. Tiny fat filled periumbilical hernia. Degenerative changes of the spine, pelvis and hips. Transitional lumbosacral anatomy.
--- NOTE | 2021-05-11 22:47 | History & Physical Report ---
Date of Service May 11, 2021 Assessment & Plan (1) Small bowel obstruction: Plan: 60 year old female past medical history of CHF w/ EF 20-25%, Atrial fibrillation s/p AICD on Xarelto, PE in 2013, COPD on 3L home O2, and prediabetes admitted for SBO w/ nausea and vomiting. SBO: -CT abd/pelvis w/ evidence of high grade SBO. -History of multiple hernia repair surgeries, SBO possibly 2/2 adhesions. -Conservative care for now - NG tube, monitor output, LR fluids started at 100 cc/hr, NPO. Surgery consulted and recommended conservative management at this point. -IV Zosyn 3.75g q6 empiric coverage started. Nausea/Vomiting: -Likely 2/2 SBO. -IV Zofran 4mg QID PRN. Atrial Fibrillation w/ RVR: -Hold metoprolol and start on Lopressor 5mg q4 PRN w/ hold parameters. -Ordered digoxin level before starting on IV digoxin. -Switched patient from oral Xarelto to IV heparin. Given last dose of Xarelto being 8AM this morning, will give heparin 8AM tomorrow morning for prophylaxis. -Admitted to med/surg w/ tele. CHF: -Echo from 09/2020 w/ EF 20-25%. -Holding metoprolol, starting Lopressor 5mg q4 PRN w/ hold parameters. -Will continue to monitor fluid status and vitals. HTN: -Same as above, hold metoprolol, hold furosemide; start Lopressor as stated above. -Patient on LR 100 cc/hr, continue to monitor BP. COPD: -Baseline of 3L O2 at home. Continue O2. -Duoneb QiD first 24 hours with [id number] PRN, continue PRN after. -Continue to monitor O2 saturation and breathing. TOMI: -Patient on CPAP at home. Respiratory therapy consulted for CPAP management while in hospital. Schizoaffective disorder: -Hold Seroquel, trazodone, hydroxyzine. GERD: -Hold omeprazole and started IV famotidine. Diabetes: -Hold metformin. Glucose 155 in ED, ordered A1c. Manage with insulin if needed. HLD: -Hold atorvastatin. Dispo: Med/Surg w/ Telemetry Code Status: Full Code DVT Prophylaxis: Heparin drip (2) Nausea and vomiting: (3) COPD, severe: (4) Chronic systolic heart failure: History of Present Illness Chief Complaint: Nausea/Vomiting and abdominal pain Primary Care Provider: Antonio Oliver MD Grazyna is a 60 year old female with past medical history of CHF w/ EF 20-25%, Atrial fibrillation s/p AICD on Xarelto, COPD on 3L home O2, HTN, and predia betes who presented to the ED with 36 hours of nausea and vomiting and abdominal discomfort. Patient recently came in to the ED Tuesday for a syncopal episode where she hit her left side and had residual rib pain without evidence of fracture on imaging. She was discharged from the ED later that night with a prescription of 4-5 tablets of oxycodone. She said she took the prescription in half doses and finished the course due to her pain. 36 hours prior she started getting nauseous and has had multiple episodes of vomiting since then. She has had some discomfort with it in the upper quadrants as well. Patient has had regular bowel movement frequency but with a loose consistency. Patient said she has not had any swelling the past 36 hours in her lower extremities. Patient endorsed having a history of PE in the past and said she was put on the Xarelto for PE in 2013. When asked if she has had any other clots going to her lungs since being put on Xarelto she said yes but I was unable to ascertain how many times as she was drowsy by this point from pain medication. Patient said her A. fib at home has been well controlled with her not feeling any symptoms of palpitations. Denies tobacco use, alcohol use, however uses medical marijuana. Denies fevers, chills, palpitations, shortness of breath above baseline, urinary incontinence or pain with urination, blood in stool. Allergies Allergy/AdvReac Type Severity Reaction Status Date / Time fentanyl Allergy Mild RASH,ITCHIN Verified 05/06/21 19:39 G Home Medications Medication Instructions Recorded Confirmed Type trazodone 100 mg tablet 200 mg PO HS 10/07/18 05/11/21 History metformin 500 mg tablet 500 mg PO BID #60 tab 12/15/18 05/11/21 Rx quetiapine 100 mg tablet (Seroquel) 100 mg PO QAM 01/02/19 05/11/21 History Oxygen Home #1 ea 05/09/19 03/04/21 Rx docusate sodium 100 mg capsule 100 mg PO BID #180 cap 06/28/19 05/11/21 Rx (Colace) quetiapine 400 mg tablet (Seroquel) 400 mg PO HS tab 07/05/19 05/11/21 History CPAP Supplies #1 ea 07/12/19 02/26/21 Rx digoxin 125 mcg (0.125 mg) tablet 125 mcg PO QAM #90 tab 04/17/20 05/11/21 Rx rivaroxaban 20 mg tablet (Xarelto) 20 mg PO QAM #90 tab 04/17/20 05/11/21 Rx omeprazole 20 mg capsule,delayed 20 mg PO DAILYBB #90 cap 06/09/20 05/11/21 Rx release Portable Oxygen #1 ea 07/29/20 03/04/21 Rx sacubitril 24 mg-valsartan 26 mg 1 tab PO BID #60 tab 08/27/20 05/11/21 Rx tablet (Entresto) pregabalin 150 mg capsule 150 mg PO BID 30 Days #60 cap 03/04/21 05/11/21 Rx furosemide 40 mg tablet 80 mg PO BID #120 tab 03/24/21 05/11/21 Rx magnesium oxide 400 mg (241.3 mg 400 mg PO QAM 03/24/21 05/11/21 History magnesium) tablet potassium chloride 20 mEq 40 meq PO QAM 03/24/21 05/11/21 History tablet,extended release umeclidinium 62.5 mcg-vilanterol 1 inh INH Q24H #60 ea 04/06/21 05/11/21 Rx 25 mcg/actuation powdr for inhalation (Anoro Ellipta) atorvastatin 10 mg tablet 10 mg PO QAM #90 tab 04/21/21 05/11/21 Rx hydroxyzine HCl 50 mg tablet 50 mg PO DAILY PRN 05/06/21 05/11/21 History metoprolol succinate 100 mg 150 mg PO QAM 05/06/21 05/11/21 History tablet,extended release 24 hr Past Med/Surg History Medical History Adrenal adenoma Rt sided imaging 01/2020 Asthma Atrial fibrillation on xarelto/metoprolol/digoxin--follows with Dr. Pelayo CHF (congestive heart failure) 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% per echo 06/06/18; non-obstructive CAD per cath 2006 Chronic respiratory failure with hypoxia oxygen 3L n/c at all times COPD (chronic obstructive pulmonary disease) Depression Diabetes type 2, controlled patient denies having diabetes, does not want further testing even though she is prescribed Metformin GERD (gastroesophageal reflux disease) Glaucoma ? pt denies History of alcohol use History of tobacco abuse HTN (hypertension) Lightheadedness Memory impairment Morbid obesity On anticoagulant therapy xarelto daily On home oxygen therapy 3 L N/C at all times Pericardial effusion Peripheral neuropathy PTSD (post-traumatic stress disorder) Pulmonary embolism 2013 while living in [place] Pulmonary hypertension Restrictive lung disease Schizoaffective disorder Severe mitral regurgitation Ventricular arrhythmia Vitamin D deficiency Surgical History AICD (automatic cardioverter/defibrillator) present meditronic History of cardiac cath x2?-- History of decompression of both ulnar nerves History of eye surgery left History of hernia surgery x2 History of incision and drainage (~09/30/20) left tibia History of open reduction and internal fixation (ORIF) procedure left tibia--hardware in place History of tooth extraction partial upper S/P ORIF (open reduction internal fixation) fracture ankle, left--hardware in place S/P tubal ligation Family History Mother , in her 70s Congestive heart failure (CHF) Breast cancer Lung cancer from this Father No problems noted. Other Hypertension No family history of adverse response to anesthesia Ulcerative colitis Denies family history of Colon cancer Ovarian cancer Prostate cancer Myocardial infarction Social History Smoking Status: Former smoker Tobacco Type: Cigarettes Years Smoked: 30; Second Hand Exposure: No; Do You Dip or Chew Tobacco: No; Tobacco Cessation Education Requested by Patient: No Hx Alcohol Use: No Hx Substance Use: No Preferred Language: Irish Communication Ability: Effective Visual Impairment: No Limitations Hearing Ability: Normal Supervisor Screen Making Required: No Beliefs That Will Affect Care: None marital status: marital status details: 5 kids Current Living Situation: Alone Current Living Situation Comment: personal caregivers 4 days a week for 2 hours a day. 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 Other Information That Helps Us Care for You: No other: lives in [place] Feels Safe at Home: Yes Safety Concerns: Feels Safe At This Time Childhood Exposure to Second-Hand Smoke: Yes Dental Care, Regularly: No Physical Activity Frequency: Does not Exercise Assistive Devices: Oxygen - Continuous Review of Systems Constitutional: + fatigue and + weakness Gastrointestinal: + abdominal pain, + heartburn, + nausea, + vomiting and + change in bowel habits Physical Exam Eyes: PERRL, conjunctivae normal, anicteric sclerae ENMT: external ear and nose normal, oropharynx normal Respiratory: normal respiratory effort, lungs clear to auscultation Cardiovascular: Rate/Rhythm: + irregularly irregular Heart Sounds: normal S1 and normal S2 Gastrointestinal (Abdomen): Inspection/Auscultation: + abdomen distended and normal bowel sounds Skin: no rashes, warm and dry Psychiatric: A+Ox3, euthymic affect Results & Data Results & Data ([facility]) Vital Signs (Past 12 Hours) Vital Signs Temp Pulse Resp BP Pulse Ox 05/11/21 18:34 122/91 96 05/11/21 17:09 37.1 C 120 H 20 125/79 97 Supervising Physician Co-Signing Physician Notes Attending addendum: I have physically seen this patient, have supervised the medical residents activities, and agree with the H&P unless as otherwise noted. Assessment and Plan: Small bowel obstruction- N.p.o. Zofran 4 mg IV every 6 hours as needed Zosyn 4.5 g IV every 8 hours Famotidine 20 mg IV every 12 hours NSS + KCl 20 mEq at 100 mils per hour Changing Xarelto to IV heparin per protocol Consult general surgery Remaining orders and notations as noted Resident Activity Tracking Resident Involvement: Resident Care Provided Care Provided: Adult Hospital Medicine
[2021-05-12] MEDS ORDERED: PIPERACILL/TAZOBAC CONSULT ACTIVE PRN (01:13)
[2021-05-12] MEDS ORDERED: METOPROLOL TARTRATE 1 MG/ML VIAL IV PRN (01:13)
[2021-05-12] MEDS ORDERED: Heparin IV Adult Wt-Based Low-Dose *NO* Bolus Protocol IV SCH (01:13)
[2021-05-12] MEDS ORDERED: ALBUT/IPRATROP 3MG/0.5MG NEB 3 ML VIAL NEB PRN (01:13)
[2021-05-12] MEDS ORDERED: PIPERACILLIN/TAZOBACTAM 3.375 GM in DEXTROSE 5% 100 ML IV SCH (01:13)
[2021-05-12 01:25] LABS: Partial Thromboplastin Ratio 1.2; Partial Thromboplastin Time 31.5 Seconds (21.0-31.0)
[2021-05-12] MEDS ORDERED: PATIENT'S HEIGHT AND/OR WEIGHT NEEDED SCH (01:30)
[2021-05-12] MEDS ORDERED: PIPERACILLIN/TAZOBACTAM 4.5 GM in DEXTROSE 5% 100 ML IV ONE (01:45)
[2021-05-12] MEDS: LACTATED RINGER'S 1,000 ML IV SCH ×2 (02:51→15:16)
[2021-05-12] MEDS: HEPARIN SODIUM/DEXTROSE 25,000 UNITS/500 ML BAG IV SCH ×2 (03:38→22:07)
[2021-05-12] MEDS ORDERED: FLUARIX QUADRIVALENT 0.5 ML SYR IM ONE (04:57)
[2021-05-12] MEDS ORDERED: PIPERACILLIN/TAZOBACTAM 4.5 GM in DEXTROSE 5% 100 ML IV SCH (06:00)
--- NOTE | 2021-05-12 07:46 | Hospitalist Progress Note ---
Date of Service May 12, 2021 Assessment & Plan (1) Small bowel obstruction: Plan: Grazyna is a 60 y/o F with PMHx of hernia repair x2, tubal ligation, CHF (EF20- 25%), nonischemic cardiomyopathy, schizoaffective disorder, atrial fibrillation on Xarelto, HTN, and hyperlipidemia who was admitted for an SBO. #SBO -etiology suspicious for adhesions given past surgical history -Afebrile, no leukocytosis; ABX were discontinued -Conservative management: NG tube (2800cc), monitor output, LR fluids started at 100 cc/hr, NPO. Notes the NG tube improved symptoms. Surgery agreed with conservative management. -Zofran 4mg PRN for nausea -closely monitor electrolytes, vitals especially w/ her multiple episodes of vomiting #hypercalcemia -Ca was elevated at 11.2 -PTH and Ca from 01/28/21 were WNL, making the etiology of her current hypercalcemia 2/2 dehydration/hemo-concentration -can monitor this outpatient #AFIB -takes Xarelto PO at home, switched to IV heparin while npo -05/11 EKG showed AFIB #COPD -baseline is 3L O2 at home #CHF -EF 20-25% -continue digoxin -history/physical exam did not appoint towards acute HF exacerbation #Schizoaffective disorder: -Hold Seroquel, trazodone, hydroxyzine while npo Diet: NPO DVT prophylaxis: IV heparin Disposition: PCU (2) Nausea and vomiting: (3) Anticoagulant long-term use: (4) Oxygen dependent: (5) Atrial fibrillation: (6) Nonischemic cardiomyopathy: (7) ICD (implantable cardioverter-defibrillator) in place: (8) Contusion of rib on left side: (9) COPD, severe: Admission and Anticipated Discharge Date Admission Date: May 11, 2021 Supervising Physician Co-Signing Physician Notes I personally examined the patient and verified all eugene points of history and exam, discussed case, and agree with decision making with Endy [facility] Still with belly pain. NG tube in place. As is usually her preference, once I enter the room, she gets her sister on speaker phone to be able to hear the situation as well, given that the patient feels that she will understand what is going on with her as well. Updated patient/sister to the best my ability and an swered all of their questions to their satisfaction. Vitals noted, in general she appears mildly uncomfortable but fortunately not severe distress. HEENT normocephalic atraumatic mucous membranes are moist NG tube in place without breakdown. Abdomen is moderately distended but no rigidity guarding rebound, hypoactive bowel sounds. Extremities with trace edema. No focal neuro deficits. Small bowel obstructionlikely adhesionalfortunately no surgical indications. Given that it was high-grade on imaging, appreciate surgical assistance/backup, but hopefully conservative care will be all that is needed. Continue NG drainage, pain/nausea control, IV fluids A. fibrate is controlled, anticoagulated Hypercalcemiaactually had a PTH checked on 01/28 which was normal, at the time her calcium was a normal 9.9. She has not run hypercalcemic before, and I strongly suspect this probably more of a dehydration/hemoconcentration phenomenon Continue conservative care/expectant management. Otherwise as above Subjective Grazyna is a 60-year-old woman with a PMHx of CHF, nonischemic cardiomyopathy, schizoaffective disorder, atrial fibrillation on Xarelto, HTN, hyperlipidemia. Surg history includes hernia repair x2 and tubal ligation. She presented to ED on the evening of 05/11 due to generalized weakness, nausea and diarrhea for 24 hours. She also noted left posterior lateral chest wall pain which began after a fall - she was seen in ED, had no fractures. In the ED she denied cough, congestion, SOB, increased fluid retention from her baseline, fevers, recent abx. ED workup included: -KUB: suggestive of possible bowel obstruction -CT abd pelvis: evidence of high-grade bowel obstruction with position point within the left lower quadrant abdominal wall with suspicion to be from small bowel adhesions. There is mild associated interloop edema with trace ascites. Findings reviewed the patient and she did agree with plan for admission for further management including NG tube and surgery consultation -EKG: atrial fibrillation without overt acute ischemia -Troponin negative -CXR: question of volume overload although pt is asymptomatic -Chemistries/electrolytes were normal except for calcium 11.2 -WBC, H/H, platelets: WNL -Pt was nauseous and vomited -Pt agreed to NG tube and surg consult Today: Grazyna shared that for the past month, she has had symptoms of nausea/decreased appetite, but she's been drinking adequate fluids. Since her hospital admission she vomited x3. Feels better after NG tube placement. She has some discomfort with moving around, especially in the L chest/rib area - she was in the ER on 05/06 for an accident in that area. She shared that she takes all her meds at home. No fevers, chills, SOB Review of Systems Review of Systems: All systems reviewed & are unremarkable except as noted in Subjective Physical Exam Physical Exam: Appearance: uncomfortable, was unable to find a comfortable position in her hospital bed. Contents from the NG tube appeared bilious, feculent. Respiratory: normal respiratory effort, lungs clear to auscultation normal respiratory effort Auscultation: lungs clear to auscultation bilaterally Cardiovascular: normal S1 and normal S2 Gastrointestinal (Abdomen): Abdomen distended Bowel sounds present + pain to palpation to all 4 quadrants, no rebound/guarding Results & Data Results & Data ([facility]) Vital Signs (Past 12 Hours) Vital Signs Temp Pulse Pulse Resp BP BP Pulse Ox 05/12/21 07:15 83 16 96 05/12/21 07:07 36.6 C 100 H 20 119/80 93 05/12/21 05:00 86 05/12/21 04:24 36.2 C L 87 20 118/80 96 05/12/21 02:00 86 17 120/77 98 05/12/21 01:00 92 H 21 110/83 99 05/11/21 23:20 96 H 21 110/90 98 05/11/21 23:10 101 H 26 H 97 05/11/21 23:00 95 H 23 98 05/11/21 22:50 97 H 20 158/98 H 97 05/11/21 22:40 100 H 24 97 05/11/21 22:30 97 H 19 96 05/11/21 22:20 92 H 22 97 05/11/21 22:00 97 H 20 111/95 98 05/11/21 21:00 107 H 21 145/98 H 97 Laboratory Results Abnormal lab results 05/11/21 05/11/21 05/12/21 Range/Units 17:45 17:45 00:48 RDW Std Deviation 50.6 H (36.4-46.3) fL RDW Coeff of Logan 15.4 H (11.5-14.5) % Neut # (Auto) 7.65 H (1.4-6.5) K/uL Lymph # (Auto) 0.84 L (1.2-3.4) K/uL Sierra # (Auto) 1.31 H (0.11-0.59) K/uL Immature Gran # (Auto) 0.04 H (0.00-0.02) K/uL APTT 31.5 H (21.0-31.0) Seconds Sodium 134 L (136-145) mmol/L Chloride 91 L (98-107) mmol/L Glucose 155 H (70-99) mg/dl Calcium 11.2 H (8.5-10.1) mg/dl Phosphorus 5.4 H (2.5-4.9) mg/dl Alkaline Phosphatase 132 H (45-117) U/L NT-Pro-B Natriuret Pep 1885 H (0-900) pg/ml Total Protein 9.0 H (6.4-8.2) gm/dl Globulin 5.6 H (2.5-4.0) gm/dl Albumin/Globulin Ratio 0.6 L (0.9-2) Lipase 68 L (73-393) U/L Current Inpatient Medications Albuterol (Albut/Ipratrop 3mg/0.5mg Neb 3 Ml Vial) 3 ml NEB Q2H PRN PRN Reason: Wheezing Stop: 05/13/21 01:12 Famotidine 20 mg/ Syringe 5 mls @ 2.5 mls/min IV Q12H VICTOR M Stop: 06/11/21 08:59 Heparin Sodium/Dextrose (Heparin Sodium/Dextrose) 25,000 units in 500 mls @ 20 mls/hr IV .Q24H VICTOR M; Protocol Stop: 06/11/21 01:12 Last Admin: 05/12/21 03:38 Dose: 1,000 units/hr, 20 mls/hr Documented by: Acetaminophen (Ofirmev) 1,000 mg in 100 mls @ 400 mls/hr IV Q8H PRN PRN Reason: Pain Stop: 05/15/21 01:12 Lactated Ringer's (Lr) 1,000 mls @ 100 mls/hr IV .Q10H VICTOR M Stop: 05/12/21 21:12 Last Admin: 05/12/21 02:51 Dose: 100 mls/hr Documented by: Piperacillin Sod/Tazobactam (Sod 4.5 gm/ Dextrose) 120 mls @ 30 mls/hr IV Q8H [facility]; Protocol Stop: 05/22/21 05:59 Last Admin: 05/12/21 05:43 Dose: 30 mls/hr Documented by: Digoxin 125 mcg/ Syringe 10 mls @ 2 mls/min IV DAILY@1600 VICTOR M Stop: 06/11/21 15:59 Ketorolac Tromethamine (Ketorolac Tromethamine 15 Mg/Ml Vial) 15 mg IV Q6H PRN PRN Reason: Pain Stop: 05/17/21 01:12 Metoprolol Tartrate (Metoprolol Tartrate 1 Mg/Ml Vial) 5 mg IV Q4H PRN PRN Reason: HR > 110 Stop: 06/11/21 01:12 Miscellaneous Information (Piperacill/Tazobac Consult Active) 1 ea N/A UD PRN PRN Reason: Consult Stop: 06/11/21 01:12 Ondansetron HCl (Ondansetron Inj 2 Mg/Ml 2 Ml Vial) 4 mg IV Q6H PRN PRN Reason: Nausea And Vomiting Stop: 06/10/21 23:44 Umeclidinium/Vilanterol (Umeclidinium/Vilanterol 62.5/25mcg 7 Puffs/Inhaler) 1 puffs INH QAM [facility] Stop: 06/11/21 08:59 (1) Contusion of rib on left side Encounter type: initial encounter Qualified Code(s): S20.212A - Contusion of left front wall of thorax, initial encounter (2) Nausea and vomiting Vomiting type: unspecified Qualified Code(s): R11.2 - Nausea with vomiting, unspecified
[2021-05-12] MEDS: UMECLIDINIUM/VILANTEROL 62.5/25MCG 7 PUFFS/INHALER INH SCH (08:55)
[2021-05-12] MEDS: FAMOTIDINE 20 MG in SYRINGE 3 ML IV SCH ×2 (08:55→20:03)
[2021-05-12] MEDS ORDERED: DIGOXIN 500 MCG/2 ML AMP IV SCH (09:00)
[2021-05-12 09:43] LABS: Hematocrit (blood only) 40.9 % (37-47); Hemoglobin 13.4 g/dL (12.0-16.0); Mean Corpuscular Hemoglobin 30.2 pg (25-34); Mean Corpuscular Hgb Conc 32.8 g/dL (32-36); Mean Corpuscular Volume 92.1 fL (80-100); Mean Platelet Volume 9.6 fL (7.4-10.4); Platelet Count 327 K/uL (130-400); RDW Coefficient of Variation 15.9 % (11.5-14.5); RDW Standard Deviation 53.4 fL (36.4-46.3); Red Blood Count 4.44 M/uL (4.2-5.4); White Blood Count 7.15 K/uL (4.8-10.8)
[2021-05-12 09:59] LABS: Partial Thromboplastin Ratio 1.2; Partial Thromboplastin Time 30.3 Seconds (21.0-31.0)
[2021-05-12 10:05] LABS: Albumin Level 3.1 gm/dl (3.4-5.0); BUN Creatinine Ratio 11.7 (10-20); Calcium 10.6 mg/dl (8.5-10.1); Creatinine Clr Calc Pharmacy 63.8 ml/min; Est GFR (Non-African American) 44.9 ml/min; Potassium 3.9 mmol/L (3.5-5.1)
[2021-05-12] MEDS: ACETAMINOPHEN 1,000 MG/100 ML VIAL IV PRN ×2 (10:05→20:02)
[2021-05-12 10:08] LABS: Albumin Globulin Ratio 0.6 (0.9-2); Bilirubin,Total 0.7 mg/dl (0.2-1); Globulin 5.4 gm/dl (2.5-4.0); Total Protein 8.5 gm/dl (6.4-8.2)
[2021-05-12] MEDS ORDERED: HEPARIN SOD (PORCINE) 1000 UNIT/ML IV ONE ×2 (10:12→17:45)
--- NOTE | 2021-05-12 10:26 | Electrocardiogram Report ---
Test Reason : Blood Pressure : / mmHG Vent. Rate : 134 BPM Atrial Rate : 258 BPM P-R Int : 000 ms QRS Dur : 102 ms QT Int : 326 ms P-R-T Axes : 000 044 -78 degrees QTc Int : 486 ms Poor data quality, interpretation may be adversely affected Probable Atrial fibrillation with rapid ventricular response with premature ventricular or aberrantly conducted complexes Low voltage QRS Nonspecific ST and T wave abnormality Abnormal ECG When compared with ECG of 06-MAY-2021 15:54, Atrial fibrillation has replaced Junctional rhythm Nonspecific T wave abnormality, worse in Inferior leads Confirmed by Nolan Douglas ([id number]) on 05/12/2021 10:26:04 AM Referred By: REFERRED SELF Confirmed By:Nolan Douglas
[2021-05-12] MEDS ORDERED: HEPARIN IV BOLUS 4,500 UNITS in SYRINGE 0 ML IV ONE (10:30)
--- NOTE | 2021-05-12 11:16 | Hospitalist Progress Note ---
Date of Service May 12, 2021 Assessment & Plan (1) Small bowel obstruction: Plan: 60 year old female past medical history of CHF w/ EF 20-25%, Atrial fibrillation s/p AICD on Xarelto, PE in 2013, COPD on 3L home O2, and prediabetes admitted for SBO w/ nausea and vomiting. * SBO: -per surgery: conservative care for now - NG tube, monitor output, LR fluids started at 100 cc/hr, NPO. -IV Zosyn 3.75g q6 empiric coverage started. * Atrial Fibrillation w/ RVR: -Hold metoprolol and start on Lopressor 5mg q4 PRN w/ hold parameters. -Ordered digoxin level before starting on IV digoxin. -Switched patient from oral Xarelto to IV heparin. Given last dose of Xarelto being 8AM this morning, will give heparin 8AM tomorrow morning for prophylaxis. -Admitted to med/surg w/ tele. CHF: -Echo from 09/2020 w/ EF 20-25%. -Holding metoprolol, starting Lopressor 5mg q4 PRN w/ hold parameters. -Will continue to monitor fluid status and vitals. HTN: -Same as above, hold metoprolol, hold furosemide; start Lopressor as stated above. -Patient on LR 100 cc/hr, continue to monitor BP. COPD: -Baseline of 3L O2 at home. Continue O2. -Duoneb QiD first 24 hours with [id number] PRN, continue PRN after. -Continue to monitor O2 saturation and breathing. TOMI: -Patient on CPAP at home. Respiratory therapy consulted for CPAP management while in hospital. Schizoaffective disorder: -Hold Seroquel, trazodone, hydroxyzine. GERD: -Hold omeprazole and started IV famotidine. Diabetes: -Hold metformin. Glucose 155 in ED, ordered A1c. Manage with insulin if needed. HLD: -Hold atorvastatin. Dispo: Med/Surg w/ Telemetry Code Status: Full Code DVT Prophylaxis: Heparin drip (2) Nausea and vomiting: (3) COPD, severe: (4) Chronic systolic heart failure: Admission and Anticipated Discharge Date Admission Date: May 11, 2021 Subjective Event is a 60-year-old woman with past medical history of systolic congestive heart failure, atrial fibrillation on Xarelto, pulmonary embolus x1, COPD, currently on 3 L oxygen, prediabetes, as well as a history of multiple hernia repairs surgeries. She presented to the emergency room yesterday with a chief complaint of nausea and vomiting. Her ED course was notable for a CT abdomen pelvis that showed evidence of a small bowel obstruction. She had a nasogastric tube placed, which put out approximately 600 mL of gastric content upon seeing her this morning. She reported no acute events overnight. However, she is an unreliable historian and was unable to provide any information about her symptoms origin and course. She noted that her symptoms began with nausea, which progressed to vomiting. She denies abdominal pain, or back pain. Review of symptoms was otherwise negative. She inquired as to whether she would get surgery to manage this. Otherwise she has no acute complaints or concerns. Review of Systems Review of Systems: All systems reviewed & are unremarkable except as noted in HPI & below Physical Exam Constitutional: WD/WN, vitals as above Respiratory: normal respiratory effort, lungs clear to auscultation Cardiovascular: RRR, no murmur, no edema Gastrointestinal (Abdomen): Inspection/Auscultation: + abdomen distended Percussion/Palpation: abdomen nontender, no hepatomegaly and no ascites Results & Data Results & Data ([facility]) Vital Signs (Past 12 Hours) Vital Signs Temp Pulse Pulse Resp BP BP Pulse Ox 05/12/21 09:45 88 05/12/21 07:15 83 16 96 05/12/21 07:07 36.6 C 100 H 20 119/80 93 05/12/21 05:00 86 05/12/21 04:24 36.2 C L 87 20 118/80 96 05/12/21 02:00 86 17 120/77 98 05/12/21 01:00 92 H 21 110/83 99 05/11/21 23:20 96 H 21 110/90 98 (1) Nausea and vomiting Vomiting type: unspecified Qualified Code(s): R11.2 - Nausea with vomiting, unspecified
[2021-05-12 11:20] LABS: Basophils # (auto) 0.01 K/uL (0-0.2); Basophils % (auto) 0.1 %; Eosinophils # (auto) 0.12 K/uL (0-0.5); Eosinophils % (auto) 1.7 %; Immature Granulocytes # (auto) 0.02 K/uL (0.00-0.02); Immature Granulocytes % (auto) 0.3 %; Lymphocytes # (auto) 1.09 K/uL (1.2-3.4); Lymphocytes % (auto) 15.2 %; Monocytes # (auto) 1.31 K/uL (0.11-0.59); Monocytes % (auto) 18.3 %; Neutrophils % (auto) 64.4 %
[2021-05-12 12:27] LABS: Estimated Average Glucose 137 mg/dl; Hemoglobin A1C 6.4 % (4.5-5.6)
--- NOTE | 2021-05-12 12:33 | Surgery Progress Note ---
Date of Service May 12, 2021 Assessment & Plan (1) Small bowel obstruction: Plan: afebrile, no leukocytosis NGT with 2800 cc output since placement abdomen distended but soft no peritonitis Plan: Continue conservative measures: NPO for bowel rest, NGT to LIS, pain management as needed (try to limit narcotics), IV fluids continue medical management will continue to follow Dr. Valentin has seen and examined pt, agrees with above. Admission and Anticipated Discharge Date Admission Date: May 11, 2021 Subjective patient had to urinate when I entered room, helped her get up to the bathroom she was moaning of pain when getting up to bathroom but she denied of abdominal pain, stated it was rib pain denies nausea or vomiting denies flatus or bowel movement unsure if history completely reliable as I asked her questions multiple times and she was preoccupied with needing to urinate and sister calling on the phone. Physical Exam Constitutional: + obese; no acute distress and not ill appearing Respiratory: normal respiratory effort; no respiratory distress and no labored breathing oxygen via nasal cannula Gastrointestinal (Abdomen): Inspection/Auscultation: + abdomen distended, + abdominal surgical scar (midline laparotomy scar present) and + hypoactive bowel sounds; + abnormal bowel sounds Percussion/Palpation: + abdomen tender (upper abdomen) and abdomen soft; no guarding and abdomen not rigid NGT with 800 cc of bilious output Skin: no rashes, warm and dry Psychiatric: Orientation: alert Results & Data ([facility]) Vital Signs (Past 12 Hours) Vital Signs Temp Pulse Pulse Resp BP BP Pulse Ox 05/12/21 11:18 36.9 C 103 H 18 121/81 97 05/12/21 09:45 88 05/12/21 07:15 83 16 96 05/12/21 07:07 36.6 C 100 H 20 119/80 93 05/12/21 05:00 86 05/12/21 04:24 36.2 C L 87 20 118/80 96 05/12/21 02:00 86 17 120/77 98 05/12/21 01:00 92 H 21 110/83 99 Laboratory Results 05/12/21 05/12/21 05/12/21 Range/Units 09:28 09:28 09:28 WBC (4.8-10.8) K/uL RBC (4.2-5.4) M/uL Hgb (12.0-16.0) g/dL Hct (37-47) % MCV (80-100) fL MCH (25-34) pg MCHC (32-36) g/dL RDW Std Deviation (36.4-46.3) fL RDW Coeff of Logan (11.5-14.5) % Plt Count (130-400) K/uL MPV (7.4-10.4) fL Immature Gran % (Auto) % Neut % (Auto) % Lymph % (Auto) % Dixon % (Auto) % Eos % (Auto) % Baso % (Auto) % Neut # (Auto) (1.4-6.5) K/uL Lymph # (Auto) (1.2-3.4) K/uL Dixon # (Auto) (0.11-0.59) K/uL Eos # (Auto) (0-0.5) K/uL Baso # (Auto) (0-0.2) K/uL Immature Gran # (Auto) (0.00-0.02) K/uL APTT 30.3 PTT Ratio 1.2 Sodium 136 (136-145) mmol/L Potassium 3.9 (3.5-5.1) mmol/L Chloride 93 L (98-107) mmol/L Carbon Dioxide 36 H (21-32) mmol/L Anion Gap 8.0 (3-11) BUN 15 (7-18) mg/dl Creatinine 1.30 H (0.6-1.2) mg/dl Est Cr Clr Drug Dosing 63.8 Est GFR ( Amer) 52.0 ml/min Est GFR (Non-Af Amer) 44.9 ml/min BUN/Creatinine Ratio 11.7 (10-20) Glucose 119 H (70-99) mg/dl Estimat Average Glucose 137 mg/dl Hemoglobin A1c 6.4 H (4.5-5.6) % Calcium 10.6 H (8.5-10.1) mg/dl Phosphorus (2.5-4.9) mg/dl Magnesium (1.8-2.4) mg/dl Total Bilirubin 0.7 (0.2-1) mg/dl AST 14 L (15-37) U/L ALT 26 (12-78) Alkaline Phosphatase 116 (45-117) U/L Troponin I (0-0.045) ng/ml NT-Pro-B Natriuret Pep (0-900) pg/ml Total Protein 8.5 H (6.4-8.2) gm/dl Albumin 3.1 L (3.4-5.0) gm/dl Globulin 5.4 H (2.5-4.0) gm/dl Albumin/Globulin Ratio 0.6 L (0.9-2) Lipase (73-393) U/L Digoxin (0.8-2.0) ng/ml SARS-CoV-2 (PCR) (Negative) Influenza Type A (PCR) (Neg) Influenza Type B (PCR) (Neg) RSV (RT-PCR) (Neg) 05/12/21 05/12/21 05/11/21 Range/Units 09:28 00:48 23:39 WBC 7.15 (4.8-10.8) K/uL RBC 4.44 (4.2-5.4) M/uL Hgb 13.4 (12.0-16.0) g/dL Hct 40.9 (37-47) % MCV 92.1 (80-100) fL MCH 30.2 (25-34) pg MCHC 32.8 (32-36) g/dL RDW Std Deviation 53.4 H (36.4-46.3) fL RDW Coeff of Logan 15.9 H (11.5-14.5) % Plt Count 327 (130-400) K/uL MPV 9.6 (7.4-10.4) fL Immature Gran % (Auto) 0.3 % Neut % (Auto) 64.4 % Lymph % (Auto) 15.2 % Dixon % (Auto) 18.3 % Eos % (Auto) 1.7 % Baso % (Auto) 0.1 % Neut # (Auto) 4.60 (1.4-6.5) K/uL Lymph # (Auto) 1.09 L (1.2-3.4) K/uL Dixon # (Auto) 1.31 H (0.11-0.59) K/uL Eos # (Auto) 0.12 (0-0.5) K/uL Baso # (Auto) 0.01 (0-0.2) K/uL Immature Gran # (Auto) 0.02 (0.00-0.02) K/uL APTT 31.5 H PTT Ratio 1.2 Sodium (136-145) mmol/L Potassium (3.5-5.1) mmol/L Chloride (98-107) mmol/L Carbon Dioxide (21-32) mmol/L Anion Gap (3-11) BUN (7-18) mg/dl Creatinine (0.6-1.2) mg/dl Est Cr Clr Drug Dosing Est GFR ( Amer) ml/min Est GFR (Non-Af Amer) ml/min BUN/Creatinine Ratio (10-20) Glucose (70-99) mg/dl Estimat Average Glucose mg/dl Hemoglobin A1c (4.5-5.6) % Calcium (8.5-10.1) mg/dl Phosphorus (2.5-4.9) mg/dl Magnesium (1.8-2.4) mg/dl Total Bilirubin (0.2-1) mg/dl AST (15-37) U/L ALT (12-78) Alkaline Phosphatase (45-117) U/L Troponin I (0-0.045) ng/ml NT-Pro-B Natriuret Pep (0-900) pg/ml Total Protein (6.4-8.2) gm/dl Albumin (3.4-5.0) gm/dl Globulin (2.5-4.0) gm/dl Albumin/Globulin Ratio (0.9-2) Lipase (73-393) U/L Digoxin 0.9 (0.8-2.0) ng/ml SARS-CoV-2 (PCR) (Negative) Influenza Type A (PCR) (Neg) Influenza Type B (PCR) (Neg) RSV (RT-PCR) (Neg) 05/11/21 05/11/21 05/11/21 Range/Units 23:39 17:45 17:45 WBC 9.92 (4.8-10.8) K/uL RBC 4.72 (4.2-5.4) M/uL Hgb 14.3 (12.0-16.0) g/dL Hct 42.2 (37-47) % MCV 89.4 (80-100) fL MCH 30.3 (25-34) pg MCHC 33.9 (32-36) g/dL RDW Std Deviation 50.6 H (36.4-46.3) fL RDW Coeff of Logan 15.4 H (11.5-14.5) % Plt Count 322 (130-400) K/uL MPV 9.9 (7.4-10.4) fL Immature Gran % (Auto) 0.4 % Neut % (Auto) 77.1 % Lymph % (Auto) 8.5 % Dixon % (Auto) 13.2 % Eos % (Auto) 0.7 % Baso % (Auto) 0.1 % Neut # (Auto) 7.65 H (1.4-6.5) K/uL Lymph # (Auto) 0.84 L (1.2-3.4) K/uL Dixon # (Auto) 1.31 H (0.11-0.59) K/uL Eos # (Auto) 0.07 (0-0.5) K/uL Baso # (Auto) 0.01 (0-0.2) K/uL Immature Gran # (Auto) 0.04 H (0.00-0.02) K/uL APTT Cancelled PTT Ratio Cancelled Sodium 134 L (136-145) mmol/L Potassium 3.6 (3.5-5.1) mmol/L Chloride 91 L (98-107) mmol/L Carbon Dioxide 32 (21-32) mmol/L Anion Gap 11.0 (3-11) BUN 13 (7-18) mg/dl Creatinine 1.04 (0.6-1.2) mg/dl Est Cr Clr Drug Dosing Not Reportable Est GFR ( Amer) 68.1 ml/min Est GFR (Non-Af Amer) 58.8 ml/min BUN/Creatinine Ratio 12.0 (10-20) Glucose 155 H (70-99) mg/dl Estimat Average Glucose mg/dl Hemoglobin A1c (4.5-5.6) % Calcium 11.2 H (8.5-10.1) mg/dl Phosphorus 5.4 H (2.5-4.9) mg/dl Magnesium 2.4 (1.8-2.4) mg/dl Total Bilirubin 0.6 (0.2-1) mg/dl AST 18 (15-37) U/L ALT 28 (12-78) Alkaline Phosphatase 132 H (45-117) U/L Troponin I < 0.015 (0-0.045) ng/ml NT-Pro-B Natriuret Pep 1885 H (0-900) pg/ml Total Protein 9.0 H (6.4-8.2) gm/dl Albumin 3.4 (3.4-5.0) gm/dl Globulin 5.6 H (2.5-4.0) gm/dl Albumin/Globulin Ratio 0.6 L (0.9-2) Lipase 68 L (73-393) U/L Digoxin (0.8-2.0) ng/ml SARS-CoV-2 (PCR) (Negative) Influenza Type A (PCR) (Neg) Influenza Type B (PCR) (Neg) RSV (RT-PCR) (Neg) 05/11/21 Range/Units 17:25 WBC (4.8-10.8) K/uL RBC (4.2-5.4) M/uL Hgb (12.0-16.0) g/dL Hct (37-47) % MCV (80-100) fL MCH (25-34) pg MCHC (32-36) g/dL RDW Std Deviation (36.4-46.3) fL RDW Coeff of Logan (11.5-14.5) % Plt Count (130-400) K/uL MPV (7.4-10.4) fL Immature Gran % (Auto) % Neut % (Auto) % Lymph % (Auto) % Dixon % (Auto) % Eos % (Auto) % Baso % (Auto) % Neut # (Auto) (1.4-6.5) K/uL Lymph # (Auto) (1.2-3.4) K/uL Dixon # (Auto) (0.11-0.59) K/uL Eos # (Auto) (0-0.5) K/uL Baso # (Auto) (0-0.2) K/uL Immature Gran # (Auto) (0.00-0.02) K/uL APTT PTT Ratio Sodium (136-145) mmol/L Potassium (3.5-5.1) mmol/L Chloride (98-107) mmol/L Carbon Dioxide (21-32) mmol/L Anion Gap (3-11) BUN (7-18) mg/dl Creatinine (0.6-1.2) mg/dl Est Cr Clr Drug Dosing Est GFR ( Amer) ml/min Est GFR (Non-Af Amer) ml/min BUN/Creatinine Ratio (10-20) Glucose (70-99) mg/dl Estimat Average Glucose mg/dl Hemoglobin A1c (4.5-5.6) % Calcium (8.5-10.1) mg/dl Phosphorus (2.5-4.9) mg/dl Magnesium (1.8-2.4) mg/dl Total Bilirubin (0.2-1) mg/dl AST (15-37) U/L ALT (12-78) Alkaline Phosphatase (45-117) U/L Troponin I (0-0.045) ng/ml NT-Pro-B Natriuret Pep (0-900) pg/ml Total Protein (6.4-8.2) gm/dl Albumin (3.4-5.0) gm/dl Globulin (2.5-4.0) gm/dl Albumin/Globulin Ratio (0.9-2) Lipase (73-393) U/L Digoxin (0.8-2.0) ng/ml SARS-CoV-2 (PCR) NEGATIVE (Negative) Influenza Type A (PCR) Negative (Neg) Influenza Type B (PCR) Negative (Neg) RSV (RT-PCR) Negative (Neg)
[2021-05-12] MEDS ORDERED: DIGOXIN 125 MCG in SYRINGE 9.5 ML IV SCH (16:00)
[2021-05-12] MEDS: KETOROLAC TROMETHAMINE 15 MG/ML VIAL IV PRN ×2 (16:34→23:22)
--- NOTE | 2021-05-12 16:50 | Hospitalist Progress Note ---
Date of Service May 12, 2021 Assessment & Plan (1) Small bowel obstruction: Plan: 60 year old female past medical history of CHF w/ EF 20-25%, Atrial fibrillation s/p AICD on Xarelto, PE in 2013, COPD on 3L home O2, and prediabetes admitted for SBO w/ nausea and vomiting. * SBO: -per surgery: conservative care for now - NG tube, monitor output, LR fluids started at 100 cc/hr, NPO. -Discontinued IV Zosyn. -Continue to monitor for signs of fever, leukocytosis, metabolic acidosis, and peritonitis. * Atrial Fibrillation w/ RVR: -Hold metoprolol and start on Lopressor 5mg q4 PRN w/ hold parameters. -Ordered digoxin level before starting on IV digoxin. -Switch to IV heparin in the morning (from home Xarelto) CHF: -Echo from 09/2020 w/ EF 20-25%. -Holding metoprolol, starting Lopressor 5mg q4 PRN w/ hold parameters. -Will continue to monitor fluid status and vitals. HTN: -Same as above, hold metoprolol, hold furosemide; start Lopressor as stated above. -Patient on LR 100 cc/hr, continue to monitor BP. COPD: -Baseline of 3L O2 at home. Continue O2. -Duoneb QiD first 24 hours with [id number] PRN, continue PRN after. -Continue to monitor O2 saturation and breathing. TOMI: -Patient on CPAP at home. Respiratory therapy consulted for CPAP management while in hospital. Schizoaffective disorder: -Hold Seroquel, trazodone, hydroxyzine. GERD: -Hold omeprazole and started IV famotidine. Diabetes: -Hold metformin. Glucose 155 in ED, ordered A1c. Manage with insulin if needed. HLD: -Hold atorvastatin. Dispo: Med/Surg w/ Telemetry Code Status: Full Code DVT Prophylaxis: Heparin drip (2) COPD, severe: (3) Chronic systolic heart failure: Admission and Anticipated Discharge Date Admission Date: May 11, 2021 Supervising Physician Co-Signing Physician Notes I personally examined the patient and verified all eugene points of history and exam, discussed case, and agree with decision making with Dr Shields. Still with belly pain. NG tube in place. As is usually her preference, once I enter the room, she gets her sister on speaker phone to be able to hear the situation as well, given that the patient feels that she will understand what is going on with her as well. Updated patient/sister to the best my ability and answered all of their questions to their satisfaction. Vitals noted, in general she appears mildly uncomfortable but fortunately not severe distress. HEENT normocephalic atraumatic mucous membranes are moist NG tube in place without breakdown. Abdomen is moderately distended but no rigidity guarding rebound, hypoactive bowel sounds. Extremities with trace edema. No focal neuro deficits. Small bowel obstructionlikely adhesionalfortunately no surgical indications. Given that it was high-grade on imaging, appreciate surgical assistance/backup, but hopefully conservative care will be all that is needed. Continue NG drainage, pain/nausea control, IV fluids A. fibrate is controlled, anticoagulated Hypercalcemiaactually had a PTH checked on 01/28 which was normal, at the time her calcium was a normal 9.9. She has not run hypercalcemic before, and I strongly suspect this probably more of a dehydration/hemoconcentration phenomenon Continue conservative care/expectant management. Otherwise as above Subjective 60-year-old woman with a history of systolic heart failure (EF 20 to 25%), atrial fibrillation on Xarelto, pulmonary embolism in 2011, COPD on 3 L oxygen, prediabetes, as well as a history of multiple hernia repairs surgeries. She presented to the emergency room with a chief complaint of nausea, vomiting, and weakness. Imaging in the ED revealed findings consistent with small bowel obstruction. Surgery was consulted. Meanwhile the patient was admitted, started on lactated Ringer's, treated with a nasogastric tube, and placed n.p.o. This morning she appears to be an unreliable witness, either due to fatigue or discomfort though it is unclear. She reports her symptoms began with nausea and vomiting. She denies abdominal pain, or back pain. She further denies abdominal pain,. Constipation or diarrhea. She would like to know she is having any surgery today to manage her abdominal symptoms. Otherwise she has no acute complaints Review of Systems Review of Systems: All systems reviewed & are unremarkable except as noted in HPI & below Physical Exam Constitutional: WD/WN, vitals as above Respiratory: normal respiratory effort, lungs clear to auscultation Cardiovascular: RRR, no murmur, no edema Gastrointestinal (Abdomen): Inspection/Auscultation: + abdomen distended and normal bowel sounds Percussion/Palpation: + abdomen firm; no hepatomegaly and no fluid wave Results & Data Results & Data ([facility]) Vital Signs (Past 12 Hours) Vital Signs Temp Pulse Pulse Resp BP Pulse Ox 05/12/21 15:27 36.6 C 105 H 18 133/85 97 05/12/21 14:56 107 H 05/12/21 11:18 36.9 C 103 H 18 121/81 97 05/12/21 09:45 88 05/12/21 07:15 83 16 96 05/12/21 07:07 36.6 C 100 H 20 119/80 93 05/12/21 05:00 86 Resident Activity Tracking Resident Involvement: Resident Care Provided Care Provided: Adult Hospital Medicine
--- NOTE | 2021-05-12 17:34 | Billing Data ---
Date of Service May 12, 2021 Coding Level of Care Code 82965 Subseq Hosp Care Lvl 3
[2021-05-12 17:42] LABS: Partial Thromboplastin Ratio 1.1; Partial Thromboplastin Time 29.4 Seconds (21.0-31.0)
[2021-05-12] MEDS: FLUTICASONE PROPIONATE NA SPR 16 GM BTL SCH (22:35)
[2021-05-13 02:23] LABS: Basophils # (auto) 0.02 K/uL (0-0.2); Basophils % (auto) 0.2 %; Eosinophils # (auto) 0.13 K/uL (0-0.5); Eosinophils % (auto) 1.6 %; Hematocrit (blood only) 38.2 % (37-47); Hemoglobin 12.4 g/dL (12.0-16.0); Immature Granulocytes # (auto) 0.01 K/uL (0.00-0.02); Immature Granulocytes % (auto) 0.1 %; Lymphocytes # (auto) 1.74 K/uL (1.2-3.4); Lymphocytes % (auto) 21.2 %; Mean Corpuscular Hemoglobin 30.4 pg (25-34); Mean Corpuscular Hgb Conc 32.5 g/dL (32-36); Mean Corpuscular Volume 93.6 fL (80-100); Mean Platelet Volume 9.6 fL (7.4-10.4); Monocytes # (auto) 1.17 K/uL (0.11-0.59); Monocytes % (auto) 14.3 %; Neutrophils # (auto) 5.13 K/uL (1.4-6.5); Neutrophils % (auto) 62.6 %; Platelet Count 334 K/uL (130-400); RDW Coefficient of Variation 15.9 % (11.5-14.5); RDW Standard Deviation 54.6 fL (36.4-46.3); Red Blood Count 4.08 M/uL (4.2-5.4)
[2021-05-13 02:34] LABS: Partial Thromboplastin Time 27.6 Seconds (21.0-31.0)
[2021-05-13] MEDS: HEPARIN SODIUM/DEXTROSE 25,000 UNITS/500 ML BAG IV SCH ×3 (02:42→16:24)
[2021-05-13 02:56] LABS: Albumin Globulin Ratio 0.6 (0.9-2); Albumin Level 2.8 gm/dl (3.4-5.0); BUN Creatinine Ratio 15.6 (10-20); Bilirubin,Total 0.4 mg/dl (0.2-1); Calcium 9.5 mg/dl (8.5-10.1); Creatinine Clr Calc Pharmacy 59.3 ml/min; Est GFR (African American) 47.5 ml/min; Potassium 3.3 mmol/L (3.5-5.1); Total Protein 7.8 gm/dl (6.4-8.2)
[2021-05-13] MEDS ORDERED: HEPARIN IV BOLUS 4,500 UNITS in SYRINGE 0 ML IV ONE (03:00)
[2021-05-13] MEDS: ACETAMINOPHEN 1,000 MG/100 ML VIAL IV PRN ×2 (04:15→13:14)
--- NOTE | 2021-05-13 05:48 | Billing Data ---
Date of Service May 13, 2021 Coding Level of Care Code 94164 Initial Inpt Care Lvl 3
[2021-05-13] MEDS ORDERED: diphenhydrAMINE 50 MG/ML VIAL IV PRN (06:31)
--- NOTE | 2021-05-13 07:06 | Hospitalist Progress Note ---
Date of Service May 13, 2021 Assessment & Plan (1) Small bowel obstruction: (2) Anticoagulant long-term use: (3) Oxygen dependent: (4) Atrial fibrillation: (5) Nonischemic cardiomyopathy: (6) Anemia: Plan: Grazyna is a 60 y/o F with PMHx of hernia repair x2, tubal ligation, CHF (EF20- 25%), nonischemic cardiomyopathy, schizoaffective disorder, atrial fibrillation on Xarelto, HTN, and hyperlipidemia who is receiving conservative management for an SBO. #SBO -likely due to adhesions from surg history -Continues to be afebrile without leukocytosis and without abx -Conservative management improved her symptoms. -Surgery took out NG tube, she is tolerating it well -PO fluids as tolerated -Zofran 4mg PRN for nausea -continue to monitor electrolytes, vitals -Overnight BP at 98/64 noted #hypokalemia -Potassium down a bit 3.3; was 3.6 on 05/11 --> -repleted, KCl 40 meq ordered #normocytic anemia -Hgb down to 12.4 (05/13) from 14.3 (05/11), no signs of hemorrhage/bleeding -could be due to hemodilution, lab error -platelets/WBC stable #hypercalcemia -WNL today (05/13) at 9.5 which is down from 11.2 (05/11) -PTH and Ca from 01/28/21 were WNL, so the transient elevation on 05/11 was likely due to dehydration #AFIB -stable, mild tachycrdia to 115, was getting IV metoprolol -resume Xarelto PO - resume home metoprolol succinate 150 -05/11 EKG showed AFIB #COPD -baseline is 3L O2 at home -3L O2 nasal cannula currently #CHF -EF 20-25% -continue digoxin -history/physical exam does not support acute HF exacerbation -Cr bumped to 1.40, likely due to dehydration. Increasing her fluids to correct the Cr carries risk of CHF exacerbation, so will hold off for now #Schizoaffective disorder: -resume PO Seroquel, trazodone, hydroxyzine Diet: PO fluids as tolerated DVT prophylaxis: resume PO Xarelto Disposition: If she continues to tolerate PO fluids well without return of symptoms, can d/c home Admission and Anticipated Discharge Date Admission Date: May 11, 2021 Supervising Physician Co-Signing Physician Notes I personally examined the patient and verified all eugene points of history and exam, discussed case, and agree with decision making with Endy Clarke MS2 Feeling better. Belly pain doing better. Overall seems to be improving. Has had some flatus. NG tube pulled by surgery probably an hour prior to my seeing her, no worsening of abdominal pain or nausea since the NG tube is been removed. Vitals noted, in general she is awake and alert pleasant no distress. HEENT normocephalic atraumatic mucous membranes moist. Abdomen is soft mildly distended nontender no masses organomegaly, no guarding rebound or rigidity. Neuro without focal deficits. Small bowel obstructionimproving, clear liquid diet slowly advance as tolerated A. fib, CHFrate is controlled, anticoagulated, has been on some maintenance IV fluids and no signs of failure, actually creatinine bumped a little suggesting she is slightly on the dry side, this is okay given her tenuous fluid balance with her EF of 20%. With anticipated to improve his p.o. intake Hypercalcemialikely was from volume contraction DVT prophylaxisanticoagulated Dispositionnow that she is tolerating p.o. and p.o. medicines, safe/stable for medical since we no longer need to do IV beta-blockers, hopefully home soon Subjective Grazyna's symptoms of nausea and abdominal pain are improving. No new episodes of vomiting. She passed gas x2 overnight, no bowel movements yet. She reports a cough and runny nose but no fever. Fully COVID vaxxed including booster. No flu shot this year. She isn't aware of being around with anyone with a confirmed COVID case. Her home care nurse did have cold symptoms in the recent past but was temporarily dismissed from caring for Grazyna while she was symptomatic. covid negative on admission. She reported difficulty sleeping last night/having bad dreams. When asked about anemia, she endorsed a history of "iron-poor blood" but does not recall taking any medications for it. Review of Systems Review of Systems: All systems reviewed & are unremarkable except as noted in Subjective Physical Exam Physical Exam: Grazyna was lying in her bed, NAD. Did have runny nose during exam Respiratory: normal respiratory effort, lungs clear to auscultation no rales/rhonchi/wheezing Cardiovascular: Rate/Rhythm: + irregularly irregular Heart Sounds: normal S1 and normal S2 No edema of the lower extremities Gastrointestinal (Abdomen): +abdomen is taut Normal bowel sounds present in RLQ/RUQ Tenderness to palpation in all quadrants, no rebound; +voluntary guarding only in LUQ, otherwise no guarding Results & Data Results & Data ([facility]) Vital Signs (Past 12 Hours) Vital Signs Temp Pulse Pulse Resp BP Pulse Ox 05/13/21 03:49 36.4 C L 103 H 18 98/64 L 96 05/13/21 00:32 98 H 05/12/21 23:18 36.6 C 89 18 112/85 95 05/12/21 19:26 36.8 C 94 H 20 108/72 95 Laboratory Results Abnormal lab results 05/12/21 05/12/21 05/12/21 Range/Units 09:28 09:28 09:28 RBC (4.2-5.4) M/uL RDW Std Deviation 53.4 H (36.4-46.3) fL RDW Coeff of Logan 15.9 H (11.5-14.5) % Lymph # (Auto) 1.09 L (1.2-3.4) K/uL Wilcox # (Auto) 1.31 H (0.11-0.59) K/uL Potassium (3.5-5.1) mmol/L Chloride 93 L (98-107) mmol/L Carbon Dioxide 36 H (21-32) mmol/L BUN (7-18) mg/dl Creatinine 1.30 H (0.6-1.2) mg/dl Glucose 119 H (70-99) mg/dl Hemoglobin A1c 6.4 H (4.5-5.6) % Calcium 10.6 H (8.5-10.1) mg/dl AST 14 L (15-37) U/L Total Protein 8.5 H (6.4-8.2) gm/dl Albumin 3.1 L (3.4-5.0) gm/dl Globulin 5.4 H (2.5-4.0) gm/dl Albumin/Globulin Ratio 0.6 L (0.9-2) 05/13/21 05/13/21 Range/Units 02:09 02:09 RBC 4.08 L (4.2-5.4) M/uL RDW Std Deviation 54.6 H (36.4-46.3) fL RDW Coeff of Logan 15.9 H (11.5-14.5) % Lymph # (Auto) (1.2-3.4) K/uL Wilcox # (Auto) 1.17 H (0.11-0.59) K/uL Potassium 3.3 L D (3.5-5.1) mmol/L Chloride (98-107) mmol/L Carbon Dioxide 35 H (21-32) mmol/L BUN 22 H (7-18) mg/dl Creatinine 1.40 H (0.6-1.2) mg/dl Glucose (70-99) mg/dl Hemoglobin A1c (4.5-5.6) % Calcium (8.5-10.1) mg/dl AST 13 L (15-37) U/L Total Protein (6.4-8.2) gm/dl Albumin 2.8 L (3.4-5.0) gm/dl Globulin 5.0 H (2.5-4.0) gm/dl Albumin/Globulin Ratio 0.6 L (0.9-2)
[2021-05-13] MEDS: UMECLIDINIUM/VILANTEROL 62.5/25MCG 7 PUFFS/INHALER INH SCH (08:20)
[2021-05-13] MEDS: FLUTICASONE PROPIONATE NA SPR 16 GM BTL SCH ×2 (08:20→20:19)
[2021-05-13] MEDS: SODIUM CHLORIDE 0.9% 1000ML 1,000 ML IV SCH ×2 (08:22→19:17)
[2021-05-13] MEDS: FAMOTIDINE 20 MG in SYRINGE 3 ML IV SCH ×2 (08:22→22:18)
[2021-05-13 09:44] LABS: Partial Thromboplastin Ratio 2.3
[2021-05-13 09:45] LABS: Partial Thromboplastin Time 60.1 Seconds (21.0-31.0)
--- NOTE | 2021-05-13 09:49 | Surgery Progress Note ---
Date of Service May 13, 2021 Assessment & Plan (1) Small bowel obstruction: Plan: afebrile, no leukocytosis NGT with 600 cc last shift, none in canister now abdomen soft, less distended today +flatus Plan: Remove NGT start clear liquids, advised to go slow increase activity --> OOB to chair and ambulate to increase GI motility Recommend to replace potassium Dr. Valentin has seen and examined pt, agrees with above. Admission and Anticipated Discharge Date Admission Date: May 11, 2021 Subjective feeling much better today still having rib pain but no abdominal pain feels less bloated today no nausea or vomiting passed gas throughout the night, no bowel movement Physical Exam Constitutional: WD/WN, vitals as above no acute distress and not ill appearing Respiratory: normal respiratory effort; no respiratory distress, no labored breathing and no retractions Gastrointestinal (Abdomen): Inspection/Auscultation: abdomen normal to inspection, + abdomen distended (mild, improved), + abdominal surgical scar (midline laparotomy scar ) and + hypoactive bowel sounds; + abnormal bowel sounds Percussion/Palpation: abdomen soft; abdomen nontender, no guarding and abdomen not rigid NGT with no output in canister at bedside , on Low intermittent suction Skin: no rashes, warm and dry Psychiatric: A+Ox3, euthymic affect Results & Data ([facility]) Vital Signs (Past 12 Hours) Vital Signs Temp Pulse Pulse Resp BP Pulse Ox 05/13/21 07:55 37 C 115 H 18 117/66 92 05/13/21 03:49 36.4 C L 103 H 18 98/64 L 96 05/13/21 00:32 98 H 05/12/21 23:18 36.6 C 89 18 112/85 95 Laboratory Results 05/13/21 05/13/21 05/13/21 Range/Units 09:08 02:09 02:09 WBC (4.8-10.8) K/uL RBC (4.2-5.4) M/uL Hgb (12.0-16.0) g/dL Hct (37-47) % MCV (80-100) fL MCH (25-34) pg MCHC (32-36) g/dL RDW Std Deviation (36.4-46.3) fL RDW Coeff of Logan (11.5-14.5) % Plt Count (130-400) K/uL MPV (7.4-10.4) fL Immature Gran % (Auto) % Neut % (Auto) % Lymph % (Auto) % [place] % (Auto) % Eos % (Auto) % Baso % (Auto) % Neut # (Auto) (1.4-6.5) K/uL Lymph # (Auto) (1.2-3.4) K/uL [place] # (Auto) (0.11-0.59) K/uL Eos # (Auto) (0-0.5) K/uL Baso # (Auto) (0-0.2) K/uL Immature Gran # (Auto) (0.00-0.02) K/uL APTT 60.1 H* 27.6 (21.0-31.0) Seconds PTT Ratio 2.3 1.0 Sodium 140 (136-145) mmol/L Potassium 3.3 L D (3.5-5.1) mmol/L Chloride 100 (98-107) mmol/L Carbon Dioxide 35 H (21-32) mmol/L Anion Gap 5.0 (3-11) BUN 22 H (7-18) mg/dl Creatinine 1.40 H (0.6-1.2) mg/dl Est Cr Clr Drug Dosing 59.3 ml/min Est GFR ( Amer) 47.5 ml/min Est GFR (Non-Af Amer) 41.0 ml/min BUN/Creatinine Ratio 15.6 (10-20) Glucose 89 (70-99) mg/dl Estimat Average Glucose mg/dl Hemoglobin A1c (4.5-5.6) % Calcium 9.5 (8.5-10.1) mg/dl Total Bilirubin 0.4 (0.2-1) mg/dl AST 13 L (15-37) U/L ALT 25 (12-78) Alkaline Phosphatase 110 (45-117) U/L Total Protein 7.8 (6.4-8.2) gm/dl Albumin 2.8 L (3.4-5.0) gm/dl Globulin 5.0 H (2.5-4.0) gm/dl Albumin/Globulin Ratio 0.6 L (0.9-2) 05/13/21 05/12/21 05/12/21 Range/Units 02:09 16:49 09:28 WBC 8.20 (4.8-10.8) K/uL RBC 4.08 L (4.2-5.4) M/uL Hgb 12.4 (12.0-16.0) g/dL Hct 38.2 (37-47) % MCV 93.6 (80-100) fL MCH 30.4 (25-34) pg MCHC 32.5 (32-36) g/dL RDW Std Deviation 54.6 H (36.4-46.3) fL RDW Coeff of Logan 15.9 H (11.5-14.5) % Plt Count 334 (130-400) K/uL MPV 9.6 (7.4-10.4) fL Immature Gran % (Auto) 0.1 % Neut % (Auto) 62.6 % Lymph % (Auto) 21.2 % [place] % (Auto) 14.3 % Eos % (Auto) 1.6 % Baso % (Auto) 0.2 % Neut # (Auto) 5.13 (1.4-6.5) K/uL Lymph # (Auto) 1.74 (1.2-3.4) K/uL [place] # (Auto) 1.17 H (0.11-0.59) K/uL Eos # (Auto) 0.13 (0-0.5) K/uL Baso # (Auto) 0.02 (0-0.2) K/uL Immature Gran # (Auto) 0.01 (0.00-0.02) K/uL APTT 29.4 30.3 (21.0-31.0) Seconds PTT Ratio 1.1 1.2 Sodium (136-145) mmol/L Potassium (3.5-5.1) mmol/L Chloride (98-107) mmol/L Carbon Dioxide (21-32) mmol/L Anion Gap (3-11) BUN (7-18) mg/dl Creatinine (0.6-1.2) mg/dl Est Cr Clr Drug Dosing ml/min Est GFR ( Amer) ml/min Est GFR (Non-Af Amer) ml/min BUN/Creatinine Ratio (10-20) Glucose (70-99) mg/dl Estimat Average Glucose mg/dl Hemoglobin A1c (4.5-5.6) % Calcium (8.5-10.1) mg/dl Total Bilirubin (0.2-1) mg/dl AST (15-37) U/L ALT (12-78) Alkaline Phosphatase (45-117) U/L Total Protein (6.4-8.2) gm/dl Albumin (3.4-5.0) gm/dl Globulin (2.5-4.0) gm/dl Albumin/Globulin Ratio (0.9-2) 05/12/21 05/12/21 05/12/21 Range/Units 09:28 09:28 09:28 WBC (4.8-10.8) K/uL RBC (4.2-5.4) M/uL Hgb (12.0-16.0) g/dL Hct (37-47) % MCV (80-100) fL MCH (25-34) pg MCHC (32-36) g/dL RDW Std Deviation (36.4-46.3) fL RDW Coeff of Logan (11.5-14.5) % Plt Count (130-400) K/uL MPV (7.4-10.4) fL Immature Gran % (Auto) 0.3 % Neut % (Auto) 64.4 % Lymph % (Auto) 15.2 % [place] % (Auto) 18.3 % Eos % (Auto) 1.7 % Baso % (Auto) 0.1 % Neut # (Auto) 4.60 (1.4-6.5) K/uL Lymph # (Auto) 1.09 L (1.2-3.4) K/uL [place] # (Auto) 1.31 H (0.11-0.59) K/uL Eos # (Auto) 0.12 (0-0.5) K/uL Baso # (Auto) 0.01 (0-0.2) K/uL Immature Gran # (Auto) 0.02 (0.00-0.02) K/uL APTT (21.0-31.0) Seconds PTT Ratio Sodium 136 (136-145) mmol/L Potassium 3.9 (3.5-5.1) mmol/L Chloride 93 L (98-107) mmol/L Carbon Dioxide 36 H (21-32) mmol/L Anion Gap 8.0 (3-11) BUN 15 (7-18) mg/dl Creatinine 1.30 H (0.6-1.2) mg/dl Est Cr Clr Drug Dosing 63.8 ml/min Est GFR ( Amer) 52.0 ml/min Est GFR (Non-Af Amer) 44.9 ml/min BUN/Creatinine Ratio 11.7 (10-20) Glucose 119 H (70-99) mg/dl Estimat Average Glucose 137 mg/dl Hemoglobin A1c 6.4 H (4.5-5.6) % Calcium 10.6 H (8.5-10.1) mg/dl Total Bilirubin 0.7 (0.2-1) mg/dl AST 14 L (15-37) U/L ALT 26 (12-78) Alkaline Phosphatase 116 (45-117) U/L Total Protein 8.5 H (6.4-8.2) gm/dl Albumin 3.1 L (3.4-5.0) gm/dl Globulin 5.4 H (2.5-4.0) gm/dl Albumin/Globulin Ratio 0.6 L (0.9-2)
[2021-05-13] MEDS: KETOROLAC TROMETHAMINE 15 MG/ML VIAL IV PRN ×2 (10:05→16:55)
[2021-05-13 11:29] LABS: Appearance Urine Cloudy (Clear); Bacteria Urine Automated Negative (Negative); Blood Urine Negative (Negative); Color Urine Dark Yellow; Epithelial Cell Urine Auto >30 /lpf (0-5); Glucose Urine UA Negative (Negative); Ketones Urine Trace (Negative); Leukocyte Esterase Urine Negative (Negative); Nitrite Urine Negative (Negative); Protein Urine Trace (Negative); RBC Urine Automated 0-4 /hpf (0-4); Specific Gravity Urine > 1.045 (1.000-1.030); Urobilinogen Urine Negative (Negative)
[2021-05-13 11:31] LABS: Bilirubin Urine 1+ (Negative)
[2021-05-13 11:37] LABS: Uric Acid Crystals Urine Present (None Prsent)
[2021-05-13] MEDS: DIGOXIN 0.125 MG TAB PO SCH (16:45)
[2021-05-13] MEDS: FUROSEMIDE 80 MG TAB PO SCH (16:46)
[2021-05-13] MEDS: ONDANSETRON INJ 2 MG/ML 2 ML VIAL IV PRN (16:55)
--- NOTE | 2021-05-13 17:19 | Billing Data ---
Date of Service May 13, 2021 Coding Level of Care Code 20583 Subseq Hosp Care Lvl 3
[2021-05-13] MEDS: hydrOXYzine HCl 25 MG TAB PO PRN (19:17)
[2021-05-13] MEDS: QUEtiapine FUMARATE 200 MG TAB PO SCH (20:19)
[2021-05-13] MEDS: VALSARTAN/SACUBITRIL 26/24MG TAB PO SCH (20:20)
[2021-05-14] MEDS: ONDANSETRON INJ 2 MG/ML 2 ML VIAL IV PRN (02:37)
--- NOTE | 2021-05-14 07:53 | XRay Report ---
XR chest 1V portable HISTORY: 60 years-old Female confirm NG status post placement of an enteric tube COMPARISON: CT abdomen and pelvis 05/11/2021, chest radiograph 05/11/2021 TECHNIQUE: Portable AP view of the chest FINDINGS: The cardiac silhouette is enlarged. Left subclavian pacer/AICD. An enteric tube has been placed with distal tip projected along the diaphragm with distal tip outside the [id number]. Cardiomegaly with out overt pulmonary edema. Trace left pleural effusion. Mild bibasilar opacities. Degenerative change s of the shoulders and spine. IMPRESSION: 1. Cardiomegaly without overt pulmonary edema. 2. Bibasilar opacities redemonstrated suggestive of probable atelectasis. 3. Status post placement of an enteric tube with distal tip projected inferior to the diaphragm outsi de the [id number]. ACT 112: Negative or not required by law. The above report was generated using voice recognition software. It may contain grammatical, syntax o r spelling errors. Electronically signed by: Jae Ortega M.D. 05/14/2021 7:52 AM
--- NOTE | 2021-05-14 09:00 | Surgery Progress Note ---
Date of Service May 14, 2021 Assessment & Plan (1) Small bowel obstruction: Plan: afebrile reinsertion of NGT early this am with 2 liters of output, 50 cc in canister now Plan: am labs cbc, bmp, crp needs to get oob to chair and ambulate to increase GI motility discussed with medicine team resident, planning to change oral meds to IV since NGT reinserted Given her multiple comorbidities would want to avoid surgery if at all possible. Continue conservative measures: NPO for bowel rest, NGT to LIS, pain management as needed, try to avoid narcotics, increase activity/ambulation Will discussed [facility] Dr. roberts for further recommendations/plan. Rounded with Dr. Roberts at 10:00 am: Mild leukocytosis of 12K 400 cc in NGT canister abdomen soft but distended, tender, no peritonitis, rigidity KUB today and tomorrow to compare continue conservative measures would recommend cardiology consult for preoperative eval in case of need for surgical intervention encouraged patient to get out of bed and ambulate to increase GI motility Dr. Roberts was present during my examination and agrees with above Admission and Anticipated Discharge Date Admission Date: May 11, 2021 Subjective patient sleeping upon entering room, tired, wants to sleep, asked if I could come back later to examine her having abdominal pain passing gas but no bowel movement Discussed with Nurse, She had bowel movement late last night and then had vomiting and abdominal distention, NGT placed around 5:30 am and has had 2 liters of output since placement. Physical Exam Constitutional: WD/WN, vitals as above + obese; no acute distress and not ill appearing Gastrointestinal (Abdomen): Inspection/Auscultation: + abdomen distended and + abdominal surgical scar (midline laparotomy scar) Percussion/Palpation: + abdomen tender (uppder abdomen) and abdomen soft; no guarding and abdomen not rigid NGT with dark brown/bilious output, 400 cc in canister Skin: no rashes, warm and dry Psychiatric: Orientation: alert, oriented to person and cooperative Eye Contact: + poor eye contact Results & Data ([facility]) Vital Signs (Past 12 Hours) Vital Signs Temp Pulse Resp BP Pulse Ox 05/14/21 07:13 36.4 C L 82 18 107/69 95 05/13/21 23:08 37.2 C 119 H 20 112/80 95 05/13/21 22:59 36.9 C 82 20 96/62 L 98 Laboratory Results 05/13/21 05/13/21 Range/Units Unknown 09:08 APTT 60.1 H* (21.0-31.0) Seconds PTT Ratio 2.3 Urine Color Dark Yellow Urine Appearance Cloudy A (Clear) Urine pH 5.0 (4.5-7.5) Ur Specific [place] > 1.045 H (1.000-1.030) Urine Protein Trace H (Negative) Urine Glucose (UA) Negative (Negative) Urine Ketones Trace H (Negative) Urine Blood Negative (Negative) Urine Nitrite Negative (Negative) Urine Bilirubin 1+ H (Negative) Urine Urobilinogen Negative (Negative) Ur Leukocyte Esterase Negative (Negative) Urine WBC (Auto) 1-5 (0-5) /hpf Urine RBC (Auto) 0-4 (0-4) /hpf U Hyaline Cast (Auto) 1-5 (0-5) /lpf U Epithel Cells (Auto) >30 H (0-5) /lpf Urine Bacteria (Auto) Negative (Negative) Uric Acid Crystals Present A (None Prsent) Urine Yeast Not Reportable
[2021-05-14] MEDS: QUEtiapine FUMARATE 100 MG TABLET PO SCH (09:45)
[2021-05-14] MEDS: VALSARTAN/SACUBITRIL 26/24MG TAB PO SCH ×2 (09:45→21:23)
[2021-05-14] MEDS: METOPROLOL SUCC 50MG EXT REL TAB PO SCH (09:46)
[2021-05-14] MEDS: FUROSEMIDE 80 MG TAB PO SCH ×2 (09:46→16:17)
[2021-05-14] MEDS: FAMOTIDINE 20 MG in SYRINGE 3 ML IV SCH ×3 (09:46→21:30)
[2021-05-14] MEDS: ATORVASTATIN 10 MG TAB PO SCH (09:46)
--- NOTE | 2021-05-14 09:47 | Hospitalist Progress Note ---
Date of Service May 14, 2021 Assessment & Plan (1) Small bowel obstruction: (2) Atrial fibrillation: (3) Nonischemic cardiomyopathy: (4) COPD, severe: (5) GERD (gastroesophageal reflux disease): Plan: #SBO -NG tube re-inserted around 5:30am today 05/14; surg OK'ed med delivery per tube -output of 2L bilious fluid -Afebrile -resume conservative management: monitor fluids, NPO -Both the CX/KUB today did not catch the NG tube in their field of view, but another KUB/abdomen has been ordered for tomorrow morning (05/15) by surgery #hypokalemia -Potassium 3.4 today -Continue KCl 40 meq #normocytic anemia -Her Hgb did decrease from baseline in hospital stay but no signs of hemorrhage/bleeding currently -could be due to hemodilution, lab error -platelets stable #AFIB -stable -resume metoprolol and rivaroxaban #COPD -baseline is 3L O2 at home -3L O2 nasal cannula currently #CHF -EF 20-25% -continue digoxin, entresto -history/physical exam does not support acute HF exacerbation -Cr 1.13 #Schizoaffective disorder: -continue Seroquel, trazodone, hydroxyzine Diet: NPO DVT prophylaxis: resume rivaroxaban Disposition: med surg Admission and Anticipated Discharge Date Admission Date: May 11, 2021 Supervising Physician Co-Signing Physician Notes I personally examined the patient and verified all eugene points of history and exam, discussed case, and agree with decision making with Endy Clarke MS2 Due to wound, NG tube had to be replaced. Now abdominal pain doing a little bit better again, and has had several bowel movements, both loose and formed, but at the same time she is still having rather significant NG tube output. Vitals noted, in general she is awake and alert pleasant no distress. HEENT normocephalic atraumatic mucous membranes moist. Abdomen is soft mildly distended nontender no masses organomegaly, no guarding rebound or rigidity. Neuro without focal deficits. Small bowel obstructionconcerning given that it was high-grade radiographically on admission, and she was showing improvement which worsened necessitating replacement of NG tube. At the same time now her exam is relatively reassuring and she is having some bowel movements, but conversely still with high output. Continue to follow closely, continue NG drainage for now. Resume maintenance fluids albeit at a fairly slow rate because of her CHF. A. fib, CHF (chronic systolic and currently compensated) rate controlled, anticoagulated, fluid balance looks to be euvolemic today. Hypercalcemialikely was from volume contraction DVT prophylaxisanticoagulated Dispositioncontinue to follow closely, today's situation appears to represent a step back, but as the day progressed she is showing more of a mixed picture, she still may need to go to the OR, but expectant management and serial exams are still warranted at this time. Subjective Grazyna shared she vomited multiple times throughout the night after her NG tube was removed and she resumed PO fluids. Another NG tube was subsequently placed. Yesterday she had an episode of diarrhea, and has been passing gas. Today her abdominal pain has improved. Her runny nose improved and she does not have cough, fevers, or chills. Review of Systems Review of Systems: All systems reviewed & are unremarkable except as noted in Subjective Physical Exam Physical Exam: Appearance: uncomfortable, trying to sleep, no acute distress NG tube placed w/ suction on, only a small amount of bilious fluid was seen in canister since it was recently replaced Respiratory: normal respiratory effort, lungs clear to auscultation Cardiovascular: RRR, no murmur, no edema Gastrointestinal (Abdomen): Bowel sounds present in all quadrants Abdomen was soft Palpation to abdomen did not elicit tenderness/guarding/rebound Lymphatic: No UE/LE edema Results & Data Results & Data ([facility]) Vital Signs (Past 12 Hours) Vital Signs Temp Pulse Resp BP Pulse Ox 05/14/21 07:13 36.4 C L 82 18 107/69 95 05/13/21 23:08 37.2 C 119 H 20 112/80 95 05/13/21 22:59 36.9 C 82 20 96/62 L 98 Laboratory Results 05/13/21 05/13/21 Unknown 09:08 APTT 60.1 H* PTT Ratio 2.3 Urine Color Dark Yellow Urine Appearance Cloudy A Urine pH 5.0 Ur Specific Mccune > 1.045 H Urine Protein Trace H Urine Glucose (UA) Negative Urine Ketones Trace H Urine Blood Negative Urine Nitrite Negative Urine Bilirubin 1+ H Urine Urobilinogen Negative Ur Leukocyte Esterase Negative Urine WBC (Auto) 1-5 Urine RBC (Auto) 0-4 U Hyaline Cast (Auto) 1-5 U Epithel Cells (Auto) >30 H Urine Bacteria (Auto) Negative Uric Acid Crystals Present A Urine Yeast Not Reportable Laboratory Results WBC 8.20 K/uL (4.8-10.8) 05/13/21 02:09 RBC 4.08 M/uL (4.2-5.4) L 05/13/21 02:09 Hgb 12.4 g/dL (12.0-16.0) 05/13/21 02:09 Hct 38.2 % (37-47) 05/13/21 02:09 MCV 93.6 fL (80-100) 05/13/21 02:09 MCH 30.4 pg (25-34) 05/13/21 02:09 MCHC 32.5 g/dL (32-36) 05/13/21 02:09 RDW Std Deviation 54.6 fL (36.4-46.3) H 05/13/21 02:09 RDW Coeff of Logan 15.9 % (11.5-14.5) H 05/13/21 02:09 Plt Count 334 K/uL (130-400) 05/13/21 02:09 MPV 9.6 fL (7.4-10.4) 05/13/21 02:09 Immature Gran % (Auto) 0.1 % 05/13/21 02:09 Neut % (Auto) 62.6 % 05/13/21 02:09 Lymph % (Auto) 21.2 % 05/13/21 02:09 Coffee % (Auto) 14.3 % 05/13/21 02:09 Eos % (Auto) 1.6 % 05/13/21 02:09 Baso % (Auto) 0.2 % 05/13/21 02:09 Neut # (Auto) 5.13 K/uL (1.4-6.5) 05/13/21 02:09 Lymph # (Auto) 1.74 K/uL (1.2-3.4) 05/13/21 02:09 Coffee # (Auto) 1.17 K/uL (0.11-0.59) H 05/13/21 02:09 Eos # (Auto) 0.13 K/uL (0-0.5) 05/13/21 02:09 Baso # (Auto) 0.02 K/uL (0-0.2) 05/13/21 02:09 Immature Gran # (Auto) 0.01 K/uL (0.00-0.02) 05/13/21 02:09 APTT 60.1 Seconds (21.0-31.0) H* 05/13/21 09:08 PTT Ratio 2.3 05/13/21 09:08 Sodium 140 mmol/L (136-145) 05/13/21 02:09 Potassium 3.3 mmol/L (3.5-5.1) L D 05/13/21 02:09 Chloride 100 mmol/L (98-107) 05/13/21 02:09 Carbon Dioxide 35 mmol/L (21-32) H 05/13/21 02:09 Anion Gap 5.0 (3-11) 05/13/21 02:09 BUN 22 mg/dl (7-18) H 05/13/21 02:09 Creatinine 1.40 mg/dl (0.6-1.2) H 05/13/21 02:09 Est Cr Clr Drug Dosing 59.3 ml/min 05/13/21 02:09 Est GFR ( Amer) 47.5 ml/min 05/13/21 02:09 Est GFR (Non-Af Amer) 41.0 ml/min 05/13/21 02:09 BUN/Creatinine Ratio 15.6 (10-20) 05/13/21 02:09 Glucose 89 mg/dl (70-99) 05/13/21 02:09 Estimat Average Glucose 137 mg/dl 05/12/21 09:28 Hemoglobin A1c 6.4 % (4.5-5.6) H 05/12/21 09:28 Calcium 9.5 mg/dl (8.5-10.1) 05/13/21 02:09 Phosphorus 5.4 mg/dl (2.5-4.9) H 05/11/21 17:45 Magnesium 2.4 mg/dl (1.8-2.4) 05/11/21 17:45 Total Bilirubin 0.4 mg/dl (0.2-1) 05/13/21 02:09 AST 13 U/L (15-37) L 05/13/21 02:09 ALT 25 (12-78) 05/13/21 02:09 Alkaline Phosphatase 110 U/L (45-117) 05/13/21 02:09 Troponin I < 0.015 ng/ml (0-0.045) 05/11/21 17:45 NT-Pro-B Natriuret Pep 1885 pg/ml (0-900) H 05/11/21 17:45 Total Protein 7.8 gm/dl (6.4-8.2) 05/13/21 02:09 Albumin 2.8 gm/dl (3.4-5.0) L 05/13/21 02:09 Globulin 5.0 gm/dl (2.5-4.0) H 05/13/21 02:09 Albumin/Globulin Ratio 0.6 (0.9-2) L 05/13/21 02:09 Lipase 68 U/L (73-393) L 05/11/21 17:45 Urine Color Dark Yellow 05/13/21 Unknown Urine Appearance Cloudy (Clear) A 05/13/21 Unknown Urine pH 5.0 (4.5-7.5) 05/13/21 Unknown Ur Specific Mccune > 1.045 (1.000-1.030) H 05/13/21 Unknown Urine Protein Trace (Negative) H 05/13/21 Unknown Urine Glucose (UA) Negative (Negative) 05/13/21 Unknown Urine Ketones Trace (Negative) H 05/13/21 Unknown Urine Blood Negative (Negative) 05/13/21 Unknown Urine Nitrite Negative (Negative) 05/13/21 Unknown Urine Bilirubin 1+ (Negative) H 05/13/21 Unknown Urine Urobilinogen Negative (Negative) 05/13/21 Unknown Ur Leukocyte Esterase Negative (Negative) 05/13/21 Unknown Urine WBC (Auto) 1-5 /hpf (0-5) 05/13/21 Unknown Urine RBC (Auto) 0-4 /hpf (0-4) 05/13/21 Unknown U Hyaline Cast (Auto) 1-5 /lpf (0-5) 05/13/21 Unknown U Epithel Cells (Auto) >30 /lpf (0-5) H 05/13/21 Unknown Urine Bacteria (Auto) Negative (Negative) 05/13/21 Unknown Uric Acid Crystals Present (None Prsent) A 05/13/21 Unknown Urine Yeast Not Reportable 05/13/21 Unknown Digoxin 0.9 ng/ml (0.8-2.0) 05/11/21 23:39 SARS-CoV-2 (PCR) NEGATIVE (Negative) 05/11/21 17:25 Influenza Type A (PCR) Negative (Neg) 05/11/21 17:25 Influenza Type B (PCR) Negative (Neg) 05/11/21 17:25 RSV (RT-PCR) Negative (Neg) 05/11/21 17:25 Impressions KUB X-Ray 05/11/21 19:13 KUB HISTORY: Acute generalized abdominal pain with nausea, vomiting and diarrhea abd pain, n/v/d COMPARISON: KUB 09/29/2020 FINDINGS: There are several dilated air-filled loops of small bowel throughout the abdomen measuring up to 4.4 cm transversely. No renal calculi. No ureteral calculi. No pneumoperitoneum or pneumatosis. No fracture. Cardiomegaly with pacer/AICD. IMPRESSION: Dilated air-filled loops of small bowel within the central abdomen are suspicious for a small bowel obstruction. ACT 112: Negative or not required by law. The above report was generated using voice recognition software. It may contain grammatical, syntax or spelling errors. Electronically signed by: Jae Ortega M.D. 05/11/2021 7:54 PM Abdomen/Pelvis CT 05/11/21 20:[address] WITH IV CONTRAST CT DOSE: 1736.06 mGy.cm HISTORY: Acute generalized abdominal pain with nausea, vomiting and diarrhea n/v/d, ?SBO on KUB TECHNIQUE: Multiaxial CT images of the abdomen and pelvis were performed following the IV administration of 91 cc of Optiray, A dose lowering technique was utilized adhering to the principles of ALARA. COMPARISON STUDY: KUB of same day, CT abdomen and pelvis 09/29/2020 FINDINGS: Marked cardiomegaly with partially imaged pacer leads. Small pericardial effusion. Trace pleural effusions with mild bibasilar linear consolidation suggestive of probable atelectasis. No pneumatosis or pneumoperitoneum identified. Unremarkable spleen, pancreas and left adrenal gland. Indeterminate 1.5 cm right adrenal gland lesion is unchanged. Contracted gallbladder. Suggested hepatic steatosis. Patent portal vein. Unremarkable kidneys. No hydronephrosis. Mild urinary bladder wall thickening with partial distention. Aorta and IVC are unremarkable. Decreased size of the previously described left iliac chain lymph nodes which are now within normal limits in size measuring up to 7 mm. The esophagus is fluid-filled and distended. Layering hyperdense material within the stomach and proximal duodenum may be medicinal. The stomach is fluid-filled and dilated as are numerous loops of small bowel in the abdomen and upper pelvis. Transition point is noted within the left lower quadrant with decompressed small bowel loops noted distally. No obstructing lesion. Mild interloop edema without bowel wall thickening. Trace abdominal pelvic ascites. Colonic diverticulosis. Normal appendix.Unremarkable soft tissues. Tiny fat filled periumbilical hernia. Degenerative changes of the spine, pelvis and hips. Transitional lumbosacral anatomy. IMPRESSION: 1. High-grade small bowel obstruction with transition point present within the abdominal left lower quadrant, presumably from small bowel adhesions. Mild associated interloop edema with trace ascites. 2. Colonic diverticulosis. 3. Normal appendix. 4. Trace pleural and pericardial effusions. 5. Cardiomegaly. 6. Additional findings as above. ACT 112: Negative or not required by law. The above report was generated using voice recognition software. It may contain grammatical, syntax or spelling errors. Electronically signed by: Jae Ortega M.D. 05/11/2021 9:06 PM Chest X-Ray 05/14/21 06:18 XR chest 1V portable HISTORY: 60 years-old Female confirm NG status post placement of an enteric tube COMPARISON: CT abdomen and pelvis 05/11/2021, chest radiograph 05/11/2021 TECHNIQUE: Portable AP view of the chest FINDINGS: The cardiac silhouette is enlarged. Left subclavian pacer/AICD. An enteric tube has been placed with distal tip projected along the diaphragm with distal tip outside the [id number]. Cardiomegaly without overt pulmonary edema. Trace left pleural effusion. Mild bibasilar opacities. Degenerative changes of the shoulders and spine. IMPRESSION: 1. Cardiomegaly without overt pulmonary edema. 2. Bibasilar opacities redemonstrated suggestive of probable atelectasis. 3. Status post placement of an enteric tube with distal tip projected inferior to the diaphragm outside the [id number]. ACT 112: Negative or not required by law. The above report was generated using voice recognition software. It may contain grammatical, syntax or spelling errors. Electronically signed by: Jae Ortega M.D. 05/14/2021 7:52 AM (1) GERD (gastroesophageal reflux disease) Esophagitis presence: esophagitis presence not specified Qualified Code(s): K21.9 - Gastro-esophageal reflux disease without esophagitis
[2021-05-14] MEDS: FLUTICASONE PROPIONATE NA SPR 16 GM BTL SCH ×2 (09:49→21:23)
[2021-05-14] MEDS: RIVAROXABAN 20 MG TAB PO SCH (09:50)
[2021-05-14] MEDS: UMECLIDINIUM/VILANTEROL 62.5/25MCG 7 PUFFS/INHALER INH SCH (09:50)
[2021-05-14 09:57] LABS: Hemoglobin 12.5 g/dL (12.0-16.0); Mean Corpuscular Hemoglobin 29.6 pg (25-34); Mean Corpuscular Hgb Conc 32.1 g/dL (32-36); Mean Corpuscular Volume 92.4 fL (80-100); Mean Platelet Volume 9.7 fL (7.4-10.4); Nucleated RBC # (auto) 0.02 K/uL (0-0); Nucleated RBC % (auto) 0.2 %; Platelet Count 296 K/uL (130-400); RDW Coefficient of Variation 15.5 % (11.5-14.5); RDW Standard Deviation 52.2 fL (36.4-46.3); Red Blood Count 4.22 M/uL (4.2-5.4); White Blood Count 12.54 K/uL (4.8-10.8)
[2021-05-14 10:18] LABS: BUN Creatinine Ratio 15.2 (10-20); C Reactive Protein 11.7 mg/dl (0-0.29); Calcium 9.3 mg/dl (8.5-10.1); Creatinine Clr Calc Pharmacy 72.8 ml/min; Est GFR (African American) 61.6 ml/min; Est GFR (Non-African American) 53.2 ml/min; Potassium 3.4 mmol/L (3.5-5.1)
[2021-05-14 10:21] LABS: Basophils # (auto) 0.02 K/uL (0-0.2); Basophils % (auto) 0.2 %; Eosinophils % (auto) 0.8 %; Immature Granulocytes # (auto) 0.07 K/uL (0.00-0.02); Immature Granulocytes % (auto) 0.6 %; Lymphocytes % (auto) 11.2 %; Monocytes # (auto) 1.95 K/uL (0.11-0.59); Monocytes % (auto) 15.6 %; Neutrophils % (auto) 71.6 %; Polychromasia 1+; Toxic Vacuolation 2+
--- NOTE | 2021-05-14 11:07 | XRay Report ---
XR KUB/Abdomen 1 view CLINICAL HISTORY: NG placement, need view of stomach TECHNIQUE: 1 view of the abdomen was obtained. Comparison: Comparison is made to abdomen radiographs 05/11/2021 FINDINGS: The enteric tube is not included [id number] of this image. The osseous structures are grossly unre markable. Multiple distended loops of small bowel are seen measuring up to 51 mm in diameter, likely increased from prior exam. A moderate amount of stool is noted within the large bowel. IMPRESSION: 1. Enteric tube is not seen within the field of view of this image. 2. Multiple distended loops of small bowel obstruction or ileus. ACT 112: Negative or not required by law. Electronically signed by: Jack Beltran M.D. 05/14/2021 11:06 AM
[2021-05-14] MEDS ORDERED: bisacodyL 10 MG SUPP PR STA (14:28)
[2021-05-14] MEDS: DIGOXIN 0.125 MG TAB PO SCH (16:17)
--- NOTE | 2021-05-14 16:59 | Cardiology Consultation ---
Date of Consultation May 14, 2021 Assessment & Plan (1) Chronic systolic heart failure: (2) Nonischemic cardiomyopathy: (3) ICD (implantable cardioverter-defibrillator) in place: (4) Atrial fibrillation, permanent: (5) Anticoagulant long-term use: (6) Ventricular tachycardia: (7) Preop cardiovascular exam: ASSESSMENT/PLAN: 1. Chronic HF with reduced EF (chronic systolic CHF): She appears euvolemic. Breathing at baseline. On supplemental oxygen with underlying COPD as well chronically. Likely class NYHA class 3. Would recommend continuation of digoxin, metoprolol succinate, and Entresto as per her home regimen. Low-sodium diet when able to partake in a diet. Monitor I&Os. Continues to tolerate oral diuretic. Monitor renal function and electrolytes and replete as appropriate. 2. Nonischemic cardiomyopathy: Severely reduced LV systolic function. ICD in place and managed by Dr. Pelayo. Continue heart failure medications. 3. Permanent atrial fibrillation: Asymptomatic. Heart rate reasonably controlled. Continue rate-controlling medications. Can continue anticoagulation for stroke risk reduction if no surgery is planned. In case there is need for more emergent/urgent surgery, could use heparin drip in place of Xarelto so that it can be stopped quickly. 4. Ventricular tachycardia: This has been noted on ICD interrogation in the outpatient setting. With her recent syncopal episode, remote ICD transmission has been reviewed by Dr. Pelayo, and no identifiable arrhythmia was noted to account for a loss of consciousness. Continue beta-julee. 5. Preoperative cardiac assessment: She appears to be optimized from a cardiac standpoint if surgery is indicated for her small-bowel obstruction. Would be cautious with fluid administration and monitor her volume status carefully. Would continue with beta-julee therapy throughout the perioperative period. No further cardiac evaluation is necessary. 6. Disposition: Follow-up with Dr. Pelayo upon discharge. Please call on-call pony cylinder press operator with any other questions or concerns. No acute cardiac issue present. Patient care has been discussed with Dr. Chamberlain of the primary hospitalist service. Thank you for allowing me to participate in the care of your patient. Please call for any other questions or concerns. Sincerely, Michael Starks M.D. History of Present Illness Reason for Consultation: Preoperative cardiac assessment Requesting Physician: Oma Bustamante PA-C Attending Physician: Chito Chamberlain DO History of Present Illness Ms. Gonzales is a pleasant 60-year-old female with history significant for nonischemic cardiomyopathy, ICD, atrial fibrillation, chronic systolic CHF, COPD on supplemental oxygen 3 L via nasal cannula at home, hypertension, and prediabetes. She also reportedly has schizoaffective disorder, PTSD, pulmonary embolism (2013), and alcohol abuse. Her primary pony cylinder press operator is Dr. Pelayo. She was admitted on 05/11/2021 with small-bowel obstruction. She is being followed by surgery. Conservative management has been recommended but in case that surgical intervention is necessary, preoperative cardiac assessment was requested by the surgical team. Prior to her hospitalization on 05/06/2021, she was seen in the emergency department after syncopal event. She states that she was brushing her teeth, felt quite dizzy, and then collapsed. She states that she lost consciousness, causing the fall. She does not recall ICD therapy. She then came back to the emergency department for this hospitalization with nausea, vomiting, and abdominal discomfort. She also had dark stools which were described as soft. She was diagnosed with small-bowel obstruction. She has an NG tube in place. Fortunately, her abdominal discomfort has subsided. She had 2 bowel movements thus far today. Her breathing has been at baseline. She has chronic orthopnea and is at baseline as well. She states that she typically has edema but it is better than usual. She denies chest pain, palpitations, or recurrent syncopal episode. She states that she consumes too much alcohol and would not further quantify and then became tearful. Review of systems: As above. Review of systems otherwise negative /unremarkable. Family history: Noncontributory. Social history: She quit smoking in 2015. She consumes too much alcohol on a regular basis but would not quantify. She denies drugs. She lives alone. She has 1 daughter and 4 sons. One son lives locally but she does not have much contact with him. She was unaccompanied in her hospital room. Allergies Allergy/AdvReac Type Severity Reaction Status Date / Time fentanyl Allergy Mild RASH,ITCHIN Verified 05/06/21 19:39 G Home Medications Medication Instructions Recorded Confirmed Type trazodone 100 mg tablet 200 mg PO HS 10/07/18 05/11/21 History metformin 500 mg tablet 500 mg PO BID #60 tab 12/15/18 05/11/21 Rx quetiapine 100 mg tablet (Seroquel) 100 mg PO QAM 01/02/19 05/11/21 History Oxygen Home #1 ea 05/09/19 03/04/21 Rx docusate sodium 100 mg capsule 100 mg PO BID #180 cap 06/28/19 05/11/21 Rx (Colace) quetiapine 400 mg tablet (Seroquel) 400 mg PO HS tab 07/05/19 05/11/21 History CPAP Supplies #1 ea 07/12/19 02/26/21 Rx digoxin 125 mcg (0.125 mg) tablet 125 mcg PO QAM #90 tab 04/17/20 05/11/21 Rx rivaroxaban 20 mg tablet (Xarelto) 20 mg PO QAM #90 tab 04/17/20 05/11/21 Rx omeprazole 20 mg capsule,delayed 20 mg PO DAILYBB #90 cap 06/09/20 05/11/21 Rx release Portable Oxygen #1 ea 07/29/20 03/04/21 Rx sacubitril 24 mg-valsartan 26 mg 1 tab PO BID #60 tab 08/27/20 05/11/21 Rx tablet (Entresto) pregabalin 150 mg capsule 150 mg PO BID 30 Days #60 cap 03/04/21 05/11/21 Rx furosemide 40 mg tablet 80 mg PO BID #120 tab 03/24/21 05/11/21 Rx magnesium oxide 400 mg (241.3 mg 400 mg PO QAM 03/24/21 05/11/21 History magnesium) tablet potassium chloride 20 mEq 40 meq PO QAM 03/24/21 05/11/21 History tablet,extended release umeclidinium 62.5 mcg-vilanterol 1 inh INH Q24H #60 ea 04/06/21 05/11/21 Rx 25 mcg/actuation powdr for inhalation (Anoro Ellipta) atorvastatin 10 mg tablet 10 mg PO QAM #90 tab 04/21/21 05/11/21 Rx hydroxyzine HCl 50 mg tablet 50 mg PO DAILY PRN 05/06/21 05/11/21 History metoprolol succinate 100 mg 150 mg PO QAM 05/06/21 05/11/21 History tablet,extended release 24 hr Patient History Medical History Adrenal adenoma Rt sided imaging 01/2020 Asthma Atrial fibrillation on xarelto/metoprolol/digoxin--follows with Dr. Pelayo CHF (congestive heart failure) 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% per echo 06/06/18; non-obstructive CAD per cath 2006 Chronic respiratory failure with hypoxia oxygen 3L n/c at all times COPD (chronic obstructive pulmonary disease) Depression Diabetes type 2, controlled patient denies having diabetes, does not want further testing even though she is prescribed Metformin GERD (gastroesophageal reflux disease) Glaucoma ? pt denies History of alcohol use History of tobacco abuse HTN (hypertension) Lightheadedness Memory impairment Morbid obesity On anticoagulant therapy xarelto daily On home oxygen therapy 3 L N/C at all times Pericardial effusion Peripheral neuropathy PTSD (post-traumatic stress disorder) Pulmonary embolism 2013 while living in [place] Pulmonary hypertension Restrictive lung disease Schizoaffective disorder Severe mitral regurgitation Ventricular arrhythmia Vitamin D deficiency Surgical History AICD (automatic cardioverter/defibrillator) present meditronic History of cardiac cath x2?-- History of decompression of both ulnar nerves History of eye surgery left History of hernia surgery x2 History of incision and drainage (~09/30/20) left tibia History of open reduction and internal fixation (ORIF) procedure left tibia--hardware in place History of tooth extraction partial upper S/P ORIF (open reduction internal fixation) fracture ankle, left--hardware in place S/P tubal ligation Family History Mother , in her 70s Congestive heart failure (CHF) Breast cancer Lung cancer from this Father No problems noted. 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 Alert and oriented. HEENT: Anicteric sclera. Neck: Thick neck. No bruit. Normal carotid upstrokes. Cardiac: PMI was nonpalpable. No ventricular heave. Irregularly irregular with normal heart rate. Normal S1-S2. No murmurs, rubs, or gallops. Pulmonary: Clear to auscultation bilaterally without wheezes, rales, or rhonchi. Abdomen: Soft, nontender, nondistended, with hypoactive bowel sounds. No bruits noted. Extremities: 2+ radial pulses bilaterally. 2+ posterior tibialis pulses bilaterally. No edema or cyanosis. Psychiatric: Affect appears appropriate. Results & Data ([facility]) Vital Signs (Past 12 Hours) Vital Signs Temp Pulse Pulse Resp BP BP Pulse Ox 05/14/21 16:17 80 05/14/21 15:01 36.5 C 78 18 95/60 L 95 05/14/21 07:13 36.4 C L 82 18 107/69 95 Intake & Output 05/12/21 05/13/21 05/14/21 05/15/21 06:59 06:59 06:59 06:59 Intake Total 470 / 470 2629.000 / 2629.000 3416 / 3416 Output Total 2800 / 2800 1000 / 1000 1802 / 1802 650 / 650 Balance -2330 / -2330 1629.000 / 2177.435 0273 / 1614 -650 / -650 Weight 266 lb 15.677 oz 263 lb 0.183 oz Laboratory Results Laboratory Results - last 24 hr 05/14/21 05/14/21 09:40 09:40 WBC 12.54 H RBC 4.22 Hgb 12.5 Hct 39.0 MCV 92.4 MCH 29.6 MCHC 32.1 RDW Std Deviation 52.2 H RDW Coeff of Logan 15.5 H Plt Count 296 MPV 9.7 Immature Gran % (Auto) 0.6 Neut % (Auto) 71.6 Lymph % (Auto) 11.2 Benson % (Auto) 15.6 Eos % (Auto) 0.8 Baso % (Auto) 0.2 Neut # (Auto) 9.00 H Lymph # (Auto) 1.40 Benson # (Auto) 1.95 H Eos # (Auto) 0.10 Baso # (Auto) 0.02 Immature Gran # (Auto) 0.07 H Absolute Nucleated RBC 0.02 H Nucleated RBC % (auto) 0.2 Toxic Vacuolation 2+ Polychromasia 1+ Sodium 139 Potassium 3.4 L Chloride 97 L Carbon Dioxide 37 H Anion Gap 5.0 BUN 17 Creatinine 1.13 Est Cr Clr Drug Dosing 72.8 Est GFR ( Amer) 61.6 Est GFR (Non-Af Amer) 53.2 BUN/Creatinine Ratio 15.2 Glucose 75 Calcium 9.3 C-Reactive Protein 11.70 H Diagnostic Findings Echo 10/01/2020: Severely reduced LV systolic function. EF 20-25%. Moderately dilated LV. Severe global hypokinesis. ECG personally reviewed 05/11/2021: AFib with RVR 134 beats per minute. Nonspecific ST/T-wave abnormality. PVC versus aberrantly conducted complex. Chest x-ray 05/14/2021: Bibasilar opacities probable atelectasis per Radiology. CT abdomen/pelvis 05/11/2021: High-grade small-bowel obstruction. Medications Administered Current Inpatient Medications Atorvastatin Calcium (Atorvastatin 10 Mg Tab) 10 mg PO QAM [facility] Stop: 06/13/21 08:59 Last Admin: 05/14/21 09:46 Dose: 10 mg Documented by: Digoxin (Digoxin 0.125 Mg Tab) 0.125 mg PO DAILY@1600 [facility] Stop: 06/12/21 15:59 Last Admin: 05/14/21 16:17 Dose: 0.125 mg Documented by: Diphenhydramine HCl (Diphenhydramine 50 Mg/Ml Vial) 25 mg IV QPM PRN PRN Reason: Insomnia Stop: 06/12/21 06:30 Last Admin: 05/14/21 02:37 Dose: 25 mg Documented by: Fluticasone Propionate (Fluticasone Propionate Na Spr 16 Gm Btl) 2 sprays NA BID [facility] Stop: 06/11/21 20:59 Last Admin: 05/14/21 09:49 Dose: 2 sprays Documented by: Furosemide (Furosemide 80 Mg Tab) 80 mg PO BID17 [facility] Stop: 06/12/21 16:59 Last Admin: 05/14/21 16:17 Dose: 80 mg Documented by: Hydroxyzine HCl (Hydroxyzine Hcl 25 Mg Tab) 50 mg PO DAILY PRN PRN Reason: Anxiety Stop: 06/12/21 15:48 Last Admin: 05/13/21 19:17 Dose: 50 mg Documented by: Famotidine 20 mg/ Syringe 5 mls @ 2.5 mls/min IV Q12H [facility] Stop: 06/11/21 08:59 Last Admin: 05/14/21 09:49 Dose: 2.5 mls/min Documented by: Acetaminophen (Ofirmev) 1,000 mg in 100 mls @ 400 mls/hr IV Q8H PRN PRN Reason: Pain Stop: 05/15/21 01:12 Last Infusion: 05/13/21 16:21 Dose: Infused Documented by: Ketorolac Tromethamine (Ketorolac Tromethamine 15 Mg/Ml Vial) 15 mg IV Q6H PRN PRN Reason: Pain Stop: 05/17/21 01:12 Last Admin: 05/13/21 16:55 Dose: 15 mg Documented by: Metoprolol Succinate (Metoprolol Succ 50mg Ext Rel Tab) 150 mg PO QAM [facility] Stop: 06/13/21 08:59 Last Admin: 05/14/21 09:46 Dose: 150 mg Documented by: Metoprolol Tartrate (Metoprolol Tartrate 1 Mg/Ml Vial) 5 mg IV Q4H PRN PRN Reason: HR > 110 Stop: 06/11/21 01:12 Ondansetron HCl (Ondansetron Inj 2 Mg/Ml 2 Ml Vial) 4 mg IV Q6H PRN PRN Reason: Nausea And Vomiting Stop: 06/10/21 23:44 Last Admin: 05/14/21 02:37 Dose: 4 mg Documented by: Quetiapine Fumarate (Quetiapine Fumarate 200 Mg Tab) 400 mg PO HS [facility] Stop: 06/12/21 20:59 Last Admin: 05/13/21 20:19 Dose: 400 mg Documented by: Quetiapine Fumarate (Quetiapine Fumarate 100 Mg Tablet) [facility] [place]: 06/13/21 08:59 Last Admin: 05/14/21 09:45 Dose: 100 mg Documented by: Rivaroxaban (Rivaroxaban 20 Mg Tab) [facility] [place] Stop: 06/13/21 08:59 Last Admin: 05/14/21 09:50 Dose: 20 mg Documented by: Sacubitril/Valsartan (Valsartan/Sacubitril 26/24mg Tab) 1 tab PO BID [facility] Stop: 06/12/21 20:59 Last Admin: 05/14/21 09:45 Dose: 1 tab Documented by: Umeclidinium/Vilanterol (Umeclidinium/Vilanterol 62.5/25mcg 7 Puffs/Inhaler) 1 puffs [facility] Stop: 06/11/21 08:59 Last Admin: 05/14/21 09:50 Dose: 1 puffs Documented by: PG Care Time/CCT Total # of Minutes Spent Total Time Spent with Patient: Total time spent is greater than 50% in coordination of care (as documented) at patient's floor/unit and/or counseling patient: Coding Level of Care Code 19455 Initial Inpt Care Lvl 2 Diagnoses Chronic systolic heart failure I50.22 Nonischemic cardiomyopathy I42.8 ICD (implantable cardioverter-defibrillator) in place Z95.810 Atrial fibrillation, permanent I48.21 Anticoagulant long-term use Z79.01 Ventricular tachycardia I47.2 Preop cardiovascular exam Z01.810
[2021-05-14] MEDS: KETOROLAC TROMETHAMINE 15 MG/ML VIAL IV PRN (17:29)
--- NOTE | 2021-05-14 19:24 | Billing Data ---
Date of Service May 14, 2021 Coding Level of Care Code 19439 Subseq Hosp Care Lvl 3
[2021-05-14] MEDS: QUEtiapine FUMARATE 200 MG TAB PO SCH (21:23)
[2021-05-14] MEDS: LACTATED RINGER'S 1,000 ML IV SCH (21:30)
[2021-05-15] MEDS: KETOROLAC TROMETHAMINE 15 MG/ML VIAL IV PRN ×2 (01:43→13:42)
[2021-05-15 06:10] LABS: Basophils # (auto) 0.01 K/uL (0-0.2); Basophils % (auto) 0.1 %; Eosinophils # (auto) 0.19 K/uL (0-0.5); Eosinophils % (auto) 1.7 %; Hematocrit (blood only) 38.3 % (37-47); Hemoglobin 12.1 g/dL (12.0-16.0); Immature Granulocytes # (auto) 0.02 K/uL (0.00-0.02); Immature Granulocytes % (auto) 0.2 %; Lymphocytes % (auto) 13.9 %; Mean Corpuscular Hemoglobin 29.7 pg (25-34); Mean Corpuscular Hgb Conc 31.6 g/dL (32-36); Mean Corpuscular Volume 94.1 fL (80-100); Mean Platelet Volume 9.6 fL (7.4-10.4); Monocytes # (auto) 1.17 K/uL (0.11-0.59); Monocytes % (auto) 10.2 %; Neutrophils # (auto) 8.48 K/uL (1.4-6.5); Neutrophils % (auto) 73.9 %; Platelet Count 330 K/uL (130-400); RDW Coefficient of Variation 15.4 % (11.5-14.5); Red Blood Count 4.07 M/uL (4.2-5.4); White Blood Count 11.47 K/uL (4.8-10.8)
[2021-05-15 06:39] LABS: BUN Creatinine Ratio 19.1 (10-20); Calcium 8.9 mg/dl (8.5-10.1); Creatinine Clr Calc Pharmacy 66.9 ml/min; Est GFR (African American) 55.6 ml/min
--- NOTE | 2021-05-15 09:16 | Surgery Progress Note ---
Date of Service May 15, 2021 Assessment & Plan (1) Small bowel obstruction: Plan: afebrile reinsertion of NGT 05/14/2021, 450 cc last shift, 50 cc in canister during examination abdomen less distended and soft today, minimal tenderness, hypoactive bowel sounds but present hypokalemia Plan: obtain KUB today as she still is having NGT output and hard to obtain ROS by patient even though her exam has improved and having + bowel function Continue NGT to LIS needs to get oob to chair and ambulate to increase GI motility, encouraged patient again today would likely recommend NGT clamp trail if KUB improved as she still is having NGT output rather than just removing NGT replace potassium Rounded with Dr. Valentin at 10:00 am KUB imaging still showing distended SB but more air with colon, stool burden in rectum improved Continue NGT to LIS [facility] surgery covering this weekend Admission and Anticipated Discharge Date Admission Date: May 11, 2021 Subjective feeling better today abdominal pain is better than yesterday passed gas and bowel movements yesterday, nothing so far today no nausea or vomiting Physical Exam Constitutional: + obese; no acute distress and not ill appearing Respiratory: normal respiratory effort; no labored breathing Gastrointestinal (Abdomen): Inspection/Auscultation: abdomen normal to inspection and + hypoactive bowel sounds; abdomen not distended and + abnormal bowel sounds Percussion/Palpation: abdomen soft; abdomen nontender, no guarding and abdomen not rigid NGt with dark green output about 50 cc in canister Skin: no rashes, warm and dry Psychiatric: Orientation: alert and oriented x 3 Results & Data ([facility]) Vital Signs (Past 12 Hours) Vital Signs Temp Pulse Resp BP Pulse Ox 05/15/21 07:00 36.3 C L 101 H 18 107/73 93 05/14/21 22:59 36.8 C 96 H 20 91/57 L 93 Laboratory Results 05/15/21 05/15/21 05/14/21 Range/Units 05:48 05:48 09:40 WBC 11.47 H (4.8-10.8) K/uL RBC 4.07 L (4.2-5.4) M/uL Hgb 12.1 (12.0-16.0) g/dL Hct 38.3 (37-47) % MCV 94.1 (80-100) fL MCH 29.7 (25-34) pg MCHC 31.6 L (32-36) g/dL RDW Std Deviation 53.0 H (36.4-46.3) fL RDW Coeff of Logan 15.4 H (11.5-14.5) % Plt Count 330 (130-400) K/uL MPV 9.6 (7.4-10.4) fL Immature Gran % (Auto) 0.2 % Neut % (Auto) 73.9 % Lymph % (Auto) 13.9 % Nance % (Auto) 10.2 % Eos % (Auto) 1.7 % Baso % (Auto) 0.1 % Neut # (Auto) 8.48 H (1.4-6.5) K/uL Lymph # (Auto) 1.60 (1.2-3.4) K/uL Nance # (Auto) 1.17 H (0.11-0.59) K/uL Eos # (Auto) 0.19 (0-0.5) K/uL Baso # (Auto) 0.01 (0-0.2) K/uL Immature Gran # (Auto) 0.02 (0.00-0.02) K/uL Absolute Nucleated RBC (0-0) K/uL Nucleated RBC % (auto) % Toxic Vacuolation Polychromasia Sodium 140 139 (136-145) mmol/L Potassium 3.0 L 3.4 L (3.5-5.1) mmol/L Chloride 97 L 97 L (98-107) mmol/L Carbon Dioxide 37 H 37 H (21-32) mmol/L Anion Gap 7.0 5.0 (3-11) BUN 24 H 17 (7-18) mg/dl Creatinine 1.23 H 1.13 (0.6-1.2) mg/dl Est Cr Clr Drug Dosing 66.9 72.8 ml/min Est GFR ( Amer) 55.6 61.6 ml/min Est GFR (Non-Af Amer) 48.0 53.2 ml/min BUN/Creatinine Ratio 19.1 15.2 (10-20) Glucose 89 75 (70-99) mg/dl Calcium 8.9 9.3 (8.5-10.1) mg/dl C-Reactive Protein 11.70 H (0-0.29) mg/dl 05/14/21 Range/Units 09:40 WBC 12.54 H (4.8-10.8) K/uL RBC 4.22 (4.2-5.4) M/uL Hgb 12.5 (12.0-16.0) g/dL Hct 39.0 (37-47) % MCV 92.4 (80-100) fL MCH 29.6 (25-34) pg MCHC 32.1 (32-36) g/dL RDW Std Deviation 52.2 H (36.4-46.3) fL RDW Coeff of Logan 15.5 H (11.5-14.5) % Plt Count 296 (130-400) K/uL MPV 9.7 (7.4-10.4) fL Immature Gran % (Auto) 0.6 % Neut % (Auto) 71.6 % Lymph % (Auto) 11.2 % Nance % (Auto) 15.6 % Eos % (Auto) 0.8 % Baso % (Auto) 0.2 % Neut # (Auto) 9.00 H (1.4-6.5) K/uL Lymph # (Auto) 1.40 (1.2-3.4) K/uL Nance # (Auto) 1.95 H (0.11-0.59) K/uL Eos # (Auto) 0.10 (0-0.5) K/uL Baso # (Auto) 0.02 (0-0.2) K/uL Immature Gran # (Auto) 0.07 H (0.00-0.02) K/uL Absolute Nucleated RBC 0.02 H (0-0) K/uL Nucleated RBC % (auto) 0.2 % Toxic Vacuolation 2+ Polychromasia 1+ Sodium (136-145) mmol/L Potassium (3.5-5.1) mmol/L Chloride (98-107) mmol/L Carbon Dioxide (21-32) mmol/L Anion Gap (3-11) BUN (7-18) mg/dl Creatinine (0.6-1.2) mg/dl Est Cr Clr Drug Dosing ml/min Est GFR ( Amer) ml/min Est GFR (Non-Af Amer) ml/min BUN/Creatinine Ratio (10-20) Glucose (70-99) mg/dl Calcium (8.5-10.1) mg/dl C-Reactive Protein (0-0.29) mg/dl
[2021-05-15] MEDS: RIVAROXABAN 20 MG TAB PO SCH (10:08)
[2021-05-15] MEDS: UMECLIDINIUM/VILANTEROL 62.5/25MCG 7 PUFFS/INHALER INH SCH (10:36)
[2021-05-15] MEDS: ATORVASTATIN 10 MG TAB PO SCH (10:37)
[2021-05-15] MEDS: FLUTICASONE PROPIONATE NA SPR 16 GM BTL SCH ×3 (10:37→21:31)
[2021-05-15] MEDS: QUEtiapine FUMARATE 100 MG TABLET PO SCH (10:38)
[2021-05-15] MEDS: VALSARTAN/SACUBITRIL 26/24MG TAB PO SCH ×2 (10:40→21:33)
[2021-05-15] MEDS: FUROSEMIDE 80 MG TAB PO SCH ×2 (10:41→17:18)
[2021-05-15] MEDS: LACTATED RINGER'S 1,000 ML IV SCH ×2 (10:51→21:29)
--- NOTE | 2021-05-15 10:54 | XRay Report ---
XR KUB/Abdomen 1 view CLINICAL HISTORY: eval SBO. Follow-up distended loops of small bowel COMPARISON STUDY: 05/14/2021 TECHNIQUE: 4 views of the abdomen FINDINGS: Compared to previous examination, NG tube is seen with its tip in the gastric fundus. There are again multiple mildly dilated loops of small bowel present. There is air seen within the right side of the colon. There is no evidence for organomegaly or gross intra-abdominal mass. No abnormal calcificatio ns are seen along the course of the urinary tracts bilaterally. No acute osseous pathology. IMPRESSION: 1.Compared to the previous study, tip of NG tube is in the gastric fundus. Mildly dilated, air-filled loops of small bowel are again seen along with air in the colon. Differential diagnosis still remain s ileus versus partial small bowel obstruction. ACT 112: Negative or not required by law. Electronically signed by: Miguel Sanchez M.D. 05/15/2021 10:53 AM
[2021-05-15] MEDS: METOPROLOL SUCC 50MG EXT REL TAB PO SCH ×2 (10:55→13:26)
[2021-05-15] MEDS: hydrOXYzine HCl 25 MG TAB PO PRN (13:24)
--- NOTE | 2021-05-15 16:07 | Hospitalist Progress Note ---
Date of Service May 15, 2021 Assessment & Plan (1) Small bowel obstruction: Plan: 60 year old female past medical history of CHF w/ EF 20-25%, Atrial fibrillation s/p AICD on Xarelto, PE in 2013, COPD on 3L home O2, and prediabetes admitted for SBO w/ nausea and vomiting. * SBO: -per surgery: conservative care for now - NG tube, monitor output, LR fluids started at 80 cc/hr, NPO. -Discontinued IV Zosyn. -Continue to monitor for signs of fever, leukocytosis, metabolic acidosis, and peritonitis. -NG tube removed, then replaced after patient failed trial of liquid diet -Plan remains to manage conservatively: Continue with NG tube unless patient's symptom course worsens/requires urgent surgical intervention -Continue to monitor day-to-day. * Atrial Fibrillation w/ RVR: -Hold metoprolol and start on Lopressor 5mg q4 PRN w/ hold parameters. -Ordered digoxin level before starting on IV digoxin. -Switch to IV heparin in the morning (from home Xarelto) * CHF: -Echo from 09/2020 w/ EF 20-25%. -Adjusted home metoprolol, furosemide due to repeated low blood pressures (pulses remain normal) -Current regimen: Metoprolol succinate 100 mg p.o. every morning, furosemide 40 mg p.o. twice daily -Patient remains on LR 80 cc/h -Will continue to monitor fluid status and vitals. * HTN: -Same as above -Continue to monitor daily vitals, specifically BP * COPD: -Baseline of 3L O2 at home. Continue O2. -Duoneb QiD first 24 hours with [id number] PRN, continue PRN after. -No signs of pulmonary, pedal edema to date -Continue to monitor O2 saturation and breathing. * TOMI: -Patient on CPAP at home. Respiratory therapy consulted for CPAP management while in hospital. * Schizoaffective disorder: -Hold Seroquel, trazodone, hydroxyzine. * GERD: -Hold omeprazole and started IV famotidine. * Diabetes: -Hold metformin. Glucose 155 in ED, ordered A1c. Manage with insulin if needed. * HLD: -Hold atorvastatin. Dispo: Med/Surg w/ Telemetry Code Status: Full Code DVT Prophylaxis: Heparin drip (2) COPD, severe: (3) Chronic systolic heart failure: Admission and Anticipated Discharge Date Admission Date: May 11, 2021 Supervising Physician Co-Signing Physician Notes I personally examined the patient and verified all eugene points of history and exam, discussed case, and agree with decision making with Dr Shields Mixed picturepain is better and she is having bowel movements, but she is still putting out a lot from her NG tube in the x-ray is still somewhat concerning. Vitals noted, in general she is awake and alert pleasant no distress. HEENT normocephalic atraumatic mucous membranes moist. Abdomen is soft mildly disten ded but better than even yesterday nontender no masses organomegaly, no guarding rebound or rigidity. Neuro without focal deficits. Small bowel obstructionconcerning given that it was high-grade radiographically on admission, and she was showing improvement which later worsened necessitating replacement of NG tube. At the same time now her exam is relatively reassuring and she is having some bowel movements, but conversely still with high output and a concerning x-ray Continue to follow closely, continue NG drainage for now. Continue maintenance fluids albeit at a fairly slow rate because of her CHF. Appreciate surgical follow-through as well A. fib, CHF (chronic systolic and currently compensated) rate controlled, anticoagulated, fluid balance remains euvolemic today. Hypercalcemialikely was from volume contraction DVT prophylaxisanticoagulated Dispositioncontinue to follow closely, still not clear if she will require surgery or just conservative care Subjective Overnight: Per nursing, approximately 4 liters of stomach fluid removed via NG tube. She has also had multiple bowel movements and has been passing gas. This morning, resting comfortably in bed. She is awake, alert and oriented She a bit uncomfortable due to the tube but she understands why NG tube had to be placed again. She is in agreement with the plan. She has no acute concerns at this time. Review of Systems Constitutional: as per Subjective / HPI Physical Exam Constitutional: WD/WN, vitals as above Eyes: PERRL, conjunctivae normal, anicteric sclerae Respiratory: normal respiratory effort, lungs clear to auscultation Cardiovascular: RRR, no murmur, no edema Gastrointestinal (Abdomen): Abdomen appears less distended compared to yesterday. No tenderness to palpation. Psychiatric: A+Ox3, euthymic affect Results & Data Results & Data ([facility]) Vital Signs (Past 12 Hours) Vital Signs Temp Pulse Pulse Resp BP Pulse Ox 05/15/21 15:42 37.1 C 88 16 99/70 L 97 05/15/21 13:20 100 H 104/71 05/15/21 12:11 36.5 C 94 H 18 101/68 95 05/15/21 10:05 83 107/76 05/15/21 07:00 36.3 C L 101 H 18 107/73 93 Resident Activity Tracking Resident Involvement: Resident Care Provided Care Provided: Adult Hospital Medicine
[2021-05-15] MEDS: DIGOXIN 0.125 MG TAB PO SCH (16:51)
--- NOTE | 2021-05-15 18:44 | Billing Data ---
Date of Service May 15, 2021 Coding Level of Care Code 13127 Subseq Hosp Care Lvl 3
[2021-05-15] MEDS: FAMOTIDINE 20 MG in SYRINGE 3 ML IV SCH (21:30)
[2021-05-15] MEDS: QUEtiapine FUMARATE 200 MG TAB PO SCH (21:32)
[2021-05-16] MEDS ORDERED: SUCRALFATE 1 GM TAB PO STA ×2 (01:30→20:34)
[2021-05-16] MEDS ORDERED: CALCIUM CARBONATE 500 MG CHEWABLE TAB PO PRN (01:30)
[2021-05-16] MEDS: KETOROLAC TROMETHAMINE 15 MG/ML VIAL IV PRN ×2 (01:53→21:22)
--- NOTE | 2021-05-16 05:25 | Surgery Progress Note ---
Date of Service May 16, 2021 Assessment & Plan (1) Small bowel obstruction: Plan: Patient has been admitted on the hospitalist service. We recommend proceeding as follows: Maintain n.p.o. status for the present time Continue NG tube for the present time with consideration of clamping trial if bowel function improves. IV fluids for hydration until oral intake is reliable Encourage ambulation with assistance Admission and Anticipated Discharge Date Admission Date: May 11, 2021 Supervising Physician Co-Signing Physician Notes As per Roby Haile physician anesthesiologists' assistant Overall she appears comfortable wanting to know when the NG tube come out she feels that she is dry states that she has small flatus no bowel movement The abdomen morbidly obese without localized tenderness Leave NG tube in for now Lab noted K rider will be ordered Subjective Patient is resting comfortably in bed. She denies any shortness of breath. Patient denies any abdominal pain at this time. She says she has not moved her bowels but is passing small amounts of flatus. She denies any nausea vomiting. She does note some discomfort from the NG tube. Physical Exam Gastrointestinal (Abdomen): Abdomen is soft and does not appear distended. Bowel sounds are hypoactive. There is minimal to no pain with palpation. Results & Data ([facility]) Vital Signs (Past 12 Hours) Vital Signs Temp Pulse Resp BP Pulse Ox 05/15/21 23:34 36.5 C 80 18 101/66 95 PG Care Time/CCT Total # of Minutes Spent Total Time Spent with Patient: Total time spent is greater than 50% in coordination of care (as documented) at patient's floor/unit and/or counseling patient: Coding Level of Care Code 22859 Subseq Hosp Care Lvl 1 Diagnoses Small bowel obstruction K56.609
[2021-05-16 07:03] LABS: Creatinine Clr Calc Pharmacy 81.5 ml/min; Est GFR (African American) 70.6 ml/min; Est GFR (Non-African American) 60.9 ml/min
[2021-05-16] MEDS ORDERED: FUROSEMIDE 40 MG TAB PO SCH (09:00)
[2021-05-16] MEDS: ATORVASTATIN 10 MG TAB PO SCH (10:07)
[2021-05-16] MEDS: FAMOTIDINE 20 MG in SYRINGE 3 ML IV SCH ×2 (10:07→21:21)
[2021-05-16] MEDS: FLUTICASONE PROPIONATE NA SPR 16 GM BTL SCH ×2 (10:08→21:25)
[2021-05-16] MEDS: METOPROLOL SUCC 50MG EXT REL TAB PO SCH (10:09)
[2021-05-16] MEDS: UMECLIDINIUM/VILANTEROL 62.5/25MCG 7 PUFFS/INHALER INH SCH (10:10)
[2021-05-16] MEDS: VALSARTAN/SACUBITRIL 26/24MG TAB PO SCH ×2 (10:11→21:24)
[2021-05-16] MEDS: QUEtiapine FUMARATE 100 MG TABLET PO SCH (10:11)
[2021-05-16] MEDS: LACTATED RINGER'S 1,000 ML IV SCH ×2 (10:13→21:22)
[2021-05-16] MEDS: POTASSIUM CHLORIDE / WTR 10 MEQ/100 ML PLCT IV SCH ×6 (10:27→19:07)
[2021-05-16] MEDS ORDERED: ENOXAPARIN 1 MG/KG SQ SCH ×2 (13:45→19:00)
[2021-05-16 14:38] LABS: Basophils # (auto) 0.01 K/uL (0-0.2); Basophils % (auto) 0.1 %; Eosinophils # (auto) 0.17 K/uL (0-0.5); Eosinophils % (auto) 1.5 %; Hematocrit (blood only) 38.8 % (37-47); Hemoglobin 12.5 g/dL (12.0-16.0); Immature Granulocytes # (auto) 0.05 K/uL (0.00-0.02); Immature Granulocytes % (auto) 0.4 %; Lymphocytes # (auto) 2.12 K/uL (1.2-3.4); Lymphocytes % (auto) 18.4 %; Mean Corpuscular Hgb Conc 32.2 g/dL (32-36); Mean Corpuscular Volume 93.3 fL (80-100); Mean Platelet Volume 9.4 fL (7.4-10.4); Monocytes # (auto) 0.87 K/uL (0.11-0.59); Monocytes % (auto) 7.5 %; Neutrophils # (auto) 8.33 K/uL (1.4-6.5); Neutrophils % (auto) 72.1 %; Platelet Count 356 K/uL (130-400); RDW Coefficient of Variation 15.2 % (11.5-14.5); RDW Standard Deviation 51.9 fL (36.4-46.3); Red Blood Count 4.16 M/uL (4.2-5.4); White Blood Count 11.55 K/uL (4.8-10.8)
[2021-05-16 14:57] LABS: BUN Creatinine Ratio 21.1 (10-20); Creatinine Clr Calc Pharmacy 86.6 ml/min; Est GFR (Non-African American) 65.6 ml/min; Potassium 3.3 mmol/L (3.5-5.1)
[2021-05-16] MEDS: DIGOXIN 0.125 MG TAB PO SCH (16:34)
[2021-05-16] MEDS: ENOXAPARIN INJ 120 MG/0.8 ML SYR SQ SCH (18:31)
--- NOTE | 2021-05-16 18:39 | Hospitalist Progress Note ---
Date of Service May 16, 2021 Assessment & Plan (1) Small bowel obstruction: Plan: 60 year old female past medical history of CHF w/ EF 20-25%, Atrial fibrillation s/p AICD on Xarelto, PE in 2013, COPD on 3L home O2, and prediabetes admitted for SBO w/ nausea and vomiting. * SBO: -per surgery: conservative care for now - NG tube, monitor output, LR fluids started at 80 cc/hr, NPO. -Discontinued IV Zosyn. -Continue to monitor for signs of fever, leukocytosis, metabolic acidosis, and peritonitis. -NG tube removed, then replaced after patient failed trial of liquid diet -Plan remains to manage conservatively: Continue with NG tube unless patient's symptom course worsens/requires urgent surgical intervention -NG tube clamped, trial of clear liquid diet; monitor overnight for nausea or vomiting -Remove NG tube tomorrow pending successful trial of clear liquid diet Hypokalemia: -Replace with potassium chloride IV -Follow BMP in the morning * Atrial Fibrillation w/ RVR: -Hold metoprolol and start on Lopressor 5mg q4 PRN w/ hold parameters. -On metoprolol, digoxin -Therapeutic Lovenox 1 mg/kg every 12 hours until reliably taking regular diet-then restart Xarelto * CHF: -Echo from 09/2020 w/ EF 20-25%. -Furosemide held as patient is receiving low rate maintenance fluids (lactated Ringer's 80 mL/h) -Current regimen: Metoprolol succinate 100 mg p.o. every morning; digoxin 125 mcg every morning -Patient remains on LR 80 cc/h -Will continue to monitor fluid status and vitals. * HTN: -Same as above -Continue to monitor daily vitals, specifically BP * COPD: -Baseline of 3L O2 at home. Continue O2. -Duoneb QiD first 24 hours with [id number] PRN, continue PRN after. -No signs of pulmonary, pedal edema to date -Continue to monitor O2 saturation and breathing. * TOMI: -Patient on CPAP at home. Respiratory therapy consulted for CPAP management while in hospital. * Schizoaffective disorder: -Hold Seroquel, trazodone, hydroxyzine. * GERD: -Hold omeprazole and started IV famotidine. * Diabetes: -Hold metformin. Glucose 155 in ED, A1c only 6.4%. Manage with insulin if needed. * HLD: -Restart atorvastatin. Dispo: Med/Surg Code Status: Full Code DVT Prophylaxis: Lovenox SQ (2) COPD, severe: (3) Chronic systolic heart failure: Admission and Anticipated Discharge Date Admission Date: May 11, 2021 Supervising Physician Co-Signing Physician Notes I personally examined the patient and verified all eugene points of history and exam, discussed case, and agree with decision making with Dr. Shields with the following additions/exceptions: Patient reports feeling much better today. No abdominal pain, she is passing flatus but no bowel movement yet. No nausea and she is anxious to get the NG tube out. Her diet was advanced to clears and I saw her after she ate broth and some flavored ice and she tolerated it well. I discussed her care with the general surgeon on-call. Vitals reviewed Gen: AAOx3, NAD HEENT: Anicteric sclerae, EOMI CV: RRR no mgr nl S1S2 Pulm: CTAB no wcr Abd: +BS soft NT ND Ext: No edema, 2+ DP pulses Skin: No rashes, warm/dry Neuro: Full strength throughout Labs reviewed 60-year-old female here with small bowel obstruction likely secondary to adhes ions given multiple surgeries of the abdomen in the past. Bowel obstruction is clinically resolved, NG tube is been clamped all day and she is tolerating clear liquids Passing flatus, no bowel movement yet Okay to remove NG tube this evening if tolerates clear liquids for dinner If tolerating clear liquids tonight, will discontinue IV fluids given her severe cardiomyopathy and reduced ejection fraction Continue to hold home Lasix in the morning for now, but if tolerating p.o., could restart Lasix tomorrow Replace potassium and follow BMP in the morning Appreciate general surgery consultation Plan to restart Xarelto tomorrow if able to advance diet as it must be taken with a fatty meal to be properly absorbed-use Lovenox therapeutic dosing in the meantime Subjective Patient awake and alert in bed this morning, about to begin working with PT. She is anxious to remove the NG tube. She feels less distended than yesterday. She reports no abdominal pain, nausea, vomiting. She admits to passing gas, and to bowel movements. She has no other complaints. Review of Systems Review of Systems: All systems reviewed & are unremarkable except as noted in HPI & below Constitutional: as per Subjective / HPI Physical Exam Constitutional: WD/WN, vitals as above Eyes: PERRL, conjunctivae normal, anicteric sclerae Respiratory: normal respiratory effort, lungs clear to auscultation Cardiovascular: RRR, no murmur, no edema Gastrointestinal (Abdomen): Inspection/Auscultation: normal bowel sounds, + significant pannus and + abdominal surgical scar; abdomen not distended Percussion/Palpation: abdomen soft; abdomen nontender, no guarding, no ascites and no fluid wave Psychiatric: A+Ox3, euthymic affect Results & Data Results & Data ([facility]) Vital Signs (Past 12 Hours) Vital Signs Temp Pulse Pulse Resp BP BP Pulse Ox 05/16/21 16:34 83 05/16/21 15:24 36.9 C 81 16 116/82 97 05/16/21 14:09 98 05/16/21 12:36 36.5 C 82 18 102/73 99 05/16/21 10:03 85 134/84 98 05/16/21 07:23 36.4 C L 87 16 119/81 95 Resident Activity Tracking Resident Involvement: Resident Care Provided Care Provided: Adult Hospital Medicine
[2021-05-16] MEDS: QUEtiapine FUMARATE 200 MG TAB PO SCH (21:25)
[2021-05-16] MEDS ORDERED: traZODone HCL 100 MG TAB PO ONE (21:41)
--- NOTE | 2021-05-16 22:47 | Billing Data ---
Date of Service May 16, 2021 Coding Level of Care Code 89494 Initial Inpt Care Lvl 3
[2021-05-16] MEDS: hydrOXYzine HCl 25 MG TAB PO PRN (23:01)
--- NOTE | 2021-05-17 05:25 | Surgery Progress Note ---
Date of Service May 17, 2021 Assessment & Plan (1) Small bowel obstruction: Plan: Patient has been admitted on the hospitalist service. Continue care as follows: Consider advancing to full liquids today if she continues to tolerate clear liquids No need for surgical intervention at the present time Admission and Anticipated Discharge Date Admission Date: May 11, 2021 Supervising Physician Co-Signing Physician Notes As per Roby Manrique physician hotel assistant manager The patient was asleep laying on her left side when I walked in she awoke easily denied any abdominal discomfort felt much better than yesterday had a small bowel movement NG tube was removed Agree with advancing diet as tolerated may consider keeping her here today to make sure that she has no setback with oral intake Subjective Patient is resting comfortably in bed. She has had her NG tube removed yesterday and since that happened she denies any nausea or vomiting. She does report having a bowel movement yesterday. She has been started on clear liquids which she has thus far tolerated without any worsening of her abdominal symptoms. Physical Exam Gastrointestinal (Abdomen): Abdomen is rotund. It is soft and nondistended. Bowel sounds are present. There is no pain with palpation. Results & Data ([facility]) Vital Signs (Past 12 Hours) Vital Signs Temp Pulse Resp BP Pulse Ox 05/16/21 22:50 36.9 C 88 18 107/77 96 PG Care Time/CCT Total # of Minutes Spent Total Time Spent with Patient: Total time spent is greater than 50% in coordination of care (as documented) at patient's floor/unit and/or counseling patient: Coding Level of Care Code 99485 Subseq Hosp Care Lvl 1 Diagnoses Small bowel obstruction K56.609
[2021-05-17] MEDS: ENOXAPARIN INJ 120 MG/0.8 ML SYR SQ SCH ×2 (06:30→17:07)
[2021-05-17 07:00] LABS: BUN Creatinine Ratio 16.1 (10-20); Calcium 8.6 mg/dl (8.5-10.1); Est GFR (African American) 73.2 ml/min; Est GFR (Non-African American) 63.1 ml/min; Magnesium 2.2 mg/dl (1.8-2.4); Potassium 3.3 mmol/L (3.5-5.1)
[2021-05-17] MEDS: FAMOTIDINE 20 MG in SYRINGE 3 ML IV SCH (09:33)
[2021-05-17] MEDS: ATORVASTATIN 10 MG TAB PO SCH (09:34)
[2021-05-17] MEDS: METOPROLOL SUCC 50MG EXT REL TAB PO SCH (09:34)
[2021-05-17] MEDS: QUEtiapine FUMARATE 100 MG TABLET PO SCH (09:35)
[2021-05-17] MEDS: UMECLIDINIUM/VILANTEROL 62.5/25MCG 7 PUFFS/INHALER INH SCH (09:35)
[2021-05-17] MEDS: VALSARTAN/SACUBITRIL 26/24MG TAB PO SCH ×2 (09:35→21:55)
[2021-05-17] MEDS: FLUTICASONE PROPIONATE NA SPR 16 GM BTL SCH ×2 (09:35→21:55)
--- NOTE | 2021-05-17 09:37 | Hospitalist Progress Note ---
Date of Service May 17, 2021 Assessment & Plan (1) Small bowel obstruction: Plan: 60 year old female past medical history of CHF w/ EF 20-25%, Atrial fibrillation s/p AICD on Xarelto, PE in 2013, COPD on 3L home O2, and prediabetes admitted for SBO w/ nausea and vomiting. * SBO: -Stopped LR fluids as creatinine 0.98; continue to hold Lasix for now -No signs of fever, leukocytosis, metabolic acidosis, and peritonitis to date. -NG tube removed again this morning; patient passing gas, able to tolerate clear liquid diet -Stopped Toradol, started lidocaine patch; started Gas-X as needed -Consider advancing to full liquid diet tomorrow; will attempt trial of breakfast * Atrial Fibrillation w/ RVR: -On metoprolol, digoxin -Held home Xarelto -Therapeutic Lovenox 1 mg/kg every 12 hours * CHF: -Echo from 09/2020 w/ EF 20-25%. -Current regimen: Metoprolol succinate 100 mg p.o. every morning; digoxin 125 mcg every morning -Will continue to monitor fluid status and vitals. * HTN: -Same as above -Continue to monitor daily blood pressures * COPD: -Baseline of 3L O2 at home. Continue O2. -Duoneb QiD first 24 hours with [id number] PRN, continue PRN after. -No signs of pulmonary, pedal edema to date -Continue to monitor O2 saturation and breathing. * TOMI: -Patient on CPAP at home. Respiratory therapy consulted for CPAP management while in hospital. * Schizoaffective disorder: -Seroquel, trazodone, hydroxyzine. * GERD: - omeprazole and famotidine. * Diabetes: -Hold metformin. Hemoglobin A1c: 6.2; regular glucose checks * HLD: - atorvastatin. Dispo: Med/Surg w/ Telemetry Code Status: Full Code DVT Prophylaxis: Lovenox 1 mg/kg every 12 hours (2) COPD, severe: (3) Chronic systolic heart failure: Admission and Anticipated Discharge Date Admission Date: May 11, 2021 Supervising Physician Co-Signing Physician Notes I personally examined the patient and verified all eugene points of history and exam, discussed case, and agree with decision making with Dr. Shields with the following additions/exceptions: Patient feeling frustrated with being in the hospital for so long. NG tube removed last evening and after having more clear liquids this morning, she is starting to have some abdominal bloating again but no nausea. She is still passing flatus. Had a small bowel movement yesterday. Also has some pain in the left upper ribs in the midaxillary line from her recent fall. Vitals reviewed Gen: AAOx3, NAD HEENT: Anicteric sclerae, EOMI CV: RRR no mgr nl S1S2 Pulm: CTAB no wcr Abd: +BS soft NT ND Ext: No edema,, positive tenderness palpation over left ribs in the midaxillary line Skin: No rashes, warm/dry Neuro: Full strength throughout Labs reviewed 60-year-old female here with small bowel obstruction likely secondary to adhesio ns given multiple surgeries of the abdomen in the past. Bowel obstruction is clinically resolved, NG tube removed on evening of 05/16 after tolerating clear liquids and tube was clamped all day Passing flatus, 1 bowel movement on 05/16 KUB still some dilated loops of bowel in stool on 05/17, but seems to be more consistent with ileus at this time Continue clear liquids diet only for now and advance slowly as tolerated Encouraged ambulation Continue to hold home Lasix in the morning for now, but if tolerating p.o., could restart Lasix tomorrow Replace potassium and follow BMP in the morning Appreciate general surgery consultation Plan to restart Xarelto once able to advance diet as it must be taken with a fatty meal to be properly absorbed-use Lovenox therapeutic dosing in the meantime Review of Systems Review of Systems: All systems reviewed & are unremarkable except as noted in HPI & below Physical Exam Constitutional: WD/WN, vitals as above Respiratory: normal respiratory effort, lungs clear to auscultation Cardiovascular: RRR, no murmur, no edema Gastrointestinal (Abdomen): Inspection/Auscultation: normal bowel sounds, + significant pannus and + abdominal surgical scar; abdomen not distended Percussion/Palpation: abdomen soft; abdomen nontender, no guarding, no ascites and no fluid wave Psychiatric: A+Ox3, euthymic affect Results & Data Results & Data ([facility]) Vital Signs (Past 12 Hours) Vital Signs Temp Pulse Resp BP Pulse Ox 05/17/21 07:09 37.1 C 80 16 107/68 98 05/16/21 22:50 36.9 C 88 18 107/77 96 Resident Activity Tracking Resident Involvement: Resident Care Provided Care Provided: Adult Hospital Medicine
[2021-05-17] MEDS ORDERED: SIMETHICONE 40 MG/0.6 ML 30ML PO PRN (10:15)
--- NOTE | 2021-05-17 11:21 | XRay Report ---
XR KUB/Abdomen 1 view CLINICAL HISTORY: small bowel obstruction TECHNIQUE: 1 view of the abdomen was obtained. Comparison: Comparison is made to abdomen radiograph 05/15/2021 FINDINGS: Lung bases are unremarkable. The osseous structures are grossly unremarkable. Multiple gas-distended loops of small bowel bowel are seen measuring up to 4.5 cm in diameter. A moderate amount of stool is noted within the large bowel. IMPRESSION: Dilated gas-filled loops of small bowel are again seen compatible with small bowel obstruction versus ileus. ACT 112: Negative or not required by law. Electronically signed by: Jack Beltran M.D. 05/17/2021 11:19 AM
[2021-05-17] MEDS: LIDOCAINE 5% 1 PATCH TD SCH (11:29)
[2021-05-17] MEDS ORDERED: POTASSIUM CHLORIDE CRTAB 20 MEQ TABCR PO STA (15:54)
[2021-05-17] MEDS: DIGOXIN 0.125 MG TAB PO SCH (17:09)
--- NOTE | 2021-05-17 21:38 | Billing Data ---
Date of Service May 17, 2021 Coding Level of Care Code 89613 Subseq Hosp Care Lvl 3
[2021-05-17] MEDS: QUEtiapine FUMARATE 200 MG TAB PO SCH (21:56)
[2021-05-17] MEDS: hydrOXYzine HCl 25 MG TAB PO PRN (23:10)
[2021-05-18] MEDS: ENOXAPARIN INJ 120 MG/0.8 ML SYR SQ SCH (06:01)
[2021-05-18] MEDS: ATORVASTATIN 10 MG TAB PO SCH (08:08)
[2021-05-18] MEDS: FLUTICASONE PROPIONATE NA SPR 16 GM BTL SCH ×2 (08:09→09:51)
[2021-05-18] MEDS: METOPROLOL SUCC 50MG EXT REL TAB PO SCH (08:10)
[2021-05-18] MEDS: QUEtiapine FUMARATE 100 MG TABLET PO SCH (08:11)
[2021-05-18] MEDS: VALSARTAN/SACUBITRIL 26/24MG TAB PO SCH (08:11)
[2021-05-18] MEDS: LIDOCAINE 5% 1 PATCH TD SCH (08:12)
--- NOTE | 2021-05-18 08:21 | Hospitalist Progress Note ---
Date of Service May 18, 2021 Assessment & Plan Admission and Anticipated Discharge Date Admission Date: May 11, 2021 Results & Data Results & Data ([facility]) Vital Signs (Past 12 Hours) Vital Signs Temp Pulse Resp BP Pulse Ox 05/18/21 07:26 36.8 C 69 18 125/73 95 05/17/21 23:03 37 C 81 18 107/70 97
[2021-05-18 08:53] LABS: BUN Creatinine Ratio 8.1 (10-20); Calcium 9.1 mg/dl (8.5-10.1); Creatinine Clr Calc Pharmacy 90.4 ml/min; Est GFR (Non-African American) 69.1 ml/min; Magnesium 2.2 mg/dl (1.8-2.4)
[2021-05-18] MEDS ORDERED: FAMOTIDINE 20 MG TAB PO SCH (09:00)
[2021-05-18 09:01] LABS: Potassium 3.2 mmol/L (3.5-5.1)
--- NOTE | 2021-05-18 11:10 | Surgery Progress Note ---
Date of Service May 18, 2021 Assessment & Plan (1) Small bowel obstruction: Plan: afebrile reinsertion of NGT 05/14/2021, 450 cc last shift, 50 cc in canister during examination abdomen less distended and soft today, minimal tenderness, hypoactive bowel sounds but present hypokalemia Plan: obtain KUB today as she still is having NGT output and hard to obtain ROS by patient even though her exam has improved and having + bowel function Continue NGT to LIS needs to get oob to chair and ambulate to increase GI motility, encouraged patient again today would likely recommend NGT clamp trail if KUB improved as she still is having NGT output rather than just removing NGT replace potassium Rounded with Dr. Valentin at 10:00 am KUB imaging still showing distended SB but more air with colon, stool burden in rectum improved Continue NGT to LIS [facility] surgery covering this weekend 05/18/2021 11:12AM F/U SBO, doing better, tolerated clear diet, full liquid diet OOB please correct low K no surgery indication at the present time, will F/U Admission and Anticipated Discharge Date Admission Date: May 11, 2021 Supervising Physician Co-Signing Physician Notes I personally examined the patient and verified all eugene points of history and exam, discussed case, and agree with decision making with Dr. Shields with the following additions/exceptions: Patient feeling frustrated with being in the hospital for so long. NG tube removed last evening and after having more clear liquids this morning, she is starting to have some abdominal bloating again but no nausea. She is still passing flatus. Had a small bowel movement yesterday. Also has some pain in the left upper ribs in the midaxillary line from her recent fall. Vitals reviewed Gen: AAOx3, NAD HEENT: Anicteric sclerae, EOMI CV: RRR no mgr nl S1S2 Pulm: CTAB no wcr Abd: +BS soft NT ND Ext: No edema,, positive tenderness palpation over left ribs in the midaxillary line Skin: No rashes, warm/dry Neuro: Full strength throughout Labs reviewed 60-year-old female here with small bowel obstruction likely secondary to adhesions given multiple surgeries of the abdomen in the past. Bowel obstruction is clinically resolved, NG tube removed on evening of 05/16 after tolerating clear liquids and tube was clamped all day Passing flatus, 1 bowel movement on 05/16 KUB still some dilated loops of bowel in stool on 05/17, but seems to be more consistent with ileus at this time Continue clear liquids diet only for now and advance slowly as tolerated Encouraged ambulation Continue to hold home Lasix in the morning for now, but if tolerating p.o., could restart Lasix tomorrow Replace potassium and follow BMP in the morning Appreciate general surgery consultation Plan to restart Xarelto once able to advance diet as it must be taken with a fatty meal to be properly absorbed-use Lovenox therapeutic dosing in the meantime Subjective Patient is resting comfortably in bed. She has had her NG tube removed yesterday and since that happened she denies any nausea or vomiting. She does report having a bowel movement yesterday. She has been started on clear liquids which she has thus far tolerated without any worsening of her abdominal symptoms. 05/18/2021 11:08AM Dr. Valentin F/U SBO, pt is doing better, tolerated clear diet, no nausea, no vomiting, no abdominal pain, BM X 1 Physical Exam Constitutional: WD/WN, vitals as above Eyes: PERRL, conjunctivae normal, anicteric sclerae Neck: trachea midline, no thyromegaly Respiratory: normal respiratory effort, lungs clear to auscultation Cardiovascular: Heart Sounds: normal S1 and normal S2 Gastrointestinal (Abdomen): soft, NT, ND BS + Musculoskeletal: no cyanosis or clubbing, extremities motor strength 5/5 Neurologic: patellar DTR's 2+ bilat, sensation intact Psychiatric: A+Ox3, euthymic affect Results & Data ([facility]) Vital Signs (Past 12 Hours) Vital Signs Temp Pulse Resp BP Pulse Ox 05/18/21 07:26 36.8 C 69 18 125/73 95 Laboratory Results Abnormal lab results 05/18/21 Range/Units 07:36 Potassium 3.2 L (3.5-5.1) mmol/L BUN/Creatinine Ratio 8.1 L (10-20) Glucose 112 H (70-99) mg/dl Diagnostic Findings XR KUB/Abdomen 1 view CLINICAL HISTORY: small bowel obstruction TECHNIQUE: 1 view of the abdomen was obtained. Comparison: Comparison is made to abdomen radiograph 05/15/2021 FINDINGS: Lung bases are unremarkable. The osseous structures are grossly unremarkable. Multiple gas-distended loops of small bowel bowel are seen measuring up to 4.5 cm in diameter. A moderate amount of stool is noted within the large bowel. IMPRESSION: Dilated gas-filled loops of small bowel are again seen compatible with small bowel obstruction versus ileus.
--- NOTE | 2021-05-18 13:47 | Discharge Summary ---
Date of Service May 18, 2021 Admission HPI Per Admitting Provider Grazyna is a 60 year old female with past medical history of CHF w/ EF 20-25%, Atrial fibrillation s/p AICD on Xarelto, COPD on 3L home O2, HTN, and prediabetes who presented to the ED with 36 hours of nausea and vomiting and abdominal discomfort. Patient recently came in to the ED Tuesday for a syncopal episode where she hit her left side and had residual rib pain without evidence of fracture on imaging. She was discharged from the ED later that night with a prescription of 4-5 tablets of oxycodone. She said she took the prescription in half doses and finished the course due to her pain. 36 hours prior she started getting nauseous and has had multiple episodes of vomiting since then. She has had some discomfort with it in the upper quadrants as well. Patient has had regular bowel movement frequency but with a loose consistency. Patient said she has not had any swelling the past 36 hours in her lower extremities. Patient endorsed having a history of PE in the past and said she was put on the Xarelto for PE in 2013. When asked if she has had any other clots going to her lungs since being put on Xarelto she said yes but I was unable to ascertain how many times as she was drowsy by this point from pain medication. Patient said her A. fib at home has been well controlled with her not feeling any symptoms of palpitations. Denies tobacco use, alcohol use, however uses medical marijuana. Denies fevers, chills, palpitations, shortness of breath above baseline, urinary incontinence or pain with urination, blood in stool. Admission Exam Per Admitting Provider Eyes: PERRL, conjunctivae normal, anicteric sclerae ENMT: external ear and nose normal, oropharynx normal Respiratory: normal respiratory effort, lungs clear to auscultation Cardiovascular: Rate/Rhythm: + irregularly irregular Heart Sounds: normal S1 and normal S2 Gastrointestinal (Abdomen): Inspection/Auscultation: + abdomen distended and normal bowel sounds Skin: no rashes, warm and dry Psychiatric: A+Ox3, euthymic affect Principal Diagnosis Small bowel obstruction Discharge Exam Constitutional WD/WN, vitals as above Respiratory normal respiratory effort, lungs clear to auscultation Cardiovascular RRR, no murmur, no edema Gastrointestinal (Abdomen) Inspection/Auscultation: normal bowel sounds and + significant pannus Percussion/Palpation: + abdomen tender (luq; adjacent to left lower ribs) and abdomen soft; no guarding and abdomen not rigid Discharge Data Allergies Allergy/AdvReac Type Severity Reaction Status Date / Time fentanyl Allergy Mild RASH,ITCHIN Verified 05/06/21 19:39 G Consultations 05/11/21 21:41 ED Decision to Admit Stat 05/12/21 01:13 Consult General Surgery Routine 05/14/21 10:35 Consult Cardiology Routine Ordered Studies 05/11/21 20:07 CT abd pelvis IV con only Stat Hospital Course (1) Small bowel obstruction: 60 year old female past medical history of CHF w/ EF 20-25%, Atrial fibrillation s/p AICD on Xarelto, PE in 2013, COPD on 3L home O2, and prediabetes admitted for SBO w/ nausea and vomiting. * SBO: -History of multiple hernia repair surgeries, c/f SBO possibly 2/2 adhesions. -CT abd/pelvis w/ evidence of high grade SBO. -No signs of fever, leukocytosis, metabolic acidosis, and peritonitis since admission. -Conservative care: NG tube, monitor output, LR fluids started at 100 cc/hr, NPO. Surgery consulted and recommended conservative management at this point. -IV Zosyn 3.75g q6 empiric coverage started and later discontinued -Started on maintenance IVF for acute KIRSTIN that is now resolved (Cr: 0.91 today, down from 1.4); IVF stopped 05/18 -NG tube removed after 24h; pt failed trial of clear liquid diet; NG tube replaced 05/15. -NG tube removed evening of 05/16; now w/o emesis >24h -Successful trial of clear liquid diet, albeit with subjective gassiness, abdominal pain (switched Toradol to lidocaine patch, added Gas-X) but no emesis. -Successful trial of full liquid diet 05/18 without symptoms; pt cleared for d/c * Atrial Fibrillation w/ RVR: -On metoprolol, digoxin -Held home Xarelto and kept on therapeutic dose of lovenox. -Resumed Xarelto on discharge * CHF: -Echo from 09/2020 w/ EF 20-25%. -Adjusted initial regimen (Metoprolol 150 mg qAM, digoxin 125 mcg, lasix 40 mg bid) due to hypotension, low pulses -Current regimen: Metoprolol succinate 100 mg p.o. every morning (Dose change); digoxin 125 mcg every morning: lasix held -Outpt f/u to reassess med regimen * HTN: -Metoprolol, Lasix adjusted as above * COPD: -Baseline of 3L O2 at home. Continue O2. -Duoneb QiD first 24 hours with [id number] PRN, continue PRN after. -No signs of pulmonary, pedal edema to date * TOMI: -Patient on CPAP at home. Respiratory therapy consulted for CPAP management while in hospital. * Schizoaffective disorder: -Home Seroquel, trazodone, hydroxyzine. * GERD: -Kept on IV famotidine. Resumed home omeprazole. * Diabetes: -Held metformin during hospital stay. Hemoglobin A1c: 6.2. Resumed metformin on discharge. * HLD: -Held atorvastatin - resumed on discharge. (2) COPD, severe: (3) Chronic systolic heart failure: Total Time Total Time Spent Total Time Spent (In Minutes): 60 Discharge Plan Discharge Items Patient Disposition: Home - Self-Care Reason For Visit: SBO Discharge Diagnosis: Small bowel obstruction Activity: Per Instructions section Non-emergency contact: Primary Care Provider Call non-emergency contact if: your symptoms worsen and your pain is concerning for you Follow-up/Referrals: Antonio Oliver MD [Primary Care Provider] - Diet: Regular Addtl Attending Provider Instructions: Dear Grazyna, You were brought to the hospital with complaints of nausea, abdominal pain, and vomiting. While you were here, you were found to have evidence of a small bowel obstruction on imaging and so you were admitted. While you were here, we consulted with surgery, who placed a nasogastric tube to help relieve your symptoms without opting for surgery. After trying the nasogastric tube, we removed it and slowly advanced your diet, which you tolerated. We also adjusted some of your medications due to your low blood pressure. On your therefore, you are eligible to be discharged. A discharge summary will be sent to your primary care physician to ensure continuity of care. Please bring this discharge summary with you to your next office appointment so that your provider can review it at that time. Follow-up appointments: * Make a follow-up appointment with your PCP within the next week. It is very important that you follow up with them shortly after discharge from the hospital. * Keep all your follow-up appointments as already scheduled. If you cannot make an appointment, notify your provider. Medications: Your medication list has been reviewed and reconciled upon discharge to ensure accuracy and continuity of care. An updated list of all your medications is included with your hospital discharge paperwork. Please review this list closely, and make note of any changes. * We reduced your prescription of metoprolol 150 mg daily to 100 mg. Please take only 2 tablets of your current medication. We also sent a prescription at the new dose to your pharmacy. * We held your Lasix medication while you were here because of your low blood pressures. Please speak with your primary care physician before taking them again. * We are sending lidocaine strips to the pharmacy. Please use this for your rib pain instead of Toradol or ibuprofen, so as not to irritate your stomach. Take your medications as instructed; do not skip a dose of your medicines. Make sure all of your doctors know every medicine you are taking (including ov [id number] medicines, vitamins, and supplements). Call your primary care provider before taking any new medicines (including hqqw-auy-ditawal medicines, vitamins, and supplements), because some of these may interact with your current medications, or may make your symptoms worse. Tell your primary care provider if you cannot afford your medications. As for your diet, you should advance as much as you can tolerate. You can continue as you have here with full liquids, like soups for a day or two, until you feel ready to try more solid foods. If you experience any stomach issues, you can stop and try the last food you were able to successfully keep down. If you experience gassiness, you can use Gas-X, which is over the counter. Otherwise, advance your diet as well as you can tolerate. If you are experiencing vomiting that you cannot stop, please call your primary care provider. CONTACT YOUR PRIMARY CARE PROVIDER if you experience any of the following: * Sudden dizziness or lightheadedness * Nausea and vomiting with abdominal pain * Difficulty following your treatment plan, or difficulty taking medications CALL 911 OR GO TO THE EMERGENCY DEPARTMENT if you experience any of the following: * Sudden, severe abdominal pain or nausea/vomiting * Severe chest pain, or chest pain that radiates (moves) to your jaw or arm * Sudden, severe shortness of breath or difficulty breathing it has been a pleasure to take care of you here at [facility]. Thank you for allowing us to participate in your care. Pending Studies at Discharge: No Stand-Alone Forms: My [facility], Smoking Cessation Medications and DC Order Prescriptions: New metoprolol succinate 50 mg Tablet Extended Release 24 Hr 100 mg PO QAM 30 Days Qty: 60 RF: 0 lidocaine 5 % Adhesive Patch,Medicated 1 patch transdermal QAM 14 Days RF: 0 Continued metformin 500 mg tablet 500 mg PO BID Qty: 60 RF: 5 quetiapine [Seroquel] 400 mg tablet 400 mg PO HS RF: 0 digoxin 125 mcg (0.125 mg) tablet 125 mcg PO QAM Qty: 90 RF: 3 Xarelto 20 mg tablet 20 mg PO QAM Qty: 90 RF: 2 omeprazole 20 mg capsule,delayed release(DR/EC) 20 mg PO DAILYBB Qty: 90 RF: 3 (DME) Portable Oxygen Misc See Rx Instructions .MEDSUPPLY Qty: 1 RF: 0 Entresto 24-26 mg tablet 1 tab PO BID Qty: 60 RF: 2 Anoro Ellipta 62.5-25 mcg/actuation blister with device 1 inh INH Q24H Qty: 60 RF: 1 atorvastatin 10 mg tablet 10 mg PO QAM Qty: 90 RF: 3 (DME) CPAP Supplies Misc See Rx Instructions .ROUTE .MEDSUPPLY Qty: 1 RF: 0 pregabalin 150 mg capsule 150 mg PO BID 30 Days Qty: 60 RF: 5 docusate sodium [Colace] 100 mg capsule 100 mg PO BID Qty: 180 RF: 3 trazodone 100 mg tablet 200 mg PO HS RF: 0 quetiapine [Seroquel] 100 mg Tablet 100 mg PO QAM RF: 0 (DME) Oxygen Home Liters Per Minute See Rx Instructions .ROUTE .MEDSUPPLY Qty: 1 RF: 0 magnesium oxide 400 mg (241.3 mg magnesium) tablet 400 mg PO QAM RF: 0 potassium chloride 20 mEq tablet extended release 40 meq PO QAM RF: 0 hydroxyzine HCl 50 mg Tablet 50 mg PO DAILY PRN (Reason: Anxiety) RF: 0 Discontinued furosemide 40 mg tablet 80 mg PO BID Qty: 120 RF: 5 metoprolol succinate 100 mg tablet extended release 24 hr 150 mg PO QAM RF: 0 Discharge Orders: Discharge Order (Routine); Ordered 05/18/21 Ordered By: Amber Jackson/Other Patient Handouts: Prediabetes, 5 Steps for Eating Healthier Admission Data Admit Date/Time: 05/11/21 23:15 Attending Provider: Annmarie Cruz Admit Provider: Fabiano Barfield Primary Care Provider: Antonio Oliver V. Other Providers: Micheal Kenny ; Mariola Valentin ; Naeem Pelayo Supervising Physician Co-Signing Physician Notes Resident Physician Supervision Note: I independently interviewed and examined the patient and verified the eugene history and physical, reviewed labs and image studies and agree with resident Dr. Shields findings and care plan. Resident Activity Tracking Resident Involvement: Resident Care Provided Care Provided: Adult [facility] Medicine
== END 2021-05-18 17:27 | disposition home or self-care (01) | DRG 389 ==
LOC: ED 17:02 → SUATTDRO 23:15 → EDINP 23:15 → 2S 05-12 04:01 → 3N 05-13 17:15

== ENCOUNTER 2021-10-16 23:00 | Inpatient (IN) ==
--- NOTE | 2021-10-16 23:21 | Emergency Department Note ---
History of Present Illness General Chief complaint: Shortness of Breath/Dyspnea Stated complaint: SHORT OF BREATH Time Seen by Provider: 10/16/21 23:07 Source: patient Mode of arrival: EMS Limitations: no limitations History of Present Illness Provider complaint: shortness of breath Treatments prior to arrival: none This is a 60-year-old female presents emergency department complaining of i ncreased shortness of breath. Patient states has a history of cardiomyopathy and atrial fibrillation. Patient states over the last month they had slowly been decreasing her furosemide. She states as of 1 week ago she was down to only taking 1 pill once daily. Patient does take chronic anticoagulation. Patient has a pacemaker/AICD. Patient states she has felt increased shortness of breath, particular with exertion, increased lower extremity swelling. Patient is on fluid restrictions but states it is difficult for her to perform that on a daily basis. Patient states she is also supposed to weigh herself daily but has difficulty with her scale at home. Patient denies fevers or chills. Patient states she also does have some mild seasonal allergies this time year which gives her additional nasal congestion. She denies chest pain, vomiting, dizziness, change in bowel or bladder function. Patient states she sees Dr. Pelayo with cardiology. Patient states she typically wears 3 L of oxygen at home all the time, she has felt like she needed a little more over the last day. Pt seen during a time of high acuity and national emergency pandemic while wearing PPE. Home Medications Medication Instructions Recorded Confirmed Type trazodone 100 mg tablet 200 mg PO HS 10/07/18 08/31/21 History metformin 500 mg tablet 500 mg PO BID #60 tab 12/15/18 08/31/21 Rx quetiapine 100 mg tablet (Seroquel) 100 mg PO QAM 01/02/19 05/27/21 History Oxygen Home #1 ea 05/09/19 05/27/21 Rx docusate sodium 100 mg capsule 100 mg PO BID #180 cap 06/28/19 08/31/21 Rx (Colace) quetiapine 400 mg tablet (Seroquel) 400 mg PO HS tab 07/05/19 08/31/21 History CPAP Supplies #1 ea 07/12/19 05/27/21 Rx Portable Oxygen #1 ea 07/29/20 05/27/21 Rx sacubitril 24 mg-valsartan 26 mg 1 tab PO BID #60 tab 08/27/20 08/31/21 Rx tablet (Entresto) magnesium oxide 400 mg (241.3 mg 400 mg PO QAM 03/24/21 08/31/21 History magnesium) tablet potassium chloride 20 mEq 40 meq PO QAM 03/24/21 08/31/21 History tablet,extended release atorvastatin 10 mg tablet 10 mg PO QAM #90 tab 04/21/21 08/31/21 Rx hydroxyzine HCl 50 mg tablet 50 mg PO DAILY PRN 05/06/21 08/31/21 History rivaroxaban 20 mg tablet (Xarelto) 20 mg PO QAM #90 tab 05/19/21 08/31/21 Rx diclofenac sodium 1 % topical gel 2 g TOPICAL QID #100 g 05/27/21 05/27/21 Rx (Voltaren Arthritis Pain) tramadol 50 mg tablet 50 mg PO BID PRN #30 tab 05/27/21 08/31/21 Rx omeprazole 20 mg capsule,delayed 20 mg PO DAILYBB #90 cap 06/12/21 08/31/21 Rx release digoxin 125 mcg (0.125 mg) tablet 125 mcg PO QAM #90 tab 06/16/21 08/31/21 Rx pregabalin 150 mg capsule 150 mg PO BID 30 Days #60 cap 08/10/21 08/31/21 Rx metoprolol tartrate 100 mg tablet 100 mg PO DAILY 08/31/21 08/31/21 History furosemide 40 mg tablet 40 mg PO DAILY #30 tab 09/07/21 Rx umeclidinium 62.5 mcg-vilanterol 1 inh INH Q24H #3 inhaler 09/08/21 Rx 25 mcg/actuation powdr for inhalation (Anoro Ellipta) Allergies Allergy/AdvReac Type Severity Reaction Status Date / Time fentanyl Allergy Mild RASH,ITCHIN Verified 08/31/21 13:59 G Past Med/Surg History Medical History Adrenal adenoma Rt sided imaging 01/2020 Asthma Atrial fibrillation on xarelto/metoprolol/digoxin--follows with Dr. Pelayo Cellulitis of left abdominal wall CHF (congestive heart failure) 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% per echo 06/06/18; non-obstructive CAD per cath 2006 Chronic respiratory failure with hypoxia oxygen 3L n/c at all times COPD (chronic obstructive pulmonary disease) Depression Diabetes type 2, controlled patient denies having diabetes, does not want further testing even though she is prescribed Metformin Encounter for pre-operative examination Fracture of tibia and fibula GERD (gastroesophageal reflux disease) Glaucoma ? pt denies History of alcohol use History of tobacco abuse HTN (hypertension) 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 Lab test negative for COVID-19 virus Lightheadedness Memory impairment Morbid obesity Nausea and vomiting On anticoagulant therapy xarelto daily On home oxygen therapy 3 L N/C at all times Pericardial effusion Peripheral neuropathy Preop cardiovascular exam PTSD (post-traumatic stress disorder) Pulmonary embolism 2013 while living in [place] Pulmonary hypertension Restrictive lung disease Schizoaffective disorder Sepsis Severe mitral regurgitation Ventricular arrhythmia Vitamin D deficiency Surgical History AICD (automatic cardioverter/defibrillator) present meditronic History of cardiac cath x2?-- History of decompression of both ulnar nerves History of eye surgery left History of hernia surgery x2 History of incision and drainage (~09/30/20) left tibia History of open reduction and internal fixation (ORIF) procedure left tibia--hardware in place History of tooth extraction partial upper S/P ORIF (open reduction internal fixation) fracture ankle, left--hardware in place S/P tubal ligation Family History Mother , in her 70s Congestive heart failure (CHF) Breast cancer Lung cancer from this Father No problems noted. Other Hypertension No family history of adverse response to anesthesia Ulcerative colitis Denies family history of Colon cancer Ovarian cancer Prostate cancer Myocardial infarction Social History Smoking Status: Former smoker Tobacco Type: Cigarettes Years Smoked: 30; Second Hand Exposure: No; Hx Alcohol Use: Yes Alcohol type: hard liquor Alcohol Intake Frequency Comment: weekends only Hx Substance Use: No Preferred Language: Ivorian Communication Ability: Effective Visual Impairment: No Limitations Hearing Ability: Normal [employer] Sewer Required: No Beliefs That Will Affect Care: None marital status: marital status details: 5 kids Current Living Situation: Alone Current Living Situation Comment: personal caregivers 4 days a week for 2 hours a day. 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 in [employer] x 7 yr other: lives in [place] Feels Safe at Home: Yes Childhood Exposure to Second-Hand Smoke: Yes Dental Care, Regularly: No Physical Activity Frequency: Does not Exercise Assistive Devices: Glasses, Oxygen - Continuous and Walker Review of Systems A total of 10 systems reviewed and were otherwise negative All systems reviewed & are unremarkable except as noted in HPI & below Physical Exam Vital Signs Vital Signs - 24 hr 10/17/21 00:48 10/17/21 02:00 Pulse Rate [Right Finger] 107 H 103 H Respiratory Rate 26 H 24 Respiratory Effort / Characteristics Non-Labored Spontaneous Non-Labored Spontaneous Respiratory Depth Normal Normal Blood Pressure [Right Arm] 108/78 Blood Pressure Mean [Right Arm] 88 Pulse Oximetry 97 96 Oxygen Delivery Method Nasal Cannula Nasal Cannula Oxygen Flow Rate 4 4 GENERAL: alert, well appearing, well nourished, no distress, non-toxic EYE EXAM: normal conjunctiva, PERRL and EOM's grossly intact OROPHARYNX: no exudate, no erythema, lips, buccal mucosa, and tongue normal and mucous membranes are moist NECK: supple, no nuchal rigidity, no adenopathy, non-tender LUNGS: Clear to auscultation. Normal chest wall mechanics, no w/r/r HEART: no murmurs, S1 normal and S2 normal, healed incision noted to the left anterior superior chest wall consistent with pacer/AICD ABDOMEN: abdomen soft, non-tender, normo-active bowel sounds, no masses, no rebound or guarding. BACK: Back is symmetrical on inspection and there is no deformity, no midline tenderness, no CVA tenderness. SKIN: no rashes and no bruising UPPER EXTREMITIES: upper extremities are grossly normal. FROM, nml pulses b/l. LOWER EXTREMITIES: Trace b/l pitting edema. FROM, nml pulses b/l. NEURO EXAM: Normal sensorium, cranial nerves II-XII grossly intact, normal speech, no gross weakness of arms, no gross weakness of legs. Gross sensation intact. Course Course 0050: Updated on results. Patient requesting a dose of tramadol which she uses at home for pain. Administered Medications Atorvastatin Calcium (Atorvastatin 10 Mg Tab) [facility] [place] Stop: 11/16/21 08:59 Last Admin: 10/17/21 08:53 Dose: 10 mg Documented by: [id number] Digoxin (Digoxin 0.125 Mg Tab) 0.125 mg PO DAILY@1600 [facility] Stop: 11/16/21 15:59 Last Admin: 10/17/21 15:31 Dose: 0.125 mg Documented by: [id number] Docusate Sodium (Docusate Sodium 100 Mg Cap) 100 mg PO BID [facility] Stop: 11/16/21 08:59 Last Admin: 10/17/21 20:15 Dose: 100 mg Documented by: [id number] Admin: 10/17/21 08:53 Dose: 100 mg Documented by: [id number] Furosemide (Furosemide 40 Mg/4 Ml Vial) 40 mg IV BID [facility] Stop: 11/16/21 08:59 Last Admin: 10/17/21 20:16 Dose: 40 mg Documented by: [id number] Admin: 10/17/21 08:52 Dose: 40 mg Documented by: [id number] Magnesium Oxide (Magnesium Oxide 400 Mg Tab) 400 mg PO QAM [facility] Stop: 11/16/21 08:59 Last Admin: 10/17/21 08:53 Dose: 400 mg Documented by: [id number] Metoprolol Tartrate (Metoprolol Tartrate 25 Mg Tab) 25 mg PO BID [facility] Stop: 11/16/21 08:59 Last Admin: 10/17/21 20:17 Dose: 25 mg Documented by: [id number] Admin: 10/17/21 08:53 Dose: 25 mg Documented by: [id number] Pantoprazole Sodium (Pantoprazole 40 Mg Tab) 40 mg PO QAM [facility] Stop: 11/16/21 08:59 Last Admin: 10/17/21 08:53 Dose: 40 mg Documented by: [id number] Potassium Chloride (Potassium Chloride Crtab 20 Meq Tabcr) 40 meq PO QAM [facility] Stop: 11/16/21 08:59 Last Admin: 10/17/21 08:53 Dose: 40 meq Documented by: [id number] Pregabalin (Pregabalin 150 Mg Cap) 150 mg PO BID [facility] Stop: 11/16/21 08:59 Last Admin: 10/17/21 20:18 Dose: 150 mg Documented by: [id number] Admin: 10/17/21 09:00 Dose: 150 mg Documented by: [id number] Quetiapine Fumarate (Quetiapine Fumarate 200 Mg Tab) 400 mg PO HS [facility] Stop: 11/16/21 20:59 Last Admin: 10/17/21 20:18 Dose: 400 mg Documented by: [id number] Quetiapine Fumarate (Quetiapine Fumarate 100 Mg Tablet) 100 mg PO QAM [facility] Stop: 11/16/21 08:59 Last Admin: 10/17/21 08:53 Dose: 100 mg Documented by: [id number] Rivaroxaban (Rivaroxaban 20 Mg Tab) 20 mg PO QDD [facility] Stop: 11/16/21 16:29 Last Admin: 10/17/21 15:31 Dose: 20 mg Documented by: [id number] Sacubitril/Valsartan (Valsartan/Sacubitril 26/24mg Tab) 1 tab PO BID [facility] Stop: 11/16/21 08:59 Last Admin: 10/17/21 20:19 Dose: 1 tab Documented by: [id number] Admin: 10/17/21 08:53 Dose: 1 tab Documented by: [id number] Tramadol HCl (Tramadol Hcl 50 Mg Tablet) 50 mg PO BID PRN PRN Reason: Moderate Pain Stop: 11/16/21 03:36 Last Admin: 10/17/21 20:25 Dose: 50 mg Documented by: [id number] Admin: 10/17/21 17:27 Dose: 50 mg Documented by: [id number] Admin: 10/17/21 09:00 Dose: 50 mg Documented by: [id number] Trazodone HCl (Trazodone Hcl 100 Mg Tab) [address] [facility] Stop: 11/16/21 20:59 Last Admin: 10/17/21 20:18 Dose: 200 mg Documented by: [id number] Umeclidinium/Vilanterol (Umeclidinium/Vilanterol 62.5/25mcg 7 Puffs/Inhaler) 1 puffs INH DAILY [facility] Stop: 11/16/21 08:59 Last Admin: 10/17/21 08:52 Dose: 1 puffs Documented by: [id number] Discontinued Medications Furosemide (Furosemide 40 Mg/4 Ml Vial) 40 mg IV ONE ONE Stop: 10/17/21 00:37 Last Admin: 10/17/21 00:57 Dose: 40 mg Documented by: [id number] Insulin Aspart (Insulin Aspart Per Unit) 0 units SC ACHS [facility] Stop: 11/16/21 07:29 Last Admin: 10/17/21 11:58 Dose: Not Given Documented by: [id number] Admin: 10/17/21 08:00 Dose: Not Given Documented by: [id number] Sodium Chloride (Sodium Chloride 0.65% Na Soln 45 Ml ([place])) Confirm Administered Dose 225 sprays .ROUTE .STK-MED ONE Stop: 10/17/21 08:58 Last Admin: 10/17/21 09:04 Dose: 1 sprays Documented by: [id number] Tramadol HCl (Tramadol Hcl 50 Mg Tablet) 50 mg PO NOW STA Stop: 10/17/21 00:54 Last Admin: 10/17/21 00:57 Dose: 50 mg Documented by: [id number] Medical Decision Making Differential Diagnosis Differential diagnoses includes but is not limited to pneumonia, bronchitis, COPD/Asthma exacerbation, pneumothorax, pulmonary embolism, congestive heart failure, acute coronary syndrome Medical Records Attestation: I reviewed the patient's medical records. Home Medications Current Medication List: was personally reviewed by me Laboratory Data Attestation: I reviewed the patient's lab results. Result diagrams: 10/17/21 00:14 10/17/21 00:14 Lab Results 10/17/21 10/17/21 10/17/21 Range/Units 00:14 00:14 00:14 WBC 12.16 H (4.8-10.8) K/uL RBC 3.76 L (4.2-5.4) M/uL Hgb 10.8 L (12.0-16.0) g/dL Hct 33.0 L (37-47) % MCV 87.8 (80-100) fL MCH 28.7 (25-34) pg MCHC 32.7 (32-36) g/dL RDW Std Deviation 49.0 H (36.4-46.3) fL RDW Coeff of Logan 15.3 H (11.5-14.5) % Plt Count 302 (130-400) K/uL MPV 9.4 (7.4-10.4) fL Immature Gran % (Auto) 0.4 % Neut % (Auto) 73.5 % Lymph % (Auto) 18.2 % Rush % (Auto) 5.6 % Eos % (Auto) 2.1 % Baso % (Auto) 0.2 % Neut # (Auto) 8.94 H (1.4-6.5) K/uL Lymph # (Auto) 2.21 (1.2-3.4) K/uL Rush # (Auto) 0.68 H (0.11-0.59) K/uL Eos # (Auto) 0.25 (0-0.5) K/uL Baso # (Auto) 0.03 (0-0.2) K/uL Immature Gran # (Auto) 0.05 H (0.00-0.02) K/uL Absolute Nucleated RBC 0.05 H (0-0) K/uL Nucleated RBC % (auto) 0.4 % Sodium 139 (136-145) mmol/L Potassium 3.9 (3.5-5.1) mmol/L Chloride 101 (98-107) mmol/L Carbon Dioxide 28 (21-32) mmol/L Anion Gap 10 (3-11) BUN 13 (6-23) mg/dl Creatinine 0.83 (0.6-1.2) mg/dl Est Cr Clr Drug Dosing 100.4 ml/min Est GFR ( Amer) 89.5 ml/min Est GFR (Non-Af Amer) 77.2 ml/min BUN/Creatinine Ratio 15.7 (10-20) Glucose 111 H (70-99(Fasting)) mg/dl Calcium 9.9 (8.5-10.1) mg/dl Magnesium 2.0 (1.7-2.4) mg/dl Total Bilirubin 0.6 (0.2-1.0) mg/dl AST 12 L (13-39) U/L ALT 13 (7-52) U/L Alkaline Phosphatase 93 (34-104) U/L Troponin I High Sens 8.9 (0-14) pg/ml B-Natriuretic Peptide 312 H (0-100) pg/ml Total Protein 7.6 (6.0-8.3) gm/dl Albumin 3.8 (3.4-5.0) gm/dl Globulin 3.8 (2.5-4.0) gm/dl Albumin/Globulin Ratio 1.0 (0.9-2) Lipase 11 (11-82) U/L SARS-CoV-2, RNA, NAAT (NEGATIVE) 10/17/21 Range/Units 01:28 WBC (4.8-10.8) K/uL RBC (4.2-5.4) M/uL Hgb (12.0-16.0) g/dL Hct (37-47) % MCV (80-100) fL MCH (25-34) pg MCHC (32-36) g/dL RDW Std Deviation (36.4-46.3) fL RDW Coeff of Logan (11.5-14.5) % Plt Count (130-400) K/uL MPV (7.4-10.4) fL Immature Gran % (Auto) % Neut % (Auto) % Lymph % (Auto) % Rush % (Auto) % Eos % (Auto) % Baso % (Auto) % Neut # (Auto) (1.4-6.5) K/uL Lymph # (Auto) (1.2-3.4) K/uL Rush # (Auto) (0.11-0.59) K/uL Eos # (Auto) (0-0.5) K/uL Baso # (Auto) (0-0.2) K/uL Immature Gran # (Auto) (0.00-0.02) K/uL Absolute Nucleated RBC (0-0) K/uL Nucleated RBC % (auto) % Sodium (136-145) mmol/L Potassium (3.5-5.1) mmol/L Chloride (98-107) mmol/L Carbon Dioxide (21-32) mmol/L Anion Gap (3-11) BUN (6-23) mg/dl Creatinine (0.6-1.2) mg/dl Est Cr Clr Drug Dosing ml/min Est GFR ( Amer) ml/min Est GFR (Non-Af Amer) ml/min BUN/Creatinine Ratio (10-20) Glucose (70-99(Fasting)) mg/dl Calcium (8.5-10.1) mg/dl Magnesium (1.7-2.4) mg/dl Total Bilirubin (0.2-1.0) mg/dl AST (13-39) U/L ALT (7-52) U/L Alkaline Phosphatase (34-104) U/L Troponin I High Sens (0-14) pg/ml B-Natriuretic Peptide (0-100) pg/ml Total Protein (6.0-8.3) gm/dl Albumin (3.4-5.0) gm/dl Globulin (2.5-4.0) gm/dl Albumin/Globulin Ratio (0.9-2) Lipase (11-82) U/L SARS-CoV-2, RNA, NAAT NEGATIVE (NEGATIVE) Imaging Data My Impression: X-ray: I interpreted the following studies. Chest: A single view study of the chest was reviewed and was negative for focal infiltrate, or wide mediastinum. CM noted, b/l pulm edema with pleural effusions. ECG Data Attestation: I personally reviewed and interpreted this ECG as follows: Indication: + SOB/dyspnea Rate (beats per minute): 117 Rhythm: + atrial fibrillation ECG Intervals/blocks: + Normal QRS and + Normal QT ECG [place]: + Right axis deviation ECG ST segments: + Nonspecific ST abnormalities MDM Narrative An order was placed for continuous cardiac monitoring. The monitor shows a rate of _102_ with _a.fib_ rhythm. This is a 60-year-old female who presents due to concern for evolving CHF as her outpatient furosemide has been decreased over the course of the last month. Patient does notice a sense of increased dyspnea with exertion, and has increased usual home oxygen. Patient also states she feels as though she is beginning to swell in her lower extremities. Patient with no acute distress on my exam, vital signs stable, patient not hypoxic on 3 to 4 L via nasal cannula. Labs drawn and sent, EKG and chest x-ray performed. Chest x-ray consistent with evolving pulmonary edema, BNP elevated in her labs. Patient given dose of IV furosemide here. Patient updated on all results and was in agreement with plan for additional inpatient monitoring and treatment. Case discussed with the hospitalist. Impression & Plan Dyspnea, Oxygen dependent, Atrial fibrillation, CHF (congestive heart failure) Discharge Plan Visit Data Chief Complaint: Shortness of Breath/Dyspnea Stated Complaint: SHORT OF BREATH ED Provider: Breonna Box Discharge Problem: Dyspnea, Oxygen dependent, Atrial fibrillation, CHF (congestive heart failure) Patient Disposition: Admitted As Inpatient Condition: Fair Discharge Instructions Interventions: ED Discharge Assessment Last Done: 10/17/21 03:43
[2021-10-17 00:33] LABS: Basophils # (auto) 0.03 K/uL (0-0.2); Basophils % (auto) 0.2 %; Eosinophils # (auto) 0.25 K/uL (0-0.5); Eosinophils % (auto) 2.1 %; Hemoglobin 10.8 g/dL (12.0-16.0); Immature Granulocytes # (auto) 0.05 K/uL (0.00-0.02); Immature Granulocytes % (auto) 0.4 %; Lymphocytes # (auto) 2.21 K/uL (1.2-3.4); Lymphocytes % (auto) 18.2 %; Mean Corpuscular Hemoglobin 28.7 pg (25-34); Mean Corpuscular Hgb Conc 32.7 g/dL (32-36); Mean Corpuscular Volume 87.8 fL (80-100); Mean Platelet Volume 9.4 fL (7.4-10.4); Monocytes # (auto) 0.68 K/uL (0.11-0.59); Monocytes % (auto) 5.6 %; Neutrophils # (auto) 8.94 K/uL (1.4-6.5); Neutrophils % (auto) 73.5 %; Nucleated RBC # (auto) 0.05 K/uL (0-0); Nucleated RBC % (auto) 0.4 %; Platelet Count 302 K/uL (130-400); RDW Coefficient of Variation 15.3 % (11.5-14.5); Red Blood Count 3.76 M/uL (4.2-5.4); White Blood Count 12.16 K/uL (4.8-10.8)
[2021-10-17] MEDS ORDERED: FUROSEMIDE 40 MG/4 ML VIAL IV ONE (00:36)
[2021-10-17] MEDS ORDERED: traMADol HCL 50 MG TABLET PO STA (00:53)
[2021-10-17 01:19] LABS: Troponin I High Sensitivity 8.9 pg/ml (0-14)
[2021-10-17 01:21] LABS: Albumin Level 3.8 gm/dl (3.4-5.0); BUN Creatinine Ratio 15.7 (10-20); Bilirubin,Total 0.6 mg/dl (0.2-1.0); Calcium 9.9 mg/dl (8.5-10.1); Creatinine Clr Calc Pharmacy 100.4 ml/min; Est GFR (African American) 89.5 ml/min; Est GFR (Non-African American) 77.2 ml/min; Globulin 3.8 gm/dl (2.5-4.0); Potassium 3.9 mmol/L (3.5-5.1); Total Protein 7.6 gm/dl (6.0-8.3)
--- NOTE | 2021-10-17 02:15 | History & Physical Report ---
Date of Service October 17, 2021 Assessment & Plan (1) Acute on chronic respiratory failure with hypoxia: Plan: Acute on chronic respiratory failure with hypoxia/3 L oxygen dependency/permanent atrial fibrillation/hypertension/nonischemic cardiomyopathy/ICD- Given furosemide 40 mg IV in the ED Furosemide 40 mg IV twice daily Hold oral furosemide Continue digoxin, mag oxide, metoprolol tartrate with hold parameters, Entresto and Xarelto. Follow serial BMP and magnesium levels (2) Atrial fibrillation, permanent: Plan: See above (3) CHF exacerbation: Plan: See above (4) Oxygen dependent: Plan: See above (5) Atrial fibrillation: Plan: See above (6) Nonischemic cardiomyopathy: Plan: See above (7) ICD (implantable cardioverter-defibrillator) in place: Plan: See above (8) HTN (hypertension): Plan: See above (9) COPD, severe: Plan: Severe COPD/history of PE- 3 L oxygen dependency Continue usual inhalers DuoNebs every 4 hours as needed (10) History of pulmonary embolism: Plan: Continue Xarelto, for PE and atrial fibrillation (11) Diabetes type 2, controlled: Plan: Hold metformin Place on Accu-Cheks before meals and at bedtime NovoLog coverage per scale (12) Schizoaffective disorder: Plan: Schizoaffective disorder/bipolar disorder/PTSD Continue hydroxyzine, quetiapine and trazodone (13) GERD (gastroesophageal reflux disease): Plan: Continue omeprazole/pantoprazole (14) Post-traumatic stress disorder: Plan: See above History of Present Illness Chief Complaint: The patient presents to the emergency department with increasing shortness of breath over the past 1 to 2 days. Primary Care Provider: Antonio Oliver MD The patient is a 60-year-old female with a past medical history including permanent atrial fibrillation, small bowel obstruction, prediabetes, long-term anticoagulant use, ICD, nonischemic cardiomyopathy, sensory polyneuropathy, PTSD, bipolar disorder, fatty liver, severe COPD, gait difficulty, anxiety, A. fib with RVR, V. tach, B12 deficiency, hypertension, schizoaffective disorder, pulmonary hypertension, chronic respiratory failure with hypoxia on 3 L oxygen, and memory impairment. The patient reports that her furosemide has gradually been decreased over the past month from 80 mg twice a day, to 80 mg daily, and most recently 1 week ago to 40 mg daily. She as noted above, notes over the past 1 to 2 days increasing shortness of breath, presented to the ED for assessment. Chest x-ray shows CHF, patient was referred for evaluation for admission, and received furosemide 40 mg IV from the ED. Allergies Allergy/AdvReac Type Severity Reaction Status Date / Time fentanyl Allergy Mild RASH,ITCHIN Verified 08/31/21 13:59 G Home Medications Medication Instructions Recorded Confirmed Type trazodone 100 mg tablet 200 mg PO HS 10/07/18 08/31/21 History metformin 500 mg tablet 500 mg PO BID #60 tab 12/15/18 08/31/21 Rx quetiapine 100 mg tablet (Seroquel) 100 mg PO QAM 01/02/19 05/27/21 History Oxygen Home #1 ea 05/09/19 05/27/21 Rx docusate sodium 100 mg capsule 100 mg PO BID #180 cap 06/28/19 08/31/21 Rx (Colace) quetiapine 400 mg tablet (Seroquel) 400 mg PO HS tab 07/05/19 08/31/21 History CPAP Supplies #1 ea 07/12/19 05/27/21 Rx Portable Oxygen #1 ea 07/29/20 05/27/21 Rx sacubitril 24 mg-valsartan 26 mg 1 tab PO BID #60 tab 08/27/20 08/31/21 Rx tablet (Entresto) magnesium oxide 400 mg (241.3 mg 400 mg PO QAM 03/24/21 08/31/21 History magnesium) tablet potassium chloride 20 mEq 40 meq PO QAM 03/24/21 08/31/21 History tablet,extended release atorvastatin 10 mg tablet 10 mg PO QAM #90 tab 04/21/21 08/31/21 Rx hydroxyzine HCl 50 mg tablet 50 mg PO DAILY PRN 05/06/21 08/31/21 History rivaroxaban 20 mg tablet (Xarelto) 20 mg PO QAM #90 tab 05/19/21 08/31/21 Rx diclofenac sodium 1 % topical gel 2 g TOPICAL QID #100 g 05/27/21 05/27/21 Rx (Voltaren Arthritis Pain) tramadol 50 mg tablet 50 mg PO BID PRN #30 tab 05/27/21 08/31/21 Rx omeprazole 20 mg capsule,delayed 20 mg PO DAILYBB #90 cap 06/12/21 08/31/21 Rx release digoxin 125 mcg (0.125 mg) tablet 125 mcg PO QAM #90 tab 06/16/21 08/31/21 Rx pregabalin 150 mg capsule 150 mg PO BID 30 Days #60 cap 08/10/21 08/31/21 Rx metoprolol tartrate 100 mg tablet 100 mg PO DAILY 08/31/21 08/31/21 History furosemide 40 mg tablet 40 mg PO DAILY #30 tab 09/07/21 Rx umeclidinium 62.5 mcg-vilanterol 1 inh INH Q24H #3 inhaler 09/08/21 Rx 25 mcg/actuation powdr for inhalation (Anoro Ellipta) Past Med/Surg History Medical History Adrenal adenoma Rt sided imaging 01/2020 Asthma Atrial fibrillation on xarelto/metoprolol/digoxin--follows with Dr. Pelayo Cellulitis of left abdominal wall CHF (congestive heart failure) 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% per echo 06/06/18; non-obstructive CAD per cath 2006 Chronic respiratory failure with hypoxia oxygen 3L n/c at all times COPD (chronic obstructive pulmonary disease) Depression Diabetes type 2, controlled patient denies having diabetes, does not want further testing even though she is prescribed Metformin Encounter for pre-operative examination Fracture of tibia and fibula GERD (gastroesophageal reflux disease) Glaucoma ? pt denies History of alcohol use History of tobacco abuse HTN (hypertension) 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 Lab test negative for COVID-19 virus Lightheadedness Memory impairment Morbid obesity Nausea and vomiting On anticoagulant therapy xarelto daily On home oxygen therapy 3 L N/C at all times Pericardial effusion Peripheral neuropathy Preop cardiovascular exam PTSD (post-traumatic stress disorder) Pulmonary embolism 2013 while living in [place] Pulmonary hypertension Restrictive lung disease Schizoaffective disorder Sepsis Severe mitral regurgitation Ventricular arrhythmia Vitamin D deficiency Surgical History AICD (automatic cardioverter/defibrillator) present meditronic History of cardiac cath x2?-- History of decompression of both ulnar nerves History of eye surgery left History of hernia surgery x2 History of incision and drainage (~09/30/20) left tibia History of open reduction and internal fixation (ORIF) procedure left tibia--hardware in place History of tooth extraction partial upper S/P ORIF (open reduction internal fixation) fracture ankle, left--hardware in place S/P tubal ligation Family History Mother , in her 70s Congestive heart failure (CHF) Breast cancer Lung cancer from this Father No problems noted. Other Hypertension No family history of adverse response to anesthesia Ulcerative colitis Denies family history of Colon cancer Ovarian cancer Prostate cancer Myocardial infarction Social History Smoking Status: Former smoker Tobacco Type: Cigarettes Years Smoked: 30; Second Hand Exposure: No; Hx Alcohol Use: No Hx Substance Use: No Preferred Language: Croatian Communication Ability: Effective Visual Impairment: No Limitations Hearing Ability: Normal Production Clerks Supervisor Required: No Beliefs That Will Affect Care: None marital status: marital status details: 5 kids Current Living Situation: Alone Current Living Situation Comment: personal caregivers 4 days a week for 2 hours a day. 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; was in [employer] x 7 yr other: lives in [place] Feels Safe at Home: Yes Childhood Exposure to Second-Hand Smoke: Yes Dental Care, Regularly: No Physical Activity Frequency: Does not Exercise Assistive Devices: Oxygen - Continuous Review of Systems Review of Systems: The patient denies chest pain, palpitations, sore throat, fevers, chills, sweats, nausea, vomiting, diarrhea , constipation, abdominal pain, pelvic pain, blood in urine or stool, dysuria, urinary frequency or urgency, lightheadedness, dizziness, headache, memory loss, loss of consciousness, rash, abnormal bruising or bleeding, imbalance, focal weakness, numbness or tingling in arms or legs, generalized arthralgias or myalgias, back or neck pain, or night sweats. The review of systems is otherwise negative other than for that already noted above, and at least 10 systems have been reviewed. Physical Exam Physical Exam: The patient is awake, alert and oriented 3, well developed and well nourished, normocephalic and atraumatic, lying in bed and in no acute distress. HEENT--PERRL, EOMI, mucous membranes and oropharynx normal. Neck--supple. No JVD. No bruits. Thyroid normal, trachea midline, no adenopathy. Heart--normal S1 and S2. No murmurs, rubs or gallops. Lungs--crackles at the bases mcc up bilaterally. No respiratory distress, no accessory muscle use. Abdomen--normal bowel sounds and soft. Nontender. Nondistended. Obese Extremities--no cyanosis or clubbing. 2+ bilateral pretibial pitting edema Dermatologic--normal skin turgor, normal color, no abnormal lymph nodes, no rash. Neurologic--cranial nerves II through XII grossly intact. Rheumatologic--normal range of motion. Psychiatric--normal affect. Results & Data Results & Data ([facility]) Vital Signs (Past 12 Hours) Vital Signs Temp Pulse Pulse Resp BP BP Pulse Ox 10/17/21 02:00 103 H 24 96 10/17/21 00:48 107 H 26 H 108/78 97 10/16/21 23:05 37.2 C 102 H 15 129/90 95 Laboratory Results Laboratory Results WBC 12.16 K/uL (4.8-10.8) H 10/17/21 00:14 RBC 3.76 M/uL (4.2-5.4) L 10/17/21 00:14 Hgb 10.8 g/dL (12.0-16.0) L 10/17/21 00:14 Hct 33.0 % (37-47) L 10/17/21 00:14 MCV 87.8 fL (80-100) 10/17/21 00:14 MCH 28.7 pg (25-34) 10/17/21 00:14 MCHC 32.7 g/dL (32-36) 10/17/21 00:14 RDW Std Deviation 49.0 fL (36.4-46.3) H 10/17/21 00:14 RDW Coeff of [place] 15.3 % (11.5-14.5) H 10/17/21 00:14 Plt Count 302 K/uL (130-400) 10/17/21 00:14 MPV 9.4 fL (7.4-10.4) 10/17/21 00:14 Immature Gran % (Auto) 0.4 % 10/17/21 00:14 Neut % (Auto) 73.5 % 10/17/21 00:14 Lymph % (Auto) 18.2 % 10/17/21 00:14 [place] % (Auto) 5.6 % 10/17/21 00:14 Eos % (Auto) 2.1 % 10/17/21 00:14 Baso % (Auto) 0.2 % 10/17/21 00:14 Neut # (Auto) 8.94 K/uL (1.4-6.5) H 10/17/21 00:14 Lymph # (Auto) 2.21 K/uL (1.2-3.4) 10/17/21 00:14 [place] # (Auto) 0.68 K/uL (0.11-0.59) H 10/17/21 00:14 Eos # (Auto) 0.25 K/uL (0-0.5) 10/17/21 00:14 Baso # (Auto) 0.03 K/uL (0-0.2) 10/17/21 00:14 Immature Gran # (Auto) 0.05 K/uL (0.00-0.02) H 10/17/21 00:14 Absolute Nucleated RBC 0.05 K/uL (0-0) H 10/17/21 00:14 Nucleated RBC % (auto) 0.4 % 10/17/21 00:14 Sodium 139 mmol/L (136-145) 10/17/21 00:14 Potassium 3.9 mmol/L (3.5-5.1) 10/17/21 00:14 Chloride 101 mmol/L (98-107) 10/17/21 00:14 Carbon Dioxide 28 mmol/L (21-32) 10/17/21 00:14 Anion Gap 10 (3-11) 10/17/21 00:14 BUN 13 mg/dl (6-23) 10/17/21 00:14 Creatinine 0.83 mg/dl (0.6-1.2) 10/17/21 00:14 Est Cr Clr Drug Dosing 100.4 ml/min 10/17/21 00:14 Est GFR ( Amer) 89.5 ml/min 10/17/21 00:14 Est GFR (Non-Af Amer) 77.2 ml/min 10/17/21 00:14 BUN/Creatinine Ratio 15.7 (10-20) 10/17/21 00:14 Glucose 111 mg/dl (70-99(Fasting)) H 10/17/21 00:14 Calcium 9.9 mg/dl (8.5-10.1) 10/17/21 00:14 Magnesium 2.0 mg/dl (1.7-2.4) 10/17/21 00:14 Total Bilirubin 0.6 mg/dl (0.2-1.0) 10/17/21 00:14 AST 12 U/L (13-39) L 10/17/21 00:14 ALT 13 U/L (7-52) 10/17/21 00:14 Alkaline Phosphatase 93 U/L (34-104) 10/17/21 00:14 Troponin I High Sens 8.9 pg/ml (0-14) 10/17/21 00:14 B-Natriuretic Peptide 312 pg/ml (0-100) H 10/17/21 00:14 Total Protein 7.6 gm/dl (6.0-8.3) 10/17/21 00:14 Albumin 3.8 gm/dl (3.4-5.0) 10/17/21 00:14 Globulin 3.8 gm/dl (2.5-4.0) 10/17/21 00:14 Albumin/Globulin Ratio 1.0 (0.9-2) 10/17/21 00:14 Lipase 11 U/L (11-82) 10/17/21 00:14 SARS-CoV-2, RNA, NAAT NEGATIVE (NEGATIVE) 10/17/21 01:28 Code Status & VTE Plan Code Status Full code VTE Prophylaxis Plan VTE Prophylaxis will be ordered: Yes PG Care Time/CCT Total # of Minutes Spent Total Time Spent with Patient: Total time spent is greater than 50% in coordination of care (as documented) at patient's floor/unit and/or counseling patient: Coding Level of Care Code 22239 Initial Inpt Care Lvl 3 Diagnoses Acute on chronic respiratory failure with hypoxia J96.21 Atrial fibrillation, permanent I48.21 Post-traumatic stress disorder F43.10 Oxygen dependent Z99.81 Atrial fibrillation I48.91 Nonischemic cardiomyopathy I42.8 ICD (implantable cardioverter-defibrillator) in place Z95.810 COPD, severe J44.9 History of pulmonary embolism Z86.711 HTN (hypertension) I10 Hypertension type: essential hypertension Diabetes type 2, controlled E11.8 Diabetes mellitus filler leaf cutter long insulin use: without long-term use Diabetes mellitus complication status: with unspecified complications Schizoaffective disorder F25.0 Schizoaffective disorder type: bipolar GERD (gastroesophageal reflux disease) K21.9 Esophagitis presence: esophagitis presence not specified CHF exacerbation I50.9 (1) HTN (hypertension) Hypertension type: essential hypertension Qualified Code(s): I10 - Essential (primary) hypertension (2) Diabetes type 2, controlled Diabetes mellitus filler leaf cutter long insulin use: without long-term use Diabetes mellitus complication status: with unspecified complications Qualified Code(s): E11.8 - Type 2 diabetes mellitus with unspecified complications (3) Schizoaffective disorder Schizoaffective disorder type: bipolar Qualified Code(s): F25.0 - Schizoaffective disorder, bipolar type (4) GERD (gastroesophageal reflux disease) Esophagitis presence: esophagitis presence not specified Qualified Code(s): K21.9 - Gastro-esophageal reflux disease without esophagitis
[2021-10-17] MEDS ORDERED: ALBUT/IPRATROP 3MG/0.5MG NEB 3 ML VIAL NEB PRN (03:31)
[2021-10-17] MEDS ORDERED: GLUCAGON FOR INJ 1 MG VIAL SQ PRN (03:37)
[2021-10-17] MEDS ORDERED: GLUCOSE 40% GEL 15 GM TUBE PO PRN (03:37)
[2021-10-17] MEDS ORDERED: CARBOHYDRATES FOR HYPOGLYCEMIA PO PRN (03:37)
[2021-10-17] MEDS ORDERED: ONDANSETRON INJ 2 MG/ML 2 ML VIAL IV PRN (03:37)
[2021-10-17] MEDS ORDERED: DEXTROSE 50% 50 ML SYRINGE IV PRN (03:37)
[2021-10-17] MEDS ORDERED: GLUCOSE 10 TABS/TUBE PO PRN (03:37)
[2021-10-17] MEDS ORDERED: ACETAMINOPHEN 325 MG TAB PO PRN (03:37)
[2021-10-17 07:53] LABS: Estimated Average Glucose 143 mg/dl; Hemoglobin A1C 6.6 % (4.5-5.6)
[2021-10-17] MEDS: INSULIN ASPART PER UNIT SC SCH ×2 (08:00→11:58)
[2021-10-17] MEDS: FUROSEMIDE 40 MG/4 ML VIAL IV SCH ×2 (08:52→20:16)
[2021-10-17] MEDS: UMECLIDINIUM/VILANTEROL 62.5/25MCG 7 PUFFS/INHALER INH SCH (08:52)
[2021-10-17] MEDS: DOCUSATE SODIUM 100 MG CAP PO SCH ×2 (08:53→20:15)
[2021-10-17] MEDS: PANTOprazole 40 MG TAB PO SCH (08:53)
[2021-10-17] MEDS: ATORVASTATIN 10 MG TAB PO SCH (08:53)
[2021-10-17] MEDS: POTASSIUM CHLORIDE CRTAB 20 MEQ TABCR PO SCH (08:53)
[2021-10-17] MEDS: VALSARTAN/SACUBITRIL 26/24MG TAB PO SCH ×2 (08:53→20:19)
[2021-10-17] MEDS: METOPROLOL TARTRATE 25 MG TAB PO SCH ×2 (08:53→20:17)
[2021-10-17] MEDS: QUEtiapine FUMARATE 100 MG TABLET PO SCH (08:53)
[2021-10-17] MEDS: MAGNESIUM OXIDE 400 MG TAB PO SCH (08:53)
[2021-10-17] MEDS ORDERED: SODIUM CHLORIDE 0.65% NA SOLN 45 ML (OCEAN) ONE (08:57)
[2021-10-17] MEDS: traMADol HCL 50 MG TABLET PO PRN ×3 (09:00→20:25)
[2021-10-17] MEDS: PREGABALIN 150 MG CAP PO SCH ×2 (09:00→20:18)
--- NOTE | 2021-10-17 09:34 | XRay Report ---
XR chest 1V portable HISTORY: Shortness of breath. COMPARISON: Chest 05/14/2021. FINDINGS: No pneumothorax. The heart remains enlarged. Left-sided pacemaker/defibrillator. There is i nterval progression of the pulmonary edema and small moderate bilateral pleural effusions. Patchy bib asilar densities have also progressed. There are old, healed left-sided rib fractures. IMPRESSION: 1. Interval progression of the pulmonary edema and small to moderate bilateral pleural effusions. 2. Patchy bibasilar densities have also progressed and may represent atelectasis from the pleural eff usions or a pneumonia. ACT 112: Negative or not required by law. Electronically signed by: Tyler Davis M.D. 10/17/2021 9:32 AM
--- NOTE | 2021-10-17 10:11 | Electrocardiogram Report ---
Test Reason : Blood Pressure : / mmHG Vent. Rate : 117 BPM Atrial Rate : 108 BPM P-R Int : 000 ms QRS Dur : 108 ms QT Int : 280 ms P-R-T Axes : 000 105 -58 degrees QTc Int : 390 ms Poor data quality, interpretation may be adversely affected Atrial fibrillation with rapid ventricular response Rightward axis Low voltage QRS Non-specific intra-ventricular conduction delay Abnormal ECG When compared with ECG of 11-MAY-2021 17:29, QRS axis Shifted right Confirmed by Matthew Dahl ([id number]) on 10/17/2021 10:11:25 AM Referred By: REFERRED SELF Confirmed By:Matthew Dahl
--- NOTE | 2021-10-17 12:36 | Hospitalist Progress Note ---
Date of Service October 17, 2021 Assessment & Plan (1) CHF exacerbation: Plan: Acute on chronic systolic CHF. Likely due to gradual decreases of her Lasix without any change in diet/salt intake. She reports going down to Lasix 40 mg PO daily about 1 month prior. - Continue Lasix 40 mg IV BID -> Dry weight ~260 lbs per prior HF note. - Continue home beta-julee, Entresto (2) Acute on chronic respiratory failure with hypoxia: Plan: Due to CHF. - Monitor (3) Atrial fibrillation, permanent: Plan: Rates are presently 90 - 100. - Continue home beta-julee, digoxin - Continue home rivaroxaban (4) Oxygen dependent: Plan: At baseline on home O2. (5) Nonischemic cardiomyopathy: Plan: Last echo in 09/2020 was 20 - 25%. - See above (6) ICD (implantable cardioverter-defibrillator) in place: Plan: See above (7) HTN (hypertension): Plan: BP today is 90/60. - Meds as above (8) COPD, severe: Plan: Severe COPD/history of PE. 3 L oxygen dependency. - Continue usual inhalers - DuoNebs every 4 hours as needed (9) History of pulmonary embolism: Plan: Continue Xarelto, for PE and atrial fibrillation (10) Diabetes type 2, controlled: Plan: A1c was 6.6% this admission. - Hold metformin - Placed on Accu-Cheks before meals and at bedtime NovoLog coverage per scale -> Patient is presently refusing as she reports she does not have diabetes. Will discuss with patient further. (11) Schizoaffective disorder: Plan: Schizoaffective disorder/bipolar disorder/PTSD. Patient presently without SI/HI. No bonnie or depression noted today. - Continue hydroxyzine, quetiapine and trazodone (12) GERD (gastroesophageal reflux disease): Plan: - Continue omeprazole/pantoprazole (13) Post-traumatic stress disorder: Plan: See above Admission and Anticipated Discharge Date Admission Date: October 17, 2021 Subjective Doing well today. Feels like her breathing is better (though has not exerted herself to find out) and feels like her abdomen is less swollen. Reports no fevers/chills, chest pain, shortness of breath, abdominal pain, nausea, or vomiting. Physical Exam Constitutional: WD/WN, vitals as above Eyes: EOM intact bilaterally; no conjunctival abnormality ENMT: external ear and nose normal, oropharynx normal Neck: trachea midline, no thyromegaly normal visual inspection Respiratory: normal respiratory effort, lungs clear to auscultation no respiratory distress Cardiovascular: RRR, no murmur, no edema Gastrointestinal (Abdomen): Inspection/Auscultation: abdomen normal to inspection; abdomen not distended Percussion/Palpation: abdomen soft; abdomen nontender, no guarding and abdomen not rigid Musculoskeletal: no cyanosis or clubbing, extremities motor strength 5/5 Skin: no rashes, warm and dry Neurologic: moves all extremities and awake Psychiatric: Orientation: alert, oriented to person and cooperative Results & Data Results & Data ([facility]) Vital Signs (Past 12 Hours) Vital Signs Temp Pulse Pulse Resp BP BP Pulse Ox 10/17/21 11:38 36.9 C 78 20 90/61 L 97 10/17/21 07:40 101 H 10/17/21 07:27 36.9 C 95 H 20 103/70 97 10/17/21 03:50 101 H 10/17/21 03:45 36.4 C L 101 H 22 111/80 98 10/17/21 03:43 92 H 26 H 99/65 L 96 10/17/21 03:37 10/17/21 03:00 89 22 97 10/17/21 02:00 103 H 24 96 10/17/21 00:48 107 H 26 H 108/78 97 Pulse Ox 10/17/21 11:38 10/17/21 07:40 10/17/21 07:27 10/17/21 03:50 10/17/21 03:45 10/17/21 03:43 10/17/21 03:37 96 10/17/21 03:00 10/17/21 02:00 10/17/21 00:48 PG Care Time/CCT Total # of Minutes Spent Total Time Spent with Patient: Total time spent is greater than 50% in coordination of care (as documented) at patient's floor/unit and/or counseling patient: Coding Level of Care Code 73229 Subseq Hosp Care Lvl 3 Diagnoses Acute on chronic respiratory failure with hypoxia J96.21 Atrial fibrillation, permanent I48.21 CHF exacerbation I50.9 Oxygen dependent Z99.81 Nonischemic cardiomyopathy I42.8 ICD (implantable cardioverter-defibrillator) in place Z95.810 HTN (hypertension) I10 Hypertension type: essential hypertension COPD, severe J44.9 History of pulmonary embolism Z86.711 Diabetes type 2, controlled E11.8 Diabetes mellitus chcf insulin use: without chcf use Diabetes mellitus complication status: with unspecified complications Schizoaffective disorder F25.0 Schizoaffective disorder type: bipolar GERD (gastroesophageal reflux disease) K21.9 Esophagitis presence: esophagitis presence not specified Post-traumatic stress disorder F43.10 (1) HTN (hypertension) Hypertension type: essential hypertension Qualified Code(s): I10 - Essential (primary) hypertension (2) Diabetes type 2, controlled Diabetes mellitus chcf insulin use: without chcf use Diabetes mellitus complication status: with unspecified complications Qualified Code(s): E11.8 - Type 2 diabetes mellitus with unspecified complications (3) Schizoaffective disorder Schizoaffective disorder type: bipolar Qualified Code(s): F25.0 - Schizoaffective disorder, bipolar type (4) GERD (gastroesophageal reflux disease) Esophagitis presence: esophagitis presence not specified Qualified Code(s): K21.9 - Gastro-esophageal reflux disease without esophagitis
[2021-10-17] MEDS: DIGOXIN 0.125 MG TAB PO SCH (15:31)
[2021-10-17] MEDS: RIVAROXABAN 20 MG TAB PO SCH (15:31)
[2021-10-17] MEDS: traZODone HCL 100 MG TAB PO SCH (20:18)
[2021-10-17] MEDS: QUEtiapine FUMARATE 200 MG TAB PO SCH (20:18)
[2021-10-18 06:58] LABS: Hemoglobin 10.8 g/dL (12.0-16.0); Mean Corpuscular Hgb Conc 31.8 g/dL (32-36); Mean Corpuscular Volume 88.1 fL (80-100); Mean Platelet Volume 9.5 fL (7.4-10.4); Platelet Count 294 K/uL (130-400); RDW Coefficient of Variation 15.5 % (11.5-14.5); RDW Standard Deviation 49.7 fL (36.4-46.3); Red Blood Count 3.86 M/uL (4.2-5.4); White Blood Count 9.63 K/uL (4.8-10.8)
[2021-10-18 07:30] LABS: Potassium 4.2 mmol/L (3.5-5.1)
[2021-10-18 07:31] LABS: BUN Creatinine Ratio 16.7 (10-20); Calcium 9.5 mg/dl (8.5-10.1); Creatinine Clr Calc Pharmacy 86.4 ml/min; Est GFR (Non-African American) 64.7 ml/min; Magnesium 2.1 mg/dl (1.7-2.4)
[2021-10-18] MEDS: DOCUSATE SODIUM 100 MG CAP PO SCH ×2 (08:19→20:55)
[2021-10-18] MEDS: UMECLIDINIUM/VILANTEROL 62.5/25MCG 7 PUFFS/INHALER INH SCH (08:19)
[2021-10-18] MEDS: VALSARTAN/SACUBITRIL 26/24MG TAB PO SCH ×2 (08:19→20:58)
[2021-10-18] MEDS: POTASSIUM CHLORIDE CRTAB 20 MEQ TABCR PO SCH (08:20)
[2021-10-18] MEDS: PANTOprazole 40 MG TAB PO SCH (08:20)
[2021-10-18] MEDS: ATORVASTATIN 10 MG TAB PO SCH (08:20)
[2021-10-18] MEDS: MAGNESIUM OXIDE 400 MG TAB PO SCH (08:20)
[2021-10-18] MEDS: FUROSEMIDE 40 MG/4 ML VIAL IV SCH ×2 (08:22→16:28)
[2021-10-18] MEDS: METOPROLOL TARTRATE 25 MG TAB PO SCH ×2 (08:22→20:56)
[2021-10-18] MEDS: PREGABALIN 150 MG CAP PO SCH ×2 (08:27→21:07)
[2021-10-18] MEDS: QUEtiapine FUMARATE 100 MG TABLET PO SCH (09:16)
--- NOTE | 2021-10-18 12:47 | Hospitalist Progress Note ---
Date of Service October 18, 2021 Assessment & Plan (1) CHF exacerbation: Plan: Acute on chronic systolic CHF. Likely due to gradual decreases of her Lasix without any change in diet/salt intake. She reports going down to Lasix 40 mg PO daily about 1 month prior. - Continue Lasix IV BID -> Dry weight ~260 lbs per prior HF note. - Continue home beta-julee, Entresto -> Weight today is 268 lbs. Will increase Lasix dose to 60 mg. Per RN, only had about 500 mL out after her 40 mg dose. (2) Acute on chronic respiratory failure with hypoxia: Plan: Due to CHF. - Monitor (3) Atrial fibrillation, permanent: Plan: Rates are presently 80 - 100. - Continue home beta-julee, digoxin - Continue home rivaroxaban (4) Oxygen dependent: Plan: At baseline on home O2. (5) Nonischemic cardiomyopathy: Plan: Last echo in 09/2020 was 20 - 25%. - See above (6) ICD (implantable cardioverter-defibrillator) in place: Plan: See above (7) HTN (hypertension): Plan: BP today is 100/70. - Meds as above (8) COPD, severe: Plan: Severe COPD/history of PE. 3 L oxygen dependency. - Continue usual inhalers - DuoNebs every 4 hours as needed (9) History of pulmonary embolism: Plan: Continue Xarelto, for PE and atrial fibrillation (10) Diabetes type 2, controlled: Plan: A1c was 6.6% this admission. - Hold metformin - Placed on Accu-Cheks before meals and at bedtime NovoLog coverage per scale -> Patient is presently refusing as she reports she does not have diabetes. Will discuss with patient further. (11) Schizoaffective disorder: Plan: Schizoaffective disorder/bipolar disorder/PTSD. Patient presently without SI/HI. No bonnie or depression noted today. - Continue hydroxyzine, quetiapine and trazodone (12) GERD (gastroesophageal reflux disease): Plan: - Continue omeprazole/pantoprazole (13) Post-traumatic stress disorder: Plan: See above Admission and Anticipated Discharge Date Admission Date: October 17, 2021 Subjective Feeling some better today, but has not been up and walked yet. No edema in legs. Reports no fevers/chills, chest pain, shortness of breath, abdominal pain, nausea, or vomiting. Physical Exam Constitutional: WD/WN, vitals as above Eyes: EOM intact bilaterally; no conjunctival abnormality ENMT: external ear and nose normal, oropharynx normal Neck: trachea midline, no thyromegaly normal visual inspection Respiratory: normal respiratory effort, lungs clear to auscultation no respiratory distress Cardiovascular: RRR, no murmur, no edema Gastrointestinal (Abdomen): Inspection/Auscultation: abdomen normal to inspection; abdomen not distended Percussion/Palpation: abdomen soft; abdomen nontender, no guarding and abdomen not rigid Musculoskeletal: no cyanosis or clubbing, extremities motor strength 5/5 Skin: no rashes, warm and dry Neurologic: moves all extremities and awake Psychiatric: Orientation: alert, oriented to person and cooperative Results & Data Results & Data ([facility]) Vital Signs (Past 12 Hours) Vital Signs Temp Pulse Pulse Resp BP Pulse Ox Pulse Ox 10/18/21 11:27 36.7 C 90 20 107/73 96 10/18/21 08:00 36.6 C 86 20 96/54 L 99 10/18/21 07:57 85 10/18/21 03:37 97 10/18/21 03:16 36.3 C L 85 20 100/69 96 PG Care Time/CCT Total # of Minutes Spent Total Time Spent with Patient: Total time spent is greater than 50% in coordination of care (as documented) at patient's floor/unit and/or counseling patient: Coding Level of Care Code 82827 Subseq Hosp Care Lvl 2 Diagnoses CHF exacerbation I50.9 Acute on chronic respiratory failure with hypoxia J96.21 Atrial fibrillation, permanent I48.21 Oxygen dependent Z99.81 Nonischemic cardiomyopathy I42.8 ICD (implantable cardioverter-defibrillator) in place Z95.810 HTN (hypertension) I10 Hypertension type: essential hypertension COPD, severe J44.9 History of pulmonary embolism Z86.711 Diabetes type 2, controlled E11.8 Diabetes mellitus clinical dietician insulin use: without clinical dietician use Diabetes mellitus complication status: with unspecified complications Schizoaffective disorder F25.0 Schizoaffective disorder type: bipolar GERD (gastroesophageal reflux disease) K21.9 Esophagitis presence: esophagitis presence not specified Post-traumatic stress disorder F43.10 (1) HTN (hypertension) Hypertension type: essential hypertension Qualified Code(s): I10 - Essential (primary) hypertension (2) Diabetes type 2, controlled Diabetes mellitus clinical dietician insulin use: without clinical dietician use Diabetes mellitus complication status: with unspecified complications Qualified Code(s): E11.8 - Type 2 diabetes mellitus with unspecified complications (3) Schizoaffective disorder Schizoaffective disorder type: bipolar Qualified Code(s): F25.0 - Schizoaffective disorder, bipolar type (4) GERD (gastroesophageal reflux disease) Esophagitis presence: esophagitis presence not specified Qualified Code(s): K21.9 - Gastro-esophageal reflux disease without esophagitis
[2021-10-18] MEDS: traMADol HCL 50 MG TABLET PO PRN ×2 (13:26→21:07)
[2021-10-18] MEDS: DIGOXIN 0.125 MG TAB PO SCH (16:28)
[2021-10-18] MEDS: RIVAROXABAN 20 MG TAB PO SCH (16:28)
[2021-10-18] MEDS: QUEtiapine FUMARATE 200 MG TAB PO SCH (20:56)
[2021-10-18] MEDS: traZODone HCL 100 MG TAB PO SCH (20:56)
[2021-10-19 05:59] LABS: Hematocrit (blood only) 32.2 % (37-47); Hemoglobin 10.3 g/dL (12.0-16.0); Mean Corpuscular Hemoglobin 28.1 pg (25-34); Mean Corpuscular Volume 87.7 fL (80-100); Mean Platelet Volume 9.3 fL (7.4-10.4); Platelet Count 301 K/uL (130-400); RDW Coefficient of Variation 15.2 % (11.5-14.5); RDW Standard Deviation 48.7 fL (36.4-46.3); Red Blood Count 3.67 M/uL (4.2-5.4); White Blood Count 8.77 K/uL (4.8-10.8)
[2021-10-19 06:40] LABS: Calcium 9.3 mg/dl (8.5-10.1); Creatinine Clr Calc Pharmacy 106.6 ml/min; Est GFR (Non-African American) 81.9 ml/min; Magnesium 2.1 mg/dl (1.7-2.4); Potassium 4.1 mmol/L (3.5-5.1)
[2021-10-19] MEDS: UMECLIDINIUM/VILANTEROL 62.5/25MCG 7 PUFFS/INHALER INH SCH (08:31)
[2021-10-19] MEDS: PANTOprazole 40 MG TAB PO SCH (08:32)
[2021-10-19] MEDS: METOPROLOL TARTRATE 25 MG TAB PO SCH ×2 (08:32→21:22)
[2021-10-19] MEDS: POTASSIUM CHLORIDE CRTAB 20 MEQ TABCR PO SCH (08:32)
[2021-10-19] MEDS: QUEtiapine FUMARATE 100 MG TABLET PO SCH (08:33)
[2021-10-19] MEDS: ATORVASTATIN 10 MG TAB PO SCH (08:33)
[2021-10-19] MEDS: MAGNESIUM OXIDE 400 MG TAB PO SCH (08:33)
[2021-10-19] MEDS: VALSARTAN/SACUBITRIL 26/24MG TAB PO SCH ×2 (08:33→21:20)
[2021-10-19] MEDS: DOCUSATE SODIUM 100 MG CAP PO SCH ×2 (08:34→21:20)
[2021-10-19] MEDS: PREGABALIN 150 MG CAP PO SCH ×2 (08:39→21:29)
[2021-10-19] MEDS: traMADol HCL 50 MG TABLET PO PRN ×2 (09:03→21:28)
[2021-10-19] MEDS: FUROSEMIDE 40 MG/4 ML VIAL IV SCH ×2 (09:03→16:43)
[2021-10-19] MEDS ORDERED: FUROSEMIDE INJ 20 MG/2 ML VIAL IV ONE (10:02)
--- NOTE | 2021-10-19 12:06 | Hospitalist Progress Note ---
Date of Service October 19, 2021 Assessment & Plan (1) CHF exacerbation: Plan: Acute on chronic systolic CHF. Likely due to gradual decreases of her Lasix without any change in diet/salt intake. She reports going down to Lasix 40 mg PO daily about 1 month prior. - Continue Lasix IV BID -> Dry weight ~260 lbs per prior HF note. - Continue home beta-julee, Entresto -> Weight today is 270 lbs. Actually up. I did increase Lasix to 80 mg IV (though she had ~900 mL with the 60 mg dose last evening). Did consult Catalina Almanza to help with dosing of diuretics. (2) Acute on chronic respiratory failure with hypoxia: Plan: Due to CHF. - Monitor (3) Atrial fibrillation, permanent: Plan: Rates are presently 80 - 100. - Continue home beta-julee, digoxin - Continue home rivaroxaban (4) Oxygen dependent: Plan: At baseline on home O2. (5) Nonischemic cardiomyopathy: Plan: Last echo in 09/2020 was 20 - 25%. - See above (6) ICD (implantable cardioverter-defibrillator) in place: Plan: See above (7) HTN (hypertension): Plan: BP today is 110/70. - Meds as above (8) COPD, severe: Plan: Severe COPD/history of PE. 3 L oxygen dependency. - Continue usual inhalers - DuoNebs every 4 hours as needed (9) History of pulmonary embolism: Plan: Continue Xarelto, for PE and atrial fibrillation (10) Diabetes type 2, controlled: Plan: A1c was 6.6% this admission. - Hold metformin - Placed on Accu-Cheks before meals and at bedtime NovoLog coverage per scale -> Patient is presently refusing as she reports she does not have diabetes. (11) Schizoaffective disorder: Plan: Schizoaffective disorder/bipolar disorder/PTSD. Patient presently without SI/HI. No bonnie or depression noted today. - Continue hydroxyzine, quetiapine and trazodone (12) GERD (gastroesophageal reflux disease): Plan: - Continue omeprazole/pantoprazole (13) Post-traumatic stress disorder: Plan: See above Admission and Anticipated Discharge Date Admission Date: October 17, 2021 Subjective Feeling ok today. Still some dyspnea on exertion. Abdomen feels a bit tighter. Reports no fevers/chills, chest pain, shortness of breath, abdominal pain, nausea, or vomiting. Physical Exam Constitutional: WD/WN, vitals as above Eyes: EOM intact bilaterally; no conjunctival abnormality ENMT: external ear and nose normal, oropharynx normal Neck: trachea midline, no thyromegaly normal visual inspection Respiratory: normal respiratory effort, lungs clear to auscultation no respiratory distress Cardiovascular: RRR, no murmur, no edema Gastrointestinal (Abdomen): Inspection/Auscultation: abdomen normal to inspection; abdomen not distended Percussion/Palpation: abdomen soft; abdomen nontender, no guarding and abdomen not rigid Musculoskeletal: no cyanosis or clubbing, extremities motor strength 5/5 Skin: no rashes, warm and dry Neurologic: moves all extremities and awake Psychiatric: Orientation: alert, oriented to person and cooperative Results & Data Results & Data ([facility]) Vital Signs (Past 12 Hours) Vital Signs Temp Pulse Pulse Pulse Resp BP Pulse Ox 10/19/21 11:55 36.4 C L 96 H 16 111/76 96 10/19/21 08:24 36.9 C 100 H 16 105/69 99 10/19/21 04:11 36.5 C 79 18 102/58 L 96 10/19/21 03:00 10/19/21 00:21 88 Pulse Ox 10/19/21 11:55 10/19/21 08:24 10/19/21 04:11 10/19/21 03:00 95 10/19/21 00:21 PG Care Time/CCT Total # of Minutes Spent Total Time Spent with Patient: Total time spent is greater than 50% in coordination of care (as documented) at patient's floor/unit and/or counseling patient: Coding Level of Care Code 69059 Subseq Hosp Care Lvl 2 Diagnoses CHF exacerbation I50.9 Acute on chronic respiratory failure with hypoxia J96.21 Atrial fibrillation, permanent I48.21 Oxygen dependent Z99.81 Nonischemic cardiomyopathy I42.8 ICD (implantable cardioverter-defibrillator) in place Z95.810 HTN (hypertension) I10 Hypertension type: essential hypertension COPD, severe J44.9 History of pulmonary embolism Z86.711 Diabetes type 2, controlled E11.8 Diabetes mellitus termite technician insulin use: without termite technician use Diabetes mellitus complication status: with unspecified complications Schizoaffective disorder F25.0 Schizoaffective disorder type: bipolar GERD (gastroesophageal reflux disease) K21.9 Esophagitis presence: esophagitis presence not specified Post-traumatic stress disorder F43.10 (1) HTN (hypertension) Hypertension type: essential hypertension Qualified Code(s): I10 - Essential (primary) hypertension (2) Diabetes type 2, controlled Diabetes mellitus assisted insulin use: without assisted use Diabetes mellitus complication status: with unspecified complications Qualified Code(s): E11.8 - Type 2 diabetes mellitus with unspecified complications (3) Schizoaffective disorder Schizoaffective disorder type: bipolar Qualified Code(s): F25.0 - Schizoaffective disorder, bipolar type (4) GERD (gastroesophageal reflux disease) Esophagitis presence: esophagitis presence not specified Qualified Code(s): K21.9 - Gastro-esophageal reflux disease without esophagitis
[2021-10-19] MEDS: DIGOXIN 0.125 MG TAB PO SCH (15:38)
[2021-10-19] MEDS: RIVAROXABAN 20 MG TAB PO SCH (16:16)
[2021-10-19] MEDS: POLYETHYLENE (MIRALAX) 17 GM PACK PO SCH (20:35)
[2021-10-19] MEDS: traZODone HCL 100 MG TAB PO SCH (21:20)
[2021-10-19] MEDS: QUEtiapine FUMARATE 200 MG TAB PO SCH (21:21)
[2021-10-19] MEDS: hydrOXYzine HCl 25 MG TAB PO PRN (21:28)
[2021-10-20 05:54] LABS: Hematocrit (blood only) 33.2 % (37-47); Hemoglobin 10.7 g/dL (12.0-16.0); Mean Corpuscular Hemoglobin 28.4 pg (25-34); Mean Corpuscular Hgb Conc 32.2 g/dL (32-36); Mean Corpuscular Volume 88.1 fL (80-100); Mean Platelet Volume 9.4 fL (7.4-10.4); Platelet Count 326 K/uL (130-400); RDW Coefficient of Variation 15.1 % (11.5-14.5); RDW Standard Deviation 48.6 fL (36.4-46.3); Red Blood Count 3.77 M/uL (4.2-5.4); White Blood Count 8.44 K/uL (4.8-10.8)
[2021-10-20 06:27] LABS: BUN Creatinine Ratio 18.5 (10-20); Calcium 9.4 mg/dl (8.5-10.1); Creatinine Clr Calc Pharmacy 90.7 ml/min; Est GFR (Non-African American) 68.2 ml/min; Magnesium 2.2 mg/dl (1.7-2.4)
[2021-10-20] MEDS: POLYETHYLENE (MIRALAX) 17 GM PACK PO SCH (08:00)
[2021-10-20] MEDS: PREGABALIN 150 MG CAP PO SCH ×2 (08:08→20:56)
[2021-10-20] MEDS: ATORVASTATIN 10 MG TAB PO SCH (08:08)
[2021-10-20] MEDS: PANTOprazole 40 MG TAB PO SCH (08:08)
[2021-10-20] MEDS: QUEtiapine FUMARATE 100 MG TABLET PO SCH (08:08)
[2021-10-20] MEDS: VALSARTAN/SACUBITRIL 26/24MG TAB PO SCH ×2 (08:08→19:51)
[2021-10-20] MEDS: DOCUSATE SODIUM 100 MG CAP PO SCH ×2 (08:08→19:48)
[2021-10-20] MEDS: MAGNESIUM OXIDE 400 MG TAB PO SCH (08:08)
[2021-10-20] MEDS: POTASSIUM CHLORIDE CRTAB 20 MEQ TABCR PO SCH (08:08)
[2021-10-20] MEDS: UMECLIDINIUM/VILANTEROL 62.5/25MCG 7 PUFFS/INHALER INH SCH (08:09)
[2021-10-20] MEDS: METOPROLOL TARTRATE 25 MG TAB PO SCH ×2 (08:47→20:56)
[2021-10-20] MEDS: FUROSEMIDE 40 MG/4 ML VIAL IV SCH ×2 (08:47→16:51)
[2021-10-20] MEDS ORDERED: SENNA 8.6 MG TAB PO STA (11:21)
--- NOTE | 2021-10-20 11:38 | Heart Failure Consultation ---
Date of Consultation October 20, 2021 Assessment & Plan (1) Chronic systolic heart failure: (2) Nonischemic cardiomyopathy: (3) ICD (implantable cardioverter-defibrillator) in place: (4) Atrial fibrillation, permanent: (5) Anticoagulant long-term use: (6) Ventricular tachycardia: (7) Preop cardiovascular exam: ASSESSMENT/PLAN: 1. Chronic HF with reduced EF (chronic systolic CHF): She appears slightly hypervolemic. Breathing is not yet at baseline. She feels this is slightly worse today. On supplemental oxygen with underlying COPD as well chronically. Likely class NYHA class III-IV. Would recommend continuation Lasix 80 mg IV BID with a goal of negative 1-2L per day. Monitor hypotension. Low-sodium diet. Monitor I&Os. STANDING weights. Monitor renal function and electrolytes and replete as appropriate. 2. Nonischemic cardiomyopathy: Severely reduced LV systolic function. EF 20-25% on last echo. Continue Entresto, has not been further titrated due to hypotension. Would convert Metoprolol tartrate back to metoprolol succinate as per guideline recommendations. Could consider Spironolactone and SGLT2 in the future to further optimize. ICD in place and managed by Dr. Pelayo. 3. Permanent atrial fibrillation: Asymptomatic. Heart rate reasonably controlled. Continue rate-controlling medications. Patient was previously on Metoprolol succinate 150 mg daily. Would convert tartrate to succinate for appropriate HF guideline based treatment. Continue digoxin. Can continue anticoagulation for stroke risk reduction. 4. Ventricular tachycardia: This has been noted on ICD interrogation in the outpatient setting. Continue beta-julee. Disposition: Will continue to follow during hospitalization. Anticipate close outpatient follow up with the heart failure program. History of Present Illness Attending Physician: Eamon Rose MD History of Present Illness This is a 60-year-old woman with a nonischemic cardiomyopathy (cardiac catheterization 2006 at [facility] showing normal coronary arteries). She had a single-chamber ICD implanted at that time at [facility]. She had ICD replaced on 07/21/2015 at [facility] in [place]. She also has a history of systolic congestive heart failure, chronic respiratory failure wit hypoxia, now on 2-4 L O2, pericardial effusion, atrial fibrillation with RVR, and schizoaffective disorder. 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 The following studies were obtained: 1. 06/30/18 Limited Echo- LV systolic function is severely reduced. LA is severely dilated. Severe MR. Pericardial effusion noted. EF 25-30%. 2. 07/31/18 Echo- LV is moderately dilated. Left ventricular systolic function is severely reduced, EF 15-20%. Severe global hypokinesis of the LV. Right ventricular systolic function is mildly reduced. Left atrium is moderately dilated. Right atrium is moderately dilated. Severe MR. RVSP is 50-60mmHg. Inferior vena cava mildly dilated. 3. 08/02/18 Right heart cath- Mildly decompensated LV failure. Severe pulmonary HTN. PA pressure 60/40mmHg. PCWP 16mmHg. 4. 04/27/19 Echo- was severely dilated. LV systolic function is severely reduc ed, EF 20-25%. Right ventricular systolic function is mildly reduced. Left atrium is severely dilated. Severe mitral regurgitation. RVSP is elevated at 30-40 mmHg. 5. 08/12/20 Echo:LV moderately dilated. Left ventricular systolic function moderate to severely reduced. EF 20-25%. Left atrium severely dilated. Moderate MR. RVSP is normal. Small pericardial effusion. 6. 10/01/20 Echo: Technically limited. LV function severely reduced, 20-25%. Severe global hypokinesis. LV moderately dilated. Patient has been routinely followed with the heart failure program since 2019. She has been quite stable as an outpatient until more recently. Her Lasix was held on discharge of her May 2021 admission due to hypotension. This was restarted at 40 mg daily. She had been stable on this dose for a few months. Her most recent outpatient visit was with Dr. Pelayo on 08/31/21. She had increased to 40 mg BID at that time. She gets her medications in pill packs so she does not have much flexibility for self dosing/PRN adjustments. Her current pack is for Lasix 40 mg daily. Sometime in June it looks like her Metoprolol was changed from succinate to tartrate- no clear documentation of when/why? Patient presented to the ED on 10/16/21 with increasing shortness of breath. She has not been able to weigh herself at home because she does not have batteries for her scale. She is on oxygen chronically. BNP elevated at 312. CXR consistent with pulmonary edema and bilateral pleural effusions. She is responding well to Lasix 80 mg IV BID. She's negative 2.5 L so far. Her breathing was improving but she is feeling more winded today. She is sleeping with her head elevated. She doesn't have much edema. She denies chest pain, cough, palpitations. Allergies Allergy/AdvReac Type Severity Reaction Status Date / Time fentanyl Allergy Mild RASH,ITCHIN Verified 08/31/21 13:59 G Home Medications Medication Instructions Recorded Confirmed Type trazodone 100 mg tablet 200 mg PO HS 10/07/18 08/31/21 History metformin 500 mg tablet 500 mg PO BID #60 tab 12/15/18 08/31/21 Rx quetiapine 100 mg tablet (Seroquel) 100 mg PO QAM 01/02/19 05/27/21 History Oxygen Home #1 ea 05/09/19 05/27/21 Rx docusate sodium 100 mg capsule 100 mg PO BID #180 cap 06/28/19 08/31/21 Rx (Colace) quetiapine 400 mg tablet (Seroquel) 400 mg PO HS tab 07/05/19 08/31/21 History CPAP Supplies #1 ea 07/12/19 05/27/21 Rx Portable Oxygen #1 ea 07/29/20 05/27/21 Rx sacubitril 24 mg-valsartan 26 mg 1 tab PO BID #60 tab 08/27/20 08/31/21 Rx tablet (Entresto) magnesium oxide 400 mg (241.3 mg 400 mg PO QAM 03/24/21 08/31/21 History magnesium) tablet potassium chloride 20 mEq 40 meq PO QAM 03/24/21 08/31/21 History tablet,extended release atorvastatin 10 mg tablet 10 mg PO QAM #90 tab 04/21/21 08/31/21 Rx hydroxyzine HCl 50 mg tablet 50 mg PO DAILY PRN 05/06/21 08/31/21 History rivaroxaban 20 mg tablet (Xarelto) 20 mg PO QAM #90 tab 05/19/21 08/31/21 Rx diclofenac sodium 1 % topical gel 2 g TOPICAL QID #100 g 05/27/21 05/27/21 Rx (Voltaren Arthritis Pain) tramadol 50 mg tablet 50 mg PO BID PRN #30 tab 05/27/21 08/31/21 Rx omeprazole 20 mg capsule,delayed 20 mg PO DAILYBB #90 cap 06/12/21 08/31/21 Rx release digoxin 125 mcg (0.125 mg) tablet 125 mcg PO QAM #90 tab 06/16/21 08/31/21 Rx pregabalin 150 mg capsule 150 mg PO BID 30 Days #60 cap 08/10/21 08/31/21 Rx metoprolol tartrate 100 mg tablet 100 mg PO DAILY 08/31/21 08/31/21 History furosemide 40 mg tablet 40 mg PO DAILY #30 tab 09/07/21 Rx umeclidinium 62.5 mcg-vilanterol 1 inh INH Q24H #3 inhaler 09/08/21 Rx 25 mcg/actuation powdr for inhalation (Anoro Ellipta) Patient History Medical History Adrenal adenoma Rt sided imaging 01/2020 Asthma Atrial fibrillation on xarelto/metoprolol/digoxin--follows with Dr. Pelayo Cellulitis of left abdominal wall CHF (congestive heart failure) 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% per echo 06/06/18; non-obstructive CAD per cath 2006 Chronic respiratory failure with hypoxia oxygen 3L n/c at all times COPD (chronic obstructive pulmonary disease) Depression Diabetes type 2, controlled patient denies having diabetes, does not want further testing even though she is prescribed Metformin Encounter for pre-operative examination Fracture of tibia and fibula GERD (gastroesophageal reflux disease) Glaucoma ? pt denies History of alcohol use History of tobacco abuse HTN (hypertension) 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 Lab test negative for COVID-19 virus Lightheadedness Memory impairment Morbid obesity Nausea and vomiting On anticoagulant therapy xarelto daily On home oxygen therapy 3 L N/C at all times Pericardial effusion Peripheral neuropathy Preop cardiovascular exam PTSD (post-traumatic stress disorder) Pulmonary embolism 2013 while living in [place] Pulmonary hypertension Restrictive lung disease Schizoaffective disorder Sepsis Severe mitral regurgitation Ventricular arrhythmia Vitamin D deficiency Surgical History AICD (automatic cardioverter/defibrillator) present meditronic History of cardiac cath x2?-- History of decompression of both ulnar nerves History of eye surgery left History of hernia surgery x2 History of incision and drainage (~09/30/20) left tibia History of open reduction and internal fixation (ORIF) procedure left tibia--hardware in place History of tooth extraction partial upper S/P ORIF (open reduction internal fixation) fracture ankle, left--hardware in place S/P tubal ligation Family History Mother , in her 70s Congestive heart failure (CHF) Breast cancer Lung cancer from this Father No problems noted. Other Hypertension No family history of adverse response to anesthesia Ulcerative colitis Denies family history of Colon cancer Ovarian cancer Prostate cancer Myocardial infarction Social History Smoking Status: Former smoker Tobacco Type: Cigarettes Years Smoked: 30; Second Hand Exposure: No; Hx Alcohol Use: Yes Alcohol type: hard liquor Alcohol Intake Frequency Comment: weekends only Hx Substance Use: No Preferred Language: [place] Communication Ability: Effective Visual Impairment: No Limitations Hearing Ability: Normal Early Years Teacher Required: No Beliefs That Will Affect Care: None marital status: marital status details: 5 kids Current Living Situation: Alone Current Living Situation Comment: personal caregivers 4 days a week for 2 hours a day. 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 Wearing supplemental oxygen. HEENT: Head is atraumatic and normocephalic. EOMs intact. Sclera non-icteric. Neck: Supple, no JVD but difficult exam. Pulmonary: Normal respiratory effort, clear to auscultation throughout Cardiac: Irregularly irregular, normal S1 and S2, no gallops, no rubs, no murmurs Extremities: No lower extremity edema. No clubbing or cyanosis. 2+ radial pulses Abdomen: Normal bowel sounds, soft, non-tender, no abdominal masses palpated Skin: Normal skin color, turgor, and pigmentation. No rash or skin lesions Neurological: Oriented to person, place, and time Results & Data ([facility]) Vital Signs (Past 12 Hours) Vital Signs Temp Pulse Pulse Resp BP BP Pulse Ox 05/17/22 08:46 90 106/64 10/20/21 08:00 70 10/20/21 07:56 98.1 F 88 20 102/65 96 10/20/21 04:02 97.9 F 91 H 16 96/67 L 96 Coding Level of Care Code 43884 Initial Inpt Care Lvl 3 Diagnoses Chronic systolic heart failure I50.22 Nonischemic cardiomyopathy I42.8 ICD (implantable cardioverter-defibrillator) in place Z95.810 Atrial fibrillation, permanent I48.21 Anticoagulant long-term use Z79.01 Ventricular tachycardia I47.2 Preop cardiovascular exam Z01.810
[2021-10-20] MEDS: DIGOXIN 0.125 MG TAB PO SCH (15:45)
--- NOTE | 2021-10-20 16:27 | Hospitalist Progress Note ---
Date of Service October 20, 2021 Assessment & Plan (1) CHF exacerbation: Plan: Acute on chronic systolic CHF. Likely due to gradual decreases of her Lasix without any change in diet/salt intake. She reports going down to Lasix 40 mg PO daily about 1 month prior. - Continue Lasix IV BID -> Dry weight ~260 lbs per prior HF note. - Continue home beta-julee, Entresto -> Weight today is 269 lbs. Down slightly. We are seeing good response from the Lasix though, so will continue. Few symptoms at this point. HF PA following along. (2) Acute on chronic respiratory failure with hypoxia: Plan: Due to CHF. - Monitor (3) Atrial fibrillation, permanent: Plan: Rates are presently 80s. - Continue home beta-julee, digoxin -> Will switch to Toprol per HF recommendations. - Continue home rivaroxaban (4) Oxygen dependent: Plan: At baseline on home O2. (5) Nonischemic cardiomyopathy: Plan: Last echo in 09/2020 was 20 - 25%. - See above (6) ICD (implantable cardioverter-defibrillator) in place: Plan: See above (7) HTN (hypertension): Plan: BP today is 90/65. No symptoms of hypotension however. - Meds as above (8) COPD, severe: Plan: Severe COPD/history of PE. 3 L oxygen dependency. - Continue usual inhalers - DuoNebs every 4 hours as needed (9) History of pulmonary embolism: Plan: Continue Xarelto, for PE and atrial fibrillation (10) Diabetes type 2, controlled: Plan: A1c was 6.6% this admission. - Hold metformin - Placed on Accu-Cheks before meals and at bedtime NovoLog coverage per scale -> Patient is presently refusing as she reports she does not have diabetes. (11) Schizoaffective disorder: Plan: Schizoaffective disorder/bipolar disorder/PTSD. Patient presently without SI/HI. No bonnie or depression noted today. - Continue hydroxyzine, quetiapine and trazodone (12) GERD (gastroesophageal reflux disease): Plan: - Continue omeprazole/pantoprazole (13) Post-traumatic stress disorder: Plan: See above Admission and Anticipated Discharge Date Admission Date: October 17, 2021 Subjective Doing well today. Feels her swelling is improving. Reports no fevers/chills, chest pain, shortness of breath, abdominal pain, nausea, or vomiting. Physical Exam Constitutional: WD/WN, vitals as above Eyes: EOM intact bilaterally; no conjunctival abnormality ENMT: external ear and nose normal, oropharynx normal Neck: trachea midline, no thyromegaly normal visual inspection Respiratory: normal respiratory effort, lungs clear to auscultation no respiratory distress Cardiovascular: RRR, no murmur, no edema Gastrointestinal (Abdomen): Inspection/Auscultation: abdomen normal to inspection; abdomen not distended Percussion/Palpation: abdomen soft; abdomen nontender, no guarding and abdomen not rigid Musculoskeletal: no cyanosis or clubbing, extremities motor strength 5/5 Skin: no rashes, warm and dry Neurologic: moves all extremities and awake Psychiatric: Orientation: alert, oriented to person and cooperative Results & Data Results & Data ([facility] [place]) Vital Signs (Past 12 Hours) Vital Signs Temp Pulse Pulse Resp BP BP Pulse Ox 10/20/21 16:00 36.9 C 67 19 93/64 L 95 10/20/21 15:45 90 10/20/21 11:41 36.4 C L 95 H 19 90/66 L 97 10/20/21 08:46 90 106/64 10/20/21 08:00 70 10/20/21 07:56 36.7 C 88 20 102/65 96 PG Care Time/CCT Total # of Minutes Spent Total Time Spent with Patient: Total time spent is greater than 50% in coordination of care (as documented) at patient's floor/unit and/or counseling patient: Coding Level of Care Code 14168 Subseq Hosp Care Lvl 2 Diagnoses CHF exacerbation I50.9 Acute on chronic respiratory failure with hypoxia J96.21 Atrial fibrillation, permanent I48.21 Oxygen dependent Z99.81 Nonischemic cardiomyopathy I42.8 ICD (implantable cardioverter-defibrillator) in place Z95.810 HTN (hypertension) I10 Hypertension type: essential hypertension COPD, severe J44.9 History of pulmonary embolism Z86.711 Diabetes type 2, controlled E11.8 Diabetes mellitus technician terminal and repeater insulin use: without technician terminal and repeater use Diabetes mellitus complication status: with unspecified complications Schizoaffective disorder F25.0 Schizoaffective disorder type: bipolar GERD (gastroesophageal reflux disease) K21.9 Esophagitis presence: esophagitis presence not specified Post-traumatic stress disorder F43.10 (1) HTN (hypertension) Hypertension type: essential hypertension Qualified Code(s): I10 - Essential (primary) hypertension (2) Diabetes type 2, controlled Diabetes mellitus technician terminal and repeater insulin use: without technician terminal and repeater use Diabetes mellitus complication status: with unspecified complications Qualified Code(s): E11.8 - Type 2 diabetes mellitus with unspecified complications (3) Schizoaffective disorder Schizoaffective disorder type: bipolar Qualified Code(s): F25.0 - Schizoaffective disorder, bipolar type (4) GERD (gastroesophageal reflux disease) Esophagitis presence: esophagitis presence not specified Qualified Code(s): K21.9 - Gastro-esophageal reflux disease without esophagitis
[2021-10-20] MEDS: RIVAROXABAN 20 MG TAB PO SCH (16:51)
[2021-10-20] MEDS: traZODone HCL 100 MG TAB PO SCH (19:50)
[2021-10-20] MEDS: QUEtiapine FUMARATE 200 MG TAB PO SCH (19:50)
[2021-10-21 07:00] LABS: Hematocrit (blood only) 33.7 % (37-47); Hemoglobin 10.7 g/dL (12.0-16.0); Mean Corpuscular Hemoglobin 27.5 pg (25-34); Mean Corpuscular Hgb Conc 31.8 g/dL (32-36); Mean Corpuscular Volume 86.6 fL (80-100); Mean Platelet Volume 9.2 fL (7.4-10.4); Platelet Count 340 K/uL (130-400); RDW Coefficient of Variation 15.2 % (11.5-14.5); Red Blood Count 3.89 M/uL (4.2-5.4); White Blood Count 8.86 K/uL (4.8-10.8)
[2021-10-21 07:24] LABS: BUN Creatinine Ratio 19.4 (10-20); Calcium 9.4 mg/dl (8.5-10.1); Creatinine Clr Calc Pharmacy 77.7 ml/min; Est GFR (African American) 65.1 ml/min; Est GFR (Non-African American) 56.1 ml/min; Magnesium 2.4 mg/dl (1.7-2.4)
[2021-10-21] MEDS: DOCUSATE SODIUM 100 MG CAP PO SCH ×2 (09:12→19:50)
[2021-10-21] MEDS: POTASSIUM CHLORIDE CRTAB 20 MEQ TABCR PO SCH (09:12)
[2021-10-21] MEDS: QUEtiapine FUMARATE 100 MG TABLET PO SCH (09:13)
[2021-10-21] MEDS: PANTOprazole 40 MG TAB PO SCH (09:13)
[2021-10-21] MEDS: MAGNESIUM OXIDE 400 MG TAB PO SCH (09:13)
[2021-10-21] MEDS: VALSARTAN/SACUBITRIL 26/24MG TAB PO SCH ×2 (09:13→19:52)
[2021-10-21] MEDS: POLYETHYLENE (MIRALAX) 17 GM PACK PO SCH ×2 (09:13→09:17)
[2021-10-21] MEDS: ATORVASTATIN 10 MG TAB PO SCH (09:13)
[2021-10-21] MEDS: FUROSEMIDE 40 MG/4 ML VIAL IV SCH ×2 (09:13→16:52)
[2021-10-21] MEDS: METOPROLOL SUCC 50MG EXT REL TAB PO SCH (09:13)
[2021-10-21] MEDS: UMECLIDINIUM/VILANTEROL 62.5/25MCG 7 PUFFS/INHALER INH SCH (09:14)
[2021-10-21] MEDS: PREGABALIN 150 MG CAP PO SCH ×2 (09:16→19:50)
[2021-10-21] MEDS: hydrOXYzine HCl 25 MG TAB PO PRN (09:21)
--- NOTE | 2021-10-21 12:36 | Hospitalist Progress Note ---
Date of Service October 21, 2021 Assessment & Plan (1) CHF exacerbation: Plan: Acute on chronic systolic CHF. Likely due to gradual decreases of her Lasix without any change in diet/salt intake. She reports going down to Lasix 40 mg PO daily about 1 month prior. - Continue Lasix IV BID -> Dry weight ~260 lbs per prior HF note. - Continue beta-julee, Entresto -> Weight today is 268 lbs. Down slightly. Not going down quickly. Will discuss with Amira Almanza whether we try metolazone. Patient would like me to discuss with her. (2) Acute on chronic respiratory failure with hypoxia: Plan: Due to CHF. - Monitor (3) Atrial fibrillation, permanent: Plan: Rates are presently 80s. - Continue home beta-julee, digoxin -> Will switch to Toprol per HF recommendations. - Continue home rivaroxaban (4) Oxygen dependent: Plan: At baseline on home O2. (5) Nonischemic cardiomyopathy: Plan: Last echo in 09/2020 was 20 - 25%. - See above (6) ICD (implantable cardioverter-defibrillator) in place: Plan: See above (7) HTN (hypertension): Plan: BP today is 100/65. - Meds as above (8) COPD, severe: Plan: Severe COPD/history of PE. 3 L oxygen dependency. - Continue usual inhalers - DuoNebs every 4 hours as needed (9) History of pulmonary embolism: Plan: Continue Xarelto, for PE and atrial fibrillation (10) Diabetes type 2, controlled: Plan: A1c was 6.6% this admission. - Hold metformin - Placed on Accu-Cheks before meals and at bedtime NovoLog coverage per scale -> Patient is presently refusing as she reports she does not have diabetes. (11) Schizoaffective disorder: Plan: Schizoaffective disorder/bipolar disorder/PTSD. Patient presently without SI/HI. No bonnie or depression noted today. - Continue hydroxyzine, quetiapine and trazodone (12) GERD (gastroesophageal reflux disease): Plan: - Continue omeprazole/pantoprazole (13) Post-traumatic stress disorder: Plan: See above Admission and Anticipated Discharge Date Admission Date: October 17, 2021 Subjective Doing well today. Has been up and moving around more. Reports no fevers/chills, chest pain, shortness of breath, abdominal pain, nausea, or vomiting. Physical Exam Constitutional: WD/WN, vitals as above Eyes: EOM intact bilaterally; no conjunctival abnormality ENMT: external ear and nose normal, oropharynx normal Neck: trachea midline, no thyromegaly normal visual inspection Respiratory: normal respiratory effort, lungs clear to auscultation no respiratory distress Cardiovascular: RRR, no murmur, no edema Gastrointestinal (Abdomen): Inspection/Auscultation: abdomen normal to inspection; abdomen not distended Percussion/Palpation: abdomen soft; abdomen nontender, no guarding and abdomen not rigid Musculoskeletal: no cyanosis or clubbing, extremities motor strength 5/5 Skin: no rashes, warm and dry Neurologic: moves all extremities and awake Psychiatric: Orientation: alert, oriented to person and cooperative Results & Data Results & Data ([facility]) Vital Signs (Past 12 Hours) Vital Signs Temp Pulse Pulse Resp BP BP Pulse Ox 10/21/21 11:09 36.5 C 94 H 16 99/66 L 96 10/21/21 08:00 71 10/21/21 06:47 36.8 C 79 18 100/66 97 10/21/21 03:06 36.7 C 60 16 93/52 L 97 PG Care Time/CCT Total # of Minutes Spent Total Time Spent with Patient: Total time spent is greater than 50% in coordination of care (as documented) at patient's floor/unit and/or counseling patient: Coding Level of Care Code 64447 Subseq Hosp Care Lvl 2 Diagnoses CHF exacerbation I50.9 Acute on chronic respiratory failure with hypoxia J96.21 Atrial fibrillation, permanent I48.21 Oxygen dependent Z99.81 Nonischemic cardiomyopathy I42.8 ICD (implantable cardioverter-defibrillator) in place Z95.810 HTN (hypertension) I10 Hypertension type: essential hypertension COPD, severe J44.9 History of pulmonary embolism Z86.711 Diabetes type 2, controlled E11.8 Diabetes mellitus fdc insulin use: without termite renewal inspector use Diabetes mellitus complication status: with unspecified complications Schizoaffective disorder F25.0 Schizoaffective disorder type: bipolar GERD (gastroesophageal reflux disease) K21.9 Esophagitis presence: esophagitis presence not specified Post-traumatic stress disorder F43.10 (1) HTN (hypertension) Hypertension type: essential hypertension Qualified Code(s): I10 - Essential (primary) hypertension (2) Diabetes type 2, controlled Diabetes mellitus termite renewal inspector insulin use: without termite renewal inspector use Diabetes mellitus complication status: with unspecified complications Qualified Code(s): E11.8 - Type 2 diabetes mellitus with unspecified complications (3) Schizoaffective disorder Schizoaffective disorder type: bipolar Qualified Code(s): F25.0 - Schizoaffective disorder, bipolar type (4) GERD (gastroesophageal reflux disease) Esophagitis presence: esophagitis presence not specified Qualified Code(s): K21.9 - Gastro-esophageal reflux disease without esophagitis
--- NOTE | 2021-10-21 16:20 | Heart Failure Progress Note ---
Date of Service October 21, 2021 Assessment & Plan (1) Nonischemic cardiomyopathy: (2) Acute on chronic HFrEF (heart failure with reduced ejection fraction): (3) Atrial fibrillation, permanent: (4) Anticoagulant long-term use: (5) COPD, severe: (6) Hypotension: Plan: 1. Acute on chronic HFrEF: She appears slightly hypervolemic. Breathing is not yet at baseline. She feels this is slightly improved today compared to yesterday. On supplemental oxygen with underlying COPD as well chronically. Likely class NYHA class III-IV. Would recommend continuation Lasix 80 mg IV BID with a goal of negative 1-2L per day. Minimal output documented yesterday and little weight loss. Adding Metolazone this afternoon. Monitor hypotension. Low- sodium diet. Monitor I&Os. STANDING weights. Monitor renal function and electrolytes and replete as appropriate. 2. Nonischemic cardiomyopathy: Severely reduced LV systolic function. EF 20-25% on last echo. Continue Entresto, has not been further titrated due to hypotension. Continue Metoprolol succinate as per guideline recommendations. Could consider Spironolactone and SGLT2 in the future to further optimize. ICD in place and managed by Dr. Pelayo. 3. Permanent atrial fibrillation: Asymptomatic. Heart rate reasonably controlled. Continue rate-controlling medications. Patient was previously on Metoprolol succinate 150 mg daily. Currently on 50 mg daily. Can continue to titrate as needed for rate control Continue digoxin. Can continue anticoagulation for stroke risk reduction. 4. Ventricular tachycardia: This has been noted on ICD interrogation in the outpatient setting. Continue beta-julee. Disposition. Will continue to follow during hospitalization. Patient plan was discussed with Dr. Rose and Dr. Pelayo. Admission and Anticipated Discharge Date Admission Date: October 17, 2021 Subjective Patient resting comfortably. Awakens easily and responds to all questions. She feels she is breathing easier today. She continues supplemental O2 which is chronic. Net negative 4 L so far. Weight fairly steady on 268 lb. She denies chest pain, cough, or palpitations. Physical Exam Physical Exam: Constitutional: Alert, oriented, in no acute distress. Wearing supplemental oxygen. HEENT: Head is atraumatic and normocephalic. EOMs intact. Sclera non-icteric. Neck: Supple, no JVD but difficult exam. Pulmonary: Normal respiratory effort, clear to auscultation throughout Cardiac: Irregularly irregular, normal S1 and S2, no gallops, no rubs, no murmurs Extremities: No lower extremity edema. No clubbing or cyanosis. 2+ radial pulses Abdomen: Normal bowel sounds, soft, non-tender, no abdominal masses palpated Skin: Normal skin color, turgor, and pigmentation. No rash or skin lesions Neurological: Oriented to person, place, and time Results & Data ([facility]) Vital Signs (Past 12 Hours) Vital Signs Temp Pulse Pulse Resp BP BP Pulse Ox 10/21/21 15:19 97.9 F 81 18 101/71 98 10/21/21 11:09 97.7 F 94 H 16 99/66 L 96 10/21/21 08:00 71 10/21/21 06:47 98.2 F 79 18 100/66 97 PG Care Time/CCT Total # of Minutes Spent Total Time Spent with Patient: Total time spent is greater than 50% in coordination of care (as documented) at patient's floor/unit and/or counseling patient: Coding Level of Care Code 57049 Subseq Hosp Care Lvl 3 Diagnoses Nonischemic cardiomyopathy I42.8 Acute on chronic HFrEF (heart failure with reduced ejection fraction) I50.23 Atrial fibrillation, permanent I48.21 Anticoagulant long-term use Z79.01 COPD, severe J44.9 Hypotension I95.9
[2021-10-21] MEDS ORDERED: metOLazone 5 MG TABLET PO ONE (16:30)
[2021-10-21] MEDS: DIGOXIN 0.125 MG TAB PO SCH (16:52)
[2021-10-21] MEDS: RIVAROXABAN 20 MG TAB PO SCH (16:53)
[2021-10-21] MEDS: QUEtiapine FUMARATE 200 MG TAB PO SCH (19:51)
[2021-10-21] MEDS: traZODone HCL 100 MG TAB PO SCH (19:51)
[2021-10-22 06:14] LABS: BUN Creatinine Ratio 21.1 (10-20); Calcium 8.5 mg/dl (8.5-10.1); Creatinine Clr Calc Pharmacy 76.4 ml/min; Est GFR (African American) 64.3 ml/min; Est GFR (Non-African American) 55.5 ml/min; Magnesium 2.3 mg/dl (1.7-2.4); Potassium 3.8 mmol/L (3.5-5.1)
[2021-10-22 08:06] LABS: Hematocrit (blood only) 33.8 % (37-47); Mean Corpuscular Hgb Conc 32.5 g/dL (32-36); Mean Platelet Volume 9.8 fL (7.4-10.4); Platelet Count 157 K/uL (130-400); RDW Standard Deviation 47.2 fL (36.4-46.3); Red Blood Count 3.93 M/uL (4.2-5.4)
[2021-10-22] MEDS: UMECLIDINIUM/VILANTEROL 62.5/25MCG 7 PUFFS/INHALER INH SCH (08:11)
[2021-10-22] MEDS: MAGNESIUM OXIDE 400 MG TAB PO SCH (08:12)
[2021-10-22] MEDS: QUEtiapine FUMARATE 100 MG TABLET PO SCH (08:12)
[2021-10-22] MEDS: DOCUSATE SODIUM 100 MG CAP PO SCH ×2 (08:12→19:50)
[2021-10-22] MEDS: ATORVASTATIN 10 MG TAB PO SCH (08:12)
[2021-10-22] MEDS: hydrOXYzine HCl 25 MG TAB PO PRN (08:12)
[2021-10-22] MEDS: PANTOprazole 40 MG TAB PO SCH (08:12)
[2021-10-22] MEDS: POLYETHYLENE (MIRALAX) 17 GM PACK PO SCH (08:12)
[2021-10-22] MEDS: POTASSIUM CHLORIDE CRTAB 20 MEQ TABCR PO SCH (08:13)
[2021-10-22] MEDS: VALSARTAN/SACUBITRIL 26/24MG TAB PO SCH ×2 (08:13→19:52)
[2021-10-22] MEDS: METOPROLOL SUCC 50MG EXT REL TAB PO SCH (08:13)
[2021-10-22] MEDS: PREGABALIN 150 MG CAP PO SCH ×2 (08:16→19:51)
[2021-10-22] MEDS ORDERED: metOLazone 5 MG TABLET PO ONE ×2 (08:30→16:30)
[2021-10-22] MEDS: FUROSEMIDE 40 MG/4 ML VIAL IV SCH ×2 (09:58→17:29)
--- NOTE | 2021-10-22 12:28 | Heart Failure Progress Note ---
Date of Service October 22, 2021 Assessment & Plan (1) Nonischemic cardiomyopathy: (2) Acute on chronic HFrEF (heart failure with reduced ejection fraction): (3) Atrial fibrillation, permanent: (4) Anticoagulant long-term use: (5) COPD, severe: (6) Hypotension: Plan: 1. Acute on chronic HFrEF: She appears slightly hypervolemic. Breathing improving but is not yet at baseline. She feels this is slightly improved today compared to yesterday. On supplemental oxygen with underlying COPD as well chronically. Likely class NYHA class III-IV. Would recommend continuation Lasix 80 mg IV BID with a goal of negative 1-2L per day. Responded well to adding Metolazone yesterday. Monitor hypotension. She is low but asymptomatic. Her systolics typically run in the 90s. Kidney function stable. Could consider additional dose of Metolazone if BP stable. Consider holding Entresto short term if needed to allow for additional diuresis. Low-sodium diet. Monitor I&Os. STANDING weights. Monitor renal function and electrolytes and replete as appropriate. 2. Nonischemic cardiomyopathy: Severely reduced LV systolic function. EF 20-25% on last echo. Continue Entresto, has not been further titrated due to hypotension. Continue Metoprolol succinate as per guideline recommendations. Could consider Spironolactone and SGLT2 in the future to further optimize. ICD in place and managed by Dr. Pelayo. 3. Permanent atrial fibrillation: Asymptomatic. Heart rate reasonably controlled. Continue rate-controlling medications. Patient was previously on Metoprolol succinate 150 mg daily. Currently on 50 mg daily. Can continue to titrate as needed for rate controlas BP allows. Continue digoxin. Can continue anticoagulation for stroke risk reduction. 4. Ventricular tachycardia: This has been noted on ICD interrogation in the outpatient setting. Continue beta-julee. Disposition. Will be away from the hospital tomorrow. Will plan to follow up with patient in the office next week for close follow up. Admission and Anticipated Discharge Date Admission Date: October 17, 2021 Subjective She is feeling well. She feels she is breathing easier today. She continues supplemental O2 which is chronic. Net negative 5.7 L so far. Negative 2 L yesterday with addition to Metolazone. No standing weight today. She denies chest pain, cough, or palpitations. Physical Exam Physical Exam: Constitutional: Alert, oriented, in no acute distress. Wearing supplemental oxygen. HEENT: Head is atraumatic and normocephalic. EOMs intact. Sclera non-icteric. Neck: Supple, no JVD but difficult exam. Pulmonary: Normal respiratory effort, clear to auscultation throughout Cardiac: Irregularly irregular, normal S1 and S2, no gallops, no rubs, no murmurs Extremities: No lower extremity edema. No clubbing or cyanosis. 2+ radial pulses Abdomen: Normal bowel sounds, soft, non-tender, no abdominal masses palpated Skin: Normal skin color, turgor, and pigmentation. No rash or skin lesions Neurological: Oriented to person, place, and time Results & Data ([facility]) Vital Signs (Past 12 Hours) Vital Signs Temp Pulse Pulse Resp BP BP Pulse Ox 10/22/21 12:13 98.1 F 95 H 16 90/81 L 97 10/22/21 09:30 83 96/62 L 10/22/21 08:29 97.7 F 62 16 81/53 L 10/22/21 07:00 77 10/22/21 05:12 97.7 F 85 20 100/67 97 PG Care Time/CCT Total # of Minutes Spent Total Time Spent with Patient: Total time spent is greater than 50% in coordination of care (as documented) at patient's floor/unit and/or counseling patient: Coding Diagnoses Nonischemic cardiomyopathy I42.8 Acute on chronic HFrEF (heart failure with reduced ejection fraction) I50.23 Atrial fibrillation, permanent I48.21 Anticoagulant long-term use Z79.01 COPD, severe J44.9 Hypotension I95.9
--- NOTE | 2021-10-22 12:33 | Hospitalist Progress Note ---
Date of Service October 22, 2021 Assessment & Plan (1) CHF exacerbation: Plan: Acute on chronic systolic CHF. Likely due to gradual decreases of her Lasix without any change in diet/salt intake. She reports going down to Lasix 40 mg PO daily about 1 month prior. - Continue Lasix IV BID -> Dry weight ~260 lbs per prior HF note. - Continue beta-julee, Entresto -> Weight today is 267.8 lbs. Down slightly. Added metolazone which improved output significantly. Will continue this. (2) Acute on chronic respiratory failure with hypoxia: Plan: Due to CHF. - Monitor (3) Atrial fibrillation, permanent: Plan: Rates are presently 80s. - Continue home beta-julee, digoxin -> Switched to Toprol per HF recommendations. - Continue home rivaroxaban (4) Oxygen dependent: Plan: At baseline on home O2. (5) Nonischemic cardiomyopathy: Plan: Last echo in 09/2020 was 20 - 25%. - See above (6) ICD (implantable cardioverter-defibrillator) in place: Plan: See above (7) HTN (hypertension): Plan: BP today is 90/75. - Meds as above (8) COPD, severe: Plan: Severe COPD/history of PE. 3 L oxygen dependency. - Continue usual inhalers - DuoNebs every 4 hours as needed (9) History of pulmonary embolism: Plan: Continue Xarelto, for PE and atrial fibrillation (10) Diabetes type 2, controlled: Plan: A1c was 6.6% this admission. - Hold metformin - Placed on Accu-Cheks before meals and at bedtime NovoLog coverage per scale -> Patient is presently refusing as she reports she does not have diabetes. (11) Schizoaffective disorder: Plan: Schizoaffective disorder/bipolar disorder/PTSD. Patient presently without SI/HI. No bonnie or depression noted today. - Continue hydroxyzine, quetiapine and trazodone (12) GERD (gastroesophageal reflux disease): Plan: - Continue omeprazole/pantoprazole (13) Post-traumatic stress disorder: Plan: See above Admission and Anticipated Discharge Date Admission Date: October 17, 2021 Subjective Doing well today. Did have good response to the metolazone. Reports no fevers/chills, chest pain, shortness of breath, abdominal pain, nausea, or vomiting. Physical Exam Constitutional: WD/WN, vitals as above Eyes: EOM intact bilaterally; no conjunctival abnormality ENMT: external ear and nose normal, oropharynx normal Neck: trachea midline, no thyromegaly normal visual inspection Respiratory: normal respiratory effort, lungs clear to auscultation no respiratory distress Cardiovascular: RRR, no murmur, no edema Gastrointestinal (Abdomen): Inspection/Auscultation: abdomen normal to inspection; abdomen not distended Percussion/Palpation: abdomen soft; abdomen nontender, no guarding and abdomen not rigid Musculoskeletal: no cyanosis or clubbing, extremities motor strength 5/5 Skin: no rashes, warm and dry Neurologic: moves all extremities and awake Psychiatric: Orientation: alert, oriented to person and cooperative Results & Data Results & Data ([facility]) Vital Signs (Past 12 Hours) Vital Signs Temp Pulse Pulse Resp BP BP Pulse Ox 10/22/21 12:13 36.7 C 95 H 16 90/81 L 97 10/22/21 09:30 83 96/62 L 10/22/21 08:29 36.5 C 62 16 81/53 L 10/22/21 07:00 77 10/22/21 05:12 36.5 C 85 20 100/67 97 PG Care Time/CCT Total # of Minutes Spent Total Time Spent with Patient: Total time spent is greater than 50% in coordination of care (as documented) at patient's floor/unit and/or counseling patient: Coding Level of Care Code 20002 Subseq Hosp Care Lvl 2 Diagnoses CHF exacerbation I50.9 Acute on chronic respiratory failure with hypoxia J96.21 Atrial fibrillation, permanent I48.21 Oxygen dependent Z99.81 Nonischemic cardiomyopathy I42.8 ICD (implantable cardioverter-defibrillator) in place Z95.810 HTN (hypertension) I10 Hypertension type: essential hypertension COPD, severe J44.9 History of pulmonary embolism Z86.711 Diabetes type 2, controlled E11.8 Diabetes mellitus fci insulin use: without fci use Diabetes mellitus complication status: with unspecified complications Schizoaffective disorder F25.0 Schizoaffective disorder type: bipolar GERD (gastroesophageal reflux disease) K21.9 Esophagitis presence: esophagitis presence not specified Post-traumatic stress disorder F43.10 (1) HTN (hypertension) Hypertension type: essential hypertension Qualified Code(s): I10 - Essential (primary) hypertension (2) Diabetes type 2, controlled Diabetes mellitus manager intermediate insulin use: without fci use Diabetes mellitus complication status: with unspecified complications Qualified Code(s): E11.8 - Type 2 diabetes mellitus with unspecified complications (3) Schizoaffective disorder Schizoaffective disorder type: bipolar Qualified Code(s): F25.0 - [place] izoaffective disorder, bipolar type (4) GERD (gastroesophageal reflux disease) Esophagitis presence: esophagitis presence not specified Qualified Code(s): K21.9 - Gastro-esophageal reflux disease without esophagitis
[2021-10-22] MEDS: DIGOXIN 0.125 MG TAB PO SCH (16:39)
[2021-10-22] MEDS: RIVAROXABAN 20 MG TAB PO SCH (16:40)
[2021-10-22] MEDS: QUEtiapine FUMARATE 200 MG TAB PO SCH (19:51)
[2021-10-22] MEDS: traZODone HCL 100 MG TAB PO SCH (19:52)
[2021-10-23 06:56] LABS: BUN Creatinine Ratio 20.3 (10-20); Calcium 10.1 mg/dl (8.5-10.1); Creatinine Clr Calc Pharmacy 55.6 ml/min; Est GFR (African American) 44.5 ml/min; Est GFR (Non-African American) 38.4 ml/min; Magnesium 2.6 mg/dl (1.7-2.4); Potassium 3.9 mmol/L (3.5-5.1)
[2021-10-23 07:01] LABS: Hematocrit (blood only) 37.3 % (37-47); Hemoglobin 12.6 g/dL (12.0-16.0); Mean Corpuscular Hemoglobin 29.4 pg (25-34); Mean Corpuscular Hgb Conc 33.8 g/dL (32-36); Mean Corpuscular Volume 86.9 fL (80-100); Mean Platelet Volume 9.6 fL (7.4-10.4); Platelet Count 360 K/uL (130-400); RDW Standard Deviation 47.9 fL (36.4-46.3); Red Blood Count 4.29 M/uL (4.2-5.4); White Blood Count 8.62 K/uL (4.8-10.8)
[2021-10-23] MEDS: VALSARTAN/SACUBITRIL 26/24MG TAB PO SCH (08:26)
[2021-10-23] MEDS: POTASSIUM CHLORIDE CRTAB 20 MEQ TABCR PO SCH (08:26)
[2021-10-23] MEDS: MAGNESIUM OXIDE 400 MG TAB PO SCH (08:26)
[2021-10-23] MEDS: PANTOprazole 40 MG TAB PO SCH (08:26)
[2021-10-23] MEDS: ATORVASTATIN 10 MG TAB PO SCH (08:26)
[2021-10-23] MEDS: METOPROLOL SUCC 50MG EXT REL TAB PO SCH (08:26)
[2021-10-23] MEDS: UMECLIDINIUM/VILANTEROL 62.5/25MCG 7 PUFFS/INHALER INH SCH (08:27)
[2021-10-23] MEDS: DOCUSATE SODIUM 100 MG CAP PO SCH (08:27)
[2021-10-23] MEDS: POLYETHYLENE (MIRALAX) 17 GM PACK PO SCH (08:27)
[2021-10-23] MEDS: PREGABALIN 150 MG CAP PO SCH (08:34)
[2021-10-23] MEDS: QUEtiapine FUMARATE 100 MG TABLET PO SCH (09:40)
--- NOTE | 2021-10-23 13:49 | Discharge Summary ---
Date of Service October 23, 2021 Admission HPI Per Admitting Provider The patient is a 60-year-old female with a past medical history including permanent atrial fibrillation, small bowel obstruction, prediabetes, long-term anticoagulant use, ICD, nonischemic cardiomyopathy, sensory polyneuropathy, PTSD, bipolar disorder, fatty liver, severe COPD, gait difficulty, anxiety, A. fib with RVR, V. tach, B12 deficiency, hypertension, schizoaffective disorder, pulmonary hypertension, chronic respiratory failure with hypoxia on 3 L oxygen, and memory impairment. The patient reports that her furosemide has gradually been decreased over the past month from 80 mg twice a day, to 80 mg daily, and most recently 1 week ago to 40 mg daily. She as noted above, notes over the past 1 to 2 days increasing shortness of breath, presented to the ED for assessment. Chest x-ray shows CHF, patient was referred for evaluation for admission, and received furosemide 40 mg IV from the ED. Principal Diagnosis Acute on chronic systolic CHF exacerbation Discharge Exam Constitutional WD/WN, vitals as above Eyes EOM intact bilaterally; no conjunctival abnormality ENMT external ear and nose normal, oropharynx normal Neck trachea midline, no thyromegaly normal visual inspection Respiratory normal respiratory effort, lungs clear to auscultation no respiratory distress Cardiovascular RRR, no murmur, no edema Gastrointestinal (Abdomen) Inspection/Auscultation: abdomen normal to inspection; abdomen not distended Percussion/Palpation: abdomen soft; abdomen nontender, no guarding and abdomen n ot rigid Musculoskeletal no cyanosis or clubbing, extremities motor strength 5/5 Skin no rashes, warm and dry Neurologic moves all extremities and awake Psychiatric Orientation: alert, oriented to person and cooperative Discharge Data Allergies Allergy/AdvReac Type Severity Reaction Status Date / Time fentanyl Allergy Mild RASH,ITCHIN Verified 08/31/21 13:59 G Consultations 10/17/21 01:15 ED Decision to Admit Stat 10/19/21 10:02 [facility] [place] CHF Program Referral Routine Hospital Course (1) CHF exacerbation: Acute on chronic systolic CHF. Likely due to gradual decreases of her Lasix without any change in diet/salt intake. She reports going down to Lasix 40 mg PO daily about 1 month prior. - Continue Lasix IV BID -> Dry weight ~260 lbs per prior HF note. - Continue beta-julee, Entresto -> Weight was down to 262.8 lbs on 10/23 after two doses of metolazone with Lasix yesterday. Slight kidney injury with Cr from 1.1 -> 1.5. Held Lasix today. On discharge, will return to Lasix 40 mg PO daily. Has new home scale, and we measured her at 265 lbs on the new home scale. She will call Catalina Almanza's office with any change >2-3 lbs. Will see her next week for repeat BMP and weight check. (2) Acute on chronic respiratory failure with hypoxia: Due to CHF. - Monitor (3) Atrial fibrillation, permanent: Rates are presently 80s. - Continue home beta-julee, digoxin -> Switched to Toprol per HF recommendations. (I forgot to switch this on discharge! Will need switched to succinate as outpatient. Sorry!) - Continue home rivaroxaban (4) Oxygen dependent: At baseline on home O2. (5) Nonischemic cardiomyopathy: Last echo in 09/2020 was 20 - 25%. - See above (6) ICD (implantable cardioverter-defibrillator) in place: See above (7) HTN (hypertension): BP today is 90/75. - Meds as above (8) COPD, severe: Severe COPD/history of PE. 3 L oxygen dependency. - Continue usual inhalers - DuoNebs every 4 hours as needed (9) History of pulmonary embolism: Continue Xarelto, for PE and atrial fibrillation (10) Diabetes type 2, controlled: A1c was 6.6% this admission. - Hold metformin - Placed on Accu-Cheks before meals and at bedtime NovoLog coverage per scale -> Patient is presently refusing as she reports she does not have diabetes. (11) Schizoaffective disorder: Schizoaffective disorder/bipolar disorder/PTSD. Patient presently without SI/HI. No bonnie or depression noted today. - Continue hydroxyzine, quetiapine and trazodone (12) GERD (gastroesophageal reflux disease): - Continue omeprazole/pantoprazole (13) Post-traumatic stress disorder: See above Total Time Total Time Spent Total Time Spent (In Minutes): 35 Discharge Plan Discharge Items Patient Disposition: Home - Home Health Services Reason For Visit: CHF EXACERBATION Discharge Diagnosis: CHF exacerbation Condition on Discharge: Good Activity: Resume your previous activity Non-emergency contact: Primary Care Provider and Yard Conductor Call non-emergency contact if: your symptoms worsen Follow-up/Referrals: Antonio Oliver MD [Primary Care Provider] - Catalina Almanza PA-C [Physician Interventionist] - 10/30/21 10:30 am Diet: Heart Healthy and Low Sodium (2gm) Addtl Attending Provider Instructions: Ms. Carson, You were admitted to the hospital with a CHF exacerbation. This may have occurred due to lowering your Lasix. Please return to Lasix 40 mg (2 of your 20 mg tablets) every morning. Weigh yourself every morning. On the scale you are taking home, your weight was 265 lbs today. I would consider this your new "dry weight". You should aim to keep your weight at this same level. Do the same ritual every morning. Wake up, use the restroom (urinate and/or defecate), then weigh yourself in the same general clothes. If you gain more than 2-3 lbs, please call Catalina Almanza's office to discuss how to adjust your Lasix. Pending Studies at Discharge: No Stand-Alone Forms: My [facility] [employer], Smoking Cessation Medications and DC Order Prescriptions: Continued metformin 500 mg tablet 500 mg PO BID Qty: 60 RF: 5 quetiapine [Seroquel] 400 mg tablet 400 mg PO HS RF: 0 (DME) Portable Oxygen Misc See Rx Instructions .MEDSUPPLY Qty: 1 RF: 0 Entresto 24-26 mg tablet 1 tab PO BID Qty: 60 RF: 2 atorvastatin 10 mg tablet 10 mg PO QAM Qty: 90 RF: 3 Xarelto 20 mg tablet 20 mg PO QAM Qty: 90 RF: 2 omeprazole 20 mg capsule,delayed release(DR/EC) 20 mg PO DAILYBB Qty: 90 RF: 3 digoxin 125 mcg (0.125 mg) tablet 125 mcg PO QAM Qty: 90 RF: 3 pregabalin 150 mg capsule 150 mg PO BID 30 Days Qty: 60 RF: 5 Anoro Ellipta 62.5-25 mcg/actuation blister with device 1 inh INH Q24H Qty: 3 RF: 1 (DME) CPAP Supplies Misc See Rx Instructions .ROUTE .MEDSUPPLY Qty: 1 RF: 0 docusate sodium [Colace] 100 mg capsule 100 mg PO BID Qty: 180 RF: 3 tramadol 50 mg tablet 50 mg PO BID PRN (Reason: pain) Qty: 30 RF: 0 diclofenac sodium [Voltaren Arthritis Pain] 1 % gel 2 g topical QID Qty: 100 RF: 0 metoprolol tartrate 100 mg tablet 100 mg PO DAILY RF: 0 trazodone 100 mg tablet 200 mg PO HS RF: 0 quetiapine [Seroquel] 100 mg Tablet 100 mg PO QAM RF: 0 (DME) Oxygen Home Liters Per Minute See Rx Instructions .ROUTE .MEDSUPPLY Qty: 1 RF: 0 magnesium oxide 400 mg (241.3 mg magnesium) tablet 400 mg PO QAM RF: 0 potassium chloride 20 mEq tablet extended release 40 meq PO QAM RF: 0 hydroxyzine HCl 50 mg Tablet 50 mg PO DAILY PRN (Reason: Anxiety) RF: 0 furosemide 40 mg tablet 40 mg PO DAILY Qty: 30 RF: 2 Discharge Orders: Discharge Order (Routine); Ordered 10/23/21 Ordered By: Eamon Jackson/Other Patient Handouts: Type 2 Diabetes Admission Data Admit Date/Time: 10/17/21 02:14 Attending Provider: Eamon Rose Admit Provider: iMcheal Kenny Primary Care Provider: Antonio Oliver V. Other Providers: Eamon Rose ; [facility] ; Micheal Kenny ; Catalina Almanza Other Interventions: Discharge Summary Assessment (RN) Last Done: 10/23/21 12:39 Coding Level of Care Code D/C DAY MANAGEMENT >30 MINS Diagnoses CHF exacerbation I50.9 Acute on chronic respiratory failure with hypoxia J96.21 Atrial fibrillation, permanent I48.21 Oxygen dependent Z99.81 Nonischemic cardiomyopathy I42.8 ICD (implantable cardioverter-defibrillator) in place Z95.810 HTN (hypertension) I10 Hypertension type: essential hypertension COPD, severe J44.9 History of pulmonary embolism Z86.711 Diabetes type 2, controlled E11.8 Diabetes mellitus penitentiary insulin use: without extermination supervisor use Diabetes mellitus complication status: with unspecified complications Schizoaffective disorder F25.0 Schizoaffective disorder type: bipolar GERD (gastroesophageal reflux disease) K21.9 Esophagitis presence: esophagitis presence not specified Post-traumatic stress disorder F43.10
== END 2021-10-23 14:15 | disposition home health service (06) | DRG 291 ==
LOC: ED 23:00 → SUATTDRO 10-17 02:14 → 2S 10-17 02:14

== ENCOUNTER 2021-12-06 01:32 | Inpatient (IN) ==
[2021-12-06] MEDS ORDERED: ALBUT/IPRATROP 3MG/0.5MG NEB 3 ML VIAL NEB STA (01:40)
[2021-12-06 01:59] LABS: Hematocrit (blood only) 34.4 % (37-47); Hemoglobin 11.4 g/dL (12.0-16.0); Mean Corpuscular Hemoglobin 28.4 pg (25-34); Mean Corpuscular Hgb Conc 33.1 g/dL (32-36); Mean Corpuscular Volume 85.6 fL (80-100); Mean Platelet Volume 9.1 fL (7.4-10.4); Platelet Count 360 K/uL (130-400); RDW Coefficient of Variation 16.1 % (11.5-14.5); RDW Standard Deviation 50.2 fL (36.4-46.3); Red Blood Count 4.02 M/uL (4.2-5.4); White Blood Count 11.61 K/uL (4.8-10.8)
--- NOTE | 2021-12-06 02:04 | Emergency Department Note ---
History of Present Illness General Chief complaint: Shortness of Breath/Dyspnea Time Seen by Provider: 12/06/21 01:36 History of Present Illness This 60-year-old with heart failure and COPD presents to the ER complaining of shortness of breath Location: Chest Quality: Hard to breathe Severity: Moderate Duration: Past 2 days Timing: Started few days ago Context: Patient was concerned and came in Modifying factors: better with rest; worse with activity Patient denies chest pain, fevers, abdominal pain, flulike illness. Home Medications Medication Instructions Recorded Confirmed Type trazodone 100 mg tablet 200 mg PO HS 10/07/18 12/06/21 History metformin 500 mg tablet 500 mg PO BID #60 tab 12/15/18 12/06/21 Rx quetiapine 100 mg tablet (Seroquel) 100 mg PO QAM 01/02/19 12/06/21 History Oxygen Home #1 ea 05/09/19 11/30/21 Rx docusate sodium 100 mg capsule 100 mg PO BID #180 cap 06/28/19 12/06/21 Rx (Colace) quetiapine 400 mg tablet (Seroquel) 400 mg PO HS tab 07/05/19 12/06/21 History Portable Oxygen #1 ea 07/29/20 11/30/21 Rx sacubitril 24 mg-valsartan 26 mg 1 tab PO BID #60 tab 08/27/20 12/06/21 Rx tablet (Entresto) magnesium oxide 400 mg (241.3 mg 400 mg PO QAM 03/24/21 12/06/21 History magnesium) tablet potassium chloride 20 mEq 40 meq PO QAM 03/24/21 12/06/21 History tablet,extended release atorvastatin 10 mg tablet 10 mg PO QAM #90 tab 04/21/21 12/06/21 Rx hydroxyzine HCl 50 mg tablet 50 mg PO DAILY PRN 05/06/21 12/06/21 History rivaroxaban 20 mg tablet (Xarelto) 20 mg PO QAM #90 tab 05/19/21 12/06/21 Rx diclofenac sodium 1 % topical gel 2 g TOPICAL QID #100 g 05/27/21 12/06/21 Rx (Voltaren Arthritis Pain) omeprazole 20 mg capsule,delayed 20 mg PO DAILYBB #90 cap 06/12/21 12/06/21 Rx release digoxin 125 mcg (0.125 mg) tablet 125 mcg PO QAM #90 tab 06/16/21 12/06/21 Rx pregabalin 150 mg capsule 150 mg PO BID 30 Days #60 cap 08/10/21 12/06/21 Rx metoprolol succinate 100 mg 100 mg PO DAILY #90 tab 10/30/21 12/06/21 Rx tablet,extended release 24 hr furosemide 40 mg tablet 80 mg PO DAILY #180 tab 11/11/21 12/06/21 Rx Incentive Spirometer #1 ea 11/16/21 11/30/21 Rx umeclidinium 62.5 mcg-vilanterol 1 inh INH Q24H #3 inhaler 11/16/21 12/06/21 Rx 25 mcg/actuation powdr for inhalation (Anoro Ellipta) tramadol 50 mg tablet 50 mg PO DAILY PRN #30 tab 11/30/21 12/06/21 Rx Allergies Allergy/AdvReac Type Severity Reaction Status Date / Time fentanyl Allergy Mild RASH,ITCHIN Verified 12/06/21 02:39 G Past Med/Surg History Medical History Adrenal adenoma Rt sided imaging 01/2020 KIRSTIN (acute kidney injury) Asthma Atrial fibrillation on xarelto/metoprolol/digoxin--follows with Dr. Pelayo Cellulitis of left abdominal wall CHF (congestive heart failure) 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% per echo 06/06/18; non-obstructive CAD per cath 2006 Chronic respiratory failure with hypoxia oxygen taper COPD (chronic obstructive pulmonary disease) Depression Diabetes type 2, controlled patient denies having diabetes, does not want further testing even though she is prescribed Metformin Encounter for pre-operative examination Fracture of tibia and fibula GERD (gastroesophageal reflux disease) Glaucoma ? pt denies History of alcohol use History of tobacco abuse HTN (hypertension) Hypotension 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 Lab test negative for COVID-19 virus Lightheadedness Memory impairment Morbid obesity Nausea and vomiting On anticoagulant therapy xarelto daily On home oxygen therapy 3 L N/C at all times Pericardial effusion Peripheral neuropathy Preop cardiovascular exam PTSD (post-traumatic stress disorder) Pulmonary embolism 2013 while living in [place] Pulmonary hypertension Restrictive lung disease Schizoaffective disorder Sepsis Severe mitral regurgitation Small bowel obstruction Ventricular arrhythmia Vitamin D deficiency Surgical History AICD (automatic cardioverter/defibrillator) present meditronic History of cardiac cath x2?-- History of decompression of both ulnar nerves History of eye surgery left History of hernia surgery x2 History of incision and drainage (~09/30/20) left tibia History of open reduction and internal fixation (ORIF) procedure left tibia--hardware in place History of tooth extraction partial upper S/P ORIF (open reduction internal fixation) fracture ankle, left--hardware in place S/P tubal ligation Family History Mother , in her 70s Congestive heart failure (CHF) Breast cancer Lung cancer from this Father No problems noted. Other Hypertension No family history of adverse response to anesthesia Ulcerative colitis Denies family history of Colon cancer Ovarian cancer Prostate cancer Myocardial infarction Social History Smoking Status: Former smoker Tobacco Type: Cigarettes Years Smoked: 30; Second Hand Exposure: No; Hx Alcohol Use: Yes Alcohol type: hard liquor Alcohol Intake Frequency Comment: weekends only Hx Substance Use: No Preferred Language: Djiboutian Communication Ability: Effective Visual Impairment: No Limitations Hearing Ability: Normal Social Work Specialist Required: No Beliefs That Will Affect Care: None marital status: marital status details: 5 kids Current Living Situation: Alone Current Living Situation Comment: personal caregivers 4 days a week for 2 hours a day. 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 other: lives in [place] Feels Safe at Home: Yes Childhood Exposure to Second-Hand Smoke: Yes Dental Care, Regularly: No Physical Activity Frequency: Does not Exercise Assistive Devices: Oxygen - Continuous and Walker Review of Systems A total of 10 systems reviewed and were otherwise negative Physical Exam Vital Signs Vital Signs - 24 hr 12/06/21 01:40 12/06/21 01:55 Temperature 37.1 C Temperature Source Oral Pulse Rate 110 H Respiratory Rate 35 H Respiratory Effort / Characteristics Labored Blood Pressure 135/99 Blood Pressure Mean 111 Pulse Oximetry 98 94 Oxygen Delivery Method Nasal Cannula Nasal Cannula Oxygen Flow Rate 3 3 Sepsis Recent Fever Within 48 Hours No Sepsis New/Unexplained Change in Mental Status No Sepsis Action Taken by Nursing No Action Required VITALS: Vitals are noted on the nurse's note and reviewed by myself. Vital signs reviewed GENERAL: Pleasant female with audible wheeze, in no acute distress, nondiaphoretic, well-developed well-nourished. SKIN: The skin was without rashes, erythema, edema, or bruising. There is no tenting of the skin. Capillary reflex less than 2 seconds. HEAD: Normocephalic atraumatic. EARS: External auditory canals clear, EYES: Pupils equal round and reactive to light and accommodation. Conjunctivae without injection, sclerae without icterus. Extraocular movements intact. NOSE: Patent, turbinates without inflammation or discharge. MOUTH: Mucous membranes moist. Pharynx without erythema or exudate. Uvula midline. Airway patent. Tongue does not deviate. NECK: Supple without nuchal rigidity. No lymphadenopathy. No thyromegaly. Cervical spine is nontender. No JVD. HEART: Regular rate and rhythm LUNGS: Mild diffuse inspiratory and expiratory wheezes No retractions or accessory muscle use. ABDOMEN: Positive bowel sounds x 4. Normal tympanic percussion. Soft, nontender, without masses or organomegaly. Clarke sign negative. No guarding or rebound tenderness. No CVA tenderness MUSCULOSKELETAL: No muscle atrophy, erythema, or edema noted. NEURO: Patient was alert and oriented to person place and time. Normal sensatio n to light and sharp touch. No focal neurological deficits. Course Administered Medications Discontinued Medications Albuterol (Albut/Ipratrop 3mg/0.5mg Neb 3 Ml Vial) 3 ml NEB NOW STA; Protocol Stop: 12/06/21 01:41 Last Admin: 12/06/21 01:52 Dose: 3 ml Documented by: [id number] Furosemide (Furosemide 40 Mg/4 Ml Vial) 80 mg IV ONE ONE Stop: 12/06/21 03:07 Last Admin: 12/06/21 03:21 Dose: 80 mg Documented by: [id number] Nitroglycerin (Nitroglycerin 2% Ointment 30gm Tube) 1 inch EXT NOW ONE Stop: 12/06/21 03:07 Last Admin: 12/06/21 03:21 Dose: 1 inch Documented by: [id number] Medical Decision Making Medical Records Attestation: I reviewed the patient's medical records. Home Medications Current Medication List: was personally reviewed by me Laboratory Data Attestation: I reviewed the patient's lab results. Result diagrams: 12/06/21 01:46 12/06/21 01:46 Lab Results 12/06/21 12/06/21 12/06/21 Range/Units 01:46 01:46 01:46 WBC 11.61 H (4.8-10.8) K/uL RBC 4.02 L (4.2-5.4) M/uL Hgb 11.4 L (12.0-16.0) g/dL Hct 34.4 L (37-47) % MCV 85.6 (80-100) fL MCH 28.4 (25-34) pg MCHC 33.1 (32-36) g/dL RDW Std Deviation 50.2 H (36.4-46.3) fL RDW Coeff of Logan 16.1 H (11.5-14.5) % Plt Count 360 (130-400) K/uL MPV 9.1 (7.4-10.4) fL Immature Gran % (Auto) 0.4 % Neut % (Auto) 71.8 % Lymph % (Auto) 20.5 % Alger % (Auto) 5.3 % Eos % (Auto) 1.7 % Baso % (Auto) 0.3 % Neut # (Auto) 8.33 H (1.4-6.5) K/uL Lymph # (Auto) 2.38 (1.2-3.4) K/uL Alger # (Auto) 0.62 H (0.11-0.59) K/uL Eos # (Auto) 0.20 (0-0.5) K/uL Baso # (Auto) 0.03 (0-0.2) K/uL Immature Gran # (Auto) 0.05 H (0.00-0.02) K/uL Sodium 138 (136-145) mmol/L Potassium 3.6 (3.5-5.1) mmol/L Chloride 101 (98-107) mmol/L Carbon Dioxide 28 (21-32) mmol/L Anion Gap 9 (3-11) BUN 13 (6-23) mg/dl Creatinine 0.79 (0.6-1.2) mg/dl Est Cr Clr Drug Dosing 105.6 ml/min Est GFR ( Amer) 95.0 ml/min Est GFR (Non-Af Amer) 81.9 ml/min BUN/Creatinine Ratio 16.5 (10-20) Glucose 115 H (70-99(Fasting)) mg/dl Calcium 9.7 (8.5-10.1) mg/dl Magnesium 2.0 (1.7-2.4) mg/dl Total Bilirubin 0.4 (0.2-1.0) mg/dl AST 16 (13-39) U/L ALT 16 (7-52) U/L Alkaline Phosphatase 112 H (34-104) U/L Troponin I High Sens 10.1 (0-14) pg/ml B-Natriuretic Peptide 528 H (0-100) pg/ml Total Protein 8.0 (6.0-8.3) gm/dl Albumin 4.0 (3.4-5.0) gm/dl Globulin 4.0 (2.5-4.0) gm/dl Albumin/Globulin Ratio 1.0 (0.9-2) SARS-CoV-2, RNA, NAAT (NEGATIVE) 12/06/21 Range/Units 02:08 WBC (4.8-10.8) K/uL RBC (4.2-5.4) M/uL Hgb (12.0-16.0) g/dL Hct (37-47) % MCV (80-100) fL MCH (25-34) pg MCHC (32-36) g/dL RDW Std Deviation (36.4-46.3) fL RDW Coeff of Logan (11.5-14.5) % Plt Count (130-400) K/uL MPV (7.4-10.4) fL Immature Gran % (Auto) % Neut % (Auto) % Lymph % (Auto) % Alger % (Auto) % Eos % (Auto) % Baso % (Auto) % Neut # (Auto) (1.4-6.5) K/uL Lymph # (Auto) (1.2-3.4) K/uL Alger # (Auto) (0.11-0.59) K/uL Eos # (Auto) (0-0.5) K/uL Baso # (Auto) (0-0.2) K/uL Immature Gran # (Auto) (0.00-0.02) K/uL Sodium (136-145) mmol/L Potassium (3.5-5.1) mmol/L Chloride (98-107) mmol/L Carbon Dioxide (21-32) mmol/L Anion Gap (3-11) BUN (6-23) mg/dl Creatinine (0.6-1.2) mg/dl Est Cr Clr Drug Dosing ml/min Est GFR ( Amer) ml/min Est GFR (Non-Af Amer) ml/min BUN/Creatinine Ratio (10-20) Glucose (70-99(Fasting)) mg/dl Calcium (8.5-10.1) mg/dl Magnesium (1.7-2.4) mg/dl Total Bilirubin (0.2-1.0) mg/dl AST (13-39) U/L ALT (7-52) U/L Alkaline Phosphatase (34-104) U/L Troponin I High Sens (0-14) pg/ml B-Natriuretic Peptide (0-100) pg/ml Total Protein (6.0-8.3) gm/dl Albumin (3.4-5.0) gm/dl Globulin (2.5-4.0) gm/dl Albumin/Globulin Ratio (0.9-2) SARS-CoV-2, RNA, NAAT NEGATIVE (NEGATIVE) Imaging Data Attestation: I personally reviewed and interpreted this imaging study as follows: MDM Narrative Prior records/ancillary studies reviewed. Triage Nursing notes reviewed. Additional history obtained from EMS The patient's history was concerning for respiratory difficulties. Differential diagnosis: Etiologies such as infections, reactive airway disease, pneumonia, pneumothora x, COPD, CHF, cardiac ischemia, pulmonary embolism, musculoskeletal, gastrointestinal, as well as others were entertained. Physical examination: As above. ER treatment provided: An order was placed for continuous cardiac monitoring. The monitor shows a rate of 60-1 50 with a A. fib rhythm. Nebulizer, Lasix, nitro On reassessment the patient felt better. Diagnostic interpretation by me: The electrocardiogram was ordered for dyspnea EKG: Poor baseline, irregularly irregular. Impression A. fib with RVR interpreted by myself The labs revealed elevated BNP. Negative troponin Imaging studies: Chest a-ntm-frbh-old male with pulmonary congestion concerning for heart failure per my interpretation Consultation: A consultation was placed with the hospitalist. The case was discussed and diagnostics were reviewed. The patient was evaluated in the ER for further treatment. This appears to be consistent with CHF and COPD exacerbation. Medicine is consulted. She will be admitted. She was given Lasix nitro and nebulizer. By the evaluation outlined above emergent etiologies such as cardiac ischemia, pulmonary embolism, reactive airway disease, pneumonia, pneumothorax, musculoskeletal, serious bacterial infections, as well as others were deemed relatively unlikely. The pt informed about the findings as listed above. All questions were answered and pleased with the treatment. The chart was completed utilizing [employer] voice recognition software. Grammatical errors, random word insertions, pronoun errors, and incomplete sentences are an occassional consequence of this system due to software limitations, ambient noise, and hardware issues. Any formal questions or concerns about the content, text, or information contained within the body of this dictation should be directly addressed to the physician assistant construction superintendent for clarification. Impression & Plan Acute exacerbation of chronic obstructive airways disease, Acute on chronic HFrEF (heart failure with reduced ejection fraction) Discharge Plan Visit Data Chief Complaint: Shortness of Breath/Dyspnea ED Provider: Osmar Sanchez ED Midlevel Provider: Jenelle Phillips Discharge Problem: Acute exacerbation of chronic obstructive airways disease, Acute on chronic HFrEF (heart failure with reduced ejection fraction) Forms Stand Alone Forms: My [employer] Prescriptions Prescriptions: No Action metformin 500 mg tablet 500 mg PO BID Qty: 60 RF: 5 quetiapine [Seroquel] 400 mg tablet 400 mg PO HS RF: 0 (DME) Portable Oxygen Misc See Rx Instructions .MEDSUPPLY Qty: 1 RF: 0 Entresto 24-26 mg tablet 1 tab PO BID Qty: 60 RF: 2 atorvastatin 10 mg tablet 10 mg PO QAM Qty: 90 RF: 3 Xarelto 20 mg tablet 20 mg PO QAM Qty: 90 RF: 2 omeprazole 20 mg capsule,delayed release(DR/EC) 20 mg PO DAILYBB Qty: 90 RF: 3 digoxin 125 mcg (0.125 mg) tablet 125 mcg PO QAM Qty: 90 RF: 3 pregabalin 150 mg capsule 150 mg PO BID 30 Days Qty: 60 RF: 5 furosemide 40 mg tablet 80 mg PO DAILY Qty: 180 RF: 1 docusate sodium [Colace] 100 mg capsule 100 mg PO BID Qty: 180 RF: 3 Anoro Ellipta 62.5-25 mcg/actuation blister with device 1 inh INH Q24H Qty: 3 RF: 2 (DME) Incentive Spirometer Misc See Rx Instructions .MEDSUPPLY Qty: 1 RF: 0 metoprolol succinate 100 mg tablet extended release 24 hr 100 mg PO DAILY Qty: 90 RF: 3 diclofenac sodium [Voltaren Arthritis Pain] 1 % gel 2 g topical QID Qty: 100 RF: 0 tramadol 50 mg tablet 50 mg PO DAILY PRN (Reason: pain) Qty: 30 RF: 5 trazodone 100 mg tablet 200 mg PO HS RF: 0 quetiapine [Seroquel] 100 mg Tablet 100 mg PO QAM RF: 0 (DME) Oxygen Home Liters Per Minute See Rx Instructions .ROUTE .MEDSUPPLY Qty: 1 RF: 0 magnesium oxide 400 mg (241.3 mg magnesium) tablet 400 mg PO QAM RF: 0 potassium chloride 20 mEq tablet extended release 40 meq PO QAM RF: 0 hydroxyzine HCl 50 mg Tablet 50 mg PO DAILY PRN (Reason: Anxiety) RF: 0 Referrals Referrals: Antonio Oliver MD [Primary Care Provider] -
[2021-12-06 02:20] LABS: Basophils # (auto) 0.03 K/uL (0-0.2); Basophils % (auto) 0.3 %; Eosinophils % (auto) 1.7 %; Immature Granulocytes # (auto) 0.05 K/uL (0.00-0.02); Immature Granulocytes % (auto) 0.4 %; Lymphocytes # (auto) 2.38 K/uL (1.2-3.4); Lymphocytes % (auto) 20.5 %; Monocytes # (auto) 0.62 K/uL (0.11-0.59); Monocytes % (auto) 5.3 %; Neutrophils # (auto) 8.33 K/uL (1.4-6.5); Neutrophils % (auto) 71.8 %
[2021-12-06 02:25] LABS: Troponin I High Sensitivity 10.1 pg/ml (0-14)
[2021-12-06 02:30] LABS: Potassium 3.6 mmol/L (3.5-5.1)
[2021-12-06 02:47] LABS: BUN Creatinine Ratio 16.5 (10-20); Bilirubin,Total 0.4 mg/dl (0.2-1.0); Calcium 9.7 mg/dl (8.5-10.1); Creatinine Clr Calc Pharmacy 105.6 ml/min; Est GFR (Non-African American) 81.9 ml/min
[2021-12-06] MEDS ORDERED: FUROSEMIDE 40 MG/4 ML VIAL IV ONE (03:06)
[2021-12-06] MEDS ORDERED: NITROGLYCERIN 2% OINTMENT 30GM TUBE EXT ONE (03:06)
[2021-12-06 04:09] LABS: Appearance Urine Clear (Clear); Bacteria Urine Automated Negative (Negative); Bilirubin Urine Negative (Negative); Blood Urine Negative (Negative); Color Urine Yellow; Epithelial Cell Urine Auto >30 /lpf (0-5); Glucose Urine UA Negative (Negative); Ketones Urine Negative (Negative); Leukocyte Esterase Urine 1+ (Negative); Nitrite Urine Negative (Negative); Protein Urine Negative (Negative); Specific Gravity Urine 1.008 (1.000-1.030); Urobilinogen Urine Negative (Negative); pH Urine 6.5 (4.5-7.5)
[2021-12-06 04:34] LABS: Cast Urine Automated 0 /lpf (0-5); RBC Urine Automated 0-4 /hpf (0-4)
--- NOTE | 2021-12-06 05:28 | History & Physical Report ---
Date of Service December 06, 2021 Assessment & Plan (1) Acute on chronic HFrEF (heart failure with reduced ejection fraction): Plan: 60 y/o F Hx schizoaffective, HTN, HLD, DM II, COPD - home 02, morbid obesity, chronic AF, CHF (EF 20%), BiV pacer. Frequent admits for CHF exacerbation. Presents with progressive shortness of breath, pronounce with exertion and lying flat. She has not had CP and denies a cough or fever. The pt admits to dining at [employer] earlier in the day. On arrival to the ER she was tachycardic and hypertensive. Labs are notable for mild leukocytosis. An EKG demonstrated rapid AF at an approximate rate of 110, without evidence of acute ischemia. CHF is confirmed on CXR. 1) CHF exacerbation - may be due to salt intake. Increase Lasix dose and convert to IV, daily weight, I/O, cardiology consult for med adjustment on DC. Cont Entresto. 2) COPD - no evidence of exacerbation on labs. 02 protocol, cont prescribed inhaler. 3) AF - rapid ` 110 BPM. She is likely partially compensating and her rate may improve with diuresis. Consider rate control if she remians tachy when compensated. Cont digoxin, metoprolol. Cont Xarelto. 4) DM - sliding scale 5) HTN, HLD - cont metoprolol, statin Full code - Xarelto prophylaxis Total time for this admit including review of labs, meds, imaging, records - discussion with pt and ER attending - 55 min (2) Atrial fibrillation: History of Present Illness Chief Complaint: Short of breath Primary Care Provider: Antonio Oliver MD 60 y/o F Hx schizoaffective, HTN, HLD, DM II, COPD - home 02, morbid obesity, chronic AF, CHF (EF 20%), BiV pacer. Frequent admits for CHF exacerbation. Presents with progressive shortness of breath, pronounce with exertion and lying flat. She has not had CP and denies a cough or fever. The pt admits to dining at [employer] earlier in the day. On arrival to the ER she was tachycardic and hypertensive. Labs are notable for mild leukocytosis. An EKG demonstrated rapid AF at an approximate rate of 110, without evidence of acute ischemia. CHF is confirmed on CXR. PMH: 1) HTN 2) HLD 3) Obese 4) PE - 2013 5) DM II 6) Chronic AF 7) COPD - 3L home 02 8) Systolic CHF - EF ~ 20% 9) Severe pulmonary HTN 10) Schizoaffective disorder 11) VT 12) BiV pacer Surgical: 1) Tib/fib ORIF 2) Tubal ligation 3) AICD/pacer 4) Ulnar nerve decompression Social: Prior smoker. Does not drink alcohol. Family: Mother - CHF Allergies Allergy/AdvReac Type Severity Reaction Status Date / Time fentanyl Allergy Mild RASH,ITCHIN Verified 12/06/21 02:39 G Home Medications Medication Instructions Recorded Confirmed Type trazodone 100 mg tablet 200 mg PO HS 10/07/18 12/06/21 History metformin 500 mg tablet 500 mg PO BID #60 tab 12/15/18 12/06/21 Rx quetiapine 100 mg tablet (Seroquel) 100 mg PO QAM 01/02/19 12/06/21 History Oxygen Home #1 ea 05/09/19 11/30/21 Rx docusate sodium 100 mg capsule 100 mg PO BID #180 cap 06/28/19 12/06/21 Rx (Colace) quetiapine 400 mg tablet (Seroquel) 400 mg PO HS tab 07/05/19 12/06/21 History Portable Oxygen #1 ea 07/29/20 11/30/21 Rx sacubitril 24 mg-valsartan 26 mg 1 tab PO BID #60 tab 08/27/20 12/06/21 Rx tablet (Entresto) magnesium oxide 400 mg (241.3 mg 400 mg PO QAM 03/24/21 12/06/21 History magnesium) tablet potassium chloride 20 mEq 40 meq PO QAM 03/24/21 12/06/21 History tablet,extended release atorvastatin 10 mg tablet 10 mg PO QAM #90 tab 04/21/21 12/06/21 Rx hydroxyzine HCl 50 mg tablet 50 mg PO DAILY PRN 05/06/21 12/06/21 History rivaroxaban 20 mg tablet (Xarelto) 20 mg PO QAM #90 tab 05/19/21 12/06/21 Rx diclofenac sodium 1 % topical gel 2 g TOPICAL QID #100 g 05/27/21 12/06/21 Rx (Voltaren Arthritis Pain) omeprazole 20 mg capsule,delayed 20 mg PO DAILYBB #90 cap 06/12/21 12/06/21 Rx release digoxin 125 mcg (0.125 mg) tablet 125 mcg PO QAM #90 tab 06/16/21 12/06/21 Rx pregabalin 150 mg capsule 150 mg PO BID 30 Days #60 cap 08/10/21 12/06/21 Rx metoprolol succinate 100 mg 100 mg PO DAILY #90 tab 10/30/21 12/06/21 Rx tablet,extended release 24 hr furosemide 40 mg tablet 80 mg PO DAILY #180 tab 11/11/21 12/06/21 Rx Incentive Spirometer #1 ea 11/16/21 11/30/21 Rx umeclidinium 62.5 mcg-vilanterol 1 inh INH Q24H #3 inhaler 11/16/21 12/06/21 Rx 25 mcg/actuation powdr for inhalation (Anoro Ellipta) tramadol 50 mg tablet 50 mg PO DAILY PRN #30 tab 11/30/21 12/06/21 Rx Past Med/Surg History Medical History Adrenal adenoma Rt sided imaging 01/2020 KIRSTIN (acute kidney injury) Asthma Atrial fibrillation on xarelto/metoprolol/digoxin--follows with Dr. Pelayo Cellulitis of left abdominal wall CHF (congestive heart failure) 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% per echo 06/06/18; non-obstructive CAD per cath 2006 Chronic respiratory failure with hypoxia oxygen taper COPD (chronic obstructive pulmonary disease) Depression Diabetes type 2, controlled patient denies having diabetes, does not want further testing even though she is prescribed Metformin Encounter for pre-operative examination Fracture of tibia and fibula GERD (gastroesophageal reflux disease) Glaucoma ? pt denies History of alcohol use History of tobacco abuse HTN (hypertension) Hypotension 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 Lab test negative for COVID-19 virus Lightheadedness Memory impairment Morbid obesity Nausea and vomiting On anticoagulant therapy xarelto daily On home oxygen therapy 3 L N/C at all times Pericardial effusion Peripheral neuropathy Preop cardiovascular exam PTSD (post-traumatic stress disorder) Pulmonary embolism 2013 while living in [place] Pulmonary hypertension Restrictive lung disease Schizoaffective disorder Sepsis Severe mitral regurgitation Small bowel obstruction Ventricular arrhythmia Vitamin D deficiency Surgical History AICD (automatic cardioverter/defibrillator) present meditronic History of cardiac cath x2?-- History of decompression of both ulnar nerves History of eye surgery left History of hernia surgery x2 History of incision and drainage (~09/30/20) left tibia History of open reduction and internal fixation (ORIF) procedure left tibia--hardware in place History of tooth extraction partial upper S/P ORIF (open reduction internal fixation) fracture ankle, left--hardware in place S/P tubal ligation Family History Mother , in her 70s Congestive heart failure (CHF) Breast cancer Lung cancer from this Father No problems noted. Other Hypertension No family history of adverse response to anesthesia Ulcerative colitis Denies family history of Colon cancer Ovarian cancer Prostate cancer Myocardial infarction Social History Smoking Status: Former smoker Tobacco Type: Cigarettes Years Smoked: 30; Second Hand Exposure: No; Hx Alcohol Use: Yes Alcohol type: hard liquor Alcohol Intake Frequency Comment: weekends only Hx Substance Use: No Preferred Language: German Communication Ability: Effective Visual Impairment: No Limitations Hearing Ability: Normal Silica Spray Mixer Required: No Beliefs That Will Affect Care: None marital status: marital status details: 5 kids Current Living Situation: Alone Current Living Situation Comment: personal caregivers 4 days a week for 2 hours a day. 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; was in [employer] x 7 yr other: lives in [place] Feels Safe at Home: Yes Childhood Exposure to Second-Hand Smoke: Yes Dental Care, Regularly: No Physical Activity Frequency: Does not Exercise Assistive Devices: Oxygen - Continuous and Walker Review of Systems Review of Systems: Gen: Denies fevers, night sweats, rigors, fatigue, malaise, weight loss/gain ENT: Denies congestion, throat pain, hearing loss Eyes: Denies acute visual changes CV: + exertional dyspnea, orthopnea - no CP Pulmonary: + SOB as above GI: Denies N/V, diarrhea, constipation Neuro: Denies acute or unilateral weakness, acute gait impairment, headache or acute visual changes Musculoskeletal: Denies joint pain, inflammation Endocrine: Denies polydipsia, polyuria Skin: Denies acute rashes or ulcers Physical Exam Physical Exam: General: Obese, middle-aged F, AAO x 3, + tachypnea ENT: No erythema or exudates, no thrush Eyes: RITA, EOMI Head and neck: Normocephalic, atraumatic, No JVD, neck is supple. Chest/heart: Nontender, S1,2, RRR, no murmurs, no gallops Lungs: CTAB, no wheezing or crackles Abdomen: Nontender, nondistended, BS+ Neuro: AAO x 3, speech is clear, no unilateral weakness or loss of sensation, coordination intact Musculoskeletal: No joint inflammation, muscle tenderness, FROM Skin: No acute rashes or ulcers Extremities: Mild BL edema Results & Data Results & Data ([facility]) Vital Signs (Past 12 Hours) Vital Signs Temp Pulse Resp BP Pulse Ox 12/06/21 01:55 98.8 F 110 H 35 H 135/99 94 12/06/21 01:40 98 PG Care Time/CCT Total # of Minutes Spent Total Time Spent with Patient: Total time spent is greater than 50% in coordination of care (as documented) at patient's floor/unit and/or counseling patient: Coding Level of Care Code 59094 Initial Inpt Care Lvl 3 Diagnoses Acute on chronic HFrEF (heart failure with reduced ejection fraction) I50.23 Atrial fibrillation I48.20 Atrial fibrillation type: unspecified chronic (1) Atrial fibrillation Atrial fibrillation type: unspecified chronic Qualified Code(s): I48.20 - Chronic atrial fibrillation, unspecified
[2021-12-06] MEDS ORDERED: traMADol HCL 50 MG TABLET PO PRN (06:18)
[2021-12-06] MEDS ORDERED: NITROGLYCERIN 2% OINTMENT 30GM TUBE EXT STA (06:18)
[2021-12-06] MEDS ORDERED: GLUCOSE 10 TABS/TUBE PO PRN (06:19)
[2021-12-06] MEDS ORDERED: GLUCOSE 40% GEL 15 GM TUBE PO PRN (06:19)
[2021-12-06] MEDS ORDERED: DEXTROSE 50% 50 ML SYRINGE IV PRN (06:19)
[2021-12-06] MEDS ORDERED: GLUCAGON FOR INJ 1 MG VIAL SQ PRN (06:19)
[2021-12-06] MEDS ORDERED: CARBOHYDRATES FOR HYPOGLYCEMIA PO PRN (06:19)
[2021-12-06] MEDS: FUROSEMIDE 40 MG/4 ML VIAL IV SCH ×3 (07:33→21:19)
[2021-12-06] MEDS: PANTOprazole 40 MG TAB PO SCH (07:33)
--- NOTE | 2021-12-06 08:01 | XRay Report ---
XR chest 1V portable CLINICAL HISTORY: Dyspnea COMPARISON STUDY: Chest CT May 06, 2021. Chest radiograph October 16, 2021. FINDINGS: A left biventricular pacer/AICD is in place. There is marked cardiomegaly. A small to moder ate left pleural effusion is again noted. This was shown on prior exam. Small right pleural effusion is present. Interstitial thickening consistent with pulmonary edema is noted. Asymmetric left basilar opacity is again noted. IMPRESSION: 1. Marked cardiomegaly with mild interstitial pulmonary edema. 2. Persistent small to moderate left pleural effusion with left basilar opacity. Small right pleural effusion. ACT 112: Negative or not required by law. Electronically signed by: Gurmeet Zamora M.D. 12/06/2021 8:00 AM
[2021-12-06] MEDS: METOPROLOL SUCC 50MG EXT REL TAB PO SCH (09:27)
[2021-12-06] MEDS: POTASSIUM CHLORIDE CRTAB 20 MEQ TABCR PO SCH (09:27)
[2021-12-06] MEDS: QUEtiapine FUMARATE 100 MG TABLET PO SCH (09:27)
[2021-12-06] MEDS: PREGABALIN 150 MG CAP PO SCH ×2 (09:27→20:04)
[2021-12-06] MEDS: UMECLIDINIUM/VILANTEROL 62.5/25MCG 7 PUFFS/INHALER INH SCH (09:27)
[2021-12-06] MEDS: VALSARTAN/SACUBITRIL 26/24MG TAB PO SCH ×2 (09:28→20:01)
[2021-12-06] MEDS: RIVAROXABAN 20 MG TAB PO SCH (09:28)
[2021-12-06] MEDS: ATORVASTATIN 10 MG TAB PO SCH (09:28)
[2021-12-06] MEDS: DOCUSATE SODIUM 100 MG CAP PO SCH ×2 (09:29→20:02)
[2021-12-06] MEDS: MAGNESIUM OXIDE 400 MG TAB PO SCH (09:54)
[2021-12-06] MEDS ORDERED: SODIUM CHLORIDE 0.65% NA SOLN 45 ML (OCEAN) ONE (13:11)
[2021-12-06] MEDS: DIGOXIN 0.125 MG TAB PO SCH (15:25)
--- NOTE | 2021-12-06 15:35 | History & Physical Bridge Note ---
Date of Service December 06, 2021 History & Physical Bridge Note I have examined the patient, reviewed the History & Physical and in the interval since the performance of the History & Physical I have noted the following changes of clinical significance: Patient seen in the afternoon of admission and is feeling a little bit better. Less short of breath. She is making plenty of urine. Vitals reviewed Telemetry with atrial flutter and paced rhythm with rates in the 90s to 100s, PVCs Gen: [AAOx3, NAD, obese HEENT: Anicteric sclerae, EOMI CV: Irregularly irregular, no mgr nl S1S2 Pulm: Diminished at the bases, crackles Abd: +BS soft NT ND no masses or hernias Ext: No edema Skin: No rashes, warm/dry Neuro: Full strength throughout 60-year-old female here with acute on chronic HFrEF Continue IV diuresis Will likely need increased dose of p.o. Lasix on discharge higher than her usual Lasix 80 mg p.o. once daily Appreciate cardiology consultation Follow BMP, magnesium Check echocardiogram
--- NOTE | 2021-12-06 16:39 | Cardiology Consultation ---
Date of Consultation December 06, 2021 Assessment & Plan (1) Acute on chronic HFrEF (heart failure with reduced ejection fraction): (2) Nonischemic cardiomyopathy: (3) ICD (implantable cardioverter-defibrillator) in place: (4) Atrial fibrillation, permanent: (5) Anticoagulant long-term use: (6) Ventricular tachycardia: (7) Mitral regurgitation: ASSESSMENT/PLAN: 1. Acute on Chronic HF with reduced EF: Difficult exam but based on history, likely hypervolemic. Continue diuretic intravenously with a goal of 1-2 L negative fluid balance today. Presented with class 4 symptoms. Continue Entresto, metoprolol succinate, digoxin. Start spironolactone. Recommend SG LT 2 inhibitor on discharge. Exacerbation likely related to noncompliance with low-sodium diet. Discussed the importance of low-sodium diet today. Monitor I&Os. Monitor renal function and electrolytes and replete as appropriate. 2. Nonischemic cardiomyopathy: Severely reduced LV systolic function. ICD in place and managed by Dr. Pelayo. Continue heart failure medications as above. 3. Permanent atrial fibrillation: Asymptomatic. Heart rate reasonably controlled. Continue rate-controlling medications. Continue anticoagulation for stroke risk reduction. Check digoxin level. 4. Ventricular tachycardia: This has been noted in the past on ICD interrogation in the outpatient setting. Continue beta-julee. 5. Mitral regurgitation: Echo has been ordered by the primary hospitalist service. Formal interpretation is pending. 6. Disposition: Cardiology will continue to follow along. Follow with Dr. Pelayo upon discharge. Continue to follow with heart failure program. Plan of care communicated with Dr. Hein of the primary hospitalist service. Thank you for allowing me to participate in the care of your patient. Please call for any other questions or concerns. Sincerely, Michael Starks M.D. History of Present Illness Reason for Consultation: CHF Requesting Physician: Dr. Hagen Attending Physician: Monserrat Hein MD History of Present Illness Ms. Gonzales is a pleasant 60-year-old female with history significant for nonischemic cardiomyopathy, ICD, atrial fibrillation, chronic systolic CHF, COPD on supplemental oxygen 3 L via nasal cannula at home, hypertension, and prediabetes. She also reportedly has schizoaffective disorder, PTSD, pulmonary embolism (2013), and alcohol abuse. Her primary acetone recovery worker is Dr. Pelayo. She follows in the Heart failure program with Catalina Almanza. She has had the following studies/procedures: 1. Cardiac catheterization 2006 [facility]: Normal coronary arteries. 2. Single-chamber ICD 2006 [facility]. 3. Echo 08/12/2020: Moderately dilated LV. EF 20-25%. Severe left atrial dilation. Moderate MR. Small pericardial effusion. Normal RVSP. She was admitted on 12/06/2021 with shortness of breath. She states that for the past week she has had worsening shortness of breath, dyspnea with exertion, and orthopnea. She has not noted any swelling. She weighs herself regularly and states that her weight has been stable and remains under 268 lb. She states that she typically maintains a low-sodium diet but she recently has been enjoying garlic balogna with cheese and crackers and went to [employer] as well for a Big Mac and fries. She denies chest pain, palpitations, syncope, near-syncope, melena, hematochezia, hematuria, or other bleeding. She states that in the past she took Lasix 80 mg twice daily but with her bowel obstruction several months ago, the dose was reduced and then later increased to 80 mg once daily. She states she felt better when taking 80 mg twice daily. Review of systems:As above. Review of systems otherwise negative/unremarkable. Family history:Noncontributory. Social history:She quit smoking in 2015. Consumes 2 or 3 oz of vodka once per week. She denies drugs. She lives alone. She has 1 daughter and 4 sons. One son lives locally but she does not have much contact with him. She was unaccompanied in her hospital room. Allergies Allergy/AdvReac Type Severity Reaction Status Date / Time fentanyl Allergy Mild RASH,ITCHIN Verified 12/06/21 02:39 G Home Medications Medication Instructions Recorded Confirmed Type trazodone 100 mg tablet 200 mg PO HS 10/07/18 12/06/21 History metformin 500 mg tablet 500 mg PO BID #60 tab 12/15/18 12/06/21 Rx quetiapine 100 mg tablet (Seroquel) 100 mg PO QAM 01/02/19 12/06/21 History Oxygen Home #1 ea 05/09/19 11/30/21 Rx docusate sodium 100 mg capsule 100 mg PO BID #180 cap 06/28/19 12/06/21 Rx (Colace) quetiapine 400 mg tablet (Seroquel) 400 mg PO HS tab 07/05/19 12/06/21 History Portable Oxygen #1 ea 07/29/20 11/30/21 Rx sacubitril 24 mg-valsartan 26 mg 1 tab PO BID #60 tab 08/27/20 12/06/21 Rx tablet (Entresto) magnesium oxide 400 mg (241.3 mg 400 mg PO QAM 03/24/21 12/06/21 History magnesium) tablet potassium chloride 20 mEq 40 meq PO QAM 03/24/21 12/06/21 History tablet,extended release atorvastatin 10 mg tablet 10 mg PO QAM #90 tab 04/21/21 12/06/21 Rx hydroxyzine HCl 50 mg tablet 50 mg PO DAILY PRN 05/06/21 12/06/21 History rivaroxaban 20 mg tablet (Xarelto) 20 mg PO QAM #90 tab 05/19/21 12/06/21 Rx diclofenac sodium 1 % topical gel 2 g TOPICAL QID #100 g 05/27/21 12/06/21 Rx (Voltaren Arthritis Pain) omeprazole 20 mg capsule,delayed 20 mg PO DAILYBB #90 cap 06/12/21 12/06/21 Rx release digoxin 125 mcg (0.125 mg) tablet 125 mcg PO QAM #90 tab 06/16/21 12/06/21 Rx pregabalin 150 mg capsule 150 mg PO BID 30 Days #60 cap 08/10/21 12/06/21 Rx metoprolol succinate 100 mg 100 mg PO DAILY #90 tab 10/30/21 12/06/21 Rx tablet,extended release 24 hr furosemide 40 mg tablet 80 mg PO DAILY #180 tab 11/11/21 12/06/21 Rx Incentive Spirometer #1 ea 11/16/21 11/30/21 Rx umeclidinium 62.5 mcg-vilanterol 1 inh INH Q24H #3 inhaler 11/16/21 12/06/21 Rx 25 mcg/actuation powdr for inhalation (Anoro Ellipta) tramadol 50 mg tablet 50 mg PO DAILY PRN #30 tab 11/30/21 12/06/21 Rx Patient History Medical History (Updated 12/06/21 @ 16:50 by Noah Starks MD) Adrenal adenoma Rt sided imaging 01/2020 KIRSTIN (acute kidney injury) Asthma Atrial fibrillation on xarelto/metoprolol/digoxin--follows with Dr. Pelayo Cellulitis of left abdominal wall CHF (congestive heart failure) 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% per echo 06/06/18; non-obstructive CAD per cath 2006 Chronic respiratory failure with hypoxia oxygen taper COPD (chronic obstructive pulmonary disease) Depression Diabetes type 2, controlled patient denies having diabetes, does not want further testing even though she is prescribed Metformin Encounter for pre-operative examination Fracture of tibia and fibula GERD (gastroesophageal reflux disease) Glaucoma ? pt denies History of alcohol use History of tobacco abuse HTN (hypertension) Hypotension 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 Lab test negative for COVID-19 virus Lightheadedness Memory impairment Mitral regurgitation Morbid obesity Nausea and vomiting On anticoagulant therapy xarelto daily On home oxygen therapy 3 L N/C at all times Pericardial effusion Peripheral neuropathy Preop cardiovascular exam PTSD (post-traumatic stress disorder) Pulmonary embolism 2013 while living in [place] Pulmonary hypertension Restrictive lung disease Schizoaffective disorder Sepsis Severe mitral regurgitation Small bowel obstruction Ventricular arrhythmia Vitamin D deficiency Surgical History AICD (automatic cardioverter/defibrillator) present meditronic History of cardiac cath x2?-- History of decompression of both ulnar nerves History of eye surgery left History of hernia surgery x2 History of incision and drainage (~09/30/20) left tibia History of open reduction and internal fixation (ORIF) procedure left tibia--hardware in place History of tooth extraction partial upper S/P ORIF (open reduction internal fixation) fracture ankle, left--hardware in place S/P tubal ligation Family History Mother , in her 70s Congestive heart failure (CHF) Breast cancer Lung cancer from this Father No problems noted. Other Hypertension No family history of adverse response to anesthesia Ulcerative colitis Denies family history of Colon cancer Ovarian cancer Prostate cancer Myocardial infarction Social History Smoking Status: Never smoker Tobacco Type: Cigarettes Years Smoked: 30; Second Hand Exposure: No; Hx Alcohol Use: Yes Alcohol type: hard liquor Alcohol Intake Frequency Comment: weekends only Hx Substance Use: Yes Substance Use Type Other:: Marijuana oil PRN Preferred Language: Indonesian Communication Ability: Effective Visual Impairment: No Limitations Hearing Ability: Normal Web Content Director Required: No Beliefs That Will Affect Care: None marital status: marital status details: 5 kids Current Living Situation: Alone Current Living Situation Comment: personal caregivers 4 days a week for 2 hours a day. 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 Alert and oriented. HEENT: Anicteric sclera. Neck: Thick neck. No bruit. Normal carotid upstrokes. Cardiac: PMI was nonpalpable. No ventricular heave. Irregularly irregular with normal heart rate. Normal S1-S2. No murmurs, rubs, or gallops. Pulmonary: Decreased breath sounds bilaterally, but otherwise clear to auscultation bilaterally without wheezes, rales, or rhonchi. Abdomen: Soft, nontender, nondistended, with hypoactive bowel sounds. No bruits noted. Extremities: 2+ radial pulses bilaterally. 2+ posterior tibialis pulses bilaterally. Trace bilateral lower extremity edema. No cyanosis. Psychiatric: Affect appears appropriate. Results & Data ([facility]) Vital Signs (Past 12 Hours) Vital Signs Temp Pulse Pulse Resp BP Pulse Ox 12/06/21 15:48 36.8 C 73 18 108/78 96 12/06/21 15:25 105 H 12/06/21 14:19 104 H 12/06/21 11:08 36.5 C 90 18 107/83 97 12/06/21 09:25 96 H 108/78 12/06/21 07:38 87 100/82 12/06/21 06:45 102 H 12/06/21 06:44 94 H 22 117/79 98 12/06/21 05:36 97 H 24 97/73 L 96 Intake & Output 0712/05/21 12/06/21 12/07/21 06:59 06:59 06:59 06:59 Intake Total 900 / 900 Output Total 1650 / 1650 Balance -750 / -750 Weight 267 lb 3.204 oz Laboratory Results Laboratory Results - last 24 hr 12/06/21 12/06/21 12/06/21 01:46 01:46 01:46 WBC 11.61 H RBC 4.02 L Hgb 11.4 L Hct 34.4 L MCV 85.6 MCH 28.4 MCHC 33.1 RDW Std Deviation 50.2 H RDW Coeff of Logan 16.1 H Plt Count 360 MPV 9.1 Immature Gran % (Auto) 0.4 Neut % (Auto) 71.8 Lymph % (Auto) 20.5 [place] % (Auto) 5.3 Eos % (Auto) 1.7 Baso % (Auto) 0.3 Neut # (Auto) 8.33 H Lymph # (Auto) 2.38 [place] # (Auto) 0.62 H Eos # (Auto) 0.20 Baso # (Auto) 0.03 Immature Gran # (Auto) 0.05 H Sodium 138 Potassium 3.6 Chloride 101 Carbon Dioxide 28 Anion Gap 9 BUN 13 Creatinine 0.79 Est Cr Clr Drug Dosing 105.6 Est GFR ( Amer) 95.0 Est GFR (Non-Af Amer) 81.9 BUN/Creatinine Ratio 16.5 Glucose 115 H Calcium 9.7 Magnesium 2.0 Total Bilirubin 0.4 AST 16 ALT 16 Alkaline Phosphatase 112 H Troponin I High Sens 10.1 B-Natriuretic Peptide 528 H Total Protein 8.0 Albumin 4.0 Globulin 4.0 Albumin/Globulin Ratio 1.0 Urine Color Urine Appearance Urine pH Ur Specific Aurora Urine Protein Urine Glucose (UA) Urine Ketones Urine Blood Urine Nitrite Urine Bilirubin Urine Urobilinogen Ur Leukocyte Esterase Urine WBC (Auto) Urine RBC (Auto) U Hyaline Cast (Auto) U Epithel Cells (Auto) Urine Bacteria (Auto) SARS-CoV-2, RNA, NAAT 12/06/21 12/06/21 02:08 03:55 WBC RBC Hgb Hct MCV MCH MCHC RDW Std Deviation RDW Coeff of Logan Plt Count MPV Immature Gran % (Auto) Neut % (Auto) Lymph % (Auto) [place] % (Auto) Eos % (Auto) Baso % (Auto) Neut # (Auto) Lymph # (Auto) [place] # (Auto) Eos # (Auto) Baso # (Auto) Immature Gran # (Auto) Sodium Potassium Chloride Carbon Dioxide Anion Gap BUN Creatinine Est Cr Clr Drug Dosing Est GFR ( Amer) Est GFR (Non-Af Amer) BUN/Creatinine Ratio Glucose Calcium Magnesium Total Bilirubin AST ALT Alkaline Phosphatase Troponin I High Sens B-Natriuretic Peptide Total Protein Albumin Globulin Albumin/Globulin Ratio Urine Color Yellow Urine Appearance Clear Urine pH 6.5 Ur Specific [place] 1.008 Urine Protein Negative Urine Glucose (UA) Negative Urine Ketones Negative Urine Blood Negative Urine Nitrite Negative Urine Bilirubin Negative Urine Urobilinogen Negative Ur Leukocyte Esterase 1+ H Urine WBC (Auto) 5-10 H Urine RBC (Auto) 0-4 U Hyaline Cast (Auto) 0 U Epithel Cells (Auto) >30 H Urine Bacteria (Auto) Negative SARS-CoV-2, RNA, NAAT NEGATIVE Diagnostic Findings Telemetry personally reviewed: Atrial fibrillation. ECG personally reviewed 12/06/2021 at 1:43 a.m.: AFib with RVR 113 beats per minute. PVC. Nonspecific T-wave abnormality. Chest x-ray 12/06/2021: Mild interstitial edema per Radiology. Left pleural effusion and small right pleural effusion. Medications Administered Current Inpatient Medications Atorvastatin Calcium (Atorvastatin 10 Mg Tab) 10 mg PO QAM [facility] Stop: 01/05/22 08:59 Last Admin: 12/06/21 09:28 Dose: 10 mg Documented by: Dextrose (Dextrose 50% 50 Ml Syringe) 25 - 50 ml IV UD PRN; Protocol PRN Reason: Hypoglycemia Protocol Stop: 01/05/22 06:18 Digoxin (Digoxin 0.125 Mg Tab) 0.125 mg PO DAILY@1600 [facility] Stop: 01/05/22 15:59 Last Admin: 12/06/21 15:25 Dose: 0.125 mg Documented by: Docusate Sodium (Docusate Sodium 100 Mg Cap) 100 mg PO BID [facility] Stop: 01/05/22 08:59 Last Admin: 12/06/21 09:29 Dose: 100 mg Documented by: Furosemide (Furosemide 40 Mg/4 Ml Vial) 40 mg IV Q8 VICTOR M Stop: 01/05/22 06:44 Last Admin: 12/06/21 13:57 Dose: 40 mg Documented by: Glucagon (Glucagon For Inj 1 Mg Vial) 1 mg SQ UD PRN; Protocol PRN Reason: Hypoglycemia Protocol Stop: 01/05/22 06:18 Glucose (Glucose 10 Tabs/Tube) 4 - 8 tabs PO UD PRN; Protocol PRN Reason: Hypoglycemia Protocol Stop: 01/05/22 06:18 Glucose (Glucose 40% Gel 15 Gm Tube) 15 - 30 gm PO UD PRN; Protocol PRN Reason: Hypoglycemia Protocol Stop: 01/05/22 06:18 Hydroxyzine HCl (Hydroxyzine Hcl 25 Mg Tab) 50 mg PO DAILY PRN PRN Reason: Anxiety Stop: 01/05/22 06:17 Magnesium Oxide (Magnesium Oxide 400 Mg Tab) 400 mg PO QAM [facility] Stop: 01/05/22 08:59 Last Admin: 12/06/21 09:54 Dose: 400 mg Documented by: Metoprolol Succinate (Metoprolol Succ 50mg Ext Rel Tab) 100 mg PO DAILY VICTOR M Stop: 01/05/22 08:59 Last Admin: 12/06/21 09:27 Dose: 100 mg Documented by: Miscellaneous (Carbohydrates For Hypoglycemia ) 15 - 30 gm PO UD PRN PRN Reason: Hypoglycemia Protocol Stop: 01/05/22 06:18 Pantoprazole Sodium (Pantoprazole 40 Mg Tab) 40 mg PO DAILYBB [facility] Stop: 01/05/22 06:29 Last Admin: 12/06/21 07:33 Dose: 40 mg Documented by: Potassium Chloride (Potassium Chloride Crtab 20 Meq Tabcr) 40 meq PO QAM [facility] Stop: 01/05/22 08:59 Last Admin: 12/06/21 09:27 Dose: 40 meq Documented by: Pregabalin (Pregabalin 150 Mg Cap) 150 mg PO BID VICTOR M Stop: 01/05/22 08:59 Last Admin: 12/06/21 09:27 Dose: 150 mg Documented by: Quetiapine Fumarate (Quetiapine Fumarate 200 Mg Tab) 400 mg PO HS [facility] Stop: 01/05/22 20:59 Quetiapine Fumarate (Quetiapine Fumarate 100 Mg Tablet) 100 mg PO QAM [facility] Stop: 01/05/22 08:59 Last Admin: 12/06/21 09:27 Dose: 100 mg Documented by: Rivaroxaban (Rivaroxaban 20 Mg Tab) 20 mg PO QAM [facility] Stop: 01/05/22 08:59 Last Admin: 12/06/21 09:28 Dose: 20 mg Documented by: Sacubitril/Valsartan (Valsartan/Sacubitril 26/24mg Tab) 1 tab PO BID VICTOR M Stop: 01/05/22 08:59 Last Admin: 12/06/21 09:28 Dose: 1 tab Documented by: Tramadol HCl (Tramadol Hcl 50 Mg Tablet) 50 mg PO Q8 PRN PRN Reason: pain Stop: 01/05/22 06:17 Trazodone HCl (Trazodone Hcl 100 Mg Tab) 200 mg PO HS [facility] Stop: 01/05/22 20:59 Umeclidinium/Vilanterol (Umeclidinium/Vilanterol 62.5/25mcg 7 Puffs/Inhaler) 1 puffs INH Q24H VICTOR M Stop: 01/05/22 08:59 Last Admin: 12/06/21 09:27 Dose: 1 puffs Documented by: PG Care Time/CCT Total # of Minutes Spent Total Time Spent with Patient: Total time spent is greater than 50% in coordination of care (as documented) at patient's floor/unit and/or counseling patient: Coding Level of Care Code 65651 Initial Inpt Care Lvl 3 Diagnoses Nonischemic cardiomyopathy I42.8 ICD (implantable cardioverter-defibrillator) in place Z95.810 Atrial fibrillation, permanent I48.21 Anticoagulant long-term use Z79.01 Ventricular tachycardia I47.2 Acute on chronic HFrEF (heart failure with reduced ejection fraction) I50.23 Mitral regurgitation I34.0
[2021-12-06] MEDS: traZODone HCL 100 MG TAB PO SCH (20:01)
[2021-12-06] MEDS: QUEtiapine FUMARATE 200 MG TAB PO SCH (20:03)
[2021-12-07] MEDS: FUROSEMIDE 40 MG/4 ML VIAL IV SCH ×2 (05:34→15:29)
[2021-12-07] MEDS: PANTOprazole 40 MG TAB PO SCH (05:36)
[2021-12-07 07:02] LABS: Calcium 9.4 mg/dl (8.5-10.1); Magnesium 2.2 mg/dl (1.7-2.4); Potassium 3.8 mmol/L (3.5-5.1)
[2021-12-07 09:28] LABS: BUN Creatinine Ratio 17.2 (10-20); Creatinine Clr Calc Pharmacy 83.9 ml/min; Est GFR (African American) 72.3 ml/min; Est GFR (Non-African American) 62.4 ml/min
[2021-12-07] MEDS: SPIRONOLACTONE 25 MG TAB PO SCH (09:33)
[2021-12-07] MEDS: VALSARTAN/SACUBITRIL 26/24MG TAB PO SCH ×2 (09:33→20:10)
[2021-12-07] MEDS: RIVAROXABAN 20 MG TAB PO SCH (09:33)
[2021-12-07] MEDS: DOCUSATE SODIUM 100 MG CAP PO SCH ×2 (09:33→20:09)
[2021-12-07] MEDS: QUEtiapine FUMARATE 100 MG TABLET PO SCH (09:34)
[2021-12-07] MEDS: POTASSIUM CHLORIDE CRTAB 20 MEQ TABCR PO SCH (09:35)
[2021-12-07] MEDS: ATORVASTATIN 10 MG TAB PO SCH (09:35)
[2021-12-07] MEDS: UMECLIDINIUM/VILANTEROL 62.5/25MCG 7 PUFFS/INHALER INH SCH (09:36)
[2021-12-07] MEDS: METOPROLOL SUCC 50MG EXT REL TAB PO SCH (09:36)
[2021-12-07] MEDS: MAGNESIUM OXIDE 400 MG TAB PO SCH (09:38)
[2021-12-07] MEDS: PREGABALIN 150 MG CAP PO SCH ×2 (09:38→20:09)
--- NOTE | 2021-12-07 10:55 | XCELERA ---
[id number]
--- NOTE | 2021-12-07 15:09 | Hospitalist Progress Note ---
Date of Service December 07, 2021 Assessment & Plan (1) Acute on chronic HFrEF (heart failure with reduced ejection fraction): Plan: 60 y/o F Hx schizoaffective, HTN, HLD, DM II, COPD - home 02, morbid obesity, chronic AF, CHF (EF 20%), BiV pacer. Frequent admits for CHF exacerbation. Presents with progressive shortness of breath, pronounce with exertion and lying flat. She has not had CP and denies a cough or fever. The pt admits to dining at [employer] earlier in the day. On arrival to the ER she was tachycardic and hypertensive. Labs are notable for mild leukocytosis. An EKG demonstrated rapid AF at an approximate rate of 110, without evidence of acute ischemia. CHF is confirmed on CXR. 1) CHF exacerbation - may be due to salt intake. Continue IV Lasix dose, continue to monitor daily weight, I/O, cardiology consult for med adjustment on DC. Cont Entresto. 2) COPD - no evidence of exacerbation on labs. 02 protocol, cont prescribed inhaler. 3) AF - rapid ` 110 BPM. She is likely partially compensating and her rate may improve with diuresis. Consider rate control if she remians tachy when compensated. Cont digoxin, metoprolol. Cont Xarelto. 4) DM - sliding scale 5) HTN, HLD - cont metoprolol, statin Full code - Xarelto prophylaxis (2) Atrial fibrillation: Admission and Anticipated Discharge Date Admission Date: December 06, 2021 Subjective 60 yo female reports breathing better than yesterday. Review of Systems Review of Systems: All systems reviewed & are unremarkable except as noted in HPI & below Physical Exam Physical Exam: General: Obese, middle-aged F, AAO x 3, ENT: No erythema or exudates, no thrush Eyes: RITA, EOMI Head and neck: Normocephalic, atraumatic, No JVD, neck is supple. Chest/heart: Nontender, S1,2, RRR, no murmurs, no gallops Lungs: CTAB, no wheezing or crackles Abdomen: Nontender, nondistended, BS+ Neuro: AAO x 3, speech is clear, no unilateral weakness or loss of sensation, coordination intact Musculoskeletal: No joint inflammation, muscle tenderness, FROM Skin: No acute rashes or ulcers Extremities: Mild BL edema Results & Data Results & Data ([facility]) Vital Signs (Past 12 Hours) Vital Signs Temp Pulse Pulse Resp BP Pulse Ox 12/07/21 15:08 36.6 C 98 H 20 87/54 L 97 12/07/21 10:50 36.5 C 77 18 88/50 L 100 12/07/21 07:05 36.8 C 86 18 86/56 L 100 12/07/21 07:00 71 12/07/21 04:00 36.6 C 81 16 88/58 L 93 PG Care Time/CCT Total # of Minutes Spent Total Time Spent with Patient: Total time spent is greater than 50% in coordination of care (as documented) at patient's floor/unit and/or counseling patient: Coding Level of Care Code 61186 Subseq Hosp Care Lvl 2 Diagnoses Acute on chronic HFrEF (heart failure with reduced ejection fraction) I50.23 Atrial fibrillation I48.20 Atrial fibrillation type: unspecified chronic Time Spent (min) 25 (1) Atrial fibrillation Atrial fibrillation type: unspecified chronic Qualified Code(s): I48.20 - Chronic atrial fibrillation, unspecified
[2021-12-07] MEDS: DIGOXIN 0.125 MG TAB PO SCH (15:29)
--- NOTE | 2021-12-07 18:07 | Cardiology Progress Note ---
Date of Service December 07, 2021 Assessment & Plan (1) Acute on chronic HFrEF (heart failure with reduced ejection fraction): (2) Nonischemic cardiomyopathy: (3) ICD (implantable cardioverter-defibrillator) in place: (4) Atrial fibrillation, permanent: (5) Anticoagulant long-term use: (6) Ventricular tachycardia: (7) Mitral regurgitation: (8) Pericardial effusion: Plan: ASSESSMENT/PLAN: 1. Acute on Chronic HF with reduced EF: Difficult exam. Will reduce Lasix to once daily for now given hypotension throughout the day today. Seems to be tolerating mild hypotension. Presented with class 4 symptoms. Continue Entresto, metoprolol succinate, digoxin. Spironolactone has been initiated. If remains hypotensive, may need to discontinue spironolactone. Recommend SG LT 2 inhibitor on discharge. Exacerbation likely related to noncompliance with low-sodium diet. Daily weights have not been checked. Check daily weights. Low-sodium diet, less than 2000 mg daily. Monitor I&Os. Monitor renal function and electrolytes and replete as appropriate. 2. Nonischemic cardiomyopathy: Severely reduced LV systolic function. ICD in place and managed by Dr. Pelayo. Continue heart failure medications as above. 3. Permanent atrial fibrillation: Asymptomatic. Heart rate reasonably controlled. Continue rate-controlling medications. Continue anticoagulation for stroke risk reduction. Digoxin level acceptable. 4. Ventricular tachycardia: This has been noted in the past on ICD interrogation in the outpatient setting. Continue beta-julee. 5. Mitral regurgitation: Severe mitral regurgitation. Discussed this with her. She has had severe mitral regurgitation noted in the past as well. With her comorbidities and reduced EF, she may not be a candidate for surgical mitral valve correction. We discussed this today and she is not interested at this time in pursuing such. Discussed that she could be evaluated at another facility to see if she is a candidate and to learn more about it, but she declines. This can be discussed further with her primary it business process architect/Heart failure Team, as appropriate. We discussed natural history. 6. Pericardial effusion: Chronic issue and appeared stable on echo. Although hypotensive today with initiation of spironolactone and with intravenous diuretics, she otherwise does not appear to be in tamponade for this chronic and what appears to be stable issue. 7. Disposition: Cardiology will continue to follow along. Follow with Dr. Pelayo upon discharge. Continue to follow with heart failure program. Plan of care discussed with Dr. Mccall of the primary hospitalist service. Admission and Anticipated Discharge Date Admission Date: December 06, 2021 Subjective She was seen earlier today. Her breathing has improved. She still has mild dyspnea with exertion and orthopnea. She feels tired. She denies lightheadedness, syncope, near-syncope, chest pain. She was alone in her hospital room. Physical Exam Physical Exam: Gen.: No acute distress. Alert and oriented. HEENT: Anicteric sclera. Neck: Thick neck. Cardiac: PMI was nonpalpable. No ventricular heave. Irregularly irregular with normal heart rate. Normal S1-S2. 1/6 systolic murmur heard laterally. Pulmonary: Decreased breath sounds bilaterally, but otherwise clear to auscultation bilaterally without wheezes, rales, or rhonchi. Abdomen: Soft, nontender, nondistended, with hypoactive bowel sounds. No bruits noted. Extremities: 2+ radial pulses bilaterally. 2+ posterior tibialis pulses bilaterally. Trace bilateral lower extremity edema. No cyanosis. Psychiatric: Affect appears appropriate. Results & Data ([facility]) Vital Signs (Past 12 Hours) Vital Signs Temp Pulse Pulse Resp BP Pulse Ox 12/07/21 15:29 94 H 12/07/21 15:08 36.6 C 98 H 20 87/54 L 97 12/07/21 10:50 36.5 C 77 18 88/50 L 100 12/07/21 07:05 36.8 C 86 18 86/56 L 100 12/07/21 07:00 71 Intake & Output 12/05/21 12/06/21 12/07/21 12/08/21 06:59 06:59 06:59 06:59 Intake Total 1100 / 1100 480 / 480 Output Total 3000 / 3000 501 / 501 Balance -1900 / -1900 - / - Weight 267 lb 3.204 oz Laboratory Results Laboratory Results - last 24 hr 12/07/21 12/07/21 06:09 14:30 Sodium 141 Potassium 3.8 Chloride 100 Carbon Dioxide 35 H Anion Gap 6 BUN 17 Creatinine 0.99 Est Cr Clr Drug Dosing 83.9 Est GFR ( Amer) 72.3 Est GFR (Non-Af Amer) 62.4 BUN/Creatinine Ratio 17.2 Glucose 106 H Calcium 9.4 Magnesium 2.2 Digoxin 1.0 Diagnostic Findings Telemetry personally reviewed: Atrial fibrillation. Echo 12/06/2021: Moderately dilated LV. EF 25-30%. Global hypokinesis. Very severe left atrial dilation. Thickened mitral leaflets with severe MR. Mild to moderate TR. RVSP 52. Moderate pericardial effusion. Medications Administered Current Inpatient Medications Atorvastatin Calcium (Atorvastatin 10 Mg Tab) 10 mg PO QAM [facility] Stop: 01/05/22 08:59 Last Admin: 12/07/21 09:35 Dose: 10 mg Documented by: Dextrose (Dextrose 50% 50 Ml Syringe) 25 - 50 ml IV UD PRN; Protocol PRN Reason: Hypoglycemia Protocol Stop: 01/05/22 06:18 Digoxin (Digoxin 0.125 Mg Tab) 0.125 mg PO DAILY@1600 [facility] Stop: 01/05/22 15:59 Last Admin: 12/07/21 15:29 Dose: 0.125 mg Documented by: Docusate Sodium (Docusate Sodium 100 Mg Cap) 100 mg PO BID [facility] Stop: 01/05/22 08:59 Last Admin: 12/07/21 09:33 Dose: 100 mg Documented by: Furosemide (Furosemide 40 Mg/4 Ml Vial) 40 mg IV DAILY [facility] Stop: 01/07/22 08:59 Glucagon (Glucagon For Inj 1 Mg Vial) 1 mg SQ UD PRN; Protocol PRN Reason: Hypoglycemia Protocol Stop: 01/05/22 06:18 Glucose (Glucose 10 Tabs/Tube) 4 - 8 tabs PO UD PRN; Protocol PRN Reason: Hypoglycemia Protocol Stop: 01/05/22 06:18 Glucose (Glucose 40% Gel 15 Gm Tube) 15 - 30 gm PO UD PRN; Protocol PRN Reason: Hypoglycemia Protocol Stop: 01/05/22 06:18 Hydroxyzine HCl (Hydroxyzine Hcl 25 Mg Tab) 50 mg PO DAILY PRN PRN Reason: Anxiety Stop: 01/05/22 06:17 Magnesium Oxide (Magnesium Oxide 400 Mg Tab) 400 mg PO QAM [facility] Stop: 01/05/22 08:59 Last Admin: 12/07/21 09:38 Dose: 400 mg Documented by: Metoprolol Succinate (Metoprolol Succ 50mg Ext Rel Tab) 100 mg PO DAILY [facility] Stop: 01/05/22 08:59 Last Admin: 12/07/21 09:36 Dose: Not Given Documented by: Miscellaneous (Carbohydrates For Hypoglycemia ) 15 - 30 gm PO UD PRN PRN Reason: Hypoglycemia Protocol Stop: 01/05/22 06:18 Pantoprazole Sodium (Pantoprazole 40 Mg Tab) 40 mg PO DAILYBB [facility] Stop: 01/05/22 06:29 Last Admin: 12/07/21 05:36 Dose: 40 mg Documented by: Potassium Chloride (Potassium Chloride Crtab 20 Meq Tabcr) 40 [facility] [place] Stop: 01/05/22 08:59 Last Admin: 12/07/21 09:35 Dose: 40 meq Documented by: Pregabalin (Pregabalin 150 Mg Cap) 150 mg PO BID [facility] Stop: 01/05/22 08:59 Last Admin: 12/07/21 09:38 Dose: 150 mg Documented by: Quetiapine Fumarate (Quetiapine Fumarate 200 Mg Tab) 400 mg PO [facility] Stop: 01/05/22 20:59 Last Admin: 12/06/21 20:03 Dose: 400 mg Documented by: Quetiapine Fumarate (Quetiapine Fumarate 100 Mg Tablet) 100 mg PO [facility] Stop: 01/05/22 08:59 Last Admin: 12/07/21 09:34 Dose: 100 mg Documented by: Rivaroxaban (Rivaroxaban 20 Mg Tab) 20 [facility] [place] Stop: 01/05/22 08:59 Last Admin: 12/07/21 09:33 Dose: 20 mg Documented by: Sacubitril/Valsartan (Valsartan/Sacubitril 26/24mg Tab) 1 tab PO BID [facility] Stop: 01/05/22 08:59 Last Admin: 12/07/21 09:33 Dose: 1 tab Documented by: Spironolactone (Spironolactone 25 Mg Tab) [facility] [place] Stop: 01/06/22 08:59 Last Admin: 12/07/21 09:33 Dose: 25 mg Documented by: Tramadol HCl (Tramadol Hcl 50 Mg Tablet) 50 mg PO Q8 PRN PRN Reason: pain Stop: 01/05/22 06:17 Last Admin: 12/06/21 19:42 Dose: 50 mg Documented by: Trazodone HCl (Trazodone Hcl 100 Mg Tab) 200 mg PO [facility] Stop: 01/05/22 20:59 Last Admin: 12/06/21 20:01 Dose: 200 mg Documented by: Umeclidinium/Vilanterol (Umeclidinium/Vilanterol 62.5/25mcg 7 Puffs/Inhaler) 1 puffs INH Q24H [facility] Stop: 01/05/22 08:59 Last Admin: 12/07/21 09:36 Dose: 1 puffs Documented by: PG Care Time/CCT Total # of Minutes Spent Total Time Spent with Patient: Total time spent is greater than 50% in coordination of care (as documented) at patient's floor/unit and/or counseling patient: Coding Level of Care Code 42888 Subseq Hosp Care Lvl 3 Diagnoses Acute on chronic HFrEF (heart failure with reduced ejection fraction) I50.23 Nonischemic cardiomyopathy I42.8 ICD (implantable cardioverter-defibrillator) in place Z95.810 Atrial fibrillation, permanent I48.21 Anticoagulant long-term use Z79.01 Ventricular tachycardia I47.2 Mitral regurgitation I34.0 Pericardial effusion I31.3
[2021-12-07] MEDS ORDERED: ACETAMINOPHEN 325 MG TAB PO PRN (19:22)
[2021-12-07] MEDS: QUEtiapine FUMARATE 200 MG TAB PO SCH (20:10)
[2021-12-07] MEDS: traZODone HCL 100 MG TAB PO SCH (20:10)
[2021-12-07] MEDS: hydrOXYzine HCl 25 MG TAB PO PRN (20:41)
--- NOTE | 2021-12-08 05:48 | Electrocardiogram Report ---
Test Reason : Blood Pressure : / mmHG Vent. Rate : 113 BPM Atrial Rate : 113 BPM P-R Int : 000 ms QRS Dur : 102 ms QT Int : 330 ms P-R-T Axes : 000 093 127 degrees QTc Int : 452 ms Poor data quality, interpretation may be adversely affected Atrial fibrillation with rapid ventricular response with premature ventricular or aberrantly conducte d complexes Rightward axis Low voltage QRS Poor R wave progression, consider anterior UT vs. lead placement vs. LVH Nonspecific T wave abnormality Abnormal ECG When compared with ECG of 16-OCT-2021 23:10, Premature ventricular complexes is now Present Confirmed by Noah Starks ([id number]) on 12/08/2021 5:48:27 AM Referred By: REFERRED SELF Confirmed By:Noah Starks
[2021-12-08] MEDS: PANTOprazole 40 MG TAB PO SCH (07:10)
[2021-12-08] MEDS ORDERED: FUROSEMIDE 40 MG/4 ML VIAL IV SCH (09:00)
[2021-12-08] MEDS: ATORVASTATIN 10 MG TAB PO SCH (09:24)
[2021-12-08] MEDS: DOCUSATE SODIUM 100 MG CAP PO SCH ×2 (09:24→20:47)
[2021-12-08] MEDS: POTASSIUM CHLORIDE CRTAB 20 MEQ TABCR PO SCH (09:25)
[2021-12-08] MEDS: METOPROLOL SUCC 50MG EXT REL TAB PO SCH (09:25)
[2021-12-08] MEDS: RIVAROXABAN 20 MG TAB PO SCH (09:26)
[2021-12-08] MEDS: VALSARTAN/SACUBITRIL 26/24MG TAB PO SCH ×2 (09:26→20:49)
[2021-12-08] MEDS: QUEtiapine FUMARATE 100 MG TABLET PO SCH (09:26)
[2021-12-08] MEDS: UMECLIDINIUM/VILANTEROL 62.5/25MCG 7 PUFFS/INHALER INH SCH (09:27)
--- NOTE | 2021-12-08 09:30 | Cardiology Progress Note ---
Date of Service December 08, 2021 Assessment & Plan (1) Acute on chronic HFrEF (heart failure with reduced ejection fraction): (2) Nonischemic cardiomyopathy: (3) ICD (implantable cardioverter-defibrillator) in place: (4) Atrial fibrillation, permanent: (5) Anticoagulant long-term use: (6) Ventricular tachycardia: (7) Mitral regurgitation: (8) Pericardial effusion: Plan: ASSESSMENT/PLAN: 1. Acute on Chronic HF with reduced EF: Difficult exam. Currently class 2/3 symptoms. Due to mild hypotension with lightheadedness, will reduce Lasix to 80 mg p.o. once daily starting tomorrow. Continue Entresto, metoprolol succinate, digoxin. If holding a medication, would prefer that she receive metoprolol succinate due to AFib. Can hold Entresto if necessary. Spironolactone discontinued due to hypotension since initiated. Recommend SG LT 2 inhibitor on discharge. Exacerbation likely related to noncompliance with low-sodium diet. Daily weights have not been checked. Check daily weights. Low-sodium diet, less than 2000 mg daily. Monitor I&Os. Monitor renal function and electrolytes and replete as appropriate. 2. Nonischemic cardiomyopathy: Severely reduced LV systolic function. ICD in place and managed by Dr. Pelayo. Continue heart failure medications as above. 3. Permanent atrial fibrillation: Asymptomatic. Heart rate has been reasonably controlled but a bit faster today than usual as she has not received metoprolol since 12/06/2021 due to hypotension. Recommend metoprolol succinate 50 mg once this afternoon. Continue rate-controlling medications. Continue anticoagulation for stroke risk reduction. Digoxin level acceptable. 4. Ventricular tachycardia: This has been noted in the past on ICD interrogation in the outpatient setting. Continue beta-julee. 5. Mitral regurgitation: Severe mitral regurgitation. Discussed this with her. She has had severe mitral regurgitation noted in the past as well. With her comorbidities and reduced EF, she may not be a candidate for surgical mitral valve correction. We discussed this today and she is not interested at this time in pursuing such. Discussed that she could be evaluated at another facility to see if she is a candidate and to learn more about it, but she declin ed. This can be discussed further with her primary regional telecommunications specialist/Heart failure Team, as appropriate. We discussed natural history. 6. Pericardial effusion: Chronic issue and appeared stable on echo. Although hypotensive today with initiation of spironolactone and with intravenous diuretics, she otherwise does not appear to be in tamponade for this chronic and what appears to be stable issue. 7. Disposition: Anticipate ready for discharge tomorrow from a cardiology perspective. Follow with Dr. Pelayo upon discharge. Continue to follow with heart failure program. Plan of care communicated with Dr. Mccall of the primary hospitalist service. Admission and Anticipated Discharge Date Admission Date: December 06, 2021 Subjective Patient seen earlier today. She believes that her breathing is back to baseline. She is lightheaded at times, while standing on her feet. She denies chest pain, syncope, near-syncope, or bleeding. She thinks that she would like to go home tomorrow. She did not receive beta-julee today due to mild hypotension. She was alone in her hospital room. Physical Exam Physical Exam: Gen.: No acute distress. Alert and oriented. HEENT: Anicteric sclera. Neck: Thick neck. Cardiac: PMI was nonpalpable. No ventricular heave. Irregularly irregular. Normal S1-S2. 1/6 systolic murmur heard laterally. Pulmonary: Decreased breath sounds bilaterally, but otherwise clear to auscultation bilaterally without wheezes, rales, or rhonchi. Abdomen: Soft, nontender, nondistended, with hypoactive bowel sounds. No bruits noted. Extremities: 2+ radial pulses bilaterally. 2+ posterior tibialis pulses bilaterally. Trace bilateral lower extremity edema. No cyanosis. Psychiatric: Affect appears appropriate. Results & Data ([facility]) Vital Signs (Past 12 Hours) Vital Signs Temp Pulse Pulse Resp BP Pulse Ox 12/08/21 06:52 36.6 C 85 18 96/53 L 95 12/08/21 02:58 36.8 C 86 20 85/54 L 95 12/08/21 00:00 92 H 12/07/21 23:00 36.8 C 77 18 79/71 L 95 Intake & Output 12/06/21 12/07/21 12/08/21 12/09/21 06:59 06:59 06:59 06:59 Intake Total 1100 / 1100 720 / 720 Output Total 3000 / 3000 901 / 901 Balance -1900 / -1900 -181 / -181 Weight 267 lb 3.204 oz 267 lb 13.786 oz Laboratory Results Laboratory Results - last 24 hr 12/08/21 09:58 Sodium 139 Potassium 3.8 Chloride 99 Carbon Dioxide 35 H Anion Gap 5 BUN 18 Creatinine 0.83 Est Cr Clr Drug Dosing 100.2 Est GFR ( Amer) 89.5 Est GFR (Non-Af Amer) 77.2 BUN/Creatinine Ratio 21.7 H Glucose 116 H Calcium 9.9 Diagnostic Findings Telemetry personally reviewed: AFib with overall increased heart rate trend compared to previous hospital days. Heart rate 90s to 100s. Medications Administered Current Inpatient Medications Acetaminophen (Acetaminophen 325 Mg Tab) 650 mg PO Q6H PRN PRN Reason: Pain Stop: 01/06/22 19:21 Last Admin: 12/07/21 20:08 Dose: 650 mg Documented by: Atorvastatin Calcium (Atorvastatin 10 Mg Tab) 10 mg PO QAM [facility] Stop: 01/05/22 08:59 Last Admin: 12/07/21 09:35 Dose: 10 mg Documented by: Dextrose (Dextrose 50% 50 Ml Syringe) 25 - 50 ml IV UD PRN; Protocol PRN Reason: Hypoglycemia Protocol Stop: 01/05/22 06:18 Digoxin (Digoxin 0.125 Mg Tab) 0.125 mg PO DAILY@1600 [facility] Stop: 01/05/22 15:59 Last Admin: 12/07/21 15:29 Dose: 0.125 mg Documented by: Docusate Sodium (Docusate Sodium 100 Mg Cap) 100 mg PO BID [facility] Stop: 01/05/22 08:59 Last Admin: 12/07/21 20:09 Dose: 100 mg Documented by: Furosemide (Furosemide 40 Mg/4 Ml Vial) 40 mg IV DAILY [facility] Stop: 01/07/22 08:59 Glucagon (Glucagon For Inj 1 Mg Vial) 1 mg SQ UD PRN; Protocol PRN Reason: Hypoglycemia Protocol Stop: 01/05/22 06:18 Glucose (Glucose 10 Tabs/Tube) 4 - 8 tabs PO UD PRN; Protocol PRN Reason: Hypoglycemia Protocol Stop: 01/05/22 06:18 Glucose (Glucose 40% Gel 15 Gm Tube) 15 - 30 gm PO UD PRN; Protocol PRN Reason: Hypoglycemia Protocol Stop: 01/05/22 06:18 Hydroxyzine HCl (Hydroxyzine Hcl 25 Mg Tab) 50 mg PO DAILY PRN PRN Reason: Anxiety Stop: 01/05/22 06:17 Last Admin: 12/07/21 20:41 Dose: 50 mg Documented by: Magnesium Oxide (Magnesium Oxide 400 Mg Tab) 400 mg PO QAM [facility] Stop: 01/05/22 08:59 Last Admin: 12/07/21 09:38 Dose: 400 mg Documented by: Metoprolol Succinate (Metoprolol Succ 50mg Ext Rel Tab) 100 mg PO DAILY [facility] Stop: 01/05/22 08:59 Last Admin: 12/07/21 09:36 Dose: Not Given Documented by: Miscellaneous (Carbohydrates For Hypoglycemia ) 15 - 30 gm PO UD PRN PRN Reason: Hypoglycemia Protocol Stop: 01/05/22 06:18 Pantoprazole Sodium (Pantoprazole 40 Mg Tab) 40 mg PO DAILYBB [facility] Stop: 01/05/22 06:29 Last Admin: 12/08/21 07:10 Dose: 40 mg Documented by: Potassium Chloride (Potassium Chloride Crtab 20 Meq Tabcr) 40 meq PO QAM [facility] Stop: 01/05/22 08:59 Last Admin: 12/07/21 09:35 Dose: 40 meq Documented by: Pregabalin (Pregabalin 150 Mg Cap) 150 mg PO BID [facility] Stop: 01/05/22 08:59 Last Admin: 12/07/21 20:09 Dose: 150 mg Documented by: Quetiapine Fumarate (Quetiapine Fumarate 200 Mg Tab) 400 mg PO HS [facility] Stop: 01/05/22 20:59 Last Admin: 12/07/21 20:10 Dose: 400 mg Documented by: Quetiapine Fumarate (Quetiapine Fumarate 100 Mg Tablet) [facility] Stop: 01/05/22 08:59 Last Admin: 12/07/21 09:34 Dose: 100 mg Documented by: Rivaroxaban (Rivaroxaban 20 Mg Tab) [facility] Stop: 01/05/22 08:59 Last Admin: 12/07/21 09:33 Dose: 20 mg Documented by: Sacubitril/Valsartan (Valsartan/Sacubitril 26/24mg Tab) 1 tab PO BID [facility] Stop: 01/05/22 08:59 Last Admin: 12/07/21 20:10 Dose: 1 tab Documented by: Tramadol HCl (Tramadol Hcl 50 Mg Tablet) 50 mg PO Q8 PRN PRN Reason: pain Stop: 01/05/22 06:17 Last Admin: 12/06/21 19:42 Dose: 50 mg Documented by: Trazodone HCl (Trazodone Hcl 100 Mg Tab) 200 mg PO HS [facility] Stop: 01/05/22 20:59 Last Admin: 12/07/21 20:10 Dose: 200 mg Documented by: Umeclidinium/Vilanterol (Umeclidinium/Vilanterol 62.5/25mcg 7 Puffs/Inhaler) 1 puffs INH Q24H [facility] Stop: 01/05/22 08:59 Last Admin: 12/07/21 09:36 Dose: 1 puffs Documented by: PG Care Time/CCT Total # of Minutes Spent Total Time Spent with Patient: Total time spent is greater than 50% in coordination of care (as documented) at patient's floor/unit and/or counseling patient: Coding Level of Care Code 83501 Subseq Hosp Care Lvl 3 Diagnoses Acute on chronic HFrEF (heart failure with reduced ejection fraction) I50.23 Nonischemic cardiomyopathy I42.8 ICD (implantable cardioverter-defibrillator) in place Z95.810 Atrial fibrillation, permanent I48.21 Anticoagulant long-term use Z79.01 Ventricular tachycardia I47.2 Mitral regurgitation I34.0 Pericardial effusion I31.3
[2021-12-08] MEDS: MAGNESIUM OXIDE 400 MG TAB PO SCH (09:31)
[2021-12-08] MEDS: PREGABALIN 150 MG CAP PO SCH ×2 (09:31→20:47)
[2021-12-08] MEDS: SPIRONOLACTONE 25 MG TAB PO SCH (09:32)
[2021-12-08 10:31] LABS: BUN Creatinine Ratio 21.7 (10-20); Calcium 9.9 mg/dl (8.5-10.1); Creatinine Clr Calc Pharmacy 100.2 ml/min; Est GFR (African American) 89.5 ml/min; Est GFR (Non-African American) 77.2 ml/min; Potassium 3.8 mmol/L (3.5-5.1)
[2021-12-08] MEDS ORDERED: METOPROLOL SUCC 50MG EXT REL TAB PO ONE (14:15)
[2021-12-08] MEDS: DIGOXIN 0.125 MG TAB PO SCH (15:31)
--- NOTE | 2021-12-08 16:48 | Hospitalist Progress Note ---
Date of Service December 08, 2021 Assessment & Plan (1) Acute on chronic HFrEF (heart failure with reduced ejection fraction): Plan: 60 y/o F Hx schizoaffective, HTN, HLD, DM II, COPD - home 02, morbid obesity, chronic AF, CHF (EF 20%), BiV pacer. Frequent admits for CHF exacerbation. Presents with progressive shortness of breath, pronounce with exertion and lying flat. She has not had CP and denies a cough or fever. The pt admits to dining at [employer] earlier in the day. On arrival to the ER she was tachycardic and hypertensive. Labs are notable for mild leukocytosis. An EKG demonstrated rapid AF at an approximate rate of 110, without evidence of acute ischemia. CHF is confirmed on CXR. 1) CHF exacerbation - may be due to salt intake. Transition IV Lasix dose to PO lasix. 80 mg daily, continue to monitor daily weight, I/O, cardiology consult for med adjustment on DC. Cont Entresto. If doing well will discharge. 2) COPD - no evidence of exacerbation on labs. 02 protocol, cont prescribed inhaler. 3) AF - heart rate is better improved. She is likely partially compensating and her rate may improve with diuresis. Metorpolol has been held due to low BP. decreased holding parameters to ensure dose. Cont digoxin, metoprolol. Cont Xarelto. 4) DM - sliding scale 5) HTN, HLD - cont metoprolol, statin Full code - Xarelto prophylaxis (2) Atrial fibrillation: Admission and Anticipated Discharge Date Admission Date: December 06, 2021 Subjective 60 yo female reports feeling less SOB today. Review of Systems Review of Systems: All systems reviewed & are unremarkable except as noted in HPI & below Physical Exam Physical Exam: General: Obese, middle-aged F, AAO x 3, ENT: No erythema or exudates, no thrush Eyes: RITA, EOMI Head and neck: Normocephalic, atraumatic, No JVD, neck is supple. Chest/heart: Nontender, S1,2, RRR, no murmurs, no gallops Lungs: CTAB, no wheezing or crackles Abdomen: Nontender, nondistended, BS+ Neuro: AAO x 3, speech is clear, no unilateral weakness or loss of sensation, coordination intact Musculoskeletal: No joint inflammation, muscle tenderness, FROM Skin: No acute rashes or ulcers Extremities: Mild BL edema Results & Data Results & Data ([facility]) Vital Signs (Past 12 Hours) Vital Signs Temp Pulse Pulse Resp BP Pulse Ox 12/08/21 15:39 36.6 C 109 H 18 93/69 L 97 12/08/21 15:31 110 H 12/08/21 11:11 36.8 C 91 H 18 99/75 L 96 12/08/21 08:00 89 12/08/21 06:52 36.6 C 85 18 96/53 L 95 PG Care Time/CCT Total # of Minutes Spent Total Time Spent with Patient: Total time spent is greater than 50% in coordination of care (as documented) at patient's floor/unit and/or counseling patient: Coding Level of Care Code 39548 Subseq Hosp Care Lvl 2 Diagnoses Acute on chronic HFrEF (heart failure with reduced ejection fraction) I50.23 Atrial fibrillation I48.20 Atrial fibrillation type: unspecified chronic Time Spent (min) 35 (1) Atrial fibrillation Atrial fibrillation type: unspecified chronic Qualified Code(s): I48.20 - Chronic atrial fibrillation, unspecified
[2021-12-08] MEDS: QUEtiapine FUMARATE 200 MG TAB PO SCH (20:47)
[2021-12-08] MEDS: traZODone HCL 100 MG TAB PO SCH (20:48)
[2021-12-08] MEDS: hydrOXYzine HCl 25 MG TAB PO PRN (20:52)
[2021-12-09] MEDS: PANTOprazole 40 MG TAB PO SCH (06:11)
[2021-12-09 08:14] LABS: Hematocrit (blood only) 32.8 % (37-47); Hemoglobin 10.4 g/dL (12.0-16.0); Mean Corpuscular Hemoglobin 26.9 pg (25-34); Mean Corpuscular Hgb Conc 31.7 g/dL (32-36); Mean Corpuscular Volume 84.8 fL (80-100); Mean Platelet Volume 9.3 fL (7.4-10.4); Platelet Count 348 K/uL (130-400); RDW Coefficient of Variation 16.2 % (11.5-14.5); RDW Standard Deviation 49.7 fL (36.4-46.3); Red Blood Count 3.87 M/uL (4.2-5.4); White Blood Count 9.24 K/uL (4.8-10.8)
[2021-12-09] MEDS: METOPROLOL SUCC 50MG EXT REL TAB PO SCH (08:25)
[2021-12-09] MEDS: UMECLIDINIUM/VILANTEROL 62.5/25MCG 7 PUFFS/INHALER INH SCH (08:25)
[2021-12-09] MEDS: POTASSIUM CHLORIDE CRTAB 20 MEQ TABCR PO SCH (08:25)
[2021-12-09] MEDS: DOCUSATE SODIUM 100 MG CAP PO SCH (08:26)
[2021-12-09] MEDS: QUEtiapine FUMARATE 100 MG TABLET PO SCH (08:26)
[2021-12-09] MEDS: RIVAROXABAN 20 MG TAB PO SCH (08:26)
[2021-12-09] MEDS: VALSARTAN/SACUBITRIL 26/24MG TAB PO SCH (08:26)
[2021-12-09] MEDS: ATORVASTATIN 10 MG TAB PO SCH (08:26)
[2021-12-09] MEDS: MAGNESIUM OXIDE 400 MG TAB PO SCH (08:31)
[2021-12-09] MEDS: PREGABALIN 150 MG CAP PO SCH (08:31)
[2021-12-09 08:38] LABS: BUN Creatinine Ratio 17.4 (10-20); Calcium 9.4 mg/dl (8.5-10.1); Creatinine Clr Calc Pharmacy 96.4 ml/min; Est GFR (African American) 85.7 ml/min; Est GFR (Non-African American) 73.9 ml/min; Potassium 4.4 mmol/L (3.5-5.1)
[2021-12-09] MEDS ORDERED: FUROSEMIDE 80 MG TAB PO SCH (09:00)
--- NOTE | 2021-12-09 09:41 | Cardiology Progress Note ---
Date of Service December 09, 2021 Assessment & Plan (1) Acute on chronic HFrEF (heart failure with reduced ejection fraction): (2) Nonischemic cardiomyopathy: (3) ICD (implantable cardioverter-defibrillator) in place: (4) Atrial fibrillation, permanent: (5) Anticoagulant long-term use: (6) Ventricular tachycardia: (7) Mitral regurgitation: (8) Pericardial effusion: Plan: ASSESSMENT/PLAN: 1. Acute on Chronic HF with reduced EF: She feels back to baseline and improving on a daily basis. Currently class 2/3 symptoms. Continue Lasix 80 mg p.o. once daily. Continue Entresto, metoprolol succinate, digoxin. Spironolactone discontinued due to hypotension. Recommend SG LT 2 inhibitor on discharge. Exacerbation likely related to noncompliance with low-sodium diet. Daily weights have not been checked. Check daily weights. Low-sodium diet, less than 2000 mg daily. Monitor I&Os. Monitor renal function and electrolytes and replete as appropriate. 2. Nonischemic cardiomyopathy: Severely reduced LV systolic function. ICD in place and managed by Dr. Pelayo. Continue heart failure medications as above. 3. Permanent atrial fibrillation: Asymptomatic. Heart rate better controlled now that she is receiving metoprolol. Continue current dose of metoprolol succinate. Continue anticoagulation for stroke risk reduction. Digoxin level acceptable. 4. Ventricular tachycardia: This has been noted in the past on ICD interrogation in the outpatient setting. Continue beta-julee. 5. Mitral regurgitation: Severe mitral regurgitation. She has had severe mitral regurgitation noted in the past as well. With her comorbidities and reduced EF, she may not be a candidate for surgical mitral valve correction. We discussed this today and she is not interested at this time in pursuing such. Discussed that she could be evaluated at another facility to see if she is a candidate and to learn more about it, but she declined. This can be discussed further with her primary food beverage server/Heart failure Team, as appropriate. We discussed natural history. 6. Pericardial effusion: Chronic issue and appeared stable on echo. 7. Disposition: Can be discharged home today from a cardiac perspective. Follow with Dr. Pelayo upon discharge. Continue to follow with heart failure program. Plan of care communicated with Dr. Mccall of the primary hospitalist service. Admission and Anticipated Discharge Date Admission Date: December 06, 2021 Subjective She feels better today. She noted less dyspnea with exertion when ambulating to the restroom. She denies orthopnea, chest pain, syncope, near-syncope, palpitations, edema, or bleeding. Her lightheadedness has resolved. Review of systems: As above. Physical Exam Physical Exam: Gen.: No acute distress. Alert and oriented. HEENT: Anicteric sclera. Neck: Thick neck. Cardiac: No ventricular heave. Irregularly irregular. Normal S1-S2. 1/6 systolic murmur heard laterally. Pulmonary: Decreased breath sounds bilaterally, but otherwise clear to auscultation bilaterally without wheezes, rales, or rhonchi. Abdomen: Soft, nontender, nondistended, with hypoactive bowel sounds. No bruits noted. Extremities: 2+ radial pulses bilaterally. 2+ posterior tibialis pulses brandin aterally. No significant edema. No cyanosis. Psychiatric: Affect appears appropriate. Results & Data ([facility]) Vital Signs (Past 12 Hours) Vital Signs Temp Pulse Resp BP Pulse Ox 12/09/21 08:22 36.8 C 75 20 111/79 98 12/09/21 02:00 36.9 C 90 18 93/64 L 94 12/08/21 23:00 36.8 C 84 18 97/73 L 96 Intake & Output 12/07/21 12/08/21 12/09/21 12/10/21 06:59 06:59 06:59 06:59 Intake Total 1100 / 1100 720 / 720 720 / 720 Output Total 3000 / 3000 901 / 901 1250 / 1250 Balance -1900 / -1900 -181 / -181 -530 / -530 Weight 267 lb 13.786 oz 266 lb 8.622 oz Laboratory Results Laboratory Results - last 24 hr 12/08/21 12/08/21 12/09/21 09:58 20:29 07:43 WBC 9.24 RBC 3.87 L Hgb 10.4 L Hct 32.8 L MCV 84.8 MCH 26.9 MCHC 31.7 L RDW Std Deviation 49.7 H RDW Coeff of Logan 16.2 H Plt Count 348 MPV 9.3 Sodium 139 Potassium 3.8 Chloride 99 Carbon Dioxide 35 H Anion Gap 5 BUN 18 Creatinine 0.83 Est Cr Clr Drug Dosing 100.2 Est GFR ( Amer) 89.5 Est GFR (Non-Af Amer) 77.2 BUN/Creatinine Ratio 21.7 H Glucose 116 H POC Glucose 110 H Calcium 9.9 B-Natriuretic Peptide 12/09/21 12/09/21 07:43 07:43 WBC RBC Hgb Hct MCV MCH MCHC RDW Std Deviation RDW Coeff of Logan Plt Count MPV Sodium 138 Potassium 4.4 Chloride 101 Carbon Dioxide 33 H Anion Gap 4 BUN 15 Creatinine 0.86 Est Cr Clr Drug Dosing 96.4 Est GFR ( Amer) 85.7 Est GFR (Non-Af Amer) 73.9 BUN/Creatinine Ratio 17.4 Glucose 101 H POC Glucose Calcium 9.4 B-Natriuretic Peptide 179 H Diagnostic Findings Telemetry personally reviewed: Atrial fibrillation. Heart rate is better controlled with average heart rate approximately 80s. Medications Administered Current Inpatient Medications Acetaminophen (Acetaminophen 325 Mg Tab) 650 mg PO Q6H PRN PRN Reason: Pain Stop: 01/06/22 19:21 Last Admin: 12/07/21 20:08 Dose: 650 mg Documented by: Atorvastatin Calcium (Atorvastatin 10 Mg Tab) 10 mg PO QAM [facility] Stop: 01/05/22 08:59 Last Admin: 12/09/21 08:26 Dose: 10 mg Documented by: Dextrose (Dextrose 50% 50 Ml Syringe) 25 - 50 ml IV UD PRN; Protocol PRN Reason: Hypoglycemia Protocol Stop: 01/05/22 06:18 Digoxin (Digoxin 0.125 Mg Tab) 0.125 mg PO DAILY@1600 [facility] Stop: 01/05/22 15:59 Last Admin: 12/08/21 15:31 Dose: 0.125 mg Documented by: Docusate Sodium (Docusate Sodium 100 Mg Cap) 100 mg PO BID [facility] Stop: 01/05/22 08:59 Last Admin: 12/09/21 08:26 Dose: 100 mg Documented by: Furosemide (Furosemide 80 Mg Tab) 80 mg PO QAM [facility] Stop: 01/08/22 08:59 Last Admin: 12/09/21 08:26 Dose: 80 mg Documented by: Glucagon (Glucagon For Inj 1 Mg Vial) 1 mg SQ UD PRN; Protocol PRN Reason: Hypoglycemia Protocol Stop: 01/05/22 06:18 Glucose (Glucose 10 Tabs/Tube) 4 - 8 tabs PO UD PRN; Protocol PRN Reason: Hypoglycemia Protocol Stop: 01/05/22 06:18 Glucose (Glucose 40% Gel 15 Gm Tube) 15 - 30 gm PO UD PRN; Protocol PRN Reason: Hypoglycemia Protocol Stop: 01/05/22 06:18 Hydroxyzine HCl (Hydroxyzine Hcl 25 Mg Tab) 50 mg PO DAILY PRN PRN Reason: Anxiety Stop: 01/05/22 06:17 Last Admin: 12/08/21 20:52 Dose: 50 mg Documented by: Magnesium Oxide (Magnesium Oxide 400 Mg Tab) 400 mg PO QAM [facility] Stop: 01/05/22 08:59 Last Admin: 12/09/21 08:31 Dose: 400 mg Documented by: Metoprolol Succinate (Metoprolol Succ 50mg Ext Rel Tab) 100 mg PO DAILY [facility] Stop: 01/05/22 08:59 Last Admin: 12/09/21 08:25 Dose: 100 mg Documented by: Miscellaneous (Carbohydrates For Hypoglycemia ) 15 - 30 gm PO UD PRN PRN Reason: Hypoglycemia Protocol Stop: 01/05/22 06:18 Pantoprazole Sodium (Pantoprazole 40 Mg Tab) 40 mg PO DAILYBB [facility] Stop: 01/05/22 06:29 Last Admin: 12/09/21 06:11 Dose: 40 mg Documented by: Potassium Chloride (Potassium Chloride Crtab 20 Meq Tabcr) 40 meq PO QAM [facility] Stop: 01/05/22 08:59 Last Admin: 12/09/21 08:25 Dose: 40 meq Documented by: Pregabalin (Pregabalin 150 Mg Cap) 150 mg PO BID [facility] Stop: 01/05/22 08:59 Last Admin: 12/09/21 08:31 Dose: 150 mg Documented by: Quetiapine Fumarate (Quetiapine Fumarate 200 Mg Tab) 400 mg PO HS [facility] Stop: 01/05/22 20:59 Last Admin: 12/08/21 20:47 Dose: 400 mg Documented by: Quetiapine Fumarate (Quetiapine Fumarate 100 Mg Tablet) [facility]: 01/05/22 08:59 Last Admin: 12/09/21 08:26 Dose: 100 mg Documented by: Rivaroxaban (Rivaroxaban 20 Mg Tab) 20 mg PO QAM [facility] Stop: 01/05/22 08:59 Last Admin: 12/09/21 08:26 Dose: 20 mg Documented by: Sacubitril/Valsartan (Valsartan/Sacubitril 26/24mg Tab) 1 tab PO BID [facility] Stop: 01/05/22 08:59 Last Admin: 12/09/21 08:26 Dose: 1 tab Documented by: Tramadol HCl (Tramadol Hcl 50 Mg Tablet) 50 mg PO Q8 PRN PRN Reason: pain Stop: 01/05/22 06:17 Last Admin: 12/06/21 19:42 Dose: 50 mg Documented by: Trazodone HCl (Trazodone Hcl 100 Mg Tab) 200 mg PO HS [facility] Stop: 01/05/22 20:59 Last Admin: 12/08/21 20:48 Dose: 200 mg Documented by: Umeclidinium/Vilanterol (Umeclidinium/Vilanterol 62.5/25mcg 7 Puffs/Inhaler) 1 puffs INH Q24H [facility] Stop: 01/05/22 08:59 Last Admin: 12/09/21 08:25 Dose: 1 puffs Documented by: PG Care Time/CCT Total # of Minutes Spent Total Time Spent with Patient: Total time spent is greater than 50% in coordination of care (as documented) at patient's floor/unit and/or counseling patient: Coding Level of Care Code 76432 Subseq Hosp Care Lvl 3 Diagnoses Acute on chronic HFrEF (heart failure with reduced ejection fraction) I50.23 Nonischemic cardiomyopathy I42.8 ICD (implantable cardioverter-defibrillator) in place Z95.810 Atrial fibrillation, permanent I48.21 Anticoagulant long-term use Z79.01 Ventricular tachycardia I47.2 Mitral regurgitation I34.0 Pericardial effusion I31.3
[2021-12-09] MEDS: DIGOXIN 0.125 MG TAB PO SCH (15:17)
--- NOTE | 2021-12-09 17:30 | Discharge Summary ---
Date of Service December 09, 2021 Admission HPI Per Admitting Provider 60 y/o F Hx schizoaffective, HTN, HLD, DM II, COPD - home 02, morbid obesity, chronic AF, CHF (EF 20%), BiV pacer. Frequent admits for CHF exacerbation. Presents with progressive shortness of breath, pronounce with exertion and lying flat. She has not had CP and denies a cough or fever. The pt admits to dining at [facility] earlier in the day. On arrival to the ER she was tachycardic and hypertensive. Labs are notable for mild leukocytosis. An EKG demonstrated rapid AF at an approximate rate of 110, without evidence of acute ischemia. CHF is confirmed on CXR. PMH: 1) HTN 2) HLD 3) Obese 4) PE - 2013 5) DM II 6) Chronic AF 7) COPD - 3L home 02 8) Systolic CHF - EF ~ 20% 9) Severe pulmonary HTN 10) Schizoaffective disorder 11) VT 12) BiV pacer Surgical: 1) Tib/fib ORIF 2) Tubal ligation 3) AICD/pacer 4) Ulnar nerve decompression Social: Prior smoker. Does not drink alcohol. Family: Mother - CHF Principal Diagnosis HFrEF Discharge Exam General: Obese, middle-aged F, AAO x 3, ENT: No erythema or exudates, no thrush Eyes: RITA, EOMI Head and neck: Normocephalic, atraumatic, No JVD, neck is supple. Chest/heart: Nontender, S1,2, RRR, no murmurs, no gallops Lungs: CTAB, no wheezing or crackles Abdomen: Nontender, nondistended, BS+ Neuro: AAO x 3, speech is clear, no unilateral weakness or loss of sensation, coordination intact Musculoskeletal: No joint inflammation, muscle tenderness, FROM Skin: No acute rashes or ulcers Extremities: Mild BL edema Discharge Data Allergies Allergy/AdvReac Type Severity Reaction Status Date / Time fentanyl Allergy Mild RASH,ITCHIN Verified 12/06/21 02:39 G Consultations 12/06/21 03:35 ED Decision to Admit Stat 12/06/21 03:42 ED Decision to Admit Stat 12/06/21 06:18 Consult Cardiology Routine Hospital Course (1) Acute on chronic HFrEF (heart failure with reduced ejection fraction): 60 y/o F Hx schizoaffective, HTN, HLD, DM II, COPD - home 02, morbid obesity, chronic AF, CHF (EF 20%), BiV pacer. Frequent admits for CHF exacerbation. Presents with progressive shortness of breath, pronounce with exertion and lying flat. She has not had CP and denies a cough or fever. The pt admits to dining at [employer] earlier in the day. On arrival to the ER she was tachycardic and hypertensive. Labs are notable for mild leukocytosis. An EKG demonstrated rapid AF at an approximate rate of 110, without evidence of acute ischemia. CHF is confirmed on CXR. 1) CHF exacerbation - may be due to salt intake. Treated with IV Lasix, transitioned to PO lasix 80 mg daily. Continue to monitor daily weight, I/O, cardiology consult for med adjustment on DC. Cont Entresto. Add Jardiance at discharge. 2) COPD - no evidence of exacerbation on labs. 02 protocol, cont prescribed inhaler. Recommend at home patient tries to maintain an O2 sat of 88-92%. Pulmonary in outpatient note recommmended cutting back to 2 liters or even 1 liter of Nasal cannula if 02 sat above 92%. 3) AF - heart rate tachycardic initially. Improved with diuresis. Cont digoxin, metoprolol. Cont Xarelto. 4) DM - sliding scale while inpatient, resume home meds at discharge. 5) HTN, HLD - cont metoprolol, statin Full code - Xarelto prophylaxis (2) Atrial fibrillation: Total Time Total Time Spent Total Time Spent (In Minutes): 40 Discharge Plan Discharge Items Patient Disposition: Home - Self-Care Reason For Visit: CHF EXACERBATION Discharge Diagnosis: CHF exacerbation Activity: Resume your previous activity Non-emergency contact: Primary Care Provider Call non-emergency contact if: you have any medication questions Follow-up/Referrals: Antonio Oliver MD [Primary Care Provider] - Catalina Almanza PA-C [Physician Coloring Room Worker] - 12/15/21 3:00 pm Diet: Carb Count or DM1 and Low Sodium (2gm) Fluids: 1500ml (6 cups) Addtl Attending Provider Instructions: Please keep o2 sat between 88-92%. If higher, lower your oxygen to 1-2 liters Call your Primary Care doctor if any of the following symptoms or problems start or get worse: * Shortness of breath or difficulty breathing * Wake up at night short of breath * Chest pain * Cough * Swelling of your hands, feet, or legs * More fatigued or tired with your normal activity * Palpitations - sudden fast heart beats WEIGHT * Weigh yourself every morning after using the bathroom. * Use the same scale. * Wear the same amount of clothing. * Write your weight down on a chart. * Call your Primary Care doctor if you gain more than 2-3 pounds in 1-2 days. MEDICATIONS * Use this discharge instruction sheet for medication instructions. * Take your medications at the time your doctor ordered. * Do not skip a dose of your medicines. * If you miss a dose of medicine, take it as soon as possible, but DO NOT DOUBLE A DOSE. * Read your medicine information when you get home. * Know all of the side effects of your medicine. If in doubt, ask your pharmacist * Call your Primary Care doctor's office if you have any side effects. * Be sure all of your doctors know what medicine and herbs you take (including cold, flu, and herbal medicine). Take the following with you to your follow-up doctor appointments: * Weight Chart * Medication List * List of questions Do not drink excessive alcohol, beer or wine. Pending Studies at Discharge: No Stand-Alone Forms: My [facility], Smoking Cessation Medications and DC Order Prescriptions: New Jardiance 10 mg tablet 10 mg PO DAILY Qty: 30 RF: 0 Continued metformin 500 mg tablet 500 mg PO BID Qty: 60 RF: 5 quetiapine [Seroquel] 400 mg tablet 400 mg PO HS RF: 0 (DME) Portable Oxygen Misc See Rx Instructions .MEDSUPPLY Qty: 1 RF: 0 Entresto 24-26 mg tablet 1 tab PO BID Qty: 60 RF: 2 atorvastatin 10 mg tablet 10 mg PO QAM Qty: 90 RF: 3 Xarelto 20 mg tablet 20 mg PO QAM Qty: 90 RF: 2 omeprazole 20 mg capsule,delayed release(DR/EC) 20 mg PO DAILYBB Qty: 90 RF: 3 digoxin 125 mcg (0.125 mg) tablet 125 mcg PO QAM Qty: 90 RF: 3 pregabalin 150 mg capsule 150 mg PO BID 30 Days Qty: 60 RF: 5 furosemide 40 mg tablet 80 mg PO DAILY Qty: 180 RF: 1 docusate sodium [Colace] 100 mg capsule 100 mg PO BID Qty: 180 RF: 3 Anoro Ellipta 62.5-25 mcg/actuation blister with device 1 inh INH Q24H Qty: 3 RF: 2 (DME) Incentive Spirometer Misc See Rx Instructions .MEDSUPPLY Qty: 1 RF: 0 metoprolol succinate 100 mg tablet extended release 24 hr 100 mg PO DAILY Qty: 90 RF: 3 tramadol 50 mg tablet 50 mg PO DAILY PRN (Reason: pain) Qty: 30 RF: 5 trazodone 100 mg tablet 200 mg PO HS RF: 0 quetiapine [Seroquel] 100 mg Tablet 100 mg PO QAM RF: 0 (DME) Oxygen Home Liters Per Minute See Rx Instructions .ROUTE .MEDSUPPLY Qty: 1 RF: 0 magnesium oxide 400 mg (241.3 mg magnesium) tablet 400 mg PO QAM RF: 0 potassium chloride 20 mEq tablet extended release 40 meq PO QAM RF: 0 hydroxyzine HCl 50 mg Tablet 50 mg PO DAILY PRN (Reason: Anxiety) RF: 0 No Action diclofenac sodium [Voltaren Arthritis Pain] 1 % gel 2 g topical QID PRNRF: 0 Discharge Orders: Discharge Order (Routine); Ordered 12/09/21 Ordered By: Dashawn Mccall Admission Data Admit Date/Time: 12/06/21 05:53 Attending Provider: Dashawn Mccall Admit Provider: Benjy Hagen Primary Care Provider: Antonio Oliver V. Other Providers: Benjy Hagen ; Guilherme Pelayo ; [facility] Other Interventions: Discharge Summary Assessment (RN) Last Done: 12/09/21 14:52 Coding Level of Care Code D/C DAY MANAGEMENT >30 MINS Diagnoses Acute on chronic HFrEF (heart failure with reduced ejection fraction) I50.23 Atrial fibrillation I48.20 Atrial fibrillation type: unspecified chronic
== END 2021-12-09 16:38 | disposition home or self-care (01) | DRG 291 ==
LOC: ED 01:32 → SUATTDRO 05:53 → 2E 05:53

== ENCOUNTER 2022-01-05 11:17 | Inpatient (IN) ==
--- NOTE | 2022-01-05 11:56 | Electrocardiogram Report ---
Test Reason : Blood Pressure : / mmHG Vent. Rate : 127 BPM Atrial Rate : 375 BPM P-R Int : 000 ms QRS Dur : 108 ms QT Int : 340 ms P-R-T Axes : 000 109 -57 degrees QTc Int : 494 ms Poor data quality, interpretation may be adversely affected Atrial fibrillation with rapid ventricular response Rightward axis Nonspecific ST and T wave abnormality Abnormal ECG When compared with ECG of 06-DEC-2021 01:43, No significant change was found Confirmed by Guilherme Pelayo ([id number]) on 01/05/2022 11:56:15 AM Referred By: REFERRED SELF Confirmed By:Yash Pelayo
--- NOTE | 2022-01-05 11:58 | XRay Report ---
XR chest 1V portable HISTORY: Atypical Chest Pain COMPARISON: Chest 12/06/2021. FINDINGS: No pneumothorax. The cardiac silhouette remains enlarged. There is mild interstitial pulmon selam edema with bilateral pleural effusions, left greater than right. These remain unchanged. There ar e old, healed left-sided rib fractures. Left-sided pacemaker/diffuse bladder. Left basilar densities persist and may represent compressive atelectasis from the moderate pleural effusion. IMPRESSION: 1. No change in the pulmonary edema and bilateral pleural effusions. 2. Marked cardiomegaly is again noted. ACT 112: Negative or not required by law. Electronically signed by: Tyler Davis M.D. 01/05/2022 11:57 AM
[2022-01-05 11:59] LABS: Basophils # (auto) 0.06 K/uL (0-0.2); Basophils % (auto) 0.4 %; Eosinophils % (auto) 0.7 %; Hematocrit (blood only) 39.4 % (34.1-44.9); Hemoglobin 12.7 g/dl (12.0-16.0); Immature Granulocytes # (auto) 0.03 K/uL (0.00-0.02); Immature Granulocytes % (auto) 0.2 %; Lymphocytes # (auto) 1.32 K/uL (1.2-3.4); Lymphocytes % (auto) 9.8 %; Mean Corpuscular Hemoglobin 26.5 pg (25.0-34.0); Mean Corpuscular Hgb Conc 32.2 g/dL (32.0-36.0); Mean Corpuscular Volume 82.1 fL (80.0-100.0); Mean Platelet Volume 9.7 fL (9.4-12.3); Monocytes % (auto) 5.2 %; Neutrophils # (auto) 11.32 K/uL (1.4-6.5); Neutrophils % (auto) 83.7 %; Platelet Count 351 K/uL (130-400); RDW Coefficient of Variation 16.1 % (11.5-14.5); RDW Standard Deviation 47.9 fL (36.4-46.3); White Blood Count 13.53 K/ul (4.8-10.8)
[2022-01-05 12:10] LABS: INR 1.3 (0.9-1.1); Prothrombin Time 13.5 Seconds (9.0-12.0)
[2022-01-05 12:36] LABS: Alanine Aminotransferase 20 U/L (7-52); Albumin Level 4.1 gm/dl (3.4-5.0); Alkaline Phosphatase 115 U/L (34-104); Anion Gap 12 (3-11); Aspartate Aminotransferase 21 U/L (13-39); BUN Creatinine Ratio 18.8 (10-20); Bilirubin,Total 0.4 mg/dl (0.2-1.0); Blood Urea Nitrogen 19 mg/dl (6-23); Carbon Dioxide 29 mmol/L (21-32); Chloride 97 mmol/L (98-107); Est GFR (African American) 70.1 ml/min; Est GFR (Non-African American) 60.5 ml/min; Globulin 4.3 gm/dl (2.5-4.0); Glucose 104 mg/dl (70-99(Fasting)); Lipase 14 U/L (11-82); Magnesium 1.9 mg/dl (1.7-2.4); Phosphorus 5.9 mg/dl (2.5-4.9); Sodium 138 mmol/L (136-145); Total Protein 8.4 gm/dl (6.0-8.3)
[2022-01-05 12:41] LABS: Troponin I High Sensitivity 12.1 pg/ml (0-14)
[2022-01-05] MEDS ORDERED: SODIUM CHLORIDE 0.9% 500 ML IV ONE (13:29)
[2022-01-05] MEDS ORDERED: LORazepam 1 MG TAB SL STA (14:32)
[2022-01-05] MEDS ORDERED: LORazepam 0.5 MG TAB ONE (14:35)
--- NOTE | 2022-01-05 16:11 | Emergency Department Note ---
Impression & Plan Dizziness, Pulmonary edema, Chronic systolic heart failure ED Provider Note NAME: AIMEE CERVANTES AGE: 61 SEX: F ARRIVES VIA: Walk-In INFORMANT: Patient ED PROVIDER(S): Neno Chung MD CHIEF COMPLAINT: Dizziness PLAN: Disposition: Admit MEDICAL DECISION MAKING: The patient is a pleasant 61-year-old woman with a past medical history of schi zoaffective disorder, hypertension, hyperlipidemia, COPD on home O2, chronic atrial fibrillation, CHF (EF of 25-30%, severe MR, echo 12/07/2021), status post ICD who presents emerged department for evaluation of lightheadedness that she first noticed this morning and her report of feeling confused and that she could not find her words. She reports however upon arrival emergency department all the symptoms had resolved. She denies fevers, chills, cough, congestion, n/v/d, or urinary symptoms. She reports her weight has been stable and does not feel she is retaining fluid. On arrival the patient is no acute distress, afebrile with heart rate in the 120s and blood pressure 90s-100s/50s-70s. EKG demonstrates atrial fibrillation with RVR without overt acute ischemia. Chest x-ray with stable/unchanged mild interstitial pulmonary edema and bilateral pleural effusions in the setting of chronic systolic heart failure. WBC 13.5K nonspecific. H/H and platelets within normal limits. Chemistry w ithout metabolic acidosis. Phosphorus 5.9 and electrolytes otherwise without significant abnormality. LFTs unremarkable. High-sensitivity troponin 12.1, within normal. Lipase is not elevated. TSH within normal limits. The patient did report feeling improved after gentle IV fluid hydration in the setting of her CHF. A CT of the head and CTA of the head and neck were ordered however unfortunately the patient could not tolerate the study as she had reported that she was too anxious. She was just returned to her room where she was given sublingual Ativan and then a second attempt occurred however the patient again could not tolerate the study due to which she attributed to as anxiety. However this does seem to be provoked when she lies flat and so suggesting a component of orthopnea. Thus she may have a component of CHF as well. Her weight today is 122 KG which is up from outpatient evaluation where the patient was deemed to be well compensated when 118 KG. Thus, she was ordered for IV Lasix. Given patient's fluctuating symptoms she did agree with plan for admission for further management. CT cancelled given patient's inability to tolerate lying supine and low suspicion for CVA. Case was discussed with Dr. Hardwick [place] hospitalist, who will evaluate the patient for admission. Triage Nursing notes reviewed and agree them. Prior medical records reviewed Vital Signs: reviewed and remarkable for tachycardia. Differential diagnosis: Infection, dehydration, metabolic abnormality, hypo/hyperglycemia, electrolyte disturbance, anemia, hypoxia, cardiac sources, intracerebral event, toxicologic, neurologic, as well as other pathologies. ER treatment provided: See below. Diagnostics interpreted by me: ECG: Atrial fibrillation, RVR, 127 bpm, no ectopy, nonspecific ST and T wave abnormality, no overt ST elevation or depression, QTC 404, QRS 108. Cardiac Monitoring: An order for continuous cardiac monitoring was placed and demonstrated Atrial fibrillation, RVR, 127 bpm, no ectopy. Laboratory studies: See below Imaging studies: See below Consultation(s): Dr. Hardwick [place] hospitalist HPI: The patient is a pleasant 61-year-old woman with a past medical history of schizoaffective disorder, hypertension, hyperlipidemia, COPD on home O2, chronic atrial fibrillation, CHF (EF of 25-30%, severe MR, echo 12/07/2021), status post ICD who presents emerged department for evaluation of lightheadedness that she first noticed this morning and her report of feeling confused and that she could not find her words. She reports however upon arrival emergency department all the symptoms had resolved. She denies fevers, chills, cough, congestion, n/v/d, or urinary symptoms. She reports her weight has been stable and does not feel she is retaining fluid. ROS: See above HPI for pertinent positives & negatives. A total of 10 systems reviewed and were otherwise negative. VITALS:See Below PHYSICAL EXAMINATION: GENERAL: Awake, alert, chronically ill-appearing, in no distress HENT: Normocephalic, atraumatic. Oropharynx with dry mucous membranes and otherwise unremarkable. EYES: Normal conjunctiva. Sclera non-icteric. EOMI. No nystamgus. PEARRL. NECK: Supple. No nuchal rigidity. FROM. No JVD. RESPIRATORY: Diminished at the bases. Otherwise, clear to auscultation. CARDIAC: Regular rate, irregular rhythm. Extremities warm and well perfused. Pulses equal. ABDOMEN: Soft, non-distended. No tenderness to palpation. No rebound or guarding. No masses. RECTAL: Deferred. MUSCULOSKELETAL: Chest examination reveals no tenderness. The back is symmetrical on inspection without obvious abnormality. There is no CVA tenderness to palpation. No joint edema. LOWER EXTREMITIES: Calves are equal size bilaterally and non-tender. Scant BLE edema. No discoloration. NEURO: Normal sensorium. No focal sensory or motor deficits noted. Speech is fluent without overt aphasia. 5/5 strength and SILT x 4 extremities. Cerebellar function intact including [id number]. SKIN: No rash or jaundice noted. Neno Chung MD Past Med/Surg History Medical History (Updated 01/05/22 @ 22:13 by Neno Chung MD) KIRSTIN (acute kidney injury) pt unaware Asthma inhaler prn Atrial fibrillation on xarelto/metoprolol/digoxin--follows with Dr. 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 pt denies History of pulmonary embolism HTN (hypertension) 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 unsure type of i nfection Memory impairment Morbid obesity On anticoagulant therapy xarelto daily On home oxygen therapy 2L N/C at all times Pericardial effusion Peripheral neuropathy PTSD (post-traumatic stress disorder) Pulmonary embolism 2013 while living in [place] - currently on Xarelto Pulmonary hypertension Restrictive lung disease 2L NC O2 continuous Schizoaffective disorder Severe mitral regurgitation Small bowel obstruction hx of - resolved with NG suction Ventricular arrhythmia Vitamin D deficiency Surgical History AICD (automatic cardioverter/defibrillator) present ~2006 - [facility] - ICD - meditronic - Follows Dr. Pelayo History of cardiac cath x2?-- - no stents - ICD placed 2006 - follows Dr. Pelayo History of decompression of both ulnar nerves History of eye surgery left History of hernia surgery x2 History of incision and drainage (~09/30/20) left tibia History of open reduction and internal fixation (ORIF) procedure left tibia--hardware in place History of tooth extraction partial upper S/P ORIF (open reduction internal fixation) fracture ankle, left--hardware in place S/P tubal ligation Family History (Updated 01/05/22 @ 18:07 by Dustin Renteria MD) Mother , in her 70s Congestive heart failure (CHF) Breast cancer Lung cancer from this Father No problems noted. Grandmother (Paternal) Stroke Other Hypertension No family history of adverse response to anesthesia Ulcerative colitis Denies family history of Colon cancer Ovarian cancer Prostate cancer Myocardial infarction Social History Smoking Status: Former smoker Tobacco Type: Cigarettes Years Smoked: 30; Second Hand Exposure: No; Hx Alcohol Use: Yes Alcohol type: hard liquor Alcohol Intake Frequency Comment: weekends only Hx Substance Use: No Preferred Language: Stateless Communication Ability: Effective Visual Impairment: No Limitations Hearing Ability: Normal Chemical Strength Tester Required: No Beliefs That Will Affect Care: None marital status: marital status details: 5 kids Current Living Situation: Alone Current Living Situation Comment: pt has aide 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; 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 [employer]; was in EPS x 7 yr other: lives in [place] Feels Safe at Home: Yes Childhood Exposure to Second-Hand Smoke: Yes Dental Care, Regularly: No Physical Activity Frequency: Does not Exercise Assistive Devices: CPAP, Denture - Lower, Glasses and Walker Allergies Allergies Allergy/AdvReac Type Severity Reaction Status Date / Time fentanyl Allergy Mild RASH,ITCHIN Verified 01/05/22 16:11 G Home Meds Home Medications Medication Instructions Recorded Confirmed trazodone 100 mg tablet 200 mg PO HS 10/07/18 01/05/22 quetiapine 100 mg tablet (Seroquel) 100 mg PO QAM 01/02/19 01/05/22 quetiapine 400 mg tablet (Seroquel) 400 mg PO HS 07/05/19 01/05/22 magnesium oxide 400 mg (241.3 mg 400 mg PO QAM 03/24/21 01/05/22 magnesium) tablet potassium chloride 20 mEq 40 meq PO QAM 03/24/21 01/05/22 tablet,extended release hydroxyzine HCl 50 mg tablet 50 mg PO QPM PRN Anxiety 05/06/21 01/05/22 diclofenac sodium 1 % topical gel 2 g topical QID PRN arthritis 12/10/21 01/05/22 (Voltaren Arthritis Pain) empagliflozin 10 mg tablet 10 mg PO QAM 12/17/21 01/05/22 (Jardiance) furosemide 40 mg tablet 80 mg PO QAM 12/17/21 01/05/22 metoprolol succinate 100 mg 100 mg PO QAM 12/17/21 01/05/22 tablet,extended release 24 hr omeprazole 20 mg capsule,delayed 20 mg PO QAM 12/17/21 01/05/22 release tramadol 50 mg tablet 50 mg PO QAM PRN pain 12/17/21 01/05/22 umeclidinium 62.5 mcg-vilanterol 1 inh inhalation QAM 12/17/21 01/05/22 25 mcg/actuation powdr for inhalation (Anoro Ellipta) Previous Rx's Medication Instructions Recorded metformin 500 mg tablet 500 mg PO BID #60 tabs 12/15/18 Oxygen Home #1 ea 05/09/19 docusate sodium 100 mg capsule 100 mg PO BID #180 caps 06/28/19 (Colace) Portable Oxygen #1 ea 07/29/20 atorvastatin 10 mg tablet 10 mg PO QAM #90 tabs 04/21/21 rivaroxaban 20 mg tablet (Xarelto) 20 mg PO QAM #90 tabs 05/19/21 digoxin 125 mcg (0.125 mg) tablet 125 mcg PO QAM #90 tabs 06/16/21 pregabalin 150 mg capsule 150 mg PO BID 30 days #60 caps 08/10/21 Incentive Spirometer #1 ea 11/16/21 sacubitril 24 mg-valsartan 26 mg 1 tab PO BID #60 tabs 12/25/21 tablet (Entresto) Results & Data (ED) Vital Signs Vital Signs - 24 hr 01/05/22 11:18 01/05/22 11:32 01/05/22 11:50 Temperature 36.0 C L Temperature Source Temporal Artery Scan Pulse Rate 120 H 123 H Pulse Rate [Apical] Pulse Rate from SpO2 Sensor Pulse Rhythm Irregular Respiratory Rate 20 22 Respiratory Effort / Characteristics Non-Labored Respiratory Depth Normal Blood Pressure 105/61 Blood Pressure [Right Arm] Blood Pressure Mean 75 Blood Pressure Mean [Right Arm] Pulse Oximetry 94 97 Oxygen Delivery Method Nasal Cannula Nasal Cannula Nasal Cannula Oxygen Flow Rate 3 2 2 Fraction of Inspired Oxygen 98 Sepsis Recent Fever Within 48 Hours No Sepsis New/Unexplained Change in Mental Status N/A Sepsis Action Taken by Nursing No Action Required 01/05/22 12:00 01/05/22 12:30 01/05/22 13:00 Temperature Temperature Source Pulse Rate Pulse Rate [Apical] 105 H 110 H 106 H Pulse Rate from SpO2 Sensor Pulse Rhythm Respiratory Rate 20 18 18 Respiratory Effort / Characteristics Respiratory Depth Blood Pressure Blood Pressure [Right Arm] 104/68 102/64 96/74 L Blood Pressure Mean Blood Pressure Mean [Right Arm] 80 76 81 Pulse Oximetry 97 96 95 Oxygen Delivery Method Nasal Cannula Room Air Room Air Oxygen Flow Rate 2 Fraction of Inspired Oxygen Sepsis Recent Fever Within 48 Hours Sepsis New/Unexplained Change in Mental Status Sepsis Action Taken by Nursing 01/05/22 13:30 01/05/22 13:30 01/05/22 14:00 Temperature Temperature Source Pulse Rate 94 H Pulse Rate [Apical] Pulse Rate from SpO2 Sensor Pulse Rhythm Respiratory Rate 20 Respiratory Effort / Characteristics Respiratory Depth Blood Pressure 94/68 L 103/78 Blood Pressure [Right Arm] Blood Pressure Mean 76 86 Blood Pressure Mean [Right Arm] Pulse Oximetry 95 Oxygen Delivery Method Oxygen Flow Rate 2 Fraction of Inspired Oxygen Sepsis Recent Fever Within 48 Hours Sepsis New/Unexplained Change in Mental Status Sepsis Action Taken by Nursing 01/05/22 14:00 01/05/22 14:39 01/05/22 14:10 Temperature Temperature Source Pulse Rate 99 H 104 H Pulse Rate [Apical] 98 H Pulse Rate from SpO2 Sensor 101 H Pulse Rhythm Respiratory Rate 22 18 21 Respiratory Effort / Characteristics Respiratory Depth Blood Pressure Blood Pressure [Right Arm] 95/65 L Blood Pressure Mean Blood Pressure Mean [Right Arm] 75 Pulse Oximetry 96 97 97 Oxygen Delivery Method Nasal Cannula Oxygen Flow Rate 2 2 Fraction of Inspired Oxygen Sepsis Recent Fever Within 48 Hours Sepsis New/Unexplained Change in Mental Status Sepsis Action Taken by Nursing 01/05/22 14:38 01/05/22 14:40 01/05/22 14:40 Temperature Temperature Source Pulse Rate 96 H 94 H Pulse Rate [Apical] Pulse Rate from SpO2 Sensor 98 H Pulse Rhythm Respiratory Rate 22 23 Respiratory Effort / Characteristics Respiratory Depth Blood Pressure 95/65 L Blood Pressure [Right Arm] Blood Pressure Mean 75 Blood Pressure Mean [Right Arm] Pulse Oximetry 97 Oxygen Delivery Method Oxygen Flow Rate Fraction of Inspired Oxygen Sepsis Recent Fever Within 48 Hours Sepsis New/Unexplained Change in Mental Status Sepsis Action Taken by Nursing 01/05/22 14:50 01/05/22 15:00 01/05/22 15:00 Temperature Temperature Source Pulse Rate 97 H 94 H Pulse Rate [Apical] Pulse Rate from SpO2 Sensor 96 H 97 H Pulse Rhythm Respiratory Rate 34 H 22 Respiratory Effort / Characteristics Respiratory Depth Blood Pressure 89/54 L Blood Pressure [Right Arm] Blood Pressure Mean 65 Blood Pressure Mean [Right Arm] Pulse Oximetry 97 97 Oxygen Delivery Method Oxygen Flow Rate Fraction of Inspired Oxygen Sepsis Recent Fever Within 48 Hours Sepsis New/Unexplained Change in Mental Status Sepsis Action Taken by Nursing 01/05/22 15:19 01/05/22 15:20 01/05/22 15:30 Temperature Temperature Source Pulse Rate 98 H 87 86 Pulse Rate [Apical] Pulse Rate from SpO2 Sensor 94 H 88 Pulse Rhythm Respiratory Rate 20 30 H 24 Respiratory Effort / Characteristics Respiratory Depth Blood Pressure Blood Pressure [Right Arm] Blood Pressure Mean Blood Pressure Mean [Right Arm] Pulse Oximetry 98 99 Oxygen Delivery Method Oxygen Flow Rate Fraction of Inspired Oxygen Sepsis Recent Fever Within 48 Hours Sepsis New/Unexplained Change in Mental Status Sepsis Action Taken by Nursing 01/05/22 15:40 01/05/22 15:50 01/05/22 16:00 Temperature Temperature Source Pulse Rate 94 H 89 Pulse Rate [Apical] Pulse Rate from SpO2 Sensor 101 H 87 Pulse Rhythm Respiratory Rate 21 20 Respiratory Effort / Characteristics Respiratory Depth Blood Pressure 100/73 Blood Pressure [Right Arm] Blood Pressure Mean 82 Blood Pressure Mean [Right Arm] Pulse Oximetry 98 97 Oxygen Delivery Method Oxygen Flow Rate Fraction of Inspired Oxygen Sepsis Recent Fever Within 48 Hours Sepsis New/Unexplained Change in Mental Status Sepsis Action Taken by Nursing 01/05/22 16:00 01/05/22 16:10 01/05/22 16:20 Temperature Temperature Source Pulse Rate 91 H 99 H 95 H Pulse Rate [Apical] Pulse Rate from SpO2 Sensor 111 H 94 H 87 Pulse Rhythm Respiratory Rate 23 21 18 Respiratory Effort / Characteristics Respiratory Depth Blood Pressure Blood Pressure [Right Arm] Blood Pressure Mean Blood Pressure Mean [Right Arm] Pulse Oximetry 99 96 97 Oxygen Delivery Method Oxygen Flow Rate Fraction of Inspired Oxygen Sepsis Recent Fever Within 48 Hours Sepsis New/Unexplained Change in Mental Status Sepsis Action Taken by Nursing 01/05/22 16:30 01/05/22 16:31 01/05/22 16:31 Temperature Temperature Source Pulse Rate 79 85 Pulse Rate [Apical] Pulse Rate from SpO2 Sensor 89 Pulse Rhythm Respiratory Rate 19 20 Respiratory Effort / Characteristics Respiratory Depth Blood Pressure 86/50 L Blood Pressure [Right Arm] Blood Pressure Mean 62 Blood Pressure Mean [Right Arm] Pulse Oximetry 100 Oxygen Delivery Method Oxygen Flow Rate Fraction of Inspired Oxygen Sepsis Recent Fever Within 48 Hours Sepsis New/Unexplained Change in Mental Status Sepsis Action Taken by Nursing 01/05/22 16:40 01/05/22 16:50 01/05/22 17:00 Temperature Temperature Source Pulse Rate 76 88 Pulse Rate [Apical] Pulse Rate from SpO2 Sensor 82 87 Pulse Rhythm Respiratory Rate 22 26 H Respiratory Effort / Characteristics Respiratory Depth Blood Pressure 111/63 Blood Pressure [Right Arm] Blood Pressure Mean 79 Blood Pressure Mean [Right Arm] Pulse Oximetry 97 99 Oxygen Delivery Method Oxygen Flow Rate Fraction of Inspired Oxygen Sepsis Recent Fever Within 48 Hours Sepsis New/Unexplained Change in Mental Status Sepsis Action Taken by Nursing 01/05/22 17:00 Temperature Temperature Source Pulse Rate 96 H Pulse Rate [Apical] Pulse Rate from SpO2 Sensor 98 H Pulse Rhythm Respiratory Rate 26 H Respiratory Effort / Characteristics Respiratory Depth Blood Pressure Blood Pressure [Right Arm] Blood Pressure Mean Blood Pressure Mean [Right Arm] Pulse Oximetry 99 Oxygen Delivery Method Oxygen Flow Rate Fraction of Inspired Oxygen Sepsis Recent Fever Within 48 Hours Sepsis New/Unexplained Change in Mental Status Sepsis Action Taken by Nursing Laboratory Data Attestation: I reviewed the patient's lab results. Result diagrams: 01/05/22 11:46 01/05/22 11:46 Lab Results 01/05/22 01/05/22 01/05/22 Range/Units 11:46 11:46 11:46 WBC 13.53 H (4.8-10.8) K/ul RBC 4.80 (3.93-5.22) M/uL Hgb 12.7 (12.0-16.0) g/dl Hct 39.4 (34.1-44.9) % MCV 82.1 (80.0-100.0) fL MCH 26.5 (25.0-34.0) pg MCHC 32.2 (32.0-36.0) g/dL RDW Std Deviation 47.9 H (36.4-46.3) fL RDW Coeff of Logan 16.1 H (11.5-14.5) % Plt Count 351 (130-400) K/uL MPV 9.7 (9.4-12.3) fL Immature Gran % (Auto) 0.2 % Neut % (Auto) 83.7 % Lymph % (Auto) 9.8 % [place] % (Auto) 5.2 % Eos % (Auto) 0.7 % Baso % (Auto) 0.4 % Neut # (Auto) 11.32 H (1.4-6.5) K/uL Lymph # (Auto) 1.32 (1.2-3.4) K/uL [place] # (Auto) 0.70 (0.24-0.82) K/uL Eos # (Auto) 0.10 (0-0.50) K/uL Baso # (Auto) 0.06 (0-0.2) K/uL Immature Gran # (Auto) 0.03 H (0.00-0.02) K/uL PT (9.0-12.0) Seconds INR (0.9-1.1) Sodium 138 (136-145) mmol/L Potassium 4.0 (3.5-5.1) mmol/L Chloride 97 L (98-107) mmol/L Carbon Dioxide 29 (21-32) mmol/L Anion Gap 12 H (3-11) BUN 19 (6-23) mg/dl Creatinine 1.01 (0.6-1.2) mg/dl Est Cr Clr Drug Dosing Not Reportable Est GFR ( Amer) 70.1 ml/min Est GFR (Non-Af Amer) 60.5 ml/min BUN/Creatinine Ratio 18.8 (10-20) Glucose 104 H (70-99(Fasting)) mg/dl POC Glucose (70-99) mg/dl Calcium 10.0 (8.5-10.1) mg/dl Phosphorus 5.9 H (2.5-4.9) mg/dl Magnesium 1.9 (1.7-2.4) mg/dl Total Bilirubin 0.4 (0.2-1.0) mg/dl AST 21 (13-39) U/L ALT 20 (7-52) U/L Alkaline Phosphatase 115 H (34-104) U/L Ammonia (18-72) umol/L Troponin I High Sens 12.1 (0-14) pg/ml Total Protein 8.4 H (6.0-8.3) gm/dl Albumin 4.1 (3.4-5.0) gm/dl Globulin 4.3 H (2.5-4.0) gm/dl Albumin/Globulin Ratio 1.0 (0.9-2) Lipase 14 (11-82) U/L TSH 1.204 (0.300-4.500) uIu/ml Digoxin (0.8-2.0) ng/ml SARS-CoV-2, RNA, NAAT (NEGATIVE) 01/05/22 01/05/22 01/05/22 Range/Units 11:46 11:53 17:13 WBC (4.8-10.8) K/ul RBC (3.93-5.22) M/uL Hgb (12.0-16.0) g/dl Hct (34.1-44.9) % MCV (80.0-100.0) fL MCH (25.0-34.0) pg MCHC (32.0-36.0) g/dL RDW Std Deviation (36.4-46.3) fL RDW Coeff of Logan (11.5-14.5) % Plt Count (130-400) K/uL MPV (9.4-12.3) fL Immature Gran % (Auto) % Neut % (Auto) % Lymph % (Auto) % [place] % (Auto) % Eos % (Auto) % Baso % (Auto) % Neut # (Auto) (1.4-6.5) K/uL Lymph # (Auto) (1.2-3.4) K/uL [place] # (Auto) (0.24-0.82) K/uL Eos # (Auto) (0-0.50) K/uL Baso # (Auto) (0-0.2) K/uL Immature Gran # (Auto) (0.00-0.02) K/uL PT 13.5 H (9.0-12.0) Seconds INR 1.3 H (0.9-1.1) Sodium (136-145) mmol/L Potassium (3.5-5.1) mmol/L Chloride (98-107) mmol/L Carbon Dioxide (21-32) mmol/L Anion Gap (3-11) BUN (6-23) mg/dl Creatinine (0.6-1.2) mg/dl Est Cr Clr Drug Dosing Est GFR ( Amer) ml/min Est GFR (Non-Af Amer) ml/min BUN/Creatinine Ratio (10-20) Glucose (70-99(Fasting)) mg/dl POC Glucose 109 H (70-99) mg/dl Calcium (8.5-10.1) mg/dl Phosphorus (2.5-4.9) mg/dl Magnesium (1.7-2.4) mg/dl Total Bilirubin (0.2-1.0) mg/dl AST (13-39) U/L ALT (7-52) U/L Alkaline Phosphatase (34-104) U/L Ammonia (18-72) umol/L Troponin I High Sens (0-14) pg/ml Total Protein (6.0-8.3) gm/dl Albumin (3.4-5.0) gm/dl Globulin (2.5-4.0) gm/dl Albumin/Globulin Ratio (0.9-2) Lipase (11-82) U/L TSH (0.300-4.500) uIu/ml Digoxin (0.8-2.0) ng/ml SARS-CoV-2, RNA, NAAT NEGATIVE (NEGATIVE) 01/05/22 01/05/22 Range/Units 19:04 19:04 WBC (4.8-10.8) K/ul RBC (3.93-5.22) M/uL Hgb (12.0-16.0) g/dl Hct (34.1-44.9) % MCV (80.0-100.0) fL MCH (25.0-34.0) pg MCHC (32.0-36.0) g/dL RDW Std Deviation (36.4-46.3) fL RDW Coeff of Logan (11.5-14.5) % Plt Count (130-400) K/uL MPV (9.4-12.3) fL Immature Gran % (Auto) % Neut % (Auto) % Lymph % (Auto) % [place] % (Auto) % Eos % (Auto) % Baso % (Auto) % Neut # (Auto) (1.4-6.5) K/uL Lymph # (Auto) (1.2-3.4) K/uL [place] # (Auto) (0.24-0.82) K/uL Eos # (Auto) (0-0.50) K/uL Baso # (Auto) (0-0.2) K/uL Immature Gran # (Auto) (0.00-0.02) K/uL PT (9.0-12.0) Seconds INR (0.9-1.1) Sodium (136-145) mmol/L Potassium (3.5-5.1) mmol/L Chloride (98-107) mmol/L Carbon Dioxide (21-32) mmol/L Anion Gap (3-11) BUN (6-23) mg/dl Creatinine (0.6-1.2) mg/dl Est Cr Clr Drug Dosing Est GFR ( Amer) ml/min Est GFR (Non-Af Amer) ml/min BUN/Creatinine Ratio (10-20) Glucose (70-99(Fasting)) mg/dl POC Glucose (70-99) mg/dl Calcium (8.5-10.1) mg/dl Phosphorus (2.5-4.9) mg/dl Magnesium (1.7-2.4) mg/dl Total Bilirubin (0.2-1.0) mg/dl AST (13-39) U/L ALT (7-52) U/L Alkaline Phosphatase (34-104) U/L Ammonia 22.0 (18-72) umol/L Troponin I High Sens (0-14) pg/ml Total Protein (6.0-8.3) gm/dl Albumin (3.4-5.0) gm/dl Globulin (2.5-4.0) gm/dl Albumin/Globulin Ratio (0.9-2) Lipase (11-82) U/L TSH (0.300-4.500) uIu/ml Digoxin 0.8 (0.8-2.0) ng/ml SARS-CoV-2, RNA, NAAT (NEGATIVE) Administered Medications Discontinued Medications Furosemide (Furosemide 40 Mg/4 Ml Vial) 80 mg IV ONE ONE Stop: 01/05/22 17:14 Last Admin: 01/05/22 18:24 Dose: 80 mg Documented By: CDV Sodium Chloride (Nss) 500 mls @ 999 mls/hr IV .Q31M ONE Stop: 01/05/22 13:59 Last Infusion: 01/05/22 14:46 Dose: 0 mls/hr Documented By: Admin: 01/05/22 13:59 Dose: 999 mls/hr Documented By: LUKE Lorazepam (Lorazepam 1 Mg Tab) 0.5 mg SL NOW STA Stop: 01/05/22 14:33 Last Admin: 01/05/22 14:36 Dose: Not Given Documented By: LUKE Lorazepam (Lorazepam 0.5 Mg Tab) Confirm Administered Dose 0.5 mg .ROUTE .STK- MED ONE Stop: 01/05/22 14:36 Last Admin: 01/05/22 14:36 Dose: 0.5 mg Documented By: LUKE Quetiapine Fumarate (Quetiapine Fumarate 200 Mg Tab) 400 mg PO ONE STA Stop: 01/05/22 19:59 Last Admin: 01/05/22 21:08 Dose: 400 mg Documented By: JULEE Sacubitril/Valsartan (Valsartan/Sacubitril 26/24mg Tab) 1 tab PO ONE STA Stop: 01/05/22 19:59 Last Admin: 01/05/22 21:08 Dose: 1 tab Documented By: JULEE Imaging Data Radiologist's Impression: Chest X-Ray 01/05/22 11:32 XR chest 1V portable HISTORY: Atypical Chest Pain COMPARISON: Chest 12/06/2021. FINDINGS: No pneumothorax. The cardiac silhouette remains enlarged. There is mi ld interstitial pulmonary edema with bilateral pleural effusions, left greater than right. These remain unchanged. There are old, healed left-sided rib fractures. Left-sided pacemaker/diffuse bladder. Left basilar densities persist and may represent compressive atelectasis from the moderate pleural effusion. IMPRESSION: 1. No change in the pulmonary edema and bilateral pleural effusions. 2. Marked cardiomegaly is again noted. ACT 112: Negative or not required by law. Electronically signed by: Tyler Davis M.D. 01/05/2022 11:57 AM Discharge Plan Visit Data Chief Complaint: Dizziness Stated Complaint: DIZZINESS, CONFUSION, SHAKING ED Provider: Neno Chung Discharge Problem: Dizziness, Pulmonary edema, Chronic systolic heart failure Forms Stand Alone Forms: [facility] [employer] Prescriptions Prescriptions: No Action metformin 500 mg tablet 500 mg PO BID Qty: 60 5RF quetiapine [Seroquel] 400 mg tablet 400 mg PO HS (DME) Portable Oxygen Misc See Rx Instructions .MEDSUPPLY Qty: 1 0RF Rx Instructions: Oxygen 3 liters continuous with portable concentrator. MARGE 99 atorvastatin 10 mg tablet 10 mg PO QAM Qty: 90 3RF Xarelto 20 mg tablet 20 mg PO QAM Qty: 90 2RF digoxin 125 mcg (0.125 mg) tablet 125 mcg PO QAM Qty: 90 3RF pregabalin 150 mg capsule 150 mg PO BID 30 Days Qty: 60 5RF Entresto 24-26 mg tablet 1 tab PO BID Qty: 60 2RF docusate sodium [Colace] 100 mg capsule 100 mg PO BID Qty: 180 3RF (DME) Incentive Spirometer Misc See Rx Instructions .MEDSUPPLY Qty: 1 0RF Rx Instructions: As directed diclofenac sodium [Voltaren Arthritis Pain] 1 % gel 2 g topical QID PRN (Reason: arthritis) trazodone 100 mg tablet 200 mg PO HS quetiapine [Seroquel] 100 mg Tablet 100 mg PO QAM (DME) Oxygen Home Liters Per Minute See Rx Instructions .ROUTE .MEDSUPPLY Qty: 1 0RF Rx Instructions: As directed - 2 liters continuously magnesium oxide 400 mg (241.3 mg magnesium) tablet 400 mg PO QAM potassium chloride 20 mEq tablet extended release 40 meq PO QAM hydroxyzine HCl 50 mg Tablet 50 mg PO QPM PRN (Reason: Anxiety) furosemide 40 mg tablet 80 mg PO QAM metoprolol succinate 100 mg tablet extended release 24 hr 100 mg PO QAM tramadol 50 mg tablet 50 mg PO QAM PRN (Reason: pain) omeprazole 20 mg capsule,delayed release(DR/EC) 20 mg PO QAM Anoro Ellipta 62.5-25 mcg/actuation blister with device 1 inh INH QAM Jardiance 10 mg tablet 10 mg PO QAM Referrals Referrals: Antonio Oliver MD [Primary Care Provider] -
[2022-01-05] MEDS ORDERED: FUROSEMIDE 40 MG/4 ML VIAL IV ONE (17:13)
--- NOTE | 2022-01-05 17:33 | History & Physical Report ---
Date of Service January 05, 2022 Assessment & Plan (1) Stroke-like symptoms: Plan: 61 year old female w/ HTN, HLD, preDM, chronic hypoxia on prn 2L O2, nonischemic CMP w/ EF 25-30% w/ BiV pacer, schizoaffective disorder, bipolar disorder, severe anxiety, and frequent hospital admissions for CHF exacerbations (most recently 1 month ago) who presented w/ generalized weakness and lightheadedness 7AM this morning when she woke up. Last known well previous night. stroke vs TIA workup: does have risk factors such as afib. considered TIA mimics such as infection and anxiety - ED had ordered CT head and CTA head+neck as part of stroke workup. However, patient has severe anxiety and despite ativan, the scan was unable to be completed. Per ocular care technologist, CT was attempted on 2 separate occasions. Unable to obtain CT scans of head/neck because of patient refusal. - routine brain MRI tomorrow; continue to follow/monitor regarding anxiety and inability to obtain - neuro consult deferred at this time - AM fasting lipids and a1c (2) Nonischemic cardiomyopathy: Plan: - optimize vol status, caution w/ fluids. s/p IV lasix 80 in ED. continue home PO lasix regimen. Nonobstructive CAD per cath in 2006. (3) Sepsis: Plan: - consider infectious sources as above - Blood cultures and UA. No empiric antibiotics at this time. SIRS 3/4. (4) Atrial fibrillation: Plan: Per review of prior ecgs, possible permanent afib. Continue home regimen of meto prolol succinate and digoxin. (5) Chronic respiratory failure with hypoxia: Plan: She has severe COPD and restrictive lung disease. Continue home Anoro Ellipta. Continue home prn 2L O2. Titrate to >90%. Respiratory status appears at baseline. (6) Anticoagulant long-term use: Plan: Hx of PE and afib. Continue home Xarelto. (7) 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: Plan: ~1 year ago. Some edema at surgical scar. No obvious infectious signs on exam such as streaking erythema or drainage. (8) Prediabetes: Plan: A1c 10/2021 was 6.6. Hold home metformin and Jardiance. SSI while inpatient. (9) Bipolar disorder: Plan: - reducing home seroquel qhs dose by half for qtc 490s. holding home trazodone (10) Hepatic steatosis: Plan: - noted (11) HTN (hypertension): Plan: - chronic, continue home regimen. currently normotensive (12) Schizoaffective disorder: Plan: - see above (13) GERD (gastroesophageal reflux disease): Plan: - continue PPI (14) Memory changes: Plan: Chronic. Noted by neurology in [id number] during workup for sensory polyneuropathy. Had recommended stop benadryl and increase sleep. (15) History of pulmonary embolism: Plan: - see above (16) Bumps on skin: Plan: - abd and extremities: appears acneiform. monitor for now - RUE, near armpit. Exam deferred. Per patient description, lesions resolved, but has pain. Considered post herpetic neuralgia. (17) Sensory polyneuropathy: Plan: - Saw [facility] neuro in . On gabapentin. Had been instructed to wean down EtOH. (18) ICD (implantable cardioverter-defibrillator) in place: Plan: Follows [facility]. Will need to check if MRI compatible. (19) Alcohol use disorder: Plan: - continue counseling Plan Diet, fluids: HH, low Na diet. No IVF. anticoag: Continue home Xarelto, lower suspicion for hemorrhage. CT head ordered, but unable to obtain at this time. code: full dispo: PCU History of Present Illness Chief Complaint: Generalized weakness, mild word-finding difficulty. Primary Care Provider: Antonio Oliver MD 61 year old female w/ HTN, HLD, preDM, chronic hypoxia on prn 2L O2, nonischemic CMP w/ EF 25-30% w/ BiV pacer, schizoaffective disorder, bipolar disorder, severe anxiety, and frequent hospital admissions for CHF exacerbations (most recently 1 month ago) who presented w/ generalized weakness and lightheadedness 7AM this morning when she woke up. She felt shaky flustered and as if she was having a severe panic attack. He felt disoriented and slight difficulty w/ word finding. She notes that she has had similar but milder word finding difficulties intermittently, usually episodes lasting days, in the past several years. Both her generalized weakness and the word finding difficulty improved several hours later, prior to coming to the hospital. She still endorses slight word-finding difficulty. Denies dysarthria though she at baseline does not pronounce words perfectly. She denies prior hx of stroke or MD. Per chart review, no recent prior MRI brain. She believes that recent tapering of her home prn O2 down from 3L to 2L has exacerbated her anxiety. Denies recent psych medication changes. Jardiance is recent new addition. Notable social hx: etoh: 10 oz of Vodka on some days. Drinks medical marijuana oils. Denies dysuria, fever/chills. Sputum yellow/brown, chronic. Denies diarrhea. Lookout well prior to today. Denies sick contact. Has aide at home. Patient does have a left tibial fracture that had infection a year ago and required I&D. The surgical scar swells intermittently; no drainage. Denies SOB. Had some increased feet swelling earlier today. 3lb wt gain from yesterday. Ate some [place] fries this week. ED course: 500mL bolus (BP 86/50x1, resolved). Lasix 80mg IV (several pounds above dry weight). Ativan 0.5mg IV. Allergies Allergy/AdvReac Type Severity Reaction Status Date / Time fentanyl Allergy Mild RASH,ITCHIN Verified 01/05/22 16:11 G Home Medications Medication Instructions Recorded Confirmed Type trazodone 100 mg tablet 200 mg PO HS 10/07/18 01/05/22 History metformin 500 mg tablet 500 mg PO BID #60 tabs 12/15/18 01/05/22 Rx quetiapine 100 mg tablet (Seroquel) 100 mg PO QAM 01/02/19 01/05/22 History Oxygen Home #1 ea 05/09/19 12/17/21 Rx docusate sodium 100 mg capsule 100 mg PO BID #180 caps 06/28/19 01/05/22 Rx (Colace) quetiapine 400 mg tablet (Seroquel) 400 mg PO HS 07/05/19 01/05/22 History Portable Oxygen #1 ea 07/29/20 12/17/21 Rx magnesium oxide 400 mg (241.3 mg 400 mg PO QAM 03/24/21 01/05/22 History magnesium) tablet potassium chloride 20 mEq 40 meq PO QAM 03/24/21 01/05/22 History tablet,extended release atorvastatin 10 mg tablet 10 mg PO QAM #90 tabs 04/21/21 01/05/22 Rx hydroxyzine HCl 50 mg tablet 50 mg PO QPM PRN Anxiety 05/06/21 01/05/22 History rivaroxaban 20 mg tablet (Xarelto) 20 mg PO QAM #90 tabs 05/19/21 01/05/22 Rx digoxin 125 mcg (0.125 mg) tablet 125 mcg PO QAM #90 tabs 06/16/21 01/05/22 Rx pregabalin 150 mg capsule 150 mg PO BID 30 days #60 caps 08/10/21 01/05/22 Rx Incentive Spirometer #1 ea 11/16/21 12/17/21 Rx diclofenac sodium 1 % topical gel 2 g topical QID PRN arthritis 12/10/21 01/05/22 History (Voltaren Arthritis Pain) empagliflozin 10 mg tablet 10 mg PO QAM 12/17/21 01/05/22 History (Jardiance) furosemide 40 mg tablet 80 mg PO QAM 12/17/21 01/05/22 History metoprolol succinate 100 mg 100 mg PO QAM 12/17/21 01/05/22 History tablet,extended release 24 hr omeprazole 20 mg capsule,delayed 20 mg PO QAM 12/17/21 01/05/22 History release tramadol 50 mg tablet 50 mg PO QAM PRN pain 12/17/21 01/05/22 History umeclidinium 62.5 mcg-vilanterol 1 inh inhalation QAM 12/17/21 01/05/22 History 25 mcg/actuation powdr for inhalation (Anoro Ellipta) sacubitril 24 mg-valsartan 26 mg 1 tab PO BID #60 tabs 12/25/21 01/05/22 Rx tablet (Entresto) Past Med/Surg History Medical History (Updated 01/12/22 @ 07:33 by Torin Hardwick) KIRSTIN (acute kidney injury) pt unaware Asthma inhaler prn Atrial fibrillation on xarelto/metoprolol/digoxin--follows with Dr. 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 pt denies History of pulmonary embolism HTN (hypertension) 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 unsure type of i nfection Left tibial fracture Memory impairment Morbid obesity On anticoagulant therapy xarelto daily On home oxygen therapy 2L N/C at all times Pericardial effusion Peripheral neuropathy PTSD (post-traumatic stress disorder) Pulmonary embolism 2013 while living in [place] - currently on Xarelto Pulmonary hypertension Restrictive lung disease 2L NC O2 continuous Schizoaffective disorder Severe mitral regurgitation Small bowel obstruction hx of - resolved with NG suction Ventricular arrhythmia Vitamin D deficiency Surgical History AICD (automatic cardioverter/defibrillator) present ~2006 - [facility] - ICD - meditronic - Follows Dr. Pelayo History of cardiac cath x2?-- - no stents - ICD placed 2006 - follows Dr. Pelayo History of decompression of both ulnar nerves History of eye surgery left History of hernia surgery x2 History of incision and drainage (~09/30/20) left tibia History of open reduction and internal fixation (ORIF) procedure left tibia--hardware in place History of tooth extraction partial upper S/P ORIF (open reduction internal fixation) fracture ankle, left--hardware in place S/P tubal ligation Family History Mother , in her 70s Congestive heart failure (CHF) Breast cancer Lung cancer from this Father No problems noted. Grandmother (Paternal) Stroke Other Hypertension No family history of adverse response to anesthesia Ulcerative colitis Denies family history of Colon cancer Ovarian cancer Prostate cancer Myocardial infarction Social History Smoking Status: Former smoker Tobacco Type: Cigarettes Years Smoked: 30; Second Hand Exposure: No; Hx Alcohol Use: Yes Alcohol type: hard liquor Alcohol Intake Frequency Comment: weekends only Hx Substance Use: No Preferred Language: Finnish Communication Ability: Effective Visual Impairment: No Limitations Hearing Ability: Normal After School Program Director Required: No Beliefs That Will Affect Care: None marital status: marital status details: 5 kids Current Living Situation: Alone Current Living Situation Comment: pt has aide 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: 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 has had wks of R upper arm hurting. Few wks ago, had a bunch of bumps at L arm. resolved, but has had pain after. Intermittent skin bumps on hands, abd, and legs. Physical Exam Physical Exam: General: Grossly A&O. NAD. Cooperative. HEENT: Atraumatic, normocephalic. EOMI. PERRL. No nystagmus. No appreciable JVD. Pulm: CTAB. -wheezes, -rales, -rhonchi. No respiratory distress. No crackles. Cardiac: RRR, -mrg. No LE edema. Abdominal: Nontender, slight distended vs obese, soft. Very mild diffuse ttp. Msk: Moving all extrem Neuro: CN II-xII intact. Strength and sensation of extrem intact. No speech slurring. No appreciable aphasia or word-finding difficulty on my exam. Integ: Augustus orozco has old surgical scar, slightly swelling around scar. Scattered macular spots (<1cm) on abd. Results & Data Results & Data ([facility]) Vital Signs (Past 12 Hours) Vital Signs Temp Pulse Pulse Resp BP BP Pulse Ox 01/05/22 17:00 96 H 26 H 99 01/05/22 17:00 111/63 01/05/22 16:50 88 26 H 99 01/05/22 16:40 76 22 97 01/05/22 16:31 85 20 100 01/05/22 16:31 86/50 L 01/05/22 16:30 79 19 01/05/22 16:20 95 H 18 97 01/05/22 16:10 99 H 21 96 01/05/22 16:00 91 H 23 99 01/05/22 16:00 100/73 01/05/22 15:50 89 20 97 01/05/22 15:40 94 H 21 98 01/05/22 15:30 86 24 01/05/22 15:20 87 30 H 99 01/05/22 15:19 98 H 20 98 01/05/22 15:00 94 H 22 97 01/05/22 15:00 89/54 L 01/05/22 14:50 97 H 34 H 97 01/05/22 14:40 94 H 23 97 01/05/22 14:40 95/65 L 01/05/22 14:38 96 H 22 01/05/22 14:10 104 H 21 97 01/05/22 14:39 98 H 18 95/65 L 97 01/05/22 14:00 99 H 22 96 01/05/22 14:00 103/78 01/05/22 13:30 94 H 20 95 01/05/22 13:30 94/68 L 01/05/22 13:00 106 H 18 96/74 L 95 01/05/22 12:30 110 H 18 102/64 96 01/05/22 12:00 105 H 20 104/68 97 01/05/22 11:50 123 H 22 97 01/05/22 11:32 01/05/22 11:18 36.0 C L 120 H 20 105/61 94 O2 Del Method O2 Flow Rate FiO2 01/05/22 17:00 01/05/22 17:00 01/05/22 16:50 01/05/22 16:40 01/05/22 16:31 01/05/22 16:31 01/05/22 16:30 01/05/22 16:20 01/05/22 16:10 01/05/22 16:00 01/05/22 16:00 01/05/22 15:50 01/05/22 15:40 01/05/22 15:30 01/05/22 15:20 01/05/22 15:19 01/05/22 15:00 01/05/22 15:00 01/05/22 14:50 01/05/22 14:40 01/05/22 14:40 01/05/22 14:38 01/05/22 14:10 01/05/22 14:39 2 01/05/22 14:00 Nasal Cannula 2 01/05/22 14:00 01/05/22 13:30 2 01/05/22 13:30 01/05/22 13:00 Room Air 01/05/22 12:30 Room Air 01/05/22 12:00 Nasal Cannula 2 01/05/22 11:50 Nasal Cannula 2 01/05/22 11:32 Nasal Cannula 2 98 01/05/22 11:18 Nasal Cannula 3 Laboratory Results Cardiac Enzymes 01/05/22 Range/Units 11:46 AST 21 (13-39) U/L Troponin I High Sens 12.1 (0-14) pg/ml Coagulation 01/05/22 Range/Units 11:46 PT 13.5 H (9.0-12.0) Seconds CBC 01/05/22 Range/Units 11:46 WBC 13.53 H (4.8-10.8) K/ul RBC 4.80 (3.93-5.22) M/uL Hgb 12.7 (12.0-16.0) g/dl Hct 39.4 (34.1-44.9) % Plt Count 351 (130-400) K/uL Neut # (Auto) 11.32 H (1.4-6.5) K/uL Lymph # (Auto) 1.32 (1.2-3.4) K/uL [place] # (Auto) 0.70 (0.24-0.82) K/uL Eos # (Auto) 0.10 (0-0.50) K/uL Baso # (Auto) 0.06 (0-0.2) K/uL Comprehensive Metabolic Panel 01/05/22 Range/Units 11:46 Sodium 138 (136-145) mmol/L Potassium 4.0 (3.5-5.1) mmol/L Chloride 97 L (98-107) mmol/L Carbon Dioxide 29 (21-32) mmol/L BUN 19 (6-23) mg/dl Creatinine 1.01 (0.6-1.2) mg/dl Glucose 104 H (70-99(Fasting)) mg/dl Calcium 10.0 (8.5-10.1) mg/dl AST 21 (13-39) U/L ALT 20 (7-52) U/L Alkaline Phosphatase 115 H (34-104) U/L Total Protein 8.4 H (6.0-8.3) gm/dl Albumin 4.1 (3.4-5.0) gm/dl Intake and Output 01/05/22 01/05/22 01/05/22 06:59 14:59 22:59 Intake Total 500 / 500 Balance 500 / 500 Intake: IV 500 / 500 Sodium Chloride 0.9% 500 ml @ 500 / 500 999 mls/hr IV .Q31M ONE Rx#: [id number] Other: Weight 122.3 kg Weight Measurement Method [facility] Weight 01/06/22 06:59 Weight 122.3 kg Diagnostic Findings Chest X-Ray 01/05/22 11:32 XR chest 1V portable HISTORY: Atypical Chest Pain COMPARISON: Chest 12/06/2021. FINDINGS: No pneumothorax. The cardiac silhouette remains enlarged. There is mild interstitial pulmonary edema with bilateral pleural effusions, left greater than right. These remain unchanged. There are old, healed left-sided rib fractures. Left-sided pacemaker/diffuse bladder. Left basilar densities persist and may represent compressive atelectasis from the moderate pleural effusion. IMPRESSION: 1. No change in the pulmonary edema and bilateral pleural effusions. 2. Marked cardiomegaly is again noted. ACT 112: Negative or not required by law. Electronically signed by: Tyler Davis M.D. 01/05/2022 11:57 AM ECG Additional Comments: Vent. Rate : 127 BPM Atrial Rate : 375 BPM P-R Int : 000 ms QRS Dur : 108 ms QT Int : 340 ms P-R-T Axes : 000 109 -57 degrees QTc Int : 494 ms Poor data quality, interpretation may be adversely affected Atrial fibrillation with rapid ventricular response Rightward axis Nonspecific ST and T wave abnormality Abnormal ECG When compared with ECG of 06-DEC-2021 01:43, No significant change was found Confirmed by Guilherme Pelayo ([id number]) on 01/05/2022 11:56:15 AM Code Status & VTE Plan Code Status full VTE Prophylaxis Plan VTE Prophylaxis will be ordered: Yes Supervising Physician Co-Signing Physician Notes Attending Attestation and Admission Note: Pt seen/examined, chart reviewed, care plan d/w resident physician Dustin Renteria MD. I agree with the eugene components of his admission documentation. Very pleasant 61yo AA female with chronic systolic CHF with EF <30% (nonischemic cardiomyopathy), permanent a.fib, h/o PE on xarelto, ICD/pacer, schizoaffective d/o, COPD, morbid obesity, T2DM - presents with significant dizziness with standing and doing activities starting this am upon awakening. This was associated with word-finding difficulties and anxiety. Of note - she was initiated on Jardiance in the last 2 weeks for her CHF. PMH/PSH/allergies/meds/sochx/famhx - reviewed VSS noted; tachycardic; afebrile gen - anxious but pleasant, no acute distress neck - unable to assess for JVD due to neck size mouth - MMM heart - irregularly irregular, tachy, s1 s2 lungs - decreased BS bases, CTA b/l otherwise abd - soft NT ND ext - trace edema b/l, pulses 2+ b/l labs reviewed EKG - rapid a.fib cxr - pulm edema A/P: 1. dizziness - check orthostatics. If orthostatic - due to recent Jardiance initiation? 2. possible acute/chronic systolic CHF - weights are confusing - initial weight was at least 8-9 pounds above dry weight of 260#; recheck was lower, closer to 260. Received both IV fluids AND diuretics in the ER. Will not give any additional diuretic or fluids tonight. Reassess volume status in am. Cont BB, etc. May need to hold entresto if BPs are low and/or orthostatics are +. 3. COPD - w/o exacerbation. 4. ICD/pacer - check interrogation. 5. word finding difficulties - CTA head/neck, MRI brain (latter only possible if ICD is MR-compatible). At time of my assessment her speech is fluent/clear. repeat labs am Torin Hardwick MD Resident Activity Tracking Resident Involvement: Resident Care Provided Care Provided: Adult Hospital Medicine (1) Atrial fibrillation Atrial fibrillation type: unspecified chronic Qualified Code(s): I48.20 - Chronic atrial fibrillation, unspecified (2) Schizoaffective disorder Schizoaffective disorder type: bipolar Qualified Code(s): F25.0 - Schizoaffective disorder, bipolar type (3) GERD (gastroesophageal reflux disease) Esophagitis presence: esophagitis presence not specified Qualified Code(s): K21.9 - Gastro-esophageal reflux disease without esophagitis (4) HTN (hypertension) Hypertension type: essential hypertension Qualified Code(s): I10 - Essential (primary) hypertension
[2022-01-05] MEDS ORDERED: VALSARTAN/SACUBITRIL 26/24MG TAB PO STA (19:58)
[2022-01-05] MEDS ORDERED: QUEtiapine FUMARATE 200 MG TAB PO STA (19:58)
[2022-01-05] MEDS ORDERED: traZODone HCL 100 MG TAB PO STA (19:58)
[2022-01-05] MEDS ORDERED: PHARMACIST DISCHARGE MED REC CONSULT PRN (22:41)
[2022-01-05] MEDS ORDERED: ONDANSETRON INJ 2 MG/ML 2 ML VIAL IV PRN (22:41)
[2022-01-05 23:03] LABS: Appearance Urine Clear (Clear); Bacteria Urine Automated Negative (Negative); Bilirubin Urine Negative (Negative); Blood Urine Negative (Negative); Color Urine Yellow; Epithelial Cell Urine Auto >30 /lpf (0-5); Glucose Urine UA 3+ (Negative); Ketones Urine Negative (Negative); Leukocyte Esterase Urine Trace (Negative); Nitrite Urine Negative (Negative); Protein Urine Negative (Negative); RBC Urine Automated 0-4 /hpf (0-4); Specific Gravity Urine 1.015 (1.000-1.030); Urobilinogen Urine Negative (Negative)
[2022-01-06] MEDS ORDERED: VALSARTAN/SACUBITRIL 26/24MG TAB PO SCH (09:00)
[2022-01-06] MEDS: ATORVASTATIN 10 MG TAB PO SCH (09:07)
[2022-01-06] MEDS: FUROSEMIDE 80 MG TAB PO SCH (09:08)
[2022-01-06] MEDS: PANTOprazole 40 MG TAB PO SCH (09:10)
[2022-01-06] MEDS: METOPROLOL SUCC 50MG EXT REL TAB PO SCH (09:10)
[2022-01-06] MEDS: POTASSIUM CHLORIDE CRTAB 20 MEQ TABCR PO SCH (09:11)
[2022-01-06] MEDS: UMECLIDINIUM/VILANTEROL 62.5/25MCG 7 PUFFS/INHALER INH SCH (09:11)
[2022-01-06] MEDS: QUEtiapine FUMARATE 100 MG TABLET PO SCH (09:11)
[2022-01-06] MEDS: PREGABALIN 150 MG CAP PO SCH ×2 (09:13→20:06)
[2022-01-06 09:25] LABS: Hematocrit (blood only) 35.8 % (34.1-44.9); Hemoglobin 11.2 g/dl (12.0-16.0); Mean Corpuscular Hemoglobin 26.4 pg (25.0-34.0); Mean Corpuscular Hgb Conc 31.3 g/dL (32.0-36.0); Mean Corpuscular Volume 84.4 fL (80.0-100.0); Mean Platelet Volume 9.6 fL (9.4-12.3); Platelet Count 269 K/uL (130-400); RDW Coefficient of Variation 16.2 % (11.5-14.5); RDW Standard Deviation 49.3 fL (36.4-46.3); Red Blood Count 4.24 M/uL (3.93-5.22); White Blood Count 7.72 K/ul (4.8-10.8)
[2022-01-06 09:50] LABS: BUN Creatinine Ratio 18.9 (10-20); Calcium 9.1 mg/dl (8.5-10.1); Chol HDL Ratio 3.3 (0-5); Creatinine Clr Calc Pharmacy 85.3 ml/min; Est GFR (African American) 75.5 ml/min; Est GFR (Non-African American) 65.1 ml/min; Magnesium 2.1 mg/dl (1.7-2.4); Potassium 3.7 mmol/L (3.5-5.1)
--- NOTE | 2022-01-06 12:50 | Hospitalist Progress Note ---
Date of Service January 06, 2022 Assessment & Plan (1) Dizziness: Plan: 2nd to orthostasis/low BP. weight today is about 261# - this is near her dry weight. hold Entresto for now. needs better a.fib rate control which will allow better fill time and better stroke volume. reassess with orthostatics in am. did recent addition of Jardiance contribute to her dizziness? 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 (2) Atrial fibrillation with RVR: Plan: Despite usual doses of metoprolol xl and digoxin (dig level wnl) she has HRs >100 at rest. 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 Remains on xarelto for anticoagulation. (3) Bipolar disorder: Plan: cont usual home meds (seroquel BID, trazodone) consider buspar for anxiety (4) Chronic systolic heart failure: Plan: compensated at this time cont BB holding Entresto for now due to #1 cont lasix patient's weight is at dry weight/baseline most recent echo EF 20-25% holding jardiance (5) COPD (chronic obstructive pulmonary disease): Plan: no exacerbation at this time cont usual home inhalers cont NC O2 2 L (6) Diabetes type 2, controlled: Plan: a1c <6.5% nicely controlled chronically BSGs ac/hs (7) GERD (gastroesophageal reflux disease): Plan: cont PPI (8) History of pulmonary embolism: Plan: xarelto (9) HTN (hypertension): Plan: now with hypotension see above (10) ICD (implantable cardioverter-defibrillator) in place: Plan: interrogation completed 3 brief runs of NSVT no discharges 3.9 years battery left (11) 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: Plan: 2020 2nd to staph aureus scar has underlying serous fluid at minimum patient concerned about appearance of this scar will ask Dr Lane ruth - to see while she is here (12) Nonischemic cardiomyopathy: Plan: EF 20-25% see above cont BB, lasix, etc holding entresto due to low BPs and dizziness jardiance on hold (13) Chronic respiratory failure with hypoxia: Plan: NC O2 2 L 2nd COPD (14) Morbid obesity: Plan: BMI about 40 Plan needs PT, OT Admission and Anticipated Discharge Date Admission Date: January 05, 2022 Subjective patient continues with dizziness/lightheadedness upon standing denies vertigo during orthostatic BP checks she did indeed become dizzy and the standing BP couldn't be obtained (she had to sit down) at rest she denies dizziness c/o "bumps" on her feet, hands, near the elbows these areas are pruritic she also expresses concerns about her scar over the left distal tibia region previously had extensive staph infection of this region requiring I/D by Dr Lane Sanchez in 2020 the area is intermittently swollen -- but not red or painful denies any dyspnea today denies any focal motor weakness tele - a.fib, rates 80s/90s while sleeping; while awake - mainly >100 patient states the only new med was Jardiance about 2 weeks ago (added for her CHF) Review of Systems Review of Systems: gen - no fevers; good appetite cv - no orthopnea pulm - no cough GI - no nausea or emesis psych - anxious Physical Exam Physical Exam: gen - obese, NAD, a little anxious neck - no obvious JVD mouth - MMM heart - tachy, irregularly irregular, s1 s2 lungs - no rales, no wheeze; CTA b/l abd - soft NT ND BS+ neuro - strength 5/5 x 4 exts; speech fluent/clear; no facial droop; no ataxia finger/nose/finger maneuver ext - no edema, pulses 2+ b/l skin - scar present over distal left orozco; beneath this scar there appears to be serous fluid; no inflammation/redness/tenderness present; hands, feet, antecubital region -- small noninflamed punctate papules - dyshydrotic eczema; minimal scale over these regions Results & Data Results & Data ([facility]) Vital Signs (Past 12 Hours) Vital Signs Temp Pulse Resp BP Pulse Ox O2 Del Method O2 Flow Rate 01/06/22 11:09 36.4 C L 108 H 18 104/73 98 Nasal Cannula 2 01/06/22 08:00 36.9 C 74 20 136/87 01/06/22 04:19 36.7 C 81 16 95/71 L 96 Nasal Cannula 2.0 Laboratory Results Laboratory Results - last 24 hr 01/05/22 01/05/22 01/05/22 11:46 13:09 17:13 WBC RBC Hgb Hct MCV MCH MCHC RDW Std Deviation RDW Coeff of [place] Plt Count MPV Sodium Potassium Chloride Carbon Dioxide Anion Gap BUN Creatinine Est Cr Clr Drug Dosing Est GFR ( Amer) Est GFR (Non-Af Amer) BUN/Creatinine Ratio Glucose Estimat Average Glucose Hemoglobin A1c Calcium Magnesium Ammonia Triglycerides Cholesterol LDL Cholesterol, Calc VLDL Cholesterol, Calc HDL Cholesterol Cholesterol/HDL Ratio TSH 1.204 Urine Color Yellow Urine Appearance Clear Urine pH 5.0 Ur Specific [place] 1.015 Urine Protein Negative Urine Glucose (UA) 3+ H Urine Ketones Negative Urine Blood Negative Urine Nitrite Negative Urine Bilirubin Negative Urine Urobilinogen Negative Ur Leukocyte Esterase Trace H Urine WBC (Auto) 1-5 Urine RBC (Auto) 0-4 U Hyaline Cast (Auto) 1-5 U Epithel Cells (Auto) >30 H Urine Bacteria (Auto) Negative Digoxin SARS-CoV-2, RNA, NAAT NEGATIVE 01/05/22 01/05/22 01/06/22 19:04 19:04 09:03 WBC 7.72 RBC 4.24 Hgb 11.2 L Hct 35.8 MCV 84.4 MCH 26.4 MCHC 31.3 L RDW Std Deviation 49.3 H RDW Coeff of [place] 16.2 H Plt Count 269 MPV 9.6 Sodium Potassium Chloride Carbon Dioxide Anion Gap BUN Creatinine Est Cr Clr Drug Dosing Est GFR ( Amer) Est GFR (Non-Af Amer) BUN/Creatinine Ratio Glucose Estimat Average Glucose Hemoglobin A1c Calcium Magnesium Ammonia 22.0 Triglycerides Cholesterol LDL Cholesterol, Calc VLDL Cholesterol, Calc HDL Cholesterol Cholesterol/HDL Ratio TSH Urine Color Urine Appearance Urine pH Ur Specific [place] Urine Protein Urine Glucose (UA) Urine Ketones Urine Blood Urine Nitrite Urine Bilirubin Urine Urobilinogen Ur Leukocyte Esterase Urine WBC (Auto) Urine RBC (Auto) U Hyaline Cast (Auto) U Epithel Cells (Auto) Urine Bacteria (Auto) Digoxin 0.8 SARS-CoV-2, RNA, NAAT 01/06/22 01/06/22 09:03 09:03 WBC RBC Hgb Hct MCV MCH MCHC RDW Std Deviation RDW Coeff of [place] Plt Count MPV Sodium 139 Potassium 3.7 Chloride 101 Carbon Dioxide 30 Anion Gap 8 BUN 18 Creatinine 0.95 Est Cr Clr Drug Dosing 85.3 Est GFR ( Amer) 75.5 Est GFR (Non-Af Amer) 65.1 BUN/Creatinine Ratio 18.9 Glucose 147 H Estimat Average Glucose Pending Hemoglobin A1c Pending Calcium 9.1 Magnesium 2.1 Ammonia Triglycerides 116 Cholesterol 137 LDL Cholesterol, Calc 73 VLDL Cholesterol, Calc 23 HDL Cholesterol 41 Cholesterol/HDL Ratio 3.3 TSH Urine Color Urine Appearance Urine pH Ur Specific [place] Urine Protein Urine Glucose (UA) Urine Ketones Urine Blood Urine Nitrite Urine Bilirubin Urine Urobilinogen Ur Leukocyte Esterase Urine WBC (Auto) Urine RBC (Auto) U Hyaline Cast (Auto) U Epithel Cells (Auto) Urine Bacteria (Auto) Digoxin SARS-CoV-2, RNA, NAAT PG Care Time/CCT Total # of Minutes Spent Total Time Spent with Patient: Total time spent is greater than 50% in coordination of care (as documented) at patient's floor/unit and/or counseling patient: Coding Level of Care Code 18805 Subseq Hosp Care Lvl 3 Diagnoses Dizziness R42 Atrial fibrillation with RVR I48.91 Bipolar disorder F31.9 Chronic systolic heart failure I50.22 COPD (chronic obstructive pulmonary disease) J44.9 Diabetes type 2, controlled E11.8 Diabetes mellitus jail insulin use: without jail use Diabetes mellitus complication status: with unspecified complications GERD (gastroesophageal reflux disease) K21.9 Esophagitis presence: esophagitis presence not specified History of pulmonary embolism Z86.711 HTN (hypertension) I10 Hypertension type: essential hypertension ICD (implantable cardioverter-defibrillator) in place Z95.810 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 T84.623A Nonischemic cardiomyopathy I42.8 Chronic respiratory failure with hypoxia J96.11 Morbid obesity E66.01 (1) Diabetes type 2, controlled 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
[2022-01-06 12:59] LABS: Estimated Average Glucose 137 mg/dl; Hemoglobin A1C 6.4 % (4.5-5.6)
[2022-01-06] MEDS: TRIAMCINOLONE ACET 0.1% CR 15 GM TUBE EXT SCH ×2 (13:24→20:06)
[2022-01-06] MEDS ORDERED: hydrOXYzine HCl 25 MG TAB PO STA (15:37)
[2022-01-06] MEDS ORDERED: traMADol HCL 50 MG TABLET PO STA (15:37)
[2022-01-06] MEDS: DIGOXIN 0.125 MG TAB PO SCH (15:57)
[2022-01-06] MEDS: RIVAROXABAN 20 MG TAB PO SCH (15:58)
[2022-01-06] MEDS ORDERED: OPTIRAY 320 125ml IV ONE (17:32)
--- NOTE | 2022-01-06 17:42 | CT Scan Report ---
CT OF THE HEAD WITHOUT CONTRAST CLINICAL HISTORY: ?TIA. Speech difficulty. COMPARISON STUDY: Head CT May 06, 2021. TECHNIQUE: Helical axial images of the head were obtained without IV contrast. Automated exposure con trol was utilized for the study. A dose lowering technique was utilized adhering to the principles o f ALARA. FINDINGS: No acute intracranial hemorrhage, midline shift or mass effect is present. The ventricular system is unremarkable. The basal cisterns are patent. No extra-axial collections are present. 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 There are no findings to suggest ac bautista dural sinus thrombosis or acute territorial infarct. No significant calvarial abnormalities are p resent. Visualized portions of the sinuses and mastoid air cells are clear. Left orbital floor repair is noted. IMPRESSION: No acute intracranial findings. ACT 112: Negative or not required by law. Electronically signed by: Gurmeet Zamora M.D. 01/06/2022 5:39 PM
--- NOTE | 2022-01-06 17:53 | CT Scan Report ---
HEAD & NECK CTA HISTORY: ?TIA; word-finding difficulties TECHNIQUE: Multiaxial CT images of the head were performed following the intravenous administration o f contrast to evaluate the major cerebral vessels. Multiaxial CT images of the neck were also perform ed following the intravenous administration of contrast to evaluate the major cervical vessels. Maxim um intensity projection images were also obtained. A dose lowering technique was utilized adhering to the principles of ALARA. COMPARISON: Noncontrast head CT 01/06/2022. FINDINGS: There is no mass, hematoma, midline shift, or acute infarct. Visualized intracranial internal carotid arteries, distal right vertebral, and basilar artery are widely patent. There is no significant sten osis, occlusion, or aneurysm seen within the bilateral ACAs, MCAs, or table filler. The major dural venous si nuses are patent. Severely hypoplastic distal left vertebral artery. The distal left vertebral artery at the level of the C1 level is not identified and likely occluded. However, there is distal reconst itution within the intradural segment. Therefore, this is consistent with an age-indeterminate occlus ion but likely chronic. Postoperative changes noted at the left orbital floor. The aortic arch and proximal great vessels are widely patent. There is no significant stenosis, occ lusion, or dissection identified within the bilateral common carotid, internal carotid, or right vert ebral arteries. IMPRESSION: 1. No significant stenosis, occlusion, or aneurysm within the [place]. 2. No significant stenosis, occlusion, or dissection identified within the carotid or right vertebral arteries. 3. Severely hypoplastic distal left vertebral artery. The distal left vertebral artery at the level o f the C1 level is not identified and likely occluded. However, there is distal reconstitution within the intradural segment. Therefore, this is consistent with an age-indeterminate occlusion but likely chronic. ACT 112: Negative or not required by law. Electronically signed by: Tyler Davis M.D. 01/06/2022 5:50 PM
--- NOTE | 2022-01-06 17:53 | CT Scan Report ---
HEAD & NECK CTA HISTORY: ?TIA; word-finding difficulties TECHNIQUE: Multiaxial CT images of the head were performed following the intravenous administration o f contrast to evaluate the major cerebral vessels. Multiaxial CT images of the neck were also perform ed following the intravenous administration of contrast to evaluate the major cervical vessels. Maxim um intensity projection images were also obtained. A dose lowering technique was utilized adhering to the principles of ALARA. COMPARISON: Noncontrast head CT 01/06/2022. FINDINGS: There is no mass, hematoma, midline shift, or acute infarct. Visualized intracranial internal carotid arteries, distal right vertebral, and basilar artery are widely patent. There is no significant sten osis, occlusion, or aneurysm seen within the bilateral ACAs, MCAs, or environmental services technician. The major dural venous si nuses are patent. Severely hypoplastic distal left vertebral artery. The distal left vertebral artery at the level of the C1 level is not identified and likely occluded. However, there is distal reconst itution within the intradural segment. Therefore, this is consistent with an age-indeterminate occlus ion but likely chronic. Postoperative changes noted at the left orbital floor. The aortic arch and proximal great vessels are widely patent. There is no significant stenosis, occ lusion, or dissection identified within the bilateral common carotid, internal carotid, or right vert ebral arteries. IMPRESSION: 1. No significant stenosis, occlusion, or aneurysm within the [place]. 2. No significant stenosis, occlusion, or dissection identified within the carotid or right vertebral arteries. 3. Severely hypoplastic distal left vertebral artery. The distal left vertebral artery at the level o f the C1 level is not identified and likely occluded. However, there is distal reconstitution within the intradural segment. Therefore, this is consistent with an age-indeterminate occlusion but likely chronic. ACT 112: Negative or not required by law. Electronically signed by: Tyler Davis M.D. 01/06/2022 5:50 PM
[2022-01-06] MEDS: QUEtiapine FUMARATE 200 MG TAB PO SCH (20:06)
[2022-01-06] MEDS ORDERED: traZODone HCL 100 MG TAB PO SCH (21:00)
[2022-01-06] MEDS: traZODone HCL 100 MG TAB PO SCH (21:05)
[2022-01-07 07:08] LABS: BUN Creatinine Ratio 16.7 (10-20); C Reactive Protein 2.52 mg/dl (0-0.5); Creatinine Clr Calc Pharmacy 96.3 ml/min; Est GFR (African American) 87.6 ml/min; Est GFR (Non-African American) 75.5 ml/min; Potassium 3.9 mmol/L (3.5-5.1)
[2022-01-07] MEDS: FUROSEMIDE 80 MG TAB PO SCH (09:36)
[2022-01-07] MEDS: QUEtiapine FUMARATE 100 MG TABLET PO SCH (09:36)
[2022-01-07] MEDS: METOPROLOL SUCC 50MG EXT REL TAB PO SCH (09:36)
[2022-01-07] MEDS: ATORVASTATIN 10 MG TAB PO SCH (09:36)
[2022-01-07] MEDS: PANTOprazole 40 MG TAB PO SCH (09:36)
[2022-01-07] MEDS: TRIAMCINOLONE ACET 0.1% CR 15 GM TUBE EXT SCH ×3 (09:37→19:44)
[2022-01-07] MEDS: UMECLIDINIUM/VILANTEROL 62.5/25MCG 7 PUFFS/INHALER INH SCH (09:37)
[2022-01-07] MEDS: PREGABALIN 150 MG CAP PO SCH ×2 (09:39→19:45)
[2022-01-07] MEDS: POTASSIUM CHLORIDE CRTAB 20 MEQ TABCR PO SCH (09:39)
[2022-01-07] MEDS: busPIRone 5 MG TAB PO SCH ×3 (16:50→19:45)
[2022-01-07] MEDS: DIGOXIN 0.125 MG TAB PO SCH (16:51)
[2022-01-07] MEDS: RIVAROXABAN 20 MG TAB PO SCH (16:51)
--- NOTE | 2022-01-07 18:31 | Cardiology Consultation ---
Date of Consultation January 07, 2022 Assessment & Plan (1) Dizziness: (2) Atrial fibrillation: (3) Nonischemic cardiomyopathy: (4) ICD (implantable cardioverter-defibrillator) in place: (5) Pericardial effusion: (6) Mitral regurgitation: Plan 1. Dizziness: She clearly had hypotension. The etiology is unclear, but possibly related to an element of volume depletion with initiation an SGLT 2 inhibitor. This would also account for the elevated heart rates despite continued medical therapy. She is known to have a pericardial effusion and any element of hypovolemia could also cause mild hypotension and tachycardia. Her symptoms are currently improved. Her blood pressure is improved. Heart rates are improving as well. Would agree with holding some of her medications currently including her Entresto. I will put a hold on her diuretic as well until we can evaluate her vital signs in the morning. 2. Cardiomyopathy: She is not appear decompensated. She is on aggressive medical regimen but continues to have severely reduced LV systolic function. Occasionally she has some dietary noncompliance. However, recently she seems to have done a good job of controlling her volume and watches her sodium intake by report. Her intracardiac monitoring also suggests the absence of hypovolemia or decompensation. 3. Atrial fibrillation: High ventricular rates at the time of admission. In general she has had good rate control. At 1 point we contemplated an AV node ab lation, but on medical therapy her heart rates improved. Think her current tachycardia is likely related to her hypovolemia and appears to be improving without any specific intervention. She has been maintained on Xarelto for systemic anticoagulation in this can be continued. 4. Mitral regurgitation: Noted to be severe on her last echocardiogram. Exploring options for treatment. Currently she does not appear to be interested in aggressive intervention. Treatment of the mitral valve disease may be difficult given her cardiomyopathy. 5. Normally functioning ICD. Some very brief episodes of nonsustained VT which were actually atrial fibrillation and associated high ventricular rates. I would continue her metoprolol and digoxin. I think we will hold her morning dose of furosemide for the time being. Can reinitiate some of her medications as her hemodynamics improved. In the absence of improvement re-evaluation of her pericardial effusion will be performed. History of Present Illness Reason for Consultation: Atrial fibrillation Requesting Physician: Ronen Attending Physician: Torin Hardwick History of Present Illness The patient is a 61-year-old woman with a long history of a nonischemic cardiomyopathy, COPD, permanent atrial fibrillation and prior implantation of a single-chamber ICD who was admitted to the hospital after an episode of severe dizziness and disorientation. The patient states that she had been her her usual state of health when yesterday morning after using the bathroom she became very dizzy and lightheaded. She did not describe this as presyncope. She is able to sit down but even with movement she felt quite dizzy. She felt somewhat disoriented as well. She felt like her speech was compromised although she did not report dysarthria. She was very anxious and took some anxiolytics. She contacted a neighbor and eventually called the outpatient clinic and was advised to go to the emergency room. Initial concern was some type of cerebrovascular accident. The patient was recently hospitalized for decompensated congestive heart failure due to dietary indiscretion. The time of her discharge she was started on Jardiance. She claims to be compliant with her medical therapy. She monitors her weight closely. She has been watching her diet more closely recently. She does have some difficulty sleeping at night. She does sleep somewhat upright but is primarily bothered by nightmares. She did not report worsening orthopnea recently. She claims to have a stable weight at home. No recent dietary gilmer scretion. At the time of her admission she was noted to have atrial fibrillation with a rapid ventricular rate. Her symptoms of dizziness have improved but she did have an element of dizziness when changing positions here in the hospital. She states that this happens at home as well. Generally speaking she waited approximately 30 seconds before ambulating after standing up. Allergies Allergy/AdvReac Type Severity Reaction Status Date / Time fentanyl Allergy Mild RASH,ITCHIN Verified 01/05/22 16:11 G Home Medications Medication Instructions Recorded Confirmed Type trazodone 100 mg tablet 200 mg PO HS 10/07/18 01/05/22 History metformin 500 mg tablet 500 mg PO BID #60 tabs 12/15/18 01/05/22 Rx quetiapine 100 mg tablet (Seroquel) 100 mg PO QAM 01/02/19 01/05/22 History Oxygen Home #1 ea 05/09/19 12/17/21 Rx docusate sodium 100 mg capsule 100 mg PO BID #180 caps 06/28/19 01/05/22 Rx (Colace) quetiapine 400 mg tablet (Seroquel) 400 mg PO HS 07/05/19 01/05/22 History Portable Oxygen #1 ea 07/29/20 12/17/21 Rx magnesium oxide 400 mg (241.3 mg 400 mg PO QAM 03/24/21 01/05/22 History magnesium) tablet potassium chloride 20 mEq 40 meq PO QAM 03/24/21 01/05/22 History tablet,extended release atorvastatin 10 mg tablet 10 mg PO QAM #90 tabs 04/21/21 01/05/22 Rx hydroxyzine HCl 50 mg tablet 50 mg PO QPM PRN Anxiety 05/06/21 01/05/22 History rivaroxaban 20 mg tablet (Xarelto) 20 mg PO QAM #90 tabs 05/19/21 01/05/22 Rx digoxin 125 mcg (0.125 mg) tablet 125 mcg PO QAM #90 tabs 06/16/21 01/05/22 Rx pregabalin 150 mg capsule 150 mg PO BID 30 days #60 caps 08/10/21 01/05/22 Rx Incentive Spirometer #1 ea 11/16/21 12/17/21 Rx diclofenac sodium 1 % topical gel 2 g topical QID PRN arthritis 12/10/21 01/05/22 History (Voltaren Arthritis Pain) empagliflozin 10 mg tablet 10 mg PO QAM 12/17/21 01/05/22 History (Jardiance) furosemide 40 mg tablet 80 mg PO QAM 12/17/21 01/05/22 History metoprolol succinate 100 mg 100 mg PO QAM 12/17/21 01/05/22 History tablet,extended release 24 hr omeprazole 20 mg capsule,delayed 20 mg PO QAM 12/17/21 01/05/22 History release tramadol 50 mg tablet 50 mg PO QAM PRN pain 12/17/21 01/05/22 History umeclidinium 62.5 mcg-vilanterol 1 inh inhalation QAM 12/17/21 01/05/22 History 25 mcg/actuation powdr for inhalation (Anoro Ellipta) sacubitril 24 mg-valsartan 26 mg 1 tab PO BID #60 tabs 12/25/21 01/05/22 Rx tablet (Entresto) Patient History Medical History (Updated 01/08/22 @ 05:55 by Torin Hardwick) KIRSTIN (acute kidney injury) pt unaware Asthma inhaler prn Atrial fibrillation on xarelto/metoprolol/digoxin--follows with Dr. 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 pt denies History of pulmonary embolism HTN (hypertension) 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 unsure type of i nfection Memory impairment Morbid obesity On anticoagulant therapy xarelto daily On home oxygen therapy 2L N/C at all times Pericardial effusion Peripheral neuropathy PTSD (post-traumatic stress disorder) Pulmonary embolism 2013 while living in [place] - currently on Xarelto Pulmonary hypertension Restrictive lung disease 2L NC O2 continuous Schizoaffective disorder Severe mitral regurgitation Small bowel obstruction hx of - resolved with NG suction Ventricular arrhythmia Vitamin D deficiency Surgical History AICD (automatic cardioverter/defibrillator) present ~2006 - [facility] - ICD - meditronic - Follows Dr. Pelayo History of cardiac cath x2?-- - no stents - ICD placed 2006 - follows Dr. Pelayo History of decompression of both ulnar nerves History of eye surgery left History of hernia surgery x2 History of incision and drainage (~09/30/20) left tibia History of open reduction and internal fixation (ORIF) procedure left tibia--hardware in place History of tooth extraction partial upper S/P ORIF (open reduction internal fixation) fracture ankle, left--hardware in place S/P tubal ligation Family History (Updated 01/05/22 @ 18:07 by Dustin Renteria MD) Mother , in her 70s Congestive heart failure (CHF) Breast cancer Lung cancer from this Father No problems noted. Grandmother (Paternal) Stroke Other Hypertension No family history of adverse response to anesthesia Ulcerative colitis Denies family history of Colon cancer Ovarian cancer Prostate cancer Myocardial infarction Social History Smoking Status: Former smoker Tobacco Type: Cigarettes Years Smoked: 30; Second Hand Exposure: No; Hx Alcohol Use: Yes Alcohol type: hard liquor Alcohol Intake Frequency Comment: weekends only Hx Substance Use: No Preferred Language: Kazakh Communication Ability: Effective Visual Impairment: No Limitations Hearing Ability: Normal Curriculum Assistant Required: No Beliefs That Will Affect Care: None marital status: marital status details: 5 kids Current Living Situation: Alone Current Living Situation Comment: pt has aide 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 No recent constitutional symptoms such as fevers or chills. Physical Exam Physical Exam: She is alert and oriented x3. Mood affect appear normal. She answered all questions appropriately. HEENT: Sclerae are anicteric. Pupils are equal and reactive to light and accommodation. Extraocular movements were intact. Neuro: Cranial nerves intact Lungs: Lungs are clear to auscultation bilaterally. There are no rales wheezes or rhonchi. She has normal respiratory effort without use of accessory muscles. There is normal pulmonary excursion. Cardiac: The rhythm was irregular. S1 and S2 were normal. There are no murmurs on examination. The PMI was not markedly displaced on palpation. Abdomen: Obese Extremities: Patient has bilateral radial pulses that are equal in intensity. There is no evidence cyanosis or clubbing. There was no evidence of significant peripheral edema bilaterally. Scar on the left anterior tibial area Skin: There are no rashes noted on examination today. Results & Data ([facility]) Vital Signs (Past 12 Hours) Vital Signs Temp Pulse Pulse Resp BP BP Pulse Ox 01/07/22 16:51 89 01/07/22 15:59 36.7 C 99 H 22 112/76 99 01/07/22 12:13 36.5 C 104 H 22 86/66 L 98 01/07/22 08:00 01/07/22 08:00 36.7 C 112 H 22 109/74 95 O2 Del Method O2 Flow Rate 01/07/22 16:51 01/07/22 15:59 Nasal Cannula 2 01/07/22 12:13 Nasal Cannula 2 01/07/22 08:00 Nasal Cannula 2 01/07/22 08:00 Nasal Cannula 2 Laboratory Results Abnormal Lab Results 01/07/22 01/07/22 05:50 05:50 ESR 62 H Sodium 140 Potassium 3.9 Chloride 101 Carbon Dioxide 33 H Anion Gap 6 BUN 14 Creatinine 0.84 Est Cr Clr Drug Dosing 96.3 Est GFR ( Amer) 87.6 Est GFR (Non-Af Amer) 75.5 BUN/Creatinine Ratio 16.7 Glucose 105 H Calcium 9.0 C-Reactive Protein 2.52 H Diagnostic Findings Chest x-ray obtained the time admission which revealed interstitial changes, cardiomegaly and small pleural effusions. Head CT and CTA demonstrated occlusion of left vertebral artery. Likely chronic. No other acute intracranial process. ECG Additional Comments: EKGs obtained the time admission revealed atrial fibrillation and rapid ventricular rate. Nonspecific ST and T-wave changes PG Care Time/CCT Total # of Minutes Spent Total Time Spent with Patient: Total time spent is greater than 50% in coordination of care (as documented) at patient's floor/unit and/or counseling patient: Coding Level of Care Code 42074 Inpt Consult Level 4 Diagnoses Dizziness R42 Atrial fibrillation I48.20 Atrial fibrillation type: unspecified chronic Nonischemic cardiomyopathy I42.8 ICD (implantable cardioverter-defibrillator) in place Z95.810 Pericardial effusion I31.3 Mitral regurgitation I34.0 (1) Atrial fibrillation Atrial fibrillation type: unspecified chronic Qualified Code(s): I48.20 - Chronic atrial fibrillation, unspecified
[2022-01-07] MEDS: traZODone HCL 100 MG TAB PO SCH (19:45)
[2022-01-07] MEDS: QUEtiapine FUMARATE 200 MG TAB PO SCH (19:46)
--- NOTE | 2022-01-07 20:22 | Hospitalist Progress Note ---
Date of Service January 07, 2022 Assessment & Plan (1) Dizziness: Plan: 2nd to orthostasis/low BP. cont to hold Entresto cont to hold Jardiance. concern that recent addition of Jardiance contributed to her dizziness and an element of intravascular volume depletion. no evidence of vertigo. CTA head/neck and CT head with old cerebellar lacune and mild vertebral artery disease but nothing high-grade and nothing acute. (2) Atrial fibrillation with RVR: Plan: Despite usual doses of metoprolol xl and digoxin (dig level wnl) she has HRs >100 at rest. Likely element of intravascular volume depletion. Appreciate Dr Pelayo's consultation from cardiology. Continue xarelto for anticoagulation. Continue metoprolol; continue digoxin. (3) Bipolar disorder: Plan: cont usual home meds (seroquel BID, trazodone) add buspar for anxiety (4) Chronic systolic heart failure: Plan: compensated at this time cont BB holding Entresto due to #1 patient's weight is at dry weight/baseline most recent echo EF 20-25% holding jardiance Dr Pelayo to skip her AM lasix tomorrow (5) COPD (chronic obstructive pulmonary disease): Plan: no exacerbation at this time cont usual home inhalers cont NC O2 2 L (6) Diabetes type 2, controlled: Plan: a1c <6.5% nicely controlled chronically BSGs ac/hs (7) GERD (gastroesophageal reflux disease): Plan: cont PPI (8) History of pulmonary embolism: Plan: xarelto (9) HTN (hypertension): Plan: now with hypotension see above (10) ICD (implantable cardioverter-defibrillator) in place: Plan: interrogation completed no significant dysrhythmia except a.fib device working appropriately no discharges 3.9 years battery left (11) 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: Plan: 2020 2nd to staph aureus scar has underlying serous fluid at minimum patient concerned about appearance of this scar formal consult placed to Dr Lane Snachez - orthopedics - who will see on Tuesday sed rate/crp noted (although sed rate is high at 60 it is 1/2 of what it was in 2020 when the left orozco was infected) (12) Nonischemic cardiomyopathy: Plan: EF 20-25% see above cont BB holding entresto due to low BPs and dizziness jardiance on hold Dr Pelayo to hold tomorrow AM's jossie as well (13) Chronic respiratory failure with hypoxia: Plan: NC O2 2 L 2nd COPD (14) Morbid obesity: Plan: BMI about 40 (15) Anxiety: Plan: add buspar 5mg TID she may benefit from psychiatry consult - will f/u with her about these issues tomorrow on rounds supportive therapy given Plan PT, OT Admission and Anticipated Discharge Date Admission Date: January 05, 2022 Subjective patient very tearful throughout the visit mentions her son lives in [place] but she has not seen him in over a year? also with a daughter but [place] and rarely sees her either she does have a sister as well as a cousin that live in [place] and they provide support to her she admits to feeling very anxious dizziness with standing MUCH better today than prior MONSALVE is at baseline no cp no orthopnea no change in left orozco overnight tele - a.fib, rates low 100s over the last 24 hours Review of Systems Review of Systems: gen - no fevers or chills cv - no chest pain pulm - no cough; baseline MONSALVE GI - no vomiting/nausea psych - tearful, depressed, anxious Physical Exam Physical Exam: gen - obese, NAD, tearful today neck - no obvious JVD mouth - MMM heart - tachy, irregularly irregular, s1 s2 lungs - no rales, no wheeze; CTA b/l abd - soft NT ND BS+ ext - no edema, pulses 2+ b/l skin - scar present over distal left orozco; beneath this scar there appears to be serous fluid; no inflammation/redness/tenderness present psych - a/o x 3, restricted affect, tearful Results & Data Results & Data ([facility]) Vital Signs (Past 12 Hours) Vital Signs Temp Pulse Pulse Resp BP Pulse Ox O2 Del Method 01/07/22 19:16 36.8 C 99 H 20 116/78 98 Nasal Cannula 01/07/22 16:51 89 01/07/22 15:59 36.7 C 99 H 22 112/76 99 Nasal Cannula 01/07/22 12:13 36.5 C 104 H 22 86/66 L 98 Nasal Cannula O2 Flow Rate 01/07/22 19:16 2.0 01/07/22 16:51 01/07/22 15:59 2 01/07/22 12:13 2 Laboratory Results Laboratory Results - last 24 hr 01/07/22 01/07/22 05:50 05:50 ESR 62 H Sodium 140 Potassium 3.9 Chloride 101 Carbon Dioxide 33 H Anion Gap 6 BUN 14 Creatinine 0.84 Est Cr Clr Drug Dosing 96.3 Est GFR ( Amer) 87.6 Est GFR (Non-Af Amer) 75.5 BUN/Creatinine Ratio 16.7 Glucose 105 H Calcium 9.0 C-Reactive Protein 2.52 H PG Care Time/CCT Total # of Minutes Spent Total Time Spent with Patient: Total time spent is greater than 50% in coordination of care (as documented) at patient's floor/unit and/or counseling patient: Coding Level of Care Code 62801 Subseq Hosp Care Lvl 3 Diagnoses Dizziness R42 Atrial fibrillation with RVR I48.91 Bipolar disorder F31.9 Chronic systolic heart failure I50.22 COPD (chronic obstructive pulmonary disease) J44.9 Diabetes type 2, controlled E11.8 Diabetes mellitus complication status: with unspecified complications Diabetes mellitus exterminator termite insulin use: without exterminator termite use GERD (gastroesophageal reflux disease) K21.9 Esophagitis presence: esophagitis presence not specified History of pulmonary embolism Z86.711 HTN (hypertension) I10 Hypertension type: essential hypertension ICD (implantable cardioverter-defibrillator) in place Z95.810 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 T84.623A Nonischemic cardiomyopathy I42.8 Chronic respiratory failure with hypoxia J96.11 Morbid obesity E66.01 Anxiety F41.9 (1) Diabetes type 2, controlled Diabetes mellitus complication status: with unspecified complications Diabetes mellitus exterminator termite insulin use: without exterminator termite use Qualified Code(s): E11.8 - Type 2 diabetes mellitus with unspecified complications (2) GERD (gastroesophageal reflux disease) Esophagitis presence: esophagitis presence not specified Qualified Code(s): K21.9 - Gastro-esophageal reflux disease without esophagitis (3) HTN (hypertension) Hypertension type: essential hypertension Qualified Code(s): I10 - Essential (primary) hypertension
[2022-01-08] MEDS ORDERED: COUGH DROP (SUGAR FREE) LOZ 24 LOZ/1 BOX BUCCAL PRN (00:12)
--- NOTE | 2022-01-08 07:45 | XRay Report ---
XR tibia fibula LT 2V CLINICAL HISTORY: History of TIb/Fib fracture COMPARISON: Left tibia and fibula radiographs August 12, 2020. Left ankle radiographs September 28, 2020. FINDINGS: Healed proximal diaphyseal fracture of the left fibula is noted. Alignment of the left kne e is anatomic. Plate and screw fixation of left tibial and fibular fractures is noted. Hardware is in tact. Fractures have healed. Soft tissue thickening overlying the mid shaft of the left tibia is note d. No acute fracture is identified. There is possible subchondral lucency within the lateral talar do me. IMPRESSION: 1. No acute fracture within the left tibia or fibula. 2. Status post internal fixation of left tibial and fibular fractures. Hardware intact. 3. Nonspecific soft tissue thickening overlying the midshaft of the left tibia. 4. Possible subchondral lucency within the lateral talar dome. ACT 112: Negative or not required by law. Electronically signed by: Gurmeet Zamora M.D. 01/08/2022 7:43 AM
[2022-01-08] MEDS: busPIRone 5 MG TAB PO SCH ×3 (08:31→20:26)
[2022-01-08] MEDS: QUEtiapine FUMARATE 100 MG TABLET PO SCH (08:31)
[2022-01-08] MEDS: METOPROLOL SUCC 50MG EXT REL TAB PO SCH (08:31)
[2022-01-08] MEDS: ATORVASTATIN 10 MG TAB PO SCH (08:32)
[2022-01-08] MEDS: PANTOprazole 40 MG TAB PO SCH (08:32)
[2022-01-08] MEDS: UMECLIDINIUM/VILANTEROL 62.5/25MCG 7 PUFFS/INHALER INH SCH (08:33)
[2022-01-08] MEDS: TRIAMCINOLONE ACET 0.1% CR 15 GM TUBE EXT SCH ×3 (08:34→20:27)
[2022-01-08] MEDS: PREGABALIN 150 MG CAP PO SCH ×2 (08:37→20:26)
[2022-01-08] MEDS: POTASSIUM CHLORIDE CRTAB 20 MEQ TABCR PO SCH (08:37)
[2022-01-08 09:01] LABS: Creatinine Clr Calc Pharmacy 98.1 ml/min; Est GFR (African American) 88.8 ml/min; Est GFR (Non-African American) 76.6 ml/min
[2022-01-08] MEDS ORDERED: SODIUM CHLORIDE 0.65% NA SOLN 45 ML (OCEAN) PRN (10:35)
[2022-01-08] MEDS ORDERED: FUROSEMIDE INJ 20 MG/2 ML VIAL IV ONE (14:45)
--- NOTE | 2022-01-08 14:46 | Cardiology Progress Note ---
Date of Service January 08, 2022 Assessment & Plan (1) Dizziness: (2) Atrial fibrillation: (3) Nonischemic cardiomyopathy: (4) ICD (implantable cardioverter-defibrillator) in place: (5) Pericardial effusion: (6) Mitral regurgitation: Plan 1. Dizziness: Likely related to hypovolemia. Possibly receive dated by initiation of Jardiance. Definitely improved. She reports feeling somewhat more dyspneic today. She is known to have an element of primary pulmonary disease as well. I think we will give her a half dose of her usual diuretic today and resume her oral diuretic tomorrow. 2. Cardiomyopathy: We can try to reinitiate her Entresto in usual diuretic dose tomorrow. 3. Atrial fibrillation: Suboptimal rate control. Overall improved. We will try a slightly higher dose of metoprolol tomorrow if her blood pressure allows. In the past we have entertained the possibility of an an AV node ablation. This was never performed as her rate control improved over time. However, we could entertain this possibility again if she does not tolerate higher doses of metoprolol. Continue digoxin and Xarelto. 4. Mitral regurgitation: Noted to be severe on her last echocardiogram. Exploring options for treatment. Currently she does not appear to be interested in aggressive intervention. Treatment of the mitral valve disease may be difficult given her cardiomyopathy. 5. Normally functioning ICD Will give her little diuretic today. I will order an increased dose of metoprolol for tomorrow morning. If her heart rates however around 100 that is probably adequate for discharge. We could adjust her medication did discuss alternatives in the outpatient setting. Hopefully her Entresto can be re- initiated tomorrow. I will be away from the hospital starting tomorrow morning. For any additional questions regarding her care please contact the on-call [facility] database operator or the Heart failure Service. Admission and Anticipated Discharge Date Admission Date: January 05, 2022 Subjective This afternoon the patient complained of feeling puffy. She feels like her breathing is somewhat worse than yesterday. She is also concerned about poor urine output and the dark color of her urine. She reports feeling better with respect to dizziness. She was able to get to the bedside commode and plans on getting up in a chair later today. She did not sleep well last night. Review of Systems Review of Systems: Per HPI Physical Exam Physical Exam: She is alert and oriented x3. Mood affect appear normal. She answered all questions appropriately. HEENT: Sclerae are anicteric. Pupils are equal and reactive to light and accommodation. Extraocular movements were intact. Neuro: Cranial nerves intact Lungs: Lungs are clear to auscultation bilaterally. There are no rales wheezes or rhonchi. She has normal respiratory effort without use of accessory muscles. Some reduced volumes. Cardiac: The rhythm was irregular. S1 and S2 were normal. There are no murmurs on examination. The PMI was not markedly displaced on palpation. Abdomen: Obese Extremities: Patient has bilateral radial pulses that are equal in intensity. There is no evidence cyanosis or clubbing. There was no evidence of significant peripheral edema bilaterally. Scar on the left anterior tibial area Skin: There are no rashes noted on examination today. Results & Data ([facility]) Vital Signs (Past 12 Hours) Vital Signs Temp Pulse Resp BP Pulse Ox O2 Del Method O2 Flow Rate 01/08/22 12:14 37.1 C 87 18 114/84 97 Nasal Cannula 2 01/08/22 11:21 Nasal Cannula 2 01/08/22 07:57 37.2 C 111 H 20 122/92 96 Nasal Cannula 2 01/08/22 03:34 36.6 C 101 H 24 95/74 L 98 Nasal Cannula 2 Laboratory Results Abnormal Lab Results 01/08/22 01/08/22 08:18 11:34 Creatinine 0.83 Est Cr Clr Drug Dosing 98.1 Est GFR ( Amer) 88.8 Est GFR (Non-Af Amer) 76.6 POC Glucose 127 H Diagnostic Findings Chest x-ray obtained the time admission which revealed interstitial changes, cardiomegaly and small pleural effusions. Head CT and CTA demonstrated occlusion of left vertebral artery. Likely ch ronic. No other acute intracranial process. ECG Additional Comments: EKGs obtained the time admission revealed atrial fibrillation and rapid ventricular rate. Nonspecific ST and T-wave changes PG Care Time/CCT Total # of Minutes Spent Total Time Spent with Patient: Total time spent is greater than 50% in coordination of care (as documented) at patient's floor/unit and/or counseling patient: Coding Level of Care Code 75980 Subseq Hosp Care Lvl 2 Diagnoses Dizziness R42 Atrial fibrillation I48.20 Atrial fibrillation type: unspecified chronic Nonischemic cardiomyopathy I42.8 ICD (implantable cardioverter-defibrillator) in place Z95.810 Pericardial effusion I31.3 Mitral regurgitation I34.0 (1) Atrial fibrillation Atrial fibrillation type: unspecified chronic Qualified Code(s): I48.20 - Ch ronic atrial fibrillation, unspecified
[2022-01-08] MEDS: RIVAROXABAN 20 MG TAB PO SCH (15:54)
[2022-01-08] MEDS: DIGOXIN 0.125 MG TAB PO SCH (15:54)
[2022-01-08] MEDS ORDERED: DOCUSATE SODIUM 100 MG CAP PO ONE (17:15)
[2022-01-08] MEDS: traMADol HCL 50 MG TABLET PO PRN (17:42)
--- NOTE | 2022-01-08 18:30 | Orthopedic Consultation ---
Date of Service January 08, 2022 Assessment & Plan (1) Left tibial fracture: Patient is a year and a half out from ORIF of a tibia fracture and 16 months out from I&D. There is no clinical signs of infection. Her sed rate and C-reactive protein are slightly elevated. Does appear that she is got a fluid collection and we tried to drain this today but there is no signs of any fluid in there. I did not get anything out. I suspect this is just muscle herniation from the fascia being disrupted in this part of her orozco. There is no clinical signs of the infection and the fact that we go no fluid suggests there is no further infection. I do not think this needs work-up any further. If you have any questions or concerns give me a call. She can weight-bear as tolerated. She needs no supportive devices on her leg. She needs to use a walker for other reasons. She does not require any orthopedic follow-up. Any orthopedic questions can directly [phone] History of Present Illness Reason for Consultation: . Concerns regarding of the left leg tibial fracture ORIF done a year and a half ago complicated by infection. Requesting Physician: . Attending Physician: Torin Hardwick . Patient is a 61-year-old black female with a host of multiple medical issues who was recently admitted with strokelike symptoms. She is well-known to me from open reduction internal fixation of her left tibia fracture treated a year and a half ago. 2 months postoperatively she developed an extensive methicillin- sensitive staph aureus infection. That she was treated with the irrigation debridement and antibiotics. She recovered remarkably well from this and is done well. She was transition to a boot and then do 10 boot and her fracture appeared to heal. She never did do much follow-up after that. This is the first time I seen her in about a year. She reports no complaints of pain with jose rafael left leg. She says she walks and uses a walker for other reasons not due to her leg. There is been no swelling or drainage. Allergies Allergy/AdvReac Type Severity Reaction Status Date / Time fentanyl Allergy Mild RASH,ITCHIN Verified 01/05/22 16:11 G Home Medications Medication Instructions Recorded Confirmed Type trazodone 100 mg tablet 200 mg PO HS 10/07/18 01/05/22 History metformin 500 mg tablet 500 mg PO BID #60 tabs 12/15/18 01/05/22 Rx quetiapine 100 mg tablet (Seroquel) 100 mg PO QAM 01/02/19 01/05/22 History Oxygen Home #1 ea 05/09/19 12/17/21 Rx docusate sodium 100 mg capsule 100 mg PO BID #180 caps 06/28/19 01/05/22 Rx (Colace) quetiapine 400 mg tablet (Seroquel) 400 mg PO HS 07/05/19 01/05/22 History Portable Oxygen #1 ea 07/29/20 12/17/21 Rx magnesium oxide 400 mg (241.3 mg 400 mg PO QAM 03/24/21 01/05/22 History magnesium) tablet potassium chloride 20 mEq 40 meq PO QAM 03/24/21 01/05/22 History tablet,extended release atorvastatin 10 mg tablet 10 mg PO QAM #90 tabs 04/21/21 01/05/22 Rx hydroxyzine HCl 50 mg tablet 50 mg PO QPM PRN Anxiety 05/06/21 01/05/22 History rivaroxaban 20 mg tablet (Xarelto) 20 mg PO QAM #90 tabs 05/19/21 01/05/22 Rx digoxin 125 mcg (0.125 mg) tablet 125 mcg PO QAM #90 tabs 06/16/21 01/05/22 Rx pregabalin 150 mg capsule 150 mg PO BID 30 days #60 caps 08/10/21 01/05/22 Rx Incentive Spirometer #1 ea 11/16/21 12/17/21 Rx diclofenac sodium 1 % topical gel 2 g topical QID PRN arthritis 12/10/21 01/05/22 History (Voltaren Arthritis Pain) empagliflozin 10 mg tablet 10 mg PO QAM 12/17/21 01/05/22 History (Jardiance) furosemide 40 mg tablet 80 mg PO QAM 12/17/21 01/05/22 History metoprolol succinate 100 mg 100 mg PO QAM 12/17/21 01/05/22 History tablet,extended release 24 hr omeprazole 20 mg capsule,delayed 20 mg PO QAM 12/17/21 01/05/22 History release tramadol 50 mg tablet 50 mg PO QAM PRN pain 12/17/21 01/05/22 History umeclidinium 62.5 mcg-vilanterol 1 inh inhalation QAM 12/17/21 01/05/22 History 25 mcg/actuation powdr for inhalation (Anoro Ellipta) sacubitril 24 mg-valsartan 26 mg 1 tab PO BID #60 tabs 12/25/21 01/05/22 Rx tablet (Entresto) Past Med/Surg History Medical History (Updated 01/08/22 @ 18:[address] Sanchez MD) KIRSTIN (acute kidney injury) pt unaware Asthma inhaler prn Atrial fibrillation on xarelto/metoprolol/digoxin--follows with Dr. 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 pt denies History of pulmonary embolism HTN (hypertension) 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 unsure type of i nfection Left tibial fracture Memory impairment Morbid obesity On anticoagulant therapy xarelto daily On home oxygen therapy 2L N/C at all times Pericardial effusion Peripheral neuropathy PTSD (post-traumatic stress disorder) Pulmonary embolism 2013 while living in [place] - currently on Xarelto Pulmonary hypertension Restrictive lung disease 2L NC O2 continuous Schizoaffective disorder Severe mitral regurgitation Small bowel obstruction hx of - resolved with NG suction Ventricular arrhythmia Vitamin D deficiency Surgical History AICD (automatic cardioverter/defibrillator) present ~2006 - [facility] - ICD - meditronic - Follows Dr. Pelayo History of cardiac cath x2?-- - no stents - ICD placed 2006 - follows Dr. Pelayo History of decompression of both ulnar nerves History of eye surgery left History of hernia surgery x2 History of incision and drainage (~09/30/20) left tibia History of open reduction and internal fixation (ORIF) procedure left tibia--hardware in place History of tooth extraction partial upper S/P ORIF (open reduction internal fixation) fracture ankle, left--hardware in place S/P tubal ligation Family History Mother , in her 70s Congestive heart failure (CHF) Breast cancer Lung cancer from this Father No problems noted. Grandmother (Paternal) Stroke Other Hypertension No family history of adverse response to anesthesia Ulcerative colitis Denies family history of Colon cancer Ovarian cancer Prostate cancer Myocardial infarction Social History Smoking Status: Former smoker Tobacco Type: Cigarettes Years Smoked: 30; Second Hand Exposure: No; Hx Alcohol Use: Yes Alcohol type: hard liquor Alcohol Intake Frequency Comment: weekends only Hx Substance Use: No Preferred Language: Portuguese Communication Ability: Effective Visual Impairment: No Limitations Hearing Ability: Normal Reel Cart Operator Required: No Beliefs That Will Affect Care: None marital status: marital status details: 5 kids Current Living Situation: Alone Current Living Situation Comment: pt has aide 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 Physical Exam . Physical examination left leg reveals her incision healed nicely. She does have a what looks to be soft tissue prominence about the from the mid aspect of her scar proximally for a distance of about 10 cm. It does appear there may be some fluid in the subcutaneous tissues. There is no redness or warmth. She got good knee and ankle motion. She is neurologically intact. No cellulitis. She is nontender to palpation. Results & Data Results & Data Laboratory Results . Diagnostic Findings . AP and lateral of the tib-fib were reviewed from today. She has a healed tibia fracture fixed with a plate and screws. There is no signs of bone destruction. No signs of osteomyelitis. The hardware is intact. Bone looks well-healed. PG Care Time/CCT Total # of Minutes Spent Total Time Spent with Patient: Total time spent is greater than 50% in coordination of care (as documented) at patient's floor/unit and/or counseling patient: Coding Level of Care Code 31633 Inpt Consult Level 3 Diagnoses Left tibial fracture S82.202A
[2022-01-08] MEDS: QUEtiapine FUMARATE 200 MG TAB PO SCH (20:27)
[2022-01-08] MEDS: traZODone HCL 100 MG TAB PO SCH (20:27)
--- NOTE | 2022-01-08 20:43 | Hospitalist Progress Note ---
Date of Service January 08, 2022 Assessment & Plan (1) Dizziness: Plan: resolved. 2nd to orthostasis/low BP. cont to hold Entresto cont to hold Jardiance. likely will not restart Jardiance at d/c. concern that recent addition of Jardiance contributed to her dizziness and an element of intravascular volume depletion. no evidence of vertigo. CTA head/neck and CT head with old cerebellar lacune and mild vertebral artery disease but nothing high-grade and nothing acute. (2) Atrial fibrillation with RVR: Plan: Despite usual doses of metoprolol xl and digoxin (dig level wnl) she has HRs >100 at rest. Likely element of intravascular volume depletion. Appreciate Dr Pelayo's consultation from cardiology. Continue xarelto for anticoagulation. Continue metoprolol; continue digoxin. Dr Pelayo may increase BB tomorrow if rates remain elevated. (3) Bipolar disorder: Plan: cont usual home meds (seroquel BID, trazodone) cont buspar for anxiety (4) Chronic systolic heart failure: Plan: decompensated today s/p IV lasix per Dr Pelayo cont BB holding Entresto due to #1 most recent echo EF 20-25% holding jardiance (5) COPD (chronic obstructive pulmonary disease): Plan: no exacerbation at this time cont usual home inhalers cont NC O2 2 L (6) Diabetes type 2, controlled: Plan: a1c <6.5% nicely controlled chronically BSGs ac/hs (7) GERD (gastroesophageal reflux disease): Plan: cont PPI (8) History of pulmonary embolism: Plan: xarelto (9) HTN (hypertension): Plan: controlled (10) ICD (implantable cardioverter-defibrillator) in place: Plan: interrogation completed no significant dysrhythmia except a.fib device working appropriately no discharges 3.9 years battery left (11) 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: Plan: 2020 2nd to staph aureus appreciated Dr Sanchez orthopedics consult sed rate/crp noted s/p attempt at aspiration of the scar over the left orozco - no fluid obtained Dr Sanchez gave reassurances to patient that scar is stable and without infection (12) Nonischemic cardiomyopathy: Plan: EF 20-25% see above cont BB holding entresto due to low BPs and dizziness jardiance on hold (13) Chronic respiratory failure with hypoxia: Plan: NC O2 2 L 2nd COPD (14) Morbid obesity: Plan: BMI about 40 (15) Anxiety: Plan: improved with addition of buspar 5mg TID Plan cont PT, OT Admission and Anticipated Discharge Date Admission Date: January 05, 2022 Subjective patient states she was dyspneic today and orthopneic Dr Pelayo ordered IV lasix has diuresed since then anxiety improved with buspar ortho saw patient for her left orozco scar from prior infection last year - I/D performed, no fluid aspirated denies new complaints dizziness fully resolved tele overnight - a.fib, rates low 100s Review of Systems Review of Systems: gen - eating well cv - no chest pain pulm - dyspnea but no cough GI - no nausea or emesis Physical Exam Physical Exam: gen - obese, modestly short of breath neck - difficult to assess JVD but neck veins appear flat mouth - MMM heart - tachy, irregularly irregular, s1 s2 lungs - mild rales bases abd - soft NT ND BS+ ext - no edema, pulses 2+ b/l skin - scar present over distal left orozco; beneath this scar there is a spongy feel to it; band-aid in place from prior aspiration; no erythema psych - a/o x 3 Results & Data Results & Data ([facility]) Vital Signs (Past 12 Hours) Vital Signs Temp Pulse Pulse Resp BP Pulse Ox O2 Del Method 01/08/22 19:09 37.1 C 120 H 20 95/72 L 94 Nasal Cannula 01/08/22 16:17 37.7 C H 115 H 18 114/74 94 Nasal Cannula 01/08/22 15:54 114 H 01/08/22 12:14 37.1 C 87 18 114/84 97 Nasal Cannula 01/08/22 11:21 Nasal Cannula O2 Flow Rate 01/08/22 19:09 2 01/08/22 16:17 2 01/08/22 15:54 01/08/22 12:14 2 01/08/22 11:21 2 Laboratory Results Laboratory Results - last 24 hr 01/08/22 01/08/22 08:18 11:34 Creatinine 0.83 Est Cr Clr Drug Dosing 98.1 Est GFR ( Amer) 88.8 Est GFR (Non-Af Amer) 76.6 POC Glucose 127 H PG Care Time/CCT Total # of Minutes Spent Total Time Spent with Patient: Total time spent is greater than 50% in coordination of care (as documented) at patient's floor/unit and/or counseling patient: Coding Level of Care Code 63355 Subseq Hosp Care Lvl 2 Diagnoses Dizziness R42 Atrial fibrillation with RVR I48.91 Bipolar disorder F31.9 Chronic systolic heart failure I50.22 COPD (chronic obstructive pulmonary disease) J44.9 Diabetes type 2, controlled E11.8 Diabetes mellitus complication status: with unspecified complications Diabetes mellitus termite helper insulin use: without care home use GERD (gastroesophageal reflux disease) K21.9 Esophagitis presence: esophagitis presence not specified History of pulmonary embolism Z86.711 HTN (hypertension) I10 Hypertension type: essential hypertension ICD (implantable cardioverter-defibrillator) in place Z95.810 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 T84.623A Nonischemic cardiomyopathy I42.8 Chronic respiratory failure with hypoxia J96.11 Morbid obesity E66.01 Anxiety F41.9 (1) Diabetes type 2, controlled Diabetes mellitus complication status: with unspecified complications Diabetes mellitus termite helper insulin use: without care home use Qualified Code(s): E11.8 - Type 2 diabetes mellitus with unspecified complications (2) GERD (gastroesophageal reflux disease) Esophagitis presence: esophagitis presence not specified Qualified Code(s): K21.9 - Gastro-esophageal reflux disease without esophagitis (3) HTN (hypertension) Hypertension type: essential hypertension Qualified Code(s): I10 - Essential (primary) hypertension
[2022-01-08] MEDS ORDERED: hydrOXYzine HCl 25 MG TAB PO PRN (20:45)
[2022-01-08] MEDS: hydrOXYzine HCl 25 MG TAB PO PRN (21:18)
[2022-01-09] MEDS: QUEtiapine FUMARATE 100 MG TABLET PO SCH (09:16)
[2022-01-09] MEDS: ATORVASTATIN 10 MG TAB PO SCH (09:16)
[2022-01-09] MEDS: PANTOprazole 40 MG TAB PO SCH (09:16)
[2022-01-09] MEDS: METOPROLOL SUCC 50MG EXT REL TAB PO SCH (09:16)
[2022-01-09] MEDS: UMECLIDINIUM/VILANTEROL 62.5/25MCG 7 PUFFS/INHALER INH SCH (09:17)
[2022-01-09] MEDS: FUROSEMIDE 80 MG TAB PO SCH (09:17)
[2022-01-09] MEDS: busPIRone 5 MG TAB PO SCH ×3 (09:17→20:44)
[2022-01-09] MEDS: DOCUSATE SODIUM 100 MG CAP PO SCH ×2 (09:17→20:44)
[2022-01-09] MEDS: TRIAMCINOLONE ACET 0.1% CR 15 GM TUBE EXT SCH ×3 (09:18→20:45)
[2022-01-09] MEDS: POTASSIUM CHLORIDE CRTAB 20 MEQ TABCR PO SCH (09:23)
[2022-01-09] MEDS: PREGABALIN 150 MG CAP PO SCH ×2 (09:23→20:44)
[2022-01-09 09:30] LABS: BUN Creatinine Ratio 16.3 (10-20); Calcium 9.6 mg/dl (8.5-10.1); Creatinine Clr Calc Pharmacy 82.7 ml/min; Est GFR (African American) 72.7 ml/min; Est GFR (Non-African American) 62.7 ml/min; Potassium 4.2 mmol/L (3.5-5.1)
[2022-01-09] MEDS: traMADol HCL 50 MG TABLET PO PRN ×2 (10:09→16:52)
[2022-01-09] MEDS: METOPROLOL SUCC 25MG EXT REL TAB PO SCH (11:55)
[2022-01-09] MEDS: RIVAROXABAN 20 MG TAB PO SCH (16:52)
[2022-01-09] MEDS: DIGOXIN 0.125 MG TAB PO SCH (16:52)
--- NOTE | 2022-01-09 18:55 | XRay Report ---
XR chest 2V PA/lateral HISTORY: right basilar rales, anorexia, fatigue; ?pneumonia COMPARISON: Chest 01/05/2022. FINDINGS: No pneumothorax. The cardiac silhouette remains markedly enlarged. There is a left-sided pa cemaker/defibrillator. Old, healed left-sided rib fractures again noted. Interval progression of the moderate pulmonary edema and small bilateral pleural effusions. Bibasilar densities persist. This fav ors atelectasis from the pleural effusions. A pneumonia could also have a similar appearance in the [facility]. IMPRESSION: 1. Interval progression of the moderate pulmonary edema. 2. Cardiomegaly, small bilateral pleural effusions, and bibasilar densities persist. ACT 112: Negative or not required by law. Electronically signed by: Tyler Davis M.D. 01/09/2022 6:54 PM
[2022-01-09] MEDS ORDERED: FUROSEMIDE 40 MG/4 ML VIAL IV ONE (19:45)
[2022-01-09 20:30] LABS: Basophils # (auto) 0.06 K/uL (0-0.2); Basophils % (auto) 0.4 %; Eosinophils # (auto) 0.09 K/uL (0-0.50); Eosinophils % (auto) 0.7 %; Hematocrit (blood only) 35.6 % (34.1-44.9); Hemoglobin 11.3 g/dl (12.0-16.0); Immature Granulocytes # (auto) 0.06 K/uL (0.00-0.02); Immature Granulocytes % (auto) 0.4 %; Lymphocytes # (auto) 2.72 K/uL (1.2-3.4); Lymphocytes % (auto) 19.7 %; Mean Corpuscular Hemoglobin 26.7 pg (25.0-34.0); Mean Corpuscular Hgb Conc 31.7 g/dL (32.0-36.0); Mean Platelet Volume 9.8 fL (9.4-12.3); Monocytes % (auto) 6.5 %; Neutrophils # (auto) 9.99 K/uL (1.4-6.5); Neutrophils % (auto) 72.3 %; Nucleated RBC # (auto) 0.08 K/uL (0-0); Nucleated RBC % (auto) 0.6 %; Platelet Count 293 K/uL (130-400); RDW Coefficient of Variation 16.5 % (11.5-14.5); RDW Standard Deviation 49.9 fL (36.4-46.3); Red Blood Count 4.24 M/uL (3.93-5.22); White Blood Count 13.82 K/ul (4.8-10.8)
[2022-01-09] MEDS: QUEtiapine FUMARATE 200 MG TAB PO SCH (20:44)
[2022-01-09] MEDS: traZODone HCL 100 MG TAB PO SCH (20:44)
[2022-01-09 20:48] LABS: C Reactive Protein 11.52 mg/dl (0-0.5)
[2022-01-09 20:55] LABS: Appearance Urine Cloudy (Clear); Bacteria Urine Automated 1+ (Negative); Blood Urine Trace (Negative); Color Urine Orange; Epithelial Cell Urine Auto >30 /lpf (0-5); Glucose Urine UA Negative (Negative); Ketones Urine Negative (Negative); Leukocyte Esterase Urine 1+ (Negative); Nitrite Urine Negative (Negative); Protein Urine 1+ (Negative); Specific Gravity Urine 1.019 (1.000-1.030); Urobilinogen Urine Negative (Negative)
[2022-01-09 21:08] LABS: Bilirubin Urine 1+ (Negative)
[2022-01-09 21:53] LABS: RBC Urine Automated 0-4 /hpf (0-4)
[2022-01-09] MEDS: cefTRIAXone SODIUM 2,000 MG in DEXTROSE 5% 50 ML IV SCH (22:29)
[2022-01-10] MEDS: traMADol HCL 50 MG TABLET PO PRN ×3 (04:20→21:24)
[2022-01-10 06:04] LABS: Hematocrit (blood only) 33.3 % (34.1-44.9); Hemoglobin 10.8 g/dl (12.0-16.0); Mean Corpuscular Hemoglobin 26.7 pg (25.0-34.0); Mean Corpuscular Hgb Conc 32.4 g/dL (32.0-36.0); Mean Corpuscular Volume 82.2 fL (80.0-100.0); Mean Platelet Volume 10.1 fL (9.4-12.3); Nucleated RBC # (auto) 0.05 K/uL (0-0); Nucleated RBC % (auto) 0.3 %; Platelet Count 276 K/uL (130-400); RDW Coefficient of Variation 16.1 % (11.5-14.5); Red Blood Count 4.05 M/uL (3.93-5.22); White Blood Count 15.03 K/ul (4.8-10.8)
[2022-01-10 06:26] LABS: BUN Creatinine Ratio 18.2 (10-20); Calcium 9.2 mg/dl (8.5-10.1); Creatinine Clr Calc Pharmacy 82.4 ml/min; Est GFR (African American) 71.8 ml/min; Est GFR (Non-African American) 61.9 ml/min
--- NOTE | 2022-01-10 08:40 | Hospitalist Progress Note ---
Date of Service January 09, 2022 Assessment & Plan (1) Dizziness: Plan: resolved. 2nd to orthostasis/low BP at time of admission. cont to hold Entresto cont to hold Jardiance. likely will not restart Jardiance at d/c. suspect recent addition of Jardiance contributed to her dizziness and an element of intravascular volume depletion. no evidence of vertigo. CTA head/neck and CT head with old cerebellar lacune and mild vertebral artery disease but nothing high-grade and nothing acute. (2) Atrial fibrillation with RVR: Plan: Despite usual doses of metoprolol xl and digoxin (dig level wnl) she has HRs >100 at rest. Metoprolol xl increased to 125mg daily. Continue digoxin. Appreciate cardiology consult/recs. (3) Chronic systolic heart failure: Plan: ACUTE/CHRONIC CHF remains decompensated t give additional lasix today - 40mg IV x 1 in addition to am oral dose cont BB holding Entresto due to #1 most recent echo EF 20-25% holding jardiance (4) Dysuria: Plan: patient may have a brewing UTI given her HPI complaints today send u/a and urine cx low threshold for antibiotics check a chest x-ray as well - r/o pneumonia (5) Bipolar disorder: Plan: cont seroquel BID, trazodone cont buspar for anxiety (6) COPD (chronic obstructive pulmonary disease): Plan: no exacerbation at this time cont usual home inhalers cont NC O2 2 L (7) Diabetes type 2, controlled: Plan: a1c <6.5% nicely controlled chronically BSGs ac/hs (8) GERD (gastroesophageal reflux disease): Plan: cont PPI (9) History of pulmonary embolism: Plan: xarelto (10) HTN (hypertension): Plan: controlled (11) ICD (implantable cardioverter-defibrillator) in place: Plan: interrogation completed no significant dysrhythmia except a.fib device working appropriately no discharges 3.9 years battery left (12) 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: Plan: 2020 2nd to staph aureus appreciate Dr Sanchez orthopedics consult s/p attempt at aspiration of the scar over the left orozco - no fluid obtained Dr Sanchez gave reassurances to patient that scar is stable and without infection (13) Nonischemic cardiomyopathy: Plan: EF 20-25% see above cont BB holding entresto jardiance on hold (14) Chronic respiratory failure with hypoxia: Plan: NC O2 2 L 2nd COPD (15) Morbid obesity: Plan: BMI about 40 (16) Anxiety: Plan: improved with addition of buspar 5mg TID Plan cont PT, OT as tolerated updated pt's sister by phone this evening Admission and Anticipated Discharge Date Admission Date: January 05, 2022 Subjective patient feels poorly today poor appetite, very tired, just wants to sleep has chronic low back pain - "giving me problems today", but no worse than baseline still quite short of breath with any activity mild cough no fevers or chills tele - rates still >100 most times of the day denies chest pain reports some mild "stinging" of her urine - started earlier today Review of Systems Review of Systems: gen - no fevers, no chills cv - no chest pain GI - no nausea/emesis - frequency, dysuria Physical Exam Physical Exam: gen - obese, modestly short of breath, sitting in chair by window, looks tired today neck - difficult to assess JVD but neck veins appear flat mouth - MMM heart - tachy, irregularly irregular, s1 s2 lungs - mild rales bases, worse on right abd - soft NT ND BS+ ext - no edema, pulses 2+ b/l skin - scar present over distal left orozco; beneath this scar there is a spongy feel to it; still no erythema psych - a/o x 3 Results & Data Results & Data ([facility]) Vital Signs (Past 12 Hours) Vital Signs Temp Pulse Pulse Resp BP Pulse Ox O2 Del Method 01/10/22 07:30 36.8 C 100 H 18 115/76 97 01/10/22 02:13 36.6 C 105 H 102/77 95 Nasal Cannula 01/10/22 00:00 106 H 01/09/22 23:24 109 H 30 H 96/56 L 93 Nasal Cannula O2 Flow Rate 01/10/22 07:30 01/10/22 02:13 2 01/10/22 00:00 01/09/22 23:24 2 Laboratory Results BMP wnl PG Care Time/CCT Total # of Minutes Spent Total Time Spent with Patient: Total time spent is greater than 50% in coordination of care (as documented) at patient's floor/unit and/or counseling patient: Coding Level of Care Code 69142 Subseq Hosp Care Lvl 3 Diagnoses Dizziness R42 Atrial fibrillation with RVR I48.91 Chronic systolic heart failure I50.22 Dysuria R30.0 Bipolar disorder F31.9 COPD (chronic obstructive pulmonary disease) J44.9 Diabetes type 2, controlled E11.8 Diabetes mellitus jail insulin use: without jail use Diabetes mellitus complication status: with unspecified complications GERD (gastroesophageal reflux disease) K21.9 Esophagitis presence: esophagitis presence not specified History of pulmonary embolism Z86.711 HTN (hypertension) I10 Hypertension type: essential hypertension ICD (implantable cardioverter-defibrillator) in place Z95.810 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 T84.623A Nonischemic cardiomyopathy I42.8 Chronic respiratory failure with hypoxia J96.11 Morbid obesity E66.01 Anxiety F41.9 (1) Diabetes type 2, controlled Diabetes mellitus jail insulin use: without intermediate frame tender use Diabetes mellitus complication status: with unspecified complications Qualified Code(s): E11.8 - Type 2 diabetes mellitus with unspecified complications (2) GERD (gastroesophageal reflux disease) Esophagitis presence: esophagitis presence not specified Qualified Code(s): K21.9 - Gastro-esophageal reflux disease without esophagitis (3) HTN (hypertension) Hypertension type: essential hypertension Qualified Code(s): I10 - Essential (primary) hypertension
[2022-01-10] MEDS ORDERED: FUROSEMIDE 40 MG/4 ML VIAL IV ONE ×2 (08:45→17:30)
[2022-01-10] MEDS: busPIRone 5 MG TAB PO SCH ×3 (09:06→21:26)
[2022-01-10] MEDS: METOPROLOL SUCC 25MG EXT REL TAB PO SCH (09:07)
[2022-01-10] MEDS: PANTOprazole 40 MG TAB PO SCH (09:07)
[2022-01-10] MEDS: TRIAMCINOLONE ACET 0.1% CR 15 GM TUBE EXT SCH ×3 (09:07→21:28)
[2022-01-10] MEDS: DOCUSATE SODIUM 100 MG CAP PO SCH ×2 (09:07→21:27)
[2022-01-10] MEDS: ATORVASTATIN 10 MG TAB PO SCH (09:07)
[2022-01-10] MEDS: QUEtiapine FUMARATE 100 MG TABLET PO SCH (09:07)
[2022-01-10] MEDS: METOPROLOL SUCC 50MG EXT REL TAB PO SCH (09:07)
[2022-01-10] MEDS: UMECLIDINIUM/VILANTEROL 62.5/25MCG 7 PUFFS/INHALER INH SCH (09:08)
[2022-01-10] MEDS: POTASSIUM CHLORIDE CRTAB 20 MEQ TABCR PO SCH (09:13)
[2022-01-10] MEDS: PREGABALIN 150 MG CAP PO SCH ×2 (09:15→21:25)
[2022-01-10] MEDS: DIGOXIN 0.125 MG TAB PO SCH (17:29)
[2022-01-10] MEDS: RIVAROXABAN 20 MG TAB PO SCH (17:30)
[2022-01-10] MEDS: ALBUTEROL HFA 8 GM INHALER INH SCH (19:42)
[2022-01-10] MEDS: IPRATROPIUM BROMIDE HFA INHALER INH SCH (19:43)
--- NOTE | 2022-01-10 20:57 | Hospitalist Progress Note ---
Date of Service January 10, 2022 Assessment & Plan (1) Dizziness: Plan: resolved. 2nd to orthostasis/low BP at time of admission. cont to hold Entresto cont to hold Jardiance. suspect recent addition of Jardiance contributed to her dizziness and an element of intravascular volume depletion - will not resume jardiance at d/c. no evidence of vertigo. CTA head/neck and CT head with old cerebellar lacune and mild vertebral artery disease but nothing high-grade and nothing acute. (2) Atrial fibrillation with RVR: Plan: Despite usual doses of metoprolol xl and digoxin (dig level wnl) she has HRs >100 at rest. Metoprolol xl increased to 125mg daily. Rates still fast even at 125mg. May need 150mg. Continue digoxin. Appreciate cardiology consult/recs. (3) Chronic systolic heart failure: Plan: ACUTE/CHRONIC CHF remains decompensated gave lasix IV this am and will redose this evening dry weight per records ~260 pounds daily weights fluid restrict 1500cc/day cont BB holding Entresto due to #1 holding jardiance most recent echo EF 20-25% (4) Dysuria: Plan: u/a suggestive of UTI urine cx pending cbc am cont rocephin (5) Bipolar disorder: Plan: cont seroquel BID, trazodone cont buspar for anxiety (6) COPD (chronic obstructive pulmonary disease): Plan: no exacerbation at this time cont usual home inhalers cont NC O2 2 L (7) Diabetes type 2, controlled: Plan: a1c <6.5% nicely controlled chronically BSGs ac/hs (8) GERD (gastroesophageal reflux disease): Plan: cont PPI (9) History of pulmonary embolism: Plan: xarelto (10) HTN (hypertension): Plan: controlled (11) ICD (implantable cardioverter-defibrillator) in place: Plan: interrogation completed no significant dysrhythmia except a.fib device working appropriately no discharges 3.9 years battery left (12) 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: Plan: 2020 2nd to staph aureus appreciate Dr Sanchez orthopedics consult s/p attempt at aspiration of the scar over the left orozco - no fluid obtained Dr Sanchez gave reassurances to patient that scar is stable and without infection (13) Nonischemic cardiomyopathy: Plan: EF 20-25% see above cont BB; adjusting such for improved a.fib rate control holding entresto jardiance on hold (14) Chronic respiratory failure with hypoxia: Plan: NC O2 2 L 2nd COPD stable (15) Morbid obesity: Plan: BMI about 40 (16) Anxiety: Plan: improved with addition of buspar 5mg TID Plan cont PT, OT as tolerated updated pt's sister by phone yesterday evening Admission and Anticipated Discharge Date Admission Date: January 05, 2022 Subjective patient feeling some better today - not as short of breath at rest or w/ ex ertion weight still above dry weight eating a little more today back pain at baseline some mild dysuria still no chest pain no dizziness tele - a.fib rates still 100-120 fairly consistently Review of Systems Review of Systems: gen - no fever cv - mild orthopnea present; no edema pulm - no cough GI - no nausea/emesis Physical Exam Physical Exam: gen - obese, sitting in chair by window, looks a little better today neck - difficult to assess JVD mouth - MMM heart - tachy, irregularly irregular, s1 s2 lungs - decreased BS bases, no obvious rales/wheeze; no increased work of breathing abd - soft NT ND BS+ ext - no edema, pulses 2+ b/l skin - scar present over distal left orozco - unchanged psych - a/o x 3, not as anxious Results & Data Results & Data ([facility]) Vital Signs (Past 12 Hours) Vital Signs Temp Pulse Pulse Resp BP Pulse Ox O2 Del Method 01/10/22 20:55 36.5 C 109 H 20 126/61 95 Nasal Cannula 01/10/22 20:02 Nasal Cannula 01/10/22 19:43 106 H 20 95 Nasal Cannula 01/10/22 16:00 36.8 C 97 H 20 147/75 H 97 01/10/22 17:29 112 H 01/10/22 15:00 36.8 C 80 20 133/65 01/10/22 11:30 36.8 C 89 18 129/61 97 O2 Flow Rate 01/10/22 20:55 2 01/10/22 20:02 2 01/10/22 19:43 3 01/10/22 16:00 01/10/22 17:29 01/10/22 15:00 01/10/22 11:30 Laboratory Results Laboratory Results - last 24 hr 01/09/22 01/09/22 01/10/22 20:15 20:30 05:16 WBC 15.03 H RBC 4.05 Hgb 10.8 L Hct 33.3 L MCV 82.2 MCH 26.7 MCHC 32.4 RDW Std Deviation 48.0 H RDW Coeff of [place] 16.1 H Plt Count 276 MPV 10.1 Absolute Nucleated RBC 0.05 H Nucleated RBC % (auto) 0.3 Sodium Potassium Chloride Carbon Dioxide Anion Gap BUN Creatinine Est Cr Clr Drug Dosing Est GFR ( Amer) Est GFR (Non-Af Amer) BUN/Creatinine Ratio Glucose Calcium Procalcitonin 0.09 Urine Color [place] Urine Appearance Cloudy A Urine pH 5.0 Ur Specific [place] 1.019 Urine Protein 1+ H Urine Glucose (UA) Negative Urine Ketones Negative Urine Blood Trace H Urine Nitrite Negative Urine Bilirubin 1+ H Urine Urobilinogen Negative Ur Leukocyte Esterase 1+ H Urine WBC (Auto) 10-30 H Urine RBC (Auto) 0-4 U Hyaline Cast (Auto) 5-10 H U Epithel Cells (Auto) >30 H Urine Bacteria (Auto) 1+ H 01/10/22 05:16 WBC RBC Hgb Hct MCV MCH MCHC RDW Std Deviation RDW Coeff of [place] Plt Count MPV Absolute Nucleated RBC Nucleated RBC % (auto) Sodium 135 L Potassium 4.0 Chloride 99 Carbon Dioxide 28 Anion Gap 8 BUN 18 Creatinine 0.99 Est Cr Clr Drug Dosing 82.4 Est GFR ( Amer) 71.8 Est GFR (Non-Af Amer) 61.9 BUN/Creatinine Ratio 18.2 Glucose 107 H Calcium 9.2 Procalcitonin Urine Color Urine Appearance Urine pH Ur Specific [place] Urine Protein Urine Glucose (UA) Urine Ketones Urine Blood Urine Nitrite Urine Bilirubin Urine Urobilinogen Ur Leukocyte Esterase Urine WBC (Auto) Urine RBC (Auto) U Hyaline Cast (Auto) U Epithel Cells (Auto) Urine Bacteria (Auto) PG Care Time/CCT Total # of Minutes Spent Total Time Spent with Patient: Total time spent is greater than 50% in coordination of care (as documented) at patient's floor/unit and/or counseling patient: Coding Level of Care Code 46774 Subseq Hosp Care Lvl 3 Diagnoses Dizziness R42 Atrial fibrillation with RVR I48.91 Chronic systolic heart failure I50.22 Dysuria R30.0 Bipolar disorder F31.9 COPD (chronic obstructive pulmonary disease) J44.9 Diabetes type 2, controlled E11.8 Diabetes mellitus complication status: with unspecified complications Diabetes mellitus penitentiary insulin use: without parts counterman use GERD (gastroesophageal reflux disease) K21.9 Esophagitis presence: esophagitis presence not specified History of pulmonary embolism Z86.711 HTN (hypertension) I10 Hypertension type: essential hypertension ICD (implantable cardioverter-defibrillator) in place Z95.810 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 T84.623A Nonischemic cardiomyopathy I42.8 Chronic respiratory failure with hypoxia J96.11 Morbid obesity E66.01 Anxiety F41.9 (1) Diabetes type 2, controlled Diabetes mellitus complication status: with unspecified complications Diabetes mellitus parts counterman insulin use: without parts counterman use Qualified Code(s): E11.8 - Type 2 diabetes mellitus with unspecified complications (2) GERD (gastroesophageal reflux disease) Esophagitis presence: esophagitis presence not specified Qualified Code(s): K21.9 - Gastro-esophageal reflux disease without esophagitis (3) HTN (hypertension) Hypertension type: essential hypertension Qualified Code(s): I10 - Essential (primary) hypertension
[2022-01-10] MEDS ORDERED: IPRATROPIUM BROMIDE/ALBUTEROL respimat INH INH SCH (21:00)
[2022-01-10] MEDS: cefTRIAXone SODIUM 2,000 MG in DEXTROSE 5% 50 ML IV SCH (21:25)
[2022-01-10] MEDS: traZODone HCL 100 MG TAB PO SCH (21:26)
[2022-01-10] MEDS: QUEtiapine FUMARATE 200 MG TAB PO SCH (21:27)
[2022-01-11 06:41] LABS: Hematocrit (blood only) 32.1 % (34.1-44.9); Hemoglobin 10.1 g/dl (12.0-16.0); Mean Corpuscular Hemoglobin 26.4 pg (25.0-34.0); Mean Corpuscular Hgb Conc 31.5 g/dL (32.0-36.0); Mean Platelet Volume 10.3 fL (9.4-12.3); Nucleated RBC # (auto) 0.12 K/uL (0-0); Platelet Count 270 K/uL (130-400); RDW Coefficient of Variation 16.2 % (11.5-14.5); RDW Standard Deviation 49.4 fL (36.4-46.3); Red Blood Count 3.82 M/uL (3.93-5.22); White Blood Count 12.12 K/ul (4.8-10.8)
[2022-01-11] MEDS: METOPROLOL SUCC 50MG EXT REL TAB PO SCH (07:14)
[2022-01-11] MEDS: METOPROLOL SUCC 25MG EXT REL TAB PO SCH (07:14)
[2022-01-11] MEDS: ALBUTEROL HFA 8 GM INHALER INH SCH ×4 (07:25→19:38)
[2022-01-11] MEDS: IPRATROPIUM BROMIDE HFA INHALER INH SCH ×4 (07:25→19:38)
[2022-01-11 07:55] LABS: BUN Creatinine Ratio 21.2 (10-20); Blood Urea Nitrogen 21 mg/dl (6-23); Calcium 9.1 mg/dl (8.5-10.1); Carbon Dioxide 29 mmol/L (21-32); Chloride 97 mmol/L (98-107); Creatinine Clr Calc Pharmacy 82.2 ml/min; Est GFR (African American) 71.8 ml/min; Est GFR (Non-African American) 61.9 ml/min; Glucose 103 mg/dl (70-99(Fasting))
[2022-01-11] MEDS: ATORVASTATIN 10 MG TAB PO SCH (08:50)
[2022-01-11] MEDS: DOCUSATE SODIUM 100 MG CAP PO SCH ×2 (08:50→20:00)
[2022-01-11] MEDS: PANTOprazole 40 MG TAB PO SCH (08:50)
[2022-01-11] MEDS: busPIRone 5 MG TAB PO SCH ×3 (08:50→20:00)
[2022-01-11] MEDS: TRIAMCINOLONE ACET 0.1% CR 15 GM TUBE EXT SCH ×3 (08:51→20:01)
[2022-01-11] MEDS: QUEtiapine FUMARATE 100 MG TABLET PO SCH (08:51)
[2022-01-11] MEDS: UMECLIDINIUM/VILANTEROL 62.5/25MCG 7 PUFFS/INHALER INH SCH (08:52)
[2022-01-11] MEDS: PREGABALIN 150 MG CAP PO SCH ×2 (08:55→20:00)
[2022-01-11] MEDS: POTASSIUM CHLORIDE CRTAB 20 MEQ TABCR PO SCH (08:55)
[2022-01-11] MEDS: traMADol HCL 50 MG TABLET PO PRN (12:31)
[2022-01-11] MEDS ORDERED: FUROSEMIDE 40 MG/4 ML VIAL IV ONE (14:41)
[2022-01-11] MEDS: DIGOXIN 0.125 MG TAB PO SCH (15:59)
[2022-01-11] MEDS: RIVAROXABAN 20 MG TAB PO SCH (15:59)
--- NOTE | 2022-01-11 18:35 | Cardiology Progress Note ---
Date of Service January 11, 2022 Assessment & Plan (1) Nonischemic cardiomyopathy: (2) ICD (implantable cardioverter-defibrillator) in place: (3) Atrial fibrillation, permanent: (4) Anticoagulant long-term use: (5) Ventricular tachycardia: (6) Mitral regurgitation: (7) Pericardial effusion: (8) Chronic systolic heart failure: Plan ASSESSMENT/PLAN: 1. Atrial fibrillation: Permanent. Heart rate not well controlled. Heart rate improved last hospital stay in December while receiving metoprolol. While receiving a here, she remained somewhat tachycardic but more so today after metoprolol was held due to hypotension. Will give metoprolol tartrate 25 mg p.o. q.6 hours overnight and then tomorrow reduced the holding parameter systolic blood pressure to < 90 mmHg. Continue digoxin. There has been some discussion of consideration for AV jennifer ablation in the future if heart rates not well controlled. Have asked Dr. Christensen of electrophysiology to evaluate her tomorrow in regards to her heart rate. Continue anticoagulation for stroke risk reduction. 2. Chronic HF with reduced EF: More short of breath compared to when she was discharged in December of 2021. Exam is difficult. She received Lasix 80 mg IV x1 today. Reassess tomorrow. Entresto has been held due to hypotension but hopefully can be resumed at some point. Continue metoprolol succinate, digoxin. She has not tolerated spironolactone due to hypotension. She has not tolerated SG LT 2 inhibitor. She is nearly at her considered dry weight. Low-sodium diet, less than 2000 mg daily. Monitor I&Os. Monitor renal function and electrolytes and replete as appropriate. 3. Nonischemic cardiomyopathy: Severely reduced LV systolic function. ICD in place and managed by Dr. Pelayo. Continue heart failure medications as above. 4. Ventricular tachycardia: This has been noted in the past on ICD in terrogation in the outpatient setting. Continue beta-julee. 5. Mitral regurgitation: Severe mitral regurgitation. She has had severe mitral regurgitation noted in the past as well. With her comorbidities and reduced EF, she may not be a candidate for surgical mitral valve correction. She has not been interested in pursuing more aggressive measures. 6. Pericardial effusion: Chronic issue and appeared stable on most recent echo. 7. Alcohol abuse: Offered encouragement. She believes that loneliness drove her to consume more alcohol. Consider counseling or any available services. W ill defer to primary hospitalist service. 8. Disposition: Cardiology will continue to follow. Follow with Dr. Pelayo upon discharge. Continue to follow with heart failure program. Plan of care co mmunicated with Dr. Carballo of the primary hospitalist service. Patient care communicated with Dr. Christensen of electrophysiology. He plans on evaluating her tomorrow. Admission and Anticipated Discharge Date Admission Date: January 05, 2022 Subjective Was asked to see Ms. Carson today due to ongoing shortness of breath and AFib with RVR. She states that she still feels short of breath, including orthopnea. She was sitting in a chair this afternoon during our visit and felt fine sitting in a chair. She denies chest pain. She had an episode of nausea with vomiting today after drinking some fluids. She denies syncope or worsening edema. She denies bleeding. She did admit that she has been drinking more vodka in the week or so leading up to this hospital visit. She was drinking greater than 1 L of vodka per week. She believes that she turned alcohol again due to loneliness and other issues. She was alone in her hospital room. Physical Exam Physical Exam: Gen.: No acute distress. Alert and oriented. HEENT: Anicteric sclera. Neck: Thick neck. Cardiac: No ventricular heave. Irregularly irregular and tachycardic. Normal S1- S2. No murmurs, rubs, or gallops. Pulmonary: Decreased breath sounds bilaterally, but otherwise clear to auscultation bilaterally without wheezes, rales, or rhonchi. Abdomen: Soft, nontender, nondistended, with normoactive bowel sounds. No bruits noted. Extremities: 2+ radial pulses bilaterally. 2+ posterior tibialis pulses bilaterally. Trace bilateral lower extremity edema. No cyanosis. Psychiatric: Affect appears appropriate. Results & Data ([facility]) Vital Signs (Past 12 Hours) Vital Signs Temp Pulse Pulse Resp BP BP Pulse Ox 01/11/22 16:42 117 H 01/11/22 16:00 36.5 C 115 H 20 101/52 L 97 01/11/22 15:59 110 H 01/11/22 12:08 36.5 C 106 H 18 96/64 L 91 01/11/22 11:56 102 H 01/11/22 11:21 96 H 18 93 01/11/22 10:05 01/11/22 07:26 96 H 18 95 01/11/22 07:05 36.8 C 95 H 20 87/61 L 95 O2 Del Method O2 Flow Rate 01/11/22 16:42 01/11/22 16:00 01/11/22 15:59 01/11/22 12:08 Room Air 01/11/22 11:56 01/11/22 11:21 Nasal Cannula 2 01/11/22 10:05 Nasal Cannula 2 01/11/22 07:26 Nasal Cannula 2 01/11/22 07:05 Nasal Cannula 2 Intake & Output 01/09/22 01/10/22 01/11/22 01/12/22 06:59 06:59 06:59 06:59 Intake Total 840 / 840 270 / 270 720 / 720 Output Total 550 / 550 1500 / 1500 Balance 840 / 840 -280 / -280 -780 / -780 Weight 261 lb 14.546 oz 264 lb 12.403 oz 263 lb 7.238 oz 263 lb 14.293 oz Laboratory Results Laboratory Results - last 24 hr 01/11/22 01/11/22 01/11/22 06:12 06:12 08:13 WBC 12.12 H RBC 3.82 L Hgb 10.1 L Hct 32.1 L MCV 84.0 MCH 26.4 MCHC 31.5 L RDW Std Deviation 49.4 H RDW Coeff of [place] 16.2 H Plt Count 270 MPV 10.3 Absolute Nucleated RBC 0.12 H Nucleated RBC % (auto) 1.0 Sodium TNP 136 Potassium TNP 4.0 Chloride 97 L Carbon Dioxide 29 Anion Gap TNP BUN 21 Creatinine 0.99 Est Cr Clr Drug Dosing 82.2 Est GFR ( Amer) 71.8 Est GFR (Non-Af Amer) 61.9 BUN/Creatinine Ratio 21.2 H Glucose 103 H Calcium 9.1 Diagnostic Findings Telemetry personally reviewed: AFib with RVR. Heart rates have been mostly elevated but faster today than yesterday based on the trend on telemetry. Medications Administered Current Inpatient Medications Albuterol (Albuterol Hfa 8 Gm Inhaler) 1 puffs INH QIDR VICTOR M Stop: 02/09/22 18:59 Last Admin: 01/11/22 14:35 Dose: Not Given Amoxicillin (Amoxicillin 500 Mg Cap) 500 mg PO TID [facility] Stop: 01/16/22 20:59 Atorvastatin Calcium (Atorvastatin 10 Mg Tab) 10 mg PO [facility] Stop: 02/05/22 08:59 Last Admin: 01/11/22 08:50 Dose: 10 mg Buspirone HCl (Buspirone 5 Mg Tab) 5 mg PO TID [facility] Stop: 02/06/22 15:54 Last Admin: 01/11/22 13:16 Dose: 5 mg Digoxin (Digoxin 0.125 Mg Tab) 0.125 mg PO DAILY@1600 [facility] Stop: 02/05/22 15:59 Last Admin: 01/11/22 15:59 Dose: 0.125 mg Docusate Sodium (Docusate Sodium 100 Mg Cap) 100 mg PO BID [facility] Stop: 02/08/22 08:59 Last Admin: 01/11/22 08:50 Dose: 100 mg Furosemide (Furosemide 80 Mg Tab) 80 mg PO [facility] Stop: 02/05/22 08:59 Last Admin: 01/09/22 09:17 Dose: 80 mg Hydroxyzine HCl (Hydroxyzine Hcl 25 Mg Tab) 50 mg PO QPM PRN PRN Reason: Anxiety Stop: 02/07/22 20:44 Last Admin: 01/08/22 21:18 Dose: 50 mg Ipratropium [place] (Ipratropium [place] Hfa Inhaler) 1 puffs INH QIDR [facility] Stop: 02/09/22 18:59 Last Admin: 01/11/22 14:35 Dose: Not Given Menthol (Cough Drop (Sugar Free) Hai 24 Hai/1 Box) 1 hai BUCCAL NOW PRN PRN Reason: Sore Throat Stop: 02/07/22 00:11 Last Admin: 01/08/22 00:22 Dose: 1 hai Metoprolol Succinate (Metoprolol Succ 50mg Ext Rel Tab) 100 mg PO [facility] Stop: 02/05/22 08:59 Last Admin: 01/11/22 07:14 Dose: Not Given Metoprolol Succinate (Metoprolol Succ 25mg Ext Rel Tab) 25 mg PO [facility] Stop: 02/08/22 10:59 Last Admin: 01/11/22 07:14 Dose: Not Given Miscellaneous Information (Pharmacist Discharge Med Rec Consult) 1 each N/A UD PRN PRN Reason: Consult Stop: 02/04/22 22:40 Ondansetron HCl (Ondansetron Inj 2 Mg/Ml 2 Ml Vial) 4 mg IV Q6H PRN PRN Reason: Nausea Stop: 02/04/22 22:40 Pantoprazole Sodium (Pantoprazole 40 Mg Tab) 40 mg PO QAM [facility] Stop: 02/05/22 08:59 Last Admin: 01/11/22 08:50 Dose: 40 mg Potassium Chloride (Potassium Chloride Crtab 20 Meq Tabcr) 40 meq PO QAM [facility] Stop: 02/05/22 08:59 Last Admin: 01/11/22 08:55 Dose: 40 meq Pregabalin (Pregabalin 150 Mg Cap) 150 mg PO BID [facility] Stop: 02/05/22 08:59 Last Admin: 01/11/22 08:55 Dose: 150 mg Quetiapine Fumarate (Quetiapine Fumarate 200 Mg Tab) 200 mg PO [facility] Stop: 02/05/22 20:59 Last Admin: 01/10/22 21:27 Dose: 200 mg Quetiapine Fumarate (Quetiapine Fumarate 100 Mg Tablet) 100 mg PO QAM [facility] Stop: 02/05/22 08:59 Last Admin: 01/11/22 08:51 Dose: 100 mg Rivaroxaban (Rivaroxaban 20 Mg Tab) 20 mg PO QDD [facility] Stop: 02/05/22 16:29 Last Admin: 01/11/22 15:59 Dose: 20 mg Sacubitril/Valsartan (Valsartan/Sacubitril 26/24mg Tab) 1 tab PO BID [facility] Stop: 02/05/22 08:59 Last Admin: 01/06/22 09:12 Dose: 1 tab Sodium Chloride (Sodium Chloride 0.65% Na Soln 45 Ml ([place])) 2 sprays NA Q8H PRN PRN Reason: Nasal dryness Stop: 02/07/22 10:34 Tramadol HCl (Tramadol Hcl 50 Mg Tablet) 50 mg PO Q8H PRN PRN Reason: Pain Stop: 02/07/22 17:08 Last Admin: 01/11/22 12:31 Dose: 50 mg Trazodone HCl (Trazodone Hcl 100 Mg Tab) 200 mg PO [facility] Stop: 02/05/22 20:59 Last Admin: 01/10/22 21:26 Dose: 200 mg Triamcinolone Acetonide (Triamcinolone Acet 0.1% Cr 15 Gm Tube) 1 appln EXT TID [facility] Stop: 02/05/22 13:59 Last Admin: 01/11/22 13:17 Dose: Not Given Umeclidinium/Vilanterol (Umeclidinium/Vilanterol 62.5/25mcg 7 Puffs/Inhaler) 1 puffs INH QAM [facility] Stop: 02/05/22 08:59 Last Admin: 01/11/22 08:52 Dose: 1 puffs PG Care Time/CCT Total # of Minutes Spent Total Time Spent with Patient: Total time spent is greater than 50% in coordination of care (as documented) at patient's floor/unit and/or counseling patient: Coding Level of Care Code 49516 Subseq Hosp Care Lvl 3 Diagnoses Nonischemic cardiomyopathy I42.8 ICD (implantable cardioverter-defibrillator) in place Z95.810 Atrial fibrillation, permanent I48.21 Anticoagulant long-term use Z79.01 Ventricular tachycardia I47.2 Mitral regurgitation I34.0 Pericardial effusion I31.3 Chronic systolic heart failure I50.22
[2022-01-11] MEDS: AMOXICILLIN 500 MG CAP PO SCH (20:00)
[2022-01-11] MEDS: traZODone HCL 100 MG TAB PO SCH (20:00)
[2022-01-11] MEDS: QUEtiapine FUMARATE 200 MG TAB PO SCH (20:00)
[2022-01-11] MEDS: METOPROLOL TARTRATE 25 MG TAB PO SCH (21:11)
--- NOTE | 2022-01-11 21:54 | Hospitalist Progress Note ---
Date of Service January 11, 2022 Assessment & Plan (1) Dizziness: Plan: resolved. 2nd to orthostasis at time of admission. cont to hold Entresto cont to hold Jardiance. suspect recent addition of Jardiance contributed to her dizziness and an element of intravascular volume depletion - will not resume jardiance at d/c. no evidence of vertigo. CTA head/neck and CT head with old cerebellar lacune and mild vertebral artery disease but nothing high-grade and nothing acute. (2) Atrial fibrillation with RVR: Plan: Despite increased metoprolol xl dose and digoxin (dig level wnl) she continues with poor rate control with nearly all HRs >100 at rest. There is no room for additional dose titration of metoprolol xl. Continue digoxin. I spoke with Dr Starks today who saw patient - ?consideration of AV jennifer ablation? Dr Christensen to see patient tomorrow and weight in on this issue. Appreciate cardiology consult/recs. (3) Chronic systolic heart failure: Plan: ACUTE/CHRONIC CHF remains decompensated, weight still above dry weight of 260# -- but she does sound better today and looks more comfortable pulmonary-perez lasix 80mg IV x 1 today dry weight per records ~260 pounds daily weights fluid restrict 1500cc/day cont BB holding Entresto due to #1 holding jardiance most recent echo EF 20-25% ongoing issues with rapid a.fib likely contributing to decompensation (4) UTI (urinary tract infection): Plan: although urine cx has lactobacillus she has been symptomatic, has had wbc elevation, etc cont Rx but can stop rocephin and change to amox x 5 additional days (received IV rocephin x 2 doses prior) I do not think she has pyelonephritis despite c/o right flank pain (5) Bipolar disorder: Plan: cont seroquel BID, trazodone cont buspar for anxiety (6) COPD (chronic obstructive pulmonary disease): Plan: no exacerbation at this time cont usual home inhalers cont NC O2 2 L cont combivent 1 puff QID (7) Diabetes type 2, controlled: Plan: a1c <6.5% nicely controlled chronically BSGs ac/hs (8) GERD (gastroesophageal reflux disease): Plan: cont PPI (9) History of pulmonary embolism: Plan: xarelto (10) HTN (hypertension): Plan: controlled (11) ICD (implantable cardioverter-defibrillator) in place: Plan: interrogation completed no significant dysrhythmia except a.fib device working appropriately no discharges 3.9 years battery left (12) 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: Plan: 2020 07 to staph aureus appreciate Dr Sanchez orthopedics consult s/p attempt at aspiration of the scar over the left orozco - no fluid obtained Dr Sanchez gave reassurances to patient that scar is stable and without infection (13) Nonischemic cardiomyopathy: Plan: EF 20-25% see above cont BB; see above discussion re: difficulties in rate control holding entresto jardiance on hold (14) Chronic respiratory failure with hypoxia: Plan: NC O2 2 L 2nd COPD stable (15) Morbid obesity: Plan: BMI about 40 (16) Anxiety: Plan: improved with addition of buspar 5mg TID Plan cont PT, OT as tolerated updated pt's sister by phone over the weekend Admission and Anticipated Discharge Date Admission Date: January 05, 2022 Subjective patient's breathing more comfortable today still very anxious mentions having a "pressure" over the right flank area and that she can't lay on that side no pressure or pain over the back/spine region, and no pain over the left flank/side no chest pains still w/ orthopnea eating is a bit better today tele - rates still >100 (a.fib) Review of Systems Review of Systems: gen - no fevers pulm - no cough, no congestion GI - no abd pain, nausea - no dysuria today Physical Exam Physical Exam: gen - obese, sitting comfortably in bed, no respiratory distress or tachypnea today; looks more relaxed neck - difficult to assess JVD mouth - MMM heart - tachy, irregularly irregular, s1 s2 lungs - decreased BS bases, no obvious rales/wheeze; no increased work of breathing abd - soft NT ND BS+; no flank tenderness to palpation b/l ext - no edema, pulses 2+ b/l skin - scar present over distal left orozco - unchanged psych - a/o x 3, calm/not anxious today Results & Data Results & Data ([facility]) Vital Signs (Past 12 Hours) Vital Signs Temp Pulse Pulse Resp BP BP Pulse Ox 01/11/22 19:44 36.5 C 118 H 18 109/77 97 01/11/22 19:40 113 H 18 94 01/11/22 16:42 117 H 01/11/22 16:00 36.5 C 115 H 20 101/52 L 97 01/11/22 15:59 110 H 01/11/22 12:08 36.5 C 106 H 18 96/64 L 91 01/11/22 11:56 102 H 01/11/22 11:21 96 H 18 93 01/11/22 10:05 O2 Del Method O2 Flow Rate 01/11/22 19:44 Nasal Cannula 01/11/22 19:40 Nasal Cannula 2 01/11/22 16:42 01/11/22 16:00 01/11/22 15:59 01/11/22 12:08 Room Air 01/11/22 11:56 01/11/22 11:21 Nasal Cannula 2 01/11/22 10:05 Nasal Cannula 2 Laboratory Results Laboratory Results - last 24 hr 01/11/22 01/11/22 01/11/22 06:12 06:12 08:13 WBC 12.12 H RBC 3.82 L Hgb 10.1 L Hct 32.1 L MCV 84.0 MCH 26.4 MCHC 31.5 L RDW Std Deviation 49.4 H RDW Coeff of Logan 16.2 H Plt Count 270 MPV 10.3 Absolute Nucleated RBC 0.12 H Nucleated RBC % (auto) 1.0 Sodium TNP 136 Potassium TNP 4.0 Chloride 97 L Carbon Dioxide 29 Anion Gap TNP BUN 21 Creatinine 0.99 Est Cr Clr Drug Dosing 82.2 Est GFR ( Amer) 71.8 Est GFR (Non-Af Amer) 61.9 BUN/Creatinine Ratio 21.2 H Glucose 103 H Calcium 9.1 PG Care Time/CCT Total # of Minutes Spent Total Time Spent with Patient: Total time spent is greater than 50% in coordination of care (as documented) at patient's floor/unit and/or counseling patient: Coding Level of Care Code 03661 Subseq Hosp Care Lvl 2 Diagnoses Dizziness R42 Atrial fibrillation with RVR I48.91 Chronic systolic heart failure I50.22 UTI (urinary tract infection) N39.0 Bipolar disorder F31.9 COPD (chronic obstructive pulmonary disease) J44.9 Diabetes type 2, controlled E11.8 Diabetes mellitus complication status: with unspecified complications Diabetes mellitus terminal supervisor insulin use: without terminal supervisor use GERD (gastroesophageal reflux disease) K21.9 Esophagitis presence: esophagitis presence not specified History of pulmonary embolism Z86.711 HTN (hypertension) I10 Hypertension type: essential hypertension ICD (implantable cardioverter-defibrillator) in place Z95.810 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 T84.623A Nonischemic cardiomyopathy I42.8 Chronic respiratory failure with hypoxia J96.11 Morbid obesity E66.01 Anxiety F41.9 (1) Diabetes type 2, controlled Diabetes mellitus complication status: with unspecified complications Diabetes mellitus terminal supervisor insulin use: without usp use Qualified Code(s): E11.8 - Type 2 diabetes mellitus with unspecified complications (2) GERD (gastroesophageal reflux disease) Esophagitis presence: esophagitis presence not specified Qualified Code(s): K21.9 - Gastro-esophageal reflux disease without esophagitis (3) HTN (hypertension) Hypertension type: essential hypertension Qualified Code(s): I10 - Essential (primary) hypertension
[2022-01-12] MEDS: METOPROLOL TARTRATE 25 MG TAB PO SCH (00:07)
[2022-01-12] MEDS ORDERED: ALBUT/IPRATROP 3MG/0.5MG NEB 3 ML VIAL NEB STA (04:28)
[2022-01-12] MEDS: ALBUTEROL HFA 8 GM INHALER INH SCH ×4 (07:00→19:34)
[2022-01-12] MEDS: IPRATROPIUM BROMIDE HFA INHALER INH SCH ×4 (07:00→19:34)
[2022-01-12 08:34] LABS: Hematocrit (blood only) 30.1 % (34.1-44.9); Hemoglobin 9.6 g/dl (12.0-16.0); Mean Corpuscular Hemoglobin 26.8 pg (25.0-34.0); Mean Corpuscular Hgb Conc 31.9 g/dL (32.0-36.0); Mean Corpuscular Volume 84.1 fL (80.0-100.0); Mean Platelet Volume 10.2 fL (9.4-12.3); Nucleated RBC # (auto) 0.18 K/uL (0-0); Nucleated RBC % (auto) 1.7 %; Platelet Count 274 K/uL (130-400); RDW Coefficient of Variation 15.9 % (11.5-14.5); RDW Standard Deviation 49.2 fL (36.4-46.3); Red Blood Count 3.58 M/uL (3.93-5.22); White Blood Count 10.41 K/ul (4.8-10.8)
[2022-01-12 08:59] LABS: BUN Creatinine Ratio 21.3 (10-20); Creatinine Clr Calc Pharmacy 91.7 ml/min; Est GFR (African American) 81.6 ml/min; Est GFR (Non-African American) 70.4 ml/min; Potassium 3.8 mmol/L (3.5-5.1)
[2022-01-12] MEDS: PREGABALIN 150 MG CAP PO SCH ×2 (09:03→20:30)
[2022-01-12] MEDS: busPIRone 5 MG TAB PO SCH ×3 (09:03→20:33)
[2022-01-12] MEDS: METOPROLOL SUCC 50MG EXT REL TAB PO SCH (09:03)
[2022-01-12] MEDS: POTASSIUM CHLORIDE CRTAB 20 MEQ TABCR PO SCH (09:03)
[2022-01-12] MEDS: PANTOprazole 40 MG TAB PO SCH (09:03)
[2022-01-12] MEDS: QUEtiapine FUMARATE 100 MG TABLET PO SCH (09:04)
[2022-01-12] MEDS: DOCUSATE SODIUM 100 MG CAP PO SCH ×2 (09:04→20:32)
[2022-01-12] MEDS: ATORVASTATIN 10 MG TAB PO SCH (09:04)
[2022-01-12] MEDS: AMOXICILLIN 500 MG CAP PO SCH ×3 (09:04→20:32)
[2022-01-12] MEDS: TRIAMCINOLONE ACET 0.1% CR 15 GM TUBE EXT SCH ×4 (09:05→20:33)
[2022-01-12] MEDS: METOPROLOL SUCC 25MG EXT REL TAB PO SCH (09:05)
--- NOTE | 2022-01-12 09:23 | Cardiology Progress Note ---
Date of Service January 12, 2022 Assessment & Plan (1) Atrial fibrillation with RVR: (2) Acute on chronic HFrEF (heart failure with reduced ejection fraction): (3) Anticoagulant long-term use: Plan 1. Atrial fibrillation: She has been in continuous atrial fibrillation with a rapid heart rate since admission. For the last 5 days difficult despite holding and restarting her medications her heart rate has remained in excess of 100 bpm and she feels poorly. Her blood pressure is low causing us to hold medications from time to time. At this point I do not think there is anything we can do but control atrial fibrillation with AV jennifer ablation. I discussed this with her and she is agreeable. We will plan on doing that procedure today. I discussed the indications, procedure, risks and alternatives with her and she understands and agrees to proceed. I also discussed it with her sister, Luiza, by telephone at her request. 2. CHF: She does have significant left ventricular dysfunction, at the moment she is clinically not in heart failure. Her left ventricular dysfunction may in part be due to the atrial fibrillation and rapid heart rate. Controlling the heart rate may help. She does have a device in place so she will be pacing, this may or may not be beneficial since her rate will be slower and more regular which will be helpful however she may have dyssynchrony. I did discuss the possibility, even the likelihood, that we will need to upgrade her device to a biventricular unit in the event that she has a wide-complex and worsening heart failure. Her device is several years from replacement and could be replaced at that time. She understands and agrees to proceed even with this possibility. 3. Anticoagulation: She is on Xarelto, for this procedure I think it is acceptable to do the procedure under full anticoagulation as the risk of perforation or other bleeding issues is minimal. We will therefore proceed. Admission and Anticipated Discharge Date Admission Date: January 05, 2022 Subjective Feeling somewhat well but weak and difficulty with exertion. No palpitations but she is aware that her heart rate is elevated in atrial fibrillation and she does not feel well in general. No specific cardiovascular symptoms, no orthopnea or PND. Physical Exam Physical Exam: Constitutional: Alert, cooperative and in no distress. HEENT: Unremarkable Neck: No jugular venous distention, carotid pulses are irregular but otherwise normal and equal bilaterally without bruits. Pulmonary: Clear to auscultation bilaterally. Cardiac: Irregular rapid rhythm with no murmur, gallop or rub. Abdomen: Soft, nontender with normal bowel sounds. Extremities: No edema. Distal pulses intact. Neurologic: No focal findings. Gait was not tested. Skin: No rash, ecchymoses or petechiae. Results & Data ([facility]) Vital Signs (Past 12 Hours) Vital Signs Temp Pulse Resp BP BP Pulse Ox O2 Del Method 01/12/22 07:48 37.1 C 104 H 20 105/74 94 Nasal Cannula 01/12/22 04:42 97 H 20 97 Nasal Cannula 01/12/22 02:37 36.6 C 93 H 18 105/50 L 96 Nasal Cannula 01/11/22 23:21 36.8 C 111 H 18 107/48 L 96 Nasal Cannula O2 Flow Rate 01/12/22 07:48 2 01/12/22 04:42 2 01/12/22 02:37 01/11/22 23:21 Laboratory Results CBC 01/12/22 Range/Units 07:38 WBC 10.41 (4.8-10.8) K/ul RBC 3.58 L (3.93-5.22) M/uL Hgb 9.6 L (12.0-16.0) g/dl Hct 30.1 L (34.1-44.9) % Plt Count 274 (130-400) K/uL Comprehensive Metabolic Panel 01/12/22 Range/Units 07:38 Sodium 135 L (136-145) mmol/L Potassium 3.8 (3.5-5.1) mmol/L Chloride 99 (98-107) mmol/L Carbon Dioxide 29 (21-32) mmol/L BUN 19 (6-23) mg/dl Creatinine 0.89 (0.6-1.2) mg/dl Glucose 99 (70-99(Fasting)) mg/dl Calcium 9.0 (8.5-10.1) mg/dl Intake and Output 01/11/22 01/12/22 01/12/22 22:59 06:59 14:59 Intake Total 200 / 270 70 / 270 Output Total 1050 / 1050 Balance 200 / -780 -980 / -780 Intake: Oral 200 / 270 70 / 270 Output: Urine 1050 / 1050 Other: Weight 120.1 kg Diagnostic Findings Telemetry: I reviewed her telemetry going back about 5 days, her heart rate has fluctuated around 100 bpm, typically in the 90-120 beat range averaging more than 100 bpm throughout. PG Care Time/CCT Total # of Minutes Spent Total Time Spent with Patient: Total time spent is greater than 50% in coordination of care (as documented) at patient's floor/unit and/or counseling patient: Coding Level of Care Code 01081 Subseq Hosp Care Lvl 3 Diagnoses Atrial fibrillation with RVR I48.91 Acute on chronic HFrEF (heart failure with reduced ejection fraction) I50.23 Anticoagulant long-term use Z79.01
--- NOTE | 2022-01-12 12:41 | Billing Data ---
Date of Service January 05, 2022 Coding Level of Care Code 38401 Initial Inpt Care Lvl 3
[2022-01-12] MEDS: UMECLIDINIUM/VILANTEROL 62.5/25MCG 7 PUFFS/INHALER INH SCH (12:51)
--- NOTE | 2022-01-12 14:22 | Pre Anesthesia Assessment ---
Date of Service January 12, 2022 Pre Sedation Assessment Vital Signs Temp Pulse Pulse Resp BP BP Pulse Ox 01/12/22 10:58 36.6 C 117 H 20 100/65 96 01/12/22 07:48 37.1 C 104 H 20 105/74 94 01/12/22 04:42 97 H 20 97 01/12/22 02:37 36.6 C 93 H 18 105/50 L 96 01/11/22 23:21 36.8 C 111 H 18 107/48 L 96 01/11/22 20:00 01/11/22 19:44 36.5 C 118 H 18 109/77 97 01/11/22 19:40 113 H 18 94 01/11/22 16:42 117 H 01/11/22 16:00 36.5 C 115 H 20 101/52 L 97 01/11/22 15:59 110 H O2 Del Method O2 Flow Rate 01/12/22 10:58 Nasal Cannula 2 01/12/22 07:48 Nasal Cannula 2 01/12/22 04:42 Nasal Cannula 2 01/12/22 02:37 Nasal Cannula 01/11/22 23:21 Nasal Cannula 01/11/22 20:00 Nasal Cannula 2 01/11/22 19:44 Nasal Cannula 01/11/22 19:40 Nasal Cannula 2 01/11/22 16:42 01/11/22 16:00 01/11/22 15:59 Cardiovascular + tachycardic and + irregularly irregular no murmur Respiratory normal respiratory effort, lungs clear to auscultation Pre-Sedation Airway Assessment Smoking Status: Former smoker Hx Sleep Apnea: No Hx Difficult Intubation: No Short, Thick Neck: No Thyromental Distance: < 3.5 Finger Breadths Oral Cavity: + WNL Mallampati Class: III ASA: ASA3 NPO Status Date of Last Intake of Fluids: 01/11/22 Date of Last Intake of Solid Food: 01/11/22 Procedure Planning Contraindications for Sedation: none Current Medications Reviewed: Yes Notes The planned sedation has been discussed with the patient. Informed Consent was obtained. I have identified the patient, determined the appropriateness of sedation and have assessed the patient immediately prior to the procedure. All medicine(s) and interventions are by my order.
[2022-01-12] MEDS ORDERED: MIDAZOLAM HCL 5 MG/ML 1 ML VIAL ONE (14:24)
[2022-01-12] MEDS ORDERED: HEPARIN (PORCINE) 1000 UNIT/ML 10 ML (CATH LAB USE ONLY) ONE (14:24)
[2022-01-12] MEDS ORDERED: ACETAMINOPHEN 325 MG TAB PO PRN (15:46)
--- NOTE | 2022-01-12 15:57 | Electrophysiology Report ---
Date of Service January 12, 2022 Electrophysiology Procedure Electrophysiology Procedure Report Preoperative diagnosis: Atrial fibrillation with rapid ventricular response Postoperative diagnosis: Same Procedure: AV jennifer ablation Biventricular ICD reprogramming Surgeon: Ron Christensen MD Complications: None Estimated blood loss: Minimal, less than 5 cc Catheters: SR 0 sheath, 10 mm ablation catheter Procedure details: The patient was brought to the laboratory being n.p.o. after midnight. She was prepped and draped in standard sterile manner in the right groin was anesthetized with lidocaine local anesthetic. Right femoral venipuncture was performed without difficulty and an SR 0 ablation sheath was advanced to position in the right atrium. A 10 mm ablation catheter was advanced through the sheath and positioned at the AV junction. Once in position RF energy was applied, 3 60 second energy applications were used. Junctional rhythm ensued during the second ablation application and remained. She was observed for 25 minutes in the laboratory and junctional rhythm remained at a heart rate of about 60 bpm. The pacemaker was evaluated and reprogrammed post ablation. The sheath was removed under fluoroscopic guidance and hemostasis was obtained by firm pressure at the puncture site. She will be transferred to the [facility] recovery unit. [facility] [place] Electrophysiology codes Indication for Procedure (1) Atrial fibrillation with RVR: EP Procedure 1: Electrophysiology: 87946 Ablation AV Node w/wo pace ICD Procedure 1: ICD: 71675 ICD Multi program PG Moderate Sedation Codes Moderate Sedation Codes Procedure 1: Sedation/Anesthesia: 25857 Mod Sedation by the same physician;Init15 Min Child Age 5 & Up Procedure 2: Sedation/Anesthesia: 89915 Mod Sedation by the same physician; Ea [id number] Minutes
[2022-01-12] MEDS: RIVAROXABAN 20 MG TAB PO SCH (16:28)
[2022-01-12] MEDS: DIGOXIN 0.125 MG TAB PO SCH (16:28)
--- NOTE | 2022-01-12 17:54 | Hospitalist Progress Note ---
Date of Service January 12, 2022 Assessment & Plan (1) Dizziness: Plan: resolved. 2nd to orthostasis at time of admission. cont to hold Entresto cont to hold Jardiance. suspect recent addition of Jardiance contributed to her dizziness and an element of intravascular volume depletion - will not resume jardiance at d/c. no evidence of vertigo. CTA head/neck and CT head with old cerebellar lacune and mild vertebral artery disease but nothing high-grade and nothing acute. (2) Atrial fibrillation with RVR: Plan: Despite increased metoprolol xl dose and digoxin (dig level wnl) she continues with poor rate control with nearly all HRs >100 at rest. There is no room for additional dose titration of metoprolol xl. Continue digoxin. Cardiology now recommended and performed AV jennifer ablation on 01/12, pacer set to low of 50. In junctional rhythm now Appreciate cardiology consult/recs. monitor on tele (3) Chronic systolic heart failure: Plan: ACUTE/CHRONIC CHF remains decompensated, weight still above dry weight of 260# -- but she does sound better today and looks more comfortable pulmonary-perez diuresed with IV lasix dry weight per records ~260 pounds daily weights fluid restrict 1500cc/day cont BB holding Entresto due to #1 holding jardiance most recent echo EF 20-25% ongoing issues with rapid a.fib likely contributing to decompensation-now AV node ablation should help with rate control -restart home lasix 80m po daily (4) UTI (urinary tract infection): Plan: although urine cx has lactobacillus she has been symptomatic, has had wbc elevation, etc received rocephin and then changed to amox x 5 additional days (received IV rocephin x 2 doses prior) I do not think she has pyelonephritis despite c/o right flank pain (5) Bipolar disorder: Plan: cont seroquel BID, trazodone cont buspar for anxiety (6) COPD (chronic obstructive pulmonary disease): Plan: no exacerbation at this time cont usual home inhalers cont NC O2 2 L cont combivent 1 puff QID (7) Diabetes type 2, controlled: Plan: a1c <6.5% nicely controlled chronically BSGs ac/hs (8) GERD (gastroesophageal reflux disease): Plan: - continue PPI (9) HTN (hypertension): Plan: BPs low on admission now improved continue metoprolol, but holding home Entresto restart po lasix (10) 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: Plan: ~1 year ago. Some edema at surgical scar. No obvious infectious signs on exam such as streaking erythema or drainage. (11) Nonischemic cardiomyopathy: Plan: -. Nonobstructive CAD per cath in 2006 as above (12) Chronic respiratory failure with hypoxia: Plan: She has severe COPD and restrictive lung disease. Continue home Anoro Ellipta. Continue home prn 2L O2. Titrate to >90%. Respiratory status appears at baseline. (13) Morbid obesity: Plan: BMI about 40 (14) Anticoagulant long-term use: Plan: Hx of PE and afib. Continue home Xarelto. Plan Dispo-continued stay Admission and Anticipated Discharge Date Admission Date: January 05, 2022 Subjective pt just returned from AV node ablation and was drowsy but had no complaints tele with afib, rates 90-100s prior to ablation Review of Systems Review of Systems: All systems reviewed & are unremarkable except as noted in HPI & below Physical Exam Constitutional: WD/WN, vitals as above Eyes: + anicteric sclerae ENMT: external ear and nose normal, oropharynx normal Neck: trachea midline, no thyromegaly Respiratory: normal respiratory effort, lungs clear to auscultation Cardiovascular: RRR, no murmur, no edema Chest (Breasts): Chest: normal inspection of chest Gastrointestinal (Abdomen): normal bowel sounds, soft, nontender, no hepatosplenomegaly Musculoskeletal: Extremities: extremities normal to inspection; no cyanosis and no clubbing Skin: no rashes, warm and dry Neurologic: moves all extremities; no focal motor deficits Lymphatic: no lymphedema Results & Data Results & Data ([facility]) Vital Signs (Past 12 Hours) Vital Signs Temp Pulse Pulse Resp BP BP Pulse Ox 01/12/22 17:43 60 22 117/76 95 01/12/22 17:17 60 20 115/79 95 01/12/22 16:49 69 22 122/80 94 01/12/22 16:32 36.8 C 75 21 114/83 96 01/12/22 16:28 63 01/12/22 16:06 62 20 99/62 L 99 01/12/22 15:50 65 20 95 01/12/22 10:58 36.6 C 117 H 20 100/65 96 01/12/22 07:48 37.1 C 104 H 20 105/74 94 O2 Del Method O2 Flow Rate 01/12/22 17:43 Nasal Cannula 2 01/12/22 17:17 Nasal Cannula 2 01/12/22 16:49 Nasal Cannula 2 01/12/22 16:32 Nasal Cannula 2 01/12/22 16:28 01/12/22 16:06 Nasal Cannula 2 01/12/22 15:50 Nasal Cannula 2 01/12/22 10:58 Nasal Cannula 2 01/12/22 07:48 Nasal Cannula 2 Laboratory Results 01/12/22 01/12/22 Range/Units 07:38 07:38 WBC 10.41 (4.8-10.8) K/ul RBC 3.58 L (3.93-5.22) M/uL Hgb 9.6 L (12.0-16.0) g/dl Hct 30.1 L (34.1-44.9) % MCV 84.1 (80.0-100.0) fL MCH 26.8 (25.0-34.0) pg MCHC 31.9 L (32.0-36.0) g/dL RDW Std Deviation 49.2 H (36.4-46.3) fL RDW Coeff of Logan 15.9 H (11.5-14.5) % Plt Count 274 (130-400) K/uL MPV 10.2 (9.4-12.3) fL Absolute Nucleated RBC 0.18 H (0-0) K/uL Nucleated RBC % (auto) 1.7 % Sodium 135 L (136-145) mmol/L Potassium 3.8 (3.5-5.1) mmol/L Chloride 99 (98-107) mmol/L Carbon Dioxide 29 (21-32) mmol/L Anion Gap 7 (3-11) BUN 19 (6-23) mg/dl Creatinine 0.89 (0.6-1.2) mg/dl Est Cr Clr Drug Dosing 91.7 ml/min Est GFR ( Amer) 81.6 ml/min Est GFR (Non-Af Amer) 70.4 ml/min BUN/Creatinine Ratio 21.3 H (10-20) Glucose 99 (70-99(Fasting)) mg/dl Calcium 9.0 (8.5-10.1) mg/dl PG Care Time/CCT Total # of Minutes Spent Total Time Spent with Patient: Total time spent is greater than 50% in coordination of care (as documented) at patient's floor/unit and/or counseling patient: Coding Level of Care Code 31645 Subseq Hosp Care Lvl 2 Diagnoses Dizziness R42 Atrial fibrillation with RVR I48.91 Chronic systolic heart failure I50.22 UTI (urinary tract infection) N39.0 Bipolar disorder F31.9 COPD (chronic obstructive pulmonary disease) J44.9 Diabetes type 2, controlled E11.8 Diabetes mellitus care home insulin use: without care home use Diabetes mellitus complication status: with unspecified complications GERD (gastroesophageal reflux disease) K21.9 Esophagitis presence: esophagitis presence not specified HTN (hypertension) I10 Hypertension type: essential hypertension 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 T84.623A Nonischemic cardiomyopathy I42.8 Chronic respiratory failure with hypoxia J96.11 Morbid obesity E66.01 Anticoagulant long-term use Z79.01 (1) GERD (gastroesophageal reflux disease) Esophagitis presence: esophagitis presence not specified Qualified Code(s): K21.9 - Gastro-esophageal reflux disease without esophagitis (2) HTN (hypertension) Hypertension type: essential hypertension Qualified Code(s): I10 - Essential (primary) hypertension (3) Diabetes type 2, controlled Diabetes mellitus care home insulin use: without engineering vice president use Diabetes mellitus complication status: with unspecified complications Qualified Code(s): E11.8 - Type 2 diabetes mellitus with unspecified complications
[2022-01-12] MEDS: traZODone HCL 100 MG TAB PO SCH (20:31)
[2022-01-12] MEDS: hydrOXYzine HCl 25 MG TAB PO PRN (20:31)
[2022-01-12] MEDS: QUEtiapine FUMARATE 200 MG TAB PO SCH (20:32)
[2022-01-13 06:41] LABS: Basophils # (auto) 0.07 K/uL (0-0.2); Basophils % (auto) 0.6 %; Eosinophils # (auto) 0.03 K/uL (0-0.50); Eosinophils % (auto) 0.2 %; Hematocrit (blood only) 31.5 % (34.1-44.9); Hemoglobin 10.2 g/dl (12.0-16.0); Immature Granulocytes # (auto) 0.07 K/uL (0.00-0.02); Immature Granulocytes % (auto) 0.6 %; Lymphocytes # (auto) 2.18 K/uL (1.2-3.4); Lymphocytes % (auto) 17.4 %; Mean Corpuscular Hemoglobin 26.4 pg (25.0-34.0); Mean Corpuscular Hgb Conc 32.4 g/dL (32.0-36.0); Mean Corpuscular Volume 81.6 fL (80.0-100.0); Mean Platelet Volume 10.1 fL (9.4-12.3); Monocytes # (auto) 1.14 K/uL (0.24-0.82); Monocytes % (auto) 9.1 %; Neutrophils # (auto) 9.02 K/uL (1.4-6.5); Neutrophils % (auto) 72.1 %; Nucleated RBC # (auto) 0.43 K/uL (0-0); Nucleated RBC % (auto) 3.4 %; Platelet Count 321 K/uL (130-400); RDW Coefficient of Variation 16.2 % (11.5-14.5); RDW Standard Deviation 47.2 fL (36.4-46.3); Red Blood Count 3.86 M/uL (3.93-5.22); White Blood Count 12.51 K/ul (4.8-10.8)
[2022-01-13 07:02] LABS: BUN Creatinine Ratio 22.7 (10-20); Calcium 9.8 mg/dl (8.5-10.1); Creatinine Clr Calc Pharmacy 62.9 ml/min; Est GFR (African American) 52.6 ml/min; Est GFR (Non-African American) 45.4 ml/min; Magnesium 2.3 mg/dl (1.7-2.4); Potassium 5.4 mmol/L (3.5-5.1)
[2022-01-13 07:06] LABS: Ovalocytes 1+; Polychromasia 1+
[2022-01-13] MEDS: ALBUTEROL 0.083% NEBU SOLN 3 ML VIAL NEB SCH ×4 (07:14→19:59)
[2022-01-13] MEDS: POTASSIUM CHLORIDE CRTAB 20 MEQ TABCR PO SCH (08:16)
[2022-01-13] MEDS: traMADol HCL 50 MG TABLET PO PRN ×2 (08:24→20:21)
[2022-01-13] MEDS: PREGABALIN 150 MG CAP PO SCH ×2 (08:24→20:20)
[2022-01-13] MEDS: UMECLIDINIUM/VILANTEROL 62.5/25MCG 7 PUFFS/INHALER INH SCH (08:25)
[2022-01-13] MEDS: PANTOprazole 40 MG TAB PO SCH (08:25)
[2022-01-13] MEDS: QUEtiapine FUMARATE 100 MG TABLET PO SCH (08:25)
[2022-01-13] MEDS: ATORVASTATIN 10 MG TAB PO SCH (08:25)
[2022-01-13] MEDS: METOPROLOL SUCC 25MG EXT REL TAB PO SCH (08:25)
[2022-01-13] MEDS: DOCUSATE SODIUM 100 MG CAP PO SCH ×2 (08:25→20:21)
[2022-01-13] MEDS: AMOXICILLIN 500 MG CAP PO SCH ×3 (08:25→20:23)
[2022-01-13] MEDS: METOPROLOL SUCC 50MG EXT REL TAB PO SCH (08:26)
[2022-01-13] MEDS: TRIAMCINOLONE ACET 0.1% CR 15 GM TUBE EXT SCH ×2 (08:26→13:11)
[2022-01-13] MEDS: FUROSEMIDE 80 MG TAB PO SCH (09:28)
[2022-01-13] MEDS: busPIRone 5 MG TAB PO SCH ×3 (09:28→20:22)
[2022-01-13] MEDS: DIGOXIN 0.125 MG TAB PO SCH ×2 (15:42→17:40)
[2022-01-13] MEDS: RIVAROXABAN 20 MG TAB PO SCH (15:45)
--- NOTE | 2022-01-13 17:49 | Hospitalist Progress Note ---
Date of Service January 13, 2022 Assessment & Plan (1) Atrial fibrillation with RVR: Plan: Despite increased metoprolol xl dose and digoxin (dig level wnl) she continued with poor rate control with nearly all HRs >100 at rest. There was no room for additional dose titration of metoprolol xl. Cardiology now recommended and performed AV jennifer ablation on 01/12, pacer set to low of 50. In junctional and sometimes aflutter but due to AV node ablation, has ventricular rates in the 50s Continue digoxin now only for HF benefit, not for rate control Appreciate cardiology consult/recs. monitor on tele (2) Dizziness: Plan: resolved. 2nd to orthostasis at time of admission. cont to hold Entresto cont to hold Jardiance. suspect recent addition of Jardiance contributed to her dizziness and an element of intravascular volume depletion - will not resume jardiance at d/c and may not be able to resume Entresto no evidence of vertigo. CTA head/neck and CT head with old cerebellar lacune and mild vertebral artery disease but nothing high-grade and nothing acute. (3) Chronic systolic heart failure: Plan: ACUTE/CHRONIC CHF remains decompensated, weight still above dry weight of 260# -- but she does sound better today and looks more comfortable pulmonary-perez diuresed with IV lasix Weight is down quite a bit now dry weight per records ~260 pounds daily weights fluid restrict 1500cc/day cont BB holding Entresto due to #1 holding jardiance most recent echo EF 20-25% ongoing issues with rapid a.fib likely contributing to decompensation-now AV node ablation should help with rate control -continue home lasix 80m po daily -hold K+ for hyperkalemia today -watch BMP in AM given rise in director of sustainable design and K+ -continue digoxin for HF benefits (4) UTI (urinary tract infection): Plan: although urine cx has lactobacillus she has been symptomatic, has had wbc e levation, etc received rocephin and then changed to amox x 5 additional days (received IV rocephin x 2 doses prior) I do not think she has pyelonephritis despite c/o right flank pain (5) Bipolar disorder: Plan: cont seroquel BID, trazodone cont buspar for anxiety (6) COPD (chronic obstructive pulmonary disease): Plan: no exacerbation at this time cont usual home inhalers cont NC O2 2 L cont combivent 1 puff QID (7) Diabetes type 2, controlled: Plan: a1c <6.5% nicely controlled chronically BSGs ac/hs (8) GERD (gastroesophageal reflux disease): Plan: - continue PPI (9) HTN (hypertension): Plan: BPs low on admission now improved continue metoprolol, but holding home Entresto continue po lasix (10) 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: Plan: ~1 year ago. Some edema at surgical scar. No obvious infectious signs on exam such as streaking erythema or drainage. (11) Nonischemic cardiomyopathy: Plan: -. Nonobstructive CAD per cath in 2006 as above (12) Chronic respiratory failure with hypoxia: Plan: She has severe COPD and restrictive lung disease. Continue home Anoro Ellipta. Continue home prn 2L O2. Titrate to >90%. Respiratory status appears at baseline. (13) Morbid obesity: Plan: BMI about 40 (14) Anticoagulant long-term use: Plan: Hx of PE and afib. Continue home Xarelto. Plan Dispo-continued stay , but improving, may be able to discharge in next 1-2 days Admission and Anticipated Discharge Date Admission Date: January 05, 2022 Subjective Pt reports tian negrete today. Was able to ambulate around the room a bit. No other concerns Tele with atrial flutter and junctional rhythm, rates 50s, occasional pacing Review of Systems Review of Systems: All systems reviewed & are unremarkable except as noted in HPI & below Physical Exam Constitutional: WD/WN, vitals as above Eyes: + anicteric sclerae Neck: trachea midline, no thyromegaly Respiratory: normal respiratory effort, lungs clear to auscultation Cardiovascular: Rate/Rhythm: regular rate and + bradycardic Heart Sounds: no murmur Extremities: no edema Chest (Breasts): Chest: normal inspection of chest Gastrointestinal (Abdomen): normal bowel sounds, soft, nontender, no hepatosplenomegaly Musculoskeletal: Extremities: extremities normal to inspection; no cyanosis and no clubbing Skin: no rashes, warm and dry Neurologic: moves all extremities; no focal motor deficits Lymphatic: no lymphedema Results & Data Results & Data ([facility]) Vital Signs (Past 12 Hours) Vital Signs Temp Pulse Pulse Pulse Resp BP BP 01/13/22 17:40 61 01/13/22 15:26 54 L 18 01/13/22 15:17 36.4 C L 54 L 17 95/62 L 01/13/22 12:30 36.6 C 40 L 19 109/60 01/13/22 11:06 52 L 18 01/13/22 08:00 01/13/22 07:14 61 20 01/13/22 08:01 36.4 C L 56 L 19 101/30 L Pulse Ox O2 Del Method O2 Flow Rate 01/13/22 17:40 01/13/22 15:26 98 Nasal Cannula 2 01/13/22 15:17 98 Nasal Cannula 2 01/13/22 12:30 98 Nasal Cannula 2 01/13/22 11:06 97 Nasal Cannula 2 01/13/22 08:00 Nasal Cannula 2 01/13/22 07:14 98 Nasal Cannula 2 01/13/22 08:01 97 Nasal Cannula 2 Laboratory Results 01/13/22 01/13/22 Range/Units 05:44 05:44 WBC 12.51 H (4.8-10.8) K/ul RBC 3.86 L (3.93-5.22) M/uL Hgb 10.2 L (12.0-16.0) g/dl Hct 31.5 L (34.1-44.9) % MCV 81.6 (80.0-100.0) fL MCH 26.4 (25.0-34.0) pg MCHC 32.4 (32.0-36.0) g/dL RDW Std Deviation 47.2 H (36.4-46.3) fL RDW Coeff of [place] 16.2 H (11.5-14.5) % Plt Count 321 (130-400) K/uL MPV 10.1 (9.4-12.3) fL Immature Gran % (Auto) 0.6 % Neut % (Auto) 72.1 % Lymph % (Auto) 17.4 % [place] % (Auto) 9.1 % Eos % (Auto) 0.2 % Baso % (Auto) 0.6 % Neut # (Auto) 9.02 H (1.4-6.5) K/uL Lymph # (Auto) 2.18 (1.2-3.4) K/uL [place] # (Auto) 1.14 H (0.24-0.82) K/uL Eos # (Auto) 0.03 (0-0.50) K/uL Baso # (Auto) 0.07 (0-0.2) K/uL Immature Gran # (Auto) 0.07 H (0.00-0.02) K/uL Absolute Nucleated RBC 0.43 H (0-0) K/uL Nucleated RBC % (auto) 3.4 % Polychromasia 1+ Ovalocytes 1+ Sodium 132 L (136-145) mmol/L Potassium 5.4 H D (3.5-5.1) mmol/L Chloride 98 (98-107) mmol/L Carbon Dioxide 24 (21-32) mmol/L Anion Gap 10 (3-11) BUN 29 H (6-23) mg/dl Creatinine 1.28 H D (0.6-1.2) mg/dl Est Cr Clr Drug Dosing 62.9 ml/min Est GFR ( Amer) 52.6 ml/min Est GFR (Non-Af Amer) 45.4 ml/min BUN/Creatinine Ratio 22.7 H (10-20) Glucose 107 H (70-99(Fasting)) mg/dl Calcium 9.8 (8.5-10.1) mg/dl Magnesium 2.3 (1.7-2.4) mg/dl PG Care Time/CCT Total # of Minutes Spent Total Time Spent with Patient: Total time spent is greater than 50% in coordination of care (as documented) at patient's floor/unit and/or counseling patient: Coding Level of Care Code 49405 Subseq Hosp Care Lvl 2 Diagnoses Atrial fibrillation with RVR I48.91 Dizziness R42 Chronic systolic heart failure I50.22 UTI (urinary tract infection) N39.0 Bipolar disorder F31.9 COPD (chronic obstructive pulmonary disease) J44.9 Diabetes type 2, controlled E11.8 Diabetes mellitus chcf insulin use: without chcf use Diabetes mellitus complication status: with unspecified complications GERD (gastroesophageal reflux disease) K21.9 Esophagitis presence: esophagitis presence not specified HTN (hypertension) I10 Hypertension type: essential hypertension 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 T84.623A Nonischemic cardiomyopathy I42.8 Chronic respiratory failure with hypoxia J96.11 Morbid obesity E66.01 Anticoagulant long-term use Z79.01 (1) Diabetes type 2, controlled Diabetes mellitus manager terminal insulin use: without manager terminal use Diabetes mellitus complication status: with unspecified complications Qualified Code(s): E11.8 - Type 2 diabetes mellitus with unspecified complications (2) GERD (gastroesophageal reflux disease) Esophagitis presence: esophagitis presence not specified Qualified Code(s): K21.9 - Gastro-esophageal reflux disease without esophagitis (3) HTN (hypertension) Hypertension type: essential hypertension Qualified Code(s): I10 - Essential (primary) hypertension
[2022-01-13] MEDS: traZODone HCL 100 MG TAB PO SCH (20:23)
[2022-01-13] MEDS: QUEtiapine FUMARATE 200 MG TAB PO SCH (20:23)
[2022-01-14 07:07] LABS: BUN Creatinine Ratio 28.2 (10-20); Creatinine Clr Calc Pharmacy 78.7 ml/min; Est GFR (African American) 68.4 ml/min; Magnesium 2.2 mg/dl (1.7-2.4); Potassium 4.2 mmol/L (3.5-5.1)
[2022-01-14] MEDS: ALBUTEROL 0.083% NEBU SOLN 3 ML VIAL NEB SCH ×4 (07:16→19:36)
[2022-01-14] MEDS: METOPROLOL SUCC 25MG EXT REL TAB PO SCH (08:41)
[2022-01-14] MEDS: ATORVASTATIN 10 MG TAB PO SCH (08:42)
[2022-01-14] MEDS: FUROSEMIDE 80 MG TAB PO SCH (08:42)
[2022-01-14] MEDS: DOCUSATE SODIUM 100 MG CAP PO SCH ×2 (08:42→20:01)
[2022-01-14] MEDS: UMECLIDINIUM/VILANTEROL 62.5/25MCG 7 PUFFS/INHALER INH SCH (08:42)
[2022-01-14] MEDS: AMOXICILLIN 500 MG CAP PO SCH ×3 (08:42→20:03)
[2022-01-14] MEDS: PANTOprazole 40 MG TAB PO SCH (08:42)
[2022-01-14] MEDS: QUEtiapine FUMARATE 100 MG TABLET PO SCH (08:42)
[2022-01-14] MEDS: busPIRone 5 MG TAB PO SCH ×3 (08:42→20:03)
[2022-01-14] MEDS: METOPROLOL SUCC 50MG EXT REL TAB PO SCH (08:42)
[2022-01-14] MEDS: PREGABALIN 150 MG CAP PO SCH ×2 (08:45→20:01)
--- NOTE | 2022-01-14 14:59 | Post Anesthesia Assessment ---
Date of Service January 14, 2022 Post Sedation Assessment Vital Signs Temp Pulse Pulse Resp BP BP Pulse Ox 01/14/22 14:54 61 16 98 01/14/22 10:49 59 L 18 97 01/14/22 08:00 01/14/22 07:16 57 L 16 99 01/14/22 06:58 36.4 C L 55 L 18 92/65 L 96 01/14/22 04:08 36.4 C L 65 18 128/83 97 01/14/22 00:16 01/13/22 23:18 36.6 C 51 L 18 96/58 L 97 01/13/22 19:59 69 22 98 01/13/22 19:28 37 C 56 L 20 119/76 98 01/13/22 17:40 61 01/13/22 15:26 54 L 18 98 01/13/22 15:17 36.4 C L 54 L 17 95/62 L 98 O2 Del Method O2 Flow Rate 01/14/22 14:54 Nasal Cannula 2 01/14/22 10:49 Nasal Cannula 2 01/14/22 08:00 Nasal Cannula 2 01/14/22 07:16 Nasal Cannula 2 01/14/22 06:58 01/14/22 04:08 Nasal Cannula 01/14/22 00:16 Nasal Cannula 2.5 01/13/22 23:18 Nasal Cannula 01/13/22 19:59 Nasal Cannula 2 01/13/22 19:28 Nasal Cannula 01/13/22 17:40 01/13/22 15:26 Nasal Cannula 2 01/13/22 15:17 Nasal Cannula 2 Recovery Score Activity: Moves 4 extremities Respiration: Deep Breath/Cough Circulation: +/-20% PreAnes Value Consciousness: Fully Awake Oxygen Saturation: > 92% On Room Air Post Anesthesia Score: 10 Discharge Sedation Level of Care: Fast Track Phase II Post Sedation Plan On clinical assessment, the patient appears to have tolerated the sedation without complications. Patient is recovering as anticipated. Patient will continue to be monitored by nursing and may be discharged when sedation discharge criteria are met per below protocol. Upon Completions of procedure up to 15 minutes continue every 5 minute vital signs and the P.A.R. score; then discharge to a Phase I or Fast Track to Phase II per the following guidelines: * Discharge Patient to appropriate Phase II area if PAR is 8 or greater or return to pre- procedure baseline. The post - procedure orders will be as directed. * If PAR score is less than 8 or not return to pre-procedure baseline then patient will follow Phase I monitoring till PAR is reached for Phase II. The Phase I may be done in procedure room or may call to secure a Phase I area. * If naloxone or flumazenil are used for reversal, hold in Phase I for continued monitoring from when last reversal dose was given for a minimum of 60 minutes or longer pending the nurse and/or physician discretion of patient condition before discharge to Phase II. Please call the Sedation Physician to re-evaluate and complete post-note for discharge to Phase II area. Do NOT discharge from procedure sedation or Phase 1 until post- sedation evaluation note is complete by procedure /sedation MD Sedation Discharge Instructions to be given to the patient at discharge to home.
--- NOTE | 2022-01-14 15:06 | Cardiology Progress Note ---
Date of Service January 14, 2022 Assessment & Plan (1) Atrial fibrillation with RVR: (2) Chronic systolic heart failure: Plan 1. Atrial fibrillation: She remains in atrial fibrillation which will be permanent, however her rate is now controlled following AV jennifer ablation. 2. CHF: She has had significant left ventricular dysfunction, at the moment she is clinically not in heart failure. Her left ventricular dysfunction may in part be due to the atrial fibrillation and rapid heart rate. I am hopeful that rate control will help her heart failure. Biventricular pacing in her case is wider than her intrinsic rhythm, therefore would be preferable for her to have intrinsic rhythm and her device is programmed to allow that except with activities when it we will have to increase the rate. Hopefully her symptoms will improve. Admission and Anticipated Discharge Date Admission Date: January 05, 2022 Subjective She has been feeling better post ablation, she still gets short of breath but probably has other reasons for that. She is able to ambulate reasonably well without specific complaints. Physical Exam Physical Exam: Constitutional: Alert, cooperative and in no distress. HEENT: Unremarkable Neck: No jugular venous distention, carotid pulses are normal and equal bilaterally without bruits. Pulmonary: Clear to auscultation bilaterally. Cardiac: Regular rhythm with no murmur, gallop or rub. Abdomen: Soft, nontender with normal bowel sounds. Extremities: No edema. Distal pulses intact. Neurologic: No focal findings. Gait is steady. Skin: No rash, ecchymoses or petechiae. Results & Data ([facility]) Vital Signs (Past 12 Hours) Vital Signs Temp Pulse Resp BP Pulse Ox O2 Del Method O2 Flow Rate 01/14/22 14:54 61 16 98 Nasal Cannula 2 01/14/22 10:49 59 L 18 97 Nasal Cannula 2 01/14/22 08:00 Nasal Cannula 2 01/14/22 07:16 57 L 16 99 Nasal Cannula 2 01/14/22 06:58 36.4 C L 55 L 18 92/65 L 96 01/14/22 04:08 36.4 C L 65 18 128/83 97 Nasal Cannula Diagnostic Findings Telemetry: Predominantly junctional rhythm at around 60 bpm following ablation, underlying atrial fibrillation. Pacemaker evaluation January 13, 2022: Excellent pacing and sensing characteristics, appropriate function. PG Care Time/CCT Total # of Minutes Spent Total Time Spent with Patient: Total time spent is greater than 50% in coordination of care (as documented) at patient's floor/unit and/or counseling patient: Coding Level of Care Code 49275 Subseq Hosp Care Lvl 2 Diagnoses Atrial fibrillation with RVR I48.91 Chronic systolic heart failure I50.22 CPT Codes Pacemaker Multi Lead Programming - 28487 ([id number])
[2022-01-14] MEDS: DIGOXIN 0.125 MG TAB PO SCH (17:14)
[2022-01-14] MEDS: RIVAROXABAN 20 MG TAB PO SCH (17:14)
--- NOTE | 2022-01-14 18:58 | Hospitalist Progress Note ---
Date of Service January 14, 2022 Assessment & Plan (1) Atrial fibrillation with RVR: Plan: Despite increased metoprolol xl dose and digoxin (dig level wnl) she continued with poor rate control with nearly all HRs >100 at rest. There was no room for additional dose titration of metoprolol xl. Cardiology performed AV jennifer ablation on 01/12, pacer set to low of 50. In junctional and sometimes aflutter but due to AV node ablation, has ventricular rates in the 50s Continue digoxin now only for HF benefit, not for rate control Appreciate cardiology consult/recs. monitor on tele -ECHO tomorrow as per Cardiology to recheck LV function now that rates controlled (2) Dizziness: Plan: resolved. 2nd to orthostasis at time of admission. cont to hold Entresto but due to HF, may want to restart in near future if BPs can tolerate cont to hold Jardiance. suspect recent addition of Jardiance contributed to her dizziness and an element of intravascular volume depletion - will not resume jardiance at d/c and may not be able to resume Entresto no evidence of vertigo. CTA head/neck and CT head with old cerebellar lacune and mild vertebral artery disease but nothing high-grade and nothing acute. (3) Chronic systolic heart failure: Plan: ACUTE/CHRONIC systolic CHF diuresed with IV lasix Weight is down quite a bit now dry weight per records ~260 pounds daily weights fluid restrict 1500cc/day cont BB holding Entresto due to #1 holding jardiance most recent echo EF 20-25% repeating ECHO tomorrow ongoing issues with rapid a.fib likely contributing to decompensation-now AV node ablation should help with rate control -continue home lasix 80m po daily -continue to hold K+ for previous hyperkalemia which is now improved; ultimately will likely restart KCl but a lower dose of 10 meq -watch BMP in AM given rise in provider network analyst and K+ -continue digoxin for HF benefits (4) UTI (urinary tract infection): Plan: although urine cx has lactobacillus she has been symptomatic, has had wbc elevation, etc received rocephin and then changed to amox x 5 additional days (received IV rocephin x 2 doses prior)-last day of tx 01/15 I do not think she has pyelonephritis despite c/o right flank pain (5) Bipolar disorder: Plan: cont seroquel BID, trazodone cont buspar for anxiety (6) COPD (chronic obstructive pulmonary disease): Plan: no exacerbation at this time cont usual home inhalers cont NC O2 2 L cont combivent 1 puff QID (7) Diabetes type 2, controlled: Plan: a1c <6.5% nicely controlled chronically BSGs ac/hs (8) GERD (gastroesophageal reflux disease): Plan: - continue PPI (9) HTN (hypertension): Plan: BPs low on admission now improved continue metoprolol, but holding home Entresto continue po lasix (10) 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: Plan: ~1 year ago. Some edema at surgical scar. No obvious infectious signs on exam such as streaking erythema or drainage. (11) Nonischemic cardiomyopathy: Plan: -. Nonobstructive CAD per cath in 2006 as above (12) Chronic respiratory failure with hypoxia: Plan: She has severe COPD and restrictive lung disease. Continue home Anoro Ellipta. Continue home prn 2L O2. Titrate to >90%. Respiratory status appears at baseline. (13) Morbid obesity: Plan: BMI about 40 (14) Anticoagulant long-term use: Plan: Hx of PE and afib. Continue home Xarelto. Plan Dispo-continued stay, but much improved, likely discharge to home tomorrow Admission and Anticipated Discharge Date Admission Date: January 05, 2022 Subjective Pt feeling better today, still dyspneic with walking around. No other concerns. Tele with paced rhythm, rates 50s Review of Systems Review of Systems: All systems reviewed & are unremarkable except as noted in HPI & below Physical Exam Constitutional: WD/WN, vitals as above Eyes: + anicteric sclerae Neck: trachea midline, no thyromegaly Respiratory: normal respiratory effort, lungs clear to auscultation Cardiovascular: Rate/Rhythm: regular rate and + bradycardic Heart Sounds: no murmur Extremities: no edema Chest (Breasts): Chest: normal inspection of chest Gastrointestinal (Abdomen): normal bowel sounds, soft, nontender, no hepatosplenomegaly Musculoskeletal: Extremities: extremities normal to inspection; no cyanosis and no clubbing Skin: no rashes, warm and dry Neurologic: moves all extremities; no focal motor deficits Lymphatic: no lymphedema Results & Data Results & Data ([facility]) Vital Signs (Past 12 Hours) Vital Signs Temp Pulse Pulse Resp BP Pulse Ox O2 Del Method 01/14/22 15:43 36.8 C 61 20 100/68 97 01/14/22 17:14 62 01/14/22 14:54 61 16 98 Nasal Cannula 01/14/22 10:49 59 L 18 97 Nasal Cannula 01/14/22 08:00 Nasal Cannula 01/14/22 07:16 57 L 16 99 Nasal Cannula 01/14/22 06:58 36.4 C L 55 L 18 92/65 L 96 O2 Flow Rate 01/14/22 15:43 01/14/22 17:14 01/14/22 14:54 2 01/14/22 10:49 2 01/14/22 08:00 2 01/14/22 07:16 2 01/14/22 06:58 Laboratory Results 01/13/22 05:44 01/14/22 05:56 PG Care Time/CCT Total # of Minutes Spent Total Time Spent with Patient: Total time spent is greater than 50% in coordination of care (as documented) at patient's floor/unit and/or counseling patient: Coding Level of Care Code 73768 Subseq Hosp Care Lvl 2 Diagnoses Atrial fibrillation with RVR I48.91 Dizziness R42 Chronic systolic heart failure I50.22 UTI (urinary tract infection) N39.0 Bipolar disorder F31.9 COPD (chronic obstructive pulmonary disease) J44.9 Diabetes type 2, controlled E11.8 Diabetes mellitus alf insulin use: without termite control technician use Diabetes mellitus complication status: with unspecified complications GERD (gastroesophageal reflux disease) K21.9 Esophagitis presence: esophagitis presence not specified HTN (hypertension) I10 Hypertension type: essential hypertension 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 T84.623A Nonischemic cardiomyopathy I42.8 Chronic respiratory failure with hypoxia J96.11 Morbid obesity E66.01 Anticoagulant long-term use Z79.01 (1) Diabetes type 2, controlled Diabetes mellitus termite control technician insulin use: without termite control technician use Diabetes ganesh litus complication status: with unspecified complications Qualified Code(s): E11.8 - Type 2 diabetes mellitus with unspecified complications (2) GERD (gastroesophageal reflux disease) Esophagitis presence: esophagitis presence not specified Qualified Code(s): K21.9 - Gastro-esophageal reflux disease without esophagitis (3) HTN (hypertension) Hypertension type: essential hypertension Qualified Code(s): I10 - Essential (primary) hypertension
[2022-01-14] MEDS: traMADol HCL 50 MG TABLET PO PRN (20:01)
[2022-01-14] MEDS: traZODone HCL 100 MG TAB PO SCH (20:02)
[2022-01-14] MEDS: QUEtiapine FUMARATE 200 MG TAB PO SCH (20:03)
--- NOTE | 2022-01-14 22:40 | Electrocardiogram Report ---
Test Reason : Blood Pressure : / mmHG Vent. Rate : 061 BPM Atrial Rate : 000 BPM P-R Int : 000 ms QRS Dur : 092 ms QT Int : 404 ms P-R-T Axes : 000 109 134 degrees QTc Int : 406 ms Junctional rhythm Rightward axis Low voltage QRS Nonspecific ST and T wave abnormality Abnormal ECG When compared with ECG of 05-JAN-2022 11:32, Junctional rhythm has replaced Atrial fibrillation Vent. rate has decreased BY 66 BPM Nonspecific T wave abnormality no longer evident in Inferior leads Inverted T waves have replaced nonspecific T wave abnormality in Lateral leads Confirmed by Noah Starks ([id number]) on 01/14/2022 10:40:27 PM Referred By: REFERRED SELF Confirmed By:Noah Starks
[2022-01-14] MEDS: hydrOXYzine HCl 25 MG TAB PO PRN (22:45)
[2022-01-15] MEDS: ALBUTEROL 0.083% NEBU SOLN 3 ML VIAL NEB SCH ×4 (07:22→19:03)
[2022-01-15] MEDS: PREGABALIN 150 MG CAP PO SCH ×2 (08:42→19:54)
[2022-01-15] MEDS: DOCUSATE SODIUM 100 MG CAP PO SCH ×2 (08:42→19:55)
[2022-01-15] MEDS: UMECLIDINIUM/VILANTEROL 62.5/25MCG 7 PUFFS/INHALER INH SCH (08:42)
[2022-01-15] MEDS: busPIRone 5 MG TAB PO SCH ×3 (08:42→19:55)
[2022-01-15] MEDS: AMOXICILLIN 500 MG CAP PO SCH ×3 (08:42→19:55)
[2022-01-15] MEDS: METOPROLOL SUCC 25MG EXT REL TAB PO SCH (08:43)
[2022-01-15] MEDS: METOPROLOL SUCC 50MG EXT REL TAB PO SCH (08:43)
[2022-01-15 08:44] LABS: BUN Creatinine Ratio 27.1 (10-20); Creatinine Clr Calc Pharmacy 84.6 ml/min; Est GFR (African American) 74.5 ml/min; Est GFR (Non-African American) 64.3 ml/min; Magnesium 2.1 mg/dl (1.7-2.4); Potassium 4.2 mmol/L (3.5-5.1)
[2022-01-15] MEDS: PANTOprazole 40 MG TAB PO SCH (08:44)
[2022-01-15] MEDS: FUROSEMIDE 80 MG TAB PO SCH (08:44)
[2022-01-15] MEDS: QUEtiapine FUMARATE 100 MG TABLET PO SCH (08:44)
[2022-01-15] MEDS: ATORVASTATIN 10 MG TAB PO SCH (08:44)
[2022-01-15] MEDS: RIVAROXABAN 20 MG TAB PO SCH (16:01)
[2022-01-15] MEDS: DIGOXIN 0.125 MG TAB PO SCH (16:01)
--- NOTE | 2022-01-15 19:05 | XCELERA ---
[id number]
[2022-01-15] MEDS: traZODone HCL 100 MG TAB PO SCH (19:55)
[2022-01-15] MEDS: traMADol HCL 50 MG TABLET PO PRN (19:55)
[2022-01-15] MEDS: QUEtiapine FUMARATE 200 MG TAB PO SCH (19:56)
--- NOTE | 2022-01-15 20:27 | Hospitalist Progress Note ---
Date of Service January 15, 2022 Assessment & Plan (1) Atrial fibrillation with RVR: Plan: Despite increased metoprolol xl dose and digoxin (dig level wnl) she continued with poor rate control with nearly all HRs >100 at rest. There was no room for additional dose titration of metoprolol xl. Cardiology performed AV jennifer ablation on 01/12, pacer set to low of 50. In junctional and sometimes aflutter but due to AV node ablation, has ventricular rates in the 50s Continue digoxin now only for HF benefit, not for rate control Appreciate cardiology consult/recs. monitor on tele -ECHO repeat 01/15 as per Cardiology to recheck LV function now that rates controlled shows slight improvement at EF 30-35% (up from 25-30%) and mild pericardial effusion (previous was moderate) (2) Dizziness: Plan: resolved. 2nd to orthostasis at time of admission. cont to hold Entresto but due to HF, may want to restart in near future if BPs can tolerate cont to hold Jardiance. suspect recent addition of Jardiance contributed to her dizziness and an element of intravascular volume depletion - will not resume jardiance at d/c and may not be able to resume Entresto no evidence of vertigo. CTA head/neck and CT head with old cerebellar lacune and mild vertebral artery disease but nothing high-grade and nothing acute. (3) Chronic systolic heart failure: Plan: ACUTE/CHRONIC systolic CHF diuresed with IV lasix Weight is down quite a bit now dry weight per records ~260 pounds daily weights fluid restrict 1500cc/day cont BB holding Entresto due to #1 holding jardiance most recent echo EF 20-25% repeat ECHO now slightly improved as above ongoing issues with rapid a.fib likely contributing to decompensation-now AV node ablation should help with rate control -continue home lasix 80m po daily -continue to hold K+ for previous hyperkalemia which is now improved; ultimately will likely restart KCl but a lower dose of 10 meq -watch BMP in AM given rise in scourer and K+ -continue digoxin for HF benefits (4) UTI (urinary tract infection): Plan: although urine cx has lactobacillus she has been symptomatic, has had wbc elevation, etc received rocephin and then changed to amox x 5 additional days (received IV rocephin x 2 doses prior)-last day of tx 01/15 I do not think she has pyelonephritis despite c/o right flank pain (5) Bipolar disorder: Plan: cont seroquel BID, trazodone cont buspar for anxiety (6) COPD (chronic obstructive pulmonary disease): Plan: no exacerbation at this time cont usual home inhalers cont NC O2 2 L cont combivent 1 puff QID (7) Diabetes type 2, controlled: Plan: a1c <6.5% nicely controlled chronically BSGs ac/hs (8) GERD (gastroesophageal reflux disease): Plan: - continue PPI (9) HTN (hypertension): Plan: BPs low on admission now improved continue metoprolol, but holding home Entresto continue po lasix (10) 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: Plan: ~1 year ago. Some edema at surgical scar. No obvious infectious signs on exam such as streaking erythema or drainage. (11) Nonischemic cardiomyopathy: Plan: -. Nonobstructive CAD per cath in 2006 as above (12) Chronic respiratory failure with hypoxia: Plan: She has severe COPD and restrictive lung disease. Continue home Anoro Ellipta. Continue home prn 2L O2. Titrate to >90%. Respiratory status appears at baseline. (13) Morbid obesity: Plan: BMI about 40 (14) Anticoagulant long-term use: Plan: Hx of PE and afib. Continue home Xarelto. Plan Dispo-continued stay, but much improved, likely discharge to home tomorrow Add senna for constipation Admission and Anticipated Discharge Date Admission Date: January 05, 2022 Subjective Pt had a large BM this evening but was straining. Feels she is going to feel better once she gets home but wasn't ready togo home yet today. Tele with paced rhythm, rates 50-60s Review of Systems Review of Systems: All systems reviewed & are unremarkable except as noted in HPI & below Physical Exam Constitutional: WD/WN, vitals as above Eyes: + anicteric sclerae Neck: trachea midline, no thyromegaly Respiratory: normal respiratory effort, lungs clear to auscultation Cardiovascular: Rate/Rhythm: regular rate and + bradycardic Heart Sounds: no murmur Extremities: no edema Chest (Breasts): Chest: normal inspection of chest Gastrointestinal (Abdomen): normal bowel sounds, soft, nontender, no hepatosplenomegaly Musculoskeletal: Extremities: extremities normal to inspection; no cyanosis and no clubbing Skin: no rashes, warm and dry Neurologic: moves all extremities; no focal motor deficits Lymphatic: no lymphedema Results & Data Results & Data ([facility]) Vital Signs (Past 12 Hours) Vital Signs Temp Pulse Pulse Resp BP BP Pulse Ox 01/15/22 20:21 36.3 C L 65 16 109/77 98 01/15/22 20:00 01/15/22 19:03 64 16 96 01/15/22 16:01 59 L 01/15/22 15:47 36.5 C 64 20 112/78 99 01/15/22 14:27 63 18 96 01/15/22 11:39 37.0 C 60 20 99/63 L 99 01/15/22 11:33 80 18 98 O2 Del Method O2 Flow Rate 01/15/22 20:21 Nasal Cannula 2 01/15/22 20:00 Nasal Cannula 2 01/15/22 19:03 Nasal Cannula 2 01/15/22 16:01 01/15/22 15:47 Nasal Cannula 01/15/22 14:27 Nasal Cannula 2 01/15/22 11:39 Nasal Cannula 01/15/22 11:33 Nasal Cannula 2 Laboratory Results 01/15/22 Range/Units 07:49 Sodium 133 L (136-145) mmol/L Potassium 4.2 (3.5-5.1) mmol/L Chloride 98 (98-107) mmol/L Carbon Dioxide 28 (21-32) mmol/L Anion Gap 7 (3-11) BUN 26 H (6-23) mg/dl Creatinine 0.96 (0.6-1.2) mg/dl Est Cr Clr Drug Dosing 84.6 ml/min Est GFR ( Amer) 74.5 ml/min Est GFR (Non-Af Amer) 64.3 ml/min BUN/Creatinine Ratio 27.1 H (10-20) Glucose 94 (70-99(Fasting)) mg/dl Calcium 9.0 (8.5-10.1) mg/dl Magnesium 2.1 (1.7-2.4) mg/dl PG Care Time/CCT Total # of Minutes Spent Total Time Spent with Patient: Total time spent is greater than 50% in coordination of care (as documented) at patient's floor/unit and/or counseling patient: Coding Level of Care Code 07680 Subseq Hosp Care Lvl 2 Diagnoses Atrial fibrillation with RVR I48.91 Dizziness R42 Chronic systolic heart failure I50.22 UTI (urinary tract infection) N39.0 Bipolar disorder F31.9 COPD (chronic obstructive pulmonary disease) J44.9 Diabetes type 2, controlled E11.8 Diabetes mellitus complication status: with unspecified complications Diabetes mellitus speech clinician insulin use: without correction use GERD (gastroesophageal reflux disease) K21.9 Esophagitis presence: esophagitis presence not specified HTN (hypertension) I10 Hypertension type: essential hypertension 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 T84.623A Nonischemic cardiomyopathy I42.8 Chronic respiratory failure with hypoxia J96.11 Morbid obesity E66.01 Anticoagulant long-term use Z79.01 (1) Diabetes type 2, controlled Diabetes mellitus complication status: with unspecified complications Diabetes mellitus speech clinician insulin use: without correction use Qualified C ode(s): E11.8 - Type 2 diabetes mellitus with unspecified complications (2) GERD (gastroesophageal reflux disease) Esophagitis presence: esophagitis presence not specified Qualified Code(s): K21.9 - Gastro-esophageal reflux disease without esophagitis (3) HTN (hypertension) Hypertension type: essential hypertension Qualified Code(s): I10 - Essential (primary) hypertension
[2022-01-15] MEDS ORDERED: SENNA 8.6 MG TAB PO SCH (21:00)
[2022-01-15] MEDS: hydrOXYzine HCl 25 MG TAB PO PRN (21:18)
[2022-01-16] MEDS: ALBUTEROL 0.083% NEBU SOLN 3 ML VIAL NEB SCH ×3 (07:08→14:21)
[2022-01-16 07:16] LABS: BUN Creatinine Ratio 22.9 (10-20); Calcium 9.3 mg/dl (8.5-10.1); Creatinine Clr Calc Pharmacy 84.6 ml/min; Est GFR (African American) 74.5 ml/min; Est GFR (Non-African American) 64.3 ml/min; Magnesium 2.2 mg/dl (1.7-2.4); Potassium 4.3 mmol/L (3.5-5.1)
[2022-01-16] MEDS: ATORVASTATIN 10 MG TAB PO SCH (08:05)
[2022-01-16] MEDS: METOPROLOL SUCC 50MG EXT REL TAB PO SCH (08:05)
[2022-01-16] MEDS: METOPROLOL SUCC 25MG EXT REL TAB PO SCH (08:05)
[2022-01-16] MEDS: FUROSEMIDE 80 MG TAB PO SCH (08:05)
[2022-01-16] MEDS: QUEtiapine FUMARATE 100 MG TABLET PO SCH (08:05)
[2022-01-16] MEDS: busPIRone 5 MG TAB PO SCH ×2 (08:05→13:41)
[2022-01-16] MEDS: DOCUSATE SODIUM 100 MG CAP PO SCH (08:05)
[2022-01-16] MEDS: PREGABALIN 150 MG CAP PO SCH (08:05)
[2022-01-16] MEDS: UMECLIDINIUM/VILANTEROL 62.5/25MCG 7 PUFFS/INHALER INH SCH (08:05)
[2022-01-16] MEDS: PANTOprazole 40 MG TAB PO SCH (08:05)
--- NOTE | 2022-01-16 13:40 | Discharge Summary ---
Date of Service January 16, 2022 Admission HPI Per Admitting Provider 61 year old female w/ HTN, HLD, preDM, chronic hypoxia on prn 2L O2, nonischemic CMP w/ EF 25-30% w/ BiV pacer, schizoaffective disorder, bipolar disorder, severe anxiety, and frequent hospital admissions for CHF exacerbations (most recently 1 month ago) who presented w/ generalized weakness and lightheadedness 7AM this morning when she woke up. She felt shaky flustered and as if she was having a severe panic attack. He felt disoriented and slight difficulty w/ word finding. She notes that she has had similar but milder word finding difficulties intermittently, usually episodes lasting days, in the past several years. Both her generalized weakness and the word finding difficulty improved several hours later, prior to coming to the hospital. She still endorses slight word-finding difficulty. Denies dysarthria though she at baseline does not pronounce words perfectly. She denies prior hx of stroke or CA. Per chart review, no recent prior MRI brain. She believes that recent tapering of her home prn O2 down from 3L to 2L has exacerbated her anxiety. Denies recent psych medication changes. Jardiance is recent new addition. Notable social hx: etoh: 10 oz of Vodka on some days. Drinks medical marijuana oils. Denies dysuria, fever/chills. Sputum yellow/brown, chronic. Denies diarrhea. [place] well prior to today. Denies sick contact. Has aide at home. Patient does have a left tibial fracture that had infection a year ago and required I&D. The surgical scar swells intermittently; no drainage. Denies SOB. Had some increased feet swelling earlier today. 3lb wt gain from yesterday. Ate some albanian fries this week. ED course: 500mL bolus (BP 86/50x1, resolved). Lasix 80mg IV (several pounds above dry weight). Ativan 0.5mg IV. Principal Diagnosis Acute on chronic HFrEF, Rapid atrial fibrillation, Acute encephalopathy, Orthostasis from medication effect Discharge Exam Constitutional WD/WN, vitals as above + obese Eyes + anicteric sclerae Neck trachea midline, no thyromegaly Respiratory normal respiratory effort, lungs clear to auscultation Cardiovascular Rate/Rhythm: regular rate and + bradycardic Heart Sounds: no murmur Extremities: no edema Chest (Breasts) Chest: normal inspection of chest Gastrointestinal (Abdomen) normal bowel sounds, soft, nontender, no hepatosplenomegaly Musculoskeletal Extremities: extremities normal to inspection; no cyanosis and no clubbing Skin no rashes, warm and dry Neurologic moves all extremities; no focal motor deficits Lymphatic no lymphedema Discharge Data Allergies Allergy/AdvReac Type Severity Reaction Status Date / Time fentanyl Allergy Mild RASH,ITCHIN Verified 01/05/22 16:11 G Consultations 01/05/22 17:16 ED Decision to Admit Stat 01/07/22 11:18 Consult Cardiology Routine 01/07/22 14:09 Consult Orthopedic Surgery Routine Procedures Performed Operation Date: 01/12/22 15:00 Actual Procedures p AV Node Ablation - Ron Christensen MD s Interrogation of ICD - Ron Christensen MD Ordered Studies 01/06/22 12:46 CT head/brain wo con Routine CTA head w con [CT angio head w con] Routine CTA neck with con [CT angio neck with con] Routine 01/12/22 14:45 EP Lab Images for PACS ONCE Hospital Course (1) Atrial fibrillation with RVR: Despite increased metoprolol xl dose and digoxin (dig level wnl) she continued with poor rate control with nearly all HRs >100 at rest. There was no room for additional dose titration of metoprolol xl. Cardiology performed AV jennifer ablation on 01/12, pacer set to low of 50. In junctional and sometimes aflutter but due to AV node ablation, has ventricular rates in the 50s Continue digoxin now only for HF benefit, not for rate control Revert back to home dose of Toprol XL 100mg po daily given lower BPs Appreciate cardiology consult/recs. -ECHO repeat 01/15 as per Cardiology to recheck LV function now that rates controlled shows slight improvement at EF 30-35% (up from 25-30%) and mild pericardial effusion (previous was moderate) f/u Cardiology as outpt (2) Dizziness: resolved. 2nd to orthostasis at time of admission. cont to hold Entresto but due to HF, may want to restart in near future if BPs can tolerate-defer to CHF clinic in future cont to hold Jardiance on discharge suspect recent addition of Jardiance contributed to her dizziness and an element of intravascular volume depletion no evidence of vertigo. CTA head/neck and CT head with old cerebellar lacune and mild vertebral artery disease but nothing high-grade and nothing acute. (3) Chronic systolic heart failure: ACUTE/CHRONIC systolic CHF diuresed with IV lasix Weight is down a bit now and symptoms of dyspnea improved since AV node ablation also dry weight per records ~260 pounds daily weights at home fluid restrict 1500cc/day cont BB holding Entresto due to #1 holding jardiance most recent echo EF 20-25% repeat ECHO now slightly improved as above ongoing issues with rapid a.fib likely contributing to decompensation-now AV node ablation should help with rate control -continue home lasix 80m po daily -continue to hold K+ for previous hyperkalemia which is now improved; ultimately will likely restart KCl but a lower dose of 10 meq perhaps-defer to CHF clinic to check labs after discharge -continue digoxin for HF benefits -continue Toprol XL (4) UTI (urinary tract infection): although urine cx has lactobacillus she has been symptomatic, has had wbc elevation, etc received rocephin and then changed to amox x 5 additional days (received IV rocephin x 2 doses prior)-last day of tx 01/15 I do not think she has pyelonephritis despite c/o right flank pain (5) Bipolar disorder: cont seroquel BID, trazodone added buspar for anxiety (6) COPD (chronic obstructive pulmonary disease): no exacerbation at this time cont usual home inhalers cont NC O2 2 L cont combivent 1 puff QID (7) Diabetes type 2, controlled: a1c <6.5% nicely controlled chronically BSGs ac/hs (8) GERD (gastroesophageal reflux disease): - continue PPI (9) HTN (hypertension): BPs low on admission now improved continue metoprolol, but holding home Entresto continue po lasix (10) 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: ~1 year ago. Some edema at surgical scar. No obvious infectious signs on exam such as streaking erythema or drainage. (11) Nonischemic cardiomyopathy: -. Nonobstructive CAD per cath in 2006 as above (12) Chronic respiratory failure with hypoxia: She has severe COPD and restrictive lung disease. Continue home Anoro Ellipta. Continue home prn 2L O2. Titrate to >90%. Respiratory status appears at baseline. (13) Morbid obesity: BMI about 40 (14) Anticoagulant long-term use: Hx of PE and afib. Continue home Xarelto. Plan Dispo-dc to home with home health today Home Health Attestation I certify that this patient is under my care and that I, or a physicians insurance sales assistant working with me, had a face to-face encounter that meets the home health [id number] encounter requirements with this patient. The encounter with the patient was in whole, or in part, for the following medical condition, which is the primary reason for home health care (list medical condition): Afib I certify that, based on my findings, the following services are medically necessary home health services: My clinical findings support the need for the above services because: PT Assessment for Endurance / Balance / Strength PT Eval for Safety and Mobility PT Eval for Safety, Gait Training, Assistive Devices PT Gait and Balance Training, Strengthening and Safety Further, I certify that my clinical findings support that this patient is homebound (i.e. absences from home require considerable and taxing effort and are for medical reasons or evangelical services or infrequently or of short duration when for other reasons) because: Poor Endurance; SOB Minimal Exertion Supportive Aid - Walker Certification for Home Health Services: Based on the above findings, I certify that this patient is confined to the home and needs intermittent usp care, physical therapy and/or speech therapy or continues to need occupational therapy. The patient is under my care, and I have initiated the establishment of the plan of care. This patient will be followed by a physician who will periodically review the plan of care. Total Time Total Time Spent Total Time Spent (In Minutes): 35 min Discharge Plan Discharge Items Patient Disposition: Home - Home Health Services Reason For Visit: ALTERED MENTAL STATUS Discharge Diagnosis: Acute on chronic systolic CHF, Rapid atrial fibrillation Condition on Discharge: Fair Activity: Resume your previous activity Non-emergency contact: Primary Care Provider and New Product Trainer Call non-emergency contact if: you have any medication questions and your symptoms worsen Follow-up/Referrals: Antonio Oliver MD [Primary Care Provider] - (Follow up within 1-2 weeks.) Catalina Almanza PA-C [Physician Supervisor Gas Meter Repair] - 01/18/22 2:00 pm Diet: Low Sodium (2gm) Fluids: 1500ml (6 cups) Addtl Attending Provider Instructions: You were admitted with confusion, dizziness, and were overloaded with fluid which was removed with diuretics. Your heart rate was too fast and you had a heart AV node ablation to slow down your heart rate which was successful. Your Jardiance and Entresto have been temporarily STOPPED due to your low blood pressures. These might be able to be restarted in the future if Re Almanza feels necessary. Your potassium tablet was also STOPPED due to high potassium. Please make sure that those pills are NO LONGER in your bubble packs from your mail order pharmacy. Please follow up with Catalina Almanza of the CHF clinic as scheduled. Call your Primary Care doctor if any of the following symptoms or problems start or get worse: * Shortness of breath or difficulty breathing * Wake up at night short of breath * Chest pain * Cough * Swelling of your hands, feet, or legs * More fatigued or tired with your normal activity * Palpitations - sudden fast heart beats WEIGHT * Weigh yourself every morning after using the bathroom. * Use the same scale. * Wear the same amount of clothing. * Write your weight down on a chart. * Call your Primary Care doctor if you gain more than 2-3 pounds in 1-2 days. MEDICATIONS * Use this discharge instruction sheet for medication instructions. * Take your medications at the time your doctor ordered. * Do not skip a dose of your medicines. * If you miss a dose of medicine, take it as soon as possible, but DO NOT DOUBLE A DOSE. * Read your medicine information when you get home. * Know all of the side effects of your medicine. If in doubt, ask your pharmacist * Call your Primary Care doctor's office if you have any side effects. * Be sure all of your doctors know what medicine and herbs you take (including cold, flu, and herbal medicine). Take the following with you to your follow-up doctor appointments: * Weight Chart * Medication List * List of questions Do not drink excessive alcohol, beer or wine. Pending Studies at Discharge: No Stand-Alone Forms: My Sarta, Smoking Cessation Medications and DC Order Prescriptions: New buspirone 5 mg Tablet 5 mg PO TID Qty: 90 0RF Continued metformin 500 mg tablet 500 mg PO BID Qty: 60 5RF quetiapine [Seroquel] 400 mg tablet 400 mg PO HS (DME) Portable Oxygen Misc See Rx Instructions .MEDSUPPLY Qty: 1 0RF Rx Instructions: Oxygen 3 liters continuous with portable concentrator. MARGE 99 atorvastatin 10 mg tablet 10 mg PO QAM Qty: 90 3RF digoxin 125 mcg (0.125 mg) tablet 125 mcg PO QAM Qty: 90 3RF pregabalin 150 mg capsule 150 mg PO BID 30 Days Qty: 60 5RF docusate sodium [Colace] 100 mg capsule 100 mg PO BID Qty: 180 3RF (DME) Incentive Spirometer Misc See Rx Instructions .MEDSUPPLY Qty: 1 0RF Rx Instructions: As directed diclofenac sodium [Voltaren Arthritis Pain] 1 % gel 2 g topical QID PRN (Reason: arthritis) trazodone 100 mg tablet 200 mg PO HS quetiapine [Seroquel] 100 mg Tablet 100 mg PO QAM (DME) Oxygen Home Liters Per Minute See Rx Instructions .ROUTE .MEDSUPPLY Qty: 1 0RF Rx Instructions: As directed - 2 liters continuously magnesium oxide 400 mg (241.3 mg magnesium) tablet 400 mg PO QAM hydroxyzine HCl 50 mg Tablet 50 mg PO QPM PRN (Reason: Anxiety) furosemide 40 mg tablet 80 mg PO QAM metoprolol succinate 100 mg tablet extended release 24 hr 100 mg PO QAM tramadol 50 mg tablet 50 mg PO QAM PRN (Reason: pain) omeprazole 20 mg capsule,delayed release(DR/EC) 20 mg PO QAM Anoro Ellipta 62.5-25 mcg/actuation blister with device 1 inh INH QAM Changed Xarelto 20 mg tablet 20 mg PO QDD Qty: 90 2RF Rx Instructions: take with food at dinner time Discontinued Entresto 24-26 mg tablet 1 tab PO BID Qty: 60 2RF potassium chloride 20 mEq tablet extended release 40 meq PO QAM Jardiance 10 mg tablet 10 mg PO QAM Discharge Orders: Discharge Order (Routine); Ordered 01/16/22 Ordered By: Monserrat Jackson/Other Patient Handouts: Prediabetes, 5 Steps for Eating Healthier Admission Data Admit Date/Time: 01/05/22 17:20 Attending Provider: Monserrat Hein Admit Provider: Torin Hardwick Primary Care Provider: Antonio Oliver V. Other Providers: Torin Hardwick ; Guilherme Pelayo ; [facility],Home Healthcare ; [address] Coding Level of Care Code D/C DAY MANAGEMENT >30 MINS Diagnoses Atrial fibrillation with RVR I48.91 Dizziness R42 Chronic systolic heart failure I50.22 UTI (urinary tract infection) N39.0 Bipolar disorder F31.9 COPD (chronic obstructive pulmonary disease) J44.9 Diabetes type 2, controlled E11.8 Diabetes mellitus complication status: with unspecified complications Diabetes mellitus care home insulin use: without computer terminal operator use GERD (gastroesophageal reflux disease) K21.9 Esophagitis presence: esophagitis presence not specified HTN (hypertension) I10 Hypertension type: essential hypertension 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 T84.623A Nonischemic cardiomyopathy I42.8 Chronic respiratory failure with hypoxia J96.11 Morbid obesity E66.01 Anticoagulant long-term use Z79.01
== END 2022-01-16 14:52 | disposition home health service (06) | DRG 273 ==
LOC: ED 11:17 → EDINP 17:20 → SUATTDRO 17:20 → 2S 01-06 00:14
DX: E66.01 Morbid (severe) obesity due to excess calories; J96.11 Chronic respiratory failure with hypoxia; I48.91 Unspecified atrial fibrillation; I34.0 Nonrheumatic mitral (valve) insufficiency; I48.92 Unspecified atrial flutter; Z79.01 Long term (current) use of anticoagulants; Z86.711 Personal history of pulmonary embolism; Z95.810 Presence of automatic (implantable) cardiac defibrillator; Z79.84 Long term (current) use of oral hypoglycemic drugs; I42.8 Other cardiomyopathies; I50.23 Acute on chronic systolic (congestive) heart failure; Z87.891 Personal history of nicotine dependence; N39.0 Urinary tract infection, site not specified; G93.40 Encephalopathy, unspecified; F25.0 Schizoaffective disorder, bipolar type; R73.03 Prediabetes; Z99.81 Dependence on supplemental oxygen; L70.8 Other acne; F10.20 Alcohol dependence, uncomplicated; J44.9 Chronic obstructive pulmonary disease, unspecified; I31.3 Pericardial effusion (noninflammatory); G60.8 Other hereditary and idiopathic neuropathies; I95.2 Hypotension due to drugs; Z68.41 Body mass index [BMI] 40.0-44.9, adult; I47.2 Ventricular tachycardia

== ENCOUNTER 2022-01-17 02:36 | Inpatient (IN) ==
[2022-01-17] MEDS ORDERED: LORazepam 2 MG/1 ML VIAL IV STA (02:47)
--- NOTE | 2022-01-17 02:51 | Emergency Department Note ---
History of Present Illness General Chief complaint: Cardiac Assessment Time Seen by Provider: 01/17/22 02:40 History of Present Illness This 61-year-old presents to the ER complaining of brief episode of chest pain and feeling shaky tonight that has now resolved Location: Generalized Quality: Shaky Severity: Moderate Duration: Tonight Timing: Tonight Context: Patient was concerned and came in Modifying factors: better with nothing; worse with nothing Patient states she is feeling better now. Patient denies current chest pain, dyspnea, abdominal pain, fever, chills, flulike illness. Home Medications Medication Instructions Recorded Confirmed Type trazodone 100 mg tablet 200 mg PO HS 10/07/18 01/05/22 History metformin 500 mg tablet 500 mg PO BID #60 tabs 12/15/18 01/05/22 Rx quetiapine 100 mg tablet (Seroquel) 100 mg PO QAM 01/02/19 01/05/22 History Oxygen Home #1 ea 05/09/19 12/17/21 Rx docusate sodium 100 mg capsule 100 mg PO BID #180 caps 06/28/19 01/05/22 Rx (Colace) quetiapine 400 mg tablet (Seroquel) 400 mg PO HS 07/05/19 01/05/22 History Portable Oxygen #1 ea 07/29/20 12/17/21 Rx magnesium oxide 400 mg (241.3 mg 400 mg PO QAM 03/24/21 01/05/22 History magnesium) tablet atorvastatin 10 mg tablet 10 mg PO QAM #90 tabs 04/21/21 01/05/22 Rx hydroxyzine HCl 50 mg tablet 50 mg PO QPM PRN Anxiety 05/06/21 01/05/22 History digoxin 125 mcg (0.125 mg) tablet 125 mcg PO QAM #90 tabs 06/16/21 01/05/22 Rx pregabalin 150 mg capsule 150 mg PO BID 30 days #60 caps 08/10/21 01/05/22 Rx Incentive Spirometer #1 ea 11/16/21 12/17/21 Rx diclofenac sodium 1 % topical gel 2 g topical QID PRN arthritis 12/10/21 01/05/22 History (Voltaren Arthritis Pain) furosemide 40 mg tablet 80 mg PO QAM 12/17/21 01/05/22 History metoprolol succinate 100 mg 100 mg PO QAM 12/17/21 01/05/22 History tablet,extended release 24 hr omeprazole 20 mg capsule,delayed 20 mg PO QAM 12/17/21 01/05/22 History release tramadol 50 mg tablet 50 mg PO QAM PRN pain 12/17/21 01/05/22 History umeclidinium 62.5 mcg-vilanterol 1 inh inhalation QAM 12/17/21 01/05/22 History 25 mcg/actuation powdr for inhalation (Anoro Ellipta) buspirone 5 mg tablet 5 mg PO TID #90 tabs 01/16/22 Rx rivaroxaban 20 mg tablet (Xarelto) 20 mg PO QDD #90 tabs 01/16/22 01/05/22 Rx Allergies Allergy/AdvReac Type Severity Reaction Status Date / Time fentanyl Allergy Mild RASH,ITCHIN Verified 01/05/22 16:11 G Past Med/Surg History Medical History KIRSTIN (acute kidney injury) pt unaware Asthma inhaler prn Atrial fibrillation on xarelto/metoprolol/digoxin--follows with Dr. 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 pt denies History of pulmonary embolism HTN (hypertension) 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 unsure type of i nfection Left tibial fracture Memory impairment Morbid obesity On anticoagulant therapy xarelto daily On home oxygen therapy 2L N/C at all times Pericardial effusion Peripheral neuropathy PTSD (post-traumatic stress disorder) Pulmonary embolism 2013 while living in [place] - currently on Xarelto Pulmonary hypertension Restrictive lung disease 2L NC O2 continuous Schizoaffective disorder Severe mitral regurgitation Small bowel obstruction hx of - resolved with NG suction Ventricular arrhythmia Vitamin D deficiency Surgical History AICD (automatic cardioverter/defibrillator) present ~2006 - [facility] - ICD - meditronic - Follows Dr. Pelayo History of cardiac cath x2?-- - no stents - ICD placed 2006 - follows Dr. Pelayo History of decompression of both ulnar nerves History of eye surgery left History of hernia surgery x2 History of incision and drainage (~09/30/20) left tibia History of open reduction and internal fixation (ORIF) procedure left tibia--hardware in place History of tooth extraction partial upper S/P ORIF (open reduction internal fixation) fracture ankle, left--hardware in place S/P tubal ligation Family History Mother , in her 70s Congestive heart failure (CHF) Breast cancer Lung cancer from this Father No problems noted. Grandmother (Paternal) Stroke Other Hypertension No family history of adverse response to anesthesia Ulcerative colitis Denies family history of Colon cancer Ovarian cancer Prostate cancer Myocardial infarction Social History Smoking Status: Former smoker Tobacco Type: Cigarettes Years Smoked: 30; Second Hand Exposure: No; Hx Alcohol Use: Yes Alcohol type: hard liquor Alcohol Intake Frequency Comment: weekends only Hx Substance Use: Yes Substance Use Type Other:: Marijuana oil for pain/anxiety - has medical card Preferred Language: Amharic Communication Ability: Effective Visual Impairment: No Limitations Hearing Ability: Normal Rotor Balancer Required: No Beliefs That Will Affect Care: None marital status: marital status details: 5 kids Current Living Situation: Alone Current Living Situation Comment: pt has aide 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: 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; 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; was in [employer] x 7 yr How many Children do You have: 5 other: lives in [place] Feels Safe at Home: Yes Childhood Exposure to Second-Hand Smoke: Yes Dental Care, Regularly: No Physical Activity Frequency: Does not Exercise Assistive Devices: Bedside Commode, Cane and Walker Review of Systems A total of 10 systems reviewed and were otherwise negative Physical Exam Vital Signs Vital Signs - 24 hr 01/17/22 02:49 01/17/22 02:55 01/17/22 03:00 Temperature 36.4 C L Temperature Source Oral Pulse Rate 72 64 Pulse Rate from SpO2 Sensor 64 Respiratory Rate 28 H 17 Respiratory Effort / Characteristics Spontaneous Spontaneous Respiratory Depth Normal Normal Blood Pressure 116/95 Blood Pressure Mean 102 Pulse Oximetry 97 97 Oxygen Delivery Method Nasal Cannula Nasal Cannula Nasal Cannula Oxygen Flow Rate 3 3 3 Sepsis New/Unexplained Change in Mental Status N/A Sepsis Action Taken by Nursing No Action Required 01/17/22 03:30 01/17/22 04:28 01/17/22 04:30 Temperature Temperature Source Pulse Rate 58 L 52 L 53 L Pulse Rate from SpO2 Sensor 54 L 53 L Respiratory Rate 30 H 29 H 23 Respiratory Effort / Characteristics Respiratory Depth Blood Pressure 106/71 111/70 Blood Pressure Mean 82 83 Pulse Oximetry 98 100 99 Oxygen Delivery Method Nasal Cannula Nasal Cannula Nasal Cannula Oxygen Flow Rate 3 3 3 Sepsis New/Unexplained Change in Mental Status Sepsis Action Taken by Nursing VITALS: Vitals are noted on the nurse's note and reviewed by myself. Vital signs stable. GENERAL: Pleasant female chronically on oxygen answering questions ap propriately, in no acute distress, nondiaphoretic, well-developed well- nourished. SKIN: The skin was without rashes, erythema, edema, or bruising. There is no tenting of the skin. Capillary reflex less than 2 seconds. HEAD: Normocephalic atraumatic. EARS: External auditory canals clear, EYES: Pupils equal round and reactive to light and accommodation. Conjunctivae without injection, sclerae without icterus. Extraocular movements intact. NOSE: Patent, turbinates without inflammation or discharge. MOUTH: Mucous membranes moist. Pharynx without erythema or exudate. Uvula midline. Airway patent. Tongue does not deviate. NECK: Supple without nuchal rigidity. No lymphadenopathy. No thyromegaly. Cervical spine is nontender. No JVD. HEART: Regular rate and rhythm LUNGS: Clear to auscultation bilaterally without wheezes, rales or rhonchi. No retractions or accessory muscle use. ABDOMEN: Positive bowel sounds x 4. Normal tympanic percussion. Soft, nontender, without masses or organomegaly. Clarke sign negative. No guarding or rebound tenderness. No CVA tenderness MUSCULOSKELETAL: No muscle atrophy, erythema, noted. NEURO: Patient was alert and oriented to person place and time. Normal sensation to light and sharp touch. No focal neurological deficits. Course Administered Medications Discontinued Medications Lorazepam (Lorazepam 2 Mg/1 Ml Vial) 1 mg IV NOW STA; Protocol Stop: 01/17/22 02:48 Last Admin: 01/17/22 03:04 Dose: 1 mg Documented By: TIEN Medical Decision Making Medical Records Attestation: I reviewed the patient's medical records. Home Medications Current Medication List: was personally reviewed by me Laboratory Data Attestation: I reviewed the patient's lab results. Result diagrams: 01/17/22 03:00 01/17/22 03:00 Lab Results 01/17/22 01/17/22 01/17/22 Range/Units 03:00 03:00 04:19 WBC 11.59 H (4.8-10.8) K/ul RBC 3.90 L (3.93-5.22) M/uL Hgb 10.3 L (12.0-16.0) g/dl Hct 32.5 L (34.1-44.9) % MCV 83.3 (80.0-100.0) fL MCH 26.4 (25.0-34.0) pg MCHC 31.7 L (32.0-36.0) g/dL RDW Std Deviation 48.7 H (36.4-46.3) fL RDW Coeff of Logan 16.1 H (11.5-14.5) % Plt Count 352 (130-400) K/uL MPV 9.7 (9.4-12.3) fL Immature Gran % (Auto) 0.3 % Neut % (Auto) 69.3 % Lymph % (Auto) 19.9 % Bucks % (Auto) 8.8 % Eos % (Auto) 1.2 % Baso % (Auto) 0.5 % Neut # (Auto) 8.02 H (1.4-6.5) K/uL Lymph # (Auto) 2.31 (1.2-3.4) K/uL Bucks # (Auto) 1.02 H (0.24-0.82) K/uL Eos # (Auto) 0.14 (0-0.50) K/uL Baso # (Auto) 0.06 (0-0.2) K/uL Immature Gran # (Auto) 0.04 H (0.00-0.02) K/uL Absolute Nucleated RBC 0.37 H (0-0) K/uL Nucleated RBC % (auto) 3.2 % Polychromasia 1+ Ovalocytes 1+ Sodium 131 L (136-145) mmol/L Potassium 4.2 (3.5-5.1) mmol/L Chloride 96 L (98-107) mmol/L Carbon Dioxide 27 (21-32) mmol/L Anion Gap 8 (3-11) BUN 24 H (6-23) mg/dl Creatinine 1.10 (0.6-1.2) mg/dl Est Cr Clr Drug Dosing 74.0 ml/min Est GFR ( Amer) 63.2 ml/min Est GFR (Non-Af Amer) 54.5 ml/min BUN/Creatinine Ratio 21.8 H (10-20) Glucose 120 H (70-99(Fasting)) mg/dl Calcium 9.1 (8.5-10.1) mg/dl Magnesium 2.1 (1.7-2.4) mg/dl Total Bilirubin 1.0 (0.2-1.0) mg/dl AST 57 H (13-39) U/L ALT 99 H (7-52) U/L Alkaline Phosphatase 190 H (34-104) U/L Troponin I High Sens 14.9 H 13.0 (0-14) pg/ml Total Protein 7.9 (6.0-8.3) gm/dl Albumin 3.8 (3.4-5.0) gm/dl Globulin 4.1 H (2.5-4.0) gm/dl Albumin/Globulin Ratio 0.9 (0.9-2) Lipase 8 L (11-82) U/L Ethyl Alcohol mg/dL (<10.0) mg/dl SARS-CoV-2, RNA, NAAT (NEGATIVE) 01/17/22 01/17/22 Range/Units 04:19 04:28 WBC (4.8-10.8) K/ul RBC (3.93-5.22) M/uL Hgb (12.0-16.0) g/dl Hct (34.1-44.9) % MCV (80.0-100.0) fL MCH (25.0-34.0) pg MCHC (32.0-36.0) g/dL RDW Std Deviation (36.4-46.3) fL RDW Coeff of Logan (11.5-14.5) % Plt Count (130-400) K/uL MPV (9.4-12.3) fL Immature Gran % (Auto) % Neut % (Auto) % Lymph % (Auto) % Bucks % (Auto) % Eos % (Auto) % Baso % (Auto) % Neut # (Auto) (1.4-6.5) K/uL Lymph # (Auto) (1.2-3.4) K/uL Bucks # (Auto) (0.24-0.82) K/uL Eos # (Auto) (0-0.50) K/uL Baso # (Auto) (0-0.2) K/uL Immature Gran # (Auto) (0.00-0.02) K/uL Absolute Nucleated RBC (0-0) K/uL Nucleated RBC % (auto) % Polychromasia Ovalocytes Sodium (136-145) mmol/L Potassium (3.5-5.1) mmol/L Chloride (98-107) mmol/L Carbon Dioxide (21-32) mmol/L Anion Gap (3-11) BUN (6-23) mg/dl Creatinine (0.6-1.2) mg/dl Est Cr Clr Drug Dosing ml/min Est GFR ( Amer) ml/min Est GFR (Non-Af Amer) ml/min BUN/Creatinine Ratio (10-20) Glucose (70-99(Fasting)) mg/dl Calcium (8.5-10.1) mg/dl Magnesium (1.7-2.4) mg/dl Total Bilirubin (0.2-1.0) mg/dl AST (13-39) U/L ALT (7-52) U/L Alkaline Phosphatase (34-104) U/L Troponin I High Sens (0-14) pg/ml Total Protein (6.0-8.3) gm/dl Albumin (3.4-5.0) gm/dl Globulin (2.5-4.0) gm/dl Albumin/Globulin Ratio (0.9-2) Lipase (11-82) U/L Ethyl Alcohol mg/dL < 10.0 (<10.0) mg/dl SARS-CoV-2, RNA, NAAT NEGATIVE (NEGATIVE) Imaging Data Attestation: I personally reviewed and interpreted this imaging study as follows: MDM Narrative Prior records/ancillary studies reviewed and summarized above. Nursing notes reviewed. Additional history obtained from nursing. The patient's history was concerning for feeling shaky. Differential diagnosis: Etiologies such as metabolic, infection, hypo/hyperglycemia, electrolyte abnormalities, cardiac sources, intracerebral event, toxicologic, neurologic, as well as others were entertained. Physical examination: As above. ER treatment provided: IV Lock An order was placed for continuous cardiac monitoring. The monitor shows a rate of 60-100 with a sinus rhythm. Ativan On reassessment the patient felt better. Diagnostics interpretation by me: ECG: Ordered for feeling shaky EKG: Paced rhythm with ventricular rate of [address]-T wave changes. Impression paced ventricular rhythm interpreted by myself The labs revealed minimally elevated troponin and repeat was ordered. Elevated LFTs. Imaging studies: X-ray with pulmonary congestion without overt heart failure per my interpretation HEART SCORE: Hx: high/mod/low suspicion: 0 ECG: ST depression/nonspecific changes/normal: 0 Age: Greater than 65/45-64/less than 45: 1 Risk factors: (Hypertension, hyperlipidemia, diabetes, coronary disease, tobacco use, cocaine use): 2 Troponin: Greater than 2 times normal limits/1-2 times normal limits/normal: 0 Total: 3 Consultation: A consultation was placed with the hospitalist. The case was discussed and diagnostics were reviewed. The patient was evaluated in the ER for further treatment. Exam and history seem consistent with chest pain with positive troponin. Repeat was ordered. Medicine is consulted. She will be evaluated for admission. By the evaluation outlined above emergent etiologies such as infection, el ectrolyte abnormalities, intracerebral event, toxologic, neurologic, abnormalities blood glucose, metabolic, as well as others were deemed relatively unlikely. The pt informed about the findings as listed above. All questions were answered and pleased with the treatment. The chart was completed utilizing [employer] Speech voice recognition software. Grammatical errors, random word insertions, pronoun errors, and incomplete sentences are an occassional consequence of this system due to software limitations, ambient noise, and hardware issues. Any formal questions or concerns about the content, text, or information contained within the body of this dictation should be directly addressed to the physician resident programs assistant for clarification. Impression & Plan Chest pain, Elevated troponin Discharge Plan Visit Data Chief Complaint: Cardiac Assessment ED Provider: Breonna Box ED Midlevel Provider: Jenelle Phillips Discharge Problem: Chest pain, Elevated troponin Patient Disposition: Being Evaluated by Hospitalist Condition: Good Forms Stand Alone Forms: My [facility] Prescriptions Prescriptions: No Action metformin 500 mg tablet 500 mg PO BID Qty: 60 5RF quetiapine [Seroquel] 400 mg tablet 400 mg PO HS (DME) Portable Oxygen Misc See Rx Instructions .MEDSUPPLY Qty: 1 0RF Rx Instructions: Oxygen 3 liters continuous with portable concentrator. MARGE 99 atorvastatin 10 mg tablet 10 mg PO QAM Qty: 90 3RF digoxin 125 mcg (0.125 mg) tablet 125 mcg PO QAM Qty: 90 3RF pregabalin 150 mg capsule 150 mg PO BID 30 Days Qty: 60 5RF docusate sodium [Colace] 100 mg capsule 100 mg PO BID Qty: 180 3RF (DME) Incentive Spirometer Misc See Rx Instructions .MEDSUPPLY Qty: 1 0RF Rx Instructions: As directed diclofenac sodium [Voltaren Arthritis Pain] 1 % gel 2 g topical QID PRN (Reason: arthritis) trazodone 100 mg tablet 200 mg PO HS quetiapine [Seroquel] 100 mg Tablet 100 mg PO QAM (DME) Oxygen Home Liters Per Minute See Rx Instructions .ROUTE .MEDSUPPLY Qty: 1 0RF Rx Instructions: As directed - 2 liters continuously magnesium oxide 400 mg (241.3 mg magnesium) tablet 400 mg PO QAM hydroxyzine HCl 50 mg Tablet 50 mg PO QPM PRN (Reason: Anxiety) buspirone 5 mg Tablet 5 mg PO TID Qty: 90 0RF Xarelto 20 mg tablet 20 mg PO QDD Qty: 90 2RF Rx Instructions: take with food at dinner time furosemide 40 mg tablet 80 mg PO QAM metoprolol succinate 100 mg tablet extended release 24 hr 100 mg PO QAM tramadol 50 mg tablet 50 mg PO QAM PRN (Reason: pain) omeprazole 20 mg capsule,delayed release(DR/EC) 20 mg PO QAM Anoro Ellipta 62.5-25 mcg/actuation blister with device 1 inh INH QAM Referrals Referrals: Antonio Oliver MD [Primary Care Provider] - : Chest pain Qualifiers: Chest pain type: unspecified Qualified Code(s): R07.9 - Chest pain, unspecified
[2022-01-17 03:11] LABS: Basophils # (auto) 0.06 K/uL (0-0.2); Basophils % (auto) 0.5 %; Eosinophils # (auto) 0.14 K/uL (0-0.50); Eosinophils % (auto) 1.2 %; Hematocrit (blood only) 32.5 % (34.1-44.9); Hemoglobin 10.3 g/dl (12.0-16.0); Immature Granulocytes # (auto) 0.04 K/uL (0.00-0.02); Immature Granulocytes % (auto) 0.3 %; Lymphocytes # (auto) 2.31 K/uL (1.2-3.4); Lymphocytes % (auto) 19.9 %; Mean Corpuscular Hemoglobin 26.4 pg (25.0-34.0); Mean Corpuscular Hgb Conc 31.7 g/dL (32.0-36.0); Mean Corpuscular Volume 83.3 fL (80.0-100.0); Mean Platelet Volume 9.7 fL (9.4-12.3); Monocytes # (auto) 1.02 K/uL (0.24-0.82); Monocytes % (auto) 8.8 %; Neutrophils # (auto) 8.02 K/uL (1.4-6.5); Neutrophils % (auto) 69.3 %; Nucleated RBC # (auto) 0.37 K/uL (0-0); Nucleated RBC % (auto) 3.2 %; Platelet Count 352 K/uL (130-400); RDW Coefficient of Variation 16.1 % (11.5-14.5); RDW Standard Deviation 48.7 fL (36.4-46.3); White Blood Count 11.59 K/ul (4.8-10.8)
[2022-01-17 03:29] LABS: Albumin Globulin Ratio 0.9 (0.9-2); Albumin Level 3.8 gm/dl (3.4-5.0); BUN Creatinine Ratio 21.8 (10-20); Calcium 9.1 mg/dl (8.5-10.1); Est GFR (African American) 63.2 ml/min; Est GFR (Non-African American) 54.5 ml/min; Globulin 4.1 gm/dl (2.5-4.0); Magnesium 2.1 mg/dl (1.7-2.4); Potassium 4.2 mmol/L (3.5-5.1); Total Protein 7.9 gm/dl (6.0-8.3)
[2022-01-17 03:33] LABS: Ovalocytes 1+; Polychromasia 1+
[2022-01-17 03:36] LABS: Troponin I High Sensitivity 14.9 pg/ml (0-14)
--- NOTE | 2022-01-17 05:09 | History & Physical Report ---
Date of Service January 17, 2022 Assessment & Plan (1) Chest pain: (2) Elevated troponin: (3) Anxiety: (4) Alcohol use disorder: (5) Nonischemic cardiomyopathy: (6) COPD, severe: Plan 1. Chest pain - patient reports chest pain prior to arrival. Symptoms resolved before arriving Troponin mildly elevated No acute ischemic EKG changes -Telemetry monitoring -Pacer interrogation -Trend troponin 2. Atrial fibrillation: s/p AV jennifer ablation 01/12/22. Pacer set to 50 -Continue Digoxin -Continue Toprol -ECHO repeat 01/15 as per Cardiology to recheck LV function now that rates controlled shows slight improvement at EF 30-35% (up from 25-30%) and mild pericardial effusion (previous was moderate) - Cardiology as outpt 3. Chronic systolic heart failure: Compensated. Dry weight is 260 pounds -Continue Metoprolol -Continue Digoxin 4. Bipolar disorder: -Continue Seroquel, Trazodone -Continue Buspar 5. COPD (chronic obstructive pulmonary disease): -Chronic. Stable -Continue supplemental O2 as needed -Continue home medications 6. Diabetes type 2, controlled: a1c <6.5% -ISS 7. GERD (gastroesophageal reflux disease):controlled - continue PPI 8. HTN (hypertension): BP presently 111/70 -Continue home agents History of Present Illness Chief Complaint: admission Primary Care Provider: Antonio Oliver MD Grazyna Carson is a 61yo female with HTN, HLP, preDM, chronic hypoxia on supplemental O2, NICM with EF of 25-30% with biventricular pacer in place and BiPolar disorder. Patient was recently admitted to [facility] from 01/05/22 - 01/16/22. Patient had persistent AF with poor rate control. Had an AV node ablation performed by Dr. Christensen on 01/12/22 and pacer rate decreased to 50. Patient presents today with complaint of chest pain that started prior to arrival. She says that her ICD fired x 5 but they were just "small fires". She reports being scared and coming to the ER. Somnolent after receiving Ativan in the ER. Unable to provide additional history. Allergies Allergy/AdvReac Type Severity Reaction Status Date / Time fentanyl Allergy Mild RASH,ITCHIN Verified 01/05/22 16:11 G Home Medications Medication Instructions Recorded Confirmed Type trazodone 100 mg tablet 200 mg PO HS 10/07/18 01/05/22 History metformin 500 mg tablet 500 mg PO BID #60 tabs 12/15/18 01/05/22 Rx quetiapine 100 mg tablet (Seroquel) 100 mg PO QAM 01/02/19 01/05/22 History Oxygen Home #1 ea 05/09/19 12/17/21 Rx docusate sodium 100 mg capsule 100 mg PO BID #180 caps 06/28/19 01/05/22 Rx (Colace) quetiapine 400 mg tablet (Seroquel) 400 mg PO HS 07/05/19 01/05/22 History Portable Oxygen #1 ea 07/29/20 12/17/21 Rx magnesium oxide 400 mg (241.3 mg 400 mg PO QAM 03/24/21 01/05/22 History magnesium) tablet atorvastatin 10 mg tablet 10 mg PO QAM #90 tabs 04/21/21 01/05/22 Rx hydroxyzine HCl 50 mg tablet 50 mg PO QPM PRN Anxiety 05/06/21 01/05/22 History digoxin 125 mcg (0.125 mg) tablet 125 mcg PO QAM #90 tabs 06/16/21 01/05/22 Rx pregabalin 150 mg capsule 150 mg PO BID 30 days #60 caps 08/10/21 01/05/22 Rx Incentive Spirometer #1 ea 11/16/21 12/17/21 Rx diclofenac sodium 1 % topical gel 2 g topical QID PRN arthritis 12/10/21 01/05/22 History (Voltaren Arthritis Pain) furosemide 40 mg tablet 80 mg PO QAM 12/17/21 01/05/22 History metoprolol succinate 100 mg 100 mg PO QAM 12/17/21 01/05/22 History tablet,extended release 24 hr omeprazole 20 mg capsule,delayed 20 mg PO QAM 12/17/21 01/05/22 History release tramadol 50 mg tablet 50 mg PO QAM PRN pain 12/17/21 01/05/22 History umeclidinium 62.5 mcg-vilanterol 1 inh inhalation QAM 12/17/21 01/05/22 History 25 mcg/actuation powdr for inhalation (Anoro Ellipta) buspirone 5 mg tablet 5 mg PO TID #90 tabs 01/16/22 Rx rivaroxaban 20 mg tablet (Xarelto) 20 mg PO QDD #90 tabs 01/16/22 01/05/22 Rx Past Med/Surg History Medical History KIRSTIN (acute kidney injury) pt unaware Asthma inhaler prn Atrial fibrillation on xarelto/metoprolol/digoxin--follows with Dr. 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 pt denies History of pulmonary embolism HTN (hypertension) 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 unsure type of i nfection Left tibial fracture Memory impairment Morbid obesity On anticoagulant therapy xarelto daily On home oxygen therapy 2L N/C at all times Pericardial effusion Peripheral neuropathy PTSD (post-traumatic stress disorder) Pulmonary embolism 2013 while living in [place] - currently on Xarelto Pulmonary hypertension Restrictive lung disease 2L NC O2 continuous Schizoaffective disorder Severe mitral regurgitation Small bowel obstruction hx of - resolved with NG suction Ventricular arrhythmia Vitamin D deficiency Surgical History AICD (automatic cardioverter/defibrillator) present ~2006 - [facility] - ICD - meditronic - Follows Dr. Pelayo History of cardiac cath x2?-- - no stents - ICD placed 2006 - follows Dr. Pelayo History of decompression of both ulnar nerves History of eye surgery left History of hernia surgery x2 History of incision and drainage (~09/30/20) left tibia History of open reduction and internal fixation (ORIF) procedure left tibia--hardware in place History of tooth extraction partial upper S/P ORIF (open reduction internal fixation) fracture ankle, left--hardware in place S/P tubal ligation Family History Mother , in her 70s Congestive heart failure (CHF) Breast cancer Lung cancer from this Father No problems noted. Grandmother (Paternal) Stroke Other Hypertension No family history of adverse response to anesthesia Ulcerative colitis Denies family history of Colon cancer Ovarian cancer Prostate cancer Myocardial infarction Social History Smoking Status: Former smoker Tobacco Type: Cigarettes Years Smoked: 30; Second Hand Exposure: No; Hx Alcohol Use: Yes Alcohol type: hard liquor Alcohol Intake Frequency Comment: weekends only Hx Substance Use: Yes Substance Use Type Other:: Marijuana oil for pain/anxiety - has medical card Preferred Language: Georgian Communication Ability: Effective Visual Impairment: No Limitations Hearing Ability: Normal Laboratory Clerk Required: No Beliefs That Will Affect Care: None marital status: marital status details: 5 kids Current Living Situation: Alone Current Living Situation Comment: pt has aide 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: 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[employer]; worked 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 [employer] service; was in [place] x 7 yr How many Children do You have: 5 other: lives in [place] Feels Safe at Home: Yes Childhood Exposure to Second-Hand Smoke: Yes Dental Care, Regularly: No Physical Activity Frequency: Does not Exercise Assistive Devices: Bedside Commode, Cane and Walker Review of Systems Review of Systems: All systems reviewed & are unremarkable except as noted in HPI & below Physical Exam Physical Exam: General: patient resting comfortably, NAD, non-toxic in appearance, AA&O x 4 Skin: warm, dry, intact, no rashes or lesions HEENT: NC/AT, PERRL, EOMI, anicteric sclera, conjunctiva without injection, external ear normal to inspection and nontender, nares patent, moist mucus membranes, dentition intact, no oropharyngeal lesions, neck supple, trachea midline, no LAD, no thyromegaly, no JVD Heart: +S1/S2, regular, bradycardic, no m/r/g Lungs: equal air entry bilaterally, no rales/rhonchi/wheezes Abd: +BS, soft, NT/ND, no masses/organomegaly/ascites Ext: warm, 2+ pulses in UE/LE bilaterally, no clubbing/cyanosis or edema Neuro: nonfocal, patient AA&O x 4, speech intact, no facial droop, moving all extremities on command with equal strength 5/5 Results & Data Results & Data ([facility]) Vital Signs (Past 12 Hours) Vital Signs Temp Pulse Resp BP Pulse Ox O2 Del Method O2 Flow Rate 01/17/22 04:30 53 L 23 111/70 99 Nasal Cannula 3 01/17/22 04:28 52 L 29 H 106/71 100 Nasal Cannula 3 01/17/22 03:30 58 L 30 H 98 Nasal Cannula 3 01/17/22 03:00 64 17 97 Nasal Cannula 3 01/17/22 02:55 Nasal Cannula 3 01/17/22 02:49 36.4 C L 72 28 H 116/95 97 Nasal Cannula 3 Laboratory Results Laboratory Results WBC 11.59 K/ul (4.8-10.8) H 01/17/22 03:00 RBC 3.90 M/uL (3.93-5.22) L 01/17/22 03:00 Hgb 10.3 g/dl (12.0-16.0) L 01/17/22 03:00 Hct 32.5 % (34.1-44.9) L 01/17/22 03:00 MCV 83.3 fL (80.0-100.0) 01/17/22 03:00 MCH 26.4 pg (25.0-34.0) 01/17/22 03:00 MCHC 31.7 g/dL (32.0-36.0) L 01/17/22 03:00 RDW Std Deviation 48.7 fL (36.4-46.3) H 01/17/22 03:00 RDW Coeff of Logan 16.1 % (11.5-14.5) H 01/17/22 03:00 Plt Count 352 K/uL (130-400) 01/17/22 03:00 MPV 9.7 fL (9.4-12.3) 01/17/22 03:00 Immature Gran % (Auto) 0.3 % 01/17/22 03:00 Neut % (Auto) 69.3 % 01/17/22 03:00 Lymph % (Auto) 19.9 % 01/17/22 03:00 [place] % (Auto) 8.8 % 01/17/22 03:00 Eos % (Auto) 1.2 % 01/17/22 03:00 Baso % (Auto) 0.5 % 01/17/22 03:00 Neut # (Auto) 8.02 K/uL (1.4-6.5) H 01/17/22 03:00 Lymph # (Auto) 2.31 K/uL (1.2-3.4) 01/17/22 03:00 [place] # (Auto) 1.02 K/uL (0.24-0.82) H 01/17/22 03:00 Eos # (Auto) 0.14 K/uL (0-0.50) 01/17/22 03:00 Baso # (Auto) 0.06 K/uL (0-0.2) 01/17/22 03:00 Immature Gran # (Auto) 0.04 K/uL (0.00-0.02) H 01/17/22 03:00 Absolute Nucleated RBC 0.37 K/uL (0-0) H 01/17/22 03:00 Nucleated RBC % (auto) 3.2 % 01/17/22 03:00 Polychromasia 1+ 01/17/22 03:00 Ovalocytes 1+ 01/17/22 03:00 Sodium 131 mmol/L (136-145) L 01/17/22 03:00 Potassium 4.2 mmol/L (3.5-5.1) 01/17/22 03:00 Chloride 96 mmol/L (98-107) L 01/17/22 03:00 Carbon Dioxide 27 mmol/L (21-32) 01/17/22 03:00 Anion Gap 8 (3-11) 01/17/22 03:00 BUN 24 mg/dl (6-23) H 01/17/22 03:00 Creatinine 1.10 mg/dl (0.6-1.2) 01/17/22 03:00 Est Cr Clr Drug Dosing 74.0 ml/min 01/17/22 03:00 Est GFR ( Amer) 63.2 ml/min 01/17/22 03:00 Est GFR (Non-Af Amer) 54.5 ml/min 01/17/22 03:00 BUN/Creatinine Ratio 21.8 (10-20) H 01/17/22 03:00 Glucose 120 mg/dl (70-99(Fasting)) H 01/17/22 03:00 Calcium 9.1 mg/dl (8.5-10.1) 01/17/22 03:00 Magnesium 2.1 mg/dl (1.7-2.4) 01/17/22 03:00 Total Bilirubin 1.0 mg/dl (0.2-1.0) 01/17/22 03:00 AST 57 U/L (13-39) H 01/17/22 03:00 ALT 99 U/L (7-52) H 01/17/22 03:00 Alkaline Phosphatase 190 U/L (34-104) H 01/17/22 03:00 Troponin I High Sens 13.0 pg/ml (0-14) 01/17/22 04:19 Total Protein 7.9 gm/dl (6.0-8.3) 01/17/22 03:00 Albumin 3.8 gm/dl (3.4-5.0) 01/17/22 03:00 Globulin 4.1 gm/dl (2.5-4.0) H 01/17/22 03:00 Albumin/Globulin Ratio 0.9 (0.9-2) 01/17/22 03:00 Lipase 8 U/L (11-82) L 01/17/22 03:00 Ethyl Alcohol mg/dL < 10.0 mg/dl (<10.0) 01/17/22 04:19 SARS-CoV-2, RNA, NAAT NEGATIVE (NEGATIVE) 01/17/22 04:28 PG Care Time/CCT Total # of Minutes Spent Total Time Spent with Patient: Total time spent is greater than 50% in coordination of care (as documented) at patient's floor/unit and/or counseling patient: Coding Level of Care Code INT OBSERVATION CARE 70M LVL 3 Diagnoses Chest pain R07.9 Chest pain type: unspecified Elevated troponin R77.8 Anxiety F41.9 Alcohol use disorder Nonischemic cardiomyopathy I42.8 COPD, severe J44.9 (1) Chest pain Chest pain type: unspecified Qualified Code(s): R07.9 - Chest pain, unspecified
[2022-01-17] MEDS ORDERED: ONDANSETRON INJ 2 MG/ML 2 ML VIAL IV PRN (05:49)
[2022-01-17] MEDS ORDERED: GLUCOSE 10 TAB/TUBE PO PRN (05:49)
[2022-01-17] MEDS ORDERED: hydrOXYzine HCl 25 MG TAB PO PRN (05:49)
[2022-01-17] MEDS ORDERED: DICLOFENAC SOD 1% GEL 100 GM TUBE EXT PRN (05:49)
[2022-01-17] MEDS ORDERED: DEXTROSE 50% 50 ML SYRINGE IV PRN (05:49)
[2022-01-17] MEDS ORDERED: CARBOHYDRATES FOR HYPOGLYCEMIA PO PRN (05:49)
[2022-01-17] MEDS ORDERED: traMADol HCL 50 MG TABLET PO PRN (05:49)
[2022-01-17] MEDS ORDERED: GLUCOSE 40% GEL 15 GM TUBE PO PRN (05:49)
[2022-01-17] MEDS ORDERED: GLUCAGON FOR INJ 1 MG VIAL SQ PRN (05:49)
--- NOTE | 2022-01-17 07:56 | XRay Report ---
SINGLE VIEW CHEST CLINICAL HISTORY: Atypical chest pain. FINDINGS: An AP, portable, upright chest radiograph is compared to study dated 01/09/2022. The examinat ion is degraded by portable technique and patient rotation. A cardiac AICD is unchanged in position. The heart is enlarged. There is pulmonary vascular congestion. Bilateral airspace opacities likely re present pulmonary edema. There are left larger than right pleural effusions with dependent consolidat ion. No pneumothorax is seen. The skeletal structures are osteopenic. There are healed left-sided rib fracture. IMPRESSION: 1. Cardiomegaly and AICD with evidence of congestive failure and pulmonary edema. 2. Layering pleural effusions with dependent consolidation. This likely represent atelectasis and cli nical correlation will be required ACT 112: Negative or not required by law. Electronically signed by: Sunny Williamson M.D. 01/17/2022 7:54 AM
[2022-01-17] MEDS: INSULIN ASPART PER UNIT SC SCH ×3 (08:29→16:26)
[2022-01-17] MEDS: ATORVASTATIN 10 MG TAB PO SCH (08:30)
[2022-01-17] MEDS: busPIRone 5 MG TAB PO SCH ×2 (08:30→13:38)
[2022-01-17] MEDS: QUEtiapine FUMARATE 100 MG TABLET PO SCH (08:30)
[2022-01-17] MEDS: MAGNESIUM OXIDE 400 MG TAB PO SCH (08:30)
[2022-01-17] MEDS: PANTOprazole 40 MG TAB PO SCH (08:31)
[2022-01-17] MEDS: METOPROLOL SUCC 50MG EXT REL TAB PO SCH (08:31)
[2022-01-17] MEDS: FUROSEMIDE 80 MG TAB PO SCH (08:31)
[2022-01-17] MEDS: DOCUSATE SODIUM 100 MG CAP PO SCH (08:31)
[2022-01-17] MEDS: UMECLIDINIUM/VILANTEROL 62.5/25MCG 7 PUFFS/INHALER INH SCH (08:36)
[2022-01-17] MEDS: PREGABALIN 150 MG CAP PO SCH (08:36)
--- NOTE | 2022-01-17 11:38 | History & Physical Bridge Note ---
Date of Service January 17, 2022 History & Physical Bridge Note I have examined the patient, reviewed the History & Physical and in the interval since the performance of the History & Physical I have noted the following changes of clinical significance: Says that yesterday evening after her caregiver left at 1800, she tried to go to the bathroom and when lowering herself down to toilet, both arms were having what sounds like myoclonic jerks and this is what made her think she had ICD firing. Denies ever having chest pain. Has her usual SOB. [facility] rep contacted his nurse today and said that pacer interrogation was normal, no firing of ICD, no other acute issues. Patient reports that she felt very anxious when she was home alone and is hoping to get overnight caregivers for when she returns home, but would be willing to go to rehab if recommended by PT OT. Discussed care with cardiology Discussed care with nursing Vitals reviewed Gen: AAOx3, NAD, obese, anxious HEENT: Anicteric sclerae, EOMI CV: RRR no mgr nl S1S2 Pulm: CTAB no wcr Abd: +BS soft NT ND no masses or hernias Ext: No edema Skin: No rashes, warm/dry 61-year-old female here with generalized weakness, anxiety, suspicion of ICD firing which has been ruled out PT/OT evaluations ordered Also with mildly elevated AST/ALT/alkaline phosphatase-possible hepatic congestion? No abdominal pain or tenderness, no fevers Continue diuretics Follow LFTs in the morning May need rehab placement
--- NOTE | 2022-01-17 12:24 | Cardiology Progress Note ---
Date of Service January 17, 2022 Assessment & Plan (1) Nonischemic cardiomyopathy: Plan: -LVEF 30-35% on echocardiogram earlier this month. -continue metoprolol succinate. -restart Entresto and Jardiance when able. (2) Chronic systolic heart failure: Plan: -continue medical management as above. (3) Atrial fibrillation, permanent: Plan: -s/p AV node ablation on January 12. -continue Xarelto as you are. (4) AICD (automatic cardioverter/defibrillator) present: Plan: -biventricular ICD. -normal interrogation in the emergency room. Admission and Anticipated Discharge Date Admission Date: January 17, 2022 Subjective The patient is resting comfortably in bed without complaints of chest pain or dyspnea. Physical Exam Physical Exam: In general is well-developed well-nourished black female no acute distress. HEENT exam is negative. Neck is supple with full carotid upstrokes. No carotid bruits. Jugular venous pressure is flat at 90. There is no thyromegaly. Cardiovascular exam reveals a regular rhythm with distant heart sounds. Lungs are clear without rales, rhonchi, or wheezes. Chest reveals a palpable device in the left subclavicular region. Abdomen is obese without bruits. Extremities reveal intact radial artery pulses bilaterally. Trace pretibial edema is noted. Results & Data ([facility]) Vital Signs (Past 12 Hours) Vital Signs Temp Pulse Pulse Resp BP BP Pulse Ox 01/17/22 11:35 59 L 01/17/22 11:30 01/17/22 08:12 36.4 C L 50 L 19 101/61 99 01/17/22 06:15 01/17/22 06:01 36.5 C 59 L 24 131/81 97 01/17/22 05:00 53 L 21 116/71 98 01/17/22 04:30 53 L 23 111/70 99 01/17/22 04:28 52 L 29 H 106/71 100 01/17/22 03:30 58 L 30 H 98 01/17/22 03:00 64 17 97 01/17/22 02:55 01/17/22 02:49 36.4 C L 72 28 H 116/95 97 O2 Del Method O2 Flow Rate 01/17/22 11:35 01/17/22 11:30 Nasal Cannula 3 01/17/22 08:12 Nasal Cannula 2 01/17/22 06:15 Nasal Cannula 3 01/17/22 06:01 Nasal Cannula 3 01/17/22 05:00 Nasal Cannula 3 01/17/22 04:30 Nasal Cannula 3 01/17/22 04:28 Nasal Cannula 3 01/17/22 03:30 Nasal Cannula 3 01/17/22 03:00 Nasal Cannula 3 01/17/22 02:55 Nasal Cannula 3 01/17/22 02:49 Nasal Cannula 3 Laboratory Results CBC notes hemoglobin 10.3, crit 32.5, white count 11.6, platelet count [id number]. Electrolytes note a sodium of 131, potassium 4.2, chloride 96, bicarb 27, BUN 24, creatinine 1.1, glucose of 120. AST mildly elevated 57 with an elevated ALT 99. High sensitivity troponin was 14.9 on presentation, currently 13. Diagnostic Findings EKG notes atrial fibrillation with ventricular pacing at 64 beats per minute. Chest x-ray notes cardiomegaly and pulmonary edema. An ICD is in place. PG Care Time/CCT Total # of Minutes Spent Total Time Spent with Patient: Total time spent is greater than 50% in coordination of care (as documented) at patient's floor/unit and/or counseling patient: Coding Level of Care Code 97087 Subseq Hosp Care Lvl 3 Diagnoses Nonischemic cardiomyopathy I42.8 Chronic systolic heart failure I50.22 Atrial fibrillation, permanent I48.21 AICD (automatic cardioverter/defibrillator) present Z95.810
--- NOTE | 2022-01-17 13:40 | Electrocardiogram Report ---
Test Reason : Blood Pressure : / mmHG Vent. Rate : 064 BPM Atrial Rate : 077 BPM P-R Int : 000 ms QRS Dur : 096 ms QT Int : 394 ms P-R-T Axes : 000 126 208 degrees QTc Int : 406 ms Poor data quality, interpretation may be adversely affected Ventricular-paced rhythm Abnormal ECG When compared with ECG of 12-JAN-2022 15:52, Electronic ventricular pacemaker has replaced Junctional rhythm Confirmed by Nolan Douglas ([id number]) on 01/17/2022 1:40:16 PM Referred By: REFERRED SELF Confirmed By:Nolan Douglas
[2022-01-17] MEDS: DIGOXIN 0.125 MG TAB PO SCH (16:26)
[2022-01-17] MEDS: RIVAROXABAN 20 MG TAB PO SCH (16:27)
[2022-01-18] MEDS: INSULIN ASPART PER UNIT SC SCH ×5 (01:46→21:23)
[2022-01-18] MEDS: busPIRone 5 MG TAB PO SCH ×4 (01:46→20:51)
[2022-01-18] MEDS: PREGABALIN 150 MG CAP PO SCH ×3 (01:46→20:51)
[2022-01-18] MEDS: DOCUSATE SODIUM 100 MG CAP PO SCH ×3 (01:46→20:51)
[2022-01-18] MEDS: QUEtiapine FUMARATE 200 MG TAB PO SCH ×2 (01:46→20:52)
[2022-01-18] MEDS: traZODone HCL 100 MG TAB PO SCH ×2 (01:47→20:52)
--- NOTE | 2022-01-18 07:06 | CT Scan Report ---
CT head/brain wo con CLINICAL HISTORY: 61 years-old Female with AMS, facial trauma s/p fall. Acutely altered mental statu s TECHNIQUE: Multiple axial CT images of the head were obtained without contrast. A dose lowering tech nique was utilized adhering to the principles of ALARA. CT DOSE: 614.27 mGy.cm COMPARISON: Head CT 01/06/2022 FINDINGS: No acute intracranial hemorrhage, midline shift, intracranial mass, hydrocephalus, territorial ischem ia or abnormal extra-axial collection. Motion degraded exam. White matter hypodensities are suggestiv e of chronic microvascular ischemic disease. Chronic left cerebellar lacunar infarct. No acute calvarial fracture. Postoperative changes of the left maxilla and left orbital floor. The p aranasal sinuses, mastoid air cells, and middle ear cavities are clear. IMPRESSION: Motion degraded exam. No acute intracranial abnormality identified. ACT 112: Negative or not required by law. The above report was generated using voice recognition software. It may contain grammatical, syntax o r spelling errors. Electronically signed by: Jae Ortega M.D. 01/18/2022 7:04 AM
--- NOTE | 2022-01-18 09:24 | Electrocardiogram Report ---
Test Reason : Blood Pressure : / mmHG Vent. Rate : 060 BPM Atrial Rate : 029 BPM P-R Int : 000 ms QRS Dur : 096 ms QT Int : 442 ms P-R-T Axes : 000 129 223 degrees QTc Int : 442 ms Poor data quality, interpretation may be adversely affected Ventricular-paced rhythm Biventricular pacemaker detected Abnormal ECG When compared with ECG of 17-JAN-2022 02:46, Vent. rate has decreased BY 4 BPM Confirmed by Nolan Douglas ([id number]) on 01/18/2022 9:23:46 AM Referred By: REFERRED SELF Confirmed By:Nolan Douglas
[2022-01-18] MEDS: QUEtiapine FUMARATE 100 MG TABLET PO SCH (09:36)
[2022-01-18] MEDS: METOPROLOL SUCC 50MG EXT REL TAB PO SCH (09:37)
[2022-01-18] MEDS: ATORVASTATIN 10 MG TAB PO SCH (09:38)
[2022-01-18] MEDS: FUROSEMIDE 80 MG TAB PO SCH (09:38)
[2022-01-18] MEDS: PANTOprazole 40 MG TAB PO SCH (09:38)
[2022-01-18] MEDS: MAGNESIUM OXIDE 400 MG TAB PO SCH (09:38)
[2022-01-18] MEDS: UMECLIDINIUM/VILANTEROL 62.5/25MCG 7 PUFFS/INHALER INH SCH (09:42)
--- NOTE | 2022-01-18 09:52 | Hospitalist Progress Note ---
Date of Service January 18, 2022 Assessment & Plan (1) Ventricular fibrillation: Plan: Initially presented with what she thought was ICD firing at home when her arms were shaking while trying to lower herself to the toilet. Pacer interrogation after admission was without any evidence of ICD firing. However, on the night of 01/17, she did have an episode of syncope and fell onto the ground after feeling lightheaded and does not recall anything after that. She was noted on telemetry to have approximately 40 seconds of ventricular fibrillation versus polymorphic VT as per cardiology. She had 3 ICD shocks fired. No chest compressions were performed as per my discussion with nursing. She did arouse after that. CT head was negative at that time after she hit her head on the ground. Cardiology thinks the arrhythmia was related to bradycardia. Her pacemaker had been set to a rate of 50 s/p AV jennifer ablation during her previous recent admission. -Cardiology increased pacer rate to 85 to prevent this from happening -No antiarrhythmics or increased dose of metoprolol needed at this time as per my discussion with cardiology -Continue to monitor on telemetry -Replace electrolytes for optimization-give 40 mEq of potassium chloride (2) Nonischemic cardiomyopathy: Plan: Chronic systolic heart failure: Compensated. Dry weight is 260 pounds -Continue Metoprolol -Continue Digoxin -Continue Lasix, replace potassium -Changed to low-sodium diet, fluid restrict 1800 mL/day (3) Elevated LFTs: Plan: AST, ALT, and alkaline phosphatase all elevated on admission and all now improving Suspect possible hepatic congestion No abdominal pain and total bilirubin is normal -Follow in the morning Continue diuresis with Lasix (4) Anxiety: Plan: Continue home medications (5) COPD, severe: Plan: COPD (chronic obstructive pulmonary disease): -Chronic. Stable -Continue supplemental O2 as needed -Continue home medications (6) Atrial fibrillation, permanent: Plan: Atrial fibrillation: s/p AV jennifer ablation 01/12/22. Pacer set to 50 -Continue Digoxin -Continue Toprol -ECHO repeat 01/15 as per Cardiology to recheck LV function now that rates controlled shows slight improvement at EF 30-35% (up from 25-30%) and mild pericardial effusion (previous was moderate) -Continue Xarelto (7) Bipolar disorder: Plan: Bipolar disorder: -Continue Seroquel, Trazodone -Continue Buspar (8) Diabetes type 2, controlled: Plan: Diabetes type 2, controlled: a1c <6.5% -ISS (9) GERD (gastroesophageal reflux disease): Plan: GERD (gastroesophageal reflux disease):controlled - continue PPI (10) History of pulmonary embolism: Plan: Continue Xarelto Plan Disposition-continued stay on telemetry unit PT/OT consults ordered but held off today due to V. fib with syncope overnight. May need rehab placement. Of note, she was recently discharged to home on 01/16 after an 11-day hospital stay and returned back to the hospital within hours of being discharged. Suspect she should go to rehab for strengthening given deconditioning Admission and Anticipated Discharge Date Admission Date: January 17, 2022 Subjective Patient does not recall any events of last evening. She was a code purple and was noted to get dizzy and fall out of bed and landed on the floor. She denies headache today. Denies chest pains. She may be slightly more short of breath over her baseline. She otherwise has no complaints. Review of telemetry revealed 40 seconds of ventricular fibrillation and 3 shocks fired by her ICD. Otherwise, now in paced rhythm with a rate of 85 I discussed her case with the director of field sales, Dr. Pelayo, who set her pacer to a higher rate at 85 to help prevent this from happening again. Review of Systems Review of Systems: All systems reviewed & are unremarkable except as noted in HPI & below Physical Exam Constitutional: WD/WN, vitals as above Eyes: + anicteric sclerae Neck: trachea midline, no thyromegaly Respiratory: normal respiratory effort, lungs clear to auscultation Cardiovascular: RRR, no murmur, no edema Chest (Breasts): Chest: normal inspection of chest Gastrointestinal (Abdomen): normal bowel sounds, soft, nontender, no hepatosplenomegaly Musculoskeletal: Extremities: extremities normal to inspection; no cyanosis and no clubbing Skin: no rashes, warm and dry Neurologic: moves all extremities and awake; no focal motor deficits Psychiatric: Orientation: alert, oriented x 3 and cooperative Affect: + flat affect Lymphatic: no lymphedema Results & Data Results & [facility] ([facility]) Vital Signs (Past 12 Hours) Vital Signs Temp Pulse Pulse Resp BP Pulse Ox O2 Del Method 01/18/22 09:03 52 L 01/18/22 08:00 36.8 C 50 L 18 102/68 99 Nasal Cannula 01/17/22 22:00 Nasal Cannula 01/17/22 23:30 50 L 01/18/22 03:16 36.6 C 51 L 18 111/71 99 Nasal Cannula 01/17/22 23:27 36.5 C 50 L 16 107/70 98 Nasal Cannula O2 Flow Rate 01/18/22 09:03 01/18/22 08:00 3 01/17/22 22:00 3 01/17/22 23:30 01/18/22 03:16 3 01/17/22 23:27 3 Laboratory Results 01/18/22 01/18/22 01/18/22 Range/Units 16:43 11:57 09:48 WBC (4.8-10.8) K/ul RBC (3.93-5.22) M/uL Hgb (12.0-16.0) g/dl Hct (34.1-44.9) % MCV (80.0-100.0) fL MCH (25.0-34.0) pg MCHC (32.0-36.0) g/dL RDW Std Deviation (36.4-46.3) fL RDW Coeff of Logan (11.5-14.5) % Plt Count (130-400) K/uL MPV (9.4-12.3) fL Immature Gran % (Auto) % Neut % (Auto) % Lymph % (Auto) % [place] % (Auto) % Eos % (Auto) % Baso % (Auto) % Neut # (Auto) (1.4-6.5) K/uL Lymph # (Auto) (1.2-3.4) K/uL [place] # (Auto) (0.24-0.82) K/uL Eos # (Auto) (0-0.50) K/uL Baso # (Auto) (0-0.2) K/uL Immature Gran # (Auto) (0.00-0.02) K/uL Absolute Nucleated RBC (0-0) K/uL Nucleated RBC % (auto) % Sodium 135 L (136-145) mmol/L Potassium 3.7 (3.5-5.1) mmol/L Chloride 98 (98-107) mmol/L Carbon Dioxide 31 (21-32) mmol/L Anion Gap 6 (3-11) BUN 23 (6-23) mg/dl Creatinine 0.89 (0.6-1.2) mg/dl Est Cr Clr Drug Dosing 92.6 ml/min Est GFR ( Amer) 81.6 ml/min Est GFR (Non-Af Amer) 70.4 ml/min BUN/Creatinine Ratio 25.8 H (10-20) Glucose 90 (70-99(Fasting)) mg/dl POC Glucose 116 H 82 (70-99) mg/dl Calcium 8.9 (8.5-10.1) mg/dl Magnesium 2.1 (1.7-2.4) mg/dl Total Bilirubin 0.9 (0.2-1.0) mg/dl AST 37 (13-39) U/L ALT 73 H (7-52) U/L Alkaline Phosphatase 165 H (34-104) U/L Total Protein 7.1 (6.0-8.3) gm/dl Albumin 3.4 (3.4-5.0) gm/dl Globulin 3.7 (2.5-4.0) gm/dl Albumin/Globulin Ratio 0.9 (0.9-2) 01/18/22 01/18/22 Range/Units 09:48 07:38 WBC 9.22 (4.8-10.8) K/ul RBC 3.53 L (3.93-5.22) M/uL Hgb 9.2 L (12.0-16.0) g/dl Hct 29.4 L (34.1-44.9) % MCV 83.3 (80.0-100.0) fL MCH 26.1 (25.0-34.0) pg MCHC 31.3 L (32.0-36.0) g/dL RDW Std Deviation 48.0 H (36.4-46.3) fL RDW Coeff of Logan 16.0 H (11.5-14.5) % Plt Count 321 (130-400) K/uL MPV 9.5 (9.4-12.3) fL Immature Gran % (Auto) 0.4 % Neut % (Auto) 68.1 % Lymph % (Auto) 21.1 % [place] % (Auto) 8.2 % Eos % (Auto) 1.5 % Baso % (Auto) 0.7 % Neut # (Auto) 6.27 (1.4-6.5) K/uL Lymph # (Auto) 1.95 (1.2-3.4) K/uL [place] # (Auto) 0.76 (0.24-0.82) K/uL Eos # (Auto) 0.14 (0-0.50) K/uL Baso # (Auto) 0.06 (0-0.2) K/uL Immature Gran # (Auto) 0.04 H (0.00-0.02) K/uL Absolute Nucleated RBC 0.17 H (0-0) K/uL Nucleated RBC % (auto) 1.8 % Sodium (136-145) mmol/L Potassium (3.5-5.1) mmol/L Chloride (98-107) mmol/L Carbon Dioxide (21-32) mmol/L Anion Gap (3-11) BUN (6-23) mg/dl Creatinine (0.6-1.2) mg/dl Est Cr Clr Drug Dosing ml/min Est GFR ( Amer) ml/min Est GFR (Non-Af Amer) ml/min BUN/Creatinine Ratio (10-20) Glucose (70-99(Fasting)) mg/dl POC Glucose 103 H (70-99) mg/dl Calcium (8.5-10.1) mg/dl Magnesium (1.7-2.4) mg/dl Total Bilirubin (0.2-1.0) mg/dl AST (13-39) U/L ALT (7-52) U/L Alkaline Phosphatase (34-104) U/L Total Protein (6.0-8.3) gm/dl Albumin (3.4-5.0) gm/dl Globulin (2.5-4.0) gm/dl Albumin/Globulin Ratio (0.9-2) PG Care Time/CCT Total # of Minutes Spent Total Time Spent with Patient: Total time spent is greater than 50% in coordination of care (as documented) at patient's floor/unit and/or counseling patient: Coding Level of Care Code 63247 Subseq Hosp Care Lvl 3 Diagnoses Ventricular fibrillation I49.01 Nonischemic cardiomyopathy I42.8 Elevated LFTs R79.89 Anxiety F41.9 COPD, severe J44.9 Atrial fibrillation, permanent I48.21 Bipolar disorder F31.9 Diabetes type 2, controlled E11.8 Diabetes mellitus complication status: with unspecified complications Diabetes mellitus truck terminal manager insulin use: without truck terminal manager use GERD (gastroesophageal reflux disease) K21.9 Esophagitis presence: esophagitis presence not specified History of pulmonary embolism Z86.711 (1) Diabetes type 2, controlled Diabetes mellitus complication status: with unspecified complications Diabetes mellitus alf insulin use: without alf use Qualified Code(s): E11.8 - Type 2 diabetes mellitus with unspecified complications (2) GERD (gastroesophageal reflux disease) Esophagitis presence: esophagitis presence not specified Qualified Code(s): K21.9 - Gastro-esophageal reflux disease without esophagitis
[2022-01-18 10:15] LABS: Basophils # (auto) 0.06 K/uL (0-0.2); Basophils % (auto) 0.7 %; Eosinophils # (auto) 0.14 K/uL (0-0.50); Eosinophils % (auto) 1.5 %; Hematocrit (blood only) 29.4 % (34.1-44.9); Hemoglobin 9.2 g/dl (12.0-16.0); Immature Granulocytes # (auto) 0.04 K/uL (0.00-0.02); Immature Granulocytes % (auto) 0.4 %; Lymphocytes # (auto) 1.95 K/uL (1.2-3.4); Lymphocytes % (auto) 21.1 %; Mean Corpuscular Hemoglobin 26.1 pg (25.0-34.0); Mean Corpuscular Hgb Conc 31.3 g/dL (32.0-36.0); Mean Corpuscular Volume 83.3 fL (80.0-100.0); Mean Platelet Volume 9.5 fL (9.4-12.3); Monocytes # (auto) 0.76 K/uL (0.24-0.82); Monocytes % (auto) 8.2 %; Neutrophils # (auto) 6.27 K/uL (1.4-6.5); Neutrophils % (auto) 68.1 %; Nucleated RBC # (auto) 0.17 K/uL (0-0); Nucleated RBC % (auto) 1.8 %; Platelet Count 321 K/uL (130-400); Red Blood Count 3.53 M/uL (3.93-5.22); White Blood Count 9.22 K/ul (4.8-10.8)
[2022-01-18 10:41] LABS: Albumin Globulin Ratio 0.9 (0.9-2); Albumin Level 3.4 gm/dl (3.4-5.0); BUN Creatinine Ratio 25.8 (10-20); Bilirubin,Total 0.9 mg/dl (0.2-1.0); Calcium 8.9 mg/dl (8.5-10.1); Creatinine Clr Calc Pharmacy 92.6 ml/min; Est GFR (African American) 81.6 ml/min; Est GFR (Non-African American) 70.4 ml/min; Globulin 3.7 gm/dl (2.5-4.0); Magnesium 2.1 mg/dl (1.7-2.4); Potassium 3.7 mmol/L (3.5-5.1); Total Protein 7.1 gm/dl (6.0-8.3)
[2022-01-18] MEDS: POTASSIUM CHLORIDE CRTAB 20 MEQ TABCR PO SCH (13:24)
[2022-01-18] MEDS: RIVAROXABAN 20 MG TAB PO SCH (16:47)
[2022-01-18] MEDS: DIGOXIN 0.125 MG TAB PO SCH (16:47)
--- NOTE | 2022-01-18 17:28 | Cardiology Progress Note ---
Date of Service January 18, 2022 Assessment & Plan (1) Dizziness: (2) Atrial fibrillation: (3) Nonischemic cardiomyopathy: (4) ICD (implantable cardioverter-defibrillator) in place: (5) Pericardial effusion: (6) Mitral regurgitation: (7) Ventricular fibrillation: Plan 1. Dizziness: most recent episode related to cardiac arrhythmia. She claims to have some element of dizziness have other times as well. Perhaps related to mild hypotension. 2. Cardiomyopathy: She has been struggling with relative hypotension. This has precluded the reinstitution of her entresto. previously tried on Jardiance with adverse effect. 3. Atrial fibrillation: She appears have undergone a successful AV node ablation which was resulted in better rate control. I think she can continue on her current dose of metoprolol and digoxin. This is primarily for her cardiomyopathy and symptoms. Continue Xarelto. 4. Mitral regurgitation: Previously severe. Perhaps with biventricular pacing better rate control we will see some improvement in what is likely some functional mitral regurgitation. Mitral clip may be an option. In the past she has not been interested in aggressive intervention. 5. Biventricular ICD: Elevated right ventricular pacing threshold. Unfortunately, this is a chronic lead. Coronary sinus lead appears to be functioning normally. Lower pacing rate increased 85 beats per minute. 6. Ventricular fibrillation: This could been polymorphic VT as well. Believe this was related to relative bradycardia subsequent to AV node ablation. She had some ectopy and occasional pacing which likely triggered the event. I increased her pacing rate to 85 beats per minute. Do not believe she requires antiarrhythmics at this point. Continue metoprolol succinate. We will need to have her ambulate tomorrow to better assess her symptoms and ability for discharge. Admission and Anticipated Discharge Date Admission Date: January 17, 2022 Subjective this morning the patient reported feeling "shaky" yesterday. She states she does not feel well but has difficulty characterizing this statement. She does recall an episode last night where she attempted to get out of bed and felt dizzy. She remembers falling. She did not report any current injury. No pain. Her breathing seems to be at baseline. Review of Systems Review of Systems: Per HPI Physical Exam Physical Exam: She is alert and oriented x3. Mood affect appear normal. She answered all questions appropriately. HEENT: Sclerae are anicteric. Pupils are equal and reactive to light and accommodation. Extraocular movements were intact. Neuro: Cranial nerves intact Lungs: Lungs are clear to auscultation bilaterally. There are no rales wheezes or rhonchi. She has normal respiratory effort without use of accessory muscles. There is normal pulmonary excursion. Cardiac: The rhythm was regular. S1 and S2 were normal. There are no murmurs on examination. The PMI was not markedly displaced on palpation. Abdomen: Obese Extremities: Patient has bilateral radial pulses that are equal in intensity. There is no evidence cyanosis or clubbing. There was no evidence of significant peripheral edema bilaterally. Scar on the left anterior tibial area Skin: There are no rashes noted on examination today. Results & Data ([facility]) Vital Signs (Past 12 Hours) Vital Signs Temp Pulse Pulse Resp BP Pulse Ox O2 Del Method 01/18/22 16:47 85 01/18/22 16:00 36.5 C 85 18 90/59 L 97 Room Air 01/18/22 16:03 85 01/18/22 13:20 Nasal Cannula 01/18/22 12:00 36.7 C 84 18 113/73 99 Nasal Cannula 01/18/22 09:03 52 L 01/18/22 08:00 36.8 C 50 L 18 102/68 99 Nasal Cannula O2 Flow Rate 01/18/22 16:47 01/18/22 16:00 01/18/22 16:03 01/18/22 13:20 3 01/18/22 12:00 2 01/18/22 09:03 01/18/22 08:00 3 Laboratory Results Abnormal Lab Results 01/17/22 01/18/22 01/18/22 19:36 07:38 09:48 WBC 9.22 RBC 3.53 L Hgb 9.2 L Hct 29.4 L MCV 83.3 MCH 26.1 MCHC 31.3 L RDW Std Deviation 48.0 H RDW Coeff of Logan 16.0 H Plt Count 321 MPV 9.5 Immature Gran % (Auto) 0.4 Neut % (Auto) 68.1 Lymph % (Auto) 21.1 [place] % (Auto) 8.2 Eos % (Auto) 1.5 Baso % (Auto) 0.7 Neut # (Auto) 6.27 Lymph # (Auto) 1.95 [place] # (Auto) 0.76 Eos # (Auto) 0.14 Baso # (Auto) 0.06 Immature Gran # (Auto) 0.04 H Absolute Nucleated RBC 0.17 H Nucleated RBC % (auto) 1.8 Sodium Potassium Chloride Carbon Dioxide Anion Gap BUN Creatinine Est Cr Clr Drug Dosing Est GFR ( Amer) Est GFR (Non-Af Amer) BUN/Creatinine Ratio Glucose POC Glucose 124 H 103 H Calcium Magnesium Total Bilirubin AST ALT Alkaline Phosphatase Total Protein Albumin Globulin Albumin/Globulin Ratio 01/18/22 01/18/22 01/18/22 09:48 11:57 16:43 WBC RBC Hgb Hct MCV MCH MCHC RDW Std Deviation RDW Coeff of Logan Plt Count MPV Immature Gran % (Auto) Neut % (Auto) Lymph % (Auto) [place] % (Auto) Eos % (Auto) Baso % (Auto) Neut # (Auto) Lymph # (Auto) [place] # (Auto) Eos # (Auto) Baso # (Auto) Immature Gran # (Auto) Absolute Nucleated RBC Nucleated RBC % (auto) Sodium 135 L Potassium 3.7 Chloride 98 Carbon Dioxide 31 Anion Gap 6 BUN 23 Creatinine 0.89 Est Cr Clr Drug Dosing 92.6 Est GFR ( Amer) 81.6 Est GFR (Non-Af Amer) 70.4 BUN/Creatinine Ratio 25.8 H Glucose 90 POC Glucose 82 116 H Calcium 8.9 Magnesium 2.1 Total Bilirubin 0.9 AST 37 ALT 73 H Alkaline Phosphatase 165 H Total Protein 7.1 Albumin 3.4 Globulin 3.7 Albumin/Globulin Ratio 0.9 Diagnostic Findings I performed a complete device interrogation which revealed elevated pacing thresholds in the right ventricular lead. Normal pacing thresholds in late cor onary sinus lead. She did have an episode last night ventricular fibrillation verses polymorphic ventricular tachycardia successfully terminated with cardioversion. PG Care Time/CCT Total # of Minutes Spent Total Time Spent with Patient: Total time spent is greater than 50% in coordination of care (as documented) at patient's floor/unit and/or counseling patient: Coding Level of Care Code 52584 Subseq Hosp Care Lvl 3 Diagnoses Dizziness R42 Atrial fibrillation I48.20 Atrial fibrillation type: unspecified chronic Nonischemic cardiomyopathy I42.8 ICD (implantable cardioverter-defibrillator) in place Z95.810 Pericardial effusion I31.3 Mitral regurgitation I34.0 Ventricular fibrillation I49.01 (1) Atrial fibrillation Atrial fibrillation type: unspecified chronic Qualified Code(s): I48.20 - Chronic atrial fibrillation, unspecified
[2022-01-19] MEDS: POLYETHYLENE (MIRALAX) 17 GM PACK PO PRN ×2 (02:26→20:53)
[2022-01-19] MEDS: DOCUSATE SODIUM 100 MG CAP PO SCH ×2 (07:33→20:58)
[2022-01-19] MEDS: busPIRone 5 MG TAB PO SCH ×3 (07:33→20:58)
[2022-01-19] MEDS: ATORVASTATIN 10 MG TAB PO SCH (07:33)
[2022-01-19] MEDS: INSULIN ASPART PER UNIT SC SCH ×4 (07:34→21:05)
[2022-01-19] MEDS: MAGNESIUM OXIDE 400 MG TAB PO SCH (07:34)
[2022-01-19] MEDS: FUROSEMIDE 80 MG TAB PO SCH (07:34)
[2022-01-19] MEDS: PANTOprazole 40 MG TAB PO SCH (07:35)
[2022-01-19] MEDS: METOPROLOL SUCC 50MG EXT REL TAB PO SCH (07:35)
[2022-01-19] MEDS: UMECLIDINIUM/VILANTEROL 62.5/25MCG 7 PUFFS/INHALER INH SCH (07:35)
[2022-01-19] MEDS: QUEtiapine FUMARATE 100 MG TABLET PO SCH (07:35)
[2022-01-19] MEDS: POTASSIUM CHLORIDE CRTAB 20 MEQ TABCR PO SCH (07:35)
[2022-01-19] MEDS: PREGABALIN 150 MG CAP PO SCH ×2 (07:43→20:58)
--- NOTE | 2022-01-19 09:07 | Cardiology Progress Note ---
Date of Service January 19, 2022 Assessment & Plan (1) Dizziness: (2) Atrial fibrillation: (3) Nonischemic cardiomyopathy: (4) ICD (implantable cardioverter-defibrillator) in place: (5) Pericardial effusion: (6) Mitral regurgitation: (7) Ventricular fibrillation: Plan 1. Dizziness: most recent episode related to cardiac arrhythmia. No additional episodes 2. Cardiomyopathy: She has been struggling with relative hypotension. This has precluded the reinstitution of her entresto. previously tried on Jardiance with adverse effect. 3. Atrial fibrillation: She appears have undergone a successful AV node ablation which was resulted in better rate control. I think she can continue on her current dose of metoprolol and digoxin. This is primarily for her cardiomyopathy and symptoms. Continue Xarelto. 4. Mitral regurgitation: Previously severe. Perhaps with biventricular pacing better rate control we will see some improvement in what is likely some functional mitral regurgitation. Mitral clip may be an option. In the past she has not been interested in aggressive intervention. 5. Biventricular ICD: Elevated right ventricular pacing threshold. Unfortunately, this is a chronic lead. Coronary sinus lead appears to be functioning normally. Lower pacing rate increased 85 beats per minute. 6. Ventricular fibrillation: no recurrence. Likely related to her prior device programming. 7. Shortness of breath: She is known to have intrinsic lung disease and use supplemental oxygen at home. Overall volume status difficult to assess but no significant peripheral edema. Her last admission she actually appeared somewhat intravascularly depleted. We will see what her renal function looks like today. Perhaps we could provide her with additional dose of diuretic this afternoon. Hopefully she can be more ambulatory today. I think from a cardiac standpoint she is nearing the time when she could be discharged and managed as an outpatient. Unclear what her physical status is. Likely evaluated by PT and OT today. Admission and Anticipated Discharge Date Admission Date: January 17, 2022 Subjective This morning the patient's main complaint was breathing difficulty. She had difficulty sleeping last night because roommate was snoring. She has not had any recurrent dizziness. No significant ambulation yesterday. Tolerating diet. Review of Systems Review of Systems: Per HPI Physical Exam Physical Exam: She is alert and oriented x3. Mood affect appear normal. She answered all questions appropriately. HEENT: Sclerae are anicteric. Pupils are equal and reactive to light and accommodation. Extraocular movements were intact. Neuro: Cranial nerves intact Lungs: lungs are generally clear. However, she has poor air movement. Poor inspiration. No expiratory wheezing. Cardiac: The rhythm was regular. S1 and S2 were normal. There are no murmurs on examination. The PMI was not markedly displaced on palpation. Abdomen: Obese Extremities: Patient has bilateral radial pulses that are equal in intensity. There is no evidence cyanosis or clubbing. There was no evidence of significant peripheral edema bilaterally. Scar on the left anterior tibial area Skin: There are no rashes noted on examination today. Results & Data ([facility]) Vital Signs (Past 12 Hours) Vital Signs Temp Pulse Pulse Resp BP BP Pulse Ox 01/19/22 07:30 36.9 C 87 20 110/77 98 01/19/22 07:18 85 01/19/22 04:00 36.8 C 84 18 134/81 98 01/18/22 22:00 36.4 C L 84 18 102/60 98 01/19/22 00:07 84 01/18/22 21:52 O2 Del Method O2 Flow Rate 01/19/22 07:30 3 01/19/22 07:18 01/19/22 04:00 Nasal Cannula 3 01/18/22 22:00 Nasal Cannula 3 01/19/22 00:07 01/18/22 21:52 Nasal Cannula 3 Laboratory Results Abnormal Lab Results 01/18/22 01/18/22 01/18/22 09:48 09:48 11:57 WBC 9.22 RBC 3.53 L Hgb 9.2 L Hct 29.4 L MCV 83.3 MCH 26.1 MCHC 31.3 L RDW Std Deviation 48.0 H RDW Coeff of Logan 16.0 H Plt Count 321 MPV 9.5 Immature Gran % (Auto) 0.4 Neut % (Auto) 68.1 Lymph % (Auto) 21.1 [place] % (Auto) 8.2 Eos % (Auto) 1.5 Baso % (Auto) 0.7 Neut # (Auto) 6.27 Lymph # (Auto) 1.95 [place] # (Auto) 0.76 Eos # (Auto) 0.14 Baso # (Auto) 0.06 Immature Gran # (Auto) 0.04 H Absolute Nucleated RBC 0.17 H Nucleated RBC % (auto) 1.8 Sodium 135 L Potassium 3.7 Chloride 98 Carbon Dioxide 31 Anion Gap 6 BUN 23 Creatinine 0.89 Est Cr Clr Drug Dosing 92.6 Est GFR ( Amer) 81.6 Est GFR (Non-Af Amer) 70.4 BUN/Creatinine Ratio 25.8 H Glucose 90 POC Glucose 82 Calcium 8.9 Magnesium 2.1 Total Bilirubin 0.9 AST 37 ALT 73 H Alkaline Phosphatase 165 H Total Protein 7.1 Albumin 3.4 Globulin 3.7 Albumin/Globulin Ratio 0.9 01/18/22 16:43 WBC RBC Hgb Hct MCV MCH MCHC RDW Std Deviation RDW Coeff of Logan Plt Count MPV Immature Gran % (Auto) Neut % (Auto) Lymph % (Auto) [place] % (Auto) Eos % (Auto) Baso % (Auto) Neut # (Auto) Lymph # (Auto) [place] # (Auto) Eos # (Auto) Baso # (Auto) Immature Gran # (Auto) Absolute Nucleated RBC Nucleated RBC % (auto) Sodium Potassium Chloride Carbon Dioxide Anion Gap BUN Creatinine Est Cr Clr Drug Dosing Est GFR ( Amer) Est GFR (Non-Af Amer) BUN/Creatinine Ratio Glucose POC Glucose 116 H Calcium Magnesium Total Bilirubin AST ALT Alkaline Phosphatase Total Protein Albumin Globulin Albumin/Globulin Ratio PG Care Time/CCT Total # of Minutes Spent Total Time Spent with Patient: Total time spent is greater than 50% in coordination of care (as documented) at patient's floor/unit and/or counseling patient: Coding Level of Care Code 31709 Subseq Hosp Care Lvl 2 Diagnoses Dizziness R42 Atrial fibrillation I48.20 Atrial fibrillation type: unspecified chronic Nonischemic cardiomyopathy I42.8 ICD (implantable cardioverter-defibrillator) in place Z95.810 Pericardial effusion I31.3 Mitral regurgitation I34.0 Ventricular fibrillation I49.01 (1) Atrial fibrillation Atrial fibrillation type: unspecified chronic Qualified Code(s): I48.20 - Chronic atrial fibrillation, unspecified
[2022-01-19 14:55] LABS: Basophils # (auto) 0.03 K/uL (0-0.2); Basophils % (auto) 0.3 %; Hematocrit (blood only) 32.2 % (34.1-44.9); Hemoglobin 9.9 g/dl (12.0-16.0); Immature Granulocytes # (auto) 0.03 K/uL (0.00-0.02); Immature Granulocytes % (auto) 0.3 %; Lymphocytes # (auto) 1.74 K/uL (1.2-3.4); Mean Corpuscular Hemoglobin 25.9 pg (25.0-34.0); Mean Corpuscular Hgb Conc 30.7 g/dL (32.0-36.0); Mean Corpuscular Volume 84.3 fL (80.0-100.0); Mean Platelet Volume 9.3 fL (9.4-12.3); Monocytes # (auto) 0.84 K/uL (0.24-0.82); Monocytes % (auto) 8.7 %; Neutrophils # (auto) 6.93 K/uL (1.4-6.5); Neutrophils % (auto) 71.7 %; Nucleated RBC # (auto) 0.11 K/uL (0-0); Nucleated RBC % (auto) 1.1 %; Platelet Count 347 K/uL (130-400); RDW Coefficient of Variation 16.4 % (11.5-14.5); RDW Standard Deviation 50.3 fL (36.4-46.3); Red Blood Count 3.82 M/uL (3.93-5.22); White Blood Count 9.67 K/ul (4.8-10.8)
[2022-01-19 15:22] LABS: Albumin Level 3.7 gm/dl (3.4-5.0); BUN Creatinine Ratio 20.4 (10-20); Bilirubin Direct 0.2 mg/dl (0-0.2); Bilirubin,Total 0.9 mg/dl (0.2-1.0); Calcium 9.1 mg/dl (8.5-10.1); Creatinine Clr Calc Pharmacy 72.8 ml/min; Est GFR (African American) 61.2 ml/min; Est GFR (Non-African American) 52.8 ml/min; Magnesium 2.1 mg/dl (1.7-2.4); Phosphorus 3.4 mg/dl (2.5-4.9); Potassium 4.9 mmol/L (3.5-5.1); Total Protein 7.6 gm/dl (6.0-8.3)
[2022-01-19] MEDS: ACETAMINOPHEN 325 MG TAB PO PRN (16:39)
[2022-01-19] MEDS: RIVAROXABAN 20 MG TAB PO SCH (16:40)
[2022-01-19] MEDS: DIGOXIN 0.125 MG TAB PO SCH (16:42)
--- NOTE | 2022-01-19 19:45 | Hospitalist Progress Note ---
Date of Service January 19, 2022 Assessment & Plan (1) Ventricular fibrillation: Plan: Initially presented with what she thought was ICD firing at home when her arms were shaking while trying to lower herself to the toilet. Pacer interrogation after admission was without any evidence of ICD firing. Night of 01/17/22 - episode of syncope. Tele with ~ 40 seconds of ventricular fibrillation versus polymorphic VT per cardiology. She had 3 ICD shocks fired. No chest compressions. She did arouse after that. Following the events of 01/17 cardiology felt that the event was related to relative bradycardia. She had some ectopy and occasional pacing which likely tr iggered the event. Her pacemaker had been set to a rate of 50 s/p AV jennifer ablation during her previous admission. Cardiology increased pacer rate to 85 to prevent this from happening again. No VT/VF overnight. Continue telemetry. (2) Nonischemic cardiomyopathy: Plan: Chronic systolic heart failure. Appears compensated although weight is above dry weight today (dry weight = 260 pounds). Continue Metoprolol, dig, lasix. Entresto has been on hold due to hypotension issues recently. (3) Elevated LFTs: Plan: Present on admission -- AST, ALT, and alkaline phosphatase all elevated but now improving Suspect hepatic congestion from decompensated CHF Continue diuresis with Lasix (4) Anxiety: Plan: Continue home medications including recently started buspar TID (5) COPD, severe: Plan: without exacerbation at this time (6) Atrial fibrillation, permanent: Plan: s/p AV jennifer ablation 01/12/22. Pacer rate adjusted to 85 this admission (had been 50). Continue Digoxin Continue Toprol ECHO repeat 01/15 as per Cardiology to recheck LV function now that rates controlled shows slight improvement at EF 30-35% (up from 25-30%) and mild pericardial effusion (previous was moderate) Continue Xarelto (7) Bipolar disorder: Plan: Continue Seroquel, Trazodone Continue Buspar (8) Diabetes type 2, controlled: Plan: Diabetes type 2, controlled: a1c <6.5% novolog SSI (9) GERD (gastroesophageal reflux disease): Plan: cont PPI (10) History of pulmonary embolism: Plan: Continue Xarelto (11) Abdominal pain: Plan: constipation? other? CT a/p 05/2021 with diverticular disease start with KUB x-ray and go from there (12) Chronic systolic CHF (congestive heart failure): Plan: see above Plan seen by PT/OT - both suggesting she may need rehab Admission and Anticipated Discharge Date Admission Date: January 17, 2022 Subjective patient c/o feeling very tired did not sleep well last night c/o mild left-sided abd discomfort did have BM this am but had to strain to have such eating fair denies any dyspnea beyond baseline dyspnea no chest pain endorses anxiety tele overnight - no VT or other dysrhythmia Review of Systems Review of Systems: gen - no fevers cv - no chest pain pulm - no cough GI - no vomiting Physical Exam Physical Exam: gen - looks tired, NAD neck - difficult to asses JVD due to neck size mouth - MMM heart - RRR, s1 s2, 1/6 systolic murmur LSB lungs - decreased BS bases, CTA b/l otherwise abd - mildly tender junction of LUQ/LLQ, ND, soft, BS+ ext - no edema, pulses 2+ b/l psych - flat affect Results & Data Results & Data ([facility]) Vital Signs (Past 12 Hours) Vital Signs Temp Pulse Pulse Resp BP BP Pulse Ox 01/19/22 19:28 36.4 C L 84 18 114/76 96 01/19/22 16:42 87 01/19/22 15:14 36.8 C 83 18 122/82 100 01/19/22 11:01 36.8 C 84 20 111/84 99 01/19/22 09:29 O2 Del Method O2 Flow Rate 01/19/22 19:28 Nasal Cannula 3 01/19/22 16:42 01/19/22 15:14 3 01/19/22 11:01 3 01/19/22 09:29 Nasal Cannula Laboratory Results Laboratory Results - last 24 hr 01/19/22 01/19/22 14:32 14:32 WBC 9.67 RBC 3.82 L Hgb 9.9 L Hct 32.2 L MCV 84.3 MCH 25.9 MCHC 30.7 L RDW Std Deviation 50.3 H RDW Coeff of Logan 16.4 H Plt Count 347 MPV 9.3 L Immature Gran % (Auto) 0.3 Neut % (Auto) 71.7 Lymph % (Auto) 18.0 Coles % (Auto) 8.7 Eos % (Auto) 1.0 Baso % (Auto) 0.3 Neut # (Auto) 6.93 H Lymph # (Auto) 1.74 [place]es # (Auto) 0.84 H Eos # (Auto) 0.10 Baso # (Auto) 0.03 Immature Gran # (Auto) 0.03 H Absolute Nucleated RBC 0.11 H Nucleated RBC % (auto) 1.1 Sodium 134 L Potassium 4.9 D Chloride 99 Carbon Dioxide 28 Anion Gap 7 BUN 23 Creatinine 1.13 Est Cr Clr Drug Dosing 72.8 Est GFR ( Amer) 61.2 Est GFR (Non-Af Amer) 52.8 BUN/Creatinine Ratio 20.4 H Glucose 107 H Calcium 9.1 Phosphorus 3.4 Magnesium 2.1 Total Bilirubin 0.9 Direct Bilirubin 0.2 AST 29 ALT 60 H Alkaline Phosphatase 180 H Total Protein 7.6 Albumin 3.7 PG Care Time/CCT Total # of Minutes Spent Total Time Spent with Patient: Total time spent is greater than 50% in coordination of care (as documented) at patient's floor/unit and/or counseling patient: Coding Level of Care Code 30333 Subseq Obs Care Lvl 2 Diagnoses Ventricular fibrillation I49.01 Nonischemic cardiomyopathy I42.8 Elevated LFTs R79.89 Anxiety F41.9 COPD, severe J44.9 Atrial fibrillation, permanent I48.21 Bipolar disorder F31.9 Diabetes type 2, controlled E11.8 Diabetes mellitus complication status: with unspecified complications Diabetes mellitus intermediate designer insulin use: without intermediate designer use GERD (gastroesophageal reflux disease) K21.9 Esophagitis presence: esophagitis presence not specified History of pulmonary embolism Z86.711 Abdominal pain R10.9 Chronic systolic CHF (congestive heart failure) I50.22 (1) Diabetes type 2, controlled Diabetes mellitus complication status: with unspecified complications Diabetes mellitus mcc insulin use: without intermediate designer use Qualified Code(s): E11.8 - Type 2 diabetes mellitus with unspecified complications (2) GERD (gastroesophageal reflux disease) Esophagitis presence: esophagitis presence not specified Qualified Code(s): K21.9 - Gastro-esophageal reflux disease without esophagitis
[2022-01-19] MEDS: QUEtiapine FUMARATE 200 MG TAB PO SCH (20:58)
[2022-01-19] MEDS: traZODone HCL 100 MG TAB PO SCH (20:58)
[2022-01-20] MEDS: METOPROLOL SUCC 50MG EXT REL TAB PO SCH (08:25)
[2022-01-20] MEDS: PANTOprazole 40 MG TAB PO SCH (08:25)
[2022-01-20] MEDS: MAGNESIUM OXIDE 400 MG TAB PO SCH (08:25)
[2022-01-20] MEDS: POTASSIUM CHLORIDE CRTAB 20 MEQ TABCR PO SCH (08:25)
[2022-01-20] MEDS: ATORVASTATIN 10 MG TAB PO SCH (08:25)
[2022-01-20] MEDS: FUROSEMIDE 80 MG TAB PO SCH (08:25)
[2022-01-20] MEDS: QUEtiapine FUMARATE 100 MG TABLET PO SCH (08:25)
[2022-01-20] MEDS: DOCUSATE SODIUM 100 MG CAP PO SCH ×2 (08:26→20:13)
[2022-01-20] MEDS: UMECLIDINIUM/VILANTEROL 62.5/25MCG 7 PUFFS/INHALER INH SCH (08:26)
[2022-01-20] MEDS: busPIRone 5 MG TAB PO SCH ×3 (08:26→20:15)
[2022-01-20] MEDS: PREGABALIN 150 MG CAP PO SCH ×2 (08:31→20:13)
[2022-01-20 08:40] LABS: BUN Creatinine Ratio 16.4 (10-20); Calcium 9.1 mg/dl (8.5-10.1); Creatinine Clr Calc Pharmacy 64.5 ml/min; Est GFR (African American) 52.6 ml/min; Est GFR (Non-African American) 45.4 ml/min; Potassium 4.5 mmol/L (3.5-5.1)
[2022-01-20] MEDS: INSULIN ASPART PER UNIT SC SCH ×4 (09:07→21:21)
--- NOTE | 2022-01-20 09:34 | Cardiology Progress Note ---
Date of Service January 20, 2022 Assessment & Plan (1) Dizziness: (2) Atrial fibrillation: (3) Nonischemic cardiomyopathy: (4) ICD (implantable cardioverter-defibrillator) in place: (5) Pericardial effusion: (6) Mitral regurgitation: (7) Ventricular fibrillation: Plan 1. Dizziness: most recent episode related to cardiac arrhythmia. No additional episodes. ambulatory yesterday without dizziness 2. Cardiomyopathy: She has been struggling with relative hypotension. This has precluded the reinstitution of her entresto. previously tried on Jardiance with adverse effect. continue metoprolol anti junction. 3. Atrial fibrillation: She appears have undergone a successful AV node ablation which was resulted in better rate control. I think she can continue on her current dose of metoprolol and digoxin. This is primarily for her cardiomyopathy and symptoms. Continue Xarelto. 4. Mitral regurgitation: Previously severe. Perhaps with biventricular pacing better rate control we will see some improvement in what is likely some functional mitral regurgitation. Mitral clip may be an option. In the past she has not been interested in aggressive intervention. 5. Biventricular ICD: Elevated right ventricular pacing threshold. Unfortunately, this is a chronic lead. Coronary sinus lead appears to be functioning normally. Lower pacing rate increased 85 beats per minute. 6. Ventricular fibrillation: no recurrence. Likely related to her prior device programming. 7. Shortness of breath: Chronic. Unclear if this is worse than baseline. Lung examination fairly unremarkable. However, I will prescribe her an additional dose of diuretic this afternoon. she is very concerned about her home situation he. However, she does not want to go to rehab. Hopefully she will be more ambulatory today he will have an opportunity to get her directly home. Admission and Anticipated Discharge Date Admission Date: January 17, 2022 Subjective This morning the patient claims to be feeling better. She is able to sleep some yesterday. She continues to have some dyspnea with activity. She was ambulatory yesterday with a walker and physical therapy. She denies significant dizziness. Review of Systems Review of Systems: Per HPI. tearful today regarding her home situation and difficulty living independently Physical Exam Physical Exam: She is alert and oriented x3. Mood affect appear normal. She answered all questions appropriately. HEENT: Sclerae are anicteric. Pupils are equal and reactive to light and accommodation. Extraocular movements were intact. Neuro: Cranial nerves intact Lungs: lungs are generally clear. However, she has poor air movement. Poor inspiration. No expiratory wheezing. Cardiac: The rhythm was regular. S1 and S2 were normal. There are no murmurs on examination. The PMI was not markedly displaced on palpation. Abdomen: Obese Extremities: Patient has bilateral radial pulses that are equal in intensity. There is no evidence cyanosis or clubbing. There was no evidence of significant peripheral edema bilaterally. Scar on the left anterior tibial area Skin: There are no rashes noted on examination today. Results & Data ([facility]) Vital Signs (Past 12 Hours) Vital Signs Temp Pulse Pulse Resp BP Pulse Ox O2 Del Method 01/20/22 07:30 84 01/20/22 06:52 36.7 C 82 20 130/74 98 Nasal Cannula 01/20/22 04:00 36.4 C L 84 20 113/74 99 Nasal Cannula 01/19/22 22:16 84 01/19/22 23:38 36.8 C 84 20 128/63 99 Nasal Cannula O2 Flow Rate 01/20/22 07:30 01/20/22 06:52 3 01/20/22 04:00 3 01/19/22 22:16 01/19/22 23:38 3 Laboratory Results Abnormal Lab Results 01/19/22 01/19/22 01/20/22 14:32 14:32 06:55 WBC 9.67 RBC 3.82 L Hgb 9.9 L Hct 32.2 L MCV 84.3 MCH 25.9 MCHC 30.7 L RDW Std Deviation 50.3 H RDW Coeff of Logan 16.4 H Plt Count 347 MPV 9.3 L Immature Gran % (Auto) 0.3 Neut % (Auto) 71.7 Lymph % (Auto) 18.0 [place] % (Auto) 8.7 Eos % (Auto) 1.0 Baso % (Auto) 0.3 Neut # (Auto) 6.93 H Lymph # (Auto) 1.74 [place] # (Auto) 0.84 H Eos # (Auto) 0.10 Baso # (Auto) 0.03 Immature Gran # (Auto) 0.03 H Absolute Nucleated RBC 0.11 H Nucleated RBC % (auto) 1.1 Sodium 134 L 136 Potassium 4.9 D 4.5 Chloride 99 99 Carbon Dioxide 28 32 Anion Gap 7 5 BUN 23 21 Creatinine 1.13 1.28 H Est Cr Clr Drug Dosing 72.8 64.5 Est GFR ( Amer) 61.2 52.6 Est GFR (Non-Af Amer) 52.8 45.4 BUN/Creatinine Ratio 20.4 H 16.4 Glucose 107 H 82 Calcium 9.1 9.1 Phosphorus 3.4 Magnesium 2.1 Total Bilirubin 0.9 Direct Bilirubin 0.2 AST 29 ALT 60 H Alkaline Phosphatase 180 H Total Protein 7.6 Albumin 3.7 PG Care Time/CCT Total # of Minutes Spent Total Time Spent with Patient: Total time spent is greater than 50% in coordination of care (as documented) at patient's floor/unit and/or counseling patient: Coding Level of Care Code 86826 Subseq Hosp Care Lvl 2 Diagnoses Dizziness R42 Atrial fibrillation I48.20 Atrial fibrillation type: unspecified chronic Nonischemic cardiomyopathy I42.8 ICD (implantable cardioverter-defibrillator) in place Z95.810 Pericardial effusion I31.3 Mitral regurgitation I34.0 Ventricular fibrillation I49.01 (1) Atrial fibrillation Atrial fibrillation type: unspecified chronic Qualified Code(s): I48.20 - Chronic atrial fibrillation, unspecified
[2022-01-20] MEDS: POLYETHYLENE (MIRALAX) 17 GM PACK PO PRN (13:34)
--- NOTE | 2022-01-20 13:44 | Electrocardiogram Report ---
Test Reason : Blood Pressure : / mmHG Vent. Rate : 084 BPM Atrial Rate : 041 BPM P-R Int : 000 ms QRS Dur : 166 ms QT Int : 456 ms P-R-T Axes : 108 -23 096 degrees QTc Int : 538 ms Ventricular-paced rhythm Biventricular pacemaker detected Abnormal ECG When compared with ECG of 17-JAN-2022 20:19, Vent. rate has increased BY 24 BPM Confirmed by Nolan Douglas ([id number]) on 01/20/2022 1:44:04 PM Referred By: REFERRED SELF Confirmed By:Nolan Douglas
[2022-01-20] MEDS: RIVAROXABAN 20 MG TAB PO SCH (15:21)
[2022-01-20] MEDS: DIGOXIN 0.125 MG TAB PO SCH (15:21)
[2022-01-20] MEDS ORDERED: FUROSEMIDE 80 MG TAB PO ONE (18:09)
[2022-01-20] MEDS ORDERED: POTASSIUM CHLORIDE CRTAB 20 MEQ TABCR PO ONE (18:09)
[2022-01-20] MEDS: traZODone HCL 100 MG TAB PO SCH (20:14)
[2022-01-20] MEDS: QUEtiapine FUMARATE 200 MG TAB PO SCH (20:15)
--- NOTE | 2022-01-20 22:21 | Hospitalist Progress Note ---
Date of Service January 20, 2022 Assessment & Plan (1) Abdominal pain: Plan: prior CT a/p 05/2021 with diverticular disease colonoscopy in the past with extensive diverticulosis entire colon LLQ pain - diverticulitis vs colitis vs kidney stone vs other patient IS agreeable to CT a/p with IV/PO contrast results will dictate plan of care pain meds prn (2) Ventricular fibrillation: Plan: Initially presented with what she thought was ICD firing at home when her arms were shaking while trying to lower herself to the toilet. Pacer interrogation after admission was without any evidence of ICD firing. Night of 01/17/22 - episode of syncope. Tele with ~ 40 seconds of ventricular fibrillation versus polymorphic VT per cardiology. She had 3 ICD shocks fired. No chest compressions. She did arouse after that. Following the events of 01/17 cardiology felt that the event was related to relative bradycardia. She had some ectopy and occasional pacing which likely triggered the event. Her pacemaker had been set to a rate of 50 s/p AV jennifer ablation during her previous admission. Cardiology increased pacer rate to 85 to prevent this from happening again. No VT/VF overnight. Continue telemetry. (3) Nonischemic cardiomyopathy: Plan: Chronic systolic heart failure. Additional dose of lasix given today by cardiology. Continue Metoprolol, dig, lasix. Entresto has been on hold due to hypotension issues recently. (4) Elevated LFTs: Plan: Present on admission -- AST, ALT, and alkaline phosphatase all elevated but now improving Suspect hepatic congestion from decompensated CHF Continue diuresis with Lasix (5) Anxiety: Plan: Continue home medications including recently started buspar TID (6) COPD, severe: Plan: without exacerbation at this time (7) Atrial fibrillation, permanent: Plan: s/p AV jennifer ablation 01/12/22. Pacer rate adjusted to 85 this admission (had been 50). Continue Digoxin Continue Toprol ECHO repeat 01/15 as per Cardiology to recheck LV function now that rates controlled shows slight improvement at EF 30-35% (up from 25-30%) and mild pericardial effusion (previous was moderate) Continue Xarelto (8) Bipolar disorder: Plan: Continue Seroquel, Trazodone Continue Buspar (9) Diabetes type 2, controlled: Plan: Diabetes type 2, controlled: a1c <6.5% novolog SSI (10) GERD (gastroesophageal reflux disease): Plan: cont PPI (11) History of pulmonary embolism: Plan: Continue Xarelto (12) Chronic systolic CHF (congestive heart failure): Plan: see above Plan seen by PT/OT - both suggesting she may need rehab no d/c due to LLQ abd pain and needing CT change observation to full admission status Admission and Anticipated Discharge Date Admission Date: January 20, 2022 Subjective main complaint is that of ongoing left-sided abdominal pain/LLQ pain had poor appetite today because of such simply doesn't feel well also feels constipated no dyspnea no cp tele overnight - no VT/VF Review of Systems Review of Systems: gen - no fevers or chills cv - no chest pain pulm - no cough GI - nausea with emesis x 1 today; some mucous in stool Physical Exam Physical Exam: gen - looks ill today neck - difficult to asses JVD due to neck size mouth - MMM heart - RRR, s1 s2, 1/6 systolic murmur LSB lungs - decreased BS bases, CTA b/l otherwise abd - moderate tenderness LLQ to palpation; soft; no peritoneal signs; no HSM; BS+ ext - no edema, pulses 2+ b/l psych - flat affect Results & Data Results & Data ([facility]) Vital Signs (Past 12 Hours) Vital Signs Temp Pulse Pulse Resp BP BP Pulse Ox 01/20/22 20:00 36.7 C 82 20 110/56 L 98 01/20/22 19:09 84 01/20/22 18:38 01/20/22 16:18 36.8 C 84 18 113/84 100 O2 Del Method O2 Flow Rate 01/20/22 20:00 Room Air 01/20/22 19:09 01/20/22 18:38 Nasal Cannula 3 01/20/22 16:18 Nasal Cannula 3 Laboratory Results Laboratory Results - last 24 hr 01/20/22 01/20/22 01/20/22 06:55 11:33 16:42 Sodium 136 Potassium 4.5 Chloride 99 Carbon Dioxide 32 Anion Gap 5 BUN 21 Creatinine 1.28 H Est Cr Clr Drug Dosing 64.5 Est GFR ( Amer) 52.6 Est GFR (Non-Af Amer) 45.4 BUN/Creatinine Ratio 16.4 Glucose 82 POC Glucose 101 H 120 H Calcium 9.1 01/20/22 20:36 Sodium Potassium Chloride Carbon Dioxide Anion Gap BUN Creatinine Est Cr Clr Drug Dosing Est GFR ( Amer) Est GFR (Non-Af Amer) BUN/Creatinine Ratio Glucose POC Glucose 117 H Calcium PG Care Time/CCT Total # of Minutes Spent Total Time Spent with Patient: Total time spent is greater than 50% in coordination of care (as documented) at patient's floor/unit and/or counseling patient: Coding Level of Care Code 84034 Subseq Hosp Care Lvl 2 Diagnoses Abdominal pain R10.9 Ventricular fibrillation I49.01 Nonischemic cardiomyopathy I42.8 Elevated LFTs R79.89 Anxiety F41.9 COPD, severe J44.9 Atrial fibrillation, permanent I48.21 Bipolar disorder F31.9 Diabetes type 2, controlled E11.8 Diabetes mellitus complication status: with unspecified complications Diabetes mellitus longterm insulin use: without surveillance systems engineer use GERD (gastroesophageal reflux disease) K21.9 Esophagitis presence: esophagitis presence not specified History of pulmonary embolism Z86.711 Chronic systolic CHF (congestive heart failure) I50.22 (1) Diabetes type 2, controlled Diabetes mellitus complication status: with unspecified complications Diabetes mellitus longterm insulin use: without surveillance systems engineer use Qualified Code(s): E11.8 - Type 2 diabetes mellitus with unspecified complications (2) GERD (gastroesophageal reflux disease) Esophagitis presence: esophagitis presence not specified Qualified Code(s): K21.9 - Gastro-esophageal reflux disease without esophagitis
[2022-01-20] MEDS ORDERED: OPTIRAY 300 100mL IV ONE (22:23)
[2022-01-21 07:26] LABS: Basophils # (auto) 0.05 K/uL (0-0.2); Basophils % (auto) 0.5 %; Eosinophils # (auto) 0.17 K/uL (0-0.50); Eosinophils % (auto) 1.7 %; Hematocrit (blood only) 30.5 % (34.1-44.9); Hemoglobin 9.4 g/dl (12.0-16.0); Immature Granulocytes # (auto) 0.04 K/uL (0.00-0.02); Immature Granulocytes % (auto) 0.4 %; Lymphocytes # (auto) 1.93 K/uL (1.2-3.4); Lymphocytes % (auto) 19.2 %; Mean Corpuscular Hemoglobin 25.5 pg (25.0-34.0); Mean Corpuscular Hgb Conc 30.8 g/dL (32.0-36.0); Mean Corpuscular Volume 82.9 fL (80.0-100.0); Mean Platelet Volume 9.2 fL (9.4-12.3); Monocytes # (auto) 0.72 K/uL (0.24-0.82); Monocytes % (auto) 7.2 %; Neutrophils # (auto) 7.14 K/uL (1.4-6.5); Nucleated RBC # (auto) 0.04 K/uL (0-0); Nucleated RBC % (auto) 0.4 %; Platelet Count 332 K/uL (130-400); RDW Coefficient of Variation 16.2 % (11.5-14.5); RDW Standard Deviation 49.2 fL (36.4-46.3); Red Blood Count 3.68 M/uL (3.93-5.22); White Blood Count 10.05 K/ul (4.8-10.8)
--- NOTE | 2022-01-21 07:49 | CT Scan Report ---
ABDOMEN AND PELVIS CT WITH IV AND ORAL CONTRAST CT DOSE: 1609.13 mGy.cm HISTORY: Left lower quadrant abdominal pain. TECHNIQUE: Multiaxial CT images of the abdomen and pelvis were performed following the use of intrave nous and oral contrast. A dose lowering technique was utilized adhering to the principles of ALARA. COMPARISON STUDY: Abdomen and pelvis CT 05/11/2021. FINDINGS: A 6 mm subpleural nodular density within the right middle lobe on image 32. This appears st able compared the prior study. Mild dependent changes seen within the lung bases. There is also subse gmental atelectasis within the right lower lobe. Small right pleural effusion. The heart remains enla rged. A pacemaker wire is identified. Small pericardial effusion, unchanged. There is a tiny hiatus h ernia.. No suspicious lytic or blastic osseous lesions. Mild body wall edema. The liver is enlarged a nd demonstrates a subtle nodular contour consistent with cirrhosis. This remains unchanged. Trace per icholecystic fluid/edema. No gallbladder wall thickening. The spleen and pancreas unremarkable. There are small bilateral adrenal gland nodules with the largest on the right measuring 15 mm. These remai n unchanged. Subcentimeter retroperitoneal lymph nodes do not meet CT criteria for pathologic involve ment. The uterus and adnexa are unremarkable. Normal bladder. There is a 3 mm obstructing stone withi n the distal left ureter on image 396 resulting in mild left hydroureteronephrosis and mild left dot ureteral edema. There is a punctate stone within the lower pole the left kidney. No right renal calcu li. Mild bilateral perinephric edema is noted. Normal caliber abdominal aorta. The distal left ureter al stone is immediately proximal to the left ureterovesical junction. Colonic diverticulosis. No evid ence for acute diverticulitis. No bowel wall thickening or obstruction. Normal appendix. Evidence for prior small bowel anastomosis. IMPRESSION: 1. A 3 mm obstructing stone within the distal left ureter resulting in mild left hydronephrosis. 2. Left-sided nephrolithiasis. 3. Hepatomegaly with a nodular contour to the liver consistent with cirrhosis. 4. Trace pericholecystic edema. This is likely due to the patient's diffuse edematous state. There is no gallbladder wall thickening. 5. Colonic diverticulosis. No evidence for acute diverticulitis. 6. No bowel wall thickening or obstruction. 7. Small right pleural effusions and cardiomegaly. 8. Additional findings as described above. ACT 112: Negative or not required by law. Electronically signed by: Tyler Davis M.D. 01/21/2022 7:46 AM
[2022-01-21 07:54] LABS: BUN Creatinine Ratio 14.8 (10-20); Creatinine Clr Calc Pharmacy 61.1 ml/min; Est GFR (African American) 49.3 ml/min; Est GFR (Non-African American) 42.6 ml/min; Potassium 4.3 mmol/L (3.5-5.1)
[2022-01-21] MEDS: PANTOprazole 40 MG TAB PO SCH (08:41)
[2022-01-21] MEDS: FUROSEMIDE 80 MG TAB PO SCH (08:41)
[2022-01-21] MEDS: POTASSIUM CHLORIDE CRTAB 20 MEQ TABCR PO SCH (08:41)
[2022-01-21] MEDS: QUEtiapine FUMARATE 100 MG TABLET PO SCH (08:41)
[2022-01-21] MEDS: UMECLIDINIUM/VILANTEROL 62.5/25MCG 7 PUFFS/INHALER INH SCH (08:42)
[2022-01-21] MEDS: METOPROLOL SUCC 50MG EXT REL TAB PO SCH (08:42)
[2022-01-21] MEDS: ATORVASTATIN 10 MG TAB PO SCH (08:42)
[2022-01-21] MEDS: MAGNESIUM OXIDE 400 MG TAB PO SCH (08:42)
[2022-01-21] MEDS: busPIRone 5 MG TAB PO SCH ×3 (08:42→20:06)
[2022-01-21] MEDS: PREGABALIN 150 MG CAP PO SCH ×2 (08:51→20:06)
[2022-01-21] MEDS: DOCUSATE SODIUM 100 MG CAP PO SCH ×2 (08:51→20:07)
[2022-01-21 09:16] LABS: Appearance Urine Clear (Clear); Bacteria Urine Automated Negative (Negative); Bilirubin Urine Negative (Negative); Blood Urine Negative (Negative); Cast Urine Automated 0 /lpf (0-5); Color Urine Yellow; Epithelial Cell Urine Auto 20-30 /lpf (0-5); Glucose Urine UA Negative (Negative); Ketones Urine Negative (Negative); Leukocyte Esterase Urine Trace (Negative); Nitrite Urine Negative (Negative); Protein Urine Negative (Negative); RBC Urine Automated 0-4 /hpf (0-4); Specific Gravity Urine 1.022 (1.000-1.030); Urobilinogen Urine Negative (Negative)
[2022-01-21] MEDS: INSULIN ASPART PER UNIT SC SCH ×4 (09:36→20:39)
--- NOTE | 2022-01-21 13:06 | Hospitalist Progress Note ---
Date of Service January 21, 2022 Assessment & Plan (1) Kidney stone on left side: Plan: 2mm distal stone at the UVJ. High chance of spontaneous passage. She is less painful today in the LLQ. Checked KUB xray this afternoon - stone not seen but very small in size. Flomax 0.4mg daily. Watch for orthostasis. Usually would hydrate with IV fluids but unable to do so because of severe CHF. Pain meds prn. Strain all urine. (2) Ventricular fibrillation: Plan: Initially presented with what she thought was ICD firing at home when her arms were shaking while trying to lower herself to the toilet. Pacer interrogation after admission was without any evidence of ICD firing. Night of 01/17/22 - episode of syncope. Tele with ~ 40 seconds of ventricular fibrillation versus polymorphic VT per cardiology. She had 3 ICD shocks fired. No chest compressions. She did arouse after that. Following the events of 01/17 cardiology felt that the event was related to relative bradycardia. She had some ectopy and occasional pacing which likely triggered the event. Her pacemaker had been set to a rate of 50 s/p AV jennifer ablation during her previous admission. Cardiology increased pacer rate to 85 to prevent this from happening again. No VT/VF overnight. Continue telemetry. (3) Nonischemic cardiomyopathy: Plan: Chronic systolic heart failure. Order placed for STANDING SCALE weights daily. Weight was 265 standing today; dry weight is ~260. Continue Metoprolol, dig, lasix. Entresto has been on hold due to hypotension issues recently. (4) Elevated LFTs: Plan: Present on admission -- AST, ALT, and alkaline phosphatase all elevated but now improving Suspect hepatic congestion from decompensated CHF Continue diuresis with Lasix Repeat LFTs am (5) Anxiety: Plan: Continue home medications including recently started buspar TID (6) COPD, severe: Plan: without exacerbation at this time (7) Atrial fibrillation, permanent: Plan: s/p AV jennifer ablation 01/12/22. Pacer rate adjusted to 85 this admission (had been 50). Continue Digoxin Continue Toprol ECHO repeat 01/15 as per Cardiology to recheck LV function now that rates controlled shows slight improvement at EF 30-35% (up from 25-30%) and mild pericardial effusion (previous was moderate) Continue Xarelto (8) Bipolar disorder: Plan: Continue Seroquel, Trazodone Continue Buspar (9) Diabetes type 2, controlled: Plan: Diabetes type 2, controlled: a1c <6.5% novolog SSI (10) GERD (gastroesophageal reflux disease): Plan: cont PPI (11) History of pulmonary embolism: Plan: Continue Xarelto (12) Chronic systolic CHF (congestive heart failure): Plan: see above (13) Constipation: Plan: ongoing issue this entire stay dulcolax 5mg po x 1 now miralax BID may need standing senna as well Plan seen by PT/OT - likely has progressed enough to return home with family support & home health no discharge due to #1 hopefully she will pass the stone Admission and Anticipated Discharge Date Admission Date: January 20, 2022 Subjective patient reports LLQ abd pain is better this am now c/o pain over her sacral region denies L flank pain despite drinking contrast for CT scan last pm she HAS NOT had any bowel movement overnight or this am that was satisfactory (tiny amount only) denies any dyspnea beyond baseline this am tele overnight - no VT or VF or PAF no chest pain remains anxious about "all the stuff going on" Review of Systems Review of Systems: gen - no fevers cv - no chest pain pulm - no cough GI - no nausea/emesis; tolerating meals Physical Exam Physical Exam: gen - looks better today; more comfortable neck - difficult to asses JVD due to neck size mouth - MMM heart - RRR, s1 s2, 1/6 systolic murmur LSB lungs - decreased BS bases, CTA b/l otherwise abd - no tenderness to palpation today over LLQ; soft; no peritoneal signs; no HSM; BS+; no flank tenderness to palpation ext - no edema, pulses 2+ b/l psych - flat affect back - mildly tender lumbosacral region to palpation Results & Data Results & Data ([facility]) Vital Signs (Past 12 Hours) Vital Signs Temp Pulse Pulse Resp BP BP Pulse Ox 01/21/22 11:46 36.8 C 84 18 113/88 98 01/21/22 09:37 01/21/22 08:10 36.4 C L 84 20 92/61 L 99 01/21/22 07:18 84 01/21/22 03:00 84 19 96/63 L 89 L O2 Del Method O2 Flow Rate 01/21/22 11:46 3 08/18/22 09:37 Nasal Cannula 3 01/21/22 08:10 Nasal Cannula 3 01/21/22 07:18 01/21/22 03:00 Nasal Cannula Laboratory Results Abdomen/Pelvis CT 01/20/22 18:[address] WITH IV AND ORAL CONTRAST CT DOSE: 1609.13 mGy.cm HISTORY: Left lower quadrant abdominal pain. TECHNIQUE: Multiaxial CT images of the abdomen and pelvis were performed following the use of intravenous and oral contrast. A dose lowering technique was utilized adhering to the principles of ALARA. COMPARISON STUDY: Abdomen and pelvis CT 05/11/2021. FINDINGS: A 6 mm subpleural nodular density within the right middle lobe on image 32. This appears stable compared the prior study. Mild dependent changes seen within the lung bases. There is also subsegmental atelectasis within the right lower lobe. Small right pleural effusion. The heart remains enlarged. A pacemaker wire is identified. Small pericardial effusion, unchanged. There is a tiny hiatus hernia.. No suspicious lytic or blastic osseous lesions. Mild body wall edema. The liver is enlarged and demonstrates a subtle nodular contour consistent with cirrhosis. This remains unchanged. Trace pericholecystic fluid/edema. No gallbladder wall thickening. The spleen and pancreas unremarkable. There are small bilateral adrenal gland nodules with the largest on the right measuring 15 mm. These remain unchanged. Subcentimeter retroperitoneal lymph nodes do not meet CT criteria for pathologic involvement. The uterus and adnexa are unremarkable. Normal bladder. There is a 3 mm obstructing stone within the distal left ureter on image 396 resulting in mild left hydroureteronephrosis and mild left periureteral edema. There is a punctate stone within the lower pole the left kidney. No right renal calculi. Mild bilateral perinephric edema is noted. Normal caliber abdominal aorta. The distal left ureteral stone is immediately proximal to the left ureterovesical junction. Colonic diverticulosis. No evidence for acute diverticulitis. No bowel wall thickening or obstruction. Normal appendix. Evidence for prior small bowel anastomosis. IMPRESSION: 1. A 3 mm obstructing stone within the distal left ureter resulting in mild left hydronephrosis. 2. Left-sided nephrolithiasis. 3. Hepatomegaly with a nodular contour to the liver consistent with cirrhosis. 4. Trace pericholecystic edema. This is likely due to the patient's diffuse edematous state. There is no gallbladder wall thickening. 5. Colonic diverticulosis. No evidence for acute diverticulitis. 6. No bowel wall thickening or obstruction. 7. Small right pleural effusions and cardiomegaly. 8. Additional findings as described above. ACT 112: Negative or not required by law. Electronically signed by: Tyler Davis M.D. 01/21/2022 7:46 AM KUB X-Ray 01/21/22 13:03 XR KUB/Abdomen 1 view CLINICAL HISTORY: L sided distal kidney stone, constipation TECHNIQUE: 1 view of the abdomen was obtained. Comparison: Comparison is made to CT abdomen pelvis 01/20/2022 and abdominal radiograph 05/17/2021 FINDINGS: Multiple calcific densities are noted in the pelvis. Many likely represent phleboliths. Against this background, it is difficult to discern a calcification corresponding to the previously noted left UVJ stone. Degenerative changes are seen in the visualized skeleton. The bowel gas pattern is nonobstructive. A moderate amount of stool is noted within the large bowel. IMPRESSION: 1. Numerous calcific densities in the pelvis likely represent phleboliths. Again seen is background, the presence or absence of previously noted left UVJ stone is difficult to establish. No nephrolithiasis is seen. If clinical concern remains, renal stone protocol CT pelvis can be performed. 2. Moderate stool burden without evidence of impaction. ACT 112: Negative or not required by law. Electronically signed by: Jack Beltran M.D. 01/21/2022 3:40 PM Laboratory Results - last 24 hr 01/21/22 01/21/22 01/21/22 07:09 07:09 07:58 WBC 10.05 RBC 3.68 L Hgb 9.4 L Hct 30.5 L MCV 82.9 MCH 25.5 MCHC 30.8 L RDW Std Deviation 49.2 H RDW Coeff of Logan 16.2 H Plt Count 332 MPV 9.2 L Immature Gran % (Auto) 0.4 Neut % (Auto) 71.0 Lymph % (Auto) 19.2 [place] % (Auto) 7.2 Eos % (Auto) 1.7 Baso % (Auto) 0.5 Neut # (Auto) 7.14 H Lymph # (Auto) 1.93 [place] # (Auto) 0.72 Eos # (Auto) 0.17 Baso # (Auto) 0.05 Immature Gran # (Auto) 0.04 H Absolute Nucleated RBC 0.04 H Nucleated RBC % (auto) 0.4 Sodium 136 Potassium 4.3 Chloride 98 Carbon Dioxide 32 Anion Gap 6 BUN 20 Creatinine 1.35 H Est Cr Clr Drug Dosing 61.1 Est GFR ( Amer) 49.3 Est GFR (Non-Af Amer) 42.6 BUN/Creatinine Ratio 14.8 Glucose 86 POC Glucose 73 Calcium 9.0 Urine Color Urine Appearance Urine pH Ur Specific [place] Urine Protein Urine Glucose (UA) Urine Ketones Urine Blood Urine Nitrite Urine Bilirubin Urine Urobilinogen Ur Leukocyte Esterase Urine WBC (Auto) Urine RBC (Auto) U Hyaline Cast (Auto) U Epithel Cells (Auto) Urine Bacteria (Auto) 01/21/22 01/21/22 09:00 20:31 WBC RBC Hgb Hct MCV MCH MCHC RDW Std Deviation RDW Coeff of [place] Plt Count MPV Immature Gran % (Auto) Neut % (Auto) Lymph % (Auto) [place] % (Auto) Eos % (Auto) Baso % (Auto) Neut # (Auto) Lymph # (Auto) [place] # (Auto) Eos # (Auto) Baso # (Auto) Immature Gran # (Auto) Absolute Nucleated RBC Nucleated RBC % (auto) Sodium Potassium Chloride Carbon Dioxide Anion Gap BUN Creatinine Est Cr Clr Drug Dosing Est GFR ( Amer) Est GFR (Non-Af Amer) BUN/Creatinine Ratio Glucose POC Glucose 111 H Calcium Urine Color Yellow Urine Appearance Clear Urine pH 5.0 Ur Specific [place] 1.022 Urine Protein Negative Urine Glucose (UA) Negative Urine Ketones Negative Urine Blood Negative Urine Nitrite Negative Urine Bilirubin Negative Urine Urobilinogen Negative Ur Leukocyte Esterase Trace H Urine WBC (Auto) 1-5 Urine RBC (Auto) 0-4 U Hyaline Cast (Auto) 0 U Epithel Cells (Auto) 20-30 H Urine Bacteria (Auto) Negative PG Care Time/CCT Total # of Minutes Spent Total Time Spent with Patient: Total time spent is greater than 50% in coordination of care (as documented) at patient's floor/unit and/or counseling patient: Coding Level of Care Code 75538 Subseq Hosp Care Lvl 3 Diagnoses Kidney stone on left side N20.0 Ventricular fibrillation I49.01 Nonischemic cardiomyopathy I42.8 Elevated LFTs R79.89 Anxiety F41.9 COPD, severe J44.9 Atrial fibrillation, permanent I48.21 Bipolar disorder F31.9 Diabetes type 2, controlled E11.8 Diabetes mellitus complication status: with unspecified complications 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: without residential use GERD (gastroesophageal reflux disease) K21.9 Esophagitis presence: esophagitis presence not specified History of pulmonary embolism Z86.711 Chronic systolic CHF (congestive heart failure) I50.22 Constipation K59.00 (1) Diabetes type 2, controlled Diabetes mellitus complication status: with unspecified complications Diabetes mellitus residential insulin use: without residential use Qualified Code(s): E11.8 - Type 2 diabetes mellitus with unspecified complications (2) GERD (gastroesophageal reflux disease) Esophagitis presence: esophagitis presence not specified Qualified Code(s): K21.9 - Gastro-esophageal reflux disease without esophagitis
[2022-01-21] MEDS ORDERED: TAMSULOSIN HCL 0.4 MG CAP PO ONE (13:30)
--- NOTE | 2022-01-21 15:41 | XRay Report ---
XR KUB/Abdomen 1 view CLINICAL HISTORY: L sided distal kidney stone, constipation TECHNIQUE: 1 view of the abdomen was obtained. Comparison: Comparison is made to CT abdomen pelvis 01/20/2022 and abdominal radiograph 05/17/2021 FINDINGS: Multiple calcific densities are noted in the pelvis. Many likely represent phleboliths. Against this background, it is difficult to discern a calcification corresponding to the previously noted left UVJ stone. Degenerative changes are seen in the visualized skeleton. The bowel gas pattern is nonobstruc tive. A moderate amount of stool is noted within the large bowel. IMPRESSION: 1. Numerous calcific densities in the pelvis likely represent phleboliths. Again seen is background, the presence or absence of previously noted left UVJ stone is difficult to establish. No nephrolithi asis is seen. If clinical concern remains, renal stone protocol CT pelvis can be performed. 2. Moderate stool burden without evidence of impaction. ACT 112: Negative or not required by law. Electronically signed by: Jack Bletran M.D. 01/21/2022 3:40 PM
--- NOTE | 2022-01-21 16:46 | Cardiology Progress Note ---
Date of Service January 21, 2022 Assessment & Plan (1) Dizziness: (2) Atrial fibrillation: (3) Nonischemic cardiomyopathy: (4) ICD (implantable cardioverter-defibrillator) in place: (5) Pericardial effusion: (6) Mitral regurgitation: (7) Ventricular fibrillation: Plan 1. Dizziness: most recent episode related to cardiac arrhythmia. No additional episodes. 2. Cardiomyopathy: She has been struggling with relative hypotension. This has precluded the reinstitution of her entresto. her blood pressure seems to be better lately we may have an opportunity to start some low-dose sandra or entresto. previously tried on Jardiance with adverse effect. continue metoprolol and digoxin. 3. Atrial fibrillation: She appears have undergone a successful AV node ablation which was resulted in better rate control. I think she can continue on her current dose of metoprolol and digoxin. This is primarily for her cardiomyopathy and symptoms. Continue Xarelto. 4. Mitral regurgitation: Previously severe. Perhaps with biventricular pacing better rate control we will see some improvement in what is likely some functional mitral regurgitation. Mitral clip may be an option. In the past she has not been interested in aggressive intervention. 5. Biventricular ICD: Elevated right ventricular pacing threshold. Unfortunately, this is a chronic lead. Coronary sinus lead appears to be functioning normally. Lower pacing rate increased 85 beats per minute. 6. Ventricular fibrillation: no recurrence. Likely related to her prior device programming. 7. Shortness of breath: Improved. An extra dose of diuretic last night may have made a difference. I think she can continue on her current therapy. Hopefully should be more ambulatory over the next few days and we could make plans for discharge peer Admission and Anticipated Discharge Date Admission Date: January 20, 2022 Subjective This afternoon the patient did not report much in the way of abdominal discomfort. She states that her breathing is better. She has not had recurrent dizziness. She has not report ambulating much today. She is anxious for disch arge but discouraged viral overall health conditions. She did report feeling somewhat "confused" at times. Review of Systems Review of Systems: Per HPI Physical Exam Physical Exam: She is alert and oriented x3. Mood affect appear normal. She answered all questions appropriately. HEENT: Sclerae are anicteric. Pupils are equal and reactive to light and accommodation. Extraocular movements were intact. Neuro: Cranial nerves intact Lungs: normal respiratory effort. No wheezing. Cardiac: The rhythm was regular. Abdomen: Obese Extremities: Patient has bilateral radial pulses that are equal in intensity. There is no evidence cyanosis or clubbing. There was no evidence of significant peripheral edema bilaterally. Scar on the left anterior tibial area Skin: There are no rashes noted on examination today. Results & Data ([facility]) Vital Signs (Past 12 Hours) Vital Signs Temp Pulse Pulse Resp BP BP Pulse Ox 01/21/22 16:02 37.0 C 83 20 135/81 98 01/21/22 15:01 91 H 01/21/22 11:46 36.8 C 84 18 113/88 98 01/21/22 09:37 01/21/22 08:10 36.4 C L 84 20 92/61 L 99 01/21/22 07:18 84 O2 Del Method O2 Flow Rate 01/21/22 16:02 Nasal Cannula 3 01/21/22 15:01 01/21/22 11:46 3 01/21/22 09:37 Nasal Cannula 3 01/21/22 08:10 Nasal Cannula 3 01/21/22 07:18 Laboratory Results Abnormal Lab Results 01/20/22 01/20/22 01/21/22 16:42 20:36 07:09 WBC 10.05 RBC 3.68 L Hgb 9.4 L Hct 30.5 L MCV 82.9 MCH 25.5 MCHC 30.8 L RDW Std Deviation 49.2 H RDW Coeff of Logan 16.2 H Plt Count 332 MPV 9.2 L Immature Gran % (Auto) 0.4 Neut % (Auto) 71.0 Lymph % (Auto) 19.2 [place] % (Auto) 7.2 Eos % (Auto) 1.7 Baso % (Auto) 0.5 Neut # (Auto) 7.14 H Lymph # (Auto) 1.93 [place] # (Auto) 0.72 Eos # (Auto) 0.17 Baso # (Auto) 0.05 Immature Gran # (Auto) 0.04 H Absolute Nucleated RBC 0.04 H Nucleated RBC % (auto) 0.4 Sodium Potassium Chloride Carbon Dioxide Anion Gap BUN Creatinine Est Cr Clr Drug Dosing Est GFR ( Amer) Est GFR (Non-Af Amer) BUN/Creatinine Ratio Glucose POC Glucose 120 H 117 H Calcium Urine Color Urine Appearance Urine pH Ur Specific [place] Urine Protein Urine Glucose (UA) Urine Ketones Urine Blood Urine Nitrite Urine Bilirubin Urine Urobilinogen Ur Leukocyte Esterase Urine WBC (Auto) Urine RBC (Auto) U Hyaline Cast (Auto) U Epithel Cells (Auto) Urine Bacteria (Auto) 01/21/22 01/21/22 01/21/22 07:09 07:58 09:00 WBC RBC Hgb Hct MCV MCH MCHC RDW Std Deviation RDW Coeff of Logan Plt Count MPV Immature Gran % (Auto) Neut % (Auto) Lymph % (Auto) [place] % (Auto) Eos % (Auto) Baso % (Auto) Neut # (Auto) Lymph # (Auto) [place] # (Auto) Eos # (Auto) Baso # (Auto) Immature Gran # (Auto) Absolute Nucleated RBC Nucleated RBC % (auto) Sodium 136 Potassium 4.3 Chloride 98 Carbon Dioxide 32 Anion Gap 6 BUN 20 Creatinine 1.35 H Est Cr Clr Drug Dosing 61.1 Est GFR ( Amer) 49.3 Est GFR (Non-Af Amer) 42.6 BUN/Creatinine Ratio 14.8 Glucose 86 POC Glucose 73 Calcium 9.0 Urine Color Yellow Urine Appearance Clear Urine pH 5.0 Ur Specific [place] 1.022 Urine Protein Negative Urine Glucose (UA) Negative Urine Ketones Negative Urine Blood Negative Urine Nitrite Negative Urine Bilirubin Negative Urine Urobilinogen Negative Ur Leukocyte Esterase Trace H Urine WBC (Auto) 1-5 Urine RBC (Auto) 0-4 U Hyaline Cast (Auto) 0 U Epithel Cells (Auto) 20-30 H Urine Bacteria (Auto) Negative PG Care Time/CCT Total # of Minutes Spent Total Time Spent with Patient: Total time spent is greater than 50% in coordination of care (as documented) at patient's floor/unit and/or counseling patient: Coding Level of Care Code 43495 Subseq Hosp Care Lvl 2 Diagnoses Dizziness R42 Atrial fibrillation I48.20 Atrial fibrillation type: unspecified chronic Nonischemic cardiomyopathy I42.8 ICD (implantable cardioverter-defibrillator) in place Z95.810 Pericardial effusion I31.3 Mitral regurgitation I34.0 Ventricular fibrillation I49.01 (1) Atrial fibrillation Atrial fibrillation type: unspecified chronic Qualified Code(s): I48.20 - Chronic atrial fibrillation, unspecified
[2022-01-21] MEDS: RIVAROXABAN 20 MG TAB PO SCH (17:03)
[2022-01-21] MEDS: DIGOXIN 0.125 MG TAB PO SCH (17:03)
[2022-01-21] MEDS: MoRPHine SULFATE 2 MG/ML CARP IV PRN (19:22)
[2022-01-21] MEDS ORDERED: bisacodyL 5 MG TABEC PO ONE (19:30)
[2022-01-21] MEDS: traZODone HCL 100 MG TAB PO SCH (20:07)
[2022-01-21] MEDS: QUEtiapine FUMARATE 200 MG TAB PO SCH (20:08)
[2022-01-21] MEDS: POLYETHYLENE (MIRALAX) 17 GM PACK PO SCH (20:12)
[2022-01-22] MEDS ORDERED: TAMSULOSIN HCL 0.4 MG CAP PO ONE (08:31)
[2022-01-22] MEDS: INSULIN ASPART PER UNIT SC SCH ×4 (08:43→21:40)
[2022-01-22] MEDS: DOCUSATE SODIUM 100 MG CAP PO SCH ×2 (08:43→21:39)
[2022-01-22] MEDS: busPIRone 5 MG TAB PO SCH ×3 (08:43→21:39)
[2022-01-22] MEDS: METOPROLOL SUCC 50MG EXT REL TAB PO SCH (08:43)
[2022-01-22] MEDS: ATORVASTATIN 10 MG TAB PO SCH (08:44)
[2022-01-22] MEDS: MAGNESIUM OXIDE 400 MG TAB PO SCH (08:44)
[2022-01-22] MEDS: POTASSIUM CHLORIDE CRTAB 20 MEQ TABCR PO SCH (08:44)
[2022-01-22] MEDS: PANTOprazole 40 MG TAB PO SCH (08:44)
[2022-01-22] MEDS: QUEtiapine FUMARATE 100 MG TABLET PO SCH (08:44)
[2022-01-22] MEDS: FUROSEMIDE 80 MG TAB PO SCH (08:44)
[2022-01-22] MEDS: PREGABALIN 150 MG CAP PO SCH ×2 (08:48→21:38)
[2022-01-22] MEDS: UMECLIDINIUM/VILANTEROL 62.5/25MCG 7 PUFFS/INHALER INH SCH (08:48)
[2022-01-22] MEDS: POLYETHYLENE (MIRALAX) 17 GM PACK PO SCH ×2 (08:49→21:38)
[2022-01-22 08:58] LABS: Albumin Globulin Ratio 0.9 (0.9-2); Albumin Level 3.6 gm/dl (3.4-5.0); BUN Creatinine Ratio 13.8 (10-20); Bilirubin,Total 0.8 mg/dl (0.2-1.0); Calcium 9.3 mg/dl (8.5-10.1); Creatinine Clr Calc Pharmacy 59.4 ml/min; Est GFR (Non-African American) 41.5 ml/min; Globulin 3.9 gm/dl (2.5-4.0); Potassium 4.2 mmol/L (3.5-5.1); Total Protein 7.5 gm/dl (6.0-8.3)
--- NOTE | 2022-01-22 09:46 | Cardiology Progress Note ---
Date of Service January 22, 2022 Assessment & Plan (1) Dizziness: (2) Atrial fibrillation: (3) Nonischemic cardiomyopathy: (4) ICD (implantable cardioverter-defibrillator) in place: (5) Pericardial effusion: (6) Mitral regurgitation: (7) Ventricular fibrillation: Plan 1. Dizziness: most recent episode related to cardiac arrhythmia. No additional episodes. 2. Cardiomyopathy: stable. Relatively low blood pressure has precluded more aggressive medical intervention recently. This point I think is reasonable to continue her on her metoprolol and digoxin. 3. Atrial fibrillation: Good rate control status post AV node ablation. Continue metoprolol, digoxin and Xarelto.. 4. Mitral regurgitation: Previously severe. Intervention could be entertained in the outpatient setting. 5. Biventricular ICD: Elevated right ventricular pacing threshold. Unfort unately, this is a chronic lead. Coronary sinus lead appears to be functioning normally. Lower pacing rate now set at 85 beats per minute. My intention would be to reduce this to 70 beats per minute in about 1 month. 6. Ventricular fibrillation: no recurrence. Likely related to her prior device programming. 7. Shortness of breath: Improved. I think she is at her baseline with r espect to overall volume status. No continue her current dose of diuretic. He is known to have an element of intrinsic lung disease as well. 8. Pericardial effusion: Noted on prior echocardiogram. Most recent CT scan demonstrated a small effusion. I do not think this is clinically relevant at this time. She continues to be deconditioned. She would likely have another assessment for possible rehab versus returned to home with outpatient PT and OT. I think she is stable from a cardiac standpoint. I will be away from the hospital for the next 2 days, any questions regarding her cardiac status can be referred to Dr. Starks the on-call director of financial reporting. Admission and Anticipated Discharge Date Admission Date: January 20, 2022 Subjective this morning the patient's main complaint was left hip discomfort. This involved a fairly focal area that was somewhat tender to palpation. She was able to transfer from the bed to the bedside commode over the course of yesterday. She states that this makes her tired but she did not report any dizziness or lightheadedness. Breathing appears to be at baseline. She has done little ambulation. Her dizziness is improved. Her cognitive function also appears to be improved but not back to baseline by her report. Review of Systems Review of Systems: Per HPI Physical Exam Physical Exam: She is alert and oriented x3. Mood affect appear normal. She answered all questions appropriately. HEENT: Sclerae are anicteric. Pupils are equal and reactive to light and accommodation. Extraocular movements were intact. Neuro: Cranial nerves intact Lungs: normal respiratory effort. No wheezing. Cardiac: The rhythm was regular. Abdomen: Obese Extremities: Patient has bilateral radial pulses that are equal in intensity. There is no evidence cyanosis or clubbing. There was no evidence of significant peripheral edema bilaterally. Scar on the left anterior tibial area. Palpation of the left hip revealed a fairly discrete spot of tenderness but no ecchymosis or evidence of swelling. Skin: There are no rashes noted on examination today. Results & Data ([facility]) Vital Signs (Past 12 Hours) Vital Signs Temp Pulse Pulse Resp BP BP Pulse Ox 01/22/22 08:42 36.6 C 96 H 18 106/72 96 01/22/22 04:00 36.5 C 85 18 106/67 97 01/22/22 00:00 36.8 C 84 18 119/78 94 01/21/22 22:17 86 O2 Del Method O2 Flow Rate 01/22/22 08:42 Nasal Cannula 3 01/22/22 04:00 Nasal Cannula 3 01/22/22 00:00 Nasal Cannula 3 01/21/22 22:17 Laboratory Results Abnormal Lab Results 01/21/22 01/22/22 20:31 08:18 Sodium 136 Potassium 4.2 Chloride 96 L Carbon Dioxide 32 Anion Gap 8 BUN 19 Creatinine 1.38 H Est Cr Clr Drug Dosing 59.4 Est GFR ( Amer) 48.0 Est GFR (Non-Af Amer) 41.5 BUN/Creatinine Ratio 13.8 Glucose 114 H POC Glucose 111 H Calcium 9.3 Total Bilirubin 0.8 AST 21 ALT 34 Alkaline Phosphatase 159 H Total Protein 7.5 Albumin 3.6 Globulin 3.9 Albumin/Globulin Ratio 0.9 PG Care Time/CCT Total # of Minutes Spent Total Time Spent with Patient: Total time spent is greater than 50% in coordination of care (as documented) at patient's floor/unit and/or counseling patient: Coding Level of Care Code 57304 Subseq Hosp Care Lvl 2 Diagnoses Dizziness R42 Atrial fibrillation I48.20 Atrial fibrillation type: unspecified chronic Nonischemic cardiomyopathy I42.8 ICD (implantable cardioverter-defibrillator) in place Z95.810 Pericardial effusion I31.3 Mitral regurgitation I34.0 Ventricular fibrillation I49.01 (1) Atrial fibrillation Atrial fibrillation type: unspecified chronic Qualified Code(s): I48.20 - Chronic atrial fibrillation, unspecified
[2022-01-22] MEDS: ACETAMINOPHEN 325 MG TAB PO PRN (10:20)
[2022-01-22] MEDS: MoRPHine SULFATE 2 MG/ML CARP IV PRN (10:20)
[2022-01-22] MEDS ORDERED: SOD PHOSPHATE/SOD BIPHOSPHATE ENEMA 132 ML BTL PR STA (17:06)
[2022-01-22] MEDS: DIGOXIN 0.125 MG TAB PO SCH (17:27)
[2022-01-22] MEDS: RIVAROXABAN 20 MG TAB PO SCH (17:27)
--- NOTE | 2022-01-22 21:23 | Hospitalist Progress Note ---
Date of Service January 22, 2022 Assessment & Plan (1) Kidney stone on left side: Plan: 2mm distal stone at the UVJ. High chance of spontaneous passage. She continues with LLQ pain but it is much better than 2-3 days ago. Cont Flomax 0.4mg daily; tolerating such; has not made dizziness any worse. Usually would hydrate with IV fluids but unable to do so because of severe CHF. Pain meds prn. Strain all urine. Still no stone seen. Unable to visualize the stone on KUB x- ray yesterday. (2) Ventricular fibrillation: Plan: Initially presented with what she thought was ICD firing at home when her arms were shaking while trying to lower herself to the toilet. Pacer interrogation after admission was without any evidence of ICD firing. Night of 01/17/22 - episode of syncope. Tele with ~ 40 seconds of ventricular fibrillation versus polymorphic VT per cardiology. She had 3 ICD shocks fired. No chest compressions. She did arouse after that. Following the events of 01/17 cardiology felt that the event was related to relative bradycardia. She had some ectopy and occasional pacing which likely triggered the event. Her pacemaker had been set to a rate of 50 s/p AV jennifer ablation during her previous admission. Cardiology increased pacer rate to 85 to prevent this from happening again. No VT/VF overnight. Continue telemetry. (3) Nonischemic cardiomyopathy: Plan: Chronic systolic heart failure. Order placed for STANDING SCALE weights daily. Weight was 265 standing today; dry weight is ~260. Continue Metoprolol, dig, lasix. Entresto has been on hold due to hypotension issues recently. (4) Elevated LFTs: Plan: Present on admission -- but nearly back to normal Suspect hepatic congestion from decompensated CHF Continue diuresis with Lasix (5) Anxiety: Plan: Continue home medications including recently started buspar TID (6) COPD, severe: Plan: without exacerbation at this time (7) Atrial fibrillation, permanent: Plan: s/p AV jennifer ablation 01/12/22. Pacer rate adjusted to 85 this admission (had been 50). Continue Digoxin Continue Toprol ECHO repeat 01/15 as per Cardiology to recheck LV function now that rates controlled shows slight improvement at EF 30-35% (up from 25-30%) and mild pericardial effusion (previous was moderate) Continue Xarelto (8) Bipolar disorder: Plan: Continue Seroquel, Trazodone Continue Buspar (9) Diabetes type 2, controlled: Plan: Diabetes type 2, controlled: a1c <6.5% novolog SSI (10) GERD (gastroesophageal reflux disease): Plan: cont PPI (11) History of pulmonary embolism: Plan: Continue Xarelto (12) Chronic systolic CHF (congestive heart failure): Plan: see above (13) Constipation: Plan: ongoing issue despite copious agents by mouth (colace, senna, miralax, dulcolax) will give enema - fleets x 1 today if no improvement then either go-lytely prep or lactulose or similar if LLQ pain resolves with having bowel movements then the LLQ pain is unlikely to be kidney stone-related Plan seen by PT/OT - likely has progressed enough to return home with family support & home health no discharge due to #1 and #13 hopefully she will pass the stone soon Admission and Anticipated Discharge Date Admission Date: January 20, 2022 Subjective tele overnight wnl pt continues with LLQ abd pain - no worse than previous, maybe modestly better still no adequate BM; minimal stool also c/o sacral low back pain eating poor-fair no dyspnea no cp frustrated about the constipation & requests enema Review of Systems Review of Systems: gen - no fevers gu - no dysuria, no hematuria cv - no cp, chronic orthopnea unchanged pulm - no cough GI - no nausea/emesis Physical Exam Physical Exam: gen - looks similar to yesterday; NAD neck - difficult to asses JVD due to neck size mouth - MMM heart - RRR, s1 s2, 1/6 systolic murmur LSB lungs - decreased BS bases, CTA b/l otherwise abd - minimal tenderness to palpation LLQ; soft; no peritoneal signs; no HSM; BS+; no flank tenderness to palpation b/l ext - no edema, pulses 2+ b/l psych - a/o x 3 Results & Data Results & Data ([facility]) Vital Signs (Past 12 Hours) Vital Signs Temp Pulse Pulse Resp BP BP Pulse Ox 01/22/22 19:29 36.6 C 82 17 135/65 98 01/22/22 17:27 84 01/22/22 17:09 85 01/22/22 15:50 36.6 C 86 18 114/84 93 01/22/22 11:27 36.8 C 96 H 18 132/77 96 O2 Del Method O2 Flow Rate 01/22/22 19:29 Nasal Cannula 2.5 01/22/22 17:27 01/22/22 17:09 01/22/22 15:50 Nasal Cannula 3 01/22/22 11:27 Nasal Cannula 3 Laboratory Results Laboratory Results - last 24 hr 01/22/22 01/22/22 01/22/22 08:18 16:45 20:34 Sodium 136 Potassium 4.2 Chloride 96 L Carbon Dioxide 32 Anion Gap 8 BUN 19 Creatinine 1.38 H Est Cr Clr Drug Dosing 59.4 Est GFR ( Amer) 48.0 Est GFR (Non-Af Amer) 41.5 BUN/Creatinine Ratio 13.8 Glucose 114 H POC Glucose 122 H 125 H Calcium 9.3 Total Bilirubin 0.8 AST 21 ALT 34 Alkaline Phosphatase 159 H Total Protein 7.5 Albumin 3.6 Globulin 3.9 Albumin/Globulin Ratio 0.9 PG Care Time/CCT Total # of Minutes Spent Total Time Spent with Patient: Total time spent is greater than 50% in coordination of care (as documented) at patient's floor/unit and/or counseling patient: Coding Level of Care Code 41268 Subseq Hosp Care Lvl 2 Diagnoses Kidney stone on left side N20.0 Ventricular fibrillation I49.01 Nonischemic cardiomyopathy I42.8 Elevated LFTs R79.89 Anxiety F41.9 COPD, severe J44.9 Atrial fibrillation, permanent I48.21 Bipolar disorder F31.9 Diabetes type 2, controlled E11.8 Diabetes mellitus complication status: with unspecified complications Diabetes mellitus terminal supervisor insulin use: without terminal supervisor use GERD (gastroesophageal reflux disease) K21.9 Esophagitis presence: esophagitis presence not specified History of pulmonary embolism Z86.711 Chronic systolic CHF (congestive heart failure) I50.22 Constipation K59.00 (1) Diabetes type 2, controlled Diabetes mellitus complication status: with unspecified complications Diabetes mellitus terminal supervisor insulin use: without mcfp use Qualified Code(s): E11.8 - Type 2 diabetes mellitus with unspecified complications (2) GERD (gastroesophageal reflux disease) Esophagitis presence: esophagitis presence not specified Qualified Code(s): K21.9 - Gastro-esophageal reflux disease without esophagitis
[2022-01-22] MEDS: traZODone HCL 100 MG TAB PO SCH (21:38)
[2022-01-22] MEDS: QUEtiapine FUMARATE 200 MG TAB PO SCH (21:39)
[2022-01-23] MEDS: MoRPHine SULFATE 2 MG/ML CARP IV PRN (02:38)
[2022-01-23] MEDS ORDERED: HYDROCODONE/ACETAMOPHEN 5/325MG TAB PO PRN (06:08)
[2022-01-23 07:19] LABS: BUN Creatinine Ratio 12.3 (10-20); Calcium 9.3 mg/dl (8.5-10.1); Creatinine Clr Calc Pharmacy 55.9 ml/min; Est GFR (African American) 44.9 ml/min; Est GFR (Non-African American) 38.7 ml/min; Potassium 4.9 mmol/L (3.5-5.1)
[2022-01-23] MEDS: INSULIN ASPART PER UNIT SC SCH ×4 (08:26→20:12)
[2022-01-23] MEDS: PREGABALIN 150 MG CAP PO SCH ×2 (08:32→20:08)
[2022-01-23] MEDS: ACETAMINOPHEN 325 MG TAB PO PRN ×2 (08:32→20:30)
[2022-01-23] MEDS: PANTOprazole 40 MG TAB PO SCH (08:33)
[2022-01-23] MEDS: DOCUSATE SODIUM 100 MG CAP PO SCH ×2 (08:33→20:10)
[2022-01-23] MEDS: busPIRone 5 MG TAB PO SCH ×3 (08:33→20:12)
[2022-01-23] MEDS: MAGNESIUM OXIDE 400 MG TAB PO SCH (08:33)
[2022-01-23] MEDS: FUROSEMIDE 80 MG TAB PO SCH (08:33)
[2022-01-23] MEDS: ATORVASTATIN 10 MG TAB PO SCH (08:33)
[2022-01-23] MEDS: QUEtiapine FUMARATE 100 MG TABLET PO SCH (08:33)
[2022-01-23] MEDS: POLYETHYLENE (MIRALAX) 17 GM PACK PO SCH ×2 (08:33→20:08)
[2022-01-23] MEDS: POTASSIUM CHLORIDE CRTAB 20 MEQ TABCR PO SCH (08:33)
[2022-01-23] MEDS: UMECLIDINIUM/VILANTEROL 62.5/25MCG 7 PUFFS/INHALER INH SCH (08:34)
[2022-01-23] MEDS: METOPROLOL SUCC 50MG EXT REL TAB PO SCH (08:34)
--- NOTE | 2022-01-23 10:28 | XRay Report ---
KUB CLINICAL HISTORY: Constipation. Left ureteral stone. FINDINGS: 2 AP supine abdominal radiographs are compared to study dated 01/21/2022 and correlated with abdominal CT dated 01/20/2022. There is a nonobstructed abdominal bowel gas pattern. Moderate fecal r etention is seen throughout the colon. There is residual enteric contrast in the colon which outlines diverticulosis. No evidence of intraperitoneal free air is seen on these supine images. The appendix silhouette is enlarged. Colorectal contrast obscures evaluation of the pelvis. The patient's distal left ureteral stone seen by CT is not clearly identified by x-ray. There are numerous phleboliths in the pelvis. The skeletal structures are osteopenic and appear intact. The heart is enlarged and pacem delmy leads are noted. IMPRESSION: 1. Nonobstructed abdominal bowel gas pattern noting moderate colonic fecal retention. 2. The small distal left ureteral stone seen by CT is not visualized by x-ray. Electronically signed by: Sunny Williamson M.D. 01/23/2022 10:26 AM
[2022-01-23] MEDS ORDERED: LACTULOSE SYRUP 30 GM/45 ML UDP PO STA (11:20)
[2022-01-23] MEDS ORDERED: TAMSULOSIN HCL 0.4 MG CAP PO ONE (11:21)
[2022-01-23] MEDS: DIGOXIN 0.125 MG TAB PO SCH (17:45)
[2022-01-23] MEDS: RIVAROXABAN 20 MG TAB PO SCH (17:46)
--- NOTE | 2022-01-23 19:46 | Hospitalist Progress Note ---
Date of Service January 23, 2022 Assessment & Plan (1) Kidney stone on left side: Plan: 3mm distal stone at the UVJ. High chance of spontaneous passage. She continues with LLQ pain - I am uncertain if it is pain related to severe constipation or the stone. Cont Flomax 0.4mg daily; tolerating such; has not made dizziness any worse. Usually would hydrate with IV fluids but unable to do so because of severe CHF. Pain meds prn. Strain all urine. Still no stone seen. Unable to visualize the stone on KUB x- ray yesterday or today - uncertain if simply too small to see OR it is already passed. Creatinine has risen - ?stone causing such?? (2) Constipation: Plan: KUB x-ray this am still w/ copious stools despite numerous agents by mouth (colace, senna, miralax, dulcolax) and enema x 1 last night will give lactulose x 1 today if LLQ pain resolves with having bowel movements then the LLQ pain is unlikely to be kidney stone-related (3) Ventricular fibrillation: Plan: Initially presented with what she thought was ICD firing at home when her arms were shaking while trying to lower herself to the toilet. Pacer interrogation after admission was without any evidence of ICD firing. Night of 01/17/22 - episode of syncope. Tele with ~ 40 seconds of ventricular fibrillation versus polymorphic VT per cardiology. She had 3 ICD shocks fired. No chest compressions. She did arouse after that. Following the events of 01/17 cardiology felt that the event was related to relative bradycardia. She had some ectopy and occasional pacing which likely triggered the event. Her pacemaker had been set to a rate of 50 s/p AV jennifer ablation during her previous admission. Cardiology increased pacer rate to 85 to prevent this from happening again. No VT/VF overnight. Continue telemetry. (4) Nonischemic cardiomyopathy: Plan: Chronic systolic heart failure. Appears compensated. Continue Metoprolol, dig, lasix. Entresto has been on hold due to hypotension issues recently. (5) Elevated LFTs: Plan: Present on admission -- but nearly back to normal Suspect hepatic congestion from decompensated CHF Continue daily lasix (6) Anxiety: Plan: Continue home medications including recently started buspar TID (7) COPD, severe: Plan: without exacerbation at this time (8) Atrial fibrillation, permanent: Plan: s/p AV jennifer ablation 01/12/22. Pacer rate adjusted to 85 this admission (had been 50). Continue Digoxin Continue Toprol ECHO repeat 01/15 as per Cardiology to recheck LV function now that rates controlled shows slight improvement at EF 30-35% (up from 25-30%) and mild pe ricardial effusion (previous was moderate) Continue Xarelto (9) Bipolar disorder: Plan: Continue Seroquel, Trazodone Continue Buspar (10) Diabetes type 2, controlled: Plan: Diabetes type 2, controlled: a1c <6.5% novolog SSI (11) GERD (gastroesophageal reflux disease): Plan: cont PPI (12) History of pulmonary embolism: Plan: Continue Xarelto (13) Chronic systolic CHF (congestive heart failure): Plan: see above Plan seen by PT/OT - likely has progressed enough to return home with family support & home health no discharge due to #1 and #2 spoke with pt's sister this evening - updated given Admission and Anticipated Discharge Date Admission Date: January 20, 2022 Subjective no stone seen with lucy she continues w/ LLQ abd pain - same location as previous days and same location when the stone was found on CT a/p did have BM this am AND BM x 2 last pm with enema no dysuria breathing is a bit off today - worse than yesterday eating is better - ate all of breakfast - this did NOT make her LLQ abd pain worse tele overnight - paced Review of Systems Review of Systems: gen - no fever cv - no cp; baseline orthopnea pulm - no cough GI - no upper abd pain or flank pain; LLQ pain only Physical Exam Physical Exam: gen - NAD, looks good today neck - difficult to asses JVD due to neck size mouth - MMM heart - RRR, s1 s2, 1/6 systolic murmur LSB lungs - decreased BS bases, CTA b/l otherwise abd - minimal/mild tenderness to palpation LLQ; soft; no peritoneal signs; no HSM; BS+; no flank tenderness ext - trace edema, pulses 2+ b/l psych - a/o x 3 Results & Data Results & Data ([facility]) Vital Signs (Past 12 Hours) Vital Signs Temp Pulse Pulse Resp BP BP Pulse Ox 01/23/22 19:29 36.4 C L 84 18 94/77 L 98 01/23/22 17:45 87 01/23/22 12:00 36.4 C L 84 20 105/65 97 01/23/22 10:54 85 01/23/22 08:41 O2 Del Method O2 Flow Rate 01/23/22 19:29 Nasal Cannula 2 01/23/22 17:45 01/23/22 12:00 Nasal Cannula 2 01/23/22 10:54 01/23/22 08:41 Nasal Cannula 3 Laboratory Results Laboratory Results - last 24 hr 01/22/22 01/23/22 20:34 06:27 Sodium 136 Potassium 4.9 Chloride 98 Carbon Dioxide 33 H Anion Gap 5 BUN 18 Creatinine 1.46 H Est Cr Clr Drug Dosing 55.9 Est GFR ( Amer) 44.9 Est GFR (Non-Af Amer) 38.7 BUN/Creatinine Ratio 12.3 Glucose 94 POC Glucose 125 H Calcium 9.3 Diagnostic Findings urine cx negative PG Care Time/CCT Total # of Minutes Spent Total Time Spent with Patient: Total time spent is greater than 50% in coordination of care (as documented) at patient's floor/unit and/or counseling patient: Coding Level of Care Code 72876 Subseq Hosp Care Lvl 2 Diagnoses Kidney stone on left side N20.0 Constipation K59.00 Ventricular fibrillation I49.01 Nonischemic cardiomyopathy I42.8 Elevated LFTs R79.89 Anxiety F41.9 COPD, severe J44.9 Atrial fibrillation, permanent I48.21 Bipolar disorder F31.9 Diabetes type 2, controlled E11.8 Diabetes mellitus complication status: with unspecified complications Diabetes mellitus exterminator helper insulin use: without mcc use GERD (gastroesophageal reflux disease) K21.9 Esophagitis presence: esophagitis presence not specified History of pulmonary embolism Z86.711 Chronic systolic CHF (congestive heart failure) I50.22 (1) Diabetes type 2, controlled Diabetes mellitus complication status: with unspecified complications Diabetes mellitus exterminator helper insulin use: without mcc use Qualified Code(s): E11.8 - Type 2 diabetes mellitus with unspecified complications (2) GERD (gastroesophageal reflux disease) Esophagitis presence: esophagitis presence not specified Qualified Code(s): K21.9 - Gastro-esophageal reflux disease without esophagitis
[2022-01-23] MEDS: QUEtiapine FUMARATE 200 MG TAB PO SCH (20:09)
[2022-01-23] MEDS: traZODone HCL 100 MG TAB PO SCH (20:09)
[2022-01-24] MEDS: INSULIN ASPART PER UNIT SC SCH ×4 (07:07→20:29)
[2022-01-24] MEDS: ATORVASTATIN 10 MG TAB PO SCH (08:07)
[2022-01-24] MEDS: POTASSIUM CHLORIDE CRTAB 20 MEQ TABCR PO SCH (08:07)
[2022-01-24] MEDS: MAGNESIUM OXIDE 400 MG TAB PO SCH (08:07)
[2022-01-24] MEDS: PREGABALIN 150 MG CAP PO SCH ×2 (08:08→20:28)
[2022-01-24] MEDS: METOPROLOL SUCC 50MG EXT REL TAB PO SCH (08:08)
[2022-01-24] MEDS: busPIRone 5 MG TAB PO SCH ×3 (08:08→20:29)
[2022-01-24] MEDS: FUROSEMIDE 80 MG TAB PO SCH (08:08)
[2022-01-24] MEDS: DOCUSATE SODIUM 100 MG CAP PO SCH ×2 (08:08→20:28)
[2022-01-24] MEDS: QUEtiapine FUMARATE 100 MG TABLET PO SCH (08:08)
[2022-01-24] MEDS: UMECLIDINIUM/VILANTEROL 62.5/25MCG 7 PUFFS/INHALER INH SCH (08:09)
[2022-01-24] MEDS: POLYETHYLENE (MIRALAX) 17 GM PACK PO SCH ×2 (08:09→20:30)
[2022-01-24] MEDS: PANTOprazole 40 MG TAB PO SCH (08:09)
[2022-01-24 08:43] LABS: Hemoglobin 9.9 g/dl (12.0-16.0); Mean Corpuscular Hemoglobin 25.4 pg (25.0-34.0); Mean Corpuscular Hgb Conc 30.9 g/dL (32.0-36.0); Mean Corpuscular Volume 82.1 fL (80.0-100.0); Mean Platelet Volume 10.4 fL (9.4-12.3); Nucleated RBC # (auto) 0.05 K/uL (0-0); Nucleated RBC % (auto) 0.6 %; Platelet Count 332 K/uL (130-400); RDW Coefficient of Variation 16.9 % (11.5-14.5); RDW Standard Deviation 50.4 fL (36.4-46.3); White Blood Count 8.61 K/ul (4.8-10.8)
[2022-01-24] MEDS ORDERED: TAMSULOSIN HCL 0.4 MG CAP PO ONE (08:46)
[2022-01-24 09:06] LABS: BUN Creatinine Ratio 14.2 (10-20); Calcium 9.5 mg/dl (8.5-10.1); Creatinine Clr Calc Pharmacy 55.1 ml/min; Est GFR (African American) 44.1 ml/min; Est GFR (Non-African American) 38.1 ml/min; Magnesium 2.4 mg/dl (1.7-2.4); Potassium 5.3 mmol/L (3.5-5.1)
[2022-01-24] MEDS ORDERED: PATIROMER CALCIUM SORBITEX 8.4 GM PACK PO ONE (11:06)
[2022-01-24] MEDS ORDERED: hydrOXYzine HCl 25 MG TAB PO STA (11:59)
--- NOTE | 2022-01-24 15:01 | XRay Report ---
KUB HISTORY: L 3mm distal kidney stone, constipation COMPARISON: KUB 01/23/2022. FINDINGS: The bowel gas pattern is unremarkable. There are no dilated loops of small bowel to suggest an obstruction. The heart is enlarged. Left-sided pacemaker is noted. The patient's distal left ure teral stone is not visualized by x-ray. No pneumoperitoneum or pneumatosis. IMPRESSION: The patient's distal left ureteral stone is not identified by conventional radiographic technique. ACT 112: Negative or not required by law. Electronically signed by: Tyler Davis M.D. 01/24/2022 3:00 PM
[2022-01-24] MEDS: DIGOXIN 0.125 MG TAB PO SCH (16:03)
[2022-01-24] MEDS: RIVAROXABAN 20 MG TAB PO SCH (16:04)
[2022-01-24] MEDS: traZODone HCL 100 MG TAB PO SCH (20:28)
[2022-01-24] MEDS: QUEtiapine FUMARATE 200 MG TAB PO SCH (20:28)
--- NOTE | 2022-01-24 20:40 | Hospitalist Progress Note ---
Date of Service January 24, 2022 Assessment & Plan (1) Kidney stone on left side: Plan: 3mm distal stone at the UVJ. High chance of spontaneous passage. She has minimal pain over the LLQ of the abdomen today - either she has passed the stone, or we simply have achieved good pain control. Cont Flomax 0.4mg daily; tolerating such; has not made dizziness any worse. Usually would hydrate with IV fluids but unable to do so because of severe CHF. Pain meds prn. Strain all urine. Unable to visualize the stone on KUB x-ray yesterday or today - uncertain if simply too small to see OR it is already passed. Creatinine has risen some over the last few days but I suspect it is from volume contraction and not the stone - her urine is quite concentrated. recheck creatinine in am - if it does cont to rise consider renal u/s to look at L urinary tract. (2) Constipation: Plan: resolved cont miralax BID for maintenance cont colace BID consider senna daily as well KUB x-ray shows constipation is resolved (3) Ventricular fibrillation: Plan: Initially presented with what she thought was ICD firing at home when her arms were shaking while trying to lower herself to the toilet. Pacer interrogation after admission was without any evidence of ICD firing. Night of 01/17/22 - episode of syncope. Tele with ~ 40 seconds of ventricular fibrillation versus polymorphic VT per cardiology. She had 3 ICD shocks fired. No chest compressions. She did arouse after that. Following the events of 01/17 cardiology felt that the event was related to relative bradycardia. She had some ectopy and occasional pacing which likely triggered the event. Her pacemaker had been set to a rate of 50 s/p AV jennifer ablation during her previous admission. Cardiology increased pacer rate to 85 to prevent this from happening again. No VT/VF overnight. Continue telemetry. (4) Nonischemic cardiomyopathy: Plan: Chronic systolic heart failure. Appears compensated or even slightly volume contracted given the rise in Cr and K. Liberalize fluid restriction to 2000cc/day. Continue Metoprolol, dig, lasix. Entresto has been on hold due to hypotension issues recently. (5) Elevated LFTs: Plan: Present on admission -- but nearly back to normal Suspect hepatic congestion from decompensated CHF Continue daily lasix repeat ast / alt tomorrow (6) Anxiety: Plan: Continue home medications including recently started buspar TID (7) COPD, severe: Plan: without exacerbation at this time (8) Atrial fibrillation, permanent: Plan: s/p AV jennifer ablation 01/12/22. Pacer rate adjusted to 85 this admission (had been 50). Continue Digoxin Continue Toprol ECHO repeat 01/15 as per Cardiology to recheck LV function now that rates controlled shows slight improvement at EF 30-35% (up from 25-30%) and mild pericardial effusion (previous was moderate) Continue Xarelto (9) Bipolar disorder: Plan: Continue Seroquel, Trazodone Continue Buspar (10) Diabetes type 2, controlled: Plan: Diabetes type 2, controlled a1c <6.5% novolog SSI (11) GERD (gastroesophageal reflux disease): Plan: cont PPI (12) History of pulmonary embolism: Plan: Continue Xarelto (13) Chronic systolic CHF (congestive heart failure): Plan: see above (14) KIRSTIN (acute kidney injury): Plan: looks modestly volume contracted 264 pounds today urine is concentrated liberalize fluid restriction to 2000cc/day veltassa x 1 for mild hyperkalemia repeat BMP am holding entresto Plan seen by PT/OT - likely has progressed enough to return home with family support & home health spoke with pt's sister 01/23 - update given hopeful for d/c home on Tuesday, 01/25 Admission and Anticipated Discharge Date Admission Date: January 20, 2022 Subjective patient with multiple stools and copious gas overnight her abdominal pain is much better the LLQ pain she had when the kidney stone was discovered is "not nearly the way it was" despite straining the urine no stone has been seen she is eating albeit "less than usual" denies nausea or emesis denies back or flank pain asks about discharge home tomorrow? no c/o dyspnea today Review of Systems Review of Systems: gen - no fevers cv - no chest pain; baseline/chronic orthopnea pulm - no dyspnea or cough GI - no vomiting, minimal LLQ abd pain - no hematuria Physical Exam Physical Exam: gen - NAD, looks best she has looked all week neck - difficult to asses JVD due to neck size mouth - MMM heart - RRR, s1 s2, 1/6 systolic murmur LSB lungs - decreased BS bases, CTA b/l otherwise abd - no tenderness to palpation LLQ today; soft; no peritoneal signs; no HSM; BS+; no flank tenderness or tenderness any other location ext - no ankle/foot edema b/l, pulses 2+ b/l psych - a/o x 3 Results & Data Results & Data ([facility]) Vital Signs (Past 12 Hours) Vital Signs Temp Pulse Pulse Resp BP Pulse Ox O2 Del Method 01/24/22 19:28 36.7 C 83 18 114/79 98 Nasal Cannula 01/24/22 16:23 36.7 C 84 19 118/86 99 Nasal Cannula 01/24/22 14:42 84 01/24/22 16:03 85 01/24/22 15:31 Nasal Cannula 01/24/22 11:26 36.9 C 85 19 121/78 99 Nasal Cannula O2 Flow Rate 01/24/22 19:28 2 01/24/22 16:23 2 01/24/22 14:42 01/24/22 16:03 01/24/22 15:31 2 01/24/22 11:26 2 Laboratory Results Laboratory Results - last 24 hr 01/24/22 01/24/22 08:08 08:08 WBC 8.61 RBC 3.90 L Hgb 9.9 L Hct 32.0 L MCV 82.1 MCH 25.4 MCHC 30.9 L RDW Std Deviation 50.4 H RDW Coeff of Logan 16.9 H Plt Count 332 MPV 10.4 Absolute Nucleated RBC 0.05 H Nucleated RBC % (auto) 0.6 Sodium 134 L Potassium 5.3 H Chloride 97 L Carbon Dioxide 30 Anion Gap 7 BUN 21 Creatinine 1.48 H Est Cr Clr Drug Dosing 55.1 Est GFR ( Amer) 44.1 Est GFR (Non-Af Amer) 38.1 BUN/Creatinine Ratio 14.2 Glucose 94 Calcium 9.5 Magnesium 2.4 Diagnostic Findings KUB X-Ray 01/24/22 11:05 KUB HISTORY: L 3mm distal kidney stone, constipation COMPARISON: KUB 01/23/2022. FINDINGS: The bowel gas pattern is unremarkable. There are no dilated loops of small bowel to suggest an obstruction. The heart is enlarged. Left-sided pacemaker is noted. The patient's distal left ureteral stone is not visualized by x-ray. No pneumoperitoneum or pneumatosis. IMPRESSION: The patient's distal left ureteral stone is not identified by conventional radiographic technique. ACT 112: Negative or not required by law. Electronically signed by: Tyler Davis M.D. 01/24/2022 3:00 PM PG Care Time/CCT Total # of Minutes Spent Total Time Spent with Patient: Total time spent is greater than 50% in coordination of care (as documented) at patient's floor/unit and/or counseling patient: Coding Level of Care Code 04325 Subseq Hosp Care Lvl 3 Diagnoses Kidney stone on left side N20.0 Constipation K59.00 Ventricular fibrillation I49.01 Nonischemic cardiomyopathy I42.8 Elevated LFTs R79.89 Anxiety F41.9 COPD, severe J44.9 Atrial fibrillation, permanent I48.21 Bipolar disorder F31.9 Diabetes type 2, controlled E11.8 Diabetes mellitus complication status: with unspecified complications Diabetes mellitus intermediate designer insulin use: without intermediate designer use GERD (gastroesophageal reflux disease) K21.9 Esophagitis presence: esophagitis presence not specified History of pulmonary embolism Z86.711 Chronic systolic CHF (congestive heart failure) I50.22 KIRSTIN (acute kidney injury) N17.9 (1) Diabetes type 2, controlled Diabetes mellitus complication status: with unspecified complications Diabetes mellitus residential insulin use: without residential use Qualified Code(s): E11.8 - Type 2 diabetes mellitus with unspecified complications (2) GERD (gastroesophageal reflux disease) Esophagitis presence: esophagitis presence not specified Qualified Code(s): K21.9 - Gastro-esophageal reflux disease without esophagitis
[2022-01-25] MEDS: busPIRone 5 MG TAB PO SCH ×3 (08:09→20:14)
[2022-01-25] MEDS: PREGABALIN 150 MG CAP PO SCH ×2 (08:09→20:14)
[2022-01-25] MEDS: POLYETHYLENE (MIRALAX) 17 GM PACK PO SCH ×2 (08:09→20:15)
[2022-01-25] MEDS: PANTOprazole 40 MG TAB PO SCH (08:10)
[2022-01-25] MEDS: FUROSEMIDE 80 MG TAB PO SCH (08:10)
[2022-01-25] MEDS: QUEtiapine FUMARATE 100 MG TABLET PO SCH (08:10)
[2022-01-25] MEDS: DOCUSATE SODIUM 100 MG CAP PO SCH ×2 (08:10→20:14)
[2022-01-25] MEDS: METOPROLOL SUCC 50MG EXT REL TAB PO SCH (08:10)
[2022-01-25] MEDS: UMECLIDINIUM/VILANTEROL 62.5/25MCG 7 PUFFS/INHALER INH SCH (08:11)
[2022-01-25] MEDS: MAGNESIUM OXIDE 400 MG TAB PO SCH (08:11)
[2022-01-25] MEDS: ATORVASTATIN 10 MG TAB PO SCH (08:11)
[2022-01-25] MEDS: INSULIN ASPART PER UNIT SC SCH ×4 (08:41→20:16)
[2022-01-25 08:44] LABS: BUN Creatinine Ratio 16.8 (10-20); Calcium 9.3 mg/dl (8.5-10.1); Creatinine Clr Calc Pharmacy 68.4 ml/min; Est GFR (African American) 57.5 ml/min; Est GFR (Non-African American) 49.6 ml/min; Potassium 4.6 mmol/L (3.5-5.1)
[2022-01-25] MEDS: DIGOXIN 0.125 MG TAB PO SCH (16:00)
[2022-01-25] MEDS: RIVAROXABAN 20 MG TAB PO SCH (16:00)
[2022-01-25] MEDS: traZODone HCL 100 MG TAB PO SCH (20:15)
[2022-01-25] MEDS: QUEtiapine FUMARATE 200 MG TAB PO SCH (20:16)
--- NOTE | 2022-01-25 22:10 | Hospitalist Progress Note ---
Date of Service January 25, 2022 Assessment & Plan (1) Kidney stone on left side: Plan: 3mm distal stone at the UVJ. Suspect she has passed this stone; pain resolved, benign abdomen. Creatinine had been 1.4; now normal today. Defer on additional doses of flomax given her propensity for dizziness. Could consider a renal u/s to ensure left-sided hydronephrosis has resolved; if hydro is gone this would suggest successful passage of the stone (previous KUB x-rays could not identify the culprit stone). (2) Constipation: Plan: resolved cont miralax BID for maintenance cont colace BID consider senna daily as well KUB x-ray shows constipation is resolved (3) Ventricular fibrillation: Plan: Initially presented with what she thought was ICD firing at home when her arms were shaking while trying to lower herself to the toilet. Pacer interrogation after admission was without any evidence of ICD firing. Night of 01/17/22 - episode of syncope. Tele with ~ 40 seconds of ventricular fibrillation versus polymorphic VT per cardiology. She had 3 ICD shocks fired. No chest compressions. She did arouse after that. Following the events of 01/17 cardiology felt that the event was related to relative bradycardia. She had some ectopy and occasional pacing which likely triggered the event. Her pacemaker had been set to a rate of 50 s/p AV jennifer ablation during her previous admission. Cardiology increased pacer rate to 85 to prevent this from happening again. No VT/VF overnight. Continue telemetry. Continue metoprolol succinate. (4) Nonischemic cardiomyopathy: Plan: Chronic systolic heart failure. Appears compensated. Weight is 263 pounds today. Continue Metoprolol, dig, lasix. Entresto has been on hold due to hypotension issues recently. (5) Elevated LFTs: Plan: Present on admission Suspect hepatic congestion from decompensated CHF repeat ast / alt today wnl (6) Anxiety: Plan: Continue home medications Patient believes the buspar TID makes her dizzy - will stop at her request (7) COPD, severe: Plan: without exacerbation at this time (8) Atrial fibrillation, permanent: Plan: s/p AV jennifer ablation 01/12/22. Pacer rate adjusted to 85 this admission (had been 50). Continue Digoxin Continue Toprol ECHO repeat 01/15 as per Cardiology to recheck LV function now that rates controlled shows slight improvement at EF 30-35% (up from 25-30%) and mild dot cardial effusion (previous was moderate) Continue Xarelto (9) Bipolar disorder: Plan: Continue Seroquel, Trazodone (10) Diabetes type 2, controlled: Plan: Diabetes type 2, controlled a1c <6.5% novolog SSI (11) GERD (gastroesophageal reflux disease): Plan: cont PPI (12) History of pulmonary embolism: Plan: Continue Xarelto (13) Chronic systolic CHF (congestive heart failure): Plan: see above (14) KIRSTIN (acute kidney injury): Plan: Cr peaked at 1.4 improved to 1.19 today repeat BMP in am cont to hold Entresto (15) Hyperkalemia: Plan: resolved s/p veltassa high K was 2nd to #14 Plan seen by PT/OT - needs rehab patient agreeable to placement for such spoke with pt's sister 01/23 - update given Admission and Anticipated Discharge Date Admission Date: January 20, 2022 Subjective tele - pacing overnight patient sitting in chair feels good today ate good breakfast continues to have bowel movements LLQ pain largely resolved dizziness improved baseline MONSALVE and orthopnea ongoing Review of Systems Review of Systems: gen - no fevers, no chills cv - no chest pain pulm - no cough GI - no nausea or emesis - no dysuria, no hematuria Physical Exam Physical Exam: gen - NAD, looks very comfortable, spirits are better today neck - difficult to asses JVD due to neck size mouth - MMM heart - RRR, s1 s2, 1/6 systolic murmur LSB lungs - decreased BS bases, CTA b/l; no rales abd - no tenderness to palpation LLQ today; soft; no flank tenderness or tenderness any other location; BS+ ext - no ankle/foot edema b/l, pulses 2+ b/l psych - a/o x 3 skin - left orozco - scar from prior tib-fib surgery with "spongy" feel to central portion of scar - no change from prior exams Results & Data Results & Data ([facility]) Vital Signs (Past 12 Hours) Vital Signs Temp Pulse Pulse Resp BP BP Pulse Ox 01/25/22 19:20 36.7 C 84 22 108/74 98 01/25/22 16:06 86 01/25/22 16:00 81 01/25/22 15:15 36.4 C L 86 18 116/83 97 O2 Del Method O2 Flow Rate 01/25/22 19:20 Nasal Cannula 3 01/25/22 16:06 01/25/22 16:00 01/25/22 15:15 3 Laboratory Results Laboratory Results - last 24 hr 01/25/22 01/25/22 01/25/22 08:05 08:05 20:15 Sodium Cancelled 136 Potassium Cancelled 4.6 Chloride Cancelled 97 L Carbon Dioxide Cancelled 34 H Anion Gap Cancelled 5 BUN Cancelled 20 Creatinine Cancelled 1.19 Est Cr Clr Drug Dosing Cancelled 68.4 Est GFR ( Amer) Cancelled 57.5 Est GFR (Non-Af Amer) Cancelled 49.6 BUN/Creatinine Ratio Cancelled 16.8 Glucose Cancelled 82 POC Glucose 125 H Calcium Cancelled 9.3 AST 18 ALT 21 PG Care Time/CCT Total # of Minutes Spent Total Time Spent with Patient: Total time spent is greater than 50% in coordination of care (as documented) at patient's floor/unit and/or counseling patient: Coding Level of Care Code 00840 Subseq Hosp Care Lvl 2 Diagnoses Kidney stone on left side N20.0 Constipation K59.00 Ventricular fibrillation I49.01 Nonischemic cardiomyopathy I42.8 Elevated LFTs R79.89 Anxiety F41.9 COPD, severe J44.9 Atrial fibrillation, permanent I48.21 Bipolar disorder F31.9 Diabetes type 2, controlled E11.8 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: without custodial use Diabetes mellitus complication status: with unspecified complications GERD (gastroesophageal reflux disease) K21.9 Esophagitis presence: esophagitis presence not specified History of pulmonary embolism Z86.711 Chronic systolic CHF (congestive heart failure) I50.22 KIRSTIN (acute kidney injury) N17.9 Hyperkalemia E87.5 (1) Diabetes type 2, controlled Diabetes mellitus custodial insulin use: without custodial use Diabetes mellitus complication status: with unspecified complications Qualified Code(s): E11.8 - Type 2 diabetes mellitus with unspecified complications (2) GERD (gastroesophageal reflux disease) Esophagitis presence: esophagitis presence not specified Qualified Code(s): K21.9 - Gastro-esophageal reflux disease without esophagitis
[2022-01-26] MEDS: DOCUSATE SODIUM 100 MG CAP PO SCH (08:30)
[2022-01-26] MEDS: QUEtiapine FUMARATE 100 MG TABLET PO SCH (08:30)
[2022-01-26] MEDS: PREGABALIN 150 MG CAP PO SCH (08:30)
[2022-01-26] MEDS: ATORVASTATIN 10 MG TAB PO SCH (08:30)
[2022-01-26] MEDS: FUROSEMIDE 80 MG TAB PO SCH (08:30)
[2022-01-26] MEDS: MAGNESIUM OXIDE 400 MG TAB PO SCH (08:30)
[2022-01-26] MEDS: METOPROLOL SUCC 50MG EXT REL TAB PO SCH (08:31)
[2022-01-26] MEDS: POLYETHYLENE (MIRALAX) 17 GM PACK PO SCH (08:31)
[2022-01-26] MEDS: UMECLIDINIUM/VILANTEROL 62.5/25MCG 7 PUFFS/INHALER INH SCH (08:31)
[2022-01-26] MEDS: PANTOprazole 40 MG TAB PO SCH (08:31)
[2022-01-26] MEDS: INSULIN ASPART PER UNIT SC SCH ×3 (08:49→17:02)
[2022-01-26 09:50] LABS: BUN Creatinine Ratio 14.5 (10-20); Calcium 9.2 mg/dl (8.5-10.1); Creatinine Clr Calc Pharmacy 65.7 ml/min; Est GFR (African American) 54.7 ml/min; Est GFR (Non-African American) 47.2 ml/min; Potassium 3.9 mmol/L (3.5-5.1)
--- NOTE | 2022-01-26 14:00 | Discharge Summary ---
Date of Service January 26, 2022 Admission HPI Per Admitting Provider Grazyna Carson is a 61yo female with HTN, HLP, preDM, chronic hypoxia on supplemental O2, NICM with EF of 25-30% with biventricular pacer in place and BiPolar disorder. Patient was recently admitted to [facility] from 01/05/22 - 01/16/22. Patient had persistent AF with poor rate control. Had an AV node ablation performed by Dr. Christensen on 01/12/22 and pacer rate decreased to 50. Patient presents today with complaint of chest pain that started prior to arrival. She says that her ICD fired x 5 but they were just "small fires". She reports being scared and coming to the ER. Somnolent after receiving Ativan in the ER. Unable to provide additional history. Principal Diagnosis Ventricular fibrillation, Syncope, kidney stone, deconditioning Discharge Exam Constitutional WD/WN, vitals as above Eyes + anicteric sclerae Neck trachea midline, no thyromegaly Respiratory normal respiratory effort, lungs clear to auscultation Cardiovascular RRR, no murmur, no edema Chest (Breasts) Chest: normal inspection of chest Gastrointestinal (Abdomen) normal bowel sounds, soft, nontender, no hepatosplenomegaly Musculoskeletal Extremities: extremities normal to inspection; no cyanosis and no clubbing Skin no rashes, warm and dry Neurologic moves all extremities and awake; no focal motor deficits Psychiatric A+Ox3, euthymic affect Orientation: alert, oriented x 3 and cooperative Lymphatic no lymphedema Discharge Data Allergies Allergy/AdvReac Type Severity Reaction Status Date / Time fentanyl Allergy Mild RASH,ITCHIN Verified 01/05/22 16:11 G Consultations 01/17/22 04:05 ED Decision to Admit Stat 01/17/22 07:50 Consult Cardiology Routine Ordered Studies 01/17/22 19:56 CT head/brain wo con Urgent 01/20/22 18:48 CT Abd and Pelvis [CT abd pelvis oral and IV con] Urgent Hospital Course (1) Ventricular fibrillation: Initially presented with what she thought was ICD firing at home when her arms were shaking while trying to lower herself to the toilet. Pacer interrogation after admission was without any evidence of ICD firing. Night of 01/17/22 - episode of syncope. Tele with ~ 40 seconds of ventricular fibrillation versus polymorphic VT per cardiology. She had 3 ICD shocks fired. No chest compressions. She did arouse after that. Following the events of 01/17 cardiology felt that the event was related to relative bradycardia. She had some ectopy and occasional pacing which likely triggered the event. Her pacemaker had been set to a rate of 50 s/p AV jennifer ablation during her previous admission. Cardiology increased pacer rate to 85 to prevent this from happening again. No VT/VF since that time and doing well Continue metoprolol succinate. f/u with Cardiology after discharge (2) Kidney stone on left side: 3mm distal stone at the UVJ. Suspect she has passed this stone; pain resolved, benign abdomen. Creatinine had been 1.4;then normalized, no further pain, no hematuria Defer on additional doses of flomax given her propensity for dizziness. f/u as outpt (3) Constipation: resolved with laxatives KUB x-ray shows constipation is resolved (4) Nonischemic cardiomyopathy: Chronic systolic heart failure. Appears compensated. Continue Metoprolol, dig, lasix. Add on potassium 10 meq po daily on discharge (previous 40 meq had been discontinued last admission for hyperkalemia) Entresto has been on hold due to hypotension issues recently. f/u with CHF clinic (5) Elevated LFTs: Present on admission Suspect hepatic congestion from decompensated CHF repeat ast / alt now wnl (6) Anxiety: Continue home medications Patient believes the buspar TID makes her dizzy - will stop at her request (was just started last admission) (7) COPD, severe: without exacerbation at this time (8) Atrial fibrillation, permanent: s/p AV jennifer ablation 01/12/22. Pacer rate adjusted to 85 this admission (had been 50). Continue Digoxin Continue Toprol ECHO repeat 01/15 as per Cardiology to recheck LV function now that rates controlled shows slight improvement at EF 30-35% (up from 25-30%) and mild pericardial effusion (previous was moderate) Continue Xarelto (9) Bipolar disorder: Continue Seroquel, Trazodone (10) Diabetes type 2, controlled: Diabetes type 2, controlled a1c <6.5% continue home metformin on discharge (11) GERD (gastroesophageal reflux disease): cont PPI (12) History of pulmonary embolism: Continue Xarelto (13) Chronic systolic CHF (congestive heart failure): see above (14) KIRSTIN (acute kidney injury): Cr peaked at 1.4 improved/stable follow BMP as outpt cont to hold Entresto (15) Hyperkalemia: resolved s/p veltassa high K was 2nd to KIRSTIN Plan seen by PT/OT - needs rehab Patient adamant about going home and not going to rehab. She actually looks much better than when I saw her previously this stay. Stable for dc to home with home health Total Time Total Time Spent Total Time Spent (In Minutes): 35 min Discharge Plan Discharge Items Patient Disposition: Home - Home Health Services Reason For Visit: CHEST PAIN Discharge Diagnosis: Syncope, Ventricular fibrillation, kidney stone Condition on Discharge: Good Activity: Resume your previous activity Non-emergency contact: Primary Care Provider and Healthcare Architect Call non-emergency contact if: you have any medication questions and your symptoms worsen Follow-up/Referrals: Antonio Oliver MD [Primary Care Provider] - (Follow up within 1 week) Guilherme Pelayo MD [Physician] - (Follow up within 2 weeks) Catalina Almanza PA-C [Physician Hand Hide Stretcher] - 02/02/22 2:00 pm Diet: Heart Healthy and Low Sodium (2gm) Fluids: 1800ml (7 cups) Addtl Attending Provider Instructions: You were admitted for weakness but then after admission had an episode of passing out (syncope) caused by an abnormal heart rhythm called ventricular fibrillation. This required three shocks from your defibrillator to make it stop. Dr. Pelayo reprogrammed your pacemaker at a higher heart rate and this took care of your problem. Please continue your medications as prescribed. You were started on a lower dose of potassium pills at 10 meq per day. Your ENTRESTO was STOPPED during your last admission. You also had a small kidney stone this admission that you passed. Pending Studies at Discharge: No Stand-Alone Forms: My [facility] [employer], Smoking Cessation Medications and DC Order Prescriptions: New potassium chloride 10 mEq tablet extended release 10 meq PO DAILY Qty: 30 0RF Continued metformin 500 mg tablet 500 mg PO BID Qty: 60 5RF quetiapine [Seroquel] 400 mg tablet 400 mg PO HS (DME) Portable Oxygen Misc See Rx Instructions .MEDSUPPLY Qty: 1 0RF Rx Instructions: Oxygen 3 liters continuous with portable concentrator. MARGE 99 atorvastatin 10 mg tablet 10 mg PO QAM Qty: 90 3RF digoxin 125 mcg (0.125 mg) tablet 125 mcg PO QAM Qty: 90 3RF pregabalin 150 mg capsule 150 mg PO BID 30 Days Qty: 60 5RF docusate sodium [Colace] 100 mg capsule 100 mg PO BID Qty: 180 3RF (DME) Incentive Spirometer Misc See Rx Instructions .MEDSUPPLY Qty: 1 0RF Rx Instructions: As directed diclofenac sodium [Voltaren Arthritis Pain] 1 % gel 2 g topical QID PRN (Reason: arthritis) trazodone 100 mg tablet 200 mg PO HS quetiapine [Seroquel] 100 mg Tablet 100 mg PO QAM (DME) Oxygen Home Liters Per Minute See Rx Instructions .ROUTE .MEDSUPPLY Qty: 1 0RF Rx Instructions: As directed - 2 liters continuously magnesium oxide 400 mg (241.3 mg magnesium) tablet 400 mg PO QAM hydroxyzine HCl 50 mg Tablet 50 mg PO QPM PRN (Reason: Anxiety) Xarelto 20 mg tablet 20 mg PO QDD Qty: 90 2RF Rx Instructions: take with food at dinner time furosemide 40 mg tablet 80 mg PO QAM metoprolol succinate 100 mg tablet extended release 24 hr 100 mg PO QAM tramadol 50 mg tablet 50 mg PO QAM PRN (Reason: pain) omeprazole 20 mg capsule,delayed release(DR/EC) 20 mg PO QAM Anoro Ellipta 62.5-25 mcg/actuation blister with device 1 inh INH QAM Discontinued buspirone 5 mg Tablet 5 mg PO TID Qty: 90 0RF Discharge Orders: Discharge Order (Routine); Ordered 01/26/22 Ordered By: Monserrat Jackson/Other Patient Handouts: Prediabetes, 5 Steps for Eating Healthier Admission Data Admit Date/Time: 01/20/22 17:39 Attending Provider: Monserrat Hein Admit Provider: Luisa Sanchez Primary Care Provider: Antonio Oliver V. Other Providers: Luisa Sanchez ; Nolan Douglas Coding Level of Care Code D/C DAY MANAGEMENT >30 MINS Diagnoses Ventricular fibrillation I49.01 Kidney stone on left side N20.0 Constipation K59.00 Nonischemic cardiomyopathy I42.8 Elevated LFTs R79.89 Anxiety F41.9 COPD, severe J44.9 Atrial fibrillation, permanent I48.21 Bipolar disorder F31.9 Diabetes type 2, controlled E11.8 Diabetes mellitus complication status: with unspecified complications Diabetes mellitus buttermaker helper insulin use: without [facility] use GERD (gastroesophageal reflux disease) K21.9 Esophagitis presence: esophagitis presence not specified History of pulmonary embolism Z86.711 Chronic systolic CHF (congestive heart failure) I50.22 KIRSTIN (acute kidney injury) N17.9 Hyperkalemia E87.5
[2022-01-26] MEDS: RIVAROXABAN 20 MG TAB PO SCH (16:59)
[2022-01-26] MEDS: DIGOXIN 0.125 MG TAB PO SCH (16:59)
== END 2022-01-26 20:11 | disposition home health service (06) | DRG 309 ==
LOC: 2N 02:36 → ED 02:36 → SUATTDRO 04:51 → 2N 05:28 → SUATTDRO 01-20 17:39

== ENCOUNTER 2022-02-08 15:12 | Inpatient (IN) ==
[2022-02-08] MEDS ORDERED: FUROSEMIDE 40 MG/4 ML VIAL IV STA (15:38)
--- NOTE | 2022-02-08 16:01 | Emergency Department Note ---
History of Present Illness General Chief complaint: Shortness of Breath/Dyspnea Stated complaint: SHORT OB BREATH Time Seen by Provider: 02/08/22 15:18 History of Present Illness This is a 61-year-old female presents emergency department due to increased shortness of breath. Patient with complicated cardiac and pulmonary past history. Patient does wear 3 L/min chronically at home. Patient is anticoagulated due to prior history of PE. She does have a BiV pacemaker and longstanding history of chronic CHF. Patient with recent hospitalization for atrial fibrillation and did have ablation. Patient has had prior VF/VT. Patient now complains of 1 week of worsening shortness of breath. Patient does use Lasix daily. She admits to chills, however denies fever, nausea, vomiting. Patient states she does have chronic lower extremity edema. She denies any recent change in medication. Denies any known sick contacts. Denies any change in cough. Patient was trying to turn up her oxygen from her usual baseline 3 L. Pt seen during a time of high acuity and national emergency pandemic while wearing PPE. Home Medications Medication Instructions Recorded Confirmed Type trazodone 100 mg tablet 200 mg PO HS 10/07/18 02/08/22 History metformin 500 mg tablet 500 mg PO BID #60 tabs 12/15/18 02/08/22 Rx quetiapine 100 mg tablet (Seroquel) 100 mg PO QAM 01/02/19 02/08/22 History Oxygen Home #1 ea 05/09/19 02/08/22 Rx docusate sodium 100 mg capsule 100 mg PO BID #180 caps 06/28/19 02/08/22 Rx (Colace) quetiapine 400 mg tablet (Seroquel) 400 mg PO HS 07/05/19 02/08/22 History Portable Oxygen #1 ea 07/29/20 02/08/22 Rx magnesium oxide 400 mg (241.3 mg 400 mg PO QAM 03/24/21 02/08/22 History magnesium) tablet atorvastatin 10 mg tablet 10 mg PO QAM #90 tabs 04/21/21 02/08/22 Rx hydroxyzine HCl 50 mg tablet 50 mg PO QPM PRN Anxiety 05/06/21 02/08/22 History digoxin 125 mcg (0.125 mg) tablet 125 mcg PO QAM #90 tabs 06/16/21 02/08/22 Rx pregabalin 150 mg capsule 150 mg PO BID 30 days #60 caps 08/10/21 02/08/22 Rx Incentive Spirometer #1 ea 11/16/21 02/08/22 Rx diclofenac sodium 1 % topical gel 2 g topical QID PRN arthritis 12/10/21 02/08/22 History (Voltaren Arthritis Pain) furosemide 40 mg tablet 80 mg PO QAM 12/17/21 02/08/22 History metoprolol succinate 100 mg 100 mg PO QAM 12/17/21 02/08/22 History tablet,extended release 24 hr omeprazole 20 mg capsule,delayed 20 mg PO QAM 12/17/21 02/08/22 History release tramadol 50 mg tablet 50 mg PO QAM PRN pain 12/17/21 02/08/22 History umeclidinium 62.5 mcg-vilanterol 1 inh inhalation QAM 12/17/21 02/08/22 History 25 mcg/actuation powdr for inhalation (Anoro Ellipta) rivaroxaban 20 mg tablet (Xarelto) 20 mg PO QDD #90 tabs 01/16/22 02/08/22 Rx potassium chloride 10 mEq 10 meq PO DAILY #30 tabs 01/26/22 02/08/22 Rx tablet,extended release Allergies Allergy/AdvReac Type Severity Reaction Status Date / Time fentanyl Allergy Mild RASH,ITCHIN Verified 02/08/22 16:10 G Past Med/Surg History Medical History KIRSTIN (acute kidney injury) pt unaware Asthma inhaler prn Atrial fibrillation on xarelto/metoprolol/digoxin--follows with Dr. 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 pt denies History of pulmonary embolism HTN (hypertension) 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 unsure type of i nfection Left tibial fracture Memory impairment Morbid obesity On anticoagulant therapy xarelto daily On home oxygen therapy 2L N/C at all times Pericardial effusion Peripheral neuropathy PTSD (post-traumatic stress disorder) Pulmonary embolism 2013 while living in [place] - currently on Xarelto Pulmonary hypertension Restrictive lung disease 2L NC O2 continuous Schizoaffective disorder Severe mitral regurgitation Small bowel obstruction hx of - resolved with NG suction Ventricular arrhythmia Vitamin D deficiency Surgical History AICD (automatic cardioverter/defibrillator) present ~2006 - [facility] - ICD - meditronic - Follows Dr. Pelayo History of cardiac cath x2?-- - no stents - ICD placed 2006 - follows Dr. Pelayo History of decompression of both ulnar nerves History of eye surgery left History of hernia surgery x2 History of incision and drainage (~09/30/20) left tibia History of open reduction and internal fixation (ORIF) procedure left tibia--hardware in place History of tooth extraction partial upper S/P ORIF (open reduction internal fixation) fracture ankle, left--hardware in place S/P tubal ligation Family History Mother , in her 70s Congestive heart failure (CHF) Breast cancer Lung cancer from this Father No problems noted. Grandmother (Paternal) Stroke Other Hypertension No family history of adverse response to anesthesia Ulcerative colitis Denies family history of Colon cancer Ovarian cancer Prostate cancer Myocardial infarction Social History Smoking Status: Former smoker Tobacco Type: Cigarettes Years Smoked: 30; Second Hand Exposure: No; Hx Alcohol Use: Yes Alcohol type: hard liquor Alcohol Intake Frequency Comment: weekends only Hx Substance Use: No Preferred Language: Rwandan Communication Ability: Effective Visual Impairment: No Limitations Hearing Ability: Normal [employer] Cutter Required: No Beliefs That Will Affect Care: None marital status: marital status details: 5 kids Current Living Situation: Alone Current Living Situation Comment: Has an aide 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; 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; 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 [employer] 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 How many Children do You have: 5 other: lives in [place] Feels Safe at Home: Yes Childhood Exposure to Second-Hand Smoke: Yes Dental Care, Regularly: No Physical Activity Frequency: Does not Exercise Assistive Devices: Cane and Walker Review of Systems A total of 10 systems reviewed and were otherwise negative All systems reviewed & are unremarkable except as noted in HPI & below Physical Exam Vital Signs Vital Signs - 24 hr 02/08/22 15:23 02/08/22 15:23 02/08/22 16:16 Temperature 37.0 C Temperature Source Oral Pulse Rate 92 H Pulse Rate [Apical] Pulse Rate from SpO2 Sensor Respiratory Rate 30 H Respiratory Effort / Characteristics Spontaneous Labored Spontaneous Labored Respiratory Depth Respiratory Pattern Tachypnea Tachypnea Blood Pressure 133/57 L Blood Pressure Mean 82 Blood Pressure Position Sitting Pulse Oximetry 98 Oxygen Delivery Method Nasal Cannula Nasal Cannula Oxygen Flow Rate 3 3 4 Fraction of Inspired Oxygen 94 Sepsis Recent Fever Within 48 Hours No Sepsis New/Unexplained Change in Mental Status No Sepsis Action Taken by Nursing No Action Required 02/08/22 16:16 02/08/22 16:46 02/08/22 16:46 Temperature Temperature Source Pulse Rate 85 Pulse Rate [Apical] 84 Pulse Rate from SpO2 Sensor Respiratory Rate 40 H 40 H Respiratory Effort / Characteristics Spontaneous Short of Breath Spontaneous Short of Breath Respiratory Depth Shallow Respiratory Pattern Tachypnea Blood Pressure Blood Pressure Mean Blood Pressure Position Pulse Oximetry 35 L 96 Oxygen Delivery Method Nasal Cannula BiPAP Oxygen Flow Rate 4 Fraction of Inspired Oxygen 35 Sepsis Recent Fever Within 48 Hours Sepsis New/Unexplained Change in Mental Status Sepsis Action Taken by Nursing 02/08/22 15:45 02/08/22 16:19 02/08/22 16:30 Temperature Temperature Source Pulse Rate 85 87 Pulse Rate [Apical] Pulse Rate from SpO2 Sensor 84 Respiratory Rate 18 30 H Respiratory Effort / Characteristics Respiratory Depth Respiratory Pattern Blood Pressure Blood Pressure Mean Blood Pressure Position Pulse Oximetry 98 Oxygen Delivery Method Oxygen Flow Rate Fraction of Inspired Oxygen Sepsis Recent Fever Within 48 Hours Sepsis New/Unexplained Change in Mental Status Sepsis Action Taken by Nursing 02/08/22 16:45 02/08/22 16:45 02/08/22 17:00 Temperature Temperature Source Pulse Rate 85 84 Pulse Rate [Apical] Pulse Rate from SpO2 Sensor 83 85 Respiratory Rate 30 H 38 H Respiratory Effort / Characteristics Respiratory Depth Respiratory Pattern Blood Pressure 147/83 H Blood Pressure Mean 104 Blood Pressure Position Pulse Oximetry 96 98 Oxygen Delivery Method Oxygen Flow Rate Fraction of Inspired Oxygen Sepsis Recent Fever Within 48 Hours Sepsis New/Unexplained Change in Mental Status Sepsis Action Taken by Nursing 02/08/22 17:18 02/08/22 17:30 02/08/22 17:45 Temperature Temperature Source Pulse Rate Pulse Rate [Apical] Pulse Rate from SpO2 Sensor 84 80 69 Respiratory Rate Respiratory Effort / Characteristics Respiratory Depth Respiratory Pattern Blood Pressure Blood Pressure Mean Blood Pressure Position Pulse Oximetry 100 100 99 Oxygen Delivery Method Oxygen Flow Rate Fraction of Inspired Oxygen Sepsis Recent Fever Within 48 Hours Sepsis New/Unexplained Change in Mental Status Sepsis Action Taken by Nursing GENERAL: alert, anxious appearing, well nourished, no distress, non-toxic EYE EXAM: normal conjunctiva, PERRL and EOM's grossly intact OROPHARYNX: no exudate, no erythema, lips, buccal mucosa, and tongue normal and mucous membranes are moist NECK: supple, no nuchal rigidity, no adenopathy, non-tender LUNGS: Increased work of breathing, tachypnea, coarse breath sounds with bibasilar rales noted, no wheezing, patient wearing nasal cannula increased to 4 L/min HEART: no murmurs, S1 normal and S2 normal ABDOMEN: abdomen soft, non-tender, normo-active bowel sounds, no masses, no rebound or guarding. BACK: Back is symmetrical on inspection and there is no deformity, no midline tenderness, no CVA tenderness. SKIN: no rashes and no bruising UPPER EXTREMITIES: upper extremities are grossly normal. FROM, nml pulses b/l. LOWER EXTREMITIES: 2+ pitting edema. FROM, nml pulses b/l. NEURO EXAM: Normal sensorium, cranial nerves II-XII grossly intact, normal speech, no gross weakness of arms, no gross weakness of legs. Gross sensation intact. Course Administered Medications Atorvastatin Calcium (Atorvastatin 10 Mg Tab) 10 mg PO QAM [facility] Stop: 03/11/22 08:59 Last Admin: 02/09/22 09:31 Dose: 10 mg Documented By: SUB Benzonatate (Benzonatate 100 Mg Capsule) 100 mg PO TID [facility] Stop: 03/11/22 13:59 Last Admin: 02/09/22 14:22 Dose: 100 mg Documented By: SUB Digoxin (Digoxin 0.125 Mg Tab) 0.125 mg PO DAILY@1600 [facility] Stop: 03/11/22 15:59 Last Admin: 02/09/22 16:43 Dose: 0.125 mg Documented By: SUB Docusate Sodium (Docusate Sodium 100 Mg Cap) 100 mg PO BID [facility] Stop: 03/10/22 20:59 Last Admin: 02/09/22 09:31 Dose: 100 mg Documented By: Admin: 02/08/22 22:22 Dose: 100 mg Documented By: EEM Furosemide (Furosemide 40 Mg/4 Ml Vial) 80 mg IV [facility] Stop: 03/11/22 08:59 Last Admin: 02/09/22 09:32 Dose: 80 mg Documented By: SUB Hydroxyzine HCl (Hydroxyzine Hcl 25 Mg Tab) 25 mg PO TID PRN PRN Reason: Anxiety Stop: 03/10/22 20:17 Last Admin: 02/09/22 14:22 Dose: 25 mg Documented By: Admin: 02/09/22 03:05 Dose: 25 mg Documented By: EEM Insulin Aspart (Insulin Aspart Per Unit) 0 units SC [facility] Stop: 03/10/22 20:59 Last Admin: 02/09/22 17:36 Dose: Not Given Documented By: Admin: 02/09/22 12:54 Dose: Not Given Documented By: Admin: 02/09/22 08:41 Dose: Not Given Documented By: Admin: 02/08/22 22:22 Dose: Not Given Documented By: EEM Metoprolol Succinate (Metoprolol Succ 50mg Ext Rel Tab) 100 mg PO [facility] Stop: 03/11/22 08:59 Last Admin: 02/09/22 09:32 Dose: 100 mg Documented By: SUB Quetiapine Fumarate (Quetiapine Fumarate 100 Mg Tablet) 100 mg PO [facility] Stop: 03/11/22 08:59 Last Admin: 02/09/22 09:33 Dose: 100 mg Documented By: SUB Quetiapine Fumarate (Quetiapine Fumarate 200 Mg Tab) 400 mg PO [facility] Stop: 03/10/22 20:59 Last Admin: 02/08/22 22:22 Dose: 400 mg Documented By: EEM Rivaroxaban (Rivaroxaban 20 Mg Tab) 20 mg PO QDD [facility] Stop: 03/11/22 16:29 Last Admin: 02/09/22 17:36 Dose: 20 mg Documented By: SUB Trazodone HCl (Trazodone Hcl 100 Mg Tab) 100 mg PO [facility] Stop: 03/10/22 20:59 Last Admin: 02/08/22 22:22 Dose: 100 mg Documented By: EEM Umeclidinium/Vilanterol (Umeclidinium/Vilanterol 62.5/25mcg 7 Puffs/Inhaler) 1 puffs INH QAM [facility] Stop: 03/11/22 08:59 Last Admin: 02/09/22 09:33 Dose: 1 puffs Documented By: SUB Discontinued Medications Albuterol (Albut/Ipratrop 3mg/0.5mg Neb 3 Ml Vial) 3 ml NEB NOW STA; Protocol Stop: 02/08/22 16:46 Last Admin: 02/08/22 16:48 Dose: 3 ml Documented By: ALLISON Furosemide (Furosemide 40 Mg/4 Ml Vial) 60 mg IV ONE STA Stop: 02/08/22 15:39 Last Admin: 02/08/22 16:32 Dose: 60 mg Documented By: CLARK Lorazepam (Lorazepam 2 Mg/1 Ml Vial) 0.5 mg IV NOW STA; Protocol Stop: 02/08/22 16:31 Last Admin: 02/08/22 16:38 Dose: 0.5 mg Documented By: CLARK Critical Care Time Critical Care Time: Yes Total Critical Care Time: 46 Critical care of 46 min performed to assess and manage high likelihood of life-threatening dyspnea and hypoxia, involving labs and imaging performed with assessment to evaluate dyspnea and hypoxia diagnosis with frequent reassessment. This time includes bedside time, treatment discussions with patient/family/consultants, documentation time and excludes procedure time. Medical Decision Making Differential Diagnosis Differential diagnoses includes but is not limited to pneumonia, bronchitis, COPD/Asthma exacerbation, pneumothorax, pulmonary embolism, congestive heart failure, acute coronary syndrome Medical Records Attestation: I reviewed the patient's medical records. Home Medications Current Medication List: was personally reviewed by me Laboratory Data Attestation: I reviewed the patient's lab results. Result diagrams: 02/09/22 07:19 02/09/22 05:37 Lab Results 02/08/22 02/08/22 02/08/22 Range/Units 16:06 16:06 16:06 WBC 12.97 H (4.8-10.8) K/ul RBC 4.37 (3.93-5.22) M/uL Hgb 10.5 L (12.0-16.0) g/dl Hct 34.9 (34.1-44.9) % MCV 79.9 L (80.0-100.0) fL MCH 24.0 L (25.0-34.0) pg MCHC 30.1 L (32.0-36.0) g/dL RDW Std Deviation 49.1 H (36.4-46.3) fL RDW Coeff of Logan 17.1 H (11.5-14.5) % Plt Count 347 (130-400) K/uL MPV 10.0 (9.4-12.3) fL Immature Gran % (Auto) 0.5 % Neut % (Auto) 50.9 % Lymph % (Auto) 36.4 % Tompkins % (Auto) 10.3 % Eos % (Auto) 1.2 % Baso % (Auto) 0.7 % Neut # (Auto) 6.62 H (1.4-6.5) K/uL Lymph # (Auto) 4.72 H (1.2-3.4) K/uL Tompkins # (Auto) 1.33 H (0.24-0.82) K/uL Eos # (Auto) 0.15 (0-0.50) K/uL Baso # (Auto) 0.09 (0-0.2) K/uL Immature Gran # (Auto) 0.06 H (0.00-0.02) K/uL Absolute Nucleated RBC 0.19 H (0-0) K/uL Nucleated RBC % (auto) 1.5 % ABG pH (7.35-7.45) ABG pCO2 (35-46) mmHg ABG pO2 (80-95) mmHg ABG HCO3 (19-24) mmol/L ABG O2 Saturation (90-95) % ABG Base Excess (-9-1.8) mEq/L John Test (Pos) Oxygen Given Sodium 133 L (136-145) mmol/L Potassium 4.5 (3.5-5.1) mmol/L Chloride 94 L (98-107) mmol/L Carbon Dioxide 18 L (21-32) mmol/L Anion Gap 21 H (3-11) BUN 24 H (6-23) mg/dl Creatinine 1.18 (0.6-1.2) mg/dl Est Cr Clr Drug Dosing 69.0 ml/min Est GFR ( Amer) 58.1 ml/min Est GFR (Non-Af Amer) 50.1 ml/min BUN/Creatinine Ratio 20.3 H (10-20) Glucose 179 H (70-99(Fasting)) mg/dl Calcium 9.1 (8.5-10.1) mg/dl Magnesium 1.9 (1.7-2.4) mg/dl Total Bilirubin 1.4 H (0.2-1.0) mg/dl AST 20 (13-39) U/L ALT 17 (7-52) U/L Alkaline Phosphatase 168 H (34-104) U/L Troponin I High Sens 30.2 H D (0-14) pg/ml B-Natriuretic Peptide 2264 H (0-100) pg/ml Total Protein 7.3 (6.0-8.3) gm/dl Albumin 3.7 (3.4-5.0) gm/dl Globulin 3.6 (2.5-4.0) gm/dl Albumin/Globulin Ratio 1.0 (0.9-2) Adenovirus (PCR) (NotDetected) B. pertussis DNA (PCR) (NotDetected) B.parapertussis DNA PCR (NotDetected) C. pneumoniae DNA (PCR) (NotDetected) Coronavirus OC43 (PCR) (NotDetected) Coronavirus HKU1 (PCR) (NotDetected) Coronavirus 229E (PCR) (NotDetected) SARS-CoV-2 (PCR) (NotDetected) Coronavirus NL63 (PCR) (NotDetected) Human Metapneumovir PCR (NotDetected) Influenza Type A (PCR) (NotDetected) Influenza Type B (PCR) (NotDetected) M. pneumoniae (PCR) (NotDetected) Parainfluenza 1 (PCR) (NotDetected) Parainfluenza 2 (PCR) (NotDetected) Parainfluenza 3 (PCR) (NotDetected) Parainfluenza 4 (PCR) (NotDetected) RSV (PCR) (NotDetected) Entero/Rhino (PCR) (NotDetected) 02/08/22 02/08/22 Range/Units 16:06 16:54 WBC (4.8-10.8) K/ul RBC (3.93-5.22) M/uL Hgb (12.0-16.0) g/dl Hct (34.1-44.9) % MCV (80.0-100.0) fL MCH (25.0-34.0) pg MCHC (32.0-36.0) g/dL RDW Std Deviation (36.4-46.3) fL RDW Coeff of Logan (11.5-14.5) % Plt Count (130-400) K/uL MPV (9.4-12.3) fL Immature Gran % (Auto) % Neut % (Auto) % Lymph % (Auto) % Tompkins % (Auto) % Eos % (Auto) % Baso % (Auto) % Neut # (Auto) (1.4-6.5) K/uL Lymph # (Auto) (1.2-3.4) K/uL Tompkins # (Auto) (0.24-0.82) K/uL Eos # (Auto) (0-0.50) K/uL Baso # (Auto) (0-0.2) K/uL Immature Gran # (Auto) (0.00-0.02) K/uL Absolute Nucleated RBC (0-0) K/uL Nucleated RBC % (auto) % ABG pH 7.29 L (7.35-7.45) ABG pCO2 39 (35-46) mmHg ABG pO2 86 (80-95) mmHg ABG HCO3 19 (19-24) mmol/L ABG O2 Saturation 96.6 H (90-95) % ABG Base Excess -7.3 (-9-1.8) mEq/L John Test POS (Pos) Oxygen Given 3L O2 Sodium (136-145) mmol/L Potassium (3.5-5.1) mmol/L Chloride (98-107) mmol/L Carbon Dioxide (21-32) mmol/L Anion Gap (3-11) BUN (6-23) mg/dl Creatinine (0.6-1.2) mg/dl Est Cr Clr Drug Dosing ml/min Est GFR ( Amer) ml/min Est GFR (Non-Af Amer) ml/min BUN/Creatinine Ratio (10-20) Glucose (70-99(Fasting)) mg/dl Calcium (8.5-10.1) mg/dl Magnesium (1.7-2.4) mg/dl Total Bilirubin (0.2-1.0) mg/dl AST (13-39) U/L ALT (7-52) U/L Alkaline Phosphatase (34-104) U/L Troponin I High Sens (0-14) pg/ml B-Natriuretic Peptide (0-100) pg/ml Total Protein (6.0-8.3) gm/dl Albumin (3.4-5.0) gm/dl Globulin (2.5-4.0) gm/dl Albumin/Globulin Ratio (0.9-2) Adenovirus (PCR) Not Detected (NotDetected) B. pertussis DNA (PCR) Not Detected (NotDetected) B.parapertussis DNA PCR Not Detected (NotDetected) C. pneumoniae DNA (PCR) Not Detected (NotDetected) Coronavirus OC43 (PCR) Not Detected (NotDetected) Coronavirus HKU1 (PCR) Not Detected (NotDetected) Coronavirus 229E (PCR) Not Detected (NotDetected) SARS-CoV-2 (PCR) Not Detected (NotDetected) Coronavirus NL63 (PCR) Not Detected (NotDetected) Human Metapneumovir PCR Not Detected (NotDetected) Influenza Type A (PCR) Not Detected (NotDetected) Influenza Type B (PCR) Not Detected (NotDetected) M. pneumoniae (PCR) Not Detected (NotDetected) Parainfluenza 1 (PCR) Not Detected (NotDetected) Parainfluenza 2 (PCR) Not Detected (NotDetected) Parainfluenza 3 (PCR) Not Detected (NotDetected) Parainfluenza 4 (PCR) Not Detected (NotDetected) RSV (PCR) Not Detected (NotDetected) Entero/Rhino (PCR) Not Detected (NotDetected) Imaging Data Radiologist's Impression: Chest X-Ray 02/08/22 15:27 XR chest 1V portable CLINICAL HISTORY: Dyspnea COMPARISON STUDY: Chest radiograph January 17, 2022. Chest CT May 06, 2021. FINDINGS: There is no pneumothorax. A left pleural effusion has decreased in size since prior exam of January 17, 2022. A small to moderate right pleural effusion has increased. Right suprahilar density is likely artifactual. There is persistent pulmonary edema with bibasilar opacities. There is marked cardiomegaly. Left subclavian biventricular pacer/AICD is in place. IMPRESSION: 1. Marked cardiomegaly with persistent pulmonary edema. 2. Bilateral pleural effusions, right larger left, with associated bibasilar opacities. 3. Right suprahilar density which likely reflects summation artifact. This can be assessed on follow-up exams. ACT 112: Negative or not required by law. Electronically signed by: Gurmeet Zamora M.D. 02/08/2022 4:01 PM ECG Data Attestation: I personally reviewed and interpreted this ECG as follows: Indication: + SOB/dyspnea Rate (beats per minute): 86 Rhythm: + other ECG Intervals/blocks: + IVCD and + Prolonged QT ECG [place]: + Left axis deviation ECG ST segments: + Nonspecific ST abnormalities MDM Narrative An order was placed for continuous cardiac monitoring. The monitor shows a rate of _78__ with _paced__ rhythm. This is an ill-appearing 61-year-old female who presents due to increased shortness of breath despite use of her chronic home oxygen. Patient with complicated pulmonary and cardiac history. She is chronically anticoagulated. While patient's oxygen was improved with turning up her oxygen via nasal cannula, due to concern for her increased work of breathing, coarse breath sounds with bibasilar rales, and history of CHF, I contacted respiratory to initiate BiPAP therapy on her. There was a delay and some difficulty in obtaining IV access, however this was eventually obtained, labs drawn and sent, patient given IV Lasix. DuoNeb was also added through the patient's BiPAP. Patient rechecked multiple times due to concern for her presentation and monitoring of any evolution of her symptoms. Patient was requesting something for anxiety, a careful and cautious dose of Ativan was given as patient does use anxiolytics daily. Patient did slowly improve following initiation of BiPAP t herapy. I do not suspect PE as she states she has been taking her daily anticoagulation. This does appear more consistent with acute on chronic CHF. He was found to have a mildly elevated troponin and significantly elevated BNP. Patient's H&H stable compared to prior. We discussed all results at bedside. Discussed with hospitalist for additional evaluation and management. Impression & Plan Acute and chronic respiratory failure with hypoxia, Nonischemic cardiomyopathy, Pulmonary edema, Acute on chronic HFrEF (heart failure with reduced ejection fraction) Discharge Plan Visit Data Chief Complaint: Shortness of Breath/Dyspnea Stated Complaint: SHORT OB BREATH ED Provider: Breonna Box ED Midlevel Provider: Dustin Renteria Discharge Problem: Acute and chronic respiratory failure with hypoxia, Nonischemic cardiomyopathy, Pulmonary edema, Acute on chronic HFrEF (heart failure with reduced ejection fraction) Patient Disposition: Admitted As Inpatient Discharge Instructions Interventions: ED Discharge Assessment Last Done: 02/08/22 20:08
--- NOTE | 2022-02-08 16:21 | Communication Note ---
Date of Service: February 08, 2022 Resident attestation note. I saw the patient with ED attending Dr. Box as part of my ED rotation. I did not participate in the ED attending note documentation. Resident Activity Tracking Resident Involvement: Resident Care Provided Care Provided: Adult ED
[2022-02-08 16:22] LABS: Base Excess ABG -7.3 mEq/L (-9-1.8); Basophils # (auto) 0.09 K/uL (0-0.2); Basophils % (auto) 0.7 %; Eosinophils # (auto) 0.15 K/uL (0-0.50); Eosinophils % (auto) 1.2 %; HCO3 ABG 19 mmol/L (19-24); Hematocrit (blood only) 34.9 % (34.1-44.9); Hemoglobin 10.5 g/dl (12.0-16.0); Immature Granulocytes # (auto) 0.06 K/uL (0.00-0.02); Immature Granulocytes % (auto) 0.5 %; Lymphocytes # (auto) 4.72 K/uL (1.2-3.4); Lymphocytes % (auto) 36.4 %; Mean Corpuscular Hgb Conc 30.1 g/dL (32.0-36.0); Mean Corpuscular Volume 79.9 fL (80.0-100.0); Monocytes # (auto) 1.33 K/uL (0.24-0.82); Monocytes % (auto) 10.3 %; Neutrophils # (auto) 6.62 K/uL (1.4-6.5); Neutrophils % (auto) 50.9 %; Nucleated RBC # (auto) 0.19 K/uL (0-0); Nucleated RBC % (auto) 1.5 %; Oxygen Saturation ABG 96.6 % (90-95); PCO2 ABG 39 mmHg (35-46); PO2 ABG 86 mmHg (80-95); Platelet Count 347 K/uL (130-400); RDW Coefficient of Variation 17.1 % (11.5-14.5); RDW Standard Deviation 49.1 fL (36.4-46.3); Red Blood Count 4.37 M/uL (3.93-5.22); White Blood Count 12.97 K/ul (4.8-10.8); pH ABG 7.29 (7.35-7.45)
[2022-02-08 16:23] LABS: Allen Test POS (Pos)
[2022-02-08] MEDS ORDERED: LORazepam 2 MG/1 ML VIAL IV STA (16:30)
[2022-02-08] MEDS ORDERED: ALBUT/IPRATROP 3MG/0.5MG NEB 3 ML VIAL NEB STA (16:45)
[2022-02-08 16:48] LABS: Albumin Level 3.7 gm/dl (3.4-5.0); BUN Creatinine Ratio 20.3 (10-20); Bilirubin,Total 1.4 mg/dl (0.2-1.0); Calcium 9.1 mg/dl (8.5-10.1); Est GFR (African American) 58.1 ml/min; Est GFR (Non-African American) 50.1 ml/min; Globulin 3.6 gm/dl (2.5-4.0); Magnesium 1.9 mg/dl (1.7-2.4); Potassium 4.5 mmol/L (3.5-5.1); Total Protein 7.3 gm/dl (6.0-8.3)
[2022-02-08 16:54] LABS: Troponin I High Sensitivity 30.2 pg/ml (0-14)
--- NOTE | 2022-02-08 17:57 | History & Physical Report ---
Date of Service February 08, 2022 Assessment & Plan (1) Acute on chronic HFrEF (heart failure with reduced ejection fraction): Plan: Equivocal to me. Some edema on legs, but not severe. No JVD, but hard to assess given body habitus. However, BNP significantly elevated from priors, and CXR with pulmonary edema. Procal and respiratory viral panel both negative. - Lasix 60 mg IV given in ER; continue Lasix 80 mg IV daily (double home dosing) - Fluid restriction - Weights and I&Os - Admit to telemetry - BiPap PRN -> Improved on second review; now on home O2. - Limited echo ordered to review EF; wall motion. (2) High anion gap metabolic acidosis: Plan: AG is 21 from normal on discharge. ABG showed a mild metabolic acidosis. Lactate of 7.0. Infection is highest concern, but source is unclear. No focal pneumonia on CXR. UA pending, but no symptoms. No area of erythema or pain or redness on skin exam. Other MUDPILES causes seem unlikely as patient reports no ingestions, glucose not substantially elevated, BUN only mildly elevated. - Blood cultures and UA ordered - RUQ u/s for elevated bilirubin - Monitor for other focal symptoms - Given no convincing sign of infection, defer abx at this time. If she has fever or has hemodynamic changes, would consider empiric abx. (3) Anemia: Plan: Chronic anemia with hgb 9-10, but now with microcytosis. Iron studies from ~3 years ago indicated low iron. - Repeat anemia labs - Can give IV iron if infection is ruled out. (4) Nonischemic cardiomyopathy: Plan: Echo this month showed EF 30 - 35%. - Continue home metoprolol - Plan as above (5) HTN (hypertension): Plan: BP is 145/80 at this time. - Continue home metoprolol (6) Diabetes type 2, controlled: Plan: A1c of 6.4% last admission. - Hold metformin - Sliding scale insulin (7) Bipolar disorder: Plan: Bipolar and anxiety. Normal affect on interview today. - Continue home hydroxyzine (lower dose, but increase frequency for hospital- related anxiety), continue home quetiapine - Continue home trazodone, but lower dose (8) Atrial fibrillation: Plan: Now with pacemaker. - Continue Xarelto - Continue beta-julee and digoxin (9) DVT prophylaxis: Plan: Xarelto for afib FULL CODE History of Present Illness Primary Care Provider: Antonio Oliver MD 61yo F w/ hx of HFrEF who presents with acute shortness of breath. The patient is wearing BiPap and has trouble communicating, but as best I can understand, she reports she was discharged and started feeling increasing shortness of breath within a few days after discharge. She reports that over the last few days, her shortness of breath increased significantly. She reports some increased cough and orthopnea. She had to turn up her home O2 as well just today. She reports that she has been taking her Lasix and other medications as prescr ibed. Reports 2 episodes of diarrhea two days ago after meds for constipation last admission, but otherwise none. No melena or hematochezia with it. No emesis. No dysuria or polyuria. Allergies Allergy/AdvReac Type Severity Reaction Status Date / Time fentanyl Allergy Mild RASH,ITCHIN Verified 02/08/22 16:10 G Home Medications Medication Instructions Recorded Confirmed Type trazodone 100 mg tablet 200 mg PO HS 10/07/18 02/08/22 History metformin 500 mg tablet 500 mg PO BID #60 tabs 12/15/18 02/08/22 Rx quetiapine 100 mg tablet (Seroquel) 100 mg PO QAM 01/02/19 02/08/22 History Oxygen Home #1 ea 05/09/19 02/08/22 Rx docusate sodium 100 mg capsule 100 mg PO BID #180 caps 06/28/19 02/08/22 Rx (Colace) quetiapine 400 mg tablet (Seroquel) 400 mg PO HS 07/05/19 02/08/22 History Portable Oxygen #1 ea 07/29/20 02/08/22 Rx magnesium oxide 400 mg (241.3 mg 400 mg PO QAM 03/24/21 02/08/22 History magnesium) tablet atorvastatin 10 mg tablet 10 mg PO QAM #90 tabs 04/21/21 02/08/22 Rx hydroxyzine HCl 50 mg tablet 50 mg PO QPM PRN Anxiety 05/06/21 02/08/22 History digoxin 125 mcg (0.125 mg) tablet 125 mcg PO QAM #90 tabs 06/16/21 02/08/22 Rx pregabalin 150 mg capsule 150 mg PO BID 30 days #60 caps 08/10/21 02/08/22 Rx Incentive Spirometer #1 ea 11/16/21 02/08/22 Rx diclofenac sodium 1 % topical gel 2 g topical QID PRN arthritis 12/10/21 02/08/22 History (Voltaren Arthritis Pain) furosemide 40 mg tablet 80 mg PO QAM 12/17/21 02/08/22 History metoprolol succinate 100 mg 100 mg PO QAM 12/17/21 02/08/22 History tablet,extended release 24 hr omeprazole 20 mg capsule,delayed 20 mg PO QAM 12/17/21 02/08/22 History release tramadol 50 mg tablet 50 mg PO QAM PRN pain 12/17/21 02/08/22 History umeclidinium 62.5 mcg-vilanterol 1 inh inhalation QAM 12/17/21 02/08/22 History 25 mcg/actuation powdr for inhalation (Anoro Ellipta) rivaroxaban 20 mg tablet (Xarelto) 20 mg PO QDD #90 tabs 01/16/22 02/08/22 Rx potassium chloride 10 mEq 10 meq PO DAILY #30 tabs 01/26/22 02/08/22 Rx tablet,extended release Past Med/Surg History Medical History KIRSTIN (acute kidney injury) pt unaware Asthma inhaler prn Atrial fibrillation on xarelto/metoprolol/digoxin--follows with Dr. 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 pt denies History of pulmonary embolism HTN (hypertension) 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 unsure type of i nfection Left tibial fracture Memory impairment Morbid obesity On anticoagulant therapy xarelto daily On home oxygen therapy 2L N/C at all times Pericardial effusion Peripheral neuropathy PTSD (post-traumatic stress disorder) Pulmonary embolism 2013 while living in [place] - currently on Xarelto Pulmonary hypertension Restrictive lung disease 2L NC O2 continuous Schizoaffective disorder Severe mitral regurgitation Small bowel obstruction hx of - resolved with NG suction Ventricular arrhythmia Vitamin D deficiency Surgical History AICD (automatic cardioverter/defibrillator) present ~2006 - [facility] - ICD - meditronic - Follows Dr. Pelayo History of cardiac cath x2?-- - no stents - ICD placed 2006 - follows Dr. Pelayo History of decompression of both ulnar nerves History of eye surgery left History of hernia surgery x2 History of incision and drainage (~09/30/20) left tibia History of open reduction and internal fixation (ORIF) procedure left tibia--hardware in place History of tooth extraction partial upper S/P ORIF (open reduction internal fixation) fracture ankle, left--hardware in place S/P tubal ligation Family History Mother , in her 70s Congestive heart failure (CHF) Breast cancer Lung cancer from this Father No problems noted. Grandmother (Paternal) Stroke Other Hypertension No family history of adverse response to anesthesia Ulcerative colitis Denies family history of Colon cancer Ovarian cancer Prostate cancer Myocardial infarction Social History Smoking Status: Former smoker Tobacco Type: Cigarettes Years Smoked: 30; Second Hand Exposure: No; Hx Alcohol Use: Yes Alcohol type: hard liquor Alcohol Intake Frequency Comment: weekends only Hx Substance Use: Yes Last Used Substance Other:: more than 1 week ago Substance Use Type Other:: marijuana oil. Has med card. 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 How many Children do You have: 5 other: lives in [place] Feels Safe at Home: Yes Childhood Exposure to Second-Hand Smoke: Yes Dental Care, Regularly: No Physical Activity Frequency: Does not Exercise Assistive Devices: Oxygen - Continuous Review of Systems Review of Systems: All systems reviewed & are unremarkable except as noted in HPI & below Physical Exam Constitutional: WD/WN, vitals as above + acute distress and + morbidly obese Eyes: EOM intact bilaterally; no conjunctival abnormality ENMT: external ear and nose normal, oropharynx normal Neck: trachea midline, no thyromegaly normal visual inspection Respiratory: + respiratory distress, + labored breathing, + cough and + tachypneic Auscultation: + crackles; no wheezes Cardiovascular: RRR, no murmur, no edema Gastrointestinal (Abdomen): Inspection/Auscultation: abdomen normal to inspection; abdomen not distended Percussion/Palpation: abdomen soft; abdomen nontender, no guarding and abdomen not rigid Musculoskeletal: no cyanosis or clubbing, extremities motor strength 5/5 Skin: no rashes, warm and dry Neurologic: moves all extremities and awake Psychiatric: Orientation: alert, oriented to person and cooperative Results & Data Results & Data ([facility]) Vital Signs (Past 12 Hours) Vital Signs Temp Pulse Pulse Resp BP Pulse Ox O2 Del Method 02/08/22 16:45 85 30 H 96 02/08/22 16:45 147/83 H 02/08/22 16:30 87 30 H 02/08/22 16:19 85 18 02/08/22 15:45 98 02/08/22 16:46 85 40 H 96 02/08/22 16:46 84 40 H 35 L BiPAP 02/08/22 16:16 Nasal Cannula 02/08/22 16:16 Nasal Cannula 02/08/22 15:23 37.0 C 92 H 30 H 133/57 L 98 Nasal Cannula 02/08/22 15:23 O2 Flow Rate FiO2 02/08/22 16:45 02/08/22 16:45 02/08/22 16:30 02/08/22 16:19 02/08/22 15:45 02/08/22 16:46 35 02/08/22 16:46 02/08/22 16:16 4 02/08/22 16:16 4 94 02/08/22 15:23 3 02/08/22 15:23 3 Code Status & VTE Plan VTE Prophylaxis Plan VTE Prophylaxis will be ordered: Yes PG Care Time/CCT Total # of Minutes Spent Total Time Spent with Patient: Total time spent is greater than 50% in coordination of care (as documented) at patient's floor/unit and/or counseling patient: Coding Level of Care Code 37545 Initial In Care Lvl 3 Diagnoses Acute on chronic HFrEF (heart failure with reduced ejection fraction) I50.23 High anion gap metabolic acidosis E87.2 Anemia D64.9 Nonischemic cardiomyopathy I42.8 HTN (hypertension) I10 Hypertension type: essential hypertension Diabetes type 2, controlled E11.8 Diabetes mellitus complication status: with unspecified complications Diabetes mellitus skilled nursing insulin use: without skilled nursing use Bipolar disorder F31.9 Atrial fibrillation I48.20 Atrial fibrillation type: unspecified chronic DVT prophylaxis Z29.9 (1) Atrial fibrillation Atrial fibrillation type: unspecified chronic Qualified Code(s): I48.20 - Chronic atrial fibrillation, unspecified (2) Diabetes type 2, controlled Diabetes mellitus complication status: with unspecified complications Diabetes mellitus assistant terminal manager insulin use: without assistant terminal manager use Qualified Code(s): E11.8 - Type 2 diabetes mellitus with unspecified complications (3) HTN (hypertension) Hypertension type: essential hypertension Qualified Code(s): I10 - Essential (primary) hypertension
[2022-02-08 18:10] LABS: Adenovirus PCR Not Detected (NotDetected); Bordetella parapertussis PCR Not Detected (NotDetected); Bordetella pertussis PCR Not Detected (NotDetected); Chlamydia pneumoniae PCR Not Detected (NotDetected); Coronavirus 229E PCR Not Detected (NotDetected); Coronavirus CoV-2 (COVID19)PCR Not Detected (NotDetected); Coronavirus HKU1 PCR Not Detected (NotDetected); Coronavirus NL63 PCR Not Detected (NotDetected); Coronavirus OC43PCR Not Detected (NotDetected); Human Metapneumovirus PCR Not Detected (NotDetected); Influenza A PCR Not Detected (NotDetected); Influenza B PCR Not Detected (NotDetected); Mycoplasma pneumoniae PCR Not Detected (NotDetected); Parainfluenza Virus 1 PCR Not Detected (NotDetected); Parainfluenza Virus 2 PCR Not Detected (NotDetected); Parainfluenza Virus 3 PCR Not Detected (NotDetected); Parainfluenza Virus 4 PCR Not Detected (NotDetected); Respiratory Syncytial VirusPCR Not Detected (NotDetected); Rhinovirus/Enterovirus PCR Not Detected (NotDetected)
[2022-02-08] MEDS ORDERED: GLUCOSE 40% GEL 15 GM TUBE PO PRN (20:18)
[2022-02-08] MEDS ORDERED: ALBUT/IPRATROP 3MG/0.5MG NEB 3 ML VIAL NEB PRN (20:18)
[2022-02-08] MEDS ORDERED: ONDANSETRON INJ 2 MG/ML 2 ML VIAL IV PRN (20:18)
[2022-02-08] MEDS ORDERED: CARBOHYDRATES FOR HYPOGLYCEMIA PO PRN (20:18)
[2022-02-08] MEDS ORDERED: DEXTROSE 50% 50 ML SYRINGE IV PRN (20:18)
[2022-02-08] MEDS ORDERED: GLUCAGON FOR INJ 1 MG VIAL SQ PRN (20:18)
[2022-02-08] MEDS ORDERED: GLUCOSE 10 TAB/TUBE PO PRN (20:18)
[2022-02-08] MEDS ORDERED: ACETAMINOPHEN 325 MG TAB PO PRN (20:18)
[2022-02-08 21:12] LABS: Appearance Urine Clear (Clear); Bacteria Urine Automated Negative (Negative); Bilirubin Urine Negative (Negative); Blood Urine Negative (Negative); Color Urine Yellow; Epithelial Cell Urine Auto >30 /lpf (0-5); Glucose Urine UA Negative (Negative); Ketones Urine Negative (Negative); Leukocyte Esterase Urine Trace (Negative); Nitrite Urine Negative (Negative); Protein Urine 1+ (Negative); RBC Urine Automated 0-4 /hpf (0-4); Specific Gravity Urine 1.008 (1.000-1.030); Urobilinogen Urine Negative (Negative)
[2022-02-08] MEDS: QUEtiapine FUMARATE 200 MG TAB PO SCH (22:22)
[2022-02-08] MEDS: INSULIN ASPART PER UNIT SC SCH (22:22)
[2022-02-08] MEDS: traZODone HCL 100 MG TAB PO SCH (22:22)
[2022-02-08] MEDS: DOCUSATE SODIUM 100 MG CAP PO SCH (22:22)
[2022-02-09] MEDS: hydrOXYzine HCl 25 MG TAB PO PRN ×2 (03:05→14:22)
[2022-02-09 06:21] LABS: BUN Creatinine Ratio 24.5 (10-20); Calcium 9.2 mg/dl (8.5-10.1); Creatinine Clr Calc Pharmacy 76.9 ml/min; Est GFR (African American) 66.1 ml/min; Magnesium 1.8 mg/dl (1.7-2.4); Potassium 4.1 mmol/L (3.5-5.1)
[2022-02-09 06:32] LABS: Troponin I High Sensitivity 79.7 pg/ml (0-14)
[2022-02-09 06:45] LABS: Folate (Folic Acid) > 22.30 ng/ml (>5.38)
[2022-02-09 06:46] LABS: Vitamin B12 662 pg/ml (180-914)
[2022-02-09 07:39] LABS: Hematocrit (blood only) 33.1 % (34.1-44.9); Hemoglobin 10.3 g/dl (12.0-16.0); Mean Corpuscular Hemoglobin 24.3 pg (25.0-34.0); Mean Corpuscular Hgb Conc 31.1 g/dL (32.0-36.0); Mean Corpuscular Volume 78.1 fL (80.0-100.0); Mean Platelet Volume 9.9 fL (9.4-12.3); Nucleated RBC # (auto) 0.14 K/uL (0-0); Nucleated RBC % (auto) 1.2 %; Platelet Count 356 K/uL (130-400); RDW Standard Deviation 47.7 fL (36.4-46.3); Red Blood Count 4.24 M/uL (3.93-5.22); White Blood Count 11.65 K/ul (4.8-10.8)
[2022-02-09] MEDS: INSULIN ASPART PER UNIT SC SCH ×4 (08:41→21:41)
--- NOTE | 2022-02-09 08:45 | XCELERA ---
[id number]
[2022-02-09] MEDS: DOCUSATE SODIUM 100 MG CAP PO SCH ×2 (09:31→21:39)
[2022-02-09] MEDS: ATORVASTATIN 10 MG TAB PO SCH (09:31)
[2022-02-09] MEDS: METOPROLOL SUCC 50MG EXT REL TAB PO SCH (09:32)
[2022-02-09] MEDS: FUROSEMIDE 40 MG/4 ML VIAL IV SCH (09:32)
[2022-02-09] MEDS: QUEtiapine FUMARATE 100 MG TABLET PO SCH (09:33)
[2022-02-09] MEDS: UMECLIDINIUM/VILANTEROL 62.5/25MCG 7 PUFFS/INHALER INH SCH (09:33)
--- NOTE | 2022-02-09 11:33 | Electrocardiogram Report ---
Test Reason : Blood Pressure : / mmHG Vent. Rate : 086 BPM Atrial Rate : 085 BPM P-R Int : 000 ms QRS Dur : 158 ms QT Int : 446 ms P-R-T Axes : 000 -38 040 degrees QTc Int : 533 ms Poor data quality, interpretation may be adversely affected Ventricular-paced rhythm Biventricular pacemaker detected Abnormal ECG When compared with ECG of 19-JAN-2022 17:56, Vent. rate has increased BY 2 BPM Confirmed by Guilherme Pelayo ([id number]) on 02/09/2022 11:32:43 AM Referred By: Confirmed By:Yash Pelayo
[2022-02-09] MEDS: BENZONATATE 100 MG CAPSULE PO SCH ×2 (14:22→21:48)
[2022-02-09] MEDS: DIGOXIN 0.125 MG TAB PO SCH (16:43)
[2022-02-09] MEDS: RIVAROXABAN 20 MG TAB PO SCH (17:36)
--- NOTE | 2022-02-09 17:37 | Hospitalist Progress Note ---
Date of Service February 09, 2022 Assessment & Plan (1) Acute and chronic respiratory failure with hypoxia: Plan: 61yo F w/ hx of HFrEF who presents with acute shortness of breath. Acute on chronic CHF exacerbation -BNP significantly elevated from priors, and CXR with pulmonary edema. Procal and respiratory viral panel both negative. - Lasix 60 mg IV given in ER; continue Lasix 80 mg IV daily (double home dosing) - Fluid restriction, Weights and I&Os, monitor Cr - BiPap PRN -> Improved on second review; now on home O2 - Echo: 35-40% EF, severe MR, gigantic RA - PT/OT, will likely need rehab High anion gap metabolic acidosis, improved AG is 21 from normal on previous discharge. ABG showed a mild metabolic acidosis. Lactate of 7.0. Possible infection but source is unclear and vitals improved without abx. No focal pneumonia on CXR. Other MUDPILES causes seem unlikely as patient reports no ingestions, glucose not substantially elevated, BUN only mildly elevated. - Blood cultures pending, UA noninfectious -repeat lactate 4, however, remaining elevated on next day repeat, cont. to monitor; suspect due to significant CHF exacerbation and decreased oxygen tissue perfusion Anemia Chronic anemia with hgb 9-10, but now with microcytosis. Iron studies from ~3 years ago indicated low iron. - anemia labs low - Can give IV iron if infection is ruled out. Nonischemic cardiomyopathy Echo earlier this month showed EF 30 - 35%. Repeat as above. - Continue home metoprolol - Plan as above HTN (hypertension) BP wnl - Continue home metoprolol Diabetes type 2, controlled A1c of 6.4% last admission. - Hold metformin - Sliding scale insulin Bipolar disorder Bipolar and anxiety. - Continue home hydroxyzine (lower dose, but increase frequency for hospital- related anxiety), continue home quetiapine - Continue home trazodone, but lower dose Atrial fibrillation Now with pacemaker. - Continue Xarelto - Continue beta-julee and digoxin DVT ppx: xarelto FEN/GI: fluid restriction 1.5L, HH/DM2/low Na Code Status: full Dispo: PCU tele (2) High anion gap metabolic acidosis: (3) Anemia: (4) Nonischemic cardiomyopathy: (5) HTN (hypertension): (6) Bipolar disorder: (7) Diabetes type 2, controlled: (8) Atrial fibrillation, permanent: Admission and Anticipated Discharge Date Admission Date: February 08, 2022 Supervising Physician Co-Signing Physician Notes Attending attestation Pt seen and examined in concert with Dr. Castaneda. In agreement with the documented findings as noted in the resident documentation with any exceptions or additions as noted here. Mild improvement in dyspnea on NC since admission without accompanying symptoms. VS, nursing notes reviewed. On examination, S1/S2 nl RRR no MCG. decreased in BL bases. Abd NT/ND BS+ve Acute on chronic HFrEF - continue furosemide and monitor I/O/weights and Cr. On home O2. Anion gap metabolic acidosis - improving, monitor Elevated lactate - Cx pending but no overt sign of infection Else see resident documentation as noted. Subjective Seen at bedside this morning. Still short of bed. Complains of room being either too hot or too cold. Says after she went home last hospitalization a few weeks ago was weak and got worse. Diet not good since cant cook due to weakness. Skipped lasix dose yesterday. Denies chest pain/pressure, N/V, headache, dysuria, abdominal pain. Review of Systems Review of Systems: All systems reviewed & are unremarkable except as noted in HPI & below Physical Exam Physical Exam: Constitutional: in no acute distress, pleasant. Vitals as above. Morbidly obese. HEENT: No scleral injection or discharge. Moist mucous membranes. Neck: Trachea midline. Lungs: diminished lung sounds. no wheezing, rales, crackles. Cardiac: RRR. No murmurs. 2+ pitting edema bilaterally. Abdomen: Soft, nondistended. Mildly tender upper quadrants.No guarding or rebound tenderness. No hepatosplenomegaly. MSK: No cyanosis or clubbing. Extremities motor strength 5/5. Skin: No rashes, warm, dry. Neurologic: Grossly intact cranial nerves Results & Data Results & Data ([facility]) Vital Signs (Past 12 Hours) Vital Signs Temp Pulse Pulse Resp BP Pulse Ox O2 Del Method 02/09/22 16:30 36.6 C 77 22 118/87 99 02/09/22 16:43 70 02/09/22 15:56 69 02/09/22 12:00 36.6 C 76 20 125/81 100 02/09/22 08:23 55 L 02/09/22 08:23 Nasal Cannula 02/09/22 07:49 36.4 C L 69 22 122/85 97 Nasal Cannula O2 Flow Rate 02/09/22 16:30 2 02/09/22 16:43 02/09/22 15:56 02/09/22 12:00 2 02/09/22 08:23 02/09/22 08:23 2 02/09/22 07:49 2 Laboratory Results 02/09/22 02/09/22 02/09/22 Range/Units 16:35 15:03 12:57 WBC RBC Hgb Hct MCV MCH MCHC RDW Std Deviation RDW Coeff of Logan Plt Count MPV Absolute Nucleated RBC Nucleated RBC % (auto) Platelet Estimate Sodium (136-145) mmol/L Potassium (3.5-5.1) mmol/L Chloride (98-107) mmol/L Carbon Dioxide (21-32) mmol/L Anion Gap (3-11) BUN (6-23) mg/dl Creatinine (0.6-1.2) mg/dl Est Cr Clr Drug Dosing ml/min Est GFR ( Amer) ml/min Est GFR (Non-Af Amer) ml/min BUN/Creatinine Ratio (10-20) Glucose (70-99(Fasting)) mg/dl POC Glucose 107 H (70-99) mg/dl Lactate 4.2 H* 4.2 H* (0.4-2.0) mmol/L Calcium (8.5-10.1) mg/dl Magnesium (1.7-2.4) mg/dl Iron (35-150) mcg/dl Unsaturated IBC (155-355) mcg/dl Transferrin (200-360) mg/dl Ferritin (8-388) ng/ml Troponin I High Sens (0-14) pg/ml Vitamin B12 (180-914) pg/ml Folate (>5.38) ng/ml Procalcitonin (0-0.5) ng/ml Urine Color Urine Appearance (Clear) Urine pH (4.5-7.5) Ur Specific [place] (1.000-1.030) Urine Protein (Negative) Urine Glucose (UA) (Negative) Urine Ketones (Negative) Urine Blood (Negative) Urine Nitrite (Negative) Urine Bilirubin (Negative) Urine Urobilinogen (Negative) Ur Leukocyte Esterase (Negative) Urine WBC (Auto) (0-5) /hpf Urine RBC (Auto) (0-4) /hpf U Hyaline Cast (Auto) (0-5) /lpf U Epithel Cells (Auto) (0-5) /lpf Urine Bacteria (Auto) (Negative) 02/09/22 02/09/22 02/09/22 Range/Units 12:54 10:59 07:22 WBC RBC Hgb Hct MCV MCH MCHC RDW Std Deviation RDW Coeff of Logan Plt Count MPV Absolute Nucleated RBC Nucleated RBC % (auto) Platelet Estimate Sodium (136-145) mmol/L Potassium (3.5-5.1) mmol/L Chloride (98-107) mmol/L Carbon Dioxide (21-32) mmol/L Anion Gap (3-11) BUN (6-23) mg/dl Creatinine (0.6-1.2) mg/dl Est Cr Clr Drug Dosing ml/min Est GFR ( Amer) ml/min Est GFR (Non-Af Amer) ml/min BUN/Creatinine Ratio (10-20) Glucose (70-99(Fasting)) mg/dl POC Glucose 120 H 98 (70-99) mg/dl Lactate (0.4-2.0) mmol/L Calcium (8.5-10.1) mg/dl Magnesium (1.7-2.4) mg/dl Iron (35-150) mcg/dl Unsaturated IBC (155-355) mcg/dl Transferrin (200-360) mg/dl Ferritin (8-388) ng/ml Troponin I High Sens 53.1 H* D (0-14) pg/ml Vitamin B12 (180-914) pg/ml Folate (>5.38) ng/ml Procalcitonin (0-0.5) ng/ml Urine Color Urine Appearance (Clear) Urine pH (4.5-7.5) Ur Specific [place] (1.000-1.030) Urine Protein (Negative) Urine Glucose (UA) (Negative) Urine Ketones (Negative) Urine Blood (Negative) Urine Nitrite (Negative) Urine Bilirubin (Negative) Urine Urobilinogen (Negative) Ur Leukocyte Esterase (Negative) Urine WBC (Auto) (0-5) /hpf Urine RBC (Auto) (0-4) /hpf U Hyaline Cast (Auto) (0-5) /lpf U Epithel Cells (Auto) (0-5) /lpf Urine Bacteria (Auto) (Negative) 02/09/22 02/09/22 02/09/22 Range/Units 07:19 05:37 05:37 WBC 11.65 H Cancelled RBC 4.24 Cancelled Hgb 10.3 L Cancelled Hct 33.1 L Cancelled MCV 78.1 L Cancelled MCH 24.3 L Cancelled MCHC 31.1 L Cancelled RDW Std Deviation 47.7 H Cancelled RDW Coeff of Logan 17.0 H Cancelled Plt Count 356 Cancelled MPV 9.9 Cancelled Absolute Nucleated RBC 0.14 H Cancelled Nucleated RBC % (auto) 1.2 Cancelled Platelet Estimate Cancelled Sodium (136-145) mmol/L Potassium (3.5-5.1) mmol/L Chloride (98-107) mmol/L Carbon Dioxide (21-32) mmol/L Anion Gap (3-11) BUN (6-23) mg/dl Creatinine (0.6-1.2) mg/dl Est Cr Clr Drug Dosing ml/min Est GFR ( Amer) ml/min Est GFR (Non-Af Amer) ml/min BUN/Creatinine Ratio (10-20) Glucose (70-99(Fasting)) mg/dl POC Glucose (70-99) mg/dl Lactate (0.4-2.0) mmol/L Calcium (8.5-10.1) mg/dl Magnesium (1.7-2.4) mg/dl Iron (35-150) mcg/dl Unsaturated IBC (155-355) mcg/dl Transferrin (200-360) mg/dl Ferritin (8-388) ng/ml Troponin I High Sens (0-14) pg/ml Vitamin B12 662 (180-914) pg/ml Folate > 22.30 (>5.38) ng/ml Procalcitonin (0-0.5) ng/ml Urine Color Urine Appearance (Clear) Urine pH (4.5-7.5) Ur Specific [place] (1.000-1.030) Urine Protein (Negative) Urine Glucose (UA) (Negative) Urine Ketones (Negative) Urine Blood (Negative) Urine Nitrite (Negative) Urine Bilirubin (Negative) Urine Urobilinogen (Negative) Ur Leukocyte Esterase (Negative) Urine WBC (Auto) (0-5) /hpf Urine RBC (Auto) (0-4) /hpf U Hyaline Cast (Auto) (0-5) /lpf U Epithel Cells (Auto) (0-5) /lpf Urine Bacteria (Auto) (Negative) 02/09/22 02/08/22 02/08/22 Range/Units 05:37 20:54 20:19 WBC RBC Hgb Hct MCV MCH MCHC RDW Std Deviation RDW Coeff of Logan Plt Count MPV Absolute Nucleated RBC Nucleated RBC % (auto) Platelet Estimate Sodium 134 L (136-145) mmol/L Potassium 4.1 (3.5-5.1) mmol/L Chloride 96 L (98-107) mmol/L Carbon Dioxide 24 (21-32) mmol/L Anion Gap 14 H (3-11) BUN 26 H (6-23) mg/dl Creatinine 1.06 (0.6-1.2) mg/dl Est Cr Clr Drug Dosing 76.9 ml/min Est GFR ( Amer) 66.1 ml/min Est GFR (Non-Af Amer) 57.0 ml/min BUN/Creatinine Ratio 24.5 H (10-20) Glucose 100 H (70-99(Fasting)) mg/dl POC Glucose 89 (70-99) mg/dl Lactate (0.4-2.0) mmol/L Calcium 9.2 (8.5-10.1) mg/dl Magnesium 1.8 (1.7-2.4) mg/dl Iron 16 L (35-150) mcg/dl Unsaturated IBC 444 H (155-355) mcg/dl Transferrin 388 H (200-360) mg/dl Ferritin 25.0 (8-388) ng/ml Troponin I High Sens 79.7 H* D (0-14) pg/ml Vitamin B12 (180-914) pg/ml Folate (>5.38) ng/ml Procalcitonin (0-0.5) ng/ml Urine Color Yellow Urine Appearance Clear (Clear) Urine pH 5.0 (4.5-7.5) Ur Specific [place] 1.008 (1.000-1.030) Urine Protein 1+ H (Negative) Urine Glucose (UA) Negative (Negative) Urine Ketones Negative (Negative) Urine Blood Negative (Negative) Urine Nitrite Negative (Negative) Urine Bilirubin Negative (Negative) Urine Urobilinogen Negative (Negative) Ur Leukocyte Esterase Trace H (Negative) Urine WBC (Auto) 1-5 (0-5) /hpf Urine RBC (Auto) 0-4 (0-4) /hpf U Hyaline Cast (Auto) 1-5 (0-5) /lpf U Epithel Cells (Auto) >30 H (0-5) /lpf Urine Bacteria (Auto) Negative (Negative) 02/08/22 02/08/22 02/08/22 Range/Units 19:50 18:00 18:00 WBC RBC Hgb Hct MCV MCH MCHC RDW Std Deviation RDW Coeff of Logan Plt Count MPV Absolute Nucleated RBC Nucleated RBC % (auto) Platelet Estimate Sodium (136-145) mmol/L Potassium (3.5-5.1) mmol/L Chloride (98-107) mmol/L Carbon Dioxide (21-32) mmol/L Anion Gap (3-11) BUN (6-23) mg/dl Creatinine (0.6-1.2) mg/dl Est Cr Clr Drug Dosing ml/min Est GFR ( Amer) ml/min Est GFR (Non-Af Amer) ml/min BUN/Creatinine Ratio (10-20) Glucose (70-99(Fasting)) mg/dl POC Glucose (70-99) mg/dl Lactate 4.9 H* 7.0 H* (0.4-2.0) mmol/L Calcium (8.5-10.1) mg/dl Magnesium (1.7-2.4) mg/dl Iron (35-150) mcg/dl Unsaturated IBC (155-355) mcg/dl Transferrin (200-360) mg/dl Ferritin (8-388) ng/ml Troponin I High Sens (0-14) pg/ml Vitamin B12 (180-914) pg/ml Folate (>5.38) ng/ml Procalcitonin 0.16 (0-0.5) ng/ml Urine Color Urine Appearance (Clear) Urine pH (4.5-7.5) Ur Specific [place] (1.000-1.030) Urine Protein (Negative) Urine Glucose (UA) (Negative) Urine Ketones (Negative) Urine Blood (Negative) Urine Nitrite (Negative) Urine Bilirubin (Negative) Urine Urobilinogen (Negative) Ur Leukocyte Esterase (Negative) Urine WBC (Auto) (0-5) /hpf Urine RBC (Auto) (0-4) /hpf U Hyaline Cast (Auto) (0-5) /lpf U Epithel Cells (Auto) (0-5) /lpf Urine Bacteria (Auto) (Negative) Resident Activity Tracking Resident Involvement: Resident Care Provided Care Provided: Adult Hospital Medicine (1) HTN (hypertension) Hypertension type: essential hypertension Qualified Code(s): I10 - Essential (primary) hypertension (2) Diabetes type 2, controlled Diabetes mellitus buttermaker insulin use: without buttermaker use Diabetes mellitus complication status: with unspecified complications Qualified Code(s): E11.8 - Type 2 diabetes mellitus with unspecified complications
[2022-02-09] MEDS: QUEtiapine FUMARATE 200 MG TAB PO SCH (21:39)
[2022-02-09] MEDS: traZODone HCL 100 MG TAB PO SCH (21:39)
[2022-02-10] MEDS: traMADol HCL 50 MG TABLET PO PRN (01:17)
[2022-02-10 06:17] LABS: Base Excess ABG 5.6 mEq/L (-9-1.8); HCO3 ABG 30 mmol/L (19-24); Oxygen Saturation ABG 99.8 % (90-95); PCO2 ABG 41 mmHg (35-46); PO2 ABG 124 mmHg (80-95); pH ABG 7.47 (7.35-7.45)
[2022-02-10 06:23] LABS: Basophils # (auto) 0.06 K/uL (0-0.2); Basophils % (auto) 0.6 %; Eosinophils # (auto) 0.16 K/uL (0-0.50); Eosinophils % (auto) 1.6 %; Hemoglobin 9.2 g/dl (12.0-16.0); Immature Granulocytes # (auto) 0.03 K/uL (0.00-0.02); Immature Granulocytes % (auto) 0.3 %; Lymphocytes # (auto) 2.43 K/uL (1.2-3.4); Lymphocytes % (auto) 24.9 %; Mean Corpuscular Hemoglobin 23.9 pg (25.0-34.0); Mean Corpuscular Hgb Conc 31.7 g/dL (32.0-36.0); Mean Corpuscular Volume 75.3 fL (80.0-100.0); Monocytes # (auto) 1.12 K/uL (0.24-0.82); Monocytes % (auto) 11.5 %; Neutrophils # (auto) 5.96 K/uL (1.4-6.5); Neutrophils % (auto) 61.1 %; Nucleated RBC # (auto) 0.14 K/uL (0-0); Nucleated RBC % (auto) 1.4 %; Platelet Count 348 K/uL (130-400); RDW Coefficient of Variation 16.7 % (11.5-14.5); RDW Standard Deviation 44.9 fL (36.4-46.3); Red Blood Count 3.85 M/uL (3.93-5.22); White Blood Count 9.76 K/ul (4.8-10.8)
[2022-02-10 06:28] LABS: Allen Test Pos (Pos)
[2022-02-10 06:38] LABS: Albumin Level 3.4 gm/dl (3.4-5.0); BUN Creatinine Ratio 28.3 (10-20); Bilirubin,Total 1.5 mg/dl (0.2-1.0); Calcium 9.1 mg/dl (8.5-10.1); Creatinine Clr Calc Pharmacy 82.3 ml/min; Est GFR (African American) 71.8 ml/min; Est GFR (Non-African American) 61.9 ml/min; Globulin 3.4 gm/dl (2.5-4.0); Potassium 3.7 mmol/L (3.5-5.1); Total Protein 6.8 gm/dl (6.0-8.3)
[2022-02-10] MEDS: UMECLIDINIUM/VILANTEROL 62.5/25MCG 7 PUFFS/INHALER INH SCH (09:15)
[2022-02-10] MEDS: FUROSEMIDE 40 MG/4 ML VIAL IV SCH (09:22)
[2022-02-10] MEDS: DOCUSATE SODIUM 100 MG CAP PO SCH ×2 (09:22→20:14)
[2022-02-10] MEDS: ATORVASTATIN 10 MG TAB PO SCH (09:22)
[2022-02-10] MEDS: QUEtiapine FUMARATE 100 MG TABLET PO SCH (09:22)
[2022-02-10] MEDS: METOPROLOL SUCC 50MG EXT REL TAB PO SCH (09:22)
[2022-02-10] MEDS: INSULIN ASPART PER UNIT SC SCH ×4 (09:24→20:13)
[2022-02-10] MEDS: BENZONATATE 100 MG CAPSULE PO SCH ×3 (09:24→20:19)
--- NOTE | 2022-02-10 16:02 | Hospitalist Progress Note ---
Date of Service February 10, 2022 Assessment & Plan (1) Acute and chronic respiratory failure with hypoxia: Plan: 61yo F w/ hx of HFrEF who presents with acute shortness of breath. Acute on chronic CHF exacerbation -BNP significantly elevated from priors, and CXR with pulmonary edema. Procal and respiratory viral panel both negative. - Lasix 60 mg IV given in ER; continue Lasix 80 mg IV daily (double home dosing) - Fluid restriction, Weights and I&Os, monitor Cr - BiPap PRN -> Improved on second review; now on home O2 - Echo: 35-40% EF, severe MR, gigantic RA - PT/OT: recommend rehab Anemia Chronic anemia with hgb 9-10, but now with microcytosis. Iron studies from ~3 years ago indicated low iron. - anemia labs low - Can give IV iron if infection is ruled out. High anion gap metabolic acidosis, resolved ON admission, AG is 21 from normal on previous discharge. ABG showed a mild metabolic acidosis. Lactate of 7.0. Possible infection but source is unclear and vitals improved without abx. No focal pneumonia on CXR. Other MUDPILES causes seem unlikely as patient reports no ingestions, glucose not substantially elevated, BUN only mildly elevated. - Blood cultures neg, UA noninfectious - lactate now wnl - suspect acidosis due to CHF exacerbation; cannot exclude metformin induced however less likely Nonischemic cardiomyopathy Echo earlier this month showed EF 30 - 35%. Repeat as above. - Continue home metoprolol - Plan as above HTN (hypertension) BP wnl - Continue home metoprolol Diabetes type 2, controlled A1c of 6.4% last admission. - Hold metformin - Sliding scale insulin Bipolar disorder Bipolar and anxiety. - Continue home hydroxyzine (lower dose, but increase frequency for hospital- related anxiety), continue home quetiapine - Continue home trazodone, but lower dose Atrial fibrillation Now with pacemaker. - Continue Xarelto - Continue beta-julee and digoxin DVT ppx: xarelto FEN/GI: fluid restriction 1.5L, HH/DM2/low Na Code Status: full Dispo: PCU tele (2) High anion gap metabolic acidosis: (3) Anemia: (4) Nonischemic cardiomyopathy: (5) HTN (hypertension): (6) Bipolar disorder: (7) Diabetes type 2, controlled: (8) Atrial fibrillation, permanent: Admission and Anticipated Discharge Date Admission Date: February 08, 2022 Supervising Physician Co-Signing Physician Notes Attending attestation Pt seen and examined in concert with Dr. Castaneda. In agreement with the documented findings as noted in the resident documentation with any exceptions or additions as noted here. Subjectively approaching baseline in shortness of breath and swelling, though still with overall weakness. VS, nursing notes reviewed. On examination, S1/S2 nl RRR no MCG. 2+ pitting edema of the b/l LE somewhat improved. decreased in BL bases. Abd NT/ND BS+ve Acute on chronic HFrEF - improving with furosemide. Continue and monitor I/O/weights and Cr. On home O2. Deconditioning - PT/OT consultation. Placement with difficulties as patient wishes for [facility] and insurance is denied. Prior auth attempted x2, will retry tomorrow. Anion gap metabolic acidosis - resolved Elevated lactate - resolved, BCx NGTD Else see resident documentation as noted. Total attending physician time spent with this patient's care: 60 minutes. Subjective Seen at bedside this morning. Feels better than yesterday. Less SOB. Denies chest pain/pressure, N/V, headache, dysuria, abdominal pain. Review of Systems Review of Systems: All systems reviewed & are unremarkable except as noted in HPI & below Physical Exam Physical Exam: Constitutional: in no acute distress, pleasant. Vitals as above. Morbidly obese. HEENT: No scleral injection or discharge. Moist mucous membranes. Neck: Trachea midline. Lungs: diminished lung sounds, improving. no wheezing, rales, crackles. Cardiac: RRR. No murmurs. 2+ pitting edema bilaterally. Abdomen: Soft, nondistended. Mildly tender upper quadrants.No guarding or rebound tenderness. No hepatosplenomegaly. MSK: No cyanosis or clubbing. Skin: No rashes, warm, dry. Neurologic: Grossly intact cranial nerves Results & Data Results & Data ([facility]) Vital Signs (Past 12 Hours) Vital Signs Temp Pulse Pulse Resp BP Pulse Ox O2 Del Method 02/10/22 15:16 36.6 C 73 20 108/76 99 Nasal Cannula 02/10/22 11:34 99 02/10/22 11:23 36.5 C 63 20 109/78 99 Nasal Cannula 02/10/22 07:30 64 09/07/22 07:30 Nasal Cannula 02/10/22 07:24 36.5 C 63 17 104/69 99 Nasal Cannula O2 Flow Rate 02/10/22 15:16 2 02/10/22 11:34 02/10/22 11:23 2 02/10/22 07:30 02/10/22 07:30 2 02/10/22 07:24 2 Laboratory Results 02/10/22 02/10/22 02/10/22 Range/Units 16:20 11:26 07:23 WBC (4.8-10.8) K/ul RBC (3.93-5.22) M/uL Hgb (12.0-16.0) g/dl Hct (34.1-44.9) % MCV (80.0-100.0) fL MCH (25.0-34.0) pg MCHC (32.0-36.0) g/dL RDW Std Deviation (36.4-46.3) fL RDW Coeff of Logan (11.5-14.5) % Plt Count (130-400) K/uL MPV (9.4-12.3) fL Immature Gran % (Auto) % Neut % (Auto) % Lymph % (Auto) % [place] % (Auto) % Eos % (Auto) % Baso % (Auto) % Neut # (Auto) (1.4-6.5) K/uL Lymph # (Auto) (1.2-3.4) K/uL [place] # (Auto) (0.24-0.82) K/uL Eos # (Auto) (0-0.50) K/uL Baso # (Auto) (0-0.2) K/uL Immature Gran # (Auto) (0.00-0.02) K/uL Absolute Nucleated RBC (0-0) K/uL Nucleated RBC % (auto) % ABG pH (7.35-7.45) ABG pCO2 (35-46) mmHg ABG pO2 (80-95) mmHg ABG HCO3 (19-24) mmol/L ABG O2 Saturation (90-95) % ABG Base Excess (-9-1.8) mEq/L John Test (Pos) Oxygen Given Sodium (136-145) mmol/L Potassium (3.5-5.1) mmol/L Chloride (98-107) mmol/L Carbon Dioxide (21-32) mmol/L Anion Gap (3-11) BUN (6-23) mg/dl Creatinine (0.6-1.2) mg/dl Est Cr Clr Drug Dosing ml/min Est GFR ( Amer) ml/min Est GFR (Non-Af Amer) ml/min BUN/Creatinine Ratio (10-20) Glucose (70-99(Fasting)) mg/dl POC Glucose 94 91 89 (70-99) mg/dl Lactate (0.4-2.0) mmol/L Calcium (8.5-10.1) mg/dl Total Bilirubin (0.2-1.0) mg/dl AST (13-39) U/L ALT (7-52) U/L Alkaline Phosphatase (34-104) U/L Lactate Dehydrogenase (86-244) U/L Total Protein (6.0-8.3) gm/dl Albumin (3.4-5.0) gm/dl Globulin (2.5-4.0) gm/dl Albumin/Globulin Ratio (0.9-2) 02/10/22 02/10/22 02/10/22 Range/Units 06:52 05:49 05:49 WBC (4.8-10.8) K/ul RBC (3.93-5.22) M/uL Hgb (12.0-16.0) g/dl Hct (34.1-44.9) % MCV (80.0-100.0) fL MCH (25.0-34.0) pg MCHC (32.0-36.0) g/dL RDW Std Deviation (36.4-46.3) fL RDW Coeff of Logan (11.5-14.5) % Plt Count (130-400) K/uL MPV (9.4-12.3) fL Immature Gran % (Auto) % Neut % (Auto) % Lymph % (Auto) % [place] % (Auto) % Eos % (Auto) % Baso % (Auto) % Neut # (Auto) (1.4-6.5) K/uL Lymph # (Auto) (1.2-3.4) K/uL [place] # (Auto) (0.24-0.82) K/uL Eos # (Auto) (0-0.50) K/uL Baso # (Auto) (0-0.2) K/uL Immature Gran # (Auto) (0.00-0.02) K/uL Absolute Nucleated RBC (0-0) K/uL Nucleated RBC % (auto) % ABG pH 7.47 H (7.35-7.45) ABG pCO2 41 (35-46) mmHg ABG pO2 124 H (80-95) mmHg ABG HCO3 30 H (19-24) mmol/L ABG O2 Saturation 99.8 H (90-95) % ABG Base Excess 5.6 H (-9-1.8) mEq/L John Test Pos (Pos) Oxygen Given 3L Sodium (136-145) mmol/L Potassium (3.5-5.1) mmol/L Chloride (98-107) mmol/L Carbon Dioxide (21-32) mmol/L Anion Gap (3-11) BUN (6-23) mg/dl Creatinine (0.6-1.2) mg/dl Est Cr Clr Drug Dosing ml/min Est GFR ( Amer) ml/min Est GFR (Non-Af Amer) ml/min BUN/Creatinine Ratio (10-20) Glucose (70-99(Fasting)) mg/dl POC Glucose (70-99) mg/dl Lactate 1.7 (0.4-2.0) mmol/L Calcium (8.5-10.1) mg/dl Total Bilirubin (0.2-1.0) mg/dl AST (13-39) U/L ALT (7-52) U/L Alkaline Phosphatase (34-104) U/L Lactate Dehydrogenase 234 (86-244) U/L Total Protein (6.0-8.3) gm/dl Albumin (3.4-5.0) gm/dl Globulin (2.5-4.0) gm/dl Albumin/Globulin Ratio (0.9-2) 02/10/22 02/10/22 Range/Units 05:49 05:49 WBC 9.76 (4.8-10.8) K/ul RBC 3.85 L (3.93-5.22) M/uL Hgb 9.2 L (12.0-16.0) g/dl Hct 29.0 L (34.1-44.9) % MCV 75.3 L (80.0-100.0) fL MCH 23.9 L (25.0-34.0) pg MCHC 31.7 L (32.0-36.0) g/dL RDW Std Deviation 44.9 (36.4-46.3) fL RDW Coeff of Logan 16.7 H (11.5-14.5) % Plt Count 348 (130-400) K/uL MPV 10.0 (9.4-12.3) fL Immature Gran % (Auto) 0.3 % Neut % (Auto) 61.1 % Lymph % (Auto) 24.9 % [place] % (Auto) 11.5 % Eos % (Auto) 1.6 % Baso % (Auto) 0.6 % Neut # (Auto) 5.96 (1.4-6.5) K/uL Lymph # (Auto) 2.43 (1.2-3.4) K/uL [place] # (Auto) 1.12 H (0.24-0.82) K/uL Eos # (Auto) 0.16 (0-0.50) K/uL Baso # (Auto) 0.06 (0-0.2) K/uL Immature Gran # (Auto) 0.03 H (0.00-0.02) K/uL Absolute Nucleated RBC 0.14 H (0-0) K/uL Nucleated RBC % (auto) 1.4 % ABG pH (7.35-7.45) ABG pCO2 (35-46) mmHg ABG pO2 (80-95) mmHg ABG HCO3 (19-24) mmol/L ABG O2 Saturation (90-95) % ABG Base Excess (-9-1.8) mEq/L John Test (Pos) Oxygen Given Sodium 133 L (136-145) mmol/L Potassium 3.7 (3.5-5.1) mmol/L Chloride 95 L (98-107) mmol/L Carbon Dioxide 28 (21-32) mmol/L Anion Gap 10 (3-11) BUN 28 H (6-23) mg/dl Creatinine 0.99 (0.6-1.2) mg/dl Est Cr Clr Drug Dosing 82.3 ml/min Est GFR ( Amer) 71.8 ml/min Est GFR (Non-Af Amer) 61.9 ml/min BUN/Creatinine Ratio 28.3 H (10-20) Glucose 94 (70-99(Fasting)) mg/dl POC Glucose (70-99) mg/dl Lactate (0.4-2.0) mmol/L Calcium 9.1 (8.5-10.1) mg/dl Total Bilirubin 1.5 H (0.2-1.0) mg/dl AST 37 (13-39) U/L ALT 25 (7-52) U/L Alkaline Phosphatase 175 H (34-104) U/L Lactate Dehydrogenase (86-244) U/L Total Protein 6.8 (6.0-8.3) gm/dl Albumin 3.4 (3.4-5.0) gm/dl Globulin 3.4 (2.5-4.0) gm/dl Albumin/Globulin Ratio 1.0 (0.9-2) Resident Activity Tracking Resident Involvement: Resident Care Provided Care Provided: Adult Hospital Medicine (1) Diabetes type 2, controlled Diabetes mellitus complication status: with unspecified complications Diabetes mellitus residential insulin use: 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
[2022-02-10] MEDS: RIVAROXABAN 20 MG TAB PO SCH (16:18)
[2022-02-10] MEDS: DIGOXIN 0.125 MG TAB PO SCH (16:19)
[2022-02-10] MEDS: hydrOXYzine HCl 25 MG TAB PO PRN (17:19)
[2022-02-10] MEDS: QUEtiapine FUMARATE 200 MG TAB PO SCH (20:14)
[2022-02-10] MEDS: traZODone HCL 100 MG TAB PO SCH (20:14)
[2022-02-11 06:07] LABS: Basophils # (auto) 0.05 K/uL (0-0.2); Basophils % (auto) 0.6 %; Eosinophils % (auto) 2.2 %; Hematocrit (blood only) 29.9 % (34.1-44.9); Hemoglobin 9.4 g/dl (12.0-16.0); Immature Granulocytes # (auto) 0.02 K/uL (0.00-0.02); Immature Granulocytes % (auto) 0.2 %; Lymphocytes # (auto) 2.06 K/uL (1.2-3.4); Lymphocytes % (auto) 22.9 %; Mean Corpuscular Hemoglobin 23.8 pg (25.0-34.0); Mean Corpuscular Hgb Conc 31.4 g/dL (32.0-36.0); Mean Corpuscular Volume 75.7 fL (80.0-100.0); Mean Platelet Volume 9.7 fL (9.4-12.3); Monocytes # (auto) 1.12 K/uL (0.24-0.82); Monocytes % (auto) 12.4 %; Neutrophils # (auto) 5.56 K/uL (1.4-6.5); Neutrophils % (auto) 61.7 %; Nucleated RBC # (auto) 0.09 K/uL (0-0); Platelet Count 356 K/uL (130-400); RDW Coefficient of Variation 17.3 % (11.5-14.5); Red Blood Count 3.95 M/uL (3.93-5.22); White Blood Count 9.01 K/ul (4.8-10.8)
[2022-02-11 06:28] LABS: Albumin Level 3.5 gm/dl (3.4-5.0); BUN Creatinine Ratio 25.7 (10-20); Bilirubin,Total 1.3 mg/dl (0.2-1.0); Calcium 9.3 mg/dl (8.5-10.1); Creatinine Clr Calc Pharmacy 80.7 ml/min; Est GFR (African American) 70.1 ml/min; Est GFR (Non-African American) 60.5 ml/min; Globulin 3.4 gm/dl (2.5-4.0); Potassium 3.7 mmol/L (3.5-5.1); Total Protein 6.9 gm/dl (6.0-8.3)
--- NOTE | 2022-02-11 06:51 | Hospitalist Progress Note ---
Date of Service February 11, 2022 Assessment & Plan (1) Acute and chronic respiratory failure with hypoxia: Plan: 61yo F w/ hx of HFrEF who presents with acute shortness of breath. Acute on chronic CHF exacerbation, improving - BNP significantly elevated from priors, and CXR with pulmonary edema. Procal and respiratory viral panel both negative. - Lasix 60 mg IV given in ER; continue Lasix 80 mg IV daily (double home dosing), will likely return to home dose on discharge - Fluid restriction, Weights and I&Os, monitor Cr - initially on BiPap, now on home O2 - Echo: 35-40% EF, severe MR, gigantic RA - PT/OT: recommend rehab - Placement Pending Anemia Chronic anemia with hgb 9-10, but now with microcytosis. Iron studies from ~3 years ago indicated low iron. - anemia labs low - low concern for infection, started po iron qOD High anion gap metabolic acidosis, resolved ON admission, AG is 21 from normal on previous discharge. ABG showed a mild metabolic acidosis. Lactate of 7.0. Possible infection but source is unclear and vitals improved without abx. No focal pneumonia on CXR. Other MUDPILES causes seem unlikely as patient reports no ingestions, glucose not substantially elevated, BUN only mildly elevated. - Blood cultures neg, UA noninfectious - lactate now wnl - suspect acidosis due to CHF exacerbation; cannot exclude metformin induced however less likely Nonischemic cardiomyopathy Echo earlier this month showed EF 30 - 35%. Repeat as above. - Continue home metoprolol - Plan as above HTN (hypertension) BP wnl - Continue home metoprolol Diabetes type 2, controlled A1c of 6.4% last admission. - Hold metformin - Sliding scale insulin Bipolar disorder Bipolar and anxiety. - Continue home hydroxyzine (lower dose, but increase frequency for hospital- related anxiety), continue home quetiapine - Continue home trazodone, but lower dose Atrial fibrillation Now with pacemaker. - Continue Xarelto - Continue beta-julee and digoxin DVT ppx: xarelto FEN/GI: fluid restriction 1.5L, HH/DM2/low Na Code Status: full Dispo: downgraded to med surg (2) High anion gap metabolic acidosis: (3) Anemia: (4) Nonischemic cardiomyopathy: (5) HTN (hypertension): (6) Bipolar disorder: (7) Diabetes type 2, controlled: (8) Atrial fibrillation, permanent: Admission and Anticipated Discharge Date Admission Date: February 08, 2022 Supervising Physician Co-Signing Physician Notes Attending attestation Pt seen and examined in concert with Dr. Castaneda. In agreement with the documented findings as noted in the resident documentation with any exceptions or additions as noted here. Complaint of swelling this AM which is ongoing but required some discussion re: cause and intervention. Overall weakness ongoing and understands the benefits of rehab services regardless of location. VS, nursing notes reviewed. On examination, S1/S2 nl RRR no MCG. 2+ pitting edema of the b/l LE. decreased in BL bases. Abd NT/ND BS+ve Acute on chronic HFrEF - continue furosemide. Continue and monitor I/O/weights and Cr. On home O2 of 2LNC Deconditioning - PT/OT consultation - placement for rehab with educations s/p prior auth attempted. Else see resident documentation as noted. Subjective Seen at bedside this morning. No overnight events. Feeling better today, more awake. Still has mild LE edema R>L. Denies chest pain/pressure, N/V, headache, dysuria, abdominal pain, sob. Review of Systems Review of Systems: All systems reviewed & are unremarkable except as noted in HPI & below Physical Exam Physical Exam: Constitutional: in no acute distress, pleasant. Vitals as above. Morbidly obese. HEENT: No scleral injection or discharge. Moist mucous membranes. Neck: Trachea midline. Lungs: diminished lung sounds, improving. no wheezing, rales, crackles. Cardiac: RRR. No murmurs. 2+ pitting edema R>L without erythema/tenderness. Abdomen: Soft, nondistended, nontender.No guarding or rebound tenderness. No hepatosplenomegaly. MSK: No cyanosis or clubbing. Skin: No rashes, warm, dry. Neurologic: Grossly intact cranial nerves Results & Data Results & Data ([facility]) Vital Signs (Past 12 Hours) Vital Signs Temp Pulse Resp BP Pulse Ox O2 Del Method O2 Flow Rate 02/11/22 03:00 36.6 C 63 20 108/64 100 Nasal Cannula 02/10/22 23:00 36.6 C 65 18 120/78 94 Nasal Cannula 2 02/10/22 20:24 Nasal Cannula 2.5 02/10/22 19:00 36.6 C 69 20 131/81 99 Nasal Cannula 2 Laboratory Results 02/11/22 02/11/22 02/10/22 Range/Units 05:32 05:32 20:02 WBC 9.01 (4.8-10.8) K/ul RBC 3.95 (3.93-5.22) M/uL Hgb 9.4 L (12.0-16.0) g/dl Hct 29.9 L (34.1-44.9) % MCV 75.7 L (80.0-100.0) fL MCH 23.8 L (25.0-34.0) pg MCHC 31.4 L (32.0-36.0) g/dL RDW Std Deviation 47.0 H (36.4-46.3) fL RDW Coeff of Logan 17.3 H (11.5-14.5) % Plt Count 356 (130-400) K/uL MPV 9.7 (9.4-12.3) fL Immature Gran % (Auto) 0.2 % Neut % (Auto) 61.7 % Lymph % (Auto) 22.9 % [place] % (Auto) 12.4 % Eos % (Auto) 2.2 % Baso % (Auto) 0.6 % Neut # (Auto) 5.56 (1.4-6.5) K/uL Lymph # (Auto) 2.06 (1.2-3.4) K/uL [place] # (Auto) 1.12 H (0.24-0.82) K/uL Eos # (Auto) 0.20 (0-0.50) K/uL Baso # (Auto) 0.05 (0-0.2) K/uL Immature Gran # (Auto) 0.02 (0.00-0.02) K/uL Absolute Nucleated RBC 0.09 H (0-0) K/uL Nucleated RBC % (auto) 1.0 % Sodium 136 (136-145) mmol/L Potassium 3.7 (3.5-5.1) mmol/L Chloride 95 L (98-107) mmol/L Carbon Dioxide 32 (21-32) mmol/L Anion Gap 9 (3-11) BUN 26 H (6-23) mg/dl Creatinine 1.01 (0.6-1.2) mg/dl Est Cr Clr Drug Dosing 80.7 ml/min Est GFR ( Amer) 70.1 ml/min Est GFR (Non-Af Amer) 60.5 ml/min BUN/Creatinine Ratio 25.7 H (10-20) Glucose 79 (70-99(Fasting)) mg/dl POC Glucose 114 H (70-99) mg/dl Calcium 9.3 (8.5-10.1) mg/dl Total Bilirubin 1.3 H (0.2-1.0) mg/dl AST 39 (13-39) U/L ALT 28 (7-52) U/L Alkaline Phosphatase 198 H (34-104) U/L Total Protein 6.9 (6.0-8.3) gm/dl Albumin 3.5 (3.4-5.0) gm/dl Globulin 3.4 (2.5-4.0) gm/dl Albumin/Globulin Ratio 1.0 (0.9-2) 02/10/22 Range/Units 16:20 WBC (4.8-10.8) K/ul RBC (3.93-5.22) M/uL Hgb (12.0-16.0) g/dl Hct (34.1-44.9) % MCV (80.0-100.0) fL MCH (25.0-34.0) pg MCHC (32.0-36.0) g/dL RDW Std Deviation (36.4-46.3) fL RDW Coeff of Logan (11.5-14.5) % Plt Count (130-400) K/uL MPV (9.4-12.3) fL Immature Gran % (Auto) % Neut % (Auto) % Lymph % (Auto) % [place] % (Auto) % Eos % (Auto) % Baso % (Auto) % Neut # (Auto) (1.4-6.5) K/uL Lymph # (Auto) (1.2-3.4) K/uL [place] # (Auto) (0.24-0.82) K/uL Eos # (Auto) (0-0.50) K/uL Baso # (Auto) (0-0.2) K/uL Immature Gran # (Auto) (0.00-0.02) K/uL Absolute Nucleated RBC (0-0) K/uL Nucleated RBC % (auto) % Sodium (136-145) mmol/L Potassium (3.5-5.1) mmol/L Chloride (98-107) mmol/L Carbon Dioxide (21-32) mmol/L Anion Gap (3-11) BUN (6-23) mg/dl Creatinine (0.6-1.2) mg/dl Est Cr Clr Drug Dosing ml/min Est GFR ( Amer) ml/min Est GFR (Non-Af Amer) ml/min BUN/Creatinine Ratio (10-20) Glucose (70-99(Fasting)) mg/dl POC Glucose 94 (70-99) mg/dl Calcium (8.5-10.1) mg/dl Total Bilirubin (0.2-1.0) mg/dl AST (13-39) U/L ALT (7-52) U/L Alkaline Phosphatase (34-104) U/L Total Protein (6.0-8.3) gm/dl Albumin (3.4-5.0) gm/dl Globulin (2.5-4.0) gm/dl Albumin/Globulin Ratio (0.9-2) Resident Activity Tracking Resident Involvement: Resident Care Provided Care Provided: Adult Hospital Medicine (1) Diabetes type 2, controlled Diabetes mellitus complication status: with unspecified complications Diabetes mellitus intermediate insulin use: without intermediate use Qualified Code(s): E11.8 - Type 2 diabetes mellitus with unspecified complications (2) HTN (hypertension) Hypertension type: essential hypertension Qualified Code(s): I10 - Essential (primary) hypertension
[2022-02-11] MEDS: INSULIN ASPART PER UNIT SC SCH ×4 (07:31→20:37)
[2022-02-11] MEDS: QUEtiapine FUMARATE 100 MG TABLET PO SCH (07:32)
[2022-02-11] MEDS: UMECLIDINIUM/VILANTEROL 62.5/25MCG 7 PUFFS/INHALER INH SCH (07:32)
[2022-02-11] MEDS: ATORVASTATIN 10 MG TAB PO SCH (07:32)
[2022-02-11] MEDS: DOCUSATE SODIUM 100 MG CAP PO SCH ×2 (07:32→20:55)
[2022-02-11] MEDS: METOPROLOL SUCC 50MG EXT REL TAB PO SCH (07:32)
[2022-02-11] MEDS: BENZONATATE 100 MG CAPSULE PO SCH ×3 (07:34→20:54)
[2022-02-11] MEDS: FERROUS SULFATE 325 MG TAB PO SCH (11:03)
[2022-02-11] MEDS: FUROSEMIDE 40 MG/4 ML VIAL IV SCH (11:04)
[2022-02-11] MEDS: traMADol HCL 50 MG TABLET PO PRN ×2 (14:13→20:55)
[2022-02-11] MEDS: RIVAROXABAN 20 MG TAB PO SCH (16:23)
[2022-02-11] MEDS: DIGOXIN 0.125 MG TAB PO SCH (16:23)
[2022-02-11] MEDS: traZODone HCL 100 MG TAB PO SCH (20:55)
[2022-02-11] MEDS: QUEtiapine FUMARATE 200 MG TAB PO SCH (20:55)
--- NOTE | 2022-02-12 06:46 | Hospitalist Progress Note ---
Date of Service February 12, 2022 Assessment & Plan (1) Acute and chronic respiratory failure with hypoxia: Plan: 61yo F w/ hx of HFrEF who presents with acute shortness of breath. Acute on chronic CHF exacerbation, improving - BNP significantly elevated from priors, and CXR with pulmonary edema. Procal and respiratory viral panel both negative. - Lasix 60 mg IV given in ER; continue Lasix 80 mg IV daily (double home dosing), will likely return to home dose on discharge - Fluid restriction, Weights and I&Os, monitor Cr - initially on BiPap, now on home O2 (2-3L) - Echo: 35-40% EF, severe MR, gigantic RA - follows with heart clinic - PT/OT: recommend rehab - Placement Pending Anemia Chronic anemia with hgb 9-10, but now with microcytosis. Iron studies from ~3 years ago indicated low iron. - anemia labs low - low concern for infection, cont. po iron qOD High anion gap metabolic acidosis, resolved ON admission, AG is 21 from normal on previous discharge. ABG showed a mild metabolic acidosis. Lactate of 7.0. Possible infection but source is unclear and vitals improved without abx. No focal pneumonia on CXR. Other MUDPILES causes seem unlikely as patient reports no ingestions, glucose not substantially elevated, BUN only mildly elevated. - Blood cultures neg, UA noninfectious - lactate now wnl - suspect acidosis due to CHF exacerbation; cannot exclude metformin induced however less likely Nonischemic cardiomyopathy Echo earlier this month showed EF 30 - 35%. Repeat as above. - Continue home metoprolol - Plan as above HTN (hypertension) BP wnl - Continue home metoprolol Diabetes type 2, controlled A1c of 6.4% last admission. - Hold metformin - Sliding scale insulin Bipolar disorder Bipolar and anxiety. - Continue home hydroxyzine (lower dose, but increase frequency for hospital- related anxiety), continue home quetiapine - Continue home trazodone, but lower dose Atrial fibrillation Now with pacemaker. - Continue Xarelto - Continue beta-julee and digoxin DVT ppx: xarelto FEN/GI: fluid restriction 1.5L, HH/DM2/low Na Code Status: full Dispo: med surg (2) High anion gap metabolic acidosis: (3) Anemia: (4) Nonischemic cardiomyopathy: (5) HTN (hypertension): (6) Bipolar disorder: (7) Diabetes type 2, controlled: (8) Atrial fibrillation, permanent: Admission and Anticipated Discharge Date Admission Date: February 08, 2022 Supervising Physician Co-Signing Physician Notes I also saw the patient confirmed eugene portions of the history and physical examination. I agree with the impression and plan as noted in the resident documentation. Dr. Castaneda and I both saw the patient around 330 this afternoon. The patient was without complaints. She stated that she was feeling better because she was sleeping better she thinks she is sleeping better because she is able to breathe better. Exam 128/84, 65, 17, 36.6, 99% on nasal cannula at 1 L/min Pleasant. No distress appreciated. Respirations nonlabored. Decreased in the bases with slight crackles. Heart regular Extremities with 12+ pitting edema bilaterally Data Hemoglobin 10.4, platelet count 350 Sodium 135, BUN 28, creatinine 1.05 Total bilirubin 1.3, alkaline phosphatase 206 Impression and plan Acute on chronic HFrEF - continue furosemide. Continue and monitor I/O/weights and Cr. On home O2 of 2LNC Deconditioning - PT/OT consultation - placement for rehab with educations s/p prior authorization attempted. Additional per resident note. Subjective Seen at bedside this morning. No overnight events. Feeling better than yesterday. Not much of an appetite, would like a boost. Denies chest pain/pressure, N/V, headache, dysuria, abdominal pain, sob. Review of Systems Review of Systems: All systems reviewed & are unremarkable except as noted in HPI & below Physical Exam Physical Exam: Constitutional: in no acute distress, pleasant. Vitals as above. Morbidly obese. HEENT: No scleral injection or discharge.Moist mucous membranes. Neck: Trachea midline. Lungs: diminished lung sounds, improving. no wheezing, rales, crackles. Cardiac: RRR. No murmurs. 2+ pitting edema R>L without erythema/tenderness. Abdomen: Soft, nondistended, nontender.No guarding or rebound tenderness. No hepatosplenomegaly. MSK: No cyanosis or clubbing. Skin: No rashes, warm, dry. Neurologic: Grossly intact cranial nerves Results & Data Results & Data ([facility]) Vital Signs (Past 12 Hours) Vital Signs Temp Pulse Resp BP Pulse Ox O2 Del Method O2 Flow Rate 02/12/22 00:00 36.8 C 63 20 129/71 100 Nasal Cannula 2.5 02/11/22 20:00 Nasal Cannula 2 Laboratory Results 02/12/22 02/12/22 02/12/22 Range/Units 07:55 07:55 07:55 WBC 8.31 (4.8-10.8) K/ul RBC 4.30 (3.93-5.22) M/uL Hgb 10.4 L (12.0-16.0) g/dl Hct 32.8 L (34.1-44.9) % MCV 76.3 L (80.0-100.0) fL MCH 24.2 L (25.0-34.0) pg MCHC 31.7 L (32.0-36.0) g/dL RDW Std Deviation 47.5 H (36.4-46.3) fL RDW Coeff of Logan 17.6 H (11.5-14.5) % Plt Count 350 (130-400) K/uL MPV 9.5 (9.4-12.3) fL Immature Gran % (Auto) 0.2 % Neut % (Auto) 63.5 % Lymph % (Auto) 20.3 % Brooks % (Auto) 13.5 % Eos % (Auto) 1.7 % Baso % (Auto) 0.8 % Neut # (Auto) 5.27 (1.4-6.5) K/uL Lymph # (Auto) 1.69 (1.2-3.4) K/uL Brooks # (Auto) 1.12 H (0.24-0.82) K/uL Eos # (Auto) 0.14 (0-0.50) K/uL Baso # (Auto) 0.07 (0-0.2) K/uL Immature Gran # (Auto) 0.02 (0.00-0.02) K/uL Absolute Nucleated RBC 0.12 H (0-0) K/uL Nucleated RBC % (auto) 1.4 % Sodium 135 L (136-145) mmol/L Potassium 3.8 (3.5-5.1) mmol/L Chloride 95 L (98-107) mmol/L Carbon Dioxide 32 (21-32) mmol/L Anion Gap 8 (3-11) BUN 28 H (6-23) mg/dl Creatinine 1.05 (0.6-1.2) mg/dl Est Cr Clr Drug Dosing 77.6 ml/min Est GFR ( Amer) 66.9 ml/min Est GFR (Non-Af Amer) 57.7 ml/min BUN/Creatinine Ratio 26.7 H (10-20) Glucose 82 (70-99(Fasting)) mg/dl POC Glucose (70-99) mg/dl Calcium 9.3 (8.5-10.1) mg/dl Magnesium Cancelled 2.1 (1.7-2.4) mg/dl Total Bilirubin 1.3 H (0.2-1.0) mg/dl AST 39 (13-39) U/L ALT 32 (7-52) U/L Alkaline Phosphatase 206 H (34-104) U/L Total Protein 7.1 (6.0-8.3) gm/dl Albumin 3.6 (3.4-5.0) gm/dl Globulin 3.5 (2.5-4.0) gm/dl Albumin/Globulin Ratio 1.0 (0.9-2) 02/11/22 Range/Units 20:17 WBC (4.8-10.8) K/ul RBC (3.93-5.22) M/uL Hgb (12.0-16.0) g/dl Hct (34.1-44.9) % MCV (80.0-100.0) fL MCH (25.0-34.0) pg MCHC (32.0-36.0) g/dL RDW Std Deviation (36.4-46.3) fL RDW Coeff of Logan (11.5-14.5) % Plt Count (130-400) K/uL MPV (9.4-12.3) fL Immature Gran % (Auto) % Neut % (Auto) % Lymph % (Auto) % Brooks % (Auto) % Eos % (Auto) % Baso % (Auto) % Neut # (Auto) (1.4-6.5) K/uL Lymph # (Auto) (1.2-3.4) K/uL Brooks # (Auto) (0.24-0.82) K/uL Eos # (Auto) (0-0.50) K/uL Baso # (Auto) (0-0.2) K/uL Immature Gran # (Auto) (0.00-0.02) K/uL Absolute Nucleated RBC (0-0) K/uL Nucleated RBC % (auto) % Sodium (136-145) mmol/L Potassium (3.5-5.1) mmol/L Chloride (98-107) mmol/L Carbon Dioxide (21-32) mmol/L Anion Gap (3-11) BUN (6-23) mg/dl Creatinine (0.6-1.2) mg/dl Est Cr Clr Drug Dosing ml/min Est GFR ( Amer) ml/min Est GFR (Non-Af Amer) ml/min BUN/Creatinine Ratio (10-20) Glucose (70-99(Fasting)) mg/dl POC Glucose 101 H (70-99) mg/dl Calcium (8.5-10.1) mg/dl Magnesium (1.7-2.4) mg/dl Total Bilirubin (0.2-1.0) mg/dl AST (13-39) U/L ALT (7-52) U/L Alkaline Phosphatase (34-104) U/L Total Protein (6.0-8.3) gm/dl Albumin (3.4-5.0) gm/dl Globulin (2.5-4.0) gm/dl Albumin/Globulin Ratio (0.9-2) Resident Activity Tracking Resident Involvement: Resident Care Provided Care Provided: Adult Hospital Medicine (1) Diabetes type 2, controlled Diabetes mellitus complication status: with unspecified complications Diabetes mellitus penitentiary insulin use: without equipment operator intermodal yard use Qualified Code(s): E11.8 - Type 2 diabetes mellitus with unspecified complications (2) HTN (hypertension) Hypertension type: essential hypertension Qualified Code(s): I10 - Essential (primary) hypertension
[2022-02-12 08:19] LABS: Basophils # (auto) 0.07 K/uL (0-0.2); Basophils % (auto) 0.8 %; Eosinophils # (auto) 0.14 K/uL (0-0.50); Eosinophils % (auto) 1.7 %; Hematocrit (blood only) 32.8 % (34.1-44.9); Hemoglobin 10.4 g/dl (12.0-16.0); Immature Granulocytes # (auto) 0.02 K/uL (0.00-0.02); Immature Granulocytes % (auto) 0.2 %; Lymphocytes # (auto) 1.69 K/uL (1.2-3.4); Lymphocytes % (auto) 20.3 %; Mean Corpuscular Hemoglobin 24.2 pg (25.0-34.0); Mean Corpuscular Hgb Conc 31.7 g/dL (32.0-36.0); Mean Corpuscular Volume 76.3 fL (80.0-100.0); Mean Platelet Volume 9.5 fL (9.4-12.3); Monocytes # (auto) 1.12 K/uL (0.24-0.82); Monocytes % (auto) 13.5 %; Neutrophils # (auto) 5.27 K/uL (1.4-6.5); Neutrophils % (auto) 63.5 %; Nucleated RBC # (auto) 0.12 K/uL (0-0); Nucleated RBC % (auto) 1.4 %; Platelet Count 350 K/uL (130-400); RDW Coefficient of Variation 17.6 % (11.5-14.5); RDW Standard Deviation 47.5 fL (36.4-46.3); White Blood Count 8.31 K/ul (4.8-10.8)
[2022-02-12 08:47] LABS: Albumin Level 3.6 gm/dl (3.4-5.0); BUN Creatinine Ratio 26.7 (10-20); Bilirubin,Total 1.3 mg/dl (0.2-1.0); Calcium 9.3 mg/dl (8.5-10.1); Creatinine Clr Calc Pharmacy 77.6 ml/min; Est GFR (African American) 66.9 ml/min; Est GFR (Non-African American) 57.7 ml/min; Globulin 3.5 gm/dl (2.5-4.0); Magnesium 2.1 mg/dl (1.7-2.4); Potassium 3.8 mmol/L (3.5-5.1); Total Protein 7.1 gm/dl (6.0-8.3)
[2022-02-12] MEDS: INSULIN ASPART PER UNIT SC SCH ×4 (09:01→20:43)
[2022-02-12] MEDS: DOCUSATE SODIUM 100 MG CAP PO SCH ×2 (09:02→20:40)
[2022-02-12] MEDS: QUEtiapine FUMARATE 100 MG TABLET PO SCH (09:02)
[2022-02-12] MEDS: UMECLIDINIUM/VILANTEROL 62.5/25MCG 7 PUFFS/INHALER INH SCH (09:02)
[2022-02-12] MEDS: METOPROLOL SUCC 50MG EXT REL TAB PO SCH (09:02)
[2022-02-12] MEDS: ATORVASTATIN 10 MG TAB PO SCH (09:02)
[2022-02-12] MEDS: BENZONATATE 100 MG CAPSULE PO SCH ×3 (09:04→21:21)
[2022-02-12] MEDS: hydrOXYzine HCl 25 MG TAB PO PRN (10:26)
[2022-02-12] MEDS: FUROSEMIDE 40 MG/4 ML VIAL IV SCH (12:41)
[2022-02-12] MEDS: DIGOXIN 0.125 MG TAB PO SCH (15:49)
[2022-02-12] MEDS: RIVAROXABAN 20 MG TAB PO SCH (15:49)
[2022-02-12] MEDS: traZODone HCL 100 MG TAB PO SCH (20:40)
[2022-02-12] MEDS: QUEtiapine FUMARATE 200 MG TAB PO SCH (20:40)
--- NOTE | 2022-02-13 06:50 | Hospitalist Progress Note ---
Date of Service February 13, 2022 Assessment & Plan (1) Acute and chronic respiratory failure with hypoxia: Plan: 61yo F w/ hx of HFrEF who presents with acute shortness of breath. Acute on chronic CHF exacerbation, resolved - BNP significantly elevated from priors, and CXR with pulmonary edema. - Echo: 35-40% EF, severe MR, gigantic RA - Lasix 60 mg IV given in ER; continue Lasix 80 mg IV daily (double home dosing), will likely return to home dose on discharge - Fluid restriction, Weights and I&Os, monitor Cr, neg 3L since admission - Appears euvolemic today, daily BMP to monitor kidney function - follows with heart clinic Acute hypoxic resp failure - initially on BiPap, now on home O2 (2-3L) Nausea -Seems to be secondary to mucus production that she is spitting up -No active vomiting -Changed as needed Zofran to Phenergan given borderline QTc interval -Continue Mucinex for mucus. Anemia, stable Chronic anemia with hgb 9-10, but now with microcytosis. Iron studies from ~3 years ago indicated low iron. - anemia labs low - low concern for infection, cont. po iron qOD High anion gap metabolic acidosis, resolved ON admission, AG is 21 from normal on previous discharge. ABG showed a mild metabolic acidosis. Lactate of 7.0. Possible infection but source is unclear and vitals improved without abx. No focal pneumonia on CXR. Other MUDPILES causes seem unlikely as patient reports no ingestions, glucose not substantially elevated, BUN only mildly elevated. - Blood cultures neg, UA noninfectious - lactate now wnl - suspect acidosis due to CHF exacerbation; cannot exclude metformin induced however less likely Nonischemic cardiomyopathy, stable Echo earlier this month showed EF 30 - 35%. Repeat as above. - Continue home metoprolol - Plan as above HTN (hypertension), stable BP wnl - Continue home metoprolol Diabetes type 2, controlled A1c of 6.4% last admission. - Hold metformin - Sliding scale insulin Bipolar disorder, stable Bipolar and anxiety. - Continue home hydroxyzine (lower dose, but increase frequency for hospital- related anxiety), continue home quetiapine - Continue home trazodone, but lower dose Atrial fibrillation, stable Now with pacemaker. - Continue Xarelto - Continue beta-julee and digoxin DVT ppx: xarelto FEN/GI: fluid restriction 1.5L, HH/DM2/low Na Code Status: full Dispo: med surg - PT/OT: recommend rehab - Placement Pending (2) High anion gap metabolic acidosis: (3) Anemia: (4) Nonischemic cardiomyopathy: (5) HTN (hypertension): (6) Bipolar disorder: (7) Diabetes type 2, controlled: (8) Atrial fibrillation, permanent: Admission and Anticipated Discharge Date Admission Date: February 08, 2022 Supervising Physician Co-Signing Physician Notes Resident Physician Supervision Note: I independently interviewed and examined the patient and verified the eugene history and physical, reviewed labs and image studies and agree with resident findings and care plan. Subjective Patient seen at bedside this morning. No acute events reported overnight. Patient is complaining of coughing up clearish phlegm and being nauseous because of this. Reports that her breathing is improved from when she arrived in the hospital. Currently waiting placement for placement at [facility]. Patient is requesting nausea medication. Otherwise patient does seem to be having difficulty with sleeping because of this cough and phlegm. Otherwise has no other complaints at this time. Review of Systems Review of Systems: All systems reviewed & are unremarkable except as noted in HPI & below Physical Exam Constitutional: WD/WN, vitals as above Eyes: + anicteric sclerae Respiratory: normal respiratory effort and + cough; no respiratory distress Auscultation: no crackles, no rales and no rhonchi Cardiovascular: Rate/Rhythm: regular rate and regular rhythm Heart Sounds: + murmur Vessels: no JVD Extremities: + edema Gastrointestinal (Abdomen): normal bowel sounds, soft, nontender, no hepatosplenomegaly Musculoskeletal: Head/Neck/Chest: normocephalic and head atraumatic Skin: no rashes, warm and dry Neurologic: moves all extremities Psychiatric: A+Ox3, euthymic affect Results & Data Results & Data ([facility]) Vital Signs (Past 12 Hours) Vital Signs Temp Pulse Resp BP Pulse Ox O2 Del Method O2 Flow Rate 02/12/22 23:03 36.6 C 62 16 118/86 100 Nasal Cannula 1 02/12/22 19:35 Nasal Cannula 2 (1) Diabetes type 2, controlled Diabetes mellitus complication status: with unspecified complications Diabetes mellitus long term care phlebotomist insulin use: without care home use Qualified Code(s): E11.8 - Type 2 diabetes mellitus with unspecified complications (2) HTN (hypertension) Hypertension type: essential hypertension Qualified Code(s): I10 - Essential (primary) hypertension
[2022-02-13 07:23] LABS: Albumin Globulin Ratio 1.1 (0.9-2); Albumin Level 3.7 gm/dl (3.4-5.0); BUN Creatinine Ratio 28.7 (10-20); Bilirubin,Total 1.2 mg/dl (0.2-1.0); Calcium 9.5 mg/dl (8.5-10.1); Creatinine Clr Calc Pharmacy 70.9 ml/min; Est GFR (African American) 59.9 ml/min; Est GFR (Non-African American) 51.7 ml/min; Globulin 3.5 gm/dl (2.5-4.0); Potassium 3.7 mmol/L (3.5-5.1); Total Protein 7.2 gm/dl (6.0-8.3)
[2022-02-13] MEDS: INSULIN ASPART PER UNIT SC SCH ×4 (07:50→21:14)
[2022-02-13] MEDS: ATORVASTATIN 10 MG TAB PO SCH (07:51)
[2022-02-13] MEDS: DOCUSATE SODIUM 100 MG CAP PO SCH ×2 (07:51→20:51)
[2022-02-13] MEDS: METOPROLOL SUCC 50MG EXT REL TAB PO SCH (07:51)
[2022-02-13] MEDS: QUEtiapine FUMARATE 100 MG TABLET PO SCH (07:51)
[2022-02-13] MEDS: UMECLIDINIUM/VILANTEROL 62.5/25MCG 7 PUFFS/INHALER INH SCH (07:51)
[2022-02-13] MEDS: BENZONATATE 100 MG CAPSULE PO SCH ×3 (07:56→20:51)
[2022-02-13] MEDS: FERROUS SULFATE 325 MG TAB PO SCH (09:52)
[2022-02-13] MEDS: PROMETHAZINE HCL 12.5 MG/10 ML UDP PO PRN (11:18)
[2022-02-13] MEDS: hydrOXYzine HCl 25 MG TAB PO PRN (11:18)
[2022-02-13] MEDS: FUROSEMIDE 40 MG/4 ML VIAL IV SCH (11:37)
[2022-02-13] MEDS: CALCIUM CARBONATE 500 MG CHEWABLE TAB PO PRN (13:20)
[2022-02-13] MEDS: PANTOprazole 40 MG TAB PO SCH (14:57)
[2022-02-13] MEDS: RIVAROXABAN 20 MG TAB PO SCH (17:20)
[2022-02-13] MEDS: DIGOXIN 0.125 MG TAB PO SCH (17:20)
[2022-02-13] MEDS: traZODone HCL 100 MG TAB PO SCH (20:51)
[2022-02-13] MEDS: QUEtiapine FUMARATE 200 MG TAB PO SCH (20:52)
[2022-02-14 08:13] LABS: Albumin Globulin Ratio 1.1 (0.9-2); Albumin Level 3.7 gm/dl (3.4-5.0); Bilirubin,Total 1.2 mg/dl (0.2-1.0); Creatinine Clr Calc Pharmacy 79.1 ml/min; Est GFR (African American) 68.4 ml/min; Globulin 3.5 gm/dl (2.5-4.0); Potassium 3.9 mmol/L (3.5-5.1); Total Protein 7.2 gm/dl (6.0-8.3)
[2022-02-14] MEDS: QUEtiapine FUMARATE 100 MG TABLET PO SCH (08:49)
[2022-02-14] MEDS: BENZONATATE 100 MG CAPSULE PO SCH ×4 (08:49→20:22)
[2022-02-14] MEDS: PANTOprazole 40 MG TAB PO SCH (08:49)
[2022-02-14] MEDS: ATORVASTATIN 10 MG TAB PO SCH (08:49)
[2022-02-14] MEDS: UMECLIDINIUM/VILANTEROL 62.5/25MCG 7 PUFFS/INHALER INH SCH (08:49)
[2022-02-14] MEDS: METOPROLOL SUCC 50MG EXT REL TAB PO SCH (08:49)
[2022-02-14] MEDS: DOCUSATE SODIUM 100 MG CAP PO SCH ×2 (08:49→20:21)
[2022-02-14] MEDS: hydrOXYzine HCl 25 MG TAB PO PRN ×2 (09:04→20:22)
[2022-02-14] MEDS: INSULIN ASPART PER UNIT SC SCH ×4 (09:10→20:29)
[2022-02-14] MEDS: FUROSEMIDE 40 MG/4 ML VIAL IV SCH (10:19)
[2022-02-14] MEDS ORDERED: SENNOSIDES 8.8 MG/5 ML UDC PO PRN (10:26)
[2022-02-14] MEDS: POLYETHYLENE (MIRALAX) 17 GM PACK PO PRN (11:06)
--- NOTE | 2022-02-14 12:34 | Hospitalist Progress Note ---
Date of Service February 14, 2022 Assessment & Plan (1) Acute and chronic respiratory failure with hypoxia: Plan: 61yo F w/ hx of HFrEF who presents with acute shortness of breath. Acute on chronic CHF exacerbation, resolved - BNP significantly elevated from priors, and CXR with pulmonary edema. - Echo: 35-40% EF, severe MR, gigantic RA - Lasix 60 mg IV given in ER; continue Lasix 80 mg IV daily (double home dosing), will likely return to home dose on discharge - Fluid restriction, Weights and I&Os, monitor Cr, neg 3L since admission - Appears euvolemic today, daily BMP to monitor kidney function - follows with heart clinic Constipation -Put in orders for as needed MiraLAX, senna, and Colace -Continue to monitor Acute on chronic hypoxic resp failure with OHS - initially on BiPap, now on home O2 (2-3L) Nausea -Seems to be secondary to mucus production that she is spitting up -No active vomiting -Changed as needed Zofran to Phenergan given borderline QTc interval -Continue Mucinex for mucus. Anemia, stable Chronic anemia with hgb 9-10, but now with microcytosis. Iron studies from ~3 years ago indicated low iron. - anemia labs low - low concern for infection, cont. po iron qOD High anion gap metabolic acidosis, resolved ON admission, AG is 21 from normal on previous discharge. ABG showed a mild metabolic acidosis. Lactate of 7.0. Possible infection but source is unclear and vitals improved without abx. No focal pneumonia on CXR. Other MUDPILES causes seem unlikely as patient reports no ingestions, glucose not substantially elevated, BUN only mildly elevated. - Blood cultures neg, UA noninfectious - lactate now wnl - suspect acidosis due to CHF exacerbation; cannot exclude metformin induced however less likely Nonischemic cardiomyopathy, stable Echo earlier this month showed EF 30 - 35%. Repeat as above. - Continue home metoprolol - Plan as above HTN (hypertension), stable BP wnl - Continue home metoprolol Diabetes type 2, controlled A1c of 6.4% last admission. - Hold metformin - Sliding scale insulin Bipolar disorder, stable Bipolar and anxiety. - Continue home hydroxyzine (lower dose, but increase frequency for hospital- related anxiety), continue home quetiapine - Continue home trazodone, but lower dose Atrial fibrillation, stable Now with pacemaker. - Continue Xarelto - Continue beta-julee and digoxin DVT ppx: xarelto FEN/GI: fluid restriction 1.5L, HH/DM2/low Na Code Status: full Dispo: med surg - PT/OT: recommend rehab - Placement Pending (2) High anion gap metabolic acidosis: (3) Anemia: (4) Nonischemic cardiomyopathy: (5) HTN (hypertension): (6) Bipolar disorder: (7) Diabetes type 2, controlled: (8) Atrial fibrillation, permanent: Admission and Anticipated Discharge Date Admission Date: February 08, 2022 Supervising Physician Co-Signing Physician Notes Resident Physician Supervision Note: I independently interviewed and examined the patient and verified the eugene history and physical, reviewed labs and image studies and agree with resident findings and care plan. Subjective Patient seen at bedside this morning. No acute events reported overnight. Unfortunately patient is having some abdominal cramping and had a couple loose, small stools overnight and feels that she needs to go more but is having difficulty. Patient is requesting laxatives to help her go to the bathroom. Otherwise breathing overall doing well today and has no other complaints this time Review of Systems Review of Systems: All systems reviewed & are unremarkable except as noted in HPI & below Physical Exam Constitutional: WD/WN, vitals as above Eyes: + anicteric sclerae Respiratory: normal respiratory effort and + cough; no respiratory distress Auscultation: no crackles, no rales and no rhonchi Cardiovascular: Rate/Rhythm: regular rate and regular rhythm Heart Sounds: + murmur Vessels: no JVD Extremities: + edema Gastrointestinal (Abdomen): normal bowel sounds, soft, nontender, no hepatosplenomegaly Musculoskeletal: Head/Neck/Chest: normocephalic and head atraumatic Skin: no rashes, warm and dry Neurologic: moves all extremities Psychiatric: A+Ox3, euthymic affect Results & Data Results & Data ([facility]) Vital Signs (Past 12 Hours) Vital Signs Temp Pulse Resp BP Pulse Ox O2 Del Method O2 Flow Rate 02/14/22 10:10 Room Air 02/14/22 07:57 91 Room Air 02/14/22 07:10 Nasal Cannula 1 02/14/22 07:21 36.6 C 63 16 116/80 94 Room Air (1) Diabetes type 2, controlled Diabetes mellitus complication status: with unspecified complications Diabetes mellitus termite exterminator insulin use: without termite exterminator use Qualified Code(s): E11.8 - Type 2 diabetes mellitus with unspecified complications (2) HTN (hypertension) Hypertension type: essential hypertension Qualified Code(s): I10 - Essential (primary) hypertension
[2022-02-14] MEDS: CALCIUM CARBONATE 500 MG CHEWABLE TAB PO PRN (13:26)
[2022-02-14] MEDS: RIVAROXABAN 20 MG TAB PO SCH (15:42)
[2022-02-14] MEDS: DIGOXIN 0.125 MG TAB PO SCH (15:42)
[2022-02-14] MEDS: PROMETHAZINE HCL 12.5 MG/10 ML UDP PO PRN (17:57)
[2022-02-14] MEDS: QUEtiapine FUMARATE 200 MG TAB PO SCH (20:22)
[2022-02-14] MEDS: traZODone HCL 100 MG TAB PO SCH (20:22)
--- NOTE | 2022-02-15 07:57 | Hospitalist Progress Note ---
Date of Service February 15, 2022 Assessment & Plan (1) Acute and chronic respiratory failure with hypoxia: Plan: 61yo F w/ hx of HFrEF who presents with acute shortness of breath. Acute on chronic CHF exacerbation, resolved - BNP significantly elevated from priors, and CXR with pulmonary edema. - Echo: 35-40% EF, severe MR, gigantic RA - Lasix 60 mg IV given in ER; Lasix 80 mg IV daily (double home dosing) switched to 40mg IV daily - Fluid restriction, Weights and I&Os, monitor Cr, neg 3L since admission - Appears euvolemic today, daily BMP to monitor kidney function - follows with heart clinic Constipation -Put in orders for as needed MiraLAX, senna, and Colace -Added in dulcolax. -Continue to monitor Acute mental status change: -Patient w/ subjective findings as above, reported 1 episode of confusion noted by nursing as well as decreased urine output. -May be secondary to constipation vs overdiuresis vs UTI -Treating constipation as above. Lasix dose lowered to 40mg daily. -Ordered VBG, urinalysis, digoxin level. -Will recheck in AM. Acute hypoxic resp failure - initially on BiPap, now on home O2 (2-3L) Nausea -Seems to be secondary to mucus production that she is spitting up -No active vomiting -Changed as needed Zofran to Phenergan given borderline QTc interval -Continue Mucinex for mucus. Anemia, stable Chronic anemia with hgb 9-10, but now with microcytosis. Iron studies from ~3 years ago indicated low iron. - anemia labs low - low concern for infection, cont. po iron qOD High anion gap metabolic acidosis, resolved ON admission, AG is 21 from normal on previous discharge. ABG showed a mild metabolic acidosis. Lactate of 7.0. Possible infection but source is unclear and vitals improved without abx. No focal pneumonia on CXR. Other MUDPILES causes seem unlikely as patient reports no ingestions, glucose not substantially elevated, BUN only mildly elevated. - Blood cultures neg, UA noninfectious - lactate now wnl - suspect acidosis due to CHF exacerbation; cannot exclude metformin induced however less likely - Ordered VBG, repeat U/A, digoxin level as above. Nonischemic cardiomyopathy, stable Echo earlier this month showed EF 30 - 35%. Repeat as above. - Continue home metoprolol - Plan as above HTN (hypertension), stable BP wnl - Continue home metoprolol Diabetes type 2, controlled A1c of 6.4% last admission. - Hold metformin - Sliding scale insulin Bipolar disorder, stable Bipolar and anxiety. - Continue home hydroxyzine (lower dose, but increase frequency for hospital- related anxiety), continue home quetiapine - Continue home trazodone, but lower dose Atrial fibrillation, stable Now with pacemaker. - Continue Xarelto - Continue beta-julee and digoxin DVT ppx: xarelto FEN/GI: fluid restriction 1.5L, HH/DM2/low Na Code Status: full Dispo: med surg - PT/OT: recommend rehab - Placement Pending (2) High anion gap metabolic acidosis: (3) Anemia: (4) Nonischemic cardiomyopathy: (5) HTN (hypertension): (6) Bipolar disorder: (7) Diabetes type 2, controlled: (8) Atrial fibrillation, permanent: Admission and Anticipated Discharge Date Admission Date: February 08, 2022 Supervising Physician Co-Signing Physician Notes I personally examined the patient and verified all eugene points of history and exam, discussed case, and agree with decision making with Dr Li no new complaints, awaiting rehab vitals noted nad heent nc at mmm breathing unlabored no accessory muscles good effort skin no rashes no pallor or icterus neuro no focal deficits weakness - for rehab otherwise as above Subjective Patient seen at the bedside this morning saying she is generally not feeling too well. She was unable to pinpoint where exactly however denied chest pain, fevers, shortness of breath. I reassessed patient around 4:30 due to complaints from her nurse that she was slightly confused/not oriented to place. Patient still endorsed feeling generalized not feeling well - I let her know this may be due to her constipation and deconditioning but will pursue a further workup with VBG, U/A, digoxin level. Review of Systems 2 Constitutional: as per Subjective / HPI Physical Exam Constitutional: WD/WN, vitals as above Patient alert and oriented and not in any acute distress. Respiratory: normal respiratory effort, lungs clear to auscultation Cardiovascular: Rate/Rhythm: regular rate and regular rhythm Heart Sounds: normal S1 and normal S2 2+ pitting edema at lower extremities bilaterally. Psychiatric: Orientation: alert, oriented to person and oriented to time Results & Data Results & Data ([facility]) Vital Signs (Past 12 Hours) Vital Signs Temp Pulse Resp BP Pulse Ox O2 Del Method 02/15/22 07:09 36.5 C 64 18 131/84 94 Room Air 02/14/22 20:15 Room Air 02/14/22 22:21 36.4 C L 64 18 116/79 91 Room Air Resident Activity Tracking Resident Involvement: Resident Care Provided Care Provided: Adult Hospital Medicine (1) Diabetes type 2, controlled Diabetes mellitus complication status: with unspecified complications Diabetes mellitus health insurance sales agent insulin use: without half-way use Qualified Code(s): E11.8 - Type 2 diabetes mellitus with unspecified complications (2) HTN (hypertension) Hypertension type: essential hypertension Qualified Code(s): I10 - Essential (primary) hypertension
[2022-02-15 08:02] LABS: Albumin Globulin Ratio 1.1 (0.9-2); Albumin Level 3.7 gm/dl (3.4-5.0); BUN Creatinine Ratio 34.1 (10-20); Bilirubin,Total 1.4 mg/dl (0.2-1.0); Calcium 9.7 mg/dl (8.5-10.1); Creatinine Clr Calc Pharmacy 63.2 ml/min; Est GFR (African American) 52.1 ml/min; Globulin 3.4 gm/dl (2.5-4.0); Potassium 3.9 mmol/L (3.5-5.1); Total Protein 7.1 gm/dl (6.0-8.3)
[2022-02-15] MEDS ORDERED: FUROSEMIDE 80 MG TAB PO SCH (09:30)
[2022-02-15] MEDS: INSULIN ASPART PER UNIT SC SCH ×4 (09:31→19:34)
[2022-02-15] MEDS: ATORVASTATIN 10 MG TAB PO SCH (09:32)
[2022-02-15] MEDS: UMECLIDINIUM/VILANTEROL 62.5/25MCG 7 PUFFS/INHALER INH SCH (09:32)
[2022-02-15] MEDS: FERROUS SULFATE 325 MG TAB PO SCH (09:33)
[2022-02-15] MEDS: QUEtiapine FUMARATE 100 MG TABLET PO SCH (09:33)
[2022-02-15] MEDS: PANTOprazole 40 MG TAB PO SCH (09:33)
[2022-02-15] MEDS: METOPROLOL SUCC 50MG EXT REL TAB PO SCH (09:33)
[2022-02-15] MEDS: DOCUSATE SODIUM 100 MG CAP PO SCH ×2 (09:38→19:41)
[2022-02-15] MEDS: POLYETHYLENE (MIRALAX) 17 GM PACK PO PRN (09:40)
[2022-02-15] MEDS: BENZONATATE 100 MG CAPSULE PO SCH ×3 (09:40→19:40)
[2022-02-15] MEDS ORDERED: bisacodyL 5 MG TABEC PO ONE (17:25)
[2022-02-15] MEDS: RIVAROXABAN 20 MG TAB PO SCH (17:59)
[2022-02-15] MEDS: QUEtiapine FUMARATE 200 MG TAB PO SCH (19:36)
[2022-02-15] MEDS: traZODone HCL 100 MG TAB PO SCH (19:38)
--- NOTE | 2022-02-15 19:56 | Billing Data ---
Date of Service February 15, 2022 Coding Level of Care Code 18565 Subseq Hosp Care Lvl 1
[2022-02-16] MEDS: DIGOXIN 0.125 MG TAB PO SCH ×2 (01:34→16:02)
--- NOTE | 2022-02-16 07:08 | Hospitalist Progress Note ---
Date of Service February 16, 2022 Assessment & Plan (1) Acute and chronic respiratory failure with hypoxia: Plan: 61yo F w/ hx of HFrEF who presents with acute shortness of breath. Acute on chronic CHF exacerbation, resolved - BNP significantly elevated from priors, and CXR with pulmonary edema. - Echo: 35-40% EF, severe MR, gigantic RA - Lasix 60 mg IV given in ER; Lasix 80 mg IV daily switched to 40mg PO daily (home regimen) - Fluid restriction, Weights and I&Os, monitor Cr, neg 3L since admission - Appears euvolemic today, daily BMP to monitor kidney function - follows with heart clinic Constipation -Put in orders for as needed MiraLAX, senna, and Colace -Added in dulcolax. -Continue to monitor Acute mental status change: -Patient w/ subjective findings as above, reported 1 episode of confusion noted by nursing as well as decreased urine output. -May be secondary to constipation vs overdiuresis vs UTI -Treating constipation as above. Lasix dose lowered to 40mg daily. -Patient on Xarelto, Head CT w/o contrast ordered, motion with CT but no overt signs of bleeding or abnormality. -ABG with evidence of metabolic alkalosis, lactate 3.6, no overt signs of infection - ordered CXR to assess for underlying lung issue. -Will recheck in AM. Acute hypoxic resp failure - initially on BiPap, now on home O2 (2-3L) Nausea -Seems to be secondary to mucus production that she is spitting up -No active vomiting -Changed as needed Zofran to Phenergan given borderline QTc interval -Continue Mucinex for mucus. Anemia, stable Chronic anemia with hgb 9-10, but now with microcytosis. Iron studies from ~3 years ago indicated low iron. - anemia labs low - low concern for infection, cont. po iron qOD High anion gap metabolic acidosis, resolved ON admission, AG is 21 from normal on previous discharge. ABG showed a mild metabolic acidosis. Lactate of 7.0. Possible infection but source is unclear and vitals improved without abx. No focal pneumonia on CXR. Other MUDPILES causes seem unlikely as patient reports no ingestions, glucose not substantially elevated, BUN only mildly elevated. - Blood cultures neg, UA noninfectious - lactate now wnl - suspect acidosis due to CHF exacerbation; cannot exclude metformin induced however less likely - ABG with evidence of metabolic alkalosis now. Will get CXR as above. Nonischemic cardiomyopathy, stable Echo earlier this month showed EF 30 - 35%. Repeat as above. - Continue home metoprolol - Plan as above HTN (hypertension), stable BP wnl - Continue home metoprolol Diabetes type 2, controlled A1c of 6.4% last admission. - Hold metformin - Sliding scale insulin Bipolar disorder, stable Bipolar and anxiety. - Continue home hydroxyzine (lower dose, but increase frequency for hospital- related anxiety), continue home quetiapine - Continue home trazodone, but lower dose Atrial fibrillation, stable Now with pacemaker. - Continue Xarelto - Continue beta-julee and digoxin DVT ppx: xarelto FEN/GI: fluid restriction 1.5L, HH/DM2/low Na Code Status: full Dispo: med surg - PT/OT: recommend rehab - Placement Pending (2) High anion gap metabolic acidosis: (3) Anemia: (4) Nonischemic cardiomyopathy: (5) HTN (hypertension): (6) Bipolar disorder: (7) Diabetes type 2, controlled: (8) Atrial fibrillation, permanent: Admission and Anticipated Discharge Date Admission Date: February 08, 2022 Supervising Physician Co-Signing Physician Notes I personally examined the patient and verified all eugene points of history and exam, discussed case, and agree with decision making with Dr Li Was more confused earlier. Now is anxious and very tired. She denies any focal complaints no chest pain no shortness of breath. She is aware that she is in the hospital though she does not seem to have good circumstantial awareness as to why. She denies any pain denies any shortness of breath denies any focal symptoms. In discussion with nursing her levels of confusion have been waxing and waning some. To me she notes that she is very very tired and did not sleep well, and is fairly anxious. Vitals noted, in general she is awake and alert is oriented but seems to be only loosely aware of circumstances. No distress. HEENT normocephalic atraumatic mucous membranes moist. Lungs are clear to auscultation bilaterally no rales rhonchi or wheeze with good effort. Cardio is regular no rubs murmurs or gallops. Abdomen is soft extremities without cyanosis or clubbing. Neuro shows cranial nerves II through XII be grossly intact gross motor and sensory are intact, no focal deficits/lateralizing signs. Deliriumno overt infections or infectious signs or symptoms, is now on the dry side of euvolemic -but does not seem to be enough to provoke a metabolic encephalopathy, no new meds or changes in doses that appear consistent with provoking a toxic encephalopathy/digoxin level 1.8, and given her young age I doubt simply being in the hospital environment would be enough to provoke a delirium. To that end, her supposition of waxing and waning consciousness from fatigue and anxiety does seem to make the most sense. When I was in the room with her she was yawning good bed looking very tiredturned out the lights and encouraged her to try to rest. weakness - for rehab otherwise as above Subjective Overnight patient denied blood work that was ordered, not oriented to place or why she is here. She tried the miralax and dulcolax however did not get much out of those. Review of Systems Constitutional: as per Subjective / HPI Physical Exam Constitutional: WD/WN, vitals as above Respiratory: normal respiratory effort, lungs clear to auscultation Cardiovascular: Rate/Rhythm: regular rate and regular rhythm Heart Sounds: normal S1 and normal S2 Psychiatric: Orientation: alert, oriented to person and oriented to time Results & Data Results & Data ([facility] Vital Signs (Past 12 Hours) Vital Signs Temp Pulse Resp BP Pulse Ox O2 Del Method 02/15/22 21:52 37.0 C 84 18 121/79 93 Room Air 02/15/22 20:00 Room Air Resident Activity Tracking Resident Involvement: Resident Care Provided Care Provided: Adult Hospital Medicine (1) Diabetes type 2, controlled Diabetes mellitus complication status: with unspecified complications Diabetes mellitus machine long goods helper insulin use: without machine long goods helper use Qualified Code(s): E11.8 - Type 2 diabetes mellitus with unspecified complications (2) HTN (hypertension) Hypertension type: essential hypertension Qualified Code(s): I10 - Essential (primary) hypertension
[2022-02-16 08:29] LABS: Basophils # (auto) 0.05 K/uL (0-0.2); Basophils % (auto) 0.5 %; Eosinophils # (auto) 0.03 K/uL (0-0.50); Eosinophils % (auto) 0.3 %; Hemoglobin 10.6 g/dl (12.0-16.0); Immature Granulocytes # (auto) 0.04 K/uL (0.00-0.02); Immature Granulocytes % (auto) 0.4 %; Lymphocytes # (auto) 1.84 K/uL (1.2-3.4); Mean Corpuscular Hemoglobin 23.6 pg (25.0-34.0); Mean Corpuscular Hgb Conc 31.2 g/dL (32.0-36.0); Mean Corpuscular Volume 75.7 fL (80.0-100.0); Mean Platelet Volume 9.4 fL (9.4-12.3); Monocytes # (auto) 0.92 K/uL (0.24-0.82); Monocytes % (auto) 9.5 %; Neutrophils # (auto) 6.78 K/uL (1.4-6.5); Neutrophils % (auto) 70.3 %; Nucleated RBC # (auto) 0.43 K/uL (0-0); Nucleated RBC % (auto) 4.5 %; Platelet Count 417 K/uL (130-400); RDW Coefficient of Variation 17.8 % (11.5-14.5); RDW Standard Deviation 46.1 fL (36.4-46.3); Red Blood Count 4.49 M/uL (3.93-5.22); White Blood Count 9.66 K/ul (4.8-10.8)
[2022-02-16 08:55] LABS: Albumin Globulin Ratio 1.1 (0.9-2); Albumin Level 3.6 gm/dl (3.4-5.0); Bilirubin,Total 1.7 mg/dl (0.2-1.0); Calcium 9.7 mg/dl (8.5-10.1); Creatinine Clr Calc Pharmacy 52.8 ml/min; Est GFR (African American) 42.4 ml/min; Est GFR (Non-African American) 36.6 ml/min; Globulin 3.4 gm/dl (2.5-4.0); Potassium 4.1 mmol/L (3.5-5.1)
[2022-02-16 08:59] LABS: Acanthocytes 1+; Ovalocytes 1+; Poikilocytosis Present; Polychromasia 1+; Target Cells 1+
[2022-02-16] MEDS: INSULIN ASPART PER UNIT SC SCH ×4 (09:12→20:49)
[2022-02-16] MEDS: UMECLIDINIUM/VILANTEROL 62.5/25MCG 7 PUFFS/INHALER INH SCH (09:13)
[2022-02-16] MEDS: QUEtiapine FUMARATE 100 MG TABLET PO SCH (09:14)
[2022-02-16] MEDS: METOPROLOL SUCC 50MG EXT REL TAB PO SCH (09:14)
[2022-02-16] MEDS: ATORVASTATIN 10 MG TAB PO SCH (09:15)
[2022-02-16] MEDS: FUROSEMIDE 40 MG TAB PO SCH (09:16)
[2022-02-16] MEDS: PANTOprazole 40 MG TAB PO SCH (09:17)
[2022-02-16] MEDS: DOCUSATE SODIUM 100 MG CAP PO SCH ×2 (09:18→21:40)
[2022-02-16] MEDS: BENZONATATE 100 MG CAPSULE PO SCH ×3 (09:18→21:40)
--- NOTE | 2022-02-16 11:23 | CT Scan Report ---
CT head/brain wo con CLINICAL HISTORY: Change in mental status, on Xarelto Technique: Contiguous axial CT images of the head were acquired from the base of the skull to the negrito nury without intravenous contrast administration. Images were viewed in brain, subdural and bone windo ws. Automated dose lowering techniques and/or adjustment according to patient size were utilized for this exam. Comparison: Comparison is made to CT head 01/17/2022 Findings: Exam is highly limited by patient motion. The ventricles, basal cisterns, and cerebral sulci are norm al. There is no acute intracranial hemorrhage or evidence of acute territorial infarction. Neither ma ss effect, shift of the midline structures, nor abnormal extra-axial fluid collections are shown. Imaged portions of the paranasal sinuses and mastoid air cells are clear. The orbits appear normal. There are no acute fractures of the calvaria or scalp swelling. Impression: No acute intracranial hemorrhage, no evidence of acute territorial infarction or other acute intracra nial disease process. ACT 112: Negative or not required by law. Electronically signed by: Jack Beltran M.D. 02/16/2022 11:22 AM
[2022-02-16] MEDS: CALCIUM CARBONATE 500 MG CHEWABLE TAB PO PRN (13:23)
[2022-02-16 15:59] LABS: Base Excess ABG 9.2 mEq/L (-9-1.8); HCO3 ABG 33 mmol/L (19-24); Oxygen Saturation ABG 93.4 % (90-95); PCO2 ABG 39 mmHg (35-46); PO2 ABG 67 mmHg (80-95)
[2022-02-16] MEDS: POLYETHYLENE (MIRALAX) 17 GM PACK PO PRN (16:02)
[2022-02-16] MEDS: RIVAROXABAN 20 MG TAB PO SCH (16:02)
[2022-02-16 16:08] LABS: Allen Test Pos (Pos)
[2022-02-16 16:14] LABS: pH ABG 7.53 (7.35-7.45)
--- NOTE | 2022-02-16 17:03 | Billing Data ---
Date of Service February 16, 2022 Coding Level of Care Code 74938 Subseq Hosp Care Lvl 3
--- NOTE | 2022-02-16 20:00 | XRay Report ---
XR chest 1V portable CLINICAL HISTORY: Low O2 on ABG, increased lactate, concern infxn. COMPARISON STUDY: Chest radiograph February 08, 2022 FINDINGS: Marked cardiomegaly is again noted. A left subclavian biventricular pacer/AICD is in place. There is no pneumothorax. Small to moderate bilateral pleural effusions are noted with persistent bi basilar opacities. Right suprahilar density shown on exam of February 08, 2022 is less conspicuous. T his was likely artifactual. Mild pulmonary edema is noted. This has improved. Opacity along the left heart border is likely due to epicardial fat pad. IMPRESSION: 1. Mild pulmonary edema, improved since prior exam. 2. Small to moderate bilateral pleural effusions with associated bibasilar opacities which could refl ect atelectasis or consolidation. 3. Stable cardiomegaly. ACT 112: Negative or not required by law. Electronically signed by: Gurmeet Zamora M.D. 02/16/2022 7:59 PM
[2022-02-16] MEDS: QUEtiapine FUMARATE 200 MG TAB PO SCH (21:19)
[2022-02-16] MEDS: traZODone HCL 100 MG TAB PO SCH (21:19)
[2022-02-17 05:48] LABS: Appearance Urine Clear (Clear); Bacteria Urine Automated Negative (Negative); Bilirubin Urine Negative (Negative); Blood Urine Negative (Negative); Color Urine Dark Yellow; Epithelial Cell Urine Auto >30 /lpf (0-5); Glucose Urine UA Negative (Negative); Ketones Urine Negative (Negative); Leukocyte Esterase Urine 1+ (Negative); Nitrite Urine Negative (Negative); Protein Urine Negative (Negative); RBC Urine Automated 0-4 /hpf (0-4); Specific Gravity Urine 1.015 (1.000-1.030); Urobilinogen Urine Negative (Negative)
--- NOTE | 2022-02-17 06:40 | Hospitalist Progress Note ---
Date of Service February 17, 2022 Assessment & Plan (1) Acute and chronic respiratory failure with hypoxia: Plan: 61yo F w/ hx of HFrEF who presents with acute shortness of breath. Acute on chronic CHF exacerbation, resolved - BNP significantly elevated from priors, and CXR with pulmonary edema. - Echo: 35-40% EF, severe MR, gigantic RA - Lasix 60 mg IV given in ER; Lasix 80 mg IV daily switched to 40mg PO daily (home regimen) - Fluid restriction, Weights and I&Os, monitor Cr, neg 3L since admission - Appears euvolemic today, daily BMP to monitor kidney function - follows with heart clinic Constipation -Put in orders for as needed MiraLAX, senna, and Colace -Added in dulcolax. -Continue to monitor Acute mental status change: -Patient w/ reported periods of confusion noted by nursing as well as decreased urine output at times. -Treating constipation as above. Lasix dose lowered to 40mg daily. -Patient on Xarelto, Head CT w/o contrast ordered, motion with CT but no overt signs of bleeding or abnormality. -ABG with evidence of metabolic alkalosis and low PaO2, lactate 3.6, no overt signs of infection. -CXR w/ improvement to pulmonary edema, bibasilar atelectasis. -Blood cultures returned 1/2 staph, strep species most likely contaminate however await full results. -Lactate trended back down to 1.0 after patient being on supplemental O2 at her home 2-3L. -Most likely due to not being on home O2 given good improvement on it. Acute hypoxic resp failure - initially on BiPap, now on home O2 (2-3L) Nausea -Seems to be secondary to mucus production that she is spitting up -No active vomiting -Changed as needed Zofran to Phenergan given borderline QTc interval -Continue Mucinex for mucus. Anemia, stable Chronic anemia with hgb 9-10, but now with microcytosis. Iron studies from ~3 years ago indicated low iron. - anemia labs low - low concern for infection, cont. po iron qOD High anion gap metabolic acidosis, resolved ON admission, AG is 21 from normal on previous discharge. ABG showed a mild metabolic acidosis. Lactate of 7.0. Possible infection but source is unclear and vitals improved without abx. No focal pneumonia on CXR. Other MUDPILES causes seem unlikely as patient reports no ingestions, glucose not substantially elevated, BUN only mildly elevated. - Blood cultures neg, UA noninfectious - lactate now wnl - suspect acidosis due to CHF exacerbation; cannot exclude metformin induced however less likely - ABG with evidence of metabolic alkalosis and low PaO2. Nonischemic cardiomyopathy, stable Echo earlier this month showed EF 30 - 35%. Repeat as above. - Continue home metoprolol - Plan as above HTN (hypertension), stable BP wnl - Continue home metoprolol Diabetes type 2, controlled A1c of 6.4% last admission. - Hold metformin - Sliding scale insulin Bipolar disorder, stable Bipolar and anxiety. - Continue home hydroxyzine (lower dose, but increase frequency for hospital- related anxiety), continue home quetiapine - Continue home trazodone, but lower dose Atrial fibrillation, stable Now with pacemaker. - Continue Xarelto - Continue beta-julee and digoxin DVT ppx: xarelto FEN/GI: fluid restriction 1.5L, HH/DM2/low Na Code Status: full Dispo: med surg - PT/OT: recommend rehab - Placement Pending, patient back to baseline mental status. (2) High anion gap metabolic acidosis: (3) Anemia: (4) Nonischemic cardiomyopathy: (5) HTN (hypertension): (6) Bipolar disorder: (7) Diabetes type 2, controlled: (8) Atrial fibrillation, permanent: Admission and Anticipated Discharge Date Admission Date: February 08, 2022 Supervising Physician Co-Signing Physician Notes I personally examined the patient and verified all eugene points of history and exam, discussed case, and agree with decision making with Dr Li Doing better overall. Feeling less tired definitely more with it. No acute complaints. Vitals noted, in general she is awake and alert pleasant no distress. HEENT normocephalic atraumatic mucous membranes moist. Breathing unlabored no accessory muscle use good effort. Skin shows no rashes no pallor or icterus. Neuro without focal deficits. Deliriumlikely low oxygen mediatedseems to been remedied since oxygen is turned back on. Continue supportive care. weakness - for rehab once approved/available otherwise as above Subjective Patient seen at the bedside sitting in chair looking tired; patient denies difficulty breathing, abdominal pain, nausea. Patient seen later in the day, much more alert. Review of Systems Constitutional: as per Subjective / HPI Physical Exam Constitutional: WD/WN, vitals as above Respiratory: normal respiratory effort, lungs clear to auscultation Cardiovascular: Rate/Rhythm: regular rate and regular rhythm Heart Sounds: normal S1 and normal S2 Extremities: + edema (2+ pitting edema bilaterally ) Psychiatric: Orientation: alert, oriented to person and oriented to time Results & Data Results & Data ([facility]) Vital Signs (Past 12 Hours) Vital Signs Temp Pulse Resp BP Pulse Ox O2 Del Method O2 Flow Rate 02/16/22 22:14 36.6 C 65 18 105/76 99 Nasal Cannula 2 02/16/22 21:01 72 22 99 Nasal Cannula 2 02/16/22 20:00 Nasal Cannula 2 02/16/22 19:15 20 95 Room Air 02/16/22 20:00 36.4 C L 65 24 125/64 99 Nasal Cannula 2 Resident Activity Tracking Resident Involvement: Resident Care Provided Care Provided: Adult Hospital Medicine (1) Diabetes type 2, controlled Diabetes mellitus complication status: with unspecified complications Diabetes mellitus mcfp insulin use: without mcfp use Qualified Code(s): E11.8 - Type 2 diabetes mellitus with unspecified complications (2) HTN (hypertension) Hypertension type: essential hypertension Qualified Code(s): I10 - Essential (primary) hypertension
[2022-02-17 08:12] LABS: Basophils # (auto) 0.04 K/uL (0-0.2); Basophils % (auto) 0.5 %; Eosinophils # (auto) 0.05 K/uL (0-0.50); Eosinophils % (auto) 0.6 %; Hematocrit (blood only) 32.4 % (34.1-44.9); Hemoglobin 10.5 g/dl (12.0-16.0); Immature Granulocytes # (auto) 0.08 K/uL (0.00-0.02); Immature Granulocytes % (auto) 0.9 %; Lymphocytes % (auto) 18.7 %; Mean Corpuscular Hemoglobin 23.6 pg (25.0-34.0); Mean Corpuscular Hgb Conc 32.4 g/dL (32.0-36.0); Mean Platelet Volume 9.3 fL (9.4-12.3); Monocytes # (auto) 0.84 K/uL (0.24-0.82); Monocytes % (auto) 9.8 %; Neutrophils # (auto) 5.96 K/uL (1.4-6.5); Neutrophils % (auto) 69.5 %; Nucleated RBC # (auto) 0.18 K/uL (0-0); Nucleated RBC % (auto) 2.1 %; Platelet Count 378 K/uL (130-400); RDW Coefficient of Variation 17.7 % (11.5-14.5); RDW Standard Deviation 44.5 fL (36.4-46.3); Red Blood Count 4.44 M/uL (3.93-5.22); White Blood Count 8.57 K/ul (4.8-10.8)
[2022-02-17 08:34] LABS: ALC (manual) 2.06 K/uL (1.2-3.4); ANC (manual) 5.66 K/uL (1.4-6.5); Basophils # (manual) 0.09 K/uL (0-0.2); Basophils % (manual) 1 %; Eosinophils # (manual) 0.17 K/uL (0-0.50); Eosinophils % (manual) 2 %; Lymphocytes # (manual) 2.06 K/uL (1.2-3.4); Lymphocytes % (manual) 24 %; Monocytes % (manual) 7 %; Myelocytes # (manual) 0.09 K/uL (0-0); Myelocytes % (manual) 1 %; Neutrophils # (manual) 5.66 K/uL (1.4-6.5); Neutrophils % (manual) 66 %; Ovalocytes 1+; Polychromasia 1+; Target Cells 1+; Toxic Vacuolation 1+
[2022-02-17 08:52] LABS: BUN Creatinine Ratio 37.6 (10-20); Calcium 9.5 mg/dl (8.5-10.1); Est GFR (African American) 58.7 ml/min; Est GFR (Non-African American) 50.6 ml/min; Potassium 3.7 mmol/L (3.5-5.1)
[2022-02-17] MEDS: INSULIN ASPART PER UNIT SC SCH ×4 (09:08→20:43)
[2022-02-17] MEDS: FUROSEMIDE 40 MG TAB PO SCH (09:09)
[2022-02-17] MEDS: UMECLIDINIUM/VILANTEROL 62.5/25MCG 7 PUFFS/INHALER INH SCH (09:09)
[2022-02-17] MEDS: PANTOprazole 40 MG TAB PO SCH (09:09)
[2022-02-17] MEDS: METOPROLOL SUCC 50MG EXT REL TAB PO SCH (09:09)
[2022-02-17] MEDS: FERROUS SULFATE 325 MG TAB PO SCH (09:09)
[2022-02-17] MEDS: BENZONATATE 100 MG CAPSULE PO SCH ×3 (09:09→20:44)
[2022-02-17] MEDS: DOCUSATE SODIUM 100 MG CAP PO SCH ×2 (09:09→20:44)
[2022-02-17] MEDS: ATORVASTATIN 10 MG TAB PO SCH (09:09)
[2022-02-17] MEDS: QUEtiapine FUMARATE 100 MG TABLET PO SCH (09:45)
[2022-02-17 16:42] LABS: A calco-baum cmplx NotReported Not Detected (NotDetected); Bact fragilis Not Reported Not Detected (NotDetected); C auris Not Reported Not Detected (NotDetected); Calbicans Not Reported Not Detected (NotDetected); Candida glabrata Not Reported Not Detected (NotDetected); Candida krusei Not Reported Not Detected (NotDetected); Cneoformans/gatti Not Reported Not Detected (NotDetected); Cparapsilosis Not Reported Not Detected (NotDetected); Ctropicalis Not Reported Not Detected (NotDetected); E cloacae compx Not Reported Not Detected (NotDetected); Efaecalis Not Reported Not Detected (NotDetected); Efaecium Not Reported Not Detected (NotDetected); Enterobacterales Not Reported Not Detected (NotDetected); Escherichia coli Not Reported Not Detected (NotDetected); H influenzae Not Reported Not Detected (NotDetected); K aerogenes Not Reported Not Detected (NotDetected); Koxytoca Not Reported Not Detected (NotDetected); Kpneumoniae grp Not Reported Not Detected (NotDetected); Lmonocyt Not Reported Not Detected (NotDetected); N meningitidis Not Reported Not Detected (NotDetected); P aeruginosa Not Reported Not Detected (NotDetected); Proteus spp Not Reported Not Detected (NotDetected); Salmonella spp Not Reported Not Detected (NotDetected); Smarcescens Not Reported Not Detected (NotDetected); Staph lugdunensis Not Reported Not Detected (NotDetected); Staph spp. Not Reported DETECTED (NotDetected); Staphaureus Not Reported Not Detected (NotDetected); Staphepi Not Reported DETECTED (NotDetected); Stenmaltophilia Not Reported Not Detected (NotDetected); Strep agal(GrpB) Not Reported Not Detected (NotDetected); Strep pneum Not Reported Not Detected (NotDetected); Strep pyog (GrpA) Not Reported Not Detected (NotDetected); Strep spp Not Reported Not Detected (NotDetected)
[2022-02-17 17:16] LABS: Staphylococcus epidermidis DETECTED (NotDetected); Staphylococcus spp. DETECTED (NotDetected); mecAC Resistant Gene DETECTED (NotDetected)
[2022-02-17] MEDS: RIVAROXABAN 20 MG TAB PO SCH (18:09)
[2022-02-17] MEDS: POLYETHYLENE (MIRALAX) 17 GM PACK PO PRN (18:09)
[2022-02-17] MEDS: DIGOXIN 0.125 MG TAB PO SCH (18:09)
--- NOTE | 2022-02-17 20:18 | Billing Data ---
Date of Service February 17, 2022 Coding Level of Care Code 53354 Subseq Hosp Care Lvl 3
[2022-02-17] MEDS: QUEtiapine FUMARATE 200 MG TAB PO SCH (20:44)
[2022-02-17] MEDS: traZODone HCL 100 MG TAB PO SCH (20:44)
--- NOTE | 2022-02-18 06:48 | Hospitalist Progress Note ---
Date of Service February 18, 2022 Assessment & Plan (1) Acute and chronic respiratory failure with hypoxia: Plan: 61yo F w/ hx of HFrEF who presents with acute shortness of breath. Acute on chronic CHF exacerbation, resolved - BNP significantly elevated from priors, and CXR with pulmonary edema. - Echo: 35-40% EF, severe MR, gigantic RA - Lasix 60 mg IV given in ER; Lasix 80 mg IV daily switched to 40mg PO daily (half home regimen) - Fluid restriction, Weights and I&Os, monitor Cr, neg 3L since admission - Appears euvolemic today, daily BMP to monitor kidney function - follows with heart clinic Constipation -Put in orders for as needed MiraLAX, senna, and Colace -Changed Miralax to 51g daily. -Continue to monitor Acute mental status change: resolved -Patient w/ reported periods of confusion noted by nursing as well as decreased urine output at times. -Treating constipation as above. Lasix dose lowered to 40mg daily. -Patient on Xarelto, Head CT w/o contrast ordered, motion with CT but no overt signs of bleeding or abnormality. -ABG with evidence of metabolic alkalosis and low PaO2, lactate 3.6, no overt signs of infection. -CXR w/ improvement to pulmonary edema, bibasilar atelectasis. -Blood cultures returned 1/2 staph, strep species most likely contaminate however await full results. -Lactate trended back down to 1.0 after patient being on supplemental O2 at her home 2-3L. -Most likely due to not being on home O2 given good improvement on 2L. Acute hypoxic resp failure - initially on BiPap, now on home O2 (2-3L) Nausea -Seems to be secondary to mucus production that she is spitting up -No active vomiting -Changed as needed Zofran to Phenergan given borderline QTc interval -Continue Mucinex for mucus. Anemia, stable Chronic anemia with hgb 9-10, but now with microcytosis. Iron studies from ~3 years ago indicated low iron. - anemia labs low - low concern for infection, cont. po iron qOD High anion gap metabolic acidosis, resolved ON admission, AG is 21 from normal on previous discharge. ABG showed a mild metabolic acidosis. Lactate of 7.0. Possible infection but source is unclear and vitals improved without abx. No focal pneumonia on CXR. Other MUDPILES causes seem unlikely as patient reports no ingestions, glucose not substantially e levated, BUN only mildly elevated. - Blood cultures neg, UA noninfectious - lactate now wnl - suspect acidosis due to CHF exacerbation; cannot exclude metformin induced however less likely - ABG with evidence of metabolic alkalosis and low PaO2. Nonischemic cardiomyopathy, stable Echo earlier this month showed EF 30 - 35%. Repeat as above. - Continue home metoprolol - Plan as above HTN (hypertension), stable BP wnl - Continue home metoprolol Diabetes type 2, controlled A1c of 6.4% last admission. - Hold metformin - Sliding scale insulin Bipolar disorder, stable Bipolar and anxiety. - Continue home hydroxyzine (lower dose, but increase frequency for hospital- related anxiety), continue home quetiapine - Continue home trazodone, but lower dose Atrial fibrillation, stable Now with pacemaker. - Continue Xarelto - Continue beta-julee and digoxin DVT ppx: xarelto FEN/GI: fluid restriction 1.5L, HH/DM2/low Na Code Status: full Dispo: med surg - PT/OT: recommend rehab - Placement Pending, patient back to baseline mental status. (2) High anion gap metabolic acidosis: (3) Anemia: (4) Nonischemic cardiomyopathy: (5) HTN (hypertension): (6) Bipolar disorder: (7) Diabetes type 2, controlled: (8) Atrial fibrillation, permanent: Admission and Anticipated Discharge Date Admission Date: February 08, 2022 Supervising Physician Co-Signing Physician Notes I personally examined the patient and verified all eugene points of history and exam, discussed case, and agree with decision making with Dr Li Sleeping comfortably when I see her. Awaiting SNF/rehab emphasis. Vitals noted, in general she resting comfortably, no distress. HEENT normocephalic atraumatic mucous membranes moist. Breathing unlabored no accessory muscle use good effort. Skin shows no rashes no pallor or icterus. Neuro without focal deficits. Deliriumlikely low oxygen mediatedseems to been remedied since oxygen is turned back on. Continue supportive care. weakness - for rehab once approved/available, stable once able to go otherwise as above Subjective Patient seen at the bedside today saying she feels better today and that the supplemental oxygen helps her feel better. She denies any trouble breathing, chest pain, fevers ,chills. She was eating breakfast when I came in and was tolerating it well. Patient stated she had a hard stool this morning that was a bit painful due to the hardness of it. Review of Systems Constitutional: as per Subjective / HPI Physical Exam Constitutional: WD/WN, vitals as above Respiratory: normal respiratory effort, lungs clear to auscultation Cardiovascular: Rate/Rhythm: regular rate and regular rhythm Heart Sounds: normal S1 and normal S2 Extremities: + edema (2+ pitting edema bilaterally ) Results & Data Results & Data ([facility]) Vital Signs (Past 12 Hours) Vital Signs Temp Pulse Resp BP Pulse Ox O2 Del Method O2 Flow Rate 02/17/22 21:57 36.8 C 63 18 110/59 L 94 Room Air 02/17/22 21:17 Nasal Cannula 2 Resident Activity Tracking Resident Involvement: Resident Care Provided Care Provided: Adult Hospital Medicine (1) Diabetes type 2, controlled Diabetes mellitus complication status: with unspecified complications Diabetes mellitus termite inspector insulin use: without fpc use Qualified Code(s): E11.8 - Type 2 diabetes mellitus with unspecified complications (2) HTN (hypertension) Hypertension type: essential hypertension Qualified Code(s): I10 - Essential (primary) hypertension
[2022-02-18] MEDS: QUEtiapine FUMARATE 100 MG TABLET PO SCH (08:23)
[2022-02-18] MEDS: METOPROLOL SUCC 50MG EXT REL TAB PO SCH (08:23)
[2022-02-18] MEDS: FUROSEMIDE 40 MG TAB PO SCH (08:23)
[2022-02-18] MEDS: ATORVASTATIN 10 MG TAB PO SCH (08:23)
[2022-02-18] MEDS: PANTOprazole 40 MG TAB PO SCH (08:24)
[2022-02-18] MEDS: BENZONATATE 100 MG CAPSULE PO SCH ×3 (08:26→20:06)
[2022-02-18] MEDS: UMECLIDINIUM/VILANTEROL 62.5/25MCG 7 PUFFS/INHALER INH SCH (08:27)
[2022-02-18] MEDS: DOCUSATE SODIUM 100 MG CAP PO SCH ×2 (08:27→20:06)
[2022-02-18] MEDS: INSULIN ASPART PER UNIT SC SCH ×4 (09:33→20:58)
[2022-02-18 11:23] LABS: BUN Creatinine Ratio 32.1 (10-20); Calcium 9.3 mg/dl (8.5-10.1); Creatinine Clr Calc Pharmacy 76.1 ml/min; Est GFR (African American) 66.1 ml/min; Potassium 3.2 mmol/L (3.5-5.1)
[2022-02-18] MEDS: POLYETHYLENE (MIRALAX) 17 GM PACK PO SCH (12:40)
[2022-02-18 13:10] LABS: Basophils # (auto) 0.03 K/uL (0-0.2); Basophils % (auto) 0.3 %; Eosinophils # (auto) 0.05 K/uL (0-0.50); Eosinophils % (auto) 0.5 %; Hematocrit (blood only) 35.2 % (34.1-44.9); Hemoglobin 10.9 g/dl (12.0-16.0); Immature Granulocytes # (auto) 0.03 K/uL (0.00-0.02); Immature Granulocytes % (auto) 0.3 %; Lymphocytes # (auto) 1.64 K/uL (1.2-3.4); Lymphocytes % (auto) 15.2 %; Mean Corpuscular Hemoglobin 23.8 pg (25.0-34.0); Mean Corpuscular Volume 76.9 fL (80.0-100.0); Mean Platelet Volume 9.6 fL (9.4-12.3); Monocytes % (auto) 10.2 %; Neutrophils # (auto) 7.94 K/uL (1.4-6.5); Neutrophils % (auto) 73.5 %; Nucleated RBC # (auto) 0.16 K/uL (0-0); Nucleated RBC % (auto) 1.5 %; Platelet Count 383 K/uL (130-400); RDW Coefficient of Variation 17.8 % (11.5-14.5); RDW Standard Deviation 48.3 fL (36.4-46.3); Red Blood Count 4.58 M/uL (3.93-5.22); White Blood Count 10.79 K/ul (4.8-10.8)
[2022-02-18] MEDS: DIGOXIN 0.125 MG TAB PO SCH (17:16)
[2022-02-18] MEDS: RIVAROXABAN 20 MG TAB PO SCH (17:16)
[2022-02-18] MEDS ORDERED: POTASSIUM CHLORIDE CRTAB 20 MEQ TABCR PO STA (17:24)
--- NOTE | 2022-02-18 18:10 | Billing Data ---
Date of Service February 18, 2022 Coding Level of Care Code 69951 Subseq Hosp Care Lvl 1
[2022-02-18] MEDS: CALCIUM CARBONATE 500 MG CHEWABLE TAB PO PRN (18:35)
[2022-02-18] MEDS: QUEtiapine FUMARATE 200 MG TAB PO SCH (20:06)
[2022-02-18] MEDS: traZODone HCL 100 MG TAB PO SCH (20:06)
[2022-02-19] MEDS: FERROUS SULFATE 325 MG TAB PO SCH (08:47)
[2022-02-19] MEDS: PANTOprazole 40 MG TAB PO SCH (08:47)
[2022-02-19] MEDS: QUEtiapine FUMARATE 100 MG TABLET PO SCH (08:47)
[2022-02-19] MEDS: ATORVASTATIN 10 MG TAB PO SCH (08:47)
[2022-02-19] MEDS: METOPROLOL SUCC 50MG EXT REL TAB PO SCH (08:47)
[2022-02-19] MEDS: UMECLIDINIUM/VILANTEROL 62.5/25MCG 7 PUFFS/INHALER INH SCH (08:47)
[2022-02-19] MEDS: FUROSEMIDE 40 MG TAB PO SCH (08:47)
[2022-02-19] MEDS: DOCUSATE SODIUM 100 MG CAP PO SCH (08:53)
[2022-02-19] MEDS: BENZONATATE 100 MG CAPSULE PO SCH ×2 (08:53→13:03)
[2022-02-19] MEDS: INSULIN ASPART PER UNIT SC SCH ×2 (08:58→13:03)
[2022-02-19] MEDS: POLYETHYLENE (MIRALAX) 17 GM PACK PO SCH (09:01)
[2022-02-19 10:20] LABS: BUN Creatinine Ratio 32.4 (10-20); Calcium 9.4 mg/dl (8.5-10.1); Creatinine Clr Calc Pharmacy 74.7 ml/min; Est GFR (African American) 64.6 ml/min; Est GFR (Non-African American) 55.8 ml/min; Potassium 3.6 mmol/L (3.5-5.1)
[2022-02-19] MEDS: traMADol HCL 50 MG TABLET PO PRN (11:53)
[2022-02-19] MEDS: hydrOXYzine HCl 25 MG TAB PO PRN (11:53)
[2022-02-19] MEDS: CALCIUM CARBONATE 500 MG CHEWABLE TAB PO PRN (12:52)
[2022-02-19] MEDS: DIGOXIN 0.125 MG TAB PO SCH (15:29)
[2022-02-19] MEDS: RIVAROXABAN 20 MG TAB PO SCH (15:29)
--- NOTE | 2022-02-19 15:51 | Discharge Summary ---
Date of Service February 19, 2022 Admission HPI Per Admitting Provider 61yo F w/ hx of HFrEF who presents with acute shortness of breath. The patient is wearing BiPap and has trouble communicating, but as best I can understand, she reports she was discharged and started feeling increasing shortness of breath within a few days after discharge. She reports that over the last few days, her shortness of breath increased significantly. She reports some increased cough and orthopnea. She had to turn up her home O2 as well just today. She reports that she has been taking her Lasix and other medications as prescribed. Reports 2 episodes of diarrhea two days ago after meds for constipation last admission, but otherwise none. No melena or hematochezia with it. No emesis. No dysuria or polyuria. Admission Exam Per Admitting Provider Constitutional: WD/WN, vitals as above + acute distress and + morbidly obese Eyes: EOM intact bilaterally; no conjunctival abnormality ENMT: external ear and nose normal, oropharynx normal Neck: trachea midline, no thyromegaly normal visual inspection Respiratory: + respiratory distress, + labored breath ing, + cough and + tachypneic Auscultation: + crackles; no wheezes Cardiovascular: RRR, no murmur, no edema Gastrointestinal (Abdomen): Inspection/Auscultation: abdomen normal to inspection; abdomen not distended Percussion/Palpation: abdomen soft; abdomen nontender, no guarding and abdomen not rigid Musculoskeletal: no cyanosis or clubbing, extremities motor strength 5/5 Skin: no rashes, warm and dry Neurologic: moves all extremities and awake Psychiatric: Orientation: alert, oriented to person and cooperative Principal Diagnosis Acute on chronic CHF exacerbation. Discharge Exam Constitutional WD/WN, vitals as above Respiratory normal respiratory effort, lungs clear to auscultation Cardiovascular Rate/Rhythm: regular rate and regular rhythm Heart Sounds: normal S1 and normal S2 Extremities: + edema (2+ pitting edema bilaterally ) Gastrointestinal (Abdomen) normal bowel sounds, soft, nontender, no hepatosplenomegaly Psychiatric A+Ox3, euthymic affect anxious at times. Discharge Data Allergies Allergy/AdvReac Type Severity Reaction Status Date / Time fentanyl Allergy Mild RASH,ITCHIN Verified 02/08/22 16:10 G Consultations 02/08/22 17:09 ED Decision to Admit Stat Ordered Studies 02/16/22 08:04 CT head/brain wo con Urgent Impression: No acute intracranial hemorrhage, no evidence of acute territorial infarction or other acute intracranial disease process. 02/16/22 19:59 IMPRESSION: 1. Mild pulmonary edema, improved since prior exam. 2. Small to moderate bilateral pleural effusions with associated bibasilar opacities which could reflect atelectasis or consolidation. 3. Stable cardiomegaly. Hospital Course (1) Acute and chronic respiratory failure with hypoxia: 61yo F w/ hx of HFrEF who presents with acute shortness of breath. Acute on chronic CHF exacerbation, resolved - BNP significantly elevated from priors, and CXR with pulmonary edema - improved over course w/ repeat CXR - Echo: 35-40% EF, severe MR, gigantic RA - Lasix 60 mg IV given in ER; Lasix 80 mg IV daily switched to 40mg PO daily (half home regimen) - neg 3L since admission, weight down ~2kg from admission. - Appears euvolemic - follows with heart clinic Constipation -Put in orders for as needed MiraLAX, senna, and Colace -Given a few daily doses of MiraLAX 51g daily while in hospital with good bowel movements. Acute mental status change: resolved -Patient w/ reported periods of confusion noted by nursing as well as decreased urine output at times. -Treating constipation as above. Lasix dose lowered to 40mg daily. -Patient on Xarelto, Head CT w/o contrast ordered, motion with CT but no overt signs of bleeding or abnormality. -ABG with evidence of metabolic alkalosis and low PaO2, lactate 3.6, no overt signs of infection. -CXR w/ improvement to pulmonary edema, bibasilar atelectasis. -Blood cultures returned 1/2 coag neg staph after 48hr; most likely contaminate. -Lactate trended back down to 1.0 after patient being on supplemental O2 at her home 2-3L. -Most likely due to not being on home O2 given good improvement on 2L. -Please keep on continuous 2-3L O2 despite O2 saturation WNL. Acute hypoxic resp failure - initially on BiPap, now on home O2 (2-3L) Nausea -Seems to be secondary to mucus production that she is spitting up -No active vomiting -Changed as needed Zofran to Phenergan given borderline QTc interval -Continue Mucinex for mucus High anion gap metabolic acidosis, resolved ON admission, AG is 21 from normal on previous discharge. ABG showed a mild metabolic acidosis. Lactate of 7.0. Possible infection but source is unclear and vitals improved without abx. No focal pneumonia on CXR. Other MUDPILES causes seem unlikely as patient reports no ingestions, glucose not substantially elevated, BUN only mildly elevated. - Blood cultures neg, UA noninfectious - lactate now wnl - suspect acidosis due to CHF exacerbation; cannot exclude metformin induced however less likely - PT/OT: recommend rehab - Patient went to [facility] [place] for rehab (2) High anion gap metabolic acidosis: (3) Anemia: (4) Nonischemic cardiomyopathy: (5) HTN (hypertension): (6) Bipolar disorder: (7) Diabetes type 2, controlled: (8) Atrial fibrillation, permanent: Total Time Total Time Spent Total Time Spent (In Minutes): <30. 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 Acute on chronic CHF exacerbation, resolved - BNP significantly elevated from priors, and CXR with pulmonary edema - improved over course w/ repeat CXR - Echo: 35-40% EF, severe MR, gigantic RA - Lasix 60 mg IV given in ER; Lasix 80 mg IV daily switched to 40mg PO daily (half home regimen) - Fluid restriction, Weights and I&Os, monitor Cr, neg 3L since admission, weight down ~2kg from admission. - Appears euvolemic, weights - follows with heart clinic Constipation -Put in orders for as needed MiraLAX, senna, and Colace -Given a few daily doses of MiraLAX 51g daily. Acute mental status change: resolved -Patient w/ reported periods of confusion noted by nursing as well as decreased urine output at times. -Treating constipation as above. Lasix dose lowered to 40mg daily. -Patient on Xarelto, Head CT w/o contrast ordered, motion with CT but no overt signs of bleeding or abnormality. -ABG with evidence of metabolic alkalosis and low PaO2, lactate 3.6, no overt signs of infection. -CXR w/ improvement to pulmonary edema, bibasilar atelectasis. -Blood cultures returned 1/2 coag neg staph after 48hr; most likely contaminate. -Lactate trended back down to 1.0 after patient being on supplemental O2 at her home 2-3L. -Most likely due to not being on home O2 given good improvement on 2L. -Please keep on continuous 2-3L O2 despite O2 saturation WNL. Acute hypoxic resp failure - initially on BiPap, now on home O2 (2-3L) Nausea -Seems to be secondary to mucus production that she is spitting up -No active vomiting -Changed as needed Zofran to Phenergan given borderline QTc interval -Continue Mucinex for mucus. Anemia, stable Chronic anemia with hgb 9-10, but now with microcytosis. Iron studies from ~3 ye ars ago indicated low iron. - anemia labs low - low concern for infection, cont. po iron qOD High anion gap metabolic acidosis, resolved ON admission, AG is 21 from normal on previous discharge. ABG showed a mild metabolic acidosis. Lactate of 7.0. Possible infection but source is unclear and vitals improved without abx. No focal pneumonia on CXR. Other MUDPILES causes s eem unlikely as patient reports no ingestions, glucose not substantially elevated, BUN only mildly elevated. - Blood cultures neg, UA noninfectious - lactate now wnl - suspect acidosis due to CHF exacerbation; cannot exclude metformin induced however less likely Nonischemic cardiomyopathy, stable Echo earlier this month showed EF 30 - 35%. Repeat as above. - Continue home metoprolol - Plan as above HTN (hypertension), stable BP wnl - Continue home metoprolol Diabetes type 2, controlled A1c of 6.4% last admission. - Hold metformin - Sliding scale insulin Bipolar disorder, anxiety, stable - Continue home hydroxyzine (lower dose, but increase frequency for hospital- related anxiety 25mg), continue home quetiapine - Continue home trazodone, but lower dose (100mg qhs, 50mg) Atrial fibrillation, stable - Has pacemaker. - Continue Xarelto - Continue beta-julee and digoxin Pending Studies at Discharge: No Stand-Alone Forms: My [facility] Skilled Items Patient informed of condition?: Yes DNR: No Discharge Level of Care: Skilled Communicable Disease: No Discharge Prognosis: Stable Lines: None Urinary Catheter: No Medications and DC Order Prescriptions: Continued metformin 500 mg tablet 500 mg PO BID Qty: 60 5RF quetiapine [Seroquel] 400 mg tablet 400 mg PO HS (DME) Portable Oxygen Misc See Rx Instructions .MEDSUPPLY Qty: 1 0RF Rx Instructions: Oxygen 3 liters continuous with portable concentrator. MARGE 99 atorvastatin 10 mg tablet 10 mg PO QAM Qty: 90 3RF digoxin 125 mcg (0.125 mg) tablet 125 mcg PO QAM Qty: 90 3RF pregabalin 150 mg capsule 150 mg PO BID 30 Days Qty: 60 5RF docusate sodium [Colace] 100 mg capsule 100 mg PO BID Qty: 180 3RF (DME) Incentive Spirometer Misc See Rx Instructions .MEDSUPPLY Qty: 1 0RF Rx Instructions: As directed diclofenac sodium [Voltaren Arthritis Pain] 1 % gel 2 g topical QID PRN (Reason: arthritis) trazodone 100 mg tablet 200 mg PO HS quetiapine [Seroquel] 100 mg Tablet 100 mg PO QAM (DME) Oxygen Home Liters Per Minute See Rx Instructions .ROUTE .MEDSUPPLY Qty: 1 0RF Rx Instructions: As directed - 2 liters continuously magnesium oxide 400 mg (241.3 mg magnesium) tablet 400 mg PO QAM hydroxyzine HCl 50 mg Tablet 50 mg PO QPM PRN (Reason: Anxiety) Xarelto 20 mg tablet 20 mg PO QDD Qty: 90 2RF Rx Instructions: take with food at dinner time potassium chloride 10 mEq tablet extended release 10 meq PO DAILY Qty: 30 0RF furosemide 40 mg tablet 80 mg PO QAM metoprolol succinate 100 mg tablet extended release 24 hr 100 mg PO QAM tramadol 50 mg tablet 50 mg PO QAM PRN (Reason: pain) omeprazole 20 mg capsule,delayed release(DR/EC) 20 mg PO QAM Anoro Ellipta 62.5-25 mcg/actuation blister with device 1 inh INH QAM Discharge Orders: Discharge Order (Routine); Ordered 02/19/22 Ordered By: Mickey Li Admission Data Admit Date/Time: 02/08/22 17:38 Attending Provider: Chito Chamberlain Admit Provider: Eamon Rose Primary Care Provider: Antonio Oliver V. Other Providers: [facility] ; [place] ; Eamon Rose ; Filipe Rosario Other Interventions: Discharge Summary Assessment (RN) Last Done: 02/19/22 15:48 Supervising Physician Co-Signing Physician Notes I personally examined the patient and verified all eugene points of history and exam, discussed case, and agree with decision making with Dr Li for snf today. no new complaints. Vitals noted, in general she resting comfortably, no distress. HEENT normocephalic atraumatic mucous membranes moist. Breathing unlabored no accessory muscle use good effort. Skin shows no rashes no pallor or icterus. Neuro without focal deficits. Deliriumlikely low oxygen mediatednow remedied since oxygen is turned back on. stable for snf. weakness - for snf/rehab emphasis today otherwise as above Resident Activity Tracking Resident Involvement: Resident Care Provided Care Provided: Adult Hospital Medicine
--- NOTE | 2022-02-19 17:08 | Billing Data ---
Date of Service February 19, 2022 Coding Level of Care Code D/C DAY MANAGEMENT <30 MINS
== END 2022-02-19 17:12 | DRG 291 ==
LOC: ED 15:12 → 2E 17:38 → SUATTDRO 17:38 → 2E 20:08 → 3N 02-13 10:12